=== PATIENT | female | born 1970 | race Caucasian/White ===

== ENCOUNTER → 2017-03-04 | Day surgery (SDC) | payer OTHER ==
[2017-03-01 10:11] VITALS: Ht 157.5 cm; Wt 62.7 kg
[~2017-03-04] VITALS: Ht 157.5 cm; Wt 62.7 kg
[~2017-03-04] MED LIST: 500ML BSSPLUS 0.5ML EPI1:1000 IRRIG ONE; ACETAMINOPHEN 325 MG TAB PO PRN; ASPI81TA28 PO; ATROPINE SULFATE 0.1 MG/ML 5ML SYR IV PRN; ATROPINE SULFATE 1% OP OINT PER APPLICATION CHARGE ONE; ATROPINE SULFATE 1% OP SOLN 2 ML BTL ONE; BSS FLUSH ONE; BUPIVACAINE HCL 0.75% 10 ML AMP/VIAL ONE; BUSP15TA70 PO; CARV25TA PO; CEFAZOLIN SOD 1 GM VIAL ONE; CHOL1TAB42 PO; DEXAMETHASONE SOD INJ 4 MG/ML VIAL ONE; DEXTROSE 50% 50 ML SYR ONE; DIVA250T PO; EpHEDrine SULFATE INJ 50 MG/ML AMP IV PRN; EpINEphrine INJ 1MG/ML AMP 1 MG/ML AMP ONE; FENTANYL CITRATE INJ 50 MCG/1 ML 2 ML VIAL ONE; FERR1TAB23 PO; FURO80TA63 PO; HYALURONIDASE HUMAN 150 UNIT/ML INJ ONE; HYDR-4715 PO; INSDGI SC; LABETALOL HCL IV 5 MG/ML 20ML IV ONE; LACTATED RINGER'S 1000ML 500 ML IV SCH; LIDOCAINE HCL 2% 2 ML VIAL (20MG/ML) ONE; LIDOCAINE HCL 2% LOCAL 20 ML VIAL ONE; LIDOCAINE MPF 4% INJ INJ ONE; MIDAZOLAM HCL 1 MG/ML 2ML VIAL ONE; MULT-506 PO; NEOMYCIN/POLYMYX/DEXAMETH OP OINT PER APP CHARGE ONE; NIFE1TAB55 PO; NORT75CA2 PO; NVLG SQ; OCUCOAT 1 ML SOLN IO ONE; OMEP40CA41 PO; ONDA4TAB46 PO; ONDANSETRON INJ 2 MG/ML 2 ML VIAL ONE; POVIDONE-IODINE OP SOLN (SURGERY CNTR CHARGING ONLY) ONE; PROPARACAINE 0.5% OP SOLN PER DROP CHARGE OPR SCH; PROPOFOL IV EMULSION 10 MG/ML 20 ML VIAL IV ONE; SENN-61 PO; TIMOLOL MALEATE 0.5% OP SOLN PER DROP CHARGE ONE; TRIAMCINOLONE ACETONIDE OPHTH 40 MG/ML VIAL STERILE IO ONE
[2017-03-04] MEDS: PHENYLEPHRINE HCL 2.5% OP SOLN PER DROP CHARGE OPR SCH ×2 (06:38→06:44)
[2017-03-04] MEDS: TROPICAMIDE 1% OP SOLN PER DROP CHARGE OPR SCH ×2 (06:39→06:45)
--- NOTE | 2017-03-04 07:00 | History & Physical Bridge - SC ---
H&P Re-Evaluation Bridge Note: pt has diabetic retinopathy with a retinal detachment in right eye and is here for repair with vitrectomy right eye. I have examined the patient, reviewed the History & Physical and in the interval since the performance of the History & Physical I have noted the following changes of clinical significance: No changes noted
[2017-03-04 09:21] VITALS: TEMP 36.4
--- NOTE | 2017-03-04 09:29 | [facility] Operative Report ---
Operative Report Date of Service Mar 04, 2017. 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 PROCEDURE: 1. Pars plana vitrectomy, 23 gauge. 2. Membrane peeling. 3. Segmentation of traction. 4. Carlos retinal photocoagulation with endolaser. 5. Fluid air exchange. 6. Gas exchange with C3F8 12%. All to the right eye. CPT CODE: 51098 SURGEON: Vu Calixto D.O. COMPLICATIONS: None. ESTIMATED BLOOD LOSS: None. SPECIMENS: None. ANESTHESIA: Retrobulbar block and MAC INDICATIONS FOR PROCEDURE: Surgery is indicated to decrease risk of vision loss and potentially improve vision. CONSENT: The risks, benefits and alternatives were discussed with the patient including but not limited to decreased visual acuity, failure to achieve desired results, loss of the eye, infection, pain, glaucoma, lens changes, retinal tears, retinal detachment, the need for more procedures, drooping of the eyelid, blindness, and double vision. The patient is aware of risks and consents to the surgery. Consent is signed and on the chart. OPERATION AND FINDINGS: The patient was brought to the operating room where the patient was identified by name, date, and medical record number. The surgical site was confirmed with the informed written consent. The patient was sedated by the anesthesiology team after which a 50:50 mixture of 2% lidocaine and 0.75% bupivacaine with hyaluronidase was administered in a standard retrobulbar fashion. A total of 4 ml was administered without difficulty. The patient was then prepped and draped in the usual sterile manner for retinal surgery. A wire lid speculum was placed and an Everett 23-gauge trocar cannula system was employed. The inferior temporal trocar cannula was first placed in an angled fashion 3.75mm posterior to the surgical limbus and the infusion cannula was inserted into this cannula after which the intravitreal position was verified prior to turning the infusion on. Two more trocar cannulas were then inserted in an angled fashion, one in the superior temporal, and one in the superior nasal quadrant both 3.75mm posterior to the surgical limbus. A 25gauge chandelier light was placed inferonasally. A light pipe and vitrector were then introduced into the eye and the BIOM wide angle viewing system was brought into place. Posterior inspection revealed proliferative diabetic retinopathy with extensive tractional retinal detachments in the midperiphery. Standard vitrectomy was performed and the the vitrector was used to segment as much of the vitreous/ diabetic membranes as possible. Next, a flat contact lens was placed on the surface of the eye and forceps and scissors and the vitrector were used to peel and segment the diabetic membranes causing the tractional detachment. The prism lens was also used. Endolaser was used to perform carlos retinal photocoagulation in the areas where the retina was completely flat. Intraocular cautery was used throughout the case to achieve hemostasis. A fluid air exchange was performed and the retinal detachment was drained through a small retinotomy fashioned superior to the arcades. An air gas exchange was performed with C3F8 12% and posterior subTenon's injection of Triescence 20mg was placed inferior temporally. The trocar cannulas were then removed and found to be air tight. The intraocular pressure was found to be within normal limits by palpation and subconjunctival injections of Kefzol and dexamethasone were administered inferiorly and superiorly. The wire lid speculum was removed. Timolol, Maxitrol and Atropine were applied to the surface of the eye. A light patch and shield were taped over the surface of the eye and the patient left the Operating Room in stable condition having tolerated the procedure well. DISPOSITION: The patient has an appointment the following morning in the Ophthalmology Clinic. The patient is to call immediately if there are any problems overnight. A gas bracelet was placed. I attest to the content of the Intraoperative Record and any orders documented therein. Any exceptions are noted below.
--- NOTE | 2017-03-04 09:30 | Discharge Instructions-SurgCtr ---
Discharge Instructions Date of Service Mar 04, 2017. Visit Reason for Visit: Right Eye Diabetic Retinopathy, Retinal Detachment Discharge Discharge Diagnosis / Problem: same Discharge Goals Goal(s): Improve function Medications Stopped Medications Name(s): no insulin this am Activity Recommendations Activity Limitations: per Instructions/Follow-up section Anesthesia . Post Anesthesia Instructions: If you have had General Anesthesia or IV Sedation: * Do not drive today. * Resume driving when surgeon permits. * Do not make important decisions or sign legal documents today. * Call surgeon for: 1. Temperature elevations greater than 101 degrees F. 2. Uncontrollable pain. 3. Excessive bleeding. 4. Persistent nausea and vomiting. 5. Medication intolerance (nausea, vomiting or rash). * For nausea and vomiting use only clear liquids such as: tea, soda, bouillon until nausea subsides, then gradually increase diet as tolerated. * If you have any concerns or questions, call your surgeon's office. If physician is unavailable and it is an emergency, call 911 or go to the nearest emergency room. . Instructions / Follow-Up Instructions / Follow-Up * May take Tylenol if needed for discomfort. * Do NOT lay flat on back and position head as follows: Face forward, chin down during daytime as much as possible. Sleep on either side * Do NOT remove green bracelet until instructed to do so by your surgeon and follow these precautions: * No air travel * No travel above 2500 feet * No nitrous oxide (N2O). * Do NOT remove eye shield. * NO straining, heavy lifting (>15 pounds) or bending below waist. * Avoid getting water or soap directly into operative eye. * Do NOT rub eye. If you experience increasing eye pain not relieved by medication, please contact us immediately at [phone]. If you are unable to reach someone at the above number, call [phone] and ask to speak with the EYE DOCTOR CANCER SPEC. Inform them that you are a Dr. Calixto patient who had recent surgery. Diet Recommendations Home Diet: resume previous diet Procedures Procedures Performed: Right Eye Vitrectomy 23 Gauge With Laser & Gas Insertion, Membrane Peeling, Segmentation Pending Studies Studies pending at discharge: no Medical Emergencies . Who to Call and When: Medical Emergencies: If at any time you feel your situation is an emergency, please call 911 immediately. . Non-Emergent Contact Non-Emergency issues call your: Warping Machine Operator . . "Provider Documentation" section prepared by Vu Calixto. .
[2017-03-04 10:03] VITALS: BP 155/84; PULSE 66; O2SAT 98
--- NOTE | 2017-03-04 10:14 | Anesthesia Progress Nt - [facility] ---
Anesthesia Post Op Note Date & Time Mar 04, 2017 at 10:14 Vital Signs Pain Intensity: 2 Vital Signs Past 12 Hours Date Time Temp Pulse Resp B/P (MAP) Pulse Ox O2 Delivery O2 Flow Rate FiO2 03/04/17 10:03 66 16 155/84 (107) 98 Room Air 03/04/17 09:21 36.4 73 16 198/81 (120) 99 Room Air 03/04/17 06:29 36.9 99 16 157/74 (101) 99 Room Air Notes Mental Status: alert / awake / arousable, participated in evaluation Pt Amnestic to Procedure: Yes Nausea / Vomiting: adequately controlled Pain: adequately controlled Airway Patency, RR, SpO2: stable & adequate BP & HR: stable & adequate Hydration State: stable & adequate Anesthetic Complications: no major complications apparent
== END | disposition home or self-care (01) ==
LOC: X.SURG 06:10
PROVIDERS: ATTEND Ophthalmology
DX: E10.3531 Type 1 diabetes mellitus with proliferative diabetic retinopathy with traction retinal detachment not involving the macula, right eye (principal); E10.40 Type 1 diabetes mellitus with diabetic neuropathy, unspecified; E10.22 Type 1 diabetes mellitus with diabetic chronic kidney disease; K31.84 Gastroparesis; E10.43 Type 1 diabetes mellitus with diabetic autonomic (poly)neuropathy; I25.10 Atherosclerotic heart disease of native coronary artery without angina pectoris; I50.32 Chronic diastolic (congestive) heart failure; I13.0 Hypertensive heart and chronic kidney disease with heart failure and stage 1 through stage 4 chronic kidney disease, or unspecified chronic kidney disease; N18.4 Chronic kidney disease, stage 4 (severe); D63.1 Anemia in chronic kidney disease; E78.5 Hyperlipidemia, unspecified; J44.1 Chronic obstructive pulmonary disease with (acute) exacerbation; J96.01 Acute respiratory failure with hypoxia; E55.9 Vitamin D deficiency, unspecified; D50.9 Iron deficiency anemia, unspecified; K21.9 Gastro-esophageal reflux disease without esophagitis; E87.0 Hyperosmolality and hypernatremia; F31.9 Bipolar disorder, unspecified; Z87.891 Personal history of nicotine dependence; Z79.4 Long term (current) use of insulin; Z79.82 Long term (current) use of aspirin; Z79.899 Other long term (current) drug therapy

== ENCOUNTER 2017-09-09 15:20 | Inpatient (IN) | payer OTHER ==
[~2017-09-09] VITALS: Ht 157.5 cm; Wt 71.8 kg
[~2017-09-09 15:20] MED LIST changes: -500ML BSSPLUS 0.5ML EPI1:1000 IRRIG ONE; -ACETAMINOPHEN 325 MG TAB PO PRN; -ATROPINE SULFATE 0.1 MG/ML 5ML SYR IV PRN; -ATROPINE SULFATE 1% OP OINT PER APPLICATION CHARGE ONE; -ATROPINE SULFATE 1% OP SOLN 2 ML BTL ONE; -BSS FLUSH ONE; -BUPIVACAINE HCL 0.75% 10 ML AMP/VIAL ONE; -CEFAZOLIN SOD 1 GM VIAL ONE; -DEXAMETHASONE SOD INJ 4 MG/ML VIAL ONE; -DEXTROSE 50% 50 ML SYR ONE; -EpHEDrine SULFATE INJ 50 MG/ML AMP IV PRN; -EpINEphrine INJ 1MG/ML AMP 1 MG/ML AMP ONE; -FENTANYL CITRATE INJ 50 MCG/1 ML 2 ML VIAL ONE; -HYALURONIDASE HUMAN 150 UNIT/ML INJ ONE; -LABETALOL HCL IV 5 MG/ML 20ML IV ONE; -LACTATED RINGER'S 1000ML 500 ML IV SCH; -LIDOCAINE HCL 2% 2 ML VIAL (20MG/ML) ONE; -LIDOCAINE HCL 2% LOCAL 20 ML VIAL ONE; -LIDOCAINE MPF 4% INJ INJ ONE; -MIDAZOLAM HCL 1 MG/ML 2ML VIAL ONE; -NEOMYCIN/POLYMYX/DEXAMETH OP OINT PER APP CHARGE ONE; -NIFE1TAB55 PO; +NIFE60TA66 PO; -OCUCOAT 1 ML SOLN IO ONE; -ONDANSETRON INJ 2 MG/ML 2 ML VIAL ONE; -POVIDONE-IODINE OP SOLN (SURGERY CNTR CHARGING ONLY) ONE; -PROPARACAINE 0.5% OP SOLN PER DROP CHARGE OPR SCH; -PROPOFOL IV EMULSION 10 MG/ML 20 ML VIAL IV ONE; -TIMOLOL MALEATE 0.5% OP SOLN PER DROP CHARGE ONE; -TRIAMCINOLONE ACETONIDE OPHTH 40 MG/ML VIAL STERILE IO ONE
--- NOTE | 2017-09-09 15:47 | DIAGNOSTIC IMAGING REPORT ---
CHEST ONE VIEW PORTABLE CLINICAL HISTORY: 47 years-old Female presenting with cp. TECHNIQUE: Portable upright AP view of the chest was obtained. COMPARISON: None. FINDINGS: Cardiopericardial silhouette mildly enlarged allowing for portable technique. No focal opacity. No large effusion or pneumothorax. Osseous structures normal. Upper abdomen normal. IMPRESSION: 1. Cardiopericardial silhouette mildly enlarged allowing for portable technique. This could indicate cardiomegaly or be artifactual related to AP technique. Dedicated PA and lateral views to be considered if clinically indicated. Electronically signed by: Trey Jones M.D. 09/09/2017 3:46 PM Dictated Date/Time: 09/09/2017 3:45 PM
[2017-09-09 16:30] LABS: BASO % 0.6 %; BASO ABS # 0.04 K/uL (0-0.2); EOS ABS # 0.07 K/uL (0-0.5); HEMATOCRIT 24.4 % (37-47); HEMOGLOBIN 8.4 g/dL (12.0-16.0); IG# 0.05 K/uL (0.00-0.02); LYMPH % 24.6 %; LYMPH ABS # 1.71 K/uL (1.2-3.4); MEAN CELL VOLUME 86.2 fL (80-100); MEAN CORPUSCULAR HEMOGLOBIN 29.7 pg (25-34); MEAN CORPUSCULAR HGB CONC 34.4 g/dl (32-36); MEAN PLATELET VOLUME 10.3 fL (7.4-10.4); MONO % 9.1 %; MONO ABS # 0.63 K/uL (0.11-0.59); NEUT ABS # 4.44 K/uL (1.4-6.5); PLATELET COUNT 302 K/uL (130-400); RED CELL DISTRIBUTION WIDTH SD 41.7 fL (36.4-46.3); WHITE BLOOD COUNT 6.94 K/uL (4.8-10.8)
[2017-09-09 16:40] LABS: PTT PATIENT 27.5 SECONDS (21.0-31.0)
[2017-09-09] MEDS ORDERED: DIVA500T59 PO (16:40)
[2017-09-09] MEDS ORDERED: ASPCH81X PO (16:40)
[2017-09-09] MEDS ORDERED: ATOR-24 PO (16:40)
[2017-09-09] MEDS ORDERED: HYDR-4716 PO (16:40)
[2017-09-09] MEDS ORDERED: FLUT1INH7 INH (16:40)
[2017-09-09] MEDS ORDERED: AMLO-114 PO (16:48)
[2017-09-09] MEDS ORDERED: CHOL20007 PO (16:48)
[2017-09-09] MEDS ORDERED: SUCR1TAB PO (16:48)
[2017-09-09] MEDS ORDERED: OXYC-609 PO (16:48)
[2017-09-09] MEDS ORDERED: PANT1TAB3 PO (16:48)
[2017-09-09] MEDS ORDERED: MULTTAB PO (16:48)
[2017-09-09] MEDS ORDERED: SODIENE PR (16:56)
[2017-09-09] MEDS ORDERED: POLY335019 PO (16:56)
[2017-09-09] MEDS ORDERED: DOCU100C31 PO (16:56)
[2017-09-09] MEDS ORDERED: DEXT40GE20 PO (16:56)
[2017-09-09] MEDS ORDERED: MOML PO (16:56)
[2017-09-09] MEDS ORDERED: SENN-65 PO (16:56)
[2017-09-09] MEDS ORDERED: BISA10SU5 PR (16:56)
[2017-09-09] MEDS ORDERED: INSDGIPEN SC (17:02)
[2017-09-09] MEDS ORDERED: GLGKIT SC (17:04)
[2017-09-09] MEDS ORDERED: ACET-1256 PO (17:04)
[2017-09-09] MEDS ORDERED: ALBU18002 INH (17:05)
[2017-09-09 17:06] LABS: CALCIUM 8.5 mg/dl (8.5-10.1); CREATININE 4.46 mg/dl (0.60-1.20); POTASSIUM 5.7 mmol/L (3.5-5.1)
[2017-09-09] MEDS ORDERED: NovoLIN-R INSULIN PER UNIT CHARGE IV STA (17:14)
[2017-09-09] MEDS ORDERED: MoRPHine SULFATE 2 MG/ML CARP IV STA (17:14)
[2017-09-09] MEDS ORDERED: ONDANSETRON INJ 2 MG/ML 2 ML VIAL IV PRN (18:00)
[2017-09-09] MEDS ORDERED: INSULIN IV INFUSION PROTOCOL SCH (18:06)
[2017-09-09] MEDS ORDERED: insulin pump (18:10)
[2017-09-09] MEDS ORDERED: PHARMACY GLYCEMIC MGMT CONSULT PRN (18:10)
[2017-09-09] MEDS ORDERED: DOCUSATE SODIUM 100 MG CAP PO PRN (18:15)
[2017-09-09] MEDS ORDERED: INSULIN PROTOCOL GOAL RANGE ONE (18:15)
[2017-09-09] MEDS ORDERED: SEVERE STRESS LEVEL ONE (18:15)
[2017-09-09] MEDS ORDERED: POLYETHYLENE (MIRALAX) 17 GM PACK PO PRN (18:15)
[2017-09-09] MEDS ORDERED: INSULIN REGULAR 250 UNITS in SODIUM CHLORIDE 0.9% 250ML 250 ML IV SCH (18:45)
[2017-09-09] MEDS ORDERED: NovoLIN R BOLUS FROM BAG IV ONE (18:45)
--- NOTE | 2017-09-09 19:29 | History and Physical ---
History & Physical Date & Time of Service: Sep 09, 2017 ~ 17:30 Chief Complaint: Hyperglycemcia Primary Care Physician: Mitchel Santo M.D. History of Present Illness Source: patient 47-year-old female who presents to the ED with hyperglycemia. She is currently at [facility] for rehab from a recent stroke. Patient was admitted to [facility] 08/26 through 09/03 for acute CVA. 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 Patient did receive TPA. Patient is a type I diabetic with insulin pump. Patient reports that approximately 4 days ago her insulin pump cartridge had run out. She is being treated with subcu insulin over the weekend at [facility]. However blood sugars have been persistently elevated in the 4-500s. Patient reports intermittent episodes of midsternal chest pain. She reports that this typically occurs whenever her blood sugar is extremely elevated. She reports the chest pain is brief and resolves on its own. No exertional components. She denies shortness of breath and palpitations. She denies lightheadedness, dizziness, diaphoresis, and syncopal events. She has had some mild nausea but she denies any vomiting, abdominal pain or diarrhea. She denies any fever or chills. No urinary symptoms. In the ED, patient's blood sugars found to be 474. She was given IV insulin. Initial troponin is negative and EKG does not show any acute ST changes. Past Medical/Surgical History Medical Problems: (1) Anemia due to chronic kidney disease Status: Chronic (2) Bipolar disorder Status: Chronic (3) CKD (chronic kidney disease), stage IV Status: Chronic (4) Coronary artery disease Permanent Comment: 2015 - cardiac catheterization showing nonobstructive coronary disease Stress test 06/2017 - possible small area of ischemia in the anterior wall Status: Chronic (5) CVA (cerebral vascular accident) Status: Chronic (6) Depression Status: Chronic (7) Diabetic gastroparesis Status: Chronic (8) Diastolic heart failure Status: Chronic (9) DM type 1 (diabetes mellitus, type 1) Status: Chronic (10) GERD (gastroesophageal reflux disease) Status: Chronic (11) History of GI bleed Status: Chronic (12) Hyperlipidemia Status: Chronic (13) Hypertension Status: Chronic (14) Seizure Status: Chronic Surgical Problems: (1) Hx of appendectomy Status: Chronic (2) Hx of cholecystectomy Status: Chronic (3) Hx of tubal ligation Status: Chronic Family History Diabetes mellitus FATHER Hypertension MOTHER Social History Smoking Status: Former Smoker Alcohol Use: none Immunizations History of Influenza Vaccine: Yes Influenza Vaccine Date: Feb 15, 2017 History of Tetanus Vaccine?: Yes Tetanus Immunization Date: Feb 15, 2017 History of Pneumococcal: Yes Pneumococcal Date: Feb 21, 2017 Allergies Coded Allergies: Fish (Verified Allergy, Mild, hives, 03/04/17) Latex (Verified Allergy, Mild, hives, 03/04/17) Home Medications Scheduled Amlodipine (Norvasc), 10 MG PO DAILY Aspirin (Aspirin Chewable), 81 MG PO DAILY Atorvastatin (Lipitor), 40 MG PO DAILY Carvedilol (Coreg), 25 MG PO BIDM Cholecalciferol (Vitamin D3), 2,000 INTER.UNIT PO DAILY Divalproex Sodium (Depakote), 500 MG PO Q12 Ferrous Sulfate (Iron), 325 MG PO TIDM Fluticasone Furoate-Vilanterol (Breo Ellipta 200-25 Mcg/INH), 1 PUFF INH DAILY Hydralazine HCl (Hydralazine HCl), 50 MG PO QID Insulin Aspart (Novolog), 1 DOSE SQ QID Insulin Glargine (Lantus Solostar), 10 UNITS SC BID Multivitamins/Minerals (Mvi With Minerals), 1 TAB PO DAILY Nortriptyline Hcl (Pamelor), 75 MG PO HS Pantoprazole (Protonix), 40 MG PO DAILY Sennosides-Docusate Sodium (Senokot S), 1 TAB PO DAILY Sucralfate (Sucralfate), 1 GM PO DAILY Scheduled PRN Acetaminophen (Tylenol), 500 MG PO Q4H PRN for Pain Albuterol Sulfate (Proair Respiclick), 2 PUFFS INH Q4H PRN for Wheezing Bisacodyl (Bisacodyl), 1 SUPP PA DAILY PRN for Constipation Dextrose (Diabetic Use) (Glucose), 1 TUBE PO UD PRN for Hypoglycemia Protocol Docusate Sodium (Docusate Sodium), 100 MG PO BID PRN for Constipation Glucagon (Glucagon Emergency Kit), 1 MG SC UD PRN for Hypoglycemia Protocol Magnesium Hydroxide (Milk Of Magnesia), 30 ML PO DAILY PRN for Constipation Ondansetron Hcl (Zofran), 4 MG PO Q8 PRN for Nausea or Vomiting Oxycodone HCl (Oxycodone HCl), 2.5 MG PO Q8 PRN for Pain Polyethylene Glycol 3350 (Miralax), 17 GM PO DAILY PRN for Constipation Sodium Phosphate/Biphosphate (Fleet Enema), 1 EA PA DAILY PRN for Constipation Miscellaneous Medications [insulin pump] Review of Systems ROS per HPI, all other systems reviewed and negative Physical Exam Vital Signs Date Time Temp Pulse Resp B/P (MAP) Pulse Ox O2 Delivery O2 Flow Rate FiO2 09/09/17 17:45 69 146/62 09/09/17 16:55 66 149/62 100 09/09/17 15:27 68 09/09/17 15:25 36.7 67 139/65 100 Room Air General Appearance: WD/WN, no apparent distress Head: normocephalic, atraumatic Eyes: normal inspection, EOMI, sclerae normal ENT: hearing grossly normal, + pertinent finding (Mucous membranes moist) Neck: supple, no JVD, trachea midline Respiratory/Chest: lungs clear, normal breath sounds, no respiratory distress Cardiovascular: regular rate, rhythm, no edema, normal peripheral pulses Abdomen/GI: normal bowel sounds, non tender, soft, no organomegaly Extremities/Musculoskelatal: normal inspection, no calf tenderness, normal capillary refill Neurologic/Psych: no motor/sensory deficits, alert, normal mood/affect, oriented x 3 Skin: normal color, warm/dry Diagnostics Laboratory Results Results Past 24 Hours Test 09/09/17 16:10 09/09/17 16:16 09/09/17 17:05 09/09/17 17:22 Range/Units White Blood Count 6.94 4.8-10.8 K/uL Red Blood Count 2.83 4.2-5.4 M/uL Hemoglobin 8.4 12.0-16.0 g/dL Hematocrit 24.4 37-47 % Mean Corpuscular Volume 86.2 80-100 fL Mean Corpuscular Hemoglobin 29.7 25-34 pg Mean Corpuscular Hemoglobin Concent 34.4 32-36 g/dl Platelet Count 302 130-400 K/uL Mean Platelet Volume 10.3 7.4-10.4 fL Neutrophils (%) (Auto) 64.0 % Lymphocytes (%) (Auto) 24.6 % Monocytes (%) (Auto) 9.1 % Eosinophils (%) (Auto) 1.0 % Basophils (%) (Auto) 0.6 % Neutrophils # (Auto) 4.44 1.4-6.5 K/uL Lymphocytes # (Auto) 1.71 1.2-3.4 K/uL Monocytes # (Auto) 0.63 0.11-0.59 K/uL Eosinophils # (Auto) 0.07 0-0.5 K/uL Basophils # (Auto) 0.04 0-0.2 K/uL RDW Standard Deviation 41.7 36.4-46.3 fL RDW Coefficient of Variation 13.0 11.5-14.5 % Immature Granulocyte % (Auto) 0.7 % Immature Granulocyte # (Auto) 0.05 0.00-0.02 K/uL Red Blood Cell Morphology Unremarkable Prothrombin Time 10.0 9.0-12.0 SECONDS Prothromb Time International Ratio 1.0 0.9-1.1 Activated Partial Thromboplast Time 27.5 21.0-31.0 SECONDS Partial Thromboplastin Ratio 1.1 Venous Blood pH 7.32 7.36-7.41 Venous Blood Partial Pressure CO2 43 38.0-50.0 mmHg Venous Blood Partial Pressure O2 42 mmHg Venous Blood HCO3 22 mmol/L Venous Blood Oxygen Saturation 71.9 % Venous Blood Base Excess -3.8 mEq/L Sodium Level 128 136-145 mmol/L Potassium Level 5.7 3.5-5.1 mmol/L Chloride Level 96 98-107 mmol/L Carbon Dioxide Level 20 21-32 mmol/L Anion Gap 12.0 3-11 mmol/L Blood Urea Nitrogen 67 7-18 mg/dl Creatinine 4.46 0.60-1.20 mg/dl Est Creatinine Clear Calc Drug Dose 14.0 ml/min Estimated GFR () 12.6 Estimated GFR (Non- 10.8 BUN/Creatinine Ratio 14.9 10-20 Random Glucose 474 70-99 mg/dl Calcium Level 8.5 8.5-10.1 mg/dl Beta-Hydroxybutyric Acid 0.90 0.2-2.81 mg/dL Bedside Troponin I < 0.030 0-0.045 ng/ml Urine Color YELLOW Urine Appearance CLEAR CLEAR Urine pH 5.0 4.5-7.5 Urine Specific [place] 1.020 1.000-1.030 Urine Protein 3+ NEG Urine Glucose (UA) 3+ NEG Urine Ketones NEG NEG Urine Occult Blood NEG NEG Urine Nitrite NEG NEG Urine Bilirubin NEG NEG Urine Urobilinogen NEG NEG Urine Leukocyte Esterase NEG NEG Urine WBC (Auto) 1-5 0-5 /hpf Urine RBC (Auto) 0-4 0-4 /hpf Urine Hyaline Casts (Auto) 1-5 0-5 /lpf Urine Epithelial Cells (Auto) >30 0-5 /lpf Urine Bacteria (Auto) NEG NEG Diagnostic Radiology CXR IMPRESSION: 1. Cardiopericardial silhouette mildly enlarged allowing for portable technique. This could indicate cardiomegaly or be artifactual related to AP technique. Dedicated PA and lateral views to be considered if clinically indicated. Impression Assessment and Plan Hyperglycemia Uncontrolled diabetes type 1 -Admit to telemetry -Patient presenting from [facility] for hyperglycemia for the past 3 days, patient is a type I diabetic with insulin pump however has been malfunctioning over the weekend -In the ED patient's blood sugars found to be 474 -No signs of DKA -Will start IV insulin drip -Patient follows with endocrinology at [facility], may need to coordinate care with them -Hgb A1c 9.9 06/2017 Chest pain -Seems atypical -Initial troponin negative, EKG without acute ST changes -Cardiac cath 2015 shows nonobstructive coronary disease -Stress test 06/2017 showed a possible small area of ischemia in the anterior wall -Will continue to cycle cardiac enzymes -Continue aspirin, statin, beta-wiley GEOVANI on CKD stage IV -Likely prerenal dehydration due to severe hyperglycemia -IVF, follow renal functions -Patient's baseline creatinine runs around 3.5, does have a fistula in place however has not started dialysis yet Hyperkalemia -K+ 5.7 -No acute T-wave changes -Should improve with IV insulin and IV hydration Pseudohyponatremia -Due to profound hyperglycemia -Corrected sodium 134 Recent CVA -Continue aspirin and statin History of seizures -Continue Depakote Hypertension -BP controlled, continue amlodipine, hydralazine, carvedilol Anemia due to CKD -Baseline hemoglobin runs around 7-8 -Hemoglobin noted to be 8.4 today DVT prophylaxis -SQ heparin CODE STATUS -Patient is a full code as per my discussion with her Disposition -In my clinical judgment this beneficiary meets acute admission criteria, established by [facility], that includes being hospitalized through two midnights. Attending Note: Patient is a 47 yr female with multiple problems presents [facility] for management of hyperglycemia. Patient was recently treated for acute CVA and had residual right sided weakness and dysarthria. Patient has type I DM and she ran out of Insulin 4 days ago. Patient was unable to be controlled with SQ insulin and so was sent to [facility] for further management. She reports having intermittent chest pain radiating to shoulder. Also reports RLQ abdominal pain and flank pain since hospitalization for acute CVA which she attributes to be secondary to recent UTI. Physical Exam: Vitals signs as noted above General Appearance:Moderately built and nourished, no apparent distress Head: normocephalic, Atraumatic Eyes: normal inspection, EOMI, PERRL Neck: supple, Trachea midline Respiratory/Chest: Normal breath sounds, CTA Cardiovascular: S1, S2, No murmur Abdomen/GI:Soft, RLQ and R flank tender, Bowel sounds present Extremities/Musculoskelatal:normal inspection, no edema Neurologic/Psych:AAOX3, Right UE and R LE weakness 4/5. +Dysarthria Skin:normal color,warm Assessment and Plan: Uncontrolled DM type I Started on Insulin Pump Anion gap near normal on presentation, repeat: normalized Hyperkalemia improved with Insulin therapy Factitious Hyponatremia secondary to Hyperglycemia Monitor electrolytes RLQ abdominal pain; Check Abdominal USD Chest Pain R/O ACS: Troponin negative EKG: no acute signs of ischemia check ECHO continue home meds GEOVANI on CKD IV: May need dialysis if no improvement with conservative management Nephrology consulted I personally reviewed the record. Patient is interviewed and examined at bedside. Patient's care is coordinated with Melissa Wood INFORMATICA DEVELOPER. Please refer to the documentation above for details of patient's presentation and for discussion of other issues. Resuscitation Status VTE Prophylaxis Will order VTE Prophylaxis: Yes
--- NOTE | 2017-09-09 19:53 | EMERGENCY ROOM VISIT NOTE ---
History Report prepared by Amanda: David Melton Under the Supervision of: Dr. Ruperto Pierce M.D. First contact with patient: 15:22 Chief Complaint: HYPERGLYCEMIA Stated Complaint: HYPERGLYCEMCIA History of Present Illness The patient is a 47 year old female who presents to the Emergency Room by EMS with complaints of constant hyperglycemia beginning three days ago. She was brought to the ED from [facility] (for which she is there for a stroke). She is an insulin dependent diabetic and uses an insulin pump. The patient states that her pump ran out of insulin over the weekend, which is why her blood sugar got so high. She states that she found her blood sugar to be over 600. She was given insulin today at [facility]. The patient notes that she has a history of speech problems and right sided weakness due to her stroke. She recently had a fistula placed as well, and is scheduled to start dialysis soon. The patient also complains of intermittent chest pain beginning three days ago. She states "it feels like someone is sitting on my chest". She currently has no pain. The patient also complains of diaphoresis and shortness of breath when her chest pain is present. She denies fevers, vomiting, cough, diarrhea, urinary symptoms , or abdominal pain. Source of History: patient Onset: Three days ago Symptom Intensity: Blood sugar above 600 Quality: other (hyperglycemia) Timing: constant Associated Symptoms: + diaphoresis (along with chest pain), + chest pain ( intermittent, three days ago), + SOB (along with chest pain), No fevers, No cough, No vomiting, No abdominal pain, No diarrhea, No urinary symptoms Review of Systems See HPI for pertinent positives & negatives. A total of 10 systems reviewed and were otherwise negative. Past Medical & Surgical Medical Problems: (1) Anemia due to chronic kidney disease (2) Bipolar disorder (3) CKD (chronic kidney disease), stage IV (4) Coronary artery disease (5) CVA (cerebral vascular accident) (6) Depression (7) Diabetic gastroparesis (8) Diastolic heart failure (9) DM type 1 (diabetes mellitus, type 1) (10) GERD (gastroesophageal reflux disease) (11) History of GI bleed (12) Hyperlipidemia (13) Hypertension (14) Seizure Surgical Problems: (1) Hx of appendectomy (2) Hx of cholecystectomy (3) Hx of tubal ligation Family History No pertinent family history stated. Social History Smoking Status: Never Smoker Current/Historical Medications Scheduled Amlodipine (Norvasc), 10 MG PO DAILY Aspirin (Aspirin Chewable), 81 MG PO DAILY Atorvastatin (Lipitor), 40 MG PO DAILY Carvedilol (Coreg), 25 MG PO BIDM Cholecalciferol (Vitamin D3), 2,000 INTER.UNIT PO DAILY Divalproex Sodium (Depakote), 500 MG PO Q12 Ferrous Sulfate (Iron), 325 MG PO TIDM Fluticasone Furoate-Vilanterol (Breo Ellipta 200-25 Mcg/INH), 1 PUFF INH DAILY Hydralazine HCl (Hydralazine HCl), 50 MG PO QID Insulin Aspart (Novolog), 1 DOSE SQ QID Insulin Glargine (Lantus Solostar), 10 UNITS SC BID Multivitamins/Minerals (Mvi With Minerals), 1 TAB PO DAILY Nortriptyline Hcl (Pamelor), 75 MG PO HS Pantoprazole (Protonix), 40 MG PO DAILY Sennosides-Docusate Sodium (Senokot S), 1 TAB PO DAILY Sucralfate (Sucralfate), 1 GM PO DAILY Scheduled PRN Acetaminophen (Tylenol), 500 MG PO Q4H PRN for Pain Albuterol Sulfate (Proair Respiclick), 2 PUFFS INH Q4H PRN for Wheezing Bisacodyl (Bisacodyl), 1 SUPP WA DAILY PRN for Constipation Dextrose (Diabetic Use) (Glucose), 1 TUBE PO UD PRN for Hypoglycemia Protocol Docusate Sodium (Docusate Sodium), 100 MG PO BID PRN for Constipation Glucagon (Glucagon Emergency Kit), 1 MG SC UD PRN for Hypoglycemia Protocol Magnesium Hydroxide (Milk Of Magnesia), 30 ML PO DAILY PRN for Constipation Ondansetron Hcl (Zofran), 4 MG PO Q8 PRN for Nausea or Vomiting Oxycodone HCl (Oxycodone HCl), 2.5 MG PO Q8 PRN for Pain Polyethylene Glycol 3350 (Miralax), 17 GM PO DAILY PRN for Constipation Sodium Phosphate/Biphosphate (Fleet Enema), 1 EA WA DAILY PRN for Constipation Miscellaneous Medications [insulin pump] Allergies Coded Allergies: Fish (Verified Allergy, Mild, hives, 03/04/17) Latex (Verified Allergy, Mild, hives, 03/04/17) Physical Exam Vital Signs Date Time Temp Pulse Resp B/P (MAP) Pulse Ox O2 Delivery O2 Flow Rate FiO2 09/09/17 17:45 69 146/62 09/09/17 16:55 66 149/62 100 09/09/17 15:27 68 09/09/17 15:25 36.7 67 139/65 100 Room Air Physical Exam Constitutional: Vital signs reviewed. Eyes: Pupils are equal round reactive to light. Conjunctiva are noninjected. ENT: Pharynx is clear without erythema or exudate. Mucous membranes are moist. Neck supple without meningeal signs. Respiratory: Clear to auscultation bilaterally. Breath sounds are equal bilaterally. Cardiovascular: Regular rate and rhythm. No rubs or gallops. GI: Soft, nondistended and nontender. Bowel sounds are present. Musculoskeletal: No peripheral edema. No lower extremity tenderness. AV fistula in right wrist with palpable thrill. Integumentary: No cyanosis. Neurological: The patient is awake and alert. Right sided weakness and mild expressive aphasia. Psychiatric: Normal affect. Medical Decision & Procedures ER Provider Diagnostic Interpretation: Radiology results as stated below per my review and the radiologist's interpretation: CHEST ONE VIEW PORTABLE FINDINGS: Cardiopericardial silhouette mildly enlarged allowing for portable technique. No focal opacity. No large effusion or pneumothorax. Osseous structures normal. Upper abdomen normal. IMPRESSION: 1. Cardiopericardial silhouette mildly enlarged allowing for portable technique. This could indicate cardiomegaly or be artifactual related to AP technique. Dedicated PA and lateral views to be considered if clinically indicated. Electronically signed by: Trey Jones M.D. 09/09/2017 3:46 PM Laboratory Results 09/09/17 16:10 Red Blood Count 2.83, Mean Corpuscular Volume 86.2, Mean Corpuscular Hemoglobin 29.7, Mean Corpuscular Hemoglobin Concent 34.4, Mean Platelet Volume 10.3, Neutrophils (%) (Auto) 64.0, Lymphocytes (%) (Auto) 24.6, Monocytes (%) (Auto) 9.1, Eosinophils (%) (Auto) 1.0, Basophils (%) (Auto) 0.6, Neutrophils # (Auto) 4.44, Lymphocytes # (Auto) 1.71, Monocytes # (Auto) 0.63, Eosinophils # (Auto) 0.07, Basophils # (Auto) 0.04 09/09/17 16:10 Test 09/09/17 16:10 09/09/17 16:16 09/09/17 17:05 09/09/17 17:22 White Blood Count 6.94 K/uL (4.8-10.8) Red Blood Count 2.83 M/uL (4.2-5.4) Hemoglobin 8.4 g/dL (12.0-16.0) Hematocrit 24.4 % (37-47) Mean Corpuscular Volume 86.2 fL (80-100) Mean Corpuscular Hemoglobin 29.7 pg (25-34) Mean Corpuscular Hemoglobin Concent 34.4 g/dl (32-36) Platelet Count 302 K/uL (130-400) Mean Platelet Volume 10.3 fL (7.4-10.4) Neutrophils (%) (Auto) 64.0 % Lymphocytes (%) (Auto) 24.6 % Monocytes (%) (Auto) 9.1 % Eosinophils (%) (Auto) 1.0 % Basophils (%) (Auto) 0.6 % Neutrophils # (Auto) 4.44 K/uL (1.4-6.5) Lymphocytes # (Auto) 1.71 K/uL (1.2-3.4) Monocytes # (Auto) 0.63 K/uL (0.11-0.59) Eosinophils # (Auto) 0.07 K/uL (0-0.5) Basophils # (Auto) 0.04 K/uL (0-0.2) RDW Standard Deviation 41.7 fL (36.4-46.3) RDW Coefficient of Variation 13.0 % (11.5-14.5) Immature Granulocyte % (Auto) 0.7 % Immature Granulocyte # (Auto) 0.05 K/uL (0.00-0.02) Red Blood Cell Morphology Unremarkable Prothrombin Time 10.0 SECONDS (9.0-12.0) Prothromb Time International Ratio 1.0 (0.9-1.1) Activated Partial Thromboplast Time 27.5 SECONDS (21.0-31.0) Partial Thromboplastin Ratio 1.1 Venous Blood pH 7.32 (7.36-7.41) Venous Blood Partial Pressure CO2 43 mmHg (38.0-50.0) Venous Blood Partial Pressure O2 42 mmHg Venous Blood HCO3 22 mmol/L Venous Blood Oxygen Saturation 71.9 % Venous Blood Base Excess -3.8 mEq/L Anion Gap 12.0 mmol/L (3-11) Est Creatinine Clear Calc Drug Dose 14.0 ml/min Estimated GFR () 12.6 Estimated GFR (Non- 10.8 BUN/Creatinine Ratio 14.9 (10-20) Calcium Level 8.5 mg/dl (8.5-10.1) Bedside Troponin I < 0.030 ng/ml (0-0.045) Urine WBC (Auto) 1-5 /hpf (0-5) Urine RBC (Auto) 0-4 /hpf (0-4) Urine Hyaline Casts (Auto) 1-5 /lpf (0-5) Urine Epithelial Cells (Auto) >30 /lpf (0-5) Urine Bacteria (Auto) NEG (NEG) Laboratory results as reviewed by me. Medications Administered Medications (Trade) Dose Ordered Sig/Latasha Route Start Time Stop Time Status Last Admin Dose Admin Morphine Sulfate (MoRPHine SULFATE INJ) 2 mg NOW STAT IV 09/09/17 17:14 09/09/17 17:16 DC 09/09/17 17:30 2 MG Insulin Human Regular (novoLIN-R U-100 PER UNIT) 7 units NOW STAT IV 09/09/17 17:14 09/09/17 17:16 DC 09/09/17 17:31 7 UNITS ECG Per My Interpretation Indication: chest pain Rate (beats per minute): 66 Rhythm: sinus rhythm Findings: 1st degree AV block, Q waves (Septal) Change: Repeat ECG shows a normal sinus rhythm with a rate of [address] elevations seen. Q-wave noted in the septal leads. No change from prior ECG. ED Course 1523: The patient was evaluated in room C5. A complete history and physical exam was performed. 1710: I reassessed the patient. She began having chest pain which radiates to her right arm a few minutes ago. A repeat ECG was obtained. 1714: Ordered Novolin-R U-100 per unit 7 units IV, Morphine Sulfate 2 mg IV. 1720: Upon reevaluation, the patient is resting. I discussed tonight's findings with her. She verbalized agreement of the treatment plan. The patient will be evaluated for further management. 1850: I checked in on the patient. Her chest pain is completely gone. Medical Decision This is a 47-year-old female who presents with hyperglycemia and chest pain. Differential diagnosis includes unstable angina, IA, pleurisy, GERD, pneumonia, DKA. I did perform a limited focused review of portions of the patient's old chart on the electronic medical record. The patient has had no recent pertinent visits to this hospital. I did evaluate the patient as noted above. The patient is presenting with hyperglycemia. She states that her blood sugars have been running 600 over the weekend. The nurse states that her insulin pump ran out of insulin and it was not replaced by the staff. She also states that she has been having chest pain over the weekend described as someone sitting on her chest with shortness of breath and diaphoresis associated with it. It has been intermittent and currently states there is no pain. IV access was established. The patient was placed on a continuous media monitor. I did order and personally review the patient's 12-lead EKG and chest x-ray as described above. I did order and review the patient's blood work as noted in the electronic medical record. Troponin is negative. Her blood sugar is over 400. She does have hyperkalemia. Her creatinine is elevated as well but she has a history of kidney diseases and is scheduled for dialysis. She also has anemia. I do not have a baseline to compare this was. It is possibly related to her chronic renal disease. While in the emergency department she developed chest pain. She was given IV morphine which resolved her pain. I did repeat a 12-lead EKG which showed no acute ischemic changes. I did discuss case with the hospitalist and caser in. I did treat the patient with IV insulin for her blood sugar as well as her hyperkalemia. Medication Reconcilliation Current Medication List: was personally reviewed by me Blood Pressure Screening Patient's blood pressure: Elevated blood pressure Blood pressure disposition: Elevated BP felt to be situational Consults Time Called: 171 Consulting Physician: Melissa CROSS - [facility] Hospitalist Returned Call: [phone] I spoke with Melissa CROSS. We discussed the patient and her results. The patient will be further evaluated by [facility]. Impression Primary Impression: Acute chest pain Additional Impressions: Hyperglycemia CKD (chronic kidney disease) Anemia Hyperkalemia Scribe Attestation The scribe's documentation has been prepared under my direct and personally reviewed by me in its entirety. I confirm that the note above accurately reflects all work, treatment, procedures, and medical decision making performed by me. Departure Information Dispostion Being Evaluated By Hospitalist Referrals Vu Calixto D.O. (PCP) Patient Instructions My [facility] Problem Qualifiers Additional Impressions: CKD (chronic kidney disease) Chronic kidney disease stage: unspecified stage Qualified Codes: N18.9 - Chronic kidney disease, unspecified Anemia Anemia type: unspecified type Qualified Codes: D64.9 - Anemia, unspecified
[2017-09-09 19:54] VITALS: BP 151/72; PULSE 69; TEMP 36.8; O2SAT 98; BMI 28.3
[2017-09-09] MEDS: SODIUM CHLORIDE 0.9% 1000ML 1,000 ML IV SCH (20:26)
[2017-09-09 20:59] LABS: BLOOD UREA NITROGEN 70 mg/dl (7-18); CALCIUM 8.4 mg/dl (8.5-10.1); CARBON DIOXIDE 25 mmol/L (21-32); CREATININE 4.33 mg/dl (0.60-1.20); GLUCOSE 188 mg/dl (70-99); SODIUM 133 mmol/L (136-145)
[2017-09-09] MEDS ORDERED: INSULIN ASPART 100 UNITS/ML 3 ML PEN SC SCH (21:00)
[2017-09-09] MEDS: ACETAMINOPHEN 325 MG TAB PO PRN (21:15)
[2017-09-09] MEDS: NORTRIPTYLINE HCL 25 MG CAP PO SCH (22:04)
[2017-09-09] MEDS: DIVALPROEX SODIUM 500 MG DELAY RELEASE TAB PO SCH (22:05)
[2017-09-09] MEDS: HEPARIN SOD 5000 UNIT/0.5 ML CARP SQ SCH (22:09)
[2017-09-09 23:38] VITALS: BP 134/62; PULSE 67; TEMP 36.6; O2SAT 99
[2017-09-10] VITALS (14 sets, daily range): BP systolic 123–180; BP diastolic 62–92; PULSE 63–76; TEMP 36.4–36.8; O2SAT 94–97; BMI 27.5
[2017-09-10] MEDS: HYDROmorphone INJ 0.5 MG/0.5 ML SYR IV PRN ×2 (00:26→15:44)
[2017-09-10 01:54] LABS: BLOOD UREA NITROGEN 65 mg/dl (7-18); CALCIUM 8.4 mg/dl (8.5-10.1); CARBON DIOXIDE 23 mmol/L (21-32); CREATININE 4.05 mg/dl (0.60-1.20); GLUCOSE 195 mg/dl (70-99); SODIUM 134 mmol/L (136-145)
[2017-09-10] MEDS: OXYCODONE/ACETAMINOPHEN 5-325 TAB PO PRN ×3 (03:01→20:31)
[2017-09-10 04:13] LABS: HEMATOCRIT 21.2 % (37-47); HEMOGLOBIN 7.3 g/dL (12.0-16.0); MEAN CELL VOLUME 84.8 fL (80-100); MEAN CORPUSCULAR HEMOGLOBIN 29.2 pg (25-34); MEAN CORPUSCULAR HGB CONC 34.4 g/dl (32-36); MEAN PLATELET VOLUME 9.7 fL (7.4-10.4); PLATELET COUNT 261 K/uL (130-400); RED CELL DISTRIBUTION WIDTH CV 13.1 % (11.5-14.5); RED CELL DISTRIBUTION WIDTH SD 40.4 fL (36.4-46.3); WHITE BLOOD COUNT 5.18 K/uL (4.8-10.8)
[2017-09-10 04:32] LABS: CALCIUM 7.9 mg/dl (8.5-10.1); CREATININE 4.02 mg/dl (0.60-1.20)
[2017-09-10] MEDS: SODIUM CHLORIDE 0.9% 1000ML 1,000 ML IV SCH ×3 (05:16→20:31)
[2017-09-10] MEDS: HEPARIN SOD 5000 UNIT/0.5 ML CARP SQ SCH ×3 (06:17→20:37)
--- NOTE | 2017-09-10 07:17 | DIAGNOSTIC IMAGING REPORT ---
ULTRASOUND KIDNEYS AND BLADDER CLINICAL HISTORY: Right flank pain. COMPARISON STUDY: No priors. TECHNIQUE: Real-time, grayscale, and color flow sonography of the kidneys and bladder is performed. Images are reviewed in the transverse and longitudinal planes. FINDINGS: Kidneys: The kidneys are normal in size and echotexture. The right kidney measures 10.6 cm in length and the left kidney measures 9.0 cm in length. There is no hydronephrosis. No shadowing renal calculi are identified. There is no sonographic evidence of contour deforming renal mass lesion. No perinephric fluid is identified. Bladder: The bladder is normal in appearance. Bilateral ureteral jets were seen. IMPRESSION: Unremarkable sonographic assessment of the kidneys and bladder. Electronically signed by: Davy Willson M.D. 09/10/2017 7:16 AM Dictated Date/Time: 09/10/2017 7:15 AM
[2017-09-10 07:27] LABS: ALKALINE PHOSPHATASE 66 U/L (45-117); ALT/SGPT 16 U/L (12-78); AST/SGOT 13 U/L (15-37)
--- NOTE | 2017-09-10 07:42 | NEPHROLOGY CONSULTATION ---
DATE OF CONSULTATION: 09/10/2017 ATTENDING OF RECORD: Pancho Coleman MD. REASON FOR CONSULTATION: GEOVANI on chronic kidney disease stage IV. HISTORY OF PRESENT ILLNESS: This is a 47-year-old female who follows with Dr. Neil Monroe in [place] who has a fistula placed when she was in [place] and recently moved to the area, been followed by Dr. Monroe for several months. The patient was in [place] in August with an acute stroke with a right-sided weakness. The patient is a type 1 diabetic with an insulin pump, was trying to treat her blood sugars through subQ insulin. Blood sugars were quite elevated and the patient presents with volume depletion and GEOVANI in the setting of hyperglycemia. PAST MEDICAL HISTORY: CKD stage IV, heart disease, history of stroke, hyperlipidemia, hypertension, bipolar disease, history of seizures, hypertension. PAST SURGICAL HISTORY: Fistula placement in the right arm, cholecystectomy, appendectomy and tubal ligation. FAMILY HISTORY: Significant for diabetes. SOCIAL HISTORY: Former smoker, no alcohol, no drugs. Lives at home. CURRENT MEDICATIONS: Norvasc 10 mg a day, Aspirin 81 mg a day, Lipitor 40 mg daily, multivitamin daily, Protonix 40 mg daily, senna 1 tab daily, Carafate 1 gram daily, vitamin D 2000 units daily, Coreg 25 mg p.o. b.i.d., iron 325 p.o. t.i.d., heparin 5000 units subQ q. 8, sliding scale insulin, Depakote 500 mg p.o. q. 12, hydralazine 50 mg 4 times a day, nortriptyline 75 mg at night, normal saline at 125 mL an hour, insulin drip. REVIEW OF SYSTEMS: The patient is a Guinean speaker knows some Icelandic. Denies any vomiting, diarrhea or constipation. No fevers or chills. No headaches. Does have right-sided weakness. No dysuria. No chest pain. No rash or itching. All other review of systems otherwise negative. PHYSICAL EXAMINATION: VITAL SIGNS: Temperature 36.4, pulse 69, respirations 18, blood pressure 138/64, satting 96% on room air. GENERAL: Awake, alert, oriented x3. EYES: No scleral icterus. ENT: Moist mucous membranes. NECK: Supple. PULMONARY: Clear to auscultation. CARDIAC: Regular rate and rhythm. ABDOMEN: Bowel sounds positive, soft, nontender. EXTREMITIES: No significant clubbing, cyanosis or edema. NEUROLOGICALLY: Have right-sided weakness. DERMATOLOGIC: No rash or ulcers noted. LABORATORIES: White count is 5, H&H 7.3 and 21.2, platelet count is 261. Sodium level is 135, potassium is 5, chloride is 104, bicarbonate is 24, BUN 62, creatinine is 4, was 4.46 on admission, calcium 7.9. INR is 1. UA with specific gravity 1.020, 3+ protein, 3+ glucose, pH of 5, greater than 30 epithelial cells. IMPRESSION AND PLAN: 1. Acute kidney injury on chronic kidney disease stage IV with a maturing fistula in the right forearm not experiencing uremic symptoms at this time, appears to be prerenal and should be improving as we continue to control blood sugars better and continue hydration of normal saline at 125 mL an hour. Appears to be tolerating the fluids well. 2. Anemia. Hemoglobin level was 8.4 on admission, trended down to 7.3. The patient did present with volume depletion and so likely not actively losing blood but may have been hemoconcentrated. Could be more anemic then realized, would check iron sats, B12, folic acid levels. Could have an element of anemia of chronic kidney disease. If hemoglobin levels continue to trend down, may want to consider transfusing. Appreciate consultation. ROBERT
[2017-09-10] MEDS: ASPIRIN 81 MG ECTAB PO SCH (07:50)
[2017-09-10] MEDS: AMLODIPINE BESYLATE 5 MG TAB PO SCH (07:50)
[2017-09-10] MEDS: ATORVASTATIN 40 MG TAB PO SCH (07:50)
[2017-09-10] MEDS: DOCUSATE SODIUM/SENNA 50/8.6MG TAB PO SCH (07:50)
[2017-09-10] MEDS: CHOLECALCIFEROL 1000 INTER.UNIT TAB PO SCH (07:50)
[2017-09-10] MEDS: CEROVITE ADV FORMULA TAB PO SCH (07:50)
[2017-09-10] MEDS: PANTOprazole SOD 40 MG TAB PO SCH (07:50)
[2017-09-10] MEDS: FERROUS SULFATE 325 MG TAB PO SCH ×3 (07:51→15:43)
[2017-09-10] MEDS: DIVALPROEX SODIUM 500 MG DELAY RELEASE TAB PO SCH ×2 (07:51→19:48)
[2017-09-10] MEDS: SUCRALFATE 1 GM TAB PO SCH (07:51)
[2017-09-10] MEDS: CARVEDILOL 25 MG TAB PO SCH ×2 (07:51→15:43)
--- NOTE | 2017-09-10 08:00 | DIAGNOSTIC IMAGING REPORT ---
ABDOMEN LIMITED (US) CLINICAL HISTORY: 47 years-old Female presenting with RLQ abd pain. TECHNIQUE: Real-time grayscale Doppler ultrasound imaging of the right lower quadrant was performed for a focused evaluation at the site of clinical concern. Color Doppler ultrasound imaging was also performed. COMPARISON: None. FINDINGS: Trace free fluid noted in the right lower quadrant. Nonvisualization of the appendix. Per report by the patient, the appendix is absent. Normal-appearing bowel is noted. IMPRESSION: 1. Trace free fluid in the right lower quadrant, nonspecific and possibly physiologic. Nonvisualization appendix. Correlate for history of appendectomy. Electronically signed by: Trey Jones M.D. 09/10/2017 7:59 AM Dictated Date/Time: 09/10/2017 7:20 AM
[2017-09-10] MEDS ORDERED: INSULIN GLARGINE SOLOSTAR 100 UNITS/ML 3 ML PEN SQ SCH (09:00)
[2017-09-10] MEDS: INSULIN ASPART 100 UNITS/ML 3 ML PEN SC SCH ×4 (09:25→20:36)
--- NOTE | 2017-09-10 10:14 | Pharmacy Progress Note ---
Glycemic Control Intl Consult Date of Service Sep 10, 2017. Scope Glycemic Pharmacist consulted by AMERICA Lepe on for glycemic control and to write orders per [facility] inpatient glycemic control protocol Objective Weight (Kilograms): 68.300 Accuchecks BSG (last 24hrs): Test 09/09/17 16:10 09/09/17 18:31 09/09/17 20:18 09/09/17 20:33 Random Glucose 474 mg/dl (70-99) 188 mg/dl (70-99) Bedside Glucose 350 mg/dl (70-90) 200 mg/dl (70-90) Test 09/09/17 21:21 09/09/17 22:31 09/09/17 22:52 09/09/17 23:15 Bedside Glucose 162 mg/dl (70-90) 125 mg/dl (70-90) 102 mg/dl (70-90) 101 mg/dl (70-90) Test 09/09/17 23:36 09/10/17 00:52 09/10/17 01:04 09/10/17 01:40 Bedside Glucose 123 mg/dl (70-90) 208 mg/dl (70-90) 226 mg/dl (70-90) Random Glucose 195 mg/dl (70-99) Test 09/10/17 02:48 09/10/17 03:53 09/10/17 04:00 09/10/17 04:44 Bedside Glucose 230 mg/dl (70-90) 224 mg/dl (70-90) 201 mg/dl (70-90) Random Glucose 204 mg/dl (70-99) Test 09/10/17 05:50 09/10/17 07:52 Bedside Glucose 182 mg/dl (70-90) 135 mg/dl (70-90) Laboratory Data (last 24hrs) Test 09/09/17 16:10 09/09/17 20:33 09/10/17 01:04 09/10/17 04:00 Anion Gap 12.0 mmol/L 8.0 mmol/L 8.0 mmol/L 7.0 mmol/L BUN/Creatinine Ratio 14.9 16.1 16.1 15.5 Blood Urea Nitrogen 67 mg/dl 70 mg/dl 65 mg/dl 62 mg/dl Creatinine 4.46 mg/dl 4.33 mg/dl 4.05 mg/dl 4.02 mg/dl Potassium Level 5.7 mmol/L 5.0 mmol/L 5.0 mmol/L 5.0 mmol/L Sodium Level 128 mmol/L 133 mmol/L 134 mmol/L 135 mmol/L White Blood Count 6.94 K/uL 5.18 K/uL Red Blood Count 2.83 M/uL Hemoglobin 8.4 g/dL Hematocrit 24.4 % Mean Corpuscular Volume 86.2 fL Mean Corpuscular Hemoglobin 29.7 pg Mean Corpuscular Hemoglobin Concent 34.4 g/dl Platelet Count 302 K/uL Mean Platelet Volume 10.3 fL Neutrophils (%) (Auto) 64.0 % Lymphocytes (%) (Auto) 24.6 % Monocytes (%) (Auto) 9.1 % Eosinophils (%) (Auto) 1.0 % Basophils (%) (Auto) 0.6 % Neutrophils # (Auto) 4.44 K/uL Lymphocytes # (Auto) 1.71 K/uL Monocytes # (Auto) 0.63 K/uL Eosinophils # (Auto) 0.07 K/uL Basophils # (Auto) 0.04 K/uL HbA1c 9.9% on 06/2017 Recent Pertinent Medications Outpatient Anti-diabetic Regimen: * NovoLog Insulin Pump * Non-functioning at this time. Using SQ basal bolus in the interm The patient is currently receiving: * IV insulin infusion per protocol * Goal Range = 140 - 180 mg/dl * Prandial insulin: As determined by carb ratio per IV insulin infusion rate Assessment & Plan ASSESSMENT: * 47yo T1DM female with hyperglycemia secondary to pump malfunction * Pt initiated on IV insulin infusion on admission. Drip ran overnight from 0.8- 2.6 units/hr. Hyperglycemia resolved this morning. Pt meets criteria to transition from IV to SQ basal bolus * IV insulin infusion has been running at 0.8-1.2 units/hr overnight while NPO. This would correspond to a basal insulin dose of ~20-24 units. This is c/w outpatient dosing. * Will start a weight based NovoLog scale * titrate parameters based on BSG trends. PLAN FOR INPATIENT GLYCEMIC CONTROL: * Transition off of IV insulin infusion per protocol * Will d/c IV insulin infusion when held per calculator or 6 hrs after initial Lantus dose, whichever happens sooner. * Basal insulin * Lantus 20 units SQ Q24hrs given in the morning * Bolus insulin * NovoLog per scale ACHS or Q6hrs while NPO * Goal Range: Low 110 mg/dL - High 140 mg/dL * Correction Factor: 30 mg/dL/unit * Nutritional / Prandial insulin per carb ratio of 1 unit per 10 grams CHO consumed * Please note that the plan above was derived based on current level of insulin resistance and hospital stress. These recommendations are appropriate for inpatient admission only. Plan of care upon discharge will need to be reassessed to avoid potential outpatient hypo/hyperglycemia. Thank you.
[2017-09-10 13:22] LABS: HEMATOCRIT 20.9 % (37-47); HEMOGLOBIN 7.2 g/dL (12.0-16.0); MEAN CELL VOLUME 85.7 fL (80-100); MEAN CORPUSCULAR HEMOGLOBIN 29.5 pg (25-34); MEAN CORPUSCULAR HGB CONC 34.4 g/dl (32-36); MEAN PLATELET VOLUME 9.6 fL (7.4-10.4); PLATELET COUNT 264 K/uL (130-400); RED CELL DISTRIBUTION WIDTH CV 13.3 % (11.5-14.5); RED CELL DISTRIBUTION WIDTH SD 41.3 fL (36.4-46.3); WHITE BLOOD COUNT 4.73 K/uL (4.8-10.8)
--- NOTE | 2017-09-10 13:50 | ECHOCARDIOGRAM REPORT ---
*NOTICE TO RECEIVING [employer] [employer] This information is strictly Confidential and protected under [place] law. [place] law prohibits you from making any further disclosure of this information unless further disclosure is expressly permitted by the written consent of the person to whom it pertains or is authorized by law. A general authorization for the release of medical or other information is not sufficient for this purpose. Hospital accepts no responsibility if the information is made available to any other person, INCLUDING THE PATIENT. Interpretation Summary * Name: KELLEN ZAVALA Study Date: 09/10/2017 12:33 PM BP: 123/69 mmHg * Patient Location: C.2T\S\E219\S\1 HR: 63 * : 1970 (M/d/yyyy) Gender: Female Height: 62 in * Age: 47 yrs Ethnicity: [place] Weight: 154 lb * Ordering Physician: Dawson Mohamud * Referring Physician: Reggie Henley * Performed By: Yuni Fernández RDCS * * Reason For Study: Chest pain * BSA: 1.7 m2 * -- Conclusions -- * No significant change compared to previous study of 08/29/17. * Normal LV chamber size with mild concentric LVH. * Normal LV systolic function, EF 60-65%. * No segmental left ventricular wall motion abnormalities are noted. * Grade II diastolic dysfunction. * Aortic valve sclerosis mild, without significant aortic valvular stenosis. There is focal thickening and calfication at the non coronary cusp. Mild aortic regurgitation. * Calcified mitral apparatus. There is mild mitral annular calcification. There is mild mitral regurgitation. There is no mitral valve stenosis. * Mild tricuspid regurgitation. Procedure Details * A complete two-dimensional transthoracic echocardiogram was performed (2D, M-mode, Doppler and color flow Doppler). Left Ventricle * The left ventricle is normal in size. * There is mild concentric left ventricular hypertrophy. * Ejection Fraction = 60-65%. * Left ventricular systolic function is normal. * No segmental left ventricular wall motion abnormalities are noted. * The left ventricular wall motion is normal. Right Ventricle * The right ventricular cavity size is normal (basal dimension <4.2 cm in right ventricular apical 4-chamber view). * The right ventricular systolic function is normal as assessed by tricuspid annular plane systolic excursion (TAPSE) (normal >1.5 cm). Atria * The left atrial size is normal. * Right atrial size is normal. * No ASD detected; PFO is not assessed. Mitral Valve * Calcified mitral apparatus. * There is mild mitral annular calcification. * There is no mitral valve stenosis. * There is mild mitral regurgitation. Tricuspid Valve * The tricuspid valve anatomy is normal. * There is no tricuspid stenosis. * There is mild tricuspid regurgitation. Aortic Valve * The aortic valve is trileaflet. * Aortic valve sclerosis mild, without significant aortic valvular stenosis. * There is focal thickening and calfication at the non coronary cusp. * Mild to moderate aortic regurgitation. Pulmonic Valve * The pulmonary valve is not well seen, but the Doppler examination is normal without significant regurgitation or stenosis. Great Vessels * The aortic root and proximal ascending aorta are normal sized. Pericardium/Pleural * There is no pericardial effusion. Left Ventricular Diastolic Function * Diastolic dysfunction, Grade II (pseudonormalization pattern). MMode 2D Measurements and Calculations IVSd 0.92 cm LVIDd 4.3 cm LVIDs 2.8 cm LVPWd 1.3 cm IVS/LVPW 0.71 FS 35.3 % EDV(Teich) 82.7 ml ESV(Teich) 29.0 ml EF(Teich) 64.9 % EDV(cubed) 79.0 ml ESV(cubed) 21.5 ml EF(cubed) 72.9 % LV mass(C)d 164.7 grams LV mass(C)dI 96.3 grams/m\S\2 SV(Teich) 53.7 ml SI(Teich) 31.4 ml/m\S\2 SV(cubed) 57.6 ml SI(cubed) 33.7 ml/m\S\2 Ao root diam 2.3 cm Ao root area 4.1 cm\S\2 ACS 1.6 cm LA dimension 3.6 cm asc Aorta Diam 2.4 cm LA/Ao 1.6 LVOT diam 1.8 cm LVOT area 2.5 cm\S\2 LVAd ap4 28.4 cm\S\2 LVLd ap4 8.6 cm EDV(MOD-sp4) 78.2 ml EDV(sp4-el) 79.7 ml LVAs ap4 15.2 cm\S\2 LVLs ap4 7.2 cm ESV(MOD-sp4) 30.1 ml ESV(sp4-el) 27.3 ml EF(MOD-sp4) 61.5 % EF(sp4-el) 65.8 % LVAd ap2 24.4 cm\S\2 LVLd ap2 8.0 cm EDV(MOD-sp2) 62.1 ml EDV(sp2-el) 63.1 ml LVAs ap2 14.1 cm\S\2 LVLs ap2 7.3 cm ESV(MOD-sp2) 24.4 ml ESV(sp2-el) 23.2 ml EF(MOD-sp2) 60.7 % EF(sp2-el) 63.2 % LVLd %diff -7.31 % EDV(MOD-bp) 72.0 ml LVLs %diff 1.8 % ESV(MOD-bp) 27.0 ml EF(MOD-bp) 62.5 % SV(MOD-sp4) 48.1 ml SI(MOD-sp4) 28.1 ml/m\S\2 SV(MOD-sp2) 37.7 ml SI(MOD-sp2) 22.0 ml/m\S\2 SV(MOD-bp) 45.0 ml SI(MOD-bp) 26.3 ml/m\S\2 SV(sp4-el) 52.4 ml SI(sp4-el) 30.6 ml/m\S\2 SV(sp2-el) 39.9 ml SI(sp2-el) 23.3 ml/m\S\2 Doppler Measurements and Calculations MV E max shalonda 139.2 cm/sec MV A max shalonda 116.4 cm/sec MV E/A 1.2 MV dec time 0.25 sec Ao V2 max 196.8 cm/sec Ao max PG 15.5 mmHg Ao max PG (full) 10.2 mmHg TONNY(V,A) 1.4 cm\S\2 TONNY(V,D) 1.4 cm\S\2 LV V1 max PG 5.3 mmHg LV V1 max 115.0 cm/sec PA V2 max 119.4 cm/sec PA max PG 5.7 mmHg PA acc slope 408.5 cm/sec\S\2 PA acc time 0.20 sec TR max shalonda 210.2 cm/sec PA pr(Accel) -12.90 mmHg
[2017-09-10] MEDS ORDERED: DC IV INSULIN INFUSION ONE (14:00)
[2017-09-10] MEDS ORDERED: NURSING VERBAL MED ORDER ONE (15:30)
[2017-09-10] MEDS: BREO ELLIPTA: ORDER AWAITING ACTION SCH ×2 (15:36)
--- NOTE | 2017-09-10 18:01 | Progress Note ---
Medicine Progress Note Date & Time of Visit: Sep 10, 2017 at 18:00. Subjective seen resting in bed comfortable states she feels improved denies chest pain, dyspnea, abdominal pain, nausea no other symptoms Objective Last 8 Hrs Date Time Temp Pulse Resp B/P (MAP) Pulse Ox O2 Delivery O2 Flow Rate FiO2 09/10/17 17:40 168/74 (105) 09/10/17 15:46 36.5 68 16 180/79 (112) 94 Room Air 09/10/17 12:04 36.8 63 20 123/69 (87) 97 Room Air 09/10/17 12:00 97 Room Air Physical Exam: General- oriented x 3, not in distress, speaks in sentences with no effort Head- atraumatic Eyes- PERRL, EOMI, anicteric ENT- oropharynx clear Neck- supple, no JVD Lungs- clear to auscultation bilaterally Heart- regular rhythm; no murmur, normal rate Abdomen- normal bowel sounds, soft, nontender Extremities- no pretibial edema, no calf tenderness; peripheral pulses intact Neuro- alert, oriented x 3; no gross focal deficits Skin- warm & dry Laboratory Results: Last 24 Hours Test 09/09/17 18:31 09/09/17 20:18 09/09/17 20:33 09/09/17 21:21 Bedside Glucose 350 mg/dl 200 mg/dl 162 mg/dl Sodium Level 133 mmol/L Potassium Level 5.0 mmol/L Chloride Level 100 mmol/L Carbon Dioxide Level 25 mmol/L Anion Gap 8.0 mmol/L Blood Urea Nitrogen 70 mg/dl Creatinine 4.33 mg/dl Est Creatinine Clear Calc Drug Dose 14.4 ml/min Estimated GFR () 13.0 Estimated GFR (Non- 11.2 BUN/Creatinine Ratio 16.1 Random Glucose 188 mg/dl Calcium Level 8.4 mg/dl Troponin I < 0.015 ng/ml Test 09/09/17 22:31 09/09/17 22:52 09/09/17 23:15 09/09/17 23:36 Bedside Glucose 125 mg/dl 102 mg/dl 101 mg/dl 123 mg/dl Test 09/10/17 00:52 09/10/17 01:04 09/10/17 01:40 09/10/17 02:48 Bedside Glucose 208 mg/dl 226 mg/dl 230 mg/dl Sodium Level 134 mmol/L Potassium Level 5.0 mmol/L Chloride Level 103 mmol/L Carbon Dioxide Level 23 mmol/L Anion Gap 8.0 mmol/L Blood Urea Nitrogen 65 mg/dl Creatinine 4.05 mg/dl Est Creatinine Clear Calc Drug Dose 15.4 ml/min Estimated GFR () 14.1 Estimated GFR (Non- 12.2 BUN/Creatinine Ratio 16.1 Random Glucose 195 mg/dl Calcium Level 8.4 mg/dl Troponin I < 0.015 ng/ml Test 09/10/17 03:53 09/10/17 04:00 09/10/17 04:44 09/10/17 05:50 Bedside Glucose 224 mg/dl 201 mg/dl 182 mg/dl White Blood Count 5.18 K/uL Red Blood Count 2.50 M/uL Hemoglobin 7.3 g/dL Hematocrit 21.2 % Mean Corpuscular Volume 84.8 fL Mean Corpuscular Hemoglobin 29.2 pg Mean Corpuscular Hemoglobin Concent 34.4 g/dl RDW Standard Deviation 40.4 fL RDW Coefficient of Variation 13.1 % Platelet Count 261 K/uL Mean Platelet Volume 9.7 fL Sodium Level 135 mmol/L Potassium Level 5.0 mmol/L Chloride Level 104 mmol/L Carbon Dioxide Level 24 mmol/L Anion Gap 7.0 mmol/L Blood Urea Nitrogen 62 mg/dl Creatinine 4.02 mg/dl Est Creatinine Clear Calc Drug Dose 15.5 ml/min Estimated GFR () 14.2 Estimated GFR (Non- 12.3 BUN/Creatinine Ratio 15.5 Random Glucose 204 mg/dl Calcium Level 7.9 mg/dl Test 09/10/17 06:46 09/10/17 07:52 09/10/17 11:04 09/10/17 12:52 Total Bilirubin 0.3 mg/dl Direct Bilirubin < 0.1 mg/dl Aspartate Amino Transf (AST/SGOT) 13 U/L Alanine Aminotransferase (ALT/SGPT) 16 U/L Alkaline Phosphatase 66 U/L Total Protein 6.0 gm/dl Albumin 2.0 gm/dl Bedside Glucose 135 mg/dl 99 mg/dl White Blood Count 4.73 K/uL Red Blood Count 2.44 M/uL Hemoglobin 7.2 g/dL Hematocrit 20.9 % Mean Corpuscular Volume 85.7 fL Mean Corpuscular Hemoglobin 29.5 pg Mean Corpuscular Hemoglobin Concent 34.4 g/dl RDW Standard Deviation 41.3 fL RDW Coefficient of Variation 13.3 % Platelet Count 264 K/uL Mean Platelet Volume 9.6 fL Test 09/10/17 16:44 09/10/17 17:24 Bedside Glucose 55 mg/dl 91 mg/dl Assessment & Plan Hyperglycemia Uncontrolled diabetes type 1 -Patient presenting from [facility] for hyperglycemia for the past 3 days, patient is a type I diabetic with insulin pump however has been malfunctioning over the weekend -In the ED patient's blood sugars found to be 474 -No signs of DKA -- Insulin drip discontinued now on Insulin Lantus and ISS monitor Acute Renal Failure on CKD stage IV -Likely prerenal etiology -Patient's baseline creatinine runs around 3.5, does have a fistula in place however has not started dialysis yet - Nephrology consulted given IV fluids Atypical Chest pain, Resolved, -Initial troponin negative, EKG without acute ST changes -Cardiac cath 2015 shows nonobstructive coronary disease -Stress test 06/2017 showed a possible small area of ischemia in the anterior wall -- Troponins negative echo unchanged - Continue aspirin, statin, beta-wiley Hyperkalemia - resolved Recent CVA -Continue aspirin and statin History of seizures -Continue Depakote Hypertension -BP controlled, continue amlodipine, hydralazine, carvedilol Anemia due to CKD -Baseline hemoglobin runs around 7-8 - Hg 7.3 ordered 1 unit pRBC DVT prophylaxis -SQ heparin CODE STATUS -Patient is a full code Disposition anticipate return to SNF when blood glucose stable and cleared by Nephro * -- Conclusions -- * No significant change compared to previous study of 08/29/17. * Normal LV chamber size with mild concentric LVH. * Normal LV systolic function, EF 60-65%. * No segmental left ventricular wall motion abnormalities are noted. * Grade II diastolic dysfunction. * Aortic valve sclerosis mild, without significant aortic valvular stenosis. There is focal thickening and calfication at the non coronary cusp. Mild aortic Current Inpatient Medications: Current Inpatient Medications Medications (Trade) Dose Ordered Sig/Latasha Route Start Time Stop Time Status Last Admin Dose Admin Heparin Sodium (Porcine) (Heparin Sq 5000 Unit/0.5ml) 5,000 unit Q8 SQ 09/09/17 22:00 10/09/17 21:59 09/10/17 14:09 5,000 UNIT Sodium Chloride 1,000 ml @ 125 mls/hr Q8H IV 09/09/17 20:00 10/09/17 19:59 09/10/17 12:02 125 MLS/HR Acetaminophen (Tylenol Tab) 650 mg Q4H PRN PO 09/09/17 18:00 10/09/17 17:59 09/09/17 21:15 650 MG Ondansetron HCl (Zofran Inj) 4 mg Q6H PRN IV 09/09/17 18:00 10/09/17 17:59 Miscellaneous Information (Consult Glycemic Management Pharmacy) 1 ea UD PRN N/A 09/09/17 18:10 10/09/17 18:09 Amlodipine Besylate (Norvasc Tab) 10 mg DAILY PO 09/10/17 09:00 10/10/17 08:59 09/10/17 07:50 10 MG Aspirin (Ecotrin Tab) 81 mg QAM PO 09/10/17 09:00 10/10/17 08:59 09/10/17 07:50 81 MG Atorvastatin Calcium (Lipitor Tab) 40 mg DAILY PO 09/10/17 09:00 10/10/17 08:59 09/10/17 07:50 40 MG Carvedilol (Coreg Tab) 25 mg BIDM PO 09/10/17 07:30 10/10/17 07:59 09/10/17 15:43 25 MG Divalproex Sodium (Depakote Delay Rel Tab) 500 mg Q12 PO 09/09/17 21:00 10/09/17 20:59 09/10/17 07:51 500 MG Docusate Sodium (coLACE CAP) 100 mg BID PRN PO 09/09/17 18:15 10/09/17 18:14 Hydralazine HCl (Apresoline Tab) 50 mg QID PO 09/09/17 21:00 10/09/17 20:59 09/10/17 17:39 50 MG Multivitamins/ Minerals (Multivitamin W/ Minerals Tab) 1 tab DAILY PO 09/10/17 09:00 10/10/17 08:59 09/10/17 07:50 1 TAB Nortriptyline HCl (Pamelor Cap) 75 mg HS PO 09/09/17 21:00 10/09/17 20:59 09/09/17 22:04 75 MG Pantoprazole Sodium (Protonix Tab) 40 mg DAILY PO 09/10/17 09:00 10/10/17 08:59 09/10/17 07:50 40 MG Senna/Docusate Sodium (Senokot S Tab) 1 tab DAILY PO 09/10/17 09:00 10/10/17 08:59 09/10/17 07:50 1 TAB Sucralfate (Carafate Tab) 1 gm DAILY PO 09/10/17 09:00 10/10/17 08:59 09/10/17 07:51 1 GM Cholecalciferol (Vitamin D Tab) 2,000 inter.unit DAILY PO 09/10/17 09:00 10/10/17 08:59 09/10/17 07:50 2,000 INTER.UNIT Ferrous Sulfate (Feosol Tab) 325 mg TIDM PO 09/10/17 07:30 10/10/17 07:59 09/10/17 15:43 325 MG Miscellaneous Information (Order Awaiting Action) 1 ea QS N/A 09/10/17 00:00 10/10/17 00:00 Polyethylene (Miralax Powder Packet) 17 gm DAILY PRN PO 09/09/17 18:15 10/09/17 18:14 Oxycodone/ Acetaminophen (Percocet 5-325mg Tab) 1 tab Q6H PRN PO 09/09/17 22:45 09/23/17 22:44 09/10/17 12:01 1 TAB Hydromorphone HCl (Dilaudid Inj) 0.5 mg Q6H PRN IV 09/09/17 22:45 09/23/17 22:44 09/10/17 15:44 0.5 MG Insulin Aspart (novoLOG ASPART) SLIDING SCALE ACHS SC 09/10/17 08:15 10/10/17 08:14 09/10/17 11:57 2 UNITS Insulin Glargine (Lantus Solostar Pen) 18 units DAILY SQ 09/11/17 09:00 10/11/17 08:59 Future Hold
[2017-09-10] MEDS: NORTRIPTYLINE HCL 25 MG CAP PO SCH (21:26)
[2017-09-11] VITALS (7 sets, daily range): BP systolic 157–189; BP diastolic 67–76; PULSE 71–83; TEMP 36.4–37.1; O2SAT 93–94; BMI 28.1
[2017-09-11] MEDS: SODIUM CHLORIDE 0.9% 1000ML 1,000 ML IV SCH ×2 (04:20→11:51)
[2017-09-11] MEDS: HEPARIN SOD 5000 UNIT/0.5 ML CARP SQ SCH ×3 (06:19→20:48)
[2017-09-11 07:20] LABS: HEMATOCRIT 24.2 % (37-47); HEMOGLOBIN 8.3 g/dL (12.0-16.0); MEAN CELL VOLUME 86.1 fL (80-100); MEAN CORPUSCULAR HEMOGLOBIN 29.5 pg (25-34); MEAN CORPUSCULAR HGB CONC 34.3 g/dl (32-36); MEAN PLATELET VOLUME 9.7 fL (7.4-10.4); PLATELET COUNT 249 K/uL (130-400); RED CELL DISTRIBUTION WIDTH CV 13.4 % (11.5-14.5); RED CELL DISTRIBUTION WIDTH SD 42.4 fL (36.4-46.3); WHITE BLOOD COUNT 4.47 K/uL (4.8-10.8)
[2017-09-11] MEDS: BREO ELLIPTA: ORDER AWAITING ACTION SCH ×4 (08:00→23:35)
[2017-09-11] MEDS: DIVALPROEX SODIUM 500 MG DELAY RELEASE TAB PO SCH ×2 (08:24→20:37)
[2017-09-11] MEDS: ASPIRIN 81 MG ECTAB PO SCH (08:24)
[2017-09-11] MEDS: AMLODIPINE BESYLATE 5 MG TAB PO SCH (08:24)
[2017-09-11] MEDS: CARVEDILOL 25 MG TAB PO SCH ×2 (08:25→17:00)
[2017-09-11] MEDS: OXYCODONE/ACETAMINOPHEN 5-325 TAB PO PRN ×2 (08:25→23:34)
[2017-09-11] MEDS: DOCUSATE SODIUM/SENNA 50/8.6MG TAB PO SCH (08:25)
[2017-09-11] MEDS: CHOLECALCIFEROL 1000 INTER.UNIT TAB PO SCH (08:25)
[2017-09-11] MEDS: SUCRALFATE 1 GM TAB PO SCH (08:26)
[2017-09-11] MEDS: ATORVASTATIN 40 MG TAB PO SCH (08:26)
[2017-09-11] MEDS: CEROVITE ADV FORMULA TAB PO SCH (08:26)
[2017-09-11] MEDS: PANTOprazole SOD 40 MG TAB PO SCH (08:26)
[2017-09-11] MEDS: FERROUS SULFATE 325 MG TAB PO SCH ×3 (08:26→17:00)
[2017-09-11] MEDS: INSULIN GLARGINE SOLOSTAR 100 UNITS/ML 3 ML PEN SQ SCH (08:27)
[2017-09-11] MEDS: INSULIN ASPART 100 UNITS/ML 3 ML PEN SC SCH ×4 (08:28→20:19)
--- NOTE | 2017-09-11 09:34 | Nephrology Progress Note ---
Nephrology Progress Note Date of Service: Sep 11, 2017. Subjective 47 yo female with geovani on ckd stage 4 who feels better.had one unit of blood yesterday and tolerating fluids well. does have a mild non-productive cough. appetite is ok. Objective Date Time Temp Pulse Resp B/P (MAP) Pulse Ox O2 Delivery O2 Flow Rate FiO2 09/11/17 08:00 Room Air 09/11/17 07:24 37.0 71 20 179/68 (105) 94 Room Air 09/11/17 04:00 Room Air 09/11/17 03:43 36.9 71 18 166/67 (100) 94 Room Air 09/10/17 23:59 Room Air 09/10/17 23:40 36.6 68 17 132/62 (85) 95 Room Air 09/10/17 20:30 36.5 76 16 173/79 94 09/10/17 20:00 36.5 70 16 174/92 95 09/10/17 20:00 Room Air 09/10/17 19:30 36.6 69 16 161/73 95 09/10/17 19:30 36.6 69 20 161/73 (102) 95 Room Air 09/10/17 19:15 36.6 70 16 157/77 95 09/10/17 19:00 36.5 70 16 152/73 95 09/10/17 18:41 36.6 69 18 150/71 96 09/10/17 17:40 168/74 (105) 09/10/17 16:00 Room Air 09/10/17 15:46 36.5 68 16 180/79 (112) 94 Room Air 09/10/17 12:04 36.8 63 20 123/69 (87) 97 Room Air 09/10/17 12:00 97 Room Air Physical Exam: General-aaox3 Eyes-no scleral icterus ENT-mmm Neck-supple Lungs-cta Heart-rrr Abdomen-bs+ s/nt Extremities-no c/c/e Neuro-nonfocal Current Inpatient Medications Medications (Trade) Dose Ordered Sig/Latasha Route Start Time Stop Time Status Last Admin Dose Admin Heparin Sodium (Porcine) (Heparin Sq 5000 Unit/0.5ml) 5,000 unit Q8 SQ 09/09/17 22:00 10/09/17 21:59 09/11/17 06:19 5,000 UNIT Sodium Chloride 1,000 ml @ 125 mls/hr Q8H IV 09/09/17 20:00 10/09/17 19:59 09/11/17 04:20 125 MLS/HR Acetaminophen (Tylenol Tab) 650 mg Q4H PRN PO 09/09/17 18:00 10/09/17 17:59 09/09/17 21:15 650 MG Ondansetron HCl (Zofran Inj) 4 mg Q6H PRN IV 09/09/17 18:00 10/09/17 17:59 Miscellaneous Information (Consult Glycemic Management Pharmacy) 1 ea UD PRN N/A 09/09/17 18:10 10/09/17 18:09 Amlodipine Besylate (Norvasc Tab) 10 mg DAILY PO 09/10/17 09:00 10/10/17 08:59 09/11/17 08:24 10 MG Aspirin (Ecotrin Tab) 81 mg QAM PO 09/10/17 09:00 10/10/17 08:59 09/11/17 08:24 81 MG Atorvastatin Calcium (Lipitor Tab) 40 mg DAILY PO 09/10/17 09:00 10/10/17 08:59 09/11/17 08:26 40 MG Carvedilol (Coreg Tab) 25 mg BIDM PO 09/10/17 07:30 10/10/17 07:59 09/11/17 08:25 25 MG Divalproex Sodium (Depakote Delay Rel Tab) 500 mg Q12 PO 09/09/17 21:00 10/09/17 20:59 09/11/17 08:24 500 MG Docusate Sodium (coLACE CAP) 100 mg BID PRN PO 09/09/17 18:15 10/09/17 18:14 Hydralazine HCl (Apresoline Tab) 50 mg QID PO 09/09/17 21:00 10/09/17 20:59 09/11/17 08:24 50 MG Multivitamins/ Minerals (Multivitamin W/ Minerals Tab) 1 tab DAILY PO 09/10/17 09:00 10/10/17 08:59 09/11/17 08:26 1 TAB Nortriptyline HCl (Pamelor Cap) 75 mg HS PO 09/09/17 21:00 10/09/17 20:59 09/10/17 21:26 75 MG Pantoprazole Sodium (Protonix Tab) 40 mg DAILY PO 09/10/17 09:00 10/10/17 08:59 09/11/17 08:26 40 MG Senna/Docusate Sodium (Senokot S Tab) 1 tab DAILY PO 09/10/17 09:00 10/10/17 08:59 09/11/17 08:25 1 TAB Sucralfate (Carafate Tab) 1 gm DAILY PO 09/10/17 09:00 10/10/17 08:59 09/11/17 08:26 1 GM Cholecalciferol (Vitamin D Tab) 2,000 inter.unit DAILY PO 09/10/17 09:00 10/10/17 08:59 09/11/17 08:25 2,000 INTER.UNIT Ferrous Sulfate (Feosol Tab) 325 mg TIDM PO 09/10/17 07:30 10/10/17 07:59 09/11/17 08:26 325 MG Miscellaneous Information (Order Awaiting Action) 1 ea QS N/A 09/10/17 00:00 10/10/17 00:00 Polyethylene (Miralax Powder Packet) 17 gm DAILY PRN PO 09/09/17 18:15 10/09/17 18:14 Oxycodone/ Acetaminophen (Percocet 5-325mg Tab) 1 tab Q6H PRN PO 09/09/17 22:45 09/23/17 22:44 09/11/17 08:25 1 TAB Hydromorphone HCl (Dilaudid Inj) 0.5 mg Q6H PRN IV 09/09/17 22:45 09/23/17 22:44 09/10/17 15:44 0.5 MG Insulin Aspart (novoLOG ASPART) SLIDING SCALE ACHS SC 09/10/17 08:15 10/10/17 08:14 09/11/17 08:28 6 UNITS Insulin Glargine (Lantus Solostar Pen) 18 units DAILY SQ 09/11/17 09:00 10/11/17 08:59 Future hold 09/11/17 08:27 18 UNITS Last 24 Hours Test 09/10/17 11:04 09/10/17 12:52 09/10/17 16:44 09/10/17 17:24 Bedside Glucose 99 mg/dl 55 mg/dl 91 mg/dl White Blood Count 4.73 K/uL Red Blood Count 2.44 M/uL Hemoglobin 7.2 g/dL Hematocrit 20.9 % Mean Corpuscular Volume 85.7 fL Mean Corpuscular Hemoglobin 29.5 pg Mean Corpuscular Hemoglobin Concent 34.4 g/dl RDW Standard Deviation 41.3 fL RDW Coefficient of Variation 13.3 % Platelet Count 264 K/uL Mean Platelet Volume 9.6 fL Test 09/10/17 20:29 09/11/17 06:33 09/11/17 06:57 09/11/17 09:26 Bedside Glucose 204 mg/dl 133 mg/dl White Blood Count 4.47 K/uL Red Blood Count 2.81 M/uL Hemoglobin 8.3 g/dL Hematocrit 24.2 % Mean Corpuscular Volume 86.1 fL Mean Corpuscular Hemoglobin 29.5 pg Mean Corpuscular Hemoglobin Concent 34.3 g/dl RDW Standard Deviation 42.4 fL RDW Coefficient of Variation 13.4 % Platelet Count 249 K/uL Mean Platelet Volume 9.7 fL Iron Level 131 mcg/dl Total Iron Binding Capacity 220 mcg/dl Transferrin 173 mg/dl Transferrin % Saturation 54 % Ferritin 108.0 ng/ml Vitamin B12 Level 667 pg/mL Folate 10.31 ng/mL Assessment & Plan GEOVANI on ckd stage [id number]-thought to be from pre-renal state from hyperglycemia. bmp pending for today. continue iv fluids. appears to be tolerating them well. Anemia of renal failure-iron levels are good. likely with element of anemia of ckd. could consider doing procrit as an outpt.
[2017-09-11 10:13] LABS: CALCIUM 7.9 mg/dl (8.5-10.1); CREATININE 3.79 mg/dl (0.60-1.20); POTASSIUM 5.1 mmol/L (3.5-5.1)
[2017-09-11] MEDS ORDERED: INSULIN HUMAN REGULAR PER UNIT 6 UNITS in SYRINGE 5.94 ML IV ONE ×2 (12:15→16:45)
--- NOTE | 2017-09-11 13:15 | Pharmacy Progress Note ---
Pharmacy Glycemic Short Note 2 Date of Service Sep 11, 2017. OUTPATIENT ANTIDIABETIC REGIMEN: * NovoLog Insulin Pump * Non-functioning at this time. * Basal rate: 0.6 units/hr * CF: 90, CR: 30 ASSESSMENT: * 47yo T1DM female with hyperglycemia secondary to pump malfunction. * Pt was initiated on IV insulin infusion at time of admission and was transitioned to SQ basal + bolus insulin yesterday. * BSGs were mostly in range over the past 24 hours with the exception of hypoglycemia around dinnertime (BSG 55 mg/dL). * Fasting BSG of 133 mg/dL is near goal, therefore no changes to basal insulin * Patient experienced severe hyperglycemia at lunchtime today, BSG 329 mg/dL. Patient did not snack between meals and she received 6 units of insulin for breakfast coverage. This indicates that carb coverage may not be sufficient. Will tighten CF/CR. PLAN FOR INPATIENT GLYCEMIC CONTROL: * Basal insulin * Lantus 18 units SQ daily * Bolus insulin - tighten * NovoLog per scale ACHS or Q6hrs while NPO * Goal Range: Low 120 mg/dL - High 140 mg/dL * Correction Factor: 30 mg/dL/unit * Nutritional / Prandial insulin per carb ratio of 1 unit per 10 grams CHO consumed * Regular insulin 6 unit IV bolus x 1 for BSG of 329 mg/dL at lunchtime Thank you.
--- NOTE | 2017-09-11 13:26 | DIAGNOSTIC IMAGING REPORT ---
CHEST ONE VIEW PORTABLE CLINICAL HISTORY: 47 years-old Female presenting with r/o pneumonia, aspiration, recent chest pain. TECHNIQUE: Portable upright AP view of the chest was obtained. COMPARISON: 09/09/2017. FINDINGS: Cardiopericardial silhouette enlarged. Mildly low lung volumes. Pulmonary vascular prominence. No focal opacity. No large effusion or pneumothorax. Osseous structures normal. Upper abdomen normal. IMPRESSION: 1. Cardiopericardial silhouette enlargement. This could indicate cardiomegaly or pericardial effusion. Consider further evaluation with chest CT. 2. Possible volume overload. Electronically signed by: Trey Jones M.D. 09/11/2017 1:24 PM Dictated Date/Time: 09/11/2017 1:23 PM
--- NOTE | 2017-09-11 16:33 | Progress Note ---
Medicine Progress Note Date & Time of Visit: Sep 11, 2017 at 16:26. Subjective seen resting in bed, comfortable has dry cough no shortness of breath BSG 300s at noon, no symptoms denies other symptoms Objective Last 8 Hrs Date Time Temp Pulse Resp B/P (MAP) Pulse Ox O2 Delivery O2 Flow Rate FiO2 09/11/17 16:00 Room Air 09/11/17 15:44 36.4 73 20 186/76 (112) 93 Room Air 09/11/17 12:03 37.0 83 20 189/69 (109) 94 09/11/17 12:00 Room Air Physical Exam: General- oriented x 3, not in distress, speaks in sentences with no effort Eyes- anicteric ENT- oropharynx clear Neck- no JVD Lungs- clear breath sounds bilateraly Heart- regular rhythm; no murmur, normal rate Abdomen- normal bowel sounds, soft, nontender Extremities- no pretibial edema, no calf tenderness; peripheral pulses intact Neuro- alert, oriented x 3; no gross focal deficits Skin- warm & dry Laboratory Results: Last 24 Hours Test 09/10/17 16:36 09/10/17 16:44 09/10/17 17:24 09/10/17 20:29 Bedside Glucose 55 mg/dl 55 mg/dl 91 mg/dl 204 mg/dl Test 09/11/17 06:33 09/11/17 06:57 09/11/17 11:12 09/11/17 11:20 White Blood Count 4.47 K/uL Red Blood Count 2.81 M/uL Hemoglobin 8.3 g/dL Hematocrit 24.2 % Mean Corpuscular Volume 86.1 fL Mean Corpuscular Hemoglobin 29.5 pg Mean Corpuscular Hemoglobin Concent 34.3 g/dl RDW Standard Deviation 42.4 fL RDW Coefficient of Variation 13.4 % Platelet Count 249 K/uL Mean Platelet Volume 9.7 fL Sodium Level 139 mmol/L Potassium Level 5.1 mmol/L Chloride Level 109 mmol/L Carbon Dioxide Level 21 mmol/L Anion Gap 8.0 mmol/L Blood Urea Nitrogen 55 mg/dl Creatinine 3.79 mg/dl Est Creatinine Clear Calc Drug Dose 16.4 ml/min Estimated GFR () 15.3 Estimated GFR (Non- 13.2 BUN/Creatinine Ratio 14.5 Random Glucose 126 mg/dl Calcium Level 7.9 mg/dl Iron Level 131 mcg/dl Total Iron Binding Capacity 220 mcg/dl Transferrin 173 mg/dl Transferrin % Saturation 54 % Ferritin 108.0 ng/ml Vitamin B12 Level 667 pg/mL Folate 10.31 ng/mL Bedside Glucose 133 mg/dl 326 mg/dl 329 mg/dl Assessment & Plan Hyperglycemia Uncontrolled diabetes type 1 -Patient presenting from [facility] for hyperglycemia for the past 3 days, patient is a type I diabetic with insulin pump however has been malfunctioning over the weekend -In the ED patient's blood sugars found to be 474 -No signs of DKA -- Insulin drip discontinued now on Insulin Lantus and ISS titrating Insulin Lantus at present appreciate Pharmacy Glycemic consult Acute Renal Failure on CKD stage IV -Likely prerenal etiology -Patient's baseline creatinine runs around 3.5, does have a fistula in place however has not started dialysis yet - Nephrology consulted on IV NSS crea improving to 3.7 d/c IV fluids today (BP elevated) monitor Dry cough - CXR: no pneumonia - possible Bronchitis? start Doxycycline 100mg BID - Speech Therapy consulted Atypical Chest pain, Resolved, -Initial troponin negative, EKG without acute ST changes -Cardiac cath 2015 shows nonobstructive coronary disease -Stress test 06/2017 showed a possible small area of ischemia in the anterior wall -- Troponins negative echo unchanged - Continue aspirin, statin, beta-wiley Hyperkalemia - resolved Recent CVA -Continue aspirin and statin History of seizures -Continue Depakote Hypertension -BP elevated dc IV fluids add PRN Clonidine continue amlodipine, hydralazine, carvedilol Anemia due to CKD -Baseline hemoglobin runs around 7-8 - Hg 7.3 ordered 1 unit pRBC Hg improved to 8.3 DVT prophylaxis -SQ heparin CODE STATUS -Patient is a full code Disposition anticipate return to SNF when blood glucose stable and cleared by Nephro Echo: * -- Conclusions -- * No significant change compared to previous study of 08/29/17. * Normal LV chamber size with mild concentric LVH. * Normal LV systolic function, EF 60-65%. * No segmental left ventricular wall motion abnormalities are noted. * Grade II diastolic dysfunction. * Aortic valve sclerosis mild, without significant aortic valvular stenosis. There is focal thickening and calcification at the non coronary cusp. Mild aortic Current Inpatient Medications: Current Inpatient Medications Medications (Trade) Dose Ordered Sig/Latasha Route Start Time Stop Time Status Last Admin Dose Admin Heparin Sodium (Porcine) (Heparin Sq 5000 Unit/0.5ml) 5,000 unit Q8 SQ 09/09/17 22:00 10/09/17 21:59 09/11/17 13:04 5,000 UNIT Sodium Chloride 1,000 ml @ 125 mls/hr Q8H IV 09/09/17 20:00 10/09/17 19:59 09/11/17 11:51 125 MLS/HR Acetaminophen (Tylenol Tab) 650 mg Q4H PRN PO 09/09/17 18:00 10/09/17 17:59 09/09/17 21:15 650 MG Ondansetron HCl (Zofran Inj) 4 mg Q6H PRN IV 09/09/17 18:00 10/09/17 17:59 Miscellaneous Information (Consult Glycemic Management Pharmacy) 1 ea UD PRN N/A 09/09/17 18:10 10/09/17 18:09 Amlodipine Besylate (Norvasc Tab) 10 mg DAILY PO 09/10/17 09:00 10/10/17 08:59 09/11/17 08:24 10 MG Aspirin (Ecotrin Tab) 81 mg QAM PO 09/10/17 09:00 10/10/17 08:59 09/11/17 08:24 81 MG Atorvastatin Calcium (Lipitor Tab) 40 mg DAILY PO 09/10/17 09:00 10/10/17 08:59 09/11/17 08:26 40 MG Carvedilol (Coreg Tab) 25 mg BIDM PO 09/10/17 07:30 10/10/17 07:59 09/11/17 08:25 25 MG Divalproex Sodium (Depakote Delay Rel Tab) 500 mg Q12 PO 09/09/17 21:00 10/09/17 20:59 09/11/17 08:24 500 MG Docusate Sodium (coLACE CAP) 100 mg BID PRN PO 09/09/17 18:15 10/09/17 18:14 Hydralazine HCl (Apresoline Tab) 50 mg QID PO 09/09/17 21:00 10/09/17 20:59 09/11/17 11:51 50 MG Multivitamins/ Minerals (Multivitamin W/ Minerals Tab) 1 tab DAILY PO 09/10/17 09:00 10/10/17 08:59 09/11/17 08:26 1 TAB Nortriptyline HCl (Pamelor Cap) 75 mg HS PO 09/09/17 21:00 10/09/17 20:59 09/10/17 21:26 75 MG Pantoprazole Sodium (Protonix Tab) 40 mg DAILY PO 09/10/17 09:00 10/10/17 08:59 09/11/17 08:26 40 MG Senna/Docusate Sodium (Senokot S Tab) 1 tab DAILY PO 09/10/17 09:00 10/10/17 08:59 09/11/17 08:25 1 TAB Sucralfate (Carafate Tab) 1 gm DAILY PO 09/10/17 09:00 10/10/17 08:59 09/11/17 08:26 1 GM Cholecalciferol (Vitamin D Tab) 2,000 inter.unit DAILY PO 09/10/17 09:00 10/10/17 08:59 09/11/17 08:25 2,000 INTER.UNIT Ferrous Sulfate (Feosol Tab) 325 mg TIDM PO 09/10/17 07:30 10/10/17 07:59 09/11/17 11:50 325 MG Miscellaneous Information (Order Awaiting Action) 1 ea QS N/A 09/10/17 00:00 10/10/17 00:00 Polyethylene (Miralax Powder Packet) 17 gm DAILY PRN PO 09/09/17 18:15 10/09/17 18:14 Oxycodone/ Acetaminophen (Percocet 5-325mg Tab) 1 tab Q6H PRN PO 09/09/17 22:45 09/23/17 22:44 09/11/17 08:25 1 TAB Hydromorphone HCl (Dilaudid Inj) 0.5 mg Q6H PRN IV 09/09/17 22:45 09/23/17 22:44 09/10/17 15:44 0.5 MG Insulin Aspart (novoLOG ASPART) SLIDING SCALE ACHS SC 09/10/17 08:15 10/10/17 08:14 09/11/17 11:59 10 UNITS Insulin Glargine (Lantus Solostar Pen) 18 units DAILY SQ 09/11/17 09:00 10/11/17 08:59 Future hold 09/11/17 08:27 18 UNITS
[2017-09-11] MEDS ORDERED: LIDODERM (LIDOCAINE) PATCH 5% TD ONE (17:44)
[2017-09-11] MEDS: NORTRIPTYLINE HCL 25 MG CAP PO SCH (20:37)
[2017-09-11] MEDS: CLONIDINE HCL 0.1 MG TAB PO PRN (23:34)
[2017-09-12] VITALS (9 sets, daily range): BP systolic 146–183; BP diastolic 67–85; PULSE 64–78; TEMP 36.6–37.1; O2SAT 93–97
[2017-09-12] MEDS: HEPARIN SOD 5000 UNIT/0.5 ML CARP SQ SCH ×3 (05:54→21:20)
[2017-09-12 06:54] LABS: HEMATOCRIT 26.6 % (37-47); MEAN CELL VOLUME 87.5 fL (80-100); MEAN CORPUSCULAR HEMOGLOBIN 29.6 pg (25-34); MEAN CORPUSCULAR HGB CONC 33.8 g/dl (32-36); MEAN PLATELET VOLUME 10.1 fL (7.4-10.4); PLATELET COUNT 263 K/uL (130-400); RED CELL DISTRIBUTION WIDTH CV 13.4 % (11.5-14.5); RED CELL DISTRIBUTION WIDTH SD 43.1 fL (36.4-46.3); WHITE BLOOD COUNT 7.73 K/uL (4.8-10.8)
[2017-09-12 07:32] LABS: CALCIUM 8.2 mg/dl (8.5-10.1); CREATININE 3.72 mg/dl (0.60-1.20); POTASSIUM 5.3 mmol/L (3.5-5.1)
[2017-09-12] MEDS: FERROUS SULFATE 325 MG TAB PO SCH ×3 (07:42→17:05)
[2017-09-12] MEDS: CHOLECALCIFEROL 1000 INTER.UNIT TAB PO SCH (07:42)
[2017-09-12] MEDS: LIDODERM (LIDOCAINE) PATCH 5% TD SCH (07:42)
[2017-09-12] MEDS: ATORVASTATIN 40 MG TAB PO SCH (07:42)
[2017-09-12] MEDS: DOCUSATE SODIUM/SENNA 50/8.6MG TAB PO SCH (07:43)
[2017-09-12] MEDS: PANTOprazole SOD 40 MG TAB PO SCH (07:43)
[2017-09-12] MEDS: CEROVITE ADV FORMULA TAB PO SCH (07:43)
[2017-09-12] MEDS: SUCRALFATE 1 GM TAB PO SCH (07:43)
[2017-09-12] MEDS: AMLODIPINE BESYLATE 5 MG TAB PO SCH (07:43)
[2017-09-12] MEDS: DIVALPROEX SODIUM 500 MG DELAY RELEASE TAB PO SCH ×2 (07:43→21:08)
[2017-09-12] MEDS: ASPIRIN 81 MG ECTAB PO SCH (07:44)
[2017-09-12] MEDS: CARVEDILOL 25 MG TAB PO SCH ×2 (07:45→17:03)
[2017-09-12] MEDS ORDERED: INSULIN HUMAN REGULAR IV BOLUS 6 UNIT in SYRINGE 0 ML IV SCH (07:45)
[2017-09-12] MEDS: INSULIN ASPART 100 UNITS/ML 3 ML PEN SC SCH ×4 (07:53→21:00)
[2017-09-12] MEDS: INSULIN GLARGINE SOLOSTAR 100 UNITS/ML 3 ML PEN SQ SCH (07:54)
[2017-09-12] MEDS: BREO ELLIPTA: ORDER AWAITING ACTION SCH ×3 (07:54→23:56)
[2017-09-12] MEDS ORDERED: DOXYCYCLINE HYCLATE 100 MG CAP PO ONE (09:23)
[2017-09-12] MEDS ORDERED: GUAIFENESIN 600 MG TABCR PO ONE (09:23)
--- NOTE | 2017-09-12 09:33 | Progress Note ---
Medicine Progress Note Date & Time of Visit: Sep 12, 2017 at 09:26. Subjective seen resting in bed sleeping but easily awakened comfortable (+) cough, unable to expectorate phlegm, has some dyspnea denies headache, nausea, abdominal pain no chest pain, dizziness no other symptoms Objective Last 8 Hrs Date Time Temp Pulse Resp B/P (MAP) Pulse Ox O2 Delivery O2 Flow Rate FiO2 09/12/17 08:00 Room Air 09/12/17 07:36 36.9 70 16 173/85 (114) 95 Room Air 09/12/17 04:00 Room Air 09/12/17 03:43 37.1 78 16 183/70 (107) 93 Room Air Physical Exam: General- oriented x 3, not in distress, speaks in sentences with no effort Eyes- anicteric Neck- no JVD Lungs- mild rales at the bases,no wheezing, good air entry Heart- regular rhythm; no murmur, normal rate Abdomen- normal bowel sounds, soft, nontender Extremities- trace pretibial edema, no calf tendernes Neuro- alert, oriented x 3; no gross focal deficits Skin- warm & dry Laboratory Results: Last 24 Hours Test 09/11/17 11:12 09/11/17 11:20 09/11/17 16:12 09/11/17 20:14 Bedside Glucose 326 mg/dl 329 mg/dl 340 mg/dl 108 mg/dl Test 09/12/17 06:27 09/12/17 06:58 White Blood Count 7.73 K/uL Red Blood Count 3.04 M/uL Hemoglobin 9.0 g/dL Hematocrit 26.6 % Mean Corpuscular Volume 87.5 fL Mean Corpuscular Hemoglobin 29.6 pg Mean Corpuscular Hemoglobin Concent 33.8 g/dl RDW Standard Deviation 43.1 fL RDW Coefficient of Variation 13.4 % Platelet Count 263 K/uL Mean Platelet Volume 10.1 fL Sodium Level 137 mmol/L Potassium Level 5.3 mmol/L Chloride Level 107 mmol/L Carbon Dioxide Level 21 mmol/L Anion Gap 9.0 mmol/L Blood Urea Nitrogen 48 mg/dl Creatinine 3.72 mg/dl Est Creatinine Clear Calc Drug Dose 16.7 ml/min Estimated GFR () 15.6 Estimated GFR (Non- 13.5 BUN/Creatinine Ratio 13.0 Random Glucose 409 mg/dl Calcium Level 8.2 mg/dl Beta-Hydroxybutyric Acid 3.38 mg/dL Bedside Glucose 430 mg/dl Assessment & Plan Hyperglycemia Uncontrolled diabetes type 1 -Patient presenting from [facility] for hyperglycemia for the past 3 days, patient is a type I diabetic with insulin pump however has been malfunctioning over the weekend -In the ED patient's blood sugars found to be 474 -No signs of DKA -- Insulin drip discontinued now on Insulin Lantus and ISS -- (+) hyperglycemia ISS tightened Lantus 18 unit daily appreciate Pharmacy Glycemic consult -- monitor closely plan to return to [facility] when BSGs are more stable Acute Renal Failure on CKD stage IV -Likely prerenal etiology -Patient's baseline creatinine runs around 3.5, does have a fistula in place however has not started dialysis yet - Nephrology consulted on IV NSS crea improved to 3.7 d/c IV fluids as BP already elevated, trace pretibial edema encouraged PO intake monitor Dry cough - CXR: no pneumonia - possible Bronchitis? start Doxycycline 100mg BID Nebs Mucinex - Speech Therapy consulted continue mechanical soft, moist diet Atypical Chest pain, Resolved, -Initial troponin negative, EKG without acute ST changes -Cardiac cath 2015 shows nonobstructive coronary disease -Stress test 06/2017 showed a possible small area of ischemia in the anterior wall -- Troponins negative echo unchanged - Continue aspirin, statin, beta-wiley Hyperkalemia K 5.3 repeat at 12 noon Recent CVA -Continue aspirin and statin History of seizures -Continue Depakote Hypertension -BP elevated dc IV fluids PRN Clonidine continue amlodipine, hydralazine, carvedilol - monitor Anemia due to CKD -Baseline hemoglobin runs around 7-8 - Hg 7.3 ordered 1 unit pRBC Hg improved to 8.3 DVT prophylaxis -SQ heparin CODE STATUS -Patient is a full code Disposition anticipate return to SNF when blood glucose stable and cleared by Nephro, BP stable Echo: * -- Conclusions -- * No significant change compared to previous study of 08/29/17. * Normal LV chamber size with mild concentric LVH. * Normal LV systolic function, EF 60-65%. * No segmental left ventricular wall motion abnormalities are noted. * Grade II diastolic dysfunction. * Aortic valve sclerosis mild, without significant aortic valvular stenosis. There is focal thickening and calcification at the non coronary cusp. Mild aortic Current Inpatient Medications: Current Inpatient Medications Medications (Trade) Dose Ordered Sig/Latasha Route Start Time Stop Time Status Last Admin Dose Admin Heparin Sodium (Porcine) (Heparin Sq 5000 Unit/0.5ml) 5,000 unit Q8 SQ 09/09/17 22:00 10/09/17 21:59 09/12/17 05:54 5,000 UNIT Acetaminophen (Tylenol Tab) 650 mg Q4H PRN PO 09/09/17 18:00 10/09/17 17:59 09/09/17 21:15 650 MG Ondansetron HCl (Zofran Inj) 4 mg Q6H PRN IV 09/09/17 18:00 10/09/17 17:59 Miscellaneous Information (Consult Glycemic Management Pharmacy) 1 ea UD PRN N/A 09/09/17 18:10 10/09/17 18:09 Amlodipine Besylate (Norvasc Tab) 10 mg DAILY PO 09/10/17 09:00 10/10/17 08:59 09/12/17 07:43 10 MG Aspirin (Ecotrin Tab) 81 mg QAM PO 09/10/17 09:00 10/10/17 08:59 09/12/17 07:44 81 MG Atorvastatin Calcium (Lipitor Tab) 40 mg DAILY PO 09/10/17 09:00 10/10/17 08:59 09/12/17 07:42 40 MG Carvedilol (Coreg Tab) 25 mg BIDM PO 09/10/17 07:30 10/10/17 07:59 09/12/17 07:45 25 MG Divalproex Sodium (Depakote Delay Rel Tab) 500 mg Q12 PO 09/09/17 21:00 10/09/17 20:59 09/12/17 07:43 500 MG Docusate Sodium (coLACE CAP) 100 mg BID PRN PO 09/09/17 18:15 10/09/17 18:14 Hydralazine HCl (Apresoline Tab) 50 mg QID PO 09/09/17 21:00 10/09/17 20:59 09/12/17 07:44 50 MG Multivitamins/ Minerals (Multivitamin W/ Minerals Tab) 1 tab DAILY PO 09/10/17 09:00 10/10/17 08:59 09/12/17 07:43 1 TAB Nortriptyline HCl (Pamelor Cap) 75 mg HS PO 09/09/17 21:00 10/09/17 20:59 09/11/17 20:37 75 MG Pantoprazole Sodium (Protonix Tab) 40 mg DAILY PO 09/10/17 09:00 10/10/17 08:59 09/12/17 07:43 40 MG Senna/Docusate Sodium (Senokot S Tab) 1 tab DAILY PO 09/10/17 09:00 10/10/17 08:59 09/12/17 07:43 1 TAB Sucralfate (Carafate Tab) 1 gm DAILY PO 09/10/17 09:00 10/10/17 08:59 09/12/17 07:43 1 GM Cholecalciferol (Vitamin D Tab) 2,000 inter.unit DAILY PO 09/10/17 09:00 10/10/17 08:59 09/12/17 07:42 2,000 INTER.UNIT Ferrous Sulfate (Feosol Tab) 325 mg TIDM PO 09/10/17 07:30 10/10/17 07:59 09/12/17 07:42 325 MG Miscellaneous Information (Order Awaiting Action) 1 ea QS N/A 09/10/17 00:00 10/10/17 00:00 Polyethylene (Miralax Powder Packet) 17 gm DAILY PRN PO 09/09/17 18:15 10/09/17 18:14 Oxycodone/ Acetaminophen (Percocet 5-325mg Tab) 1 tab Q6H PRN PO 09/09/17 22:45 09/23/17 22:44 09/11/17 23:34 1 TAB Insulin Aspart (novoLOG ASPART) SLIDING SCALE ACHS SC 09/10/17 08:15 10/10/17 08:14 09/12/17 07:53 18 UNITS Insulin Glargine (Lantus Solostar Pen) 18 units DAILY SQ 09/11/17 09:00 10/11/17 08:59 Future hold 09/12/17 07:54 18 UNITS Clonidine HCl (Catapres Tab) 0.1 mg Q6H PRN PO 09/11/17 16:45 10/11/17 16:44 09/11/17 23:34 0.1 MG Lidocaine (Lidoderm Patch 5%) 1 patch QAM TD 09/12/17 09:00 10/12/17 08:59 09/12/17 07:42 1 PATCH Miscellaneous (Remove Lidoderm Patch) 1 ea DAILY@21 N/A 09/11/17 21:00 10/11/17 20:59 09/11/17 20:37 1 EA Cyclobenzaprine HCl (Flexeril Tab) 5 mg BID PRN PO 09/11/17 17:45 10/11/17 17:44
--- NOTE | 2017-09-12 13:50 | Pharmacy Progress Note ---
Pharmacy Glycemic Short Note 2 Date of Service Sep 12, 2017. OUTPATIENT ANTIDIABETIC REGIMEN: * NovoLog Insulin Pump * Non-functioning at this time. * Basal rate: 0.6 units/hr * CF: 90, CR: 30 ASSESSMENT: * 47yo T1DM female with hyperglycemia secondary to pump malfunction. * Pt was initiated on IV insulin infusion at time of admission and was transitioned to SQ basal + bolus insulin on 09/10/17 * BSGs yesterday were [phone] * received 18 units of basal insulin (47 units total) * received 2 x 6 units IV boluses * Fasting blood sugar this morning was 430 mg/dL (409 mg/dL on PRP) ... continue current Lantus dose as this is already 3 units above the pump rate. Nurse states patient did not eat prior to this check. Gave patient a 6 unit IV bolus as this was effective yesterday. Lunch blood sugar check was 201 mg/dL which was effective. * For Lantus, provided range dosing for tomorrow with both 15 and 18 units. Do not want to give 20 units as whenever patient received this she had a low blood sugar. Scheduled a Novolog check at 0200 with loosened parameters to establish some blood sugar trends overnight. For Novolog, continue tightened parameters. In actuality these parameters are not much tighter than what patient is on at home. PLAN FOR INPATIENT GLYCEMIC CONTROL: * Basal insulin * Lantus 15 units SQ daily if blood sugar less than 110 mg/dL and 18 units SQ daily if blood sugar 110 mg/dL or greater * Bolus insulin - tighten * NovoLog per scale ACHS or Q6hrs while NPO * Goal Range: Low 120 mg/dL - High 140 mg/dL * Correction Factor: 25 mg/dL/unit * Nutritional / Prandial insulin per carb ratio of 1 unit per 8 grams CHO consumed * Regular insulin 6 unit IV bolus x 1 for BSG of 430 mg/dL at breakfast Thank you.
[2017-09-12] MEDS: LEVALBUTEROL 0.63MG/3 ML NEB INH SCH ×3 (14:07→18:59)
--- NOTE | 2017-09-12 14:33 | Nephrology Progress Note ---
Nephrology Progress Note Date of Service: Sep 12, 2017. Subjective 47 yo female with geovani on ckd stage 4 who continues to improve. still having issues with elevated blood sugars. bp also elevated. iv fluids stopped. appetite is good. continues to have cough. Objective Date Time Temp Pulse Resp B/P (MAP) Pulse Ox O2 Delivery O2 Flow Rate FiO2 09/12/17 14:11 65 16 96 Room Air 09/12/17 12:10 36.7 67 20 155/67 (96) 95 Room Air 09/12/17 12:00 Room Air 09/12/17 08:00 Room Air 09/12/17 07:36 36.9 70 16 173/85 (114) 95 Room Air 09/12/17 04:00 Room Air 09/12/17 03:43 37.1 78 16 183/70 (107) 93 Room Air 09/12/17 00:40 76 170/71 (104) 93 09/11/17 23:59 Room Air 09/11/17 23:38 37.1 76 16 174/70 (104) 94 Room Air 09/11/17 20:12 36.5 72 20 157/72 (100) 94 Room Air 09/11/17 20:00 Room Air 09/11/17 17:57 75 172/69 (103) 09/11/17 16:00 Room Air 09/11/17 15:44 36.4 73 20 186/76 (112) 93 Room Air Physical Exam: General-aaox3 Eyes-no scleral icterus ENT-mmm Neck-supple Lungs-basilar rales Heart-regular Abdomen-bs+ s/nt Extremities-no c/c/e Neuro-nonfocal Current Inpatient Medications Medications (Trade) Dose Ordered Sig/Latasha Route Start Time Stop Time Status Last Admin Dose Admin Heparin Sodium (Porcine) (Heparin Sq 5000 Unit/0.5ml) 5,000 unit Q8 SQ 09/09/17 22:00 10/09/17 21:59 09/12/17 12:45 5,000 UNIT Acetaminophen (Tylenol Tab) 650 mg Q4H PRN PO 09/09/17 18:00 10/09/17 17:59 09/09/17 21:15 650 MG Ondansetron HCl (Zofran Inj) 4 mg Q6H PRN IV 09/09/17 18:00 10/09/17 17:59 Miscellaneous Information (Consult Glycemic Management Pharmacy) 1 ea UD PRN N/A 09/09/17 18:10 10/09/17 18:09 Amlodipine Besylate (Norvasc Tab) 10 mg DAILY PO 09/10/17 09:00 10/10/17 08:59 09/12/17 07:43 10 MG Aspirin (Ecotrin Tab) 81 mg QAM PO 09/10/17 09:00 10/10/17 08:59 09/12/17 07:44 81 MG Atorvastatin Calcium (Lipitor Tab) 40 mg DAILY PO 09/10/17 09:00 10/10/17 08:59 09/12/17 07:42 40 MG Carvedilol (Coreg Tab) 25 mg BIDM PO 09/10/17 07:30 10/10/17 07:59 09/12/17 07:45 25 MG Divalproex Sodium (Depakote Delay Rel Tab) 500 mg Q12 PO 09/09/17 21:00 10/09/17 20:59 09/12/17 07:43 500 MG Docusate Sodium (coLACE CAP) 100 mg BID PRN PO 09/09/17 18:15 10/09/17 18:14 Hydralazine HCl (Apresoline Tab) 50 mg QID PO 09/09/17 21:00 10/09/17 20:59 09/12/17 12:41 50 MG Multivitamins/ Minerals (Multivitamin W/ Minerals Tab) 1 tab DAILY PO 09/10/17 09:00 10/10/17 08:59 09/12/17 07:43 1 TAB Nortriptyline HCl (Pamelor Cap) 75 mg HS PO 09/09/17 21:00 10/09/17 20:59 09/11/17 20:37 75 MG Pantoprazole Sodium (Protonix Tab) 40 mg DAILY PO 09/10/17 09:00 10/10/17 08:59 09/12/17 07:43 40 MG Senna/Docusate Sodium (Senokot S Tab) 1 tab DAILY PO 09/10/17 09:00 10/10/17 08:59 09/12/17 07:43 1 TAB Sucralfate (Carafate Tab) 1 gm DAILY PO 09/10/17 09:00 10/10/17 08:59 09/12/17 07:43 1 GM Cholecalciferol (Vitamin D Tab) 2,000 inter.unit DAILY PO 09/10/17 09:00 10/10/17 08:59 09/12/17 07:42 2,000 INTER.UNIT Ferrous Sulfate (Feosol Tab) 325 mg TIDM PO 09/10/17 07:30 10/10/17 07:59 09/12/17 11:40 325 MG Miscellaneous Information (Order Awaiting Action) 1 ea QS N/A 09/10/17 00:00 10/10/17 00:00 Polyethylene (Miralax Powder Packet) 17 gm DAILY PRN PO 09/09/17 18:15 10/09/17 18:14 Oxycodone/ Acetaminophen (Percocet 5-325mg Tab) 1 tab Q6H PRN PO 09/09/17 22:45 09/23/17 22:44 09/11/17 23:34 1 TAB Insulin Aspart (novoLOG ASPART) SLIDING SCALE ACHS SC 09/10/17 08:15 10/10/17 08:14 09/12/17 11:39 6 UNITS Clonidine HCl (Catapres Tab) 0.1 mg Q6H PRN PO 09/11/17 16:45 10/11/17 16:44 09/11/17 23:34 0.1 MG Lidocaine (Lidoderm Patch 5%) 1 patch QAM TD 09/12/17 09:00 10/12/17 08:59 09/12/17 07:42 1 PATCH Miscellaneous (Remove Lidoderm Patch) 1 ea DAILY@21 N/A 09/11/17 21:00 10/11/17 20:59 09/11/17 20:37 1 EA Cyclobenzaprine HCl (Flexeril Tab) 5 mg BID PRN PO 09/11/17 17:45 10/11/17 17:44 Doxycycline Hyclate (Vibramycin Cap) 100 mg BID PO 09/12/17 21:00 09/18/17 21:01 Levalbuterol (Xopenex 0.63 Mg/ 3 Ml Neb) 0.63 mg Q6R INH 09/12/17 10:00 10/12/17 09:59 09/12/17 14:10 0.63 MG Guaifenesin (Mucinex Contr Rel Tab) 600 mg Q12 PO 09/12/17 21:00 10/12/17 20:59 Insulin Aspart (novoLOG ASPART) SLIDING SCALE TODAY@0200 SC 09/13/17 02:00 09/13/17 02:01 Insulin Glargine (Lantus Solostar Pen) SEE PROTOCOL TEXT DAILY SQ 09/13/17 09:00 10/13/17 08:59 Last 24 Hours Test 09/11/17 16:12 09/11/17 20:14 09/12/17 06:27 09/12/17 06:58 Bedside Glucose 340 mg/dl 108 mg/dl 430 mg/dl White Blood Count 7.73 K/uL Red Blood Count 3.04 M/uL Hemoglobin 9.0 g/dL Hematocrit 26.6 % Mean Corpuscular Volume 87.5 fL Mean Corpuscular Hemoglobin 29.6 pg Mean Corpuscular Hemoglobin Concent 33.8 g/dl RDW Standard Deviation 43.1 fL RDW Coefficient of Variation 13.4 % Platelet Count 263 K/uL Mean Platelet Volume 10.1 fL Sodium Level 137 mmol/L Potassium Level 5.3 mmol/L Chloride Level 107 mmol/L Carbon Dioxide Level 21 mmol/L Anion Gap 9.0 mmol/L Blood Urea Nitrogen 48 mg/dl Creatinine 3.72 mg/dl Est Creatinine Clear Calc Drug Dose 16.7 ml/min Estimated GFR () 15.6 Estimated GFR (Non- 13.5 BUN/Creatinine Ratio 13.0 Random Glucose 409 mg/dl Calcium Level 8.2 mg/dl Beta-Hydroxybutyric Acid 3.38 mg/dL Test 09/12/17 09:20 09/12/17 11:33 09/12/17 11:59 Bedside Glucose 383 mg/dl 201 mg/dl Potassium Level 4.7 mmol/L Assessment & Plan GEOVANI on ckd stage 5-dum-lyxatypq-creatinine back to baseline. concern for volume overload and elevated blood pressures so iv fluids were stopped. no uremic symptoms. Anemia of renal failure-iron levels are good. likely with element of anemia of ckd. could consider doing procrit as an outpt. HTN: bp is elevated. currently on norvasc 10mg a day, coreg 25 bid, hydralazine 50 qid, currently on outpt bp regimen. may need to add another agent. with blood sugars better and appropriately resuscitated, may consider starting diuretic.
[2017-09-12] MEDS: GUAIFENESIN 600 MG TABCR PO SCH (21:08)
[2017-09-12] MEDS: NORTRIPTYLINE HCL 25 MG CAP PO SCH (21:08)
[2017-09-12] MEDS: DOXYCYCLINE HYCLATE 100 MG CAP PO SCH (21:09)
[2017-09-12] MEDS: ACETAMINOPHEN 325 MG TAB PO PRN (21:27)
[2017-09-13] VITALS (9 sets, daily range): BP systolic 144–195; BP diastolic 63–73; PULSE 64–75; TEMP 36.5–36.9; O2SAT 94–98; BMI 27.9
[2017-09-13] MEDS: LEVALBUTEROL 0.63MG/3 ML NEB INH SCH ×4 (01:51→19:24)
[2017-09-13] MEDS ORDERED: INSULIN ASPART 100 UNITS/ML 3 ML PEN SC SCH (02:00)
[2017-09-13] MEDS: HEPARIN SOD 5000 UNIT/0.5 ML CARP SQ SCH ×3 (05:50→20:00)
[2017-09-13 06:10] LABS: CALCIUM 8.1 mg/dl (8.5-10.1); CREATININE 3.67 mg/dl (0.60-1.20); POTASSIUM 5.1 mmol/L (3.5-5.1)
[2017-09-13] MEDS: BREO ELLIPTA: ORDER AWAITING ACTION SCH ×3 (08:00→20:01)
[2017-09-13] MEDS: INSULIN ASPART 100 UNITS/ML 3 ML PEN SC SCH ×4 (08:46→21:00)
[2017-09-13] MEDS: DOXYCYCLINE HYCLATE 100 MG CAP PO SCH ×2 (08:47→19:59)
[2017-09-13] MEDS: DIVALPROEX SODIUM 500 MG DELAY RELEASE TAB PO SCH ×2 (08:48→19:57)
[2017-09-13] MEDS: LIDODERM (LIDOCAINE) PATCH 5% TD SCH (08:49)
[2017-09-13] MEDS: PANTOprazole SOD 40 MG TAB PO SCH (08:49)
[2017-09-13] MEDS: CEROVITE ADV FORMULA TAB PO SCH (08:50)
[2017-09-13] MEDS: SUCRALFATE 1 GM TAB PO SCH (08:50)
[2017-09-13] MEDS: GUAIFENESIN 600 MG TABCR PO SCH ×2 (08:50→19:58)
[2017-09-13] MEDS: FERROUS SULFATE 325 MG TAB PO SCH ×3 (08:50→17:54)
[2017-09-13] MEDS: ATORVASTATIN 40 MG TAB PO SCH (08:50)
[2017-09-13] MEDS: CHOLECALCIFEROL 1000 INTER.UNIT TAB PO SCH (08:50)
[2017-09-13] MEDS: CARVEDILOL 25 MG TAB PO SCH ×2 (08:51→17:55)
[2017-09-13] MEDS: AMLODIPINE BESYLATE 5 MG TAB PO SCH (08:51)
[2017-09-13] MEDS: ASPIRIN 81 MG ECTAB PO SCH (08:51)
[2017-09-13] MEDS: DOCUSATE SODIUM/SENNA 50/8.6MG TAB PO SCH (08:57)
[2017-09-13] MEDS ORDERED: INSULIN GLARGINE SOLOSTAR 100 UNITS/ML 3 ML PEN SQ SCH (09:00)
[2017-09-13] MEDS ORDERED: DEXTROSE 50% 50 ML SYR IV PRN (09:30)
[2017-09-13] MEDS ORDERED: GLUCAGON FOR INJ 1 MG VIAL SQ PRN (09:30)
[2017-09-13] MEDS ORDERED: CLONIDINE HCL 0.1 MG TAB PO ONE ×2 (11:30→12:00)
--- NOTE | 2017-09-13 14:25 | Pharmacy Progress Note ---
Pharmacy Glycemic Short Note 2 Date of Service Sep 13, 2017. OUTPATIENT ANTIDIABETIC REGIMEN: * NovoLog Insulin Pump * Non-functioning at this time. * Basal rate: 0.6 units/hr * CF: 90, CR: 30 ASSESSMENT: * 47yo T1DM female with hyperglycemia secondary to pump malfunction. * Pt was initiated on IV insulin infusion at time of admission and was transitioned to SQ basal + bolus insulin on 09/10/17 * BSGs yesterday were [phone] * received 18 units of basal insulin (32 units total) * received 1 x 6 units IV boluses * Fasting blood sugar this morning was 152 mg/dL ... continue current Lantus dose as this is already 3 units above the pump rate. The 0200 check's blood sugar was 225 mg/dL and the patient received 2 units of Novolog. Perhaps Lantus does not last 24 hours in this patient? Repeat this same strategy tonight and if the same this occurs, reduce basal insulin tomorrow morning so that a dose of Lantus can be given in the evening. Do not want to go above 18 units of basal currently as when the patient received 20 units of basal she had a hypoglycemia episode. * For Novolog, blood sugar decreased from breakfast to lunch so loosen parameters PLAN FOR INPATIENT GLYCEMIC CONTROL: * Basal insulin * Lantus 18 units SQ this morning and then evaluate based upon 0200 check * Bolus insulin - * NovoLog per scale ACHS or Q6hrs while NPO * Goal Range: Low 120 mg/dL - High 140 mg/dL * Correction Factor: 30 mg/dL/unit (35 mg/dL/unit at 0200 check) * Nutritional / Prandial insulin per carb ratio of 1 unit per 10 grams CHO consumed (11 grams of CHO consumed at 0200 check) Thank you.
--- NOTE | 2017-09-13 17:21 | Progress Note ---
Medicine Progress Note Date & Time of Visit: Sep 13, 2017 at 17:16. Subjective Seen sitting up in bedside chair Comfortable, talking on the phone Good spirits States she feels good today Cough improving No shortness of breath chest pain Denies other symptoms Objective Last 8 Hrs Date Time Temp Pulse Resp B/P (MAP) Pulse Ox O2 Delivery O2 Flow Rate FiO2 09/13/17 14:04 66 14 94 Room Air 09/13/17 12:00 Room Air 09/13/17 11:34 36.8 75 18 195/73 (113) 98 Room Air Physical Exam: General- oriented x 3, not in distress, speaks in sentences with no effort Eyes- anicteric Neck- no JVD Lungs-clear breath sounds bilaterally no rales or wheezes Heart- regular rhythm; no murmur, normal rate Abdomen- normal bowel sounds, soft, nontender Extremities- trace pretibial edema, no calf tenderness Neuro- alert, oriented x 3; no gross focal deficits Skin- warm & dry Laboratory Results: Last 24 Hours Test 09/12/17 21:11 09/13/17 02:00 09/13/17 05:08 09/13/17 06:40 Bedside Glucose 150 mg/dl 225 mg/dl 152 mg/dl Sodium Level 140 mmol/L Potassium Level 5.1 mmol/L Chloride Level 109 mmol/L Carbon Dioxide Level 23 mmol/L Anion Gap 8.0 mmol/L Blood Urea Nitrogen 50 mg/dl Creatinine 3.67 mg/dl Est Creatinine Clear Calc Drug Dose 16.9 ml/min Estimated GFR () 15.9 Estimated GFR (Non- 13.7 BUN/Creatinine Ratio 13.6 Random Glucose 181 mg/dl Calcium Level 8.1 mg/dl Test 09/13/17 11:30 09/13/17 16:32 09/13/17 16:56 Bedside Glucose 103 mg/dl 35 mg/dl 171 mg/dl Assessment & Plan Hyperglycemia Uncontrolled diabetes type 1 -Patient presenting from [facility] for hyperglycemia for the past 3 days, patient is a type I diabetic with insulin pump however has been malfunctioning over the weekend -In the ED patient's blood sugars found to be 474 -No signs of DKA -- Insulin drip discontinued now on Insulin Lantus and ISS -- (+) hyperglycemia, hypoglycemia ISS tightened Lantus 18 unit daily appreciate Pharmacy Glycemic consult -- monitor closely plan to return to [facility] when BSGs are more stable Acute Renal Failure on CKD stage IV -Likely prerenal etiology -Patient's baseline creatinine runs around 3.5, does have a fistula in place however has not started dialysis yet - Nephrology consulted on IV NSS crea further improved to 3.6 d/c IV fluids as BP already elevated, trace pretibial edema encouraged PO intake monitor Hypertension -BP elevated dc IV fluids -Clonidine 0.1 mg p.o. twice daily Lasix 20mg po one continue amlodipine, hydralazine, carvedilol - monitor Acute bronchitis - CXR: no pneumonia Started doxycycline 100mg BID Nebs Mucinex Improving - Speech Therapy consulted continue mechanical soft, moist diet Atypical Chest pain, Resolved, -Initial troponin negative, EKG without acute ST changes -Cardiac cath 2015 shows nonobstructive coronary disease -Stress test 06/2017 showed a possible small area of ischemia in the anterior wall -- Troponins negative echo unchanged - Continue aspirin, statin, beta-wiley Hyperkalemia Resolved Recent CVA -Continue aspirin and statin History of seizures -Continue Depakote Anemia due to CKD -Baseline hemoglobin runs around 7-8 - Hg 7.3 ordered 1 unit pRBC Hg improved to 8.3 DVT prophylaxis -SQ heparin CODE STATUS -Patient is a full code Disposition anticipate return to SNF when blood glucose stable and cleared by Nephro, BP stable Echo: * -- Conclusions -- * No significant change compared to previous study of 08/29/17. * Normal LV chamber size with mild concentric LVH. * Normal LV systolic function, EF 60-65%. * No segmental left ventricular wall motion abnormalities are noted. * Grade II diastolic dysfunction. * Aortic valve sclerosis mild, without significant aortic valvular stenosis. There is focal thickening and calcification at the non coronary cusp. Mild aortic Current Inpatient Medications: Current Inpatient Medications Medications (Trade) Dose Ordered Sig/Latasha Route Start Time Stop Time Status Last Admin Dose Admin Heparin Sodium (Porcine) (Heparin Sq 5000 Unit/0.5ml) 5,000 unit Q8 SQ 09/09/17 22:00 10/09/17 21:59 09/13/17 14:22 5,000 UNIT Acetaminophen (Tylenol Tab) 650 mg Q4H PRN PO 09/09/17 18:00 10/09/17 17:59 09/12/17 21:27 650 MG Ondansetron HCl (Zofran Inj) 4 mg Q6H PRN IV 09/09/17 18:00 10/09/17 17:59 Miscellaneous Information (Consult Glycemic Management Pharmacy) 1 ea UD PRN N/A 09/09/17 18:10 10/09/17 18:09 Amlodipine Besylate (Norvasc Tab) 10 mg DAILY PO 09/10/17 09:00 10/10/17 08:59 09/13/17 08:51 10 MG Aspirin (Ecotrin Tab) 81 mg QAM PO 09/10/17 09:00 10/10/17 08:59 09/13/17 08:51 81 MG Atorvastatin Calcium (Lipitor Tab) 40 mg DAILY PO 09/10/17 09:00 10/10/17 08:59 09/13/17 08:50 40 MG Carvedilol (Coreg Tab) 25 mg BIDM PO 09/10/17 07:30 10/10/17 07:59 09/13/17 08:51 25 MG Divalproex Sodium (Depakote Delay Rel Tab) 500 mg Q12 PO 09/09/17 21:00 10/09/17 20:59 09/13/17 08:48 500 MG Docusate Sodium (coLACE CAP) 100 mg BID PRN PO 09/09/17 18:15 10/09/17 18:14 Hydralazine HCl (Apresoline Tab) 50 mg QID PO 09/09/17 21:00 10/09/17 20:59 09/13/17 14:23 50 MG Multivitamins/ Minerals (Multivitamin W/ Minerals Tab) 1 tab DAILY PO 09/10/17 09:00 10/10/17 08:59 09/13/17 08:50 1 TAB Nortriptyline HCl (Pamelor Cap) 75 mg HS PO 09/09/17 21:00 10/09/17 20:59 09/12/17 21:08 75 MG Pantoprazole Sodium (Protonix Tab) 40 mg DAILY PO 09/10/17 09:00 10/10/17 08:59 09/13/17 08:49 40 MG Senna/Docusate Sodium (Senokot S Tab) 1 tab DAILY PO 09/10/17 09:00 10/10/17 08:59 09/12/17 07:43 1 TAB Sucralfate (Carafate Tab) 1 gm DAILY PO 09/10/17 09:00 10/10/17 08:59 09/13/17 08:50 1 GM Cholecalciferol (Vitamin D Tab) 2,000 inter.unit DAILY PO 09/10/17 09:00 10/10/17 08:59 09/13/17 08:50 2,000 INTER.UNIT Ferrous Sulfate (Feosol Tab) 325 mg TIDM PO 09/10/17 07:30 10/10/17 07:59 09/13/17 12:36 325 MG Miscellaneous Information (Order Awaiting Action) 1 ea QS N/A 09/10/17 00:00 10/10/17 00:00 Polyethylene (Miralax Powder Packet) 17 gm DAILY PRN PO 09/09/17 18:15 10/09/17 18:14 Oxycodone/ Acetaminophen (Percocet 5-325mg Tab) 1 tab Q6H PRN PO 09/09/17 22:45 09/23/17 22:44 09/11/17 23:34 1 TAB Insulin Aspart (novoLOG ASPART) SLIDING SCALE ACHS SC 09/10/17 08:15 10/10/17 08:14 09/13/17 12:38 8 UNITS Clonidine HCl (Catapres Tab) 0.1 mg Q6H PRN PO 09/11/17 16:45 10/11/17 16:44 09/11/17 23:34 0.1 MG Lidocaine (Lidoderm Patch 5%) 1 patch QAM TD 09/12/17 09:00 10/12/17 08:59 09/13/17 08:49 1 PATCH Miscellaneous (Remove Lidoderm Patch) 1 ea DAILY@21 N/A 09/11/17 21:00 10/11/17 20:59 09/12/17 21:21 1 EA Cyclobenzaprine HCl (Flexeril Tab) 5 mg BID PRN PO 09/11/17 17:45 10/11/17 17:44 Doxycycline Hyclate (Vibramycin Cap) 100 mg BID PO 09/12/17 21:00 09/18/17 21:01 09/13/17 08:47 100 MG Levalbuterol (Xopenex 0.63 Mg/ 3 Ml Neb) 0.63 mg Q6R INH 09/12/17 10:00 10/12/17 09:59 09/13/17 14:03 0.63 MG Guaifenesin (Mucinex Contr Rel Tab) 600 mg Q12 PO 09/12/17 21:00 10/12/17 20:59 09/13/17 08:50 600 MG Insulin Glargine (Lantus Solostar Pen) SEE PROTOCOL TEXT DAILY SQ 09/13/17 09:00 10/13/17 08:59 09/13/17 08:47 18 UNITS Glucose (Glucose 40% Gel) 15-30 GRAMS 15 GRAMS... UD PRN PO 09/13/17 09:30 10/13/17 09:29 Glucose (Glucose Chew Tab) 4-8 Tablets 4 Tabl... UD PRN PO 09/13/17 09:30 10/13/17 09:29 Dextrose (Dextrose 50% 50ML Syringe) 25-50ML OF 50% DW IV FOR... UD PRN IV 09/13/17 09:30 10/13/17 09:29 09/13/17 16:42 50 ML Glucagon (Glucagon Inj) 1 mg UD PRN SQ 09/13/17 09:30 10/13/17 09:29 Insulin Aspart (novoLOG ASPART) SLIDING SCALE TODAY@0200 SC 09/14/17 02:00 09/14/17 02:01 Clonidine HCl (Catapres Tab) 0.1 mg QAM PO 09/14/17 09:00 10/14/17 08:59
[2017-09-13] MEDS ORDERED: FUROSEMIDE 20 MG TAB PO ONE (17:30)
[2017-09-13] MEDS: OXYCODONE/ACETAMINOPHEN 5-325 TAB PO PRN (18:02)
[2017-09-13] MEDS: CLONIDINE HCL 0.1 MG TAB PO SCH (19:57)
[2017-09-13] MEDS: NORTRIPTYLINE HCL 25 MG CAP PO SCH (19:58)
[2017-09-14] VITALS (10 sets, daily range): BP systolic 134–181; BP diastolic 65–83; PULSE 65–83; TEMP 36.6–37.1; O2SAT 94–98
[2017-09-14] MEDS ORDERED: INSULIN ASPART 100 UNITS/ML 3 ML PEN SC SCH (02:00)
[2017-09-14] MEDS: LEVALBUTEROL 0.63MG/3 ML NEB INH SCH ×4 (02:04→19:01)
[2017-09-14] MEDS: HEPARIN SOD 5000 UNIT/0.5 ML CARP SQ SCH ×3 (05:57→19:32)
[2017-09-14 06:18] LABS: CALCIUM 8.2 mg/dl (8.5-10.1); CREATININE 3.96 mg/dl (0.60-1.20); POTASSIUM 4.8 mmol/L (3.5-5.1)
[2017-09-14] MEDS: CHOLECALCIFEROL 1000 INTER.UNIT TAB PO SCH (08:20)
[2017-09-14] MEDS: FERROUS SULFATE 325 MG TAB PO SCH ×3 (08:20→17:05)
[2017-09-14] MEDS: PANTOprazole SOD 40 MG TAB PO SCH (08:20)
[2017-09-14] MEDS: CLONIDINE HCL 0.1 MG TAB PO SCH ×2 (08:20→19:31)
[2017-09-14] MEDS: DIVALPROEX SODIUM 500 MG DELAY RELEASE TAB PO SCH ×2 (08:21→19:31)
[2017-09-14] MEDS: CEROVITE ADV FORMULA TAB PO SCH (08:21)
[2017-09-14] MEDS: GUAIFENESIN 600 MG TABCR PO SCH ×2 (08:21→19:31)
[2017-09-14] MEDS: DOXYCYCLINE HYCLATE 100 MG CAP PO SCH ×2 (08:21→19:30)
[2017-09-14] MEDS: ASPIRIN 81 MG ECTAB PO SCH (08:21)
[2017-09-14] MEDS: SUCRALFATE 1 GM TAB PO SCH (08:22)
[2017-09-14] MEDS: AMLODIPINE BESYLATE 5 MG TAB PO SCH (08:22)
[2017-09-14] MEDS: CARVEDILOL 25 MG TAB PO SCH ×2 (08:22→17:06)
[2017-09-14] MEDS: ATORVASTATIN 40 MG TAB PO SCH (08:22)
[2017-09-14] MEDS: LIDODERM (LIDOCAINE) PATCH 5% TD SCH (08:23)
[2017-09-14] MEDS: INSULIN ASPART 100 UNITS/ML 3 ML PEN SC SCH ×4 (08:28→21:05)
[2017-09-14] MEDS ORDERED: INSULIN GLARGINE SOLOSTAR 100 UNITS/ML 3 ML PEN SQ SCH (09:00)
[2017-09-14] MEDS ORDERED: CLONIDINE HCL 0.1 MG TAB PO SCH (09:00)
[2017-09-14] MEDS: DOCUSATE SODIUM/SENNA 50/8.6MG TAB PO SCH (09:00)
[2017-09-14] MEDS: BREO ELLIPTA: ORDER AWAITING ACTION SCH ×3 (09:09→21:05)
--- NOTE | 2017-09-14 10:12 | Progress Note ---
Medicine Progress Note Date & Time of Visit: Sep 14, 2017 at 10:11. Subjective Seen sitting up in bed, comfortable, in good spirits Her friend was visiting her States she feels good today Cough is improving Denies headache dizziness chest pain shortness of breath Ambulating with no symptoms Denies other symptoms Objective Last 8 Hrs Date Time Temp Pulse Resp B/P (MAP) Pulse Ox O2 Delivery O2 Flow Rate FiO2 09/14/17 08:00 Room Air 09/14/17 07:55 37.1 70 18 178/72 (107) 97 Room Air 09/14/17 07:14 70 14 98 Room Air 09/14/17 04:00 Room Air 09/14/17 04:00 36.7 70 16 157/65 (95) 96 Room Air Physical Exam: General- oriented x 3, not in distress, speaks in sentences with no effort Eyes- anicteric Neck- no JVD Lungs-clear BS bilaterally No rales, no wheezing Heart- regular rhythm; no murmur, normal rate Abdomen- normal bowel sounds, soft, nontender Extremities- trace pretibial edema, no calf tenderness Neuro- alert, oriented x 3; no gross focal deficits Skin- warm & dry Laboratory Results: Last 24 Hours Test 09/13/17 11:30 09/13/17 16:32 09/13/17 16:56 09/13/17 21:19 Bedside Glucose 103 mg/dl 35 mg/dl 171 mg/dl 75 mg/dl Test 09/13/17 23:46 09/14/17 02:11 09/14/17 05:18 09/14/17 06:40 Bedside Glucose 86 mg/dl 95 mg/dl 123 mg/dl Sodium Level 140 mmol/L Potassium Level 4.8 mmol/L Chloride Level 111 mmol/L Carbon Dioxide Level 24 mmol/L Anion Gap 5.0 mmol/L Blood Urea Nitrogen 51 mg/dl Creatinine 3.96 mg/dl Est Creatinine Clear Calc Drug Dose 15.7 ml/min Estimated GFR () 14.5 Estimated GFR (Non- 12.5 BUN/Creatinine Ratio 12.9 Random Glucose 123 mg/dl Calcium Level 8.2 mg/dl Assessment & Plan Hyperglycemia Uncontrolled diabetes type 1 -Patient presenting from [facility] for hyperglycemia for the past 3 days, patient is a type I diabetic with insulin pump however has been malfunctioning over the weekend -In the ED patient's blood sugars found to be 474 -No signs of DKA -- Insulin drip discontinued now on Insulin Lantus and ISS -- (+) Hypoglycemia ISS loosened Insulin reduced to 14 units daily appreciate Pharmacy Glycemic consult -- monitor closely plan to return to [facility] when BSGs are more stable Acute Renal Failure on CKD stage IV -Likely prerenal etiology -Patient's baseline creatinine runs around 3.5, does have a fistula in place however has not started dialysis yet - Nephrology consulted on IV NSS crea further improved to 3.6 09/14/2017 Creatinine increased to 3.9 Hold further Lasix Monitor Hypertension -BP elevated dc IV fluids -Added clonidine 0.1 mg p.o. twice daily continue amlodipine, hydralazine, carvedilol - monitor blood pressure closely Acute bronchitis - CXR: no pneumonia Started doxycycline 100mg BID Nebs Mucinex Improving daily - Speech Therapy consulted continue mechanical soft, moist diet Atypical Chest pain, Resolved, -Initial troponin negative, EKG without acute ST changes -Cardiac cath 2015 shows nonobstructive coronary disease -Stress test 06/2017 showed a possible small area of ischemia in the anterior wall -- Troponins negative echo unchanged - Continue aspirin, statin, beta-wiley Hyperkalemia Resolved Recent CVA -Continue aspirin and statin History of seizures -Continue Depakote Anemia due to CKD -Baseline hemoglobin runs around 7-8 - Hg 7.3 ordered 1 unit pRBC Hg improved to 8.3 DVT prophylaxis -SQ heparin CODE STATUS -Patient is a full code Disposition anticipate return to SNF when blood glucose and blood pressure stable and renal function stable Echo: * -- Conclusions -- * No significant change compared to previous study of 08/29/17. * Normal LV chamber size with mild concentric LVH. * Normal LV systolic function, EF 60-65%. * No segmental left ventricular wall motion abnormalities are noted. * Grade II diastolic dysfunction. * Aortic valve sclerosis mild, without significant aortic valvular stenosis. There is focal thickening and calcification at the non coronary cusp. Mild aortic Current Inpatient Medications: Current Inpatient Medications Medications (Trade) Dose Ordered Sig/Latasha Route Start Time Stop Time Status Last Admin Dose Admin Heparin Sodium (Porcine) (Heparin Sq 5000 Unit/0.5ml) 5,000 unit Q8 SQ 09/09/17 22:00 10/09/17 21:59 09/14/17 05:57 5,000 UNIT Acetaminophen (Tylenol Tab) 650 mg Q4H PRN PO 09/09/17 18:00 10/09/17 17:59 09/12/17 21:27 650 MG Ondansetron HCl (Zofran Inj) 4 mg Q6H PRN IV 09/09/17 18:00 10/09/17 17:59 Miscellaneous Information (Consult Glycemic Management Pharmacy) 1 ea UD PRN N/A 09/09/17 18:10 10/09/17 18:09 Amlodipine Besylate (Norvasc Tab) 10 mg DAILY PO 09/10/17 09:00 10/10/17 08:59 09/14/17 08:22 10 MG Aspirin (Ecotrin Tab) 81 mg QAM PO 09/10/17 09:00 10/10/17 08:59 09/14/17 08:21 81 MG Atorvastatin Calcium (Lipitor Tab) 40 mg DAILY PO 09/10/17 09:00 10/10/17 08:59 09/14/17 08:22 40 MG Carvedilol (Coreg Tab) 25 mg BIDM PO 09/10/17 07:30 10/10/17 07:59 09/14/17 08:22 25 MG Divalproex Sodium (Depakote Delay Rel Tab) 500 mg Q12 PO 09/09/17 21:00 10/09/17 20:59 09/14/17 08:21 500 MG Docusate Sodium (coLACE CAP) 100 mg BID PRN PO 09/09/17 18:15 10/09/17 18:14 Hydralazine HCl (Apresoline Tab) 50 mg QID PO 09/09/17 21:00 10/09/17 20:59 09/14/17 08:21 50 MG Multivitamins/ Minerals (Multivitamin W/ Minerals Tab) 1 tab DAILY PO 09/10/17 09:00 10/10/17 08:59 09/14/17 08:21 1 TAB Nortriptyline HCl (Pamelor Cap) 75 mg HS PO 09/09/17 21:00 10/09/17 20:59 09/13/17 19:58 75 MG Pantoprazole Sodium (Protonix Tab) 40 mg DAILY PO 09/10/17 09:00 10/10/17 08:59 09/14/17 08:20 40 MG Senna/Docusate Sodium (Senokot S Tab) 1 tab DAILY PO 09/10/17 09:00 10/10/17 08:59 09/12/17 07:43 1 TAB Sucralfate (Carafate Tab) 1 gm DAILY PO 09/10/17 09:00 10/10/17 08:59 09/14/17 08:22 1 GM Cholecalciferol (Vitamin D Tab) 2,000 inter.unit DAILY PO 09/10/17 09:00 10/10/17 08:59 09/14/17 08:20 2,000 INTER.UNIT Ferrous Sulfate (Feosol Tab) 325 mg TIDM PO 09/10/17 07:30 10/10/17 07:59 09/14/17 08:20 325 MG Miscellaneous Information (Order Awaiting Action) 1 ea QS N/A 09/10/17 00:00 10/10/17 00:00 Polyethylene (Miralax Powder Packet) 17 gm DAILY PRN PO 09/09/17 18:15 10/09/17 18:14 Oxycodone/ Acetaminophen (Percocet 5-325mg Tab) 1 tab Q6H PRN PO 09/09/17 22:45 09/23/17 22:44 09/13/17 18:02 1 TAB Insulin Aspart (novoLOG ASPART) SLIDING SCALE ACHS SC 09/10/17 08:15 10/10/17 08:14 09/14/17 08:28 3 UNITS Clonidine HCl (Catapres Tab) 0.1 mg Q6H PRN PO 09/11/17 16:45 10/11/17 16:44 09/11/17 23:34 0.1 MG Lidocaine (Lidoderm Patch 5%) 1 patch QAM TD 09/12/17 09:00 10/12/17 08:59 09/14/17 08:23 1 PATCH Miscellaneous (Remove Lidoderm Patch) 1 ea DAILY@21 N/A 09/11/17 21:00 10/11/17 20:59 09/13/17 20:02 1 EA Cyclobenzaprine HCl (Flexeril Tab) 5 mg BID PRN PO 09/11/17 17:45 10/11/17 17:44 Doxycycline Hyclate (Vibramycin Cap) 100 mg BID PO 09/12/17 21:00 09/18/17 21:01 09/14/17 08:21 100 MG Levalbuterol (Xopenex 0.63 Mg/ 3 Ml Neb) 0.63 mg Q6R INH 09/12/17 10:00 10/12/17 09:59 09/14/17 07:14 0.63 MG Guaifenesin (Mucinex Contr Rel Tab) 600 mg Q12 PO 09/12/17 21:00 10/12/17 20:59 09/14/17 08:21 600 MG Glucose (Glucose 40% Gel) 15-30 GRAMS 15 GRAMS... UD PRN PO 09/13/17 09:30 10/13/17 09:29 Glucose (Glucose Chew Tab) 4-8 Tablets 4 Tabl... UD PRN PO 09/13/17 09:30 10/13/17 09:29 Dextrose (Dextrose 50% 50ML Syringe) 25-50ML OF 50% DW IV FOR... UD PRN IV 09/13/17 09:30 10/13/17 09:29 09/13/17 16:42 50 ML Glucagon (Glucagon Inj) 1 mg UD PRN SQ 09/13/17 09:30 10/13/17 09:29 Clonidine HCl (Catapres Tab) 0.1 mg BID PO 09/13/17 21:00 10/14/17 08:59 09/14/17 08:20 0.1 MG Insulin Glargine (Lantus Solostar Pen) 14 units DAILY SQ 09/14/17 09:00 10/14/17 08:59 09/14/17 08:29 14 UNITS
--- NOTE | 2017-09-14 14:16 | Pharmacy Progress Note ---
Pharmacy Glycemic Short Note 2 Date of Service Sep 14, 2017. OUTPATIENT ANTIDIABETIC REGIMEN: * NovoLog Insulin Pump * Non-functioning at this time. * Basal rate: 0.6 units/hr * CF: 90, CR: 30 ASSESSMENT: * 47yo T1DM female with hyperglycemia secondary to pump malfunction. * Pt was initiated on IV insulin infusion at time of admission and was transitioned to SQ basal + bolus insulin on 09/10/17 * BSGs yesterday were [phone] [phone] * received 18 units of basal insulin (total of 35 units) * Fasting blood sugar this morning was 123 mg/dL ... reduce current Lantus dose to 14 units (slightly lower than pump rate). Patient had significant hypoglycemia prior to dinner which was likely secondary to too much Novolog. Loosen parameters even further today to prevent further hypoglycemia. PLAN FOR INPATIENT GLYCEMIC CONTROL: * Basal insulin * Lantus 14 units SQ * Bolus insulin - * NovoLog per scale ACHS or Q6hrs while NPO * Goal Range: Low 120 mg/dL - High 160 mg/dL * Correction Factor: 45 mg/dL/unit * Nutritional / Prandial insulin per carb ratio of 1 unit per 15 grams CHO consumed Thank you.
[2017-09-14] MEDS: NORTRIPTYLINE HCL 25 MG CAP PO SCH (19:30)
[2017-09-14] MEDS: CYCLOBENZAPRINE HCL 5 MG TAB PO PRN (19:30)
[2017-09-15] VITALS (10 sets, daily range): BP systolic 147–197; BP diastolic 66–74; PULSE 63–87; TEMP 36.4–37.4; O2SAT 94–97
[2017-09-15] MEDS: LEVALBUTEROL 0.63MG/3 ML NEB INH SCH ×4 (01:55→19:08)
[2017-09-15] MEDS: CLONIDINE HCL 0.1 MG TAB PO PRN (03:54)
[2017-09-15] MEDS: HEPARIN SOD 5000 UNIT/0.5 ML CARP SQ SCH ×3 (03:55→21:15)
[2017-09-15] MEDS: BREO ELLIPTA: ORDER AWAITING ACTION SCH ×3 (07:22→23:36)
[2017-09-15] MEDS ORDERED: INSULIN HUMAN REGULAR IV BOLUS 6 UNIT in SYRINGE 0 ML IV SCH ×2 (07:45→12:45)
[2017-09-15 07:46] LABS: HEMATOCRIT 23.4 % (37-47); HEMOGLOBIN 7.9 g/dL (12.0-16.0); MEAN CELL VOLUME 87.6 fL (80-100); MEAN CORPUSCULAR HEMOGLOBIN 29.6 pg (25-34); MEAN CORPUSCULAR HGB CONC 33.8 g/dl (32-36); MEAN PLATELET VOLUME 10.3 fL (7.4-10.4); PLATELET COUNT 145 K/uL (130-400); RED CELL DISTRIBUTION WIDTH CV 13.7 % (11.5-14.5); WHITE BLOOD COUNT 4.19 K/uL (4.8-10.8)
[2017-09-15 08:27] LABS: CREATININE 3.87 mg/dl (0.60-1.20); POTASSIUM 5.5 mmol/L (3.5-5.1)
[2017-09-15] MEDS: CLONIDINE HCL 0.1 MG TAB PO SCH ×2 (08:59→21:04)
[2017-09-15] MEDS: ATORVASTATIN 40 MG TAB PO SCH (08:59)
[2017-09-15] MEDS: FERROUS SULFATE 325 MG TAB PO SCH ×3 (08:59→16:39)
[2017-09-15] MEDS: CHOLECALCIFEROL 1000 INTER.UNIT TAB PO SCH (08:59)
[2017-09-15] MEDS: PANTOprazole SOD 40 MG TAB PO SCH (08:59)
[2017-09-15] MEDS: CEROVITE ADV FORMULA TAB PO SCH (08:59)
[2017-09-15] MEDS: DOCUSATE SODIUM/SENNA 50/8.6MG TAB PO SCH (09:00)
[2017-09-15] MEDS: AMLODIPINE BESYLATE 5 MG TAB PO SCH (09:00)
[2017-09-15] MEDS: SUCRALFATE 1 GM TAB PO SCH (09:00)
[2017-09-15] MEDS: DIVALPROEX SODIUM 500 MG DELAY RELEASE TAB PO SCH ×2 (09:00→21:05)
[2017-09-15] MEDS ORDERED: INSULIN GLARGINE SOLOSTAR 100 UNITS/ML 3 ML PEN SQ SCH (09:00)
[2017-09-15] MEDS: LIDODERM (LIDOCAINE) PATCH 5% TD SCH (09:00)
[2017-09-15] MEDS: ASPIRIN 81 MG ECTAB PO SCH (09:00)
[2017-09-15] MEDS: CARVEDILOL 25 MG TAB PO SCH ×2 (09:00→16:39)
[2017-09-15] MEDS: DOXYCYCLINE HYCLATE 100 MG CAP PO SCH ×2 (09:01→21:04)
[2017-09-15] MEDS: GUAIFENESIN 600 MG TABCR PO SCH ×2 (09:02→21:05)
[2017-09-15] MEDS: INSULIN ASPART 100 UNITS/ML 3 ML PEN SC SCH ×4 (09:09→21:14)
--- NOTE | 2017-09-15 13:46 | Pharmacy Progress Note ---
Pharmacy Glycemic Short Note 2 Date of Service Sep 15, 2017. OUTPATIENT ANTIDIABETIC REGIMEN: * NovoLog Insulin Pump * Non-functioning at this time. * Basal rate: 0.6 units/hr * CF: 90, CR: 30 ASSESSMENT: * 47yo T1DM female with hyperglycemia secondary to pump malfunction. * Pt was initiated on IV insulin infusion at time of admission and was transitioned to SQ basal + bolus insulin on 09/10/17 * BSGs yesterday were [phone] * received 14 units of basal insulin (total of 36 units) * Fasting blood sugar this morning was 358 mg/dL ... patient told nurse that her blood sugars increase throughout the night. Therefore will attempt a different strategy today. Give lower dose of Lantus this morning (12 units) then 3 units tonight (total of 15 units which is very close to what the patient receives with pump). Continue loosened Novolog parameters to prevent patient from stacking today. Lowered goal range so patient receives more insulin PLAN FOR INPATIENT GLYCEMIC CONTROL: * Basal insulin * Lantus 12 units SQ qAM plus Lantus 3 units qHS * Bolus insulin - * NovoLog per scale ACHS or Q6hrs while NPO * Goal Range: Low 110 mg/dL - High 140 mg/dL * Correction Factor: 45 mg/dL/unit * Nutritional / Prandial insulin per carb ratio of 1 unit per 15 grams CHO consumed Thank you.
--- NOTE | 2017-09-15 14:27 | Progress Note ---
Medicine Progress Note Date & Time of Visit: Sep 15, 2017 at 14:24. Subjective Seen sitting in bed comfortable States she did not feel well this morning when blood sugar was in the 300s But denies headache chest pain shortness of breath Cough improving No other new symptoms Objective Last 8 Hrs Date Time Temp Pulse Resp B/P (MAP) Pulse Ox O2 Delivery O2 Flow Rate FiO2 09/15/17 14:08 68 12 97 Room Air 09/15/17 13:45 147/71 (96) 09/15/17 12:00 Room Air 09/15/17 11:16 36.8 76 18 188/74 (112) 97 Room Air 09/15/17 08:00 37.4 78 18 197/71 (113) 96 Room Air 09/15/17 08:00 Room Air 09/15/17 07:06 76 12 96 Room Air Physical Exam: General- oriented x 3, not in distress, speaks in sentences with no effort Eyes- anicteric Neck- no JVD Lungs-clear BS bilaterally, no crackles no wheezing Heart- regular rhythm; no murmur, normal rate Abdomen- normal bowel sounds, soft, nontender Extremities- trace pretibial edema, no calf tenderness Neuro- alert, oriented x 3; no gross focal deficits Skin- warm & dry Laboratory Results: Last 24 Hours Test 09/14/17 16:30 09/14/17 20:36 09/15/17 06:44 09/15/17 07:29 Bedside Glucose 152 mg/dl 191 mg/dl 358 mg/dl White Blood Count 4.19 K/uL Red Blood Count 2.67 M/uL Hemoglobin 7.9 g/dL Hematocrit 23.4 % Mean Corpuscular Volume 87.6 fL Mean Corpuscular Hemoglobin 29.6 pg Mean Corpuscular Hemoglobin Concent 33.8 g/dl RDW Standard Deviation 44.0 fL RDW Coefficient of Variation 13.7 % Platelet Count 145 K/uL Mean Platelet Volume 10.3 fL Sodium Level 138 mmol/L Potassium Level 5.5 mmol/L Chloride Level 108 mmol/L Carbon Dioxide Level 20 mmol/L Anion Gap 10.0 mmol/L Blood Urea Nitrogen 49 mg/dl Creatinine 3.87 mg/dl Est Creatinine Clear Calc Drug Dose 15.8 ml/min Estimated GFR () 14.9 Estimated GFR (Non- 12.9 BUN/Creatinine Ratio 12.6 Random Glucose 332 mg/dl Calcium Level 8.0 mg/dl Beta-Hydroxybutyric Acid mg/dL Chemistry Specimen Hemolysis Test 09/15/17 08:56 09/15/17 11:05 09/15/17 13:23 Beta-Hydroxybutyric Acid 1.03 mg/dL Bedside Glucose 314 mg/dl Potassium Level 4.8 mmol/L Assessment & Plan Hyperglycemia Uncontrolled diabetes type 1 -Patient presenting from [facility] for hyperglycemia for the past 3 days, patient is a type I diabetic with insulin pump however has been malfunctioning over the weekend -In the ED patient's blood sugars found to be 474 -No signs of DKA -- Insulin drip discontinued now on Insulin Lantus and ISS -- (+) Hyperglycemia in the morning Lantus 3 units at night started, Lantus in a.m. lowered ISS loosened Monitor blood sugar appreciate Pharmacy Glycemic consult -- monitor closely plan to return to [facility] when BSGs are more stable Acute Renal Failure on CKD stage IV -Likely prerenal etiology -Patient's baseline creatinine runs around 3.5, does have a fistula in place however has not started dialysis yet - Nephrology consulted on IV NSS crea further improved to 3.6 09/15/2017 Creatinine increased remains at 3.8 Hold further Lasix Monitor Hypertension -BP elevated dc IV fluids -Added clonidine twice daily, further increased to 0.2 mg continue amlodipine, hydralazine, carvedilol - monitor blood pressure closely Acute bronchitis - CXR: no pneumonia Continue doxycycline 100mg BID Nebs Mucinex Improving daily - Speech Therapy consulted continue mechanical soft, moist diet Atypical Chest pain, Resolved, -Initial troponin negative, EKG without acute ST changes -Cardiac cath 2015 shows nonobstructive coronary disease -Stress test 06/2017 showed a possible small area of ischemia in the anterior wall -- Troponins negative echo unchanged - Continue aspirin, statin, beta-wiley Hyperkalemia Resolved Recent CVA -Continue aspirin and statin History of seizures -Continue Depakote Anemia due to CKD -Baseline hemoglobin runs around 7-8 - Hg 7.3 ordered 1 unit pRBC Hg improved to 8.3 DVT prophylaxis -SQ heparin CODE STATUS -Patient is a full code Disposition anticipate return to when blood glucose and blood pressure stable and renal function stable Echo: * -- Conclusions -- * No significant change compared to previous study of 08/29/17. * Normal LV chamber size with mild concentric LVH. * Normal LV systolic function, EF 60-65%. * No segmental left ventricular wall motion abnormalities are noted. * Grade II diastolic dysfunction. * Aortic valve sclerosis mild, without significant aortic valvular stenosis. There is focal thickening and calcification at the non coronary cusp. Mild aortic Current Inpatient Medications: Current Inpatient Medications Medications (Trade) Dose Ordered Sig/Latasha Route Start Time Stop Time Status Last Admin Dose Admin Heparin Sodium (Porcine) (Heparin Sq 5000 Unit/0.5ml) 5,000 unit Q8 SQ 09/09/17 22:00 10/09/17 21:59 09/15/17 13:45 5,000 UNIT Acetaminophen (Tylenol Tab) 650 mg Q4H PRN PO 09/09/17 18:00 10/09/17 17:59 09/12/17 21:27 650 MG Ondansetron HCl (Zofran Inj) 4 mg Q6H PRN IV 09/09/17 18:00 10/09/17 17:59 Miscellaneous Information (Consult Glycemic Management Pharmacy) 1 ea UD PRN N/A 09/09/17 18:10 10/09/17 18:09 Amlodipine Besylate (Norvasc Tab) 10 mg DAILY PO 09/10/17 09:00 10/10/17 08:59 09/15/17 09:00 10 MG Aspirin (Ecotrin Tab) 81 mg QAM PO 09/10/17 09:00 10/10/17 08:59 09/15/17 09:00 81 MG Atorvastatin Calcium (Lipitor Tab) 40 mg DAILY PO 09/10/17 09:00 10/10/17 08:59 09/15/17 08:59 40 MG Carvedilol (Coreg Tab) 25 mg BIDM PO 09/10/17 07:30 10/10/17 07:59 09/15/17 09:00 25 MG Divalproex Sodium (Depakote Delay Rel Tab) 500 mg Q12 PO 09/09/17 21:00 10/09/17 20:59 09/15/17 09:00 500 MG Docusate Sodium (coLACE CAP) 100 mg BID PRN PO 09/09/17 18:15 10/09/17 18:14 Hydralazine HCl (Apresoline Tab) 50 mg QID PO 09/09/17 21:00 10/09/17 20:59 09/15/17 12:25 50 MG Multivitamins/ Minerals (Multivitamin W/ Minerals Tab) 1 tab DAILY PO 09/10/17 09:00 10/10/17 08:59 09/15/17 08:59 1 TAB Nortriptyline HCl (Pamelor Cap) 75 mg HS PO 09/09/17 21:00 10/09/17 20:59 09/14/17 19:30 75 MG Pantoprazole Sodium (Protonix Tab) 40 mg DAILY PO 09/10/17 09:00 10/10/17 08:59 09/15/17 08:59 40 MG Senna/Docusate Sodium (Senokot S Tab) 1 tab DAILY PO 09/10/17 09:00 10/10/17 08:59 09/12/17 07:43 1 TAB Sucralfate (Carafate Tab) 1 gm DAILY PO 09/10/17 09:00 10/10/17 08:59 09/15/17 09:00 1 GM Cholecalciferol (Vitamin D Tab) 2,000 inter.unit DAILY PO 09/10/17 09:00 10/10/17 08:59 09/15/17 08:59 2,000 INTER.UNIT Ferrous Sulfate (Feosol Tab) 325 mg TIDM PO 09/10/17 07:30 10/10/17 07:59 09/15/17 12:25 325 MG Miscellaneous Information (Order Awaiting Action) 1 ea QS N/A 09/10/17 00:00 10/10/17 00:00 Polyethylene (Miralax Powder Packet) 17 gm DAILY PRN PO 09/09/17 18:15 10/09/17 18:14 Oxycodone/ Acetaminophen (Percocet 5-325mg Tab) 1 tab Q6H PRN PO 09/09/17 22:45 09/23/17 22:44 09/13/17 18:02 1 TAB Insulin Aspart (novoLOG ASPART) SLIDING SCALE ACHS SC 09/10/17 08:15 10/10/17 08:14 09/15/17 12:35 6 UNITS Clonidine HCl (Catapres Tab) 0.1 mg Q6H PRN PO 09/11/17 16:45 10/11/17 16:44 4/8/18 03:54 0.1 MG Lidocaine (Lidoderm Patch 5%) 1 patch QAM TD 09/12/17 09:00 10/12/17 08:59 09/15/17 09:00 1 PATCH Miscellaneous (Remove Lidoderm Patch) 1 ea DAILY@21 N/A 09/11/17 21:00 10/11/17 20:59 09/14/17 19:34 1 EA Cyclobenzaprine HCl (Flexeril Tab) 5 mg BID PRN PO 09/11/17 17:45 10/11/17 17:44 09/14/17 19:30 5 MG Doxycycline Hyclate (Vibramycin Cap) 100 mg BID PO 09/12/17 21:00 09/18/17 21:01 09/15/17 09:01 100 MG Levalbuterol (Xopenex 0.63 Mg/ 3 Ml Neb) 0.63 mg Q6R INH 09/12/17 10:00 10/12/17 09:59 09/15/17 14:06 0.63 MG Guaifenesin (Mucinex Contr Rel Tab) 600 mg Q12 PO 09/12/17 21:00 10/12/17 20:59 09/15/17 09:02 600 MG Glucose (Glucose 40% Gel) 15-30 GRAMS 15 GRAMS... UD PRN PO 09/13/17 09:30 10/13/17 09:29 Glucose (Glucose Chew Tab) 4-8 Tablets 4 Tabl... UD PRN PO 09/13/17 09:30 10/13/17 09:29 Dextrose (Dextrose 50% 50ML Syringe) 25-50ML OF 50% DW IV FOR... UD PRN IV 09/13/17 09:30 10/13/17 09:29 09/13/17 16:42 50 ML Glucagon (Glucagon Inj) 1 mg UD PRN SQ 09/13/17 09:30 10/13/17 09:29 Insulin Glargine (Lantus Solostar Pen) 12 units DAILY SQ 09/15/17 09:00 10/15/17 08:59 09/15/17 09:11 12 UNITS Clonidine HCl (Catapres Tab) 0.2 mg BID PO 09/15/17 09:00 10/14/17 08:59 09/15/17 08:59 0.2 MG Insulin Glargine (Lantus Solostar Pen) 3 units HS SC 09/15/17 21:00 10/15/17 20:59
[2017-09-15] MEDS ORDERED: IRON SUCROSE INJ 100 MG in SODIUM CHLORIDE 0.9% 100ML 100 ML IV SCH (16:15)
[2017-09-15] MEDS: GLUCOSE 10 TABS/TUBE PO PRN (16:31)
[2017-09-15] MEDS: GLUCOSE 40% GEL 15 GM TUBE PO PRN (17:03)
[2017-09-15] MEDS ORDERED: INSULIN GLARGINE SOLOSTAR 100 UNITS/ML 3 ML PEN SC SCH (21:00)
[2017-09-15] MEDS: NORTRIPTYLINE HCL 25 MG CAP PO SCH (21:06)
[2017-09-15] MEDS: CYCLOBENZAPRINE HCL 5 MG TAB PO PRN (21:08)
[2017-09-16] VITALS (13 sets, daily range): BP systolic 110–197; BP diastolic 56–77; PULSE 61–73; TEMP 36.3–36.9; O2SAT 95–98; Ht 157.5 cm; Wt 71.8 kg
[2017-09-16] MEDS: LEVALBUTEROL 0.63MG/3 ML NEB INH SCH ×2 (01:57→07:11)
[2017-09-16] MEDS: CLONIDINE HCL 0.1 MG TAB PO PRN (05:21)
[2017-09-16] MEDS: HEPARIN SOD 5000 UNIT/0.5 ML CARP SQ SCH ×3 (05:24→21:32)
[2017-09-16] MEDS: OXYCODONE/ACETAMINOPHEN 5-325 TAB PO PRN ×2 (05:29→17:01)
[2017-09-16] MEDS: CARVEDILOL 25 MG TAB PO SCH ×2 (06:36→16:52)
[2017-09-16] MEDS ORDERED: INSULIN ASPART 100 UNITS/ML 3 ML PEN SC SCH (07:00)
[2017-09-16 07:32] LABS: CALCIUM 8.1 mg/dl (8.5-10.1); CREATININE 4.26 mg/dl (0.60-1.20); POTASSIUM 5.4 mmol/L (3.5-5.1)
[2017-09-16] MEDS: BREO ELLIPTA: ORDER AWAITING ACTION SCH ×3 (08:00→23:19)
--- NOTE | 2017-09-16 08:41 | Progress Note ---
Medicine Progress Note Date & Time of Visit: Sep 16, 2017 at 08:35. Subjective seen resting in bed, not in distress, comfortable states she has a mild frontal headache, feels tired BSG 400s this morning, Insulin Lantus being increased at HS denies chest pain, dyspnea, palpitations, dizziness, nausea no other symptoms Objective Last 8 Hrs Date Time Temp Pulse Resp B/P (MAP) Pulse Ox O2 Delivery O2 Flow Rate FiO2 09/16/17 07:43 36.9 73 16 197/64 (108) 95 Room Air 09/16/17 07:11 71 14 95 Room Air 09/16/17 06:33 71 186/77 (113) 09/16/17 05:16 71 197/62 (107) 09/16/17 04:07 Room Air 09/16/17 03:20 36.7 73 17 185/69 (107) 96 Room Air Physical Exam: General- oriented x 3, not in distress, speaks in sentences with no effort Eyes- anicteric Neck- no JVD Lungs-clear breath sounds, no rales/wheeze BL Heart- regular rhythm; no murmur, normal rate Abdomen- normal bowel sounds, soft, nontender Extremities- trace pretibial edema, no calf tenderness Neuro- alert, oriented x 3; no gross focal deficits Skin- warm & dry Laboratory Results: Last 24 Hours Test 09/15/17 08:56 09/15/17 11:05 09/15/17 13:23 09/15/17 16:07 Beta-Hydroxybutyric Acid 1.03 mg/dL Bedside Glucose 314 mg/dl 51 mg/dl Potassium Level 4.8 mmol/L Test 09/15/17 16:24 09/15/17 16:56 09/15/17 17:22 09/15/17 20:15 Bedside Glucose 45 mg/dl 52 mg/dl 84 mg/dl 267 mg/dl Test 09/16/17 01:58 09/16/17 06:29 09/16/17 07:00 09/16/17 08:26 Bedside Glucose 297 mg/dl 407 mg/dl Sodium Level 137 mmol/L Potassium Level 5.4 mmol/L Chloride Level 109 mmol/L Carbon Dioxide Level 21 mmol/L Anion Gap 7.0 mmol/L Blood Urea Nitrogen 56 mg/dl Creatinine 4.26 mg/dl Est Creatinine Clear Calc Drug Dose 14.4 ml/min Estimated GFR () 13.3 Estimated GFR (Non- 11.5 BUN/Creatinine Ratio 13.1 Random Glucose 424 mg/dl Calcium Level 8.1 mg/dl Beta-Hydroxybutyric Acid 0.96 mg/dL Assessment & Plan Hyperglycemia Uncontrolled diabetes type 1 -Patient presenting from [facility] for hyperglycemia for the past 3 days, patient is a type I diabetic with insulin pump however has been malfunctioning over the weekend -In the ED patient's blood sugars found to be 474 -No signs of DKA -- Insulin drip discontinued now on Insulin Lantus and ISS -- (+) Hyperglycemia again this morning Lantus increased to 10 units at night, Lantus in a.m. lowered to 10 units Monitor blood sugar appreciate Pharmacy Glycemic consult -- monitor closely plan to return to [facility] when BSGs are more stable with Lantus and ISS (patient prefers to stay with Lantus and ISS for now and while at Rehab, then follow up with [facility] to have her Insulin Pump restarted) Acute Renal Failure on CKD stage IV -Likely prerenal etiology -Patient's baseline creatinine runs around 3.5, does have a fistula in place however has not started dialysis yet - Nephrology consulted on IV NSS crea further improved to 3.6 09/16/2017 Creatinine increased again to 4.2 re start IV NSS at 60cc/hr monitor will discuss with nephro Hypertension -Added clonidine twice daily, further increased to 0.2 mg for better BP control continued on usual amlodipine, hydralazine, carvedilol - BP still elevated increased Hydralazine from 50 to 75mg QID monitor Acute bronchitis - CXR: no pneumonia given doxycycline 100mg BID Nebs Mucinex -- much better continue Doxycycline to complete 7 day course - Speech Therapy consulted continue mechanical soft, moist diet Atypical Chest pain, Resolved, -Initial troponin negative, EKG without acute ST changes -Cardiac cath 2015 shows nonobstructive coronary disease -Stress test 06/2017 showed a possible small area of ischemia in the anterior wall -- Troponins negative echo unchanged - Continue aspirin, statin, beta-wiley Hyperkalemia 5.4 today monitor Recent CVA -Continue aspirin and statin - return to when medically stable for continuation of PT/OT History of seizures -Continue Depakote Anemia due to CKD -Baseline hemoglobin runs around 7-8 - Hg 7.3 ordered 1 unit pRBC Hg 7.9 - monitor DVT prophylaxis -SQ heparin CODE STATUS -Patient is a full code Disposition anticipate return to SNF when renal function, blood glucose, and BP stable Echo: * -- Conclusions -- * No significant change compared to previous study of 08/29/17. * Normal LV chamber size with mild concentric LVH. * Normal LV systolic function, EF 60-65%. * No segmental left ventricular wall motion abnormalities are noted. * Grade II diastolic dysfunction. * Aortic valve sclerosis mild, without significant aortic valvular stenosis. There is focal thickening and calcification at the non coronary cusp. Mild aortic Current Inpatient Medications: Current Inpatient Medications Medications (Trade) Dose Ordered Sig/Latasha Route Start Time Stop Time Status Last Admin Dose Admin Heparin Sodium (Porcine) (Heparin Sq 5000 Unit/0.5ml) 5,000 unit Q8 SQ 09/09/17 22:00 10/09/17 21:59 09/16/17 05:24 5,000 UNIT Acetaminophen (Tylenol Tab) 650 mg Q4H PRN PO 09/09/17 18:00 10/09/17 17:59 09/12/17 21:27 650 MG Ondansetron HCl (Zofran Inj) 4 mg Q6H PRN IV 09/09/17 18:00 10/09/17 17:59 Miscellaneous Information (Consult Glycemic Management Pharmacy) 1 ea UD PRN N/A 09/09/17 18:10 10/09/17 18:09 Amlodipine Besylate (Norvasc Tab) 10 mg DAILY PO 09/10/17 09:00 10/10/17 08:59 09/15/17 09:00 10 MG Aspirin (Ecotrin Tab) 81 mg QAM PO 09/10/17 09:00 10/10/17 08:59 09/15/17 09:00 81 MG Atorvastatin Calcium (Lipitor Tab) 40 mg DAILY PO 09/10/17 09:00 10/10/17 08:59 09/15/17 08:59 40 MG Carvedilol (Coreg Tab) 25 mg BIDM PO 09/10/17 07:30 10/10/17 07:59 09/16/17 06:36 25 MG Divalproex Sodium (Depakote Delay Rel Tab) 500 mg Q12 PO 09/09/17 21:00 10/09/17 20:59 09/15/17 21:05 500 MG Docusate Sodium (coLACE CAP) 100 mg BID PRN PO 09/09/17 18:15 10/09/17 18:14 Multivitamins/ Minerals (Multivitamin W/ Minerals Tab) 1 tab DAILY PO 09/10/17 09:00 10/10/17 08:59 09/15/17 08:59 1 TAB Nortriptyline HCl (Pamelor Cap) 75 mg HS PO 09/09/17 21:00 10/09/17 20:59 09/15/17 21:06 75 MG Pantoprazole Sodium (Protonix Tab) 40 mg DAILY PO 09/10/17 09:00 10/10/17 08:59 09/15/17 08:59 40 MG Senna/Docusate Sodium (Senokot S Tab) 1 tab DAILY PO 09/10/17 09:00 10/10/17 08:59 09/12/17 07:43 1 TAB Sucralfate (Carafate Tab) 1 gm DAILY PO 09/10/17 09:00 10/10/17 08:59 09/15/17 09:00 1 GM Cholecalciferol (Vitamin D Tab) 2,000 inter.unit DAILY PO 09/10/17 09:00 10/10/17 08:59 09/15/17 08:59 2,000 INTER.UNIT Ferrous Sulfate (Feosol Tab) 325 mg TIDM PO 09/10/17 07:30 10/10/17 07:59 09/15/17 16:39 325 MG Miscellaneous Information (Order Awaiting Action) 1 ea QS N/A 09/10/17 00:00 10/10/17 00:00 Polyethylene (Miralax Powder Packet) 17 gm DAILY PRN PO 09/09/17 18:15 10/09/17 18:14 Oxycodone/ Acetaminophen (Percocet 5-325mg Tab) 1 tab Q6H PRN PO 09/09/17 22:45 09/23/17 22:44 09/16/17 05:29 1 TAB Clonidine HCl (Catapres Tab) 0.1 mg Q6H PRN PO 09/11/17 16:45 10/11/17 16:44 09/16/17 05:21 0.1 MG Lidocaine (Lidoderm Patch 5%) 1 patch QAM TD 09/12/17 09:00 10/12/17 08:59 09/15/17 09:00 1 PATCH Miscellaneous (Remove Lidoderm Patch) 1 ea DAILY@21 N/A 09/11/17 21:00 10/11/17 20:59 09/15/17 21:20 1 EA Cyclobenzaprine HCl (Flexeril Tab) 5 mg BID PRN PO 09/11/17 17:45 10/11/17 17:44 09/15/17 21:08 5 MG Doxycycline Hyclate (Vibramycin Cap) 100 mg BID PO 09/12/17 21:00 09/18/17 21:01 09/15/17 21:04 100 MG Levalbuterol (Xopenex 0.63 Mg/ 3 Ml Neb) 0.63 mg Q6R INH 09/12/17 10:00 10/12/17 09:59 09/16/17 07:11 0.63 MG Guaifenesin (Mucinex Contr Rel Tab) 600 mg Q12 PO 09/12/17 21:00 10/12/17 20:59 09/15/17 21:05 600 MG Glucose (Glucose 40% Gel) 15-30 GRAMS 15 GRAMS... UD PRN PO 09/13/17 09:30 10/13/17 09:29 09/15/17 17:03 30 GM Glucose (Glucose Chew Tab) 4-8 Tablets 4 Tabl... UD PRN PO 09/13/17 09:30 10/13/17 09:29 09/15/17 16:31 8 TABS Dextrose (Dextrose 50% 50ML Syringe) 25-50ML OF 50% DW IV FOR... UD PRN IV 09/13/17 09:30 10/13/17 09:29 09/13/17 16:42 50 ML Glucagon (Glucagon Inj) 1 mg UD PRN SQ 09/13/17 09:30 10/13/17 09:29 Clonidine HCl (Catapres Tab) 0.2 mg BID PO 09/15/17 09:00 10/14/17 08:59 09/15/17 21:04 0.2 MG Insulin Glargine (Lantus Solostar Pen) 10 units BID SQ 09/16/17 09:00 10/16/17 08:59 Insulin Aspart (novoLOG ASPART) SLIDING SCALE QDB SC 09/16/17 07:30 10/16/17 07:29 Insulin Aspart (novoLOG ASPART) SLIDING SCALE TID@1100,1615,2100 SC 09/16/17 11:00 10/16/17 10:59 Hydralazine HCl (Apresoline Tab) 75 mg QID PO 09/16/17 09:00 10/09/17 20:59
[2017-09-16 08:59] LABS: BASO % 0.8 %; BASO ABS # 0.05 K/uL (0-0.2); EOS % 2.8 %; EOS ABS # 0.18 K/uL (0-0.5); HEMATOCRIT 24.6 % (37-47); HEMOGLOBIN 8.3 g/dL (12.0-16.0); IG# 0.02 K/uL (0.00-0.02); LYMPH % 25.6 %; LYMPH ABS # 1.64 K/uL (1.2-3.4); MEAN CELL VOLUME 87.2 fL (80-100); MEAN CORPUSCULAR HEMOGLOBIN 29.4 pg (25-34); MEAN CORPUSCULAR HGB CONC 33.7 g/dl (32-36); MEAN PLATELET VOLUME 9.9 fL (7.4-10.4); MONO % 6.9 %; MONO ABS # 0.44 K/uL (0.11-0.59); NEUT % 63.6 %; NEUT ABS # 4.08 K/uL (1.4-6.5); PLATELET COUNT 244 K/uL (130-400); RED CELL DISTRIBUTION WIDTH CV 13.5 % (11.5-14.5); RED CELL DISTRIBUTION WIDTH SD 43.6 fL (36.4-46.3); WHITE BLOOD COUNT 6.41 K/uL (4.8-10.8)
[2017-09-16] MEDS: GUAIFENESIN 600 MG TABCR PO SCH ×2 (09:32→21:26)
[2017-09-16] MEDS: DOCUSATE SODIUM/SENNA 50/8.6MG TAB PO SCH (09:33)
[2017-09-16] MEDS: ASPIRIN 81 MG ECTAB PO SCH (09:33)
[2017-09-16] MEDS: FERROUS SULFATE 325 MG TAB PO SCH ×3 (09:33→16:52)
[2017-09-16] MEDS: ATORVASTATIN 40 MG TAB PO SCH (09:33)
[2017-09-16] MEDS: CEROVITE ADV FORMULA TAB PO SCH (09:33)
[2017-09-16] MEDS: DIVALPROEX SODIUM 500 MG DELAY RELEASE TAB PO SCH ×2 (09:34→21:26)
[2017-09-16] MEDS: AMLODIPINE BESYLATE 5 MG TAB PO SCH (09:34)
[2017-09-16] MEDS: PANTOprazole SOD 40 MG TAB PO SCH (09:34)
[2017-09-16] MEDS: SUCRALFATE 1 GM TAB PO SCH (09:34)
[2017-09-16] MEDS: CHOLECALCIFEROL 1000 INTER.UNIT TAB PO SCH (09:35)
[2017-09-16] MEDS: DOXYCYCLINE HYCLATE 100 MG CAP PO SCH ×2 (09:35→21:26)
[2017-09-16] MEDS: CLONIDINE HCL 0.1 MG TAB PO SCH ×2 (09:36→21:27)
[2017-09-16] MEDS: INSULIN ASPART 100 UNITS/ML 3 ML PEN SC SCH ×3 (09:38→21:00)
[2017-09-16] MEDS: INSULIN GLARGINE SOLOSTAR 100 UNITS/ML 3 ML PEN SQ SCH ×2 (09:39→16:58)
[2017-09-16] MEDS: LIDODERM (LIDOCAINE) PATCH 5% TD SCH (09:42)
[2017-09-16] MEDS: SODIUM CHLORIDE 0.9% 1000ML 1,000 ML IV SCH (09:53)
[2017-09-16] MEDS ORDERED: LEVALBUTEROL 0.63MG/3 ML NEB INH PRN (10:00)
[2017-09-16] MEDS ORDERED: INSULIN HUMAN REGULAR PER UNIT 5 UNITS in SYRINGE 4.95 ML IV SCH (12:30)
[2017-09-16] MEDS ORDERED: NovoLIN-R INSULIN PER UNIT CHARGE SQ SCH (12:30)
--- NOTE | 2017-09-16 12:31 | Pharmacy Progress Note ---
Pharmacy Glycemic Short Note 2 Date of Service Sep 16, 2017. OUTPATIENT ANTIDIABETIC REGIMEN: * NovoLog Insulin Pump * Basal rate: 0.6 units/hr * CF: 90, CR: 30 Item Value Date Time Bedside Glucose 191 mg/dl 09/14/16 2036 Bedside Glucose 358 mg/dl H 09/15/17 0644 Bedside Glucose 314 mg/dl H 09/15/17 1105 Bedside Glucose 51 mg/dl *L 09/15/17 1607 Bedside Glucose 45 mg/dl *L 09/15/17 1624 Bedside Glucose 52 mg/dl *L 09/15/17 1656 Bedside Glucose 84 mg/dl 09/15/17 1722 Bedside Glucose 267 mg/dl H 09/15/172014 Bedside Glucose 297 mg/dl H 09/16/17 0158 Bedside Glucose 407 mg/dl *H 09/16/17 0700 Bedside Glucose 384 mg/dl *H 09/16/17 1133 Bedside Glucose 349 mg/dl H 09/16/17 1135 ASSESSMENT: * 47yo T1DM female, outpatient control is subadequate per recent A1c but A1c may not be totally reliable secondary to CKD/anemia. * BSGs have been poorly controlled since admission despite frequent monitoring and insulin order adjustments by pharmacy. Pt continues to have frequent hypoglycemia prior to dinner and severe hyperglycemia first thing in the morning. * It is likely that Q24hr dosing of Lantus is not lasting full 24hrs for patient which causes severe hyperglycemia in the morning. Patient then receives two boluses of NovoLog for severe hyperglycemia and carb coverage which leads to hypoglycemia prior to dinner. * Lantus dosing was split BID yesterday but morning dose is 4x that of PM dose. This is causing AM fasting BSG to still be significantly elevated, this morning at 407 mg/dl --> will more evenly distribute dosing BID for more even 24hr coverage * LOWs prior to dinner are secondary to NovoLog bolus/stacking at breakfast and lunch. Will adjust CF/CR with each meal for better control. Will keep CF/CR "tighter" with breakfast and then less aggressive with lunch and dinner to prevent hypoglycemia. * Estimated total daily dose of SQ insulin is ~ 40 units/day. PLAN FOR INPATIENT GLYCEMIC CONTROL: * For severe hyperglycemia x 2 today (BSG = 349 mg/dl prior to lunch) * Give one time regular IV insulin bolus of 5 units + one time regular SQ insulin bolus of 5 units * Administer doses simultaneously so that the different kinetics of IV/SQ will work synergistically. * Pt is not ketotic/acidotic therefore IV insulin infusion may not be warranted at this time. * Basal insulin * Lantus 10 units SQ BID * Bolus insulin - * NovoLog per scale ACHS or Q6hrs while NPO * Goal Range: Low 110 mg/dL - High 140 mg/dL * Parameters for breakfast: Correction Factor: 45 mg/dL/unit Nutritional / Prandial insulin per carb ratio of 1 unit per 9 grams CHO consumed * Parameters for lunch, dinner, and HS: Correction Factor: 45 mg/dL/unit Nutritional / Prandial insulin per carb ratio of 1 unit per 15 grams CHO consumed Thank you.
--- NOTE | 2017-09-16 16:58 | Nephrology Progress Note ---
Nephrology Progress Note Date of Service: Sep 16, 2017. Subjective 47 yo female who presented with marielle on ckd stage 4 and creatinine initially improved with iv fluids. have been having issues with elevated bp and also with difficult to control blood sugars. not uremic. no complaints. Objective Date Time Temp Pulse Resp B/P (MAP) Pulse Ox O2 Delivery O2 Flow Rate FiO2 09/16/17 16:27 36.6 62 20 144/72 (96) 97 Room Air 09/16/17 12:15 36.3 63 16 163/74 (103) 98 Room Air 09/16/17 12:00 95 Room Air 09/16/17 08:00 95 Room Air 09/16/17 07:43 36.9 73 16 197/64 (108) 95 Room Air 09/16/17 07:11 71 14 95 Room Air 09/16/17 06:33 71 186/77 (113) 09/16/17 05:16 71 197/62 (107) 09/16/17 04:07 Room Air 09/16/17 03:20 36.7 73 17 185/69 (107) 96 Room Air 09/16/17 00:01 Room Air 09/15/17 23:15 36.7 66 18 156/66 (96) 95 Room Air 09/15/17 20:00 Room Air 09/15/17 19:58 36.4 67 22 159/67 (97) 97 Room Air 09/15/17 19:08 87 14 96 Room Air Physical Exam: General-aaox3 Eyes-no scleral icterus ENT-mmm Neck-supple Lungs-cta Heart-regular Abdomen-bs+ s/nt Extremities-no c/c, mild edema Neuro-nonfocal Current Inpatient Medications Medications (Trade) Dose Ordered Sig/Latasha Route Start Time Stop Time Status Last Admin Dose Admin Heparin Sodium (Porcine) (Heparin Sq 5000 Unit/0.5ml) 5,000 unit Q8 SQ 09/09/17 22:00 10/09/17 21:59 09/16/17 14:13 5,000 UNIT Acetaminophen (Tylenol Tab) 650 mg Q4H PRN PO 09/09/17 18:00 10/09/17 17:59 09/12/17 21:27 650 MG Ondansetron HCl (Zofran Inj) 4 mg Q6H PRN IV 09/09/17 18:00 10/09/17 17:59 Miscellaneous Information (Consult Glycemic Management Pharmacy) 1 ea UD PRN N/A 09/09/17 18:10 10/09/17 18:09 Amlodipine Besylate (Norvasc Tab) 10 mg DAILY PO 09/10/17 09:00 10/10/17 08:59 09/16/17 09:34 10 MG Aspirin (Ecotrin Tab) 81 mg QAM PO 09/10/17 09:00 10/10/17 08:59 09/16/17 09:33 81 MG Atorvastatin Calcium (Lipitor Tab) 40 mg DAILY PO 09/10/17 09:00 10/10/17 08:59 09/16/17 09:33 40 MG Carvedilol (Coreg Tab) 25 mg BIDM PO 09/10/17 07:30 10/10/17 07:59 09/16/17 06:36 25 MG Divalproex Sodium (Depakote Delay Rel Tab) 500 mg Q12 PO 09/09/17 21:00 10/09/17 20:59 09/16/17 09:34 500 MG Docusate Sodium (coLACE CAP) 100 mg BID PRN PO 09/09/17 18:15 10/09/17 18:14 Multivitamins/ Minerals (Multivitamin W/ Minerals Tab) 1 tab DAILY PO 09/10/17 09:00 10/10/17 08:59 09/16/17 09:33 1 TAB Nortriptyline HCl (Pamelor Cap) 75 mg HS PO 09/09/17 21:00 10/09/17 20:59 09/15/17 21:06 75 MG Pantoprazole Sodium (Protonix Tab) 40 mg DAILY PO 09/10/17 09:00 10/10/17 08:59 09/16/17 09:34 40 MG Senna/Docusate Sodium (Senokot S Tab) 1 tab DAILY PO 09/10/17 09:00 10/10/17 08:59 09/16/17 09:33 1 TAB Sucralfate (Carafate Tab) 1 gm DAILY PO 09/10/17 09:00 10/10/17 08:59 09/16/17 09:34 1 GM Cholecalciferol (Vitamin D Tab) 2,000 inter.unit DAILY PO 09/10/17 09:00 10/10/17 08:59 09/16/17 09:35 2,000 INTER.UNIT Ferrous Sulfate (Feosol Tab) 325 mg TIDM PO 09/10/17 07:30 10/10/17 07:59 09/16/17 12:04 325 MG Miscellaneous Information (Order Awaiting Action) 1 ea QS N/A 09/10/17 00:00 10/10/17 00:00 Polyethylene (Miralax Powder Packet) 17 gm DAILY PRN PO 09/09/17 18:15 10/09/17 18:14 Oxycodone/ Acetaminophen (Percocet 5-325mg Tab) 1 tab Q6H PRN PO 09/09/17 22:45 09/23/17 22:44 09/16/17 05:29 1 TAB Clonidine HCl (Catapres Tab) 0.1 mg Q6H PRN PO 09/11/17 16:45 10/11/17 16:44 09/16/17 05:21 0.1 MG Lidocaine (Lidoderm Patch 5%) 1 patch QAM TD 09/12/17 09:00 10/12/17 08:59 09/16/17 09:42 1 PATCH Miscellaneous (Remove Lidoderm Patch) 1 ea DAILY@21 N/A 09/11/17 21:00 10/11/17 20:59 09/15/17 21:20 1 EA Cyclobenzaprine HCl (Flexeril Tab) 5 mg BID PRN PO 09/11/17 17:45 10/11/17 17:44 09/15/17 21:08 5 MG Doxycycline Hyclate (Vibramycin Cap) 100 mg BID PO 09/12/17 21:00 09/18/17 21:01 09/16/17 09:35 100 MG Guaifenesin (Mucinex Contr Rel Tab) 600 mg Q12 PO 09/12/17 21:00 10/12/17 20:59 09/16/17 09:32 600 MG Glucose (Glucose 40% Gel) 15-30 GRAMS 15 GRAMS... UD PRN PO 09/13/17 09:30 10/13/17 09:29 09/15/17 17:03 30 GM Glucose (Glucose Chew Tab) 4-8 Tablets 4 Tabl... UD PRN PO 09/13/17 09:30 10/13/17 09:29 09/15/17 16:31 8 TABS Dextrose (Dextrose 50% 50ML Syringe) 25-50ML OF 50% DW IV FOR... UD PRN IV 09/13/17 09:30 10/13/17 09:29 09/13/17 16:42 50 ML Glucagon (Glucagon Inj) 1 mg UD PRN SQ 09/13/17 09:30 10/13/17 09:29 Clonidine HCl (Catapres Tab) 0.2 mg BID PO 09/15/17 09:00 10/14/17 08:59 09/16/17 09:36 0.2 MG Insulin Glargine (Lantus Solostar Pen) 10 units BID SQ 09/16/17 09:00 10/16/17 08:59 09/16/17 09:39 10 UNITS Insulin Aspart (novoLOG ASPART) SLIDING SCALE QDB SC 09/16/17 07:30 10/16/17 07:29 09/16/17 09:38 9 UNITS Insulin Aspart (novoLOG ASPART) SLIDING SCALE TID@1100,1615,2100 [place] 09/16/17 11:00 10/16/17 10:59 Future hold Hydralazine HCl (Apresoline Tab) 75 mg QID PO 09/16/17 09:00 10/09/17 20:59 09/16/17 12:04 75 MG Levalbuterol (Xopenex 0.63 Mg/ 3 Ml Neb) 0.63 mg Q4R PRN INH 09/16/17 10:00 10/16/17 09:59 Sodium Chloride 1,000 ml @ 60 mls/hr [id number] IV 09/16/17 08:45 10/16/17 08:44 09/16/17 09:53 60 MLS/HR Insulin Aspart (novoLOG ASPART) SLIDING SCALE TODAY@0000,0400 [place] 09/17/17 00:00 09/17/17 04:01 Last 24 Hours Test 09/15/17 16:56 09/15/17 17:22 09/15/17 20:15 09/16/17 01:58 Bedside Glucose 52 mg/dl 84 mg/dl 267 mg/dl 297 mg/dl Test 09/16/17 06:29 09/16/17 06:34 09/16/17 07:00 09/16/17 11:33 Sodium Level 137 mmol/L Potassium Level 5.4 mmol/L Chloride Level 109 mmol/L Carbon Dioxide Level 21 mmol/L Anion Gap 7.0 mmol/L Blood Urea Nitrogen 56 mg/dl Creatinine 4.26 mg/dl Est Creatinine Clear Calc Drug Dose 14.4 ml/min Estimated GFR () 13.3 Estimated GFR (Non- 11.5 BUN/Creatinine Ratio 13.1 Random Glucose 424 mg/dl Calcium Level 8.1 mg/dl Beta-Hydroxybutyric Acid 0.96 mg/dL White Blood Count 6.41 K/uL Red Blood Count 2.82 M/uL Hemoglobin 8.3 g/dL Hematocrit 24.6 % Mean Corpuscular Volume 87.2 fL Mean Corpuscular Hemoglobin 29.4 pg Mean Corpuscular Hemoglobin Concent 33.7 g/dl Platelet Count 244 K/uL Mean Platelet Volume 9.9 fL Neutrophils (%) (Auto) 63.6 % Lymphocytes (%) (Auto) 25.6 % Monocytes (%) (Auto) 6.9 % Eosinophils (%) (Auto) 2.8 % Basophils (%) (Auto) 0.8 % Neutrophils # (Auto) 4.08 K/uL Lymphocytes # (Auto) 1.64 K/uL Monocytes # (Auto) 0.44 K/uL Eosinophils # (Auto) 0.18 K/uL Basophils # (Auto) 0.05 K/uL RDW Standard Deviation 43.6 fL RDW Coefficient of Variation 13.5 % Immature Granulocyte % (Auto) 0.3 % Immature Granulocyte # (Auto) 0.02 K/uL Bedside Glucose 407 mg/dl 384 mg/dl Test 09/16/17 11:35 09/16/17 12:22 09/16/17 16:28 Bedside Glucose 349 mg/dl 118 mg/dl Potassium Level 4.7 mmol/L Assessment & Plan CKD stage 4-creatinine baseline of 3.5 however may be at new baseline in the low 4s. restarted low rate of iv fluids. does not appear particularly dry and bp has been elevated. will plan on stopping the iv fluids tomorrow and calling tomorrow's creatinine her new baseline. does have a maturing fistula. no role for dialysis at this time since no uremic symptoms. Anemia of renal failure-spoke to Dr. Monroe her primary pot fluxer. has had complicated hospital admissions but agrees that she would benefit from procrit once bp under better control and able to see him in the office. hard to initiate procrit with the frequent hospitilizations. did get one unit of blood during this admission. HTN: currently on norvasc 10mg a day, coreg 25 bid, hydralazine 75 qid, clonidine 0.2 bid, hydralazine recently titrated up. may be closer to starting dialysis than we think. creatinine may be at new baseline and with the elevated bp, may benefit from stopping the iv fluids and giving a diuretic which is likely to make creatinine progressively worsen and likely should be started on procrit as an outpt as well.
[2017-09-16] MEDS: GLUCOSE 10 TABS/TUBE PO PRN (20:59)
[2017-09-16] MEDS: GLUCOSE 40% GEL 15 GM TUBE PO PRN (21:25)
[2017-09-16] MEDS: NORTRIPTYLINE HCL 25 MG CAP PO SCH (21:27)
[2017-09-16] MEDS: ACETAMINOPHEN 325 MG TAB PO PRN (21:36)
[2017-09-16] MEDS: CYCLOBENZAPRINE HCL 5 MG TAB PO PRN (22:17)
[2017-09-17] VITALS (12 sets, daily range): BP systolic 133–150; BP diastolic 68–79; PULSE 61–66; TEMP 36.3–36.8; O2SAT 95–99
[2017-09-17] MEDS: SODIUM CHLORIDE 0.9% 1000ML 1,000 ML IV SCH (01:34)
[2017-09-17] MEDS: INSULIN ASPART 100 UNITS/ML 3 ML PEN SC SCH ×3 (04:00→08:30)
[2017-09-17] MEDS: GLUCOSE 40% GEL 15 GM TUBE PO PRN ×2 (04:05→11:27)
[2017-09-17] MEDS: HEPARIN SOD 5000 UNIT/0.5 ML CARP SQ SCH ×3 (06:29→21:38)
[2017-09-17] MEDS: BREO ELLIPTA: ORDER AWAITING ACTION SCH ×2 (08:00→16:00)
[2017-09-17] MEDS: AMLODIPINE BESYLATE 5 MG TAB PO SCH (08:22)
[2017-09-17] MEDS: CLONIDINE HCL 0.1 MG TAB PO SCH ×2 (08:23→21:34)
[2017-09-17] MEDS: CHOLECALCIFEROL 1000 INTER.UNIT TAB PO SCH (08:23)
[2017-09-17] MEDS: DOCUSATE SODIUM/SENNA 50/8.6MG TAB PO SCH (08:23)
[2017-09-17] MEDS: ATORVASTATIN 40 MG TAB PO SCH (08:23)
[2017-09-17] MEDS: SUCRALFATE 1 GM TAB PO SCH (08:23)
[2017-09-17] MEDS: GUAIFENESIN 600 MG TABCR PO SCH (08:24)
[2017-09-17] MEDS: FERROUS SULFATE 325 MG TAB PO SCH ×3 (08:24→16:30)
[2017-09-17] MEDS: CEROVITE ADV FORMULA TAB PO SCH (08:24)
[2017-09-17] MEDS: CARVEDILOL 25 MG TAB PO SCH ×2 (08:24→16:31)
[2017-09-17] MEDS: PANTOprazole SOD 40 MG TAB PO SCH (08:24)
[2017-09-17] MEDS: ASPIRIN 81 MG ECTAB PO SCH (08:25)
[2017-09-17] MEDS: DOXYCYCLINE HYCLATE 100 MG CAP PO SCH ×2 (08:25→21:35)
[2017-09-17] MEDS: DIVALPROEX SODIUM 500 MG DELAY RELEASE TAB PO SCH ×2 (08:25→21:35)
[2017-09-17] MEDS: LIDODERM (LIDOCAINE) PATCH 5% TD SCH (08:26)
[2017-09-17] MEDS: INSULIN GLARGINE SOLOSTAR 100 UNITS/ML 3 ML PEN SQ SCH ×2 (08:31→21:23)
--- NOTE | 2017-09-17 08:42 | Nephrology Progress Note ---
Nephrology Progress Note Date of Service: Sep 17, 2017. Subjective 47 yo female who presented with marielle on ckd stage 4 and brittle diabetes. continues to have issues with blood sugars. blood sugar was low last night. pt not uremic. boyfriend in room and answered his questions. Objective Date Time Temp Pulse Resp B/P (MAP) Pulse Ox O2 Delivery O2 Flow Rate FiO2 09/17/17 07:48 36.8 66 12 133/69 (90) 97 Room Air 09/17/17 04:07 97 Room Air 09/17/17 03:12 36.7 62 17 149/79 (102) 96 Room Air 09/17/17 00:01 97 Room Air 09/16/17 23:25 36.7 61 17 110/56 (74) 96 Room Air 09/16/17 20:50 36.3 66 18 153/68 (96) 96 Room Air 09/16/17 20:00 97 Room Air 09/16/17 16:27 36.6 62 20 144/72 (96) 97 Room Air 09/16/17 16:00 95 Room Air 09/16/17 12:15 36.3 63 16 163/74 (103) 98 Room Air 09/16/17 12:00 95 Room Air Physical Exam: General-aaox3 Eyes-no scleral icterus ENT-mmm Neck-supple Lungs-clear Heart-regular Abdomen-bs+ s/nt Extremities-no c/c, mild edema Neuro-nonfocal Current Inpatient Medications Medications (Trade) Dose Ordered Sig/Latasha Route Start Time Stop Time Status Last Admin Dose Admin Heparin Sodium (Porcine) (Heparin Sq 5000 Unit/0.5ml) 5,000 unit Q8 SQ 09/09/17 22:00 10/09/17 21:59 09/17/17 06:29 5,000 UNIT Acetaminophen (Tylenol Tab) 650 mg Q4H PRN PO 09/09/17 18:00 10/09/17 17:59 09/16/17 21:36 650 MG Ondansetron HCl (Zofran Inj) 4 mg Q6H PRN IV 09/09/17 18:00 10/09/17 17:59 Miscellaneous Information (Consult Glycemic Management Pharmacy) 1 ea UD PRN N/A 09/09/17 18:10 10/09/17 18:09 Amlodipine Besylate (Norvasc Tab) 10 mg DAILY PO 09/10/17 09:00 10/10/17 08:59 09/17/17 08:22 10 MG Aspirin (Ecotrin Tab) 81 mg QAM PO 09/10/17 09:00 10/10/17 08:59 09/17/17 08:25 81 MG Atorvastatin Calcium (Lipitor Tab) 40 mg DAILY PO 09/10/17 09:00 10/10/17 08:59 09/17/17 08:23 40 MG Carvedilol (Coreg Tab) 25 mg BIDM PO 09/10/17 07:30 10/10/17 07:59 09/17/17 08:24 25 MG Divalproex Sodium (Depakote Delay Rel Tab) 500 mg Q12 PO 09/09/17 21:00 10/09/17 20:59 09/17/17 08:25 500 MG Docusate Sodium (coLACE CAP) 100 mg BID PRN PO 09/09/17 18:15 10/09/17 18:14 Multivitamins/ Minerals (Multivitamin W/ Minerals Tab) 1 tab DAILY PO 09/10/17 09:00 10/10/17 08:59 09/17/17 08:24 1 TAB Nortriptyline HCl (Pamelor Cap) 75 mg HS PO 09/09/17 21:00 10/09/17 20:59 09/16/17 21:27 75 MG Pantoprazole Sodium (Protonix Tab) 40 mg DAILY PO 09/10/17 09:00 10/10/17 08:59 09/17/17 08:24 40 MG Senna/Docusate Sodium (Senokot S Tab) 1 tab DAILY PO 09/10/17 09:00 10/10/17 08:59 09/17/17 08:23 1 TAB Sucralfate (Carafate Tab) 1 gm DAILY PO 09/10/17 09:00 10/10/17 08:59 09/17/17 08:23 1 GM Cholecalciferol (Vitamin D Tab) 2,000 inter.unit DAILY PO 09/10/17 09:00 10/10/17 08:59 09/17/17 08:23 2,000 INTER.UNIT Ferrous Sulfate (Feosol Tab) 325 mg TIDM PO 09/10/17 07:30 10/10/17 07:59 09/17/17 08:24 325 MG Miscellaneous Information (Order Awaiting Action) 1 ea QS N/A 09/10/17 00:00 10/10/17 00:00 Polyethylene (Miralax Powder Packet) 17 gm DAILY PRN PO 09/09/17 18:15 10/09/17 18:14 Oxycodone/ Acetaminophen (Percocet 5-325mg Tab) 1 tab Q6H PRN PO 09/09/17 22:45 09/23/17 22:44 09/16/17 17:01 1 TAB Clonidine HCl (Catapres Tab) 0.1 mg Q6H PRN PO 09/11/17 16:45 10/11/17 16:44 09/16/17 05:21 0.1 MG Lidocaine (Lidoderm Patch 5%) 1 patch QAM TD 09/12/17 09:00 10/12/17 08:59 09/17/17 08:26 1 PATCH Miscellaneous (Remove Lidoderm Patch) 1 ea DAILY@21 N/A 09/11/17 21:00 10/11/17 20:59 09/16/17 21:00 1 EA Cyclobenzaprine HCl (Flexeril Tab) 5 mg BID PRN PO 09/11/17 17:45 10/11/17 17:44 09/16/17 22:17 5 MG Doxycycline Hyclate (Vibramycin Cap) 100 mg BID PO 09/12/17 21:00 09/18/17 21:01 09/17/17 08:25 100 MG Guaifenesin (Mucinex Contr Rel Tab) 600 mg Q12 PO 09/12/17 21:00 10/12/17 20:59 09/17/17 08:24 600 MG Glucose (Glucose 40% Gel) 15-30 GRAMS 15 GRAMS... UD PRN PO 09/13/17 09:30 10/13/17 09:29 09/17/17 04:05 15 GM Glucose (Glucose Chew Tab) 4-8 Tablets 4 Tabl... UD PRN PO 09/13/17 09:30 10/13/17 09:29 09/16/17 20:59 8 TABS Dextrose (Dextrose 50% 50ML Syringe) 25-50ML OF 50% DW IV FOR... UD PRN IV 09/13/17 09:30 5/6/18 09:29 09/13/17 16:42 50 ML Glucagon (Glucagon Inj) 1 mg UD PRN SQ 09/13/17 09:30 10/13/17 09:29 Clonidine HCl (Catapres Tab) 0.2 mg BID PO 09/15/17 09:00 10/14/17 08:59 09/17/17 08:23 0.2 MG Insulin Aspart (novoLOG ASPART) SLIDING SCALE QDB SC 09/16/17 07:30 10/16/17 07:29 09/17/17 08:30 6 UNITS Insulin Aspart (novoLOG ASPART) SLIDING SCALE TID@1100,1615,2100 SC 09/16/17 11:00 10/16/17 10:59 Future hold 09/16/17 16:56 1 UNITS Hydralazine HCl (Apresoline Tab) 75 mg QID PO 09/16/17 09:00 10/09/17 20:59 09/17/17 08:25 75 MG Levalbuterol (Xopenex 0.63 Mg/ 3 Ml Neb) 0.63 mg Q4R PRN INH 09/16/17 10:00 10/16/17 09:59 Insulin Glargine (Lantus Solostar Pen) 8 units DAILY@0900 SQ 09/17/17 09:00 10/16/17 08:59 09/17/17 08:31 8 UNITS Insulin Glargine (Lantus Solostar Pen) 10 units DAILY@2100 SQ 09/17/17 21:00 10/17/17 20:59 Last 24 Hours Test 09/16/17 11:33 09/16/17 11:35 09/16/17 12:22 09/16/17 16:28 Bedside Glucose 384 mg/dl 349 mg/dl 118 mg/dl Potassium Level 4.7 mmol/L Test 09/16/17 20:52 09/16/17 21:45 09/17/17 00:05 09/17/17 04:21 Bedside Glucose 39 mg/dl 211 mg/dl 112 mg/dl 69 mg/dl Test 09/17/17 06:48 09/17/17 08:28 Bedside Glucose 226 mg/dl Assessment & Plan CKD stage 4-creatinine baseline of 3.5 and to repeat bmp again today. feel with the multiple hospitilizations and bp and diabetes issues, may have progressively worsening renal function. do not feel she is volume depleted at this time. not uremic and does have a maturing fistula. would follow up with Dr. Monroe in [place] to follow creatinine trend. will eventually need dialysis in the next couple of months. stopped the fluids. Anemia of renal failure-spoke to Dr. 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 will initiate procrit referral in the next office visit with Dr. Monroe. HTN: currently on norvasc 10mg a day, coreg 25 bid, hydralazine 75 qid, clonidine 0.2 bid, hydralazine recently titrated up. bp is better.
[2017-09-17 09:28] LABS: CREATININE 3.84 mg/dl (0.60-1.20); POTASSIUM 5.3 mmol/L (3.5-5.1)
--- NOTE | 2017-09-17 09:55 | Progress Note ---
Subjective Date of Service: Sep 17, 2017. Subjective Pt evaluation today including: conversation w/ patient, physical exam, lab review, review of studies, review of inpatient medication list Saw/examined the patient in room 219 She was walking around the hallways earlier with a cane Did well; states that she is eager to go back to rehab Does not want an insulin pump any longer; wants to stick with insulin injections Problem List Medical Problems: (1) Acute chest pain Status: Acute (2) Anemia Status: Acute (3) CKD (chronic kidney disease) Status: Acute (4) Hyperglycemia Status: Acute (5) Hyperkalemia Status: Acute Review of Systems Constitutional: No fever, No chills Respiratory: No cough, No sputum, No shortness of breath Cardiac: No chest pain Abdomen: No pain, No nausea, No vomiting, No diarrhea Musculoskeletal: + joint pain (RLE), + muscle pain (RLE) Neurologic: + weakness (RLE), + balance problems Heme: No abnormal bleeding/bruising Medications Current Inpatient Medications Medications (Trade) Dose Ordered Sig/Latasha Route Start Time Stop Time Status Last Admin Dose Admin Heparin Sodium (Porcine) (Heparin Sq 5000 Unit/0.5ml) 5,000 unit Q8 SQ 09/09/17 22:00 10/09/17 21:59 09/17/17 06:29 5,000 UNIT Acetaminophen (Tylenol Tab) 650 mg Q4H PRN PO 09/09/17 18:00 10/09/17 17:59 09/16/17 21:36 650 MG Ondansetron HCl (Zofran Inj) 4 mg Q6H PRN IV 09/09/17 18:00 10/09/17 17:59 Miscellaneous Information (Consult Glycemic Management Pharmacy) 1 ea UD PRN N/A 09/09/17 18:10 10/09/17 18:09 Amlodipine Besylate (Norvasc Tab) 10 mg DAILY PO 09/10/17 09:00 10/10/17 08:59 09/17/17 08:22 10 MG Aspirin (Ecotrin Tab) 81 mg QAM PO 09/10/17 09:00 10/10/17 08:59 09/17/17 08:25 81 MG Atorvastatin Calcium (Lipitor Tab) 40 mg DAILY PO 09/10/17 09:00 10/10/17 08:59 09/17/17 08:23 40 MG Carvedilol (Coreg Tab) 25 mg BIDM PO 09/10/17 07:30 10/10/17 07:59 09/17/17 08:24 25 MG Divalproex Sodium (Depakote Delay Rel Tab) 500 mg Q12 PO 09/09/17 21:00 10/09/17 20:59 09/17/17 08:25 500 MG Docusate Sodium (coLACE CAP) 100 mg BID PRN PO 09/09/17 18:15 10/09/17 18:14 Multivitamins/ Minerals (Multivitamin W/ Minerals Tab) 1 tab DAILY PO 09/10/17 09:00 10/10/17 08:59 09/17/17 08:24 1 TAB Nortriptyline HCl (Pamelor Cap) 75 mg HS PO 09/09/17 21:00 10/09/17 20:59 09/16/17 21:27 75 MG Pantoprazole Sodium (Protonix Tab) 40 mg DAILY PO 09/10/17 09:00 10/10/17 08:59 09/17/17 08:24 40 MG Senna/Docusate Sodium (Senokot S Tab) 1 tab DAILY PO 09/10/17 09:00 10/10/17 08:59 09/17/17 08:23 1 TAB Sucralfate (Carafate Tab) 1 gm DAILY PO 09/10/17 09:00 10/10/17 08:59 09/17/17 08:23 1 GM Cholecalciferol (Vitamin D Tab) 2,000 inter.unit DAILY PO 09/10/17 09:00 10/10/17 08:59 09/17/17 08:23 2,000 INTER.UNIT Ferrous Sulfate (Feosol Tab) 325 mg TIDM PO 09/10/17 07:30 10/10/17 07:59 09/17/17 08:24 325 MG Miscellaneous Information (Order Awaiting Action) 1 ea QS N/A 09/10/17 00:00 10/10/17 00:00 Polyethylene (Miralax Powder Packet) 17 gm DAILY PRN PO 09/09/17 18:15 10/09/17 18:14 Oxycodone/ Acetaminophen (Percocet 5-325mg Tab) 1 tab Q6H PRN PO 09/09/17 22:45 09/23/17 22:44 09/16/17 17:01 1 TAB Clonidine HCl (Catapres Tab) 0.1 mg Q6H PRN PO 09/11/17 16:45 10/11/17 16:44 09/16/17 05:21 0.1 MG Lidocaine (Lidoderm Patch 5%) 1 patch QAM TD 09/12/17 09:00 10/12/17 08:59 09/17/17 08:26 1 PATCH Miscellaneous (Remove Lidoderm Patch) 1 ea DAILY@21 N/A 09/11/17 21:00 10/11/17 20:59 09/16/17 21:00 1 EA Cyclobenzaprine HCl (Flexeril Tab) 5 mg BID PRN PO 09/11/17 17:45 10/11/17 17:44 09/16/17 22:17 5 MG Doxycycline Hyclate (Vibramycin Cap) 100 mg BID PO 09/12/17 21:00 09/18/17 21:01 09/17/17 08:25 100 MG Guaifenesin (Mucinex Contr Rel Tab) 600 mg Q12 PO 09/12/17 21:00 10/12/17 20:59 09/17/17 08:24 600 MG Glucose (Glucose 40% Gel) 15-30 GRAMS 15 GRAMS... UD PRN PO 09/13/17 09:30 10/13/17 09:29 09/17/17 04:05 15 GM Glucose (Glucose Chew Tab) 4-8 Tablets 4 Tabl... UD PRN PO 09/13/17 09:30 10/13/17 09:29 09/16/17 20:59 8 TABS Dextrose (Dextrose 50% 50ML Syringe) 25-50ML OF 50% DW IV FOR... UD PRN IV 09/13/17 09:30 10/13/17 09:29 09/13/17 16:42 50 ML Glucagon (Glucagon Inj) 1 mg UD PRN SQ 09/13/17 09:30 10/13/17 09:29 Clonidine HCl (Catapres Tab) 0.2 mg BID PO 09/15/17 09:00 10/14/17 08:59 09/17/17 08:23 0.2 MG Insulin Aspart (novoLOG ASPART) SLIDING SCALE QDB SC 09/16/17 07:30 10/16/17 07:29 09/17/17 08:30 6 UNITS Insulin Aspart (novoLOG ASPART) SLIDING SCALE TID@1100,1615,2100 SC 09/16/17 11:00 10/16/17 10:59 Future hold 09/16/17 16:56 1 UNITS Hydralazine HCl (Apresoline Tab) 75 mg QID PO 09/16/17 09:00 10/09/17 20:59 09/17/17 08:25 75 MG Levalbuterol (Xopenex 0.63 Mg/ 3 Ml Neb) 0.63 mg Q4R PRN INH 09/16/17 10:00 10/16/17 09:59 Insulin Glargine (Lantus Solostar Pen) 8 units DAILY@0900 SQ 09/17/17 09:00 10/16/17 08:59 09/17/17 08:31 8 UNITS Insulin Glargine (Lantus Solostar Pen) 10 units DAILY@2100 SQ 09/17/17 21:00 10/17/17 20:59 Objective Vital Signs Date Time Temp Pulse Resp B/P (MAP) Pulse Ox O2 Delivery O2 Flow Rate FiO2 09/17/17 07:48 36.8 66 12 133/69 (90) 97 Room Air 09/17/17 04:07 97 Room Air 09/17/17 03:12 36.7 62 17 149/79 (102) 96 Room Air 09/17/17 00:01 97 Room Air 09/16/17 23:25 36.7 61 17 110/56 (74) 96 Room Air 09/16/17 20:50 36.3 66 18 153/68 (96) 96 Room Air 09/16/17 20:00 97 Room Air 09/16/17 16:27 36.6 62 20 144/72 (96) 97 Room Air 09/16/17 16:00 95 Room Air 09/16/17 12:15 36.3 63 16 163/74 (103) 98 Room Air 09/16/17 12:00 95 Room Air Physical Exam General Appearance: no apparent distress, + pertinent finding (R sided weakness ) Eyes: normal inspection ENT: hearing grossly normal Respiratory/Chest: chest non-tender, lungs clear, normal breath sounds, no respiratory distress, no accessory muscle use Cardiovascular: regular rate, rhythm, no edema, no murmur Abdomen: normal bowel sounds, non tender, soft Extremities: non-tender, normal inspection, no pedal edema Neurologic/Psychiatric: alert, normal mood/affect, + motor weakness (R LE weakness) Laboratory Results Last 24 Hours Test 09/16/17 11:33 09/16/17 11:35 09/16/17 12:22 09/16/17 16:28 Bedside Glucose 384 mg/dl 349 mg/dl 118 mg/dl Potassium Level 4.7 mmol/L Test 09/16/17 20:52 09/16/17 21:45 09/17/17 00:05 09/17/17 04:21 Bedside Glucose 39 mg/dl 211 mg/dl 112 mg/dl 69 mg/dl Test 09/17/17 06:48 09/17/17 08:28 Bedside Glucose 226 mg/dl Assessment and Plan This is a 47 year old female with a past medical history of type 1 diabetes mellitus on an insulin pump prior to arrival, with diabetic complications including retinopathy, gastroparesis and nephropathy, CKD stage IV, anemia of chronic kidney disease, vitamin D deficiency, iron deficiency, HTN, HLD, bipolar disorder, hx. of seizures, CAD, chronic diastolic CHF - had a recent CVA and tPA administration; was sent to inpatient rehab and sent from there to [facility] due to malfunctioning insulin pump and hyperglycemia, dehydration and GEOVANI. Hyperglycemia in the setting of Brittle Diabetes and Malfunctioning Pump/Type 1 DM - patient states she has been on an insulin pump for one month and has had multiple complications with it, including hypoglycemia, seizures, etc. - pump stopped functioning at [facility] rehab - presented with hyperglycemia - initially was on an insulin drip, now on basal/bolus insulin - still has hypo and hyperglycemic episodes - due to brittle diabetes/type 1 DM - this will be difficult to control - appreciate pharmacy glycemic control input - currently on 10 units of Lantus in the AM, 8 units in the PM with a sliding scale to cover breakfast and a separate one for the rest of the day - will speak with pharmacy regarding outpatient regimen prior to discharge - plan to d/c back to [facility] Acute Kidney Injury superimposed on CKD stage IV - creatinine has been fluctuating in the upper 3's and peaked at 4.3 - appreciate nephrology input - stopped all IV fluids at this time - her kidney function will worsen with uncontrolled diabetes and general decline - outpatient nephrology follow-up recommended Anemia of Chronic Disease - one unit pRBC transfusion - likely secondary to chronic kidney disease - will discuss outpatient Procrit injections Atypical Chest Pain - resolved Hx. of CAD - troponin negative x3 - echo shows a grade 2 diastolic dysfunction; normal LVEF, normal wall motion abnormality - continue aspirin, statin, b-wiley HTN - blood pressure improved with new medication regimen - will continue Amlodipine 10mg, Coreg 25mg BID, clonidine 0.2mg BID, Hydralazine 75mg TID - can titrate hydralazine or clonidine up if needed as outpatient Acute Bronchitis - continue doxycycline to complete the 7 day course (stop date 09/18) - continue nebs as needed - will stop Mucinex Recent CVA - continue PT/OT - will need inpatient rehab on discharge - continue aspirin, statin Hx. of Seizures - continue Depakote; monitor for hypoglycemic Hx. of Chronic Diastolic CHF - monitor for fluid overload - echo shows grade 2 diastolic dysfunction, currently seems euvolemic Hyperkalemia - improving - should improve with continued insulin tx. - outpatient electrolyte follow-up DVT ppx - subq heparin FULL CODE
--- NOTE | 2017-09-17 11:28 | Pharmacy Progress Note ---
Pharmacy Glycemic Short Note 2 Date of Service Sep 17, 2017. OUTPATIENT ANTIDIABETIC REGIMEN: * NovoLog Insulin Pump * Basal rate: 0.6 units/hr * CF: 90, CR: 30 Item Value Date Time Bedside Glucose 191 mg/dl 09/14/16 2036 Bedside Glucose 358 mg/dl H 09/15/17 0644 Bedside Glucose 314 mg/dl H 09/15/17 1105 Bedside Glucose 51 mg/dl *L 09/15/17 1607 Bedside Glucose 45 mg/dl *L 09/15/17 1624 Bedside Glucose 52 mg/dl *L 09/15/17 1656 Bedside Glucose 84 mg/dl 09/15/17 1722 Bedside Glucose 267 mg/dl H 09/15/17 2015 Bedside Glucose 297 mg/dl H 09/16/17 0158 Bedside Glucose 407 mg/dl *H 09/16/17 0700 Bedside Glucose 384 mg/dl *H 09/16/17 1133 Bedside Glucose 349 mg/dl H 09/16/17 1135 Bedside Glucose 118 mg/dl H 09/16/17 1628 Bedside Glucose 39 mg/dl *L 09/16/17 2052 Bedside Glucose 57 mg/dl *L 09/16/17 2119 Bedside Glucose 211 mg/dl H 09/16/17 2145 Bedside Glucose 112 mg/dl H 09/17/17 0005 Bedside Glucose 53 mg/dl *L 09/17/17 0356 Bedside Glucose 69 mg/dl *L 09/17/17 0421 Bedside Glucose 226 mg/dl H 09/17/17 0648 ASSESSMENT: * 47yo T1DM female, outpatient control is sub-adequate per recent A1c but A1c may not be totally reliable secondary to CKD/anemia. Pt with extremely brittle T1DM; also complicated by gastroparesis. * BSGs have been poorly controlled since admission despite frequent monitoring and insulin order adjustments by pharmacy. * HYPOGLYCEMIA: Most often prior to dinner secondary to overcorrection of BSG and insulin stacking from gastroparesis. AM fasting BSG is elevated --> then corrected/CHO covered, but pre-lunch BSG remains elevated d/t gastroparesis. This leads to additional correctional insulin at lunch time ( correcting an artificially elevated BSG) which causes hypo at dinner * HYPERGLYCEMIA: Most often AM fasting. Lantus likely not lasting 24hrs in patient, therefore, Pharmacy split Lantus dosing BID. Basal needs are likely somewhere between 16-19 units/day. Pt with severe hyperglycemia with 15 units of basal and hypoglycemia with 20 units of basal insulin. * Estimated total daily dose of SQ insulin is ~35-40 units/day. PLAN FOR INPATIENT GLYCEMIC CONTROL: * Basal insulin: decrease dosing * Lantus 8 units SQ AM + 10 units SQ HS * Bolus insulin: change to REGULAR insulin for gastroparesis. Significantly loosen/lessen CF insulin to prevent over-correction of artificially elevated BSGs from gastroparesis * Regular insulin per scale ACHS or Q6hrs while NPO * Goal Range: Low 110 mg/dL - High 160 mg/dL * Parameters for breakfast: Correction Factor: 70 mg/dL/unit Nutritional / Prandial insulin per carb ratio of 1 unit per 10 grams CHO consumed * Parameters for lunch, dinner, and HS: Correction Factor: 70 mg/dL/unit Nutritional / Prandial insulin per carb ratio of 1 unit per 15 grams CHO consumed Thank you.
[2017-09-17] MEDS: INSULIN HUMAN REGULAR SC SCH ×3 (11:30→21:27)
[2017-09-17] MEDS ORDERED: INSULIN HUMAN REGULAR SC ONE (12:45)
[2017-09-17] MEDS: OXYCODONE/ACETAMINOPHEN 5-325 TAB PO PRN ×2 (12:51→16:37)
[2017-09-17] MEDS ORDERED: INSULIN GLARGINE SOLOSTAR 100 UNITS/ML 3 ML PEN SQ SCH (21:00)
[2017-09-17] MEDS: NORTRIPTYLINE HCL 25 MG CAP PO SCH (21:37)
[2017-09-18] VITALS (9 sets, daily range): BP systolic 146–158; BP diastolic 66–81; PULSE 58–66; TEMP 36.4–36.9; O2SAT 95–98
[2017-09-18] MEDS: CYCLOBENZAPRINE HCL 5 MG TAB PO PRN (00:12)
[2017-09-18] MEDS: HEPARIN SOD 5000 UNIT/0.5 ML CARP SQ SCH ×3 (05:52→21:28)
[2017-09-18 05:59] LABS: HEMATOCRIT 23.7 % (37-47); HEMOGLOBIN 7.8 g/dL (12.0-16.0); MEAN CELL VOLUME 87.8 fL (80-100); MEAN CORPUSCULAR HEMOGLOBIN 28.9 pg (25-34); MEAN CORPUSCULAR HGB CONC 32.9 g/dl (32-36); MEAN PLATELET VOLUME 10.2 fL (7.4-10.4); PLATELET COUNT 228 K/uL (130-400); RED CELL DISTRIBUTION WIDTH CV 13.8 % (11.5-14.5); RED CELL DISTRIBUTION WIDTH SD 44.7 fL (36.4-46.3); WHITE BLOOD COUNT 4.05 K/uL (4.8-10.8)
[2017-09-18 06:30] LABS: CALCIUM 7.8 mg/dl (8.5-10.1); CREATININE 3.96 mg/dl (0.60-1.20); POTASSIUM 4.6 mmol/L (3.5-5.1)
--- NOTE | 2017-09-18 08:46 | Progress Note ---
Subjective Date of Service: Sep 18, 2017. Subjective Pt evaluation today including: conversation w/ patient, physical exam, lab review, review of studies, review of inpatient medication list Saw/examined the patient in room 219 Patient has been ambulating in the hallway with a four point cane; doing well Denies any chest pain/shortness of breath BSGs much better controlled today; again refusing insulin pump Problem List Medical Problems: (1) Acute chest pain Status: Acute (2) Anemia Status: Acute (3) CKD (chronic kidney disease) Status: Acute (4) Hyperglycemia Status: Acute (5) Hyperkalemia Status: Acute Review of Systems Constitutional: + weakness Respiratory: No cough, No sputum, No shortness of breath Cardiac: No chest pain Musculoskeletal: + joint pain (RLE), + muscle pain Medications Current Inpatient Medications Medications (Trade) Dose Ordered Sig/Latasha Route Start Time Stop Time Status Last Admin Dose Admin Heparin Sodium (Porcine) (Heparin Sq 5000 Unit/0.5ml) 5,000 unit Q8 SQ 09/09/17 22:00 10/09/17 21:59 09/18/17 05:52 5,000 UNIT Acetaminophen (Tylenol Tab) 650 mg Q4H PRN PO 09/09/17 18:00 10/09/17 17:59 09/16/17 21:36 650 MG Ondansetron HCl (Zofran Inj) 4 mg Q6H PRN IV 09/09/17 18:00 10/09/17 17:59 Miscellaneous Information (Consult Glycemic Management Pharmacy) 1 ea UD PRN N/A 09/09/17 18:10 10/09/17 18:09 Amlodipine Besylate (Norvasc Tab) 10 mg DAILY PO 09/10/17 09:00 10/10/17 08:59 09/17/17 08:22 10 MG Aspirin (Ecotrin Tab) 81 mg QAM PO 09/10/17 09:00 10/10/17 08:59 09/17/17 08:25 81 MG Atorvastatin Calcium (Lipitor Tab) 40 mg DAILY PO 09/10/17 09:00 10/10/17 08:59 09/17/17 08:23 40 MG Carvedilol (Coreg Tab) 25 mg BIDM PO 09/10/17 07:30 10/10/17 07:59 09/17/17 16:31 25 MG Divalproex Sodium (Depakote Delay Rel Tab) 500 mg Q12 PO 09/09/17 21:00 10/09/17 20:59 09/17/17 21:35 500 MG Docusate Sodium (coLACE CAP) 100 mg BID PRN PO 09/09/17 18:15 10/09/17 18:14 Multivitamins/ Minerals (Multivitamin W/ Minerals Tab) 1 tab DAILY PO 09/10/17 09:00 10/10/17 08:59 09/17/17 08:24 1 TAB Nortriptyline HCl (Pamelor Cap) 75 mg HS PO 09/09/17 21:00 10/09/17 20:59 09/17/17 21:37 75 MG Pantoprazole Sodium (Protonix Tab) 40 mg DAILY PO 09/10/17 09:00 10/10/17 08:59 09/17/17 08:24 40 MG Senna/Docusate Sodium (Senokot S Tab) 1 tab DAILY PO 09/10/17 09:00 10/10/17 08:59 09/17/17 08:23 1 TAB Sucralfate (Carafate Tab) 1 gm DAILY PO 09/10/17 09:00 10/10/17 08:59 09/17/17 08:23 1 GM Cholecalciferol (Vitamin D Tab) 2,000 inter.unit DAILY PO 09/10/17 09:00 10/10/17 08:59 09/17/17 08:23 2,000 INTER.UNIT Ferrous Sulfate (Feosol Tab) 325 mg TIDM PO 09/10/17 07:30 10/10/17 07:59 09/17/17 16:30 325 MG Miscellaneous Information (Order Awaiting Action) 1 ea QS N/A 09/10/17 00:00 10/10/17 00:00 Polyethylene (Miralax Powder Packet) 17 gm DAILY PRN PO 09/09/17 18:15 10/09/17 18:14 Oxycodone/ Acetaminophen (Percocet 5-325mg Tab) 1 tab Q6H PRN PO 09/09/17 22:45 09/23/17 22:44 09/17/17 16:37 1 TAB Lidocaine (Lidoderm Patch 5%) 1 patch QAM TD 09/12/17 09:00 10/12/17 08:59 09/17/17 08:26 1 PATCH Miscellaneous (Remove Lidoderm Patch) 1 ea DAILY@21 N/A 09/11/17 21:00 10/11/17 20:59 09/17/17 21:00 1 EA Cyclobenzaprine HCl (Flexeril Tab) 5 mg BID PRN PO 09/11/17 17:45 10/11/17 17:44 09/18/17 00:12 5 MG Doxycycline Hyclate (Vibramycin Cap) 100 mg BID PO 09/12/17 21:00 09/18/17 21:01 09/17/17 21:35 100 MG Glucose (Glucose 40% Gel) 15-30 GRAMS 15 GRAMS... UD PRN PO 09/13/17 09:30 10/13/17 09:29 09/17/17 11:27 15 GM Glucose (Glucose Chew Tab) 4-8 Tablets 4 Tabl... UD PRN PO 09/13/17 09:30 10/13/17 09:29 09/16/17 20:59 8 TABS Dextrose (Dextrose 50% 50ML Syringe) 25-50ML OF 50% DW IV FOR... UD PRN IV 09/13/17 09:30 10/13/17 09:29 09/13/17 16:42 50 ML Glucagon (Glucagon Inj) 1 mg UD PRN SQ 09/13/17 09:30 10/13/17 09:29 Clonidine HCl (Catapres Tab) 0.2 mg BID PO 09/15/17 09:00 10/14/17 08:59 09/17/17 21:34 0.2 MG Hydralazine HCl (Apresoline Tab) 75 mg QID PO 09/16/17 09:00 10/09/17 20:59 09/17/17 21:32 75 MG Levalbuterol (Xopenex 0.63 Mg/ 3 Ml Neb) 0.63 mg Q4R PRN INH 09/16/17 10:00 10/16/17 09:59 Insulin Glargine (Lantus Solostar Pen) 8 units DAILY@0900 SQ 09/17/17 09:00 10/16/17 08:59 09/17/17 08:31 8 UNITS Insulin Human Regular (novoLIN-R) USE REGULAR INSULIN FOR M... TID@1130,1645,2100 [place] 09/17/17 11:30 10/17/17 11:29 Future hold 09/17/17 21:27 2 UNITS Insulin Human Regular (novoLIN-R) USE REGULAR INSULIN FOR M... QDB SC 09/18/17 07:30 10/18/17 07:29 Insulin Glargine (Lantus Solostar Pen) 9 units DAILY@2100 SQ 09/17/17 21:00 10/17/17 20:59 09/17/17 21:23 9 UNITS Objective Vital Signs Date Time Temp Pulse Resp B/P (MAP) Pulse Ox O2 Delivery O2 Flow Rate FiO2 09/18/17 07:52 36.9 63 16 158/74 (102) 96 Room Air 09/18/17 04:10 36.8 62 16 148/81 (103) 97 Room Air 09/18/17 04:00 Room Air 09/17/17 23:59 Room Air 09/17/17 23:00 36.5 65 16 149/68 (95) 98 Room Air 09/17/17 20:00 97 Room Air 09/17/17 19:42 36.5 62 16 150/77 (101) 97 Room Air 09/17/17 16:00 97 Room Air 09/17/17 15:34 36.3 62 16 138/69 (92) 99 Room Air 09/17/17 12:00 95 Room Air 09/17/17 11:31 36.4 61 18 139/74 (95) 97 Room Air Physical Exam General Appearance: no apparent distress Respiratory/Chest: chest non-tender, lungs clear, normal breath sounds, no respiratory distress, no accessory muscle use Cardiovascular: regular rate, rhythm, no edema, no murmur Neurologic/Psychiatric: alert, + motor weakness (R side, RLE) Laboratory Results Last 24 Hours Test 09/17/17 08:53 09/17/17 11:17 09/17/17 11:36 09/17/17 11:54 Sodium Level 138 mmol/L Potassium Level 5.3 mmol/L Chloride Level 109 mmol/L Carbon Dioxide Level 20 mmol/L Anion Gap 10.0 mmol/L Blood Urea Nitrogen 54 mg/dl Creatinine 3.84 mg/dl Est Creatinine Clear Calc Drug Dose 16.3 ml/min Estimated GFR () 15.1 Estimated GFR (Non- 13.0 BUN/Creatinine Ratio 14.0 Random Glucose 136 mg/dl Calcium Level 8.0 mg/dl Bedside Glucose 50 mg/dl 48 mg/dl 70 mg/dl Test 09/17/17 16:12 09/17/17 20:14 09/18/17 02:07 09/18/17 05:34 Bedside Glucose 95 mg/dl 180 mg/dl 105 mg/dl White Blood Count 4.05 K/uL Red Blood Count 2.70 M/uL Hemoglobin 7.8 g/dL Hematocrit 23.7 % Mean Corpuscular Volume 87.8 fL Mean Corpuscular Hemoglobin 28.9 pg Mean Corpuscular Hemoglobin Concent 32.9 g/dl RDW Standard Deviation 44.7 fL RDW Coefficient of Variation 13.8 % Platelet Count 228 K/uL Mean Platelet Volume 10.2 fL Sodium Level 137 mmol/L Potassium Level 4.6 mmol/L Chloride Level 111 mmol/L Carbon Dioxide Level 22 mmol/L Anion Gap 4.0 mmol/L Blood Urea Nitrogen 56 mg/dl Creatinine 3.96 mg/dl Est Creatinine Clear Calc Drug Dose 15.8 ml/min Estimated GFR () 14.5 Estimated GFR (Non- 12.5 BUN/Creatinine Ratio 14.2 Random Glucose 96 mg/dl Calcium Level 7.8 mg/dl Test 09/18/17 06:44 Bedside Glucose 104 mg/dl Assessment and Plan This is a 47 year old female with a past medical history of type 1 diabetes mellitus on an insulin pump prior to arrival, with diabetic complications including retinopathy, gastroparesis and nephropathy, CKD stage IV, anemia of chronic kidney disease, vitamin D deficiency, iron deficiency, HTN, HLD, bipolar disorder, hx. of seizures, CAD, chronic diastolic CHF - had a recent CVA and tPA administration; was sent to inpatient rehab and sent from there to [facility] due to malfunctioning insulin pump and hyperglycemia, dehydration and GEOVANI. Hyperglycemia in the setting of Brittle Diabetes and Malfunctioning Pump/Type 1 DM 09/18 - BSGs much better controlled today - currently on Lantus 8 units in AM and 10 units in PM - now on a regular insulin sliding scale with adjusted CF and carb ratio as per pharmacy glycemic control consultation; appreciate input - will likely need these parameters as outpatient 09/17 - patient states she has been on an insulin pump for one month and has had multiple complications with it, including hypoglycemia, seizures, etc. - pump stopped functioning at [facility] rehab - presented with hyperglycemia - initially was on an insulin drip, now on basal/bolus insulin - still has hypo and hyperglycemic episodes - due to brittle diabetes/type 1 DM - this will be difficult to control - appreciate pharmacy glycemic control input - currently on 10 units of Lantus in the AM, 8 units in the PM with a sliding scale to cover breakfast and a separate one for the rest of the day - will speak with pharmacy regarding outpatient regimen prior to discharge - plan to d/c back to [facility] Acute Kidney Injury superimposed on CKD stage IV - creatinine has been fluctuating in the upper 3's and peaked at 4.3 - appreciate nephrology input - stopped all IV fluids at this time - her kidney function will worsen with uncontrolled diabetes and general decline - outpatient nephrology follow-up recommended Anemia of Chronic Disease - one unit pRBC transfusion - likely secondary to chronic kidney disease - will discuss outpatient Procrit injections Atypical Chest Pain - resolved Hx. of CAD - troponin negative x3 - echo shows a grade 2 diastolic dysfunction; normal LVEF, normal wall motion abnormality - continue aspirin, statin, b-wiley HTN - blood pressure improved with new medication regimen - will continue Amlodipine 10mg, Coreg 25mg BID, clonidine 0.2mg BID, Hydralazine 75mg TID - can titrate hydralazine or clonidine up if needed as outpatient Acute Bronchitis - continue doxycycline to complete the 7 day course (stop date 09/18) - continue nebs as needed - will stop Mucinex Recent CVA - continue PT/OT - will need inpatient rehab on discharge - continue aspirin, statin Hx. of Seizures - continue Depakote; monitor for hypoglycemic Hx. of Chronic Diastolic CHF - monitor for fluid overload - echo shows grade 2 diastolic dysfunction, currently seems euvolemic Hyperkalemia - improving - should improve with continued insulin tx. - outpatient electrolyte follow-up DVT ppx - subq heparin FULL CODE
[2017-09-18] MEDS: BREO ELLIPTA: ORDER AWAITING ACTION SCH ×4 (08:59→21:36)
[2017-09-18] MEDS: FERROUS SULFATE 325 MG TAB PO SCH ×3 (08:59→15:25)
[2017-09-18] MEDS: OXYCODONE/ACETAMINOPHEN 5-325 TAB PO PRN ×2 (08:59→17:16)
[2017-09-18] MEDS: CARVEDILOL 25 MG TAB PO SCH ×2 (08:59→15:25)
[2017-09-18] MEDS: CEROVITE ADV FORMULA TAB PO SCH (09:00)
[2017-09-18] MEDS: DOXYCYCLINE HYCLATE 100 MG CAP PO SCH ×2 (09:01→20:01)
[2017-09-18] MEDS: PANTOprazole SOD 40 MG TAB PO SCH (09:01)
[2017-09-18] MEDS: AMLODIPINE BESYLATE 5 MG TAB PO SCH (09:01)
[2017-09-18] MEDS: ASPIRIN 81 MG ECTAB PO SCH (09:01)
[2017-09-18] MEDS: DOCUSATE SODIUM/SENNA 50/8.6MG TAB PO SCH (09:02)
[2017-09-18] MEDS: CHOLECALCIFEROL 1000 INTER.UNIT TAB PO SCH (09:02)
[2017-09-18] MEDS: SUCRALFATE 1 GM TAB PO SCH (09:02)
[2017-09-18] MEDS: DIVALPROEX SODIUM 500 MG DELAY RELEASE TAB PO SCH ×2 (09:02→20:01)
[2017-09-18] MEDS: ATORVASTATIN 40 MG TAB PO SCH (09:02)
[2017-09-18] MEDS: LIDODERM (LIDOCAINE) PATCH 5% TD SCH (09:03)
[2017-09-18] MEDS: CLONIDINE HCL 0.1 MG TAB PO SCH ×2 (09:03→20:01)
[2017-09-18] MEDS: INSULIN HUMAN REGULAR SC SCH ×4 (09:09→20:56)
[2017-09-18] MEDS: INSULIN GLARGINE SOLOSTAR 100 UNITS/ML 3 ML PEN SQ SCH ×2 (09:09→21:27)
--- NOTE | 2017-09-18 09:20 | Pharmacy Progress Note ---
Pharmacy Glycemic Short Note 2 Date of Service Sep 18, 2017. OUTPATIENT ANTIDIABETIC REGIMEN: * NovoLog Insulin Pump * Basal rate: 0.6 units/hr * CF: 90, CR: 30 Item Value Date Time Bedside Glucose 191 mg/dl 09/14/16 2036 Bedside Glucose 358 mg/dl H 09/15/17 0644 Bedside Glucose 314 mg/dl H 09/15/17 1105 Bedside Glucose 51 mg/dl *L 09/15/17 1607 Bedside Glucose 45 mg/dl *L 09/15/17 1624 Bedside Glucose 52 mg/dl *L 09/15/17 1656 Bedside Glucose 84 mg/dl 09/15/17 1722 Bedside Glucose 267 mg/dl H 09/15/172014 Bedside Glucose 297 mg/dl H 09/16/17 0158 Bedside Glucose 407 mg/dl *H 09/16/17 0700 Bedside Glucose 384 mg/dl *H 09/16/17 1133 Bedside Glucose 349 mg/dl H 09/16/17 1135 Bedside Glucose 118 mg/dl H 09/16/17 1628 Bedside Glucose 39 mg/dl *L 09/16/17 2052 Bedside Glucose 57 mg/dl *L 09/16/17 2119 Bedside Glucose 211 mg/dl H 09/16/17 2145 Bedside Glucose 112 mg/dl H 09/17/17 0005 Bedside Glucose 53 mg/dl *L 09/17/17 0356 Bedside Glucose 69 mg/dl *L 09/17/17 0421 Bedside Glucose 226 mg/dl H 09/17/17 0648 Bedside Glucose 95 mg/dl H 09/17/17 1612 Bedside Glucose 180 mg/dl H 09/17/172013 Bedside Glucose 105 mg/dl H 09/18/17 0207 Bedside Glucose 104 mg/dl H 09/18/17 0644 ASSESSMENT: * 47yo T1DM female, outpatient control is sub-adequate per recent A1c but A1c may not be totally reliable secondary to CKD/anemia. Pt with extremely brittle T1DM; also complicated by gastroparesis. * BSGs have been poorly controlled since admission despite frequent monitoring and insulin order adjustments by pharmacy. * RECURRENT HYPOGLYCEMIA: Most often prior to dinner secondary to overcorrection of BSG and insulin stacking from gastroparesis. AM fasting BSG is elevated --> then corrected/CHO covered, but pre-lunch BSG remains elevated d /t gastroparesis. This leads to additional correctional insulin at lunch time ( correcting an artificially elevated BSG) which causes hypo at dinner. Patient with "lower" BS at dinner (BSG = 92), therefore evening dose of Lantus was decreased from 10 units to 9 units. Minor changes in regimen (1-2 units) can lead to hypo/hyperglycemia d/t her brittle diabetes. * RECURRENT HYPERGLYCEMIA: Most often AM fasting. Lantus likely not lasting 24hrs in patient, therefore, Pharmacy split Lantus dosing BID. Basal needs are likely somewhere between 16-19 units/day. Pt with severe hyperglycemia with 15 units of basal and hypoglycemia with 20 units of basal insulin. Patient is currently receiving 17 units which yielded a goal fasting BSG of 104 mg/dl this morning. * Estimated total daily dose of SQ insulin is ~35-40 units/day. Due to brittle diabetes and wide BSG swings, goal is to maintain BSG in 100-250 mg/dl range. PLAN FOR INPATIENT GLYCEMIC CONTROL: Prevent HYPOGLYCEMIA and severe hyperglycemia. Maintain BSGs in 100-250 mg/dl range. * Basal insulin: no change today * Lantus 8 units SQ AM + 9 units SQ HS * Bolus insulin: * Regular insulin (for gastroparesis) per scale ACHS or Q6hrs while NPO * Goal Range: Low 110 mg/dL - High 160 mg/dL * Parameters for breakfast: Correction Factor: 70 mg/dL/unit Nutritional / Prandial insulin per carb ratio of 1 unit per 10 grams CHO consumed * Parameters for lunch, dinner, and HS: Correction Factor: 90 mg/dL/unit Nutritional / Prandial insulin per carb ratio of 1 unit per 15 grams CHO consumed Thank you. Recommendations for Discharge: If patient is to continue with SQ basal bolus insulin injections, recommend the following: * BASAL INSULIN: * Lantus 8 units SQ in the morning + Lantus 9 units SQ at bedtime * BOLUS INSULIN: * use REGULAR insulin (not NovoLog/Humalog) as Regular insulin is preferred with gastroparesis. * To simplify regimen, recommend the following parameters to be used ACHS: * Goal range 110 - 150 mg/dl * CF = 90 mg/dl/unit * insulin:carb ratio = 15mg/dl/unit
--- NOTE | 2017-09-18 10:03 | Nephrology Progress Note ---
Nephrology Progress Note Date of Service: Sep 18, 2017. Subjective 47 yo female who presented with marielle on ckd stage 4 and brittle diabetes. pt feels comfortable. hx of recent stroke and still with balance problems and mild dysarthria Objective Date Time Temp Pulse Resp B/P (MAP) Pulse Ox O2 Delivery O2 Flow Rate FiO2 09/18/17 07:52 36.9 63 16 158/74 (102) 96 Room Air 09/18/17 04:10 36.8 62 16 148/81 (103) 97 Room Air 09/18/17 04:00 Room Air 09/17/17 23:59 Room Air 09/17/17 23:00 36.5 65 16 149/68 (95) 98 Room Air 09/17/17 20:00 97 Room Air 09/17/17 19:42 36.5 62 16 150/77 (101) 97 Room Air 09/17/17 16:00 97 Room Air 09/17/17 15:34 36.3 62 16 138/69 (92) 99 Room Air 09/17/17 12:00 95 Room Air 09/17/17 11:31 36.4 61 18 139/74 (95) 97 Room Air Physical Exam: General-[id number] Eyes-no scleral icterus ENT-mmm Neck-supple Lungs-clear Heart-regular Abdomen-bs+ s/nt Extremities-no c/c, +1 to 2 edema Neuro-nonfocal Current Inpatient Medications Medications (Trade) Dose Ordered Sig/Latasha Route Start Time Stop Time Status Last Admin Dose Admin Heparin Sodium (Porcine) (Heparin Sq 5000 Unit/0.5ml) 5,000 unit Q8 SQ 09/09/17 22:00 10/09/17 21:59 09/18/17 05:52 5,000 UNIT Acetaminophen (Tylenol Tab) 650 mg Q4H PRN PO 09/09/17 18:00 10/09/17 17:59 09/16/17 21:36 650 MG Ondansetron HCl (Zofran Inj) 4 mg Q6H PRN IV 09/09/17 18:00 10/09/17 17:59 Miscellaneous Information (Consult Glycemic Management Pharmacy) 1 ea UD PRN N/A 09/09/17 18:10 10/09/17 18:09 Amlodipine Besylate (Norvasc Tab) 10 mg DAILY PO 09/10/17 09:00 10/10/17 08:59 09/18/17 09:01 10 MG Aspirin (Ecotrin Tab) 81 mg QAM PO 09/10/17 09:00 10/10/17 08:59 09/18/17 09:01 81 MG Atorvastatin Calcium (Lipitor Tab) 40 mg DAILY PO 09/10/17 09:00 10/10/17 08:59 09/18/17 09:02 40 MG Carvedilol (Coreg Tab) 25 mg BIDM PO 09/10/17 07:30 10/10/17 07:59 09/18/17 08:59 25 MG Divalproex Sodium (Depakote Delay Rel Tab) 500 mg Q12 PO 09/09/17 21:00 10/09/17 20:59 09/18/17 09:02 500 MG Docusate Sodium (coLACE CAP) 100 mg BID PRN PO 09/09/17 18:15 10/09/17 18:14 Multivitamins/ Minerals (Multivitamin W/ Minerals Tab) 1 tab DAILY PO 09/10/17 09:00 10/10/17 08:59 09/18/17 09:00 1 TAB Nortriptyline HCl (Pamelor Cap) 75 mg HS PO 09/09/17 21:00 10/09/17 20:59 09/17/17 21:37 75 MG Pantoprazole Sodium (Protonix Tab) 40 mg DAILY PO 09/10/17 09:00 10/10/17 08:59 09/18/17 09:01 40 MG Senna/Docusate Sodium (Senokot S Tab) 1 tab DAILY PO 09/10/17 09:00 10/10/17 08:59 09/18/17 09:02 1 TAB Sucralfate (Carafate Tab) 1 gm DAILY PO 09/10/17 09:00 10/10/17 08:59 09/18/17 09:02 1 GM Cholecalciferol (Vitamin D Tab) 2,000 inter.unit DAILY PO 09/10/17 09:00 10/10/17 08:59 09/18/17 09:02 2,000 INTER.UNIT Ferrous Sulfate (Feosol Tab) 325 mg TIDM PO 09/10/17 07:30 10/10/17 07:59 09/18/17 08:59 325 MG Miscellaneous Information (Order Awaiting Action) 1 ea QS N/A 09/10/17 00:00 10/10/17 00:00 Polyethylene (Miralax Powder Packet) 17 gm DAILY PRN PO 09/09/17 18:15 10/09/17 18:14 Oxycodone/ Acetaminophen (Percocet 5-325mg Tab) 1 tab Q6H PRN PO 09/09/17 22:45 09/23/17 22:44 09/18/17 08:59 1 TAB Lidocaine (Lidoderm Patch 5%) 1 patch QAM TD 09/12/17 09:00 10/12/17 08:59 09/18/17 09:03 1 PATCH Miscellaneous (Remove Lidoderm Patch) 1 ea DAILY@21 N/A 09/11/17 21:00 10/11/17 20:59 09/17/17 21:00 1 EA Cyclobenzaprine HCl (Flexeril Tab) 5 mg BID PRN PO 09/11/17 17:45 10/11/17 17:44 09/18/17 00:12 5 MG Doxycycline Hyclate (Vibramycin Cap) 100 mg BID PO 09/12/17 21:00 09/18/17 21:01 09/18/17 09:01 100 MG Glucose (Glucose 40% Gel) 15-30 GRAMS 15 GRAMS... UD PRN PO 09/13/17 09:30 10/13/17 09:29 09/17/17 11:27 15 GM Glucose (Glucose Chew Tab) 4-8 Tablets 4 Tabl... UD PRN PO 09/13/17 09:30 10/13/17 09:29 09/16/17 20:59 8 TABS Dextrose (Dextrose 50% 50ML Syringe) 25-50ML OF 50% DW IV FOR... UD PRN IV 09/13/17 09:30 10/13/17 09:29 09/13/17 16:42 50 ML Glucagon (Glucagon Inj) 1 mg UD PRN SQ 09/13/17 09:30 10/13/17 09:29 Clonidine HCl (Catapres Tab) 0.2 mg BID PO 09/15/17 09:00 10/14/17 08:59 09/18/17 09:03 0.2 MG Hydralazine HCl (Apresoline Tab) 75 mg QID PO 09/16/17 09:00 10/09/17 20:59 09/18/17 09:00 75 MG Levalbuterol (Xopenex 0.63 Mg/ 3 Ml Neb) 0.63 mg Q4R PRN INH 09/16/17 10:00 10/16/17 09:59 Insulin Glargine (Lantus Solostar Pen) 8 units DAILY@0900 SQ 09/17/17 09:00 10/16/17 08:59 09/18/17 09:09 8 UNITS Insulin Human Regular (novoLIN-R) USE REGULAR INSULIN FOR M... TID@1130,1645,2100 [place] 09/17/17 11:30 10/17/17 11:29 Future hold 09/17/17 21:27 2 UNITS Insulin Human Regular (novoLIN-R) USE REGULAR INSULIN FOR M... QDB SC 09/18/17 07:30 10/18/17 07:29 09/18/17 09:09 3 UNITS Insulin Glargine (Lantus Solostar Pen) 9 units DAILY@2100 SQ 09/17/17 21:00 10/17/17 20:59 09/17/17 21:23 9 UNITS Last 24 Hours Test 09/17/17 11:17 09/17/17 11:36 09/17/17 11:54 09/17/17 16:12 Bedside Glucose 50 mg/dl 48 mg/dl 70 mg/dl 95 mg/dl Test 09/17/17 20:14 09/18/17 02:07 09/18/17 05:34 09/18/17 06:44 Bedside Glucose 180 mg/dl 105 mg/dl 104 mg/dl White Blood Count 4.05 K/uL Red Blood Count 2.70 M/uL Hemoglobin 7.8 g/dL Hematocrit 23.7 % Mean Corpuscular Volume 87.8 fL Mean Corpuscular Hemoglobin 28.9 pg Mean Corpuscular Hemoglobin Concent 32.9 g/dl RDW Standard Deviation 44.7 fL RDW Coefficient of Variation 13.8 % Platelet Count 228 K/uL Mean Platelet Volume 10.2 fL Sodium Level 137 mmol/L Potassium Level 4.6 mmol/L Chloride Level 111 mmol/L Carbon Dioxide Level 22 mmol/L Anion Gap 4.0 mmol/L Blood Urea Nitrogen 56 mg/dl Creatinine 3.96 mg/dl Est Creatinine Clear Calc Drug Dose 15.8 ml/min Estimated GFR () 14.5 Estimated GFR (Non- 12.5 BUN/Creatinine Ratio 14.2 Random Glucose 96 mg/dl Calcium Level 7.8 mg/dl Assessment & Plan CKD stage 4-creatinine baseline was 3.5 and appears to have progressed and now around 4. not uremic. has a maturing fistula. would follow up with Dr. Monroe. Anemia of renal failure-hg below 8 and will need procrit initiated as outpt with Dr. Monroe. HTN: currently on norvasc 10mg a day, coreg 25 bid, hydralazine 75 qid, clonidine 0.2 bid. pt does have progressively worsening edema since admission and would like to start lasix 20mg a day for now to help control the swelling.
[2017-09-18] MEDS: FUROSEMIDE 20 MG TAB PO SCH (11:55)
[2017-09-18] MEDS: NORTRIPTYLINE HCL 25 MG CAP PO SCH (20:00)
[2017-09-18] MEDS: ACETAMINOPHEN 325 MG TAB PO PRN (20:00)
[2017-09-19] VITALS (9 sets, daily range): BP systolic 131–163; BP diastolic 67–75; PULSE 60–68; TEMP 36.4–36.7; O2SAT 95–98
[2017-09-19] MEDS: HEPARIN SOD 5000 UNIT/0.5 ML CARP SQ SCH ×3 (06:12→21:23)
[2017-09-19 07:36] LABS: CREATININE 3.97 mg/dl (0.60-1.20); POTASSIUM 5.1 mmol/L (3.5-5.1)
[2017-09-19] MEDS: BREO ELLIPTA: ORDER AWAITING ACTION SCH ×3 (07:58→23:12)
[2017-09-19] MEDS: ATORVASTATIN 40 MG TAB PO SCH (07:59)
[2017-09-19] MEDS: SUCRALFATE 1 GM TAB PO SCH (07:59)
[2017-09-19] MEDS: FUROSEMIDE 20 MG TAB PO SCH (08:00)
[2017-09-19] MEDS: DOCUSATE SODIUM/SENNA 50/8.6MG TAB PO SCH (08:00)
[2017-09-19] MEDS: CARVEDILOL 25 MG TAB PO SCH ×2 (08:00→17:12)
[2017-09-19] MEDS: CYCLOBENZAPRINE HCL 5 MG TAB PO PRN (08:00)
[2017-09-19] MEDS: FERROUS SULFATE 325 MG TAB PO SCH ×3 (08:01→17:13)
[2017-09-19] MEDS: CHOLECALCIFEROL 1000 INTER.UNIT TAB PO SCH (08:01)
[2017-09-19] MEDS: CLONIDINE HCL 0.1 MG TAB PO SCH ×2 (08:01→21:18)
[2017-09-19] MEDS: CEROVITE ADV FORMULA TAB PO SCH (08:02)
[2017-09-19] MEDS: DIVALPROEX SODIUM 500 MG DELAY RELEASE TAB PO SCH ×2 (08:02→21:17)
[2017-09-19] MEDS: AMLODIPINE BESYLATE 5 MG TAB PO SCH (08:02)
[2017-09-19] MEDS: ASPIRIN 81 MG ECTAB PO SCH (08:02)
[2017-09-19] MEDS: PANTOprazole SOD 40 MG TAB PO SCH (08:02)
[2017-09-19] MEDS: LIDODERM (LIDOCAINE) PATCH 5% TD SCH (08:03)
[2017-09-19] MEDS: INSULIN HUMAN REGULAR SC SCH ×4 (08:07→21:00)
[2017-09-19] MEDS: INSULIN GLARGINE SOLOSTAR 100 UNITS/ML 3 ML PEN SQ SCH ×2 (08:08→21:23)
--- NOTE | 2017-09-19 17:16 | Progress Note ---
Subjective Date of Service: Sep 19, 2017. Subjective Pt evaluation today including: conversation w/ patient, physical exam, lab review, review of studies, review of inpatient medication list Saw/examined the patient in room 219 She's doing well, no problems/issues to note today Problem List Medical Problems: (1) Acute chest pain Status: Acute (2) Anemia Status: Acute (3) CKD (chronic kidney disease) Status: Acute (4) Hyperglycemia Status: Acute (5) Hyperkalemia Status: Acute Review of Systems Respiratory: No cough, No sputum, No shortness of breath Cardiac: No chest pain, No palpitations Abdomen: No pain, No nausea, No vomiting, No diarrhea Musculoskeletal: + see HPI (RLE), + joint pain Medications Current Inpatient Medications Medications (Trade) Dose Ordered Sig/Latasha Route Start Time Stop Time Status Last Admin Dose Admin Heparin Sodium (Porcine) (Heparin Sq 5000 Unit/0.5ml) 5,000 unit Q8 SQ 09/09/17 22:00 10/09/17 21:59 09/19/17 14:31 5,000 UNIT Acetaminophen (Tylenol Tab) 650 mg Q4H PRN PO 09/09/17 18:00 10/09/17 17:59 09/18/17 20:00 650 MG Ondansetron HCl (Zofran Inj) 4 mg Q6H PRN IV 09/09/17 18:00 10/09/17 17:59 Miscellaneous Information (Consult Glycemic Management Pharmacy) 1 ea UD PRN N/A 09/09/17 18:10 10/09/17 18:09 Amlodipine Besylate (Norvasc Tab) 10 mg DAILY PO 09/10/17 09:00 10/10/17 08:59 09/19/17 08:02 10 MG Aspirin (Ecotrin Tab) 81 mg QAM PO 09/10/17 09:00 10/10/17 08:59 09/19/17 08:02 81 MG Atorvastatin Calcium (Lipitor Tab) 40 mg DAILY PO 09/10/17 09:00 10/10/17 08:59 09/19/17 07:59 40 MG Carvedilol (Coreg Tab) 25 mg BIDM PO 09/10/17 07:30 10/10/17 07:59 09/19/17 08:00 25 MG Divalproex Sodium (Depakote Delay Rel Tab) 500 mg Q12 PO 09/09/17 21:00 10/09/17 20:59 09/19/17 08:02 500 MG Docusate Sodium (coLACE CAP) 100 mg BID PRN PO 09/09/17 18:15 10/09/17 18:14 Multivitamins/ Minerals (Multivitamin W/ Minerals Tab) 1 tab DAILY PO 09/10/17 09:00 10/10/17 08:59 09/19/17 08:02 1 TAB Nortriptyline HCl (Pamelor Cap) 75 mg HS PO 09/09/17 21:00 10/09/17 20:59 09/18/17 20:00 75 MG Pantoprazole Sodium (Protonix Tab) 40 mg DAILY PO 09/10/17 09:00 10/10/17 08:59 09/19/17 08:02 40 MG Senna/Docusate Sodium (Senokot S Tab) 1 tab DAILY PO 09/10/17 09:00 10/10/17 08:59 09/19/17 08:00 1 TAB Sucralfate (Carafate Tab) 1 gm DAILY PO 09/10/17 09:00 10/10/17 08:59 09/19/17 07:59 1 GM Cholecalciferol (Vitamin D Tab) 2,000 inter.unit DAILY PO 09/10/17 09:00 10/10/17 08:59 09/19/17 08:01 2,000 INTER.UNIT Ferrous Sulfate (Feosol Tab) 325 mg TIDM PO 09/10/17 07:30 10/10/17 07:59 09/19/17 12:47 325 MG Miscellaneous Information (Order Awaiting Action) 1 ea QS N/A 09/10/17 00:00 10/10/17 00:00 Polyethylene (Miralax Powder Packet) 17 gm DAILY PRN PO 09/09/17 18:15 10/09/17 18:14 Oxycodone/ Acetaminophen (Percocet 5-325mg Tab) 1 tab Q6H PRN PO 09/09/17 22:45 09/23/17 22:44 09/18/17 17:16 1 TAB Lidocaine (Lidoderm Patch 5%) 1 patch QAM TD 09/12/17 09:00 10/12/17 08:59 09/19/17 08:03 1 PATCH Miscellaneous (Remove Lidoderm Patch) 1 ea DAILY@21 N/A 09/11/17 21:00 10/11/17 20:59 09/18/17 20:01 1 EA Cyclobenzaprine HCl (Flexeril Tab) 5 mg BID PRN PO 09/11/17 17:45 10/11/17 17:44 09/19/17 08:00 5 MG Glucose (Glucose 40% Gel) 15-30 GRAMS 15 GRAMS... UD PRN PO 09/13/17 09:30 10/13/17 09:29 09/17/17 11:27 15 GM Glucose (Glucose Chew Tab) 4-8 Tablets 4 Tabl... UD PRN PO 09/13/17 09:30 10/13/17 09:29 09/16/17 20:59 8 TABS Dextrose (Dextrose 50% 50ML Syringe) 25-50ML OF 50% DW IV FOR... UD PRN IV 09/13/17 09:30 10/13/17 09:29 09/13/17 16:42 50 ML Glucagon (Glucagon Inj) 1 mg UD PRN SQ 09/13/17 09:30 10/13/17 09:29 Clonidine HCl (Catapres Tab) 0.2 mg BID PO 09/15/17 09:00 10/14/17 08:59 09/19/17 08:01 0.2 MG Hydralazine HCl (Apresoline Tab) 75 mg QID PO 09/16/17 09:00 10/09/17 20:59 09/19/17 15:23 75 MG Levalbuterol (Xopenex 0.63 Mg/ 3 Ml Neb) 0.63 mg Q4R PRN INH 09/16/17 10:00 10/16/17 09:59 Insulin Glargine (Lantus Solostar Pen) 8 units DAILY@0900 SQ 09/17/17 09:00 10/16/17 08:59 09/19/17 08:08 8 UNITS Insulin Human Regular (novoLIN-R) USE REGULAR INSULIN FOR M... TID@1130,1645,2100 SC 09/17/17 11:30 10/17/17 11:29 Future hold 09/18/17 17:11 2 UNITS Insulin Human Regular (novoLIN-R) USE REGULAR INSULIN FOR M... QDB SC 09/18/17 07:30 10/18/17 07:29 09/19/17 08:07 3 UNITS Insulin Glargine (Lantus Solostar Pen) 9 units DAILY@2100 SQ 09/17/17 21:00 10/17/17 20:59 09/18/17 21:27 9 UNITS Furosemide (Lasix Tab) 20 mg QAM PO 09/18/17 11:00 10/18/17 10:59 09/19/17 08:00 20 MG Objective Vital Signs Date Time Temp Pulse Resp B/P (MAP) Pulse Ox O2 Delivery O2 Flow Rate FiO2 09/19/17 15:56 36.5 64 22 163/75 (104) 97 Room Air 09/19/17 15:47 97 Room Air 09/19/17 12:00 97 Room Air 09/19/17 11:50 36.7 64 16 153/67 (95) 95 Room Air 09/19/17 08:00 98 Room Air 09/19/17 07:31 36.7 68 16 163/69 (100) 98 Room Air 09/19/17 05:09 36.7 65 17 156/75 (102) 96 Room Air 09/19/17 04:15 Room Air 09/19/17 00:00 Room Air 09/18/17 23:50 36.5 66 16 151/73 (99) 96 Room Air 09/18/17 20:02 Room Air 09/18/17 19:23 36.5 61 16 152/70 (97) 97 Room Air Physical Exam General Appearance: no apparent distress Respiratory/Chest: lungs clear, normal breath sounds, no respiratory distress, no accessory muscle use Cardiovascular: regular rate, rhythm, no edema, no murmur Neurologic/Psychiatric: alert, normal mood/affect, + motor weakness Laboratory Results Last 24 Hours Test 09/18/17 20:48 09/19/17 06:33 09/19/17 06:35 09/19/17 11:21 Bedside Glucose 80 mg/dl 152 mg/dl 148 mg/dl Sodium Level 140 mmol/L Potassium Level 5.1 mmol/L Chloride Level 110 mmol/L Carbon Dioxide Level 22 mmol/L Anion Gap 8.0 mmol/L Blood Urea Nitrogen 62 mg/dl Creatinine 3.97 mg/dl Est Creatinine Clear Calc Drug Dose 15.9 ml/min Estimated GFR () 14.5 Estimated GFR (Non- 12.5 BUN/Creatinine Ratio 15.7 Random Glucose 132 mg/dl Calcium Level 8.0 mg/dl Test 09/19/17 16:22 Bedside Glucose 155 mg/dl Assessment and Plan This is a 47 year old female with a past medical history of type 1 diabetes mellitus on an insulin pump prior to arrival, with diabetic complications including retinopathy, gastroparesis and nephropathy, CKD stage IV, anemia of chronic kidney disease, vitamin D deficiency, iron deficiency, HTN, HLD, bipolar disorder, hx. of seizures, CAD, chronic diastolic CHF - had a recent CVA and tPA administration; was sent to inpatient rehab and sent from there to [facility] due to malfunctioning insulin pump and hyperglycemia, dehydration and GEOVANI. Hyperglycemia in the setting of Brittle Diabetes and Malfunctioning Pump/Type 1 DM 09/19 - blood sugars have improved with the current regimen, which we can continue at [facility] - awaiting insurance auth - outpatient nephrology input regarding kidney function, Hgb 09/18 - BSGs much better controlled today - currently on Lantus 8 units in AM and 10 units in PM - now on a regular insulin sliding scale with adjusted CF and carb ratio as per pharmacy glycemic control consultation; appreciate input - will likely need these parameters as outpatient 09/17 - patient states she has been on an insulin pump for one month and has had multiple complications with it, including hypoglycemia, seizures, etc. - pump stopped functioning at [facility] rehab - presented with hyperglycemia - initially was on an insulin drip, now on basal/bolus insulin - still has hypo and hyperglycemic episodes - due to brittle diabetes/type 1 DM - this will be difficult to control - appreciate pharmacy glycemic control input - currently on 10 units of Lantus in the AM, 8 units in the PM with a sliding scale to cover breakfast and a separate one for the rest of the day - will speak with pharmacy regarding outpatient regimen prior to discharge - plan to d/c back to [facility] Acute Kidney Injury superimposed on CKD stage IV - creatinine has been fluctuating in the upper 3's and peaked at 4.3 - appreciate nephrology input - stopped all IV fluids at this time - her kidney function will worsen with uncontrolled diabetes and general decline - outpatient nephrology follow-up recommended Anemia of Chronic Disease - one unit pRBC transfusion - likely secondary to chronic kidney disease - will discuss outpatient Procrit injections Atypical Chest Pain - resolved Hx. of CAD - troponin negative x3 - echo shows a grade 2 diastolic dysfunction; normal LVEF, normal wall motion abnormality - continue aspirin, statin, b-wiley HTN - blood pressure improved with new medication regimen - will continue Amlodipine 10mg, Coreg 25mg BID, clonidine 0.2mg BID, Hydralazine 75mg TID - can titrate hydralazine or clonidine up if needed as outpatient Acute Bronchitis - continue doxycycline to complete the 7 day course (stop date 09/18) - continue nebs as needed - will stop Mucinex Recent CVA - continue PT/OT - will need inpatient rehab on discharge - continue aspirin, statin Hx. of Seizures - continue Depakote; monitor for hypoglycemic Hx. of Chronic Diastolic CHF - monitor for fluid overload - echo shows grade 2 diastolic dysfunction, currently seems euvolemic Hyperkalemia - improving - should improve with continued insulin tx. - outpatient electrolyte follow-up DVT ppx - subq heparin FULL CODE
[2017-09-19] MEDS: OXYCODONE/ACETAMINOPHEN 5-325 TAB PO PRN (19:59)
[2017-09-19] MEDS: NORTRIPTYLINE HCL 25 MG CAP PO SCH (21:17)
[2017-09-20 04:31] VITALS: BP 153/72; PULSE 64; TEMP 36.3; O2SAT 94
[2017-09-20] MEDS: HEPARIN SOD 5000 UNIT/0.5 ML CARP SQ SCH (05:56)
[2017-09-20] MEDS: OXYCODONE/ACETAMINOPHEN 5-325 TAB PO PRN (06:40)
[2017-09-20] MEDS: BREO ELLIPTA: ORDER AWAITING ACTION SCH (07:07)
[2017-09-20] MEDS: INSULIN HUMAN REGULAR SC SCH ×2 (07:30→11:43)
[2017-09-20 07:37] VITALS: BP 157/80; PULSE 67; TEMP 36.5; O2SAT 98
[2017-09-20 08:06] LABS: CREATININE 4.15 mg/dl (0.60-1.20)
[2017-09-20 08:07] LABS: CALCIUM 8.3 mg/dl (8.5-10.1); POTASSIUM 4.3 mmol/L (3.5-5.1)
[2017-09-20] MEDS: CHOLECALCIFEROL 1000 INTER.UNIT TAB PO SCH (08:42)
[2017-09-20] MEDS: SUCRALFATE 1 GM TAB PO SCH (08:42)
[2017-09-20] MEDS: CEROVITE ADV FORMULA TAB PO SCH (08:42)
[2017-09-20] MEDS: AMLODIPINE BESYLATE 5 MG TAB PO SCH (08:42)
[2017-09-20] MEDS: DOCUSATE SODIUM/SENNA 50/8.6MG TAB PO SCH (08:42)
[2017-09-20] MEDS: ATORVASTATIN 40 MG TAB PO SCH (08:43)
[2017-09-20] MEDS: CLONIDINE HCL 0.1 MG TAB PO SCH (08:43)
[2017-09-20] MEDS: ASPIRIN 81 MG ECTAB PO SCH (08:43)
[2017-09-20] MEDS: FERROUS SULFATE 325 MG TAB PO SCH ×2 (08:43→11:44)
[2017-09-20] MEDS: PANTOprazole SOD 40 MG TAB PO SCH (08:43)
[2017-09-20] MEDS: DIVALPROEX SODIUM 500 MG DELAY RELEASE TAB PO SCH (08:44)
[2017-09-20] MEDS: CARVEDILOL 25 MG TAB PO SCH (08:44)
[2017-09-20] MEDS: FUROSEMIDE 20 MG TAB PO SCH (08:44)
[2017-09-20] MEDS: LIDODERM (LIDOCAINE) PATCH 5% TD SCH (08:45)
[2017-09-20] MEDS ORDERED: INSULIN GLARGINE SOLOSTAR 100 UNITS/ML 3 ML PEN SQ SCH ×2 (09:00→21:00)
--- NOTE | 2017-09-20 09:04 | Nephrology Progress Note ---
Nephrology Progress Note Date of Service: Sep 20, 2017. Subjective 47 yo female who had recent stroke with right leg and right arm weakness and some dysarthria. today pt is speaking much more clearly. continues to have issues with blood sugars. bp is better controlled. Objective Date Time Temp Pulse Resp B/P (MAP) Pulse Ox O2 Delivery O2 Flow Rate FiO2 09/20/17 08:00 Room Air 09/20/17 07:37 36.5 67 20 157/80 (105) 98 Room Air 09/20/17 04:31 36.3 64 19 153/72 (99) 94 Room Air 09/20/17 04:03 Room Air 09/20/17 00:00 Room Air 09/19/17 23:48 36.4 60 17 131/72 (91) 97 Room Air 09/19/17 20:00 Room Air 09/19/17 19:30 36.5 63 20 137/72 (93) 98 Room Air 09/19/17 15:56 36.5 64 22 163/75 (104) 97 Room Air 09/19/17 15:47 97 Room Air 09/19/17 12:00 97 Room Air 09/19/17 11:50 36.7 64 16 153/67 (95) 95 Room Air Physical Exam: General-aaox3 Eyes-no scleral icterus ENT-mmm Neck-supple Lungs-cta Heart-rrr Abdomen-bs+ s/nt Extremities-no c/c, +1 edema Neuro-right sided weakness Current Inpatient Medications Medications (Trade) Dose Ordered Sig/Latasha Route Start Time Stop Time Status Last Admin Dose Admin Heparin Sodium (Porcine) (Heparin Sq 5000 Unit/0.5ml) 5,000 unit Q8 SQ 09/09/17 22:00 10/09/17 21:59 09/20/17 05:56 5,000 UNIT Acetaminophen (Tylenol Tab) 650 mg Q4H PRN PO 09/09/17 18:00 10/09/17 17:59 09/18/17 20:00 650 MG Ondansetron HCl (Zofran Inj) 4 mg Q6H PRN IV 09/09/17 18:00 10/09/17 17:59 Miscellaneous Information (Consult Glycemic Management Pharmacy) 1 ea UD PRN N/A 09/09/17 18:10 10/09/17 18:09 Amlodipine Besylate (Norvasc Tab) 10 mg DAILY PO 09/10/17 09:00 10/10/17 08:59 09/20/17 08:42 10 MG Aspirin (Ecotrin Tab) 81 mg QAM PO 09/10/17 09:00 10/10/17 08:59 09/20/17 08:43 81 MG Atorvastatin Calcium (Lipitor Tab) 40 mg DAILY PO 09/10/17 09:00 10/10/17 08:59 09/20/17 08:43 40 MG Carvedilol (Coreg Tab) 25 mg BIDM PO 09/10/17 07:30 10/10/17 07:59 09/20/17 08:44 25 MG Divalproex Sodium (Depakote Delay Rel Tab) 500 mg Q12 PO 09/09/17 21:00 10/09/17 20:59 09/20/17 08:44 500 MG Docusate Sodium (coLACE CAP) 100 mg BID PRN PO 09/09/17 18:15 10/09/17 18:14 09/19/17 19:59 100 MG Multivitamins/ Minerals (Multivitamin W/ Minerals Tab) 1 tab DAILY PO 09/10/17 09:00 10/10/17 08:59 09/20/17 08:42 1 TAB Nortriptyline HCl (Pamelor Cap) 75 mg HS PO 09/09/17 21:00 10/09/17 20:59 09/19/17 21:17 75 MG Pantoprazole Sodium (Protonix Tab) 40 mg DAILY PO 09/10/17 09:00 10/10/17 08:59 09/20/17 08:43 40 MG Senna/Docusate Sodium (Senokot S Tab) 1 tab DAILY PO 09/10/17 09:00 10/10/17 08:59 09/20/17 08:42 1 TAB Sucralfate (Carafate Tab) 1 gm DAILY PO 09/10/17 09:00 10/10/17 08:59 09/20/17 08:42 1 GM Cholecalciferol (Vitamin D Tab) 2,000 inter.unit DAILY PO 09/10/17 09:00 10/10/17 08:59 09/20/17 08:42 2,000 INTER.UNIT Ferrous Sulfate (Feosol Tab) 325 mg TIDM PO 09/10/17 07:30 10/10/17 07:59 09/20/17 08:43 325 MG Miscellaneous Information (Order Awaiting Action) 1 ea QS N/A 09/10/17 00:00 10/10/17 00:00 Polyethylene (Miralax Powder Packet) 17 gm DAILY PRN PO 09/09/17 18:15 10/09/17 18:14 09/19/17 19:59 17 GM Oxycodone/ Acetaminophen (Percocet 5-325mg Tab) 1 tab Q6H PRN PO 09/09/17 22:45 09/23/17 22:44 09/20/17 06:40 1 TAB Lidocaine (Lidoderm Patch 5%) 1 patch QAM TD 09/12/17 09:00 10/12/17 08:59 09/20/17 08:45 1 PATCH Miscellaneous (Remove Lidoderm Patch) 1 ea DAILY@21 N/A 09/11/17 21:00 10/11/17 20:59 09/19/17 21:24 1 EA Cyclobenzaprine HCl (Flexeril Tab) 5 mg BID PRN PO 09/11/17 17:45 10/11/17 17:44 09/19/17 08:00 5 MG Glucose (Glucose 40% Gel) 15-30 GRAMS 15 GRAMS... UD PRN PO 09/13/17 09:30 10/13/17 09:29 09/17/17 11:27 15 GM Glucose (Glucose Chew Tab) 4-8 Tablets 4 Tabl... UD PRN PO 09/13/17 09:30 10/13/17 09:29 09/16/17 20:59 8 TABS Dextrose (Dextrose 50% 50ML Syringe) 25-50ML OF 50% DW IV FOR... UD PRN IV 09/13/17 09:30 10/13/17 09:29 09/13/17 16:42 50 ML Glucagon (Glucagon Inj) 1 mg UD PRN SQ 09/13/17 09:30 10/13/17 09:29 Clonidine HCl (Catapres Tab) 0.2 mg BID PO 09/15/17 09:00 10/14/17 08:59 09/20/17 08:43 0.2 MG Hydralazine HCl (Apresoline Tab) 75 mg QID PO 09/16/17 09:00 10/09/17 20:59 09/20/17 08:44 75 MG Levalbuterol (Xopenex 0.63 Mg/ 3 Ml Neb) 0.63 mg Q4R PRN INH 09/16/17 10:00 10/16/17 09:59 Insulin Human Regular (novoLIN-R) USE REGULAR INSULIN FOR M... TID@1130,1645,2100 SC 09/17/17 11:30 10/17/17 11:29 Future hold 09/19/17 17:19 3 UNITS Insulin Human Regular (novoLIN-R) USE REGULAR INSULIN FOR M... QDB SC 09/18/17 07:30 10/18/17 07:29 09/19/17 08:07 3 UNITS Furosemide (Lasix Tab) 20 mg QAM PO 09/18/17 11:00 10/18/17 10:59 09/20/17 08:44 20 MG Insulin Glargine (Lantus Solostar Pen) 7 units 09/20/17 SQ 09/20/17 09:00 09/20/17 09:01 09/20/17 08:46 7 UNITS Insulin Glargine (Lantus Solostar Pen) 8 units BID SQ 09/20/17 21:00 10/20/17 20:59 Last 24 Hours Test 09/19/17 11:21 09/19/17 16:22 09/19/17 20:18 09/20/17 06:55 Bedside Glucose 148 mg/dl 155 mg/dl 143 mg/dl Sodium Level 139 mmol/L Potassium Level 4.3 mmol/L Chloride Level 109 mmol/L Carbon Dioxide Level 23 mmol/L Anion Gap 8.0 mmol/L Blood Urea Nitrogen 60 mg/dl Creatinine 4.15 mg/dl Est Creatinine Clear Calc Drug Dose 15.2 ml/min Estimated GFR () 13.7 Estimated GFR (Non- 11.8 BUN/Creatinine Ratio 14.3 Random Glucose 44 mg/dl Calcium Level 8.3 mg/dl Test 09/20/17 07:59 09/20/17 08:14 09/20/17 08:22 Bedside Glucose 61 mg/dl 79 mg/dl 95 mg/dl Assessment & Plan CKD stage 4-creatinine now in the 4s and slowly worsening. has a maturing fistula-not ready to be used yet. needs follow up with Dr. Monroe. no uremic symptoms at this time. Anemia of renal failure-hg below 8 and will need procrit initiated as outpt with Dr. Monroe. HTN: did recently start lasix and feel pt needs a diuretic to help with bp and edema. ok with creatinine trending up since close to needing dialysis. ok from renal perspective to go to [facility] and would try to obtain an appointment with Dr. Monroe in [place].
--- NOTE | 2017-09-20 09:35 | Progress Note ---
Subjective Date of Service: Sep 20, 2017. Subjective Pt evaluation today including: conversation w/ patient, physical exam, lab review, review of studies, review of inpatient medication list Saw/examined the patient in room 219 She's doing well, ambulating, using her R arm and leg more than before Speech is improving; overall, feels fine Problem List Medical Problems: (1) Acute chest pain Status: Acute (2) Anemia Status: Acute (3) CKD (chronic kidney disease) Status: Acute (4) Hyperglycemia Status: Acute (5) Hyperkalemia Status: Acute Review of Systems Constitutional: No fever, No chills Respiratory: No shortness of breath Cardiac: No chest pain Musculoskeletal: + joint pain Neurologic: + weakness Medications Current Inpatient Medications Medications (Trade) Dose Ordered Sig/Latasha Route Start Time Stop Time Status Last Admin Dose Admin Heparin Sodium (Porcine) (Heparin Sq 5000 Unit/0.5ml) 5,000 unit Q8 SQ 09/09/17 22:00 10/09/17 21:59 09/20/17 05:56 5,000 UNIT Acetaminophen (Tylenol Tab) 650 mg Q4H PRN PO 09/09/17 18:00 10/09/17 17:59 09/18/17 20:00 650 MG Ondansetron HCl (Zofran Inj) 4 mg Q6H PRN IV 09/09/17 18:00 10/09/17 17:59 Miscellaneous Information (Consult Glycemic Management Pharmacy) 1 ea UD PRN N/A 09/09/17 18:10 10/09/17 18:09 Amlodipine Besylate (Norvasc Tab) 10 mg DAILY PO 09/10/17 09:00 10/10/17 08:59 09/20/17 08:42 10 MG Aspirin (Ecotrin Tab) 81 mg QAM PO 09/10/17 09:00 10/10/17 08:59 09/20/17 08:43 81 MG Atorvastatin Calcium (Lipitor Tab) 40 mg DAILY PO 09/10/17 09:00 10/10/17 08:59 09/20/17 08:43 40 MG Carvedilol (Coreg Tab) 25 mg BIDM PO 09/10/17 07:30 10/10/17 07:59 09/20/17 08:44 25 MG Divalproex Sodium (Depakote Delay Rel Tab) 500 mg Q12 PO 09/09/17 21:00 10/09/17 20:59 09/20/17 08:44 500 MG Docusate Sodium (coLACE CAP) 100 mg BID PRN PO 09/09/17 18:15 10/09/17 18:14 09/19/17 19:59 100 MG Multivitamins/ Minerals (Multivitamin W/ Minerals Tab) 1 tab DAILY PO 09/10/17 09:00 10/10/17 08:59 09/20/17 08:42 1 TAB Nortriptyline HCl (Pamelor Cap) 75 mg HS PO 09/09/17 21:00 10/09/17 20:59 09/19/17 21:17 75 MG Pantoprazole Sodium (Protonix Tab) 40 mg DAILY PO 09/10/17 09:00 10/10/17 08:59 09/20/17 08:43 40 MG Senna/Docusate Sodium (Senokot S Tab) 1 tab DAILY PO 09/10/17 09:00 10/10/17 08:59 09/20/17 08:42 1 TAB Sucralfate (Carafate Tab) 1 gm DAILY PO 09/10/17 09:00 10/10/17 08:59 09/20/17 08:42 1 GM Cholecalciferol (Vitamin D Tab) 2,000 inter.unit DAILY PO 09/10/17 09:00 10/10/17 08:59 09/20/17 08:42 2,000 INTER.UNIT Ferrous Sulfate (Feosol Tab) 325 mg TIDM PO 09/10/17 07:30 10/10/17 07:59 09/20/17 08:43 325 MG Miscellaneous Information (Order Awaiting Action) 1 ea QS N/A 09/10/17 00:00 10/10/17 00:00 Polyethylene (Miralax Powder Packet) 17 gm DAILY PRN PO 09/09/17 18:15 10/09/17 18:14 09/19/17 19:59 17 GM Oxycodone/ Acetaminophen (Percocet 5-325mg Tab) 1 tab Q6H PRN PO 09/09/17 22:45 09/23/17 22:44 09/20/17 06:40 1 TAB Lidocaine (Lidoderm Patch 5%) 1 patch QAM TD 09/12/17 09:00 10/12/17 08:59 09/20/17 08:45 1 PATCH Miscellaneous (Remove Lidoderm Patch) 1 ea DAILY@21 N/A 09/11/17 21:00 10/11/17 20:59 09/19/17 21:24 1 EA Cyclobenzaprine HCl (Flexeril Tab) 5 mg BID PRN PO 09/11/17 17:45 10/11/17 17:44 09/19/17 08:00 5 MG Glucose (Glucose 40% Gel) 15-30 GRAMS 15 GRAMS... UD PRN PO 09/13/17 09:30 10/13/17 09:29 09/17/17 11:27 15 GM Glucose (Glucose Chew Tab) 4-8 Tablets 4 Tabl... UD PRN PO 09/13/17 09:30 10/13/17 09:29 09/16/17 20:59 8 TABS Dextrose (Dextrose 50% 50ML Syringe) 25-50ML OF 50% DW IV FOR... UD PRN IV 09/13/17 09:30 10/13/17 09:29 09/13/17 16:42 50 ML Glucagon (Glucagon Inj) 1 mg UD PRN SQ 09/13/17 09:30 10/13/17 09:29 Clonidine HCl (Catapres Tab) 0.2 mg BID PO 09/15/17 09:00 10/14/17 08:59 09/20/17 08:43 0.2 MG Hydralazine HCl (Apresoline Tab) 75 mg QID PO 09/16/17 09:00 10/09/17 20:59 09/20/17 08:44 75 MG Levalbuterol (Xopenex 0.63 Mg/ 3 Ml Neb) 0.63 mg Q4R PRN INH 09/16/17 10:00 10/16/17 09:59 Insulin Human Regular (novoLIN-R) USE REGULAR INSULIN FOR M... TID@1130,1645,2100 CT 09/17/17 11:30 10/17/17 11:29 Future hold 09/19/17 17:19 3 UNITS Insulin Human Regular (novoLIN-R) USE REGULAR INSULIN FOR M... QDB SC 09/18/17 07:30 10/18/17 07:29 09/19/17 08:07 3 UNITS Furosemide (Lasix Tab) 20 mg QAM PO 09/18/17 11:00 10/18/17 10:59 09/20/17 08:44 20 MG Insulin Glargine (Lantus Solostar Pen) 8 units BID SQ 09/20/17 21:00 10/20/17 20:59 Objective Vital Signs Date Time Temp Pulse Resp B/P (MAP) Pulse Ox O2 Delivery O2 Flow Rate FiO2 09/20/17 08:00 Room Air 09/20/17 07:37 36.5 67 20 157/80 (105) 98 Room Air 09/20/17 04:31 36.3 64 19 153/72 (99) 94 Room Air 09/20/17 04:03 Room Air 09/20/17 00:00 Room Air 09/19/17 23:48 36.4 60 17 131/72 (91) 97 Room Air 09/19/17 20:00 Room Air 09/19/17 19:30 36.5 63 20 137/72 (93) 98 Room Air 09/19/17 15:56 36.5 64 22 163/75 (104) 97 Room Air 09/19/17 15:47 97 Room Air 09/19/17 12:00 97 Room Air 09/19/17 11:50 36.7 64 16 153/67 (95) 95 Room Air Physical Exam General Appearance: no apparent distress Respiratory/Chest: chest non-tender, lungs clear, normal breath sounds, no respiratory distress, no accessory muscle use Cardiovascular: regular rate, rhythm, no murmur Extremities: + swelling (+1-2 pitting edema b/l LE), + pertinent finding Neurologic/Psychiatric: alert, normal mood/affect, + motor weakness (R sided) Laboratory Results Last 24 Hours Test 09/19/17 11:21 09/19/17 16:22 09/19/17 20:18 09/20/17 06:55 Bedside Glucose 148 mg/dl 155 mg/dl 143 mg/dl Sodium Level 139 mmol/L Potassium Level 4.3 mmol/L Chloride Level 109 mmol/L Carbon Dioxide Level 23 mmol/L Anion Gap 8.0 mmol/L Blood Urea Nitrogen 60 mg/dl Creatinine 4.15 mg/dl Est Creatinine Clear Calc Drug Dose 15.2 ml/min Estimated GFR () 13.7 Estimated GFR (Non- 11.8 BUN/Creatinine Ratio 14.3 Random Glucose 44 mg/dl Calcium Level 8.3 mg/dl Test 09/20/17 07:59 09/20/17 08:14 09/20/17 08:22 Bedside Glucose 61 mg/dl 79 mg/dl 95 mg/dl Assessment and Plan This is a 47 year old female with a past medical history of type 1 diabetes mellitus on an insulin pump prior to arrival, with diabetic complications including retinopathy, gastroparesis and nephropathy, CKD stage IV, anemia of chronic kidney disease, vitamin D deficiency, iron deficiency, HTN, HLD, bipolar disorder, hx. of seizures, CAD, chronic diastolic CHF - had a recent CVA and tPA administration; was sent to inpatient rehab and sent from there to [facility] due to malfunctioning insulin pump and hyperglycemia, dehydration and GEOVANI. Hyperglycemia in the setting of Brittle Diabetes and Malfunctioning Pump/Type 1 DM 09/20 - will d/c with Lantus 8 units twice a day and a regular insulin sliding scale - should have an outpatient follow-up with endocrinology - [facility] to check blood sugars and adjust accordingly 09/19 - blood sugars have improved with the current regimen, which we can continue at [facility] - awaiting insurance auth - outpatient nephrology input regarding kidney function, Hgb 09/18 - BSGs much better controlled today - currently on Lantus 8 units in AM and 10 units in PM - now on a regular insulin sliding scale with adjusted CF and carb ratio as per pharmacy glycemic control consultation; appreciate input - will likely need these parameters as outpatient 09/17 - patient states she has been on an insulin pump for one month and has had multiple complications with it, including hypoglycemia, seizures, etc. - pump stopped functioning at [facility] rehab - presented with hyperglycemia - initially was on an insulin drip, now on basal/bolus insulin - still has hypo and hyperglycemic episodes - due to brittle diabetes/type 1 DM - this will be difficult to control - appreciate pharmacy glycemic control input - currently on 10 units of Lantus in the AM, 8 units in the PM with a sliding scale to cover breakfast and a separate one for the rest of the day - will speak with pharmacy regarding outpatient regimen prior to discharge - plan to d/c back to [facility] Acute Kidney Injury superimposed on CKD stage IV - creatinine has been fluctuating in the upper 3's and peaked at 4.3 - appreciate nephrology input - stopped all IV fluids at this time - her kidney function will worsen with uncontrolled diabetes and general decline - outpatient nephrology follow-up recommended Anemia of Chronic Disease - one unit pRBC transfusion - likely secondary to chronic kidney disease - will discuss outpatient Procrit injections Atypical Chest Pain - resolved Hx. of CAD - troponin negative x3 - echo shows a grade 2 diastolic dysfunction; normal LVEF, normal wall motion abnormality - continue aspirin, statin, b-wiley HTN - blood pressure improved with new medication regimen - will continue Amlodipine 10mg, Coreg 25mg BID, clonidine 0.2mg BID, Hydralazine 75mg TID - can titrate hydralazine or clonidine up if needed as outpatient Acute Bronchitis - continue doxycycline to complete the 7 day course (stop date 09/18) - continue nebs as needed - will stop Mucinex Recent CVA - continue PT/OT - will need inpatient rehab on discharge - continue aspirin, statin Hx. of Seizures - continue Depakote; monitor for hypoglycemic Hx. of Chronic Diastolic CHF - monitor for fluid overload - echo shows grade 2 diastolic dysfunction, currently seems euvolemic Hyperkalemia - improving - should improve with continued insulin tx. - outpatient electrolyte follow-up DVT ppx - subq heparin FULL CODE
--- NOTE | 2017-09-20 09:39 | Pharmacy Progress Note ---
Glycemic: Assessment & Plan Date of Service Sep 20, 2017. Assessment & Plan Pt to transfer back to [facility] today, below are recommendations for SQ basal bolus insulin regimen: * BASAL INSULIN: * Lantus 8 units SQ BID * BOLUS INSULIN: * use REGULAR insulin (not NovoLog/Humalog) as Regular insulin is preferred with gastroparesis. * To simplify regimen, recommend the following parameters to be used ACHS: * Goal range 110 - 150 mg/dl * CF = 90 mg/dl/unit * insulin:carb ratio = 15mg/dl/unit (this equates to ~ 1 unit with small meals /snacks; 3 units SQ with regular sized meals; 4 units with large meals)
[2017-09-20] MEDS ORDERED: INSDGIPEN SQ (10:33)
[2017-09-20] MEDS ORDERED: HYDR-4717 PO (10:33)
[2017-09-20] MEDS ORDERED: CTP2 PO (10:33)
[2017-09-20] MEDS ORDERED: INSUINJ7 SC (10:33)
[2017-09-20] MEDS ORDERED: LSX20 PO (10:33)
--- NOTE | 2017-09-20 10:36 | Discharge Instructions ---
Discharge Instructions Date of Service Sep 20, 2017. Admission Reason for Admission: Hyperglycemcia Discharge Discharge Diagnosis / Problem: Type 1 diabetes, brittle diabetes, recent stroke , worsening kidney function Discharge Goals Goal(s): Decrease discomfort, Improve function, Diagnostic testing, Therapeutic intervention Activity Recommendations Activity Limitations: resume your previous activity . Instructions / Follow-Up Instructions / Follow-Up You are no longer with an insulin pump; new regimen is as follows * BASAL INSULIN: * Lantus 8 units SQ BID * BOLUS INSULIN: * use REGULAR insulin (not NovoLog/Humalog) as Regular insulin is preferred with gastroparesis. * To simplify regimen, recommend the following parameters to be used ACHS: * Goal range 110 - 150 mg/dl * CF = 90 mg/dl/unit * insulin:carb ratio = 15mg/dl/unit (this equates to ~ 1 unit with small meals /snacks; 3 units SQ with regular sized meals; 4 units with large meals) due to recent stroke, will need continued physical and occupational therapy Should have outpatient follow-up with nephrology regarding kidney function and anemia; will likely need Procrit injections as outpatient Current Hospital Diet Patient's current hospital diet: AHA Diet (Heart Healthy), Diabetes Type 1 Diet , Low Fiber Diet Discharge Diet Recommended Diet: AHA Diet (Heart Healthy), Diabetes Type 1 Diet, Low Fiber Diet Pending Studies Studies pending at discharge: no Medical Emergencies . Who to Call and When: Medical Emergencies: If at any time you feel your situation is an emergency, please call 911 immediately. . Non-Emergent Contact Non-Emergency issues call your: Primary Care Provider, [facility] . . "Provider Documentation" section prepared by Jossie Song. .
--- NOTE | 2017-09-20 10:40 | Discharge Summary ---
Discharge Summary Date of Service Sep 20, 2017. Discharge Summary Admission Date: Sep 09, 2017 at 18:01 Discharge Date: Sep 20, 2017 Discharge Disposition: Rehab Principal Diagnosis: Hyperglycemia in the setting of Brittle Diabetes and Malfunctioning Pump/Type 1 DM Acute Kidney Injury superimposed on CKD stage IV Anemia of Chronic Disease - s/p one unit pRBCs Atypical Chest Pain - resolved Hx. of CAD HTN Acute Bronchitis Recent CVA Hx. of Seizures Hx. of Chronic Diastolic CHF Medication Reconciliation New Medications: Insulin Glargine (Lantus Solostar) 100 Unit/Ml Inj 8 UNITS SQ BID for 30 Days, ML Clonidine HCl (Clonidine HCl) 0.2 Mg Tab 0.2 MG PO BID for 30 Days, #60 TABS Furosemide (Furosemide) 20 Mg Tab 20 MG PO QAM for 30 Days, #30 TAB Insulin Regular (Human) (Novolin R U-100) 100 Unit/Ml Inj 0 UNITS SC TID@1130,1645,2100 for 30 Days Goal range 110 - 150 mg/dl CF = 90 mg/dl/unit insulin:carb ratio = 15mg/dl/unit (this equates to ~ 1 unit with small meals/snacks; 3 units SQ with regular sized meals; 4 units with large meals) Changed Medications: Hydralazine Hcl (Apresoline) 50 Mg Tab 1.5 TAB PO TID for 30 Days, #135 TAB 5 Refills (Changed from: Hydralazine HCl 25 Mg Tab 50 Mg PO QID) Continued Medications: Acetaminophen (Tylenol) 500 Mg Tab 500 MG PO Q4H PRN for Pain, TAB Albuterol Sulfate (Proair Respiclick) 108 Mcg/Act Aer 2 PUFFS INH Q4H PRN for Wheezing Amlodipine (Norvasc) 10 Mg Tab 10 MG PO DAILY, TAB Aspirin (Aspirin Chewable) 81 Mg Chew 81 MG PO DAILY, TAB Atorvastatin (Lipitor) 40 Mg Tab 40 MG PO DAILY, TAB Bisacodyl (Bisacodyl) 10 Mg Sup 1 SUPP TN DAILY PRN for Constipation Carvedilol (Coreg) 25 Mg Tab 25 MG PO BIDM, TAB Cholecalciferol (Vitamin D3) 2,000 Unit Tab 2000 INTER.UNIT PO DAILY, TAB Dextrose (Diabetic Use) (Glucose) 40 % Gel 1 TUBE PO UD PRN for Hypoglycemia Protocol Divalproex Sodium (Depakote) 500 Mg Tab 500 MG PO Q12, TAB Docusate Sodium (Docusate Sodium) 100 Mg Cap 100 MG PO BID PRN for Constipation, CAP Ferrous Sulfate (Iron) 325 Mg Tab 325 MG PO TIDM Fluticasone Furoate-Vilanterol (Breo Ellipta 200-25 Mcg/INH) 1 Inh Inh 1 PUFF INH DAILY Glucagon (Glucagon Emergency Kit) 1 Mg Kit 1 MG SC UD PRN for Hypoglycemia Protocol Magnesium Hydroxide (Milk Of Magnesia) 30 Ml Susp 30 ML PO DAILY PRN for Constipation, ML Multivitamins/Minerals (Mvi With Minerals) Tab 1 TAB PO DAILY, TAB Nortriptyline Hcl (Pamelor) 75 Mg Cap 75 MG PO HS, CAP Ondansetron Hcl (Zofran) 4 Mg Tab 4 MG PO Q8 PRN for Nausea or Vomiting, TAB Oxycodone HCl (Oxycodone HCl) 5 Mg Tab 2.5 MG PO Q8 PRN for Pain NEEDED FOR PAIN RATED 4-10 ON A SCALE OF "0-10" Pantoprazole (Protonix) 40 Mg Tab 40 MG PO DAILY, TAB Polyethylene Glycol 3350 (Miralax) 1 Pow Pow 17 GM PO DAILY PRN for Constipation, GM TAKE DAILY IF NEEDED WITH LUNCH Sennosides-Docusate Sodium (Senokot S) 1 Tab Tab 1 TAB PO DAILY, TAB TAKE DAILY WITH LUNCH Sodium Phosphate/Biphosphate (Fleet Enema) Emerita 1 EA TN DAILY PRN for Constipation, BTL Sucralfate (Sucralfate) 1 Gm Tab 1 GM PO DAILY, TAB Discontinued Medications: Insulin Aspart (Novolog) 100 Units/Ml Inj 1 DOSE SQ QID COVERAGE DIRECTED BY FOLLOWING SLIDING SCALE: LESS THAN 70 HYPOGLYCEMIA PROTOCOL 70 - 130 0 UNITS 131 - 180 2 UNITS 181 - 240 4 UNITS 241 - 300 6 UNITS 301 - 350 8 UNITS 351 - 400 10 UNITS GREATER THAN 400 12 UNITS AND CALL Insulin Glargine (Lantus Solostar) 100 Unit/Ml Inj 10 UNITS SC BID, PEN [insulin pump] () currently not working Admission Information HPI (per Admitting provider): 47-year-old female who presents to the ED with hyperglycemia. She is currently at [facility] for rehab from a recent stroke. Patient was admitted to [facility] 08/26 through 09/03 for acute CVA. 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 Patient did receive TPA. Patient is a type I diabetic with insulin pump. Patient reports that approximately 4 days ago her insulin pump cartridge had run out. She is being treated with subcu insulin over the weekend at [facility]. However blood sugars have been persistently elevated in the 4-500s. Patient reports intermittent episodes of midsternal chest pain. She reports that this typically occurs whenever her blood sugar is extremely elevated. She reports the chest pain is brief and resolves on its own. No exertional components. She denies shortness of breath and palpitations. She denies lightheadedness, dizziness, diaphoresis, and syncopal events. She has had some mild nausea but she denies any vomiting, abdominal pain or diarrhea. She denies any fever or chills. No urinary symptoms. In the ED, patient's blood sugars found to be 474. She was given IV insulin. Initial troponin is negative and EKG does not show any acute ST changes. Physical Exam (per Admitting): General Appearance: WD/WN, no apparent distress Head: normocephalic, atraumatic Eyes: normal inspection, EOMI, sclerae normal ENT: hearing grossly normal, + pertinent finding (Mucous membranes moist) Neck: supple, no JVD, trachea midline Respiratory/Chest: lungs clear, normal breath sounds, no respiratory distress Cardiovascular: regular rate, rhythm, no edema, normal peripheral pulses Abdomen/GI: normal bowel sounds, non tender, soft, no organomegaly Extremities/Musculoskelatal: normal inspection, no calf tenderness, normal capillary refill Neurologic/Psych: no motor/sensory deficits, alert, normal mood/affect, oriented x 3 Skin: normal color, warm/dry Hospital Course This is a 47 year old female with a past medical history of type 1 diabetes mellitus on an insulin pump prior to arrival, with diabetic complications including retinopathy, gastroparesis and nephropathy, CKD stage IV, anemia of chronic kidney disease, vitamin D deficiency, iron deficiency, HTN, HLD, bipolar disorder, hx. of seizures, CAD, chronic diastolic CHF - had a recent CVA and tPA administration; was sent to inpatient rehab and sent from there to [facility] due to malfunctioning insulin pump and hyperglycemia, dehydration and GEOVANI. Hyperglycemia in the setting of Brittle Diabetes and Malfunctioning Pump/Type 1 DM 09/20 - will d/c with Lantus 8 units twice a day and a regular insulin sliding scale - should have an outpatient follow-up with endocrinology - [facility] to check blood sugars and adjust accordingly 09/19 - blood sugars have improved with the current regimen, which we can continue at [facility] - awaiting insurance auth - outpatient nephrology input regarding kidney function, Hgb 09/18 - BSGs much better controlled today - currently on Lantus 8 units in AM and 10 units in PM - now on a regular insulin sliding scale with adjusted CF and carb ratio as per pharmacy glycemic control consultation; appreciate input - will likely need these parameters as outpatient 09/17 - patient states she has been on an insulin pump for one month and has had multiple complications with it, including hypoglycemia, seizures, etc. - pump stopped functioning at [facility] rehab - presented with hyperglycemia - initially was on an insulin drip, now on basal/bolus insulin - still has hypo and hyperglycemic episodes - due to brittle diabetes/type 1 DM - this will be difficult to control - appreciate pharmacy glycemic control input - currently on 10 units of Lantus in the AM, 8 units in the PM with a sliding scale to cover breakfast and a separate one for the rest of the day - will speak with pharmacy regarding outpatient regimen prior to discharge - plan to d/c back to [facility] Acute Kidney Injury superimposed on CKD stage IV - creatinine has been fluctuating in the upper 3's and peaked at 4.3 - appreciate nephrology input - stopped all IV fluids at this time - her kidney function will worsen with uncontrolled diabetes and general decline - outpatient nephrology follow-up recommended Anemia of Chronic Disease - one unit pRBC transfusion - likely secondary to chronic kidney disease - will discuss outpatient Procrit injections Atypical Chest Pain - resolved Hx. of CAD - troponin negative x3 - echo shows a grade 2 diastolic dysfunction; normal LVEF, normal wall motion abnormality - continue aspirin, statin, b-wiley HTN - blood pressure improved with new medication regimen - will continue Amlodipine 10mg, Coreg 25mg BID, clonidine 0.2mg BID, Hydralazine 75mg TID - can titrate hydralazine or clonidine up if needed as outpatient Acute Bronchitis - continue doxycycline to complete the 7 day course (stop date 09/18) - continue nebs as needed - will stop Mucinex Recent CVA - continue PT/OT - will need inpatient rehab on discharge - continue aspirin, statin Hx. of Seizures - continue Depakote; monitor for hypoglycemic Hx. of Chronic Diastolic CHF - monitor for fluid overload - echo shows grade 2 diastolic dysfunction, currently seems euvolemic Hyperkalemia - improving - should improve with continued insulin tx. - outpatient electrolyte follow-up DVT ppx - subq heparin FULL CODE Total time spent on discharge = 50 minutes This includes examination of the patient, discharge planning, medication reconciliation, and communication with other providers. Discharge Instructions You are no longer with an insulin pump; new regimen is as follows * BASAL INSULIN: * Lantus 8 units SQ BID * BOLUS INSULIN: * use REGULAR insulin (not NovoLog/Humalog) as Regular insulin is preferred with gastroparesis. * To simplify regimen, recommend the following parameters to be used ACHS: * Goal range 110 - 150 mg/dl * CF = 90 mg/dl/unit * insulin:carb ratio = 15mg/dl/unit (this equates to ~ 1 unit with small meals /snacks; 3 units SQ with regular sized meals; 4 units with large meals) due to recent stroke, will need continued physical and occupational therapy Should have outpatient follow-up with nephrology regarding kidney function and anemia; will likely need Procrit injections as outpatient
[2017-09-20 11:07] VITALS: BP 157/80; PULSE 67; TEMP 36.5; O2SAT 98
== END 2017-09-20 12:18 | DRG 638 ==
LOC: EDBD 15:20 → C.EDC 15:21 → C.2T 18:01 → ENRESERV 18:21
PROVIDERS: ADMIT Internal Medicine; ATTEND Family Medicine
DX: E10.65 Type 1 diabetes mellitus with hyperglycemia (principal); N17.9 Acute kidney failure, unspecified; N18.4 Chronic kidney disease, stage 4 (severe); I50.32 Chronic diastolic (congestive) heart failure; I13.0 Hypertensive heart and chronic kidney disease with heart failure and stage 1 through stage 4 chronic kidney disease, or unspecified chronic kidney disease; I69.951 Hemiplegia and hemiparesis following unspecified cerebrovascular disease affecting right dominant side; E87.1 Hypo-osmolality and hyponatremia; Z79.82 Long term (current) use of aspirin; I25.10 Atherosclerotic heart disease of native coronary artery without angina pectoris; Z96.41 Presence of insulin pump (external) (internal); R07.89 Other chest pain; D63.1 Anemia in chronic kidney disease; I69.922 Dysarthria following unspecified cerebrovascular disease; I69.998 Other sequelae following unspecified cerebrovascular disease; E10.43 Type 1 diabetes mellitus with diabetic autonomic (poly)neuropathy; G40.909 Epilepsy, unspecified, not intractable, without status epilepticus; Z87.891 Personal history of nicotine dependence; Z91.040 Latex allergy status; T85.694A Other mechanical complication of insulin pump, initial encounter; E86.0 Dehydration; E87.5 Hyperkalemia; J20.9 Acute bronchitis, unspecified; E10.319 Type 1 diabetes mellitus with unspecified diabetic retinopathy without macular edema; E10.21 Type 1 diabetes mellitus with diabetic nephropathy; E55.9 Vitamin D deficiency, unspecified; F31.9 Bipolar disorder, unspecified; Y73.2 Prosthetic and other implants, materials and accessory gastroenterology and urology devices associated with adverse incidents; Y92.89 Other specified places as the place of occurrence of the external cause

== ENCOUNTER 2018-12-19 18:51 | Inpatient (IN) ==
[2018-12-19] MEDS ORDERED: ONDANSETRON INJ 2 MG/ML 2 ML VIAL IV STA (19:05)
[2018-12-19] MEDS ORDERED: SODIUM CHLORIDE 0.9% 1000ML 1,000 ML IV ONE (19:05)
[2018-12-19] MEDS ORDERED: MoRPHine SULFATE 4 MG/ML 1 ML CARP\\VIAL IV STA (19:05)
--- NOTE | 2018-12-19 19:19 | Emergency Department Note ---
Entered by Carla Fregoso acting as a scribe for History of Present Illness General Chief complaint: Abdominal Pain Stated complaint: ABDOMINAL PAIN, CANNOT VOID Time Seen by Provider: 12/19/18 18:58 Source: patient History of Present Illness Onset (ago): day(s) 3 Location: abdomen Pain Consistency: + other (worsening) Maximum Pain Intensity: 9 Quality: + other (bloating) Associated symptoms: + nausea/vomiting and + other (diarrhea) The patient is a 48 year old female who presents to the ED with complaints of worsening abdominal pain starting 3 days ago. The patient states that 3 days ago she started to feel abdominal pain across her lower abdomen on both sides. She states that it feels like her abdomen is bloated. She reports that along with it she has had nausea. She states that yesterday she had diarrhea and today she v omited twice. She notes that she has been taking Miralax and Dulcalax. Home Medications Home Medications Medication Instructions Recorded Confirmed Type B complex with C#20-folic acid 1 cap PO DAILY 12/19/18 12/19/18 History [Leo Caps] albuterol sulfate [Proventil HFA] 2 puff INHALATION Q4 PRN 12/19/18 12/19/18 History aspirin [Aspir-81] 81 mg PO DAILY 12/19/18 12/19/18 History atorvastatin [Lipitor] 80 mg PO DAILY 12/19/18 12/19/18 History bisacodyl 5 mg PO DAILY PRN 12/19/18 12/19/18 History bupropion HCl 100 mg PO BID 12/19/18 12/19/18 History calcium acetate 667 mg PO TIDM 12/19/18 12/19/18 History carvedilol 25 mg PO BID 12/19/18 12/19/18 History ergocalciferol (vitamin D2) 50,000 unit PO MONTHLY 12/19/18 12/19/18 History [Vitamin D2] fluticasone furoate-vilanterol 1 inh INHALATION DAILY 12/19/18 12/19/18 History [Breo Ellipta] glucose 10 g PO UD 12/19/18 12/19/18 History insulin glargine [Basaglar KwikPen 15 unit SUBCUT QPM 12/19/18 12/19/18 History U-100 Insulin] insulin glargine [Basaglar KwikPen 25 unit SUBCUT QAM 12/19/18 12/19/18 History U-100 Insulin] insulin lispro [Admelog SoloStar 2 unit SUBCUT TIDM 12/19/18 12/19/18 History U-100 Insulin] lamotrigine [Lamictal] 100 mg PO DAILY 12/19/18 12/19/18 History metoclopramide HCl [Reglan] 5 mg PO BID 12/19/18 12/19/18 History multivitamin 1 tab PO DAILY 12/19/18 12/19/18 History ondansetron 4 mg PO Q8H PRN 12/19/18 12/19/18 History pantoprazole 40 mg PO DAILY 12/19/18 12/19/18 History polyethylene glycol 3350 [Miralax] 17 g PO BID PRN 12/19/18 12/19/18 History quetiapine [Seroquel] 25 mg PO BID 12/19/18 12/19/18 History sertraline [Zoloft] 50 mg PO DAILY 12/19/18 12/19/18 History torsemide 100 mg PO DAILY 12/19/18 12/19/18 History Allergies Allergy/AdvReac Type Severity Reaction Status Date / Time Fish Containing Products Allergy Mild Hives Verified 12/19/18 20:31 latex Allergy Mild hives Verified 12/19/18 20:31 Fish Allergy Mild hives Uncoded 12/19/18 20:31 Past Med/Surg History Medical History DM type 1 (diabetes mellitus, type 1) (Chronic) Depression (Chronic) Hyperlipidemia (Chronic) Hypertension (Chronic) History of GI bleed (Chronic) GERD (gastroesophageal reflux disease) (Chronic) Coronary artery disease (Chronic) "2016 - cardiac catheterization showing nonobstructive coronary disease Stress test 06/2017 - possible small area of ischemia in the anterior wall" Diabetic gastroparesis (Chronic) Anemia due to chronic kidney disease (Chronic) Diastolic heart failure (Chronic) Bipolar disorder (Chronic) Seizure (Chronic) CVA (cerebral vascular accident) (Chronic) CKD (chronic kidney disease) (Acute) Hyperglycemia (Acute) Surgical History Hx of cholecystectomy (Chronic) Hx of appendectomy (Chronic) Hx of tubal ligation (Chronic) Family History Other No significant family history Social History Preferred Language: Polish marital status: Single Current Living Situation: Significant Other current occupational status: unemployed Feels Safe at Home: Yes Smoking Status: Never smoker Review of Systems See HPI for pertinent positives & negatives. and A total of 10 systems reviewed and were otherwise negative Physical Exam Vital Signs Vital Signs - 24 hr 12/19/18 18:53 12/19/18 19:21 12/19/18 19:30 Temperature 36.9 C Temperature Source Oral Sepsis Recent Fever Within 48 Hours No Sepsis New/Unexplained Change in Mental Status No Sepsis Action Taken by Nursing No Action Required Pulse Rate 88 73 73 Pulse Rate [Right Finger] Pulse Rate from SpO2 Sensor 73 73 Respiratory Rate 16 18 20 Blood Pressure 161/69 H 197/80 H Blood Pressure [Right Arm] Blood Pressure Mean 99 119 Blood Pressure Mean [Right Arm] Pulse Oximetry 97 95 95 Oxygen Delivery Method Room Air 12/19/18 20:48 12/19/18 20:50 12/19/18 20:54 Temperature Temperature Source Sepsis Recent Fever Within 48 Hours Sepsis New/Unexplained Change in Mental Status Sepsis Action Taken by Nursing Pulse Rate 78 78 Pulse Rate [Right Finger] 80 Pulse Rate from SpO2 Sensor Respiratory Rate 29 H 17 Blood Pressure 137/78 Blood Pressure [Right Arm] 137/78 Blood Pressure Mean 97 Blood Pressure Mean [Right Arm] 97 Pulse Oximetry 97 Oxygen Delivery Method 12/19/18 21:00 12/19/18 21:01 Temperature Temperature Source Sepsis Recent Fever Within 48 Hours Sepsis New/Unexplained Change in Mental Status Sepsis Action Taken by Nursing Pulse Rate 78 79 Pulse Rate [Right Finger] Pulse Rate from SpO2 Sensor Respiratory Rate 28 H 20 Blood Pressure 169/90 H Blood Pressure [Right Arm] Blood Pressure Mean 116 Blood Pressure Mean [Right Arm] Pulse Oximetry Oxygen Delivery Method CONSTITUTIONAL/VITAL SIGNS: Reviewed / noted above. GENERAL: Non-toxic in appearance. INTEGUMENTARY: Warm, dry, and [place]. HEAD: Normocephalic. EYES: without scleral icterus or trauma. ENT/OROPHARYNX: clear and moist. LYMPHADENOPATHY/NECK: Is supple without lymphadenopathy or meningismus. RESPIRATORY: Lungs clear and equal. CARDIOVASCULAR: Regular rate and rhythm. GI/ABDOMEN: Soft and tenderness to palpation in the left upper quadrant. No organomegaly or pulsatile mass. No rebound or guarding. Normal bowel sounds. EXTREMITIES: Warm and well perfused. BACK: No CVA tenderness. NEUROLOGICAL: Intact without focal deficits. PSYCHIATRIC: normal affect. MUSCULOSKELETAL: Normally developed with good muscle tone. Course 1858: Past medical records reviewed. The patient was evaluated in room B3B. A complete history and physical exam was performed. 2115: I reevaluated the patient and updated her on her test results. I discussed the treatment plan with her. She verbally agrees and understands. 2117: I discussed the patient's case with Dr. Justice Pruitt. He will evaluate the patient for further management. Consultations Consultation #1: I discussed the patient's case with Dr. Justice Pruitt. He will evaluate the patient for further management. Time: 21:18 Administered Medications Discontinued Medications Sodium Chloride (Nss 1000ml) 1,000 mls @ 999 mls/hr IV .Q1H1M ONE Stop: 12/19/18 20:05 Last Infusion: 12/19/18 20:13 Dose: 0 mls/hr Documented by: [id number] Admin: 12/19/18 19:16 Dose: 999 mls/hr Documented by: [id number] Insulin Human Regular (Novolin R U-100 Per Unit) 10 units IV NOW STA Stop: 12/19/18 19:58 Last Admin: 12/19/18 20:07 Dose: 10 units Documented by: [id number] Cosigned by: [id number] Morphine Sulfate (Morphine Sulfate) 4 mg IV NOW STA Stop: 12/19/18 19:06 Last Admin: 12/19/18 19:16 Dose: 4 mg Documented by: [id number] Ondansetron HCl (Zofran) 4 mg IV NOW STA Stop: 12/19/18 19:06 Last Admin: 12/19/18 19:16 Dose: 4 mg Documented by: [id number] Medical Decision Making Differential Diagnosis Differential diagnoses includes but is not limited to gastritis, peptic ulcer disease, GERD, gallbladder disease, pancreatitis, small bowel obstruction, acute coronary syndrome, pericarditis, ischemic bowel, irritable bowel disease, irritable bowel syndrome, appendicitis, diverticulitis, malignancy, hernia, urinary tract infection, torsion, /ectopic , perforation, trauma, infectious. Medical Records Attestation: I reviewed the patient's medical records. Home Medications Current Medication List: was personally reviewed by me Laboratory Data Attestation: I reviewed the patient's lab results. Result diagrams: 12/19/18 19:09 12/19/18 19:09 Lab Results 12/19/18 12/19/18 12/19/18 Range/Units 19:09 19:09 19:09 WBC 4.71 L (4.8-10.8) K/uL RBC 3.54 L (4.2-5.4) M/uL Hgb 10.3 L (12.0-16.0) g/dL Hct 34.6 L (37-47) % MCV 97.7 (80-100) fL MCH 29.1 (25-34) pg MCHC 29.8 L (32-36) g/dL RDW Std Deviation 56.5 H (36.4-46.3) fL RDW Coeff of [place] 15.8 H (11.5-14.5) % Plt Count 271 (130-400) K/uL MPV 10.4 (7.4-10.4) fL Immature Gran % (Auto) 0.2 % Neut % (Auto) 55.4 % Lymph % (Auto) 32.1 % [place] % (Auto) 8.3 % Eos % (Auto) 3.4 % Baso % (Auto) 0.6 % Immature Gran # (Auto) 0.01 (0.00-0.02) K/uL Neut # (Auto) 2.61 (1.4-6.5) K/uL Lymph # (Auto) 1.51 (1.2-3.4) K/uL [place] # (Auto) 0.39 (0.11-0.59) K/uL Eos # (Auto) 0.16 (0-0.5) K/uL Baso # (Auto) 0.03 (0-0.2) K/uL Sodium 125 L (136-145) mmol/L Potassium 4.6 (3.5-5.1) mmol/L Chloride 90 L (98-107) mmol/L Carbon Dioxide 27 (21-32) mmol/L Anion Gap 9.0 (3-11) BUN 28 H (7-18) mg/dl Creatinine 3.64 H (0.6-1.2) mg/dl Est Cr Clr Drug Dosing 16.9 ml/min Est GFR ( Amer) 16.0 Est GFR (Non-Af Amer) 13.8 BUN/Creatinine Ratio 7.6 L (10-20) Glucose 1023 H* (70-99) mg/dl Calcium 8.3 L (8.5-10.1) mg/dl Total Bilirubin 0.5 (0.2-1) mg/dl AST 8 L (15-37) U/L ALT 19 (12-78) U/L Alkaline Phosphatase 188 H (45-117) U/L Total Protein 7.2 (6.4-8.2) gm/dl Albumin 3.4 (3.4-5.0) gm/dl Globulin 3.8 (2.5-4.0) gm/dl Albumin/Globulin Ratio 0.9 (0.9-2) Lipase 149 (73-393) U/L Beta-Hydroxybutyric Acd 1.38 (0.2-2.81) mg/dl Urine Color Yellow Urine Appearance Clear (Clear) Urine pH 8.0 H (4.5-7.5) Ur Specific [place] 1.018 (1.000-1.030) Urine Protein Negative (Negative) Urine Glucose (UA) 3+ H (Negative) Urine Ketones Negative (Negative) Urine Blood Trace H (Negative) Urine Nitrite Negative (Negative) Urine Bilirubin Negative (Negative) Urine Urobilinogen Negative (Negative) Ur Leukocyte Esterase Negative (Negative) Urine WBC (Auto) 1-5 (0-5) /hpf Urine RBC (Auto) 0-4 (0-4) /hpf U Hyaline Cast (Auto) 0 (0-5) /lpf U Epithel Cells (Auto) 20-30 H (0-5) /lpf Urine Bacteria (Auto) Negative (Negative) Imaging Data Radiologist's Impression: Radiology results as stated below per my review and the radiologist's interpretation: CT SCAN OF THE ABDOMEN AND PELVIS WITHOUT IV CONTRAST CLINICAL HISTORY: Generalized abdominal pain. Bloating. COMPARISON STUDY: Renal ultrasound dated 09/09/2017. TECHNIQUE: CT scan of the abdomen and pelvis is performed from the lung bases to the proximal femora. Images are reviewed in the axial, sagittal, and coronal planes. IV contrast was not administered for this examination as per the referring clinician. Note that the examination was performed in suboptimal fashion without oral and IV contrast. A dose lowering technique was utilized adhering to the principles of ALARA. CT DOSE: 326.07 mGy.cm FINDINGS: Lung bases: The heart is enlarged and without pericardial effusion. The mitral annulus is densely calcified. There is a small hiatal hernia. There is dependent atelectasis. No airspace consolidation or pleural effusion is identified. Intralobular septal thickening is noted at both lung bases. Liver: The unenhanced liver is enlarged, measuring 20.3 cm in length. The liver is otherwise normal in contour and attenuation. There is mild central intrahepatic biliary ductal dilatation. Gallbladder: Surgically absent noting clips in the gallbladder fossa. Spleen: Normal in size and attenuation. Pancreas: The unenhanced pancreas is atrophic and grossly unremarkable. Adrenal glands: Unremarkable. Kidneys: The unenhanced kidneys demonstrate cortical atrophy and are without hydronephrosis. There are renovascular calcifications. There are likely punctate nonobstructing kidney stones. There is no evidence of contour deforming renal mass lesion. Abdominal vasculature: The abdominal aorta is normal in course and caliber noting moderate atherosclerotic calcification. Bowel: There is moderate colonic fecal retention. No bowel obstruction is seen. The appendix is not identified and reported surgically absent. Peritoneum: There is no intraperitoneal free air or abdominal ascites. There is a small fat-containing umbilical hernia. Lymphadenopathy: None. Pelvic viscera: The bladder is distended. The bladder wall is mildly thickened. The uterus is normal as visualized noting an intrauterine device in place. No adnexal lesion is seen. A 2.9 cm sebaceous cyst is noted posterior to the left hip. Skeletal structures: The skeletal structures are osteopenic. There is mild lumbosacral spondylosis. Posterior disc osteophyte complexes are noted at L4-L5 and L5-S1. There is mild degenerative sclerosis of the sacroiliac joints. No lytic or blastic lesions are seen. IMPRESSION: 1. The bladder wall appears circumferentially thickened. Correlate clinically and with urinalysis for evidence of cystitis. 2. Suspect punctate nonobstructing renal calculi. 3. The heart is enlarged and intralobular septal thickening is noted at both lung bases. Correlate clinically for evidence of mild congestive failure. 4. Moderate constipation. 5. Hepatomegaly. 6. Additional findings as above. Electronically signed by: Davy Willson M.D. 12/19/2018 8:58 PM Blood Pressure Blood Pressure Findings: Elevated blood pressure Blood Pressure Disposition: elevated BP felt to be situational MDM Narrative This is a 48-year-old female who presents to the ED with a chief complaint of abdominal bloating the discomfort. The patient states that her symptoms started 3 days ago. Her pain is in the lower abdomen. She reports a history of appendectomy and cholecystectomy in the past. The patient states that she had diarrhea yesterday but none today. She reports 2 episodes of vomiting today. On my exam, the patient has tenderness to the left upper quadrant of the abdomen. She has no CVA tenderness. A CT scan of the abdomen pelvis reveals some findings concerning for constipation otherwise no acute process. The patient's urinalysis did not show infection. Glucose was 1023. BUN is 28. Creatinine is 3.64. The patient does do peritoneal dialysis. CBC was unremarkable. The patient was told the results. She was given IV insulin 10 units. She was also given some IV morphine and IV Zofran. The patient's blood sugar was rechecked and is still higher than able to be discovered on the glucometer. I spoke with the hospitalist, who will see the patient for further inpatient evaluation and care. Impression & Plan Hyperglycemia, Abdominal pain, Constipation Discharge Plan Visit Data Chief Complaint: Abdominal Pain Stated Complaint: ABDOMINAL PAIN, CANNOT VOID ED Provider: Wilfredo Andrews Discharge Problem: Hyperglycemia, Abdominal pain, Constipation Patient Disposition: Being Evaluated by Hospitalist Forms Stand Alone Forms: Call Back Authorization, [facility] Prescriptions Prescriptions: No Action multivitamin Tablet 1 tab PO DAILY RF: 0 atorvastatin [Lipitor] 80 mg tablet 80 mg PO DAILY RF: 0 carvedilol 25 mg Tablet 25 mg PO BID RF: 0 polyethylene glycol 3350 [Miralax] 17 gram Powder In Packet 17 g PO BID PRN (Reason: Constipation) RF: 0 aspirin [Aspir-81] 81 mg Tablet,Delayed Release (Dr/Ec) 81 mg PO DAILY RF: 0 bupropion HCl 100 mg tablet 100 mg PO BID RF: 0 metoclopramide HCl [Reglan] 5 mg tablet 5 mg PO BID RF: 0 torsemide 100 mg tablet 100 mg PO DAILY RF: 0 pantoprazole 40 mg Tablet,Delayed Release (Dr/Ec) 40 mg PO DAILY RF: 0 glucose 4 gram Tablet,Chewable 10 g PO UD RF: 0 ergocalciferol (vitamin D2) [Vitamin D2] 50,000 unit capsule 50,000 unit PO MONTHLY RF: 0 Burton Caps 1 mg Capsule 1 cap PO DAILY RF: 0 albuterol sulfate [Proventil HFA] 90 mcg/actuation HFA aerosol inhaler 2 puff inhalation Q4 PRN (Reason: Wheezing) RF: 0 ondansetron 4 mg Tablet,Disintegrating 4 mg PO Q8H PRN (Reason: Nausea) RF: 0 sertraline [Zoloft] 50 mg tablet 50 mg PO DAILY RF: 0 lamotrigine [Lamictal] 100 mg tablet 100 mg PO DAILY RF: 0 bisacodyl 5 mg Tablet 5 mg PO DAILY PRN (Reason: Constipation) RF: 0 insulin lispro [Admelog SoloStar U-100 Insulin] 100 unit/mL insulin pen 2 unit subcut TIDM RF: 0 calcium acetate 667 mg capsule 667 mg PO TIDM RF: 0 quetiapine [Seroquel] 50 mg tablet 25 mg PO BID RF: 0 Basaglar KwikPen U-100 Insulin 100 unit/mL (3 mL) insulin pen 15 unit subcut QPM RF: 0 Basaglar KwikPen U-100 Insulin 100 unit/mL (3 mL) insulin pen 25 unit subcut QAM RF: 0 Breo Ellipta 200-25 mcg/dose Blister With Device 1 inh INHALATION DAILY RF: 0 Referrals Referrals: Mitchel Santo MD [Primary Care Provider] - Discharge Problem: Abdominal pain Qualifiers: Abdominal location: unspecified location Qualified Code(s): R10.9 - Unspecified abdominal pain Constipation Qualifiers: Constipation type: unspecified constipation type Qualified Code(s): K59.00 - Constipation, unspecified The scribe's documentation has been prepared under my direction and personally reviewed by me in its entirety. I confirm that the note above accurately reflects all work, treatment, procedures, and medical decision making performed by me.
[2018-12-19 19:20] LABS: Basophils # (auto) 0.03 K/uL (0-0.2); Basophils % (auto) 0.6 %; Eosinophils # (auto) 0.16 K/uL (0-0.5); Eosinophils % (auto) 3.4 %; Hematocrit (blood only) 34.6 % (37-47); Hemoglobin 10.3 g/dL (12.0-16.0); Immature Granulocytes # (auto) 0.01 K/uL (0.00-0.02); Immature Granulocytes % (auto) 0.2 %; Lymphocytes # (auto) 1.51 K/uL (1.2-3.4); Lymphocytes % (auto) 32.1 %; Mean Corpuscular Hgb Conc 29.8 g/dL (32-36); Mean Corpuscular Volume 97.7 fL (80-100); Mean Platelet Volume 10.4 fL (7.4-10.4); Monocytes # (auto) 0.39 K/uL (0.11-0.59); Monocytes % (auto) 8.3 %; Neutrophils # (auto) 2.61 K/uL (1.4-6.5); Neutrophils % (auto) 55.4 %; Platelet Count 271 K/uL (130-400); RDW Coefficient of Variation 15.8 % (11.5-14.5); RDW Standard Deviation 56.5 fL (36.4-46.3); Red Blood Count 3.54 M/uL (4.2-5.4); White Blood Count 4.71 K/uL (4.8-10.8)
[2018-12-19 19:45] LABS: Alanine Aminotransferase 19 U/L (12-78); Albumin Globulin Ratio 0.9 (0.9-2); Albumin Level 3.4 gm/dl (3.4-5.0); Alkaline Phosphatase 188 U/L (45-117); Aspartate Aminotransferase 8 U/L (15-37); BUN Creatinine Ratio 7.6 (10-20); Bilirubin,Total 0.5 mg/dl (0.2-1); Blood Urea Nitrogen 28 mg/dl (7-18); Calcium 8.3 mg/dl (8.5-10.1); Carbon Dioxide 27 mmol/L (21-32); Chloride 90 mmol/L (98-107); Creatinine Clr Calc Pharmacy 16.9 ml/min; Est GFR (Non-African American) 13.8; Globulin 3.8 gm/dl (2.5-4.0); Glucose 1023 mg/dl (70-99); Potassium 4.6 mmol/L (3.5-5.1); Sodium 125 mmol/L (136-145); Total Protein 7.2 gm/dl (6.4-8.2)
[2018-12-19] MEDS ORDERED: NovoLIN-R INSULIN PER UNIT CHARGE IV STA (19:57)
[2018-12-19 20:24] LABS: Appearance Urine Clear (Clear); Bacteria Urine Automated Negative (Negative); Bilirubin Urine Negative (Negative); Cast Urine Automated 0 /lpf (0-5); Color Urine Yellow; Epithelial Cell Urine Auto 20-30 /lpf (0-5); Glucose Urine UA 3+ (Negative); Ketones Urine Negative (Negative); Leukocyte Esterase Urine Negative (Negative); Nitrite Urine Negative (Negative); Protein Urine Negative (Negative); Specific Gravity Urine 1.018 (1.000-1.030); Urobilinogen Urine Negative (Negative)
--- NOTE | 2018-12-19 21:01 | CT Scan Report ---
CT SCAN OF THE ABDOMEN AND PELVIS WITHOUT IV CONTRAST CLINICAL HISTORY: Generalized abdominal pain. Bloating. COMPARISON STUDY: Renal ultrasound dated 09/09/2017. TECHNIQUE: CT scan of the abdomen and pelvis is performed from the lung bases to the proximal femora. Images are reviewed in the axial, sagittal, and coronal planes. IV contrast was not administered for this examination as per the referring clinician. Note that the examination was performed in suboptim al fashion without oral and IV contrast. A dose lowering technique was utilized adhering to the [facility] [place]. CT DOSE: 326.07 mGy.cm FINDINGS: Lung bases: The heart is enlarged and without pericardial effusion. The mitral annulus is densely patric cified. There is a small hiatal hernia. There is dependent atelectasis. No airspace consolidation or pleural effusion is identified. Intralobular septal thickening is noted at both lung bases. Liver: The unenhanced liver is enlarged, measuring 20.3 cm in length. The liver is otherwise normal i n contour and attenuation. There is mild central intrahepatic biliary ductal dilatation. Gallbladder: Surgically absent noting clips in the gallbladder fossa. Spleen: Normal in size and attenuation. Pancreas: The unenhanced pancreas is atrophic and grossly unremarkable. Adrenal glands: Unremarkable. Kidneys: The unenhanced kidneys demonstrate cortical atrophy and are without hydronephrosis. There ar e renovascular calcifications. There are likely punctate nonobstructing kidney stones. There is no ev idence of contour deforming renal mass lesion. Abdominal vasculature: The abdominal aorta is normal in course and caliber noting moderate atheroscle rotic calcification. Bowel: There is moderate colonic fecal retention. No bowel obstruction is seen. The appendix is not identified and reported surgically absent. Peritoneum: There is no intraperitoneal free air or abdominal ascites. There is a small fat-containin g umbilical hernia. Lymphadenopathy: None. Pelvic viscera: The bladder is distended. The bladder wall is mildly thickened. The uterus is normal as visualized noting an intrauterine device in place. No adnexal lesion is seen. A 2.9 cm sebaceous c yst is noted posterior to the left hip. Skeletal structures: The skeletal structures are osteopenic. There is mild lumbosacral spondylosis. P osterior disc osteophyte complexes are noted at L4-L5 and L5-S1. There is mild degenerative sclerosis of the sacroiliac joints. No lytic or blastic lesions are seen. IMPRESSION: 1. The bladder wall appears circumferentially thickened. Correlate clinically and with urinalysis for evidence of cystitis. 2. Suspect punctate nonobstructing renal calculi. 3. The heart is enlarged and intralobular septal thickening is noted at both lung bases. Correlate cl inically for evidence of mild congestive failure. 4. Moderate constipation. 5. Hepatomegaly. 6. Additional findings as above. Electronically signed by: Davy Willson M.D. 12/19/2018 8:58 PM
[2018-12-19] MEDS ORDERED: INSULIN PROTOCOL GOAL RANGE ONE (22:02)
[2018-12-19] MEDS ORDERED: CALCIUM GLUCONATE 10% 1,000 MG in SODIUM CHLORIDE 0.9% 50 ML IV STA (22:05)
[2018-12-19] MEDS ORDERED: INSULIN REGULAR 250 UNITS in SODIUM CHLORIDE 0.9% 247.5 ML IV SCH (22:15)
[2018-12-19 22:25] LABS: Magnesium 2.2 mg/dl (1.8-2.4)
[2018-12-19 22:29] LABS: Troponin I < 0.015 ng/ml (0-0.045)
--- NOTE | 2018-12-19 22:33 | History & Physical Report ---
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 Of significance patient had recent hospitalization at [facility] on 11/04 to 11/07/2018 for viral bronchitis, elevated blood sugars, nausea and vomiting related to gastroparesis. She was subsequently rehospitalized on 11/11 to 11/24/2018 secondary to severe metabolic acidosis, DKA, central line associated bloodstream infection with Leclercia adecaarboxylata tx with IV cefalozin x 2 weeks. During hospitalization while at HD she had unresponsive episode, MRI was performed which revealed an acute ischemic left basal ganglia CVA. Due to her bacteremia she had central line removed. In ED significant lab findings included H&H 10.3 and 34.6, WBC 4.71, platelet 271, corrected Na 147, K4.6, BUN 28, creatinine 3.64, glucose 1023, troponin WNL, beta hydroxybutyric acid and TSH WNL, lipase WNL. Urinalysis not consistent with infection. CT scan of abdomen pelvis: Revealed moderate constipation, hepatomegaly, enlarged heart with intralobular septal thickening consistent with mild congestive heart failure, circumferential thickening of bladder wall possibly secondary to cystitis. Patient is being admitted to PCU for HHS, abdominal pain likely in the setting of constipation, Diastolic CHF exac/volume overload, ESRD will need HD tomorrow Etiology of HHS uncertain at this time -infectious work-up pending Patient was seen and examined in collaboration with Dr. Gonzalez, please see his addendum for further details regarding assessment and plan (4) ESRD (end stage renal disease) on dialysis: (5) DM type 1 (diabetes mellitus, type 1): (6) Diastolic heart failure: (7) Anemia due to chronic kidney disease: (8) CVA (cerebral vascular accident): (9) Diabetic gastroparesis: (10) Hypertension: (11) Hyperlipidemia: (12) Bipolar disorder: (13) DVT prophylaxis: History of Present Illness Chief Complaint: Abdominal pain x3 days Primary Care Provider: Mitchel Santo MD This is a 48-year-old female who has a significant past medical history of T1 DM, ESRD on HD , chronic diastolic CHF, HTN, HLD, gastroparesis, 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 Family member at bedside. Approximately 3 days ago while at hemodialysis she developed abrupt onset of lower abdominal pain. Pain is constant, worse with lying down, improved with standing, nonradiating. Did not try anything [id number] to make it better. Denies having pain in the past. States she has not had a good bowel movement in some time and chronically has looser stools. For the past 3 days she has had loose diarrhea but denies any melena or hematochezia. She also elicits to having PND and orthopnea with sleeping. She complains of chills and sweats but denies any fevers. Denies syncope, chest pain, palpitations, hematemesis, vomiting. She does still urinate but denies any hematuria, increased urgency or frequency with urination or dysuria. Her appetite is overall diminished. She states up until the past 2 months she has been getting her menstrual period. Her periods have been heavy and would occur twice monthly. She had an IUD inserted on 10/10/2018. Of significance patient had recent hospitalization at [facility] on 11/04 to 11/07/2018 for viral bronchitis, elevated blood sugars, nausea and vomiting related to gastroparesis. She was subsequently rehospitalized on 11/11 to 11/24/2018 secondary to severe metabolic acidosis, DKA, central line associated bloodstream infection with Leclercia adecaarboxylata tx with IV cefalozin x 2 weeks. During hospitalization while at HD she had unresponsive episode, MRI was performed which revealed an acute ischemic left basal ganglia CVA. Due to her bacteremia she had central line removed. Allergies Allergy/AdvReac Type Severity Reaction Status Date / Time Fish Containing Products Allergy Mild Hives Verified 12/19/18 20:31 latex Allergy Mild hives Verified 12/19/18 20:31 Fish Allergy Mild hives Uncoded 12/19/18 20:31 Home Medications Home Medications Medication Instructions Recorded Confirmed Type B complex with C#20-folic acid 1 cap PO DAILY 12/19/18 12/19/18 History [Leo Caps] albuterol sulfate [Proventil HFA] 2 puff INHALATION Q4 PRN 12/19/18 12/19/18 History aspirin [Aspir-81] 81 mg PO DAILY 12/19/18 12/19/18 History atorvastatin [Lipitor] 80 mg PO DAILY 12/19/18 12/19/18 History bisacodyl 5 mg PO DAILY PRN 12/19/18 12/19/18 History bupropion HCl 100 mg PO BID 12/19/18 12/19/18 History calcium acetate 667 mg PO TIDM 12/19/18 12/19/18 History carvedilol 25 mg PO BID 12/19/18 12/19/18 History ergocalciferol (vitamin D2) 50,000 unit PO MONTHLY 12/19/18 12/19/18 History [Vitamin D2] fluticasone furoate-vilanterol 1 inh INHALATION DAILY 12/19/18 12/19/18 History [Breo Ellipta] glucose 10 g PO UD 12/19/18 12/19/18 History insulin glargine [Basaglar KwikPen 15 unit SUBCUT QPM 12/19/18 12/19/18 History U-100 Insulin] insulin glargine [Basaglar KwikPen 25 unit SUBCUT QAM 12/19/18 12/19/18 History U-100 Insulin] insulin lispro [Admelog SoloStar 2 unit SUBCUT TIDM 12/19/18 12/19/18 History U-100 Insulin] lamotrigine [Lamictal] 100 mg PO DAILY 12/19/18 12/19/18 History metoclopramide HCl [Reglan] 5 mg PO BID 12/19/18 12/19/18 History multivitamin 1 tab PO DAILY 12/19/18 12/19/18 History ondansetron 4 mg PO Q8H PRN 12/19/18 12/19/18 History pantoprazole 40 mg PO DAILY 12/19/18 12/19/18 History polyethylene glycol 3350 [Miralax] 17 g PO BID PRN 12/19/18 12/19/18 History quetiapine [Seroquel] 25 mg PO BID 12/19/18 12/19/18 History sertraline [Zoloft] 50 mg PO DAILY 12/19/18 12/19/18 History torsemide 100 mg PO DAILY 12/19/18 12/19/18 History Past Med/Surg History Medical History ESRD (end stage renal disease) on dialysis Arteriovenous fistula for hemodialysis in place, primary (Chronic) DM type 1 (diabetes mellitus, type 1) (Chronic) Depression (Chronic) Hyperlipidemia (Chronic) Hypertension (Chronic) History of GI bleed (Chronic) GERD (gastroesophageal reflux disease) (Chronic) Coronary artery disease (Chronic) "2016 - cardiac catheterization showing nonobstructive coronary disease Stress test 06/2017 - possible small area of ischemia in the anterior wall" Diabetic gastroparesis (Chronic) Anemia due to chronic kidney disease (Chronic) Diastolic heart failure (Chronic) Bipolar disorder (Chronic) Seizure (Chronic) CVA (cerebral vascular accident) (Chronic) 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 history of CVA in 2018 Residual R sided weakness CKD (chronic kidney disease) (Acute) Hyperglycemia (Acute) Family History Mother Coronary heart disease Hypertension Father Coronary heart disease Other No significant family history Social History Preferred Language: Italian Communication Ability: Effective Communication Ability Comment: 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 Physical Exam Physical Exam: Gen: Well-developed/well-nourished, female, sitting up in bed, appears in pain, answers questions appropriately, broken Italian, Head: Normocephalic, Atraumatic Eyes: Sclera normal, no conjunctival injection, PERRLA, EOMI ENT: Gross hearing intact, normal pharynx, mucous membranes moist Neck: supple, no adenopathy, No JVD, no bruit, Resp: Clear to auscultation b/l, no wheeze, rales, rhonchi. Normal insp/exp effort, no accessory muscle use CV: Regular rate, regular rhythm, soft 2/6 [place] noted RUSB, no rub, gallop, or ectopy Abd: Distended and protuberant abdomen, soft, pain to light and deep palpation to lower abdomen and suprapubic region, no guarding, rebound, rigidity, +BS x 4 Musculoskeletal: moves extremities active rom x 4 with diminished strength to right upper and lower extremity. 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 Extremities: No edema bilaterally, right upper extremity AV fistula intact Skin: warm, moist, no rash, negative turgor, cap refill < 2sec Neuro: Alert and oriented x 3, speech normal, good mood/affect, cran nerve 2-12 intact grossly : deferred Results & Data Vital Signs (Past 12 Hours) Vital Signs Temp Pulse Pulse Resp BP BP Pulse Ox 12/19/18 21:01 79 20 12/19/18 21:00 78 28 H 169/90 H 12/19/18 20:54 80 17 137/78 97 12/19/18 20:50 78 29 H 137/78 12/19/18 20:48 78 12/19/18 19:30 73 20 95 12/19/18 19:21 73 18 197/80 H 95 12/19/18 18:53 36.9 C 88 16 161/69 H 97 Laboratory Results Short CBC 12/19/18 Range/Units 19:09 WBC 4.71 L (4.8-10.8) K/uL Hgb 10.3 L (12.0-16.0) g/dL Hct 34.6 L (37-47) % Plt Count 271 (130-400) K/uL BMP 12/19/18 19:09 Sodium 125 L Potassium 4.6 Chloride 90 L Carbon Dioxide 27 BUN 28 H Creatinine 3.64 H Glucose 1023 H* Calcium 8.3 L Cardiac Enzymes 12/19/18 Range/Units 19:09 Troponin I < 0.015 (0-0.045) ng/ml Liver Function 12/19/18 Range/Units 19:09 Total Bilirubin 0.5 (0.2-1) mg/dl AST 8 L (15-37) U/L ALT 19 (12-78) U/L Alkaline Phosphatase 188 H (45-117) U/L Albumin 3.4 (3.4-5.0) gm/dl Urine 12/19/18 Range/Units 19:09 Urine Color Yellow Urine Appearance Clear (Clear) Urine pH 8.0 H (4.5-7.5) Ur Specific [place] 1.018 (1.000-1.030) Urine Protein Negative (Negative) Urine Glucose (UA) 3+ H (Negative) Diagnostic Findings CXR: IMPRESSION: Cardiomegaly with mild pulmonary vascular congestion. Abd/Pelvis CT: IMPRESSION: 1. The bladder wall appears circumferentially thickened. Correlate clinically and with urinalysis for evidence of cystitis. 2. Suspect punctate nonobstructing renal calculi. 3. The heart is enlarged and intralobular septal thickening is noted at both lung bases. Correlate clinically for evidence of mild congestive failure. 4. Moderate constipation. 5. Hepatomegaly. 6. Additional findings as above. Medications Administered Carvedilol (Coreg) 25 mg PO BID SARAH Stop: 01/18/19 21:59 Last Admin: 12/19/18 22:42 Dose: 25 mg Documented by: [id number] Discontinued Medications Sodium Chloride (Nss 1000ml) 1,000 mls @ 999 mls/hr IV .Q1H1M ONE Stop: 12/19/18 20:05 Last Infusion: 12/19/18 20:13 Dose: 0 mls/hr Documented by: [id number] Admin: 12/19/18 19:16 Dose: 999 mls/hr Documented by: [id number] Calcium Gluconate 1,000 mg/ (Sodium Chloride) 60 mls @ 240 mls/hr IV NOW STA Stop: 12/19/18 22:19 Last Admin: 12/19/18 22:42 Dose: 240 mls/hr Documented by: [id number] Insulin Human Regular (Novolin R U-100 Per Unit) 10 units IV NOW STA Stop: 12/19/18 19:58 Last Admin: 12/19/18 20:07 Dose: 10 units Documented by: [id number] Cosigned by: [id number] Morphine Sulfate (Morphine Sulfate) 4 mg IV NOW STA Stop: 12/19/18 19:06 Last Admin: 12/19/18 19:16 Dose: 4 mg Documented by: [id number] Ondansetron HCl (Zofran) 4 mg IV NOW STA Stop: 12/19/18 19:06 Last Admin: 12/19/18 19:16 Dose: 4 mg Documented by: [id number] Supervising Physician Co-Signing Physician Notes IM ATTENDING : Patient seen and examined. History obtained from patient, , and records. Preceding documentation by Ms. Alem Rodrigues PA-C reviewed. FINAL ASSESSMENT AND PLAN as follows : HHS hx DM1, suboptimal control as of recent outpatient hemoglobin A1c of 10.4 last November 2018 gastroenteritis as precipitating factor rule out C. difficile ? Medication non-compliance Hypertensive urgency secondary to illness Chest pain secondary to above History chronic diastolic heart failure (EF 60 to 64%, TTE 2018) ESRD on hemodialysis some congestion on x-ray Chronic anemia secondary to ESRD Mood disorder at baseline Past tobacco abuse PCU given chest pain complaints, uncontrolled blood pressure Facilitate home BP meds, may need titration IV insulin overlapping with basal subcutaneous Lantus Update hemoglobin A1c May benefit from Pharmacy glycemic control consultation Nephrology consult RE dialysis management DVT prophylaxis. Heparin subcu Full code (1) Abdominal pain Abdominal location: unspecified location Qualified Code(s): R10.9 - Unspecified abdominal pain (2) Constipation Constipation type: unspecified constipation type Qualified Code(s): K59.00 - Constipation, unspecified
--- NOTE | 2018-12-19 22:37 | XRay Report ---
SINGLE VIEW CHEST CLINICAL HISTORY: Nausea. Bloating. FINDINGS: An AP, portable, upright chest radiograph is compared to study dated 09/11/2017. The examinat ion is degraded by portable technique and patient rotation. The heart is enlarged. There is mild pu lmonary vascular congestion. No airspace consolidation or large pleural effusion is identified. Bibas ilar atelectasis is observed. No pneumothorax is seen. The skeletal structures are osteopenic. The rayray ny thorax is grossly intact. IMPRESSION: Cardiomegaly with mild pulmonary vascular congestion. Electronically signed by: Davy Willson M.D. 12/19/2018 10:36 PM
[2018-12-19] MEDS: CARVEDILOL 25 MG TAB PO SCH (22:42)
[2018-12-19 23:02] LABS: Partial Thromboplastin Ratio 1.1; Partial Thromboplastin Time 30.4 Seconds (21.0-31.0)
[2018-12-19] MEDS ORDERED: NITROGLYCERIN SL 0.4 MG/TAB TAB SL STA (23:26)
[2018-12-19] MEDS ORDERED: INSULIN GLARGINE SOLOSTAR 100 UNITS/ML 3 ML PEN SC STA (23:26)
[2018-12-19 23:52] LABS: BUN Creatinine Ratio 7.9 (10-20); Calcium 8.4 mg/dl (8.5-10.1); Creatinine Clr Calc Pharmacy 18.1 ml/min; Est GFR (African American) 17.3; Est GFR (Non-African American) 14.9; Potassium 4.4 mmol/L (3.5-5.1)
[2018-12-20] MEDS ORDERED: HYDROmorphone INJ 0.5 MG/0.5 ML SYR ONE (00:07)
[2018-12-20] MEDS ORDERED: ERGOCALCIFEROL 50,000 UNITS CAP PO SCH (00:42)
[2018-12-20] MEDS ORDERED: LEVALBUTEROL 1.25MG/0.5ML NEB INH PRN (00:42)
[2018-12-20] MEDS ORDERED: HYDROmorphone INJ 0.5 MG/0.5 ML SYR IV PRN (00:42)
[2018-12-20] MEDS ORDERED: IPRATROPIUM BROMIDE NEB SOLN 0.02% 2.5 ML VIAL INH PRN (00:42)
[2018-12-20] MEDS ORDERED: XOPENEX/ATROVENT 1.25mg/0.5MG NEB COMBO NEB PRN (00:42)
[2018-12-20] MEDS ORDERED: PROMETHAZINE HCL 12.5 MG in SODIUM CHLORIDE 0.9% 50 ML IV PRN (00:42)
[2018-12-20] MEDS ORDERED: NITROGLYCERIN SL 0.4 MG/TAB TAB SL PRN (00:42)
[2018-12-20] MEDS ORDERED: GLUCAGON FOR INJ 1 MG VIAL SQ PRN ×2 (00:45→03:13)
[2018-12-20] MEDS ORDERED: GLUCOSE 40% GEL 15 GM TUBE PO PRN ×2 (00:45→03:13)
[2018-12-20] MEDS ORDERED: CARBOHYDRATES FOR HYPOGLYCEMIA PO PRN ×2 (00:45→03:13)
[2018-12-20] MEDS ORDERED: DEXTROSE 50% 50 ML SYRINGE IV PRN ×2 (00:45→03:13)
[2018-12-20] MEDS ORDERED: GLUCOSE 10 TABS/TUBE PO PRN ×2 (00:45→03:13)
[2018-12-20] MEDS: OXYCODONE HCL IR 5 MG TAB (IMMEDIATE RELEASE) PO PRN ×4 (01:23→19:05)
[2018-12-20] MEDS: buPROPion HCl 100 MG TABLET PO SCH ×3 (01:24→21:33)
[2018-12-20] MEDS: QUETIAPINE FUMARATE 25 MG TABLET PO SCH ×3 (01:24→21:33)
[2018-12-20] MEDS: INSULIN ASPART 100 UNITS/ML 3 ML PEN SC SCH ×5 (03:25→21:26)
[2018-12-20] MEDS ORDERED: Nursing to Pharmacy Communication ONE (03:30)
[2018-12-20] MEDS ORDERED: SENNA 8.8 MG/5 ML UDP PO PRN (03:43)
[2018-12-20] MEDS ORDERED: HEPARIN SOD 5,000 UNIT/0.5 ML VIAL SQ SCH (06:00)
[2018-12-20] MEDS: HEPARIN SOD 5,000 UNIT/0.5 ML VIAL SQ SCH ×3 (06:06→21:27)
[2018-12-20] MEDS ORDERED: INSULIN ASPART 100 UNITS/ML 3 ML PEN SC SCH (07:30)
[2018-12-20 07:36] LABS: Estimated Average Glucose 177 mg/dl
[2018-12-20] MEDS ORDERED: HEPARIN SOD (PORCINE) 1000 UNIT/ML 10 ML VIAL IV ONE (07:55)
[2018-12-20] MEDS ORDERED: SODIUM CHLORIDE 0.9% 1000ML 1,000 ML IV PRN (07:55)
[2018-12-20] MEDS: CALCIUM ACETATE 667 MG CAP PO SCH ×3 (08:03→16:53)
[2018-12-20] MEDS: ASPIRIN 81 MG ECTAB PO SCH (08:04)
[2018-12-20] MEDS: MULTIVITAMIN TAB PO SCH (08:04)
[2018-12-20] MEDS: lamoTRIgine 100 MG TAB PO SCH (08:04)
[2018-12-20] MEDS: ATORVASTATIN 40 MG TAB PO SCH (08:04)
[2018-12-20] MEDS: NEPHROCAPS PO SCH (08:05)
[2018-12-20] MEDS: PANTOprazole 40 MG TAB PO SCH (08:05)
[2018-12-20] MEDS: METOCLOPRAMIDE HCL 5 MG TABLET PO SCH ×2 (08:05→21:34)
[2018-12-20] MEDS: SERTRALINE HCL 50 MG TABLET PO SCH (08:06)
[2018-12-20 08:52] LABS: Partial Thromboplastin Ratio 1.1
[2018-12-20] MEDS ORDERED: INSULIN GLARGINE SOLOSTAR 100 UNITS/ML 3 ML PEN SQ SCH (09:00)
[2018-12-20 09:09] LABS: BUN Creatinine Ratio 8.3 (10-20); Blood Urea Nitrogen 30 mg/dl (7-18); Carbon Dioxide 27 mmol/L (21-32); Chloride 102 mmol/L (98-107); Creatinine Clr Calc Pharmacy 17.3 ml/min; Est GFR (African American) 16.4; Est GFR (Non-African American) 14.1; Glucose 190 mg/dl (70-99); Sodium 137 mmol/L (136-145)
[2018-12-20 09:13] LABS: Troponin I < 0.015 ng/ml (0-0.045)
[2018-12-20 09:26] LABS: Basophils # (auto) 0.02 K/uL (0-0.2); Basophils % (auto) 0.4 %; Eosinophils # (auto) 0.27 K/uL (0-0.5); Hematocrit (blood only) 31.5 % (37-47); Hemoglobin 10.4 g/dL (12.0-16.0); Immature Granulocytes # (auto) 0.01 K/uL (0.00-0.02); Immature Granulocytes % (auto) 0.2 %; Lymphocytes % (auto) 25.9 %; Mean Corpuscular Volume 89.5 fL (80-100); Mean Platelet Volume 9.8 fL (7.4-10.4); Monocytes # (auto) 0.54 K/uL (0.11-0.59); Neutrophils # (auto) 3.17 K/uL (1.4-6.5); Neutrophils % (auto) 58.5 %; Platelet Count 266 K/uL (130-400); RDW Coefficient of Variation 15.7 % (11.5-14.5); RDW Standard Deviation 50.6 fL (36.4-46.3); Red Blood Count 3.52 M/uL (4.2-5.4); White Blood Count 5.41 K/uL (4.8-10.8)
[2018-12-20 09:37] LABS: Hepatitis B Surface Antibody Immune
[2018-12-20 09:47] LABS: Hepatitis B Surface Antigen Neg (Neg)
[2018-12-20] MEDS: HEPARIN SOD (PORCINE) 1000 UNIT/ML 10 ML VIAL IV SCH ×2 (12:46→12:47)
--- NOTE | 2018-12-20 17:36 | Hospitalist Progress Note ---
Date of Service December 20, 2018 Assessment & Plan (1) Hyperglycemic hyperosmolar nonketotic coma: Presented with HHS without,-Type 1 DM On admission, glucose 1023, troponin , beta hydroxybutyric acid and TSH WNL, lipase WNL. 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 pt reports of chronic abdominal pain , worsening of symptom for past few days with hx of severe diabetic gastroparesis worsening of presentation due to ongoing constipation CT abdomen /pelvis : CT scan of abdomen pelvis: Revealed moderate constipation, hepatomegaly, enlarged heart with intralobular septal thickening consistent with mild congestive heart failure, circumferential thickening of bladder wall possibly secondary to cystitis. ordered for bowel regimen on Reglan may need higher dose if symptom persisted (3) Constipation: (4) ESRD (end stage renal disease) on dialysis: ESRD due to diabetic nephropathy ( Type 1 DM ) on chronic HD // on [facility] [place] , follows with Nephrology with [facility] no evidence of vol overload Nephrology consulted -got her scheduled HD today (5) DM type 1 (diabetes mellitus, type 1): poorly controlled with multiple complications _ESRD on HD /severe diabetic nephropathy/neuropathy /gastroparesis hx of DKA in past admitted with HHS requiring IV insulin cont Sub q insulin regimen Pharmacy glycemic management para educator cosnulted (6) Diastolic heart failure: (7) Anemia due to chronic kidney disease: (8) CVA (cerebral vascular accident): patient had recent hospitalization at [facility] on 11/04 to 11/07/2018 for viral bronchitis, elevated blood sugars, nausea and vomiting related to gastroparesis. She was subsequently rehospitalized on 11/11 to 11/24/2018 secondary to severe meta bolic acidosis, DKA, central line associated bloodstream infection with Leclercia adecaarboxylata tx with IV cefalozin x 2 weeks. During hospitalization while at HD she had unresponsive episode, MRI was performed which revealed an acute ischemic left basal ganglia CVA. cont aspirin / /statin (9) Diabetic gastroparesis: due to complication of Type 1 Dm with poor glycemic control causing chronic abdominal bloating /discomfort and pain cont Reglan , change the dose to pre meal cont bowel regimen (10) Hypertension: cont out pt meds (11) Hyperlipidemia: cont statin (12) Bipolar disorder: cont out pt meds (13) DVT prophylaxis: scd and teds ambulate DISPOSITION : plan to dc home when medically stable Subjective Feels much better, no nausea vomiting no fever or chills no shortness of breath Still have lower abdominal pain discomfort not able to have any bowel movement Physical Exam Constitutional: + ill appearing; no acute distress Eyes: PERRL, conjunctivae normal, anicteric sclerae ENMT: external ear and nose normal, oropharynx normal Neck: trachea midline, no thyromegaly Respiratory: normal respiratory effort, lungs clear to auscultation Cardiovascular: RRR, no murmur, no edema Gastrointestinal (Abdomen): Inspection/Auscultation: + abdomen distended Percussion/Palpation: + abdomen tender (In left lower quadrant, no rebound/hypoactive bowel sounds) and abdomen soft Musculoskeletal: no cyanosis or clubbing, extremities motor strength 5/5 Skin: no rashes, warm and dry Neurologic: PERRL, EOMI, accommodation nl, no face palsy, no dysarthria Psychiatric: A+Ox3, euthymic affect Results & Data Vital Signs (Past 12 Hours) Vital Signs Temp Pulse Pulse Pulse Resp BP BP 12/20/18 15:35 36.9 C 68 18 123/67 12/20/18 13:17 37.0 C 63 63 115/56 L 115/56 L 12/20/18 13:00 61 89/40 L 12/20/18 12:40 60 94/48 L 12/20/18 12:20 60 90/41 L 12/20/18 12:00 61 92/46 L 12/20/18 11:40 61 98/48 L 12/20/18 11:20 61 100/52 L 12/20/18 11:00 61 101/52 L 12/20/18 10:40 62 103/51 L 12/20/18 10:20 63 114/56 L 12/20/18 10:00 63 114/55 L 12/20/18 09:46 37.0 C 65 65 123/81 12/20/18 09:32 62 12/20/18 07:23 36.6 C 63 16 BP Pulse Ox 12/20/18 15:35 96 12/20/18 13:17 12/20/18 13:00 12/20/18 12:40 12/20/18 12:20 12/20/18 12:00 12/20/18 11:40 12/20/18 11:20 12/20/18 11:00 12/20/18 10:40 12/20/18 10:20 12/20/18 10:00 12/20/18 09:46 12/20/18 09:32 12/20/18 07:23 116/59 L 95 (1) Abdominal pain Abdominal location: unspecified location Qualified Code(s): R10.9 - Unspecified abdominal pain (2) Constipation Constipation type: unspecified constipation type Qualified Code(s): K59.00 - Constipation, unspecified
[2018-12-20] MEDS ORDERED: BISACODYL 5 MG TABEC PO ONE (18:33)
--- NOTE | 2018-12-20 19:38 | Nephrology Consultation ---
Date of Consultation December 20, 2018 Assessment & Plan (1) ESRD (end stage renal disease) on dialysis: continue TRSat HD using avf; goal 2.5 L fluid removal today using avf. apart from BGs, chemistries acceptable. mild volume OL on imaging and exam. next HD tentatively for 12/23 or as clinical status dictates Present on Admission?: Yes (2) Abdominal pain: per primary service; avoid fleets based products to treat constipation Present on Admission?: Yes (3) Hyperglycemic hyperosmolar nonketotic coma: per primary service Present on Admission?: Yes (4) Anemia due to chronic kidney disease: hgb in 10s; monitor; no epo w/ HD today but restart next tx Present on Admission?: Yes History of Present Illness Reason for Consultation: esrd on hemodialysis Requesting Physician: Dr Castillo Attending Physician: Margareth Rich MD History of Present Illness 48 y/o F admitted overnight for mgt of HHS, acute on chronic abdominal pain. I am asked to see her for mgt of ESRD. She dialyzes at [facility] on TRSat; she recently had dialysis catheter removed and is using avf for HD. PMH includes brittle DM1, ESRD from same, gastroparesis, bipolar disorder for which she has needed multiple hospital stays in past; chronic abdominal pain, acute L basal ganglia stroke November 2018, October 2018 hospitalization [facility] [place] hyperglycemia/[place]chitis, mid November 2018 [facility] admission for bacteremia, stroke, DKA. her abdominal pain this admission is primarily LLQ. she also endorses chills and yesterday had chest pain. chronic mild N. has constipation and LLQ pain x 3 days. Seen and evaluated on rounds this am at 0910. Allergies Allergy/AdvReac Type Severity Reaction Status Date / Time Fish Containing Products Allergy Mild Hives Verified 12/19/18 20:31 latex Allergy Mild hives Verified 12/19/18 20:31 Fish Allergy Mild hives Uncoded 12/19/18 20:31 Home Medications Home Medications Medication Instructions Recorded Confirmed Type B complex with C#20-folic acid 1 cap PO DAILY 12/19/18 12/19/18 History [Colbert Caps] albuterol sulfate [Proventil HFA] 2 puff INHALATION Q4 PRN 12/19/18 12/19/18 History aspirin [Aspir-81] 81 mg PO DAILY 12/19/18 12/19/18 History atorvastatin [Lipitor] 80 mg PO DAILY 12/19/18 12/19/18 History bisacodyl 5 mg PO DAILY PRN 12/19/18 12/19/18 History bupropion HCl 100 mg PO BID 12/19/18 12/19/18 History calcium acetate 667 mg PO TIDM 12/19/18 12/19/18 History carvedilol 25 mg PO BID 12/19/18 12/19/18 History ergocalciferol (vitamin D2) 50,000 unit PO MONTHLY 12/19/18 12/19/18 History [Vitamin D2] fluticasone furoate-vilanterol 1 inh INHALATION DAILY 12/19/18 12/19/18 History [Breo Ellipta] glucose 10 g PO UD 12/19/18 12/19/18 History insulin glargine [Basaglar KwikPen 15 unit SUBCUT QPM 12/19/18 12/19/18 History U-100 Insulin] insulin glargine [Basaglar KwikPen 25 unit SUBCUT QAM 12/19/18 12/19/18 History U-100 Insulin] insulin lispro [Admelog SoloStar 2 unit SUBCUT TIDM 12/19/18 12/19/18 History U-100 Insulin] lamotrigine [Lamictal] 100 mg PO DAILY 12/19/18 12/19/18 History metoclopramide HCl [Reglan] 5 mg PO BID 12/19/18 12/19/18 History multivitamin 1 tab PO DAILY 12/19/18 12/19/18 History ondansetron 4 mg PO Q8H PRN 12/19/18 12/19/18 History pantoprazole 40 mg PO DAILY 12/19/18 12/19/18 History polyethylene glycol 3350 [Miralax] 17 g PO BID PRN 12/19/18 12/19/18 History quetiapine [Seroquel] 25 mg PO BID 12/19/18 12/19/18 History sertraline [Zoloft] 50 mg PO DAILY 12/19/18 12/19/18 History torsemide 100 mg PO DAILY 12/19/18 12/19/18 History Patient History Medical History ESRD (end stage renal disease) on dialysis Arteriovenous fistula for hemodialysis in place, primary (Chronic) DM type 1 (diabetes mellitus, type 1) (Chronic) Depression (Chronic) Hyperlipidemia (Chronic) Hypertension (Chronic) History of GI bleed (Chronic) GERD (gastroesophageal reflux disease) (Chronic) Coronary artery disease (Chronic) "2016 - cardiac catheterization showing nonobstructive coronary disease Stress test 06/2017 - possible small area of ischemia in the anterior wall" Diabetic gastroparesis (Chronic) Anemia due to chronic kidney disease (Chronic) Diastolic heart failure (Chronic) Bipolar disorder (Chronic) Seizure (Chronic) CVA (cerebral vascular accident) (Chronic) 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 history of CVA in 2018 Residual R sided weakness CKD (chronic kidney disease) (Acute) Hyperglycemia (Acute) Family History Mother Coronary heart disease Hypertension Father Coronary heart disease Other No significant family history Social History Preferred Language: German Communication Ability: Effective Communication Ability Comment: 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 Required: No Beliefs That Will Affect Care: None marital status: Single Current Living Situation: Family and Significant Other current occupational status: unemployed Other Information That Helps Us Care for You: No Feels Safe at Home: Yes Safety Concerns: Feels Safe At This Time Smoking Status: Never smoker Hx Alcohol Use: No Hx Substance Use: No Review of Systems Review of Systems: All systems reviewed & are unremarkable except as noted in HPI & below Constitutional: + chills; no fever Respiratory: + dyspnea Cardiovascular: as per Subjective / HPI Genitourinary: voids daily - no change in chronic voiding habits; no dysuria Musculoskeletal: + muscle weakness and + body aches Integumentary: + non-healing lesions; no rash Neurologic: + gait abnormality and + localized weakness Physical Exam Constitutional: well developed and well nourished; no acute distress on ra, nad Eyes: EOM intact bilaterally ENMT: Ears: no external ear abnormality Nose: no external nose abnormality Mouth: + dry oral mucous membranes Neck: no nuchal rigidity Respiratory: normal respiratory effort Auscultation: + diminished lung sounds Cardiovascular: Rate/Rhythm: regular rate and regular rhythm Heart Sounds: + murmur Extremities: + edema (trace) and + AV fistula (+t/b) Gastrointestinal (Abdomen): Inspection/Auscultation: normal bowel sounds Percussion/Palpation: abdomen soft; abdomen nontender Musculoskeletal: no cyanosis or clubbing, extremities motor strength 5/5 Extremities: strength 5/5 throughout Skin: no rashes, warm and dry Neurologic: teran, fluent though as at previous evals slightly delayed speech, no tremor Psychiatric: Orientation: alert and oriented x 3 Apperance: appropriately groomed Eye Contact: + fair eye contact Affect: + depressed affect Genitourinary: no kim Results & Data Vital Signs (Past 12 Hours) Vital Signs Temp Pulse Pulse Resp BP BP Pulse Ox 12/20/18 15:35 36.9 C 68 18 123/67 96 12/20/18 13:17 37.0 C 63 63 115/56 L 115/56 L 12/20/18 13:00 61 89/40 L 12/20/18 12:40 60 94/48 L 12/20/18 12:20 60 90/41 L 12/20/18 12:00 61 92/46 L 12/20/18 11:40 61 98/48 L 12/20/18 11:20 61 100/52 L 12/20/18 11:00 61 101/52 L 12/20/18 10:40 62 103/51 L 12/20/18 10:20 63 114/56 L 12/20/18 10:00 63 114/55 L 12/20/18 09:46 37.0 C 65 65 123/81 12/20/18 09:32 62 Laboratory Results Abnormal lab results 12/19/18 12/19/18 12/19/18 Range/Units 19:09 19:09 19:09 RBC (4.2-5.4) M/uL Hgb (12.0-16.0) g/dL Hct (37-47) % RDW Std Deviation (36.4-46.3) fL RDW Coeff of Lebron (11.5-14.5) % Sodium (136-145) mmol/L Chloride (98-107) mmol/L BUN (7-18) mg/dl Creatinine (0.6-1.2) mg/dl BUN/Creatinine Ratio (10-20) Glucose (70-99) mg/dl POC Glucose (70-99) Hemoglobin A1c 7.8 H (4.5-5.6) % Osmolality 327 H (280-300) mOsm/kg Calcium (8.5-10.1) mg/dl Urine pH 8.0 H (4.5-7.5) Urine Glucose (UA) 3+ H (Negative) Urine Blood Trace H (Negative) U Epithel Cells (Auto) 20-30 H (0-5) /[facility] 12/19/18 12/19/18 12/20/18 Range/Units 20:50 23:16 00:51 RBC (4.2-5.4) M/uL Hgb (12.0-16.0) g/dL Hct (37-47) % RDW Std Deviation (36.4-46.3) fL RDW Coeff of Lebron (11.5-14.5) % Sodium 131 L (136-145) mmol/L Chloride 96 L (98-107) mmol/L BUN 27 H (7-18) mg/dl Creatinine 3.40 H (0.6-1.2) mg/dl BUN/Creatinine Ratio 7.9 L (10-20) Glucose 602 H* (70-99) mg/dl POC Glucose > 600 H* 441 H* (70-99) Hemoglobin A1c (4.5-5.6) % Osmolality (280-300) mOsm/kg Calcium 8.4 L (8.5-10.1) mg/dl Urine pH (4.5-7.5) Urine Glucose (UA) (Negative) Urine Blood (Negative) U Epithel Cells (Auto) (0-5) /[facility] 12/20/18 12/20/18 12/20/18 Range/Units 02:02 03:22 03:44 RBC (4.2-5.4) M/uL Hgb (12.0-16.0) g/dL Hct (37-47) % RDW Std Deviation (36.4-46.3) fL RDW Coeff of Lebron (11.5-14.5) % Sodium (136-145) mmol/L Chloride (98-107) mmol/L BUN (7-18) mg/dl Creatinine (0.6-1.2) mg/dl BUN/Creatinine Ratio (10-20) Glucose (70-99) mg/dl POC Glucose 241 H 176 H 168 H (70-99) Hemoglobin A1c (4.5-5.6) % Osmolality (280-300) mOsm/kg Calcium (8.5-10.1) mg/dl Urine pH (4.5-7.5) Urine Glucose (UA) (Negative) Urine Blood (Negative) U Epithel Cells (Auto) (0-5) /[facility] 12/20/18 12/20/18 12/20/18 Range/Units 05:36 07:21 08:13 RBC 3.52 L (4.2-5.4) M/uL Hgb 10.4 L (12.0-16.0) g/dL Hct 31.5 L (37-47) % RDW Std Deviation 50.6 H (36.4-46.3) fL RDW Coeff of Lebron 15.7 H (11.5-14.5) % Sodium (136-145) mmol/L Chloride (98-107) mmol/L BUN (7-18) mg/dl Creatinine (0.6-1.2) mg/dl BUN/Creatinine Ratio (10-20) Glucose (70-99) mg/dl POC Glucose 135 H 135 H (70-99) Hemoglobin A1c (4.5-5.6) % Osmolality (280-300) mOsm/kg Calcium (8.5-10.1) mg/dl Urine pH (4.5-7.5) Urine Glucose (UA) (Negative) Urine Blood (Negative) U Epithel Cells (Auto) (0-5) /[facility] 12/20/18 12/20/18 12/20/18 Range/Units 08:13 14:25 16:12 RBC (4.2-5.4) M/uL Hgb (12.0-16.0) g/dL Hct (37-47) % RDW Std Deviation (36.4-46.3) fL RDW Coeff of Lebron (11.5-14.5) % Sodium (136-145) mmol/L Chloride (98-107) mmol/L BUN 30 H (7-18) mg/dl Creatinine 3.56 H (0.6-1.2) mg/dl BUN/Creatinine Ratio 8.3 L (10-20) Glucose 190 H (70-99) mg/dl POC Glucose 107 H 144 H (70-99) Hemoglobin A1c (4.5-5.6) % Osmolality (280-300) mOsm/kg Calcium (8.5-10.1) mg/dl Urine pH (4.5-7.5) Urine Glucose (UA) (Negative) Urine Blood (Negative) U Epithel Cells (Auto) (0-5) /lpf Diagnostic Findings cxr > mild pulmonary vascular congestion ct abd/pelvis noncon Lung bases: The heart is enlarged and without pericardial effusion. The mitral annulus is densely calcified. There is a small hiatal hernia. There is dependent atelectasis. No airspace consolidation or pleural effusion is identified. Intralobular septal thickening is noted at both lung bases. Liver: The unenhanced liver is enlarged, measuring 20.3 cm in length. The liver is otherwise normal in contour and attenuation. There is mild central intrahepatic biliary ductal dilatation. Gallbladder: Surgically absent noting clips in the gallbladder fossa. Spleen: Normal in size and attenuation. Pancreas: The unenhanced pancreas is atrophic and grossly unremarkable. Adrenal glands: Unremarkable. Kidneys: The unenhanced kidneys demonstrate cortical atrophy and are without hydronephrosis. There are renovascular calcifications. There are likely punctate nonobstructing kidney stones. There is no evidence of contour deforming renal mass lesion. Abdominal vasculature: The abdominal aorta is normal in course and caliber noting moderate atherosclerotic calcification. Bowel: There is moderate colonic fecal retention. No bowel obstruction is seen. The appendix is not identified and reported surgically absent. Peritoneum: There is no intraperitoneal free air or abdominal ascites. There is a small fat-containing umbilical hernia. Lymphadenopathy: None. Pelvic viscera: The bladder is distended. The bladder wall is mildly thickened. The uterus is normal as visualized noting an intrauterine device in place. No adnexal lesion is seen. A 2.9 cm sebaceous cyst is noted posterior to the left hip. Skeletal structures: The skeletal structures are osteopenic. There is mild lumbosacral spondylosis. Posterior disc osteophyte complexes are noted at L4-L5 and L5-S1. There is mild degenerative sclerosis of the sacroiliac joints. No lytic or blastic lesions are seen. IMPRESSION: 1. The bladder wall appears circumferentially thickened. Correlate clinically and with urinalysis for evidence of cystitis. 2. Suspect punctate nonobstructing renal calculi. 3. The heart is enlarged and intralobular septal thickening is noted at both marisel g bases. Correlate clinically for evidence of mild congestive failure. 4. Moderate constipation. 5. Hepatomegaly. 6. Additional findings as above. (1) Abdominal pain Abdominal location: unspecified location Qualified Code(s): R10.9 - Unspecified abdominal pain
[2018-12-20] MEDS ORDERED: ALBUTEROL HFA 8 GM INHALER INH PRN (20:04)
[2018-12-20] MEDS: ACETAMINOPHEN 325 MG TAB PO PRN (20:15)
[2018-12-20] MEDS ORDERED: BISACODYL 5 MG TABEC PO PRN (20:45)
[2018-12-20] MEDS: INSULIN GLARGINE SOLOSTAR 100 UNITS/ML 3 ML PEN SQ SCH (21:27)
[2018-12-20] MEDS: CARVEDILOL 25 MG TAB PO SCH (21:33)
[2018-12-21] MEDS: HEPARIN SOD 5,000 UNIT/0.5 ML VIAL SQ SCH ×3 (05:31→21:51)
[2018-12-21] MEDS: INSULIN ASPART 100 UNITS/ML 3 ML PEN SC SCH ×4 (08:41→21:49)
[2018-12-21] MEDS: ATORVASTATIN 40 MG TAB PO SCH (08:42)
[2018-12-21] MEDS: TORSEMIDE 100 MG TAB PO SCH (08:42)
[2018-12-21] MEDS: CARVEDILOL 25 MG TAB PO SCH ×2 (08:42→21:43)
[2018-12-21] MEDS: lamoTRIgine 100 MG TAB PO SCH (08:43)
[2018-12-21] MEDS: ASPIRIN 81 MG ECTAB PO SCH (08:43)
[2018-12-21] MEDS: QUETIAPINE FUMARATE 25 MG TABLET PO SCH ×2 (08:44→21:42)
[2018-12-21] MEDS: PANTOprazole 40 MG TAB PO SCH (08:44)
[2018-12-21] MEDS: buPROPion HCl 100 MG TABLET PO SCH ×2 (08:44→21:42)
[2018-12-21] MEDS: MULTIVITAMIN TAB PO SCH (08:44)
[2018-12-21] MEDS: METOCLOPRAMIDE HCL 5 MG TABLET PO SCH (08:44)
[2018-12-21] MEDS: CALCIUM ACETATE 667 MG CAP PO SCH ×3 (08:45→18:15)
[2018-12-21] MEDS: NEPHROCAPS PO SCH (08:45)
[2018-12-21] MEDS: SERTRALINE HCL 50 MG TABLET PO SCH (08:46)
[2018-12-21] MEDS: INSULIN GLARGINE SOLOSTAR 100 UNITS/ML 3 ML PEN SQ SCH ×2 (08:47→21:50)
[2018-12-21] MEDS: POLYETHYLENE (MIRALAX) 17 GM PACK PO PRN (09:01)
[2018-12-21] MEDS: OXYCODONE HCL IR 5 MG TAB (IMMEDIATE RELEASE) PO PRN ×3 (12:36→21:56)
[2018-12-21] MEDS ORDERED: PHARMACY GLYCEMIC MGMT CONSULT PRN (16:48)
--- NOTE | 2018-12-21 17:59 | Hospitalist Progress Note ---
Date of Service December 21, 2018 Assessment & Plan (1) Hyperglycemic hyperosmolar nonketotic coma: Resolved, BSG improved Presented with HHS without,-Type 1 DM On admission, glucose 1023, troponin , beta hydroxybutyric acid and TSH WNL, lipase WNL. BSG improved with IV insulin infusion transitioned to SC insulin regimen (2) Abdominal pain: Has chronic lower abdominal pain for gastroparesis Episodes has resolved after bowel movement with bowel regimen Continue stool softeners /Reglan before meals pt reports of chronic abdominal pain , worsening of symptom for past few days with hx of severe diabetic gastroparesis worsening of presentation due to ongoing constipation CT abdomen /pelvis : CT scan of abdomen pelvis: Revealed moderate constipation, hepatomegaly, enlarged heart with intralobular septal thickening consistent with mild leonel estive heart failure, circumferential thickening of bladder wall possibly secondary to cystitis. (3) Constipation: Resolved with bowel movement, Continue bowel regimen This is a 48-year-old female who has a significant past medical history of T1 DM, ESRD on HD //, chronic diastolic CHF, HTN, HLD, gastroparesis, recent acute ischemic left basal ganglia CVA 11/2018, bipolar disorder, legally blind who presents to [facility] ED secondary to abdominal pain x3 days. Of significance patient had recent hospitalization at [facility] on 11/04 to 11/07/2018 for viral bronchitis, elevated blood sugars, nausea and vomiting related to gastroparesis. She was subsequently rehospitalized on 11/11 to 11/24/2018 secondary to severe metabolic acidosis, DKA, central line associated bloodstream infection with Leclercia adecaarboxylata tx with IV cefalozin x 2 weeks. During hospitalization while at HD she had unresponsive episode, MRI was performed which revealed an acute ischemic left basal ganglia CVA. Due to her bacteremia she had central line removed. Urinalysis not consistent with infection. CT scan of abdomen pelvis: Revealed moderate constipation, hepatomegaly, enlarged heart with intralobular septal thickening consistent with mild congestive heart failure, circumferential thickening of bladder wall possibly secondary to cystitis. Patient is being admitted to PCU for HHS, abdominal pain likely in the setting of constipation, Diastolic CHF exac/volume overload, ESRD will need HD tomorrow Etiology of HHS uncertain at this time -infectious work-up pending (4) ESRD (end stage renal disease) on dialysis: ESRD due to diabetic nephropathy ( Type 1 DM ) on chronic HD [facility] follows with Nephrology with [facility] no evidence of vol overload Nephrology consulted -got her scheduled HD yesterday (5) DM type 1 (diabetes mellitus, type 1): poorly controlled with multiple complications _ESRD on HD /severe diabetic nephropathy/neuropathy /gastroparesis hx of DKA in past admitted with HHS requiring IV insulin cont Sub q insulin regimen Pharmacy 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 She was subsequently rehospitalized on 11/11 to 11/24/2018 secondary to severe metabolic acidosis, DKA, central line associated bloodstream infection with Leclercia adecaarboxylata tx with IV cefalozin x 2 weeks. During hospitalization while at HD she had unresponsive episode, MRI was performed which revealed an acute ischemic left basal ganglia CVA. cont aspirin / /statin (9) Diabetic gastroparesis: due to complication of Type 1 Dm with poor glycemic control causing chronic abdominal bloating /discomfort and pain cont Reglan , change the dose to pre meal cont bowel regimen (10) Hypertension: cont out pt meds (11) Hyperlipidemia: cont statin (12) Bipolar disorder: cont out pt meds (13) DVT prophylaxis: scd and teds ambulate DISPOSITION : Plan for discharge home tomorrow if remains medically stable Subjective Sitting up in bed tolerating diet feels much better today lower abdominal c hronic pain improved, able to have bowel movement yesterday Physical Exam Constitutional: + ill appearing; no acute distress Eyes: PERRL, conjunctivae normal, anicteric sclerae ENMT: external ear and nose normal, oropharynx normal Neck: trachea midline, no thyromegaly Respiratory: normal respiratory effort, lungs clear to auscultation Cardiovascular: RRR, no murmur, no edema Gastrointestinal (Abdomen): Inspection/Auscultation: + abdomen distended Percussion/Palpation: + abdomen tender (In left lower quadrant, no rebound/hypoactive bowel sounds) and abdomen soft Musculoskeletal: no cyanosis or clubbing, extremities motor strength 5/5 Skin: no rashes, warm and dry Neurologic: PERRL, EOMI, accommodation nl, no face palsy, no dysarthria Psychiatric: A+Ox3, euthymic affect Results & Data Vital Signs (Past 12 Hours) Vital Signs Temp Pulse Resp BP Pulse Ox 12/21/18 14:57 36.5 C 65 16 123/72 96 12/21/18 06:49 36.9 C 64 16 150/94 H 94 (1) Abdominal pain Abdominal location: unspecified location Qualified Code(s): R10.9 - Unspecified abdominal pain (2) Constipation Constipation type: unspecified constipation type Qualified Code(s): K59.00 - Constipation, unspecified
[2018-12-21] MEDS ORDERED: PHENAZOPYRIDINE HCL 100 MG TAB PO PRN (18:30)
[2018-12-22] MEDS: OXYCODONE HCL IR 5 MG TAB (IMMEDIATE RELEASE) PO PRN ×2 (02:06→10:46)
[2018-12-22] MEDS: HEPARIN SOD 5,000 UNIT/0.5 ML VIAL SQ SCH ×3 (05:51→21:49)
[2018-12-22] MEDS: CARVEDILOL 25 MG TAB PO SCH ×2 (06:44→21:46)
[2018-12-22] MEDS: CALCIUM ACETATE 667 MG CAP PO SCH ×3 (07:46→16:16)
[2018-12-22] MEDS: METOCLOPRAMIDE HCL 10 MG TABLET PO SCH ×3 (07:46→16:15)
[2018-12-22] MEDS: INSULIN ASPART 100 UNITS/ML 3 ML PEN SC SCH ×4 (08:48→21:46)
[2018-12-22] MEDS: ATORVASTATIN 40 MG TAB PO SCH (08:54)
[2018-12-22] MEDS: lamoTRIgine 100 MG TAB PO SCH (08:55)
[2018-12-22] MEDS: buPROPion HCl 100 MG TABLET PO SCH ×2 (08:55→21:46)
[2018-12-22] MEDS: ASPIRIN 81 MG ECTAB PO SCH (08:55)
[2018-12-22] MEDS: MULTIVITAMIN TAB PO SCH (08:56)
[2018-12-22] MEDS: QUETIAPINE FUMARATE 25 MG TABLET PO SCH ×2 (08:56→22:03)
[2018-12-22] MEDS: SERTRALINE HCL 50 MG TABLET PO SCH (08:57)
[2018-12-22] MEDS: TORSEMIDE 100 MG TAB PO SCH (08:57)
[2018-12-22] MEDS: PANTOprazole 40 MG TAB PO SCH (08:57)
[2018-12-22] MEDS: NEPHROCAPS PO SCH (08:57)
[2018-12-22] MEDS ORDERED: INSULIN GLARGINE SOLOSTAR 100 UNITS/ML 3 ML PEN SQ SCH ×3 (09:00→21:00)
[2018-12-22] MEDS: POLYETHYLENE (MIRALAX) 17 GM PACK PO PRN (12:25)
[2018-12-22] MEDS: PROMETHAZINE HCL 12.5 MG in SODIUM CHLORIDE 0.9% 50 ML IV PRN (13:38)
--- NOTE | 2018-12-22 14:00 | Pharmacy Report ---
Glycemic Control Consultation - Date of Service December 22, 2018 - Scope Scope: Glycemic Pharmacist consulted by Dr Rich on 12/21 for glycemic control and to write orders per [facility] inpatient glycemic control protocol - Objective Weight: 66.5 kg Accuchecks BSG (last 24hrs): 12/21/18 12/21/18 12/22/18 17:20 20:46 08:02 POC Glucose 108 H 277 H 178 H 12/22/18 12:10 POC Glucose 192 H HbA1c: Hemoglobin A1c 7.8 % (4.5-5.6) H 12/19/18 19:09 - Recent Pertinent Medications Outpatient Anti-diabetic Regimen: * Lantus 25 Qam and 15 Qpm, lispro 2 TID with sliding scale * A1c = 7.8 % 12/19 The patient is currently receiving: * Basal insulin: Lantus 15 units every 12 hours * Correctional Insulin: Novolog Correction per scale ACHS Goal Range: Low 140 mg/dL - High 180 mg/dL Correction Factor: 25 mg/dL/unit * Prandial insulin: Per carb ratio of 1 unit per 15 grams CHO consumed Risk Factors for Insulin Resistance: * Diet: T1DM - Assessment & Plan Assessment & Plan: ASSESSMENT: * 48 year old with hyperglycemic hyperosmolar nonketotic coma on admission. Started on insulin drip/transitioned off in about 24 hours * Last two days has been off insulin drip, received about ~45 units each day (of which 30-35 have been basal) * Fasting BSG this morning 178 mg/dL - will provide a scale adjustment for Lantus for this evening based upon BSG to provide better fasting coverage * Noticed BSGs trending up during meals - will tighten CR PLAN FOR INPATIENT GLYCEMIC CONTROL: * Basal insulin * Lantus -increase to 18 units this morning * Lantus HS per scale (<200 - 15 units, >/=200 - 18 units) * Bolus insulin - tighten * NovoLog per scale ACHS or Q6hrs while NPO * Goal Range: Low 120 mg/dL - High 160 mg/dL * Correction Factor: 25 mg/dL/unit * Nutritional / Prandial insulin per carb ratio of 1 unit per 12 grams CHO consumed * Please note that the plan above was derived based on current level of insulin resistance and hospital stress. These recommendations are appropriate for inpatient admission only. Plan of care upon discharge will need to be reassessed to avoid potential outpatient hypo/hyperglycemia. Thank you.
--- NOTE | 2018-12-22 15:47 | Hospitalist Progress Note ---
Date of Service December 22, 2018 Assessment & Plan (1) Hyperglycemic hyperosmolar nonketotic coma: Resolved, BSG improved Presented with HHS without,-Type 1 DM On admission, glucose 1023, troponin , beta hydroxybutyric acid and TSH WNL, lipase WNL. BSG improved with IV insulin infusion transitioned to SC insulin regimen Based she remains stable, patient is counseled for dietary modification medication compliance (2) Abdominal pain: Has chronic lower abdominal pain for gastroparesis With some worsening abdominal pain today Continue stool softeners /Reglan before meals pt reports of chronic abdominal pain , worsening of symptom for past few days with hx of severe diabetic gastroparesis worsening of presentation due to ongoing constipation (3) Constipation: Resolved with bowel movement, Continue bowel regimen This is a 48-year-old female who has a significant past medical history of T1 DM, ESRD on HD /, chronic diastolic CHF, HTN, HLD, gastroparesis, recent 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 Of significance patient had recent hospitalization at [facility] on 11/04 to 11/07/2018 for viral bronchitis, elevated blood sugars, nausea and vomiting related to gastroparesis. She was subsequently rehospitalized on 11/11 to 11/24/2018 secondary to severe metabolic acidosis, DKA, central line associated bloodstream infection with Leclercia adecaarboxylata tx with IV cefalozin x 2 weeks. During hospitalization while at HD she had unresponsive episode, MRI was performed which revealed an acute ischemic left basal ganglia CVA. Due to her bacteremia she had central line removed. Urinalysis not consistent with infection. CT scan of abdomen pelvis: Revealed moderate constipation, hepatomegaly, enlarged heart with intralobular septal thickening consistent with mild congestive heart failure, circumferential thickening of bladder wall possibly secondary to cystitis. Patient is being admitted to PCU for HHS, abdominal pain likely in the setting of constipation, Diastolic CHF exac/volume overload, ESRD will need HD tomorrow Etiology of HHS uncertain at this time -infectious work-up pending (4) ESRD (end stage renal disease) on dialysis: ESRD due to diabetic nephropathy ( Type 1 DM ) on chronic HD / on [facility] , follows with Nephrology with [facility] no evidence of vol overload Nephrology consulted -got her scheduled HD yesterday (5) DM type 1 (diabetes mellitus, type 1): poorly controlled with multiple complications _ESRD on HD /severe diabetic nephropathy/neuropathy /gastroparesis hx of DKA in past admitted with HHS requiring IV insulin cont Sub q insulin regimen Pharmacy glycemic management art educator cosnulted (6) Diastolic heart failure: (7) Anemia due to chronic kidney disease: (8) CVA (cerebral vascular accident): patient had recent hospitalization at [facility] on 11/04 to 11/07/2018 for viral bronchitis, elevated blood sugars, nausea and vomiting related to gastroparesis. She was subsequently rehospitalized on 11/11 to 11/24/2018 secondary to severe metabolic acidosis, DKA, central line associated bloodstream infection with Leclercia adecaarboxylata tx with IV cefalozin x 2 weeks. During hospitalization while at HD she had unresponsive episode, MRI was performed which revealed an acute ischemic left basal ganglia CVA. cont aspirin / /statin (9) Diabetic gastroparesis: due to complication of Type 1 Dm with poor glycemic control causing chronic abdominal bloating /discomfort and pain cont Reglan , change the dose to pre meal cont bowel regimen (10) Hypertension: cont out pt meds (11) Hyperlipidemia: cont statin (12) Bipolar disorder: cont out pt meds (13) DVT prophylaxis: scd and teds ambulate DISPOSITION : Plan for discharge home tomorrow if remains medically stable Subjective Complaints of worsening of lower abdominal pain and nausea, Required IV morphine, Zofran not helping much Reglan pre-meal ordered scheduled Physical Exam Constitutional: + ill appearing; no acute distress Eyes: PERRL, conjunctivae normal, anicteric sclerae ENMT: external ear and nose normal, oropharynx normal Neck: trachea midline, no thyromegaly Respiratory: normal respiratory effort, lungs clear to auscultation Cardiovascular: RRR, no murmur, no edema Gastrointestinal (Abdomen): Inspection/Auscultation: + abdomen distended Percussion/Palpation: + abdomen tender (In left lower quadrant, no rebound/hypoactive bowel sounds) and abdomen soft Musculoskeletal: no cyanosis or clubbing, extremities motor strength 5/5 Skin: no rashes, warm and dry Neurologic: PERRL, EOMI, accommodation nl, no face palsy, no dysarthria Psychiatric: A+Ox3, euthymic affect Results & Data Vital Signs (Past 12 Hours) Vital Signs Temp Pulse Pulse Pulse Resp BP Pulse Ox 12/22/18 15:03 36.6 C 64 16 161/73 H 96 12/22/18 12:00 36.7 C 65 12 114/71 98 12/22/18 07:50 36.6 C 68 12 160/72 H 98 12/22/18 06:42 68 146/85 H 12/22/18 03:48 71 189/69 H 93 (1) Abdominal pain Abdominal location: unspecified location Qualified Code(s): R10.9 - Unspecified abdominal pain (2) Constipation Constipation type: unspecified constipation type Qualified Code(s): K59.00 - Constipation, unspecified
[2018-12-22] MEDS: MoRPHine SULFATE 2 MG/ML CARP IV PRN ×2 (16:29→21:08)
[2018-12-22] MEDS ORDERED: INSULIN GLARGINE SOLOSTAR 100 UNITS/ML 3 ML PEN SC STA (21:26)
[2018-12-22] MEDS: DOCUSATE SODIUM 100 MG CAP PO SCH (21:46)
[2018-12-23] MEDS: MoRPHine SULFATE 2 MG/ML CARP IV PRN ×2 (01:10→05:40)
[2018-12-23] MEDS: HEPARIN SOD 5,000 UNIT/0.5 ML VIAL SQ SCH ×3 (05:41→21:45)
[2018-12-23 07:33] LABS: Hematocrit (blood only) 35.9 % (37-47); Mean Corpuscular Hgb Conc 33.4 g/dL (32-36); Mean Corpuscular Volume 88.2 fL (80-100); Mean Platelet Volume 9.8 fL (7.4-10.4); Platelet Count 265 K/uL (130-400); RDW Coefficient of Variation 15.8 % (11.5-14.5); RDW Standard Deviation 51.2 fL (36.4-46.3); Red Blood Count 4.07 M/uL (4.2-5.4); White Blood Count 4.29 K/uL (4.8-10.8)
[2018-12-23] MEDS: DOCUSATE SODIUM 100 MG CAP PO SCH ×2 (08:10→21:42)
[2018-12-23] MEDS: CARVEDILOL 25 MG TAB PO SCH ×2 (08:10→21:42)
[2018-12-23] MEDS: MULTIVITAMIN TAB PO SCH (08:10)
[2018-12-23] MEDS: METOCLOPRAMIDE HCL 10 MG TABLET PO SCH ×3 (08:10→19:00)
[2018-12-23] MEDS: NEPHROCAPS PO SCH (08:11)
[2018-12-23] MEDS: ASPIRIN 81 MG ECTAB PO SCH (08:11)
[2018-12-23] MEDS: TORSEMIDE 100 MG TAB PO SCH (08:11)
[2018-12-23] MEDS: lamoTRIgine 100 MG TAB PO SCH (08:11)
[2018-12-23] MEDS: SERTRALINE HCL 50 MG TABLET PO SCH (08:11)
[2018-12-23] MEDS: buPROPion HCl 100 MG TABLET PO SCH ×2 (08:12→21:45)
[2018-12-23] MEDS: OXYCODONE HCL IR 5 MG TAB (IMMEDIATE RELEASE) PO PRN ×3 (08:16→19:00)
[2018-12-23] MEDS ORDERED: HEPARIN SOD (PORCINE) 1000 UNIT/ML 10 ML VIAL IV ONE (08:33)
[2018-12-23] MEDS ORDERED: SODIUM CHLORIDE 0.9% 1000ML 1,000 ML IV PRN (08:33)
--- NOTE | 2018-12-23 08:47 | Nephrology Progress Note ---
Date of Service December 23, 2018 Assessment & Plan (1) ESRD (end stage renal disease) on dialysis: continue TRSat HD using avf; goal 2.5 L fluid removal today using avf. BG have improved; most recent chemistries acceptable. next HD tentatively for 12/25 or as clinical status dictates (2) Abdominal pain: per primary service; avoid fleets based products to treat constipation (3) Anemia due to chronic kidney disease: hgb 12 today; monitor; no epo w/ HD today monitor for need Present on Admission?: Yes Subjective ongoing c/o abd pain. no sob, no cramps or edema. tolerated dialysis on weekend Review of Systems Review of Systems: All systems reviewed & are unremarkable except as noted in HPI & below Physical Exam Constitutional: well developed and well nourished; no acute distress sitting on side of bed on ra starting on regular breakfast Eyes: EOM intact bilaterally ENMT: Ears: no external ear abnormality Nose: no external nose abnormality Mouth: + dry oral mucous membranes Neck: no nuchal rigidity Respiratory: normal respiratory effort Auscultation: + diminished lung sounds Cardiovascular: Rate/Rhythm: regular rate and regular rhythm Heart Sounds: + murmur Extremities: + edema (trace) and + AV fistula (+t/b) Gastrointestinal (Abdomen): Inspection/Auscultation: normal bowel sounds Percussion/Palpation: + abdomen tender (diffuse tenderness to moderate palpation) and abdomen soft Musculoskeletal: no cyanosis or clubbing, extremities motor strength 5/5 Extremities: strength 5/5 throughout Skin: no rashes, warm and dry Psychiatric: Orientation: alert and oriented x 3 Apperance: appropriately groomed Eye Contact: + fair eye contact Affect: + depressed affect Results & Data Vital Signs (Past 12 Hours) Vital Signs Temp Pulse Pulse Resp BP Pulse Ox 12/23/18 07:02 36.7 C 68 16 129/67 97 12/22/18 23:14 36.5 C 66 14 168/74 H 97 12/22/18 21:45 65 18 160/74 H 93 Laboratory Results Abnormal lab results 12/22/18 12/22/18 12/22/18 Range/Units 12:10 17:05 17:06 WBC (4.8-10.8) K/uL RBC (4.2-5.4) M/uL Hct (37-47) % RDW Std Deviation (36.4-46.3) fL RDW Coeff of Lebron (11.5-14.5) % POC Glucose 192 H 52 L* 49 L* (70-99) 12/22/18 12/22/18 12/22/18 Range/Units 17:21 17:24 20:55 WBC (4.8-10.8) K/uL RBC (4.2-5.4) M/uL Hct (37-47) % RDW Std Deviation (36.4-46.3) fL RDW Coeff of Lebron (11.5-14.5) % POC Glucose 47 L* 58 L* 274 H (70-99) 12/23/18 12/23/18 Range/Units 07:16 08:12 WBC 4.29 L (4.8-10.8) K/uL RBC 4.07 L (4.2-5.4) M/uL Hct 35.9 L (37-47) % RDW Std Deviation 51.2 H (36.4-46.3) fL RDW Coeff of Lebron 15.8 H (11.5-14.5) % POC Glucose 111 H (70-99) (1) Abdominal pain Abdominal location: unspecified location Qualified Code(s): R10.9 - Unspecified abdominal pain (2) Anemia due to chronic kidney disease Chronic kidney disease stage: on chronic dialysis Qualified Code(s): N18.6 - End stage renal disease; D63.1 - Anemia in chronic kidney disease; Z99.2 - Dependence on renal dialysis
[2018-12-23] MEDS: PANTOprazole 40 MG TAB PO SCH (08:59)
[2018-12-23] MEDS: ATORVASTATIN 40 MG TAB PO SCH (08:59)
[2018-12-23] MEDS: QUETIAPINE FUMARATE 25 MG TABLET PO SCH ×2 (08:59→21:45)
[2018-12-23] MEDS ORDERED: INSULIN GLARGINE SOLOSTAR 100 UNITS/ML 3 ML PEN SQ SCH ×2 (09:00→21:00)
[2018-12-23] MEDS: INSULIN HUMAN REGULAR SC SCH ×4 (09:02→21:43)
[2018-12-23] MEDS: POLYETHYLENE (MIRALAX) 17 GM PACK PO PRN ×2 (09:23→21:50)
[2018-12-23] MEDS: BISACODYL 5 MG TABEC PO SCH (09:23)
[2018-12-23] MEDS: PROMETHAZINE HCL 12.5 MG in SODIUM CHLORIDE 0.9% 50 ML IV PRN (09:31)
[2018-12-23] MEDS: CALCIUM ACETATE 667 MG CAP PO SCH ×3 (11:11→19:00)
--- NOTE | 2018-12-23 11:33 | Pharmacy Report ---
Pharmacy Glycemic Short Note 2 - Date of Service December 23, 2018 - Glycemic Short BSG Results (Last 24 hours): 12/22/18 12/22/18 12/22/18 12:10 17:05 17:06 POC Glucose 192 H 52 L* 49 L* 12/22/18 12/22/18 12/22/18 17:21 17:24 17:38 POC Glucose 47 L* 58 L* 72 12/22/18 12/23/18 20:55 08:12 POC Glucose 274 H 111 H ASSESSMENT: 12/23: * Patient received total of 44 units of insulin yesterday, of which 28 were basal insulin * Did have hypoglycemia around dinner last evening with BSG of 47 and after 15 gm CHO went up to 72 (likely related to too much carb coverage with meals) * Evening BSG up to 274 mg/dL - Fasting this morning is 111 mg/dL - will scale back Lantus and provide tighter carb coverage with breakfast, looser with lunchtime (appears this worked out well on prior admission) to help prevent hypoglycemia later on in the day * Add small scale for Lantus for tonight 12/22: * 48 year old with hyperglycemic hyperosmolar nonketotic coma on admission. Started on insulin drip/transitioned off in about 24 hours * Last two days has been off insulin drip, received about ~45 units each day (of which 30-35 have been basal) * Fasting BSG this morning 178 mg/dL - will provide a scale adjustment for Lantus for this evening based upon BSG to provide better fasting coverage * Noticed BSGs trending up during meals - will tighten CR PLAN FOR INPATIENT GLYCEMIC CONTROL: * Basal insulin * Lantus 15 units Qam * Lantus HS per scale (<200 - 0 units, >/=200 - 5 units) * Bolus insulin - adjusted * NovoLog per scale ACHS or Q6hrs while NPO * Goal Range: Low 120 mg/dL - High 160 mg/dL * Correction Factor: 70 mg/dL/unit with breakfast. 90 mg/dL/unit all other checks * Nutritional / Prandial insulin per carb ratio of 1 unit per 10 grams CHO consumed with breakfast, 1 units per 15 gms all other checks
--- NOTE | 2018-12-23 18:22 | Hospitalist Progress Note ---
Date of Service December 23, 2018 Assessment & Plan (1) Hyperglycemic hyperosmolar nonketotic coma: Resolved, BSG improved Presented with HHS without,-Type 1 DM On admission, glucose 1023, troponin , beta hydroxybutyric acid and TSH WNL, lipase WNL. BSG improved with IV insulin infusion transitioned to SC insulin regimen , patient is counseled for dietary modification medication compliance (2) Abdominal pain: Continues to have ongoing abdominal pain and discomfort Will order x-ray of KUB to assess for possible ileus Has chronic lower abdominal pain for gastroparesis With some worsening abdominal pain today Continue stool softeners /Reglan before meals pt reports of chronic abdominal pain , worsening of symptom for past few days with hx of severe diabetic gastroparesis worsening of presentation due to ongoing constipation (3) Constipation: Ordered for x-ray of KUB for possible ileus Continue bowel regimen (4) ESRD (end stage renal disease) on dialysis: ESRD due to diabetic nephropathy ( Type 1 DM ) on chronic HD // on [facility] , follows with Nephrology with [facility] no evidence of vol overload Nephrology consulted -patient had usual dialysis today (5) DM type 1 (diabetes mellitus, type 1): poorly controlled with multiple complications _ESRD on HD /severe diabetic nephropathy/neuropathy /gastroparesis hx of DKA in past admitted with HHS requiring IV insulin cont Sub q insulin regimen Pharmacy glycemic management concession stand attendant cosnulted (6) Diastolic heart failure: (7) Anemia due to chronic kidney disease: (8) CVA (cerebral vascular accident): patient had recent hospitalization at [facility] on 11/04 to 11/07/2018 for viral bronchitis, elevated blood sugars, nausea and vomiting related to gastroparesis. She was subsequently rehospitalized on 11/11 to 11/24/2018 secondary to severe metabolic acidosis, DKA, central line associated bloodstream infection with Leclercia adecaarboxylata tx with IV cefalozin x 2 weeks. During hospitalization while at HD she had unresponsive episode, MRI was performed which revealed an acute ischemic left basal ganglia CVA. cont aspirin / /statin (9) Diabetic gastroparesis: due to complication of Type 1 Dm with poor glycemic control causing chronic abdominal bloating /discomfort and pain cont Reglan , change the dose to pre meal scheduled cont bowel regimen (10) Hypertension: cont out pt meds (11) Hyperlipidemia: cont statin (12) Bipolar disorder: cont out pt meds (13) DVT prophylaxis: scd and teds ambulate DISPOSITION : Plan for discharge home tomorrow if abdominal pain improves Subjective Continues to complain of abdominal pain, said did not had any bowel movement in spite of getting Dulcolax ,MiraLAX No nauseous after food no vomiting Had dialysis today Results & Data Vital Signs (Past 12 Hours) Vital Signs Temp Pulse Pulse Pulse Resp BP BP 12/23/18 17:51 37.2 C 66 66 122/62 122/62 12/23/18 17:20 65 112/56 L 12/23/18 17:00 64 122/61 12/23/18 16:40 65 128/63 12/23/18 16:20 65 92/46 L 12/23/18 16:00 64 104/49 L 12/23/18 15:43 116/55 L 12/23/18 15:00 148/76 H 12/23/18 14:40 68 139/71 12/23/18 14:20 37.1 C 68 12/23/18 07:02 36.7 C 68 16 129/67 Pulse Ox 12/23/18 17:51 12/23/18 17:20 12/23/18 17:00 12/23/18 16:40 12/23/18 16:20 12/23/18 16:00 12/23/18 15:43 12/23/18 15:00 12/23/18 14:40 12/23/18 14:20 12/23/18 07:02 97 (1) Anemia due to chronic kidney disease Chronic kidney disease stage: on chronic dialysis Qualified Code(s): N18.6 - End stage renal disease; D63.1 - Anemia in chronic kidney disease; Z99.2 - Dependence on renal dialysis (2) Abdominal pain Abdominal location: unspecified location Qualified Code(s): R10.9 - Unspecified abdominal pain (3) Constipation Constipation type: unspecified constipation type Qualified Code(s): K59.00 - Constipation, unspecified
[2018-12-23] MEDS: HEPARIN SOD (PORCINE) 1000 UNIT/ML 10 ML VIAL IV SCH ×2 (18:44→18:45)
[2018-12-24] MEDS: OXYCODONE HCL IR 5 MG TAB (IMMEDIATE RELEASE) PO PRN ×4 (01:06→18:52)
[2018-12-24] MEDS: HEPARIN SOD 5,000 UNIT/0.5 ML VIAL SQ SCH ×3 (05:58→21:07)
[2018-12-24] MEDS: METOCLOPRAMIDE HCL 10 MG TABLET PO SCH ×3 (07:53→16:58)
[2018-12-24] MEDS: DOCUSATE SODIUM 100 MG CAP PO SCH ×2 (08:16→21:06)
[2018-12-24] MEDS: BISACODYL 5 MG TABEC PO SCH (08:17)
[2018-12-24] MEDS: ACETAMINOPHEN 325 MG TAB PO PRN (08:17)
[2018-12-24] MEDS: CALCIUM ACETATE 667 MG CAP PO SCH ×3 (08:19→16:58)
[2018-12-24] MEDS: TORSEMIDE 100 MG TAB PO SCH (08:56)
[2018-12-24] MEDS: CARVEDILOL 25 MG TAB PO SCH ×2 (08:56→21:06)
[2018-12-24] MEDS: ASPIRIN 81 MG ECTAB PO SCH (08:56)
[2018-12-24] MEDS: MULTIVITAMIN TAB PO SCH (08:57)
[2018-12-24] MEDS: lamoTRIgine 100 MG TAB PO SCH (08:57)
[2018-12-24] MEDS: ATORVASTATIN 40 MG TAB PO SCH (08:57)
[2018-12-24] MEDS: PANTOprazole 40 MG TAB PO SCH (08:58)
[2018-12-24] MEDS: NEPHROCAPS PO SCH (08:58)
[2018-12-24] MEDS: SERTRALINE HCL 50 MG TABLET PO SCH (08:58)
[2018-12-24] MEDS: QUETIAPINE FUMARATE 25 MG TABLET PO SCH ×2 (08:58→21:07)
[2018-12-24] MEDS: buPROPion HCl 100 MG TABLET PO SCH ×2 (08:58→21:07)
[2018-12-24] MEDS ORDERED: INSULIN GLARGINE SOLOSTAR 100 UNITS/ML 3 ML PEN SQ SCH (09:00)
[2018-12-24] MEDS: INSULIN HUMAN REGULAR SC SCH ×5 (09:09→21:07)
[2018-12-24] MEDS: POLYETHYLENE (MIRALAX) 17 GM PACK PO PRN (09:18)
[2018-12-24] MEDS: MoRPHine SULFATE 2 MG/ML CARP IV PRN (13:07)
--- NOTE | 2018-12-24 15:25 | Pharmacy Report ---
Pharmacy Glycemic Short Note 2 - Date of Service December 24, 2018 - Glycemic Short BSG Results (Last 24 hours): 12/23/18 12/23/18 12/24/18 18:30 21:32 08:13 POC Glucose 118 H 198 H 199 H 12/24/18 12:06 POC Glucose 173 H ASSESSMENT: 12/24: * Patient received total of 25 units of insulin yesterday, of which 15 were basal insulin * Fasting this morning 199 mg/dL - will titrate up to 17 units of basal insulin * Will continue same CF/CR as BSGs are improving 12/23: * Patient received total of 44 units of insulin yesterday, of which 28 were basal insulin * Did have hypoglycemia around dinner last evening with BSG of 47 and after 15 gm CHO went up to 72 (likely related to too much carb coverage with meals) * Evening BSG up to 274 mg/dL - Fasting this morning is 111 mg/dL - will scale back Lantus and provide tighter carb coverage with breakfast, looser with lunchtime (appears this worked out well on prior admission) to help prevent hypoglycemia later on in the day * Add small scale for Lantus for tonight 12/22: * 48 year old with hyperglycemic hyperosmolar nonketotic coma on admission. Started on insulin drip/transitioned off in about 24 hours * Last two days has been off insulin drip, received about ~45 units each day (of which 30-35 have been basal) * Fasting BSG this morning 178 mg/dL - will provide a scale adjustment for Lantus for this evening based upon BSG to provide better fasting coverage * Noticed BSGs trending up during meals - will tighten CR PLAN FOR INPATIENT GLYCEMIC CONTROL: * Basal insulin * Lantus 17 units Qam * Bolus insulin - no change * NovoLog per scale ACHS or Q6hrs while NPO * Goal Range: Low 120 mg/dL - High 160 mg/dL * Correction Factor: 70 mg/dL/unit with breakfast. 90 mg/dL/unit all other checks * Nutritional / Prandial insulin per carb ratio of 1 unit per 10 grams CHO consumed with breakfast, 1 units per 15 gms all other checks
--- NOTE | 2018-12-24 18:25 | XRay Report ---
KUB CLINICAL HISTORY: Constipation. Generalized abdominal pain. FINDINGS: 2 AP supine abdominal radiographs are correlated with abdominal CT dated 12/19/2018. Cholecy stectomy clips are seen in the right upper quadrant. There is a nonobstructed abdominal bowel gas pat tern noting moderate colonic fecal retention. No evidence of intraperitoneal free air is seen on thes e supine views. An intrauterine device is present in the pelvis. There is no radiographic evidence of nephrolithiasis. Phleboliths are observed in the pelvis. The bony structures appear intact. The lung bases are clear as imaged. IMPRESSION: Moderate constipation. Electronically signed by: Davy Willson M.D. 12/24/2018 6:23 PM
--- NOTE | 2018-12-24 20:34 | Hospitalist Progress Note ---
Date of Service December 24, 2018 Assessment & Plan (1) Hyperglycemic hyperosmolar nonketotic coma: Present on admission with glucose 1023 Was starting on IV insulin infusion, then transitioned to SC insulin regimen BS has been managed by pharmacy Continue monitor BS (2) Abdominal pain: (3) Constipation: Has not had a BM since admitted KUB showed moderate constipation. On Dulcolax and colace and miralax Will give dulcolax GA Continue monitor (4) ESRD (end stage renal disease) on dialysis: ESRD due to diabetic nephropathy ( Type 1 DM ) on chronic HD // on [facility] , follows with Nephrology with [facility] no evidence of vol overload Nephrology on board Next HD tomorrow (5) DM type 1 (diabetes mellitus, type 1): HgA1c 7.8 Pharmacy on board for glycemic management adaptive physical educator on board Continue insulin (6) Diastolic heart failure: No sign of CHF Continue torsemide Stable (7) Anemia due to chronic kidney disease: Stable (8) CVA (cerebral vascular accident): Continue statin, aspirin and plavix stable (9) Diabetic gastroparesis: due to complication of Type 1 Dm with poor glycemic control causing chronic abdominal bloating /discomfort and pain cont Reglan , change the dose to pre meal scheduled cont bowel regimen (10) Hypertension: cont out pt meds (11) Hyperlipidemia: cont statin (12) Bipolar disorder: cont out pt meds (13) DVT prophylaxis: On heparin subq DISPOSITION : Possible discharge home tomorrow Subjective Pt was seen and examined Lying in bed with no distress Pt said that she continue to have abdominal pain She said that she has not had a bowel movement in the last few days She said that she feels nauseated Denies any chest pain palpitation, dizziness and SOB Physical Exam Physical Exam: General- No acute distress Head- atraumatic Eyes- PERRL, EOMI, ENT- oropharynx clear Neck- supple, no JVD Lungs- clear to auscultation Heart- regular rhythm; no murmur Abdomen- normal bowel sounds, +tender Extremities- no calf tenderness Neuro- alert, oriented x 3; PERRL, EOMI; no facial palsy; no dysarthria Skin- warm & dry Results & Data Vital Signs (Past 12 Hours) Vital Signs Temp Pulse Resp BP Pulse Ox 12/24/18 15:44 36.8 C 67 18 148/64 H 97 (1) Anemia due to chronic kidney disease Chronic kidney disease stage: on chronic dialysis Qualified Code(s): N18.6 - End stage renal disease; D63.1 - Anemia in chronic kidney disease; Z99.2 - Dependence on renal dialysis (2) Abdominal pain Abdominal location: unspecified location Qualified Code(s): R10.9 - Unspecified abdominal pain (3) Constipation Constipation type: unspecified constipation type Qualified Code(s): K59.00 - Constipation, unspecified
[2018-12-24] MEDS ORDERED: BISACODYL 10 MG SUPP PR STA (20:44)
[2018-12-25] MEDS: OXYCODONE HCL IR 5 MG TAB (IMMEDIATE RELEASE) PO PRN ×3 (00:15→19:34)
[2018-12-25] MEDS: HEPARIN SOD 5,000 UNIT/0.5 ML VIAL SQ SCH ×3 (05:51→21:04)
[2018-12-25] MEDS: METOCLOPRAMIDE HCL 10 MG TABLET PO SCH ×3 (08:11→15:17)
[2018-12-25] MEDS: CALCIUM ACETATE 667 MG CAP PO SCH ×3 (08:11→15:17)
[2018-12-25] MEDS: ASPIRIN 81 MG ECTAB PO SCH (08:12)
[2018-12-25] MEDS: DOCUSATE SODIUM 100 MG CAP PO SCH ×2 (08:12→21:10)
[2018-12-25] MEDS: MULTIVITAMIN TAB PO SCH (08:12)
[2018-12-25] MEDS: ATORVASTATIN 40 MG TAB PO SCH (08:12)
[2018-12-25] MEDS: lamoTRIgine 100 MG TAB PO SCH (08:12)
[2018-12-25] MEDS: PANTOprazole 40 MG TAB PO SCH (08:13)
[2018-12-25] MEDS: QUETIAPINE FUMARATE 25 MG TABLET PO SCH ×2 (08:13→21:10)
[2018-12-25] MEDS: SERTRALINE HCL 50 MG TABLET PO SCH (08:13)
[2018-12-25] MEDS: buPROPion HCl 100 MG TABLET PO SCH ×2 (08:13→21:10)
[2018-12-25] MEDS: NEPHROCAPS PO SCH (08:13)
[2018-12-25] MEDS: BISACODYL 5 MG TABEC PO SCH (08:28)
[2018-12-25] MEDS ORDERED: INSULIN GLARGINE SOLOSTAR 100 UNITS/ML 3 ML PEN SQ SCH ×3 (09:00→21:00)
[2018-12-25] MEDS: INSULIN HUMAN REGULAR SC SCH ×6 (09:11→21:04)
[2018-12-25] MEDS ORDERED: HEPARIN SOD (PORCINE) 1000 UNIT/ML 10 ML VIAL IV SCH (09:13)
[2018-12-25] MEDS ORDERED: SODIUM CHLORIDE 0.9% 1000ML 1,000 ML IV PRN (09:13)
[2018-12-25 09:42] LABS: BUN Creatinine Ratio 8.3 (10-20); Calcium 8.7 mg/dl (8.5-10.1); Est GFR (Non-African American) 11.2; Potassium 4.6 mmol/L (3.5-5.1)
[2018-12-25] MEDS: TORSEMIDE 100 MG TAB PO SCH (12:15)
[2018-12-25] MEDS: CARVEDILOL 25 MG TAB PO SCH ×2 (12:15→21:10)
[2018-12-25] MEDS: MoRPHine SULFATE 2 MG/ML CARP IV PRN (13:25)
--- NOTE | 2018-12-25 14:04 | Pharmacy Report ---
Pharmacy Glycemic Short Note 2 - Date of Service December 25, 2018 - Glycemic Short BSG Results (Last 24 hours): 12/24/18 12/24/18 12/25/18 17:19 20:57 07:54 Glucose POC Glucose 130 H 108 H 325 H* 12/25/18 12/25/18 12/25/18 07:55 08:39 12:00 Glucose 370 H* POC Glucose 320 H* 321 H* 12/25/18 12:01 Glucose POC Glucose 330 H* ASSESSMENT: 12/25 * Patient received 29 units of insulin yesterday with good glycemic control * Fasting this morning, however, was significantly elevated 320, suspect patient has become basal deficient * Will increase lantus for today * Prandial BSG continued to be elevated at lunch, considered iv bolus but patient to go to dialysis later this afternoon, therefore will hold off for now. Did tighten correction factor for today's lunch only considering hyperglycemia 12/24: * Patient received total of 25 units of insulin yesterday, of which 15 were basal insulin * Fasting this morning 199 mg/dL - will titrate up to 17 units of basal insulin * Will continue same CF/CR as BSGs are improving 12/23: * Patient received total of 44 units of insulin yesterday, of which 28 were basal insulin * Did have hypoglycemia around dinner last evening with BSG of 47 and after 15 gm CHO went up to 72 (likely related to too much carb coverage with meals) * Evening BSG up to 274 mg/dL - Fasting this morning is 111 mg/dL - will scale back Lantus and provide tighter carb coverage with breakfast, looser with lunchtime (appears this worked out well on prior admission) to help prevent hypoglycemia later on in the day * Add small scale for Lantus for tonight 12/22: * 48 year old with hyperglycemic hyperosmolar nonketotic coma on admission. Started on insulin drip/transitioned off in about 24 hours * Last two days has been off insulin drip, received about ~45 units each day (of which 30-35 have been basal) * Fasting BSG this morning 178 mg/dL - will provide a scale adjustment for Lantus for this evening based upon BSG to provide better fasting coverage * Noticed BSGs trending up during meals - will tighten CR PLAN FOR INPATIENT GLYCEMIC CONTROL: * Basal insulin * Lantus 20 units Qam, Scale for PM * hold if <100, 4 units if 100-200, 8 units >200 * Bolus insulin - no change * NovoLog per scale ACHS or Q6hrs while NPO * Goal Range: Low 120 mg/dL - High 160 mg/dL * Correction Factor: 70 mg/dL/unit with breakfast. 90 mg/dL/unit all other checks * Nutritional / Prandial insulin per carb ratio of 1 unit per 10 grams CHO consumed with breakfast, 1 units per 15 gms all other checks
--- NOTE | 2018-12-25 18:14 | Hospitalist Progress Note ---
Date of Service December 25, 2018 Assessment & Plan (1) Hyperglycemic hyperosmolar nonketotic coma: Present on admission with glucose 1023 Was starting on IV insulin infusion, then transitioned to SC insulin regimen BS has been managed by pharmacy Continue monitor BS (2) Abdominal pain: (3) Constipation: Has not had a BM since admitted KUB showed moderate constipation. Had a BM today Continue Dulcolax and colace and miralax Continue monitor (4) ESRD (end stage renal disease) on dialysis: ESRD due to diabetic nephropathy ( Type 1 DM ) on chronic HD // on [facility] , follows with Nephrology with [facility] no evidence of vol overload Nephrology on board Next HD today (5) DM type 1 (diabetes mellitus, type 1): HgA1c 7.8 Pharmacy on board for glycemic management health promotion educator on board Continue insulin (6) Diastolic heart failure: No sign of CHF Continue torsemide Stable (7) Anemia due to chronic kidney disease: Stable (8) CVA (cerebral vascular accident): Continue statin, aspirin and plavix stable (9) Diabetic gastroparesis: due to complication of Type 1 Dm with poor glycemic control causing chronic abdominal bloating /discomfort and pain cont Reglan , change the dose to pre meal scheduled cont bowel regimen (10) Hypertension: cont out pt meds (11) Hyperlipidemia: cont statin (12) Bipolar disorder: cont out pt meds (13) DVT prophylaxis: On heparin subq DISPOSITION : Possible discharge home tomorrow Subjective Pt was seen and examined Lying in bed with no distress Pt said that she continues to have pain, but pain slightly improves She has a bowel movement today She said that she tolerated her diet Denies any chest pain, palpitation, dizziness and N/V Physical Exam Physical Exam: General- No acute distress Head- atraumatic Eyes- PERRL, EOMI, ENT- oropharynx clear Neck- supple, no JVD Lungs- clear to auscultation Heart- regular rhythm; no murmur Abdomen- normal bowel sounds, +tender Extremities- no calf tenderness Neuro- alert, oriented x 3; PERRL, EOMI; no facial palsy; no dysarthria Skin- warm & dry Results & Data Vital Signs (Past 12 Hours) Vital Signs Temp Pulse Resp BP Pulse Ox 12/25/18 15:01 36.8 C 67 16 137/61 95 12/25/18 06:56 36.7 C 70 16 153/77 H 92 (1) Anemia due to chronic kidney disease Chronic kidney disease stage: on chronic dialysis Qualified Code(s): N18.6 - End stage renal disease; D63.1 - Anemia in chronic kidney disease; Z99.2 - Dependence on renal dialysis (2) Abdominal pain Abdominal location: unspecified location Qualified Code(s): R10.9 - Unspecified abdominal pain (3) Constipation Constipation type: unspecified constipation type Qualified Code(s): K59.00 - Constipation, unspecified
[2018-12-25] MEDS: HEPARIN SOD (PORCINE) 1000 UNIT/ML 10 ML VIAL IV SCH ×2 (19:58→20:32)
--- NOTE | 2018-12-25 21:57 | Nephrology Progress Note ---
Date of Service December 25, 2018 Assessment & Plan (1) ESRD (end stage renal disease) on dialysis: continue TRSat HD using avf; goal 2.5 L fluid removal today using avf. BG have improved; most recent chemistries acceptable. next HD tentatively for 12/25 or as clinical status dictates. low sodium reflects both elevated BG and volume OL (2) Abdominal pain: per primary service; avoid fleets based products to treat constipation; challenging chronic abd pain c/b psych issues (3) Anemia due to chronic kidney disease: hgb 12 today; monitor; no epo w/ HD today monitor for need Subjective seen on round smidday; sitting in bed w/ empty lunch tray; endorses abd pain, chest pain, sob endorses cough Review of Systems Respiratory: + cough and + dyspnea Cardiovascular: + chest pain Gastrointestinal: + abdominal pain Physical Exam Constitutional: well developed and well nourished; no acute distress sitting on ra nad Eyes: EOM intact bilaterally ENMT: Ears: no external ear abnormality Nose: no external nose abnormality Mouth: + dry oral mucous membranes Neck: no nuchal rigidity Respiratory: normal respiratory effort Auscultation: lungs clear to auscultation bilaterally and + diminished lung sounds Cardiovascular: Rate/Rhythm: regular rate and regular rhythm Heart Sounds: + murmur Extremities: + edema (trace at most) and + AV fistula (+t/b) Gastrointestinal (Abdomen): Inspection/Auscultation: normal bowel sounds Percussion/Palpation: + abdomen tender (diffuse tenderness to moderate palpation) and abdomen soft Musculoskeletal: no cyanosis or clubbing, extremities motor strength 5/5 Extremities: strength 5/5 throughout Skin: no rashes, warm and dry Neurologic: teran, fluent speech Psychiatric: Orientation: alert and oriented x 3 Apperance: appropriately groomed Eye Contact: + fair eye contact Affect: + depressed affect Results & Data Vital Signs (Past 12 Hours) Vital Signs Temp Pulse Pulse Resp BP Pulse Ox 12/25/18 19:30 36.8 C 74 18 162/67 H 95 12/25/18 19:28 37.1 C 66 116/62 12/25/18 17:00 37.1 C 56 L 12/25/18 15:01 36.8 C 67 16 137/61 95 Laboratory Results Abnormal lab results 12/25/18 12/25/18 12/25/18 Range/Units 07:54 07:55 08:39 Sodium 126 L (136-145) mmol/L Chloride 92 L (98-107) mmol/L BUN 36 H (7-18) mg/dl Creatinine 4.31 H (0.6-1.2) mg/dl BUN/Creatinine Ratio 8.3 L (10-20) Glucose 370 H* (70-99) mg/dl POC Glucose 325 H* 320 H* (70-99) 12/25/18 12/25/18 12/25/18 Range/Units 12:00 12:01 20:50 Sodium (136-145) mmol/L Chloride (98-107) mmol/L BUN (7-18) mg/dl Creatinine (0.6-1.2) mg/dl BUN/Creatinine Ratio (10-20) Glucose (70-99) mg/dl POC Glucose 321 H* 330 H* 128 H (70-99) (1) Abdominal pain Abdominal location: unspecified location Qualified Code(s): R10.9 - Unspecified abdominal pain (2) Anemia due to chronic kidney disease Chronic kidney disease stage: on chronic dialysis Qualified Code(s): N18.6 - End stage renal disease; D63.1 - Anemia in chronic kidney disease; Z99.2 - Dependence on renal dialysis
[2018-12-26] MEDS: HEPARIN SOD 5,000 UNIT/0.5 ML VIAL SQ SCH ×2 (06:09→13:59)
[2018-12-26 06:57] LABS: Hematocrit (blood only) 32.7 % (37-47); Mean Corpuscular Hgb Conc 33.6 g/dL (32-36); Mean Corpuscular Volume 87.4 fL (80-100); Mean Platelet Volume 9.7 fL (7.4-10.4); Platelet Count 247 K/uL (130-400); RDW Coefficient of Variation 15.1 % (11.5-14.5); RDW Standard Deviation 48.8 fL (36.4-46.3); Red Blood Count 3.74 M/uL (4.2-5.4)
[2018-12-26] MEDS: METOCLOPRAMIDE HCL 10 MG TABLET PO SCH ×3 (08:18→17:46)
[2018-12-26] MEDS: CALCIUM ACETATE 667 MG CAP PO SCH ×3 (08:18→17:46)
[2018-12-26] MEDS: ASPIRIN 81 MG ECTAB PO SCH (08:19)
[2018-12-26] MEDS: TORSEMIDE 100 MG TAB PO SCH (08:19)
[2018-12-26] MEDS: NEPHROCAPS PO SCH (08:20)
[2018-12-26] MEDS: PANTOprazole 40 MG TAB PO SCH (08:20)
[2018-12-26] MEDS: MULTIVITAMIN TAB PO SCH (08:20)
[2018-12-26] MEDS: SERTRALINE HCL 50 MG TABLET PO SCH (08:20)
[2018-12-26] MEDS: lamoTRIgine 100 MG TAB PO SCH (08:20)
[2018-12-26] MEDS: ATORVASTATIN 40 MG TAB PO SCH (08:20)
[2018-12-26] MEDS ORDERED: INSULIN GLARGINE SOLOSTAR 100 UNITS/ML 3 ML PEN SQ SCH ×2 (09:00)
[2018-12-26] MEDS ORDERED: INSULIN HUMAN REGULAR SC SCH (09:15)
[2018-12-26] MEDS: BISACODYL 5 MG TABEC PO SCH (09:57)
[2018-12-26] MEDS: QUETIAPINE FUMARATE 25 MG TABLET PO SCH (09:57)
[2018-12-26] MEDS: buPROPion HCl 100 MG TABLET PO SCH (09:57)
[2018-12-26] MEDS: CARVEDILOL 25 MG TAB PO SCH (09:58)
[2018-12-26] MEDS: DOCUSATE SODIUM 100 MG CAP PO SCH (09:58)
[2018-12-26] MEDS: INSULIN HUMAN REGULAR SC SCH ×2 (13:10→17:46)
--- NOTE | 2018-12-26 14:17 | Pharmacy Report ---
Pharmacy Glycemic Short Note 2 - Date of Service December 26, 2018 - Glycemic Short BSG Results (Last 24 hours): 12/25/18 12/25/18 12/26/18 16:46 20:50 08:12 POC Glucose 75 128 H 206 H 12/26/18 12/26/18 12/26/18 12:07 12:08 12:09 POC Glucose 345 H* 366 H* 346 H* ASSESSMENT: 12/26 * Patient's fasting BSG improved but still above goal range, continuing to titrate back up on basal * Hyperglycemic again at lunch but insulin given late ~09 and this more likely represents a post-pranidal, therefore reduced correction she was to receive as patient has tendency to drop before dinner * If patient still in hospital tomorrow, may want to transition back to novolog if patient is going to continue eating late breakfast. * 12/25 * Patient received 29 units of insulin yesterday with good glycemic control * Fasting this morning, however, was significantly elevated 320, suspect patient has become basal deficient * Will increase lantus for today * Prandial BSG continued to be elevated at lunch, considered iv bolus but shane shen to go to dialysis later this afternoon, therefore will hold off for now. Did tighten correction factor for today's lunch only considering hyperglycemia 12/24: * Patient received total of 25 units of insulin yesterday, of which 15 were basal insulin * Fasting this morning 199 mg/dL - will titrate up to 17 units of basal insulin * Will continue same CF/CR as BSGs are improving 12/23: * Patient received total of 44 units of insulin yesterday, of which 28 were basal insulin * Did have hypoglycemia around dinner last evening with BSG of 47 and after 15 gm CHO went up to 72 (likely related to too much carb coverage with meals) * Evening BSG up to 274 mg/dL - Fasting this morning is 111 mg/dL - will scale back Lantus and provide tighter carb coverage with breakfast, looser with lunchtime (appears this worked out well on prior admission) to help prevent hypoglycemia later on in the day * Add small scale for Lantus for tonight 12/22: * 48 year old with hyperglycemic hyperosmolar nonketotic coma on admission. Started on insulin drip/transitioned off in about 24 hours * Last two days has been off insulin drip, received about ~45 units each day (of which 30-35 have been basal) * Fasting BSG this morning 178 mg/dL - will provide a scale adjustment for Lantus for this evening based upon BSG to provide better fasting coverage * Noticed BSGs trending up during meals - will tighten CR PLAN FOR INPATIENT GLYCEMIC CONTROL: * Basal insulin * Lantus 22 units Qam, Scale for PM * hold if <100, 8 units if 100-200, 10 units >200 * Bolus insulin - no change * NovoLog per scale ACHS or Q6hrs while NPO * Goal Range: Low 120 mg/dL - High 160 mg/dL * Correction Factor: 70 mg/dL/unit with breakfast. 90 mg/dL/unit all other checks * Nutritional / Prandial insulin per carb ratio of 1 unit per 10 grams CHO consumed with breakfast, 1 units per 15 gms all other checks Discharge Recommendation Patient's A1c not reliable in setting of hemodialysis, and difficult to determ ine need based on admission. Patient can likely resume outpatient dosing if not experience frequent lows and follow up with outpatient provider to titrate dosing.
--- NOTE | 2018-12-26 17:16 | Hospitalist Progress Note ---
Date of Service December 26, 2018 Assessment & Plan (1) Hyperglycemic hyperosmolar nonketotic coma: Present on admission with glucose 1023 Was starting on IV insulin infusion, then transitioned to SC insulin regimen BS has been managed by pharmacy BS was elevated this morning, but improved Pt would like to go home tonight Continue monitor BS (2) Abdominal pain: (3) Constipation: Has not had a BM since admitted KUB showed moderate constipation. Had a BM today Continue Dulcolax and colace and miralax Continue monitor Pain resolved (4) ESRD (end stage renal disease) on dialysis: ESRD due to diabetic nephropathy ( Type 1 DM ) on chronic HD // on [facility] , follows with Nephrology with [facility] no evidence of volume overload Nephrology on board Next HD schedule tomorrow (5) DM type 1 (diabetes mellitus, type 1): HgA1c 7.8 Pharmacy on board for glycemic management visual educator on board Case discussed with pharmacy and recommended to discharge on home dose insulin Continue monitor BS (6) Diastolic heart failure: No sign of CHF Continue torsemide Stable (7) Anemia due to chronic kidney disease: Stable (8) CVA (cerebral vascular accident): Continue statin, aspirin and plavix stable (9) Diabetic gastroparesis: due to complication of Type 1 Dm with poor glycemic control causing chronic abdominal bloating /discomfort and pain cont Reglan , change the dose to pre meal scheduled cont bowel regimen (10) Hypertension: cont out pt meds (11) Hyperlipidemia: cont statin (12) Bipolar disorder: cont out pt meds (13) DVT prophylaxis: On heparin subq DISPOSITION : Discharge home today Follow up appt with PCP Dr. Taylor on 01/01 @ 10:45 AM Next Dialysis schedule for tomorrow Subjective Pt was seen and examined Sitting in chair with no distress Pt said that she feels better She said that had a BM today She said that she does not have any abdominal pain today She wants to go home today and already got dressed her BS was elevated this morning Denies any chest pain, palpitation, dizziness and SOB Physical Exam Physical Exam: General- No acute distress Head- atraumatic Eyes- PERRL, EOMI, ENT- oropharynx clear Neck- supple, no JVD Lungs- clear to auscultation Heart- regular rhythm; no murmur Abdomen- normal bowel sounds, nontender Extremities- no calf tenderness Neuro- alert, oriented x 3; PERRL, EOMI; no facial palsy; no dysarthria Skin- warm & dry Results & Data Vital Signs (Past 12 Hours) Vital Signs Temp Pulse Pulse Resp BP Pulse Ox 12/26/18 15:22 36.4 C L 68 18 146/83 H 92 12/26/18 07:44 36.8 C 72 12 130/72 96 (1) Anemia due to chronic kidney disease Chronic kidney disease stage: on chronic dialysis Qualified Code(s): N18.6 - End stage renal disease; D63.1 - Anemia in chronic kidney disease; Z99.2 - Dependence on renal dialysis (2) Abdominal pain Abdominal location: unspecified location Qualified Code(s): R10.9 - Unspecified abdominal pain (3) Constipation Constipation type: unspecified constipation type Qualified Code(s): K59.00 - Constipation, unspecified
--- NOTE | 2018-12-27 08:25 | Discharge Summary ---
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 Family member at bedside. Approximately 3 days ago while at hemodialysis she developed abrupt onset of lower abdominal pain. Pain is constant, worse with lying down, improved with standing, nonradiating. Did not try anything [id number] to make it better. Denies having pain in the past. States she has not had a good bowel movement in some time and chronically has looser stools. For the past 3 days she has had loose diarrhea but denies any melena or hematochezia. She also elicits to having PND and orthopnea with sleeping. She complains of chills and sweats but denies any fevers. Denies syncope, chest pain, palpitations, hematemesis, vomiting. She does still urinate but denies any hematuria, increased urgency or frequency with urination or dysuria. Her appetite is overall diminished. She states up until the past 2 months she has been getting her menstrual period. Her periods have been heavy and would occur twice monthly. She had an IUD inserted on 10/10/2018. Of significance patient had recent hospitalization at [facility] on 11/04 to 11/07/2018 for viral bronchitis, elevated blood sugars, nausea and vomiting related to gastroparesis. She was subsequently rehospitalized on 11/11 to 11/24/2018 secondary to severe metabolic acidosis, DKA, central line associated bloodstream infection with Leclercia adecaarboxylata tx with IV cefalozin x 2 weeks. During hospitalization while at HD she had unresponsive episode, MRI was performed which revealed an acute ischemic left basal ganglia CVA. Due to her bacteremia she had central line removed. Admission Exam Per Admitting Provider Gen: Well-developed/well-nourished, female, sitting up in bed, appears in pain, answers questions appropriately, broken Pashto, Head: Normocephalic, Atraumatic Eyes: Sclera normal, no conjunctival injection, PERRLA, EOMI ENT: Gross hearing intact, normal pharynx, mucous membranes moist Neck: supple, no adenopathy, No JVD, no bruit, Resp: Clear to auscultation b/l, no wheeze, rales, rhonchi. Normal insp/exp effort, no accessory muscle use CV: Regular rate, regular rhythm, soft 2/6 [place] noted RUSB, no rub, gallop, or ectopy Abd: Distended and protuberant abdomen, soft, pain to light and deep palpation to lower abdomen and suprapubic region, no guarding, rebound, rigidity, +BS x 4 Musculoskeletal: moves extremities active rom x 4 with diminished strength to right upper and lower extremity. Right upper and lower extremity 3/5, left upper and lower extremity 5 out of 5, good corporate treasurer strength Extremities: No edema bilaterally, right upper extremity AV fistula intact Skin: warm, moist, no rash, negative turgor, cap refill < 2sec Neuro: Alert and oriented x 3, speech normal, good mood/affect, cran nerve 2-12 intact grossly : deferred Principal Diagnosis (1) Hyperglycemic hyperosmolar nonketotic coma (2) Abdominal pain (3) Constipation (4) ESRD (end stage renal disease) on dialysis: (5) DM type 1 (diabetes mellitus, type 1): (6) Diastolic heart failure: (7) Anemia due to chronic kidney disease: (8) CVA (cerebral vascular accident): (9) Diabetic gastroparesis: (10) Hypertension: (11) Hyperlipidemia: (12) Bipolar disorder: Discharge Exam General- No acute distress Head- atraumatic Eyes- PERRL, EOMI, ENT- oropharynx clear Neck- supple, no JVD Lungs- clear to auscultation Heart- regular rhythm; no murmur Abdomen- normal bowel sounds, nontender Extremities- no calf tenderness Neuro- alert, oriented x 3; PERRL, EOMI; no facial palsy; no dysarthria Skin- warm & dry Discharge Data Allergies Allergy/AdvReac Type Severity Reaction Status Date / Time Fish Containing Products Allergy Mild Hives Verified 12/19/18 20:31 latex Allergy Mild hives Verified 12/19/18 20:31 Consultations 12/19/18 21:30 ED Decision to Admit Stat 12/20/18 00:42 Consult Nephrology Routine Ordered Studies 12/19/18 19:05 CT abd pelvis wo con Stat KUB CLINICAL HISTORY: Constipation. Generalized abdominal pain. FINDINGS: 2 AP supine abdominal radiographs are correlated with abdominal CT dated 12/19/2018. Cholecystectomy clips are seen in the right upper quadrant. There is a nonobstructed abdominal bowel gas pattern noting moderate colonic fecal retention. No evidence of intraperitoneal free air is seen on these supine views. An intrauterine device is present in the pelvis. There is no radiographic evidence of nephrolithiasis. Phleboliths are observed in the pelvis. The bony structures appear intact. The lung bases are clear as imaged. IMPRESSION: Moderate constipation. Electronically signed by: Davy Willson M.D. 12/24/2018 6:23 PM Dictated: 12/24/181821 Transcribed: 12/24/181821 SINGLE VIEW CHEST CLINICAL HISTORY: Nausea. Bloating. FINDINGS: An AP, portable, upright chest radiograph is compared to study dated 09/11/2017. The examination is degraded by portable technique and patient rotation. The heart is enlarged. There is mild pulmonary vascular congestion. No airspace consolidation or large pleural effusion is identified. Bibasilar atelectasis is observed. No pneumothorax is seen. The skeletal structures are osteopenic. The bony thorax is grossly intact. IMPRESSION: Cardiomegaly with mild pulmonary vascular congestion. Electronically signed by: Davy Willson M.D. 12/19/2018 10:36 PM Dictated: 12/19/182234 Transcribed: 12/19/182234 CT SCAN OF THE ABDOMEN AND PELVIS WITHOUT IV CONTRAST CLINICAL HISTORY: Generalized abdominal pain. Bloating. COMPARISON STUDY: Renal ultrasound dated 09/09/2017. TECHNIQUE: CT scan of the abdomen and pelvis is performed from the lung bases to the proximal femora. Images are reviewed in the axial, sagittal, and coronal planes. IV contrast was not administered for this examination as per the referring clinician. Note that the examination was performed in suboptimal fashion without oral and IV contrast. A dose lowering technique was utilized adhering to the principles of ALARA. CT DOSE: 326.07 mGy.cm FINDINGS: Lung bases: The heart is enlarged and without pericardial effusion. The mitral annulus is densely calcified. There is a small hiatal hernia. There is dependent atelectasis. No airspace consolidation or pleural effusion is identified. Intralobular septal thickening is noted at both lung bases. Liver: The unenhanced liver is enlarged, measuring 20.3 cm in length. The liver is otherwise normal in contour and attenuation. There is mild central intrahepatic biliary ductal dilatation. Gallbladder: Surgically absent noting clips in the gallbladder fossa. Spleen: Normal in size and attenuation. Pancreas: The unenhanced pancreas is atrophic and grossly unremarkable. Adrenal glands: Unremarkable. Kidneys: The unenhanced kidneys demonstrate cortical atrophy and are without hydronephrosis. There are renovascular calcifications. There are likely punctate nonobstructing kidney stones. There is no evidence of contour deforming renal mass lesion. Abdominal vasculature: The abdominal aorta is normal in course and caliber noting moderate atherosclerotic calcification. Bowel: There is moderate colonic fecal retention. No bowel obstruction is seen. The appendix is not identified and reported surgically absent. Peritoneum: There is no intraperitoneal free air or abdominal ascites. There is a small fat-containing umbilical hernia. Lymphadenopathy: None. Pelvic viscera: The bladder is distended. The bladder wall is mildly thickened. The uterus is normal as visualized noting an intrauterine device in place. No adnexal lesion is seen. A 2.9 cm sebaceous cyst is noted posterior to the left hip. Skeletal structures: The skeletal structures are osteopenic. There is mild lumbosacral spondylosis. Posterior disc osteophyte complexes are noted at L4-L5 and L5-S1. There is mild degenerative sclerosis of the sacroiliac joints. No lytic or blastic lesions are seen. IMPRESSION: 1. The bladder wall appears circumferentially thickened. Correlate clinically and with urinalysis for evidence of cystitis. 2. Suspect punctate nonobstructing renal calculi. 3. The heart is enlarged and intralobular septal thickening is noted at both lung bases. Correlate clinically for evidence of mild congestive failure. 4. Moderate constipation. 5. Hepatomegaly. 6. Additional findings as above. Electronically signed by: Davy Willson M.D. 12/19/2018 8:58 PM Dictated: 12/19/182050 Transcribed: 12/19/182050 Hospital Course (1) Hyperglycemic hyperosmolar nonketotic coma: Present on admission with glucose 1023 Was starting on IV insulin infusion, then transitioned to SC insulin regimen BS has been managed by pharmacy BS was elevated this morning, but improved Pt would like to go home tonight Continue monitor BS (2) Abdominal pain: Continues to have ongoing abdominal pain and discomfort Will order x-ray of KUB to assess for possible ileus Has chronic lower abdominal pain for gastroparesis With some worsening abdominal pain today Continue stool softeners /Reglan before meals pt reports of chronic abdominal pain , worsening of symptom for past few days with hx of severe diabetic gastroparesis worsening of presentation due to ongoing constipation (3) Constipation: Has not had a BM since admitted KUB showed moderate constipation. 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 Case discussed with pharmacy and recommended to discharge on home dose insulin Continue monitor BS (6) Diastolic heart failure: No sign of CHF Continue torsemide Stable (7) Anemia due to chronic kidney disease: Stable (8) CVA (cerebral vascular accident): Continue statin, aspirin and plavix stable (9) Diabetic gastroparesis: due to complication of Type 1 Dm with poor glycemic control causing chronic abdominal bloating /discomfort and pain cont Reglan , change the dose to pre meal scheduled cont bowel regimen (10) Hypertension: cont out pt meds (11) Hyperlipidemia: cont statin (12) Bipolar disorder: cont out pt meds (13) DVT prophylaxis: On heparin subq DISPOSITION : Discharge home today Follow up appt with PCP Dr. Taylor on 01/01 @ 10:45 AM Next Dialysis schedule for tomorrow Total Time Total Time Spent Total Time Spent (In Minutes): 35 minutes Total Time Includes: Examination of the Patient, Discharge Planning, Medication Reconciliation, Communication With Other Providers and Other Discharge Plan Discharge Items Patient Disposition: Home - Home Health Services Reason For Visit: CP, HYPERGLYCEMIC CRISIS Discharge Diagnosis: (1) Hyperglycemic hyperosmolar nonketotic coma (2) Abdominal pain (3) Constipation (4) ESRD (end stage renal disease) on dialysis: (5) DM type 1 (diabetes mellitus, type 1): (6) Diastolic heart failure: (7) Anemia due to chronic kidney disease: (8) CVA (cerebral vascular accident): (9) Diabetic gastroparesis: (10) Hypertension: (11) Hyperlipidemia: (12) Bipolar disorder: Discharge Goals: Decrease discomfort Activity: Resume your previous activity Activity Comment: As tolerated Non-emergency contact: Primary Care Provider Call non-emergency contact if: you have any medication questions Follow-up/Referrals: Mitchel Santo MD [Primary Care Provider] - Diet: Carb Consistent or DM2 and Dialysis Renal Addtl Provider Instructions: Follow up appt with primary care provider Dr. Taylor on 01/01 @ 10:45 AM Your next Dialysis schedule for tomorrow at your dialysis center Fall precaution Monitor your blood sugar and bring you blood sugar log at your next appointment with your provider Follow a low carb diet and limited concentrated sweet intake Prescriptions: Continued multivitamin Tablet 1 tab PO DAILY RF: 0 atorvastatin [Lipitor] 80 mg tablet 80 mg PO DAILY RF: 0 carvedilol 25 mg Tablet 25 mg PO BID RF: 0 polyethylene glycol 3350 [Miralax] 17 gram Powder In Packet 17 g PO BID PRN (Reason: Constipation) RF: 0 aspirin [Aspir-81] 81 mg Tablet,Delayed Release (Dr/Ec) 81 mg PO DAILY RF: 0 bupropion HCl 100 mg tablet 100 mg PO BID RF: 0 metoclopramide HCl [Reglan] 5 mg tablet 5 mg PO BID RF: 0 torsemide 100 mg tablet 100 mg PO DAILY RF: 0 pantoprazole 40 mg Tablet,Delayed Release (Dr/Ec) 40 mg PO DAILY RF: 0 glucose 4 gram Tablet,Chewable 10 g PO UD RF: 0 ergocalciferol (vitamin D2) [Vitamin D2] 50,000 unit capsule 50,000 unit PO MONTHLY RF: 0 [place] Caps 1 mg Capsule 1 cap PO DAILY RF: 0 albuterol sulfate [Proventil HFA] 90 mcg/actuation HFA aerosol inhaler 2 puff inhalation Q4 PRN (Reason: Wheezing) RF: 0 ondansetron 4 mg Tablet,Disintegrating 4 mg PO Q8H PRN (Reason: Nausea) RF: 0 sertraline [Zoloft] 50 mg tablet 50 mg PO DAILY RF: 0 lamotrigine [Lamictal] 100 mg tablet 100 mg PO DAILY RF: 0 bisacodyl 5 mg Tablet 5 mg PO DAILY PRN (Reason: Constipation) RF: 0 insulin lispro [Admelog SoloStar U-100 Insulin] 100 unit/mL insulin pen 2 unit subcut TIDM RF: 0 calcium acetate 667 mg capsule 667 mg PO TIDM RF: 0 quetiapine [Seroquel] 50 mg tablet 25 mg PO BID RF: 0 Basaglar KwikPen U-100 Insulin 100 unit/mL (3 mL) insulin pen 15 unit subcut QPM RF: 0 Basaglar KwikPen U-100 Insulin 100 unit/mL (3 mL) insulin pen 25 unit subcut QAM RF: 0 Breo Ellipta 200-25 mcg/dose Blister With Device 1 inh INHALATION DAILY RF: 0 Visit Report Forms: Smoking Cessation Stand-Alone Forms: Call Back Authorization, [facility] [email or web address], Opioid Pain Management, Work/School Release (Inpt) Krames/Other Patient Handouts: Log Blood Sugar, Hyperglycemia, Diabetes Healthy Meals Discharge Orders: Discharge Order (Routine); Ordered 12/26/18 Ordered By: Kelsi Castillo Admission Data Admit Date/Time: 12/19/18 23:32 Attending Provider: Kelsi Castillo Admit Provider: Pardeep Archer Primary Care Provider: Mitchel Santo Other Providers: Pardeep Archer ; Nahomy Mejias ; Margareth Rich Service: Medical Other Interventions: Discharge Summary Assessment (RN) Last Done: 12/26/18 20:12 DC Date/Time DO NOT enter until pt leaves facility: 12/26/18 20:45
== END 2018-12-26 20:45 | disposition home health service (06) | DRG 637 ==
LOC: ED 18:51 → 2S 23:32 → SUATTDRO 23:32 → 2S 12-20 00:27 → 3W 12-20 18:31

== ENCOUNTER 2019-02-04 12:57 | Observation (INO) ==
[2019-02-04 15:08] LABS: Basophils # (auto) 0.02 K/uL (0-0.2); Basophils % (auto) 0.4 %; Eosinophils # (auto) 0.49 K/uL (0-0.5); Eosinophils % (auto) 9.4 %; Hematocrit (blood only) 34.1 % (37-47); Hemoglobin 11.6 g/dL (12.0-16.0); Immature Granulocytes # (auto) 0.01 K/uL (0.00-0.02); Immature Granulocytes % (auto) 0.2 %; Lymphocytes # (auto) 1.75 K/uL (1.2-3.4); Lymphocytes % (auto) 33.7 %; Mean Corpuscular Hemoglobin 29.5 pg (25-34); Mean Corpuscular Volume 86.8 fL (80-100); Monocytes # (auto) 0.43 K/uL (0.11-0.59); Monocytes % (auto) 8.3 %; Neutrophils # (auto) 2.49 K/uL (1.4-6.5); Platelet Count 284 K/uL (130-400); RDW Coefficient of Variation 14.1 % (11.5-14.5); RDW Standard Deviation 44.6 fL (36.4-46.3); Red Blood Count 3.93 M/uL (4.2-5.4); White Blood Count 5.19 K/uL (4.8-10.8)
--- NOTE | 2019-02-04 15:30 | XRay Report ---
XR chest 1V portable HISTORY: 48 years-old Female Chest Pain acute chest trauma status post fall COMPARISON: Chest radiograph 12/19/2018 TECHNIQUE: Portable AP view of the chest FINDINGS: Cardiac silhouette is enlarged, unchanged. There is no pneumothorax, pleural effusion, focal airspace consolidation or overt pulmonary edema. 5 mm loose body about the left axillary recess. Suggestion o f left rotator cuff calcific tendinosis. Degenerative changes of the shoulders and spine. IMPRESSION: Cardiomegaly without acute process. The above report was generated using voice recognition software. It may contain grammatical, syntax o r spelling errors. Electronically signed by: Flakito Cordero M.D. 02/04/2019 3:29 PM
[2019-02-04 15:31] LABS: Alanine Aminotransferase 23 U/L (12-78); Albumin Globulin Ratio 0.8 (0.9-2); Albumin Level 3.4 gm/dl (3.4-5.0); Alkaline Phosphatase 122 U/L (45-117); Aspartate Aminotransferase 10 U/L (15-37); BUN Creatinine Ratio 7.9 (10-20); Bilirubin,Total 0.3 mg/dl (0.2-1); Blood Urea Nitrogen 28 mg/dl (7-18); Carbon Dioxide 30 mmol/L (21-32); Chloride 99 mmol/L (98-107); Est GFR (African American) 16.7; Est GFR (Non-African American) 14.4; Globulin 4.2 gm/dl (2.5-4.0); Glucose 401 mg/dl (70-99); Lipase 73 U/L (73-393); Potassium 4.2 mmol/L (3.5-5.1); Sodium 134 mmol/L (136-145); Total Protein 7.6 gm/dl (6.4-8.2)
--- NOTE | 2019-02-04 15:32 | XRay Report ---
XR foot RT min 3V routine HISTORY: 48 years-old Female pain eval for fx acute right foot pain status post fall COMPARISON: None available TECHNIQUE: 3 views of the right foot FINDINGS: Acute obliquely oriented fracture about the distal neck of the third metatarsal demonstrates 2 mm med ial displacement and slight apex medial angulation of the distal fracture fragment. Additionally, the re is an acute intra-articular fracture about the medial base of the second proximal phalanx with a 3 mm bone fragment displaced medially by approximately 1-2 mm. Mild first MTP joint with mild multidig it interphalangeal osteoarthritis. No additional acute fracture or subluxation. Arterial calcificatio ns are noted. Mild degenerative changes about the midfoot and hindfoot. Mild forefoot soft tissue swe lling. IMPRESSION: 1. Acute mildly displaced and minimally angulated fracture about the third metatarsal neck. 2. Acute intra-articular minimally displaced fracture about the medial base of the second proximal ph alanx. 3. Mild forefoot soft tissue swelling. The above report was generated using voice recognition software. It may contain grammatical, syntax o r spelling errors. Electronically signed by: Flakito Cordero M.D. 02/04/2019 3:31 PM
[2019-02-04 15:44] LABS: Beta-Hydroxybutyrate 0.95 mg/dl (0.2-2.81)
[2019-02-04] MEDS ORDERED: NovoLIN-R INSULIN PER UNIT CHARGE IV STA (16:24)
[2019-02-04] MEDS ORDERED: OXYCODONE HCL IR 5 MG TAB (IMMEDIATE RELEASE) PO STA (16:51)
[2019-02-04] MEDS ORDERED: SODIUM CHLORIDE 0.9% 1000ML 500 ML IV ONE (16:51)
[2019-02-04] MEDS ORDERED: NITROGLYCERIN 2% OINTMENT 30GM TUBE EXT ONE (16:51)
--- NOTE | 2019-02-04 18:07 | CT Scan Report ---
CT OF THE ABDOMEN AND PELVIS WITHOUT CONTRAST CLINICAL HISTORY: Left lower quadrant pain. Evaluate for acute diverticulitis. COMPARISON STUDY: CT of the abdomen and pelvis December 19, 2018. KUB December 24, 2018. TECHNIQUE: Axial images of the abdomen and pelvis were obtained without IV contrast. Images were revi ewed in the axial, sagittal, and coronal planes. Automated exposure control was utilized for the russ dy. A dose lowering technique was utilized adhering to the principles of ALARA. FINDINGS: The heart is mildly enlarged. No pneumatosis, free air or portal venous gas is present. The re is no biliary ductal dilatation status post cholecystectomy. Punctate densities within the renal s inuses could reflect nonobstructing calculi or vascular calcifications. There are no ureteral calculi . There is no hydronephrosis. There is no evidence for a bowel obstruction. A moderate amount stool i s noted. The appendix is not visualized. There is no ascites or lymphadenopathy. Intrauterine device is in place. No suspicious osseous lesions are present. Suspected left thigh sebaceous cyst is noted. There is no evidence for acute diverticulitis. Moderate amount of stool within the colon is noted. IMPRESSION: 1. No acute process within the abdomen or pelvis. 2. Exam compromised the lack of IV contrast. 3. No bowel obstruction. Moderate amount of stool within the colon. No evidence for acute diverticuli tis. Electronically signed by: Everardo Williamson M.D. 02/04/2019 6:06 PM
[2019-02-04] MEDS ORDERED: MoRPHine SULFATE 4 MG/ML 1 ML CARP\\VIAL IV STA (18:30)
[2019-02-04] MEDS ORDERED: ONDANSETRON INJ 2 MG/ML 2 ML VIAL IV STA (18:30)
[2019-02-04] MEDS ORDERED: CARVEDILOL 25 MG TAB PO ONE (19:30)
--- NOTE | 2019-02-04 19:32 | History & Physical Report ---
Date of Service February 04, 2019 Assessment & Plan (1) Acute chest pain: History CAD as per records Likely secondary to hypertensive urgency ? Medication compliance Uncontrolled right foot pain (new phalangeal fracture in today's foot x-ray in addition to oblique fracture, third metatarsal shaft secondary to mechanical fall last January 16, 2019 ) and anxiety contributory to symptoms hx DM1, reasonable control as of recent inpatient hemoglobin A1c of 7.8 last December 2018 Hypertensive urgency secondary to illness Chest pain secondary to above History chronic diastolic heart failure (EF 60 to 64%, TTE 2018) ESRD on hemodialysis Patient euvolemic COPD as per records, pulmonary status at baseline chronic anemia secondary to ESRD, hemoglobin at baseline Mood disorder, suboptimal Uterine fibroid sp IUD insertion, same uterine pain Functional disability, recurrent ER visits/admissions at local hospitals Past tobacco abuse OBS PCU Facilitate home BP meds, may need titration Analgesia trend troponin, cardiology consult RE L sided chest pain, history CAD as per records Orthopedics consult RE right foot fractures Psychiatry consult RE worsening depression, history of bipolar disorder as per records Nephrology consult RE dialysis management Follow-up with [facility] business librarian regarding uterine pain basal insulin, ISS BG goal, 1 40-1 80, recheck hemoglobin A1c PT OT eval DVT prophylaxis. Heparin subcu Full code Patient's boyfriend requesting updates from providers. Mr. Harley Aguilar, contact #[phone] History of Present Illness Chief Complaint: Chest pain Primary Care Provider: Mitchel Santo MD History obtained from patient, family, and records. Medical history significant for chronic diastolic heart failure (EF 74%, DSE 2018), nonocclusive CAD as per records, hypertension, history CVA, COPD, hx DM1, ESRD on HD, chronic anemia (baseline hemoglobin of 11 ), mood disorder, past tobacco abuse, history uterine fibroid, hx R 3rd metatarsal fracture, medication noncompliance as per records, history of seizures as per records. Recent confinement [facility] February 02-2018 for a mechanical fall. Patient complaining of depression without suicidality during confinement. Psychiatry unable to see patient during confinement. Patient noted achy left-sided chest pain going to the left arm with some shortness of breath since discharge home yesterday. Somewhat similar to heart attack in the past. No unusual cough symptoms. Patient not sure about BP control at home. Claims to be compliant with home meds. Uncontrolled uterine fibroid without vaginal bleeding and right foot fracture pain. No fluid retention. Denies NSAID intake. Some relief with nitroglycerin given at the ER. Medical History as above 01/16/2019, minimally displaced oblique fracture, distal shaft of third metatarsal on x-ray at [facility] after mechanical fall. Conservative treatment with orthotics as per outpatient Podiatry evaluation a week later. 02/2016 minor luminal disease without obstruction on cardiac cath 01/2019 submaximal dobutamine stress echo 09/2018 Mirena IUD placed gynecology for abnormal uterine bleeding. Small uterine fibroid noted on pelvic ultrasound. Hemodialysis, Saturday Surgical History : Vascular procedures, appendectomy, cholecystectomy, BTL, eye surgery Family History : Diabetes, breast cancer, heart disease, ovarian cancer, thyroid disease Personal/Social history : Past tobacco abuse, no EtOH intake, disabled BSG noted to be 400 upon arrival at the ER. IV insulin given at the ER. Allergies Allergy/AdvReac Type Severity Reaction Status Date / Time Fish Containing Products Allergy Mild Hives Verified 02/04/19 15:09 latex Allergy Mild hives Verified 02/04/19 15:09 Home Medications Home Medications Medication Instructions Recorded Confirmed Type Basaglar KwikPen U-100 Insulin 15 unit SUBCUT QPM 12/19/18 02/04/19 History Basaglar KwikPen U-100 Insulin 25 unit SUBCUT QAM 12/19/18 02/04/19 History Breo Ellipta 1 inh INHALATION DAILY 12/19/18 02/04/19 History Traill Caps 1 cap PO DAILY 12/19/18 02/04/19 History albuterol sulfate [Proventil HFA] 2 puff INHALATION Q4 PRN 12/19/18 02/04/19 History aspirin [Aspir-81] 81 mg PO DAILY 12/19/18 02/04/19 History atorvastatin [Lipitor] 80 mg PO DAILY 12/19/18 02/04/19 History bisacodyl 5 mg PO DAILY PRN 12/19/18 02/04/19 History bupropion HCl 100 mg PO BID 12/19/18 02/04/19 History calcium acetate 667 mg PO TIDM 12/19/18 02/04/19 History carvedilol 25 mg PO BID 12/19/18 02/04/19 History ergocalciferol (vitamin D2) 50,000 unit PO MONTHLY 12/19/18 02/04/19 History [Vitamin D2] glucose 10 g PO UD 12/19/18 02/04/19 History insulin lispro [Admelog SoloStar 2 unit SUBCUT TIDM 12/19/18 02/04/19 History U-100 Insulin] lamotrigine [Lamictal] 100 mg PO DAILY 12/19/18 02/04/19 History metoclopramide HCl [Reglan] 5 mg PO BID 12/19/18 02/04/19 History multivitamin 1 tab PO DAILY 12/19/18 02/04/19 History ondansetron 4 mg PO Q8H PRN 12/19/18 02/04/19 History pantoprazole 40 mg PO DAILY 12/19/18 02/04/19 History polyethylene glycol 3350 [Miralax] 17 g PO BID PRN 12/19/18 02/04/19 History quetiapine [Seroquel] 25 mg PO BID 12/19/18 02/04/19 History sertraline [Zoloft] 50 mg PO DAILY 12/19/18 02/04/19 History torsemide 100 mg PO DAILY 12/19/18 02/04/19 History Past Med/Surg History Medical History ESRD (end stage renal disease) on dialysis Arteriovenous fistula for hemodialysis in place, primary (Chronic) DM type 1 (diabetes mellitus, type 1) (Chronic) Depression (Chronic) Hyperlipidemia (Chronic) Hypertension (Chronic) History of GI bleed (Chronic) GERD (gastroesophageal reflux disease) (Chronic) Coronary artery disease (Chronic) "2016 - cardiac catheterization showing nonobstructive coronary disease Stress test 06/2017 - possible small area of ischemia in the anterior wall" Diabetic gastroparesis (Chronic) Anemia due to chronic kidney disease (Chronic) Diastolic heart failure (Chronic) Bipolar disorder (Chronic) Seizure (Chronic) CVA (cerebral vascular accident) (Chronic) 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 history of CVA in 2018 Residual R sided weakness CKD (chronic kidney disease) (Acute) Hyperglycemia (Acute) Surgical History Hx of cholecystectomy (Chronic) Hx of appendectomy (Chronic) Hx of tubal ligation (Chronic) Family History Mother Coronary heart disease Hypertension Father Coronary heart disease Other No significant family history Social History Preferred Language: [place]i Communication Ability: Effective Meeting Coordinator Required: No Beliefs That Will Affect Care: None marital status: Single Current Living Situation: Family current occupational status: unemployed Feels Safe at Home: Yes Safety Concerns: Feels Safe At This Time Smoking Status: Never smoker Hx Alcohol Use: No Hx Substance Use: No Review of Systems Review of Systems: As per HPI, all 10 systems reviewed, all other ROS negative Physical Exam Physical Exam: GENERAL: uncomfortable, anxious, no respiratory distress SKIN: Sallow , warm HEENT: Pale palpebral conjunctivae, no ptosis, dry buccal mucosa NECK : Supple, short neck, no tenderness CHEST : CTA, no tenderness HEART : RRR, no obvious murmurs ABDOMEN: Some distention, chronic hypogastric tenderness EXTREMITIES : Orthotic contraption noted on RLE, minimal LE swelling, no LE tenderness, no other conspicuous deformities noted NEUROLOGIC : Coherent, no facial asymmetry, no other gross focality Results & Data Vital Signs (Past 12 Hours) Vital Signs Temp Pulse Pulse Resp BP BP Pulse Ox 02/04/19 18:30 66 18 200/83 H 98 02/04/19 18:20 67 30 H 98 02/04/19 18:10 68 26 H 95 02/04/19 18:00 68 23 212/84 H 98 02/04/19 17:50 67 25 H 95 02/04/19 17:41 97 02/04/19 17:25 65 17 99 02/04/19 17:16 66 22 201/70 H 96 02/04/19 17:14 65 22 201/70 H 98 02/04/19 14:19 97 02/04/19 12:59 36.9 C 71 16 165/55 H 98 Laboratory Results Laboratory Results WBC 5.19 K/uL (4.8-10.8) 02/04/19 15:00 RBC 3.93 M/uL (4.2-5.4) L 02/04/19 15:00 Hgb 11.6 g/dL (12.0-16.0) L 02/04/19 15:00 Hct 34.1 % (37-47) L 02/04/19 15:00 MCV 86.8 fL (80-100) 02/04/19 15:00 MCH 29.5 pg (25-34) 02/04/19 15:00 MCHC 34.0 g/dL (32-36) 02/04/19 15:00 RDW Std Deviation 44.6 fL (36.4-46.3) 02/04/19 15:00 RDW Coeff of Lebron 14.1 % (11.5-14.5) 02/04/19 15:00 Plt Count 284 K/uL (130-400) 02/04/19 15:00 MPV 10.0 fL (7.4-10.4) 02/04/19 15:00 Immature Gran % (Auto) 0.2 % 02/04/19 15:00 Neut % (Auto) 48.0 % 02/04/19 15:00 Lymph % (Auto) 33.7 % 02/04/19 15:00 [place] % (Auto) 8.3 % 02/04/19 15:00 Eos % (Auto) 9.4 % 02/04/19 15:00 Baso % (Auto) 0.4 % 02/04/19 15:00 Immature Gran # (Auto) 0.01 K/uL (0.00-0.02) 02/04/19 15:00 Neut # (Auto) 2.49 K/uL (1.4-6.5) 02/04/19 15:00 Lymph # (Auto) 1.75 K/uL (1.2-3.4) 02/04/19 15:00 [place] # (Auto) 0.43 K/uL (0.11-0.59) 02/04/19 15:00 Eos # (Auto) 0.49 K/uL (0-0.5) 02/04/19 15:00 Baso # (Auto) 0.02 K/uL (0-0.2) 02/04/19 15:00 Sodium 134 mmol/L (136-145) L 02/04/19 15:00 Potassium 4.2 mmol/L (3.5-5.1) 02/04/19 15:00 Chloride 99 mmol/L (98-107) 02/04/19 15:00 Carbon Dioxide 30 mmol/L (21-32) 02/04/19 15:00 Anion Gap 6.0 (3-11) 02/04/19 15:00 BUN 28 mg/dl (7-18) H 02/04/19 15:00 Creatinine 3.50 mg/dl (0.6-1.2) H 02/04/19 15:00 Est Cr Clr Drug Dosing Not Reportable 02/04/19 15:00 Est GFR ( Amer) 16.7 02/04/19 15:00 Est GFR (Non-Af Amer) 14.4 02/04/19 15:00 BUN/Creatinine Ratio 7.9 (10-20) L 02/04/19 15:00 Glucose 401 mg/dl (70-99) H* 02/04/19 15:00 POC Glucose 143 (70-99) H 02/04/19 18:35 Calcium 9.0 mg/dl (8.5-10.1) 02/04/19 15:00 Total Bilirubin 0.3 mg/dl (0.2-1) 02/04/19 15:00 AST 10 U/L (15-37) L 02/04/19 15:00 ALT 23 U/L (12-78) 02/04/19 15:00 Alkaline Phosphatase 122 U/L (45-117) H 02/04/19 15:00 POC Troponin I < 0.03 ng/ml (0-0.045) 02/04/19 15:04 Total Protein 7.6 gm/dl (6.4-8.2) 02/04/19 15:00 Albumin 3.4 gm/dl (3.4-5.0) 02/04/19 15:00 Globulin 4.2 gm/dl (2.5-4.0) H 02/04/19 15:00 Albumin/Globulin Ratio 0.8 (0.9-2) L 02/04/19 15:00 Lipase 73 U/L (73-393) 02/04/19 15:00 Beta-Hydroxybutyric Acd 0.95 mg/dl (0.2-2.81) 02/04/19 15:00 Diagnostic Findings Chest x-ray showed cardiomegaly EKG as per my interpretation : Rate 65, NSR, normal axis, no ischemia CT abdomen pelvis: 1. No acute process within the abdomen or pelvis. 2. Exam compromised the lack of IV contrast. 3. No bowel obstruction. Moderate amount of stool within the colon. No evidence for acute diverticulitis. Right foot x-ray: 1. Acute mildly displaced and minimally angulated fracture about the third metatarsal neck. 2. Acute intra-articular minimally displaced fracture about the medial base of the second proximal phalanx. 3. Mild forefoot soft tissue swelling.
[2019-02-04 19:46] LABS: Magnesium 2.5 mg/dl (1.8-2.4)
[2019-02-04 19:51] LABS: Partial Thromboplastin Time 26.6 Seconds (21.0-31.0)
--- NOTE | 2019-02-04 21:05 | Emergency Department Note ---
Entered by Audelia Soares acting as a scribe for History of Present Illness General Chief complaint: Hyperglycemia Stated complaint: DEPRESSION Source: patient History of Present Illness Onset (ago): day(s) 2 Location: head (Hyperglycemia) Severity: similar to prior episodes Pain Consistency: + intermittent Maximum Pain Intensity: 8 Quality: + stabbing and + other (Pressure) Associated symptoms: + chest pain, + shortness of breath and + other (Positive hyperglycemia, abdominal pain, right foot pain, depression. Negative diarrhea, SI and HI. ); no fever/chills and no nausea/vomiting The patient is a 48 year old female presenting to the Emergency Department complaining of intermittent hyperglycemia starting 2 days ago. The patient reports that her blood sugar has been high. She states that her glucometer which goes up to 500 has been reading high. She notes that her blood glucose [employer] was 482. She adds that she regularly takes insulin. The patient reports that she has been experiencing left-sided chest pain since yesterday. She describes this pain as a pressure. She states that her chest pain is new as she has never experienced chest pain before. She explains that her chest pain is making her short of breath. She notes that she has an intermittent irregular heartbeat. She adds that she receives 3 dialysis treatments per week with her last treatment being yesterday. The patient reports that she began experiencing left-sided abdominal pain yesterday. She describes this as a stabbing pain. She states that she has experienced this pain before. She explains that she fractured her right foot 2 weeks ago and that her foot is still painful. She notes that she followed up as an outpatient with her orthopedic office for her fracture. She adds that her foot is not red or swollen. The patient reports that she has depression. She states that she has not taken her psychiatric medication in 1 month because her psychiatric clinic closed. She explains that she tried to get these medications from her PCP but that her PCP did not feel comfortable prescribing them to her. The patient denies vomiting, diarrhea, fevers, chills, SI and HI. Home Medications Home Medications Medication Instructions Recorded Confirmed Type Basaglar KwikPen U-100 Insulin 15 unit SUBCUT QPM 12/19/18 02/04/19 History Basaglar KwikPen U-100 Insulin 25 unit SUBCUT QAM 12/19/18 02/04/19 History Breo Ellipta 1 inh INHALATION DAILY 12/19/18 02/04/19 History Ransom Caps 1 cap PO DAILY 12/19/18 02/04/19 History albuterol sulfate [Proventil HFA] 2 puff INHALATION Q4 PRN 12/19/18 02/04/19 History aspirin [Aspir-81] 81 mg PO DAILY 12/19/18 02/04/19 History atorvastatin [Lipitor] 80 mg PO DAILY 12/19/18 02/04/19 History bisacodyl 5 mg PO DAILY PRN 12/19/18 02/04/19 History bupropion HCl 100 mg PO BID 12/19/18 02/04/19 History calcium acetate 667 mg PO TIDM 12/19/18 02/04/19 History carvedilol 25 mg PO BID 12/19/18 02/04/19 History ergocalciferol (vitamin D2) 50,000 unit PO MONTHLY 12/19/18 02/04/19 History [Vitamin D2] glucose 10 g PO UD 12/19/18 02/04/19 History insulin lispro [Admelog SoloStar 2 unit SUBCUT TIDM 12/19/18 02/04/19 History U-100 Insulin] lamotrigine [Lamictal] 100 mg PO DAILY 12/19/18 02/04/19 History metoclopramide HCl [Reglan] 5 mg PO BID 12/19/18 02/04/19 History multivitamin 1 tab PO DAILY 12/19/18 02/04/19 History ondansetron 4 mg PO Q8H PRN 12/19/18 02/04/19 History pantoprazole 40 mg PO DAILY 12/19/18 02/04/19 History polyethylene glycol 3350 [Miralax] 17 g PO BID PRN 12/19/18 02/04/19 History quetiapine [Seroquel] 25 mg PO BID 12/19/18 02/04/19 History sertraline [Zoloft] 50 mg PO DAILY 12/19/18 02/04/19 History torsemide 100 mg PO DAILY 12/19/18 02/04/19 History Allergies Allergy/AdvReac Type Severity Reaction Status Date / Time Fish Containing Products Allergy Mild Hives Verified 02/04/19 15:09 latex Allergy Mild hives Verified 02/04/19 15:09 Past Med/Surg History Medical History ESRD (end stage renal disease) on dialysis Arteriovenous fistula for hemodialysis in place, primary (Chronic) DM type 1 (diabetes mellitus, type 1) (Chronic) Depression (Chronic) Hyperlipidemia (Chronic) Hypertension (Chronic) History of GI bleed (Chronic) GERD (gastroesophageal reflux disease) (Chronic) Coronary artery disease (Chronic) "2016 - cardiac catheterization showing nonobstructive coronary disease Stress test 06/2017 - possible small area of ischemia in the anterior wall" Diabetic gastroparesis (Chronic) Anemia due to chronic kidney disease (Chronic) Diastolic heart failure (Chronic) Bipolar disorder (Chronic) Seizure (Chronic) CVA (cerebral vascular accident) (Chronic) 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 history of CVA in 2018 Residual R sided weakness CKD (chronic kidney disease) (Acute) Hyperglycemia (Acute) Surgical History Hx of cholecystectomy (Chronic) Hx of appendectomy (Chronic) Hx of tubal ligation (Chronic) Family History Mother Coronary heart disease Hypertension Father Coronary heart disease Other No significant family history Social History Preferred Language: Mongolian Communication Ability: Effective Stunt Double Required: No Beliefs That Will Affect Care: None marital status: Single Current Living Situation: Family and Significant Other current occupational status: unemployed Feels Safe at Home: Yes Smoking Status: Never smoker Hx Alcohol Use: No Hx Substance Use: No Review of Systems See HPI for pertinent positives & negatives. and A total of 10 systems reviewed and were otherwise negative Physical Exam Vital Signs Vital Signs - 24 hr 02/04/19 12:59 02/04/19 14:19 02/04/19 17:14 Temperature 36.9 C Temperature Source Oral Sepsis Recent Fever Within 48 Hours No Sepsis Action Taken by Nursing No Action Required Pulse Rate 71 65 Pulse Rate [Apical] Pulse Rate from SpO2 Sensor 65 Pulse Rhythm [Apical] Pulse Strength [Apical] Respiratory Rate 16 22 Respiratory Effort / Characteristics Respiratory Depth Normal Respiratory Pattern Blood Pressure 165/55 H 201/70 H Blood Pressure [Left Arm] Blood Pressure Mean 91 113 Blood Pressure Mean [Left Arm] Blood Pressure Position Sitting Pulse Oximetry 98 97 98 Oxygen Delivery Method Room Air Room Air 02/04/19 17:16 02/04/19 17:25 02/04/19 17:41 Temperature Temperature Source Sepsis Recent Fever Within 48 Hours Sepsis Action Taken by Nursing Pulse Rate 65 Pulse Rate [Apical] 66 Pulse Rate from SpO2 Sensor 65 67 Pulse Rhythm [Apical] Regular Pulse Strength [Apical] Normal Respiratory Rate 22 17 Respiratory Effort / Characteristics Non-Labored Spontaneous Respiratory Depth Normal Respiratory Pattern Regular Blood Pressure Blood Pressure [Left Arm] 201/70 H Blood Pressure Mean Blood Pressure Mean [Left Arm] 113 Blood Pressure Position Pulse Oximetry 96 99 97 Oxygen Delivery Method Room Air 02/04/19 17:50 02/04/19 18:00 02/04/19 18:10 Temperature Temperature Source Sepsis Recent Fever Within 48 Hours Sepsis Action Taken by Nursing Pulse Rate 67 68 68 Pulse Rate [Apical] Pulse Rate from SpO2 Sensor 67 68 68 Pulse Rhythm [Apical] Pulse Strength [Apical] Respiratory Rate 25 H 23 26 H Respiratory Effort / Characteristics Respiratory Depth Respiratory Pattern Blood Pressure 212/84 H Blood Pressure [Left Arm] Blood Pressure Mean 126 Blood Pressure Mean [Left Arm] Blood Pressure Position Pulse Oximetry 95 98 95 Oxygen Delivery Method 02/04/19 18:20 02/04/19 18:30 02/04/19 19:00 Temperature Temperature Source Sepsis Recent Fever Within 48 Hours Sepsis Action Taken by Nursing Pulse Rate 67 66 Pulse Rate [Apical] 68 Pulse Rate from SpO2 Sensor 67 67 Pulse Rhythm [Apical] Pulse Strength [Apical] Respiratory Rate 30 H 18 16 Respiratory Effort / Characteristics Respiratory Depth Respiratory Pattern Blood Pressure 200/83 H Blood Pressure [Left Arm] 175/69 H Blood Pressure Mean 122 Blood Pressure Mean [Left Arm] 104 Blood Pressure Position Pulse Oximetry 98 98 96 Oxygen Delivery Method Room Air 02/04/19 20:30 Temperature Temperature Source Sepsis Recent Fever Within 48 Hours Sepsis Action Taken by Nursing Pulse Rate Pulse Rate [Apical] Pulse Rate from SpO2 Sensor Pulse Rhythm [Apical] Pulse Strength [Apical] Respiratory Rate Respiratory Effort / Characteristics Respiratory Depth Respiratory Pattern Blood Pressure Blood Pressure [Left Arm] 194/76 H Blood Pressure Mean Blood Pressure Mean [Left Arm] 115 Blood Pressure Position Pulse Oximetry Oxygen Delivery Method Constitutional: Vital signs reviewed. Eyes: Pupils are equal round reactive to light. Conjunctiva are noninjected. ENT: Pharynx is clear without erythema or exudate. Mucous membranes are moist. Neck supple without meningeal signs. Respiratory: Clear to auscultation bilaterally. Breath sounds are equal bilaterally. Cardiovascular: Regular rate and rhythm. No rubs or gallops. GI: Soft and nondistended. Bowel sounds are present. Left lower quadrant tenderness. Musculoskeletal: No peripheral edema. Tenderness to the base of the right 3rd, 4th and 5th toes. Mild soft tissue swelling. No swelling to the ankle. No calf tenderness. RUE AV fistula with palpable thrill. Integumentary: No cyanosis. Small bruise on dorsum of the foot. No erythema. No increased warmth. Neurological: The patient is awake and alert. No focal deficits. Psychiatric: Normal affect. Course 1412: The patient was evaluated in room C12B, and a complete history and physical examination were performed. 1540: The nurse reported that the patients blood glucose was 401 at this time. 1648: I reevaluated the patient at this time who reports that she is currently experiencing left-sided chest pressure. I discussed her test results with her. 1824: I reevaluated the patient at this time who reports that she still has pain. Her blood pressure is elevated. I discussed test results with her. I will page the [facility] hospitalist service. 190: I discussed the patients case with Ewa Ambriz PA-C. Dr. Suzi toledo hospitalist will evaluate the patient for further management. Consultations Consultation #1: I discussed the patients case with Ewa Ambriz PA-C. Dr. Suzi Emmanuel hospitalist will evaluate the patient for further management. Time: 19:09 Administered Medications Discontinued Medications Carvedilol (Coreg) 25 mg PO NOW ONE Stop: 02/04/19 19:31 Last Admin: 02/04/19 20:30 Dose: 25 mg Documented by: [id number] Sodium Chloride (Nss 1000ml) 500 mls @ 999 mls/hr IV .Q31M ONE Stop: 02/04/19 17:21 Last Infusion: 02/04/19 18:06 Dose: 0 mls/hr Documented by: [id number] Admin: 02/04/19 17:06 Dose: 999 mls/hr Documented by: [id number] Insulin Human Regular (Novolin R U-100 Per Unit) 8 units IV NOW STA Stop: 02/04/19 16:25 Last Admin: 02/04/19 17:11 Dose: 8 units Documented by: [id number] Cosigned by: [id number] Morphine Sulfate (Morphine Sulfate) 4 mg IV NOW STA Stop: 02/04/19 18:31 Last Admin: 02/04/19 18:50 Dose: 4 mg Documented by: [id number] Nitroglycerin (Nitro-Bid 2%) 0.5 inch EXT NOW ONE Stop: 02/04/19 16:52 Last Admin: 02/04/19 17:10 Dose: 0.5 inch Documented by: [id number] Ondansetron HCl (Zofran) 4 mg IV NOW STA Stop: 02/04/19 18:31 Last Admin: 02/04/19 18:50 Dose: 4 mg Documented by: [id number] Oxycodone HCl (Roxicodone Immediate Rel) 5 mg PO NOW STA Stop: 02/04/19 16:52 Last Admin: 02/04/19 17:07 Dose: 5 mg Documented by: [id number] Medical Decision Making Differential Diagnosis Differential diagnoses include unstable angina, AL, pleurisy, pneumonia, medication non-compliance, chronic abdominal pain and dehydration amongst others. Medical Records Attestation: I reviewed the patient's medical records. I did perform a limited focused review of portions of the patient's old chart on the electronic medical record. The patient was admitted 12/19/18 for abdominal pain and HHNK. She was found to be constipated and had ileus. Home Medications Current Medication List: was personally reviewed by me Laboratory Data Attestation: I reviewed the patient's lab results. Result diagrams: 02/04/19 15:00 02/04/19 15:00 Lab Results 02/04/19 02/04/19 02/04/19 Range/Units 13:19 13:22 15:00 WBC (4.8-10.8) K/uL RBC (4.2-5.4) M/uL Hgb (12.0-16.0) g/dL Hct (37-47) % MCV (80-100) fL MCH (25-34) pg MCHC (32-36) g/dL RDW Std Deviation (36.4-46.3) fL RDW Coeff of Lebron (11.5-14.5) % Plt Count (130-400) K/uL MPV (7.4-10.4) fL Immature Gran % (Auto) % Neut % (Auto) % Lymph % (Auto) % [place] % (Auto) % Eos % (Auto) % Baso % (Auto) % Immature Gran # (Auto) (0.00-0.02) K/uL Neut # (Auto) (1.4-6.5) K/uL Lymph # (Auto) (1.2-3.4) K/uL [place] # (Auto) (0.11-0.59) K/uL Eos # (Auto) (0-0.5) K/uL Baso # (Auto) (0-0.2) K/uL APTT (21.0-31.0) Seconds PTT Ratio Sodium 134 L (136-145) mmol/L Potassium 4.2 (3.5-5.1) mmol/L Chloride 99 (98-107) mmol/L Carbon Dioxide 30 (21-32) mmol/L Anion Gap 6.0 (3-11) BUN 28 H (7-18) mg/dl Creatinine 3.50 H (0.6-1.2) mg/dl Est Cr Clr Drug Dosing Not Reportable Est GFR ( Amer) 16.7 Est GFR (Non-Af Amer) 14.4 BUN/Creatinine Ratio 7.9 L (10-20) Glucose 401 H* (70-99) mg/dl POC Glucose 433 H* 401 H* (70-99) Calcium 9.0 (8.5-10.1) mg/dl Magnesium 2.5 H (1.8-2.4) mg/dl Total Bilirubin 0.3 (0.2-1) mg/dl AST 10 L (15-37) U/L ALT 23 (12-78) U/L Alkaline Phosphatase 122 H (45-117) U/L POC Troponin I (0-0.045) ng/ml Total Protein 7.6 (6.4-8.2) gm/dl Albumin 3.4 (3.4-5.0) gm/dl Globulin 4.2 H (2.5-4.0) gm/dl Albumin/Globulin Ratio 0.8 L (0.9-2) Lipase 73 (73-393) U/L Beta-Hydroxybutyric Acd 0.95 (0.2-2.81) mg/dl 02/04/19 02/04/19 02/04/19 Range/Units 15:00 15:00 15:04 WBC 5.19 (4.8-10.8) K/uL RBC 3.93 L (4.2-5.4) M/uL Hgb 11.6 L (12.0-16.0) g/dL Hct 34.1 L (37-47) % MCV 86.8 (80-100) fL MCH 29.5 (25-34) pg MCHC 34.0 (32-36) g/dL RDW Std Deviation 44.6 (36.4-46.3) fL RDW Coeff of Lebron 14.1 (11.5-14.5) % Plt Count 284 (130-400) K/uL MPV 10.0 (7.4-10.4) fL Immature Gran % (Auto) 0.2 % Neut % (Auto) 48.0 % Lymph % (Auto) 33.7 % [place] % (Auto) 8.3 % Eos % (Auto) 9.4 % Baso % (Auto) 0.4 % Immature Gran # (Auto) 0.01 (0.00-0.02) K/uL Neut # (Auto) 2.49 (1.4-6.5) K/uL Lymph # (Auto) 1.75 (1.2-3.4) K/uL [place] # (Auto) 0.43 (0.11-0.59) K/uL Eos # (Auto) 0.49 (0-0.5) K/uL Baso # (Auto) 0.02 (0-0.2) K/uL APTT 26.6 (21.0-31.0) Seconds PTT Ratio 1.0 Sodium (136-145) mmol/L Potassium (3.5-5.1) mmol/L Chloride (98-107) mmol/L Carbon Dioxide (21-32) mmol/L Anion Gap (3-11) BUN (7-18) mg/dl Creatinine (0.6-1.2) mg/dl Est Cr Clr Drug Dosing Est GFR ( Amer) Est GFR (Non-Af Amer) BUN/Creatinine Ratio (10-20) Glucose (70-99) mg/dl POC Glucose (70-99) Calcium (8.5-10.1) mg/dl Magnesium (1.8-2.4) mg/dl Total Bilirubin (0.2-1) mg/dl AST (15-37) U/L ALT (12-78) U/L Alkaline Phosphatase (45-117) U/L POC Troponin I < 0.03 (0-0.045) ng/ml Total Protein (6.4-8.2) gm/dl Albumin (3.4-5.0) gm/dl Globulin (2.5-4.0) gm/dl Albumin/Globulin Ratio (0.9-2) Lipase (73-393) U/L Beta-Hydroxybutyric Acd (0.2-2.81) mg/dl 02/04/19 02/04/19 02/04/19 Range/Units 18:35 20:41 20:43 WBC (4.8-10.8) K/uL RBC (4.2-5.4) M/uL Hgb (12.0-16.0) g/dL Hct (37-47) % MCV (80-100) fL MCH (25-34) pg MCHC (32-36) g/dL RDW Std Deviation (36.4-46.3) fL RDW Coeff of Lebron (11.5-14.5) % Plt Count (130-400) K/uL MPV (7.4-10.4) fL Immature Gran % (Auto) % Neut % (Auto) % Lymph % (Auto) % [place] % (Auto) % Eos % (Auto) % Baso % (Auto) % Immature Gran # (Auto) (0.00-0.02) K/uL Neut # (Auto) (1.4-6.5) K/uL Lymph # (Auto) (1.2-3.4) K/uL [place] # (Auto) (0.11-0.59) K/uL Eos # (Auto) (0-0.5) K/uL Baso # (Auto) (0-0.2) K/uL APTT (21.0-31.0) Seconds PTT Ratio Sodium (136-145) mmol/L Potassium (3.5-5.1) mmol/L Chloride (98-107) mmol/L Carbon Dioxide (21-32) mmol/L Anion Gap (3-11) BUN (7-18) mg/dl Creatinine (0.6-1.2) mg/dl Est Cr Clr Drug Dosing Est GFR ( Amer) Est GFR (Non-Af Amer) BUN/Creatinine Ratio (10-20) Glucose (70-99) mg/dl POC Glucose 143 H 37 L* 35 L* (70-99) Calcium (8.5-10.1) mg/dl Magnesium (1.8-2.4) mg/dl Total Bilirubin (0.2-1) mg/dl AST (15-37) U/L ALT (12-78) U/L Alkaline Phosphatase (45-117) U/L POC Troponin I (0-0.045) ng/ml Total Protein (6.4-8.2) gm/dl Albumin (3.4-5.0) gm/dl Globulin (2.5-4.0) gm/dl Albumin/Globulin Ratio (0.9-2) Lipase (73-393) U/L Beta-Hydroxybutyric Acd (0.2-2.81) mg/dl Imaging Data Radiologist's Impression: Radiology results as stated below per my review and the radiologist's interpretation: CT OF THE ABDOMEN AND PELVIS WITHOUT CONTRAST CLINICAL HISTORY: Left lower quadrant pain. Evaluate for acute diverticulitis. COMPARISON STUDY: CT of the abdomen and pelvis December 19, 2018. KUB December 24, 2018. TECHNIQUE: Axial images of the abdomen and pelvis were obtained without IV contrast. Images were reviewed in the axial, sagittal, and coronal planes. Automated exposure control was utilized for the study. A dose lowering technique was utilized adhering to the principles of ALARA. FINDINGS: The heart is mildly enlarged. No pneumatosis, free air or portal v enous gas is present. There is no biliary ductal dilatation status post cholecystectomy. Punctate densities within the renal sinuses could reflect nonobstructing calculi or vascular calcifications. There are no ureteral calculi. There is no hydronephrosis. There is no evidence for a bowel obstructio n. A moderate amount stool is noted. The appendix is not visualized. There is no ascites or lymphadenopathy. Intrauterine device is in place. No suspicious osseous lesions are present. Suspected left thigh sebaceous cyst is noted. There is no evidence for acute diverticulitis. Moderate amount of stool within the colon is noted. IMPRESSION: 1. No acute process within the abdomen or pelvis. 2. Exam compromised the lack of IV contrast. 3. No bowel obstruction. Moderate amount of stool within the colon. No evidence for acute diverticulitis. Electronically signed by: Everardo Williamson M.D. 02/04/2019 6:06 PM XR chest 1V portable HISTORY: 48 years-old Female Chest Pain acute chest trauma status post fall COMPARISON: Chest radiograph 12/19/2018 TECHNIQUE: Portable AP view of the chest FINDINGS: Cardiac silhouette is enlarged, unchanged. There is no pneumothorax, pleural effusion, focal airspace consolidation or overt pulmonary edema. 5 mm loose body about the left axillary recess. Suggestion of left rotator cuff calcific tendinosis. Degenerative changes of the shoulders and spine. IMPRESSION: Cardiomegaly without acute process. The above report was generated using voice recognition software. It may contain grammatical, syntax or spelling errors. Electronically signed by: Flakito Cordero M.D. 02/04/2019 3:29 PM XR foot RT min 3V routine HISTORY: 48 years-old Female pain eval for fx acute right foot pain status post fall COMPARISON: None available TECHNIQUE: 3 views of the right foot FINDINGS: Acute obliquely oriented fracture about the distal neck of the third metatarsal demonstrates 2 mm medial displacement and slight apex medial angulation of the distal fracture fragment. Additionally, there is an acute intra-articular fracture about the medial base of the second proximal phalanx with a 3 mm bone fragment displaced medially by approximately 1-2 mm. Mild first MTP joint with mild multidigit interphalangeal osteoarthritis. No additional acute fracture or subluxation. Arterial calcifications are noted. Mild degenerative changes about the midfoot and hindfoot. Mild forefoot soft tissue swelling. IMPRESSION: 1. Acute mildly displaced and minimally angulated fracture about the third metatarsal neck. 2. Acute intra-articular minimally displaced fracture about the medial base of the second proximal phalanx. 3. Mild forefoot soft tissue swelling. The above report was generated using voice recognition software. It may contain grammatical, syntax or spelling errors. Electronically signed by: Flakito Cordero M.D. 02/04/2019 3:31 PM ECG Data Attestation: I personally reviewed and interpreted this ECG as follows: Indication: chest pain Rate (beats per minute): 66 Rhythm: normal sinus Findings: no PVC and no ST elevation Blood Pressure Blood Pressure Findings: Elevated blood pressure Blood Pressure Disposition: further management by hospitalist MDM Narrative I did evaluate the patient as noted above. Patient is presenting with hyperglycemia and chest discomfort. She describes the chest pain as a pressure on the left side of her chest. She states she has never had similar pain before. She states it is worse when she stands up. She denies any history of heart disease other than having. She does not take any anticoagulants. IV access was established. The patient was placed on a continuous campus monitor. I did order and personally review the patient's 12-lead EKG as described above. She has no evidence of acute ischemia on her twelve-lead EKG. I did order and personally reviewed the images of the patient's chest x-ray as described above. Chest x-ray demonstrates cardiomegaly without any acute process. I did order and review the patient's blood work as noted in the electronic medical record. She is hyperglycemic. She does have chronic anemia. She also has chronic kidney disease. I did treat her with normal saline IV as well as insulin IV. Her blood sugar did come down significantly. I did order x-rays of the right foot. I did review the images myself as well as the radiology report as described above. She does have fractures as described above. I did order a CT of the abdomen and pelvis. I did review the images myself as well as the radiology report as described above. There is no evidence of acute process. I did treat the patient with nitroglycerin paste for her blood pressure and chest pain as well as oxycodone for her foot pain. On reevaluation she still has pain and was given morphine and Zofran IV. I did discuss the test results with patient and her significant other. I did recommend hospitalization for further care and evaluation. I did discuss the case with the hospitalist and manager of case management. Impression & Plan Acute chest pain, Hyperglycemia, ESRD (end stage renal disease), Fracture of right foot, Left sided abdominal pain, Poorly-controlled hypertension Discharge Plan Visit Data Chief Complaint: Hyperglycemia Stated Complaint: DEPRESSION Other Complaint: Mental Health Evaluation ED Provider: Ruperto Pierce Discharge Problem: Acute chest pain, Hyperglycemia, ESRD (end stage renal disease), Fracture of right foot, Left sided abdominal pain, Poorly-controlled hypertension Patient Disposition: Being Evaluated by Hospitalist Forms Stand Alone Forms: My [facility] Prescriptions Prescriptions: No Action multivitamin Tablet 1 tab PO DAILY RF: 0 atorvastatin [Lipitor] 80 mg tablet 80 mg PO DAILY RF: 0 carvedilol 25 mg Tablet 25 mg PO BID RF: 0 polyethylene glycol 3350 [Miralax] 17 gram Powder In Packet 17 g PO BID PRN (Reason: Constipation) RF: 0 aspirin [Aspir-81] 81 mg Tablet,Delayed Release (Dr/Ec) 81 mg PO DAILY RF: 0 bupropion HCl 100 mg tablet 100 mg PO BID RF: 0 metoclopramide HCl [Reglan] 5 mg tablet 5 mg PO BID RF: 0 torsemide 100 mg tablet 100 mg PO DAILY RF: 0 pantoprazole 40 mg Tablet,Delayed Release (Dr/Ec) 40 mg PO DAILY RF: 0 glucose 4 gram Tablet,Chewable 10 g PO UD RF: 0 ergocalciferol (vitamin D2) [Vitamin D2] 50,000 unit capsule 50,000 unit PO MONTHLY RF: 0 Leo Caps 1 mg Capsule 1 cap PO DAILY RF: 0 albuterol sulfate [Proventil HFA] 90 mcg/actuation HFA aerosol inhaler 2 puff inhalation Q4 PRN (Reason: Wheezing) RF: 0 ondansetron 4 mg Tablet,Disintegrating 4 mg PO Q8H PRN (Reason: Nausea) RF: 0 sertraline [Zoloft] 50 mg tablet 50 mg PO DAILY RF: 0 lamotrigine [Lamictal] 100 mg tablet 100 mg PO DAILY RF: 0 bisacodyl 5 mg Tablet 5 mg PO DAILY PRN (Reason: Constipation) RF: 0 insulin lispro [Admelog SoloStar U-100 Insulin] 100 unit/mL insulin pen 2 unit subcut TIDM RF: 0 calcium acetate 667 mg capsule 667 mg PO TIDM RF: 0 quetiapine [Seroquel] 50 mg tablet 25 mg PO BID RF: 0 Basaglar KwikPen U-100 Insulin 100 unit/mL (3 mL) insulin pen 15 unit subcut QPM RF: 0 Basaglar KwikPen U-100 Insulin 100 unit/mL (3 mL) insulin pen 25 unit subcut QAM RF: 0 Breo Ellipta 200-25 mcg/dose Blister With Device 1 inh INHALATION DAILY RF: 0 Referrals Referrals: Mitchel Santo MD [Primary Care Provider] - Discharge Problem: Fracture of right foot Qualifiers: Encounter type: initial encounter Fracture type: closed Qualified Code(s): S92.901A - Unspecified fracture of right foot, initial encounter for closed fracture The scribe's documentation has been prepared under my direction and personally reviewed by me in its entirety. I confirm that the note above accurately reflects all work, treatment, procedures, and medical decision making performed by me.
[2019-02-04] MEDS ORDERED: DEXTROSE 50% 50 ML SYRINGE IV ONE (21:12)
[2019-02-04] MEDS ORDERED: ACETAMINOPHEN 325 MG TAB ONE (21:45)
[2019-02-04] MEDS ORDERED: NITROGLYCERIN SL 0.4 MG/TAB TAB SL PRN (22:36)
[2019-02-04] MEDS ORDERED: DEXTROSE 50% 50 ML SYRINGE IV PRN (22:36)
[2019-02-04] MEDS ORDERED: ACETAMINOPHEN 325 MG TAB PO PRN (22:36)
[2019-02-04] MEDS ORDERED: GLUCOSE 10 TABS/TUBE PO PRN (22:36)
[2019-02-04] MEDS ORDERED: GLUCAGON FOR INJ 1 MG VIAL SQ PRN (22:36)
[2019-02-04] MEDS ORDERED: PROMETHAZINE HCL 12.5 MG in SODIUM CHLORIDE 0.9% 50 ML IV PRN (22:36)
[2019-02-04] MEDS ORDERED: CARBOHYDRATES FOR HYPOGLYCEMIA PO PRN (22:36)
[2019-02-04] MEDS ORDERED: GLUCOSE 40% GEL 15 GM TUBE PO PRN (22:36)
[2019-02-04] MEDS ORDERED: LORazepam 0.25 MG/0.5 ML VIAL IV PRN (22:36)
[2019-02-04] MEDS ORDERED: POLYETHYLENE (MIRALAX) 17 GM PACK PO PRN (22:36)
[2019-02-04] MEDS: OXYCODONE HCL IR 5 MG TAB (IMMEDIATE RELEASE) PO PRN (22:49)
[2019-02-04] MEDS ORDERED: BISACODYL 5 MG TABEC PO PRN (23:00)
[2019-02-05] MEDS: INSULIN GLARGINE SOLOSTAR 100 UNITS/ML 3 ML PEN SQ SCH ×2 (00:16→08:15)
[2019-02-05] MEDS: HEPARIN SOD 5,000 UNIT/0.5 ML VIAL SQ SCH ×4 (00:16→20:39)
[2019-02-05] MEDS: buPROPion HCl 100 MG TABLET PO SCH ×3 (00:17→20:38)
[2019-02-05] MEDS: INSULIN ASPART 100 UNITS/ML 3 ML PEN SC SCH ×4 (00:17→20:40)
[2019-02-05] MEDS: QUETIAPINE FUMARATE 25 MG TABLET PO SCH ×3 (00:18→20:36)
[2019-02-05] MEDS: METOCLOPRAMIDE HCL 5 MG TABLET PO SCH ×3 (00:18→20:39)
[2019-02-05] MEDS: HYDROmorphone INJ 0.5 MG/0.5 ML SYR IV PRN ×5 (00:24→20:48)
[2019-02-05] MEDS ORDERED: INSULIN GLARGINE SOLOSTAR 100 UNITS/ML 3 ML PEN SQ STA (01:10)
[2019-02-05 06:01] LABS: Basophils # (auto) 0.02 K/uL (0-0.2); Basophils % (auto) 0.4 %; Eosinophils # (auto) 0.48 K/uL (0-0.5); Eosinophils % (auto) 9.1 %; Hematocrit (blood only) 32.9 % (37-47); Hemoglobin 10.8 g/dL (12.0-16.0); Immature Granulocytes # (auto) 0.01 K/uL (0.00-0.02); Immature Granulocytes % (auto) 0.2 %; Lymphocytes # (auto) 2.23 K/uL (1.2-3.4); Lymphocytes % (auto) 42.3 %; Mean Corpuscular Hemoglobin 28.6 pg (25-34); Mean Corpuscular Hgb Conc 32.8 g/dL (32-36); Mean Corpuscular Volume 87.3 fL (80-100); Mean Platelet Volume 9.9 fL (7.4-10.4); Monocytes # (auto) 0.31 K/uL (0.11-0.59); Monocytes % (auto) 5.9 %; Neutrophils # (auto) 2.22 K/uL (1.4-6.5); Neutrophils % (auto) 42.1 %; Platelet Count 251 K/uL (130-400); RDW Coefficient of Variation 14.2 % (11.5-14.5); RDW Standard Deviation 44.8 fL (36.4-46.3); Red Blood Count 3.77 M/uL (4.2-5.4); White Blood Count 5.27 K/uL (4.8-10.8)
[2019-02-05 06:11] LABS: Partial Thromboplastin Time 26.5 Seconds (21.0-31.0)
[2019-02-05 06:19] LABS: Estimated Average Glucose 209 mg/dl; Hemoglobin A1C 8.9 % (4.5-5.6)
[2019-02-05 06:35] LABS: BUN Creatinine Ratio 8.2 (10-20); Blood Urea Nitrogen 28 mg/dl (7-18); Calcium 8.4 mg/dl (8.5-10.1); Carbon Dioxide 29 mmol/L (21-32); Chloride 105 mmol/L (98-107); Creatinine Clr Calc Pharmacy 17.9 ml/min; Est GFR (African American) 17.3; Est GFR (Non-African American) 14.9; Glucose 255 mg/dl (70-99); Potassium 4.2 mmol/L (3.5-5.1); Sodium 139 mmol/L (136-145)
[2019-02-05 06:39] LABS: Chol HDL Ratio 3; Cholesterol 158 mg/dl (0-200); HDL Cholesterol 51 mg/dl; LDL Cholesterol Calculated 64 mg/dl; Triglycerides 216 mg/dl (0-150); Troponin I < 0.015 ng/ml (0-0.045); VLDL Cholesterol 43 mg/dl
[2019-02-05] MEDS: lamoTRIgine 100 MG TAB PO SCH (08:14)
[2019-02-05] MEDS: NEPHROCAPS PO SCH (08:14)
[2019-02-05] MEDS: PANTOprazole 40 MG TAB PO SCH (08:14)
[2019-02-05] MEDS: SERTRALINE HCL 50 MG TABLET PO SCH (08:14)
[2019-02-05] MEDS: ASPIRIN 81 MG ECTAB PO SCH (08:14)
[2019-02-05] MEDS: ATORVASTATIN 40 MG TAB PO SCH (08:14)
[2019-02-05] MEDS: TORSEMIDE 100 MG TAB PO SCH (08:14)
[2019-02-05] MEDS: CARVEDILOL 25 MG TAB PO SCH ×2 (08:16→20:38)
[2019-02-05] MEDS: OXYCODONE HCL IR 5 MG TAB (IMMEDIATE RELEASE) PO PRN ×2 (08:24→18:13)
[2019-02-05] MEDS ORDERED: PHARMACY GLYCEMIC MGMT CONSULT PRN (08:39)
[2019-02-05] MEDS ORDERED: INSULIN GLARGINE SOLOSTAR 100 UNITS/ML 3 ML PEN SQ ONE (09:00)
--- NOTE | 2019-02-05 09:43 | Cardiology Consultation ---
Date of Consultation February 05, 2019 Assessment & Plan (1) Acute chest pain: Symptoms atypical for angina possibly exacerbated by recent traumatic injury and fall. Versus hypertension mediated Troponins are negative EKGs are normal. Some symptoms reproduced this morning by palpation of the chest Patient currently undergoing stress testing as part of pretransplant evaluation with recent sub-max dobutamine stress test negative but not diagnostic Recommendations treat hypertension and pain Complete evaluation as outpatient with stress nuclear imaging (2) Poorly-controlled hypertension: (3) ESRD (end stage renal disease) on dialysis: History of Present Illness Reason for Consultation: Left shoulder pain, chest pain Attending Physician: Dawson Mohamud MD History of Present Illness Patient is a 48-year-old female with complex past underlying history of medical issues including type 1 diabetes mellitus, brittle with end-stage renal disease on hemodialysis replacement Past cardiac history is notable for long-standing hypertension past diastolic heart failure/acute renal failure. Patient's undergone prior diagnostic cardiac catheterization 2015 without obstructive disease. Stress nuclear imaging 2018 was equivocal. Recent dobutamine stress testing was submaximal heart rate response but no ischemia and preserved LV systolic function Recent clinical history is notable for hospitalizations with bacteremia, bronchitis, abdominal pain possible basal ganglia stroke Patient presents this admission notes a mechanical fall approximately 2 weeks ago with injury to foot and left shoulder. Notes transient loss of consciousness with head injury but no syncope to initiate event Current chest discomfort is tender to palpation began while eating a meal. With associated symptoms of abdominal pain as well as worsening left foot pain. Patient also concerned regarding marked fluctuation in glucoses. She is referred for additional evaluation Patient currently without complaint other than abdominal pain and foot pain. Troponins are negative EKGs are normal on serial testing x2. Patient feels left shoulder and chest are tender to palpation Allergies Allergy/AdvReac Type Severity Reaction Status Date / Time Fish Containing Products Allergy Mild Hives Verified 02/04/19 15:09 latex Allergy Mild hives Verified 02/04/19 15:09 Home Medications Home Medications Medication Instructions Recorded Confirmed Type Basaglar KwikPen U-100 Insulin 15 unit SUBCUT QPM 12/19/18 02/04/19 History Basaglar KwikPen U-100 Insulin 25 unit SUBCUT QAM 12/19/18 02/04/19 History Breo Ellipta 1 inh INHALATION DAILY 12/19/18 02/04/19 History Leo Caps 1 cap PO DAILY 12/19/18 02/04/19 History albuterol sulfate [Proventil HFA] 2 puff INHALATION Q4 PRN 12/19/18 02/04/19 H istory aspirin [Aspir-81] 81 mg PO DAILY 12/19/18 02/04/19 History atorvastatin [Lipitor] 80 mg PO DAILY 12/19/18 02/04/19 History bisacodyl 5 mg PO DAILY PRN 12/19/18 02/04/19 History bupropion HCl 100 mg PO BID 12/19/18 02/04/19 History calcium acetate 667 mg PO TIDM 12/19/18 02/04/19 History carvedilol 25 mg PO BID 12/19/18 02/04/19 History ergocalciferol (vitamin D2) 50,000 unit PO MONTHLY 12/19/18 02/04/19 History [Vitamin D2] glucose 10 g PO UD 12/19/18 02/04/19 History insulin lispro [Admelog SoloStar 2 unit SUBCUT TIDM 12/19/18 02/04/19 History U-100 Insulin] lamotrigine [Lamictal] 100 mg PO DAILY 12/19/18 02/04/19 History metoclopramide HCl [Reglan] 5 mg PO BID 12/19/18 02/04/19 History multivitamin 1 tab PO DAILY 12/19/18 02/04/19 History ondansetron 4 mg PO Q8H PRN 12/19/18 02/04/19 History pantoprazole 40 mg PO DAILY 12/19/18 02/04/19 History polyethylene glycol 3350 [Miralax] 17 g PO BID PRN 12/19/18 02/04/19 History sertraline [Zoloft] 50 mg PO DAILY 12/19/18 02/04/19 History torsemide 100 mg PO DAILY 12/19/18 02/04/19 History quetiapine 50 mg PO BID 02/05/19 02/05/19 History Patient History Medical History ESRD (end stage renal disease) on dialysis Arteriovenous fistula for hemodialysis in place, primary (Chronic) DM type 1 (diabetes mellitus, type 1) (Chronic) Depression (Chronic) Hyperlipidemia (Chronic) Hypertension (Chronic) History of GI bleed (Chronic) GERD (gastroesophageal reflux disease) (Chronic) Coronary artery disease (Chronic) "2016 - cardiac catheterization showing nonobstructive coronary disease Stress test 06/2017 - possible small area of ischemia in the anterior wall" Diabetic gastroparesis (Chronic) Anemia due to chronic kidney disease (Chronic) Diastolic heart failure (Chronic) Bipolar disorder (Chronic) Seizure (Chronic) CVA (cerebral vascular accident) (Chronic) 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 history of CVA in 2018 Residual R sided weakness CKD (chronic kidney disease) (Acute) Hyperglycemia (Acute) Surgical History Hx of cholecystectomy (Chronic) Hx of appendectomy (Chronic) Hx of tubal ligation (Chronic) Family History Mother Coronary heart disease Hypertension Father Coronary heart disease Other No significant family history Social History Preferred Language: Arabic Communication Ability: Effective Card Hanger Required: No Beliefs That Will Affect Care: None marital status: Single Current Living Situation: Family current occupational status: unemployed Feels Safe at Home: Yes Safety Concerns: Feels Safe At This Time Smoking Status: Never smoker Hx Alcohol Use: No Hx Substance Use: No Physical Exam Constitutional: WD/WN, vitals as above + obese and + language barrier (Mild but general comprehension achieved) ENMT: external ear and nose normal, oropharynx normal Neck: trachea midline, no thyromegaly + thick neck Respiratory: normal respiratory effort, lungs clear to auscultation Cardiovascular: Rate/Rhythm: regular rate and regular rhythm Heart Sounds: normal S1 and normal S2; no gallop and no murmur Chest (Breasts): Additional Comments: Left chest and shoulder tenderness Gastrointestinal (Abdomen): normal bowel sounds, soft, nontender, no hepatosplenomegaly Musculoskeletal: Right foot in boot Results & Data Vital Signs (Past 12 Hours) Vital Signs Temp Pulse Pulse Resp BP Pulse Ox 02/05/19 07:39 36.7 C 65 17 161/77 H 95 02/05/19 04:39 149/74 H 02/05/19 04:08 36.6 C 69 20 97 02/04/19 23:19 36.6 C 67 18 114/65 98 02/04/19 22:38 36.6 C 66 16 139/62 97 02/04/19 21:50 64 16 140/57 L 96 Laboratory Results Laboratory Results - last 24 hr 02/04/19 02/04/19 02/04/19 13:19 13:22 15:00 WBC RBC Hgb Hct MCV MCH MCHC RDW Std Deviation RDW Coeff of Lebron Plt Count MPV Immature Gran % (Auto) Neut % (Auto) Lymph % (Auto) Blaine % (Auto) Eos % (Auto) Baso % (Auto) Immature Gran # (Auto) Neut # (Auto) Lymph # (Auto) Blaine # (Auto) Eos # (Auto) Baso # (Auto) APTT PTT Ratio Sodium 134 L Potassium 4.2 Chloride 99 Carbon Dioxide 30 Anion Gap 6.0 BUN 28 H Creatinine 3.50 H Est Cr Clr Drug Dosing Not Reportable Est GFR ( Amer) 16.7 Est GFR (Non-Af Amer) 14.4 BUN/Creatinine Ratio 7.9 L Glucose 401 H* POC Glucose 433 H* 401 H* Estimat Average Glucose Hemoglobin A1c Hgb A1c Pathologist Com Calcium 9.0 Magnesium 2.5 H Total Bilirubin 0.3 AST 10 L ALT 23 Alkaline Phosphatase 122 H POC Troponin I Troponin I Total Protein 7.6 Albumin 3.4 Globulin 4.2 H Albumin/Globulin Ratio 0.8 L Triglycerides Cholesterol LDL Cholesterol, Calc VLDL Cholesterol, Calc HDL Cholesterol Cholesterol/HDL Ratio Lipase 73 Beta-Hydroxybutyric Acd 0.95 Nasal Screen MRSA (PCR) 02/04/19 02/04/19 02/04/19 15:00 15:00 15:04 WBC 5.19 RBC 3.93 L Hgb 11.6 L Hct 34.1 L MCV 86.8 MCH 29.5 MCHC 34.0 RDW Std Deviation 44.6 RDW Coeff of Lebron 14.1 Plt Count 284 MPV 10.0 Immature Gran % (Auto) 0.2 Neut % (Auto) 48.0 Lymph % (Auto) 33.7 Blaine % (Auto) 8.3 Eos % (Auto) 9.4 Baso % (Auto) 0.4 Immature Gran # (Auto) 0.01 Neut # (Auto) 2.49 Lymph # (Auto) 1.75 Blaine # (Auto) 0.43 Eos # (Auto) 0.49 Baso # (Auto) 0.02 APTT 26.6 PTT Ratio 1.0 Sodium Potassium Chloride Carbon Dioxide Anion Gap BUN Creatinine Est Cr Clr Drug Dosing Est GFR ( Amer) Est GFR (Non-Af Amer) BUN/Creatinine Ratio Glucose POC Glucose Estimat Average Glucose Hemoglobin A1c Hgb A1c Pathologist Com Calcium Magnesium Total Bilirubin AST ALT Alkaline Phosphatase POC Troponin I < 0.03 Troponin I Total Protein Albumin Globulin Albumin/Globulin Ratio Triglycerides Cholesterol LDL Cholesterol, Calc VLDL Cholesterol, Calc HDL Cholesterol Cholesterol/HDL Ratio Lipase Beta-Hydroxybutyric Acd Nasal Screen MRSA (PCR) 02/04/19 02/04/19 02/04/19 18:35 20:20 20:41 WBC RBC Hgb Hct MCV MCH MCHC RDW Std Deviation RDW Coeff of Lebron Plt Count MPV Immature Gran % (Auto) Neut % (Auto) Lymph % (Auto) Blaine % (Auto) Eos % (Auto) Baso % (Auto) Immature Gran # (Auto) Neut # (Auto) Lymph # (Auto) Blaine # (Auto) Eos # (Auto) Baso # (Auto) APTT PTT Ratio Sodium Potassium Chloride Carbon Dioxide Anion Gap BUN Creatinine Est Cr Clr Drug Dosing Est GFR ( Amer) Est GFR (Non-Af Amer) BUN/Creatinine Ratio Glucose POC Glucose 143 H 37 L* Estimat Average Glucose Hemoglobin A1c Hgb A1c Pathologist Com Calcium Magnesium Total Bilirubin AST ALT Alkaline Phosphatase POC Troponin I Troponin I < 0.015 Total Protein Albumin Globulin Albumin/Globulin Ratio Triglycerides Cholesterol LDL Cholesterol, Calc VLDL Cholesterol, Calc HDL Cholesterol Cholesterol/HDL Ratio Lipase Beta-Hydroxybutyric Acd Nasal Screen MRSA (PCR) 02/04/19 02/04/19 02/04/19 20:43 21:05 21:33 WBC RBC Hgb Hct MCV MCH MCHC RDW Std Deviation RDW Coeff of Lebron Plt Count MPV Immature Gran % (Auto) Neut % (Auto) Lymph % (Auto) Blaine % (Auto) Eos % (Auto) Baso % (Auto) Immature Gran # (Auto) Neut # (Auto) Lymph # (Auto) Blaine # (Auto) Eos # (Auto) Baso # (Auto) APTT PTT Ratio Sodium Potassium Chloride Carbon Dioxide Anion Gap BUN Creatinine Est Cr Clr Drug Dosing Est GFR ( Amer) Est GFR (Non-Af Amer) BUN/Creatinine Ratio Glucose POC Glucose 35 L* 40 L* 242 H Estimat Average Glucose Hemoglobin A1c Hgb A1c Pathologist Com Calcium Magnesium Total Bilirubin AST ALT Alkaline Phosphatase POC Troponin I Troponin I Total Protein Albumin Globulin Albumin/Globulin Ratio Triglycerides Cholesterol LDL Cholesterol, Calc VLDL Cholesterol, Calc HDL Cholesterol Cholesterol/HDL Ratio Lipase Beta-Hydroxybutyric Acd Nasal Screen MRSA (PCR) 02/04/19 02/05/19 02/05/19 22:03 00:06 03:59 WBC RBC Hgb Hct MCV MCH MCHC RDW Std Deviation RDW Coeff of Lebron Plt Count MPV Immature Gran % (Auto) Neut % (Auto) Lymph % (Auto) Blaine % (Auto) Eos % (Auto) Baso % (Auto) Immature Gran # (Auto) Neut # (Auto) Lymph # (Auto) Blaine # (Auto) Eos # (Auto) Baso # (Auto) APTT PTT Ratio Sodium Potassium Chloride Carbon Dioxide Anion Gap BUN Creatinine Est Cr Clr Drug Dosing Est GFR ( Amer) Est GFR (Non-Af Amer) BUN/Creatinine Ratio Glucose POC Glucose 176 H 220 H 273 H Estimat Average Glucose Hemoglobin A1c Hgb A1c Pathologist Com Calcium Magnesium Total Bilirubin AST ALT Alkaline Phosphatase POC Troponin I Troponin I Total Protein Albumin Globulin Albumin/Globulin Ratio Triglycerides Cholesterol LDL Cholesterol, Calc VLDL Cholesterol, Calc HDL Cholesterol Cholesterol/HDL Ratio Lipase Beta-Hydroxybutyric Acd Nasal Screen MRSA (PCR) 02/05/19 02/05/19 02/05/19 04:00 05:23 05:23 WBC 5.27 RBC 3.77 L Hgb 10.8 L Hct 32.9 L MCV 87.3 MCH 28.6 MCHC 32.8 RDW Std Deviation 44.8 RDW Coeff of Lebron 14.2 Plt Count 251 MPV 9.9 Immature Gran % (Auto) 0.2 Neut % (Auto) 42.1 Lymph % (Auto) 42.3 Blaine % (Auto) 5.9 Eos % (Auto) 9.1 Baso % (Auto) 0.4 Immature Gran # (Auto) 0.01 Neut # (Auto) 2.22 Lymph # (Auto) 2.23 Blaine # (Auto) 0.31 Eos # (Auto) 0.48 Baso # (Auto) 0.02 APTT PTT Ratio Sodium Potassium Chloride Carbon Dioxide Anion Gap BUN Creatinine Est Cr Clr Drug Dosing Est GFR ( Amer) Est GFR (Non-Af Amer) BUN/Creatinine Ratio Glucose POC Glucose Estimat Average Glucose 209 Hemoglobin A1c 8.9 H Hgb A1c Pathologist Com Calcium Magnesium Total Bilirubin AST ALT Alkaline Phosphatase POC Troponin I Troponin I Total Protein Albumin Globulin Albumin/Globulin Ratio Triglycerides Cholesterol LDL Cholesterol, Calc VLDL Cholesterol, Calc HDL Cholesterol Cholesterol/HDL Ratio Lipase Beta-Hydroxybutyric Acd Nasal Screen MRSA (PCR) Negative 02/05/19 02/05/19 02/05/19 05:23 05:23 07:13 WBC RBC Hgb Hct MCV MCH MCHC RDW Std Deviation RDW Coeff of Lebron Plt Count MPV Immature Gran % (Auto) Neut % (Auto) Lymph % (Auto) Blaine % (Auto) Eos % (Auto) Baso % (Auto) Immature Gran # (Auto) Neut # (Auto) Lymph # (Auto) Blaine # (Auto) Eos # (Auto) Baso # (Auto) APTT 26.5 PTT Ratio 1.0 Sodium 139 Potassium 4.2 Chloride 105 Carbon Dioxide 29 Anion Gap 5.0 BUN 28 H Creatinine 3.41 H Est Cr Clr Drug Dosing 17.9 Est GFR ( Amer) 17.3 Est GFR (Non-Af Amer) 14.9 BUN/Creatinine Ratio 8.2 L Glucose 255 H POC Glucose 222 H Estimat Average Glucose Hemoglobin A1c Hgb A1c Pathologist Com Calcium 8.4 L Magnesium Total Bilirubin AST ALT Alkaline Phosphatase POC Troponin I Troponin I < 0.015 Total Protein Albumin Globulin Albumin/Globulin Ratio Triglycerides 216 H Cholesterol 158 LDL Cholesterol, Calc 64 VLDL Cholesterol, Calc 43 HDL Cholesterol 51 Cholesterol/HDL Ratio 3 Lipase Beta-Hydroxybutyric Acd Nasal Screen MRSA (PCR) Diagnostic Findings Echocardiogram 11/17/2018 Calculated LV ejection Fraction = 69% (bi-plane method of discs). No LV segmental wall motion abnormalities. Nondilated cardiac chambers. There is aortic valve sclerosis without stenosis. Mild aortic valve regurgitation is present. Trace to mild mitral regurgitation is present. The right ventricular systolic function is normal as assessed by tricuspid annular plane systolic excursion (TAPSE) (normal >1.7 cm). 10mL of agitated normal saline solution was given intravenously for a bubble study to assess for intracardiac shunt. There are no microbubbles visualized in the left heart suggesting no right to left intracardiac shunt. Compared to prior study of March 25, 2018, there is no significant change. ECG Additional Comments: 05-FEB-2019 06:34:08 [facility]-PCU ROUTINE RETRIEVAL Normal sinus rhythm Normal ECG When compared with ECG of 04-FEB-2019 15:41, (unconfirmed) No significant change was found
[2019-02-05] MEDS ORDERED: SODIUM CHLORIDE 0.9% 1000ML 1,000 ML IV PRN (09:45)
[2019-02-05] MEDS ORDERED: HEPARIN SOD (PORCINE) 1000 UNIT/ML 10 ML VIAL IV ONE (09:45)
[2019-02-05] MEDS ORDERED: EPOETIN ALFA 4,000 UNIT/ML VIAL IV SCH (10:00)
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
--- NOTE | 2019-02-05 11:20 | XRay Report ---
LEFT SHOULDER 3 VIEWS HISTORY: Left Shoulder Pain, H/O Fall COMPARISON: None. FINDINGS: There is no fracture or dislocation. The left clavicle is intact. Punctate calcification at the distal supraspinatus tendon consistent with a calcific tendinitis. Well-corticated 6 mm ossific density inferior to the glenoid. This could be due to old trauma or degenerative change and favors an intra-articular loose body. No radiopaque foreign bodies. IMPRESSION: 1. No acute fracture or dislocation within the left shoulder. 2. Mild supraspinatus calcific tendinitis. 3. A 6 mm intra-articular loose body adjacent to the inferior glenoid. This may be a result of old tr auma. Electronically signed by: Jairon Shannon M.D. 02/05/2019 11:18 AM
--- NOTE | 2019-02-05 12:06 | Pharmacy Report ---
Glycemic Control Consultation - Date of Service February 05, 2019 - Scope Scope: Glycemic Pharmacist consulted by Dr Mohamud on 02/05/19 for glycemic control and to write orders per [facility] inpatient glycemic control protocol - Objective Weight: 66.3 kg Accuchecks BSG (last 24hrs): 02/04/19 02/04/19 02/04/19 13:19 13:22 15:00 Glucose 401 H* POC Glucose 433 H* 401 H* 02/04/19 02/04/19 02/04/19 18:35 20:41 20:43 Glucose POC Glucose 143 H 37 L* 35 L* 02/04/19 02/04/19 02/04/19 21:05 21:33 22:03 Glucose POC Glucose 40 L* 242 H 176 H 02/05/19 02/05/19 02/05/19 00:06 03:59 05:23 Glucose 255 H POC Glucose 220 H 273 H 02/05/19 07:13 Glucose POC Glucose 222 H Laboratory Data (last 24hrs): 02/04/19 02/05/19 15:00 05:23 Potassium 4.2 4.2 Carbon Dioxide 30 29 Anion Gap 6.0 5.0 Creatinine 3.50 H 3.41 H Est Cr Clr Drug Dosing Not Reportable 17.9 Beta-Hydroxybutyric Acd 0.95 HbA1c: Hemoglobin A1c 8.9 % (4.5-5.6) H 02/05/19 05:23 * However, this result is likely somewhat unreliable in ESRD patients d/t interactions between the A1c analyzing technique and high levels of urea in ESRD, reduced RBC life span, iron deficiency anemia, and EPO administration. HbA1c > 7.5% in ESRD patient may overestimate the extent of hyperglycemia in ESRD patients. - Recent Pertinent Medications Outpatient Anti-diabetic Regimen: * Glargine (Basaglar) 25 units in AM + 15 units in PM * Lispro 2 units SQ TIDM - Assessment & Plan Assessment & Plan: ASSESSMENT: * 48yo type 1 diabetic female known to pharmacy from previous admissions/glycemic consults * Pt with severe hyperglycemia on admission nd then critical hypoglycemia after receiving IV insulin bolus in ED. * Pt is NPO --> will still require 50-80% of basal insulin dosing. Outpatient dosing is heavily weighted towards basal insulin and may be covering some prandial needs. Therefore, will dose at the lower range of 50% of outpatient dosing for NPO * Pt with ESRD on HD. A1c not reliable. Will adjust insulin based on BSGs instead of A1c * We have used regular insulin (instead of NovoLog) for gastroparesis. May need to change once diet is resumed PLAN FOR INPATIENT GLYCEMIC CONTROL: * Basal insulin * Lantus 12 units SQ AM + 8 units SQ PM * This is 50% of outpatient dosing- ok to give while NPO * Bolus insulin * NovoLog per scale ACHS or Q6hrs while NPO * Goal Range: Low 120 mg/dL - High 160 mg/dL * Correction Factor: 25 mg/dL/unit * Nutritional / Prandial insulin per carb ratio of 1 unit per 15 grams CHO consumed * Please note that the plan above was derived based on current level of insulin resistance and hospital stress. These recommendations are appropriate for inpatient admission only. Plan of care upon discharge will need to be reassessed to avoid potential outpatient hypo/hyperglycemia. Thank you.
[2019-02-05] MEDS: CALCIUM ACETATE 667 MG CAP PO SCH ×3 (12:42→17:28)
[2019-02-05] MEDS: MULTIVITAMIN TAB PO SCH (12:44)
[2019-02-05] MEDS: HEPARIN SOD (PORCINE) 1000 UNIT/ML 10 ML VIAL IV SCH (12:51)
--- NOTE | 2019-02-05 14:51 | Orthopedic Consultation ---
Date of Consultation February 05, 2019 Assessment & Plan (1) Fracture of third metacarpal bone: She sustained the fractures to her foot about 2 weeks ago. She been placed in a walking boot at [facility]. I would continue her in this walking boot. She can be weightbearing as tolerated. She is to follow-up in 4 weeks in the office for new x-rays. Ortho will sign off for now. Present on Admission?: Yes (2) Phalanx fracture, foot: Present on Admission?: Yes History of Present Illness Reason for Consultation: Right foot fractures Attending Physician: Dawson Mohamud MD History of Present Illness The patient is a 48-year-old female sustained a fall down the stairs on January 16. She has had pain and difficulty ambulating with that foot since that time. She had been evaluated at [facility] x-rays were obtained which demonstrated metatarsal fracture. She has been placed in a walking boot. She states she continues to have pain in the foot. Allergies Allergy/AdvReac Type Severity Reaction Status Date / Time Fish Containing Products Allergy Mild Hives Verified 02/04/19 15:09 latex Allergy Mild hives Verified 02/04/19 15:09 Home Medications Home Medications Medication Instructions Recorded Confirmed Type Basaglar KwikPen U-100 Insulin 15 unit SUBCUT QPM 12/19/18 02/04/19 History Basaglar KwikPen U-100 Insulin 25 unit SUBCUT QAM 12/19/18 02/04/19 History Breo Ellipta 1 inh INHALATION DAILY 12/19/18 02/04/19 History [place] Caps 1 cap PO DAILY 12/19/18 02/04/19 History albuterol sulfate [Proventil HFA] 2 puff INHALATION Q4 PRN 12/19/18 02/04/19 History aspirin [Aspir-81] 81 mg PO DAILY 12/19/18 02/04/19 History atorvastatin [Lipitor] 80 mg PO DAILY 12/19/18 02/04/19 History bisacodyl 5 mg PO DAILY PRN 12/19/18 02/04/19 History bupropion HCl 100 mg PO BID 12/19/18 02/04/19 History calcium acetate 667 mg PO TIDM 12/19/18 02/04/19 History carvedilol 25 mg PO BID 12/19/18 02/04/19 History ergocalciferol (vitamin D2) 50,000 unit PO MONTHLY 12/19/18 02/04/19 History [Vitamin D2] glucose 10 g PO UD 12/19/18 02/04/19 History insulin lispro [Admelog SoloStar 2 unit SUBCUT TIDM 12/19/18 02/04/19 History U-100 Insulin] lamotrigine [Lamictal] 100 mg PO DAILY 12/19/18 02/04/19 History metoclopramide HCl [Reglan] 5 mg PO BID 12/19/18 02/04/19 History multivitamin 1 tab PO DAILY 12/19/18 02/04/19 History ondansetron 4 mg PO Q8H PRN 12/19/18 02/04/19 History pantoprazole 40 mg PO DAILY 12/19/18 02/04/19 History polyethylene glycol 3350 [Miralax] 17 g PO BID PRN 12/19/18 02/04/19 History sertraline [Zoloft] 50 mg PO DAILY 12/19/18 02/04/19 History torsemide 100 mg PO DAILY 12/19/18 02/04/19 History quetiapine 50 mg PO BID 02/05/19 02/05/19 History Patient History Medical History ESRD (end stage renal disease) on dialysis Arteriovenous fistula for hemodialysis in place, primary (Chronic) DM type 1 (diabetes mellitus, type 1) (Chronic) Depression (Chronic) Hyperlipidemia (Chronic) Hypertension (Chronic) History of GI bleed (Chronic) GERD (gastroesophageal reflux disease) (Chronic) Coronary artery disease (Chronic) "2016 - cardiac catheterization showing nonobstructive coronary disease Stress test 06/2017 - possible small area of ischemia in the anterior wall" Diabetic gastroparesis (Chronic) Anemia due to chronic kidney disease (Chronic) Diastolic heart failure (Chronic) Bipolar disorder (Chronic) Seizure (Chronic) CVA (cerebral vascular accident) (Chronic) 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 history of CVA in 2018 Residual R sided weakness CKD (chronic kidney disease) (Acute) Hyperglycemia (Acute) Surgical History Hx of cholecystectomy (Chronic) Hx of appendectomy (Chronic) Hx of tubal ligation (Chronic) Family History Mother Coronary heart disease Hypertension Father Coronary heart disease Other No significant family history Social History Preferred Language: Libyan Communication Ability: Effective Sash Assembler Required: No Beliefs That Will Affect Care: None marital status: Current Living Situation: Family current occupational status: unemployed Feels Safe at Home: Yes Safety Concerns: Feels Safe At This Time Smoking Status: Never smoker Hx Alcohol Use: No Hx Substance Use: No Physical Exam Constitutional: WD/WN, vitals as above Neck: normal visual inspection Respiratory: normal respiratory effort Cardiovascular: Rate/Rhythm: regular rate Musculoskeletal: Right foot: She is tender to palpation over the distal aspect of the third metatarsal. She also is tenderness in the second toe. No significant swelling is appreciated. No significant ecchymoses. No erythema. Light touch sensation is intact. She is able to move the first fourth and fifth toes she has difficulty in moving the second and third toes secondary to pain. Results & Data Vital Signs (Past 12 Hours) Vital Signs Temp Pulse Pulse Pulse Pulse Resp BP 02/05/19 14:20 58 L 126/58 L 02/05/19 14:00 60 123/58 L 02/05/19 13:40 58 L 128/58 L 02/05/19 13:20 59 L 128/61 02/05/19 13:00 60 117/56 L 02/05/19 12:40 61 123/63 02/05/19 12:20 61 125/60 02/05/19 12:00 60 124/57 L 02/05/19 11:36 36.9 C 62 62 136/68 02/05/19 07:39 36.7 C 65 17 02/05/19 04:39 02/05/19 04:08 36.6 C 69 20 BP Pulse Ox 02/05/19 14:20 02/05/19 14:00 02/05/19 13:40 02/05/19 13:20 02/05/19 13:00 02/05/19 12:40 02/05/19 12:20 02/05/19 12:00 02/05/19 11:36 02/05/19 07:39 161/77 H 95 02/05/19 04:39 149/74 H 02/05/19 04:08 97
--- NOTE | 2019-02-05 15:39 | Hospitalist Progress Note ---
Date of Service February 05, 2019 Assessment & Plan (1) Acute chest pain: Chest pain Hypertensive urgency H/O CAD EKG no signs of acute ischemia Troponins x2-Negative ? Medication complaints Chest pain is reproducible on exam Recently had submaximal dobutamine stress test which was negative/nondiagnostic Pain likely contributing to elevated blood pressure Appreciate cardiology input Continue aspirin, carvedilol, atorvastatin Blood pressure control Acute mildly displaced fracture of the third metatarsal neck Acute intra-articular displaced fracture--medial base of the second proximal phalanx Mild supraspinatus calcific tendinitis S/P Mechanical Fall Foot X ray:Acute mildly displaced and minimally angulated fracture about the third metatarsal neck. Acute intra-articular minimally displaced fracture about the medial base of the second proximal phalanx. Mild forefoot soft tissue swelling. Shoulder X ray:No acute fracture or dislocation within the left shoulder. Mild supraspinatus calcific tendinitis. A 6 mm intra-articular loose body adjacent to the inferior glenoid. This may be a result of old trauma. Weightbearing as tolerated Continue walking boot PT OT evaluation Needs follow-up with orthopedics in 4 weeks as outpatient with imaging studies Pain control Depression Reported diagnosis of bipolar disorder Questionable medication compliance Continue psychotropic medications Need evaluation prior to discharge for possible inpatient psychiatric admission Appreciate psychiatric input DM Type I Hb A1c of 7.15 December 2018 Continue insulin sliding scale, Lantus Monitor blood glucose levels H/O chronic diastolic heart failure No signs of volume overload Continue torsemide Monitor volume status ESRD on hemodialysis Hemodialysis as per nephrology Uterine fibroid S/P IUD insertion CT ABD:No acute process within the abdomen or pelvis. Exam compromised the lack of IV contrast. No bowel obstruction. Moderate amount of stool within the colon. No evidence for acute diverticulitis. OBGYN follow up as outpatient Functional disability Recurrent ER visits/admissions at local hospitals PT/OT eval DVT Px: Heparin SQ Code Status Full code Disposition: To be determined Subjective Patient is seen and examined at bedside Has multiple complaints today States having chest pain which is reproducible Discussed with cardiology today Also complains of right foot pain and left shoulder pain today Has intermittent SOB Denies any nausea, vomiting, dizziness Review of Systems Review of Systems: All systems reviewed & are unremarkable except as noted in HPI & below Physical Exam Physical Exam: Physical Exam: Vitals signs as noted above General Appearance:Moderately built and nourished, no apparent distress Head: normocephalic, Atraumatic Eyes: normal inspection, EOMI Neck: supple, Trachea midline Respiratory/Chest: Normal breath sounds, CTA Cardiovascular: S1, S2, No murmur, +chest tenderness Abdomen/GI:Soft, Non tender, Bowel sounds present Extremities/Musculoskelatal:normal inspection, no edema, Right foot in boot, left shoulder mild tenderness Neurologic/Psych:AAOX3, grossly no focal neurological deficits, +depression Skin: normal color, warm Results & Data Vital Signs (Past 12 Hours) Vital Signs Temp Pulse Pulse Pulse Pulse Resp BP 02/05/19 15:00 59 L 132/62 02/05/19 14:40 60 126/65 02/05/19 14:20 58 L 126/58 L 02/05/19 14:00 60 123/58 L 02/05/19 13:40 58 L 128/58 L 02/05/19 13:20 59 L 128/61 02/05/19 13:00 60 117/56 L 02/05/19 12:40 61 123/63 02/05/19 12:20 61 125/60 02/05/19 12:00 60 124/57 L 02/05/19 11:36 36.9 C 62 62 136/68 02/05/19 07:39 36.7 C 65 17 02/05/19 04:39 02/05/19 04:08 36.6 C 69 20 BP Pulse Ox 02/05/19 15:00 02/05/19 14:40 02/05/19 14:20 02/05/19 14:00 02/05/19 13:40 02/05/19 13:20 02/05/19 13:00 02/05/19 12:40 02/05/19 12:20 02/05/19 12:00 02/05/19 11:36 02/05/19 07:39 161/77 H 95 02/05/19 04:39 149/74 H 02/05/19 04:08 97 Laboratory Results Short CBC 02/05/19 Range/Units 05:23 WBC 5.27 (4.8-10.8) K/uL Hgb 10.8 L (12.0-16.0) g/dL Hct 32.9 L (37-47) % Plt Count 251 (130-400) K/uL BMP 02/04/19 02/05/19 15:00 05:23 Sodium 134 L 139 Potassium 4.2 4.2 Chloride 99 105 Carbon Dioxide 30 29 BUN 28 H 28 H Creatinine 3.50 H 3.41 H Glucose 401 H* 255 H Calcium 9.0 8.4 L Cardiac Enzymes 02/04/19 02/05/19 Range/Units 20:20 05:23 Troponin I < 0.015 < 0.015 (0-0.045) ng/ml Liver Function 02/04/19 Range/Units 15:00 Total Bilirubin 0.3 (0.2-1) mg/dl AST 10 L (15-37) U/L ALT 23 (12-78) U/L Alkaline Phosphatase 122 H (45-117) U/L Albumin 3.4 (3.4-5.0) gm/dl Diagnostic Findings Shoulder X ray: 1. No acute fracture or dislocation within the left shoulder. 2. Mild supraspinatus calcific tendinitis. 3. A 6 mm intra-articular loose body adjacent to the inferior glenoid. This may be a result of old trauma.
--- NOTE | 2019-02-05 17:23 | Nephrology Consultation ---
Date of Consultation February 05, 2019 Assessment & Plan (1) ESRD (end stage renal disease) on dialysis: Patient with ESRD on dialysis Saturday at [facility]. Her last dialysis was on Saturday. She has right upper arm AV fistula. Today's her regular dialysis day. We will dialyze her for 4 hours blood flow 300 dialysate flow 600 and target UF of 1 L. Next dialysis will be Saturday. (2) Poorly-controlled hypertension: Blood pressure is above target today. Patient has history of ischemic stroke in setting of relative hypotension. No need for aggressive blood pressure control. Maintain systolic blood pressure of 140 at 150. Continue Coreg and torsemide (3) Anemia due to chronic kidney disease: Hemoglobin of 10.8. We will not give Epogen today. History of Present Illness Reason for Consultation: ESRD on dialysis Requesting Physician: Suzi Roberto MD Attending Physician: Dawson Mohamud MD History of Present Illness This is 48-year-old female with ESRD on dialysis Saturday under my care at [facility] who was admitted on 02/04/2019 with weakness and fall at home. Other past medical history include brittle DM1, gastroparesis, bipolar disorder for which she has needed multiple hospital stays in past; chronic abdominal pain, acute L basal ganglia stroke November 2018 and recurrent hospitalizations for uncontrolled diabetes of falls. She was recently hospitalized at [facility] from 02/02-02/03 for weakness after dialysis. Her last dialysis was on Saturday. She apparently felt dizzy after discharge and was readmitted. This morning she reports improvement in her dizziness. No shortness of breath or leg swelling. She recently fell and has fracture of her right ankle for which she wears a boot. No vomiting or diarrhea. She has poor appetite due to gastroparesis. I have been asked to evaluate her for dialysis support. Allergies Allergy/AdvReac Type Severity Reaction Status Date / Time Fish Containing Products Allergy Mild Hives Verified 02/04/19 15:09 latex Allergy Mild hives Verified 02/04/19 15:09 Home Medications Home Medications Medication Instructions Recorded Confirmed Type Basaglar KwikPen U-100 Insulin 15 unit SUBCUT QPM 12/19/18 02/04/19 History Basaglar KwikPen U-100 Insulin 25 unit SUBCUT QAM 12/19/18 02/04/19 History Breo Ellipta 1 inh INHALATION DAILY 12/19/18 02/04/19 History [place] Caps 1 cap PO DAILY 12/19/18 02/04/19 History albuterol sulfate [Proventil HFA] 2 puff INHALATION Q4 PRN 12/19/18 02/04/19 History aspirin [Aspir-81] 81 mg PO DAILY 12/19/18 02/04/19 History atorvastatin [Lipitor] 80 mg PO DAILY 12/19/18 02/04/19 History bisacodyl 5 mg PO DAILY PRN 12/19/18 02/04/19 History bupropion HCl 100 mg PO BID 12/19/18 02/04/19 History calcium acetate 667 mg PO TIDM 12/19/18 02/04/19 History carvedilol 25 mg PO BID 12/19/18 02/04/19 History ergocalciferol (vitamin D2) 50,000 unit PO MONTHLY 12/19/18 02/04/19 History [Vitamin D2] glucose 10 g PO UD 12/19/18 02/04/19 History insulin lispro [Admelog SoloStar 2 unit SUBCUT TIDM 12/19/18 02/04/19 History U-100 Insulin] lamotrigine [Lamictal] 100 mg PO DAILY 12/19/18 02/04/19 History metoclopramide HCl [Reglan] 5 mg PO BID 12/19/18 02/04/19 History multivitamin 1 tab PO DAILY 12/19/18 02/04/19 History ondansetron 4 mg PO Q8H PRN 12/19/18 02/04/19 History pantoprazole 40 mg PO DAILY 12/19/18 02/04/19 History polyethylene glycol 3350 [Miralax] 17 g PO BID PRN 12/19/18 02/04/19 History sertraline [Zoloft] 50 mg PO DAILY 12/19/18 02/04/19 History torsemide 100 mg PO DAILY 12/19/18 02/04/19 History quetiapine 50 mg PO BID 02/05/19 02/05/19 History Patient History Medical History ESRD (end stage renal disease) on dialysis Arteriovenous fistula for hemodialysis in place, primary (Chronic) DM type 1 (diabetes mellitus, type 1) (Chronic) Depression (Chronic) Hyperlipidemia (Chronic) Hypertension (Chronic) History of GI bleed (Chronic) GERD (gastroesophageal reflux disease) (Chronic) Coronary artery disease (Chronic) "2016 - cardiac catheterization showing nonobstructive coronary disease Stress test 06/2017 - possible small area of ischemia in the anterior wall" Diabetic gastroparesis (Chronic) Anemia due to chronic kidney disease (Chronic) Diastolic heart failure (Chronic) Bipolar disorder (Chronic) Seizure (Chronic) CVA (cerebral vascular accident) (Chronic) 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 history of CVA in 2018 Residual R sided weakness CKD (chronic kidney disease) (Acute) Hyperglycemia (Acute) Surgical History Hx of cholecystectomy (Chronic) Hx of appendectomy (Chronic) Hx of tubal ligation (Chronic) Family History Mother Coronary heart disease Hypertension Father Coronary heart disease Other No significant family history Social History Preferred Language: Romansh Communication Ability: Effective Vocational Nursing Instructor Required: No Beliefs That Will Affect Care: None marital status: Current Living Situation: Family current occupational status: unemployed Feels Safe at Home: Yes Safety Concerns: Feels Safe At This Time Smoking Status: Never smoker Hx Alcohol Use: No Hx Substance Use: No Review of Systems Review of Systems: All systems reviewed & are unremarkable except as noted in HPI & below Physical Exam Physical Exam: General exam: Appears comfortable, no acute distress HEENT: Pupils are equal and reactive to light Neck: No JVD, neck is supple trachea is midline Respiratory system: Clear breath sounds bilaterally. Gastrointestinal: Abdomen is soft, non distended, non tender, bowel sounds are present CVS: Regular rate and rhythm. No murmurs, rubs or gallops Musculoskeletal: No joint or muscle tenderness Extremities: Non tender, no edema, peripheral pulses are present. She is wearing a boot on her right foot Neuro: Oriented, no tremors, no focal neurological deficits Skin: No rashes Access: Right upper arm AV fistula with good bruit Results & Data Vital Signs (Past 12 Hours) Vital Signs Temp Pulse Pulse Pulse Resp BP BP 08/29/19 15:24 36.9 C 61 150/66 H 02/05/19 15:07 61 150/66 H 02/05/19 15:00 59 L 132/62 02/05/19 14:40 60 126/65 02/05/19 14:20 58 L 126/58 L 02/05/19 14:00 60 123/58 L 02/05/19 13:40 58 L 128/58 L 02/05/19 13:20 59 L 128/61 02/05/19 13:00 60 117/56 L 02/05/19 12:40 61 123/63 02/05/19 12:20 61 125/60 02/05/19 12:00 60 124/57 L 02/05/19 11:36 36.9 C 62 62 136/68 02/05/19 07:39 36.7 C 65 17 161/77 H Pulse Ox 02/05/19 15:24 02/05/19 15:07 02/05/19 15:00 02/05/19 14:40 02/05/19 14:20 02/05/19 14:00 02/05/19 13:40 02/05/19 13:20 02/05/19 13:00 02/05/19 12:40 02/05/19 12:20 02/05/19 12:00 02/05/19 11:36 02/05/19 07:39 95 Laboratory Results Laboratory Results - last 24 hr 02/04/19 02/04/19 02/04/19 15:00 15:00 18:35 WBC RBC Hgb Hct MCV MCH MCHC RDW Std Deviation RDW Coeff of [place] Plt Count MPV Immature Gran % (Auto) Neut % (Auto) Lymph % (Auto) [place] % (Auto) Eos % (Auto) Baso % (Auto) Immature Gran # (Auto) Neut # (Auto) Lymph # (Auto) [place] # (Auto) Eos # (Auto) Baso # (Auto) APTT 26.6 PTT Ratio 1.0 Sodium Potassium Chloride Carbon Dioxide Anion Gap BUN Creatinine Est Cr Clr Drug Dosing Est GFR ( Amer) Est GFR (Non-Af Amer) BUN/Creatinine Ratio Glucose POC Glucose 143 H Estimat Average Glucose Hemoglobin A1c Hgb A1c Pathologist Com Calcium Magnesium 2.5 H Troponin I Triglycerides Cholesterol LDL Cholesterol, Calc VLDL Cholesterol, Calc HDL Cholesterol Cholesterol/HDL Ratio Nasal Screen MRSA (PCR) 02/04/19 02/04/19 02/04/19 20:20 20:41 20:43 WBC RBC Hgb Hct MCV MCH MCHC RDW Std Deviation RDW Coeff of [place] Plt Count MPV Immature Gran % (Auto) Neut % (Auto) Lymph % (Auto) [place] % (Auto) Eos % (Auto) Baso % (Auto) Immature Gran # (Auto) Neut # (Auto) Lymph # (Auto) [place] # (Auto) Eos # (Auto) Baso # (Auto) APTT PTT Ratio Sodium Potassium Chloride Carbon Dioxide Anion Gap BUN Creatinine Est Cr Clr Drug Dosing Est GFR ( Amer) Est GFR (Non-Af Amer) BUN/Creatinine Ratio Glucose POC Glucose 37 L* 35 L* Estimat Average Glucose Hemoglobin A1c Hgb A1c Pathologist Com Calcium Magnesium Troponin I < 0.015 Triglycerides Cholesterol LDL Cholesterol, Calc VLDL Cholesterol, Calc HDL Cholesterol Cholesterol/HDL Ratio Nasal Screen MRSA (PCR) 02/04/19 02/04/19 02/04/19 21:05 21:33 22:03 WBC RBC Hgb Hct MCV MCH MCHC RDW Std Deviation RDW Coeff of [place] Plt Count MPV Immature Gran % (Auto) Neut % (Auto) Lymph % (Auto) [place] % (Auto) Eos % (Auto) Baso % (Auto) Immature Gran # (Auto) Neut # (Auto) Lymph # (Auto) [place] # (Auto) Eos # (Auto) Baso # (Auto) APTT PTT Ratio Sodium Potassium Chloride Carbon Dioxide Anion Gap BUN Creatinine Est Cr Clr Drug Dosing Est GFR ( Amer) Est GFR (Non-Af Amer) BUN/Creatinine Ratio Glucose POC Glucose 40 L* 242 H 176 H Estimat Average Glucose Hemoglobin A1c Hgb A1c Pathologist Com Calcium Magnesium Troponin I Triglycerides Cholesterol LDL Cholesterol, Calc VLDL Cholesterol, Calc HDL Cholesterol Cholesterol/HDL Ratio Nasal Screen MRSA (PCR) 02/05/19 02/05/19 02/05/19 00:06 03:59 04:00 WBC RBC Hgb Hct MCV MCH MCHC RDW Std Deviation RDW Coeff of [place] Plt Count MPV Immature Gran % (Auto) Neut % (Auto) Lymph % (Auto) [place] % (Auto) Eos % (Auto) Baso % (Auto) Immature Gran # (Auto) Neut # (Auto) Lymph # (Auto) [place] # (Auto) Eos # (Auto) Baso # (Auto) APTT PTT Ratio Sodium Potassium Chloride Carbon Dioxide Anion Gap BUN Creatinine Est Cr Clr Drug Dosing Est GFR ( Amer) Est GFR (Non-Af Amer) BUN/Creatinine Ratio Glucose POC Glucose 220 H 273 H Estimat Average Glucose Hemoglobin A1c Hgb A1c Pathologist Com Calcium Magnesium Troponin I Triglycerides Cholesterol LDL Cholesterol, Calc VLDL Cholesterol, Calc HDL Cholesterol Cholesterol/HDL Ratio Nasal Screen MRSA (PCR) Negative 02/05/19 02/05/19 02/05/19 05:23 05:23 05:23 WBC 5.27 RBC 3.77 L Hgb 10.8 L Hct 32.9 L MCV 87.3 MCH 28.6 MCHC 32.8 RDW Std Deviation 44.8 RDW Coeff of [place] 14.2 Plt Count 251 MPV 9.9 Immature Gran % (Auto) 0.2 Neut % (Auto) 42.1 Lymph % (Auto) 42.3 [place] % (Auto) 5.9 Eos % (Auto) 9.1 Baso % (Auto) 0.4 Immature Gran # (Auto) 0.01 Neut # (Auto) 2.22 Lymph # (Auto) 2.23 [place] # (Auto) 0.31 Eos # (Auto) 0.48 Baso # (Auto) 0.02 APTT 26.5 PTT Ratio 1.0 Sodium Potassium Chloride Carbon Dioxide Anion Gap BUN Creatinine Est Cr Clr Drug Dosing Est GFR ( Amer) Est GFR (Non-Af Amer) BUN/Creatinine Ratio Glucose POC Glucose Estimat Average Glucose 209 Hemoglobin A1c 8.9 H Hgb A1c Pathologist Com Calcium Magnesium Troponin I Triglycerides Cholesterol LDL Cholesterol, Calc VLDL Cholesterol, Calc HDL Cholesterol Cholesterol/HDL Ratio Nasal Screen MRSA (PCR) 02/05/19 02/05/19 02/05/19 05:23 07:13 16:36 WBC RBC Hgb Hct MCV MCH MCHC RDW Std Deviation RDW Coeff of [place] Plt Count MPV Immature Gran % (Auto) Neut % (Auto) Lymph % (Auto) [place] % (Auto) Eos % (Auto) Baso % (Auto) Immature Gran # (Auto) Neut # (Auto) Lymph # (Auto) [place] # (Auto) Eos # (Auto) Baso # (Auto) APTT PTT Ratio Sodium 139 Potassium 4.2 Chloride 105 Carbon Dioxide 29 Anion Gap 5.0 BUN 28 H Creatinine 3.41 H Est Cr Clr Drug Dosing 17.9 Est GFR ( Amer) 17.3 Est GFR (Non-Af Amer) 14.9 BUN/Creatinine Ratio 8.2 L Glucose 255 H POC Glucose 222 H 93 Estimat Average Glucose Hemoglobin A1c Hgb A1c Pathologist Com Calcium 8.4 L Magnesium Troponin I < 0.015 Triglycerides 216 H Cholesterol 158 LDL Cholesterol, Calc 64 VLDL Cholesterol, Calc 43 HDL Cholesterol 51 Cholesterol/HDL Ratio 3 Nasal Screen MRSA (PCR) (1) Anemia due to chronic kidney disease Chronic kidney disease stage: on chronic dialysis Qualified Code(s): N18.6 - End stage renal disease; D63.1 - Anemia in chronic kidney disease; Z99.2 - Dependence on renal dialysis
[2019-02-05] MEDS ORDERED: INSULIN GLARGINE SOLOSTAR 100 UNITS/ML 3 ML PEN SQ SCH ×2 (21:00)
[2019-02-06] MEDS: OXYCODONE HCL IR 5 MG TAB (IMMEDIATE RELEASE) PO PRN ×4 (04:16→22:36)
[2019-02-06] MEDS: HEPARIN SOD 5,000 UNIT/0.5 ML VIAL SQ SCH ×3 (05:05→21:00)
[2019-02-06 05:42] LABS: Hematocrit (blood only) 34.2 % (37-47); Hemoglobin 11.5 g/dL (12.0-16.0); Mean Corpuscular Hemoglobin 29.9 pg (25-34); Mean Corpuscular Hgb Conc 33.6 g/dL (32-36); Mean Corpuscular Volume 88.8 fL (80-100); Mean Platelet Volume 9.8 fL (7.4-10.4); Platelet Count 252 K/uL (130-400); RDW Coefficient of Variation 14.5 % (11.5-14.5); RDW Standard Deviation 47.5 fL (36.4-46.3); Red Blood Count 3.85 M/uL (4.2-5.4); White Blood Count 5.26 K/uL (4.8-10.8)
[2019-02-06 06:06] LABS: BUN Creatinine Ratio 5.2 (10-20); Calcium 8.8 mg/dl (8.5-10.1); Creatinine Clr Calc Pharmacy 16.1 ml/min; Est GFR (African American) 15.4; Est GFR (Non-African American) 13.3; Potassium 4.3 mmol/L (3.5-5.1)
[2019-02-06] MEDS: HYDROmorphone INJ 0.5 MG/0.5 ML SYR IV PRN (07:40)
[2019-02-06] MEDS: CALCIUM ACETATE 667 MG CAP PO SCH ×3 (08:09→17:41)
[2019-02-06] MEDS: METOCLOPRAMIDE HCL 5 MG TABLET PO SCH ×2 (08:09→21:00)
[2019-02-06] MEDS: ATORVASTATIN 40 MG TAB PO SCH (08:09)
[2019-02-06] MEDS: TORSEMIDE 100 MG TAB PO SCH (08:09)
[2019-02-06] MEDS: PANTOprazole 40 MG TAB PO SCH (08:09)
[2019-02-06] MEDS: MULTIVITAMIN TAB PO SCH (08:09)
[2019-02-06] MEDS: NEPHROCAPS PO SCH (08:10)
[2019-02-06] MEDS: lamoTRIgine 100 MG TAB PO SCH (08:10)
[2019-02-06] MEDS: ASPIRIN 81 MG ECTAB PO SCH (08:10)
[2019-02-06] MEDS: QUETIAPINE FUMARATE 25 MG TABLET PO SCH ×2 (08:10→21:00)
[2019-02-06] MEDS: buPROPion HCl 100 MG TABLET PO SCH ×2 (08:10→21:00)
[2019-02-06] MEDS: CARVEDILOL 25 MG TAB PO SCH ×2 (08:10→20:59)
[2019-02-06] MEDS: SERTRALINE HCL 50 MG TABLET PO SCH (08:10)
[2019-02-06] MEDS: INSULIN ASPART 100 UNITS/ML 3 ML PEN SC SCH (08:12)
[2019-02-06] MEDS ORDERED: INSULIN GLARGINE SOLOSTAR 100 UNITS/ML 3 ML PEN SQ SCH ×2 (09:00→21:00)
--- NOTE | 2019-02-06 10:33 | Pharmacy Report ---
Pharmacy Glycemic Short Note 2 - Date of Service February 06, 2019 - Glycemic Short BSG Results (Last 24 hours): 02/05/19 02/05/19 02/06/19 16:36 20:16 05:20 Glucose 263 H POC Glucose 93 161 H 02/06/19 07:13 Glucose POC Glucose 210 H HbA1c: Hemoglobin A1c 8.9 % (4.5-5.6) H 02/05/19 05:23 * However, this result is likely somewhat unreliable in ESRD patients d/t interactions between the A1c analyzing technique and high levels of urea in ESRD, reduced RBC life span, iron deficiency anemia, and EPO administration. HbA1c > 7.5% in ESRD patient may overestimate the extent of hyperglycemia in ESRD patients. Outpatient Anti-diabetic Regimen: * Glargine (Basaglar) 25 units in AM + 15 units in PM * Lispro 2 units SQ TIDM Assessment & Plan: ASSESSMENT: * 48yo type 1 diabetic female known to pharmacy from previous admissions/glycemic consults * Pt with severe hyperglycemia on admission and then critical hypoglycemia after receiving IV insulin bolus in ED. * Pt has resumed oral diet, therefore basal insulin dosing will likely need to be increased. * Short acting insulin has been changed from aspart to regular insulin due to h/o of gastroparesis. PLAN FOR INPATIENT GLYCEMIC CONTROL: * Basal insulin - increase * Lantus 12 units SQ BID + additional 8 units given at lunchtime (02/06) * Increase to Lantus 20 units SQ qAM + 12 units SQ PM (starting 02/07) * Bolus insulin - tighten carb coverage * NovoLog per scale ACHS or Q6hrs while NPO * Goal Range: Low 120 mg/dL - High 160 mg/dL * Correction Factor: 25 mg/dL/unit * Nutritional / Prandial insulin per carb ratio of 1 unit per 12 grams CHO consumed PLAN FOR DISCHARGE: * A1c unreliable due to ESRD on HD * Outpatient dosing is heavily weighted towards basal insulin and may be covering some prandial needs. Recommend close monitoring of BSGs at home with adjustment per outpatient provider.
[2019-02-06] MEDS ORDERED: INSULIN GLARGINE SOLOSTAR 100 UNITS/ML 3 ML PEN SQ ONE (12:00)
[2019-02-06] MEDS: INSULIN HUMAN REGULAR SC SCH ×3 (12:19→20:59)
[2019-02-06] MEDS: FLUTICASONE/SALMETEROL 100/50 (ADVAIR) 14 PUFF/1 INHALER INH SCH ×2 (15:42→20:58)
--- NOTE | 2019-02-06 17:57 | Nephrology Progress Note ---
Date of Service February 06, 2019 Assessment & Plan (1) ESRD (end stage renal disease) on dialysis: Patient with ESRD on dialysis Saturday at [facility]. Her last dialysis was on Saturday. She has right upper arm AV fistula. Electrolytes are stable with no signs of volume overload. No need for dialysis today. We will dialyze her tomorrow for 4 hours blood flow 300 dialysate flow 600 and target UF of 1 L. (2) Poorly-controlled hypertension: Blood pressure is controlled today. Patient has history of ischemic stroke in setting of relative hypotension. No need for aggressive blood pressure control. Continue Coreg and torsemide. Hold Coreg in the morning before dialysis (3) Anemia due to chronic kidney disease: Hemoglobin of 11.5 today. We will not give Epogen today. Subjective ESRD patient seen in follow-up during morning rounds. She complains of vomiting intermittently. No dizziness today. No diarrhea. She tolerated dialysis well yesterday Review of Systems Review of Systems: All systems reviewed & are unremarkable except as noted in HPI & below Physical Exam Physical Exam: General exam: Appears comfortable, no acute distress HEENT: Pupils are equal and reactive to light Neck: No JVD, neck is supple trachea is midline Respiratory system: Clear breath sounds bilaterally. Gastrointestinal: Abdomen is soft, non distended, non tender, bowel sounds are present CVS: Regular rate and rhythm. No murmurs, rubs or gallops Musculoskeletal: No joint or muscle tenderness Extremities: Non tender, no edema, peripheral pulses are present Neuro: Oriented, no tremors, no focal neurological deficits Skin: No rashes Access: Right upper arm AV fistula with good bruit Results & Data Vital Signs (Past 12 Hours) Vital Signs Temp Pulse Resp BP Pulse Ox 02/06/19 15:31 37.2 C 68 18 131/60 97 02/06/19 11:25 36.9 C 67 16 126/59 L 95 02/06/19 07:33 36.9 C 69 16 153/67 H 96 Laboratory Results Laboratory Results - last 24 hr 02/05/19 02/06/19 02/06/19 20:16 05:20 05:20 WBC 5.26 RBC 3.85 L Hgb 11.5 L Hct 34.2 L MCV 88.8 MCH 29.9 MCHC 33.6 RDW Std Deviation 47.5 H RDW Coeff of Lebron 14.5 Plt Count 252 MPV 9.8 Sodium 134 L Potassium 4.3 Chloride 100 Carbon Dioxide 29 Anion Gap 5.0 BUN 19 H Creatinine 3.74 H D Est Cr Clr Drug Dosing 16.1 Est GFR ( Amer) 15.4 Est GFR (Non-Af Amer) 13.3 BUN/Creatinine Ratio 5.2 L Glucose 263 H POC Glucose 161 H Calcium 8.8 02/06/19 02/06/19 02/06/19 07:13 11:14 16:45 WBC RBC Hgb Hct MCV MCH MCHC RDW Std Deviation RDW Coeff of Lebron Plt Count MPV Sodium Potassium Chloride Carbon Dioxide Anion Gap BUN Creatinine Est Cr Clr Drug Dosing Est GFR ( Amer) Est GFR (Non-Af Amer) BUN/Creatinine Ratio Glucose POC Glucose 210 H 217 H 176 H Calcium (1) Anemia due to chronic kidney disease Chronic kidney disease stage: on chronic dialysis Qualified Code(s): N18.6 - End stage renal disease; D63.1 - Anemia in chronic kidney disease; Z99.2 - Dependence on renal dialysis
--- NOTE | 2019-02-06 19:28 | Hospitalist Progress Note ---
Date of Service February 06, 2019 Assessment & Plan (1) Acute chest pain: Chest pain Hypertensive urgency H/O CAD EKG no signs of acute ischemia Troponins x2-Negative ? Medication complaints Chest pain is reproducible on exam Recently had submaximal dobutamine stress test which was negative/nondiagnostic Pain likely contributing to elevated blood pressure Appreciate cardiology input Continue aspirin, carvedilol, atorvastatin Blood pressure improved with dialysis Acute mildly displaced fracture of the third metatarsal neck Acute intra-articular displaced fracture--medial base of the second proximal phalanx Mild supraspinatus calcific tendinitis S/P Mechanical Fall Foot X ray:Acute mildly displaced and minimally angulated fracture about the third metatarsal neck. Acute intra-articular minimally displaced fracture about the medial base of the second proximal phalanx. Mild forefoot soft tissue swelling. Shoulder X ray:No acute fracture or dislocation within the left shoulder. Mild supraspinatus calcific tendinitis. A 6 mm intra-articular loose body adjacent to the inferior glenoid. This may be a result of old trauma. Weightbearing as tolerated Continue walking boot PT OT evaluation Needs follow-up with orthopedics in 4 weeks as outpatient with imaging studies Pain control Avoid IV pain medications as able Depression Reported diagnosis of bipolar disorder Questionable medication compliance Continue psychotropic medications Need evaluation prior to discharge for possible inpatient psychiatric admission Appreciate psychiatric input DM Type I Hb A1c of 7.15 December 2018 Continue insulin sliding scale, Lantus Monitor blood glucose levels H/O chronic diastolic heart failure No signs of volume overload Continue torsemide Monitor volume status ESRD on hemodialysis Hemodialysis as per nephrology Uterine fibroid S/P IUD insertion CT ABD:No acute process within the abdomen or pelvis. Exam compromised the lack of IV contrast. No bowel obstruction. Moderate amount of stool within the colon. No evidence for acute diverticulitis. OBGYN follow up as outpatient Functional disability Recurrent ER visits/admissions at local hospitals PT/OT eval DVT Px: Heparin SQ Code Status Full code Disposition: To be determined Case management on board Subjective Patient is seen and examined at bedside Reports intermittent vomiting Still reports right foot, left shoulder pain Feels depressed Plan for dialysis today Denies any Chest pain, SOB, dizziness Review of Systems Review of Systems: All systems reviewed & are unremarkable except as noted in HPI & below Physical Exam Physical Exam: Physical Exam: Vitals signs as noted above General Appearance:Moderately built and nourished, no apparent distress Head: normocephalic, Atraumatic Eyes: normal inspection, EOMI Neck: supple, Trachea midline Respiratory/Chest: Normal breath sounds, CTA Cardiovascular: S1, S2, No murmur, +left shoulder mild tenderness Abdomen/GI:Soft, Non tender, Bowel sounds present Extremities/Musculoskelatal:normal inspection, no edema, Right foot in boot, left shoulder mild tenderness Neurologic/Psych:AAOX3, grossly no focal neurological deficits, +depression Skin: normal color, warm Results & Data Vital Signs (Past 12 Hours) Vital Signs Temp Pulse Resp BP Pulse Ox 02/06/19 15:31 37.2 C 68 18 131/60 97 02/06/19 11:25 36.9 C 67 16 126/59 L 95 02/06/19 07:33 36.9 C 69 16 153/67 H 96 Laboratory Results Short CBC 02/06/19 Range/Units 05:20 WBC 5.26 (4.8-10.8) K/uL Hgb 11.5 L (12.0-16.0) g/dL Hct 34.2 L (37-47) % Plt Count 252 (130-400) K/uL BMP 02/06/19 05:20 Sodium 134 L Potassium 4.3 Chloride 100 Carbon Dioxide 29 BUN 19 H Creatinine 3.74 H D Glucose 263 H Calcium 8.8
[2019-02-07] MEDS: OXYCODONE HCL IR 5 MG TAB (IMMEDIATE RELEASE) PO PRN ×2 (02:30→08:25)
[2019-02-07] MEDS: HEPARIN SOD 5,000 UNIT/0.5 ML VIAL SQ SCH ×2 (05:32→13:10)
[2019-02-07 06:55] LABS: BUN Creatinine Ratio 7.3 (10-20); Calcium 8.9 mg/dl (8.5-10.1); Creatinine Clr Calc Pharmacy 12.6 ml/min; Est GFR (African American) 11.7; Est GFR (Non-African American) 10.1; Potassium 4.5 mmol/L (3.5-5.1)
[2019-02-07] MEDS ORDERED: HEPARIN SOD (PORCINE) 1000 UNIT/ML 10 ML VIAL IV SCH (07:00)
[2019-02-07] MEDS ORDERED: SODIUM CHLORIDE 0.9% 1000ML 1,000 ML IV PRN (07:00)
[2019-02-07] MEDS: FLUTICASONE/SALMETEROL 100/50 (ADVAIR) 14 PUFF/1 INHALER INH SCH (08:12)
[2019-02-07] MEDS: ASPIRIN 81 MG ECTAB PO SCH (08:13)
[2019-02-07] MEDS: ATORVASTATIN 40 MG TAB PO SCH (08:13)
[2019-02-07] MEDS: lamoTRIgine 100 MG TAB PO SCH (08:13)
[2019-02-07] MEDS: MULTIVITAMIN TAB PO SCH (08:13)
[2019-02-07] MEDS: CALCIUM ACETATE 667 MG CAP PO SCH ×2 (08:14→13:11)
[2019-02-07] MEDS: PANTOprazole 40 MG TAB PO SCH (08:14)
[2019-02-07] MEDS: buPROPion HCl 100 MG TABLET PO SCH (08:14)
[2019-02-07] MEDS: SERTRALINE HCL 50 MG TABLET PO SCH (08:14)
[2019-02-07] MEDS: QUETIAPINE FUMARATE 25 MG TABLET PO SCH (08:14)
[2019-02-07] MEDS: METOCLOPRAMIDE HCL 5 MG TABLET PO SCH (08:14)
[2019-02-07] MEDS: NEPHROCAPS PO SCH (08:15)
[2019-02-07] MEDS: INSULIN HUMAN REGULAR SC SCH ×2 (08:20→13:10)
[2019-02-07] MEDS ORDERED: INSULIN GLARGINE SOLOSTAR 100 UNITS/ML 3 ML PEN SQ SCH ×2 (09:00)
[2019-02-07] MEDS: TORSEMIDE 100 MG TAB PO SCH (13:11)
[2019-02-07] MEDS: CARVEDILOL 25 MG TAB PO SCH (13:11)
[2019-02-07] MEDS: HEPARIN SOD (PORCINE) 1000 UNIT/ML 10 ML VIAL IV SCH ×2 (13:15→13:16)
--- NOTE | 2019-02-07 14:15 | Hospitalist Progress Note ---
Date of Service February 07, 2019 Assessment & Plan (1) Acute chest pain: Chest pain--Resolved Hypertensive urgency H/O CAD EKG no signs of acute ischemia Troponins x2-Negative ? Medication complaints Chest pain is reproducible on exam Recently had submaximal dobutamine stress test which was negative/nondiagnostic Pain likely contributing to elevated blood pressure Appreciate cardiology input Continue aspirin, carvedilol, atorvastatin Blood pressure improved with dialysis Acute mildly displaced fracture of the third metatarsal neck Acute intra-articular displaced fracture--medial base of the second proximal phalanx Mild supraspinatus calcific tendinitis S/P Mechanical Fall Foot X ray:Acute mildly displaced and minimally angulated fracture about the third metatarsal neck. Acute intra-articular minimally displaced fracture about the medial base of the second proximal phalanx. Mild forefoot soft tissue swelling. Shoulder X ray:No acute fracture or dislocation within the left shoulder. Mild supraspinatus calcific tendinitis. A 6 mm intra-articular loose body adjacent to the inferior glenoid. This may be a result of old trauma. Weightbearing as tolerated Continue using walking boot for ambulation PT OT evaluation Needs follow-up with orthopedics in 4 weeks as outpatient with imaging studies Pain control Avoid IV pain medications as able Depression Reported diagnosis of bipolar disorder Questionable medication compliance Continue home psychotropic medications Need evaluation prior to discharge for possible inpatient psychiatric admission Appreciate psychiatric input--Doesn't meet criteria for Inpatient; No change in home medications Outpatient follow up appointment on Feb 16, 2019 at 8:30AM at [facility] DM Type I Hb A1c of 7.15 December 2018 Continue insulin sliding scale, Lantus Monitor blood glucose levels H/O chronic diastolic heart failure No signs of volume overload Continue torsemide Monitor volume status ESRD on hemodialysis Hemodialysis as per nephrology On /Sat/Sat schedule Uterine fibroid S/P IUD insertion CT ABD:No acute process within the abdomen or pelvis. Exam compromised the lack of IV contrast. No bowel obstruction. Moderate amount of stool within the colon. No evidence for acute diverticulitis. OBGYN follow up as outpatient Functional disability Recurrent ER visits/admissions at local hospitals PT/OT eval: DVT Px: Heparin SQ Code Status Full code Disposition: Home with Home Health Case management on board Subjective Patient is seen and examined at bedside Had her hemodialysis this morning Has nausea during the dailysis Right foot, left shoulder pain is controlled Denies any Chest pain, SOB, dizziness Discussed with Mental Health Liaison Today Review of Systems Review of Systems: All systems reviewed & are unremarkable except as noted in HPI & below Physical Exam Physical Exam: Physical Exam: Vitals signs as noted above General Appearance:Moderately built and nourished, no apparent distress Head: normocephalic, Atraumatic Eyes: normal inspection, EOMI Neck: supple, Trachea midline Respiratory/Chest: Normal breath sounds, CTA Cardiovascular: S1, S2, No murmur, +left shoulder mild tenderness Abdomen/GI:Soft, Non tender, Bowel sounds present Extremities/Musculoskelatal:normal inspection, no edema, Right foot in boot, left shoulder mild tenderness Neurologic/Psych:AAOX3, grossly no focal neurological deficits, +depression Skin: normal color, warm Results & Data Vital Signs (Past 12 Hours) Vital Signs Temp Pulse Pulse Pulse Resp BP BP 02/07/19 12:30 36.9 C 66 153/66 H 02/07/19 12:20 66 135/60 02/07/19 12:00 64 137/67 02/07/19 11:40 66 146/71 H 02/07/19 11:20 67 142/76 H 02/07/19 11:00 65 153/66 H 02/07/19 10:40 66 134/71 02/07/19 10:20 65 134/88 02/07/19 10:00 63 114/60 02/07/19 09:40 64 117/55 L 02/07/19 09:20 65 115/56 L 02/07/19 09:00 67 118/49 L 02/07/19 08:50 36.9 C 70 02/07/19 07:25 36.9 C 70 14 153/69 H 02/07/19 07:05 36.4 C 66 18 127/70 Pulse Ox 02/07/19 12:30 02/07/19 12:20 02/07/19 12:00 02/07/19 11:40 02/07/19 11:20 02/07/19 11:00 02/07/19 10:40 02/07/19 10:20 02/07/19 10:00 02/07/19 09:40 02/07/19 09:20 02/07/19 09:00 02/07/19 08:50 02/07/19 07:25 96 02/07/19 07:05 89 L Laboratory Results [facility] 02/07/19 05:39 Sodium 134 L Potassium 4.5 Chloride 99 Carbon Dioxide 28 BUN 33 H D Creatinine 4.71 H* D Glucose 210 H Calcium 8.9
--- NOTE | 2019-02-07 14:52 | Discharge Summary ---
Date of Service February 07, 2019 Admission HPI Per Admitting Provider Laura Luu is a 48-year-old [place] female admitted medically on 02/04/2019 due to reports of chest pain and shortness of breath reported in the emergency department. Patient was raised recently hospitalized at [facility] from 02/02/19 - 02/03/19 after sustaining a fall at home. Pt has PMH of CAD, HTN, prior CVA, COPD, T1DM, ESRD, chronic anemia, and a history of seizures per records. Pt has recently suffered a fall and has a right 3rd metatarsal fracture. She also has a reported mood disorder, which patient states is diagnosed as bipolar disorder. Psychiatric consultation is requested to evaluate patient for worsening depression. Patient's case was reviewed with psychiatric nurse liaison and rounding psychiatrist prior to evaluation. Patient is cooperative with assessment; however, she does not appear to be the most reliable historian. When asked why patient is currently in the hospital, she references a fall she sustained 2 weeks prior. Patient states she had intentionally fallen down the stairs, giving the reasoning of "because I wanted to." Patient does not clearly state that the intent of the fall was to end her life; however, she does admit that she intentionally performed the act hoping it would hurt her, and being okay if she because of it. Patient states that her reasoning for this was to "get some things out. I have all these things inside me. The diabetes, the high blood pressure... It is just overwhelming. I do not have the power to get well." Patient states that she had had thoughts about 2 years ago to throw herself down the stairs; however, at that point in time she was able to think of her partner and her daughter and resist the urge to do so. Patient is unsure what caused her to follow through on the thoughts this time. Patient does admit to ongoing hopelessness, and desire to not be alive. When asked if the patient had other thoughts for how she could hurt herself, she draws a line across her wrist with her pointer finger, as it to indicate cutting. Patient does admit that she has been rather depressed, stating this is a result of not being on her psychotropic medications. Per patient's report, the office where she was seen for psychiatric treatment had closed and she has not been taking medications. Patient is not aware of who her psychiatrist was, and also admits that she was seeing a therapist there but also does not know her her name. This provider attempted to determine if the patient has truly not been taking her psychotropic medications, or if they are just prescribed by another provider. Patient gives conflicting reports, as she states that she was only on 2 psychiatric medications, but then seems to imply that she has continued to take 2 of her psychiatric medications. When this provider offered a list of medications, attempting to determine patient's knowledge of her current regimen, the patient's reports were not consistent with her home medication list. Pt reports her mood has been "sometimes happy, sometimes sad", admitting that each day is different for her. Pt states that over the last month, she has had more sad days than happy days. Pt reports that when her mood is low, she not ices decreased appetite, poor self-care, decreased motivation, increased desire to isolate and remain in bed - but trouble falling and staying asleep. She states that she does not often notice a difference in her energy level. Pt states that she was diagnosed with bipolar disorder about 5 years ago. When asked what her "manic" behavior generally it is, the patient states "I clean everything in the house." During conversation with the psychiatric nurse liaison, patient denies any other symptoms consistent with jeb, she does not admit to changes in her sleeping patterns, more rapid speech, increased energy, or flight of ideas. Patient does admit that when she is stressed or overwhelmed, she tends to clean as a coping strategy. Unfortunately, patient had to be taken for an X-ray at this time, but a decent amount of history was about to be provided by the patient before this time. Pt was agreeable to allowing us to gather collateral information from her partner to discuss his perception of her mood and behavior, and evaluate any concerns at home. It is likely that patient's status regarding self-harm will need to be re-evaluated prior to discharge and after collateral information is available. Admission Exam Per Admitting Provider GENERAL: uncomfortable, anxious, no respiratory distress SKIN: Sallow , warm HEENT: Pale palpebral conjunctivae, no ptosis, dry buccal mucosa NECK : Supple, short neck, no tenderness CHEST : CTA, no tenderness HEART : RRR, no obvious murmurs ABDOMEN: Some distention, chronic hypogastric tenderness EXTREMITIES : Orthotic contraption noted on RLE, minimal LE swelling, no LE tenderness, no other conspicuous deformities noted NEUROLOGIC : Coherent, no facial asymmetry, no other gross focality Principal Diagnosis Discharge Information Discharge Diagnosis Hypertensive urgency Atypical chest pain Right foot fracture Mechanical fall Depression ESRD on dialysis Discharge Goals Decrease discomfort,Improve function,Improve disease control Discharge Activity Limitations Per instructions/follow-up Discharge Data Allergies Allergy/AdvReac Type Severity Reaction Status Date / Time Fish Containing Products Allergy Mild Hives Verified 02/04/19 15:09 latex Allergy Mild hives Verified 02/04/19 15:09 Consultations 02/04/19 19:09 ED Decision to Admit Stat 02/04/19 22:36 Consult Cardiology Routine Consult Case Management - Discharge Planning Routine Consult Nephrology Routine Consult Psychiatry Routine 02/05/19 00:52 Consult Orthopedic Surgery Routine Procedures Performed Right foot x-ray 1. Acute mildly displaced and minimally angulated fracture about the third metatarsal neck. 2. Acute intra-articular minimally displaced fracture about the medial base of the second proximal phalanx. 3. Mild forefoot soft tissue swelling. CXR: Cardiomegaly without acute process. CT ABD: 1. No acute process within the abdomen or pelvis. 2. Exam compromised the lack of IV contrast. 3. No bowel obstruction. Moderate amount of stool within the colon. No evidence for acute diverticulitis. Left Shoulder X ray: 1. No acute fracture or dislocation within the left shoulder. 2. Mild supraspinatus calcific tendinitis. 3. A 6 mm intra-articular loose body adjacent to the inferior glenoid. This may be a result of old trauma. Ordered Studies 02/04/19 14:24 CT abd pelvis wo con Stat Hospital Course (1) Acute chest pain: Chest pain--Resolved Hypertensive urgency H/O CAD EKG no signs of acute ischemia Troponins x2-Negative ? Medication complaints Chest pain is reproducible on exam Recently had submaximal dobutamine stress test which was negative/nondiagnostic Pain likely contributing to elevated blood pressure Appreciate cardiology input Continue aspirin, carvedilol, atorvastatin Blood pressure improved with dialysis Acute mildly displaced fracture of the third metatarsal neck Acute intra-articular displaced fracture--medial base of the second proximal phalanx Mild supraspinatus calcific tendinitis S/P Mechanical Fall Foot X ray:Acute mildly displaced and minimally angulated fracture about the third metatarsal neck. Acute intra-articular minimally displaced fracture about the medial base of the second proximal phalanx. Mild forefoot soft tissue swelling. Shoulder X ray:No acute fracture or dislocation within the left shoulder. Mild supraspinatus calcific tendinitis. A 6 mm intra-articular loose body adjacent to the inferior glenoid. This may be a result of old trauma. Weightbearing as tolerated Continue using walking boot for ambulation PT OT evaluation Needs follow-up with orthopedics in 4 weeks as outpatient with imaging studies Pain control Avoid IV pain medications as able Depression Reported diagnosis of bipolar disorder Questionable medication compliance Continue home psychotropic medications Need evaluation prior to discharge for possible inpatient psychiatric admission Appreciate psychiatric input--Doesn't meet criteria for Inpatient; No change in home medications Outpatient follow up appointment on Feb 16, 2019 at 8:30AM at [facility] Type I Hb A1c of 7.15 December 2018 Continue insulin sliding scale, Lantus Monitor blood glucose levels H/O chronic diastolic heart failure No signs of volume overload Continue torsemide Monitor volume status ESRD on hemodialysis Hemodialysis as per nephrology On T/Ivory/Sat schedule Uterine fibroid S/P IUD insertion CT ABD:No acute process within the abdomen or pelvis. Exam compromised the lack of IV contrast. No bowel obstruction. Moderate amount of stool within the colon. No evidence for acute diverticulitis. OBGYN follow up as outpatient Functional disability Recurrent ER visits/admissions at local hospitals PT/OT eval: DVT Px: Heparin SQ Code Status Full code Disposition: Home with Home Health Case management on board Total Time Total Time Spent Total Time Spent (In Minutes): 38 minutes Total Time Includes: Examination of the Patient, Discharge Planning, Medication Reconciliation, Communication With Other Providers and Other Discharge Plan Discharge Items Patient Disposition: Home - Home Health Services Reason For Visit: CHEST PAIN Discharge Diagnosis: Hypertensive urgency Atypical chest pain Right foot fracture Mechanical fall Depression ESRD on dialysis Discharge Goals: Decrease discomfort, Improve disease control and Improve function Activity: Per 'Additional Instructions' section Exercise/Sports: Gradually increase as tolerated Non-emergency contact: Primary Care Provider, Surgeon and Psychiatrist Call non-emergency contact if: you have any medication questions, your symptoms worsen, your pain is not controlled, your pain is worsening, your pain is unusual for you, your pain is concerning for you and you have a fever Follow-up/Referrals: [facility] [Outside] - 02/16/19 8:30 am ([facility] [id number] [address] [id number] Feb 16, 2019 [id number] ) Trey Morrow MD [Surgeon] - (Follow up in 4-5 weeks for repeat x-rays of the right foot to evaluate fractures.) Mitchel Santo MD [Primary Care Provider] - Diet: Carb Count or DM1, Dialysis Renal and Heart Healthy Addtl Provider Instructions: Follow-up with your primary care physician on Feb 13, 2019 at 11: 20 AM Follow-up with your psychiatrist on February 16, 2019 at 8:30 AM at [facility] as Scheduled Follow up with Orthopedic Surgeon Dr. Morrow in 4 weeks with X ray of your Right Foot Follow-up with your manager mission for dialysis Follow up with your OBGYN for further evaluation and management of uterine fibroid Seek immediate medical attention if your symptoms reoccur or worsen Prescriptions: New bupropion HCl 100 mg Tablet 100 mg PO BID Qty: 0 RF: 0 oxycodone 5 mg Tablet 5 mg PO BID PRN (Reason: pain) Qty: 10 RF: 0 Continued multivitamin Tablet 1 tab PO DAILY RF: 0 atorvastatin [Lipitor] 80 mg tablet 80 mg PO DAILY RF: 0 carvedilol 25 mg Tablet 25 mg PO BID RF: 0 polyethylene glycol 3350 [Miralax] 17 gram Powder In Packet 17 g PO BID PRN (Reason: Constipation) RF: 0 aspirin [Aspir-81] 81 mg Tablet,Delayed Release (Dr/Ec) 81 mg PO DAILY RF: 0 metoclopramide HCl [Reglan] 5 mg tablet 5 mg PO BID RF: 0 torsemide 100 mg tablet 100 mg PO DAILY RF: 0 pantoprazole 40 mg Tablet,Delayed Release (Dr/Ec) 40 mg PO DAILY RF: 0 glucose 4 gram Tablet,Chewable 10 g PO UD RF: 0 ergocalciferol (vitamin D2) [Vitamin D2] 50,000 unit capsule 50,000 unit PO MONTHLY RF: 0 Leo Caps 1 mg Capsule 1 cap PO DAILY RF: 0 albuterol sulfate [Proventil HFA] 90 mcg/actuation HFA aerosol inhaler 2 puff inhalation Q4 PRN (Reason: Wheezing) RF: 0 ondansetron 4 mg Tablet,Disintegrating 4 mg PO Q8H PRN (Reason: Nausea) RF: 0 sertraline [Zoloft] 50 mg tablet 50 mg PO DAILY RF: 0 lamotrigine [Lamictal] 100 mg tablet 100 mg PO DAILY RF: 0 bisacodyl 5 mg Tablet 5 mg PO DAILY PRN (Reason: Constipation) RF: 0 insulin lispro [Admelog SoloStar U-100 Insulin] 100 unit/mL insulin pen 2 unit subcut TIDM RF: 0 calcium acetate 667 mg capsule 667 mg PO TIDM RF: 0 Basaglar KwikPen U-100 Insulin 100 unit/mL (3 mL) insulin pen 15 unit subcut QPM RF: 0 Basaglar KwikPen U-100 Insulin 100 unit/mL (3 mL) insulin pen 25 unit subcut QAM RF: 0 Breo Ellipta 200-25 mcg/dose Blister With Device 1 inh INHALATION DAILY RF: 0 quetiapine 50 mg tablet 50 mg PO HS RF: 0 Stand-Alone Forms: [facility] Discharge Orders: Discharge Order (Routine); Ordered 02/07/19 Ordered By: Dawson Mohamud Admission Data Admit Date/Time: 02/04/19 20:13 Attending Provider: Dawson Mohamud Admit Provider: Pardeep Archer Primary Care Provider: Mitchel Santo Other Providers: Pardeep Archer ; Rui Newsome ; Neil Monroe ; Elena Hale ; Gavin Ovalle Service: Medical Other Interventions: Discharge Summary Assessment (RN) Last Done: 02/07/19 15:08 Pending Studies at Discharge: No DC Date/Time DO NOT enter until pt leaves facility: 02/07/19 15:32
--- NOTE | 2019-02-07 19:15 | Dialysis Progress Note ---
Date of Service February 07, 2019 Assessment & Plan (1) ESRD (end stage renal disease) on dialysis: Patient with ESRD on dialysis Saturday at [facility]. Her last dialysis was on ; seen on HD today and tolerating. She has right upper arm AV fistula. Electrolytes are stable with no signs of volume overload. tolerating lower uf goals (2) Poorly-controlled hypertension: Blood pressure remains controlled today. Patient has history of ischemic stroke in setting of relative hypotension. No need for aggressive blood pressure control. Continue Coreg and torsemide. Hold Coreg in the morning before dialysis (3) Anemia due to chronic kidney disease: Hemoglobin of 11.5 on 02/06. We will not give Epogen today. Subjective seen on HD this am at 0950; c/o ongoing N but ate full breakfast; denies abd pain, chest discomfort, palpitations Review of Systems Review of Systems: All systems reviewed & are unremarkable except as noted in HPI & below Physical Exam Constitutional: well developed and well nourished on RA nad Eyes: EOM intact bilaterally ENMT: Ears: no external ear abnormality Nose: no external nose abnormality Mouth: + dry oral mucous membranes Neck: no nuchal rigidity Respiratory: normal respiratory effort Auscultation: lungs clear to auscultation bilaterally (on anterior exam) and + diminished lung sounds Cardiovascular: Rate/Rhythm: regular rate and regular rhythm Extremities: + AV fistula; no edema Gastrointestinal (Abdomen): Inspection/Auscultation: normal bowel sounds Percussion/Palpation: abdomen soft; abdomen nontender Musculoskeletal: Extremities: strength 5/5 throughout R ankle in cast/boot Skin: no rashes, warm and dry Neurologic: teran, fluent speech, no tremor; slight psychomotor delay as at previous exams Psychiatric: Orientation: alert and oriented x 3 Eye Contact: + fair eye contact Results & Data Vital Signs (Past 12 Hours) Vital Signs Temp Pulse Pulse Pulse Pulse Resp BP 02/07/19 15:08 36.7 C 69 71 70 20 02/07/19 14:59 36.7 C 71 20 02/07/19 12:30 36.9 C 66 02/07/19 12:20 66 135/60 02/07/19 12:00 64 137/67 02/07/19 11:40 66 146/71 H 02/07/19 11:20 67 142/76 H 02/07/19 11:00 65 153/66 H 02/07/19 10:40 66 134/71 02/07/19 10:20 65 134/88 02/07/19 10:00 63 114/60 02/07/19 09:40 64 117/55 L 02/07/19 09:20 65 115/56 L 02/07/19 09:00 67 118/49 L 02/07/19 08:50 36.9 C 70 02/07/19 07:25 36.9 C 70 14 BP Pulse Ox 02/07/19 15:08 136/59 L 96 02/07/19 14:59 136/59 L 96 02/07/19 12:30 153/66 H 02/07/19 12:20 02/07/19 12:00 02/07/19 11:40 02/07/19 11:20 02/07/19 11:00 02/07/19 10:40 02/07/19 10:20 02/07/19 10:00 02/07/19 09:40 02/07/19 09:20 02/07/19 09:00 02/07/19 08:50 02/07/19 07:25 153/69 H 96 Laboratory Results Abnormal lab results 02/07/19 02/07/19 02/07/19 Range/Units 05:39 07:35 12:43 Sodium 134 L (136-145) mmol/L BUN 33 H D (7-18) mg/dl Creatinine 4.71 H* D (0.6-1.2) mg/dl BUN/Creatinine Ratio 7.3 L (10-20) Glucose 210 H (70-99) mg/dl POC Glucose 226 H 115 H (70-99) (1) Anemia due to chronic kidney disease Chronic kidney disease stage: on chronic dialysis Qualified Code(s): N18.6 - End stage renal disease; D63.1 - Anemia in chronic kidney disease; Z99.2 - Dependence on renal dialysis
[2019-03-04] MEDS ORDERED: ERGOCALCIFEROL 50,000 UNITS CAP PO SCH (09:00)
== END 2019-02-07 15:32 | disposition home health service (06) ==
LOC: ED 12:57 → 2S 12:57 → 4W 02-06 16:23

== ENCOUNTER 2019-06-20 09:34 | Inpatient (IN) ==
[2019-06-20] MEDS ORDERED: ONDANSETRON INJ 2 MG/ML 2 ML VIAL IV STA (09:54)
[2019-06-20] MEDS ORDERED: SODIUM CHLORIDE 0.9% 1000ML 250 ML IV ONE (09:56)
--- NOTE | 2019-06-20 10:07 | Emergency Department Note ---
Entered by Sly Gonsalves acting as a scribe for History of Present Illness General Chief complaint: Vomiting Stated complaint: vomiting Time Seen by Provider: 06/20/19 09:43 Source: patient Limitations: no limitations History of Present Illness Onset (ago): day(s) 3 Location: abdomen Pain Consistency: + intermittent Maximum Pain Intensity: 8 Quality: + constant (abdominal pain) Exacerbated By: + eating Associated symptoms: + denies other symptoms (burning with urination, diarrhea), + fever/chills (chills. No fever) and + other (back pain, abdominal pain, blood in urine) The patient is a 48 year old female who presents to the Emergency Room with complaints of intermittent vomiting starting 3 days. The patient's states the patient had an endoscopy before the new years and states they have not received the results yet. He states the patient cannot properly produce a bowel movement and that has been going on for months. The patient states she has pain in her abdomen. She states she has chills. She notes she has never had this kind of abdominal pain before. She states eating makes her abdominal pain worse. She states she has back pain. She notes she had blood in her urine in her last test. The patient denies having fevers, burning with urination, and diarrhea. The patient states she is a dialysis patient and has been getting it for 2 years. She notes her shagger is Dr. Monroe. Home Medications Home Medications Medication Instructions Recorded Confirmed Type Basaglar KwikPen U-100 Insulin 10 unit SUBCUT QAM 12/19/18 06/20/19 History Basaglar KwikPen U-100 Insulin 12 unit SUBCUT QPM 12/19/18 06/20/19 History Breo Ellipta 1 inh INHALATION QAM 12/19/18 06/20/19 History [place] Caps 1 cap PO QAM 12/19/18 06/20/19 History albuterol sulfate [Proventil HFA] 2 puff INHALATION Q4 PRN 12/19/18 06/20/19 History aspirin [Aspir-81] 81 mg PO QAM 12/19/18 06/20/19 History atorvastatin [Lipitor] 80 mg PO QAM 12/19/18 06/20/19 History bisacodyl 5 mg PO DAILY PRN 12/19/18 06/20/19 History calcium acetate 667 mg PO TIDM 12/19/18 06/20/19 History carvedilol 25 mg PO BID 12/19/18 06/20/19 History ergocalciferol (vitamin D2) 50,000 unit PO MONTHLY 12/19/18 06/20/19 History [Vitamin D2] glucose 10 g PO UD 12/19/18 06/20/19 History insulin lispro [Admelog SoloStar 2 unit SUBCUT TIDM 12/19/18 06/20/19 History U-100 Insulin] lamotrigine [Lamictal] 100 mg PO QPM 12/19/18 06/20/19 History metoclopramide HCl [Reglan] 5 mg PO BID 12/19/18 06/20/19 History multivitamin 1 tab PO QAM 12/19/18 06/20/19 History ondansetron 4 mg PO Q8H PRN 12/19/18 06/20/19 History pantoprazole 40 mg PO QAM 12/19/18 06/20/19 History polyethylene glycol 3350 [Miralax] 17 g PO BID PRN 12/19/18 06/20/19 History sertraline [Zoloft] 50 mg PO QAM 12/19/18 06/20/19 History torsemide 100 mg PO QPM 12/19/18 06/20/19 History quetiapine 50 mg PO HS 02/05/19 06/20/19 History bupropion HCl 100 mg PO BID #0 tab 02/07/19 06/20/19 Rx aripiprazole 5 mg PO HS 05/20/19 06/20/19 History bisacodyl 10 mg AL DAILY PRN #2 ea 05/20/19 06/20/19 Rx metoclopramide HCl [Reglan] 10 mg PO Q6H #10 tab 05/20/19 06/20/19 Rx trazodone 75 mg PO HS 05/20/19 06/20/19 History linezolid 600 mg PO BID 06/03/19 06/20/19 History Allergies Allergy/AdvReac Type Severity Reaction Status Date / Time Fish Containing Products Allergy Mild Hives Verified 06/20/19 11:19 latex Allergy Mild hives Verified 06/20/19 11:19 Past Med/Surg History Medical History Anemia due to chronic kidney disease (Chronic) Arteriovenous fistula for hemodialysis in place, primary (Chronic) Bipolar disorder (Chronic) CKD (chronic kidney disease) (Acute) Coronary artery disease (Chronic) "2016 - cardiac catheterization showing nonobstructive coronary disease Stress test 06/2017 - possible small area of ischemia in the anterior wall" CVA (cerebral vascular accident) (Chronic) 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 history of CVA in 2018 Residual R sided weakness Depression (Chronic) Diabetic gastroparesis (Chronic) Diastolic heart failure (Chronic) DM type 1 (diabetes mellitus, type 1) (Chronic) ESRD (end stage renal disease) on dialysis GERD (gastroesophageal reflux disease) (Chronic) History of GI bleed (Chronic) Hyperglycemia (Acute) Hyperlipidemia (Chronic) Hypertension (Chronic) Seizure (Chronic) Surgical History Hx of appendectomy (Chronic) Hx of cholecystectomy (Chronic) Hx of tubal ligation (Chronic) Family History Mother Coronary heart disease Hypertension Father Coronary heart disease Other No significant family history Social History Preferred Language: Faroese Communication Ability: Effective Trackman Required: No Beliefs That Will Affect Care: None marital status: Current Living Situation: Spouse current occupational status: unemployed Other Information That Helps Us Care for You: No Feels Safe at Home: Yes Safety Concerns: Feels Safe At This Time Smoking Status: Former smoker Hx Alcohol Use: No Hx Substance Use: No Review of Systems See HPI for pertinent positives & negatives. and A total of 10 systems reviewed and were otherwise negative Physical Exam Vital Signs Vital Signs - 24 hr 06/20/19 09:36 06/20/19 10:33 06/20/19 12:00 Temperature 37.0 C Temperature Source Oral Pulse Rate 80 78 Pulse Rate [Right Finger] 77 Respiratory Rate 20 20 Respiratory Depth Normal Blood Pressure 181/72 H Blood Pressure [Left Arm] 176/48 H Blood Pressure Mean 108 Blood Pressure Mean [Left Arm] 90 Pulse Oximetry 99 98 98 Oxygen Delivery Method Room Air Room Air Room Air Sepsis Recent Fever Within 48 Hours No Sepsis New/Unexplained Change in Mental Status No Sepsis Action Taken by Nursing No Action Required 06/20/19 13:00 Temperature Temperature Source Pulse Rate Pulse Rate [Right Finger] 79 Respiratory Rate 24 Respiratory Depth Blood Pressure Blood Pressure [Left Arm] 153/69 H Blood Pressure Mean Blood Pressure Mean [Left Arm] 97 Pulse Oximetry 97 Oxygen Delivery Method Room Air Sepsis Recent Fever Within 48 Hours Sepsis New/Unexplained Change in Mental Status Sepsis Action Taken by Nursing General: Non-ill appearing middle-aged female in no acute distress. She is holding an emesis bag. HEENT: Normal cephalic atraumatic. Pupils are equal round and reactive to light. Extraocular movements are intact. Oropharynx is pink with moist mucous membranes. No swelling of the mouth lips or tongue. Neck: Supple with a midline trachea. No meningeal signs or stiffness, no JVD or bruits. No Stridor. Chest: Clear to auscultation bilaterally. No wheezes or rhonchi. No increased work of breathing. Heart: regular rate and rhythm. Abdomen: Soft, nondistended without rebound guarding or rigidity. Diffusely mildly tender but no masses. Extremities: No cyanosis clubbing or edema. No calf tenderness or asymmetry. Fistula in right arm. Spine/Back. Non tender to palpation. No CVA tenderness Skin: Good turgor without rashes. Neurologic exam: Cranial nerves two through 12 are intact. Motor and sensation are intact and symmetrical throughout. Course Course 0947: The patient was evaluated in room B3B, and a complete history and physical examination were performed. 1016: The patient is curently giving a urine sample. 1126: I am still waiting on the IV team. I ordered a CT as the patient states her abdominal pain is differerent from before. 1341: I discussed the patient's case with Dr. Sepulveda - [facility] Hospitalist. He will evaluate the patient for further management. Administered Medications Discontinued Medications Sodium Chloride (Nss 1000ml) 250 mls @ 999 mls/hr IV .Q16M ONE Stop: 06/20/19 10:11 Last Infusion: 06/20/19 13:00 Dose: 0 mls/hr Documented by: [id number] Admin: 06/20/19 11:58 Dose: 999 mls/hr Documented by: [id number] Insulin Human Regular (Novolin R U-100 Per Unit) 6 units IV NOW STA Stop: 06/20/19 12:18 Last Admin: 06/20/19 12:24 Dose: 6 units Documented by: [id number] Cosigned by: [id number] Insulin Human Regular (Novolin R U-100 Per Unit) 6 units IV NOW STA Stop: 06/20/19 13:24 Last Admin: 06/20/19 13:29 Dose: 6 units Documented by: [id number] Cosigned by: [id number] Ketorolac Tromethamine (Toradol) 15 mg IV NOW ONE Stop: 06/20/19 12:15 Last Admin: 06/20/19 12:25 Dose: 15 mg Documented by: [id number] Ondansetron HCl (Zofran) 4 mg IV NOW STA Stop: 06/20/19 09:55 Last Admin: 06/20/19 11:58 Dose: 4 mg Documented by: [id number] Ondansetron HCl (Zofran) Confirm Administered Dose 4 mg .ROUTE .STK-MED ONE Stop: 06/20/19 11:57 Last Admin: 06/20/19 11:58 Dose: Not Given Documented by: [id number] Medical Decision Making Differential Diagnosis Differential Diagnosis includes but is not limited to diabetic emergency, dehydration, bowel obstruction, infection, and electrolyte or metabolic abnormality. Medical Records Attestation: I reviewed the patient's medical records. Home Medications Current Medication List: was personally reviewed by me Laboratory Data Attestation: I reviewed the patient's lab results. Result diagrams: 06/20/19 11:36 06/20/19 11:36 Lab Results 06/20/19 06/20/19 06/20/19 Range/Units 10:27 10:29 10:30 WBC (4.8-10.8) K/uL RBC (4.2-5.4) M/uL Hgb (12.0-16.0) g/dL Hct (37-47) % MCV (80-100) fL MCH (25-34) pg MCHC (32-36) g/dL RDW Std Deviation (36.4-46.3) fL RDW Coeff of [place]bron (11.5-14.5) % Plt Count (130-400) K/uL MPV (7.4-10.4) fL Immature Gran % (Auto) % Neut % (Auto) % Lymph % (Auto) % [place] % (Auto) % Eos % (Auto) % Baso % (Auto) % Immature Gran # (Auto) (0.00-0.02) K/uL Neut # (Auto) (1.4-6.5) K/uL Lymph # (Auto) (1.2-3.4) K/uL [place] # (Auto) (0.11-0.59) K/uL Eos # (Auto) (0-0.5) K/uL Baso # (Auto) (0-0.2) K/uL Sodium (136-145) mmol/L Potassium (3.5-5.1) mmol/L Chloride (98-107) mmol/L Carbon Dioxide (21-32) mmol/L Anion Gap (3-11) BUN (7-18) mg/dl Creatinine (0.6-1.2) mg/dl Est Cr Clr Drug Dosing ml/min Est GFR ( Amer) Est GFR (Non-Af Amer) BUN/Creatinine Ratio (10-20) Glucose (70-99) mg/dl POC Glucose 586 H* 568 H* (70-99) Calcium (8.5-10.1) mg/dl Total Bilirubin (0.2-1) mg/dl AST (15-37) U/L ALT (12-78) U/L Alkaline Phosphatase (45-117) U/L Total Protein (6.4-8.2) gm/dl Albumin (3.4-5.0) gm/dl Globulin (2.5-4.0) gm/dl Albumin/Globulin Ratio (0.9-2) Lipase (73-393) U/L Beta-Hydroxybutyric Acd (0.2-2.81) mg/dl Urine Color Red Urine Appearance Cloudy A (Clear) Urine pH 7.5 (4.5-7.5) Ur Specific [place] <= 1.005 (1.000-1.030) Urine Protein 2+ H (Negative) Urine Glucose (UA) 3+ H (Negative) Urine Ketones Trace H (Negative) Urine Blood 3+ H (Negative) Urine Nitrite Negative (Negative) Urine Bilirubin Negative (Negative) Urine Urobilinogen Negative (Negative) Ur Leukocyte Esterase Negative (Negative) Urine RBC >30 H (0-4) /hpf Urine WBC 5-10 H (0-5) /hpf Ur Epithelial Cells >30 H (0-5) /lpf Urine Bacteria 1+ H (Negative) 06/20/19 06/20/19 06/20/19 Range/Units 11:36 11:36 12:59 WBC 5.26 (4.8-10.8) K/uL RBC 3.97 L (4.2-5.4) M/uL Hgb 12.2 (12.0-16.0) g/dL Hct 37.0 (37-47) % MCV 93.2 (80-100) fL MCH 30.7 (25-34) pg MCHC 33.0 (32-36) g/dL RDW Std Deviation 50.6 H (36.4-46.3) fL RDW Coeff of Lebron 15.3 H (11.5-14.5) % Plt Count 368 (130-400) K/uL MPV 10.4 (7.4-10.4) fL Immature Gran % (Auto) 0.2 % Neut % (Auto) 50.3 % Lymph % (Auto) 34.6 % [place] % (Auto) 11.8 % Eos % (Auto) 2.5 % Baso % (Auto) 0.6 % Immature Gran # (Auto) 0.01 (0.00-0.02) K/uL Neut # (Auto) 2.65 (1.4-6.5) K/uL Lymph # (Auto) 1.82 (1.2-3.4) K/uL [place] # (Auto) 0.62 H (0.11-0.59) K/uL Eos # (Auto) 0.13 (0-0.5) K/uL Baso # (Auto) 0.03 (0-0.2) K/uL Sodium 129 L (136-145) mmol/L Potassium 4.3 (3.5-5.1) mmol/L Chloride 93 L (98-107) mmol/L Carbon Dioxide 29 (21-32) mmol/L Anion Gap 7.0 (3-11) BUN 24 H (7-18) mg/dl Creatinine 4.00 H (0.6-1.2) mg/dl Est Cr Clr Drug Dosing 14.5 ml/min Est GFR ( Amer) 14.2 Est GFR (Non-Af Amer) 12.3 BUN/Creatinine Ratio 6.0 L (10-20) Glucose 603 H* (70-99) mg/dl POC Glucose 540 H* (70-99) Calcium 8.6 (8.5-10.1) mg/dl Total Bilirubin 0.6 (0.2-1) mg/dl AST 16 (15-37) U/L ALT 39 (12-78) U/L Alkaline Phosphatase 98 (45-117) U/L Total Protein 7.2 (6.4-8.2) gm/dl Albumin 3.2 L (3.4-5.0) gm/dl Globulin 4.0 (2.5-4.0) gm/dl Albumin/Globulin Ratio 0.8 L (0.9-2) Lipase 169 (73-393) U/L Beta-Hydroxybutyric Acd 40.95 H (0.2-2.81) mg/dl Urine Color Urine Appearance (Clear) Urine pH (4.5-7.5) Ur Specific [place] (1.000-1.030) Urine Protein (Negative) Urine Glucose (UA) (Negative) Urine Ketones (Negative) Urine Blood (Negative) Urine Nitrite (Negative) Urine Bilirubin (Negative) Urine Urobilinogen (Negative) Ur Leukocyte Esterase (Negative) Urine RBC (0-4) /hpf Urine WBC (0-5) /hpf Ur Epithelial Cells (0-5) /lpf Urine Bacteria (Negative) Imaging Data Radiologist's Impression: Radiology results as stated below per my review and the radiologist's interpretation: XR chest 1V portable HISTORY: ERSD, vomiting, eval for fluids overload COMPARISON: Chest 02/04/2019. FINDINGS: The lungs are clear. Cardiac silhouette is normal in size. No pleural effusions. No pneumothorax. IMPRESSION: No acute process. ACT 112: Negative or not required by law. Electronically signed by: Jairon Shannon M.D. 06/20/2019 11:44 AM ABDOMEN AND PELVIS CT WITHOUT CONTRAST CT DOSE: 291.71 mGy.cm HISTORY: Right lower quadrant abdominal pain. TECHNIQUE: Multiaxial CT images of the abdomen and pelvis were performed without contrast. A dose lowering technique was utilized adhering to the principles of ALARA. COMPARISON STUDY: Abdomen and pelvis CT 06/03/2019. FINDINGS: The lung bases are clear. No pneumoperitoneum. No pneumatosis. No fractures within the visualized osseous structures. Trace pericardial effusion. Cholecystectomy. The unenhanced liver, spleen, adrenal glands, and pancreas are unremarkable. No retroperitoneal lymphadenopathy. Punctate calcifications within the renal sinuses. These may represent small stones or vascular calcifications. No ureteral stones. No hydronephrosis. No retroperitoneal lymphadenopathy. The intrauterine device is in place. Mild bladder wall thickening. Suboptimal evaluation for bowel pathology due to the lack of intravenous and oral contrast. However, there is no definite bowel wall thickening or obstruction. The appendix is not identified and reportedly surgically absent. IMPRESSION: 1. No definite bowel wall thickening or obstruction. 2. Moderate stool within the colon and rectum. This is similar to the prior study. 3. The intrauterine device is in good position. 4. Cholecystectomy. 5. Punctate calcifications within the renal sinuses persist. This may represent small stones or vascular calcifications.. 6. Mild bladder wall thickening. Recommend correlation with urinalysis to exclude a cystitis. 7. Trace pericardial fluid. ACT 112: Negative or not required by law. Electronically signed by: Jaiorn Shannon M.D. 06/20/2019 12:32 PM ECG Data Attestation: I personally reviewed and interpreted this ECG as follows: Indication: + vomiting Rate (beats per minute): 79 Rhythm: + normal sinus ECG ST segments: no ST depression and no ST elevation ECG Findings: no PACs and no PVCs Comparison ECG Date: from (02/05/19) Change: no significant change Blood Pressure Blood Pressure Findings: Elevated blood pressure Blood Pressure Disposition: further management by hospitalist [facility] Curtis This patient comes in as scribed above she has a complex medical history and has been having ongoing abdominal pain and vomiting for several months off and on. She has been seen by GI and has an appointment to see them in [place] on Saturday. She receives dialysis on Saturday, , Saturday. She has not receive dialysis today. She is mildly hypertensive but has otherwise stable vital signs and is afebrile. I did order IV access and blood work. Also IV Zofran. Multiple blood testing was obtained. I reviewed her old records she had a CAT scan which showed constipation and no other acute findings on June 03 and also 1 earlier in May with similar findings. She tells me that this pain feels different than before and in light of this I did do a CAT scan there is constipation but no acute findings. Her blood sugar was elevated at 600. She was given 6 units insulin IV initially and brought it down to 530. She was given another 6 iv. She did receive Toradol 15 mg IV for pain. Her potassium is not elevated. chest x-ray was clear and she doess not appearing fluid overloaded. EKG does not show any ischemic changes or any suggestion of hyperkalemia or electrolyte abnormalities.. Also its compounded by the fact that she is a dialysis patient and there is concern for given her fluids. I do think she needs to be admitted/observed for further treatment and evaluation. I have consulted Dr. Sepulveda for these measures. Impression & Plan Hyperglycemia, Abdominal pain, Constipation, End-stage renal disease (ESRD), Vomiting Discharge Plan Visit Data *Final* Discharge Date/Time: 06/20/19 14:24 Chief Complaint: Vomiting Stated Complaint: vomiting ED Provider: Yves Perez Discharge Problem: Hyperglycemia, Abdominal pain, Constipation, End-stage renal disease (ESRD), Vomiting Patient Disposition: Admitted As Inpatient Discharge Instructions Interventions: ED Discharge Assessment Last Done: 06/20/19 14:24 Discharge Problem: Abdominal pain Qualifiers: Abdominal location: unspecified location Qualified Code(s): R10.9 - Unspecified abdominal pain Constipation Qualifiers: Constipation type: unspecified constipation type Qualified Code(s): K59.00 - Constipation, unspecified Vomiting Qualifiers: Vomiting type: unspecified Vomiting Intractability: non-intractable Nausea presence: unspecified Qualified Code(s): R11.10 - Vomiting, unspecified The scribe's documentation has been prepared under my direction and personally reviewed by me in its entirety. I confirm that the note above accurately reflects all work, treatment, procedures, and medical decision making performed by me.
[2019-06-20 10:51] LABS: Appearance Urine Cloudy (Clear); Blood Urine 3+ (Negative); Color Urine Red; Glucose Urine UA 3+ (Negative); Ketones Urine Trace (Negative); Leukocyte Esterase Urine Negative (Negative); Nitrite Urine Negative (Negative); Specific Gravity Urine <= 1.005 (1.000-1.030); Urobilinogen Urine Negative (Negative); pH Urine 7.5 (4.5-7.5)
[2019-06-20 10:52] LABS: Protein Urine 2+ (Negative)
[2019-06-20 10:57] LABS: Bilirubin Urine Negative (Negative); Ictotest Urine Negative (Negative); Sulfosalicylic Acid Urine Positive (Negative)
[2019-06-20 11:16] LABS: Bacteria Urine 1+ (Negative); Epithelial Cell Urine >30 /lpf (0-5); RBC Urine >30 /hpf (0-4)
--- NOTE | 2019-06-20 11:45 | XRay Report ---
XR chest 1V portable HISTORY: ERSD, vomiting, eval for fluids overload COMPARISON: Chest 02/04/2019. FINDINGS: The lungs are clear. Cardiac silhouette is normal in size. No pleural effusions. No pneumot horax. IMPRESSION: No acute process. ACT 112: Negative or not required by law. Electronically signed by: Jairon Shannon M.D. 06/20/2019 11:44 AM
[2019-06-20 11:51] LABS: Basophils # (auto) 0.03 K/uL (0-0.2); Basophils % (auto) 0.6 %; Eosinophils # (auto) 0.13 K/uL (0-0.5); Eosinophils % (auto) 2.5 %; Hemoglobin 12.2 g/dL (12.0-16.0); Immature Granulocytes # (auto) 0.01 K/uL (0.00-0.02); Immature Granulocytes % (auto) 0.2 %; Lymphocytes # (auto) 1.82 K/uL (1.2-3.4); Lymphocytes % (auto) 34.6 %; Mean Corpuscular Hemoglobin 30.7 pg (25-34); Mean Corpuscular Volume 93.2 fL (80-100); Mean Platelet Volume 10.4 fL (7.4-10.4); Monocytes # (auto) 0.62 K/uL (0.11-0.59); Monocytes % (auto) 11.8 %; Neutrophils # (auto) 2.65 K/uL (1.4-6.5); Neutrophils % (auto) 50.3 %; Platelet Count 368 K/uL (130-400); RDW Coefficient of Variation 15.3 % (11.5-14.5); RDW Standard Deviation 50.6 fL (36.4-46.3); Red Blood Count 3.97 M/uL (4.2-5.4); White Blood Count 5.26 K/uL (4.8-10.8)
[2019-06-20] MEDS ORDERED: ONDANSETRON INJ 2 MG/ML 2 ML VIAL ONE (11:56)
[2019-06-20] MEDS ORDERED: KETOROLAC TROMETHAMINE 15 MG/ML VIAL IV ONE (12:14)
[2019-06-20] MEDS ORDERED: NovoLIN-R INSULIN PER UNIT CHARGE IV STA ×2 (12:17→13:23)
[2019-06-20 12:25] LABS: Albumin Globulin Ratio 0.8 (0.9-2); Albumin Level 3.2 gm/dl (3.4-5.0); Bilirubin,Total 0.6 mg/dl (0.2-1); Calcium 8.6 mg/dl (8.5-10.1); Creatinine Clr Calc Pharmacy 14.5 ml/min; Est GFR (African American) 14.2; Est GFR (Non-African American) 12.3; Potassium 4.3 mmol/L (3.5-5.1); Total Protein 7.2 gm/dl (6.4-8.2)
--- NOTE | 2019-06-20 12:34 | CT Scan Report ---
ABDOMEN AND PELVIS CT WITHOUT CONTRAST CT DOSE: 291.71 mGy.cm HISTORY: Right lower quadrant abdominal pain. TECHNIQUE: Multiaxial CT images of the abdomen and pelvis were performed without contrast. A dose lo wering technique was utilized adhering to the principles of ALARA. COMPARISON STUDY: Abdomen and pelvis CT 06/03/2019. FINDINGS: The lung bases are clear. No pneumoperitoneum. No pneumatosis. No fractures within the visu alized osseous structures. Trace pericardial effusion. Cholecystectomy. The unenhanced liver, spleen, adrenal glands, and pancreas are unremarkable. No retroperitoneal lymphadenopathy. Punctate calcific ations within the renal sinuses. These may represent small stones or vascular calcifications. No uret eral stones. No hydronephrosis. No retroperitoneal lymphadenopathy. The intrauterine device is in chan ce. Mild bladder wall thickening. Suboptimal evaluation for bowel pathology due to the lack of intrav enous and oral contrast. However, there is no definite bowel wall thickening or obstruction. The appe ndix is not identified and reportedly surgically absent. IMPRESSION: 1. No definite bowel wall thickening or obstruction. 2. Moderate stool within the colon and rectum. This is similar to the prior study. 3. The intrauterine device is in good position. 4. Cholecystectomy. 5. Punctate calcifications within the renal sinuses persist. This may represent small stones or vascu lar calcifications.. 6. Mild bladder wall thickening. Recommend correlation with urinalysis to exclude a cystitis. 7. Trace pericardial fluid. ACT 112: Negative or not required by law. Electronically signed by: Jairon Shannon M.D. 06/20/2019 12:32 PM
[2019-06-20 12:44] LABS: Beta-Hydroxybutyrate 40.95 mg/dl (0.2-2.81)
--- NOTE | 2019-06-20 14:22 | History & Physical Report ---
Date of Service June 20, 2019 Assessment & Plan (1) Abdominal pain: History of gastroparesis and biliary tract disease. Status post recent ERCP with sphincterotomy and dilatation. Now with 3 days of epigastric/right side abdominal pain associate with nausea and vomiting. Patient reports coffee ground emesis. Hemoglobin stable. Hemodynamically stable. LFTs normal. No acute findings on CT of abdomen and pelvis. Initial management will consist of bowel rest, IV fluids, IV pantoprazole, antiemetics. Consult GI for their input. (2) DM type 1 (diabetes mellitus, type 1): Diabetes mellitus type 1 complicated by coronary artery disease, retinopathy, nephropathy, neuropathy. Tends to be brittle. Blood sugar now 600 without increased anion gap. Check Hgb A1C. Will initially utilize insulin infusion for glycemic control. Check hemoglobin A1c. Consult blow molding machine tender. (3) Coronary artery disease: No anginal symptoms. No acute EKG changes. Hold aspirin in light of GI symptoms. Continue carvedilol. Continue atorvastatin as GI symptoms permit. (4) Diastolic heart failure: Chronic left ventricular diastolic heart failure. Compensated. Follow exam/fluid status. Management with torsemide and hemodialysis as needed. (5) Hypertension: Continue carvedilol. (6) CKD (chronic kidney disease) stage V requiring chronic dialysis: End-stage renal disease secondary to diabetic nephropathy. On maintenance hemodialysis 3 days a week. Due for dialysis today, but no acute need for dialysis. Nephrology consulted for management. (7) Anemia due to chronic kidney disease: Hemoglobin 12.2, but may be hemoconcentrated. Follow H&H. (8) Seizure: Convert levetiracetam to parenteral until able to take oral medications. (9) DVT prophylaxis: No anticoagulants secondary to upper GI bleeding. SCDs. Ambulate. (10) Discharge planning issues: Anticipated discharge to home. Primary care follow-up with Dr. Santo. Nephrology follow-up with Dr. Monroe. History of Present Illness Chief Complaint: abdominal pain, nausea, vomiting Primary Care Provider: Mitchel Santo MD 48 YO female followed by Dr. Santo in [place] for primary care. History of diabetes mellitus type 1, chronic kidney disease stage V on hemodialysis, gastroparesis, coronary artery disease, and other problems. Chronic/intermittent GI problems related to gastroparesis. Underwent ERCP about 2 weeks ago with sphincterotomy and dilatation. Presented to the ED with 3 days of nausea and vomiting associated with abdominal pain. Patient describes coffee-ground emesis. Abdominal pain is epigastric and right-sided, sometimes severe. Symptoms worsened by eating. He is a pantoprazole and ondansetron without relief. No bowel movements for several days; no melena or hematochezia prior to last bowel movement. She was told that recent urinalysis showed some hematuria, but has not noted any gross hematuria. No dysuria. No fever, but experiencing some chills. Glucose monitoring at home "high" for fingerstick blood sugars and continuous glucose monitor. Allergies Allergy/AdvReac Type Severity Reaction Status Date / Time Fish Containing Products Allergy Mild Hives Verified 06/20/19 11:19 latex Allergy Mild hives Verified 06/20/19 11:19 Home Medications Home Medications Medication Instructions Recorded Confirmed Type Basaglar KwikPen U-100 Insulin 10 unit SUBCUT QAM 12/19/18 06/20/19 History Basaglar KwikPen U-100 Insulin 12 unit SUBCUT QPM 12/19/18 06/20/19 History Breo Ellipta 1 inh INHALATION QAM 12/19/18 06/20/19 History Power Caps 1 cap PO QAM 12/19/18 06/20/19 History albuterol sulfate [Proventil HFA] 2 puff INHALATION Q4 PRN 12/19/18 06/20/19 History aspirin [Aspir-81] 81 mg PO QAM 12/19/18 06/20/19 History atorvastatin [Lipitor] 80 mg PO QAM 12/19/18 06/20/19 History bisacodyl 5 mg PO DAILY PRN 12/19/18 06/20/19 History calcium acetate 667 mg PO TIDM 12/19/18 06/20/19 History carvedilol 25 mg PO BID 12/19/18 06/20/19 History ergocalciferol (vitamin D2) 50,000 unit PO MONTHLY 12/19/18 06/20/19 History [Vitamin D2] glucose 10 g PO UD 12/19/18 06/20/19 History insulin lispro [Admelog SoloStar 2 unit SUBCUT TIDM 12/19/18 06/20/19 History U-100 Insulin] lamotrigine [Lamictal] 100 mg PO QPM 12/19/18 06/20/19 History metoclopramide HCl [Reglan] 5 mg PO BID 12/19/18 06/20/19 History multivitamin 1 tab PO QAM 12/19/18 06/20/19 History ondansetron 4 mg PO Q8H PRN 12/19/18 06/20/19 History pantoprazole 40 mg PO QAM 12/19/18 06/20/19 History polyethylene glycol 3350 [Miralax] 17 g PO BID PRN 12/19/18 06/20/19 History sertraline [Zoloft] 50 mg PO QAM 12/19/18 06/20/19 History torsemide 100 mg PO QPM 12/19/18 06/20/19 History quetiapine 50 mg PO HS 02/05/19 06/20/19 History bupropion HCl 100 mg PO BID #0 tab 02/07/19 06/20/19 Rx aripiprazole 5 mg PO HS 05/20/19 06/20/19 History bisacodyl 10 mg MO DAILY PRN #2 ea 05/20/19 06/20/19 Rx metoclopramide HCl [Reglan] 10 mg PO Q6H #10 tab 05/20/19 06/20/19 Rx trazodone 75 mg PO HS 05/20/19 06/20/19 History linezolid 600 mg PO BID 06/03/19 06/20/19 History levetiracetam 500 mg PO BID 06/20/19 06/20/19 History Past Med/Surg History Medical History (Updated 06/21/19 @ 04:32 by Markie Sepulveda MD) Anemia due to chronic kidney disease (Chronic) Arteriovenous fistula for hemodialysis in place, primary (Chronic) Bipolar disorder (Chronic) CKD (chronic kidney disease) stage V requiring chronic dialysis Coronary artery disease (Chronic) "2016 - cardiac catheterization showing nonobstructive coronary disease Stress test 06/2017 - possible small area of ischemia in the anterior wall" CVA (cerebral vascular accident) (Chronic) 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 history of CVA in 2018 Residual R sided weakness Depression (Chronic) Diabetic gastroparesis (Chronic) Diastolic heart failure (Chronic) DM type 1 (diabetes mellitus, type 1) (Chronic) ESRD (end stage renal disease) on dialysis GERD (gastroesophageal reflux disease) (Chronic) History of GI bleed (Chronic) Hyperlipidemia (Chronic) Hypertension (Chronic) Seizure (Chronic) Surgical History (Updated 06/21/19 @ 04:28 by Markie Sepulveda MD) Hx of appendectomy (Inactive) Hx of cholecystectomy (Inactive) Hx of tubal ligation (Inactive) Family History Mother Coronary heart disease Hypertension Father Coronary heart disease Other No significant family history Social History Preferred Language: Israeli Communication Ability: Effective Outside Dealer Sales Representative Required: No Beliefs That Will Affect Care: None marital status: Current Living Situation: Spouse current occupational status: unemployed Other Information That Helps Us Care for You: No Feels Safe at Home: Yes Safety Concerns: Feels Safe At This Time Smoking Status: Former smoker Hx Alcohol Use: No Hx Substance Use: No Review of Systems Constitutional: + chills and + weight loss; no fever Eyes: + worsening vision (chronic, no acute changes); no diplopia Ear, Nose, Mouth, Throat: no nasal congestion, no sinus pain/pressure and no sore throat Respiratory: + cough (occasional, mild); no dyspnea Cardiovascular: no chest pain, no palpitations and no edema Gastrointestinal: as per Subjective / HPI Genitourinary: no dysuria and no hematuria Musculoskeletal: no joint pain and no myalgia Integumentary: no rash and no new lesions Neurologic: + headache(s) diabetic neuropathy Endocrine: + polydipsia and + polyuria blood sugars elevated Hematologic / Lymphatic: + easy bruising; no easy bleeding and no lymphadenopathy Results & Data Vital Signs (Past 12 Hours) Vital Signs Temp Pulse Pulse Resp BP BP Pulse Ox 06/20/19 13:00 79 24 153/69 H 97 06/20/19 12:00 77 20 176/48 H 98 06/20/19 10:33 78 98 06/20/19 09:36 37.0 C 80 20 181/72 H 99 Laboratory Results Laboratory Tests 06/20/19 11:36 WBC 5.26 Hgb 12.2 Plt Count 368 Laboratory Tests 06/20/19 11:36 Sodium 129 L Potassium 4.3 Chloride 93 L Carbon Dioxide 29 Anion Gap 7.0 BUN 24 H Creatinine 4.00 H Glucose 603 H* Calcium 8.6 Laboratory Tests 06/20/19 11:36 Total Bilirubin 0.6 AST 16 ALT 39 Alkaline Phosphatase 98 Lipase 169 Diagnostic Findings PORTABLE CHEST X-RAY FINDINGS: The lungs are clear. Cardiac silhouette is normal in size. No pleural effusions. No pneumothorax. IMPRESSION: No acute process. ACT 112: Negative or not required by law. Electronically signed by: Jairon Shannon M.D. 06/20/2019 11:[address] ABDOMEN & PELVIS FINDINGS: The lung bases are clear. No pneumoperitoneum. No pneumatosis. No fractures within the visualized osseous structures. Trace pericardial effusion. Cholecystectomy. The unenhanced liver, spleen, adrenal glands, and pancreas are unremarkable. No retroperitoneal lymphadenopathy. Punctate calcifications within the renal sinuses. These may represent small stones or vascular calcifications. No ureteral stones. No hydronephrosis. No retroperitoneal lymphadenopathy. The intrauterine device is in place. Mild bladder wall thickening. Suboptimal evaluation for bowel pathology due to the lack of intravenous and oral contrast. However, there is no definite bowel wall thickening or obstruction. The appendix is not identified and reportedly surgically absent. IMPRESSION: 1. No definite bowel wall thickening or obstruction. 2. Moderate stool within the colon and rectum. This is similar to the prior study. 3. The intrauterine device is in good position. 4. Cholecystectomy. 5. Punctate calcifications within the renal sinuses persist. This may represent small stones or vascular calcifications.. 6. Mild bladder wall thickening. Recommend correlation with urinalysis to exclude a cystitis. 7. Trace pericardial fluid. ACT 112: Negative or not required by law. Electronically signed by: Jairon Shannon M.D. 06/20/2019 12:32 PM ECG Additional Comments: EKG performed at 1115 reviewed and demonstrated normal sinus rhythm at 80/minute, QTC 490 ms, no acute ST or T wave abnormalities. Code Status & VTE Plan VTE Prophylaxis Plan VTE Prophylaxis will be ordered: Yes (1) Anemia due to chronic kidney disease Chronic kidney disease stage: on chronic dialysis Qualified Code(s): N18.6 - End stage renal disease; D63.1 - Anemia in chronic kidney disease; Z99.2 - Dependence on renal dialysis (2) Abdominal pain Abdominal location: unspecified location Qualified Code(s): R10.9 - Unspecified abdominal pain
[2019-06-20] MEDS ORDERED: DKA GOAL RANGE 150-250 mg/dl ONE (14:28)
[2019-06-20] MEDS ORDERED: PANTOprazole 80 MG in DEXTROSE 5% 100 ML IV ONE (14:45)
[2019-06-20] MEDS ORDERED: ALBUTEROL HFA 8 GM INHALER INH PRN (14:55)
[2019-06-20] MEDS ORDERED: ONDANSETRON INJ 2 MG/ML 2 ML VIAL IV PRN (14:55)
[2019-06-20] MEDS ORDERED: POTASSIUM CHLORIDE 10 MEQ in SODIUM CHLORIDE 0.9% 1000ML 1,000 ML IV SCH (15:00)
[2019-06-20] MEDS ORDERED: INSULIN REGULAR 250 UNITS in SODIUM CHLORIDE 0.9% 247.5 ML IV SCH (15:15)
[2019-06-20] MEDS ORDERED: INSULIN HUMAN REGULAR PER UNIT 6 UNITS in SYRINGE 5.94 ML IV ONE (15:15)
[2019-06-20 16:24] LABS: Hematocrit (blood only) 34.4 % (37-47); Hemoglobin 11.4 g/dL (12.0-16.0)
[2019-06-20] MEDS: PANTOprazole 40 MG in DEXTROSE 5% 100 ML IV SCH ×2 (16:32→19:48)
[2019-06-20] MEDS: INSULIN ASPART 100 UNITS/ML 3 ML PEN SC SCH ×2 (16:32→21:30)
[2019-06-20] MEDS ORDERED: PNEUMOCOCCAL Polysaccharide Vaccine 25mcg/0.5mL vial/Syr IM ONE (16:45)
[2019-06-20 16:49] LABS: BUN Creatinine Ratio 6.6 (10-20); Blood Urea Nitrogen 26 mg/dl (7-18); Calcium 8.8 mg/dl (8.5-10.1); Carbon Dioxide 26 mmol/L (21-32); Chloride 97 mmol/L (98-107); Est GFR (African American) 14.7; Est GFR (Non-African American) 12.7; Glucose 371 mg/dl (70-99); Magnesium 2.4 mg/dl (1.8-2.4); Phosphorus 2.2 mg/dl (2.5-4.9); Potassium 4.1 mmol/L (3.5-5.1); Sodium 134 mmol/L (136-145)
[2019-06-20] MEDS: HYDROmorphone INJ 0.5 MG/0.5 ML SYR IV PRN ×2 (17:43→19:48)
[2019-06-20] MEDS: carvediloL 25 MG TAB PO SCH (19:53)
[2019-06-20] MEDS: TRAZODONE HCL 50 MG TAB PO SCH (19:53)
[2019-06-20] MEDS: buPROPion HCl 100 MG TABLET PO SCH (19:53)
[2019-06-20 20:34] LABS: BUN Creatinine Ratio 6.6 (10-20); Calcium 8.8 mg/dl (8.5-10.1); Est GFR (African American) 14.6; Est GFR (Non-African American) 12.6; Potassium 3.4 mmol/L (3.5-5.1)
[2019-06-20] MEDS ORDERED: QUETIAPINE FUMARATE 25 MG TABLET PO SCH (21:00)
[2019-06-20] MEDS ORDERED: ARIPiprazole 5 MG TAB PO SCH (21:00)
[2019-06-20] MEDS: POTASSIUM CHLORIDE 40 MEQ in D5W AND 1/2NSS 1,000 ML IV SCH (21:35)
[2019-06-21 00:49] LABS: Hematocrit (blood only) 29.9 % (37-47); Hemoglobin 10.1 g/dL (12.0-16.0)
[2019-06-21 01:07] LABS: BUN Creatinine Ratio 6.3 (10-20); Calcium 8.1 mg/dl (8.5-10.1); Creatinine Clr Calc Pharmacy 15.1 ml/min; Est GFR (African American) 14.8; Est GFR (Non-African American) 12.7; Potassium 3.3 mmol/L (3.5-5.1)
[2019-06-21] MEDS: PANTOprazole 40 MG in DEXTROSE 5% 100 ML IV SCH ×2 (01:28→06:00)
[2019-06-21] MEDS ORDERED: POTASSIUM CHLORIDE 10 MEQ TABCR PO STA (02:23)
[2019-06-21] MEDS ORDERED: PHARMACY GLYCEMIC MGMT CONSULT PRN (02:40)
[2019-06-21] MEDS ORDERED: CARBOHYDRATES FOR HYPOGLYCEMIA PO PRN (03:00)
[2019-06-21] MEDS ORDERED: GLUCOSE 10 TABS/TUBE PO PRN (03:00)
[2019-06-21] MEDS ORDERED: DEXTROSE 50% 50 ML SYRINGE IV PRN (03:00)
[2019-06-21] MEDS ORDERED: GLUCAGON FOR INJ 1 MG VIAL SQ PRN (03:00)
[2019-06-21] MEDS ORDERED: GLUCOSE 40% GEL 15 GM TUBE PO PRN (03:00)
[2019-06-21] MEDS ORDERED: INSULIN ASPART 100 UNITS/ML 3 ML PEN SC ONE ×2 (04:15→08:00)
[2019-06-21] MEDS: HYDROmorphone INJ 0.5 MG/0.5 ML SYR IV PRN ×3 (04:30→20:32)
[2019-06-21 04:43] LABS: Hematocrit (blood only) 31.1 % (37-47); Hemoglobin 10.3 g/dL (12.0-16.0); Mean Corpuscular Hemoglobin 30.3 pg (25-34); Mean Corpuscular Hgb Conc 33.1 g/dL (32-36); Mean Corpuscular Volume 91.5 fL (80-100); Mean Platelet Volume 9.9 fL (7.4-10.4); Platelet Count 326 K/uL (130-400); RDW Coefficient of Variation 15.5 % (11.5-14.5); RDW Standard Deviation 50.2 fL (36.4-46.3); White Blood Count 4.32 K/uL (4.8-10.8)
[2019-06-21] MEDS ORDERED: LORazepam 0.5 MG/1 ML VIAL IV PRN (04:48)
[2019-06-21 05:04] LABS: Albumin Level 2.5 gm/dl (3.4-5.0); BUN Creatinine Ratio 6.3 (10-20); Bilirubin Direct 0.1 mg/dl (0-0.2); Calcium 8.1 mg/dl (8.5-10.1); Creatinine Clr Calc Pharmacy 15.4 ml/min; Est GFR (Non-African American) 12.9; Potassium 3.6 mmol/L (3.5-5.1)
[2019-06-21 05:12] LABS: Bilirubin,Total 0.5 mg/dl (0.2-1); Total Protein 5.7 gm/dl (6.4-8.2)
--- NOTE | 2019-06-21 05:58 | Electrocardiogram Report ---
Test Reason : Blood Pressure : / mmHG Vent. Rate : 079 BPM Atrial Rate : 079 BPM P-R Int : 162 ms QRS Dur : 082 ms QT Int : 428 ms P-R-T Axes : 056 -01 050 degrees QTc Int : 490 ms Normal sinus rhythm Possible Left atrial enlargement Nonspecific T wave abnormality Prolonged QT Abnormal ECG When compared with ECG of 05-FEB-2019 06:34, Nonspecific T wave abnormality now evident in Anterior leads Confirmed by Clay Griffin ([id number]) on 06/21/2019 5:58:22 AM Referred By: REFERRED SELF Confirmed By:Clay Griffin
[2019-06-21] MEDS: POTASSIUM CHLORIDE 40 MEQ in D5W AND 1/2NSS 1,000 ML IV SCH (06:00)
[2019-06-21] MEDS ORDERED: INSULIN ASPART 100 UNITS/ML 3 ML PEN SC SCH ×2 (06:00→08:00)
[2019-06-21] MEDS ORDERED: INSULIN GLARGINE SOLOSTAR 100 UNITS/ML 3 ML PEN SC ONE (07:30)
[2019-06-21] MEDS: buPROPion HCl 100 MG TABLET PO SCH ×2 (07:42→20:39)
[2019-06-21] MEDS: BUDESONIDE/FORMOTEROL FUMARATE 160/4.5 60 PUFFS/INHALER INH SCH ×2 (07:43→20:39)
[2019-06-21] MEDS: carvediloL 25 MG TAB PO SCH ×2 (07:44→20:38)
[2019-06-21] MEDS ORDERED: SERTRALINE HCL 50 MG TABLET PO SCH (09:00)
[2019-06-21] MEDS ORDERED: NON-FORMULARY MEDICATION (Fluticasone Furoate-Vilanterol [Breo Ellipta] 1 PUFFS) PO SCH (09:00)
[2019-06-21] MEDS ORDERED: MAGNESIUM HYDROXIDE SUSP 30 ML UDC PO ONE (10:32)
[2019-06-21] MEDS ORDERED: ACETAMINOPHEN 325 MG TAB PO PRN (10:33)
--- NOTE | 2019-06-21 10:44 | Hospitalist Progress Note ---
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 Treated by biliary sphincterotomy and balloon sphincteroplasty as outpatient on 06/08/2019 by [facility] gastronenterology) -patient had visited [facility] urology clinic on 06/17/2019 ("presents in referral for evaluation of a history of voiding difficulties, microhematuria and recent UTI with VRE on urine culture treated with linezolid. On review of her chart, she has had numerous urine cultures over the past year, most of which are negative. Her main complaint today is RUQ abdominal pain and constipation. She has a follow-up with GI next week for that. She also does have some burning with urination ongoing for about a week and a sensation of incomplete bladder emptying.") urine culture from 06/17/2019 as outpatient is negative for bacteria. [facility] urology service had considered future outpatient cystoscopy for hematuria as she is known to have kidney stones -presents to hospital on 06/20/2019 with with 3 days of epigastric/right side abdominal pain associate with nausea and vomiting; reported coffee ground emesis to admitting hospitalist -admission urine analysis on 06/20/2019 is without urinary bacteria -generally no acute findings on admission CT abdomen and pelvis 1. No definite bowel wall thickening or obstruction. 2. Moderate stool within the colon and rectum. This is similar to the prior study. 3. The intrauterine device is in good position. 4. Cholecystectomy. 5. Punctate calcifications within the renal sinuses persist. This may represent small stones or vascular calcifications.. 6. Mild bladder wall thickening. Recommend correlation with urinalysis to exclude a cystitis. 7. Trace pericardial fluid. -stable blood counts, normal LFTs; admitting physician started bowel rest, IV fluids, IV pantoprazole, pain medications, and anti-emetics and requested gastroenterology consult -reports to daytime hospitalist on 06/21/2019 that last bowel movement from Saturday06/15/2019 but abdominal pain is more of right lower quadrant. additional bowel regimen ordered. continue supportive care. reviewing results that given lack of hydronephrosis, the abdominal pain is likely of gastrointestinal etiology. given stability of Hgb, there does not appear to be need for pantoprazole drip. and ill switch to oral pantoprazole for now. will give clear liquid diet for now await gastroenterology consult. (2) Anemia due to chronic kidney disease: -admission Hemoglobin 12.2 which may be hemoconcentrated -Hgb stable around 10 (3) DM type 1 (diabetes mellitus, type 1): -Diabetes mellitus type 1 complicated by coronary artery disease, retinopathy, nephropathy, neuropathy. -patient is considered to be legally blind as per outpatient urology notes -admission glucose 600 without increased anion gap. -as of 06/21/2019, insulin requirements being managed by pharmacy glycemic control -Consult outreach educator. (4) CKD (chronic kidney disease) stage V requiring chronic dialysis: -End-stage renal disease secondary to diabetic nephropathy. -On maintenance hemodialysis 3 days a week. -Nephrology consulted for management. (5) Diastolic heart failure: -Chronic left ventricular diastolic heart failure. -continue torsemide 100 mg qPM -hemodialysis patient (6) Coronary artery disease: No anginal symptoms. No acute EKG changes, on telemetry Continue carvedilol and atorvastatin aspirin has been held while awaiting gastronenterology evaluation (7) Hypertension: -Continue carvedilol/torsemide (8) Seizure: (last seizure reported as 1 month ago) Depression on sertraline, quetiapine, trazodone, lamotrigine, levetriacetam on telemetry monitoring (9) DVT prophylaxis: SCDs; Ambulate. (10) Discharge planning issues: Primary care follow-up with Dr. Santo. Nephrology follow-up with Dr. Monroe. Subjective reports to daytime hospitalist on 06/21/2019 that last bowel movement from Saturday06/15/2019 but abdominal pain is more of right lower quadrant. Review of Systems Review of Systems: All systems reviewed & are unremarkable except as noted in HPI & below Physical Exam Constitutional: cooperative Eyes: PERRL, conjunctivae normal, anicteric sclerae EOM intact bilaterally ENMT: external ear and nose normal, oropharynx normal Neck: normal visual inspection Respiratory: normal respiratory effort, lungs clear to auscultation Cardiovascular: Rate/Rhythm: regular rhythm Gastrointestinal (Abdomen): right lower quadrant abdominal tenderness Results & Data Vital Signs (Past 12 Hours) Vital Signs Temp Pulse Resp BP Pulse Ox 06/21/19 06:52 36.8 C 68 18 144/61 H 98 06/21/19 04:22 36.8 C 70 16 147/72 H 99 06/20/19 23:25 36.7 C 62 15 103/60 92 (1) Anemia due to chronic kidney disease Chronic kidney disease stage: on chronic dialysis Qualified Code(s): N18.6 - End stage renal disease; D63.1 - Anemia in chronic kidney disease; Z99.2 - Dependence on renal dialysis (2) Abdominal pain Abdominal location: unspecified location Qualified Code(s): R10.9 - Unspecified abdominal pain
[2019-06-21] MEDS: POLYETHYLENE (MIRALAX) 17 GM PACK PO SCH (11:40)
[2019-06-21] MEDS: PANTOprazole 40 MG TAB PO SCH (12:24)
[2019-06-21] MEDS: ATORVASTATIN 40 MG TAB PO SCH (12:24)
[2019-06-21] MEDS: INSULIN ASPART 100 UNITS/ML 3 ML PEN SC SCH ×3 (12:25→21:32)
[2019-06-21] MEDS: OXYCODONE HCL IR 5 MG TAB (IMMEDIATE RELEASE) PO PRN (12:28)
--- NOTE | 2019-06-21 13:28 | Gastrointestinal Consultation ---
Date of Consultation June 21, 2019 Assessment & Plan (1) Abdominal pain: likely combination of gastroparesis and constipation (2) Constipation: moderate stool in the rectum seen on CT (3) Vomiting: suspect this is 2/2 gastroparesis and constipation. likely bilious emesis. Recs: 1. optimize bowel regimen for constipation, currently on miralax daily also received milk of magnesia; can increase miralax to BID as needed 2. start reglan 5 mg TID with meals for gastroparesis 3.strict blood glucose control for gastroparesis no plans for endoscopic procedures at this time rest as per primary team Thank you for allowing me to participate in the care of this patient History of Present Illness Attending Physician: Juve Berumen MD 48 yo female with hx papillary stenosis s/p sphincterotomy and sphincteroplasty as an outpatient 06/08/19, gastroparesis here with abdominal pains and vomiting. She has been having these symptoms for 3 days, describes the pains as RLQ, sharp, severe, radiating to her back, associated with constipation for 5 days. She notes these pains are different from her pains prior to ERCP 06/08/19 in t hat these pains are more severe. She has a hx DM1 and CKD as well as CAD. She was found to be significantly hyperglycemic on admission as well. CT A/P showed moderate stool in the colon. She notes an episode of dark emesis (likely bilious), hgb has been stable since admission. Otherwise no other symptoms at this time. Labs reviewed, mild anemia with hgb of 10.3. ERCP as above. Allergies Allergy/AdvReac Type Severity Reaction Status Date / Time Fish Containing Products Allergy Mild Hives Verified 06/20/19 11:19 latex Allergy Mild hives Verified 06/20/19 11:19 Home Medications Home Medications Medication Instructions Recorded Confirmed Type Basaglar KwikPen U-100 Insulin 10 unit SUBCUT QAM 12/19/18 06/20/19 History Basaglar KwikPen U-100 Insulin 12 unit SUBCUT QPM 12/19/18 06/20/19 History Breo Ellipta 1 inh INHALATION QAM 12/19/18 06/20/19 History Bartholomew Caps 1 cap PO QAM 12/19/18 06/20/19 History albuterol sulfate [Proventil HFA] 2 puff INHALATION Q4 PRN 12/19/18 06/20/19 History aspirin [Aspir-81] 81 mg PO QAM 12/19/18 06/20/19 History atorvastatin [Lipitor] 80 mg PO QAM 12/19/18 06/20/19 History bisacodyl 5 mg PO DAILY PRN 12/19/18 06/20/19 History calcium acetate 667 mg PO TIDM 12/19/18 06/20/19 History carvedilol 25 mg PO BID 12/19/18 06/20/19 History ergocalciferol (vitamin D2) 50,000 unit PO MONTHLY 12/19/18 06/20/19 History [Vitamin D2] glucose 10 g PO UD 12/19/18 06/20/19 History insulin lispro [Admelog SoloStar 2 unit SUBCUT TIDM 12/19/18 06/20/19 History U-100 Insulin] lamotrigine [Lamictal] 100 mg PO QPM 12/19/18 06/20/19 History metoclopramide HCl [Reglan] 5 mg PO BID 12/19/18 06/20/19 History multivitamin 1 tab PO QAM 12/19/18 06/20/19 History ondansetron 4 mg PO Q8H PRN 12/19/18 06/20/19 History pantoprazole 40 mg PO QAM 12/19/18 06/20/19 History polyethylene glycol 3350 [Miralax] 17 g PO BID PRN 12/19/18 06/20/19 History sertraline [Zoloft] 50 mg PO QAM 12/19/18 06/20/19 History torsemide 100 mg PO QPM 12/19/18 06/20/19 History quetiapine 50 mg PO HS 02/05/19 06/20/19 History bupropion HCl 100 mg PO BID #0 tab 02/07/19 06/20/19 Rx aripiprazole 5 mg PO HS 05/20/19 06/20/19 History bisacodyl 10 mg CO DAILY PRN #2 ea 05/20/19 06/20/19 Rx metoclopramide HCl [Reglan] 10 mg PO Q6H #10 tab 05/20/19 06/20/19 Rx trazodone 75 mg PO HS 05/20/19 06/20/19 History linezolid 600 mg PO BID 06/03/19 06/20/19 History levetiracetam 500 mg PO BID 06/20/19 06/20/19 History Patient History Medical History (Updated 06/21/19 @ 04:32 by Markie Sepulveda MD) Anemia due to chronic kidney disease (Chronic) Arteriovenous fistula for hemodialysis in place, primary (Chronic) Bipolar disorder (Chronic) CKD (chronic kidney disease) stage V requiring chronic dialysis Coronary artery disease (Chronic) "2015 - cardiac catheterization showing nonobstructive coronary disease Stress test 06/2017 - possible small area of ischemia in the anterior wall" CVA (cerebral vascular accident) (Chronic) 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 history of CVA in 2018 Residual R sided weakness Depression (Chronic) Diabetic gastroparesis (Chronic) Diastolic heart failure (Chronic) DM type 1 (diabetes mellitus, type 1) (Chronic) ESRD (end stage renal disease) on dialysis GERD (gastroesophageal reflux disease) (Chronic) History of GI bleed (Chronic) Hyperlipidemia (Chronic) Hypertension (Chronic) Seizure (Chronic) Surgical History (Updated 06/21/19 @ 04:28 by Markie Sepulveda MD) Hx of appendectomy (Inactive) Hx of cholecystectomy (Inactive) Hx of tubal ligation (Inactive) Family History Mother Coronary heart disease Hypertension Father Coronary heart disease Other No significant family history Social History Preferred Language: Bhutanese Communication Ability: Effective Bottle Dealer Required: No Beliefs That Will Affect Care: None marital status: Current Living Situation: Spouse current occupational status: unemployed Other Information That Helps Us Care for You: No Feels Safe at Home: Yes Safety Concerns: Feels Safe At This Time Smoking Status: Former smoker Hx Alcohol Use: No Hx Substance Use: No Review of Systems Constitutional: no fever, no chills and no weight loss Eyes: as per Subjective / HPI Ear, Nose, Mouth, Throat: as per Subjective / HPI Respiratory: no dyspnea and no dyspnea on exertion Cardiovascular: no chest pain and no palpitations Gastrointestinal: as per Subjective / HPI Musculoskeletal: no joint pain and no swelling Integumentary: no rash and no lesions Neurologic: no numbness and no paresthesia Psychiatric: no depression and no anxiety Endocrine: no fatigue Hematologic / Lymphatic: no easy bleeding and no easy bruising Physical Exam Constitutional: WD/WN, vitals as above Eyes: EOM intact bilaterally Neck: normal visual inspection Respiratory: normal respiratory effort, lungs clear to auscultation Cardiovascular: RRR, no murmur, no edema Gastrointestinal (Abdomen): Inspection/Auscultation: abdomen normal to inspection; abdomen not distended Percussion/Palpation: abdomen soft; abdomen nontender and no hepatosplenomegaly Musculoskeletal: Extremities: no cyanosis Gait: normal gait Skin: no rashes, warm and dry Neurologic: moves all extremities Psychiatric: A+Ox3, euthymic affect Results & Data Vital Signs (Past 12 Hours) Vital Signs Temp Pulse Resp BP Pulse Ox 06/21/19 11:26 36.9 C 65 20 148/67 H 98 06/21/19 06:52 36.8 C 68 18 144/61 H 98 06/21/19 04:22 36.8 C 70 16 147/72 H 99 PG Care Time/CCT Total # of Minutes Spent Total Time Spent with Patient: Total time spent is greater than 50% in coordination of care (as documented) at patient's floor/unit and/or counseling patient: (1) Abdominal pain Abdominal location: unspecified location Qualified Code(s): R10.9 - Unspecified abdominal pain (2) Constipation Constipation type: unspecified constipation type Qualified Code(s): K59.00 - Constipation, unspecified (3) Vomiting Nausea presence: unspecified Vomiting Intractability: non-intractable Vomiting type: unspecified Qualified Code(s): R11.10 - Vomiting, unspecified
--- NOTE | 2019-06-21 15:31 | Pharmacy Report ---
Glycemic Control Consultation - Date of Service June 21, 2019 - Scope Scope: Glycemic Pharmacist consulted by Dr Thurston on 06/21 for glycemic control and to write orders per [facility] inpatient glycemic control protocol - Objective Weight: 64.4 kg Accuchecks BSG (last 24hrs): 06/20/19 06/20/19 06/20/19 16:09 16:23 17:41 Glucose 371 H* POC Glucose 417 H* 274 H 06/20/19 06/20/19 06/20/19 18:32 19:39 19:59 Glucose 144 H POC Glucose 222 H 177 H 06/20/19 06/20/19 06/20/19 20:35 21:01 21:19 Glucose POC Glucose 116 H 102 H 103 H 06/20/19 06/20/19 06/21/19 22:06 23:24 00:11 Glucose POC Glucose 133 H 128 H 110 H 06/21/19 06/21/19 06/21/19 00:15 01:26 01:48 Glucose 97 POC Glucose 82 66 L* 06/21/19 06/21/19 06/21/19 02:17 02:52 04:12 Glucose 104 H POC Glucose 78 81 06/21/19 06/21/19 06/21/19 04:17 06:03 07:32 Glucose POC Glucose 108 H 185 H 218 H 06/21/19 11:10 Glucose POC Glucose 231 H Laboratory Data (last 24hrs): 06/20/19 06/20/19 06/20/19 16:09 17:16 19:59 Potassium 4.1 3.4 L D Carbon Dioxide 26 30 Anion Gap 10.0 6.0 Creatinine 3.90 H 3.91 H Est Cr Clr Drug Dosing 15.0 15.0 Beta-Hydroxybutyric Acd TNP 27.18 H 06/21/19 06/21/19 00:15 04:12 Potassium 3.3 L 3.6 Carbon Dioxide 29 29 Anion Gap 4.0 5.0 Creatinine 3.88 H 3.84 H Est Cr Clr Drug Dosing 15.1 15.4 Beta-Hydroxybutyric Acd - Recent Pertinent Medications Outpatient Anti-diabetic Regimen: * Basaglar 10 units qAM * Confirmed with patient she no longer takes a PM dose of Basaglar. She reports this is due to severe hypoglycemia (in the 20s and 40s). * Admelog 3 units with meals + SS * A1c = 8.9 % 02/05/19 * However, this result is likely somewhat unreliable in ESRD patients d/t interactions between the A1c analyzing technique and high levels of urea in ESRD, reduced RBC life span, iron deficiency anemia, and EPO administration. HbA1c > 7.5% in ESRD patient may overestimate the extent of hyperglycemia in ESRD patients. Risk Factors for Insulin Resistance: * IVF: Dextrose IVF - were stopped at 1100 * Diet: NPO -> clears - Assessment & Plan Assessment & Plan: ASSESSMENT: * 48 y/o F known to the pharmacy glycemic service from previous admissions. She is a very brittle type 1 diabetic. Was admitted with hyperglycemia yesterday (AG and bicarb WNL) but was still initiated on an insulin drip for her hyperglycemia. Overnight, her BSGs dropped and insulin drip was placed on hold. Pharmacy was consulted for glycemic management and correctional insulin was administered. * I gave a one time dose of Lantus 10 units this AM since she had been without basal for a few hours. Will plan to initiate a regimen similar to previous admissions, but not add a PM dose of Lantus since she reports no longer taking this at home. Instead, will obtain frequent BSG checks so that correction can be administered. PLAN FOR INPATIENT GLYCEMIC CONTROL: * Basal insulin * Lantus 10 units qAM * Bolus insulin * NovoLog per scale ACHS or Q6hrs while NPO + 00,04 * Goal Range: Low 120 mg/dL - High 160 mg/dL * Correction Factor: 25 mg/dL/unit * Nutritional / Prandial insulin per carb ratio of 1 unit per 15 grams CHO consumed * Please note that the plan above was derived based on current level of insulin resistance and hospital stress. These recommendations are appropriate for inpatient admission only. Plan of care upon discharge will need to be reassessed to avoid potential outpatient hypo/hyperglycemia. Thank you.
[2019-06-21] MEDS ORDERED: bisacodyL 5 MG TABEC PO ONE (16:07)
[2019-06-21] MEDS: METOCLOPRAMIDE HCL 5 MG TABLET PO SCH ×2 (17:10→20:39)
--- NOTE | 2019-06-21 17:41 | Nephrology Consultation ---
Date of Consultation June 21, 2019 Assessment & Plan (1) End-stage renal disease (ESRD): Patient with ESRD on HD TTS. Her last HD was . She missed Saturday due to vomiting and presented to the ER. Her electrolytes are stable and no signs of volume overload. No need for HD today. -Next HD likely saturday per her schedule unless clinical condition changes. (2) Hyperglycemia: She has brittle diabetes with fluctuating sugars. She is on insulin per primary team. -Stop IV fluids as patient does not make much urine (3) Abdominal pain: Due to gastroparesis and gall bladder disease. She is getting PPIs. Gastroenterology recommendations appreciated. History of Present Illness Reason for Consultation: ESRD Requesting Physician: Markie Sepulveda MD Attending Physician: Juve Berumen MD History of Present Illness This is 48-year-old female with ESRD on dialysis Saturday under my care at [facility] who was admitted on 06/20/2019 with vomiting, abdominal pain and hyperglycemia. Other past medical history include brittle DM1, gastroparesis, bipolar disorder, chronic abdominal pain, acute L basal ganglia stroke November 2018 and recurrent hospitalizations for uncontrolled diabetes. In the ED her BS was in the 600's. She had ERCP 2 weeks ago. She is getting iv fluids and IV PPIs. She is still vomting and has abdominal pain. no SOB. She has right UA AVF. Her last HD was . She missed HD on Saturday due to vomiting and came to ER. Allergies Allergy/AdvReac Type Severity Reaction Status Date / Time Fish Containing Products Allergy Mild Hives Verified 06/20/19 11:19 latex Allergy Mild hives Verified 06/20/19 11:19 Home Medications Home Medications Medication Instructions Recorded Confirmed Type Mercedesaglar SukhiikPen U-100 Insulin 10 unit SUBCUT QAM 12/19/18 06/20/19 History Breo Ellipta 1 inh INHALATION QAM 12/19/18 06/20/19 History Leo Caps 1 cap PO QAM 12/19/18 06/20/19 History albuterol sulfate [Proventil HFA] 2 puff INHALATION Q4 PRN 12/19/18 06/20/19 History aspirin [Aspir-81] 81 mg PO QAM 12/19/18 06/20/19 History atorvastatin [Lipitor] 80 mg PO QAM 12/19/18 06/20/19 History bisacodyl 5 mg PO DAILY PRN 12/19/18 06/20/19 History calcium acetate 667 mg PO TIDM 12/19/18 06/20/19 History carvedilol 25 mg PO BID 12/19/18 06/20/19 History ergocalciferol (vitamin D2) 50,000 unit PO MONTHLY 12/19/18 06/20/19 History [Vitamin D2] glucose 10 g PO UD 12/19/18 06/20/19 History insulin lispro [Admelog SoloStar 2 unit SUBCUT TIDM 12/19/18 06/20/19 History U-100 Insulin] lamotrigine [Lamictal] 100 mg PO QPM 12/19/18 06/20/19 History metoclopramide HCl [Reglan] 5 mg PO BID 12/19/18 06/20/19 History multivitamin 1 tab PO QAM 12/19/18 06/20/19 History ondansetron 4 mg PO Q8H PRN 12/19/18 06/20/19 History pantoprazole 40 mg PO QAM 12/19/18 06/20/19 History polyethylene glycol 3350 [Miralax] 17 g PO BID PRN 12/19/18 06/20/19 History sertraline [Zoloft] 50 mg PO QAM 12/19/18 06/20/19 History torsemide 100 mg PO QPM 12/19/18 06/20/19 History quetiapine 50 mg PO HS 02/05/19 06/20/19 History bupropion HCl 100 mg PO BID #0 tab 02/07/19 06/20/19 Rx aripiprazole 5 mg PO HS 05/20/19 06/20/19 History bisacodyl 10 mg ID DAILY PRN #2 ea 05/20/19 06/20/19 Rx metoclopramide HCl [Reglan] 10 mg PO Q6H #10 tab 05/20/19 06/20/19 Rx trazodone 75 mg PO HS 05/20/19 06/20/19 History linezolid 600 mg PO BID 06/03/19 06/20/19 History levetiracetam 500 mg PO BID 06/20/19 06/20/19 History Patient History Medical History (Updated 06/21/19 @ 04:32 by Markie Sepulveda MD) Anemia due to chronic kidney disease (Chronic) Arteriovenous fistula for hemodialysis in place, primary (Chronic) Bipolar disorder (Chronic) CKD (chronic kidney disease) stage V requiring chronic dialysis Coronary artery disease (Chronic) "2015 - cardiac catheterization showing nonobstructive coronary disease Stress test 06/2017 - possible small area of ischemia in the anterior wall" CVA (cerebral vascular accident) (Chronic) 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 history of CVA in 2018 Residual R sided weakness Depression (Chronic) Diabetic gastroparesis (Chronic) Diastolic heart failure (Chronic) DM type 1 (diabetes mellitus, type 1) (Chronic) ESRD (end stage renal disease) on dialysis GERD (gastroesophageal reflux disease) (Chronic) History of GI bleed (Chronic) Hyperlipidemia (Chronic) Hypertension (Chronic) Seizure (Chronic) Surgical History (Updated 06/21/19 @ 04:28 by Markie Sepulveda MD) Hx of appendectomy (Inactive) Hx of cholecystectomy (Inactive) Hx of tubal ligation (Inactive) Family History Mother Coronary heart disease Hypertension Father Coronary heart disease Other No significant family history Social History Preferred Language: Bruneian Communication Ability: Effective Manager Of Allied Health Services Required: No Beliefs That Will Affect Care: None marital status: Current Living Situation: Spouse current occupational status: unemployed Other Information That Helps Us Care for You: No Feels Safe at Home: Yes Safety Concerns: Feels Safe At This Time Smoking Status: Former smoker Hx Alcohol Use: No Hx Substance Use: No Review of Systems Review of Systems: All systems reviewed & are unremarkable except as noted in HPI & below Physical Exam Physical Exam: General exam: Appears comfortable, no acute distress HEENT: Pupils are equal and reactive to light Neck: No JVD, neck is supple trachea is midline Respiratory system: Clear breath sounds bilaterally. Gastrointestinal: Abdomen is soft, non distended, non tender, bowel sounds are present CVS: Regular rate and rhythm. No murmurs, rubs or gallops Musculoskeletal: No joint or muscle tenderness Extremities: Non tender, no edema, peripheral pulses are present Neuro: Oriented, no tremors, no focal neurological deficits Skin: No rashes Access: right UA AVF with good bruit Results & Data Vital Signs (Past 12 Hours) Vital Signs Temp Pulse Resp BP Pulse Ox 06/21/19 16:09 36.9 C 63 17 153/75 H 98 06/21/19 11:26 36.9 C 65 20 148/67 H 98 06/21/19 06:52 36.8 C 68 18 144/61 H 98 Laboratory Results Laboratory Results - last 24 hr 06/20/19 06/20/19 06/20/19 17:16 17:41 18:32 WBC RBC Hgb Hct MCV MCH MCHC RDW Std Deviation RDW Coeff of Lebron Plt Count MPV Sodium Potassium Chloride Carbon Dioxide Anion Gap BUN Creatinine Est Cr Clr Drug Dosing Est GFR ( Amer) Est GFR (Non-Af Amer) BUN/Creatinine Ratio Glucose POC Glucose 274 H 222 H Estimat Average Glucose Hemoglobin A1c Calcium Total Bilirubin Direct Bilirubin AST ALT Alkaline Phosphatase Total Protein Albumin Lipase Beta-Hydroxybutyric Acd 27.18 H Specimen Hemolysis 06/20/19 06/20/19 06/20/19 19:39 19:59 20:35 WBC RBC Hgb Hct MCV MCH MCHC RDW Std Deviation RDW Coeff of Lebron Plt Count MPV Sodium 139 Potassium 3.4 L D Chloride 103 Carbon Dioxide 30 Anion Gap 6.0 BUN 26 H Creatinine 3.91 H Est Cr Clr Drug Dosing 15.0 Est GFR ( Amer) 14.6 Est GFR (Non-Af Amer) 12.6 BUN/Creatinine Ratio 6.6 L Glucose 144 H POC Glucose 177 H 116 H Estimat Average Glucose Hemoglobin A1c Calcium 8.8 Total Bilirubin Direct Bilirubin AST ALT Alkaline Phosphatase Total Protein Albumin Lipase Beta-Hydroxybutyric Acd Specimen Hemolysis Cancelled 06/20/19 06/20/19 06/20/19 21:01 21:19 22:06 WBC RBC Hgb Hct MCV MCH MCHC RDW Std Deviation RDW Coeff of Lebron Plt Count MPV Sodium Potassium Chloride Carbon Dioxide Anion Gap BUN Creatinine Est Cr Clr Drug Dosing Est GFR ( Amer) Est GFR (Non-Af Amer) BUN/Creatinine Ratio Glucose POC Glucose 102 H 103 H 133 H Estimat Average Glucose Hemoglobin A1c Calcium Total Bilirubin Direct Bilirubin AST ALT Alkaline Phosphatase Total Protein Albumin Lipase Beta-Hydroxybutyric Acd Specimen Hemolysis 06/20/19 06/21/19 06/21/19 23:24 00:11 00:15 WBC RBC Hgb Hct MCV MCH MCHC RDW Std Deviation RDW Coeff of Lebron Plt Count MPV Sodium 138 Potassium 3.3 L Chloride 105 Carbon Dioxide 29 Anion Gap 4.0 BUN 24 H Creatinine 3.88 H Est Cr Clr Drug Dosing 15.1 Est GFR ( Amer) 14.8 Est GFR (Non-Af Amer) 12.7 BUN/Creatinine Ratio 6.3 L Glucose 97 POC Glucose 128 H 110 H Estimat Average Glucose Hemoglobin A1c Calcium 8.1 L Total Bilirubin Direct Bilirubin AST ALT Alkaline Phosphatase Total Protein Albumin Lipase Beta-Hydroxybutyric Acd Specimen Hemolysis 06/21/19 06/21/19 06/21/19 00:15 01:26 01:48 WBC RBC Hgb 10.1 L Hct 29.9 L MCV MCH MCHC RDW Std Deviation RDW Coeff of Lebron Plt Count MPV Sodium Potassium Chloride Carbon Dioxide Anion Gap BUN Creatinine Est Cr Clr Drug Dosing Est GFR ( Amer) Est GFR (Non-Af Amer) BUN/Creatinine Ratio Glucose POC Glucose 82 66 L* Estimat Average Glucose Hemoglobin A1c Calcium Total Bilirubin Direct Bilirubin AST ALT Alkaline Phosphatase Total Protein Albumin Lipase Beta-Hydroxybutyric Acd Specimen Hemolysis 06/21/19 06/21/19 06/21/19 02:17 02:52 04:12 WBC RBC Hgb Hct MCV MCH MCHC RDW Std Deviation RDW Coeff of Lebron Plt Count MPV Sodium 137 Potassium 3.6 Chloride 103 Carbon Dioxide 29 Anion Gap 5.0 BUN 24 H Creatinine 3.84 H Est Cr Clr Drug Dosing 15.4 Est GFR ( Amer) 15.0 Est GFR (Non-Af Amer) 12.9 BUN/Creatinine Ratio 6.3 L Glucose 104 H POC Glucose 78 81 Estimat Average Glucose Hemoglobin A1c Calcium 8.1 L Total Bilirubin 0.5 Direct Bilirubin 0.1 AST 14 L ALT 27 Alkaline Phosphatase 70 Total Protein 5.7 L D Albumin 2.5 L Lipase 78 Beta-Hydroxybutyric Acd Specimen Hemolysis 06/21/19 06/21/19 06/21/19 04:12 04:12 04:17 WBC 4.32 L RBC 3.40 L Hgb 10.3 L Hct 31.1 L MCV 91.5 MCH 30.3 MCHC 33.1 RDW Std Deviation 50.2 H RDW Coeff of Lebron 15.5 H Plt Count 326 MPV 9.9 Sodium Potassium Chloride Carbon Dioxide Anion Gap BUN Creatinine Est Cr Clr Drug Dosing Est GFR ( Amer) Est GFR (Non-Af Amer) BUN/Creatinine Ratio Glucose POC Glucose 108 H Estimat Average Glucose Pending Hemoglobin A1c Pending Calcium Total Bilirubin Direct Bilirubin AST ALT Alkaline Phosphatase Total Protein Albumin Lipase Beta-Hydroxybutyric Acd Specimen Hemolysis 06/21/19 06/21/19 06/21/19 06:03 07:32 11:10 WBC RBC Hgb Hct MCV MCH MCHC RDW Std Deviation RDW Coeff of Lebron Plt Count MPV Sodium Potassium Chloride Carbon Dioxide Anion Gap BUN Creatinine Est Cr Clr Drug Dosing Est GFR ( Amer) Est GFR (Non-Af Amer) BUN/Creatinine Ratio Glucose POC Glucose 185 H 218 H 231 H Estimat Average Glucose Hemoglobin A1c Calcium Total Bilirubin Direct Bilirubin AST ALT Alkaline Phosphatase Total Protein Albumin Lipase Beta-Hydroxybutyric Acd Specimen Hemolysis 06/21/19 16:14 WBC RBC Hgb Hct MCV MCH MCHC RDW Std Deviation RDW Coeff of Lebron Plt Count MPV Sodium Potassium Chloride Carbon Dioxide Anion Gap BUN Creatinine Est Cr Clr Drug Dosing Est GFR ( Amer) Est GFR (Non-Af Amer) BUN/Creatinine Ratio Glucose POC Glucose 186 H Estimat Average Glucose Hemoglobin A1c Calcium Total Bilirubin Direct Bilirubin AST ALT Alkaline Phosphatase Total Protein Albumin Lipase Beta-Hydroxybutyric Acd Specimen Hemolysis (1) Abdominal pain Abdominal location: unspecified location Qualified Code(s): R10.9 - Unspecifi ed abdominal pain
[2019-06-21] MEDS: lamoTRIgine 100 MG TAB PO SCH (20:38)
[2019-06-21] MEDS: levETIRAcetam 500 MG TAB PO SCH (20:38)
[2019-06-21] MEDS: TORSEMIDE 100 MG TAB PO SCH (20:39)
[2019-06-21] MEDS: TRAZODONE HCL 50 MG TAB PO SCH (20:39)
[2019-06-22] MEDS: OXYCODONE HCL IR 5 MG TAB (IMMEDIATE RELEASE) PO PRN ×3 (00:22→14:35)
[2019-06-22] MEDS: INSULIN ASPART 100 UNITS/ML 3 ML PEN SC SCH ×6 (00:23→21:01)
[2019-06-22] MEDS: HYDROmorphone INJ 0.5 MG/0.5 ML SYR IV PRN ×2 (04:28→17:43)
[2019-06-22 07:36] LABS: Hematocrit (blood only) 32.4 % (37-47); Mean Corpuscular Hemoglobin 31.3 pg (25-34); Mean Corpuscular Volume 92.3 fL (80-100); Mean Platelet Volume 9.6 fL (7.4-10.4); Platelet Count 321 K/uL (130-400); RDW Coefficient of Variation 15.5 % (11.5-14.5); RDW Standard Deviation 51.7 fL (36.4-46.3); Red Blood Count 3.51 M/uL (4.2-5.4); White Blood Count 3.15 K/uL (4.8-10.8)
[2019-06-22] MEDS: carvediloL 25 MG TAB PO SCH ×2 (07:40→20:23)
[2019-06-22] MEDS: METOCLOPRAMIDE HCL 5 MG TABLET PO SCH ×4 (07:40→20:23)
[2019-06-22] MEDS: ATORVASTATIN 40 MG TAB PO SCH (07:41)
[2019-06-22] MEDS: PANTOprazole 40 MG TAB PO SCH (07:41)
[2019-06-22] MEDS: BUDESONIDE/FORMOTEROL FUMARATE 160/4.5 60 PUFFS/INHALER INH SCH ×2 (07:41→20:26)
[2019-06-22] MEDS: levETIRAcetam 500 MG TAB PO SCH ×2 (07:42→20:25)
[2019-06-22] MEDS: POLYETHYLENE (MIRALAX) 17 GM PACK PO SCH (07:43)
[2019-06-22 08:04] LABS: Albumin Globulin Ratio 0.8 (0.9-2); Albumin Level 2.7 gm/dl (3.4-5.0); BUN Creatinine Ratio 6.3 (10-20); Bilirubin,Total 0.4 mg/dl (0.2-1); Calcium 8.3 mg/dl (8.5-10.1); Creatinine Clr Calc Pharmacy 15.6 ml/min; Est GFR (African American) 15.3; Est GFR (Non-African American) 13.2; Globulin 3.5 gm/dl (2.5-4.0); Magnesium 2.2 mg/dl (1.8-2.4); Phosphorus 3.3 mg/dl (2.5-4.9); Potassium 4.3 mmol/L (3.5-5.1); Total Protein 6.2 gm/dl (6.4-8.2)
[2019-06-22 08:32] LABS: Basophils # (auto) 0.06 K/uL (0-0.2); Basophils % (auto) 1.9 %; Eosinophils # (auto) 0.26 K/uL (0-0.5); Eosinophils % (auto) 8.3 %; Lymphocytes # (auto) 1.74 K/uL (1.2-3.4); Lymphocytes % (auto) 55.2 %; Monocytes # (auto) 0.34 K/uL (0.11-0.59); Monocytes % (auto) 10.8 %; Neutrophils # (auto) 0.75 K/uL (1.4-6.5); Neutrophils % (auto) 23.8 %; Target Cells 1+
[2019-06-22] MEDS: INSULIN GLARGINE SOLOSTAR 100 UNITS/ML 3 ML PEN SC SCH (08:46)
--- NOTE | 2019-06-22 10:02 | Pharmacy Report ---
Pharmacy Glycemic Short Note 2 - Date of Service June 22, 2019 - Glycemic Short BSG Results (Last 24 hours): 06/21/19 06/21/19 06/21/19 11:10 16:14 20:14 Glucose POC Glucose 231 H 186 H 111 H 06/22/19 06/22/19 06/22/19 00:16 04:21 07:20 Glucose 210 H POC Glucose 138 H 261 H 06/22/19 07:50 Glucose POC Glucose 206 H OUTPATIENT ANTIDIABETIC REGIMEN: * Basaglar 10u AM + Admelog 2u w/ meals ASSESSMENT: * Pt is a very brittle type I diabetic female. BSGs over the previous 24hrs have been reasonable: [phone]/dL. She required 20 units of basal/bolus insulin yesterday 06/21 + insulin infsn. Historically she tends to drop at dinner and HS. Given the brittle nature of her type I diabetes I am ok with BSGs 100 - ~225mg/dL. PLAN FOR INPATIENT GLYCEMIC CONTROL: * Basal insulin * Lantus 10 units in AM * Bolus insulin * NovoLog per scale ACHS or Q6hrs while NPO * Goal Range: Low 120 mg/dL - High 160 mg/dL * Correction Factor: 25 mg/dL/unit * Nutritional / Prandial insulin per carb ratio of 1 unit per 15 grams CHO consumed * We will continue with the overnight accuchecks
--- NOTE | 2019-06-22 13:38 | Hospitalist Progress Note ---
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 Treated by biliary sphincterotomy and balloon sphincteroplasty as outpatient on 06/08/2019 by [facility] gastronenterology) -patient had visited [facility] urology clinic on 06/17/2019 ("presents in referral for evaluation of a history of voiding difficulties, microhematuria and recent UTI with VRE on urine culture treated with linezolid. On review of her chart, she has had numerous urine cultures over the past year, most of which are negative. Her main complaint today is RUQ abdominal pain and constipation. She has a follow-up with GI next week for that. She also does have some burning with urination ongoing for about a week and a sensation of incomplete bladder emptying.") urine culture from 06/17/2019 as outpatient is negative for bacteria. [facility] urology service had considered future outpatient cystoscopy for hematuria as she is known to have kidney stones -presents to hospital on 06/20/2019 with with 3 days of epigastric/right side abdominal pain associate with nausea and vomiting; reported coffee ground emesis to admitting hospitalist -admission urine analysis on 06/20/2019 is without urinary bacteria -generally no acute findings on admission CT abdomen and pelvis 1. No definite bowel wall thickening or obstruction. 2. Moderate stool within the colon and rectum. This is similar to the prior study. 3. The intrauterine device is in good position. 4. Cholecystectomy. 5. Punctate calcifications within the renal sinuses persist. This may represent small stones or vascular calcifications.. 6. Mild bladder wall thickening. Recommend correlation with urinalysis to exclude a cystitis. 7. Trace pericardial fluid. -stable blood counts, normal LFTs; admitting physician started bowel rest, IV fluids, IV pantoprazole, pain medications, and anti-emetics -reports to daytime hospitalist on 06/21/2019 that last bowel movement from Saturday06/15/2019 but abdominal pain is more of right lower quadrant. additional bowel regimen ordered.gastroenterology service determines that abdominal pain most likely from gastroparesis (patient has diabetes) and constipation and recommends reglan 5 mg TID with meals -06/22/2019: Patient reports able to make bowel movement yesterday and diet is advanced from clear liquid to full liquid. Patient reports she still has right lower quadrant pain and there is still tenderness to palpation. continye to monitor patient for now Neutropenia -Ansolute Neutrophil Counts (ANC) is noted to be 750 today. patient has no signs of infection. no fever. will monitor on neutropenic precautions (2) Anemia due to chronic kidney disease: -admission Hemoglobin 12.2 which may be hemoconcentrated -Hgb stable around 10 (3) DM type 1 (diabetes mellitus, type 1): -Diabetes mellitus type 1 complicated by coronary artery disease, retinopathy, nephropathy, neuropathy. -patient is considered to be legally blind as per outpatient urology notes -admission glucose 600 without increased anion gap. -as of 06/22/2019, insulin requirements being managed by pharmacy glycemic control. 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 (4) CKD (chronic kidney disease) stage V requiring chronic dialysis: -End-stage renal disease secondary to diabetic nephropathy. -On maintenance hemodialysis 3 days a week. -Nephrology consulted for management. - patient reports next dialysis is Saturday (5) Diastolic heart failure: -Chronic left ventricular diastolic heart failure. -continue torsemide 100 mg qPM -hemodialysis patient (6) Coronary artery disease: -No anginal symptoms. -No acute EKG changes -Continue carvedilol and atorvastatin -resume aspirin (7) Hypertension: -Continue carvedilol/torsemide (8) Seizure: (last seizure reported as 1 month ago) Depression -these home medications of sertraline, quetiapine, aripipraozle, bupropion are held for now while pm Reglan to prevent potential drug interactions -trazodone -continue levetriacetam and lamotrigine (9) DVT prophylaxis: SCDs; encourage Ambulation (10) Discharge planning issues: Primary care follow-up with Dr. Santo. Nephrology follow-up with Dr. Monroe. Subjective Patient reports able to make bowel movement yesterday and diet is advanced from clear liquid to full liquid. Patient reports she still has right lower quadrant pain and there is still tenderness to palpation. no vomiting. breathing comfortably on room air. no shortness of breath. no chest pain. no dizziness. no lightheadedness. no fever Review of Systems Review of Systems: All systems reviewed & are unremarkable except as noted in HPI & below Physical Exam Constitutional: cooperative Eyes: PERRL, conjunctivae normal, anicteric sclerae EOM intact bilaterally ENMT: external ear and nose normal, oropharynx normal Neck: normal visual inspection Respiratory: normal respiratory effort some crackles on lung auscultation bilaterally, patient breathing on room air Cardiovascular: Rate/Rhythm: regular rhythm Gastrointestinal (Abdomen): Inspection/Auscultation: abdomen normal to inspection right lower quadrant tenderness to palpation Musculoskeletal: Head/Neck/Chest: normocephalic and head atraumatic Neurologic: PERRL, EOMI, accommodation nl, no face palsy, no dysarthria Psychiatric: Orientation: alert and cooperative Results & Data Vital Signs (Past 12 Hours) Vital Signs Temp Pulse Resp BP Pulse Ox 06/22/19 07:38 36.9 C 65 18 136/62 98 (1) Anemia due to chronic kidney disease Chronic kidney disease stage: on chronic dialysis Qualified Code(s): N18.6 - End stage renal disease; D63.1 - Anemia in chronic kidney disease; Z99.2 - Dependence on renal dialysis (2) Abdominal pain Abdominal location: unspecified location Qualified Code(s): R10.9 - Unspecified abdominal pain
--- NOTE | 2019-06-22 17:50 | Nephrology Progress Note ---
Date of Service June 22, 2019 Assessment & Plan (1) End-stage renal disease (ESRD): Patient with ESRD on HD TTS. Her last HD was . She missed Saturday due to vomiting and presented to the ER. Her electrolytes are stable and no signs of volume overload. again, like yesterday, no need for HD today. -Next HD tomorrow per her schedule unless clinical condition changes. -anemia and chemistries and volume status all acceptable (2) Abdominal pain: Due to gastroparesis and gall bladder disease. She is getting PPIs. Gastroenterology recommendations appreciated. Subjective seen on rounds this am 0945 approx; ongoing R sided abdominal pain near umbilicus; no n/v; endorses poor po; no sob, no FINLEY, no edema Review of Systems Review of Systems: All systems reviewed & are unremarkable except as noted in HPI & below Physical Exam Constitutional: well developed, well nourished and comfortable; no acute distress Eyes: EOM intact bilaterally ENMT: Ears: no external ear abnormality Nose: no external nose abnormality Mouth: + dry oral mucous membranes Neck: no nuchal rigidity Respiratory: normal respiratory effort Auscultation: lungs clear to auscultation bilaterally and + diminished lung sounds Cardiovascular: RRR, no murmur, no edema Extremities: + AV fistula (+ t/b RUE) Gastrointestinal (Abdomen): Inspection/Auscultation: normal bowel sounds Percussion/Palpation: + abdomen tender (R abd) and abdomen soft Musculoskeletal: Extremities: strength 5/5 throughout Skin: no rashes, warm and dry Neurologic: teran, fluent speech, no tremor Psychiatric: Orientation: alert and oriented x 3 Results & Data Vital Signs (Past 12 Hours) Vital Signs Temp Pulse Resp BP Pulse Ox 06/22/19 15:12 36.8 C 64 20 118/72 97 06/22/19 07:38 36.9 C 65 18 136/62 98 (1) Abdominal pain Abdominal location: unspecified location Qualified Code(s): R10.9 - Unspecified abdominal pain
[2019-06-22] MEDS: TORSEMIDE 100 MG TAB PO SCH (20:23)
[2019-06-22] MEDS: TRAZODONE HCL 50 MG TAB PO SCH (20:24)
[2019-06-22] MEDS: lamoTRIgine 100 MG TAB PO SCH (20:25)
[2019-06-23] MEDS: INSULIN ASPART 100 UNITS/ML 3 ML PEN SC SCH ×6 (00:30→20:21)
[2019-06-23] MEDS: HYDROmorphone INJ 0.5 MG/0.5 ML SYR IV PRN ×3 (00:32→15:11)
[2019-06-23 03:28] LABS: EAG mmol/L 13.5 (calc); HA1C 10.1 (<5.7)
[2019-06-23] MEDS: OXYCODONE HCL IR 5 MG TAB (IMMEDIATE RELEASE) PO PRN ×3 (04:27→20:24)
[2019-06-23 06:49] LABS: BUN Creatinine Ratio 5.9 (10-20); Calcium 8.2 mg/dl (8.5-10.1); Est GFR (African American) 14.6; Est GFR (Non-African American) 12.6; Potassium 5.1 mmol/L (3.5-5.1)
[2019-06-23] MEDS ORDERED: SODIUM CHLORIDE 0.9% 1000ML 1,000 ML IV PRN (07:53)
[2019-06-23] MEDS ORDERED: HEPARIN SOD (PORCINE) 1000 UNIT/ML 10 ML VIAL IV ONE (08:30)
[2019-06-23] MEDS: INSULIN GLARGINE SOLOSTAR 100 UNITS/ML 3 ML PEN SC SCH (08:59)
[2019-06-23] MEDS: levETIRAcetam 500 MG TAB PO SCH ×2 (09:00→20:20)
[2019-06-23] MEDS: PANTOprazole 40 MG TAB PO SCH (09:00)
[2019-06-23] MEDS: ATORVASTATIN 40 MG TAB PO SCH (09:00)
[2019-06-23] MEDS: METOCLOPRAMIDE HCL 5 MG TABLET PO SCH ×4 (09:00→20:20)
[2019-06-23] MEDS: BUDESONIDE/FORMOTEROL FUMARATE 160/4.5 60 PUFFS/INHALER INH SCH ×2 (09:01→20:20)
[2019-06-23] MEDS: HEPARIN SOD (PORCINE) 1000 UNIT/ML 10 ML VIAL IV SCH ×3 (11:00→12:50)
--- NOTE | 2019-06-23 11:42 | Pharmacy Report ---
Pharmacy Glycemic Short Note 2 - Date of Service June 23, 2019 - Glycemic Short BSG Results (Last 24 hours): 06/22/19 06/22/19 06/22/19 11:29 17:04 19:56 Glucose POC Glucose 187 H 103 H 96 06/23/19 06/23/19 06/23/19 00:25 04:09 06:05 Glucose 183 H POC Glucose 96 229 H 06/23/19 07:33 Glucose POC Glucose 148 H OUTPATIENT ANTIDIABETIC REGIMEN: * Basaglar 10u AM + Admelog 2u w/ meals ASSESSMENT: 06/23 * Laura received 10 units of basal and 14 units of bolus insulin yesterday * For the past 2 nights, she has had a normal BSG at midnight and then in the 200s at 0400 * Nurse reports patient had prune juice last night but I'm not sure if she had anything the night before * This would not be sherif phenomenon because that typically occurs later in the morning. Question if she's having hypoglycemia at 0200 and then we're seeing the rebound effects from that? 06/22 * Pt is a very brittle type I diabetic female. BSGs over the previous 24hrs have been reasonable: [phone]/dL. She required 20 units of basal/bolus insulin yesterday 06/21 + insulin infsn. Historically she tends to drop at dinner and HS. Given the brittle nature of her type I diabetes I am ok with BSGs 100 - ~225mg/dL. PLAN FOR INPATIENT GLYCEMIC CONTROL: * Basal insulin - no change * Lantus 10 units in AM * Bolus insulin - no change to parameters * NovoLog per scale ACHS or Q6hrs while NPO. Change overnight checks to 0200 to evaluate for hypoglycemia. * Goal Range: Low 120 mg/dL - High 160 mg/dL * Correction Factor: 25 mg/dL/unit * Nutritional / Prandial insulin per carb ratio of 1 unit per 15 grams CHO consumed
--- NOTE | 2019-06-23 11:58 | Hospitalist Progress Note ---
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 Treated by biliary sphincterotomy and balloon sphincteroplasty as outpatient on 06/08/2019 by [facility] gastronenterology) -patient had visited [facility] urology clinic on 06/17/2019 ("presents in referral for evaluation of a history of voiding difficulties, microhematuria and recent UTI with VRE on urine culture treated with linezolid. On review of her chart, she has had numerous urine cultures over the past year, most of which are negative. Her main complaint today is RUQ abdominal pain and constipation. She has a follow-up with GI next week for that. She also does have some burning with urination ongoing for about a week and a sensation of incomplete bladder emptying.") urine culture from 06/17/2019 as outpatient is negative for bacteria. [facility] urology service had considered future outpatient cystoscopy for hematuria as she is known to have kidney stones -presents to hospital on 06/20/2019 with with 3 days of epigastric/right side abdominal pain associate with nausea and vomiting; reported coffee ground emesis to admitting hospitalist -admission urine analysis on 06/20/2019 is without urinary bacteria -generally no acute findings on admission CT abdomen and pelvis 1. No definite bowel wall thickening or obstruction. 2. Moderate stool within the colon and rectum. This is similar to the prior study. 3. The intrauterine device is in good position. 4. Cholecystectomy. 5. Punctate calcifications within the renal sinuses persist. This may represent small stones or vascular calcifications.. 6. Mild bladder wall thickening. Recommend correlation with urinalysis to exclude a cystitis. 7. Trace pericardial fluid. -stable blood counts, normal LFTs; admitting physician started bowel rest, IV fluids, IV pantoprazole, pain medications, and anti-emetics -reports to daytime hospitalist on 06/21/2019 that last bowel movement from Saturday06/15/2019 but abdominal pain is more of right lower quadrant. additional bowel regimen ordered.gastroenterology service determines that abdominal pain most likely from gastroparesis (patient has diabetes) and constipation and recommends reglan 5 mg TID with meals -06/22/2019: Patient reports able to make bowel movement yesterday and diet is advanced from clear liquid to full liquid. Patient reports she still has right lower quadrant pain and there is still tenderness to palpation. -06/23/2019: patient seen and examined during dialysis session. patient reports she has been making bowel movements. however she continues to have abdominal pain of right lower quadrant. Patient continues to have tenderness on palpation of right side of the abdomen. Medical doctor noted admission CT abdomen findings of cholecystectomy but given continued symptoms, have ordered abdominal ultrasound to investigate further. Neutropenia -Ansolute Neutrophil Counts (ANC) is noted to be 750 on 06/22/2019. patient has no signs of infection. no fever. monitor on neutropenic precautions. follow CBC (2) Anemia due to chronic kidney disease: -admission Hemoglobin 12.2 which may be hemoconcentrated -Hgb stable around 10 (3) DM type 1 (diabetes mellitus, type 1): -Diabetes mellitus type 1 complicated by coronary artery disease, retinopathy, nephropathy, neuropathy. -patient is considered to be legally blind as per outpatient urology notes -admission glucose 600 without increased anion gap. -as of 06/22/2019, insulin requirements being managed by pharmacy glycemic control. 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 (4) CKD (chronic kidney disease) stage V requiring chronic dialysis: -End-stage renal disease secondary to diabetic nephropathy. -On maintenance hemodialysis 3 days a week. -inpatient dialysis 06/23/2019 (5) Diastolic heart failure: -Chronic left ventricular diastolic heart failure. -continue torsemide 100 mg qPM -hemodialysis patient (6) Coronary artery disease: -No anginal symptoms. -No acute EKG changes -Continue carvedilol and atorvastatin -resume aspirin (7) Hypertension: -Continue carvedilol/torsemide (8) Seizure: (last seizure reported as 1 month ago) Depression -these home medications of sertraline, quetiapine, aripipraozle, bupropion are held for now while pm Reglan to prevent potential drug interactions -trazodone -continue levetriacetam and lamotrigine (9) DVT prophylaxis: SCDs; encourage Ambulation (10) Discharge planning issues: Primary care follow-up with Dr. Santo. Nephrology follow-up with Dr. Monroe. Subjective patient seen and examined during dialysis session. patient reports she has been making bowel movements. however she continues to have abdominal pain of right lower quadrant. Patient continues to have tenderness on palpation of right side of the abdomen. Medical doctor noted admission CT abdomen findings of cholecystectomy but given continued symptoms, have ordered abdominal ultrasound to investigate further. no vomiting. no shortness of breath. no chest pain. no fevers. no other symptoms Review of Systems Review of Systems: All systems reviewed & are unremarkable except as noted in HPI & below Physical Exam Constitutional: cooperative Eyes: PERRL, conjunctivae normal, anicteric sclerae EOM intact bilaterally ENMT: external ear and nose normal, oropharynx normal Neck: normal visual inspection Respiratory: normal respiratory effort, lungs clear to auscultation normal respiratory effort Cardiovascular: Rate/Rhythm: regular rhythm Gastrointestinal (Abdomen): Inspection/Auscultation: abdomen normal to inspection tenderness of right lower quadrant on palpation Musculoskeletal: Head/Neck/Chest: normocephalic and head atraumatic Neurologic: PERRL, EOMI, accommodation nl, no face palsy, no dysarthria Psychiatric: Orientation: alert and cooperative Results & Data Vital Signs (Past 12 Hours) Vital Signs Temp Pulse Pulse Pulse Resp BP BP 06/23/19 11:40 64 135/63 06/23/19 11:20 63 132/63 06/23/19 11:00 62 144/70 H 06/23/19 10:40 62 141/75 H 06/23/19 10:20 63 155/74 H 06/23/19 10:00 66 151/76 H 06/23/19 09:46 36.7 C 69 06/23/19 07:34 36.7 C 63 18 108/67 Pulse Ox 06/23/19 11:40 06/23/19 11:20 06/23/19 11:00 06/23/19 10:40 06/23/19 10:20 06/23/19 10:00 06/23/19 09:46 06/23/19 07:34 100 (1) Abdominal pain Abdominal location: unspecified location Qualified Code(s): R10.9 - Unspecified abdominal pain (2) Anemia due to chronic kidney disease Chronic kidney disease stage: on chronic dialysis Qualified Code(s): N18.6 - End stage renal disease; D63.1 - Anemia in chronic kidney disease; Z99.2 - Dependence on renal dialysis
[2019-06-23 13:47] LABS: Hemoglobin 11.5 g/dL (12.0-16.0); Mean Corpuscular Hemoglobin 30.4 pg (25-34); Mean Corpuscular Hgb Conc 33.8 g/dL (32-36); Mean Corpuscular Volume 89.9 fL (80-100); Mean Platelet Volume 9.9 fL (7.4-10.4); Platelet Count 290 K/uL (130-400); RDW Coefficient of Variation 15.4 % (11.5-14.5); RDW Standard Deviation 50.5 fL (36.4-46.3); Red Blood Count 3.78 M/uL (4.2-5.4); White Blood Count 2.96 K/uL (4.8-10.8)
[2019-06-23 14:04] LABS: Basophils # (auto) 0.02 K/uL (0-0.2); Basophils % (auto) 0.7 %; Eosinophils # (auto) 0.18 K/uL (0-0.5); Eosinophils % (auto) 6.1 %; Immature Granulocytes # (auto) 0.01 K/uL (0.00-0.02); Immature Granulocytes % (auto) 0.3 %; Lymphocytes # (auto) 1.54 K/uL (1.2-3.4); Monocytes # (auto) 0.23 K/uL (0.11-0.59); Monocytes % (auto) 7.8 %; Neutrophils # (auto) 0.98 K/uL (1.4-6.5); Neutrophils % (auto) 33.1 %
[2019-06-23 14:16] LABS: BUN Creatinine Ratio 4.4 (10-20); Calcium 8.2 mg/dl (8.5-10.1); Creatinine Clr Calc Pharmacy 44.4 ml/min; Est GFR (African American) 54.9; Est GFR (Non-African American) 47.4; Potassium 3.1 mmol/L (3.5-5.1)
[2019-06-23 14:18] LABS: Albumin Globulin Ratio 0.8 (0.9-2); Bilirubin,Total 0.5 mg/dl (0.2-1); Globulin 3.6 gm/dl (2.5-4.0); Total Protein 6.6 gm/dl (6.4-8.2)
[2019-06-23] MEDS: carvediloL 25 MG TAB PO SCH ×2 (14:22→20:20)
[2019-06-23] MEDS: POLYETHYLENE (MIRALAX) 17 GM PACK PO SCH (14:38)
--- NOTE | 2019-06-23 14:38 | Ultrasound Report ---
US abdomen limited CLINICAL HISTORY: 48 years-old Female presenting with lack of gallbladder,RUQ/RLQ pain despite BMs. TECHNIQUE: Real-time grayscale and limited color Doppler ultrasound imaging of the abdomen limited to the right upper quadrant was performed. COMPARISON: Ultrasound from 09/09/[address] from 06/20/2019. FINDINGS: Pancreas: Parenchymal atrophy. Liver: Hyperechogenic parenchyma with heterogeneous echotexture, likely indicating fibrosis or steato sis. The liver measures 15.5 cm in maximal sagittal dimension. No sonographic evidence of hepatic mas s. Main portal vein patent with normal directional flow. Biliary: No intrahepatic biliary ductal dilatation. Common bile duct measures up to 6 mm in diameter. Gallbladder: Surgically absent. Right kidney: Mildly echogenic parenchyma. No hydronephrosis. Kidney measures 9.2 cm in maximal sagit marino dimension. Ascites: None. Other: None. IMPRESSION: 1. Heterogeneity of liver parenchyma could indicate underlying fibrosis or steatosis. 2. Status post cholecystectomy. No biliary ductal dilatation. 3. Mildly echogenic renal parenchyma could suggest medical renal disease. No hydronephrosis. ACT 112: Negative or not required by law. Electronically signed by: Trey Jones M.D. 06/23/2019 2:37 PM
--- NOTE | 2019-06-23 18:42 | Nephrology Progress Note ---
Date of Service June 23, 2019 Assessment & Plan (1) End-stage renal disease (ESRD): Patient with ESRD on HD TTS. Her last HD was . She missed Saturday due to vomiting and presented to the ER. Her electrolytes are stable and no signs of volume overload. again, like yesterday, no need for HD today. -Next HD tomorrow per her schedule unless clinical condition changes. -anemia and chemistries and volume status all acceptable>> chem panel drawn ON HD and will artificially depress K/creatinine/affect other chemistries -- disregard 1330 bmp from today; follow level in am (2) Abdominal pain: Due to gastroparesis and gall bladder disease. She is getting PPIs. Gastroenterology recommendations on chart; no intervention planned. s/p 06/08 spincterotomy/sphincterplasty for papillary stenosis Subjective still w/ abd pain; tolerating gentle po; uneventful hd today w/ 1L uf; no edema, no sob; still some N Review of Systems Review of Systems: All systems reviewed & are unremarkable except as noted in HPI & below Physical Exam Constitutional: well developed, well nourished and comfortable; no acute distress (sitting on side of bed on ra eating) Eyes: EOM intact bilaterally ENMT: Ears: no external ear abnormality Nose: no external nose abnormality Mouth: + dry oral mucous membranes Neck: no nuchal rigidity Respiratory: normal respiratory effort Auscultation: lungs clear to auscultation bilaterally and + diminished lung sounds Cardiovascular: RRR, no murmur, no edema Extremities: + AV fistula (+ t/b RUE) Gastrointestinal (Abdomen): Inspection/Auscultation: normal bowel sounds Percussion/Palpation: + abdomen tender (R abd) and abdomen soft Musculoskeletal: Extremities: strength 5/5 throughout Skin: no rashes, warm and dry Neurologic: teran, fluent though delayed speech, no tremor Psychiatric: Orientation: alert and oriented x 3 Results & Data Vital Signs (Past 12 Hours) Vital Signs Temp Pulse Pulse Pulse Resp BP BP 06/23/19 15:25 36.5 C 75 18 119/62 06/23/19 13:45 36.7 C 66 140/77 06/23/19 13:00 66 138/70 06/23/19 12:40 66 147/73 H 06/23/19 12:20 64 150/70 H 06/23/19 12:00 66 144/76 H 06/23/19 11:40 64 135/63 06/23/19 11:20 63 132/63 06/23/19 11:00 62 144/70 H 06/23/19 10:40 62 141/75 H 06/23/19 10:20 63 155/74 H 06/23/19 10:00 66 151/76 H 06/23/19 09:46 36.7 C 69 06/23/19 07:34 36.7 C 63 18 108/67 Pulse Ox 06/23/19 15:25 99 06/23/19 13:45 06/23/19 13:00 06/23/19 12:40 06/23/19 12:20 06/23/19 12:00 06/23/19 11:40 06/23/19 11:20 06/23/19 11:00 06/23/19 10:40 06/23/19 10:20 06/23/19 10:00 06/23/19 09:46 06/23/19 07:34 100 Laboratory Results 06/23/19 13:36 06/23/19 13:36 (1) Abdominal pain Abdominal location: unspecified location Qualified Code(s): R10.9 - Unspecified abdominal pain
[2019-06-23] MEDS: lamoTRIgine 100 MG TAB PO SCH (20:20)
[2019-06-23] MEDS: TORSEMIDE 100 MG TAB PO SCH (20:20)
[2019-06-23] MEDS: TRAZODONE HCL 50 MG TAB PO SCH (20:20)
[2019-06-24] MEDS ORDERED: INSULIN ASPART 100 UNITS/ML 3 ML PEN SC ONE (02:00)
[2019-06-24] MEDS: HYDROmorphone INJ 0.5 MG/0.5 ML SYR IV PRN ×2 (02:10→08:07)
[2019-06-24] MEDS: METOCLOPRAMIDE HCL 5 MG TABLET PO SCH ×4 (08:05→20:35)
[2019-06-24] MEDS: BUDESONIDE/FORMOTEROL FUMARATE 160/4.5 60 PUFFS/INHALER INH SCH ×2 (08:06→22:14)
[2019-06-24] MEDS: PANTOprazole 40 MG TAB PO SCH (08:06)
[2019-06-24] MEDS: ATORVASTATIN 40 MG TAB PO SCH (08:06)
[2019-06-24] MEDS: carvediloL 25 MG TAB PO SCH ×2 (08:06→20:35)
[2019-06-24] MEDS: levETIRAcetam 500 MG TAB PO SCH ×2 (08:06→20:35)
[2019-06-24] MEDS: INSULIN ASPART 100 UNITS/ML 3 ML PEN SC SCH ×4 (08:39→20:36)
[2019-06-24] MEDS: POLYETHYLENE (MIRALAX) 17 GM PACK PO SCH (08:42)
[2019-06-24] MEDS ORDERED: POTASSIUM CHLORIDE 20 MEQ TABCR PO ONE (08:49)
[2019-06-24 10:12] LABS: Basophils # (auto) 0.03 K/uL (0-0.2); Eosinophils # (auto) 0.12 K/uL (0-0.5); Hematocrit (blood only) 35.9 % (37-47); Hemoglobin 11.8 g/dL (12.0-16.0); Immature Granulocytes # (auto) 0.01 K/uL (0.00-0.02); Immature Granulocytes % (auto) 0.3 %; Lymphocytes # (auto) 1.21 K/uL (1.2-3.4); Lymphocytes % (auto) 40.2 %; Mean Corpuscular Hemoglobin 30.3 pg (25-34); Mean Corpuscular Hgb Conc 32.9 g/dL (32-36); Mean Corpuscular Volume 92.3 fL (80-100); Monocytes # (auto) 0.31 K/uL (0.11-0.59); Monocytes % (auto) 10.3 %; Neutrophils # (auto) 1.33 K/uL (1.4-6.5); Neutrophils % (auto) 44.2 %; Platelet Count 296 K/uL (130-400); RDW Coefficient of Variation 15.3 % (11.5-14.5); RDW Standard Deviation 50.5 fL (36.4-46.3); Red Blood Count 3.89 M/uL (4.2-5.4); White Blood Count 3.01 K/uL (4.8-10.8)
[2019-06-24 10:29] LABS: BUN Creatinine Ratio 3.4 (10-20); Calcium 8.4 mg/dl (8.5-10.1); Creatinine Clr Calc Pharmacy 19.6 ml/min; Est GFR (African American) 20.5; Est GFR (Non-African American) 17.7; Potassium 3.7 mmol/L (3.5-5.1)
--- NOTE | 2019-06-24 11:25 | Pharmacy Report ---
Pharmacy Glycemic Short Note 2 - Date of Service June 24, 2019 - Glycemic Short BSG Results (Last 24 hours): 06/23/19 06/23/19 06/23/19 13:36 14:34 16:18 Glucose 129 H POC Glucose 119 H 159 H 06/23/19 06/24/19 06/24/19 19:44 02:05 07:44 Glucose POC Glucose 197 H 225 H 182 H 06/24/19 09:50 Glucose 242 H POC Glucose OUTPATIENT ANTIDIABETIC REGIMEN: * Basaglar 10u AM + Admelog 2-3u w/ meals ASSESSMENT: 06/24 * Laura received 10 units of basal and 9 units of bolus insulin yesterday * BSG check at 0200 shows hyperglycemia rather than hypoglycemia * Spoke with patient. She reports having prune juice again last night. Significant other, Harley, was on the phone with her when I walked in so she had me speak with him. He reports severe lows overnight at home (although I'm not sure if this is still an issue since basal dose has been reduced). She usually has a bedtime snack but patient reports it's not large, usually small amount of cereal. * On previous admissions where we followed her, she had multiple severe hypoglycemia events. This admission has been much improved, without hypoglycemia. * Spoke w/ dietary and patient. Will plan for HS snack of crackers w/ PB to prevent overnight hypoglycemia but also prevent hyperglycemia. 06/23 * Laura received 10 units of basal and 14 units of bolus insulin yesterday * For the past 2 nights, she has had a normal BSG at midnight and then in the 200s at 0400 * Nurse reports patient had prune juice last night but I'm not sure if she had anything the night before * This would not be sherif phenomenon because that typically occurs later in the morning. Question if she's having hypoglycemia at 0200 and then we're seeing the rebound effects from that? 06/22 * Pt is a very brittle type I diabetic female. BSGs over the previous 24hrs have been reasonable: [phone]/dL. She required 20 units of basal/bolus insulin yesterday 06/21 + insulin infsn. Historically she tends to drop at dinner and HS. Given the brittle nature of her type I diabetes I am ok with BSGs 100 - ~225mg/dL. PLAN FOR INPATIENT GLYCEMIC CONTROL: * Basal insulin - no change - work towards qHS dosing if overnight hyperglycemia continues to be an issue * Lantus 10 units today at lunch * Bolus insulin - no change to parameters * NovoLog per scale ACHS or Q6hrs while NPO + 0200 check * Goal Range: Low 120 mg/dL - High 160 mg/dL * Correction Factor: 25 mg/dL/unit * Nutritional / Prandial insulin per carb ratio of 1 unit per 15 grams CHO consumed Discharge Recommendations: * Patient's A1c result is likely somewhat unreliable in ESRD patients d/t interactions between the A1c analyzing technique and high levels of urea in ESRD, reduced RBC life span, iron deficiency anemia, and EPO administration. HbA1c > 7.5% in ESRD patient may overestimate the extent of hyperglycemia in ESRD patients. * Patient without hypoglycemia on Lantus 10 units daily. Recommend to resume outpatient regimen on discharge, and stress bedtime snack that includes some protein to keep BSGs stable throughout the night.
[2019-06-24] MEDS ORDERED: INSULIN GLARGINE SOLOSTAR 100 UNITS/ML 3 ML PEN SC SCH (11:30)
[2019-06-24] MEDS ORDERED: POLYETHYLENE (MIRALAX) 17 GM PACK PO ONE (14:18)
[2019-06-24] MEDS ORDERED: ACETAMINOPHEN 325 MG TAB PO PRN (14:20)
--- NOTE | 2019-06-24 14:22 | Hospitalist Progress Note ---
Date of Service June 24, 2019 Assessment & Plan (1) Abdominal pain: chronic, recently underwent ERCP with intervention and was treated for a UTI, however, abdominal pain remains. She also has now had two BMs since admission, but pain is no better. Current admission with normal CT, normal LFTs, UA negative for infection, normal lipase. She is tolerating PO. Will need to continue workup as outpatient at this time. Cont supportive care with stool softeners/laxatives as needed. Diabetic gastroparesis may be contributing here. Encouraged ambulation. DC'd narcotics. Cont reglan for now. (2) Neutropenia: resolved, uncertain etiology. Recent URI so likely related to a virus. As it has improved will monitor for improvement in clinical symptoms. No further workup at this time. (3) Constipation: chronic, cont stool softeners and laxatives PRN. Cont to manage diet including things that are helpful for her. Encouraged ambulation. (4) Diabetic gastroparesis associated with type 1 diabetes mellitus: Reglan started this admission, however, if not helpful, will not continue at discharge. (5) Cough: 2/2 URI. Supportive care. (6) End-stage renal disease (ESRD): cont inpatient HD while admitted. (7) Thrush: Nystatin x 10 days (8) DVT prophylaxis: Heparin/SCDs/ambulation Full Code Dispo-to home when medically stable Arpita Ramos DO [facility] Hospitalist Subjective 48 yo F with Type I DM with significant complications presents with abdominal pain and constipation. She reported 5 days of constipation prior to arrival, which is a chronic issue for her. She reports taking Linzess and multiple stool softeners and laxatives at home on a regular basis. She is frequently hospitalized at [facility], last 05/15- for chronic abdominal pain and a UTI. She was given amoxicillin and cipro at discharge. She was then seen in the [facility] ER on 05/25 for hypoglycemia and was treated and sent home same day. She then underwe nt an ERCP on 06/08 for presumed pain 2/2 biliary origin. She had a biliary sphincterotomy with balloon sphincteroplasty performed and was discharged on 06/09. She was then seen in the [facility] ER on 06/12 for recurrent abdominal pain and constipation. She was sent home same day after a CT scan was negative. Today she reports having a cough that is dry for the last two weeks, runny nose x 2 weeks and a sharp lower abdominal pain. The pain is constant and no exacerbating or alleviating factors can be seen. She has had two BMs since admission but reports this hasn't improved her abdominal pain. She was put on Reglan, but doesn't know what this is or if it is helping. Review of Systems Review of Systems: All systems reviewed & are unremarkable except as noted in HPI & below Physical Exam Physical Exam: CONSTITUTIONAL: WNWD, vitals as above, generally well- appearing EYES: normal conjunctivae, no scleral icterus ENT: MMM, whitish umesh spots on tongue. NECK: trachea midline, no lymphadenopathy RESPIRATORY: clear to auscultation bilaterally, no crackles, rales or wheezes, normal respiratory effort CARDIOVASCULAR: regular rate and rhythm, S1 and 2 heard without murmurs, gallops or rubs, no JVD, no peripheral edema GASTROINTESTINAL: normal bowel sounds, soft, nontender, nondistended, no guarding. MUSCULOSKELETAL: strength 5/5 throughout, head is normocephalic and atraumatic SKIN: warm and dry NEUROLOGIC: CN 2-12 grossly intact, normal cognition. PSYCHIATRIC: alert cooperative and oriented to person, place and time. Results & Data Vital Signs (Past 12 Hours) Vital Signs Temp Pulse Pulse Resp BP Pulse Ox 06/24/19 11:28 36.8 C 74 20 133/78 100 06/24/19 07:06 36.8 C 70 18 142/62 H 100 06/24/19 03:15 37.0 C 68 19 123/67 98 Laboratory Results Short CBC 06/24/19 Range/Units 09:50 WBC 3.01 L (4.8-10.8) K/uL Hgb 11.8 L (12.0-16.0) g/dL Hct 35.9 L (37-47) % Plt Count 296 (130-400) K/uL BMP 06/24/19 09:50 Sodium 133 L Potassium 3.7 D Chloride 97 L Carbon Dioxide 29 BUN 10 Creatinine 2.96 H D Glucose 242 H Calcium 8.4 L Medications Administered Current Inpatient Medications Albuterol (Ventolin Hfa) 2 puffs INH Q4 PRN PRN Reason: Wheezing Stop: 07/20/19 14:54 Aripiprazole (Abilify) 5 mg PO HS SARAH Stop: 07/20/19 20:59 Last Admin: 06/20/19 19:53 Dose: 5 mg Documented by: Atorvastatin Calcium (Lipitor) 80 mg PO QAM [facility] Stop: 07/21/19 11:14 Last Admin: 06/24/19 08:06 Dose: 80 mg Documented by: Budesonide/Formoterol Fumarate (Symbicort 160mcg/4.5mcg) 2 puffs INH BID [facility] Stop: 07/21/19 08:59 Last Admin: 06/24/19 08:06 Dose: 2 puffs Documented by: Bupropion HCl (Wellbutrin) 100 mg PO BID [facility] Stop: 07/20/19 20:59 Last Admin: 06/21/19 20:39 Dose: 100 mg Documented by: Carvedilol (Coreg) 25 mg PO BID [facility] Stop: 07/20/19 20:59 Last Admin: 06/24/19 08:06 Dose: 25 mg Documented by: Dextrose (Dextrose 50%) 25 - 50 ml IV UD PRN; Protocol PRN Reason: Hypoglycemia Protocol Stop: 07/21/19 02:59 Glucagon (Glucagen) 1 mg SQ UD PRN; Protocol PRN Reason: Hypoglycemia Protocol Stop: 07/21/19 02:59 Glucose (Glucose 40%) 15 - 30 gm PO UD PRN; Protocol PRN Reason: Hypoglycemia Protocol Stop: 07/21/19 02:59 Glucose (Dex4 Glucose) 4 - 8 tabs PO UD PRN; Protocol PRN Reason: Hypoglycemia Protocol Stop: 07/21/19 02:59 Insulin Aspart (Novolog Flexpen) 0 units SC ACHS [facility]; Protocol Stop: 07/21/19 11:29 Last Admin: 06/24/19 12:33 Dose: 5 units Documented by: Insulin Aspart (Novolog Flexpen) 0 units SC 0200 ONE; Protocol Stop: 06/25/19 02:01 Last Admin: 06/24/19 12:29 Dose: 5 units Documented by: Insulin Glargine (Lantus Solostar Pen) 10 units SC QDL [facility]; Protocol Stop: 07/24/19 11:29 Last Admin: 06/24/19 12:29 Dose: 10 units Documented by: Lamotrigine (Lamictal) 100 mg PO QPM [facility] Stop: 07/21/19 20:59 Last Admin: 06/23/19 20:20 Dose: 100 mg Documented by: Levetiracetam (Keppra) 500 mg PO BID [facility] Stop: 07/21/19 20:59 Last Admin: 06/24/19 08:06 Dose: 500 mg Documented by: Metoclopramide HCl (Reglan) 5 mg PO ACHS [facility] Stop: 07/21/19 16:29 Last Admin: 06/24/19 12:34 Dose: 5 mg Documented by: Miscellaneous (Carbohydrates For Hypoglycemia) 15 - 30 gm PO UD PRN PRN Reason: Hypoglycemia Treatment Stop: 07/21/19 02:59 Miscellaneous Information (Consult Glycemic Management Pharmacy) 1 ea N/A UD PRN PRN Reason: Consult Stop: 07/21/19 02:39 Pantoprazole Sodium (Protonix) 40 mg PO QAM [facility] Stop: 07/21/19 10:59 Last Admin: 06/24/19 08:06 Dose: 40 mg Documented by: Polyethylene Glycol (Miralax Powder Packet) 17 gm PO DAILY [facility] Stop: 07/21/19 10:44 Last Admin: 06/24/19 08:42 Dose: 17 gm Documented by: Quetiapine Fumarate (Seroquel) 50 mg PO [facility] Stop: 07/20/19 20:59 Last Admin: 06/20/19 19:53 Dose: 50 mg Documented by: Sertraline HCl (Zoloft) 50 mg PO QAM [facility] Stop: 07/21/19 08:59 Last Admin: 06/21/19 07:42 Dose: 50 mg Documented by: Torsemide (Demadex) 100 mg PO [facility] Stop: 07/21/19 20:59 Last Admin: 06/23/19 20:20 Dose: 100 mg Documented by: Trazodone HCl (Desyrel) 75 mg PO [facility] Stop: 07/20/19 20:59 Last Admin: 06/23/19 20:20 Dose: 75 mg Documented by: (1) Abdominal pain Abdominal location: unspecified location Qualified Code(s): R10.9 - Unspecified abdominal pain (2) Constipation Constipation type: unspecified constipation type Qualified Code(s): K59.00 - Constipation, unspecified
[2019-06-24] MEDS: IBUPROFEN 600 MG TAB PO PRN (15:24)
[2019-06-24] MEDS: TRAZODONE HCL 50 MG TAB PO SCH (20:35)
[2019-06-24] MEDS: TORSEMIDE 100 MG TAB PO SCH (20:35)
[2019-06-24] MEDS: lamoTRIgine 100 MG TAB PO SCH (20:35)
[2019-06-24] MEDS: NYSTATIN SUSP 500,000 U/5 ML UDC PO SCH (22:14)
[2019-06-25] MEDS ORDERED: INSULIN ASPART 100 UNITS/ML 3 ML PEN SC ONE (02:00)
[2019-06-25] MEDS ORDERED: SODIUM CHLORIDE 0.9% 1000ML 1,000 ML IV PRN (06:27)
[2019-06-25] MEDS ORDERED: HEPARIN SOD (PORCINE) 1000 UNIT/ML 10 ML VIAL IV ONE (06:27)
[2019-06-25] MEDS: BUDESONIDE/FORMOTEROL FUMARATE 160/4.5 60 PUFFS/INHALER INH SCH (07:41)
[2019-06-25] MEDS: levETIRAcetam 500 MG TAB PO SCH (07:41)
[2019-06-25] MEDS: PANTOprazole 40 MG TAB PO SCH (07:41)
[2019-06-25] MEDS: METOCLOPRAMIDE HCL 5 MG TABLET PO SCH ×3 (07:41→17:55)
[2019-06-25] MEDS: NYSTATIN SUSP 500,000 U/5 ML UDC PO SCH ×3 (07:41→17:56)
[2019-06-25] MEDS: ATORVASTATIN 40 MG TAB PO SCH (07:41)
[2019-06-25] MEDS: IBUPROFEN 600 MG TAB PO PRN (07:42)
[2019-06-25] MEDS: INSULIN ASPART 100 UNITS/ML 3 ML PEN SC SCH ×3 (08:38→17:55)
--- NOTE | 2019-06-25 10:47 | Pharmacy Report ---
Pharmacy Glycemic Short Note 2 - Date of Service June 25, 2019 - Glycemic Short BSG Results (Last 24 hours): 06/24/19 06/24/19 06/24/19 11:41 16:50 19:51 POC Glucose 210 H 283 H 257 H 06/25/19 07:32 POC Glucose 186 H OUTPATIENT ANTIDIABETIC REGIMEN: * Basaglar 10u AM + Admelog 2-3u w/ meals ASSESSMENT: 06/25 * Laura received 10 units of basal and 21 units of bolus insulin yesterday * BSGs have been above goal for the past 24 hours. Suspect this may be due to diet advancement. * BSG was not checked overnight due to a system error * Hesitant to increase basal too much and cause hypoglycemia so will increase by 20% only if BSGs remain > 180 mg/dL * In order to improve BSGs throughout the day, adjusted goal range and CR slightly this AM * Lunch BSG now down to 105 mg/dL so will resume prior goal range 06/24 * Laura received 10 units of basal and 9 units of bolus insulin yesterday * BSG check at 0200 shows hyperglycemia rather than hypoglycemia * Spoke with patient. She reports having prune juice again last night. Significant other, Harley, was on the phone with her when I walked in so she had me speak with him. He reports severe lows overnight at home (although I'm not sure if this is still an issue since basal dose has been reduced). She usually has a bedtime snack but patient reports it's not large, usually small amount of cereal. * On previous admissions where we followed her, she had multiple severe hypoglycemia events. This admission has been much improved, without hypoglycemia. * Spoke w/ dietary and patient. Will plan for HS snack of crackers w/ PB to prevent overnight hypoglycemia but also prevent hyperglycemia. 06/23 * Laura received 10 units of basal and 14 units of bolus insulin yesterday * For the past 2 nights, she has had a normal BSG at midnight and then in the 200s at 0400 * Nurse reports patient had prune juice last night but I'm not sure if she had anything the night before * This would not be sherif phenomenon because that typically occurs later in the morning. Question if she's having hypoglycemia at 0200 and then we're seeing the rebound effects from that? 06/22 * Pt is a very brittle type I diabetic female. BSGs over the previous 24hrs have been reasonable: [phone]/dL. She required 20 units of basal/bolus insulin yesterday 06/21 + insulin infsn. Historically she tends to drop at dinner and HS. Given the brittle nature of her type I diabetes I am ok with BSGs 100 - ~225mg/dL. PLAN FOR INPATIENT GLYCEMIC CONTROL: * Basal insulin - increase by 20% if BSGs remain elevated * Lantus daily at lunch per the following scale: * 10 units for BSG < 180 - received 10 units today since BSG down to 105 at lunch * 12 units for BSG 180 or above * Bolus insulin - tighten CR only * NovoLog per scale ACHS or Q6hrs while NPO * Goal Range: Low 120 mg/dL - High 160 mg/dL * Correction Factor: 25 mg/dL/unit * Nutritional / Prandial insulin per carb ratio of 1 unit per 15 -> 12 grams CHO consumed * Plan to check BSG at 0200 to determine if overnight BSG no longer high without prune juice at HS. If remains elevated overnight, continue to work Lantus towards HS dosing. If not elevated overnight, plan to resume AM dosing of Lantus (what patient does at home). Discharge Recommendations: * Patient's A1c result is likely somewhat unreliable in ESRD patients d/t interactions between the A1c analyzing technique and high levels of urea in ESRD, reduced RBC life span, iron deficiency anemia, and EPO administration. HbA1c > 7.5% in ESRD patient may overestimate the extent of hyperglycemia in ESRD patients. * Patient without hypoglycemia on Lantus 10 units daily. Recommend to resume outpatient regimen on discharge, and stress bedtime snack that includes some protein to keep BSGs stable throughout the night.
[2019-06-25] MEDS ORDERED: INSULIN GLARGINE SOLOSTAR 100 UNITS/ML 3 ML PEN SC SCH (11:30)
[2019-06-25] MEDS: carvediloL 25 MG TAB PO SCH (13:12)
[2019-06-25] MEDS: POLYETHYLENE (MIRALAX) 17 GM PACK PO SCH (13:15)
[2019-06-25] MEDS: HEPARIN SOD (PORCINE) 1000 UNIT/ML 10 ML VIAL IV SCH ×2 (13:50→13:51)
[2019-06-25] MEDS ORDERED: HEPARIN SOD 5,000 UNIT/0.5 ML VIAL SQ SCH (14:00)
[2019-06-25 14:39] LABS: Basophils # (auto) 0.03 K/uL (0-0.2); Basophils % (auto) 0.8 %; Eosinophils # (auto) 0.12 K/uL (0-0.5); Eosinophils % (auto) 3.4 %; Hematocrit (blood only) 35.4 % (37-47); Hemoglobin 11.7 g/dL (12.0-16.0); Immature Granulocytes # (auto) 0.01 K/uL (0.00-0.02); Immature Granulocytes % (auto) 0.3 %; Lymphocytes # (auto) 1.65 K/uL (1.2-3.4); Lymphocytes % (auto) 46.3 %; Mean Corpuscular Hemoglobin 30.4 pg (25-34); Mean Corpuscular Hgb Conc 33.1 g/dL (32-36); Mean Corpuscular Volume 91.9 fL (80-100); Mean Platelet Volume 10.2 fL (7.4-10.4); Monocytes # (auto) 0.36 K/uL (0.11-0.59); Monocytes % (auto) 10.1 %; Neutrophils # (auto) 1.39 K/uL (1.4-6.5); Neutrophils % (auto) 39.1 %; Platelet Count 256 K/uL (130-400); RDW Standard Deviation 50.6 fL (36.4-46.3); Red Blood Count 3.85 M/uL (4.2-5.4); White Blood Count 3.56 K/uL (4.8-10.8)
[2019-06-25 15:05] LABS: BUN Creatinine Ratio 2.8 (10-20); Calcium 8.5 mg/dl (8.5-10.1); Creatinine Clr Calc Pharmacy 26.6 ml/min; Est GFR (African American) 29.7; Est GFR (Non-African American) 25.6; Potassium 4.3 mmol/L (3.5-5.1)
--- NOTE | 2019-06-25 16:56 | Discharge Summary ---
Date of Service June 25, 2019 Admission HPI Per Admitting Provider 48 YO female followed by Dr. Santo in [place] for primary care. History of diabetes mellitus type 1, chronic kidney disease stage V on hemodialysis, gastroparesis, coronary artery disease, and other problems. Chronic/intermittent GI problems related to gastroparesis. Underwent ERCP about 2 weeks ago with sphincterotomy and dilatation. Presented to the ED with 3 days of nausea and vomiting associated with abdominal pain. Patient describes coffee-ground emesis. Abdominal pain is epigastric and right-sided, sometimes severe. Symptoms worsened by eating. He is a pantoprazole and ondansetron without relief. No bowel movements for several days; no melena or hematochezia prior to last bowel movement. She was told that recent urinalysis showed some hematuria, but has not noted any gross hematuria. No dysuria. No fever, but experiencing some chills. Glucose monitoring at home "high" for fingerstick blood sugars and continuous glucose monitor. Admission Exam Per Admitting Provider General: Non-ill appearing middle-aged female in no acute distress. She is holding an emesis bag. HEENT: Normal cephalic atraumatic. Pupils are equal round and reactive to light. Extraocular movements are intact. Oropharynx is pink with moist mucous membranes. No swelling of the mouth lips or tongue. Neck: Supple with a midline trachea. No meningeal signs or stiffness, no JVD or bruits. No Stridor. Chest: Clear to auscultation bilaterally. No wheezes or rhonchi. No increased work of breathing. Heart: regular rate and rhythm. Abdomen: Soft, nondistended without rebound guarding or rigidity. Diffusely mildly tender but no masses. Extremities: No cyanosis clubbing or edema. No calf tenderness or asymmetry. Fistula in right arm. Spine/Back. Non tender to palpation. No CVA tenderness Skin: Good turgor without rashes. Neurologic exam: Cranial nerves two through 12 are intact. Motor and sensation are intact and symmetrical throughout. Principal Diagnosis abdominal pain constipation neutropenia diabetic gastroparesis ESRD on hemodialysis oral thrush Discharge Data Allergies Allergy/AdvReac Type Severity Reaction Status Date / Time Fish Containing Products Allergy Mild Hives Verified 06/20/19 11:19 latex Allergy Mild hives Verified 06/20/19 11:19 Consultations 06/20/19 13:50 ED Decision to Admit Stat 06/20/19 14:55 Consult Gastroenterology Routine Consult Nephrology Routine Ordered Studies 06/20/19 11:25 CT abd pelvis wo con Stat 06/23/19 11:53 US abdomen limited Routine Hospital Course (1) Abdominal pain: (2) Neutropenia: (3) Constipation: (4) Diabetic gastroparesis associated with type 1 diabetes mellitus: (5) End-stage renal disease (ESRD): (6) Thrush: 48-year-old female with complications from type 1 diabetes and end-stage renal disease on hemodialysis presented with abdominal pain nausea and vomiting and an elevation in glucose to over 600. She was admitted to the hospitalist service and placed on insulin drip with improvement in her hyperglycemia. She notably did not have an anion gap metabolic acidosis. Her nausea and vomiting improved with supportive care and GI was consulted. They felt her abdominal pain was likely a combination of gastroparesis and constipation which is a chronic issue for her. She was started on Reglan 5 mg PO three times daily with meals. She continued to receive inpatient hemodialysis while she was here under the guidance of nephrology. She simultaneously reported some URI symptoms consistent with a cough and runny nose. Her lab work revealed neutropenia at one point which resolved after 2 days. It is possible that this was from her viral illness and/or she had recently taken linezolid in late May. She never became febrile, however, and her neutropenia resolved. She did have at least two bowel movements while admitted and continued on stool softeners and laxatives as needed. She also uses Linzess at home. At time of discharge we determined that the Reglan was not that helpful for her symptoms and this was not continued moving forward. At time of discharge she was hemodynamically stable and afebrile and tolerating p.o. She was ambulating and mentating at baseline and oxygenating well on room air. Abdomen was very benign with no tenderness to palpation no distention. She felt she was back to her baseline and she was sent home in stable condition with close primary care follow-up recommended. Of note she was found to have thrush and was started on a course of nystatin therapy which will be completed in approximately 10 days. PCP to follow-up response to nystatin swish. Total Time Total Time Spent Total Time Spent (In Minutes): 60 Total Time Includes: Examination of the Patient, Discharge Planning, Medication Reconciliation, Communication With Other Providers and Other (arrange followup) Discharge Plan Discharge Items Patient Disposition: Home - Self-Care Reason For Visit: ABDOMINAL PAIN, HYPERGLYCEMIA Discharge Diagnosis: abdominal pain constipation neutropenia diabetic gastroparesis ESRD on hemodialysis oral thrush Condition on Discharge: Good Activity: Resume your previous activity Non-emergency contact: Primary Care Provider Call non-emergency contact if: you have any medication questions, your symptoms worsen, your pain is not controlled, your pain is worsening, your pain is unusual for you, your pain is concerning for you and you have a fever Follow-up/Referrals: Mitchel Santo MD [Primary Care Provider] - Shana Hodge PA-C [Outside Practitioners] - 06/30/19 10:25 am Diet: Carb Consistent or DM2 and Dialysis Renal Addtl Attending Provider Instructions: Please take all medications as instructed on discharge list below. Please resume your typically scheduled hemodialysis. Please continue to work with your primary care physician regarding a plan to optimize your GI symptoms and reduce your abdominal pain symptoms/constipation symptoms. As we discussed you can use Miralax with food until you are having regular bowel movements, and then transition the Miralax to fiber supplementation (Metamucil or Citrucel) It was a pleasure taking care of you! Please call if you have any questions or problems. You can reach a [facility] hospitalist on duty at [facility] 24 hours a day by calling [phone]. Take care of yourself. Arpita Ramos, DO [facility] Hospitalist Pending Studies at Discharge: No Stand-Alone Forms: My [facility], Smoking Cessation Medications and DC Order Prescriptions: New nystatin 100,000 unit/mL Suspension 10 ml PO QID Qty: 480 RF: 0 Continued trazodone 150 mg tablet 75 mg PO HS RF: 0 aripiprazole 5 mg tablet 5 mg PO HS RF: 0 bisacodyl 10 mg suppository 10 mg [place] DAILY PRN (Reason: constipation) Qty: 2 RF: 0 metoclopramide HCl [Reglan] 10 mg tablet 10 mg PO Q6H Qty: 10 RF: 0 multivitamin Tablet 1 tab PO QAM RF: 0 atorvastatin [Lipitor] 80 mg tablet 80 mg PO QAM RF: 0 carvedilol 25 mg Tablet 25 mg PO BID RF: 0 polyethylene glycol 3350 [Miralax] 17 gram Powder In Packet 17 g PO BID PRN (Reason: Constipation) RF: 0 aspirin [Aspir-81] 81 mg Tablet,Delayed Release (Dr/Ec) 81 mg PO QAM RF: 0 metoclopramide HCl [Reglan] 5 mg tablet 5 mg PO BID RF: 0 torsemide 100 mg tablet 100 mg PO QPM RF: 0 pantoprazole 40 mg Tablet,Delayed Release (Dr/Ec) 40 mg PO QAM RF: 0 glucose 4 gram Tablet,Chewable 10 g PO UD RF: 0 ergocalciferol (vitamin D2) [Vitamin D2] 50,000 unit capsule 50,000 unit PO MONTHLY RF: 0 [place] Caps 1 mg Capsule 1 cap PO QAM RF: 0 albuterol sulfate [Proventil HFA] 90 mcg/actuation HFA aerosol inhaler 2 puff inhalation Q4 PRN (Reason: Wheezing) RF: 0 ondansetron 4 mg Tablet,Disintegrating 4 mg PO Q8H PRN (Reason: Nausea) RF: 0 sertraline [Zoloft] 50 mg tablet 50 mg PO QAM RF: 0 lamotrigine [Lamictal] 100 mg tablet 100 mg PO QPM RF: 0 bisacodyl 5 mg Tablet 5 mg PO DAILY PRN (Reason: Constipation) RF: 0 insulin lispro [Admelog SoloStar U-100 Insulin] 100 unit/mL insulin pen 2 unit subcut TIDM RF: 0 calcium acetate 667 mg capsule 667 mg PO TIDM RF: 0 Basaglar KwikPen U-100 Insulin 100 unit/mL (3 mL) insulin pen 10 unit subcut QAM RF: 0 Breo Ellipta 200-25 mcg/dose Blister With Device 1 inh INHALATION QAM RF: 0 quetiapine 50 mg tablet 50 mg PO HS RF: 0 bupropion HCl 100 mg Tablet 100 mg PO BID Qty: 0 RF: 0 levetiracetam 500 mg tablet 500 mg PO BID RF: 0 Discontinued linezolid 600 mg Tablet 600 mg PO BID RF: 0 Discharge Orders: Discharge Order (Routine); Ordered 06/25/19 Ordered By: Arpita Ramos Admission Data Admit Date/Time: 06/20/19 13:37 Attending Provider: Arpita Ramos Admit Provider: Markie Sepulveda Primary Care Provider: Mitchel Santo Other Providers: Markie Sepulveda ; Liam Barnes ; Stanley Donaldson Other Interventions: Discharge Summary Assessment (RN) Last Done: 06/25/19 17:03 DC Date/Time DO NOT enter until pt leaves facility: 06/25/19 18:18
--- NOTE | 2019-06-25 16:57 | Nephrology Progress Note ---
Date of Service June 25, 2019 Assessment & Plan (1) End-stage renal disease (ESRD): Patient with ESRD on HD TTS. Her last HD was . She missed 06/20/19 due to vomiting and presented to the ER. Her electrolytes are stable and no signs of volume overload. again, like yesterday, no need for HD today. -for HD today -anemia and chemistries and volume status all acceptable>> chem panel drawn ON HD and will artificially depress K/creatinine/affect other chemistries -- K better today (2) Abdominal pain: Due to gastroparesis and gall bladder disease. She is getting PPIs. Gastroenterology recommendations on chart; no intervention planned. s/p 06/08 spincterotomy/sphincterplasty for papillary stenosis Subjective seen on rounds this am at 0705. not sob; still w/ occasional abd pain. no edema. Review of Systems Review of Systems: All systems reviewed & are unremarkable except as noted in HPI & below Physical Exam Constitutional: well developed, well nourished and comfortable; no acute distress (lying on side of bed) Eyes: EOM intact bilaterally ENMT: Ears: no external ear abnormality Nose: no external nose abnormality Mouth: + dry oral mucous membranes Neck: no nuchal rigidity Respiratory: normal respiratory effort Auscultation: lungs clear to auscultation bilaterally and + diminished lung sounds Cardiovascular: RRR, no murmur, no edema Extremities: + AV fistula (+ t/b RUE) Gastrointestinal (Abdomen): Inspection/Auscultation: normal bowel sounds Percussion/Palpation: + abdomen tender (R abd) and abdomen soft Musculoskeletal: Extremities: strength 5/5 throughout Skin: no rashes, warm and dry Psychiatric: Orientation: alert and oriented x 3 Results & Data Vital Signs (Past 12 Hours) Vital Signs Temp Pulse Pulse Resp BP BP BP 06/25/19 15:00 36.8 C 81 20 110/74 06/25/19 12:55 37.1 C 76 138/77 06/25/19 12:20 74 114/55 L 06/25/19 12:00 74 124/71 06/25/19 11:40 74 96/58 L 06/25/19 11:20 77 113/61 06/25/19 11:00 80 108/55 L 06/25/19 10:40 77 114/66 06/25/19 10:20 79 128/65 06/25/19 10:00 78 146/63 H 06/25/19 09:40 75 132/62 06/25/19 09:20 76 158/68 H 06/25/19 09:03 36.9 C 75 75 160/68 H 06/25/19 07:13 36.7 C 75 16 125/74 Pulse Ox 06/25/19 15:00 99 06/25/19 12:55 06/25/19 12:20 06/25/19 12:00 06/25/19 11:40 06/25/19 11:20 06/25/19 11:00 06/25/19 10:40 06/25/19 10:20 06/25/19 10:00 06/25/19 09:40 06/25/19 09:20 06/25/19 09:03 06/25/19 07:13 99 Laboratory Results 06/25/19 14:30 06/25/19 14:30 (1) Abdominal pain Abdominal location: unspecified location Qualified Code(s): R10.9 - Unspecified abdominal pain
[2019-06-26] MEDS ORDERED: INSULIN ASPART 100 UNITS/ML 3 ML PEN SC ONE (02:00)
== END 2019-06-25 18:18 | disposition home or self-care (01) | DRG 73 ==
LOC: ED 09:34 → 2S 13:37 → SUATTDRO 13:37 → 2S 14:24 → 4W 06-21 21:51

== ENCOUNTER 2019-08-01 17:32 | Observation (INO) ==
[2019-08-01] MEDS ORDERED: METOCLOPRAMIDE HCL INJ 5 MG/ML 2 ML VIAL IV STA (17:52)
[2019-08-01] MEDS ORDERED: MoRPHine SULFATE 4 MG/ML 1 ML CARP\\VIAL IV STA (17:52)
[2019-08-01] MEDS ORDERED: SODIUM CHLORIDE 0.9% 1000ML 1,000 ML IV SCH ×2 (18:00→22:25)
[2019-08-01 19:14] LABS: Basophils # (auto) 0.03 K/uL (0-0.2); Basophils % (auto) 0.6 %; Eosinophils # (auto) 0.14 K/uL (0-0.5); Hematocrit (blood only) 28.7 % (37-47); Hemoglobin 9.7 g/dL (12.0-16.0); Immature Granulocytes # (auto) 0.01 K/uL (0.00-0.02); Immature Granulocytes % (auto) 0.2 %; Lymphocytes # (auto) 1.36 K/uL (1.2-3.4); Lymphocytes % (auto) 28.9 %; Mean Corpuscular Hemoglobin 31.4 pg (25-34); Mean Corpuscular Hgb Conc 33.8 g/dL (32-36); Mean Corpuscular Volume 92.9 fL (80-100); Monocytes # (auto) 0.34 K/uL (0.11-0.59); Monocytes % (auto) 7.2 %; Neutrophils # (auto) 2.83 K/uL (1.4-6.5); Neutrophils % (auto) 60.1 %; Platelet Count 190 K/uL (130-400); Red Blood Count 3.09 M/uL (4.2-5.4); White Blood Count 4.71 K/uL (4.8-10.8)
[2019-08-01 19:18] LABS: Base Excess VBG -1.1 mEq/L; HCO3 VBG 25 mmol/L; PCO2 VBG 46 mmHg (38-50); PO2 VBG 43 mmHg; pH VBG 7.35 (7.36-7.41)
[2019-08-01 19:21] LABS: Oxygen Saturation VBG < 60.0 %
[2019-08-01 19:26] LABS: Appearance Urine Clear (Clear); Bilirubin Urine Negative (Negative); Blood Urine Trace (Negative); Color Urine Yellow; Glucose Urine UA 3+ (Negative); Ketones Urine Trace (Negative); Leukocyte Esterase Urine Negative (Negative); Nitrite Urine Negative (Negative); Protein Urine 3+ (Negative); Urobilinogen Urine Negative (Negative); pH Urine 6.5 (4.5-7.5)
--- NOTE | 2019-08-01 19:28 | Emergency Department Note ---
Entered by Kimberly Noland acting as a scribe for History of Present Illness General Chief complaint: Vomiting Stated complaint: VOMITING Time Seen by Provider: 08/01/19 17:40 Source: patient and family () History of Present Illness Onset (ago): day(s) (3) Location: abdomen Pain Consistency: + intermittent Maximum Pain Intensity: 8 Quality: + other (vomiting) Associated symptoms: + denies other symptoms (diarrhea, leg swelling), + loss of appetite and + other (abdominal pain, weight loss, mouth pain); no chest pain and no shortness of breath The patient is a 48 year old female who presents to the Emergency Room with complaints of intermittent vomiting beginning 3 days ago. The patient reports abdominal pain, loss of appetite, and loss of weight. The patient denies chest pain, shortness of breath, diarrhea, and swelling in her legs. The patient's reports the patient's recent CT of the abdomen showed pancreatitis. He notes the patient was sent home with Zofran. The patient's reports the patient had all of her teeth taken out 3 days ago. He states the patient was sent home with amoxicillin and oxycodone which have not been helping very much with the mouth pain. The patient reports a history of Type 1 diabetes. The patient's states the patient's blood sugar was 545 this morning. He notes it has been high for the past couple of days. He denies alcohol use. The patient states she is on dialysis Saturday, , and Saturdays. She notes she did not go today. The patient notes he has been sick with vomiting recently. Home Medications Home Medications Medication Instructions Recorded Confirmed Type Snyder Caps 1 cap PO QPM 12/19/18 08/01/19 History albuterol sulfate [Proventil HFA] 2 puff INHALATION Q4H PRN 12/19/18 08/01/19 History bisacodyl 10 mg PO DAILY PRN 12/19/18 08/01/19 History carvedilol 12.5 mg PO BIDM 12/19/18 08/01/19 History ergocalciferol (vitamin D2) 50,000 unit PO WK 12/19/18 08/01/19 History [Vitamin D2] insulin lispro [Admelog SoloStar See Rx Instructions .ROUTE .COMPLEX 12/19/18 08/01/19 History U-100 Insulin] lamotrigine [Lamictal] 100 mg PO QPM 12/19/18 08/01/19 History multivitamin 1 tab PO QAM 12/19/18 08/01/19 History pantoprazole 40 mg PO QAM 12/19/18 08/01/19 History polyethylene glycol 3350 [Miralax] 17 g PO BID PRN 12/19/18 08/01/19 History aripiprazole 5 mg PO HS 05/20/19 08/01/19 History bisacodyl 10 mg NM DAILY PRN #2 ea 05/20/19 08/01/19 Rx levetiracetam 500 mg PO BID 06/20/19 08/01/19 History nystatin 10 ml PO QID #480 ml 06/25/19 08/01/19 Rx acetaminophen 325 mg PO Q4H PRN 08/01/19 08/01/19 History amoxicillin 500 mg PO Q6H 08/01/19 08/01/19 History atorvastatin 40 mg PO HS 08/01/19 08/01/19 History insulin glargine [Lantus Solostar 12 unit SUBCUT DAILY 08/01/19 08/01/19 History U-100 Insulin] oxycodone-acetaminophen See Rx Instructions .ROUTE .COMPLEX 08/01/19 08/01/19 History sertraline 100 mg PO HS 08/01/19 08/01/19 History trazodone 150 mg PO HS PRN 08/01/19 08/01/19 History Allergies Allergy/AdvReac Type Severity Reaction Status Date / Time Fish Containing Products Allergy Mild Hives Verified 06/20/19 11:19 latex Allergy Mild hives Verified 06/20/19 11:19 Past Med/Surg History Medical History Anemia due to chronic kidney disease (Chronic) Arteriovenous fistula for hemodialysis in place, primary (Chronic) Bipolar disorder (Chronic) CKD (chronic kidney disease) stage V requiring chronic dialysis Coronary artery disease (Chronic) "2015 - cardiac catheterization showing nonobstructive coronary disease Stress test 06/2017 - possible small area of ischemia in the anterior wall" CVA (cerebral vascular accident) (Chronic) 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 history of CVA in 2018 Residual R sided weakness Depression (Chronic) Diabetic gastroparesis (Chronic) Diastolic heart failure (Chronic) DM type 1 (diabetes mellitus, type 1) (Chronic) ESRD (end stage renal disease) on dialysis GERD (gastroesophageal reflux disease) (Chronic) History of GI bleed (Chronic) Hyperlipidemia (Chronic) Hypertension (Chronic) Seizure (Chronic) Surgical History Hx of appendectomy (Inactive) Hx of cholecystectomy (Inactive) Hx of tubal ligation (Inactive) Family History Mother Coronary heart disease Hypertension Father Coronary heart disease Other No significant family history Social History Preferred Language: Yi Communication Ability: Effective Bad Credit Collector Required: No Beliefs That Will Affect Care: None marital status: Current Living Situation: Spouse current occupational status: unemployed Feels Safe at Home: Yes Smoking Status: Former smoker Hx Alcohol Use: No Hx Substance Use: No Review of Systems See HPI for pertinent positives & negatives. and A total of 10 systems reviewed and were otherwise negative Physical Exam Vital Signs Vital Signs - 24 hr 08/01/19 17:35 08/01/19 18:52 08/01/19 19:00 Temperature 36.9 C Temperature Source Oral Pulse Rate 93 H 84 87 Pulse Rate from SpO2 Sensor 84 87 Respiratory Rate 22 18 17 Respiratory Effort / Characteristics Non-Labored Spontaneous Respiratory Depth Normal Blood Pressure 174/80 H Blood Pressure Mean 111 Blood Pressure Position Sitting Pulse Oximetry 99 100 100 Oxygen Delivery Method Room Air Sepsis Recent Fever Within 48 Hours No Sepsis Action Taken by Nursing No Action Required 08/01/19 20:01 Temperature Temperature Source Pulse Rate 90 Pulse Rate from SpO2 Sensor 90 Respiratory Rate 19 Respiratory Effort / Characteristics Respiratory Depth Blood Pressure 180/67 H Blood Pressure Mean 104 Blood Pressure Position Pulse Oximetry 100 Oxygen Delivery Method Sepsis Recent Fever Within 48 Hours Sepsis Action Taken by Nursing GENERAL: Awake, alert, fatigued-appearing on bed HENT: Normocephalic, atraumatic. Healing gums from tooth extraction, no active bleeding. EYES: Normal conjunctiva. Sclera non-icteric. NECK: Supple. No nuchal rigidity. RESPIRATORY: Clear to auscultation. No wheezes. Normal respiratory effort. CARDIAC: Normal rate. Normal rhythm. Extremities warm and well perfused. GI: Soft, non-distended. Mild diffuse abdominal tenderness to palpation. No rebound or guarding. RECTAL: Deferred. MUSCULOSKELETAL: Atraumatic. Chest examination reveals no tenderness. RUE fi stula with thrill LOWER EXTREMITIES: Calves are equal size bilaterally and non-tender. No edema NEURO: Normal sensorium. No sensory or motor deficits noted. No facial droop. SKIN: Warm and dry. No jaundice noted. Course Course 1744: Past medical records reviewed. The patient was evaluated in room B03B. A complete history and physical exam was performed. 2000: Upon reevaluation, I discussed findings and results with the patient and her . They verbalized agreement of the treatment plan. [facility] The patient will be evaluated for further management and care. Administered Medications Discontinued Medications Sodium Chloride (Nss 1000ml) 1,000 mls @ 999 mls/hr IV .Q1H1M SARAH Stop: 08/01/19 19:00 Last Infusion: 08/01/19 20:09 Dose: 0 mls/hr Documented by: [id number] Admin: 08/01/19 19:14 Dose: 999 mls/hr Documented by: [id number] Metoclopramide HCl (Reglan) 10 mg IV NOW STA Stop: 08/01/19 17:53 Last Admin: 08/01/19 19:14 Dose: 10 mg Documented by: [id number] Morphine Sulfate (Morphine Sulfate) 4 mg IV NOW STA Stop: 08/01/19 17:53 Last Admin: 08/01/19 19:14 Dose: 4 mg Documented by: [id number] Critical Care Time Critical Care Time: Yes Total Critical Care Time: 35 I have personally spent 35 minutes of critical care time in the direct manage ment of this patient. This includes bedside care, interpretation of diagnostic studies, and testing, discussion with consultants, patient, and family members, and other required patient management activities. This 35 minutes is in excess of all separately billable procedures. Medical Decision Making Differential Diagnosis Differential diagnoses includes but is not limited to gastritis, peptic ulcer disease, GERD, gallbladder disease, pancreatitis, small bowel obstruction, acute coronary syndrome, pericarditis, ischemic bowel, irritable bowel disease, irritable bowel syndrome, appendicitis, diverticulitis, malignancy, hernia, urinary tract infection, torsion, /ectopic , perforation, trauma, infectious. Medical Records Attestation: I reviewed the patient's medical records. Home Medications Current Medication List: was personally reviewed by me Laboratory Data Attestation: I reviewed the patient's lab results. Result diagrams: 08/01/19 18:56 08/01/19 18:56 Lab Results 08/01/19 08/01/19 08/01/19 Range/Units 18:45 18:45 18:56 WBC 4.71 L (4.8-10.8) K/uL RBC 3.09 L (4.2-5.4) M/uL Hgb 9.7 L (12.0-16.0) g/dL Hct 28.7 L (37-47) % MCV 92.9 (80-100) fL MCH 31.4 (25-34) pg MCHC 33.8 (32-36) g/dL Plt Count 190 (130-400) K/uL Immature Gran % (Auto) 0.2 % Neut % (Auto) 60.1 % Lymph % (Auto) 28.9 % Randall % (Auto) 7.2 % Eos % (Auto) 3.0 % Baso % (Auto) 0.6 % Immature Gran # (Auto) 0.01 (0.00-0.02) K/uL Neut # (Auto) 2.83 (1.4-6.5) K/uL Lymph # (Auto) 1.36 (1.2-3.4) K/uL Randall # (Auto) 0.34 (0.11-0.59) K/uL Eos # (Auto) 0.14 (0-0.5) K/uL Baso # (Auto) 0.03 (0-0.2) K/uL PT (9.0-12.0) Seconds INR (0.9-1.1) VBG pH 7.35 L (7.36-7.41) VBG pCO2 46 (38-50) mmHg VBG pO2 43 mmHg VBG HCO3 25 mmol/L VBG O2 Saturation < 60.0 % VBG Base Excess -1.1 mEq/L Barometric Pressure 737.0 mm/Hg Sodium (136-145) mmol/L Potassium (3.5-5.1) mmol/L Chloride (98-107) mmol/L Carbon Dioxide (21-32) mmol/L Anion Gap (3-11) BUN (7-18) mg/dl Creatinine (0.6-1.2) mg/dl Est Cr Clr Drug Dosing Est GFR ( Amer) Est GFR (Non-Af Amer) BUN/Creatinine Ratio (10-20) Glucose (70-99) mg/dl POC Glucose 560 H* (70-99) mg/dl Lactate (0.4-2.0) mmol/L Calcium (8.5-10.1) mg/dl Phosphorus (2.5-4.9) mg/dl Magnesium (1.8-2.4) mg/dl Total Bilirubin (0.2-1) mg/dl AST (15-37) U/L ALT (12-78) U/L Alkaline Phosphatase (45-117) U/L Troponin I (0-0.045) ng/ml Total Protein (6.4-8.2) gm/dl Albumin (3.4-5.0) gm/dl Globulin (2.5-4.0) gm/dl Albumin/Globulin Ratio (0.9-2) Lipase (73-393) U/L Beta-Hydroxybutyric Acd (0.2-2.81) mg/dl Urine Color Urine Appearance (Clear) Urine pH (4.5-7.5) Ur Specific [place] (1.000-1.030) Urine Protein (Negative) Urine Glucose (UA) (Negative) Urine Ketones (Negative) Urine Blood (Negative) Urine Nitrite (Negative) Urine Bilirubin (Negative) Urine Urobilinogen (Negative) Ur Leukocyte Esterase (Negative) Urine WBC (Auto) (0-5) /hpf Urine RBC (Auto) (0-4) /hpf U Hyaline Cast (Auto) (0-5) /lpf U Epithel Cells (Auto) (0-5) /lpf Urine Bacteria (Auto) (Negative) 08/01/19 08/01/19 08/01/19 Range/Units 18:56 18:56 18:57 WBC (4.8-10.8) K/uL RBC (4.2-5.4) M/uL Hgb (12.0-16.0) g/dL Hct (37-47) % MCV (80-100) fL MCH (25-34) pg MCHC (32-36) g/dL Plt Count (130-400) K/uL Immature Gran % (Auto) % Neut % (Auto) % Lymph % (Auto) % Randall % (Auto) % Eos % (Auto) % Baso % (Auto) % Immature Gran # (Auto) (0.00-0.02) K/uL Neut # (Auto) (1.4-6.5) K/uL Lymph # (Auto) (1.2-3.4) K/uL Randall # (Auto) (0.11-0.59) K/uL Eos # (Auto) (0-0.5) K/uL Baso # (Auto) (0-0.2) K/uL PT 10.9 (9.0-12.0) Seconds INR 1.1 (0.9-1.1) VBG pH (7.36-7.41) VBG pCO2 (38-50) mmHg VBG pO2 mmHg VBG HCO3 mmol/L VBG O2 Saturation % VBG Base Excess mEq/L Barometric Pressure mm/Hg Sodium 128 L (136-145) mmol/L Potassium 5.2 H (3.5-5.1) mmol/L Chloride 94 L (98-107) mmol/L Carbon Dioxide 22 (21-32) mmol/L Anion Gap 12.0 H (3-11) BUN 48 H (7-18) mg/dl Creatinine 2.85 H (0.6-1.2) mg/dl Est Cr Clr Drug Dosing Not Reportable Est GFR ( Amer) 21.4 Est GFR (Non-Af Amer) 18.5 BUN/Creatinine Ratio 17.0 (10-20) Glucose 552 H* (70-99) mg/dl POC Glucose (70-99) mg/dl Lactate 0.8 (0.4-2.0) mmol/L Calcium 9.0 (8.5-10.1) mg/dl Phosphorus 4.0 (2.5-4.9) mg/dl Magnesium 2.5 H (1.8-2.4) mg/dl Total Bilirubin 0.4 (0.2-1) mg/dl AST 33 (15-37) U/L ALT 72 (12-78) U/L Alkaline Phosphatase 161 H (45-117) U/L Troponin I < 0.015 (0-0.045) ng/ml Total Protein 8.1 (6.4-8.2) gm/dl Albumin 3.4 (3.4-5.0) gm/dl Globulin 4.7 H (2.5-4.0) gm/dl Albumin/Globulin Ratio 0.7 L (0.9-2) Lipase 110 (73-393) U/L Beta-Hydroxybutyric Acd 21.52 H (0.2-2.81) mg/dl Urine Color Urine Appearance (Clear) Urine pH (4.5-7.5) Ur Specific [place] (1.000-1.030) Urine Protein (Negative) Urine Glucose (UA) (Negative) Urine Ketones (Negative) Urine Blood (Negative) Urine Nitrite (Negative) Urine Bilirubin (Negative) Urine Urobilinogen (Negative) Ur Leukocyte Esterase (Negative) Urine WBC (Auto) (0-5) /hpf Urine RBC (Auto) (0-4) /hpf U Hyaline Cast (Auto) (0-5) /lpf U Epithel Cells (Auto) (0-5) /lpf Urine Bacteria (Auto) (Negative) 08/01/19 Range/Units Unknown WBC (4.8-10.8) K/uL RBC (4.2-5.4) M/uL Hgb (12.0-16.0) g/dL Hct (37-47) % MCV (80-100) fL MCH (25-34) pg MCHC (32-36) g/dL Plt Count (130-400) K/uL Immature Gran % (Auto) % Neut % (Auto) % Lymph % (Auto) % Randall % (Auto) % Eos % (Auto) % Baso % (Auto) % Immature Gran # (Auto) (0.00-0.02) K/uL Neut # (Auto) (1.4-6.5) K/uL Lymph # (Auto) (1.2-3.4) K/uL Randall # (Auto) (0.11-0.59) K/uL Eos # (Auto) (0-0.5) K/uL Baso # (Auto) (0-0.2) K/uL PT (9.0-12.0) Seconds INR (0.9-1.1) VBG pH (7.36-7.41) VBG pCO2 (38-50) mmHg VBG pO2 mmHg VBG HCO3 mmol/L VBG O2 Saturation % VBG Base Excess mEq/L Barometric Pressure mm/Hg Sodium (136-145) mmol/L Potassium (3.5-5.1) mmol/L Chloride (98-107) mmol/L Carbon Dioxide (21-32) mmol/L Anion Gap (3-11) BUN (7-18) mg/dl Creatinine (0.6-1.2) mg/dl Est Cr Clr Drug Dosing Est GFR ( Amer) Est GFR (Non-Af Amer) BUN/Creatinine Ratio (10-20) Glucose (70-99) mg/dl POC Glucose (70-99) mg/dl Lactate (0.4-2.0) mmol/L Calcium (8.5-10.1) mg/dl Phosphorus (2.5-4.9) mg/dl Magnesium (1.8-2.4) mg/dl Total Bilirubin (0.2-1) mg/dl AST (15-37) U/L ALT (12-78) U/L Alkaline Phosphatase (45-117) U/L Troponin I (0-0.045) ng/ml Total Protein (6.4-8.2) gm/dl Albumin (3.4-5.0) gm/dl Globulin (2.5-4.0) gm/dl Albumin/Globulin Ratio (0.9-2) Lipase (73-393) U/L Beta-Hydroxybutyric Acd (0.2-2.81) mg/dl Urine Color Yellow Urine Appearance Clear (Clear) Urine pH 6.5 (4.5-7.5) Ur Specific [place] 1.020 (1.000-1.030) Urine Protein 3+ H (Negative) Urine Glucose (UA) 3+ H (Negative) Urine Ketones Trace H (Negative) Urine Blood Trace H (Negative) Urine Nitrite Negative (Negative) Urine Bilirubin Negative (Negative) Urine Urobilinogen Negative (Negative) Ur Leukocyte Esterase Negative (Negative) Urine WBC (Auto) 1-5 (0-5) /hpf Urine RBC (Auto) 0-4 (0-4) /hpf U Hyaline Cast (Auto) 0 (0-5) /lpf U Epithel Cells (Auto) >30 H (0-5) /lpf Urine Bacteria (Auto) Negative (Negative) Imaging Data Radiologist's Impression: Radiology results as stated below per my review and the radiologist's interpretation: CT abd pelvis wo con CT DOSE: 287.21 mGy.cm HISTORY: Pain. Nausea. Vomiting. pain, nausea, vomiting TECHNIQUE: Multiaxial CT images of the abdomen and pelvis were performed without contrast. A dose lowering technique was utilized adhering to the principles of ALARA. COMPARISON STUDY: 06/20/2019 lung bases are clear. Liver spleen and pancreas are unremarkable. There has been a cholecystectomy. Nonobstructing nephrocalcinosis is again noted. There is no evidence for renal hydronephrosis. Bowel pattern is considered nonobstructive. There is a 3 cm right ovarian cyst. There is an intrauterine device present within the uterus. Bladder is midline. FINDINGS: 1. 3 cm right ovarian cyst. 2. Otherwise negative abdomen and pelvis. 3. Nonobstructing bilateral renal nephrocalcinosis. IMPRESSION: No significant abnormality identified within the abdomen or pelvis. ACT 112: Negative or not required by law. The above report was generated using voice recognition software. It may contain grammatical, syntax or spelling errors. Electronically signed by: Kasi Alan M.D. 08/01/2019 7:40 PM ECG Data Attestation: I personally reviewed and interpreted this ECG as follows: Indication: + abdominal pain Rate (beats per minute): 84 Rhythm: + normal sinus ECG [place]er[place]: + Normal ECG ST segments: no ST depression and no ST elevation ECG Findings: + Other (QTC 489); no PVCs Blood Pressure Blood Pressure Findings: Elevated blood pressure Blood Pressure Disposition: further management by hospitalist LAZARUS Narrative Patient is a 48-year-old female history of type 1 diabetes, gastroparesis, hemodialysis, CAD among other issues presenting today complaining of significant vomiting over this past week. States that she had several teeth removed this past weekend and vomiting since. No fevers or other trauma reported. Admitted just over a month ago for abdominal pain and vomiting. No evidence of dental bleeding. Recent admission for DKA in [place]. Fracture at home Zofran. Given some Reglan here. Given some morphine for pain. Blood sugars have been significantly high at home. Elevated in the 500s here. Some mild abdominal tenderness. Given her significant history I did recomplete a CT scan of her abdomen pelvis. pH of 7.35. Does not appear to be in gross DKA. Bicarb 22. Borderline anion gap. No significant leukocytosis. QTC is somewhat prolonged similar to previous. No evidence of acute hepatitis or pancreatitis. CT scan without acute intra-abdominal pathology noted; evidence oral contrast likely from her recent stay at [facility] as noted. Query if there is constipation component versus exacerbation of her underlying gastroparesis. No evidence of UTI. Trace ketones are noted with some glucose. Given elevated glucose start on insulin drip. Discussed with hospitalist further care. Impression & Plan Vomiting, Abdominal pain, Hyperglycemia due to type 1 diabetes mellitus Discharge Plan Visit Data Chief Complaint: Vomiting Stated Complaint: VOMITING ED Provider: Andrea Lewis Discharge Problem: Vomiting, Abdominal pain, Hyperglycemia due to type 1 diabetes mellitus Patient Disposition: Admitted As Inpatient Forms Stand Alone Forms: [facility] Prescriptions Prescriptions: No Action aripiprazole 5 mg tablet 5 mg PO HS RF: 0 bisacodyl 10 mg suppository 10 mg NM DAILY PRN (Reason: constipation) Qty: 2 RF: 0 amoxicillin 500 mg capsule 500 mg PO Q6H RF: 0 oxycodone-acetaminophen 5-325 mg tablet See Rx Instructions .ROUTE .COMPLEX RF: 0 atorvastatin 40 mg tablet 40 mg PO HS RF: 0 acetaminophen 325 mg Tablet 325 mg PO Q4H PRN (Reason: Pain) RF: 0 trazodone 50 mg tablet 150 mg PO HS PRN (Reason: Sleep) RF: 0 sertraline 100 mg tablet 100 mg PO HS RF: 0 Lantus Solostar U-100 Insulin 100 unit/mL (3 mL) insulin pen 12 unit SUBCUT DAILY RF: 0 multivitamin Tablet 1 tab PO QAM RF: 0 carvedilol 25 mg Tablet 12.5 mg PO BIDM RF: 0 polyethylene glycol 3350 [Miralax] 17 gram Powder In Packet 17 g PO BID PRN (Reason: Constipation) RF: 0 pantoprazole 40 mg Tablet,Delayed Release (Dr/Ec) 40 mg PO QAM RF: 0 ergocalciferol (vitamin D2) [Vitamin D2] 50,000 unit capsule 50,000 unit PO WK RF: 0 Leo Caps 1 mg Capsule 1 cap PO QPM RF: 0 albuterol sulfate [Proventil HFA] 90 mcg/actuation HFA aerosol inhaler 2 puff inhalation Q4H PRN (Reason: Wheezing) RF: 0 lamotrigine [Lamictal] 100 mg tablet 100 mg PO QPM RF: 0 bisacodyl 5 mg Tablet 10 mg PO DAILY PRN (Reason: Constipation) RF: 0 insulin lispro [Admelog SoloStar U-100 Insulin] 100 unit/mL insulin pen See Rx Instructions .ROUTE .COMPLEX RF: 0 levetiracetam 500 mg tablet 500 mg PO BID RF: 0 nystatin 100,000 unit/mL Suspension 10 ml PO QID Qty: 480 RF: 0 Referrals Referrals: Mitchel Santo MD [Primary Care Provider] - Discharge Problem: Vomiting Qualifiers: Vomiting type: unspecified Vomiting Intractability: intractable Nausea presence: with nausea Qualified Code(s): R11.2 - Nausea with vomiting, unspecified Abdominal pain Qualifiers: Abdominal location: generalized Qualified Code(s): R10.84 - Generalized abdominal pain The scribe's documentation has been prepared under my direction and personally reviewed by me in its entirety. I confirm that the note above accurately reflects all work, treatment, procedures, and medical decision making performed by me.
[2019-08-01 19:29] LABS: INR 1.1 (0.9-1.1); Prothrombin Time 10.9 Seconds (9.0-12.0)
[2019-08-01 19:34] LABS: Bacteria Urine Automated Negative (Negative); Cast Urine Automated 0 /lpf (0-5); Epithelial Cell Urine Auto >30 /lpf (0-5); RBC Urine Automated 0-4 /hpf (0-4)
--- NOTE | 2019-08-01 19:42 | CT Scan Report ---
CT abd pelvis wo con CT DOSE: 287.21 mGy.cm HISTORY: Pain. Nausea. Vomiting. pain, nausea, vomiting TECHNIQUE: Multiaxial CT images of the abdomen and pelvis were performed without contrast. A dose lo wering technique was utilized adhering to the principles of ALARA. COMPARISON STUDY: 06/20/2019 lung bases are clear. Liver spleen and pancreas are unremarkable. There h as been a cholecystectomy. Nonobstructing nephrocalcinosis is again noted. There is no evidence for renal hydronephrosis. Bowel pattern is considered nonobstructive. There is a 3 cm right ovarian cyst. There is an intrauterine device present within the uterus. Bladder is midline. FINDINGS: 1. 3 cm right ovarian cyst. 2. Otherwise negative abdomen and pelvis. 3. Nonobstructing bilateral renal nephrocalcinosis. IMPRESSION: No significant abnormality identified within the abdomen or pelvis. ACT 112: Negative or not required by law. The above report was generated using voice recognition software. It may contain grammatical, syntax or spelling errors. Electronically signed by: Kasi Alan M.D. 08/01/2019 7:40 PM
[2019-08-01 19:43] LABS: Alanine Aminotransferase 72 U/L (12-78); Albumin Globulin Ratio 0.7 (0.9-2); Albumin Level 3.4 gm/dl (3.4-5.0); Alkaline Phosphatase 161 U/L (45-117); Aspartate Aminotransferase 33 U/L (15-37); Bilirubin,Total 0.4 mg/dl (0.2-1); Blood Urea Nitrogen 48 mg/dl (7-18); Carbon Dioxide 22 mmol/L (21-32); Chloride 94 mmol/L (98-107); Est GFR (African American) 21.4; Est GFR (Non-African American) 18.5; Globulin 4.7 gm/dl (2.5-4.0); Glucose 552 mg/dl (70-99); Lipase 110 U/L (73-393); Magnesium 2.5 mg/dl (1.8-2.4); Potassium 5.2 mmol/L (3.5-5.1); Sodium 128 mmol/L (136-145); Total Protein 8.1 gm/dl (6.4-8.2); Troponin I < 0.015 ng/ml (0-0.045)
[2019-08-01] MEDS ORDERED: INSULIN REGULAR 250 UNITS in SODIUM CHLORIDE 0.9% 247.5 ML IV SCH ×2 (20:00→22:25)
[2019-08-01 20:05] LABS: Beta-Hydroxybutyrate 21.52 mg/dl (0.2-2.81)
[2019-08-01] MEDS ORDERED: NovoLIN-R BOLUS FROM BAG IV ONE (20:30)
[2019-08-01] MEDS ORDERED: INSULIN ASPART 100 UNITS/ML 3 ML PEN SC SCH (21:00)
[2019-08-01] MEDS ORDERED: ALBUTEROL HFA 8 GM INHALER INH PRN (22:25)
[2019-08-01] MEDS ORDERED: LORazepam 1 MG/2 ML VIAL IV PRN (22:25)
[2019-08-01] MEDS ORDERED: POLYETHYLENE (MIRALAX) 17 GM PACK PO PRN (22:25)
[2019-08-01] MEDS ORDERED: ACETAMINOPHEN 325 MG TAB PO PRN (22:25)
[2019-08-01] MEDS ORDERED: ONDANSETRON INJ 2 MG/ML 2 ML VIAL IV PRN (22:25)
[2019-08-01] MEDS ORDERED: bisacodyL 10 MG SUPP PR PRN (22:25)
[2019-08-01] MEDS ORDERED: DC ALL PREVIOUSLY ORDERED DIABETES MEDS ONE (22:25)
[2019-08-01] MEDS ORDERED: DKA GOAL RANGE 150-250 mg/dl ONE (22:25)
[2019-08-01] MEDS ORDERED: NITROGLYCERIN SL 0.4 MG/TAB TAB SL PRN (22:25)
[2019-08-01] MEDS ORDERED: PIPERACILL/TAZOBAC CONSULT ACTIVE PRN (22:25)
[2019-08-01] MEDS ORDERED: PHARMACY GLYCEMIC MGMT CONSULT PRN (22:42)
[2019-08-01] MEDS ORDERED: bisacodyL 5 MG TABEC PO PRN (22:48)
[2019-08-01] MEDS: HYDROmorphone INJ 0.5 MG/0.5 ML SYR IV PRN (22:59)
[2019-08-01] MEDS ORDERED: PIPERACILLIN/TAZOBACTAM 3.375 GM in DEXTROSE 5% 100 ML IV ONE (23:00)
[2019-08-01] MEDS ORDERED: GLUCAGON FOR INJ 1 MG VIAL SQ PRN (23:00)
[2019-08-01] MEDS ORDERED: CARBOHYDRATES FOR HYPOGLYCEMIA PO PRN (23:00)
[2019-08-01] MEDS ORDERED: GLUCOSE 10 TABS/TUBE PO PRN (23:00)
[2019-08-01] MEDS ORDERED: GLUCOSE 40% GEL 15 GM TUBE PO PRN (23:00)
[2019-08-01] MEDS ORDERED: DEXTROSE 50% 50 ML SYRINGE IV PRN (23:00)
[2019-08-01] MEDS ORDERED: HydrALAZINE HCL 20 MG/ML VIAL IV PRN (23:12)
[2019-08-01] MEDS: TRAZODONE HCL 50 MG TAB PO PRN (23:22)
[2019-08-01] MEDS: PENDING D5 1/2NS+20mEq KCL IVF SCH (23:23)
[2019-08-01] MEDS: PENDING 1/2NSS+20mEq KCL IVF SCH (23:23)
[2019-08-01 23:35] LABS: BUN Creatinine Ratio 17.2 (10-20); Calcium 8.7 mg/dl (8.5-10.1); Creatinine Clr Calc Pharmacy 20.2 ml/min; Est GFR (African American) 23.5; Est GFR (Non-African American) 20.3; Magnesium 2.2 mg/dl (1.8-2.4)
--- NOTE | 2019-08-01 23:44 | History and Physical Report ---
DATE OF ADMISSION: 08/01/2019 CHIEF COMPLAINT: Nausea, vomiting, abdominal pain. 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 treated with biliary sphincterotomy and balloon sphincteroplasty, history of left basal ganglia stroke in November 2018, anemia of chronic kidney disease, bipolar disorder, hypertension, history of CAD, labile hypertension, orthostatic hypotension, history of urinary retention, generalized seizures, hemiplegia affecting the right dominant side, iron deficiency anemia, noncompliance with medical treatment, schizophrenia, ambulatory dysfunction who was recently at [facility] with DKA, the patient admission on 07/24/2019, discharged on 07/28/2019 and total dental extraction on 07/29/2019 as outpatient. The patient saying she has a lot of pain in the dental extraction sites. She is not eating much. Says taking her insulin, but sugars were still running high. She is having nausea, vomiting and abdominal pain, so she came to the [facility] ER. The patient is on oxycodone, amoxicillin since tooth extraction, but is not helping her. She is on dialysis on Tuesdays, , Saturdays. She did not go today. She has been feeling sick with vomiting. Denies any chest pain, no shortness of breath. Gets dry cough. Denies any fevers but feeling cold, has some headache with some dizziness. No runny nose. Abdominal pain in the epigastric region. Denies any diarrhea or constipation. No rash. She says she is walking okay in the house and hemodynamically stable. Blood sugars in the ER were 552, anion gap 12, potassium 5.2, sodium 128, creatinine 2.8, beta hydroxybutyrate acid 21. Lipase 110. CT of abdomen and pelvis unremarkable. Urinalysis positive for +3 protein. The patient getting started on insulin drip protocol in the ER. ALLERGIES: FISH CONTAINING PRODUCTS, LATEX. PAST MEDICAL HISTORY: As mentioned above. 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 MEDICATIONS: As per the patient Tylenol 325 mg p.o. q. 4 hours p.r.n., albuterol 2 puffs q. 4 hours p.r.n., amoxicillin 500 mg p.o. q. 6 hours, Abilify 5 mg p.o. at bedtime, atorvastatin 40 mg p.o. at bedtime, bisacodyl 10 mg p.o. daily p.r.n., Coreg 12.5 p.o. b.i.d., vitamin D 50,000 units p.o. weekly, insulin Lantus 12 units subcutaneous daily, insulin lispro as directed, Lamictal 100 mg p.o. q.p.m., Keppra 500 mg p.o. b.i.d., multivitamin 1 tablet a.m., nystatin solution 10 mL q.i.d., oxycodone/acetaminophen 5/325 mg 1 tablet q. 6 hours p.r.n., Protonix 40 mg p.o. a.m., Miralax 17gm mg p.o. b.i.d. p.r.n., renal caps 1 capsule p.o. q.a.m., Zoloft 100 mg p.o. at bedtime, trazodone 150 mg p.o. at bedtime p.r.n. FAMILY HISTORY: Significant for father has diabetes, eye problems, heart disorder. Mother has hypertension, heart disorder, eye problems. Niece has a breast cancer. Maternal aunt has breast cancer, niece has ovarian cancer. Sister has thyroid disorder. SOCIAL HISTORY: . Former smoker, quit in March 2016. Smoked 0.2 packs a day for 21 years. No alcohol use, no drug use. REVIEW OF SYMPTOMS: As per HPI. Rest of review of symptoms negative. PHYSICAL EXAMINATION: GENERAL: The patient is of moderate built, not in acute distress. VITAL SIGNS: Temperature 36.9, pulse 96, respiratory rate 17, blood pressure 218/88, oxygen 97% on room air. HEENT: No pallor, no icterus. Pupils equal, round, reactive to light. Mouth: No obvious erythema or drainage seen at tooth extraction sites. NECK: No JVD, no neck masses, no carotid bruits. CARDIOVASCULAR: S1, S2 heard, regular rate and rhythm, no murmur, no gallop. RESPIRATORY SYSTEM: Normal AP diameter. No accessory muscle use. No wheezing, no crackles. ABDOMEN: Soft, bowel sounds present. Nontender. No distention. CENTRAL NERVOUS SYSTEM: Alert and oriented. Obeys commands. Speech is clear. Moves extremities. EXTREMITIES: No edema, no erythema. LABORATORY DATA: WBC 4.7, hemoglobin 9.7, hematocrit 28.7, platelets 190. PT 10.9, INR 1.1. Sodium 128, potassium 5.2, chloride 94, bicarbonate 22, anion gap 12, BUN 40, creatinine 2.8, serum glucose 552. Lactate 0.8, calcium 9, phosphorus 4, magnesium 2.5, total bilirubin 0.4, AST 33, ALT 72, alkaline phosphatase 161. Troponin I less than 0.015. Lipase 110. Beta hydroxybutyric acid 21.52. Urinalysis positive for +3 protein, +[address] of the abdomen and pelvis, 3 cm right ovarian cyst, otherwise negative abdomen and pelvis, nonobstructing bilateral renal nephrocalcinosis. EKG: Normal sinus rhythm, rate of 84 prolonged QT at 489, no significant change was found. ASSESSMENT AND PLAN: This is a 48-year-old female who presents with nausea, vomiting, abdominal pain and found to be in early diabetic ketoacidosis. 1. Early diabetic ketoacidosis: Possible cause is the recent tooth extraction and pain and stress. No obvious source of infection. Started on DKA protocol with insulin drip protocol . Received 1lts of IV NS in ER. Patient is on dialysis. We will continue with maintenance fluids with IV normal saline at 75 mL per hour and change to add potassium and D5 as per protocol. Close monitor of the labs and the blood sugars. Pharmacy consult and diabetic education consult. Closely monitor on tele floor. 2. Recent dental extractions, complete tooth extractions. No obvious signs of infection noted but patient has significant pain. Will continue her home p.o. pain medication and IV morphine p.r.n. She is on amoxicillin, which we will hold and place on IV Zosyn. She had dental tooth extraction at [place], [place], [facility] oral surgeon, phone number [phone]. If any questions, we will call them on Saturday. 3. Hypertension. Blood pressure running high. Will continue her home medications of Coreg and place on IV hydralazine p.r.n. 4. History of CVA on statin. 5. History of seizures, placed on IV Keppra and IV Ativan p.r.n. There is a question of seizure episode in the ER, but patient seems to be fine now. 6.History of depression, anxiety and bipolar: Continue her Zoloft, Lamictal, Abilify. 7. Hyperlipidemia. Continue statin. 8. Gastroesophageal reflux disease. Continue PPI. 9. History of end-stage renal disease, on hemodialysis. Missed dialysis today. Nephrology consult. Monitor for volume overload as the patient getting fluids. 10. Diastolic congestive heart failure: Getting fluids, monitor for fluid overload. 11. Diabetic gastroparesis. We will monitor. 12. Prolonged QT. Avoid QT prolonging drugs. Follow EKG in a.m. 12. Recent transaminitis and pancreatitis status post ERCP showing sphincter of Oddi dysfunction status post sphincterectomy. Currently AST and ALT are in normal limits. Alkaline phosphatase 161. Follow the repeat labs. 13. Deep venous thrombosis prophylaxis, sequential compression devices. DISPOSITION: Closely monitor in the tele floor. Level 1 full code. MTDD
[2019-08-01 23:59] LABS: Phosphorus 2.9 mg/dl (2.5-4.9)
[2019-08-02] MEDS: OXYCODONE/ACETAMINOPHEN 5mg/325mg TAB PO PRN ×4 (00:11→20:32)
[2019-08-02] MEDS ORDERED: Nursing to Pharmacy Communication ONE (00:25)
[2019-08-02] MEDS: PENDING D5 1/2NS+20mEq KCL IVF SCH (00:28)
[2019-08-02] MEDS: PENDING 1/2NSS+20mEq KCL IVF SCH ×6 (00:28→10:25)
[2019-08-02] MEDS ORDERED: D5W AND 1/2NSS + 20MEQ KCL 20 MEQ/1,000 ML BAG IV SCH (00:30)
[2019-08-02 02:44] LABS: BUN Creatinine Ratio 17.4 (10-20); Calcium 8.5 mg/dl (8.5-10.1); Creatinine Clr Calc Pharmacy 20.2 ml/min; Est GFR (African American) 23.5; Est GFR (Non-African American) 20.3; Magnesium 2.3 mg/dl (1.8-2.4); Potassium 3.6 mmol/L (3.5-5.1)
[2019-08-02 02:50] LABS: Alanine Aminotransferase 55 U/L (12-78); Albumin Level 2.7 gm/dl (3.4-5.0); Alkaline Phosphatase 116 U/L (45-117); Aspartate Aminotransferase 25 U/L (15-37); Bilirubin Direct < 0.1 mg/dl (0-0.2); Bilirubin,Total 0.4 mg/dl (0.2-1); Total Protein 6.5 gm/dl (6.4-8.2)
[2019-08-02] MEDS: HYDROmorphone INJ 0.5 MG/0.5 ML SYR IV PRN ×2 (04:51→09:03)
[2019-08-02 06:19] LABS: BUN Creatinine Ratio 17.7 (10-20); Calcium 8.5 mg/dl (8.5-10.1); Est GFR (African American) 24.8; Est GFR (Non-African American) 21.4; Magnesium 2.4 mg/dl (1.8-2.4); Potassium 3.8 mmol/L (3.5-5.1)
[2019-08-02 06:20] LABS: Phosphorus 3.5 mg/dl (2.5-4.9)
[2019-08-02] MEDS ORDERED: INSULIN ASPART 100 UNITS/ML 3 ML PEN SC SCH ×2 (06:30→07:30)
[2019-08-02] MEDS ORDERED: INSULIN GLARGINE SOLOSTAR 100 UNITS/ML 3 ML PEN SC ONE (07:30)
[2019-08-02] MEDS: carvediloL 12.5 MG TAB PO SCH ×2 (08:08→17:03)
[2019-08-02] MEDS: PANTOprazole 40 MG TAB PO SCH (08:08)
[2019-08-02] MEDS: MULTIVITAMIN TAB PO SCH (08:08)
[2019-08-02] MEDS: NYSTATIN SUSP 500,000 U/5 ML UDC PO SCH ×4 (08:09→20:34)
[2019-08-02] MEDS: INSULIN ASPART 100 UNITS/ML 3 ML PEN SC SCH ×2 (10:11→11:57)
[2019-08-02 11:27] LABS: BUN Creatinine Ratio 17.3 (10-20); Calcium 8.3 mg/dl (8.5-10.1); Creatinine Clr Calc Pharmacy 20.4 ml/min; Est GFR (African American) 23.9; Est GFR (Non-African American) 20.6; Magnesium 2.2 mg/dl (1.8-2.4); Phosphorus 3.6 mg/dl (2.5-4.9); Potassium 4.5 mmol/L (3.5-5.1)
[2019-08-02 11:38] LABS: Beta-Hydroxybutyrate 16.99 mg/dl (0.2-2.81)
--- NOTE | 2019-08-02 12:04 | Nephrology Consultation ---
Date of Consultation August 02, 2019 Assessment & Plan (1) End-stage renal disease (ESRD): Patient with ESRD on HD TTS. She reports having 3hrs of dialysis Yesterday. Electrolytes are stable with no signs of volume overload. No indication for HD today. Next HD will be Saturday unless clinical status changes to warrant urgent HD (2) Hyperglycemia due to type 1 diabetes mellitus: Exacerbated by recent tooth extraction. Blood sugars improving with insulin. Stop iv fluids as patient is at risk of volume overload being a dialysis patient History of Present Illness Reason for Consultation: ESRD on HD Requesting Physician: Jorge Brasher MD Attending Physician: Jorge Brasher MD History of Present Illness This is a 48YoF with history of ESRD from diabetic nephropathy on HD TTS at [facility] who was admitted with DKA being seen for dialysis support. Other past medical history include brittle DM1, gastroparesis, bipolar disorder, chronic abdominal pain, acute L basal ganglia stroke November 2018 and recurrent hospitalizations for uncontrolled diabetes. She recently had all her teeth extracted at [place] and is complaining of pain in the gums. Blood sugars are still high but improving. No SOB. She is getting IV fluids at 80ml/hr. She reports having 3hrs of HD yesterday. Allergies Allergy/AdvReac Type Severity Reaction Status Date / Time Fish Containing Products Allergy Mild Hives Verified 06/20/19 11:19 latex Allergy Mild hives Verified 06/20/19 11:19 Home Medications Home Medications Medication Instructions Recorded Confirmed Type Brimley Caps 1 cap PO QPM 12/19/18 08/01/19 History albuterol sulfate [Proventil HFA] 2 puff INHALATION Q4H PRN 12/19/18 08/01/19 History bisacodyl 10 mg PO DAILY PRN 12/19/18 08/01/19 History carvedilol 12.5 mg PO BIDM 12/19/18 08/01/19 History ergocalciferol (vitamin D2) 50,000 unit PO WK 12/19/18 08/01/19 History [Vitamin D2] insulin lispro [Admelog SoloStar See Rx Instructions .ROUTE .COMPLEX 12/19/18 08/01/19 History U-100 Insulin] lamotrigine [Lamictal] 100 mg PO QPM 12/19/18 08/01/19 History multivitamin 1 tab PO QAM 12/19/18 08/01/19 History pantoprazole 40 mg PO QAM 12/19/18 08/01/19 History polyethylene glycol 3350 [Miralax] 17 g PO BID PRN 12/19/18 08/01/19 History aripiprazole 5 mg PO HS 05/20/19 08/01/19 History bisacodyl 10 mg VA DAILY PRN #2 ea 05/20/19 08/01/19 Rx levetiracetam 500 mg PO BID 06/20/19 08/01/19 History nystatin 10 ml PO QID #480 ml 06/25/19 08/01/19 Rx acetaminophen 325 mg PO Q4H PRN 08/01/19 08/01/19 History amoxicillin 500 mg PO Q6H 08/01/19 08/01/19 History atorvastatin 40 mg PO HS 08/01/19 08/01/19 History insulin glargine [Lantus Solostar 12 unit SUBCUT DAILY 08/01/19 08/01/19 History U-100 Insulin] oxycodone-acetaminophen See Rx Instructions .ROUTE .COMPLEX 08/01/19 08/01/19 History sertraline 100 mg PO HS 08/01/19 08/01/19 History trazodone 150 mg PO HS PRN 08/01/19 08/01/19 History Patient History Medical History Anemia due to chronic kidney disease (Chronic) Arteriovenous fistula for hemodialysis in place, primary (Chronic) Bipolar disorder (Chronic) CKD (chronic kidney disease) stage V requiring chronic dialysis Coronary artery disease (Chronic) "2015 - cardiac catheterization showing nonobstructive coronary disease Stress test 06/2017 - possible small area of ischemia in the anterior wall" CVA (cerebral vascular accident) (Chronic) 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 history of CVA in 2018 Residual R sided weakness Depression (Chronic) Diabetic gastroparesis (Chronic) Diastolic heart failure (Chronic) DM type 1 (diabetes mellitus, type 1) (Chronic) ESRD (end stage renal disease) on dialysis GERD (gastroesophageal reflux disease) (Chronic) History of GI bleed (Chronic) Hyperlipidemia (Chronic) Hypertension (Chronic) Seizure (Chronic) Surgical History Hx of appendectomy (Inactive) Hx of cholecystectomy (Inactive) Hx of tubal ligation (Inactive) Family History Mother Coronary heart disease Hypertension Father Coronary heart disease Other No significant family history Social History Preferred Language: Faroese Communication Ability: Impaired Communication Ability Comment: IMPAIRED DUE TO MOUTH PAIN, RECENT TOOTH EXTRACTION Special Event Assistant Required: No Beliefs That Will Affect Care: None marital status: Current Living Situation: Spouse current occupational status: unemployed Other Information That Helps Us Care for You: No Feels Safe at Home: Yes Safety Concerns: Feels Safe At This Time Smoking Status: Former smoker Do You Dip or Chew Tobacco: No ; Second Hand Exposure: No ; Tobacco Cessation Education Requested by Patient: No Hx Alcohol Use: No Hx Substance Use: No Review of Systems Review of Systems: All systems reviewed & are unremarkable except as noted in HPI & below Physical Exam Physical Exam: General exam: Appears comfortable, no acute distress HEENT: Pupils are equal and reactive to light Neck: No JVD, neck is supple trachea is midline Respiratory system: Clear breath sounds bilaterally. Gastrointestinal: Abdomen is soft, non distended, non tender, bowel sounds are present CVS: Regular rate and rhythm. No murmurs, rubs or gallops Musculoskeletal: No joint or muscle tenderness Extremities: Non tender, no edema, peripheral pulses are present Neuro: Oriented, no tremors, no focal neurological deficits Skin: No rashes Access: right AVF, good bruit Results & Data Vital Signs (Past 12 Hours) Vital Signs Temp Pulse Pulse Resp BP Pulse Ox 08/02/19 11:42 36.7 C 81 18 165/77 H 100 08/02/19 08:04 36.6 C 83 20 194/67 H 100 08/02/19 03:56 36.6 C 73 18 165/76 H 97 Laboratory Results 08/02/19 10:37 08/01/19 08/01/19 08/01/19 18:56 18:56 22:37 WBC 4.71 L RBC 3.09 L MCV 92.9 MCH 31.4 MCHC 33.8 Plt Count 190 Phosphorus 4.0 2.9 D Albumin 3.4 08/02/19 08/02/19 08/02/19 02:09 02:09 05:23 WBC RBC MCV MCH MCHC Plt Count Phosphorus 3.0 3.5 Albumin 2.7 L 08/02/19 10:37 WBC RBC MCV MCH MCHC Plt Count Phosphorus 3.6 Albumin
[2019-08-02] MEDS ORDERED: INSULIN HUMAN REGULAR PER UNIT 3 UNITS in SYRINGE 2.97 ML IV ONE (12:15)
[2019-08-02] MEDS: NSS + 20MEQ KCL 20 MEQ/1,000 ML BAG IV SCH (12:24)
--- NOTE | 2019-08-02 13:47 | Hospitalist Progress Note ---
Date of Service August 02, 2019 Assessment & Plan (1) Abdominal pain: History of type 1 diabetes and presented with abdominal pain, nausea with vomiting CT of the abdomen pelvis remained unremarkable No other sources of infection identified except status post recent teeth extraction Received intravenous antibiotic with Zosyn on admission Abdominal pain is resolved Denies any nausea no vomiting Will start full liquid diet and advance as tolerated (2) Pain, dental: Recent complete teeth extraction Has been complaining of significant pain No obvious infection noted on examination We will continue pain medications as prescribed dentist Antibiotic was changed to Augmentin (3) Hyperglycemia due to type 1 diabetes mellitus: Presented with hyperglycemia with a blood sugar more than 350 No evidence of DKA except beta hydroxybutyric acid was high Received intravenous insulin Now back on her usual regimen Continue current management (4) End-stage renal disease (ESRD): Has been on hemodialysis Creatinine is around 2.5 Appreciate nephrology input and recommendation Next dialysis on Saturday (5) Hypertension: Remains at the higher range with systolic of 165 Continue her home medication (6) Seizure: We will continue her seizure medication (7) CVA (cerebral vascular accident): No acute issue Recent transaminitis Monitor LFTs DVT prophylax We will start heparin Admission and Anticipated Discharge Date Admission Date: August 01, 2019 Subjective 08/02/2019 The patient was seen and examined in the ED telemetry unit She has type 1 diabetes with increased renal disease on hemodialysis was admitted yesterday with nausea, vomiting with abdominal pain Complicated by recent total extraction of teeth Denies any abdominal pain this morning but has pain in the mouth Review of Systems Review of Systems: All systems reviewed and are unremarkable except as noted below Ear, Nose, Mouth, Throat: + dental pain (Significant dental pain secondary to extraction of all the teeth recent) Gastrointestinal: no abdominal pain, no bloating, no nausea and no vomiting Physical Exam Physical Exam: Lying in bed with some discomfort in the mouth Constitutional: well developed; no acute distress and not ill appearing Eyes: PERRL, conjunctivae normal, anicteric sclerae ENMT: external ear and nose normal, oropharynx normal Neck: trachea midline, no thyromegaly Respiratory: normal respiratory effort; no respiratory distress Auscultation: lungs clear to auscultation bilaterally Cardiovascular: Rate/Rhythm: regular rate and regular rhythm Heart Sounds: no murmur Gastrointestinal (Abdomen): Inspection/Auscultation: abdomen normal to inspection and normal bowel sounds; abdomen not distended Percussion/Palpation: + abdomen tender (Minimally tender in the epigastrium) and abdomen soft Musculoskeletal: No acute arthritis involving any joints Neurologic: Alert, awake and oriented x3. No focal sensory or motor deficit appreciated Results & Data ([facility]) Vital Signs (Past 12 Hours) Vital Signs Temp Pulse Pulse Resp BP Pulse Ox 08/02/19 11:42 36.7 C 81 18 165/77 H 100 08/02/19 08:04 36.6 C 83 20 194/67 H 100 08/02/19 03:56 36.6 C 73 18 165/76 H 97 Laboratory Results Short CBC 08/01/19 Range/Units 18:56 WBC 4.71 L (4.8-10.8) K/uL Hgb 9.7 L (12.0-16.0) g/dL Hct 28.7 L (37-47) % Plt Count 190 (130-400) K/uL BMP 08/01/19 08/01/19 08/02/19 18:56 22:37 02:09 Sodium 128 L 134 L 137 Potassium 5.2 H 4.0 D 3.6 Chloride 94 L 102 106 Carbon Dioxide 22 24 25 BUN 48 H 46 H 46 H Creatinine 2.85 H 2.64 H 2.64 H Glucose 552 H* 322 H* 118 H Calcium 9.0 8.7 8.5 08/02/19 08/02/19 05:23 10:37 Sodium 136 134 L Potassium 3.8 4.5 D Chloride 105 101 Carbon Dioxide 25 23 BUN 45 H 45 H Creatinine 2.53 H 2.61 H Glucose 86 340 H* Calcium 8.5 8.3 L Cardiac Enzymes 08/01/19 Range/Units 18:56 Troponin I < 0.015 (0-0.045) ng/ml Liver Function 08/01/19 08/02/19 Range/Units 18:56 02:09 Total Bilirubin 0.4 0.4 (0.2-1) mg/dl Direct Bilirubin < 0.1 (0-0.2) mg/dl AST 33 25 (15-37) U/L ALT 72 55 (12-78) U/L Alkaline Phosphatase 161 H 116 (45-117) U/L Albumin 3.4 2.7 L (3.4-5.0) gm/dl Urine 08/01/19 Range/Units Unknown Urine Color Yellow Urine Appearance Clear (Clear) Urine pH 6.5 (4.5-7.5) Ur Specific Holmes 1.020 (1.000-1.030) Urine Protein 3+ H (Negative) Urine Glucose (UA) 3+ H (Negative) Medications Administered Current Inpatient Medications Acetaminophen (Tylenol) 650 mg PO Q4H PRN PRN Reason: Pain or Fever Stop: 08/31/19 22:24 Albuterol (Ventolin Hfa) 2 puffs INH Q4H PRN PRN Reason: Wheezing Stop: 08/31/19 22:24 Amoxicillin/Clavulanate Potassium (Augmentin 500mg) 1 tab PO DAILY@1700 SARAH; Protocol Stop: 08/12/19 16:59 Aripiprazole (Abilify) 5 mg PO HS SARAH Stop: 09/01/19 20:59 Atorvastatin Calcium (Lipitor) 40 mg PO HS SARAH Stop: 09/01/19 20:59 Bisacodyl (Dulcolax) 10 mg MN DAILY PRN PRN Reason: constipation Stop: 08/31/19 22:24 Bisacodyl (Dulcolax) 10 mg PO DAILY PRN PRN Reason: Constipation Stop: 08/31/19 22:47 Carvedilol (Coreg) 12.5 mg PO BIDM SARAH Stop: 09/01/19 07:59 Last Admin: 08/02/19 08:08 Dose: 12.5 mg Documented by: Dextrose (Dextrose 50%) 25 - 50 ml IV UD PRN; Protocol PRN Reason: Hypoglycemia Protocol Stop: 08/31/19 22:59 Glucagon (Glucagen) 1 mg SQ UD PRN; Protocol PRN Reason: Hypoglycemia Protocol Stop: 08/31/19 22:59 Glucose (Glucose 40%) 15 - 30 gm PO UD PRN; Protocol PRN Reason: Hypoglycemia Protocol Stop: 08/31/19 22:59 Glucose (Dex4 Glucose) 4 - 8 tabs PO UD PRN; Protocol PRN Reason: Hypoglycemia Protocol Stop: 08/31/19 22:59 Hydralazine HCl (Hydralazine Hcl) 5 mg IV Q6H PRN PRN Reason: Hypertension Stop: 08/31/19 23:11 Hydromorphone HCl (Dilaudid) 0.5 mg IV Q4H PRN PRN Reason: Pain Stop: 08/15/19 22:24 Last Admin: 08/02/19 09:03 Dose: 0.5 mg Documented by: Levetiracetam 500 mg/ Dextrose 105 mls @ 440 mls/hr IV BID SARAH Stop: 08/31/19 22:24 Last Infusion: 08/02/19 08:30 Dose: Infused Documented by: Lorazepam (Ativan) 1 mg in 2 mls @ 2 mls/min IV Q2H PRN PRN Reason: Breakthrough Seizures Stop: 08/31/19 22:24 Potassium Chloride/Sodium Chloride (Normal Saline W/20 Meq Kcl) 20 meq in 1,000 mls @ 75 mls/hr IV .[id number] SARAH Stop: 09/01/19 12:29 Last Admin: 08/02/19 12:24 Dose: 75 mls/hr Documented by: Insulin Aspart (Novolog Flexpen) 0 units SC Q4 SARAH Stop: 09/01/19 07:59 Last Admin: 08/02/19 11:57 Dose: 9 units Documented by: Lamotrigine (Lamictal) 100 mg PO QPM SARAH Stop: 09/01/19 20:59 Miscellaneous (Carbohydrates For Hypoglycemia) 15 - 30 gm PO UD PRN PRN Reason: Hypoglycemia Treatment Stop: 08/31/19 22:59 Miscellaneous Information (Consult Glycemic Management Pharmacy) 1 ea N/A UD PRN PRN Reason: Consult Stop: 08/31/19 22:41 Multivitamins (Multivitamin Tab) 1 tab PO QAM SARAH Stop: 09/01/19 08:59 Last Admin: 08/02/19 08:08 Dose: 1 tab Documented by: Nitroglycerin (Nitrostat) 0.4 mg SL UD PRN PRN Reason: Chest Pain Stop: 08/31/19 22:24 Nystatin (Mycostatin) 10 ml PO QID SARAH Stop: 08/12/19 08:59 Last Admin: 08/02/19 12:25 Dose: 10 ml Documented by: Ondansetron HCl (Zofran) 4 mg IV Q6H PRN PRN Reason: Nausea Stop: 08/31/19 22:24 Oxycodone/Acetaminophen (Percocet 5mg/325mg) 1 - 2 tab PO Q6H PRN PRN Reason: Pain Stop: 08/15/19 22:24 Last Admin: 08/02/19 12:29 Dose: 2 tab Documented by: Pantoprazole Sodium (Protonix) 40 mg PO QAM SARAH Stop: 09/01/19 08:59 Last Admin: 08/02/19 08:08 Dose: 40 mg Documented by: Polyethylene Glycol (Miralax Powder Packet) 17 gm PO BID PRN PRN Reason: Constipation Stop: 08/31/19 22:24 Sertraline HCl (Zoloft) 100 mg PO HS SARAH Stop: 09/01/19 20:59 Trazodone HCl (Desyrel) 150 mg PO HS PRN PRN Reason: Sleep Stop: 08/31/19 22:24 Last Admin: 08/01/19 23:22 Dose: 150 mg Documented by: Vitamin B Complex/Folic Acid (Nephrocaps) 1 cap PO QPM SARAH Stop: 09/01/19 20:59 (1) Abdominal pain Abdominal location: generalized Qualified Code(s): R10.84 - Generalized abdominal pain
--- NOTE | 2019-08-02 14:40 | Pharmacy Report ---
Glycemic Control Consultation - Date of Service August 02, 2019 - Scope Scope: Glycemic Pharmacist consulted by Dr Thurston on 08/01/2019 for glycemic control and to write orders per [facility] inpatient glycemic control protocol - Objective Weight: 57.8 kg Accuchecks BSG (last 24hrs): 08/01/19 08/01/19 08/01/19 18:45 18:56 20:16 Glucose 552 H* POC Glucose 560 H* 503 H* 08/01/19 08/01/19 08/01/19 21:11 22:37 22:49 Glucose 322 H* POC Glucose 482 H* 346 H* 08/02/19 08/02/19 08/02/19 00:07 01:35 01:51 Glucose POC Glucose 217 H 135 H 121 H 08/02/19 08/02/19 08/02/19 02:09 02:49 04:13 Glucose 118 H POC Glucose 106 H 75 08/02/19 08/02/19 08/02/19 04:48 05:23 05:41 Glucose 86 POC Glucose 75 97 08/02/19 08/02/19 08/02/19 10:37 11:36 11:37 Glucose 340 H* POC Glucose 372 H* 369 H* 08/02/19 13:40 Glucose POC Glucose 266 H Laboratory Data (last 24hrs): 08/01/19 08/01/19 08/02/19 18:56 22:37 00:37 Potassium 5.2 H 4.0 D Carbon Dioxide 22 24 Anion Gap 12.0 H 8.0 Creatinine 2.85 H 2.64 H Est Cr Clr Drug Dosing Not Reportable 20.2 Beta-Hydroxybutyric Acd 21.52 H 1.22 08/02/19 08/02/19 08/02/19 02:09 05:23 10:37 Potassium 3.6 3.8 4.5 D Carbon Dioxide 25 25 23 Anion Gap 6.0 6.0 10.0 Creatinine 2.64 H 2.53 H 2.61 H Est Cr Clr Drug Dosing 20.2 21.0 20.4 Beta-Hydroxybutyric Acd 16.99 H - Recent Pertinent Medications Outpatient Anti-diabetic Regimen: * Lantus 12 units qAM plus Humalog 10 TIDM ... 4 with snacks * A1c N/A since patient is dialysis Risk Factors for Insulin Resistance: * IVF: D51/2 NS + 20 KCL @ 75 cc/hr (d/c'ed at noon) * Diet: full liquid - Assessment & Plan Assessment & Plan: ASSESSMENT: * Ms Luu is a 48 y/o F with a PMH of T1DM. Patient was admitted with hyperglycemia. She was on an insulin infusion until 0130 when it was stopped. BSGs stayed below 100 mg/dL. Lantus 10 units given at 0809. This dose was chosen because when patient was here back in June this dose was stable enough that it did not cause significant lows. Will use parameters for Novolog from last visit. * Patient still had very labile blood sugars throughout last hospitalization - though no significant lows. In prior hospitalizations, it appeared that once regular insulin was utilized, the patient's BSGs stabilized. Will switch to this for dinner. * BSG elevated at lunch most likely due to Dextrose infusion and gap between insulin infusion stop and Lantus being given. Small IV bolus given. Monitor. PLAN FOR INPATIENT GLYCEMIC CONTROL: * Basal insulin * Lantus 10 units SQ daily * Bolus insulin * NOVOLIN R per scale ACHS or Q6hrs while NPO * Goal Range: Low 120 mg/dL - High 160 mg/dL * Correction Factor: 25 mg/dL/unit * Nutritional / Prandial insulin per carb ratio of 1 unit per 15 grams CHO consumed * Please note that the plan above was derived based on current level of insulin resistance and hospital stress. These recommendations are appropriate for inpatient admission only. Plan of care upon discharge will need to be reassessed to avoid potential outpatient hypo/hyperglycemia. Thank you.
--- NOTE | 2019-08-02 16:55 | Electrocardiogram Report ---
Test Reason : Blood Pressure : / mmHG Vent. Rate : 084 BPM Atrial Rate : 084 BPM P-R Int : 154 ms QRS Dur : 082 ms QT Int : 414 ms P-R-T Axes : 051 -11 025 degrees QTc Int : 489 ms Normal sinus rhythm Possible Left atrial enlargement Left ventricular hypertrophy Poor R wave progression, consider anterior VA vs. lead placement vs. LVH Abnormal ECG When compared with ECG of 20-JUN-2019 11:15, No significant change was found Confirmed by Vu Mckeon ([id number]) on 08/02/2019 4:54:41 PM Referred By: REFERRED SELF Confirmed By:Richard Mckeon
[2019-08-02] MEDS: INSULIN HUMAN REGULAR SC SCH ×2 (17:00→20:28)
[2019-08-02] MEDS: AMOXICILLIN/CLAVULANATE 500 MG TAB PO SCH (17:02)
[2019-08-02] MEDS: ARIPiprazole 5 MG TAB PO SCH (20:33)
[2019-08-02] MEDS: lamoTRIgine 100 MG TAB PO SCH (20:34)
[2019-08-02] MEDS: ATORVASTATIN 40 MG TAB PO SCH (20:34)
[2019-08-02] MEDS: SERTRALINE HCL 100 MG TABLET PO SCH (20:35)
[2019-08-02] MEDS: NEPHROCAPS PO SCH (20:35)
[2019-08-02] MEDS: HEPARIN SOD 5,000 UNIT/0.5 ML VIAL SQ SCH (20:49)
[2019-08-03] MEDS ORDERED: INSULIN HUMAN REGULAR SC SCH (02:00)
[2019-08-03] MEDS: NSS + 20MEQ KCL 20 MEQ/1,000 ML BAG IV SCH ×2 (02:19→15:33)
[2019-08-03] MEDS: HYDROmorphone INJ 0.5 MG/0.5 ML SYR IV PRN ×3 (02:58→12:10)
[2019-08-03 07:02] LABS: Basophils # (auto) 0.03 K/uL (0-0.2); Basophils % (auto) 0.6 %; Eosinophils # (auto) 0.25 K/uL (0-0.5); Eosinophils % (auto) 4.8 %; Hematocrit (blood only) 27.3 % (37-47); Hemoglobin 8.8 g/dL (12.0-16.0); Immature Granulocytes # (auto) 0.01 K/uL (0.00-0.02); Immature Granulocytes % (auto) 0.2 %; Lymphocytes # (auto) 1.77 K/uL (1.2-3.4); Lymphocytes % (auto) 33.8 %; Mean Corpuscular Hemoglobin 30.7 pg (25-34); Mean Corpuscular Hgb Conc 32.2 g/dL (32-36); Mean Corpuscular Volume 95.1 fL (80-100); Mean Platelet Volume 10.8 fL (7.4-10.4); Monocytes # (auto) 0.49 K/uL (0.11-0.59); Monocytes % (auto) 9.4 %; Neutrophils # (auto) 2.68 K/uL (1.4-6.5); Neutrophils % (auto) 51.2 %; Platelet Count 346 K/uL (130-400); RDW Coefficient of Variation 16.6 % (11.5-14.5); RDW Standard Deviation 57.9 fL (36.4-46.3); Red Blood Count 2.87 M/uL (4.2-5.4); White Blood Count 5.23 K/uL (4.8-10.8)
[2019-08-03 07:04] LABS: RBC Morphology Unremarkable
[2019-08-03 07:14] LABS: Alanine Aminotransferase 56 U/L (12-78); Albumin Level 2.7 gm/dl (3.4-5.0); Aspartate Aminotransferase 53 U/L (15-37); BUN Creatinine Ratio 13.4 (10-20); Bilirubin Direct < 0.1 mg/dl (0-0.2); Blood Urea Nitrogen 32 mg/dl (7-18); Calcium 8.4 mg/dl (8.5-10.1); Carbon Dioxide 22 mmol/L (21-32); Chloride 109 mmol/L (98-107); Creatinine Clr Calc Pharmacy 22.7 ml/min; Est GFR (African American) 27.1; Est GFR (Non-African American) 23.4; Glucose 276 mg/dl (70-99); Sodium 137 mmol/L (136-145)
[2019-08-03 07:16] LABS: Alkaline Phosphatase 116 U/L (45-117); Bilirubin,Total 0.3 mg/dl (0.2-1); Total Protein 6.5 gm/dl (6.4-8.2)
[2019-08-03] MEDS ORDERED: INSULIN HUMAN REGULAR SC ONE ×2 (07:45→12:00)
[2019-08-03] MEDS ORDERED: INSULIN HUMAN REGULAR PER UNIT 3 UNITS in SYRINGE 2.97 ML IV ONE (07:45)
[2019-08-03] MEDS: MULTIVITAMIN TAB PO SCH (08:01)
[2019-08-03] MEDS: INSULIN GLARGINE SOLOSTAR 100 UNITS/ML 3 ML PEN SC SCH (08:01)
[2019-08-03] MEDS: NYSTATIN SUSP 500,000 U/5 ML UDC PO SCH ×4 (08:01→21:49)
[2019-08-03] MEDS: PANTOprazole 40 MG TAB PO SCH (08:01)
[2019-08-03] MEDS: carvediloL 12.5 MG TAB PO SCH (08:01)
[2019-08-03] MEDS ORDERED: carvediloL 12.5 MG TAB PO ONE (08:19)
--- NOTE | 2019-08-03 10:08 | Pharmacy Report ---
Pharmacy Glycemic Short Note 2 - Date of Service August 03, 2019 - Glycemic Short BSG Results (Last 24 hours): 08/02/19 08/02/19 08/02/19 10:37 11:36 11:37 Glucose 340 H* POC Glucose 372 H* 369 H* 08/02/19 08/02/19 08/02/19 13:40 16:03 20:11 Glucose POC Glucose 266 H 247 H 263 H 08/03/19 08/03/19 08/03/19 02:18 06:18 07:25 Glucose 276 H POC Glucose 70 324 H* 08/03/19 07:26 Glucose POC Glucose 343 H* Outpatient Anti-diabetic Regimen: * Lantus 12 units qAM * Humalog 10 units SC TIDM plus 4 units SC with snacks * A1c N/A since patient is dialysis Risk Factors for Insulin Resistance: * Possible dental infection (on Augmentin) * Diet: T1DM ASSESSMENT: * 48 y/o F with T1DM. Patient was admitted with hyperglycemia. She was on an insulin infusion until 08/02 @ 0130 when it was stopped. Lantus 10 units given at 0809. BSG's then rebounded yesterday 2nd insufficient overlap of IV insulin with Lantus. BSG's gradualy trended down yesterday and overnight BSG of 70 mg/dL noted, likely 2nd correctional regular insulin administered at HS. Patient received apple juice for the lower BSG overnight and now AM BSG this morning is elevated * Will not adjust Lantus despite overnight low BSG as this is likely due to regular insulin correctional at HS * Will loosen regular insulin correction factor but tighten CHO ratio * Will correct severe AM and lunch hyperglycemia with low-dose IV insulin * Last admission, patient had very labile blood sugars throughout the hospitalization, though no significant lows. Anticipate that tight glycemic control may prove to be difficult this admission as well PLAN FOR INPATIENT GLYCEMIC CONTROL: * IV regular insulin 3 units x1 with breakfast and 4 units x1 with lunch (serves as correctional insulin in-lieu of correctional Novolin R) * Basal insulin * Lantus 10 units SQ daily * Bolus insulin * Novolin R SC ACHS and 0200 * Goal Range: Low 120 mg/dL - High 160 mg/dL * Correction Factor: 35 mg/dL/unit * Nutritional / Prandial insulin per carb ratio of 1 unit per 13 grams CHO consumed
[2019-08-03] MEDS ORDERED: INSULIN HUMAN REGULAR PER UNIT 4 UNITS in SYRINGE 3.96 ML IV ONE (12:00)
[2019-08-03] MEDS: HEPARIN SOD 5,000 UNIT/0.5 ML VIAL SQ SCH ×2 (12:07→21:50)
--- NOTE | 2019-08-03 12:43 | Hospitalist Progress Note ---
Date of Service August 03, 2019 Assessment & Plan (1) Abdominal pain: History of type 1 diabetes and presented with abdominal pain, nausea with vomiting CT of the abdomen pelvis remained unremarkable No other sources of infection identified except status post recent teeth extraction Received intravenous antibiotic with Zosyn on admission Remains free of abdominal symptoms (2) Pain, dental: Recent complete teeth extraction Has been complaining of significant pain No obvious infection noted on examination We will continue pain medications as prescribed dentist Antibiotic was changed to Augmentin Complaints to have ongoing pain in the mouth Has some swelling left side of the cheek with some tenderness (3) Hyperglycemia due to type 1 diabetes mellitus: Presented with hyperglycemia with a blood sugar more than 350 No evidence of DKA except beta hydroxybutyric acid was high Received intravenous insulin Now back on her usual regimen Continue current management Blood sugar is controlled with her usual doses of insulin (4) End-stage renal disease (ESRD): Has been on hemodialysis Creatinine is around 2.5 Appreciate nephrology input and recommendation Next dialysis on Saturday (5) Hypertension: Remains at the higher range with systolic of 165 Continue her home medication Blood pressure was noted to be very high this morning Her Coreg has been increased to 25 mg twice daily She was prescribed hydralazine IV to control blood pressure as needed (6) Seizure: We will continue her seizure medication (7) CVA (cerebral vascular accident): No acute issue Recent transaminitis Monitor LFTs DVT prophylax We will start heparin Likely to be discharged tomorrow Admission and Anticipated Discharge Date Admission Date: August 01, 2019 Subjective 08/02/2019 The patient was seen and examined in the ED telemetry unit She has type 1 diabetes with increased renal disease on hemodialysis was admitted yesterday with nausea, vomiting with abdominal pain Complicated by recent total extraction of teeth Denies any abdominal pain this morning but has pain in the mouth 08/03/2019 Patient was seen and examined in telemetry unit She complains of pain in the mouth and has not been taking anything orally besides liquid Denies any abdominal pain, nausea and/or vomiting Her blood pressure was noted to be very high Review of Systems Review of Systems: All systems reviewed and are unremarkable except as noted below Ear, Nose, Mouth, Throat: + dental pain (Significant dental pain secondary to extraction of all the teeth recent) Physical Exam Physical Exam: Lying in bed with some discomfort in the mouth Constitutional: well developed; no acute distress and not ill appearing Eyes: PERRL, conjunctivae normal, anicteric sclerae ENMT: external ear and nose normal, oropharynx normal Neck: trachea midline, no thyromegaly Respiratory: normal respiratory effort; no respiratory distress Auscultation: lungs clear to auscultation bilaterally Cardiovascular: Rate/Rhythm: regular rate and regular rhythm Heart Sounds: no murmur Gastrointestinal (Abdomen): Inspection/Auscultation: abdomen normal to inspection and normal bowel sounds; abdomen not distended Percussion/Palpation: + abdomen tender (Minimally tender in the epigastrium) and abdomen soft Musculoskeletal: Denies any acute arthritis involving any joints Neurologic: Alert, awake and oriented x3. Generally weak Lymphatic: no cervical or axillary lymphadenopathy Results & Data ([facility]) Vital Signs (Past 12 Hours) Vital Signs Temp Pulse Resp BP Pulse Ox 08/03/19 11:58 36.5 C 75 17 206/69 H 100 08/03/19 07:59 196/70 H 08/03/19 07:20 36.6 C 85 18 96 08/03/19 02:44 36.5 C 75 16 155/75 H 95 Laboratory Results Short CBC 08/03/19 Range/Units 06:18 WBC 5.23 (4.8-10.8) K/uL Hgb 8.8 L (12.0-16.0) g/dL Hct 27.3 L (37-47) % Plt Count 346 D (130-400) K/uL BMP 08/03/19 06:18 Sodium 137 Potassium 5.0 Chloride 109 H Carbon Dioxide 22 BUN 32 H Creatinine 2.35 H Glucose 276 H Calcium 8.4 L Liver Function 08/02/19 08/03/19 Range/Units 02:09 06:18 Total Bilirubin 0.4 0.3 (0.2-1) mg/dl Direct Bilirubin < 0.1 < 0.1 (0-0.2) mg/dl AST 25 53 H (15-37) U/L ALT 55 56 (12-78) U/L Alkaline Phosphatase 116 116 (45-117) U/L Albumin 2.7 L 2.7 L (3.4-5.0) gm/dl Medications Administered Current Inpatient Medications Acetaminophen (Tylenol) 650 mg PO Q4H PRN PRN Reason: Pain or Fever Stop: 08/31/19 22:24 Last Admin: 08/03/19 12:10 Dose: 650 mg Documented by: Albuterol (Ventolin Hfa) 2 puffs INH Q4H PRN PRN Reason: Wheezing Stop: 08/31/19 22:24 Amoxicillin/Clavulanate Potassium (Augmentin 500mg) 1 tab PO DAILY@1700 SARAH; Protocol Stop: 08/12/19 16:59 Last Admin: 08/02/19 17:02 Dose: 1 tab Documented by: Aripiprazole (Abilify) 5 mg PO HS SARAH Stop: 09/01/19 20:59 Last Admin: 08/02/19 20:33 Dose: 5 mg Documented by: Atorvastatin Calcium (Lipitor) 40 mg PO HS [facility] Stop: 09/01/19 20:59 Last Admin: 08/02/19 20:34 Dose: 40 mg Documented by: Bisacodyl (Dulcolax) 10 mg VT DAILY PRN PRN Reason: constipation Stop: 08/31/19 22:24 Bisacodyl (Dulcolax) 10 mg PO DAILY PRN PRN Reason: Constipation Stop: 08/31/19 22:47 Carvedilol (Coreg) 25 mg PO BIDM [facility] Stop: 09/02/19 16:59 Dextrose (Dextrose 50%) 25 - 50 ml IV UD PRN; Protocol PRN Reason: Hypoglycemia Protocol Stop: 08/31/19 22:59 Glucagon (Glucagen) 1 mg SQ UD PRN; Protocol PRN Reason: Hypoglycemia Protocol Stop: 08/31/19 22:59 Glucose (Glucose 40%) 15 - 30 gm PO UD PRN; Protocol PRN Reason: Hypoglycemia Protocol Stop: 08/31/19 22:59 Glucose (Dex4 Glucose) 4 - 8 tabs PO UD PRN; Protocol PRN Reason: Hypoglycemia Protocol Stop: 08/31/19 22:59 Heparin Sodium (Porcine) (Heparin Sodium (Porcine)) 5,000 units SQ Q12 SARAH Stop: 09/01/19 20:59 Last Admin: 08/03/19 12:07 Dose: 5,000 units Documented by: Hydralazine HCl (Hydralazine Hcl) 5 mg IV Q6H PRN PRN Reason: Hypertension Stop: 08/31/19 23:11 Last Admin: 08/03/19 12:10 Dose: 5 mg Documented by: Hydromorphone HCl (Dilaudid) 0.5 mg IV Q4H PRN PRN Reason: Pain Stop: 08/15/19 22:24 Last Admin: 08/03/19 12:10 Dose: 0.5 mg Documented by: Levetiracetam 500 mg/ Dextrose 105 mls @ 440 mls/hr IV BID SARAH Stop: 08/31/19 22:24 Last Infusion: 08/03/19 08:20 Dose: Infused Documented by: Lorazepam (Ativan) 1 mg in 2 mls @ 2 mls/min IV Q2H PRN PRN Reason: Breakthrough Seizures Stop: 08/31/19 22:24 Potassium Chloride/Sodium Chloride (Normal Saline W/20 Meq Kcl) 20 meq in 1,000 mls @ 75 mls/hr IV .[id number] [facility] Stop: 09/01/19 12:29 Last Admin: 08/03/19 02:19 Dose: 75 mls/hr Documented by: Insulin Glargine (Lantus Solostar Pen) 10 units SC DAILY [facility] Stop: 09/02/19 08:59 Last Admin: 08/03/19 08:01 Dose: 10 units Documented by: Insulin Human Regular (Novolin R) 0 units SC ACHS [facility] Stop: 09/01/19 16:29 Last Admin: 08/02/19 20:28 Dose: 5 units Documented by: Insulin Human Regular (Novolin R) 0 units SC TODAY@0200 ONE Stop: 08/04/19 02:01 Lamotrigine (Lamictal) 100 mg PO QPM [facility] Stop: 09/01/19 20:59 Last Admin: 08/02/19 20:34 Dose: 100 mg Documented by: Miscellaneous (Carbohydrates For Hypoglycemia) 15 - 30 gm PO UD PRN PRN Reason: Hypoglycemia Treatment Stop: 08/31/19 22:59 Miscellaneous Information (Consult Glycemic Management Pharmacy) 1 ea N/A UD PRN PRN Reason: Consult Stop: 08/31/19 22:41 Multivitamins (Multivitamin Tab) 1 tab PO QAM [facility] Stop: 09/01/19 08:59 Last Admin: 08/03/19 08:01 Dose: 1 tab Documented by: Nitroglycerin (Nitrostat) 0.4 mg SL UD PRN PRN Reason: Chest Pain Stop: 08/31/19 22:24 Nystatin (Mycostatin) 10 ml PO QID SARAH Stop: 08/12/19 08:59 Last Admin: 08/03/19 12:09 Dose: 10 ml Documented by: Ondansetron HCl (Zofran) 4 mg IV Q6H PRN PRN Reason: Nausea Stop: 08/31/19 22:24 Oxycodone/Acetaminophen (Percocet 5mg/325mg) 1 - 2 tab PO Q6H PRN PRN Reason: Pain Stop: 08/15/19 22:24 Last Admin: 08/02/19 20:32 Dose: 2 tab Documented by: Pantoprazole Sodium (Protonix) 40 mg PO QAM SARAH Stop: 09/01/19 08:59 Last Admin: 08/03/19 08:01 Dose: 40 mg Documented by: Polyethylene Glycol (Miralax Powder Packet) 17 gm PO BID PRN PRN Reason: Constipation Stop: 08/31/19 22:24 Sertraline HCl (Zoloft) 100 mg PO HS SARAH Stop: 09/01/19 20:59 Last Admin: 08/02/19 20:35 Dose: 100 mg Documented by: Trazodone HCl (Desyrel) 150 mg PO HS PRN PRN Reason: Sleep Stop: 08/31/19 22:24 Last Admin: 08/01/19 23:22 Dose: 150 mg Documented by: Vitamin B Complex/Folic Acid (Nephrocaps) 1 cap PO QPM SARAH Stop: 09/01/19 20:59 Last Admin: 08/02/19 20:35 Dose: 1 cap Documented by: (1) Abdominal pain Abdominal location: generalized Qualified Code(s): R10.84 - Generalized abdominal pain
[2019-08-03] MEDS ORDERED: LIDOCAINE HCL 2% VISCOUS 60 ML, DiphenhydrAMINE Syrup 150 MG, ALUMINUM/MAGNESIUM SUSP 6... PO PRN (16:14)
[2019-08-03] MEDS: AMOXICILLIN/CLAVULANATE 500 MG TAB PO SCH (16:59)
[2019-08-03] MEDS: carvediloL 25 MG TAB PO SCH (16:59)
[2019-08-03] MEDS: INSULIN HUMAN REGULAR SC SCH ×2 (17:01→21:50)
[2019-08-03] MEDS: OXYCODONE/ACETAMINOPHEN 5mg/325mg TAB PO PRN ×2 (17:08→23:49)
[2019-08-03] MEDS: ARIPiprazole 5 MG TAB PO SCH (20:09)
[2019-08-03] MEDS: NEPHROCAPS PO SCH (20:10)
[2019-08-03] MEDS: ATORVASTATIN 40 MG TAB PO SCH (20:10)
[2019-08-03] MEDS: lamoTRIgine 100 MG TAB PO SCH (20:12)
[2019-08-03] MEDS: SERTRALINE HCL 100 MG TABLET PO SCH (21:49)
[2019-08-04] MEDS: TRAZODONE HCL 50 MG TAB PO PRN (01:55)
[2019-08-04] MEDS ORDERED: INSULIN HUMAN REGULAR SC ONE (02:00)
[2019-08-04 02:22] LABS: Basophils # (auto) 0.03 K/uL (0-0.2); Basophils % (auto) 0.9 %; Eosinophils # (auto) 0.18 K/uL (0-0.5); Eosinophils % (auto) 5.1 %; Hematocrit (blood only) 28.1 % (37-47); Hemoglobin 9.1 g/dL (12.0-16.0); Immature Granulocytes # (auto) 0.01 K/uL (0.00-0.02); Immature Granulocytes % (auto) 0.3 %; Lymphocytes # (auto) 1.14 K/uL (1.2-3.4); Lymphocytes % (auto) 32.5 %; Mean Corpuscular Hemoglobin 30.5 pg (25-34); Mean Corpuscular Hgb Conc 32.4 g/dL (32-36); Mean Corpuscular Volume 94.3 fL (80-100); Mean Platelet Volume 9.8 fL (7.4-10.4); Monocytes # (auto) 0.27 K/uL (0.11-0.59); Monocytes % (auto) 7.7 %; Neutrophils # (auto) 1.88 K/uL (1.4-6.5); Neutrophils % (auto) 53.5 %; Platelet Count 326 K/uL (130-400); RDW Coefficient of Variation 16.3 % (11.5-14.5); RDW Standard Deviation 56.1 fL (36.4-46.3); Red Blood Count 2.98 M/uL (4.2-5.4); White Blood Count 3.51 K/uL (4.8-10.8)
[2019-08-04 02:47] LABS: BUN Creatinine Ratio 11.6 (10-20); Calcium 8.6 mg/dl (8.5-10.1); Creatinine Clr Calc Pharmacy 26.2 ml/min; Est GFR (African American) 32.3; Est GFR (Non-African American) 27.9; Potassium 5.5 mmol/L (3.5-5.1)
[2019-08-04 03:16] LABS: EAG mmol/L 14.4 (calc); HA1C 10.7 (<5.7)
[2019-08-04] MEDS: OXYCODONE/ACETAMINOPHEN 5mg/325mg TAB PO PRN ×2 (06:42→12:48)
[2019-08-04] MEDS ORDERED: SODIUM CHLORIDE 0.9% 1000ML 1,000 ML IV PRN (07:55)
[2019-08-04] MEDS ORDERED: EPOETIN ALFA 10,000 UNITS/ML VIAL IV ONE (07:55)
[2019-08-04] MEDS ORDERED: HEPARIN SOD (PORCINE) 1000 UNIT/ML 10 ML VIAL IV SCH (08:00)
[2019-08-04] MEDS: NYSTATIN SUSP 500,000 U/5 ML UDC PO SCH ×2 (08:35→14:06)
[2019-08-04] MEDS: PANTOprazole 40 MG TAB PO SCH (08:35)
[2019-08-04] MEDS: MULTIVITAMIN TAB PO SCH (08:35)
[2019-08-04] MEDS: carvediloL 25 MG TAB PO SCH (08:36)
[2019-08-04] MEDS: HEPARIN SOD 5,000 UNIT/0.5 ML VIAL SQ SCH (08:39)
[2019-08-04] MEDS: INSULIN GLARGINE SOLOSTAR 100 UNITS/ML 3 ML PEN SC SCH (08:40)
[2019-08-04] MEDS: INSULIN HUMAN REGULAR SC SCH ×2 (08:43→14:32)
[2019-08-04] MEDS: HEPARIN SOD (PORCINE) 1000 UNIT/ML 10 ML VIAL IV SCH (12:40)
--- NOTE | 2019-08-04 15:38 | Pharmacy Report ---
Pharmacy Glycemic Short Note 2 - Date of Service August 04, 2019 - Glycemic Short BSG Results (Last 24 hours): 08/03/19 08/03/19 08/03/19 16:10 20:29 20:49 Glucose POC Glucose 252 H 55 L* 54 L* 08/03/19 08/04/19 08/04/19 21:06 01:41 02:09 Glucose 198 H POC Glucose 87 188 H 08/04/19 08/04/19 08:04 13:48 Glucose POC Glucose 182 H 135 H ASSESSMENT: 08/04: * Patient received total of 34 units of insulin yesterday, of which 10 were basal insulin * BSGs trending down at HS - will loosen CR this AM and provide looser CF/CR at dinner PLAN FOR INPATIENT GLYCEMIC CONTROL: * Basal insulin * Lantus 10 units SQ daily * Bolus insulin * Novolin R SC ACHS and 0200 * Goal Range: Low 120 mg/dL - High 160 mg/dL * Correction Factor: 40 mg/dL/unit * Nutritional / Prandial insulin per carb ratio of 1 unit per 25 grams CHO consumed
--- NOTE | 2019-08-04 15:42 | Hospitalist Progress Note ---
Date of Service August 04, 2019 Assessment & Plan (1) Abdominal pain: History of type 1 diabetes and presented with abdominal pain, nausea with vomiting CT of the abdomen pelvis remained unremarkable No other sources of infection identified except status post recent teeth extraction Received intravenous antibiotic with Zosyn on admission Remains free of abdominal symptoms No more abdominal pain and/or distention, nausea and/or vomiting (2) Pain, dental: Recent complete teeth extraction Has been complaining of significant pain No obvious infection noted on examination We will continue pain medications as prescribed dentist Antibiotic was changed to Augmentin Complaints to have ongoing pain in the mouth Has some swelling left side of the cheek with some tenderness Swelling the left side of the lower face is improved Was advised to take less of narcotics to control pain at home Was advised to make an appointment with dentist before Saturday (3) Hyperglycemia due to type 1 diabetes mellitus: Presented with hyperglycemia with a blood sugar more than 350 No evidence of DKA except beta hydroxybutyric acid was high Received intravenous insulin Now back on her usual regimen Continue current management Blood sugar is controlled with her usual doses of insulin (4) End-stage renal disease (ESRD): Has been on hemodialysis Creatinine is around 2.5 Appreciate nephrology input and recommendation Next dialysis on Saturday Has a dialysis today-continue dialysis as an outpatient (5) Hypertension: Remains at the higher range with systolic of 165 Continue her home medication Blood pressure was noted to be very high this morning Her Coreg has been increased to 25 mg twice daily She was prescribed hydralazine IV to control blood pressure as needed (6) Seizure: We will continue her seizure medication (7) CVA (cerebral vascular accident): No acute issue Recent transaminitis Monitor LFTs DVT prophylax-Heparin Discussed with the Will be discharged this afternoon Admission and Anticipated Discharge Date Admission Date: August 01, 2019 Subjective 08/02/2019 The patient was seen and examined in the ED telemetry unit She has type 1 diabetes with increased renal disease on hemodialysis was admitted yesterday with nausea, vomiting with abdominal pain Complicated by recent total extraction of teeth Denies any abdominal pain this morning but has pain in the mouth 08/03/2019 Patient was seen and examined in telemetry unit She complains of pain in the mouth and has not been taking anything orally besides liquid Denies any abdominal pain, nausea and/or vomiting Her blood pressure was noted to be very high 08/04/2019 Patient was seen and examined in medical floor Still complains to have some pain in the neck, and mouth Swelling seems to be better without any fever and/or chills Has had dialysis today Review of Systems Review of Systems: All systems reviewed and are unremarkable except as noted below Ear, Nose, Mouth, Throat: + dental pain (Significant dental pain secondary to extraction of all the teeth recent) Physical Exam Physical Exam: Lying in bed with some discomfort in the mouth Constitutional: well developed; no acute distress and not ill appearing Eyes: PERRL, conjunctivae normal, anicteric sclerae ENMT: external ear and nose normal, oropharynx normal Neck: trachea midline, no thyromegaly Respiratory: normal respiratory effort; no respiratory distress Auscultation: lungs clear to auscultation bilaterally Cardiovascular: Rate/Rhythm: regular rate and regular rhythm Heart Sounds: no murmur Gastrointestinal (Abdomen): Inspection/Auscultation: abdomen normal to inspection and normal bowel sounds; abdomen not distended Percussion/Palpation: + abdomen tender (Minimally tender in the epigastrium) and abdomen soft Musculoskeletal: No acute arthritis in any joints Neurologic: moves all extremities; no focal motor deficits Lymphatic: no cervical or axillary lymphadenopathy Results & Data ([facility]) Vital Signs (Past 12 Hours) Vital Signs Temp Pulse Pulse Resp BP Pulse Ox 08/04/19 14:53 36.7 C 83 16 158/68 H 98 08/04/19 12:56 36.9 C 164/74 H 08/04/19 09:30 37.0 C 79 08/04/19 07:07 36.8 C 81 16 183/77 H 99 Laboratory Results Short CBC 08/04/19 Range/Units 02:09 WBC 3.51 L (4.8-10.8) K/uL Hgb 9.1 L (12.0-16.0) g/dL Hct 28.1 L (37-47) % Plt Count 326 (130-400) K/uL BMP 08/04/19 02:09 Sodium 139 Potassium 5.5 H Chloride 112 H Carbon Dioxide 24 BUN 24 H Creatinine 2.03 H D Glucose 198 H Calcium 8.6 Medications Administered Current Inpatient Medications Acetaminophen (Tylenol) 650 mg PO Q4H PRN PRN Reason: Pain or Fever Stop: 08/31/19 22:24 Last Admin: 08/03/19 12:10 Dose: 650 mg Documented by: Albuterol (Ventolin Hfa) 2 puffs INH Q4H PRN PRN Reason: Wheezing Stop: 08/31/19 22:24 Amoxicillin/Clavulanate Potassium (Augmentin 500mg) 1 tab PO DAILY@1700 SARAH; Protocol Stop: 08/12/19 16:59 Last Admin: 08/03/19 16:59 Dose: 1 tab Documented by: Aripiprazole (Abilify) 5 mg PO [facility] Stop: 09/01/19 20:59 Last Admin: 08/03/19 20:09 Dose: 5 mg Documented by: Atorvastatin Calcium (Lipitor) 40 mg PO [facility] Stop: 09/01/19 20:59 Last Admin: 08/03/19 20:10 Dose: 40 mg Documented by: Bisacodyl (Dulcolax) 10 mg [place] DAILY PRN PRN Reason: constipation Stop: 08/31/19 22:24 Bisacodyl (Dulcolax) 10 mg PO DAILY PRN PRN Reason: Constipation Stop: 08/31/19 22:47 Carvedilol (Coreg) 25 mg PO BIDM [facility] Stop: 09/02/19 16:59 Last Admin: 08/04/19 08:36 Dose: Not Given Documented by: Lidocaine HCl 60 ml/Diphenhydramine HCl 150 mg/ Al Hydrox/Mg Hydrox/Simethicone 60 ml/ Glycerin 60 ml/ [employer] 1 ea 0 ml PO Q4H PRN PRN Reason: Moderate Pain Stop: 09/02/19 16:13 Last Admin: 08/03/19 20:11 Dose: 5 ml Documented by: Dextrose (Dextrose 50%) 25 - 50 ml IV UD PRN; Protocol PRN Reason: Hypoglycemia Protocol Stop: 08/31/19 22:59 Glucagon (Glucagen) 1 mg SQ UD PRN; Protocol PRN Reason: Hypoglycemia Protocol Stop: 08/31/19 22:59 Glucose (Glucose 40%) 15 - 30 gm PO UD PRN; Protocol PRN Reason: Hypoglycemia Protocol Stop: 08/31/19 22:59 Glucose (Dex4 Glucose) 4 - 8 tabs PO UD PRN; Protocol PRN Reason: Hypoglycemia Protocol Stop: 08/31/19 22:59 Heparin Sodium (Porcine) (Heparin Sodium (Porcine)) 5,000 units SQ Q12 [facility] Stop: 09/01/19 20:59 Last Admin: 08/04/19 08:39 Dose: 5,000 units Documented by: Heparin Sodium (Porcine) (Heparin Iv Bolus) 1,000 units IV TODAY@0800 [facility] Stop: 08/04/19 18:00 Last Admin: 08/04/19 12:40 Dose: Not Given Documented by: Hydralazine HCl (Hydralazine Hcl) 5 mg IV Q6H PRN PRN Reason: Hypertension Stop: 08/31/19 23:11 Last Admin: 08/03/19 12:10 Dose: 5 mg Documented by: Hydromorphone HCl (Dilaudid) 0.5 mg IV Q4H PRN PRN Reason: Pain Stop: 08/15/19 22:24 Last Admin: 08/03/19 12:10 Dose: 0.5 mg Documented by: Levetiracetam 500 mg/ Dextrose 105 mls @ 440 mls/hr IV BID [facility] Stop: 08/31/19 22:24 Last Infusion: 08/04/19 09:11 Dose: Infused Documented by: Lorazepam (Ativan) 1 mg in 2 mls @ 2 mls/min IV Q2H PRN PRN Reason: Breakthrough Seizures Stop: 08/31/19 22:24 Insulin Glargine (Lantus Solostar Pen) 10 units SC DAILY [facility] Stop: 09/02/19 08:59 Last Admin: 08/04/19 08:40 Dose: 10 units Documented by: Insulin Human Regular (Novolin R) 0 units SC ACHS [facility] Stop: 09/01/19 16:29 Last Admin: 08/04/19 14:32 Dose: 4 units Documented by: Lamotrigine (Lamictal) 100 mg PO QPM [facility] Stop: 09/01/19 20:59 Last Admin: 08/03/19 20:12 Dose: 100 mg Documented by: Miscellaneous (Carbohydrates For Hypoglycemia) 15 - 30 gm PO UD PRN PRN Reason: Hypoglycemia Treatment Stop: 08/31/19 22:59 Last Admin: 08/03/19 20:31 Dose: 15 gm Documented by: Miscellaneous Information (Consult Glycemic Management Pharmacy) 1 ea N/A UD PRN PRN Reason: Consult Stop: 08/31/19 22:41 Multivitamins (Multivitamin Tab) 1 tab PO QAM [facility] Stop: 09/01/19 08:59 Last Admin: 08/04/19 08:35 Dose: 1 tab Documented by: Nitroglycerin (Nitrostat) 0.4 mg SL UD PRN PRN Reason: Chest Pain Stop: 08/31/19 22:24 Nystatin (Mycostatin) 10 ml PO QID SARAH Stop: 08/12/19 08:59 Last Admin: 08/04/19 14:06 Dose: 10 ml Documented by: Ondansetron HCl (Zofran) 4 mg IV Q6H PRN PRN Reason: Nausea Stop: 08/31/19 22:24 Oxycodone/Acetaminophen (Percocet 5mg/325mg) 1 - 2 tab PO Q6H PRN PRN Reason: Pain Stop: 08/15/19 22:24 Last Admin: 08/04/19 12:48 Dose: 2 tab Documented by: Pantoprazole Sodium (Protonix) 40 mg PO QAM [facility] Stop: 09/01/19 08:59 Last Admin: 08/04/19 08:35 Dose: 40 mg Documented by: Polyethylene Glycol (Miralax Powder Packet) 17 gm PO BID PRN PRN Reason: Constipation Stop: 08/31/19 22:24 Sertraline HCl (Zoloft) 100 mg PO HS SARAH Stop: 09/01/19 20:59 Last Admin: 08/03/19 21:49 Dose: 100 mg Documented by: Trazodone HCl (Desyrel) 150 mg PO HS PRN PRN Reason: Sleep Stop: 08/31/19 22:24 Last Admin: 08/04/19 01:55 Dose: 150 mg Documented by: Vitamin B Complex/Folic Acid (Nephrocaps) 1 cap PO QPM [facility]AH Stop: 09/01/19 20:59 Last Admin: 08/03/19 20:10 Dose: 1 cap Documented by: (1) Abdominal pain Abdominal location: generalized Qualified Code(s): R10.84 - Generalized abdominal pain
--- NOTE | 2019-08-05 10:39 | Discharge Summary ---
Date of Service August 05, 2019 Admission HPI Per Admitting Provider Chief Complaint: abdominal pain, nausea, vomiting Primary Care Provider: Mitchel Santo MD 48 YO female followed by Dr. Santo in [place] for primary care. History of diabetes mellitus type 1, chronic kidney disease stage V on hemodialysis, gastroparesis, coronary artery disease, and other problems. Chronic/intermittent GI problems related to gastroparesis. Underwent ERCP about 2 weeks ago with sphincterotomy and dilatation. Presented to the ED with 3 days of nausea and vomiting associated with abdominal pain. Patient describes coffee-ground emesis. Abdominal pain is epigastric and right-sided, sometimes severe. Symptoms worsened by eating. He is a pantoprazole and ondansetron without relief. No bowel movements for several days; no melena or hematochezia prior to last bowel movement. She was told that recent urinalysis showed some hematuria, but has not noted any gross hematuria. No dysuria. No fever, but experiencing some chills. Glucose monitoring at home "high" for fingerstick blood sugars and continuous glucose monitor. Admission Exam Per Admitting Provider Constitutional: + chills and + weight loss; no fever Eyes: + worsening vision (chronic, no acute changes); no diplopia Ear, Nose, Mouth, Throat: no nasal congestion, no sinus pain/pressure and no sore throat Respiratory: + cough (occasional, mild); no dyspnea Cardiovascular: no chest pain, no palpitations and no edema Gastrointestinal: as per Subjective / HPI Genitourinary: no dysuria and no hematuria Musculoskeletal: no joint pain and no myalgia Integumentary: no rash and no new lesions Neurologic: + headache(s) diabetic neuropathy Endocrine: + polydipsia and + polyuria blood sugars elevated Hematologic / Lymphatic: + easy bruising; no easy bleeding and no lymphadenopathy Principal Diagnosis Dental pain status post extraction of all teeth recent, ESRD on hemodialysis, type 1 diabetes Discharge Exam Constitutional well developed; no acute distress and not ill appearing Eyes PERRL, conjunctivae normal, anicteric sclerae ENMT external ear and nose normal, oropharynx normal Neck trachea midline, no thyromegaly Respiratory normal respiratory effort; no respiratory distress Auscultation: lungs clear to auscultation bilaterally Cardiovascular Rate/Rhythm: regular rate and regular rhythm Heart Sounds: no murmur Gastrointestinal (Abdomen) Inspection/Auscultation: abdomen normal to inspection and normal bowel sounds; abdomen not distended Percussion/Palpation: + abdomen tender (Minimally tender in the epigastrium) and abdomen soft Neurologic moves all extremities; no focal motor deficits Lymphatic no cervical or axillary lymphadenopathy Discharge Data Allergies Allergy/AdvReac Type Severity Reaction Status Date / Time Fish Containing Products Allergy Mild Hives Verified 06/20/19 11:19 latex Allergy Mild hives Verified 06/20/19 11:19 Consultations 08/01/19 20:02 ED Decision to Admit Stat 08/01/19 22:25 Consult Case Management - Discharge Planning Routine 08/02/19 08:00 Consult Nephrology Routine Ordered Studies 08/01/19 18:20 CT abd pelvis wo con Stat Hospital Course (1) Abdominal pain: History of type 1 diabetes and presented with abdominal pain, nausea with vomiting CT of the abdomen pelvis remained unremarkable No other sources of infection identified except status post recent teeth extraction Received intravenous antibiotic with Zosyn on admission Remains free of abdominal symptoms No more abdominal pain and/or distention, nausea and/or vomiting (2) Pain, dental: Recent complete teeth extraction Has been complaining of significant pain No obvious infection noted on examination We will continue pain medications as prescribed dentist Antibiotic was changed to Augmentin Complaints to have ongoing pain in the mouth Has some swelling left side of the cheek with some tenderness Swelling the left side of the lower face is improved Was advised to take less of narcotics to control pain at home Was advised to make an appointment with dentist before Saturday (3) Hyperglycemia due to type 1 diabetes mellitus: Presented with hyperglycemia with a blood sugar more than 350 No evidence of DKA except beta hydroxybutyric acid was high Received intravenous insulin Now back on her usual regimen Continue current management Blood sugar is controlled with her usual doses of insulin (4) End-stage renal disease (ESRD): Has been on hemodialysis Creatinine is around 2.5 Appreciate nephrology input and recommendation Next dialysis on Saturday Has a dialysis today-continue dialysis as an outpatient (5) Hypertension: Remains at the higher range with systolic of 165 Continue her home medication Blood pressure was noted to be very high this morning Her Coreg has been increased to 25 mg twice daily She was prescribed hydralazine IV to control blood pressure as needed (6) Seizure: We will continue her seizure medication (7) CVA (cerebral vascular accident): No acute issue Recent transaminitis Monitor LFTs DVT prophylax-Heparin Discussed with the Will be discharged this afternoon Total Time Total Time Spent Total Time Spent (In Minutes): 35 minutes Total Time Includes: Examination of the Patient, Discharge Planning, Medication Reconciliation and Communication With Other Providers Discharge Plan Discharge Items Patient Disposition: Home - Self-Care Reason For Visit: N/V, ABDOMINAL PAIN, HYPERGLYCEMIA Discharge Diagnosis: Dental pain status post extraction of all teeth recent, ESRD on hemodialysis, type 1 diabetes Condition on Discharge: Fair Activity: Resume your previous activity Non-emergency contact: Primary Care Provider Call non-emergency contact if: you have any medication questions and your symptoms worsen Follow-up/Referrals: Mitchel Santo MD [Primary Care Provider] - 08/07/19 8:45 am (Your appointment is with Dr. Holman. Please make an appointment with your dentist within 7 days You will need to have follow-up appointment with bingo caller/paraeducator as an outpatient) Diet: Carb Count or DM1 Diet Texture: Mechanical soft (ground) Addtl Attending Provider Instructions: Please take precaution to avoid fall Please try to maintain oral hygiene as advised Pending Studies at Discharge: No Stand-Alone Forms: My [employer], Opioid Pain Management, Smoking Cessation Medications and DC Order Prescriptions: New amoxicillin-pot clavulanate 500-125 mg Tablet 1 tab PO DAILY@1700 7 Days Qty: 7 RF: 0 Continued aripiprazole 5 mg tablet 5 mg PO HS RF: 0 bisacodyl 10 mg suppository 10 mg [place] DAILY PRN (Reason: constipation) Qty: 2 RF: 0 oxycodone-acetaminophen 5-325 mg tablet See Rx Instructions .ROUTE .COMPLEX RF: 0 atorvastatin 40 mg tablet 40 mg PO HS RF: 0 acetaminophen 325 mg Tablet 325 mg PO Q4H PRN (Reason: Pain) RF: 0 trazodone 50 mg tablet 150 mg PO HS PRN (Reason: Sleep) RF: 0 sertraline 100 mg tablet 100 mg PO HS RF: 0 Lantus Solostar U-100 Insulin 100 unit/mL (3 mL) insulin pen 12 unit SUBCUT DAILY RF: 0 multivitamin Tablet 1 tab PO QAM RF: 0 carvedilol 25 mg Tablet 12.5 mg PO BIDM RF: 0 polyethylene glycol 3350 [Miralax] 17 gram Powder In Packet 17 g PO BID PRN (Reason: Constipation) RF: 0 pantoprazole 40 mg Tablet,Delayed Release (Dr/Ec) 40 mg PO QAM RF: 0 ergocalciferol (vitamin D2) [Vitamin D2] 50,000 unit capsule 50,000 unit PO WK RF: 0 Sunflower Caps 1 mg Capsule 1 cap PO QPM RF: 0 albuterol sulfate [Proventil HFA] 90 mcg/actuation HFA aerosol inhaler 2 puff inhalation Q4H PRN (Reason: Wheezing) RF: 0 lamotrigine [Lamictal] 100 mg tablet 100 mg PO QPM RF: 0 bisacodyl 5 mg Tablet 10 mg PO DAILY PRN (Reason: Constipation) RF: 0 insulin lispro [Admelog SoloStar U-100 Insulin] 100 unit/mL insulin pen See Rx Instructions .ROUTE .COMPLEX RF: 0 levetiracetam 500 mg tablet 500 mg PO BID RF: 0 nystatin 100,000 unit/mL Suspension 10 ml PO QID Qty: 480 RF: 0 Discontinued amoxicillin 500 mg capsule 500 mg PO Q6H RF: 0 Discharge Orders: Discharge Order (Routine); Ordered 08/04/19 Ordered By: Jorge Mcgill/Other Patient Handouts: Diabetes Healthy Meals, Diabetes Meal Planning Admission Data Admit Date/Time: 08/01/19 21:18 Attending Provider: Jorge Brasher Admit Provider: Kaveh Thurston Primary Care Provider: Mitchel Santo Other Providers: Kaveh Thurston ; Stanley Donaldson Other Interventions: Discharge Summary Assessment (RN) Last Done: 08/04/19 16:33 DC Date/Time DO NOT enter until pt leaves facility: 08/04/19 17:13
== END 2019-08-04 17:13 | disposition home or self-care (01) ==
LOC: ED 17:32 → INTOOBSV 21:18 → 2S 21:18 → 3W 08-04 01:39

== ENCOUNTER 2020-01-03 17:01 | Inpatient (IN) ==
[2020-01-03] MEDS ORDERED: MoRPHine SULFATE 4 MG/ML 1 ML CARP\\VIAL IV STA (17:15)
[2020-01-03] MEDS ORDERED: ONDANSETRON INJ 2 MG/ML 2 ML VIAL IV STA ×2 (17:15→18:48)
--- NOTE | 2020-01-03 17:21 | Emergency Department Note ---
History of Present Illness General Chief complaint: Rectal Bleed Stated complaint: RECTAL BLEEDING Time Seen by Provider: 01/03/20 17:07 Source: patient History of Present Illness Provider complaint: Left-sided abdominal pain Onset (ago): week(s) 1 Location: abdomen and left Radiation: non-radiation Pain Consistency: + constant Maximum Pain Intensity: 8 Quality: + stabbing Relieved By: + none Associated symptoms: + chest pain (Sharp chest pain 2 days), + cough (Nonproductive cough 2 days), + nausea/vomiting and + other (Rectal bleeding x2 days); no fever/chills and no shortness of breath This is a 49-year-old female presents with left-sided abdominal pain for the past week. She describes it as sharp and stabbing. She rates it an 8 out of 10 in severity. No alleviating factors. It is associated with rectal bleeding which started 2 days ago. She started having bright red blood per rectum. She denies diarrhea or melanotic stools. She has been vomiting. She also states on review of systems that she has had a mild nonproductive cough for the past 2 days with pleuritic chest pain when she coughs. She is on hemodialysis and was last dialyzed 2 days ago. Her blood sugars have also been elevated at home. Home Medications Home Medications Medication Instructions Recorded Confirmed Type Leo Caps 1 cap PO QPM 12/19/18 01/03/20 History albuterol sulfate [Proventil HFA] 2 puff INHALATION Q4H PRN 12/19/18 01/03/20 History bisacodyl 10 mg PO DAILY PRN 12/19/18 01/03/20 History carvedilol [Coreg] 12.5 mg PO BIDM 12/19/18 01/03/20 History ergocalciferol (vitamin D2) 50,000 unit PO WK 12/19/18 01/03/20 History [Vitamin D2] multivitamin 1 tab PO QAM 12/19/18 01/03/20 History pantoprazole [Protonix] 40 mg PO QAM 12/19/18 01/03/20 History polyethylene glycol 3350 [Miralax] 17 g PO BID PRN 12/19/18 01/03/20 History aripiprazole [Abilify] 5 mg PO HS 05/20/19 01/03/20 History levetiracetam [Keppra] 500 mg PO BID 06/20/19 01/03/20 History Lantus Solostar U-100 Insulin 12 unit SUBCUT QAM 08/01/19 01/03/20 History acetaminophen [Tylenol] 325 mg PO Q4H PRN 08/01/19 01/03/20 History atorvastatin [Lipitor] 40 mg PO HS 08/01/19 01/03/20 History oxycodone-acetaminophen [Percocet] See Rx Instructions .ROUTE .COMPLEX 08/01/19 01/03/20 History sertraline [Zoloft] 100 mg PO HS 08/01/19 01/03/20 History trazodone 75 mg PO HS PRN 08/01/19 01/03/20 History calcium acetate(phosphat bind) 667 mg PO TIDM 11/09/19 01/03/20 History hydroxyzine HCl 25 mg PO TID PRN 11/09/19 01/03/20 History insulin aspart U-100 [Novolog 13 unit SUBCUT TIDM 11/09/19 01/03/20 History U-100 Insulin aspart] lamotrigine [Lamictal] 50 mg PO HS 11/09/19 01/03/20 History sevelamer carbonate [Renvela] 800 mg PO UD 11/09/19 01/03/20 History fluticasone furoate-vilanterol 1 inh INHALATION DAILY 01/03/20 01/03/20 History [Breo Ellipta] lorazepam 0.5 mg PO BID PRN 01/03/20 01/03/20 History Allergies Allergy/AdvReac Type Severity Reaction Status Date / Time Fish Containing Products Allergy Mild Hives Verified 01/03/20 18:06 latex Allergy Mild hives Verified 01/03/20 18:06 Past Med/Surg History Medical History Anemia due to chronic kidney disease (Chronic) Arteriovenous fistula for hemodialysis in place, primary (Chronic) Bipolar disorder (Chronic) CKD (chronic kidney disease) stage V requiring chronic dialysis Coronary artery disease (Chronic) "2015 - cardiac catheterization showing nonobstructive coronary disease Stress test 06/2017 - possible small area of ischemia in the anterior wall" CVA (cerebral vascular accident) (Chronic) 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 history of CVA in 2018 Residual R sided weakness Depression (Chronic) Diabetic gastroparesis (Chronic) Diastolic heart failure (Chronic) DM type 1 (diabetes mellitus, type 1) (Chronic) ESRD (end stage renal disease) on dialysis GERD (gastroesophageal reflux disease) (Chronic) History of GI bleed (Chronic) Hyperlipidemia (Chronic) Hypertension (Chronic) Seizure (Chronic) Surgical History Hx of appendectomy (Inactive) Hx of cholecystectomy (Inactive) Hx of tubal ligation (Inactive) Family History Mother Coronary heart disease Hypertension Father Coronary heart disease Other No significant family history Social History Smoking Status: Never smoker Tobacco Type: Cigarettes Second Hand Exposure: No; Hx Alcohol Use: No Hx Substance Use: No Preferred Language: [place] Communication Ability: Effective Emg Technician Required: No Beliefs That Will Affect Care: None marital status: Single Current Living Situation: Spouse current occupational status: unemployed Feels Safe at Home: Yes Safety Concerns: Feels Safe At This Time Review of Systems See HPI for pertinent positives & negatives. and A total of 10 systems reviewed and were otherwise negative Physical Exam Vital Signs Vital Signs - 24 hr 01/03/20 17:05 01/03/20 17:30 01/03/20 17:43 Temperature 36.6 C Temperature Source Oral Pulse Rate 109 H 105 H 100 H Pulse Rate [Apical] Pulse Rate from SpO2 Sensor 100 H Pulse Rhythm Regular Pulse Rhythm [Apical] Pulse Strength Normal Pulse Strength [Apical] Respiratory Rate 20 26 H 18 Respiratory Effort / Characteristics Non-Labored Spontaneous Respiratory Depth Normal Respiratory Pattern Regular Blood Pressure 140/59 L 193/71 H 195/80 H Blood Pressure [Right Arm] Blood Pressure Mean 86 144 134 Blood Pressure Mean [Right Arm] Blood Pressure Position Sitting Blood Pressure Position [Right Arm] Pulse Oximetry 99 100 Oxygen Delivery Method Room Air Sepsis Recent Fever Within 48 Hours No Sepsis New/Unexplained Change in Mental Status N/A Sepsis Action Taken by Nursing No Action Required 01/03/20 18:00 01/03/20 18:29 01/03/20 18:30 Temperature Temperature Source Pulse Rate 94 H 88 Pulse Rate [Apical] Pulse Rate from SpO2 Sensor 94 H 89 Pulse Rhythm Pulse Rhythm [Apical] Pulse Strength Pulse Strength [Apical] Respiratory Rate 21 26 H Respiratory Effort / Characteristics Respiratory Depth Respiratory Pattern Blood Pressure 178/73 H 162/75 H Blood Pressure [Right Arm] Blood Pressure Mean 109 100 Blood Pressure Mean [Right Arm] Blood Pressure Position Blood Pressure Position [Right Arm] Pulse Oximetry 100 100 100 Oxygen Delivery Method Room Air Sepsis Recent Fever Within 48 Hours Sepsis New/Unexplained Change in Mental Status Sepsis Action Taken by Nursing 01/03/20 18:59 01/03/20 19:01 Temperature Temperature Source Pulse Rate 91 H Pulse Rate [Apical] 90 Pulse Rate from SpO2 Sensor 91 H Pulse Rhythm Pulse Rhythm [Apical] Regular Pulse Strength Pulse Strength [Apical] Normal Respiratory Rate 26 H 22 Respiratory Effort / Characteristics Non-Labored Spontaneous Respiratory Depth Normal Respiratory Pattern Regular Blood Pressure Blood Pressure [Right Arm] 176/84 H Blood Pressure Mean Blood Pressure Mean [Right Arm] 114 Blood Pressure Position Blood Pressure Position [Right Arm] Lying Pulse Oximetry 100 100 Oxygen Delivery Method Room Air Sepsis Recent Fever Within 48 Hours Sepsis New/Unexplained Change in Mental Status Sepsis Action Taken by Nursing Constitutional: Vital signs reviewed. Eyes: Pupils are equal round reactive to light. Conjunctiva are noninjected. ENT: Pharynx is clear without erythema or exudate. Mucous membranes are moist. Neck supple without meningeal signs. Respiratory: Clear to auscultation bilaterally. Breath sounds are equal b ilaterally. Cardiovascular: Regular rate and rhythm. No rubs or gallops. GI: Soft, nondistended with left mid and lower abdominal tenderness. No guarding. Bowel sounds are present. Musculoskeletal: No peripheral edema. No lower extremity tenderness. Reproducible chest wall tenderness over the left sternal border. Integumentary: No cyanosis. or jaundice. Neurological: The patient is awake and alert. No focal deficits. Psychiatric: Normal affect. Not anxious appearing. Course Administered Medications Discontinued Medications Sodium Chloride (Nss 1000ml) 500 mls @ 999 mls/hr IV .Q31M ONE Stop: 01/03/20 18:02 Last Infusion: 01/03/20 18:42 Dose: 0 mls/hr Documented by: [id number] Admin: 01/03/20 18:03 Dose: 999 mls/hr Documented by: [id number] Pantoprazole Sodium 80 mg/ (Dextrose) 100 mls @ 400 mls/hr IV NOW ONE Stop: 01/03/20 19:16 Last Infusion: 01/03/20 20:27 Dose: 0 mls/hr Documented by: [id number] Admin: 01/03/20 19:49 Dose: 400 mls/hr Documented by: [id number] Sodium Chloride (Nss 1000ml) 500 mls @ 999 mls/hr IV .Q31M ONE Stop: 01/03/20 19:33 Last Infusion: 01/03/20 20:26 Dose: 0 mls/hr Documented by: [id number] Admin: 01/03/20 19:49 Dose: 999 mls/hr Documented by: [id number] Insulin Human Regular (Novolin R U-100 Per Unit) 5 units IV NOW STA Stop: 01/03/20 17:33 Last Admin: 01/03/20 18:29 Dose: 5 units Documented by: [id number] Cosigned by: [id number] Morphine Sulfate (Morphine Sulfate) 4 mg IV NOW STA Stop: 01/03/20 17:16 Last Admin: 01/03/20 18:03 Dose: 4 mg Documented by: [id number] Ondansetron HCl (Zofran) 4 mg IV NOW STA Stop: 01/03/20 17:16 Last Admin: 01/03/20 18:02 Dose: 4 mg Documented by: [id number] Ondansetron HCl (Zofran) 4 mg IV NOW STA Stop: 01/03/20 18:49 Last Admin: 01/03/20 19:06 Dose: 4 mg Documented by: [id number] Critical Care Time Critical Care Time: Yes Total Critical Care Time: 34 I have personally spent approximately 34 minutes of critical care time in the direct management of this patient. This includes bedside care, interpretation of diagnostic studies, and testing, discussion with consultants, patient, and family members, and other required patient management activities. These minutes are in excess of all separately billable procedures. Medical Decision Making Differential Diagnosis GI bleed, diverticulitis, diverticulosis, colitis, anemia, pleurisy, costochondritis, pneumonia Medical Records Attestation: I reviewed the patient's medical records. The patient was seen here in November for seizure and abdominal pain. She had a CT of her head and abdomen pelvis which was unremarkable. She was discharged home after evaluation. Home Medications Current Medication List: was personally reviewed by me Laboratory Data Attestation: I reviewed the patient's lab results. Result diagrams: 01/03/20 17:25 01/03/20 17:25 Lab Results 01/03/20 01/03/20 01/03/20 Range/Units 17:25 17:25 17:26 WBC 10.68 (4.8-10.8) K/uL RBC 3.43 L (4.2-5.4) M/uL Hgb 10.6 L (12.0-16.0) g/dL Hct 31.2 L (37-47) % MCV 91.0 (80-100) fL MCH 30.9 (25-34) pg MCHC 34.0 (32-36) g/dL RDW Std Deviation 46.8 H (36.4-46.3) fL RDW Coeff of [place] 14.0 (11.5-14.5) % Plt Count 292 (130-400) K/uL MPV 10.8 H (7.4-10.4) fL Immature Gran % (Auto) 0.7 % Neut % (Auto) 81.3 % Lymph % (Auto) 10.0 % [place] % (Auto) 8.0 % Eos % (Auto) 0.0 % Baso % (Auto) 0.0 % Neut # (Auto) 8.69 H (1.4-6.5) K/uL Lymph # (Auto) 1.07 L (1.2-3.4) K/uL [place] # (Auto) 0.85 H (0.11-0.59) K/uL Eos # (Auto) 0.00 (0-0.5) K/uL Baso # (Auto) 0.00 (0-0.2) K/uL Immature Gran # (Auto) 0.07 H (0.00-0.02) K/uL VBG pH (7.36-7.41) Sodium 135 L (136-145) mmol/L Potassium 4.1 (3.5-5.1) mmol/L Chloride 91 L (98-107) mmol/L Carbon Dioxide 12 L (21-32) mmol/L Anion Gap 32.0 H (3-11) BUN 47 H (7-18) mg/dl Creatinine 4.93 H* (0.6-1.2) mg/dl Est Cr Clr Drug Dosing 10.7 ml/min Est GFR ( Amer) 11.0 Est GFR (Non-Af Amer) 9.5 BUN/Creatinine Ratio 9.6 L (10-20) Glucose 620 H* (70-99) mg/dl POC Glucose 575 H* (70-99) mg/dl Calcium 9.0 (8.5-10.1) mg/dl Total Bilirubin 0.8 (0.2-1) mg/dl AST 13 L (15-37) U/L ALT 231 H (12-78) U/L Alkaline Phosphatase 105 (45-117) U/L Troponin I < 0.015 (0-0.045) ng/ml Total Protein 8.2 (6.4-8.2) gm/dl Albumin 3.5 (3.4-5.0) gm/dl Globulin 4.7 H (2.5-4.0) gm/dl Albumin/Globulin Ratio 0.7 L (0.9-2) Lipase 253 (73-393) U/L Beta-Hydroxybutyric Acd 118.17 H (0.2-2.81) mg/dl Urine Color Urine Appearance (Clear) Urine pH (4.5-7.5) Ur Specific [place] (1.000-1.030) Urine Protein (Negative) Urine Glucose (UA) (Negative) Urine Ketones (Negative) Urine Blood (Negative) Urine Nitrite (Negative) Urine Bilirubin (Negative) Urine Urobilinogen (Negative) Ur Leukocyte Esterase (Negative) Urine WBC (Auto) (0-5) /hpf Urine RBC (Auto) (0-4) /hpf U Hyaline Cast (Auto) (0-5) /lpf U Epithel Cells (Auto) (0-5) /lpf Urine Bacteria (Auto) (Negative) Gastric Fluid pH Gastric Occult Blood (Negative) 01/03/20 01/03/20 01/03/20 Range/Units 17:28 18:20 19:34 WBC (4.8-10.8) K/uL RBC (4.2-5.4) M/uL Hgb (12.0-16.0) g/dL Hct (37-47) % MCV (80-100) fL MCH (25-34) pg MCHC (32-36) g/dL RDW Std Deviation (36.4-46.3) fL RDW Coeff of [place] (11.5-14.5) % Plt Count (130-400) K/uL MPV (7.4-10.4) fL Immature Gran % (Auto) % Neut % (Auto) % Lymph % (Auto) % [place] % (Auto) % Eos % (Auto) % Baso % (Auto) % Neut # (Auto) (1.4-6.5) K/uL Lymph # (Auto) (1.2-3.4) K/uL [place] # (Auto) (0.11-0.59) K/uL Eos # (Auto) (0-0.5) K/uL Baso # (Auto) (0-0.2) K/uL Immature Gran # (Auto) (0.00-0.02) K/uL VBG pH 7.48 H (7.36-7.41) Sodium (136-145) mmol/L Potassium (3.5-5.1) mmol/L Chloride (98-107) mmol/L Carbon Dioxide (21-32) mmol/L Anion Gap (3-11) BUN (7-18) mg/dl Creatinine (0.6-1.2) mg/dl Est Cr Clr Drug Dosing ml/min Est GFR ( Amer) Est GFR (Non-Af Amer) BUN/Creatinine Ratio (10-20) Glucose (70-99) mg/dl POC Glucose 562 H* (70-99) mg/dl Calcium (8.5-10.1) mg/dl Total Bilirubin (0.2-1) mg/dl AST (15-37) U/L ALT (12-78) U/L Alkaline Phosphatase (45-117) U/L Troponin I (0-0.045) ng/ml Total Protein (6.4-8.2) gm/dl Albumin (3.4-5.0) gm/dl Globulin (2.5-4.0) gm/dl Albumin/Globulin Ratio (0.9-2) Lipase (73-393) U/L Beta-Hydroxybutyric Acd (0.2-2.81) mg/dl Urine Color Urine Appearance (Clear) Urine pH (4.5-7.5) Ur Specific [place] (1.000-1.030) Urine Protein (Negative) Urine Glucose (UA) (Negative) Urine Ketones (Negative) Urine Blood (Negative) Urine Nitrite (Negative) Urine Bilirubin (Negative) Urine Urobilinogen (Negative) Ur Leukocyte Esterase (Negative) Urine WBC (Auto) (0-5) /hpf Urine RBC (Auto) (0-4) /hpf U Hyaline Cast (Auto) (0-5) /lpf U Epithel Cells (Auto) (0-5) /lpf Urine Bacteria (Auto) (Negative) Gastric Fluid pH 2 Gastric Occult Blood Positive A (Negative) 01/03/20 Range/Units 19:38 WBC (4.8-10.8) K/uL RBC (4.2-5.4) M/uL Hgb (12.0-16.0) g/dL Hct (37-47) % MCV (80-100) fL MCH (25-34) pg MCHC (32-36) g/dL RDW Std Deviation (36.4-46.3) fL RDW Coeff of [place] (11.5-14.5) % Plt Count (130-400) K/uL MPV (7.4-10.4) fL Immature Gran % (Auto) % Neut % (Auto) % Lymph % (Auto) % [place] % (Auto) % Eos % (Auto) % Baso % (Auto) % Neut # (Auto) (1.4-6.5) K/uL Lymph # (Auto) (1.2-3.4) K/uL [place] # (Auto) (0.11-0.59) K/uL Eos # (Auto) (0-0.5) K/uL Baso # (Auto) (0-0.2) K/uL Immature Gran # (Auto) (0.00-0.02) K/uL VBG pH (7.36-7.41) Sodium (136-145) mmol/L Potassium (3.5-5.1) mmol/L Chloride (98-107) mmol/L Carbon Dioxide (21-32) mmol/L Anion Gap (3-11) BUN (7-18) mg/dl Creatinine (0.6-1.2) mg/dl Est Cr Clr Drug Dosing ml/min Est GFR ( Amer) Est GFR (Non-Af Amer) BUN/Creatinine Ratio (10-20) Glucose (70-99) mg/dl POC Glucose (70-99) mg/dl Calcium (8.5-10.1) mg/dl Total Bilirubin (0.2-1) mg/dl AST (15-37) U/L ALT (12-78) U/L Alkaline Phosphatase (45-117) U/L Troponin I (0-0.045) ng/ml Total Protein (6.4-8.2) gm/dl Albumin (3.4-5.0) gm/dl Globulin (2.5-4.0) gm/dl Albumin/Globulin Ratio (0.9-2) Lipase (73-393) U/L Beta-Hydroxybutyric Acd (0.2-2.81) mg/dl Urine Color [place] Urine Appearance Clear (Clear) Urine pH 5.0 (4.5-7.5) Ur Specific [place] 1.022 (1.000-1.030) Urine Protein 2+ H (Negative) Urine Glucose (UA) 3+ H (Negative) Urine Ketones 3+ H (Negative) Urine Blood 3+ H (Negative) Urine Nitrite Negative (Negative) Urine Bilirubin Negative (Negative) Urine Urobilinogen Negative (Negative) Ur Leukocyte Esterase Negative (Negative) Urine WBC (Auto) 1-5 (0-5) /hpf Urine RBC (Auto) >30 H (0-4) /hpf U Hyaline Cast (Auto) 1-5 (0-5) /lpf U Epithel Cells (Auto) >30 H (0-5) /lpf Urine Bacteria (Auto) Negative (Negative) Gastric Fluid pH Gastric Occult Blood (Negative) Imaging Data Radiologist's Impression: SINGLE VIEW CHEST CLINICAL HISTORY: Cough. FINDINGS: An AP, portable, upright chest radiograph is compared to study dated 06/20/2019. The cardiomediastinal silhouette is unremarkable. The lungs and pleural spaces are clear. No pneumothorax is seen. The bony thorax is grossly intact. IMPRESSION: No active disease in the chest. ACT 112: Negative or not required by law. Electronically signed by: Davy Willson M.D. 01/03/2020 5:49 PM Dictated: 01/03/201748 Transcribed: 01/03/201748 CT SCAN OF THE ABDOMEN AND PELVIS WITHOUT IV CONTRAST CLINICAL HISTORY: Left-sided abdominal pain. Rectal bleeding. COMPARISON STUDY: Abdominal CT dated 11/09/2019. TECHNIQUE: CT scan of the abdomen and pelvis is performed from the lung bases to the proximal femora. Images are reviewed in the axial, sagittal, and coronal planes. IV contrast was not administered for this examination. The examination is suboptimal without IV contrast. There is also motion artifact. A dose lo wering technique was utilized adhering to the principles of ALARA. CT DOSE: 273.21 mGy.cm FINDINGS: Lung bases: The heart is normal in size and without pericardial effusion. There are coronary artery calcifications. The lung bases are clear. There is a moderate hiatal hernia. Liver: The unenhanced liver is normal in size, contour, and attenuation. There is no intrahepatic biliary ductal dilatation. Gallbladder: Surgically absent noting clips in the gallbladder fossa. Spleen: Normal in size and attenuation. Pancreas: The unenhanced pancreas is moderately atrophic and grossly unremarkable. Adrenal glands: Unremarkable. Kidneys: The unenhanced kidneys demonstrate cortical atrophy and are without hydronephrosis. There are bilateral renal vascular calcifications. No renal calculi are clearly identified. There is no evidence of contour deforming renal mass lesion. Abdominal vasculature: The abdominal aorta is normal in course and caliber noting moderate atherosclerotic calcification. Bowel: There is residual enteric contrast in the distal colon. No bowel obstruction is seen. The appendix is not identified and reported surgically absent Peritoneum: There is no intraperitoneal free air or abdominal ascites. There is a fat-containing umbilical hernia. Lymphadenopathy: None. Pelvic viscera: The bladder wall appears circumferentially thickened. The uterus is normal as visualized noting an intrauterine device in place. No adnexal lesion is seen. Skeletal structures: No lytic or blastic lesions are seen. There are large posterior discussed by complexes at L4-L5 and L5-S1. IMPRESSION: 1. The bladder wall appears circumferentially thickened. Correlation with clinical findings and urinalysis will be required. 2. Residual enteric contrast is present in the colon. No bowel obstruction is seen. 3. Moderate hiatal hernia. 4. Additional findings as above. ACT 112: Negative or not required by law. Electronically signed by: Davy Willson M.D. 01/03/2020 7:15 PM Dictated: 01/03/201904 Transcribed: 01/03/201904 Blood Pressure Blood Pressure Findings: Elevated blood pressure Blood Pressure Disposition: Referred to patients primary care provider LAZARUS Narrative I did evaluate the patient as noted above. She did complain of chest pain but it is very reproducible on exam. Bedside blood sugar was 620. IV access was established. I did treat her with a liter of normal saline IV. She was also given insulin 5 units IV. She started vomiting here and the emesis was brown appearing without gross blood. It was sent for Gastroccult which was positive. I did treat the patient with morphine and Zofran IV. She was given additional Zofran as she had repeated vomiting. I also ordered Protonix IV. I did place an order for continuous cardiac monitoring. The monitor showed normal sinus rhythm at a rate of 99. I did order and personally review the patient's 12-lead EKG as described above. I did order and personally reviewed the images of the patient's chest x-ray as described above. There is no evidence of pneumonia. I did order and review the patient's blood work as noted in the electronic medical record. She has hyperglycemia with an anion gap of 32. Carbon dioxide is 12. Troponin is negative. Beta hydroxybutyrate acid is 118. Her white blood cell count is 10.6. Hemoglobin is 10.6 as well. Hemoglobin from 11/09/2019 was 11.3. I did order a type and screen. I did order a CT of the abdomen and pelvis. I did review the images myself as well as the radiology report as described above. There is no evidence of acute process other than bladder wall thickening. Urine analysis does not show signs of a UTI. She does have a hiatal hernia. I did discuss the test results with the patient. Repeat glucose was 461. She will be hospitalized for further care and evaluation. I did discuss the case with the hospitalist and case coordinator. Impression & Plan Diabetic ketoacidosis, Left sided abdominal pain, Acute GI bleeding, Anemia Discharge Plan Visit Data *Final* Discharge Date/Time: 01/03/20 21:26 Chief Complaint: Rectal Bleed Stated Complaint: RECTAL BLEEDING ED Provider: Ruperto Pierce Discharge Problem: Diabetic ketoacidosis, Left sided abdominal pain, Acute GI bleeding, Anemia Patient Disposition: Admitted As Inpatient Discharge Instructions Interventions: ED Discharge Assessment Last Done: 01/03/20 21:26 Discharge Problem: Diabetic ketoacidosis Qualifiers: Diabetes mellitus type: type 1 Diabetes mellitus complication detail: without coma Qualified Code(s): E10.10 - Type 1 diabetes mellitus with ketoacidosis without coma Anemia Qualifiers: Anemia type: unspecified type Qualified Code(s): D64.9 - Anemia, unspecified
[2020-01-03] MEDS ORDERED: NovoLIN-R INSULIN PER UNIT CHARGE IV STA (17:32)
[2020-01-03] MEDS ORDERED: SODIUM CHLORIDE 0.9% 1000ML 500 ML IV ONE ×2 (17:32→19:03)
[2020-01-03 17:46] LABS: Hematocrit (blood only) 31.2 % (37-47); Hemoglobin 10.6 g/dL (12.0-16.0); Mean Corpuscular Hemoglobin 30.9 pg (25-34); Mean Platelet Volume 10.8 fL (7.4-10.4); Platelet Count 292 K/uL (130-400); RDW Standard Deviation 46.8 fL (36.4-46.3); Red Blood Count 3.43 M/uL (4.2-5.4); White Blood Count 10.68 K/uL (4.8-10.8)
--- NOTE | 2020-01-03 17:51 | XRay Report ---
SINGLE VIEW CHEST CLINICAL HISTORY: Cough. FINDINGS: An AP, portable, upright chest radiograph is compared to study dated 06/20/2019. The cardiom ediastinal silhouette is unremarkable. The lungs and pleural spaces are clear. No pneumothorax is see n. The bony thorax is grossly intact. IMPRESSION: No active disease in the chest. ACT 112: Negative or not required by law. Electronically signed by: Davy Willson M.D. 01/03/2020 5:49 PM
[2020-01-03 18:05] LABS: Alanine Aminotransferase 231 U/L (12-78); Albumin Globulin Ratio 0.7 (0.9-2); Albumin Level 3.5 gm/dl (3.4-5.0); Alkaline Phosphatase 105 U/L (45-117); Aspartate Aminotransferase 13 U/L (15-37); BUN Creatinine Ratio 9.6 (10-20); Bilirubin,Total 0.8 mg/dl (0.2-1); Blood Urea Nitrogen 47 mg/dl (7-18); Carbon Dioxide 12 mmol/L (21-32); Chloride 91 mmol/L (98-107); Creatinine Clr Calc Pharmacy 10.7 ml/min; Est GFR (Non-African American) 9.5; Globulin 4.7 gm/dl (2.5-4.0); Glucose 620 mg/dl (70-99); Lipase 253 U/L (73-393); Potassium 4.1 mmol/L (3.5-5.1); Sodium 135 mmol/L (136-145); Total Protein 8.2 gm/dl (6.4-8.2); Troponin I < 0.015 ng/ml (0-0.045)
[2020-01-03 18:06] LABS: Immature Granulocytes # (auto) 0.07 K/uL (0.00-0.02); Immature Granulocytes % (auto) 0.7 %; Lymphocytes # (auto) 1.07 K/uL (1.2-3.4); Monocytes # (auto) 0.85 K/uL (0.11-0.59); Neutrophils # (auto) 8.69 K/uL (1.4-6.5); Neutrophils % (auto) 81.3 %
[2020-01-03 18:24] LABS: Beta-Hydroxybutyrate 118.17 mg/dl (0.2-2.81)
[2020-01-03 18:56] LABS: Gastric Occult Blood Positive (Negative); pH Gastric Fluid 2
[2020-01-03] MEDS ORDERED: PANTOprazole 80 MG in DEXTROSE 5% 100 ML IV ONE ×2 (19:02→21:54)
--- NOTE | 2020-01-03 19:16 | CT Scan Report ---
CT SCAN OF THE ABDOMEN AND PELVIS WITHOUT IV CONTRAST CLINICAL HISTORY: Left-sided abdominal pain. Rectal bleeding. COMPARISON STUDY: Abdominal CT dated 11/09/2019. TECHNIQUE: CT scan of the abdomen and pelvis is performed from the lung bases to the proximal femora. Images are reviewed in the axial, sagittal, and coronal planes. IV contrast was not administered for this examination. The examination is suboptimal without IV contrast. There is also motion artifact. A dose lowering technique was utilized adhering to the principles of ALARA. CT DOSE: 273.21 mGy.cm FINDINGS: Lung bases: The heart is normal in size and without pericardial effusion. There are coronary artery c alcifications. The lung bases are clear. There is a moderate hiatal hernia. Liver: The unenhanced liver is normal in size, contour, and attenuation. There is no intrahepatic jasson iary ductal dilatation. Gallbladder: Surgically absent noting clips in the gallbladder fossa. Spleen: Normal in size and attenuation. Pancreas: The unenhanced pancreas is moderately atrophic and grossly unremarkable. Adrenal glands: Unremarkable. Kidneys: The unenhanced kidneys demonstrate cortical atrophy and are without hydronephrosis. There ar e bilateral renal vascular calcifications. No renal calculi are clearly identified. There is no evide nce of contour deforming renal mass lesion. Abdominal vasculature: The abdominal aorta is normal in course and caliber noting moderate atheroscle rotic calcification. Bowel: There is residual enteric contrast in the distal colon. No bowel obstruction is seen. The appe ndix is not identified and reported surgically absent Peritoneum: There is no intraperitoneal free air or abdominal ascites. There is a fat-containing umbi lical hernia. Lymphadenopathy: None. Pelvic viscera: The bladder wall appears circumferentially thickened. The uterus is normal as visuali zed noting an intrauterine device in place. No adnexal lesion is seen. Skeletal structures: No lytic or blastic lesions are seen. There are large posterior discussed by com plexes at L4-L5 and L5-S1. IMPRESSION: 1. The bladder wall appears circumferentially thickened. Correlation with clinical findings and urina lysis will be required. 2. Residual enteric contrast is present in the colon. No bowel obstruction is seen. 3. Moderate hiatal hernia. 4. Additional findings as above. ACT 112: Negative or not required by law. Electronically signed by: Davy Willson M.D. 01/03/2020 7:15 PM
[2020-01-03 20:02] LABS: Appearance Urine Clear (Clear); Bacteria Urine Automated Negative (Negative); Bilirubin Urine Negative (Negative); Blood Urine 3+ (Negative); Color Urine Orange; Epithelial Cell Urine Auto >30 /lpf (0-5); Glucose Urine UA 3+ (Negative); Ketones Urine 3+ (Negative); Leukocyte Esterase Urine Negative (Negative); Nitrite Urine Negative (Negative); Protein Urine 2+ (Negative); RBC Urine Automated >30 /hpf (0-4); Specific Gravity Urine 1.022 (1.000-1.030); Urobilinogen Urine Negative (Negative)
[2020-01-03] MEDS ORDERED: ALBUTEROL HFA 8 GM INHALER INH PRN (21:54)
[2020-01-03] MEDS ORDERED: PANTOPRAZOLE BOLUS/DRIP 1 EA IV STA (21:54)
[2020-01-03] MEDS ORDERED: DKA GOAL RANGE 150-250 mg/dl ONE (21:54)
[2020-01-03] MEDS ORDERED: DC ALL PREVIOUSLY ORDERED DIABETES MEDS ONE (21:54)
[2020-01-03] MEDS ORDERED: OXYCODONE/ACETAMINOPHEN 5mg/325mg TAB PO PRN (21:54)
[2020-01-03] MEDS ORDERED: SODIUM CHLORIDE 0.9% 1000ML 1,000 ML IV SCH (21:54)
[2020-01-03] MEDS ORDERED: ACETAMINOPHEN 325 MG TAB PO PRN (21:54)
[2020-01-03] MEDS ORDERED: POLYETHYLENE (MIRALAX) 17 GM PACK PO PRN (21:54)
[2020-01-03] MEDS ORDERED: NITROGLYCERIN SL 0.4 MG/TAB TAB SL PRN (21:54)
[2020-01-03] MEDS ORDERED: LORazepam 0.5 MG TAB PO PRN (21:54)
[2020-01-03] MEDS ORDERED: MoRPHine SULFATE 2 MG/ML CARP IV STA (21:54)
[2020-01-03] MEDS ORDERED: PNEUMOCOCCAL POLYSACCHARIDES 25 MCG/0.5 ML VIAL/SYR IM ONE (22:01)
[2020-01-03] MEDS ORDERED: PNEUMOCOCCAL ADMINISTRATION CHARGE ONE (22:01)
[2020-01-03] MEDS ORDERED: bisacodyL 5 MG TABEC PO PRN (22:20)
[2020-01-03] MEDS ORDERED: PHARMACY GLYCEMIC MGMT CONSULT PRN (22:26)
[2020-01-03] MEDS ORDERED: INSULIN REGULAR 250 UNITS in SODIUM CHLORIDE 0.9% 247.5 ML IV SCH (22:30)
[2020-01-03 22:40] LABS: Hematocrit (blood only) 26.9 % (37-47); Hemoglobin 9.3 g/dL (12.0-16.0)
[2020-01-03] MEDS: ONDANSETRON INJ 2 MG/ML 2 ML VIAL IV PRN (22:49)
[2020-01-03] MEDS: INSULIN ASPART 100 UNITS/ML 3 ML PEN SC SCH (22:58)
[2020-01-03] MEDS: PENDING D5 1/2NS+20mEq KCL IVF SCH (23:00)
[2020-01-03] MEDS: PENDING 1/2NSS+20mEq KCL IVF SCH (23:01)
[2020-01-03 23:09] LABS: BUN Creatinine Ratio 9.8 (10-20); Est GFR (African American) 11.4; Est GFR (Non-African American) 9.9; Magnesium 2.4 mg/dl (1.8-2.4); Phosphorus 1.6 mg/dl (2.5-4.9); Potassium 3.9 mmol/L (3.5-5.1)
[2020-01-03 23:38] LABS: Beta-Hydroxybutyrate 69.75 mg/dl (0.2-2.81)
[2020-01-04] MEDS: lamoTRIgine 25 MG TAB PO SCH ×2 (00:22→20:10)
[2020-01-04] MEDS: PANTOprazole 40 MG in DEXTROSE 5% 100 ML IV SCH ×5 (00:22→19:13)
[2020-01-04] MEDS: ATORVASTATIN 40 MG TAB PO SCH ×2 (00:23→20:11)
[2020-01-04] MEDS: ARIPiprazole 5 MG TAB PO SCH ×2 (00:23→20:11)
[2020-01-04] MEDS: levETIRAcetam 500 MG TAB PO SCH ×3 (00:23→20:10)
[2020-01-04] MEDS: NEPHROCAPS PO SCH ×2 (00:24→20:15)
[2020-01-04] MEDS: SERTRALINE HCL 100 MG TABLET PO SCH ×2 (00:25→20:10)
[2020-01-04] MEDS: TRAZODONE HCL 50 MG TAB PO PRN (01:13)
[2020-01-04] MEDS: PENDING D5 1/2NS+20mEq KCL IVF SCH ×3 (01:25→04:30)
[2020-01-04] MEDS: PENDING 1/2NSS+20mEq KCL IVF SCH ×2 (01:25→03:04)
--- NOTE | 2020-01-04 01:56 | History and Physical Report ---
DATE OF ADMISSION: 01/03/2020 CHIEF COMPLAINT: Abdominal pain, nausea, vomiting and rectal bleeding. 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 treated with biliary sphincterotomy and balloon sphincteroplasty, history of left basal ganglia stroke in November 2018, history of right sided weakness, anemia of chronic kidney disease, bipolar disorder, hypertension, history of coronary artery disease, history of labile hypertension, orthostatic hypotension, history of urinary retention, history of generalized seizures, iron deficiency anemia, noncompliance with medical treatment, history of schizophrenia, ambulatory dysfunction, comes because of complaining of abdominal pain starting today with some nausea, vomiting, and also she noticed some bleeding per rectum and sugars were running high and she was feeling somewhat feverish at home. Earlier she has some chest pain but that has resolved now. She denies any shortness of breath. She has some cough. No loss of sense of smell or taste. No headache. She is legally blind, has some occasional runny nose, no sore throat, no dysphagia. Appetite is okay. Ambulates with help of walker. Lives with her . In the ER, she vomited, it was some what blackish brownish color and the gastric contents tested , hemoccult positive. Hemoglobin stable at 10.6. Hemodynamics are stable. Her blood glucose was 620, beta hydroxybutyric acid on 118. Lipase was 253. CT of abdomen and pelvis was unremarkable. Currently, resting comfortably. ALLERGIES: FISH CONTAINING PRODUCTS, LATEX. PAST MEDICAL HISTORY: As mentioned above. PAST SURGICAL HISTORY: AV access, breast lesion excision, colonoscopy, EGD with endoscopic ultrasound, ERCP, insertion of tunneled catheter, right AV fistulogram, laparoscopic appendectomy, laser surgery of inner eye strands, left side, repair of detached retina on the left side, ligation of oviducts, repair of detached retina on right side. MEDICATIONS: The patient is on Tylenol 325 mg p.o. q. 4 hours p.r.n., Proventil 2 puffs q. 4 hours p.r.n., Abilify 5 mg p.o. at bedtime, atorvastatin 40 mg p.o. at bedtime, bisacodyl 10 mg daily p.r.n., calcium acetate 667 mg p.o. t.i.d. with meals, Coreg 12.5 mg p.o. b.i.d., vitamin D 50,000 units p.o. weekly, Breo Ellipta 1 inhalation daily, hydroxyzine 25 mg p.o. t.i.d. p.r.n., insulin NovoLog 30 units subcutaneous t.i.d. with meals, Lamictal 50 mg at bedtime, Lantus 12 units subcutaneous a.m., Keppra 500 mg p.o. b.i.d., lorazepam 0.5 mg p.o. b.i.d. p.r.n., multivitamin 1 tablet p.o. a.m., Percocet as directed, Protonix 40 mg p.o. daily, MiraLax 17 grams p.o. b.i.d. p.r.n., Renal Caps 1 capsule p.o. a.m., Zoloft 100 mg p.o. at bedtime, Renvela 800 mg p.o. with meals, trazodone 75 mg p.o. at bedtime p.r.n. FAMILY HISTORY: Significant for mother has heart disorder, hypertension, eye problems. Father has eye problems. Sister has thyroid disorder. Maternal aunt has breast cancer, niece has breast cancer. SOCIAL HISTORY: . Former smoker, quit in 2005, prior smoked average of 0.2 packs a day for 21 years. No alcohol use, no drug use. REVIEW OF SYMPTOMS: As per HPI. Rest of review of symptoms negative. PHYSICAL EXAMINATION: GENERAL: The patient is of moderate build, not in acute distress. VITAL SIGNS: Temperature 36.6, pulse 90, respiratory rate 22, blood pressure 176/84, oxygen 100% on room air. HEENT: Head atraumatic. Eyes, legally blind. NECK: No JVD, no neck masses seen. CARDIOVASCULAR: S1, S2 heard, regular rate and rhythm, no murmur, no gallop. RESPIRATORY SYSTEM: Normal AP diameter. No accessory muscle use. No wheezing, no crackles. ABDOMEN: Soft, bowel sounds present. Diffuse tenderness present. Mild guarding, no rigidity. No distention. CENTRAL NERVOUS SYSTEM: Alert and awake. Speech is clear. Judgment good. Obeys commands. Moves extremities. EXTREMITIES: No edema, no erythema seen. LABORATORY DATA: WBC 10.6, hemoglobin 10.6, hematocrit 31.2, platelets 292. Venous pH is 7.4. Sodium 135, potassium 4.1, chloride 91, CO2 12, anion gap 32, BUN 47, creatinine 4.9, glucose 620, calcium 9, total bilirubin 0.8, AST 13, ALT 231, alkaline phosphatase 105. Troponin I less than 0.015. Lipase 253, beta hydroxybutyric acid 118. Urinalysis positive for protein, glucose, ketones, blood. Gastric occult blood is positive. IMAGING: CT of the abdomen and pelvis, the bladder wall appears circumferentially thick in correlation with clinical findings. Again urinalysis will be required. no bowel obstruction is seen. Moderate hiatal hernia. Initial findings as above. Chest x-ray: No acute disease in the chest. EKG: Sinus tachycardia at a rate of 101. Nonspecific ST or T-wave abnormality seen. ASSESSMENT AND PLAN: This is a 49-year-old female who presents with diabetic ketoacidosis, abdominal pain, nausea, vomiting and also gastrointestinal bleed. 1. Diabetic ketoacidosis: The patient presents with abdominal pain, nausea, vomiting and sugars are running in 620 with anion gap metabolic acidosis secondary to diabetic ketoacidosis. Will start with insulin drip protocol, DKA protocol, because she has end-stage renal disease, we will place her on IV normal saline 100 mL per hour and monitor for volume overload. Blood sugar checks q. 1 hour, labs q. 4 hours as per protocol. Closely monitor on tele floor. Pharmacy and dietitian consult. 2. Gastrointestinal bleed: The patient has vomiting in the ER which was Hemoccult positive. The patient also complaints of rectal bleed. Hemoglobin stable at 10.6. Blood consent was obtained. We will follow H and H q. 6 hours. Protonix drip and consult GI. Currently, the is patient n.p.o. We will closely monitor. 3. End-stage renal disease: On hemodialysis. Consult nephrology. 4. Hypertension: Will continue home medication, Coreg and monitor the blood pressure. 5. History of cerebrovascular accident: On statin. 6. History of seizures: On Keppra and Ativan p.r.n. 7. History of depression, anxiety and bipolar: Continue Zoloft, Lamictal and Abilify. 8. History of hyperlipidemia: On statin. 9. History of gastroesophageal reflux disease: Currently on PPI drip. 10. History of chronic diastolic congestive heart failure. Getting fluids. Monitor for volume overload.On HD 11. History of diabetic gastroparesis: We will monitor. 12. History of pancreatitis: Status post ERCP showing sphincter of Oddi dysfunction status post placement of sphincterectomy. Currently lipase is normal. 13. Deep venous thrombosis prophylaxis: Sequential compression devices. DISPOSITION: Closely monitor in tele floor. Level 1 full code. MTDD
[2020-01-04 02:43] LABS: BUN Creatinine Ratio 9.3 (10-20); Calcium 7.8 mg/dl (8.5-10.1); Creatinine Clr Calc Pharmacy 10.3 ml/min; Est GFR (African American) 10.5; Est GFR (Non-African American) 9.1; Magnesium 2.2 mg/dl (1.8-2.4); Phosphorus 1.4 mg/dl (2.5-4.9); Potassium 3.3 mmol/L (3.5-5.1)
[2020-01-04] MEDS ORDERED: Nursing to Pharmacy Communication SCH ×2 (03:00→04:15)
[2020-01-04] MEDS ORDERED: SODIUM CHLOR 0.45% + 20MEQ KCL 20 MEQ/1,000 ML BAG IV SCH (03:00)
[2020-01-04] MEDS ORDERED: POTASSIUM CHLORIDE 20 MEQ/15 ML UDC PO STA (03:15)
[2020-01-04] MEDS ORDERED: DEXTROSE 50% 50 ML SYRINGE IV PRN (04:15)
[2020-01-04] MEDS ORDERED: GLUCOSE 10 TABS/TUBE PO PRN (04:15)
[2020-01-04] MEDS ORDERED: GLUCOSE 40% GEL 15 GM TUBE PO PRN (04:15)
[2020-01-04] MEDS ORDERED: GLUCAGON FOR INJ 1 MG VIAL SQ PRN (04:15)
[2020-01-04] MEDS ORDERED: D5W AND 1/2NSS + 20MEQ KCL 20 MEQ/1,000 ML BAG IV SCH (04:15)
[2020-01-04 05:48] LABS: Hematocrit (blood only) 24.4 % (37-47); Hemoglobin 8.6 g/dL (12.0-16.0)
[2020-01-04 06:26] LABS: BUN Creatinine Ratio 9.6 (10-20); Blood Urea Nitrogen 49 mg/dl (7-18); Calcium 7.9 mg/dl (8.5-10.1); Carbon Dioxide 32 mmol/L (21-32); Chloride 106 mmol/L (98-107); Creatinine Clr Calc Pharmacy 10.4 ml/min; Est GFR (African American) 10.6; Est GFR (Non-African American) 9.1; Glucose 139 mg/dl (70-99); Phosphorus 1.4 mg/dl (2.5-4.9); Sodium 144 mmol/L (136-145)
[2020-01-04] MEDS: ONDANSETRON INJ 2 MG/ML 2 ML VIAL IV PRN ×2 (06:45→10:13)
[2020-01-04] MEDS: MoRPHine SULFATE 4 MG/ML 1 ML CARP\\VIAL IV PRN ×3 (06:45→16:11)
[2020-01-04 07:28] LABS: Potassium 2.9 mmol/L (3.5-5.1)
[2020-01-04 07:30] LABS: Magnesium 2.3 mg/dl (1.8-2.4)
[2020-01-04] MEDS ORDERED: SODIUM PHOSPHATE 3 MMOL/1 ML 5 ML VIAL IV ONE (08:00)
[2020-01-04] MEDS: INSULIN ASPART 100 UNITS/ML 3 ML PEN SC SCH (08:14)
[2020-01-04] MEDS ORDERED: SODIUM PHOSPHATE 30 MMOL in SODIUM CHLORIDE 0.9% 500 ML IV ONE (08:30)
[2020-01-04] MEDS: POTASSIUM CHLORIDE 20 MEQ TABCR PO SCH ×2 (08:31→11:51)
[2020-01-04] MEDS: carvediloL 12.5 MG TAB PO SCH ×2 (08:32→16:16)
[2020-01-04] MEDS: CALCIUM ACETATE 667 MG CAP/TAB PO SCH ×3 (08:32→16:16)
[2020-01-04] MEDS: SEVELAMER HCL 800 MG TABLET PO SCH ×3 (08:33→16:17)
[2020-01-04] MEDS ORDERED: SODIUM CHLORIDE 0.9% 1000ML 1,000 ML IV SCH (09:15)
[2020-01-04] MEDS ORDERED: INSULIN GLARGINE SOLOSTAR 100 UNITS/ML 3 ML PEN SC ONE (09:30)
[2020-01-04] MEDS: FLUTICASONE/VILANTEROL 100/25MCG 14 PUFFS/INHALER INH SCH (09:56)
[2020-01-04 11:03] LABS: Hematocrit (blood only) 24.4 % (37-47); Hemoglobin 8.4 g/dL (12.0-16.0)
--- NOTE | 2020-01-04 11:28 | Pharmacy Report ---
Glycemic Control Consultation - Date of Service January 04, 2020 - Scope Scope: Glycemic Pharmacist consulted for glycemic control and to write orders per [facility] inpatient glycemic control protocol. - Objective Weight: 58 kg Accuchecks BSG (last 24hrs): 01/03/20 01/03/20 01/03/20 17:25 17:26 17:28 Glucose 620 H* POC Glucose 575 H* 562 H* 01/03/20 01/03/20 01/04/20 21:13 22:31 00:05 Glucose 449 H* POC Glucose 461 H* 408 H* 01/04/20 01/04/20 01/04/20 01:00 01:43 02:02 Glucose 298 H POC Glucose 343 H* 279 H 01/04/20 01/04/20 01/04/20 02:56 04:01 05:26 Glucose 139 H POC Glucose 282 H 183 H 01/04/20 01/04/20 01/04/20 05:30 06:26 07:27 Glucose POC Glucose 151 H 154 H 128 H 01/04/20 01/04/20 01/04/20 08:27 09:29 10:33 Glucose POC Glucose 155 H 142 H 168 H Laboratory Data (last 24hrs): 01/03/20 01/03/20 01/04/20 17:25 22:31 01:43 Potassium 4.1 3.9 3.3 L D Carbon Dioxide 12 L 21 29 Anion Gap 32.0 H 20.0 H 12.0 H Creatinine 4.93 H* 4.77 H* 5.11 H* D Est Cr Clr Drug Dosing 10.7 11.0 10.3 Beta-Hydroxybutyric Acd 118.17 H 69.75 H 01/04/20 01/04/20 05:26 06:41 Potassium TNP 2.9 L Carbon Dioxide 32 Anion Gap 6.0 Creatinine 5.08 H* Est Cr Clr Drug Dosing 10.4 Beta-Hydroxybutyric Acd HbA1c: Hemoglobin A1c TN 01/04/20 01:43 - Recent Pertinent Medications Outpatient Anti-diabetic Regimen: * Lantus 12 units SC qAM * Novolog 13 units TIDM * A1c = 7.8 % (01/04/20) - Assessment & Plan Assessment & Plan: ASSESSMENT: * AM is a 49 year old female admitted on evening of 01/02 with DKA * Initial labs: BSG of 620 mg/dL, CO2: 12, anion gap: 32, BHA: 118 - insulin gtt initiated last evening * Labs much improved this morning - indicating resolution of DKA * Managing hospitalist agreeable to insulin drip transition today * Ordered Lantus 10 units x 1 to facilitate drip transition * Will utilize regular insulin ACHS based on success with this during previous admission * Per RN - patient has poor appetite so will be conservative with initial dosing * Protonix gtt infusing for possible GI bleed PLAN FOR INPATIENT GLYCEMIC CONTROL: * Insulin drip discontinued today around 1400 * 4 units of SC regular insulin given to facilitate drip transition * Basal insulin * Lantus 10 units SC daily * Bolus insulin - will utilize looser Novolog parameters than previous admission given poor appetite at this time * Regular insulin per scale ACHS or Q6hrs while NPO * Goal Range: Low 120 mg/dL - High 160 mg/dL * Correction Factor: 45 mg/dL/unit * Nutritional / Prandial insulin per carb ratio of 1 unit per 15 grams CHO consumed * Please note that the plan above was derived based on current level of insulin resistance and hospital stress. These recommendations are appropriate for inpatient admission only. Plan of care upon discharge will need to be reassessed to avoid potential outpatient hypo/hyperglycemia. Thank you.
[2020-01-04 11:52] LABS: BUN Creatinine Ratio 9.3 (10-20); Calcium 7.8 mg/dl (8.5-10.1); Creatinine Clr Calc Pharmacy 10.5 ml/min; Est GFR (African American) 10.7; Est GFR (Non-African American) 9.3; Magnesium 2.1 mg/dl (1.8-2.4); Phosphorus 2.8 mg/dl (2.5-4.9); Potassium 3.4 mmol/L (3.5-5.1)
[2020-01-04] MEDS: INSULIN HUMAN REGULAR SC SCH ×3 (12:15→20:23)
--- NOTE | 2020-01-04 13:26 | Gastrointestinal Consultation ---
Date of Consultation January 04, 2020 Assessment & Plan (1) Vomiting: Ms. Luu is a 49 yr old female with reports of rectal bleeding, nausea, vomiting. Recurrent nausea/vomiting likely secondary to gastroparesis and uremia. Candidiasis is also considered a possible cause of vomiting. Plan: 1. Would defer repeat EGD in light of stable Hb and lack of documented gross GI bleeding since arrival. 2. Antiemetics 3. Will advance diet and follow hb, outputs. Present on Admission?: Yes Supervising Physician Co-Signing Physician Notes I have personally seen and examined the patient with AMERICA Fonseca on 01/04/2020. Her note reflects my exam and findings. I agree with her impression and plan. No plans for endoscopy. Follow H/H. Jesus Aiken M.D. History of Present Illness Reason for Consultation: gi bleed Requesting Physician: Dr. Thurston Attending Physician: Arpita Ramos, DO History of Present Illness Ms. Laura Luu is a 49 yr old female pt of Dr. Santo with a hx of DM-1, ESRD on dialysis, bipolar, schizophrenia, gastroparesis, presented to the emergency department with complaint of left mid abdominal pain and bloody diarrhea since yesterday . On arrival, hemoglobin was 9.3, down from earlier this month of 10. Today, hemoglobin is 8.6. BUN and creatinine are of course elevated because she has end-stage renal disease. In the ED, emesis was occult positive. I spoke to her nurse who states that she has not had any vomiting diarrhea or bowel movements on his shift or night baker. Most recent EGD on 05/28/19 with ERCP with sphincterotomy for SOD without mucosal abnormalities. Most recent colonoscopy in 2017 with a 5mm polyp. Allergies Allergy/AdvReac Type Severity Reaction Status Date / Time Fish Containing Products Allergy Mild Hives Verified 01/03/20 18:06 latex Allergy Mild hives Verified 01/03/20 18:06 Home Medications Home Medications Medication Instructions Recorded Confirmed Type Miller Caps 1 cap PO QPM 12/19/18 01/03/20 History albuterol sulfate [Proventil HFA] 2 puff INHALATION Q4H PRN 12/19/18 01/03/20 History bisacodyl 10 mg PO DAILY PRN 12/19/18 01/03/20 History carvedilol [Coreg] 12.5 mg PO BIDM 12/19/18 01/03/20 History ergocalciferol (vitamin D2) 50,000 unit PO WK 12/19/18 01/03/20 History [Vitamin D2] multivitamin 1 tab PO QAM 12/19/18 01/03/20 History pantoprazole [Protonix] 40 mg PO QAM 12/19/18 01/03/20 History polyethylene glycol 3350 [Miralax] 17 g PO BID PRN 12/19/18 01/03/20 History aripiprazole [Abilify] 5 mg PO HS 05/20/19 01/03/20 History levetiracetam [Keppra] 500 mg PO BID 06/20/19 01/03/20 History Lantus Solostar U-100 Insulin 12 unit SUBCUT QAM 08/01/19 01/03/20 History acetaminophen [Tylenol] 325 mg PO Q4H PRN 08/01/19 01/03/20 History atorvastatin [Lipitor] 40 mg PO HS 08/01/19 01/03/20 History oxycodone-acetaminophen [Percocet] See Rx Instructions .ROUTE .COMPLEX 08/01/19 01/03/20 History sertraline [Zoloft] 100 mg PO HS 08/01/19 01/03/20 History trazodone 75 mg PO HS PRN 08/01/19 01/03/20 History calcium acetate(phosphat bind) 667 mg PO TIDM 11/09/19 01/03/20 History hydroxyzine HCl 25 mg PO TID PRN 11/09/19 01/03/20 History insulin aspart U-100 [Novolog 13 unit SUBCUT TIDM 11/09/19 01/03/20 History U-100 Insulin aspart] lamotrigine [Lamictal] 50 mg PO HS 11/09/19 01/03/20 History sevelamer carbonate [Renvela] 800 mg PO UD 11/09/19 01/03/20 History fluticasone furoate-vilanterol 1 inh INHALATION DAILY 01/03/20 01/03/20 History [Breo Ellipta] lorazepam 0.5 mg PO BID PRN 01/03/20 01/03/20 History Patient History Medical History Anemia due to chronic kidney disease (Chronic) Arteriovenous fistula for hemodialysis in place, primary (Chronic) Bipolar disorder (Chronic) CKD (chronic kidney disease) stage V requiring chronic dialysis Coronary artery disease (Chronic) "2016 - cardiac catheterization showing nonobstructive coronary disease Stress test 06/2017 - possible small area of ischemia in the anterior wall" CVA (cerebral vascular accident) (Chronic) 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 history of CVA in 2018 Residual R sided weakness Depression (Chronic) Diabetic gastroparesis (Chronic) Diastolic heart failure (Chronic) DM type 1 (diabetes mellitus, type 1) (Chronic) ESRD (end stage renal disease) on dialysis GERD (gastroesophageal reflux disease) (Chronic) History of GI bleed (Chronic) Hyperlipidemia (Chronic) Hypertension (Chronic) Seizure (Chronic) Surgical History Hx of appendectomy (Inactive) Hx of cholecystectomy (Inactive) Hx of tubal ligation (Inactive) Family History Mother Coronary heart disease Hypertension Father Coronary heart disease Other No significant family history Social History Smoking Status: Never smoker Tobacco Type: Cigarettes Second Hand Exposure: No; Hx Alcohol Use: No Hx Substance Use: No Preferred Language: Brazilian Communication Ability: Effective Change Management Administrator Required: No Beliefs That Will Affect Care: None marital status: Single Current Living Situation: Spouse current occupational status: unemployed Feels Safe at Home: Yes Safety Concerns: Feels Safe At This Time Review of Systems Constitutional: + weakness Ear, Nose, Mouth, Throat: no problem reported Respiratory: no cough, no dyspnea and no pain on inspiration Cardiovascular: no chest pain Gastrointestinal: + abdominal pain, + nausea, + vomiting and + blood in stools; no bloating Musculoskeletal: no back pain and no joint pain Integumentary: no rash, no erythema and no pruritus no jaundice Neurologic: + confusion (denies) and + memory loss (denies) Psychiatric: + depression (history of depression; denies recent worsening or thoughts of self harm) Physical Exam Constitutional: WD/WN, vitals as above Eyes: PERRL, conjunctivae normal, anicteric sclerae ENMT: external ear and nose normal, oropharynx normal Neck: trachea midline, no thyromegaly Respiratory: normal respiratory effort, lungs clear to auscultation Gastrointestinal (Abdomen): Percussion/Palpation: + abdomen tender (moderate left mid abdomen tenderness on palpation) and abdomen soft; no ascites Skin: no rashes, warm and dry Neurologic: PERRL, EOMI, accommodation nl, no face palsy, no dysarthria Psychiatric: affect dull; poor eye contact Results & Data ([facility]) Vital Signs (Past 12 Hours) Vital Signs Temp Pulse Pulse Resp BP Pulse Ox 01/04/20 11:35 37.2 C 68 18 128/52 L 97 01/04/20 08:00 83 01/04/20 07:56 37.0 C 70 18 127/63 97 01/04/20 03:11 37.0 C 76 18 147/63 H 97 Laboratory Results WBC 10, hemoglobin 9, hematocrit 26, platelets 292, sodium 145, potassium 3.4, BUN 46, creatinine 5, glucose [address] abd/pelvis 01/02 w/o contrast: 1. The bladder wall appears circumferentially thickened. Correlation with clinical findings and urinalysis will be required. 2. Residual enteric contrast is present in the colon. No bowel obstruction is seen. 3. Moderate hiatal hernia. 4. Additional findings as above. (1) Vomiting Nausea presence: unspecified Vomiting Intractability: non-intractable Vomiting type: unspecified Qualified Code(s): R11.10 - Vomiting, unspecified
[2020-01-04] MEDS ORDERED: INSULIN HUMAN REGULAR SC ONE (13:45)
--- NOTE | 2020-01-04 13:52 | Hospitalist Progress Note ---
Date of Service January 04, 2020 Assessment & Plan (1) Diabetic ketoacidosis: Gap closed overnight. Pt still not tolerating PO 2/2 severe nausea and abdominal pain. Cont basal bolus with carb coverage. Wean insulin drip off per pharmacy (2) Abdominal pain: ? if secondary to DKA. Appreciate GI recommendations (3) Yeast infection: Diflucan (4) Anemia: Likely multifactorial including 2/2 anemia of CKD and frequent phlebotomy (5) CKD (chronic kidney disease) stage V requiring chronic dialysis: Inpatient HD per nephro (6) DVT prophylaxis: SCDs in setting of possible GI bleeding Full code Dispo-to home when medically stable and tolerating PO. Arpita Ramos DO [facility]ist Admission and Anticipated Discharge Date Admission Date: January 03, 2020 Subjective doing poorly today nausea present. reports severe abdominal pain GI not planning a scope her at this time. Review of Systems Review of Systems: All systems reviewed & are unremarkable except as noted in Subjective Physical Exam Physical Exam: CONSTITUTIONAL: WNWD, vitals as above, generally ill-appearing EYES: normal conjunctivae, no scleral icterus ENT: external ear and nose normal, oropharynx clear, MMM RESPIRATORY: clear to auscultation bilaterally, no crackles, rales or wheezes, normal respiratory effort CARDIOVASCULAR: regular rate and rhythm, S1 and 2 heard without murmurs, gallops or rubs, no JVD, no peripheral edema GASTROINTESTINAL: normal bowel sounds, soft, nontender, nondistended MUSCULOSKELETAL: strength 5/5 throughout, head is normocephalic and atraumatic, SKIN: warm and dry NEUROLOGIC: no facial palsy, no dysarthria. CN 2-12 grossly intact, normal cognition, no gross focal deficits. PSYCHIATRIC: alert cooperative and oriented Results & Data Results & Data ([facility]) Vital Signs (Past 12 Hours) Vital Signs Temp Pulse Pulse Resp BP Pulse Ox 01/04/20 11:35 37.2 C 68 18 128/52 L 97 01/04/20 08:00 83 01/04/20 07:56 37.0 C 70 18 127/63 97 01/04/20 03:11 37.0 C 76 18 147/63 H 97 Laboratory Results Short CBC 01/03/20 01/03/20 01/04/20 Range/Units 17:25 22:31 05:26 WBC 10.68 (4.8-10.8) K/uL Hgb 10.6 L 9.3 L 8.6 L (12.0-16.0) g/dL Hct 31.2 L 26.9 L 24.4 L (37-47) % Plt Count 292 (130-400) K/uL 01/04/20 Range/Units 10:51 WBC (4.8-10.8) K/uL Hgb 8.4 L (12.0-16.0) g/dL Hct 24.4 L (37-47) % Plt Count (130-400) K/uL BMP 01/03/20 01/03/20 01/04/20 17:25 22:31 01:43 Sodium 135 L 138 144 Potassium 4.1 3.9 3.3 L D Chloride 91 L 97 L 103 Carbon Dioxide 12 L 21 29 BUN 47 H 48 H 48 H Creatinine 4.93 H* 4.77 H* 5.11 H* D Glucose 620 H* 449 H* 298 H Calcium 9.0 8.0 L 7.8 L 01/04/20 01/04/20 01/04/20 05:26 06:41 10:51 Sodium 144 145 Potassium TNP 2.9 L 3.4 L D Chloride 106 107 Carbon Dioxide 32 28 BUN 49 H 46 H Creatinine 5.08 H* 5.02 H* Glucose 139 H 169 H Calcium 7.9 L 7.8 L Cardiac Enzymes 01/03/20 Range/Units 17:25 Troponin I < 0.015 (0-0.045) ng/ml Liver Function 01/03/20 Range/Units 17:25 Total Bilirubin 0.8 (0.2-1) mg/dl AST 13 L (15-37) U/L ALT 231 H (12-78) U/L Alkaline Phosphatase 105 (45-117) U/L Albumin 3.5 (3.4-5.0) gm/dl Urine 01/03/20 Range/Units 19:38 Urine Color [place] Urine Appearance Clear (Clear) Urine pH 5.0 (4.5-7.5) Ur Specific [place] 1.022 (1.000-1.030) Urine Protein 2+ H (Negative) Urine Glucose (UA) 3+ H (Negative) Medications Administered Current Inpatient Medications Acetaminophen (Tylenol) 650 mg PO Q4H PRN PRN Reason: Pain or Fever Stop: 08/25/20 21:53 Albuterol (Ventolin Hfa) 2 puffs INH Q4H PRN PRN Reason: Wheezing Stop: 02/02/20 21:53 Aripiprazole (Abilify) 5 mg PO HS SARAH Stop: 02/02/20 21:53 Last Admin: 01/04/20 00:23 Dose: 5 mg Documented by: Atorvastatin Calcium (Lipitor) 40 mg PO HS SARAH Stop: 02/02/20 21:53 Last Admin: 01/04/20 00:23 Dose: 40 mg Documented by: Bisacodyl (Dulcolax) 10 mg PO DAILY PRN PRN Reason: Constipation Stop: 02/02/20 22:19 Calcium Acetate (Phoslo) 667 mg PO TIDM SARAH Stop: 02/03/20 07:59 Last Admin: 01/04/20 11:52 Dose: 667 mg Documented by: Carvedilol (Coreg) 12.5 mg PO BIDM SARAH Stop: 02/03/20 07:59 Last Admin: 01/04/20 08:32 Dose: 12.5 mg Documented by: Dextrose (Dextrose 50%) 25 - 50 ml IV UD PRN; Protocol PRN Reason: Hypoglycemia Protocol Stop: 02/03/20 04:14 Fluticasone/Vilanterol (Breo Ellipta 100/25 Mcg Inh) 1 puffs INH DAILY SARAH Stop: 02/03/20 08:59 Last Admin: 01/04/20 09:56 Dose: 1 puffs Documented by: Glucagon (Glucagen) 1 mg SQ UD PRN; Protocol PRN Reason: Hypoglycemia Protocol Stop: 02/03/20 04:14 Glucose (Glucose 40%) 15 - 30 gm PO UD PRN; Protocol PRN Reason: Hypoglycemia Protocol Stop: 02/03/20 04:14 Glucose (Dex4 Glucose) 4 - 8 tabs PO UD PRN; Protocol PRN Reason: Hypoglycemia Protocol Stop: 02/03/20 04:14 Hydroxyzine HCl (Vistaril) 25 mg PO TID PRN PRN Reason: Unknown Stop: 02/02/20 21:53 Pantoprazole Sodium 40 mg/ (Dextrose) 100 mls @ 20 mls/hr IV Q5H SARAH Stop: 02/02/20 22:29 Last Admin: 01/04/20 08:35 Dose: 8 mg/hr, 20 mls/hr Documented by: Sodium Phosphate 30 mmol/ (Sodium Chloride) 510 mls @ 88 mls/hr IV ONE ONE Stop: 01/04/20 14:17 Last Admin: 01/04/20 09:57 Dose: 88 mls/hr Documented by: Sodium Chloride (Nss 1000ml) 1,000 mls @ 80 mls/hr IV .[id number] [facility] Stop: 02/03/20 09:14 Last Admin: 01/04/20 09:56 Dose: 80 mls/hr Documented by: Insulin Glargine (Lantus Solostar Pen) 10 units SC DAILY [facility] Stop: 02/04/20 08:59 Insulin Human Regular (Novolin R) 0 units SC ACHS [facility] Stop: 02/03/20 11:29 Last Admin: 01/04/20 12:15 Dose: 2 units Documented by: Lamotrigine (Lamictal) 50 mg PO HS [facility] Stop: 02/02/20 21:53 Last Admin: 01/04/20 00:22 Dose: 50 mg Documented by: Levetiracetam (Keppra) 500 mg PO BID [facility] Stop: 02/02/20 21:53 Last Admin: 01/04/20 08:32 Dose: 500 mg Documented by: Lorazepam (Ativan) 0.5 mg PO BID PRN PRN Reason: Anxiety Stop: 02/02/20 21:53 Miscellaneous (Carbohydrates For Hypoglycemia) 15 - 30 gm PO UD PRN PRN Reason: Hypoglycemia Treatment Stop: 02/03/20 04:14 Miscellaneous Information (Consult Glycemic Management Pharmacy) 1 ea N/A UD PRN PRN Reason: Consult Stop: 02/02/20 22:25 Morphine Sulfate (Morphine Sulfate) 3 mg IV Q3H PRN PRN Reason: Pain Stop: 01/17/20 21:53 Last Admin: 01/04/20 10:13 Dose: 3 mg Documented by: Nitroglycerin (Nitrostat) 0.4 mg SL UD PRN PRN Reason: Chest Pain Stop: 02/02/20 21:53 Ondansetron HCl (Zofran) 4 mg IV Q6H PRN PRN Reason: Nausea Stop: 02/02/20 21:53 Last Admin: 07/27/20 10:13 Dose: 4 mg Documented by: Oxycodone/Acetaminophen (Percocet 5mg/325mg) 1 - 2 tab PO Q6H PRN PRN Reason: Pain Stop: 01/17/20 21:53 Polyethylene Glycol (Miralax Powder Packet) 17 gm PO BID PRN PRN Reason: Constipation Stop: 02/02/20 21:53 Sertraline HCl (Zoloft) 100 mg PO HS SARAH Stop: 02/02/20 21:53 Last Admin: 01/04/20 00:25 Dose: 100 mg Documented by: Sevelamer HCl (Renagel) 800 mg PO TIDM SARAH Stop: 02/03/20 07:59 Last Admin: 01/04/20 11:52 Dose: 800 mg Documented by: Trazodone HCl (Desyrel) 75 mg PO HS PRN PRN Reason: Insomnia Stop: 02/02/20 21:53 Last Admin: 01/04/20 01:13 Dose: 75 mg Documented by: Vitamin B Complex/Folic Acid (Nephrocaps) 1 cap PO QPM SARAH Stop: 02/02/20 21:53 Last Admin: 01/04/20 00:24 Dose: 1 cap Documented by: (1) Diabetic ketoacidosis Diabetes mellitus complication detail: without coma Diabetes mellitus type: type 1 Qualified Code(s): E10.10 - Type 1 diabetes mellitus with ketoacidosis without coma (2) Anemia Anemia type: unspecified type Qualified Code(s): D64.9 - Anemia, unspecified
[2020-01-04 14:48] LABS: BUN Creatinine Ratio 8.9 (10-20); Calcium 7.7 mg/dl (8.5-10.1); Creatinine Clr Calc Pharmacy 10.2 ml/min; Est GFR (African American) 10.4; Magnesium 2.2 mg/dl (1.8-2.4); Potassium 3.5 mmol/L (3.5-5.1)
[2020-01-04] MEDS ORDERED: PROMETHAZINE HCL 12.5 MG in SODIUM CHLORIDE 0.9% 50 ML IV PRN (15:18)
[2020-01-04 17:40] LABS: Phosphorus 5.3 mg/dl (2.5-4.9)
--- NOTE | 2020-01-04 17:57 | Consultation Report ---
DATE OF CONSULTATION: 01/04/2020 NEPHROLOGY CONSULTATION REASON FOR CONSULT: Dialysis. The patient is admitted with nausea and vomiting and DKA. HISTORY OF PRESENT ILLNESS: The patient is a 49-year-old female with ESRD, on chronic hemodialysis Saturday, , Saturday secondary to long-term type 1 diabetic. She presented to the hospital with abdominal pain, nausea, vomiting and possible rectal bleeding. She has very complicated GI history and recently had procedures related with biliary sphincterectomy and balloon sphincteroplasty. In the ER, she did have some nausea and vomiting and had a Hemoccult positive vomiting. Hemoglobin is stable. Blood glucose was very elevated at 620 consistent with DKA. Since admission, the patient has been given some IV fluid and is also on Protonix drip. The patient is a poor historian and could not even tell me when was her last dialysis, but her schedule is Saturday, , Saturday. PAST MEDICAL AND SURGICAL HISTORY: Type 1 diabetes, hyperlipidemia, hyperparathyroidism, history of acute pancreatitis, history of biliary stenosis status post procedures, history of stroke, anemia of chronic renal failure, bipolar disorder, hypertension with very labile hypertension with history of orthostatic hypotension, history of urinary retention, history of seizure, schizophrenia, AV fistula, ERCP with insertion. MEDICATIONS: Medication list from home was reviewed in detail and is as per the reconciliation list. FAMILY HISTORY: Reviewed in detail. No renal Dz. SOCIAL HISTORY: with former smoker, quit in 2005. No alcohol, no drugs. REVIEW OF SYSTEMS: She had nausea, poor appetite, vomiting, weakness. Most of her symptoms are chronic. A 12 systems reviewed and otherwise negative. PHYSICAL EXAMINATION: GENERAL: Middle-aged female who is not in any respiratory distress. She is very anxious and tearful. VITAL SIGNS: Blood pressure is 147/60, pulse rate 71, temperature 36.9, 93% on room air. HEENT: Mucous membranes moist. NECK: Supple. No jugular venous distention. CHEST: Bilateral clear to auscultation. CARDIOVASCULAR SYSTEM: S1, S2, regular. ABDOMEN: Soft, nontender. EXTREMITIES: Shows no edema. Has AV fistula. LABORATORY TESTS: Blood work from this morning shows BUN 46, creatinine 5.16, sodium 145, potassium 3.5. Hemoglobin 8.4, platelet count 292, WBC count 10,000. ASSESSMENT AND PLAN: A 49-year-old female with end-stage renal disease, on chronic hemodialysis Saturday, , Saturday secondary to type 1 diabetes; now admitted with nausea, vomiting, abdominal pain of unclear etiology as well as possible GI bleed and diabetic ketoacidosis. 1. End-stage renal disease. She is on chronic hemodialysis. At this time, does not have any major fluid or electrolyte issues. She will be getting dialysis tomorrow. We will do her for 3 hours. Stop the IV fluid by tomorrow morning. 2. Diabetic ketoacidosis. This is being managed. Does not need much IV fluid as she is a dialysis patient. 3. Nausea, vomiting, abdominal pain with recent biliary intervention. Defer to GI. MTDD
[2020-01-04 18:55] LABS: BUN Creatinine Ratio 8.8 (10-20); Calcium 7.3 mg/dl (8.5-10.1); Creatinine Clr Calc Pharmacy 10.9 ml/min; Est GFR (African American) 11.3; Est GFR (Non-African American) 9.7; Magnesium 2.1 mg/dl (1.8-2.4); Phosphorus 5.2 mg/dl (2.5-4.9); Potassium 3.6 mmol/L (3.5-5.1)
[2020-01-04] MEDS ORDERED: FLUCONAZOLE 50 MG TAB PO ONE (19:15)
[2020-01-05] MEDS: MoRPHine SULFATE 4 MG/ML 1 ML CARP\\VIAL IV PRN ×3 (00:07→09:24)
[2020-01-05] MEDS: PANTOprazole 40 MG in DEXTROSE 5% 100 ML IV SCH ×3 (00:07→09:19)
[2020-01-05 06:40] LABS: EAG mmol/L 11.4 (calc); HA1C 8.8 (<5.7)
[2020-01-05 07:39] LABS: BUN Creatinine Ratio 8.7 (10-20); Calcium 7.4 mg/dl (8.5-10.1); Creatinine Clr Calc Pharmacy 11.1 ml/min; Est GFR (African American) 11.5; Est GFR (Non-African American) 9.9; Magnesium 2.1 mg/dl (1.8-2.4); Phosphorus 4.4 mg/dl (2.5-4.9); Potassium 4.1 mmol/L (3.5-5.1)
[2020-01-05] MEDS: INSULIN GLARGINE SOLOSTAR 100 UNITS/ML 3 ML PEN SC SCH (07:47)
[2020-01-05] MEDS: INSULIN HUMAN REGULAR SC SCH ×4 (07:48→21:42)
[2020-01-05 07:50] LABS: Beta-Hydroxybutyrate 9.17 mg/dl (0.2-2.81)
[2020-01-05] MEDS: FLUTICASONE/VILANTEROL 100/25MCG 14 PUFFS/INHALER INH SCH (07:52)
[2020-01-05] MEDS: CALCIUM ACETATE 667 MG CAP/TAB PO SCH ×3 (07:53→17:28)
[2020-01-05] MEDS: levETIRAcetam 500 MG TAB PO SCH ×2 (07:53→21:23)
[2020-01-05] MEDS: SEVELAMER HCL 800 MG TABLET PO SCH ×3 (07:53→17:28)
[2020-01-05] MEDS: carvediloL 12.5 MG TAB PO SCH ×2 (07:53→17:27)
--- NOTE | 2020-01-05 09:37 | Pharmacy Report ---
Pharmacy Glycemic Short Note 2 - Date of Service January 05, 2020 - Glycemic Short BSG Results (Last 24 hours): 01/04/20 01/04/20 01/04/20 09:29 10:33 10:51 Glucose 169 H POC Glucose 142 H 168 H 01/04/20 01/04/20 01/04/20 11:33 12:33 13:32 Glucose POC Glucose 190 H 175 H 144 H 01/04/20 01/04/20 01/04/20 13:48 15:01 16:30 Glucose 123 H POC Glucose 121 H 109 H 01/04/20 01/04/20 01/05/20 17:35 20:21 06:26 Glucose 115 H 397 H* POC Glucose 183 H 01/05/20 01/05/20 07:24 07:25 Glucose POC Glucose 456 H* 441 H* OUTPATIENT ANTIDIABETIC REGIMEN: * Lantus 12 units Q AM * Novolog 13 units TID w/ meals * A1c = 8.8% 01/04/20 - interpret with caution due to ESRD and shortened RBC lifespan ASSESSMENT: * Type 1 diabetic admitted with DKA, nausea, vomiting and reports of bloody diarrhea * She was initially treated with IV insulin drip and was transitioned to SQ basal/bolus regimen yesterday after AG acidosis resolved on labs * This AM pt unexpectedly severely hyperglycemic. HS BSG last evening 183. Fasting BSG this AM 444-456. RN spoke with patient and patient denies PO intake overnight or this AM. Chemistry reviewed, AG and Bicarb within normal limits. BOHB elevated but much less than last level checked yesterday. * Patient has been hemodynamically stable, non-hypotensive, non-tachycardic - no plans for EGD per GI consult * Patient is ordered a diet his AM and did consume 55 grams CHOs * Given past experience with this patient, she has very erratic BSGs and often unexpected results. She consistently requires ~25-30 units of insulin per day however when tolerating a diet. Basal requirements tend to be ~ 10-12 units/day. PLAN FOR INPATIENT GLYCEMIC CONTROL: * More frequent BSG checks today. Will likely need to supplement SQ regimen with IV bolus regular insulin in order to obtain control of severe hyperglycemia * Basal insulin * Lantus 10 units Q AM, give additional 2 units at lunchtime today * Bolus insulin * NovoLog per scale ACHS and at 0200 tonight given recent overnight climb * Goal Range: Low 120 mg/dL - High 160 mg/dL * Correction Factor: 40 mg/dL/unit * Nutritional / Prandial insulin per carb ratio of 1 unit per 15 grams CHO consumed PLAN FOR DISCHARGE: * to be determined
[2020-01-05] MEDS ORDERED: INSULIN GLARGINE SOLOSTAR 100 UNITS/ML 3 ML PEN SC STA (10:09)
--- NOTE | 2020-01-05 10:10 | Gastroenterology Progress Note ---
Date of Service January 05, 2020 Assessment & Plan (1) Vomiting: Vomiting likely secondary to DKA, now tolerating a full liquid diet. Consulted for "GI bleed" as she vomited dark emesis in ED. No further evidence of gross GI bleeding. Plan: Advance diet slowly. In light of fairly recent normal EGD (May 2019) and no evidence of significant GI bleed, would defer endoscopy at this time. Continue antiemetics prn. Present on Admission?: Yes Admission and Anticipated Discharge Date Admission Date: January 03, 2020 Subjective Ms. Luu is a 49 yr old with bipolar, schizophrenia and DM-1 admitted on 01/03. GI consulted for GI bleed. Pt c/o left sided abdomen pain. Hb 10.6 on arrival, 8.4 today. Able to eat and retain a full liquid diet this morning. This morning she reported that she had blood in her BM, but nursing reports no gross GI bleeding. Rectal exam this morning with brown stool Review of Systems Review of Systems: ROS: Gen: No fevers or weight loss; weakness improved compared to yesterday Eyes: No eye redness, or pain, no recent vision changes Resp: No SOB, no cough Cardio: No palpitations/irregular beats, no chest pain GI: As per HPI, otherwise normal : Denies pain on urination Skin: No jaundice, itching or new rashes Physical Exam Constitutional: WD/WN, vitals as above Eyes: PERRL, conjunctivae normal, anicteric sclerae ENMT: external ear and nose normal, oropharynx normal Neck: trachea midline, no thyromegaly Respiratory: normal respiratory effort, lungs clear to auscultation Cardiovascular: RRR, no murmur, no edema Gastrointestinal (Abdomen): Inspection/Auscultation: abdomen normal to inspection Percussion/Palpation: + abdomen tender (moderately tender in the LLQ, mildly tender elsewhere) and abdomen soft Recal exam with few non bleeding external hemorrhoids. Digital rectal exam with soft brown stool in the vault. Skin: no rashes, warm and dry Neurologic: PERRL, EOMI, accommodation nl, no face palsy, no dysarthria Psychiatric: A+Ox3, euthymic affect Lymphatic: no cervical or axillary lymphadenopathy Results & Data ([facility]) Vital Signs (Past 12 Hours) Vital Signs Temp Pulse Pulse Resp BP Pulse Ox 01/05/20 08:15 69 01/05/20 07:54 36.9 C 70 20 181/76 H 95 01/05/20 03:37 37 C 71 18 171/68 H 99 01/05/20 00:35 70 01/04/20 23:31 36.7 C 69 16 136/64 94 Laboratory Results BS 640 on arrival Diagnostic Findings 01/03 CT with IV, no oral contrast: 1. The bladder wall appears circumferentially thickened. Correlation with clinical findings and urinalysis will be required. 2. Residual enteric contrast is present in the colon. No bowel obstruction is seen. 3. Moderate hiatal hernia. 4. Additional findings as above. (1) Vomiting Nausea presence: unspecified Vomiting Intractability: non-intractable Vomiting type: unspecified Qualified Code(s): R11.10 - Vomiting, unspecified
[2020-01-05 10:14] LABS: Hepatitis B Surface Ab Quant > 1000.00 mIU/mL (>or=10mIU/mL Immune); Hepatitis B Surface Antibody Immune
[2020-01-05 10:26] LABS: Hepatitis B Surface Antigen Neg (Neg)
[2020-01-05] MEDS ORDERED: INSULIN GLARGINE SOLOSTAR 100 UNITS/ML 3 ML PEN SC ONE (11:30)
--- NOTE | 2020-01-05 11:35 | Progress Notes ---
DATE: 01/05/2020 SUBJECTIVE: The patient was seen during dialysis and so far she is tolerating it well. AV fistula worked fine. Blood pressure is optimal. No cramping so far. OBJECTIVE: VITAL SIGNS: Blood pressure is 142/66, pulse rate 60, temperature 37.2 degrees Celsius, 95% on room air. HEENT: Mucous membranes moist. NECK: Supple. No jugular venous distention. CHEST: Bilateral clear to auscultation. CARDIOVASCULAR: S1, S2 regular. ABDOMEN: Soft, nontender. EXTREMITIES: Shows no edema. LABORATORY TESTS: Reviewed in detail and no major issues noted. Hemoglobin 8.4. ASSESSMENT AND PLAN: A 49-year-old female with endstage renal disease secondary to type 1 diabetes, now admitted with nausea, vomiting, poor appetite, abdominal pain and diabetic ketoacidosis. End-stage renal disease: Continue TTS schedule. No major issues noted today. Hemoglobin was low and is secondary to anemia of chronic disease and we will give her Epogen 10,000 units with dialysis or right after it. We will do the dialysis as ordered on a 3K bath for 3 hours and take about 1-1.5 kilo of fluid.
[2020-01-05] MEDS ORDERED: EPOETIN ALFA 10,000 UNITS in SYRINGE 0 ML IV SCH (12:45)
[2020-01-05] MEDS: CARBOHYDRATES FOR HYPOGLYCEMIA PO PRN (16:20)
[2020-01-05] MEDS: TRAMADOL HCL 50 MG TABLET PO PRN ×2 (17:31→21:20)
[2020-01-05] MEDS: POLYETHYLENE (MIRALAX) 17 GM PACK PO SCH (17:31)
--- NOTE | 2020-01-05 19:12 | Hospitalist Progress Note ---
Date of Service January 05, 2020 Assessment & Plan (1) Diabetic ketoacidosis: resolved. Type I diabetic with erratic swings in blood sugar. Will continue basal bolus insulin. She is now eating some more. Reports 13 units Novolog TIDM and Lantus 10 Units qHS. A1C of 8.8 reflects poor control overall. (2) Abdominal pain: ? if secondary to DKA. CT a/p unremarkable and she is now eating. Confirmed abdominal pain began around the time her DKA started, two days ago. Patient reports being hospitalized for constipation for 5 days last week. Denies any BM but reports bright red streaks of blood on the tissue paper, which sounds ? like hemorrhoids 2/2 constipation. she is requesting laxatives and stool softeners which were started. Encouraged ambulation. Cont supportive care. (3) Yeast infection: One dose of diflucan given. (4) Anemia: Likely multifactorial including 2/2 anemia of CKD and frequent phlebotomy (5) CKD (chronic kidney disease) stage V requiring chronic dialysis: Inpatient HD per nephro, received a HD session today. (6) DVT prophylaxis: No evidence of GI bleed and H/H stable. Start heparin Full Code Dispo-uncertain, ? to home with in am as long as APS has been contacted given recent events. Arpita Ramos DO [facility] Hospitalist Admission and Anticipated Discharge Date Admission Date: January 03, 2020 Subjective Feeling better today Tolerating some food although reports nausea and severe abdominal pain with eating Abdomen is TTP COVID test today negative after info that she was in a hospital and group home near [place] Review of Systems Review of Systems: All systems reviewed & are unremarkable except as noted in Subjective Physical Exam Physical Exam: CONSTITUTIONAL: WNWD, vitals as above, generally well- appearing EYES: normal conjunctivae, no scleral icterus ENT: external ear and nose normal, oropharynx clear, MMM RESPIRATORY: clear to auscultation bilaterally, no crackles, rales or wheezes, normal respiratory effort CARDIOVASCULAR: regular rate and rhythm, S1 and 2 heard without murmurs, gallops or rubs, no JVD, no peripheral edema GASTROINTESTINAL: normal BS, TTP in LLQ today, seems improved from yesterday which was incorrectly reported as nontender-yest there was diffuse tenderness, no distension MUSCULOSKELETAL: strength 5/5 throughout, head is normocephalic and atraumatic SKIN: warm and dry NEUROLOGIC: no facial palsy, no dysarthria. CN 2-12 grossly intact, normal cognition, no gross focal deficits. PSYCHIATRIC: alert cooperative and oriented Results & Data Results & Data ([facility]) Vital Signs (Past 12 Hours) Vital Signs Temp Pulse Pulse Pulse Resp BP BP 01/05/20 16:00 62 01/05/20 15:39 36.8 C 61 18 149/72 H 01/05/20 12:05 59 L 153/65 H 01/05/20 11:40 57 L 153/67 H 01/05/20 11:20 59 L 140/69 01/05/20 11:03 60 142/66 H 01/05/20 10:40 61 134/70 01/05/20 10:20 63 144/67 H 01/05/20 10:05 37.0 C 64 164/74 H 01/05/20 10:00 62 158/69 H 01/05/20 09:21 64 164/62 H 01/05/20 09:15 37.2 C 66 01/05/20 08:15 69 01/05/20 07:54 36.9 C 70 20 181/76 H Pulse Ox 01/05/20 16:00 01/05/20 15:39 96 01/05/20 12:05 01/05/20 11:40 01/05/20 11:20 01/05/20 11:03 01/05/20 10:40 01/05/20 10:20 01/05/20 10:05 01/05/20 10:00 01/05/20 09:21 01/05/20 09:15 01/05/20 08:15 01/05/20 07:[address] [facility] 01/05/20 06:26 Sodium 141 Potassium 4.1 Chloride 107 Carbon Dioxide 26 BUN 42 H Creatinine 4.74 H* Glucose 397 H* Calcium 7.4 L Medications Administered Current Inpatient Medications Acetaminophen (Tylenol) 650 mg PO Q4H PRN PRN Reason: Pain or Fever Stop: 02/02/20 21:53 Albuterol (Ventolin Hfa) 2 puffs INH Q4H PRN PRN Reason: Wheezing Stop: 02/02/20 21:53 Aripiprazole (Abilify) 5 mg PO HS SARAH Stop: 02/02/20 21:53 Last Admin: 01/04/20 20:11 Dose: 5 mg Documented by: Atorvastatin Calcium (Lipitor) 40 mg PO HS SARAH Stop: 02/02/20 21:53 Last Admin: 01/04/20 20:11 Dose: 40 mg Documented by: Bisacodyl (Dulcolax) 10 mg PO DAILY PRN PRN Reason: Constipation Stop: 02/02/20 22:19 Calcium Acetate (Phoslo) 667 mg PO TIDM SARAH Stop: 02/03/20 07:59 Last Admin: 01/05/20 17:28 Dose: 667 mg Documented by: Carvedilol (Coreg) 12.5 mg PO BIDM SARAH Stop: 02/03/20 07:59 Last Admin: 01/05/20 17:27 Dose: 12.5 mg Documented by: Dextrose (Dextrose 50%) 25 - 50 ml IV UD PRN; Protocol PRN Reason: Hypoglycemia Protocol Stop: 02/03/20 04:14 Docusate Sodium (Colace) 100 mg PO BID [facility] Stop: 02/04/20 20:59 Fluticasone/Vilanterol (Breo Ellipta 100/25 Mcg Inh) 1 puffs INH DAILY SARAH Stop: 02/03/20 08:59 Last Admin: 01/05/20 07:52 Dose: 1 puffs Documented by: Glucagon (Glucagen) 1 mg SQ UD PRN; Protocol PRN Reason: Hypoglycemia Protocol Stop: 02/03/20 04:14 Glucose (Glucose 40%) 15 - 30 gm PO UD PRN; Protocol PRN Reason: Hypoglycemia Protocol Stop: 02/03/20 04:14 Glucose (Dex4 Glucose) 4 - 8 tabs PO UD PRN; Protocol PRN Reason: Hypoglycemia Protocol Stop: 02/03/20 04:14 Hydroxyzine HCl (Vistaril) 25 mg PO TID PRN PRN Reason: Unknown Stop: 02/02/20 21:53 Promethazine HCl 12.5 mg/ (Sodium Chloride) 50.5 mls @ 202 mls/hr IV Q6H PRN PRN Reason: Nausea And Vomiting Stop: 02/03/20 15:17 Last Infusion: 01/04/20 16:23 Dose: Infused Documented by: Insulin Glargine (Lantus Solostar Pen) 10 units SC DAILY [facility] Stop: 02/04/20 08:59 Last Admin: 01/05/20 07:47 Dose: 10 units Documented by: Insulin Human Regular (Novolin R) 0 units SC ACHS [facility] Stop: 02/03/20 11:29 Last Admin: 01/05/20 16:42 Dose: Not Given Documented by: Insulin Human Regular (Novolin R) 0 units SC TODAY@0200 ONE Stop: 01/06/20 02:01 Lamotrigine (Lamictal) 50 mg PO HS SARAH Stop: 02/02/20 21:53 Last Admin: 01/04/20 20:10 Dose: 50 mg Documented by: Levetiracetam (Keppra) 500 mg PO BID SARAH Stop: 02/02/20 21:53 Last Admin: 01/05/20 07:53 Dose: 500 mg Documented by: Lorazepam (Ativan) 0.5 mg PO BID PRN PRN Reason: Anxiety Stop: 02/02/20 21:53 Miscellaneous (Carbohydrates For Hypoglycemia) 15 - 30 gm PO UD PRN PRN Reason: Hypoglycemia Treatment Stop: 02/03/20 04:14 Last Admin: 01/05/20 16:20 Dose: 30 gm Documented by: Miscellaneous Information (Consult Glycemic Management Pharmacy) 1 ea N/A UD PRN PRN Reason: Consult Stop: 02/02/20 22:25 Nitroglycerin (Nitrostat) 0.4 mg SL UD PRN PRN Reason: Chest Pain Stop: 02/02/20 21:53 Ondansetron HCl (Zofran) 4 mg IV Q6H PRN PRN Reason: Nausea Stop: 02/02/20 21:53 Last Admin: 01/04/20 10:13 Dose: 4 mg Documented by: Polyethylene Glycol (Miralax Powder Packet) 17 gm PO BID PRN PRN Reason: Constipation Stop: 02/02/20 21:53 Polyethylene Glycol (Miralax Powder Packet) 17 gm PO DAILY [facility] Stop: 02/04/20 17:29 Last Admin: 01/05/20 17:31 Dose: 17 gm Documented by: Sertraline HCl (Zoloft) 100 mg PO HS SARAH Stop: 02/02/20 21:53 Last Admin: 01/04/20 20:10 Dose: 100 mg Documented by: Sevelamer HCl (Renagel) 800 mg PO TIDM SARAH Stop: 02/03/20 07:59 Last Admin: 01/05/20 17:28 Dose: 800 mg Documented by: Tramadol HCl (Ultram) 50 mg PO Q4H PRN PRN Reason: Pain Stop: 02/04/20 11:47 Last Admin: 01/05/20 17:31 Dose: 50 mg Documented by: Trazodone HCl (Desyrel) 75 mg PO HS PRN PRN Reason: Insomnia Stop: 02/02/20 21:53 Last Admin: 01/04/20 01:13 Dose: 75 mg Documented by: Vitamin B Complex/Folic Acid (Nephrocaps) 1 cap PO QPM SARAH Stop: 02/02/20 21:53 Last Admin: 01/04/20 20:15 Dose: 1 cap Documented by: (1) Diabetic ketoacidosis Diabetes mellitus complication detail: without coma Diabetes mellitus type: type 1 Qualified Code(s): E10.10 - Type 1 diabetes mellitus with ketoacidosis without coma (2) Anemia Anemia type: unspecified type Qualified Code(s): D64.9 - Anemia, unspecified
[2020-01-05] MEDS: ATORVASTATIN 40 MG TAB PO SCH (21:21)
[2020-01-05] MEDS: DOCUSATE SODIUM 100 MG CAP PO SCH (21:21)
[2020-01-05] MEDS: ARIPiprazole 5 MG TAB PO SCH (21:22)
[2020-01-05] MEDS: NEPHROCAPS PO SCH (21:22)
[2020-01-05] MEDS: lamoTRIgine 25 MG TAB PO SCH (21:22)
[2020-01-05] MEDS: SERTRALINE HCL 100 MG TABLET PO SCH (21:22)
[2020-01-05] MEDS: TRAZODONE HCL 50 MG TAB PO PRN (21:31)
[2020-01-05] MEDS: HEPARIN SOD 5,000 UNIT/0.5 ML VIAL SQ SCH (21:41)
[2020-01-06] MEDS: ONDANSETRON INJ 2 MG/ML 2 ML VIAL IV PRN (00:02)
[2020-01-06] MEDS: TRAMADOL HCL 50 MG TABLET PO PRN ×4 (01:11→22:02)
[2020-01-06] MEDS ORDERED: INSULIN HUMAN REGULAR SC ONE (02:00)
[2020-01-06 07:19] LABS: Calcium 7.8 mg/dl (8.5-10.1); Creatinine Clr Calc Pharmacy 17.3 ml/min; Est GFR (African American) 19.7; Magnesium 1.9 mg/dl (1.8-2.4); Potassium 3.8 mmol/L (3.5-5.1)
[2020-01-06] MEDS ORDERED: INSULIN HUMAN REGULAR SC SCH (07:30)
[2020-01-06] MEDS: carvediloL 12.5 MG TAB PO SCH ×2 (09:14→16:52)
[2020-01-06] MEDS: DOCUSATE SODIUM 100 MG CAP PO SCH ×2 (09:15→21:54)
[2020-01-06] MEDS: SEVELAMER HCL 800 MG TABLET PO SCH ×3 (09:15→18:03)
[2020-01-06] MEDS: CALCIUM ACETATE 667 MG CAP/TAB PO SCH ×3 (09:15→18:03)
[2020-01-06] MEDS: FLUTICASONE/VILANTEROL 100/25MCG 14 PUFFS/INHALER INH SCH (09:15)
[2020-01-06] MEDS: levETIRAcetam 500 MG TAB PO SCH ×2 (09:16→21:48)
[2020-01-06] MEDS: HEPARIN SOD 5,000 UNIT/0.5 ML VIAL SQ SCH ×2 (09:17→21:54)
[2020-01-06] MEDS ORDERED: INSULIN GLARGINE SOLOSTAR 100 UNITS/ML 3 ML PEN SC ONE (09:27)
[2020-01-06] MEDS ORDERED: INSULIN ASPART 100 UNITS/ML 3 ML PEN SC ONE ×2 (09:28→18:33)
[2020-01-06] MEDS: INSULIN GLARGINE SOLOSTAR 100 UNITS/ML 3 ML PEN SC SCH ×2 (09:37→10:21)
[2020-01-06] MEDS: POLYETHYLENE (MIRALAX) 17 GM PACK PO SCH (09:40)
[2020-01-06] MEDS: PANTOprazole 40 MG TAB PO SCH (11:11)
[2020-01-06] MEDS: INSULIN HUMAN REGULAR SC SCH ×4 (12:55→21:54)
[2020-01-06] MEDS ORDERED: LORazepam 0.5 MG/1 ML VIAL IV STA (14:12)
--- NOTE | 2020-01-06 16:14 | Electrocardiogram Report ---
Test Reason : Blood Pressure : / mmHG Vent. Rate : 101 BPM Atrial Rate : 101 BPM P-R Int : 148 ms QRS Dur : 082 ms QT Int : 376 ms P-R-T Axes : 073 -05 044 degrees QTc Int : 487 ms Sinus tachycardia Possible Left atrial enlargement Marked T wave abnormality, consider anterior ischemia Abnormal ECG When compared with ECG of 09-NOV-2019 15:46, Nonspecific T wave abnormality now evident in Anterior leads Confirmed by Jose M Bolanos ([id number]) on 01/06/2020 4:14:43 PM Referred By: REFERRED SELF Confirmed By:Jose M Bolanos
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
[2020-01-06] MEDS ORDERED: ONDANSETRON INJ 2 MG/ML 2 ML VIAL IV ONE (18:33)
[2020-01-06] MEDS ORDERED: INSULIN GLARGINE SOLOSTAR 100 UNITS/ML 3 ML PEN SC SCH (21:00)
[2020-01-06] MEDS: TRAZODONE HCL 50 MG TAB PO PRN (21:46)
[2020-01-06] MEDS: lamoTRIgine 25 MG TAB PO SCH (21:47)
[2020-01-06] MEDS: ATORVASTATIN 40 MG TAB PO SCH (21:48)
[2020-01-06] MEDS: ARIPiprazole 5 MG TAB PO SCH (21:48)
[2020-01-06] MEDS: SERTRALINE HCL 100 MG TABLET PO SCH (21:49)
[2020-01-06] MEDS: NEPHROCAPS PO SCH (22:12)
[2020-01-07] MEDS: POLYETHYLENE (MIRALAX) 17 GM PACK PO SCH (05:44)
[2020-01-07] MEDS: TRAMADOL HCL 50 MG TABLET PO PRN ×4 (06:13→21:28)
[2020-01-07] MEDS: levETIRAcetam 500 MG TAB PO SCH ×2 (08:43→21:30)
[2020-01-07] MEDS: SEVELAMER HCL 800 MG TABLET PO SCH ×3 (08:43→18:00)
[2020-01-07] MEDS: FLUTICASONE/VILANTEROL 100/25MCG 14 PUFFS/INHALER INH SCH (08:44)
[2020-01-07] MEDS: CALCIUM ACETATE 667 MG CAP/TAB PO SCH ×3 (08:44→18:00)
[2020-01-07] MEDS: DOCUSATE SODIUM 100 MG CAP PO SCH ×2 (08:47→21:38)
[2020-01-07] MEDS: INSULIN GLARGINE SOLOSTAR 100 UNITS/ML 3 ML PEN SC SCH (08:48)
[2020-01-07] MEDS: INSULIN HUMAN REGULAR SC SCH ×4 (08:54→21:34)
[2020-01-07] MEDS: HEPARIN SOD 5,000 UNIT/0.5 ML VIAL SQ SCH ×2 (08:55→21:34)
[2020-01-07] MEDS: PANTOprazole 40 MG TAB PO SCH (09:00)
--- NOTE | 2020-01-07 09:12 | Electrocardiogram Report ---
Test Reason : Blood Pressure : / mmHG Vent. Rate : 061 BPM Atrial Rate : 061 BPM P-R Int : 150 ms QRS Dur : 076 ms QT Int : 448 ms P-R-T Axes : 025 000 029 degrees QTc Int : 450 ms Normal sinus rhythm Normal ECG When compared with ECG of 03-JAN-2020 17:28, Vent. rate has decreased BY 40 BPM Nonspecific T wave abnormality no longer evident in Anterior leads Confirmed by Wil Berger ([id number]) on 01/07/2020 9:12:28 AM Referred By: REFERRED SELF Confirmed By:Wil Berger
[2020-01-07] MEDS: carvediloL 12.5 MG TAB PO SCH ×2 (10:11→18:00)
[2020-01-07] MEDS ORDERED: LORazepam 0.5 MG/1 ML VIAL IV ONE (15:30)
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
[2020-01-07] MEDS: CARBOHYDRATES FOR HYPOGLYCEMIA PO PRN (17:21)
[2020-01-07] MEDS: TRAZODONE HCL 50 MG TAB PO PRN (21:29)
[2020-01-07] MEDS: SERTRALINE HCL 100 MG TABLET PO SCH (21:30)
[2020-01-07] MEDS: NEPHROCAPS PO SCH (21:30)
[2020-01-07] MEDS: ARIPiprazole 5 MG TAB PO SCH (21:30)
[2020-01-07] MEDS: ATORVASTATIN 40 MG TAB PO SCH (21:31)
[2020-01-07] MEDS: lamoTRIgine 25 MG TAB PO SCH (21:31)
[2020-01-08] MEDS: POLYETHYLENE (MIRALAX) 17 GM PACK PO SCH (06:19)
[2020-01-08] MEDS: TRAMADOL HCL 50 MG TABLET PO PRN ×2 (06:22→14:28)
[2020-01-08 08:20] LABS: BUN Creatinine Ratio 4.1 (10-20); Calcium 8.1 mg/dl (8.5-10.1); Creatinine Clr Calc Pharmacy 19.3 ml/min; Est GFR (African American) 22.4; Est GFR (Non-African American) 19.4; Phosphorus 2.6 mg/dl (2.5-4.9); Potassium 4.7 mmol/L (3.5-5.1)
[2020-01-08] MEDS: PANTOprazole 40 MG TAB PO SCH (08:46)
[2020-01-08] MEDS: levETIRAcetam 500 MG TAB PO SCH (08:46)
[2020-01-08] MEDS: CALCIUM ACETATE 667 MG CAP/TAB PO SCH ×2 (08:46→12:58)
[2020-01-08] MEDS: SEVELAMER HCL 800 MG TABLET PO SCH ×2 (08:46→12:58)
[2020-01-08] MEDS: FLUTICASONE/VILANTEROL 100/25MCG 14 PUFFS/INHALER INH SCH (08:46)
[2020-01-08] MEDS: carvediloL 12.5 MG TAB PO SCH (08:47)
[2020-01-08] MEDS: DOCUSATE SODIUM 100 MG CAP PO SCH (08:48)
[2020-01-08] MEDS: INSULIN HUMAN REGULAR SC SCH ×2 (08:50→13:00)
[2020-01-08] MEDS: HEPARIN SOD 5,000 UNIT/0.5 ML VIAL SQ SCH (08:52)
[2020-01-08] MEDS ORDERED: INSULIN GLARGINE SOLOSTAR 100 UNITS/ML 3 ML PEN SC SCH (09:00)
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
== END 2020-01-08 14:52 | disposition home or self-care (01) | DRG 637 ==
LOC: ED 17:01 → 2S 21:00 → 3W 01-05 17:37

== ENCOUNTER 2020-01-29 11:30 | Observation (INO) ==
[2020-01-29] MEDS ORDERED: NovoLIN-R INSULIN PER UNIT CHARGE IV STA (12:00)
[2020-01-29] MEDS ORDERED: SODIUM CHLORIDE 0.9% 1000ML 1,000 ML IV ONE (12:11)
[2020-01-29] MEDS ORDERED: ONDANSETRON INJ 2 MG/ML 2 ML VIAL IV STA (12:35)
--- NOTE | 2020-01-29 12:43 | Emergency Department Note ---
Impression & Plan Hyperglycemia due to type 1 diabetes mellitus, Confusion, Arm pain, right ED Provider Note Provider: Andrea Lewis MD DATE OF SERVICE: 01/29/2020 CHIEF COMPLAINT: Blood sugar issues HISTORY OF PRESENT ILLNESS: Patient is a 49-year-old female with a history of type 1 diabetes, CKD on dialysis, hypertension, chronic constipation, gastroparesis, bipolar disorder presenting today from home. Patient's is present. Patient does not remember his name initially during the interview. Patient states that she is a bit of a headache a bit of pain in her right upper arm and right chest as well as some discomfort in her upper abdomen. Denies abdominal tenderness. States she is constipation and nausea. States she is had some decreased intake recently. States her blood sugars have been all over the place but she has been taking her insulin. Denies any trauma. No fevers reported. Patient states home nursing came and called him at work as her blood sugars were erratic by report. Also he reports that she seems confused. She states that it is December and she states it is initially 2018. She does not know that she is at the hospital at this time. Patient denies weakness focally in the extremities. Patient states she did have dialysis yesterday. Patient states she recently had some fistula procedure completed. Complains of some pain in this area. REVIEW OF SYSTEMS: A total of 10 review of systems was obtained and negative except as stated above in the HPI. PAST MEDICAL HISTORY: As noted above MEDICATIONS: Reviewed home medication listings SOCIAL HISTORY: , lives at home, former smoker PHYSICAL EXAM: GENERAL: alert in no acute distress on stretcher Head: normocephalic and atraumatic EYES: No injection, discharge or icterus. PERRL NECK: Trachea midline. Supple. ENT: Mucous membranes pink and moist. LUNGS: Airway patent. No retractions. Breath sounds clear HEART: Regular rate and rhythm. No chest wall tenderness ABDOMEN: Soft and non-tender, without guarding or rebound. SKIN: Acyanotic, warm, dry, without rashes EXTREMITIES: Without swelling, tenderness or deformity except for a right upper arm fistula with thrill. There are several sutures present without erythema or significant discharge. NEUROLOGICAL: No focal deficits. No aphasia. No facial droop or slurred speech. Normal strength and tone in the extremities. Sensation to gross touch normal. Patient does not know what year it is or what month. Does not know who her h usband is or where she is located at currently. She does note that she is located in a bed. EK bpm normal sinus rhythm without PVC or PAC. No acute ST segment elevation or depression. QTC 468. CONTINUOUS CARDIAC MONITORING: was ordered and showed a heart rate of 91 bpm in normal sinus rhythm Patient's hypertension was referred to the hospitalist HOSPITAL COURSE: 1200 Patient was first seen and H&P performed. 1357 patient reassessed and updated. Patient was still with some confusion ac cording to the . We will plan for further observation here in the hospital. 1412 discussed with the [facility] Hospitalist team. Patient's laboratory studies and imaging reviewed. Differential includes Infection, dehydration, metabolic abnormality, hypo/hyperglycemia, electrolyte disturbance, anemia, hypoxia, cardiac sources, intracerebral event, toxicologic, neurologic, as well as other pathologies. IMPRESSION/MEDICAL DECISION MAKING: Patient complains of erratic blood sugars also concerning history with the that she is more confused. She does not know initially who he is or where she is at. No focality to her deficits or significant aphasia appreciated. Low suspicion for acute CVA. Does not seem meningitic. Denies fevers. Question if there may be an infectious source causing her hyperglycemia but nothing obvious on exam. Recent negative COVID test and this seems unlikely. Complains of some right upper arm and right-sided chest discomfort. No trauma history reported. Neuro intact in the right hand. Thrill in the fistula appreciated. Did place a left-sided 18-gauge IV for access some blood work utilizing ultrasound here myself. CT the head is complete without acute pathology. Moderate hyperglycemia is noted. Given some IV insulin as well as IV fluids here as well as Zofran. Complaint of pain given some IV Tylenol. No significant leukocytosis noted today. Anemia stable if not slightly improved. Ammonia not significantly elevated to explain her confusion. Pseudohyponatremia from elevated glucose. Creatinine mildly elevated but in the setting of end- stage renal disease on dialysis not untoward. Potassium not elevated. No signs of LFT abnormality. Mild hypomagnesemia noted. No evidence of pancreatitis. No significant acidosis on VBG or hypercarbia. Negative test. Patient has good thrill and pulse in her right hand as well as capillary refill. I doubt acute ischemic injury here. Seems atypical for an infectious cause here. Given the patient's continued issues with confusion however, will discuss with the hospitalist further observation given her confusion DIAGNOSIS: Hyperglycemia secondary to type 1 diabetes, confusion, right upper arm pain DISPOSITION: Hospitalist will evaluate Patient was agreeable with this plan. 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 history of CVA in 2018 Residual R sided weakness Depression Diabetic gastroparesis Diastolic heart failure DM type 1 (diabetes mellitus, type 1) ESRD (end stage renal disease) on dialysis GERD (gastroesophageal reflux disease) History of GI bleed Hyperlipidemia Hypertension Seizure Surgical History Hx of appendectomy Hx of cholecystectomy Hx of tubal ligation Family History Mother Coronary heart disease Hypertension Father Coronary heart disease Other No significant family history Social History Smoking Status: Never smoker Tobacco Type: Cigarettes Second Hand Exposure: No; Hx Alcohol Use: No Hx Substance Use: No Preferred Language: Gabonese Communication Ability: Effective Resident Care Technician Required: No Beliefs That Will Affect Care: None marital status: Single Current Living Situation: Spouse current occupational status: unemployed Other Information That Helps Us Care for You: No Feels Safe at Home: Yes Safety Concerns: Feels Safe At This Time Allergies Allergies Allergy/AdvReac Type Severity Reaction Status Date / Time Fish Containing Products Allergy Mild Hives Verified 01/03/20 18:06 latex Allergy Mild hives Verified 01/03/20 18:06 shellfish derived Allergy Verified 01/08/20 10:27 Home Meds Home Medications Medication Instructions Recorded Confirmed [place] Caps 1 cap PO QPM 12/19/18 01/29/20 albuterol sulfate [Proventil HFA] 2 puff INHALATION Q4H PRN 12/19/18 01/29/20 bisacodyl 10 mg PO DAILY PRN 12/19/18 01/29/20 carvedilol [Coreg] 12.5 mg PO BIDM 12/19/18 01/29/20 multivitamin 1 tab PO QAM 12/19/18 01/29/20 pantoprazole [Protonix] 40 mg PO QAM 12/19/18 01/29/20 polyethylene glycol 3350 [Miralax] 17 g PO BID PRN 12/19/18 01/29/20 aripiprazole [Abilify] 5 mg PO HS 05/20/19 01/29/20 levetiracetam [Keppra] 500 mg PO BID 06/20/19 01/29/20 Lantus Solostar U-100 Insulin 13 unit SUBCUT HS 08/01/19 01/29/20 acetaminophen [Tylenol] 325 mg PO Q4H PRN 08/01/19 01/29/20 atorvastatin [Lipitor] 40 mg PO HS 08/01/19 01/29/20 sertraline [Zoloft] 100 mg PO HS 08/01/19 01/29/20 trazodone 75 mg PO HS PRN 08/01/19 01/29/20 calcium acetate(phosphat bind) 667 mg PO TIDM 11/09/19 01/29/20 hydroxyzine HCl 25 mg PO TID PRN 11/09/19 01/29/20 insulin aspart U-100 [Novolog 10 unit SUBCUT TIDM 11/09/19 01/29/20 U-100 Insulin aspart] lamotrigine [Lamictal] 50 mg PO HS 11/09/19 01/29/20 sevelamer carbonate [Renvela] 800 mg PO UD 11/09/19 01/29/20 Breo Ellipta 1 inh INHALATION DAILY 01/03/20 01/29/20 lorazepam 0.5 mg PO BID PRN 01/03/20 01/29/20 ergocalciferol (vitamin D2) 50,000 unit PO WK 01/29/20 01/29/20 gabapentin 100 mg PO DAILY 01/29/20 01/29/20 lactulose 15 ml PO BID PRN 01/29/20 01/29/20 melatonin 3 mg PO HS 01/29/20 01/29/20 metoclopramide HCl 5 mg PO BID 01/29/20 01/29/20 ondansetron HCl 4 mg PO Q8H PRN 01/29/20 01/29/20 sennosides [senna] 8.6 mg PO DAILY 01/29/20 01/29/20 Previous Rx's Medication Instructions Recorded acetone (urine) test [Ketone Urine #100 ea 01/06/20 Test] linaclotide [Linzess] 145 mcg PO QAM #30 cap 01/07/20 Results & Data (ED) Vital Signs Vital Signs - 24 hr 01/29/20 11:33 01/29/20 13:50 Temperature 36.9 C Temperature Source Oral Pulse Rate 95 H Pulse Rate [Left Finger] 81 Pulse Rhythm Regular Pulse Strength Normal Respiratory Rate 20 20 Respiratory Effort / Characteristics Non-Labored Spontaneous Respiratory Depth Normal Respiratory Pattern Regular Blood Pressure 149/66 H Blood Pressure [Left Arm] 179/77 H Blood Pressure Mean 93 Blood Pressure Mean [Left Arm] 111 Blood Pressure Position Sitting Blood Pressure Position [Left Arm] Sitting Pulse Oximetry 100 98 Oxygen Delivery Method Room Air Sepsis Recent Fever Within 48 Hours No Sepsis New/Unexplained Change in Mental Status No Sepsis Action Taken by Nursing No Action Required Laboratory Data Result diagrams: 01/29/20 12:31 01/29/20 12:31 Lab Results 01/29/20 01/29/20 01/29/20 Range/Units 11:42 12:31 12:31 WBC 5.86 (4.8-10.8) K/uL RBC 3.00 L (4.2-5.4) M/uL Hgb 9.4 L (12.0-16.0) g/dL Hct 28.0 L (37-47) % MCV 93.3 (80-100) fL MCH 31.3 (25-34) pg MCHC 33.6 (32-36) g/dL RDW Std Deviation 49.3 H (36.4-46.3) fL RDW Coeff of Lebron 14.6 H (11.5-14.5) % Plt Count 306 (130-400) K/uL MPV 10.4 (7.4-10.4) fL Immature Gran % (Auto) 0.3 % Neut % (Auto) 49.1 % Lymph % (Auto) 37.0 % [place] % (Auto) 8.2 % Eos % (Auto) 4.9 % Baso % (Auto) 0.5 % Neut # (Auto) 2.87 (1.4-6.5) K/uL Lymph # (Auto) 2.17 (1.2-3.4) K/uL [place] # (Auto) 0.48 (0.11-0.59) K/uL Eos # (Auto) 0.29 (0-0.5) K/uL Baso # (Auto) 0.03 (0-0.2) K/uL Immature Gran # (Auto) 0.02 (0.00-0.02) K/uL VBG pH 7.41 (7.36-7.41) VBG pCO2 49 (38-50) mmHg VBG pO2 29 mmHg VBG HCO3 30 mmol/L VBG O2 Saturation < 60.0 % VBG Base Excess 4.6 mEq/L Barometric Pressure 731.0 mm/Hg Sodium (136-145) mmol/L Potassium (3.5-5.1) mmol/L Chloride (98-107) mmol/L Carbon Dioxide (21-32) mmol/L Anion Gap (3-11) BUN (7-18) mg/dl Creatinine (0.6-1.2) mg/dl Est Cr Clr Drug Dosing ml/min Est GFR ( Amer) Est GFR (Non-Af Amer) BUN/Creatinine Ratio (10-20) Glucose (70-99) mg/dl POC Glucose 337 H* (70-99) mg/dl Calcium (8.5-10.1) mg/dl Magnesium (1.8-2.4) mg/dl Total Bilirubin (0.2-1) mg/dl AST (15-37) U/L ALT (12-78) U/L Alkaline Phosphatase (45-117) U/L Ammonia (11-32) umol/L Total Protein (6.4-8.2) gm/dl Albumin (3.4-5.0) gm/dl Globulin (2.5-4.0) gm/dl Albumin/Globulin Ratio (0.9-2) Lipase (73-393) U/L Beta-Hydroxybutyric Acd (0.2-2.81) mg/dl HCG, Qual (Negative) Urine Color Urine Appearance (Clear) Urine pH (4.5-7.5) Ur Specific [place] (1.000-1.030) Urine Protein (Negative) Urine Glucose (UA) (Negative) Urine Ketones (Negative) Urine Blood (Negative) Urine Nitrite (Negative) Urine Bilirubin (Negative) Urine Urobilinogen (Negative) Ur Leukocyte Esterase (Negative) Urine WBC (Auto) (0-5) /hpf Urine RBC (Auto) (0-4) /hpf U Hyaline Cast (Auto) (0-5) /lpf U Epithel Cells (Auto) (0-5) /lpf Urine Bacteria (Auto) (Negative) 01/29/20 01/29/20 01/29/20 Range/Units 12:31 12:31 12:32 WBC (4.8-10.8) K/uL RBC (4.2-5.4) M/uL Hgb (12.0-16.0) g/dL Hct (37-47) % MCV (80-100) fL MCH (25-34) pg MCHC (32-36) g/dL RDW Std Deviation (36.4-46.3) fL RDW Coeff of [place] (11.5-14.5) % Plt Count (130-400) K/uL MPV (7.4-10.4) fL Immature Gran % (Auto) % Neut % (Auto) % Lymph % (Auto) % [place] % (Auto) % Eos % (Auto) % Baso % (Auto) % Neut # (Auto) (1.4-6.5) K/uL Lymph # (Auto) (1.2-3.4) K/uL [place] # (Auto) (0.11-0.59) K/uL Eos # (Auto) (0-0.5) K/uL Baso # (Auto) (0-0.2) K/uL Immature Gran # (Auto) (0.00-0.02) K/uL VBG pH (7.36-7.41) VBG pCO2 (38-50) mmHg VBG pO2 mmHg VBG HCO3 mmol/L VBG O2 Saturation % VBG Base Excess mEq/L Barometric Pressure mm/Hg Sodium 134 L (136-145) mmol/L Potassium 4.6 (3.5-5.1) mmol/L Chloride 97 L (98-107) mmol/L Carbon Dioxide 29 (21-32) mmol/L Anion Gap 8.0 (3-11) BUN 39 H (7-18) mg/dl Creatinine 4.02 H (0.6-1.2) mg/dl Est Cr Clr Drug Dosing 13.7 ml/min Est GFR ( Amer) 14.0 Est GFR (Non-Af Amer) 12.1 BUN/Creatinine Ratio 9.7 L (10-20) Glucose 320 H* (70-99) mg/dl POC Glucose (70-99) mg/dl Calcium 8.9 (8.5-10.1) mg/dl Magnesium 2.9 H (1.8-2.4) mg/dl Total Bilirubin 0.2 (0.2-1) mg/dl AST 15 (15-37) U/L ALT 17 (12-78) U/L Alkaline Phosphatase 116 (45-117) U/L Ammonia 30.3 (11-32) umol/L Total Protein 7.2 (6.4-8.2) gm/dl Albumin 3.0 L (3.4-5.0) gm/dl Globulin 4.2 H (2.5-4.0) gm/dl Albumin/Globulin Ratio 0.7 L (0.9-2) Lipase 87 (73-393) U/L Beta-Hydroxybutyric Acd (0.2-2.81) mg/dl HCG, Qual Negative (Negative) Urine Color Urine Appearance (Clear) Urine pH (4.5-7.5) Ur Specific [place] (1.000-1.030) Urine Protein (Negative) Urine Glucose (UA) (Negative) Urine Ketones (Negative) Urine Blood (Negative) Urine Nitrite (Negative) Urine Bilirubin (Negative) Urine Urobilinogen (Negative) Ur Leukocyte Esterase (Negative) Urine WBC (Auto) (0-5) /hpf Urine RBC (Auto) (0-4) /hpf U Hyaline Cast (Auto) (0-5) /lpf U Epithel Cells (Auto) (0-5) /lpf Urine Bacteria (Auto) (Negative) 01/29/20 01/29/20 Range/Units 13:57 14:10 WBC (4.8-10.8) K/uL RBC (4.2-5.4) M/uL Hgb (12.0-16.0) g/dL Hct (37-47) % MCV (80-100) fL MCH (25-34) pg MCHC (32-36) g/dL RDW Std Deviation (36.4-46.3) fL RDW Coeff of [place] (11.5-14.5) % Plt Count (130-400) K/uL MPV (7.4-10.4) fL Immature Gran % (Auto) % Neut % (Auto) % Lymph % (Auto) % [place] % (Auto) % Eos % (Auto) % Baso % (Auto) % Neut # (Auto) (1.4-6.5) K/uL Lymph # (Auto) (1.2-3.4) K/uL [place] # (Auto) (0.11-0.59) K/uL Eos # (Auto) (0-0.5) K/uL Baso # (Auto) (0-0.2) K/uL Immature Gran # (Auto) (0.00-0.02) K/uL VBG pH (7.36-7.41) VBG pCO2 (38-50) mmHg VBG pO2 mmHg VBG HCO3 mmol/L VBG O2 Saturation % VBG Base Excess mEq/L Barometric Pressure mm/Hg Sodium (136-145) mmol/L Potassium (3.5-5.1) mmol/L Chloride (98-107) mmol/L Carbon Dioxide (21-32) mmol/L Anion Gap (3-11) BUN (7-18) mg/dl Creatinine (0.6-1.2) mg/dl Est Cr Clr Drug Dosing ml/min Est GFR ( Amer) Est GFR (Non-Af Amer) BUN/Creatinine Ratio (10-20) Glucose (70-99) mg/dl POC Glucose 189 H (70-99) mg/dl Calcium (8.5-10.1) mg/dl Magnesium (1.8-2.4) mg/dl Total Bilirubin (0.2-1) mg/dl AST (15-37) U/L ALT (12-78) U/L Alkaline Phosphatase (45-117) U/L Ammonia (11-32) umol/L Total Protein (6.4-8.2) gm/dl Albumin (3.4-5.0) gm/dl Globulin (2.5-4.0) gm/dl Albumin/Globulin Ratio (0.9-2) Lipase (73-393) U/L Beta-Hydroxybutyric Acd (0.2-2.81) mg/dl HCG, Qual (Negative) Urine Color Yellow Urine Appearance Cloudy A (Clear) Urine pH 6.5 (4.5-7.5) Ur Specific [place] 1.020 (1.000-1.030) Urine Protein 3+ H (Negative) Urine Glucose (UA) 3+ H (Negative) Urine Ketones Trace H (Negative) Urine Blood Negative (Negative) Urine Nitrite Negative (Negative) Urine Bilirubin Negative (Negative) Urine Urobilinogen Negative (Negative) Ur Leukocyte Esterase Negative (Negative) Urine WBC (Auto) 1-5 (0-5) /hpf Urine RBC (Auto) 5-10 H (0-4) /hpf U Hyaline Cast (Auto) 5-10 H (0-5) /lpf U Epithel Cells (Auto) >30 H (0-5) /lpf Urine Bacteria (Auto) Negative (Negative) Administered Medications Acetaminophen (Acetaminophen 325 Mg Tab) 650 mg PO Q6H PRN PRN Reason: Pain or Fever Stop: 02/28/20 16:48 Last Admin: 01/29/20 18:24 Dose: 650 mg Documented by: [id number] Calcium Acetate (Calcium Acetate 667 Mg Cap/Tab) 667 mg PO TIDM [facility] Stop: 02/28/20 16:59 Last Admin: 01/29/20 18:23 Dose: 667 mg Documented by: [id number] Carvedilol (Carvedilol 12.5 Mg Tab) 12.5 mg PO BIDM [facility] Stop: 02/28/20 16:59 Last Admin: 01/29/20 18:23 Dose: 12.5 mg Documented by: [id number] Daptomycin 300 mg/ Syringe 6 mls @ 3 mls/min IV Q48H SARAH; Protocol Stop: 01/31/20 16:59 Last Admin: 01/29/20 17:53 Dose: 3 mls/min Documented by: [id number] Insulin Aspart (Insulin Aspart 100 Units/Ml 3 Ml Pen) 0 units SC Q6 SARAH; Protocol Stop: 02/28/20 17:59 Last Admin: 01/29/20 19:02 Dose: 7 units Documented by: [id number] Cosigned by: [id number] Sevelamer HCl (Sevelamer Hcl 800 Mg Tablet) 800 mg PO Q2D SARAH Stop: 02/28/20 08:59 Last Admin: 01/29/20 18:23 Dose: 800 mg Documented by: [id number] Discontinued Medications Sodium Chloride (Nss 1000ml) 1,000 mls @ 999 mls/hr IV .Q1H1M ONE Stop: 01/29/20 13:11 Last Infusion: 01/29/20 13:58 Dose: 0 mls/hr Documented by: [id number] Admin: 01/29/20 12:40 Dose: 999 mls/hr Documented by: [id number] Acetaminophen (Ofirmev) 1,000 mg in 100 mls @ 400 mls/hr IV NOW STA Stop: 01/29/20 13:15 Last Infusion: 01/29/20 13:25 Dose: 0 mls/hr Documented by: [id number] Admin: 01/29/20 13:10 Dose: 400 mls/hr Documented by: [id number] Piperacillin Sod/Tazobactam (Sod 3.375 gm/ Dextrose) 115 mls @ 230 mls/hr IV NOW ONE; Protocol Stop: 01/29/20 17:14 Last Infusion: 01/29/20 18:47 Dose: 0 mls/hr Documented by: [id number] Admin: 01/29/20 17:53 Dose: 230 mls/hr Documented by: [id number] Insulin Human Regular (Novolin-R Insulin Per Unit Charge) 6 units IV NOW STA Stop: 01/29/20 12:01 Last Admin: 01/29/20 12:49 Dose: 6 units Documented by: [id number] Cosigned by: [id number] Miscellaneous Information (Consult Pharmacy) 1 ea N/A NOW STA Stop: 01/29/20 15:43 Last Admin: 01/29/20 19:03 Dose: Not Given Documented by: [id number] Ondansetron HCl (Ondansetron Inj 2 Mg/Ml 2 Ml Vial) 4 mg IV NOW STA Stop: 01/29/20 12:36 Last Admin: 01/29/20 12:47 Dose: 4 mg Documented by: [id number] Discharge Plan Visit Data Chief Complaint: Hyperglycemia Stated Complaint: SUGAR ELEVATED/FEELING ILL ED Provider: Andrea Lewis Discharge Problem: Hyperglycemia due to type 1 diabetes mellitus, Confusion, Arm pain, right Patient Disposition: Admitted As Inpatient Discharge Instructions Interventions: ED Discharge Assessment Last Done: 01/29/20 15:47
[2020-01-29 12:48] LABS: Basophils # (auto) 0.03 K/uL (0-0.2); Basophils % (auto) 0.5 %; Eosinophils # (auto) 0.29 K/uL (0-0.5); Eosinophils % (auto) 4.9 %; Hemoglobin 9.4 g/dL (12.0-16.0); Immature Granulocytes # (auto) 0.02 K/uL (0.00-0.02); Immature Granulocytes % (auto) 0.3 %; Lymphocytes # (auto) 2.17 K/uL (1.2-3.4); Mean Corpuscular Hemoglobin 31.3 pg (25-34); Mean Corpuscular Hgb Conc 33.6 g/dL (32-36); Mean Corpuscular Volume 93.3 fL (80-100); Mean Platelet Volume 10.4 fL (7.4-10.4); Monocytes # (auto) 0.48 K/uL (0.11-0.59); Monocytes % (auto) 8.2 %; Neutrophils # (auto) 2.87 K/uL (1.4-6.5); Neutrophils % (auto) 49.1 %; Platelet Count 306 K/uL (130-400); RDW Coefficient of Variation 14.6 % (11.5-14.5); RDW Standard Deviation 49.3 fL (36.4-46.3); White Blood Count 5.86 K/uL (4.8-10.8)
[2020-01-29] MEDS ORDERED: ACETAMINOPHEN 1,000 MG/100 ML VIAL IV STA (13:01)
[2020-01-29 13:02] LABS: Base Excess VBG 4.6 mEq/L; HCO3 VBG 30 mmol/L; PCO2 VBG 49 mmHg (38-50); PO2 VBG 29 mmHg; pH VBG 7.41 (7.36-7.41)
--- NOTE | 2020-01-29 13:05 | CT Scan Report ---
CT head/brain wo con CLINICAL HISTORY: 49 years-old Female with confusion. Acutely altered mental status TECHNIQUE: Multiple axial CT images of the head were obtained without contrast. A dose lowering tech nique was utilized adhering to the principles of ALARA. CT DOSE: 537.48 mGy.cm COMPARISON: Head CT 11/09/2019. FINDINGS: No acute intracranial hemorrhage, midline shift, intracranial mass, hydrocephalus, territorial ischem ia or abnormal extra-axial collection. Remote infarct of the ennis radiata left frontal lobe and ext ernal capsule. The calvarium is intact. Left globe prosthesis. The paranasal sinuses, mastoid air cells, and middle ear cavities are clear. IMPRESSION: No acute intracranial abnormality. ACT 112: Negative or not required by law. The above report was generated using voice recognition software. It may contain grammatical, syntax o r spelling errors. Electronically signed by: Flakito Cordero M.D. 01/29/2020 1:04 PM
[2020-01-29 13:07] LABS: Pregnancy Test, Serum Negative (Negative)
[2020-01-29 13:11] LABS: Albumin Globulin Ratio 0.7 (0.9-2); BUN Creatinine Ratio 9.7 (10-20); Bilirubin,Total 0.2 mg/dl (0.2-1); Calcium 8.9 mg/dl (8.5-10.1); Creatinine Clr Calc Pharmacy 13.7 ml/min; Est GFR (Non-African American) 12.1; Globulin 4.2 gm/dl (2.5-4.0); Magnesium 2.9 mg/dl (1.8-2.4); Potassium 4.6 mmol/L (3.5-5.1); Total Protein 7.2 gm/dl (6.4-8.2)
[2020-01-29 13:41] LABS: Oxygen Saturation VBG < 60.0 %
--- NOTE | 2020-01-29 13:49 | XRay Report ---
XR chest 1V portable HISTORY: 49 years-old Female confusion confusion with altered mental status COMPARISON: Chest radiograph 01/03/2020 TECHNIQUE: Portable AP view of the chest FINDINGS: Cardiomediastinal and hilar silhouettes are within normal limits. There is no pneumothorax, pleural e ffusion, airspace consolidation or overt pulmonary edema. Right subclavian vascular stent. Unchanged corticated ossification adjacent to the inferior glenoid. IMPRESSION: No acute process. ACT 112: Negative or not required by law. The above report was generated using voice recognition software. It may contain grammatical, syntax o r spelling errors. Electronically signed by: Flakito Cordero M.D. 01/29/2020 1:48 PM
[2020-01-29 14:41] LABS: Appearance Urine Cloudy (Clear); Bacteria Urine Automated Negative (Negative); Bilirubin Urine Negative (Negative); Blood Urine Negative (Negative); Color Urine Yellow; Epithelial Cell Urine Auto >30 /lpf (0-5); Glucose Urine UA 3+ (Negative); Ketones Urine Trace (Negative); Leukocyte Esterase Urine Negative (Negative); Nitrite Urine Negative (Negative); Protein Urine 3+ (Negative); Urobilinogen Urine Negative (Negative); pH Urine 6.5 (4.5-7.5)
--- NOTE | 2020-01-29 15:08 | Electrocardiogram Report ---
Test Reason : Blood Pressure : / mmHG Vent. Rate : 080 BPM Atrial Rate : 080 BPM P-R Int : 148 ms QRS Dur : 076 ms QT Int : 406 ms P-R-T Axes : 043 -04 018 degrees QTc Int : 468 ms Poor data quality, interpretation may be adversely affected Normal sinus rhythm Possible Left atrial enlargement Left ventricular hypertrophy Cannot rule out Septal infarct , age undetermined Abnormal ECG When compared with ECG of 06-JAN-2020 14:29, Minimal criteria for Septal infarct are now Present Confirmed by Denton Saba ([id number]) on 01/29/2020 3:08:29 PM Referred By: REFERRED SELF Confirmed By:Denton Saba
[2020-01-29 15:42] LABS: Troponin I < 0.015 ng/ml (0-0.045)
[2020-01-29] MEDS ORDERED: CONSULT PHARMACY STA (15:42)
--- NOTE | 2020-01-29 16:05 | XRay Report ---
KUB HISTORY: Evaluate for fecal retention COMPARISON: None. FINDINGS: Moderate well-formed stool seen throughout the colon and rectum. This has slightly improved in the interval. Prior cholecystectomy. An intrauterine device is located within the mid pelvis. No renal calculi. No ureteral calculi. Calcifications in the deep pelvis likely represent phleboliths. These remain unchanged. No pneumoperitoneum or pneumatosis. IMPRESSION: 1. Moderate well-formed stool seen within the colon and rectum. This has slightly improved in the int erval. 2. The intrauterine device remains within the mid pelvis. ACT 112: Negative or not required by law. Electronically signed by: Jairon Shannon M.D. 01/29/2020 4:03 PM
[2020-01-29] MEDS ORDERED: POLYETHYLENE (MIRALAX) 17 GM PACK PO PRN (16:08)
[2020-01-29] MEDS ORDERED: ALBUTEROL HFA 8 GM INHALER INH PRN (16:08)
[2020-01-29] MEDS ORDERED: SENNA 8.6 MG TAB PO PRN (16:08)
[2020-01-29 16:12] LABS: Creatine Kinase 30 U/L (26-192)
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
[2020-01-29] MEDS ORDERED: DAPTOMYCIN CONSULT ACTIVE PRN (16:35)
[2020-01-29] MEDS ORDERED: PIPERACILL/TAZOBAC CONSULT ACTIVE PRN (16:35)
[2020-01-29] MEDS ORDERED: LACTULOSE SYRUP 10 GM/15 ML BTL 960 ML PO PRN (16:37)
[2020-01-29] MEDS ORDERED: bisacodyL 5 MG TABEC PO PRN (16:39)
[2020-01-29] MEDS ORDERED: PIPERACILLIN/TAZOBACTAM 3.375 GM in DEXTROSE 5% 100 ML IV ONE (16:45)
[2020-01-29] MEDS ORDERED: ACETAMINOPHEN 325 MG TAB PO PRN (16:49)
[2020-01-29] MEDS ORDERED: GLUCOSE 10 TABS/TUBE PO PRN (16:59)
[2020-01-29] MEDS ORDERED: GLUCOSE 40% GEL 15 GM TUBE PO PRN (16:59)
[2020-01-29] MEDS ORDERED: CARBOHYDRATES FOR HYPOGLYCEMIA PO PRN (16:59)
[2020-01-29] MEDS ORDERED: GLUCAGON FOR INJ 1 MG VIAL SQ PRN (16:59)
[2020-01-29] MEDS ORDERED: DEXTROSE 50% 50 ML SYRINGE IV PRN (16:59)
[2020-01-29] MEDS ORDERED: DAPTOmycin 300 MG in SYRINGE 0 ML IV SCH (17:00)
[2020-01-29] MEDS ORDERED: PHARMACY GLYCEMIC MGMT CONSULT PRN (17:14)
[2020-01-29] MEDS: CALCIUM ACETATE 667 MG CAP/TAB PO SCH (18:23)
[2020-01-29] MEDS: carvediloL 12.5 MG TAB PO SCH (18:23)
[2020-01-29] MEDS: SEVELAMER HCL 800 MG TABLET PO SCH (18:23)
[2020-01-29] MEDS: INSULIN ASPART 100 UNITS/ML 3 ML PEN SC SCH (19:02)
[2020-01-29] MEDS: MELATONIN 3 MG TAB PO SCH (20:53)
[2020-01-29] MEDS: ARIPiprazole 5 MG TAB PO SCH (20:54)
[2020-01-29] MEDS: levETIRAcetam 500 MG TAB PO SCH (20:55)
[2020-01-29] MEDS: PIPERACILLIN/TAZOBACTAM 3.375 GM in DEXTROSE 5% 100 ML IV SCH (20:55)
[2020-01-29] MEDS: ATORVASTATIN 40 MG TAB PO SCH (20:55)
[2020-01-29] MEDS: SERTRALINE HCL 100 MG TABLET PO SCH (20:56)
[2020-01-29] MEDS: METOCLOPRAMIDE HCL 5 MG TABLET PO SCH (20:56)
[2020-01-29] MEDS ORDERED: lamoTRIgine 25 MG TAB PO SCH (21:00)
[2020-01-29] MEDS ORDERED: INSULIN GLARGINE SOLOSTAR 100 UNITS/ML 3 ML PEN SC ONE (21:00)
[2020-01-29] MEDS: NEPHROCAPS PO SCH (21:27)
[2020-01-29] MEDS ORDERED: OXYCODONE HCL IR 5 MG TAB (IMMEDIATE RELEASE) PO STA (21:29)
[2020-01-30] MEDS: INSULIN ASPART 100 UNITS/ML 3 ML PEN SC SCH ×5 (00:40→20:58)
[2020-01-30] MEDS ORDERED: INSULIN HUMAN REGULAR PER UNIT 4 UNITS in SYRINGE 3.96 ML IV ONE (06:15)
[2020-01-30] MEDS ORDERED: INSULIN GLARGINE SOLOSTAR 100 UNITS/ML 3 ML PEN SC ONE (07:30)
[2020-01-30] MEDS ORDERED: MoRPHine SULFATE 2 MG/ML CARP IV STA (07:56)
[2020-01-30] MEDS ORDERED: OXYCODONE HCL IR 5 MG TAB (IMMEDIATE RELEASE) PO PRN (07:57)
[2020-01-30] MEDS ORDERED: ACETAMINOPHEN 325 MG TAB PO PRN (07:57)
[2020-01-30] MEDS: MULTIVITAMIN TAB PO SCH (08:00)
[2020-01-30] MEDS: GABAPENTIN 100 MG CAP PO SCH (08:00)
[2020-01-30] MEDS: levETIRAcetam 500 MG TAB PO SCH ×2 (08:01→21:01)
[2020-01-30] MEDS: LIDOCAINE 5% 1 PATCH TD SCH ×2 (08:01→12:03)
[2020-01-30] MEDS: CALCIUM ACETATE 667 MG CAP/TAB PO SCH ×3 (08:01→17:21)
[2020-01-30] MEDS: METOCLOPRAMIDE HCL 5 MG TABLET PO SCH ×2 (08:01→21:02)
[2020-01-30] MEDS: PANTOprazole 40 MG TAB PO SCH (08:01)
[2020-01-30] MEDS: FLUTICASONE/VILANTEROL 100/25MCG 14 PUFFS/INHALER INH SCH (08:01)
[2020-01-30] MEDS: carvediloL 12.5 MG TAB PO SCH ×2 (08:01→17:21)
[2020-01-30] MEDS: PIPERACILLIN/TAZOBACTAM 3.375 GM in DEXTROSE 5% 100 ML IV SCH ×2 (08:08→21:15)
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
[2020-01-30 09:34] LABS: Amphetamines+Metham, Urine Neg (Neg); Barbiturates, Urine Neg (Neg); Benzodiazepine, Urine Pos (Neg); Cocaine, Urine Neg (Neg); MDMA (Ecstacy), Urine Neg (Neg); Methadone, Urine Neg (Neg); Opiate, Urine Neg (Neg); Phencyclidine, Urine Neg (Neg)
[2020-01-30] MEDS ORDERED: SODIUM CHLORIDE 0.9% 1000ML 1,000 ML IV PRN (10:52)
--- NOTE | 2020-01-30 10:52 | Nephrology Consultation ---
Date of Consultation January 30, 2020 Assessment & Plan (1) End-stage renal disease (ESRD): Patient with ESRD on dialysis Saturday. Her last dialysis was on which was uneventful. We will dialyze her today for 3- 1/2 hours on a 3K bath and target UF of 1 L. (2) Anemia: Due to renal disease. We will give her Epogen 5000 units with dialysis. (3) Right-sided chest pain: Likely musculoskeletal. Recommend Lidoderm patch on the right upper chest. (4) Confusion: Likely metabolic encephalopathy in setting of hypo glycemia. Mental status has improved. Consider stopping antibiotics if no other signs of infection. History of Present Illness Reason for Consultation: ESRD on dialysis Requesting Physician: Juve Berumen MD Attending Physician: Juve Berumen MD History of Present Illness This is a 49-year-old female with end-stage renal disease on dialysis Saturday who was admitted on 01/29/2020 with altered mental status. Other PMH of type 1 DM, chronic diastolic CHF, prior CVAs, COPD, CAD, GERD, gastroparesis, chronic constipation, HTN, FADY, dyslipidemia, prior GIB, seizure disorder, and malnutrition. Last dialysis was on which was uneventful. Patient has a right upper arm AV fistula. She had a fistulogram on Saturday with a stenting. Yesterday she was found by home care team to be drowsy and brought to the emergency room. Her blood sugar was high per patient report. She is being treated empirically with antibiotics for infection. She is complaining of right upper chest pain. She was reportedly moving furniture at home recently. No shortness of breath. No diarrhea or vomiting. No abdominal pain. Allergies Allergy/AdvReac Type Severity Reaction Status Date / Time Fish Containing Products Allergy Mild Hives Verified 01/03/20 18:06 latex Allergy Mild hives Verified 01/03/20 18:06 shellfish derived Allergy Verified 01/08/20 10:27 Home Medications Home Medications Medication Instructions Recorded Confirmed Type [place] Caps 1 cap PO QPM 12/19/18 01/29/20 History albuterol sulfate [Proventil HFA] 2 puff INHALATION Q4H PRN 12/19/18 01/29/20 History bisacodyl 10 mg PO DAILY PRN 12/19/18 01/29/20 History carvedilol [Coreg] 12.5 mg PO BIDM 12/19/18 01/29/20 History multivitamin 1 tab PO QAM 12/19/18 01/29/20 History pantoprazole [Protonix] 40 mg PO QAM 12/19/18 01/29/20 History polyethylene glycol 3350 [Miralax] 17 g PO BID PRN 12/19/18 01/29/20 History aripiprazole [Abilify] 5 mg PO HS 05/20/19 01/29/20 History levetiracetam [Keppra] 500 mg PO BID 06/20/19 01/29/20 History Lantus Solostar U-100 Insulin 13 unit SUBCUT HS 08/01/19 01/29/20 History acetaminophen [Tylenol] 325 mg PO Q4H PRN 08/01/19 01/29/20 History atorvastatin [Lipitor] 40 mg PO HS 08/01/19 01/29/20 History sertraline [Zoloft] 100 mg PO HS 08/01/19 01/29/20 History trazodone 75 mg PO HS PRN 08/01/19 01/29/20 History calcium acetate(phosphat bind) 667 mg PO TIDM 11/09/19 01/29/20 History hydroxyzine HCl 25 mg PO TID PRN 11/09/19 01/29/20 History insulin aspart U-100 [Novolog 10 unit SUBCUT TIDM 11/09/19 01/29/20 History U-100 Insulin aspart] lamotrigine [Lamictal] 50 mg PO HS 11/09/19 01/29/20 History sevelamer carbonate [Renvela] 800 mg PO UD 11/09/19 01/29/20 History Breo Ellipta 1 inh INHALATION DAILY 01/03/20 01/29/20 History lorazepam 0.5 mg PO BID PRN 01/03/20 01/29/20 History acetone (urine) test [Ketone Urine #100 ea 01/06/20 Rx Test] linaclotide [Linzess] 145 mcg PO QAM #30 cap 01/07/20 01/29/20 Rx ergocalciferol (vitamin D2) 50,000 unit PO WK 01/29/20 01/29/20 History gabapentin 100 mg PO DAILY 01/29/20 01/29/20 History lactulose 15 ml PO BID PRN 01/29/20 01/29/20 History melatonin 3 mg PO HS 01/29/20 01/29/20 History metoclopramide HCl 5 mg PO BID 01/29/20 01/29/20 History ondansetron HCl 4 mg PO Q8H PRN 01/29/20 01/29/20 History sennosides [senna] 8.6 mg PO DAILY 01/29/20 01/29/20 History Patient History Medical History (Updated 01/29/20 @ 19:48 by Andrea Lewis M.D.) Anemia due to chronic kidney disease Arteriovenous fistula for hemodialysis in place, primary Bipolar disorder CKD (chronic kidney disease) stage V requiring chronic dialysis Coronary artery disease "2015 - cardiac catheterization showing nonobstructive coronary disease Stress test 06/2017 - possible small area of ischemia in the anterior wall" CVA (cerebral vascular accident) 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 history of CVA in 2018 Residual R sided weakness Depression Diabetic gastroparesis Diastolic heart failure DM type 1 (diabetes mellitus, type 1) ESRD (end stage renal disease) on dialysis GERD (gastroesophageal reflux disease) History of GI bleed Hyperlipidemia Hypertension Seizure Surgical History Hx of appendectomy Hx of cholecystectomy Hx of tubal ligation Family History Mother Coronary heart disease Hypertension Father Coronary heart disease Other No significant family history Social History Smoking Status: Never smoker Tobacco Type: Cigarettes Second Hand Exposure: No; Hx Alcohol Use: No Hx Substance Use: No Preferred Language: Ukrainian Communication Ability: Effective [place] Farmer Required: No Beliefs That Will Affect Care: None marital status: Single Current Living Situation: Spouse current occupational status: unemployed Other Information That Helps Us Care for You: No Feels Safe at Home: Yes Safety Concerns: Feels Safe At This Time Review of Systems Review of Systems: All systems reviewed & are unremarkable except as noted in HPI & below Physical Exam Physical Exam: General exam: Appears comfortable, no acute distress HEENT: Pupils are equal and reactive to light Neck: No JVD, neck is supple trachea is midline Respiratory system: Clear breath sounds bilaterally. Gastrointestinal: Abdomen is soft, non distended, non tender, bowel sounds are present CVS: Regular rate and rhythm. No murmurs, rubs or gallops Musculoskeletal: No joint or muscle tenderness Extremities: Non tender, no edema, peripheral pulses are present Neuro: Oriented, no tremors, no focal neurological deficits Skin: No rashes Access: Right upper arm AV fistula with good bruit Results & Data ([facility]) Vital Signs (Past 12 Hours) Vital Signs Temp Pulse Pulse Resp BP Pulse Ox 01/30/20 07:38 74 01/30/20 06:54 36.7 C 73 18 149/77 H 97 01/30/20 04:09 36.7 C 72 16 135/65 97 01/30/20 02:28 63 01/29/20 23:04 36.6 C 78 18 123/62 95 Laboratory Results 01/29/20 12:31 01/29/20 01/29/20 12:31 12:31 WBC 5.86 RBC 3.00 L MCV 93.3 MCH 31.3 MCHC 33.6 RDW Std Deviation 49.3 H RDW Coeff of Lebron 14.6 H Plt Count 306 MPV 10.4 Albumin 3.0 L (1) Anemia Anemia type: unspecified type Qualified Code(s): D64.9 - Anemia, unspecified
[2020-01-30] MEDS ORDERED: HEPARIN SOD (PORCINE) 1000 UNIT/ML 10 ML VIAL IV SCH (11:30)
[2020-01-30 12:00] LABS: Basophils # (auto) 0.04 K/uL (0-0.2); Basophils % (auto) 0.8 %; Eosinophils # (auto) 0.27 K/uL (0-0.5); Eosinophils % (auto) 5.3 %; Hematocrit (blood only) 27.7 % (37-47); Hemoglobin 9.1 g/dL (12.0-16.0); Immature Granulocytes # (auto) 0.01 K/uL (0.00-0.02); Immature Granulocytes % (auto) 0.2 %; Lymphocytes % (auto) 29.7 %; Mean Corpuscular Hemoglobin 30.5 pg (25-34); Mean Corpuscular Hgb Conc 32.9 g/dL (32-36); Mean Platelet Volume 9.9 fL (7.4-10.4); Monocytes % (auto) 5.9 %; Neutrophils # (auto) 2.93 K/uL (1.4-6.5); Neutrophils % (auto) 58.1 %; Platelet Count 274 K/uL (130-400); RDW Coefficient of Variation 14.2 % (11.5-14.5); RDW Standard Deviation 48.6 fL (36.4-46.3); Red Blood Count 2.98 M/uL (4.2-5.4); White Blood Count 5.05 K/uL (4.8-10.8)
[2020-01-30] MEDS ORDERED: EPOETIN ALFA 4,000 UNIT/ML VIAL IV SCH (12:00)
[2020-01-30] MEDS ORDERED: TRAMADOL HCL 50 MG TABLET PO STA (12:09)
[2020-01-30 12:19] LABS: Albumin Level 2.8 gm/dl (3.4-5.0); BUN Creatinine Ratio 9.9 (10-20); Calcium 8.5 mg/dl (8.5-10.1); Creatinine Clr Calc Pharmacy 12.9 ml/min; Est GFR (African American) 13.8; Est GFR (Non-African American) 11.9; Magnesium 2.5 mg/dl (1.8-2.4); Potassium 4.5 mmol/L (3.5-5.1)
[2020-01-30 12:30] LABS: Albumin Globulin Ratio 0.8 (0.9-2); Bilirubin,Total 0.3 mg/dl (0.2-1); Globulin 3.7 gm/dl (2.5-4.0); Thyroid Stimulating Hormone 3.66 uIu/ml (0.300-4.500); Total Protein 6.5 gm/dl (6.4-8.2)
[2020-01-30] MEDS: HEPARIN SOD (PORCINE) 1000 UNIT/ML 10 ML VIAL IV SCH ×2 (13:53→13:54)
--- NOTE | 2020-01-30 14:45 | Pharmacy Report ---
Glycemic Control Consultation - Date of Service January 30, 2020 - Scope Scope: Glycemic Pharmacist consulted for glycemic control and to write orders per [facility] inpatient glycemic control protocol. - Objective Weight: 58.4 kg Accuchecks BSG (last 24hrs): 01/29/20 01/29/20 01/29/20 16:26 18:11 20:19 Glucose POC Glucose 166 H 229 H 294 H 01/30/20 01/30/20 01/30/20 00:25 05:48 05:49 Glucose POC Glucose 170 H 319 H* 348 H* 01/30/20 01/30/20 01/30/20 07:25 11:44 11:48 Glucose 171 H POC Glucose 285 H 186 H Laboratory Data (last 24hrs): 01/30/20 11:44 Potassium 4.5 Carbon Dioxide 25 Anion Gap 8.0 Creatinine 4.08 H Est Cr Clr Drug Dosing 12.9 - Recent Pertinent Medications Outpatient Anti-diabetic Regimen: * Lantus 13 units HS * Novolog 10 units TID meals * A1c = 8.8 % 01/04/20 * However, this result is likely somewhat unreliable in ESRD patients d/t int eractions between the A1c analyzing technique and high levels of urea in ESRD, reduced RBC life span, iron deficiency anemia, and EPO administration. HbA1c > 7.5% in ESRD patient may overestimate the extent of hyperglycemia in ESRD patients. Risk Factors for Insulin Resistance: * Infection: Daptomycin and Zosyn * Diet:Type 1 DM, Renal - Assessment & Plan Assessment & Plan: ASSESSMENT: * 49 y/o female patient with a complicated PMH of type 1 DM, ESRD on HD, chronic diastolic CHF, prior CVAs, COPD, CAD, GERD, gastroparesis, chronic constipation, HTN, FADY, dyslipidemia, prior GIB, seizure disorder, and malnutrition who presents to the ED today for evaluation of confusion and lethargy, treating with IV antibiotics at this time. * Patient known to pharmacy glycemic service from admission in December, but was not requiring as much insulin at that time. * Blood sugars very erratic, will keep higher goal range to prevent hypoglycemia. Patient required IV insulin this morning d/t blood sugars in 300s. * Patient had HD today, will loosen CF/CR empirically to prevent hypoglycemia. PLAN FOR INPATIENT GLYCEMIC CONTROL: * Basal insulin * Lantus 15 units SQ x 1 this morning, further dosing in AM * Regular insulin * 4 units x 1 IV this AM * Bolus insulin * NovoLog per scale ACHS or Q6hrs while NPO * Goal Range: Low 120 mg/dL - High 160 mg/dL * Correction Factor: 25 mg/dL/unit * Nutritional / Prandial insulin per carb ratio of 1 unit per 15 grams CHO consumed * Please note that the plan above was derived based on current level of insulin resistance and hospital stress. These recommendations are appropriate for inpatient admission only. Plan of care upon discharge will need to be reassessed to avoid potential outpatient hypo/hyperglycemia. Thank you.
[2020-01-30] MEDS: ARIPiprazole 5 MG TAB PO SCH (21:00)
[2020-01-30] MEDS: SERTRALINE HCL 100 MG TABLET PO SCH (21:00)
[2020-01-30] MEDS: ATORVASTATIN 40 MG TAB PO SCH (21:01)
[2020-01-30] MEDS: MELATONIN 3 MG TAB PO SCH (21:14)
[2020-01-30] MEDS: NEPHROCAPS PO SCH (21:17)
[2020-01-31] MEDS ORDERED: INSULIN HUMAN REGULAR PER UNIT 5 UNITS in SYRINGE 4.95 ML IV ONE ×2 (08:00→10:45)
[2020-01-31] MEDS ORDERED: INSULIN GLARGINE SOLOSTAR 100 UNITS/ML 3 ML PEN SC ONE (08:00)
[2020-01-31] MEDS: MULTIVITAMIN TAB PO SCH (08:15)
[2020-01-31] MEDS: levETIRAcetam 500 MG TAB PO SCH ×2 (08:15→20:44)
[2020-01-31] MEDS: carvediloL 12.5 MG TAB PO SCH ×2 (08:15→17:29)
[2020-01-31] MEDS: SEVELAMER HCL 800 MG TABLET PO SCH (08:15)
[2020-01-31] MEDS: lamoTRIgine 100 MG TAB PO SCH (08:15)
[2020-01-31] MEDS: GABAPENTIN 100 MG CAP PO SCH (08:16)
[2020-01-31] MEDS: PANTOprazole 40 MG TAB PO SCH (08:16)
[2020-01-31] MEDS: CALCIUM ACETATE 667 MG CAP/TAB PO SCH ×3 (08:16→17:29)
[2020-01-31] MEDS: FLUTICASONE/VILANTEROL 100/25MCG 14 PUFFS/INHALER INH SCH (08:16)
[2020-01-31] MEDS: INSULIN ASPART 100 UNITS/ML 3 ML PEN SC SCH ×4 (08:18→20:54)
[2020-01-31] MEDS: LIDOCAINE 5% 1 PATCH TD SCH ×2 (08:19→08:30)
[2020-01-31] MEDS: METOCLOPRAMIDE HCL 5 MG TABLET PO SCH ×2 (08:20→20:45)
--- NOTE | 2020-01-31 08:27 | Hospitalist Progress Note ---
Date of Service January 31, 2020 Assessment & Plan (1) Acute confusion: acute metabolic encephalopathy -as per History and Physical on 01/29/2020:" This is a complicated 49 y/o female with a PMH of type 1 DM, ESRD on HD, chronic diastolic CHF, prior CVAs, COPD, CAD, GERD, gastroparesis, chronic constipation, HTN, FADY, dyslipidemia, prior GIB, seizure disorder, and malnutrition who presents to the ED today for evaluation of confusion and lethargy. History is somewhat difficult to obtain as patient is confused and significant other at bedside is not clearly reliable. Patient's [facility] chart was reviewed for additional history. Pt underwent a fistulogram at [facility] on Saturday revealing two areas of significant stenosis, both treatment with angioplasty and one requiring stenting. Pt apparently developed right upper arm and right upper chest pain the day after the procedure. The significant other reports that patient has been more drowsy since the procedure. Pt underwent HD yesterday with no improvement and perhaps worsening of her mental status. Today, home nursing came and found patient to be markedly lethargic so they contacted pt's PCP and significant other who then brought patient to the ED. Work-up in the ED to this point was unremarkable for a clear source of the confusion so pt was referred for admission. She is due for HD tomorrow. No reported issues with using the fistula yesterday. Pt denies taking anything for the pain. She does have Ativan PRN for anxiety with last dose reported yesterday. She also has a recent script for Tramadol by pt states that she is out of this. She did take trazodone last night for sleep. When reviewing her outpatient medication list from [facility] with the pt and significant other, they stated that the facility she was recently at in [place] still has many of her medications and her walker and they have been unable to get these back. Per significant other, pt's blood sugars have also been erratic over the past 24 hours with a low of 119 and a high today in the 400s. The home nurse was also concerned about the elevated and erratic sugars this AM. " -No acute intracranial abnormality on admission CT head -admitting team started patient on broad spectrum antibiotics in case there is possible underlying infectious process for confusion. based on patient's chart and personal history, an infectious process is unlikely. blood cultures from admission 01/29/2020 and IV Zosyn and IV daptomycin orders are discontinued on 01/31/2020 -01/30/2020 hospitalist exam in the morning:Ms. Luu is awake and alert and oriented. She feels that it was her fluctuating blood sugars that was contri buting to her lethargy at home after [facility] [place]. Bipolar disorder -patient remains at mental baseline. continue patient's home medications for mood disorder: lamotrigine, sertraline, aripiprazole, Keppra (2) Right-sided chest pain: Right Arm pain -may be related to recent fistulogram with angioplasty and stent versus musculoskeletal pain -no acute events with recent dialysis -patient has lidoderm patch to right shoulder for possible shoulder strain as per nephrology Dr. Donaldson recommendation -patient's home medications were reviewed and there is prn tramadol (3) ESRD (end stage renal disease) on dialysis: -Usual dialysis days are Saturday//Saturday -completed inpatient dialysis on Saturday01/30/2020 without acute events -nephrology consult on dialysis (4) Anemia: -Hgb appears stable from last month - pt/significant other unclear on the Aranesp dosing. Will defer to nephrology - Continue to monitor labs (5) Hyperglycemia due to type 1 diabetes mellitus: -Sugars have been erratic at home over past 24-48 hours with a low of 119 and high in the 400s prior to this admission when at home as per admission notes -pharmacy glycemic control for management of blood sugars and insulin -01/31/2020: medical doctor notified by nurse that AM blood glucose 575, patient will need further inpatient management of blood sugars with pharmacy glycemic consult recommendations (6) Diabetic gastroparesis associated with type 1 diabetes mellitus: -Continue outpatient Reglen 5 mg BID -pharmacy glycemic control for management of blood sugars and insulin (7) GERD (gastroesophageal reflux disease): - Continue pantoprazole (8) Constipation, chronic: -admission KUB: "Moderate well-formed stool seen throughout the colon and rectum. This has slightly improved in the interval. Prior cholecystectomy. An in trauterine device is located within the mid pelvis. No renal calculi. No ureteral calculi. Calcifications in the deep pelvis likely represent phleboliths. These remain unchanged. No pneumoperitoneum or pneumatosis." -on bowel regimen, continue (9) Coronary artery disease: - Continue outpatient statin and carvedilol (10) Discharge planning issues: -consult case management for assistance with discharge planning -patient affirms that her male relation who visits her and helps her with medications is her Admission and Anticipated Discharge Date Admission Date: January 29, 2020 Subjective completed inpatient dialysis on Saturday01/30/2020 without acute events, patient remains at mental baseline. medical doctor notified by nurse that AM blood glucose 575, patient will need further inpatient management of blood sugars with pharmacy glycemic consult recommendations. patient agrees to the planning. She has some runny nose today from allergies and requesting Benadryl. no chest pain. no shortness of breath. breathing on room air. no acute abdomen pain Review of Systems Review of Systems: All systems reviewed & are unremarkable except as noted in Subjective Physical Exam Constitutional: cooperative Eyes: PERRL, conjunctivae normal, anicteric sclerae EOM intact bilaterally ENMT: external ear and nose normal, oropharynx normal Neck: trachea midline, no thyromegaly normal visual inspection Respiratory: normal respiratory effort, lungs clear to auscultation Cardiovascular: Rate/Rhythm: regular rate Extremities: + AV fistula (right arm) Gastrointestinal (Abdomen): normal bowel sounds, soft, nontender, no hepatosplenomegaly Musculoskeletal: Head/Neck/Chest: normocephalic and head atraumatic Neurologic: PERRL, EOMI, accommodation nl, no face palsy, no dysarthria CN's II-XI intact bilaterally Psychiatric: A+Ox3, euthymic affect Results & Data Results & Data ([facility]) Vital Signs (Past 12 Hours) Vital Signs Temp Pulse Pulse Resp BP Pulse Ox 01/31/20 07:30 78 01/31/20 06:45 36.7 C 77 18 148/63 H 98 01/31/20 03:15 37 C 74 16 141/69 H 98 01/31/20 00:26 83 01/30/20 23:00 37 C 82 18 121/65 98 (1) Anemia Anemia type: unspecified type Qualified Code(s): D64.9 - Anemia, unspecified
[2020-01-31] MEDS: TRAMADOL HCL 50 MG TABLET PO PRN ×2 (08:29→16:15)
--- NOTE | 2020-01-31 10:25 | Nephrology Progress Note ---
Date of Service January 31, 2020 Assessment & Plan (1) End-stage renal disease (ESRD): Patient with ESRD on dialysis Saturday. Her last outpatient dialysis was on which was uneventful. She tolerated dialysis well yesterday with net UF of 1 L. Next dialysis will be Saturday unless clinical status changes. (2) Anemia: Due to renal disease. We will give her Epogen 5000 units with dialysis. (3) Right-sided chest pain: Likely musculoskeletal. Improving with Lidoderm patch on the right upper chest. (4) Confusion: Likely metabolic encephalopathy in setting of hypo glycemia. Mental status has improved. Consider stopping antibiotics if no other signs of infection. Admission and Anticipated Discharge Date Admission Date: January 29, 2020 Subjective Patient feels better today. She is more awake. She tolerated dialysis yesterday with net UF of 1 L. No shortness of breath or leg swelling. Blood sugars controlled Review of Systems Review of Systems: All systems reviewed & are unremarkable except as noted in HPI & below Physical Exam Physical Exam: General exam: Appears comfortable, no acute distress HEENT: Pupils are equal and reactive to light Neck: No JVD, neck is supple trachea is midline Respiratory system: Clear breath sounds bilaterally. Gastrointestinal: Abdomen is soft, non distended, non tender, bowel sounds are present CVS: Regular rate and rhythm. No murmurs, rubs or gallops Musculoskeletal: No joint or muscle tenderness Extremities: Non tender, no edema, peripheral pulses are present Neuro: Oriented, no tremors, no focal neurological deficits Skin: No rashes Access: Right upper arm AV fistula with good bruit Results & Data ([facility]) Vital Signs (Past 12 Hours) Vital Signs Temp Pulse Pulse Resp BP Pulse Ox 01/31/20 07:30 78 01/31/20 06:45 36.7 C 77 18 148/63 H 98 01/31/20 03:15 37 C 74 16 141/69 H 98 01/31/20 00:26 83 01/30/20 23:00 37 C 82 18 121/65 98 Laboratory Results 01/30/20 11:44 01/30/20 01/30/20 11:44 11:44 WBC 5.05 RBC 2.98 L MCV 93.0 MCH 30.5 MCHC 32.9 RDW Std Deviation 48.6 H RDW Coeff of Lebron 14.2 Plt Count 274 MPV 9.9 Albumin 2.8 L (1) Anemia Anemia type: unspecified type Qualified Code(s): D64.9 - Anemia, unspecified
--- NOTE | 2020-01-31 11:05 | Pharmacy Report ---
Pharmacy Glycemic Short Note 2 - Date of Service January 31, 2020 - Glycemic Short BSG Results (Last 24 hours): 01/30/20 01/30/20 01/30/20 11:44 11:48 17:01 Glucose 171 H POC Glucose 186 H 100 H 01/30/20 01/31/20 01/31/20 19:59 07:32 07:33 Glucose POC Glucose 223 H 575 H* 590 H* 01/31/20 10:13 Glucose POC Glucose 578 H* OUTPATIENT ANTIDIABETIC REGIMEN: * Lantus 13 units HS * Novolog 10 units TID meals * A1c = 8.8 % 01/04/20 Risk Factors for Insulin Resistance: * Infection: Daptomycin and Zosyn * Diet:Type 1 DM, Renal ASSESSMENT: 01/30: * Patient's BSGs were well controlled last evening. She received a total of 32 units of SQ insulin yesterday (15 units basal, 17 units bolus) * Fasting BSG was 590 mg/dL this AM. Unknown reason for BSG elevation. I confirmed that patient did not eat prior to BSG check. She was treated with an IV bolus of 5 units + 21 units of Novolog with her breakfast. Repeat BSG drawn about two hours later resulted at 578 mg/dL. Stat labs obtained. Anion gap and bi carb are WNL. * Start IV insulin infusion per hyperglycemica protocol 01/29: * 49 y/o female patient with a complicated PMH of type 1 DM, ESRD on HD, chronic diastolic CHF, prior CVAs, COPD, CAD, GERD, gastroparesis, chronic constipation, HTN, FADY, dyslipidemia, prior GIB, seizure disorder, and malnu trition who presents to the ED today for evaluation of confusion and lethargy, treating with IV antibiotics at this time. * Patient known to pharmacy glycemic service from admission in December, but was not requiring as much insulin at that time. * Blood sugars very erratic, will keep higher goal range to prevent hypoglycemia. Patient required IV insulin this morning d/t blood sugars in 300s. * Patient had HD today, will loosen CF/CR empirically to prevent hypoglycemia. PLAN FOR INPATIENT GLYCEMIC CONTROL: * Basal insulin * Lantus 15 units SQ qAM * Start IV insulin infusion for severe hyperglycemia * goal range: 140 - 180 mg/dL PLAN FOR DISCHARGE: * A1c = 8.8 % 01/04/20 * However, this result is likely somewhat unreliable in ESRD patients d/t interactions between the A1c analyzing technique and high levels of urea in ESRD, reduced RBC life span, iron deficiency anemia, and EPO administration. HbA1c > 7.5% in ESRD patient may overestimate the extent of hyperglycemia in ESRD patients. * Patient should monitor BSG values closely at home and adjust insulin doses accordingly per outpatient provider
[2020-01-31 11:58] LABS: Calcium 8.8 mg/dl (8.5-10.1); Creatinine Clr Calc Pharmacy 15.3 ml/min; Est GFR (Non-African American) 14.6; Potassium 4.1 mmol/L (3.5-5.1)
--- NOTE | 2020-01-31 12:16 | XRay Report ---
XR shoulder RT min 2V routine CLINICAL HISTORY: Right shoulder pain. COMPARISON: None FINDINGS: Vascular stent projects over the right axilla. Alignment of the right shoulder is anatomic . There is no fracture or suspicious osseous lesion. Mild right shoulder osteoarthritis is noted. IMPRESSION: 1. No acute fracture or dislocation within the right shoulder. 2. Mild osteoarthritis of the right shoulder. ACT 112: Negative or not required by law. Electronically signed by: Everardo Williamson M.D. 01/31/2020 12:14 PM
--- NOTE | 2020-01-31 12:16 | XRay Report ---
XR chest 2V PA/lateral CLINICAL HISTORY: right shoulder pain COMPARISON STUDY: Chest radiograph January 29, 2020. FINDINGS: Lung volumes are normal. Lungs are clear. There is no pneumothorax or pleural effusion. Car diac size is normal. Mediastinal contours are normal. There is no evidence for pulmonary edema. Incid ental note is made of a right axillary vascular stent and cholecystectomy clips. IMPRESSION: No acute cardiopulmonary findings. ACT 112: Negative or not required by law. Electronically signed by: Everardo Williamson M.D. 01/31/2020 12:15 PM
[2020-01-31 12:19] LABS: Beta-Hydroxybutyrate 1.85 mg/dl (0.2-2.81)
[2020-01-31] MEDS ORDERED: INSULIN REGULAR 250 UNITS in SODIUM CHLORIDE 0.9% 247.5 ML IV SCH (12:30)
[2020-01-31 17:44] LABS: BUN Creatinine Ratio 9.1 (10-20); Calcium 8.5 mg/dl (8.5-10.1); Creatinine Clr Calc Pharmacy 15.8 ml/min; Est GFR (African American) 17.6; Est GFR (Non-African American) 15.2; Potassium 4.3 mmol/L (3.5-5.1)
[2020-01-31 17:47] LABS: 7-Aminoclonaz, Confirm NEGATIVE ng/mL (<25); Hydro-Alp Ur, GC/MS NEGATIVE ng/mL (<25); Hydroxyethylflurazepam, Conf NEGATIVE ng/mL (<50); Hydroxymidazolam Ur, GC/MS 247 ng/mL (<50); Hydroxytriazolam NEGATIVE ng/mL (<50); Lorazepam, Ur GC/MS NEGATIVE ng/mL (<50); Nordiazepam, Confirm NEGATIVE ng/mL (<50); Oxazepam Ur, GC/MS 1980 ng/mL (<50); Temazepam, Confirm >2000 ng/mL (<50)
[2020-01-31] MEDS: ATORVASTATIN 40 MG TAB PO SCH (20:46)
[2020-01-31] MEDS: SERTRALINE HCL 100 MG TABLET PO SCH (20:46)
[2020-01-31] MEDS: ARIPiprazole 5 MG TAB PO SCH (20:46)
[2020-01-31] MEDS: MELATONIN 3 MG TAB PO SCH (20:55)
[2020-01-31] MEDS: NEPHROCAPS PO SCH (20:59)
[2020-02-01] MEDS: INSULIN ASPART 100 UNITS/ML 3 ML PEN SC SCH ×3 (04:47→12:10)
[2020-02-01] MEDS ORDERED: INSULIN GLARGINE SOLOSTAR 100 UNITS/ML 3 ML PEN SC ONE (07:45)
[2020-02-01] MEDS: carvediloL 12.5 MG TAB PO SCH (08:09)
[2020-02-01] MEDS: METOCLOPRAMIDE HCL 5 MG TABLET PO SCH (08:09)
[2020-02-01] MEDS: levETIRAcetam 500 MG TAB PO SCH (08:10)
[2020-02-01] MEDS: GABAPENTIN 100 MG CAP PO SCH (08:10)
[2020-02-01] MEDS: PANTOprazole 40 MG TAB PO SCH (08:10)
[2020-02-01] MEDS: CALCIUM ACETATE 667 MG CAP/TAB PO SCH ×2 (08:11→12:11)
[2020-02-01] MEDS: lamoTRIgine 100 MG TAB PO SCH (08:11)
[2020-02-01] MEDS: LIDOCAINE 5% 1 PATCH TD SCH ×2 (08:12→08:29)
[2020-02-01] MEDS: MULTIVITAMIN TAB PO SCH (08:12)
[2020-02-01] MEDS: FLUTICASONE/VILANTEROL 100/25MCG 14 PUFFS/INHALER INH SCH (08:14)
[2020-02-01] MEDS: TRAMADOL HCL 50 MG TABLET PO PRN (10:12)
--- NOTE | 2020-02-01 10:45 | Hospitalist Progress Note ---
Date of Service February 01, 2020 Assessment & Plan (1) Acute confusion: acute metabolic encephalopathy -as per History and Physical on 01/29/2020:" This is a complicated 49 y/o female with a PMH of type 1 DM, ESRD on HD, chronic diastolic CHF, prior CVAs, COPD, CAD, GERD, gastroparesis, chronic constipation, HTN, FADY, dyslipidemia, prior GIB, seizure disorder, and malnutrition who presents to the ED today for evaluation of confusion and lethargy. History is somewhat difficult to obtain as patient is confused and significant other at bedside is not clearly reliable. Patient's [facility] chart was reviewed for additional history. Pt underwent a fistulogram at [facility] on Saturday revealing two areas of significant stenosis, both treatment with angioplasty and one requiring stenting. Pt apparently developed right upper arm and right upper chest pain the day after the procedure. The significant other reports that patient has been more drowsy since the procedure. Pt underwent HD yesterday with no improvement and perhaps worsening of her mental status. Today, home nursing came and found patient to be markedly lethargic so they contacted pt's PCP and significant other who then brought patient to the ED. Work-up in the ED to this point was unremarkable for a clear source of the confusion so pt was referred for admission. She is due for HD tomorrow. No reported issues with using the fistula yesterday. Pt denies taking anything for the pain. She does have Ativan PRN for anxiety with last dose reported yesterday. She also has a recent script for Tramadol by pt states that she is out of this. She did take trazodone last night for sleep. When reviewing her outpatient medication list from [facility] with the pt and significant other, they stated that the facility she was recently at in [place] still has many of her medications and her walker and they have been unable to get these back. Per significant other, pt's blood sugars have also been erratic over the past 24 hours with a low of 119 and a high today in the 400s. The home nurse was also concerned about the elevated and erratic sugars this AM. " -No acute intracranial abnormality on admission CT head -admitting team started patient on broad spectrum antibiotics in case there is possible underlying infectious process for confusion. based on patient's chart and personal history, an infectious process is unlikely. blood cultures from admission 01/29/2020 and IV Zosyn and IV daptomycin orders are discontinued on 01/31/2020 -01/30/2020 hospitalist exam in the morning:Ms. Luu is awake and alert and oriented. She feels that it was her fluctuating blood sugars that was contri buting to her lethargy at home after her right arm fistuala procedure at [facility] in [place]. -discharge from hospital with home health services in place on 02/01/2020 Bipolar disorder -patient remains at mental baseline. continue patient's home medications for mood disorder: lamotrigine, sertraline, aripiprazole, Keppra (2) Right-sided chest pain: Right Arm pain (Mild osteoarthritis of the right shoulder,. No acute fracture or dislocation within the right shoulder on right shoulder X ray on 01/31/2020) -may be related to recent fistulogram with angioplasty and stent versus musculoskeletal pain -no acute events with recent dialysis -patient had lidoderm patch in the hospital -patient's home medications were reviewed and there is prn tramadol -Mild osteoarthritis of the right shoulder,. No acute fracture or dislocation within the right shoulder on right shoulder X ray on 01/31/2020. patient may take prn acetaminophen versus warm compress over the right shoulder when needed (3) ESRD (end stage renal disease) on dialysis: -Usual dialysis days are Saturday//Saturday -completed inpatient dialysis on Saturday01/30/2020 without acute events -can continue usual dialysis schedul on discharge (4) Anemia: -Hgb appears stable, outpatient monitoring (5) Hyperglycemia due to type 1 diabetes mellitus: -Sugars have been erratic at home over past 24-48 hours with a low of 119 and high in the 400s prior to this admission when at home as per admission notes -pharmacy glycemic control for management of blood sugars and insulin -01/31/2020: medical doctor notified by nurse that AM blood glucose 575, patient has further inpatient management of blood sugars with pharmacy glycemic consult with IV insulin -02/01/2020 discussed with pharmacist on discharge recommendations and that patient's discharge basal insulin to be increased from 13 units QHS to 15 units QHS and to keep her home dose 10 units Novolog with meals the same. (6) Diabetic gastroparesis associated with type 1 diabetes mellitus: -Continue outpatient Reglan 5 mg BID -diabetes management with insulin (7) GERD (gastroesophageal reflux disease): - Continue pantoprazole (8) Constipation, chronic: -admission KUB: "Moderate well-formed stool seen throughout the colon and rectum. This has slightly improved in the interval. Prior cholecystectomy. An intrauterine device is located within the mid pelvis. No renal calculi. No ureteral calculi. Calcifications in the deep pelvis likely represent phleboliths. These remain unchanged. No pneumoperitoneum or pneumatosis." -on bowel regimen, continue (9) Coronary artery disease: - Continue outpatient statin and carvedilol (10) Discharge planning issues: -consult case management for assistance with discharge planning -patient affirms that her male relation who visits her and helps her with medications is her . she reports that she feels safe at home. case managed affirms that patient has home health services Admission and Anticipated Discharge Date Admission Date: January 29, 2020 Subjective Patient continues to be at mental baseline. blood glucose better today. discussed with patient the management of of right shoulder pain which is mild osteoarthritis. patient affirms feeling safe at home. discussed with case nestor [place] on coordinating discharge follow ups. on room air. no shortness of breath. no chest pain. no palpitations. no headache. no vomiting. no fevers Review of Systems Review of Systems: All systems reviewed & are unremarkable except as noted in Subjective Physical Exam Constitutional: cooperative Eyes: PERRL, conjunctivae normal, anicteric sclerae EOM intact bilaterally ENMT: external ear and nose normal, oropharynx normal Neck: trachea midline, no thyromegaly normal visual inspection Respiratory: normal respiratory effort, lungs clear to auscultation Cardiovascular: Rate/Rhythm: regular rate Extremities: + AV fistula (right arm) Gastrointestinal (Abdomen): normal bowel sounds, soft, nontender, no hepatosplenomegaly Musculoskeletal: Head/Neck/Chest: normocephalic and head atraumatic Neurologic: PERRL, EOMI, accommodation nl, no face palsy, no dysarthria CN's II-XI intact bilaterally Psychiatric: A+Ox3, euthymic affect Results & Data Results & Data ([facility]) Vital Signs (Past 12 Hours) Vital Signs Temp Pulse Pulse Pulse Resp BP Pulse Ox 02/01/20 07:50 36.7 C 77 18 154/72 H 98 02/01/20 07:43 70 08/24/20 02:50 36.7 C 72 15 108/62 99 02/01/20 01:46 70 (1) Anemia Anemia type: unspecified type Qualified Code(s): D64.9 - Anemia, unspecified
--- NOTE | 2020-02-01 11:04 | Pharmacy Report ---
Pharmacy Glycemic Short Note 2 - Date of Service February 01, 2020 - Glycemic Short BSG Results (Last 24 hours): 01/31/20 01/31/20 01/31/20 11:02 11:45 11:46 Glucose 469 H* POC Glucose 414 H* 414 H* 01/31/20 01/31/20 01/31/20 13:45 14:40 15:41 Glucose POC Glucose 328 H* 294 H 219 H 01/31/20 01/31/20 01/31/20 16:53 17:11 17:46 Glucose 129 H POC Glucose 166 H 155 H 01/31/20 01/31/20 01/31/20 18:41 19:55 20:59 Glucose POC Glucose 222 H 149 H 152 H 01/31/20 01/31/20 01/31/20 21:59 23:02 23:58 Glucose POC Glucose 190 H 167 H 144 H 02/01/20 02/01/20 02/01/20 01:05 01:57 04:02 Glucose POC Glucose 97 102 H 236 H 02/01/20 07:43 Glucose POC Glucose 241 H OUTPATIENT ANTIDIABETIC REGIMEN: * Lantus 13 units HS * Novolog 10 units TID meals * A1c = 8.8 % 01/04/20 Risk Factors for Insulin Resistance: * Infection: Daptomycin and Zosyn * Diet:Type 1 DM, Renal ASSESSMENT: 01/31: * BSGs well controlled on insulin drip yesterday. Patient received 18.6 units of insulin over a 14 hour span. Insulin gtt was shut off at ~ 0300 today. * Gave the patient a one time dose of Lantus 20 units this AM and tightened CF and CR. * Fasting BSG was 241 mg/dL this morning hence increase in basal insulin regimen * Lunchtime BSG was [] ... 01/30: * Patient's BSGs were well controlled last evening. She received a total of 32 units of SQ insulin yesterday (15 units basal, 17 units bolus) * Fasting BSG was 590 mg/dL this AM. Unknown reason for BSG elevation. I confirmed that patient did not eat prior to BSG check. She was treated with an IV bolus of 5 units + 21 units of Novolog with her breakfast. Repeat BSG drawn about two hours later resulted at 578 mg/dL. Stat labs obtained. Anion gap and bi carb are WNL. * Start IV insulin infusion per hyperglycemica protocol 01/29: * 49 y/o female patient with a complicated PMH of type 1 DM, ESRD on HD, chronic diastolic CHF, prior CVAs, COPD, CAD, GERD, gastroparesis, chronic constipation, HTN, FADY, dyslipidemia, prior GIB, seizure disorder, and malnutrition who presents to the ED today for evaluation of confusion and lethargy, treating with IV antibiotics at this time. * Patient known to pharmacy glycemic service from admission in December, but was not requiring as much insulin at that time. * Blood sugars very erratic, will keep higher goal range to prevent hypoglycemia. Patient required IV insulin this morning d/t blood sugars in 300s. * Patient had HD today, will loosen CF/CR empirically to prevent hypoglycemia. PLAN FOR INPATIENT GLYCEMIC CONTROL: * Basal insulin - increased * Lantus 20 units SQ qAM * Novolog per scale ACHS * Goal Range = 110 - 140 mg/dL * Correction Factor: 1 unit for every 20 mg/dL above goal range * Carb Ratio: 1 unit for every 10 gms of CHO PLAN FOR DISCHARGE: * A1c = 8.8 % 01/04/20 * However, this result is likely somewhat unreliable in ESRD patients d/t interactions between the A1c analyzing technique and high levels of urea in ESRD, reduced RBC life span, iron deficiency anemia, and EPO administration. HbA1c > 7.5% in ESRD patient may overestimate the extent of hyperglycemia in ESRD patients. * Recommend increasing Lantus to 15 units SQ HS upon discharge * Patient should monitor BSG values closely at home
--- NOTE | 2020-02-02 15:22 | Discharge Summary ---
Date of Service February 01, 2020 Admission HPI Per Admitting Provider This is a complicated 49 y/o female with a PMH of type 1 DM, ESRD on HD, chronic diastolic CHF, prior CVAs, COPD, CAD, GERD, gastroparesis, chronic constipation, HTN, FADY, dyslipidemia, prior GIB, seizure disorder, and malnutrition who presents to the ED today for evaluation of confusion and lethargy. History is somewhat difficult to obtain as patient is confused and significant other at bedside is not clearly reliable. Patient's [facility] chart was reviewed for additional history. Pt underwent a fistulogram at [facility] on Saturday revealing two areas of significant stenosis, both treatment with angioplasty and one requiring stenting. Pt apparently developed right upper arm and right upper chest pain the day after the procedure. The significant other reports that patient has been more drowsy since the procedure. Pt underwent HD yesterday with no improvement and perhaps worsening of her mental status. Today, home nursing came and found patient to be markedly lethargic so they contacted pt's PCP and significant other who then brought patient to the ED. Work-up in the ED to this point was unremarkable for a clear source of the confusion so pt was referred for admission. She is due for HD tomorrow. No reported issues with using the fistula yesterday. Pt denies taking anything for the pain. She does have Ativan PRN for anxiety with last dose reported yesterday. She also has a recent script for Tramadol by pt states that she is out of this. She did take trazodone last night for sleep. When reviewing her outpatient medication list from [facility] with the pt and significant other, they stated that the facility she was recently at in [place] still has many of her medications and her walker and they have been unable to get these back. Per significant other, pt's blood sugars have also been erratic over the past 24 hours with a low of 119 and a high today in the 400s. The home nurse was also concerned about the elevated and erratic sugars this AM. Principal Diagnosis acute metabolic encephalopathy ESRD (end stage renal disease) on dialysis Right Arm pain (Mild osteoarthritis of the right shoulder,. No acute fracture or dislocation within the right shoulder on right shoulder X ray on 01/31/2020) hyperglycemia due to type 1 diabetes mellitus Diabetic gastroparesis associated with type 1 diabetes mellitus Discharge Exam Constitutional cooperative Eyes PERRL, conjunctivae normal, anicteric sclerae EOM intact bilaterally ENMT external ear and nose normal, oropharynx normal Neck trachea midline, no thyromegaly normal visual inspection Respiratory normal respiratory effort, lungs clear to auscultation Cardiovascular Rate/Rhythm: regular rate Extremities: + AV fistula (right arm) Gastrointestinal (Abdomen) normal bowel sounds, soft, nontender, no hepatosplenomegaly Musculoskeletal Head/Neck/Chest: normocephalic and head atraumatic Neurologic PERRL, EOMI, accommodation nl, no face palsy, no dysarthria CN's II-XI intact bilaterally Psychiatric A+Ox3, euthymic affect Discharge Data Allergies Allergy/AdvReac Type Severity Reaction Status Date / Time Fish Containing Products Allergy Mild Hives Verified 01/03/20 18:06 latex Allergy Mild hives Verified 01/03/20 18:06 shellfish derived Allergy Verified 01/08/20 10:27 Consultations 01/29/20 14:13 ED Decision to Admit Stat 01/29/20 15:34 Consult Nephrology Routine 01/29/20 16:49 Consult Case Management - Discharge Planning Routine Ordered Studies 01/29/20 12:10 CT head/brain wo con Stat Hospital Course (1) Acute confusion: acute metabolic encephalopathy -as per History and Physical on 01/29/2020:" This is a complicated 49 y/o female with a PMH of type 1 DM, ESRD on HD, chronic diastolic CHF, prior CVAs, COPD, CAD, GERD, gastroparesis, chronic constipation, HTN, FADY, dyslipidemia, prior GIB, seizure disorder, and malnutrition who presents to the ED today for evaluation of confusion and lethargy. History is somewhat difficult to obtain as patient is confused and significant other at bedside is not clearly reliable. Patient's [facility] chart was reviewed for additional history. Pt underwent a fistulogram at [facility] on Saturday revealing two areas of significant stenosis, both treatment with angioplasty and one requiring stenting. Pt apparently developed right upper arm and right upper chest pain the day after the procedure. The significant other reports that patient has been more drowsy since the procedure. Pt underwent HD yesterday with no improvement and perhaps worsening of her mental status. Today, home nursing came and found patient to be markedly lethargic so they contacted pt's PCP and significant other who then brought patient to the ED. Work-up in the ED to this point was unremarkable for a clear source of the confusion so pt was referred for admission. She is due for HD tomorrow. No reported issues with using the fistula yesterday. Pt denies taking anything for the pain. She does have Ativan PRN for anxiety with last dose reported yesterday. She also has a recent script for Tramadol by pt states that she is out of this. She did take trazodone last night for sleep. When reviewing her outpatient medication list from [facility] with the pt and significant other, they stated that the facility she was recently at in [place] still has many of her medications and her walker and they have been unable to get these back. Per significant other, pt's blood sugars have also been erratic over the past 24 hours with a low of 119 and a high today in the 400s. The home nurse was also concerned about the elevated and erratic sugars this AM. " -No acute intracranial abnormality on admission CT head -admitting team started patient on broad spectrum antibiotics in case there is possible underlying infectious process for confusion. based on patient's chart and personal history, an infectious process is unlikely. blood cultures from admission 01/29/2020 and IV Zosyn and IV daptomycin orders are discontinued on 01/31/2020 -01/30/2020 hospitalist exam in the morning:Ms. Luu is awake and alert and oriented. She feels that it was her fluctuating blood sugars that was contributing to her lethargy at home after her right arm fistuala procedure at [facility] in [place]. -discharge from hospital with home health services in place on 02/01/2020 Bipolar disorder -patient remains at mental baseline. continue patient's home medications for mood disorder: lamotrigine, sertraline, aripiprazole, Keppra (2) Right-sided chest pain: Right Arm pain (Mild osteoarthritis of the right shoulder,. No acute fracture or dislocation within the right shoulder on right shoulder X ray on 01/31/2020) -may be related to recent fistulogram with angioplasty and stent versus musculoskeletal pain -no acute events with recent dialysis -patient had lidoderm patch in the hospital -patient's home medications were reviewed and there is prn tramadol -Mild osteoarthritis of the right shoulder,. No acute fracture or dislocation within the right shoulder on right shoulder X ray on 01/31/2020. patient may take prn acetaminophen versus warm compress over the right shoulder when needed (3) ESRD (end stage renal disease) on dialysis: -Usual dialysis days are Saturday//Saturday -completed inpatient dialysis on Saturday01/30/2020 without acute events -can continue usual dialysis schedul on discharge (4) Anemia: -Hgb appears stable, outpatient monitoring (5) Hyperglycemia due to type 1 diabetes mellitus: -Sugars have been erratic at home over past 24-48 hours with a low of 119 and high in the 400s prior to this admission when at home as per admission notes -pharmacy glycemic control for management of blood sugars and insulin -01/31/2020: medical doctor notified by nurse that AM blood glucose 575, patient has further inpatient management of blood sugars with pharmacy glycemic consult with IV insulin -02/01/2020 discussed with pharmacist on discharge recommendations and that patient's discharge basal insulin to be increased from 13 units QHS to 15 units QHS and to keep her home dose 10 units Novolog with meals the same. (6) Diabetic gastroparesis associated with type 1 diabetes mellitus: -Continue outpatient Reglan 5 mg BID -diabetes management with insulin (7) GERD (gastroesophageal reflux disease): - Continue pantoprazole (8) Constipation, chronic: -admission KUB: "Moderate well-formed stool seen throughout the colon and rectum. This has slightly improved in the interval. Prior cholecystectomy. An intrauterine device is located within the mid pelvis. No renal calculi. No u reteral calculi. Calcifications in the deep pelvis likely represent phleboliths. These remain unchanged. No pneumoperitoneum or pneumatosis." -on bowel regimen, continue (9) Coronary artery disease: - Continue outpatient statin and carvedilol (10) Discharge planning issues: -consult case management for assistance with discharge planning -patient affirms that her male relation who visits her and helps her with medications is her . she reports that she feels safe at home. case managed affirms that patient has home health services Total Time Total Time Spent Total Time Spent (In Minutes): 40 minutes Total Time Includes: Examination of the Patient, Discharge Planning, Medication Reconciliation and Communication With Other Providers Discharge Plan Discharge Items Patient Disposition: Home - Home Health Services Reason For Visit: CONFUSION Discharge Diagnosis: acute metabolic encephalopathy ESRD (end stage renal disease) on dialysis Right Arm pain (Mild osteoarthritis of the right shoulder,. No acute fracture or dislocation within the right shoulder on right shoulder X ray on 01/31/2020) hyperglycemia due to type 1 diabetes mellitus Diabetic gastroparesis associated with type 1 diabetes mellitus Condition on Discharge: Good Activity: Resume your previous activity Non-emergency contact: Primary Care Provider Call non-emergency contact if: you have any medication questions Follow-up/Referrals: Mitchel Santo MD [Primary Care Provider] - Diet: Carb Consistent or DM2 Addtl Attending Provider Instructions: discharge medication sent electronically to [facility] [address] [place] [id number] for Lantus (glargine) 15 units at night. Patient to continue Novolog as 10 units each with every meal (three times a day) acetaminophen 325 mg every 6 hours as needed for pain or fever (20 tablets). Patient can place warm compress over right shoulder when needed upcoming appointments continue dialysis every Saturday//Saturday02/09/2020 12:20 PM Provider Mitchel Santo MD Department [facility] 02/23/2020 11:00 AM Provider Mary Espinoza MD Department [facility] 03/08/2020 9:30 AM Provider [facility] 9:30 AM Provider Saran Keane MD Department [facility] Pending Studies at Discharge: No Stand-Alone Forms: My [facility], Smoking Cessation Medications and DC Order Prescriptions: New acetaminophen 325 mg Tablet 325 mg PO Q6H PRN (Reason: fever or pain) 5 Days Qty: 20 RF: 0 Lantus Solostar U-100 Insulin 100 unit/mL (3 mL) insulin pen 15 unit subcut PM 30 Days Qty: 15 RF: 0 Continued aripiprazole [Abilify] 5 mg tablet 5 mg PO HS RF: 0 atorvastatin [Lipitor] 40 mg tablet 40 mg PO HS RF: 0 trazodone 50 mg tablet 75 mg PO HS PRN (Reason: Insomnia) RF: 0 sertraline [Zoloft] 100 mg tablet 100 mg PO HS RF: 0 insulin aspart U-100 [Novolog U-100 Insulin aspart] 100 unit/mL solution 10 unit subcut TIDM RF: 0 hydroxyzine HCl 25 mg tablet 25 mg PO TID PRN (Reason: Unknown) RF: 0 calcium acetate(phosphat bind) 667 mg capsule 667 mg PO TIDM RF: 0 sevelamer carbonate [Renvela] 800 mg tablet 800 mg PO UD RF: 0 multivitamin Tablet 1 tab PO QAM RF: 0 carvedilol [Coreg] 25 mg Tablet 12.5 mg PO BIDM RF: 0 polyethylene glycol 3350 [Miralax] 17 gram Powder In Packet 17 g PO BID PRN (Reason: Constipation) RF: 0 pantoprazole [Protonix] 40 mg Tablet,Delayed Release (Dr/Ec) 40 mg PO QAM RF: 0 Leo Caps 1 mg Capsule 1 cap PO QPM RF: 0 albuterol sulfate [Proventil HFA] 90 mcg/actuation HFA aerosol inhaler 2 puff inhalation Q4H PRN (Reason: Wheezing) RF: 0 bisacodyl 5 mg Tablet 10 mg PO DAILY PRN (Reason: Constipation) RF: 0 levetiracetam [Keppra] 500 mg tablet 500 mg PO BID RF: 0 lorazepam 0.5 mg Tablet 0.5 mg PO BID PRN (Reason: Anxiety) RF: 0 Breo Ellipta 100-25 mcg/dose blister with device 1 inh INHALATION DAILY RF: 0 (DME) Ketone Urine Test Strip See Rx Instructions .ROUTE .MEDSUPPLY Qty: 100 RF: 1 Linzess 145 mcg capsule 145 mcg PO QAM Qty: 30 RF: 1 melatonin 3 mg Tablet 3 mg PO HS RF: 0 gabapentin 100 mg capsule 100 mg PO DAILY RF: 0 sennosides [senna] 8.6 mg tablet 8.6 mg PO DAILY RF: 0 ondansetron HCl 4 mg tablet 4 mg PO Q8H PRN (Reason: Nausea) RF: 0 metoclopramide HCl 5 mg tablet 5 mg PO BID RF: 0 ergocalciferol (vitamin D2) 1,250 mcg (50,000 unit) capsule 50,000 unit PO WK RF: 0 lactulose 10 gram/15 mL solution 15 ml PO BID PRN (Reason: Constipation) RF: 0 tramadol 50 mg tablet 50 mg PO Q8H PRN (Reason: Severe Pain (Scale Score 7-10)) RF: 0 lamotrigine 100 mg Tablet 100 mg PO DAILY RF: 0 Discontinued acetaminophen [Tylenol] 325 mg Tablet 325 mg PO Q4H PRN (Reason: Pain) RF: 0 Lantus Solostar U-100 Insulin 100 unit/mL (3 mL) insulin pen 13 unit SUBCUT HS RF: 0 Discharge Orders: Discharge Order (Routine); Ordered 02/01/20 Ordered By: Juve Berumen Admission Data Admit Date/Time: 01/29/20 14:26 Attending Provider: Juve Berumen Admit Provider: Sujit Musa Primary Care Provider: Mitchel Santo Other Providers: Stanley Donaldson ; Sujit Musa ; [place] Other Interventions: Discharge Summary Assessment (RN) Last Done: 02/01/20 11:45
== END 2020-02-01 13:17 | disposition home or self-care (01) ==
LOC: ED 11:30 → 2N 14:26 → INTOOBSV 14:26 → SUATTDRO 14:26 → 2N 15:47

== ENCOUNTER 2020-02-20 10:30 | Observation (INO) ==
[2020-02-20] MEDS ORDERED: SODIUM CHLORIDE 0.9% 1000ML 1,000 ML IV ONE (11:44)
[2020-02-20] MEDS ORDERED: ONDANSETRON INJ 2 MG/ML 2 ML VIAL IV STA ×2 (11:44→15:07)
--- NOTE | 2020-02-20 12:28 | XRay Report ---
XR chest 1V portable CLINICAL HISTORY: SEPSIS COMPARISON STUDY: No previous studies for comparison. FINDINGS: The heart is normal in size. There is no failure. There is no focal pulmonary consolidation . There are no pleural effusions. Radiopaque densities project in the left shoulder are felt to be ex traneous to the patient.[ IMPRESSION: No active disease in the chest. ACT 112: Negative or not required by law. Electronically signed by: Denis Vargas M.D. 02/20/2020 12:27 PM
[2020-02-20 12:44] LABS: Basophils # (auto) 0.03 K/uL (0-0.2); Basophils % (auto) 0.4 %; Eosinophils # (auto) 0.06 K/uL (0-0.5); Eosinophils % (auto) 0.8 %; Hematocrit (blood only) 35.6 % (37-47); Hemoglobin 11.8 g/dL (12.0-16.0); Immature Granulocytes # (auto) 0.01 K/uL (0.00-0.02); Immature Granulocytes % (auto) 0.1 %; Lymphocytes # (auto) 2.51 K/uL (1.2-3.4); Lymphocytes % (auto) 32.2 %; Mean Corpuscular Hemoglobin 30.4 pg (25-34); Mean Corpuscular Hgb Conc 33.1 g/dL (32-36); Mean Corpuscular Volume 91.8 fL (80-100); Monocytes # (auto) 0.63 K/uL (0.11-0.59); Monocytes % (auto) 8.1 %; Neutrophils # (auto) 4.55 K/uL (1.4-6.5); Neutrophils % (auto) 58.4 %; Platelet Count 361 K/uL (130-400); RDW Coefficient of Variation 14.7 % (11.5-14.5); RDW Standard Deviation 48.9 fL (36.4-46.3); Red Blood Count 3.88 M/uL (4.2-5.4); White Blood Count 7.79 K/uL (4.8-10.8)
[2020-02-20 12:46] LABS: Base Excess VBG -2.1 mEq/L; HCO3 VBG 23 mmol/L; PCO2 VBG 41 mmHg (38-50); PO2 VBG 37 mmHg; pH VBG 7.37 (7.36-7.41)
[2020-02-20 12:50] LABS: Oxygen Saturation VBG < 60.0 %
[2020-02-20 12:54] LABS: INR 1.1 (0.9-1.1); Partial Thromboplastin Time 26.8 Seconds (21.0-31.0); Prothrombin Time 11.3 Seconds (9.0-12.0)
--- NOTE | 2020-02-20 12:59 | Emergency Department Note ---
Impression & Plan Acute hyperglycemia, Abdominal pain, Acute hyponatremia, Renal failure (ARF), acute on chronic ED Provider Note NAME: KELLEN BECKER AGE: 49 SEX: F : 1970 ARRIVES VIA: Walk-In INFORMANT: Patient, the patient's significant other ED PROVIDER(S): Denton Mancini DO CHIEF COMPLAINT: Elevated blood sugar HPI: The patient is a 49-year-old female who presented to the emergency department for an evaluation of nausea vomiting and elevated blood sugar. The patient's significant other states that she had a seizure prior to arrival. She does have a history of seizures in the past. He states that she has been compliant with her medications but has had nausea and vomiting over the last few days. She also describes upper abdominal pain. The patient states that she has had similar symptoms in the past. She was admitted recently to [facility]. She has a history of renal failure and takes dialysis. She is not had dialysis for the last few days and was due for dialysis today. She denies having any fever but subjectively has felt warm. She complains of headache as well as abdominal pain right now she denies having any lower extremity swelling greater than usual. She states her symptoms are moderate at this time. ROS: See above HPI for pertinent positives & negatives. A total of 10 systems reviewed and were otherwise negative. PAST MEDICAL HISTORY: See Below PAST SURGICAL HISTORY: See Below FAMILY HISTORY: See Below SOCIAL HISTORY: See Below HOME MEDICATIONS: See Below ALLERGIES: See Below VITALS: See Below PHYSICAL EXAMINATION: GENERAL: Patient is awake alert in no acute distress patient is resting comfortably and showing no signs of anxiety EYES: The conjunctivae are clear. The pupils are round and reactive. EARS, NOSE, MOUTH AND THROAT: The nose is without any evidence of any deformity. Mucous membranes are dry. NECK: The neck is nontender and supple. RESPIRATORY: Normal respiratory effort is noted there is no evidence of wheezing rhonchi or rales CARDIOVASCULAR: Tachycardic rate with regular rhythm was noted. There was no definite murmur. GASTROINTESTINAL: The abdomen is moderately distended and diffusely tender. There is no guarding rigidity. MUSCULOSKELETAL/EXTREMITIES: There is no evidence of gross deformity full range of motion is noted in the hips and shoulders. SKIN: There is no obvious evidence of any rash. Trace pedal edema was noted bilaterally. NEUROLOGIC: Patient is awake alert and oriented x3 strength is symmetric patellar reflexes are 2+ bilaterally MEDICAL DECISION MAKING: The patient is a 49-year-old female who presented to the emergency department with multiple complaints. She presented to emergency department with her significant other. She had diffuse abdominal pain and was not eating or drinking as much. She also has a history of renal failure and receives dialysis. She was treated with pain medication in the emergency department. She was also treated with IV fluids and IV insulin. I discussed the patient's laboratory and radiographic studies with her. CT the abdomen and pelvis did not appear to show any acute intra-abdominal process. I am unsure if this is secondary to her elevated blood sugar but she was also noted to have hyponatremia. The patient was still unable to have significant relief of her symptoms. [facility] Nursing notes reviewed. Prior medical records reviewed Vital Signs: reviewed and remarkable for elevated blood pressure. Differential diagnosis: Gastroenteritis, food borne illness, infections, appendicitis, diverticulitis, inflammatory bowel disease, obstruction, GI bleed, biliary pathology, volvulus, as well as other pathologies. ER treatment provided: See below Diagnostics interpreted by me: ECG: EKG was obtained in the emergency department. My interpretation is normal sinus rhythm at [address] depressions with poor R wave progression was noted. This was compared to a tracing from January 282019. No significant changes were noted. Cardiac Monitoring: An order was placed for continuous cardiac monitoring. The monitor shows a rate of 92 bpm with sinus rhythm. Laboratory studies: As stated above and show below. Imaging studies: See below Consultation(s): 1615: I discussed this case with Davy Metzger who was on-call for the [facility] hospitalist group. 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 history of CVA in 2018 Residual R sided weakness Depression Diabetic gastroparesis Diastolic heart failure DM type 1 (diabetes mellitus, type 1) ESRD (end stage renal disease) on dialysis GERD (gastroesophageal reflux disease) History of GI bleed Hyperlipidemia Hypertension Seizure Surgical History Hx of appendectomy Hx of cholecystectomy Hx of tubal ligation Family History Mother Coronary heart disease Hypertension Father Coronary heart disease Other No significant family history Social History Tobacco Type: Cigarettes Second Hand Exposure: No; Hx Alcohol Use: No Hx Substance Use: No Preferred Language: Upper Sorbian Communication Ability: Effective Radio Board Operator Announcer Required: No Beliefs That Will Affect Care: None marital status: Single Current Living Situation: Spouse current occupational status: unemployed Other Information That Helps Us Care for You: No Feels Safe at Home: Yes Safety Concerns: Feels Safe At This Time Allergies Allergies Allergy/AdvReac Type Severity Reaction Status Date / Time Fish Containing Products Allergy Mild Hives Verified 02/20/20 16:04 latex Allergy Mild hives Verified 02/20/20 16:04 shellfish derived Allergy Unknown Verified 02/20/20 16:04 Home Meds Home Medications Medication Instructions Recorded Confirmed Weed Caps 1 cap PO QPM 12/19/18 02/20/20 bisacodyl 10 mg PO DAILY PRN 12/19/18 02/20/20 carvedilol [Coreg] 12.5 mg PO BIDM 12/19/18 02/20/20 multivitamin 1 tab PO QAM 12/19/18 02/20/20 pantoprazole [Protonix] 40 mg PO QAM 12/19/18 02/20/20 polyethylene glycol 3350 [Miralax] 17 g PO BID PRN 12/19/18 02/20/20 aripiprazole [Abilify] 5 mg PO HS 05/20/19 02/20/20 levetiracetam [Keppra] 500 mg PO BID 06/20/19 02/20/20 atorvastatin [Lipitor] 40 mg PO HS 08/01/19 02/20/20 sertraline [Zoloft] 150 mg PO HS 08/01/19 02/20/20 calcium acetate(phosphat bind) 667 mg PO TIDM 11/09/19 02/20/20 insulin aspart U-100 [Novolog 10 unit SUBCUT TIDM 11/09/19 02/20/20 U-100 Insulin aspart] Emileeo Ellipta 1 inh INHALATION DAILY 01/03/20 02/20/20 lorazepam 0.5 mg PO BID PRN 01/03/20 02/20/20 ergocalciferol (vitamin D2) 50,000 unit PO WK 01/29/20 02/20/20 gabapentin 100 mg PO DAILY 01/29/20 02/20/20 lactulose 15 ml PO BID PRN 01/29/20 02/20/20 melatonin 3 mg PO HS 01/29/20 02/20/20 metoclopramide HCl 5 mg PO BID 01/29/20 02/20/20 ondansetron HCl 4 mg PO Q8H PRN 01/29/20 02/20/20 sennosides [senna] 8.6 mg PO DAILY 01/29/20 02/20/20 lamotrigine 100 mg PO DAILY 01/30/20 02/20/20 acetaminophen [Tylenol] 325 mg PO Q4 PRN 02/20/20 02/20/20 albuterol sulfate 2 inh INHALATION QID PRN 02/20/20 02/20/20 buspirone 5 mg PO TID 02/20/20 02/20/20 docusate sodium 100 mg PO DAILY 02/20/20 02/20/20 hydroxyzine HCl 25 mg PO TID PRN 02/20/20 02/20/20 insulin glargine [Lantus Solostar 20 unit SUBCUT PM 02/20/20 02/20/20 U-100 Insulin] temazepam [Restoril] 15 mg PO HS 02/20/20 02/20/20 tramadol [Ultram] 50 mg PO Q8 PRN 02/20/20 02/20/20 trazodone 75 mg PO HS PRN 02/20/20 02/20/20 Previous Rx's Medication Instructions Recorded Ketone Urine Test #100 ea 01/06/20 Linzess 145 mcg PO QAM #30 cap 01/07/20 Results & Data (ED) Vital Signs Vital Signs - 24 hr 02/20/20 11:05 02/20/20 11:15 02/20/20 11:31 Temperature 37.1 C Temperature Source Oral Pulse Rate 103 H 87 86 Pulse Rate from SpO2 Sensor 86 Pulse Rhythm Regular Respiratory Rate 18 20 24 Respiratory Effort / Characteristics Non-Labored Spontaneous Blood Pressure 161/72 H 183/70 H Blood Pressure Mean 101 120 Pulse Oximetry 96 100 100 Oxygen Delivery Method Room Air Sepsis Recent Fever Within 48 Hours No Sepsis New/Unexplained Change in Mental Status No Sepsis Action Taken by Nursing No Action Required 02/20/20 11:36 02/20/20 12:00 02/20/20 12:15 Temperature Temperature Source Pulse Rate 85 85 88 Pulse Rate from SpO2 Sensor 76 86 88 Pulse Rhythm Respiratory Rate 24 22 20 Respiratory Effort / Characteristics Blood Pressure Blood Pressure Mean Pulse Oximetry 99 99 100 Oxygen Delivery Method Sepsis Recent Fever Within 48 Hours Sepsis New/Unexplained Change in Mental Status Sepsis Action Taken by Nursing 02/20/20 12:30 02/20/20 12:45 02/20/20 13:12 Temperature Temperature Source Pulse Rate 86 86 87 Pulse Rate from SpO2 Sensor 86 86 87 Pulse Rhythm Respiratory Rate 21 21 26 H Respiratory Effort / Characteristics Blood Pressure 173/77 H 171/84 H Blood Pressure Mean 109 113 Pulse Oximetry 100 99 98 Oxygen Delivery Method Sepsis Recent Fever Within 48 Hours Sepsis New/Unexplained Change in Mental Status Sepsis Action Taken by Nursing 02/20/20 13:15 02/20/20 13:30 02/20/20 13:45 Temperature Temperature Source Pulse Rate 86 87 86 Pulse Rate from SpO2 Sensor 86 87 86 Pulse Rhythm Respiratory Rate 19 18 17 Respiratory Effort / Characteristics Blood Pressure 177/77 H Blood Pressure Mean 110 Pulse Oximetry 100 100 98 Oxygen Delivery Method Sepsis Recent Fever Within 48 Hours Sepsis New/Unexplained Change in Mental Status Sepsis Action Taken by Nursing 02/20/20 14:00 02/20/20 14:15 02/20/20 14:30 Temperature Temperature Source Pulse Rate 91 H 86 84 Pulse Rate from SpO2 Sensor 91 H 87 84 Pulse Rhythm Respiratory Rate 22 24 24 Respiratory Effort / Characteristics Blood Pressure 171/77 H 168/77 H Blood Pressure Mean 108 107 Pulse Oximetry 98 99 98 Oxygen Delivery Method Sepsis Recent Fever Within 48 Hours Sepsis New/Unexplained Change in Mental Status Sepsis Action Taken by Nursing 02/20/20 14:45 02/20/20 15:00 02/20/20 15:15 Temperature Temperature Source Pulse Rate 86 86 86 Pulse Rate from SpO2 Sensor 86 86 86 Pulse Rhythm Respiratory Rate 20 24 24 Respiratory Effort / Characteristics Blood Pressure Blood Pressure Mean Pulse Oximetry 98 98 97 Oxygen Delivery Method Sepsis Recent Fever Within 48 Hours Sepsis New/Unexplained Change in Mental Status Sepsis Action Taken by Nursing 02/20/20 15:30 02/20/20 15:31 02/20/20 15:45 Temperature Temperature Source Pulse Rate 86 85 87 Pulse Rate from SpO2 Sensor 86 85 87 Pulse Rhythm Respiratory Rate 19 16 23 Respiratory Effort / Characteristics Blood Pressure 178/87 H Blood Pressure Mean 127 Pulse Oximetry 97 95 95 Oxygen Delivery Method Sepsis Recent Fever Within 48 Hours Sepsis New/Unexplained Change in Mental Status Sepsis Action Taken by Nursing 02/20/20 16:00 02/20/20 16:01 Temperature Temperature Source Pulse Rate 87 87 Pulse Rate from SpO2 Sensor 87 87 Pulse Rhythm Respiratory Rate 22 17 Respiratory Effort / Characteristics Blood Pressure 168/84 H Blood Pressure Mean 137 Pulse Oximetry 96 96 Oxygen Delivery Method Sepsis Recent Fever Within 48 Hours Sepsis New/Unexplained Change in Mental Status Sepsis Action Taken by [facility] Medications Current Medication List: was personally reviewed by me Laboratory Data Attestation: I reviewed the patient's lab results. Result diagrams: 02/20/20 12:28 02/20/20 12:28 Lab Results 02/20/20 02/20/20 02/20/20 Range/Units 11:27 12:28 12:28 WBC 7.79 (4.8-10.8) K/uL RBC 3.88 L (4.2-5.4) M/uL Hgb 11.8 L (12.0-16.0) g/dL Hct 35.6 L (37-47) % MCV 91.8 (80-100) fL MCH 30.4 (25-34) pg MCHC 33.1 (32-36) g/dL RDW Std Deviation 48.9 H (36.4-46.3) fL RDW Coeff of Lebron 14.7 H (11.5-14.5) % Plt Count 361 (130-400) K/uL MPV 10.0 (7.4-10.4) fL Immature Gran % (Auto) 0.1 % Neut % (Auto) 58.4 % Lymph % (Auto) 32.2 % Wilbarger % (Auto) 8.1 % Eos % (Auto) 0.8 % Baso % (Auto) 0.4 % Neut # (Auto) 4.55 (1.4-6.5) K/uL Lymph # (Auto) 2.51 (1.2-3.4) K/uL Wilbarger # (Auto) 0.63 H (0.11-0.59) K/uL Eos # (Auto) 0.06 (0-0.5) K/uL Baso # (Auto) 0.03 (0-0.2) K/uL Immature Gran # (Auto) 0.01 (0.00-0.02) K/uL PT (9.0-12.0) Seconds INR (0.9-1.1) APTT (21.0-31.0) Seconds PTT Ratio VBG pH (7.36-7.41) VBG pCO2 (38-50) mmHg VBG pO2 mmHg VBG HCO3 mmol/L VBG O2 Saturation % VBG Base Excess mEq/L Barometric Pressure mm/Hg Sodium 129 L (136-145) mmol/L Potassium 4.6 (3.5-5.1) mmol/L Chloride 87 L (98-107) mmol/L Carbon Dioxide 22 (21-32) mmol/L Anion Gap 19.0 H (3-11) BUN 66 H (7-18) mg/dl Creatinine 5.50 H* (0.6-1.2) mg/dl Est Cr Clr Drug Dosing 9.6 ml/min Est GFR ( Amer) 9.6 Est GFR (Non-Af Amer) 8.3 BUN/Creatinine Ratio 12.0 (10-20) Glucose 573 H* (70-99) mg/dl POC Glucose 486 H* (70-99) mg/dl Lactate (0.4-2.0) mmol/L Calcium 9.4 (8.5-10.1) mg/dl Magnesium 2.8 H (1.8-2.4) mg/dl Total Bilirubin 0.5 (0.2-1) mg/dl AST 13 L (15-37) U/L ALT 27 (12-78) U/L Alkaline Phosphatase 98 (45-117) U/L Troponin I < 0.015 (0-0.045) ng/ml Total Protein 7.7 (6.4-8.2) gm/dl Albumin 3.6 (3.4-5.0) gm/dl Globulin 4.1 H (2.5-4.0) gm/dl Albumin/Globulin Ratio 0.9 (0.9-2) Beta-Hydroxybutyric Acd 44.83 H (0.2-2.81) mg/dl Procalcitonin (0-0.5) ng/ml 02/20/20 02/20/20 02/20/20 Range/Units 12:28 12:28 12:28 WBC (4.8-10.8) K/uL RBC (4.2-5.4) M/uL Hgb (12.0-16.0) g/dL Hct (37-47) % MCV (80-100) fL MCH (25-34) pg MCHC (32-36) g/dL RDW Std Deviation (36.4-46.3) fL RDW Coeff of Lebron (11.5-14.5) % Plt Count (130-400) K/uL MPV (7.4-10.4) fL Immature Gran % (Auto) % Neut % (Auto) % Lymph % (Auto) % Wilbarger % (Auto) % Eos % (Auto) % Baso % (Auto) % Neut # (Auto) (1.4-6.5) K/uL Lymph # (Auto) (1.2-3.4) K/uL Wilbarger # (Auto) (0.11-0.59) K/uL Eos # (Auto) (0-0.5) K/uL Baso # (Auto) (0-0.2) K/uL Immature Gran # (Auto) (0.00-0.02) K/uL PT 11.3 (9.0-12.0) Seconds INR 1.1 (0.9-1.1) APTT 26.8 (21.0-31.0) Seconds PTT Ratio 1.0 VBG pH (7.36-7.41) VBG pCO2 (38-50) mmHg VBG pO2 mmHg VBG HCO3 mmol/L VBG O2 Saturation % VBG Base Excess mEq/L Barometric Pressure mm/Hg Sodium (136-145) mmol/L Potassium (3.5-5.1) mmol/L Chloride (98-107) mmol/L Carbon Dioxide (21-32) mmol/L Anion Gap (3-11) BUN (7-18) mg/dl Creatinine (0.6-1.2) mg/dl Est Cr Clr Drug Dosing ml/min Est GFR ( Amer) Est GFR (Non-Af Amer) BUN/Creatinine Ratio (10-20) Glucose (70-99) mg/dl POC Glucose (70-99) mg/dl Lactate 1.8 (0.4-2.0) mmol/L Calcium (8.5-10.1) mg/dl Magnesium (1.8-2.4) mg/dl Total Bilirubin (0.2-1) mg/dl AST (15-37) U/L ALT (12-78) U/L Alkaline Phosphatase (45-117) U/L Troponin I (0-0.045) ng/ml Total Protein (6.4-8.2) gm/dl Albumin (3.4-5.0) gm/dl Globulin (2.5-4.0) gm/dl Albumin/Globulin Ratio (0.9-2) Beta-Hydroxybutyric Acd (0.2-2.81) mg/dl Procalcitonin 0.32 (0-0.5) ng/ml 02/20/20 02/20/20 02/20/20 Range/Units 12:28 15:04 15:06 WBC (4.8-10.8) K/uL RBC (4.2-5.4) M/uL Hgb (12.0-16.0) g/dL Hct (37-47) % MCV (80-100) fL MCH (25-34) pg MCHC (32-36) g/dL RDW Std Deviation (36.4-46.3) fL RDW Coeff of Lebron (11.5-14.5) % Plt Count (130-400) K/uL MPV (7.4-10.4) fL Immature Gran % (Auto) % Neut % (Auto) % Lymph % (Auto) % Wilbarger % (Auto) % Eos % (Auto) % Baso % (Auto) % Neut # (Auto) (1.4-6.5) K/uL Lymph # (Auto) (1.2-3.4) K/uL Wilbarger # (Auto) (0.11-0.59) K/uL Eos # (Auto) (0-0.5) K/uL Baso # (Auto) (0-0.2) K/uL Immature Gran # (Auto) (0.00-0.02) K/uL PT (9.0-12.0) Seconds INR (0.9-1.1) APTT (21.0-31.0) Seconds PTT Ratio VBG pH 7.37 (7.36-7.41) VBG pCO2 41 (38-50) mmHg VBG pO2 37 mmHg VBG HCO3 23 mmol/L VBG O2 Saturation < 60.0 % VBG Base Excess -2.1 mEq/L Barometric Pressure 738.1 mm/Hg Sodium (136-145) mmol/L Potassium (3.5-5.1) mmol/L Chloride (98-107) mmol/L Carbon Dioxide (21-32) mmol/L Anion Gap (3-11) BUN (7-18) mg/dl Creatinine (0.6-1.2) mg/dl Est Cr Clr Drug Dosing ml/min Est GFR ( Amer) Est GFR (Non-Af Amer) BUN/Creatinine Ratio (10-20) Glucose (70-99) mg/dl POC Glucose 529 H* 534 H* (70-99) mg/dl Lactate (0.4-2.0) mmol/L Calcium (8.5-10.1) mg/dl Magnesium (1.8-2.4) mg/dl Total Bilirubin (0.2-1) mg/dl AST (15-37) U/L ALT (12-78) U/L Alkaline Phosphatase (45-117) U/L Troponin I (0-0.045) ng/ml Total Protein (6.4-8.2) gm/dl Albumin (3.4-5.0) gm/dl Globulin (2.5-4.0) gm/dl Albumin/Globulin Ratio (0.9-2) Beta-Hydroxybutyric Acd (0.2-2.81) mg/dl Procalcitonin (0-0.5) ng/ml Administered Medications Fentanyl Citrate (Fentanyl Citrate 100 Mcg/2 Ml Vial) 50 mcg IV Q15M PRN PRN Reason: Pain Stop: 03/05/20 15:06 Last Admin: 02/20/20 15:25 Dose: 50 mcg Documented by: [id number] Discontinued Medications Sodium Chloride (Nss 1000ml) 1,000 mls @ 999 mls/hr IV .Q1H1M ONE Stop: 02/20/20 12:44 Last Infusion: 02/20/20 14:18 Dose: 0 mls/hr Documented by: [id number] Admin: 02/20/20 12:26 Dose: 999 mls/hr Documented by: [id number] Insulin Human Regular (Novolin-R Insulin Per Unit Charge) 6 units IV NOW STA Stop: 02/20/20 15:06 Last Admin: 02/20/20 15:25 Dose: 6 units Documented by: [id number] Cosigned by: [id number] Ondansetron HCl (Ondansetron Inj 2 Mg/Ml 2 Ml Vial) 4 mg IV NOW STA Stop: 02/20/20 11:45 Last Admin: 02/20/20 12:26 Dose: 4 mg Documented by: [id number] Ondansetron HCl (Ondansetron Inj 2 Mg/Ml 2 Ml Vial) 4 mg IV NOW STA Stop: 02/20/20 15:08 Last Admin: 02/20/20 15:25 Dose: 4 mg Documented by: [id number] Imaging Data Radiologist's Impression: CT SCAN OF THE ABDOMEN AND PELVIS WITHOUT CONTRAST CLINICAL HISTORY: Vomiting COMPARISON STUDY: 01/03/2020 TECHNIQUE: CT scan of the abdomen and pelvis was performed from the lung bases to the proximal femurs. Images are reviewed in the axial, sagittal, and coronal planes. IV contrast was not administered for this examination. A dose lowering technique was utilized adhering to the principles of ALARA. CT DOSE: FINDINGS: Lower chest: There is a small hiatal hernia. There are mild basilar atelectatic changes. Liver: The unenhanced liver is normal in size, contour, and attenuation. There is no intrahepatic biliary ductal dilatation. Gallbladder: Surgically absent Spleen: Normal in size and attenuation. Pancreas: Unremarkable. Adrenal glands: Unremarkable. Kidneys: There are bilateral renal calcifications, likely vascular. There is no significant hydronephrosis. No ureteral or bladder calculi are visualized. Bowel: There are no transition zones to indicate bowel obstruction. There is no evidence of acute diverticulitis. By history the appendix is surgically absent. There is borderline colonic wall thickening. Peritoneum: There is no intraperitoneal free air or abdominal ascites. Vasculature: The abdominal aorta is normal in course and caliber. Adenopathy: None. Pelvic viscera: There is an indwelling IUD. There is a right adnexal cyst likely representing an ovarian follicle Skeletal structures: No destructive osseous lesions are seen. There is an L5-S1 disc osteophyte complex IMPRESSION: 1. No evidence of bowel obstruction. No evidence of free air 2. No evidence of acute diverticulitis 3. Borderline colonic wall thickening 4. Surgically absent gallbladder appendix 5. No renal, ureteral, or bladder calculi identified ACT 112: Negative or not required by law. Electronically signed by: Denis Vargas M.D. 02/20/2020 1:18 PM Dictated: 02/20/20 1313 Transcribed: 02/20/[address] head/brain wo con CLINICAL HISTORY: Seizure COMPARISON STUDY: 01/29/2020 TECHNIQUE: Axial CT of the brain is performed from the vertex to the skull base. IV contrast was not administered for this examination. A dose lowering technique was utilized adhering to the principles of ALARA. CT DOSE: 857.77 mGy.cm FINDINGS: No intra or extra-axial mass lesions are visualized. There is no CT evidence of acute cortical infarction. There is no evidence of midline shift. There is no acute hemorrhage. No calvarial fractures are visualized. There is an old infarct involving the left basal ganglia/external capsule. There is mild compensatory dilatation of the left lateral ventricle. There is no evidence of acute sinusitis. There is a left ocular implant IMPRESSION: No acute intracranial findings ACT 112: Negative or not required by law. Electronically signed by: Denis Vargas M.D. 02/20/2020 1:12 PM Dictated: 02/20/20 1310 Transcribed: 02/20/20 1310 XR chest 1V portable CLINICAL HISTORY: SEPSIS COMPARISON STUDY: No previous studies for comparison. FINDINGS: The heart is normal in size. There is no failure. There is no focal pulmonary consolidation. There are no pleural effusions. Radiopaque densities project in the left shoulder are felt to be extraneous to the patient.[ IMPRESSION: No active disease in the chest. ACT 112: Negative or not required by law. Electronically signed by: Denis Vargas M.D. 02/20/2020 12:27 PM Dictated: 02/20/20 1226 Transcribed: 02/20/20 1226 Blood Pressure Blood Pressure Findings: Elevated blood pressure Blood Pressure Disposition: further management by hospitalist Discharge Plan Visit Data Chief Complaint: Hyperglycemia Stated Complaint: HYPERGLYCEMIA,VOMITING ED Provider: Denton Mancini Discharge Problem: Acute hyperglycemia, Abdominal pain, Acute hyponatremia, Renal failure (ARF), acute on chronic Patient Disposition: Being Evaluated by Hospitalist Condition: Good Forms Stand Alone Forms: My [facility] Prescriptions Prescriptions: No Action aripiprazole [Abilify] 5 mg tablet 5 mg PO HS RF: 0 atorvastatin [Lipitor] 40 mg tablet 40 mg PO HS RF: 0 sertraline [Zoloft] 100 mg tablet 150 mg PO HS RF: 0 insulin aspart U-100 [Novolog U-100 Insulin aspart] 100 unit/mL solution 10 unit subcut TIDM RF: 0 calcium acetate(phosphat bind) 667 mg capsule 667 mg PO TIDM RF: 0 tramadol [Ultram] 50 mg tablet 50 mg PO Q8 PRN (Reason: Pain) RF: 0 trazodone 150 mg tablet 75 mg PO HS PRN (Reason: Sleep) RF: 0 docusate sodium 100 mg Tablet 100 mg PO DAILY RF: 0 acetaminophen [Tylenol] 325 mg Capsule 325 mg PO Q4 PRN (Reason: Pain) RF: 0 Lantus Solostar U-100 Insulin 100 unit/mL (3 mL) insulin pen 20 unit subcut PM RF: 0 buspirone 5 mg tablet 5 mg PO TID RF: 0 temazepam [Restoril] 15 mg capsule 15 mg PO HS RF: 0 hydroxyzine HCl 25 mg tablet 25 mg PO TID PRN (Reason: Anxiety) RF: 0 albuterol sulfate 90 mcg/actuation Hfa Aerosol Inhaler 2 inh INHALATION QID PRN (Reason: Shortness Of Breath) RF: 0 multivitamin Tablet 1 tab PO QAM RF: 0 carvedilol [Coreg] 25 mg Tablet 12.5 mg PO BIDM RF: 0 polyethylene glycol 3350 [Miralax] 17 gram Powder In Packet 17 g PO BID PRN (Reason: Constipation) RF: 0 pantoprazole [Protonix] 40 mg Tablet,Delayed Release (Dr/Ec) 40 mg PO QAM RF: 0 Weed Caps 1 mg Capsule 1 cap PO QPM RF: 0 bisacodyl 5 mg Tablet 10 mg PO DAILY PRN (Reason: Constipation) RF: 0 levetiracetam [Keppra] 500 mg tablet 500 mg PO BID RF: 0 lorazepam 0.5 mg Tablet 0.5 mg PO BID PRN (Reason: Anxiety) RF: 0 Breo Ellipta 100-25 mcg/dose blister with device 1 inh INHALATION DAILY RF: 0 (DME) Ketone Urine Test Strip See Rx Instructions .ROUTE .MEDSUPPLY Qty: 100 RF: 1 Linzess 145 mcg capsule 145 mcg PO QAM Qty: 30 RF: 1 melatonin 3 mg Tablet 3 mg PO HS RF: 0 gabapentin 100 mg capsule 100 mg PO DAILY RF: 0 sennosides [senna] 8.6 mg tablet 8.6 mg PO DAILY RF: 0 ondansetron HCl 4 mg tablet 4 mg PO Q8H PRN (Reason: Nausea) RF: 0 metoclopramide HCl 5 mg tablet 5 mg PO BID RF: 0 ergocalciferol (vitamin D2) 1,250 mcg (50,000 unit) capsule 50,000 unit PO WK RF: 0 lactulose 10 gram/15 mL solution 15 ml PO BID PRN (Reason: Constipation) RF: 0 lamotrigine 100 mg Tablet 100 mg PO DAILY RF: 0 Referrals Referrals: Mitchel Santo MD [Primary Care Provider] - Discharge Problem: Abdominal pain Qualifiers: Abdominal location: generalized Qualified Code(s): R10.84 - Generalized abdominal pain Renal failure (ARF), acute on chronic Qualifiers: Acute renal failure type: unspecified Chronic kidney disease stage: on chronic dialysis Qualified Code(s): N17.9 - Acute kidney failure, unspecified
--- NOTE | 2020-02-20 13:14 | CT Scan Report ---
CT head/brain wo con CLINICAL HISTORY: Seizure COMPARISON STUDY: 01/29/2020 TECHNIQUE: Axial CT of the brain is performed from the vertex to the skull base. IV contrast was not administered for this examination. A dose lowering technique was utilized adhering to the principles of ALARA. CT DOSE: 857.77 mGy.cm FINDINGS: No intra or extra-axial mass lesions are visualized. There is no CT evidence of acute cortical infarc tion. There is no evidence of midline shift. There is no acute hemorrhage. No calvarial fractures ar e visualized. There is an old infarct involving the left basal ganglia/external capsule. There is mild compensatory dilatation of the left lateral ventricle. There is no evidence of acute sinusitis. There is a left ocular implant IMPRESSION: No acute intracranial findings ACT 112: Negative or not required by law. Electronically signed by: Denis Vargas M.D. 02/20/2020 1:12 PM
--- NOTE | 2020-02-20 13:19 | CT Scan Report ---
CT SCAN OF THE ABDOMEN AND PELVIS WITHOUT CONTRAST CLINICAL HISTORY: Vomiting COMPARISON STUDY: 01/03/2020 TECHNIQUE: CT scan of the abdomen and pelvis was performed from the lung bases to the proximal femurs . Images are reviewed in the axial, sagittal, and coronal planes. IV contrast was not administered fo r this examination. A dose lowering technique was utilized adhering to the principles of ALARA. CT DOSE: FINDINGS: Lower chest: There is a small hiatal hernia. There are mild basilar atelectatic changes. Liver: The unenhanced liver is normal in size, contour, and attenuation. There is no intrahepatic jasson iary ductal dilatation. Gallbladder: Surgically absent Spleen: Normal in size and attenuation. Pancreas: Unremarkable. Adrenal glands: Unremarkable. Kidneys: There are bilateral renal calcifications, likely vascular. There is no significant hydroneph rosis. No ureteral or bladder calculi are visualized. Bowel: There are no transition zones to indicate bowel obstruction. There is no evidence of acute div erticulitis. By history the appendix is surgically absent. There is borderline colonic wall thickenin g. Peritoneum: There is no intraperitoneal free air or abdominal ascites. Vasculature: The abdominal aorta is normal in course and caliber. Adenopathy: None. Pelvic viscera: There is an indwelling IUD. There is a right adnexal cyst likely representing an ovar joao follicle Skeletal structures: No destructive osseous lesions are seen. There is an L5-S1 disc osteophyte compl ex IMPRESSION: 1. No evidence of bowel obstruction. No evidence of free air 2. No evidence of acute diverticulitis 3. Borderline colonic wall thickening 4. Surgically absent gallbladder appendix 5. No renal, ureteral, or bladder calculi identified ACT 112: Negative or not required by law. Electronically signed by: Denis Vargas M.D. 02/20/2020 1:18 PM
[2020-02-20 13:43] LABS: Alanine Aminotransferase 27 U/L (12-78); Albumin Globulin Ratio 0.9 (0.9-2); Albumin Level 3.6 gm/dl (3.4-5.0); Alkaline Phosphatase 98 U/L (45-117); Aspartate Aminotransferase 13 U/L (15-37); Beta-Hydroxybutyrate 44.83 mg/dl (0.2-2.81); Bilirubin,Total 0.5 mg/dl (0.2-1); Blood Urea Nitrogen 66 mg/dl (7-18); Calcium 9.4 mg/dl (8.5-10.1); Carbon Dioxide 22 mmol/L (21-32); Chloride 87 mmol/L (98-107); Creatinine Clr Calc Pharmacy 9.6 ml/min; Est GFR (African American) 9.6; Est GFR (Non-African American) 8.3; Globulin 4.1 gm/dl (2.5-4.0); Glucose 573 mg/dl (70-99); Magnesium 2.8 mg/dl (1.8-2.4); Potassium 4.6 mmol/L (3.5-5.1); Sodium 129 mmol/L (136-145); Total Protein 7.7 gm/dl (6.4-8.2); Troponin I < 0.015 ng/ml (0-0.045)
[2020-02-20] MEDS ORDERED: NovoLIN-R INSULIN PER UNIT CHARGE IV STA (15:05)
[2020-02-20] MEDS ORDERED: fentaNYL citrate 100 MCG/2 ML VIAL IV PRN (15:07)
[2020-02-20] MEDS ORDERED: ACETAMINOPHEN 325 MG TAB PO PRN (18:05)
[2020-02-20] MEDS ORDERED: POLYETHYLENE (MIRALAX) 17 GM PACK PO PRN (18:05)
--- NOTE | 2020-02-20 18:16 | History & Physical Report ---
Date of Service February 20, 2020 Assessment & Plan (1) Hyperglycemia due to type 1 diabetes mellitus: (2) Acute hyperglycemia: - BSG in 500-600s -Unclear if she is injecting insulin correctly -Patient boyfriend reportedly helps with injections/questionable if patient has some scar tissue and low absorption of insulin/or incorrect technique -We will consult diabetic education for technique review -Glycemic pharmacist for hyperglycemia management (3) Abdominal pain: -Patient presented with generalized abdominal pain, nonspecific, nausea and vomiting -Likely secondary to hyperglycemia -CT abdomen pelvis unremarkable -No seems to be better-controlled (4) Acute hyponatremia: -Likely in the setting of hyperglycemia -Continue to closely monitor -Should resolve with hypoglycemia treatment (5) CKD (chronic kidney disease) stage V requiring chronic dialysis: -Nephrology consulted for dialysis need -His last emesis was on , she is due for dialysis today however potassium and volume status is acceptable at this time -We plan for next dialysis on Saturday or Saturday (6) Depression: - continue home medications - cont. to monitor (7) Seizure: - hx of seizure disorder - cont. home Keppra DVT ppx: SCDs Code: Full History of Present Illness Chief Complaint: Hyperglycemia, nausea and vomiting Primary Care Provider: Mitchel Santo MD This is a complicated 49 y/o female with a PMH of type 1 DM, ESRD on HD, chronic diastolic CHF, prior CVAs, COPD, CAD, GERD, gastroparesis, chronic constipation, HTN, FADY, dyslipidemia, prior GIB, seizure disorder, and malnutrition who presents with hyperglycemia. She has noticed that her blood sugars were in the 600s, and she has been vomiting all day yesterday. Her boyfriend is at the bedside, and states that he helps her to inject insulin and reports that her blood sugar levels were up and down and they were not controlled despite insulin injections. Patient presented to ED with hyponatremia, in the setting of hyperglycemia, with blood glucose levels in 500s. She presented to [facility] on Saturday02/17/20 with chest pain. At that time work-up was negative. She also mentioned to ER physician that she gets anxious and gets chest pain when she thinks about her daughter because she is missing her daughter. Patient was recently discharged from our hospital ([facility]), patient and her boyfriend state that at that time she was feeling well. Patient's boyfriend says that patient is under a lot of stress (because of her missing her children ) and he believes that that is why her blood sugar level is not well controlled. Denies that she has been confused at this time. Also denies any history of infectious process recently, such as fevers, chills, etc. , during last admission patient received IV antibiotics. Blood cultures were obtained in the ED though. Urinalysis did not show nitrates, leukoesterase, or bacteria. Patient also received 1 L of normal saline, and 6 units of IV insulin, Zofran and fentanyl. She presented with abdominal pain discomfort and nausea, therefore CT abdomen pelvis was done in the ED, which was unremarkable. Allergies Allergy/AdvReac Type Severity Reaction Status Date / Time Fish Containing Products Allergy Mild Hives Verified 02/20/20 16:04 latex Allergy Mild hives Verified 02/20/20 16:04 shellfish derived Allergy Unknown Verified 02/20/20 16:04 Home Medications Home Medications Medication Instructions Recorded Confirmed Type Callender Caps 1 cap PO QPM 12/19/18 02/20/20 History bisacodyl 10 mg PO DAILY PRN 12/19/18 02/20/20 History carvedilol [Coreg] 12.5 mg PO BIDM 12/19/18 02/20/20 History multivitamin 1 tab PO QAM 12/19/18 02/20/20 History pantoprazole [Protonix] 40 mg PO QAM 12/19/18 02/20/20 History polyethylene glycol 3350 [Miralax] 17 g PO BID PRN 12/19/18 02/20/20 History aripiprazole [Abilify] 5 mg PO HS 05/20/19 02/20/20 History levetiracetam [Keppra] 500 mg PO BID 06/20/19 02/20/20 History atorvastatin [Lipitor] 40 mg PO HS 08/01/19 02/20/20 History sertraline [Zoloft] 150 mg PO HS 08/01/19 02/20/20 History calcium acetate(phosphat bind) 667 mg PO TIDM 11/09/19 02/20/20 History insulin aspart U-100 [Novolog 10 unit SUBCUT TIDM 11/09/19 02/20/20 History U-100 Insulin aspart] Breo Ellipta 1 inh INHALATION DAILY 01/03/20 02/20/20 History lorazepam 0.5 mg PO BID PRN 01/03/20 02/20/20 History Ketone Urine Test #100 ea 01/06/20 02/20/20 Rx Linzess 145 mcg PO QAM #30 cap 01/07/20 02/20/20 Rx ergocalciferol (vitamin D2) 50,000 unit PO WK 01/29/20 02/20/20 History gabapentin 100 mg PO DAILY 01/29/20 02/20/20 History lactulose 15 ml PO BID PRN 01/29/20 02/20/20 History melatonin 3 mg PO HS 01/29/20 02/20/20 History metoclopramide HCl 5 mg PO BID 01/29/20 02/20/20 History ondansetron HCl 4 mg PO Q8H PRN 01/29/20 02/20/20 History sennosides [senna] 8.6 mg PO DAILY 01/29/20 02/20/20 History lamotrigine 100 mg PO DAILY 01/30/20 02/20/20 History acetaminophen [Tylenol] 325 mg PO Q4 PRN 02/20/20 02/20/20 History albuterol sulfate 2 inh INHALATION QID PRN 02/20/20 02/20/20 History buspirone 5 mg PO TID 02/20/20 02/20/20 History docusate sodium 100 mg PO DAILY 02/20/20 02/20/20 History hydroxyzine HCl 25 mg PO TID PRN 02/20/20 02/20/20 History insulin glargine [Lantus Solostar 20 unit SUBCUT PM 02/20/20 02/20/20 History U-100 Insulin] temazepam [Restoril] 15 mg PO HS 02/20/20 02/20/20 History tramadol [Ultram] 50 mg PO Q8 PRN 02/20/20 02/20/20 History trazodone 75 mg PO HS PRN 02/20/20 02/20/20 History Past Med/Surg History Medical History Anemia due to chronic kidney disease Arteriovenous fistula for hemodialysis in place, primary Bipolar disorder CKD (chronic kidney disease) stage V requiring chronic dialysis Coronary artery disease "2016 - cardiac catheterization showing nonobstructive coronary disease Stress test 06/2017 - possible small area of ischemia in the anterior wall" CVA (cerebral vascular accident) 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 history of CVA in 2018 Residual R sided weakness Depression Diabetic gastroparesis Diastolic heart failure DM type 1 (diabetes mellitus, type 1) ESRD (end stage renal disease) on dialysis GERD (gastroesophageal reflux disease) History of GI bleed Hyperlipidemia Hypertension Seizure Surgical History Hx of appendectomy Hx of cholecystectomy Hx of tubal ligation Family History Mother Coronary heart disease Hypertension Father Coronary heart disease Other No significant family history Social History Smoking Status: Current every day smoker Tobacco Type: Cigarettes Second Hand Exposure: No; Do You Dip or Chew Tobacco: No; Tobacco Cessation Education Requested by Patient: No Hx Alcohol Use: No Hx Substance Use: No Preferred Language: Bolivian Communication Ability: Effective Erp Business Analyst Required: No Beliefs That Will Affect Care: None marital status: Single Current Living Situation: Spouse current occupational status: unemployed Other Information That Helps Us Care for You: No Feels Safe at Home: Yes Safety Concerns: Feels Safe At This Time Review of Systems Review of Systems: All systems reviewed & are unremarkable except as noted in HPI & below Constitutional: no fever and no chills Eyes: no problem reported Ear, Nose, Mouth, Throat: no problem reported Respiratory: no problem reported Cardiovascular: no chest pain and no palpitations Gastrointestinal: + abdominal pain (now improved), + nausea (now improved) and + vomiting (improved) Genitourinary: no dysuria Musculoskeletal: no problem reported Integumentary: no problem reported Neurologic: no problem reported Psychiatric: + anxiety Endocrine: + fatigue Hematologic / Lymphatic: no problem reported Allergy / Immunological: no problem reported Physical Exam Physical Exam: Constitutional: Middle-age female lying in bed, in no acute distress, but somewhat anxious Eyes: + anicteric sclerae ENMT: external ear and nose normal, oropharynx normal Neck: trachea midline Respiratory: normal respiratory effort, lungs clear to auscultation Auscultation: no rales, no rhonchi and no wheezes Cardiovascular: Rate/Rhythm: regular rate and regular rhythm , soft syst. murmur, Vessels: dorsalis pedis pulses present Extremities: no pedal edema Gastrointestinal (Abdomen): Inspection/Auscultation: normal bowel sounds; abdomen not distended Percussion/Palpation: abdomen soft, slightly tender, nondistended, + bowel sounds Musculoskeletal: Head/Neck/Chest: normocephalic, head atraumatic and neck supple Extremities: no cyanosis and no clubbing Skin: no rashes, warm and dry no jaundice RUE dialysis fistula with positive thrill Neurologic: moves all extremities; no focal motor deficits Speech / Cognition: normal speech Psychiatric: Orientation: alert and oriented, answering questions appropriately Results & Data Results & Data ([facility]) Vital Signs (Past 12 Hours) Vital Signs Temp Pulse Resp BP Pulse Ox 02/20/20 18:01 83 20 92 02/20/20 18:00 82 21 156/72 H 94 02/20/20 17:45 82 14 93 02/20/20 17:31 83 4 L 92 02/20/20 17:30 85 13 157/77 H 94 02/20/20 17:15 82 17 94 02/20/20 17:01 86 18 97 02/20/20 17:00 83 14 153/84 H 95 02/20/20 16:45 84 18 95 02/20/20 16:31 86 20 96 02/20/20 16:30 87 23 181/80 H 96 02/20/20 16:15 87 13 97 02/20/20 16:01 87 17 96 02/20/20 16:00 87 22 168/84 H 96 02/20/20 15:45 87 23 95 02/20/20 15:31 85 16 95 02/20/20 15:30 86 19 178/87 H 97 02/20/20 15:15 86 24 97 02/20/20 15:00 86 24 98 02/20/20 14:45 86 20 98 02/20/20 14:30 84 24 168/77 H 98 02/20/20 14:15 86 24 99 02/20/20 14:00 91 H 22 171/77 H 98 02/20/20 13:45 86 17 98 02/20/20 13:30 87 18 177/77 H 100 02/20/20 13:15 86 19 02/20/20 13:12 87 26 H 171/84 H 98 02/20/20 12:45 86 21 99 02/20/20 12:30 86 21 173/77 H 100 02/20/20 12:15 88 20 02/20/20 12:00 85 22 99 02/20/20 11:36 85 24 99 02/20/20 11:31 86 24 183/70 H 02/20/20 11:15 87 20 02/20/20 11:05 37.1 C 103 H 18 161/72 H 96 Laboratory Results 02/20/20 02/20/20 02/20/20 Range/Units 18:54 17:29 15:06 WBC (4.8-10.8) K/uL RBC (4.2-5.4) M/uL Hgb (12.0-16.0) g/dL Hct (37-47) % MCV (80-100) fL MCH (25-34) pg MCHC (32-36) g/dL RDW Std Deviation (36.4-46.3) fL RDW Coeff of Lebron (11.5-14.5) % Plt Count (130-400) K/uL MPV (7.4-10.4) fL Immature Gran % (Auto) % Neut % (Auto) % Lymph % (Auto) % [place] % (Auto) % Eos % (Auto) % Baso % (Auto) % Neut # (Auto) (1.4-6.5) K/uL Lymph # (Auto) (1.2-3.4) K/uL [place] # (Auto) (0.11-0.59) K/uL Eos # (Auto) (0-0.5) K/uL Baso # (Auto) (0-0.2) K/uL Immature Gran # (Auto) (0.00-0.02) K/uL PT (9.0-12.0) Seconds INR (0.9-1.1) APTT (21.0-31.0) Seconds PTT Ratio VBG pH (7.36-7.41) VBG pCO2 (38-50) mmHg VBG pO2 mmHg VBG HCO3 mmol/L VBG O2 Saturation % VBG Base Excess mEq/L Barometric Pressure mm/Hg Sodium (136-145) mmol/L Potassium (3.5-5.1) mmol/L Chloride (98-107) mmol/L Carbon Dioxide (21-32) mmol/L Anion Gap (3-11) BUN (7-18) mg/dl Creatinine (0.6-1.2) mg/dl Est Cr Clr Drug Dosing ml/min Est GFR ( Amer) Est GFR (Non-Af Amer) BUN/Creatinine Ratio (10-20) Glucose (70-99) mg/dl POC Glucose 343 H* 534 H* (70-99) mg/dl Lactate Pending (0.4-2.0) mmol/L Calcium (8.5-10.1) mg/dl Magnesium (1.8-2.4) mg/dl Total Bilirubin (0.2-1) mg/dl AST (15-37) U/L ALT (12-78) U/L Alkaline Phosphatase (45-117) U/L Troponin I (0-0.045) ng/ml Total Protein (6.4-8.2) gm/dl Albumin (3.4-5.0) gm/dl Globulin (2.5-4.0) gm/dl Albumin/Globulin Ratio (0.9-2) Beta-Hydroxybutyric Acd (0.2-2.81) mg/dl Procalcitonin (0-0.5) ng/ml 02/20/20 02/20/20 02/20/20 Range/Units 15:04 12:28 12:28 WBC (4.8-10.8) K/uL RBC (4.2-5.4) M/uL Hgb (12.0-16.0) g/dL Hct (37-47) % MCV (80-100) fL MCH (25-34) pg MCHC (32-36) g/dL RDW Std Deviation (36.4-46.3) fL RDW Coeff of Lebron (11.5-14.5) % Plt Count (130-400) K/uL MPV (7.4-10.4) fL Immature Gran % (Auto) % Neut % (Auto) % Lymph % (Auto) % [place] % (Auto) % Eos % (Auto) % Baso % (Auto) % Neut # (Auto) (1.4-6.5) K/uL Lymph # (Auto) (1.2-3.4) K/uL [place] # (Auto) (0.11-0.59) K/uL Eos # (Auto) (0-0.5) K/uL Baso # (Auto) (0-0.2) K/uL Immature Gran # (Auto) (0.00-0.02) K/uL PT (9.0-12.0) Seconds INR (0.9-1.1) APTT (21.0-31.0) Seconds PTT Ratio VBG pH 7.37 (7.36-7.41) VBG pCO2 41 (38-50) mmHg VBG pO2 37 mmHg VBG HCO3 23 mmol/L VBG O2 Saturation < 60.0 % VBG Base Excess -2.1 mEq/L Barometric Pressure 738.1 mm/Hg Sodium (136-145) mmol/L Potassium (3.5-5.1) mmol/L Chloride (98-107) mmol/L Carbon Dioxide (21-32) mmol/L Anion Gap (3-11) BUN (7-18) mg/dl Creatinine (0.6-1.2) mg/dl Est Cr Clr Drug Dosing ml/min Est GFR ( Amer) Est GFR (Non-Af Amer) BUN/Creatinine Ratio (10-20) Glucose (70-99) mg/dl POC Glucose 529 H* (70-99) mg/dl Lactate (0.4-2.0) mmol/L Calcium (8.5-10.1) mg/dl Magnesium (1.8-2.4) mg/dl Total Bilirubin (0.2-1) mg/dl AST (15-37) U/L ALT (12-78) U/L Alkaline Phosphatase (45-117) U/L Troponin I (0-0.045) ng/ml Total Protein (6.4-8.2) gm/dl Albumin (3.4-5.0) gm/dl Globulin (2.5-4.0) gm/dl Albumin/Globulin Ratio (0.9-2) Beta-Hydroxybutyric Acd (0.2-2.81) mg/dl Procalcitonin 0.32 (0-0.5) ng/ml 02/20/20 02/20/20 02/20/20 Range/Units 12:28 12:28 12:28 WBC (4.8-10.8) K/uL RBC (4.2-5.4) M/uL Hgb (12.0-16.0) g/dL Hct (37-47) % MCV (80-100) fL MCH (25-34) pg MCHC (32-36) g/dL RDW Std Deviation (36.4-46.3) fL RDW Coeff of Lebron (11.5-14.5) % Plt Count (130-400) K/uL MPV (7.4-10.4) fL Immature Gran % (Auto) % Neut % (Auto) % Lymph % (Auto) % [place] % (Auto) % Eos % (Auto) % Baso % (Auto) % Neut # (Auto) (1.4-6.5) K/uL Lymph # (Auto) (1.2-3.4) K/uL [place] # (Auto) (0.11-0.59) K/uL Eos # (Auto) (0-0.5) K/uL Baso # (Auto) (0-0.2) K/uL Immature Gran # (Auto) (0.00-0.02) K/uL PT 11.3 (9.0-12.0) Seconds INR 1.1 (0.9-1.1) APTT 26.8 (21.0-31.0) Seconds PTT Ratio 1.0 VBG pH (7.36-7.41) VBG pCO2 (38-50) mmHg VBG pO2 mmHg VBG HCO3 mmol/L VBG O2 Saturation % VBG Base Excess mEq/L Barometric Pressure mm/Hg Sodium 129 L (136-145) mmol/L Potassium 4.6 (3.5-5.1) mmol/L Chloride 87 L (98-107) mmol/L Carbon Dioxide 22 (21-32) mmol/L Anion Gap 19.0 H (3-11) BUN 66 H (7-18) mg/dl Creatinine 5.50 H* (0.6-1.2) mg/dl Est Cr Clr Drug Dosing 9.6 ml/min Est GFR ( Amer) 9.6 Est GFR (Non-Af Amer) 8.3 BUN/Creatinine Ratio 12.0 (10-20) Glucose 573 H* (70-99) mg/dl POC Glucose (70-99) mg/dl Lactate 1.8 (0.4-2.0) mmol/L Calcium 9.4 (8.5-10.1) mg/dl Magnesium 2.8 H (1.8-2.4) mg/dl Total Bilirubin 0.5 (0.2-1) mg/dl AST 13 L (15-37) U/L ALT 27 (12-78) U/L Alkaline Phosphatase 98 (45-117) U/L Troponin I < 0.015 (0-0.045) ng/ml Total Protein 7.7 (6.4-8.2) gm/dl Albumin 3.6 (3.4-5.0) gm/dl Globulin 4.1 H (2.5-4.0) gm/dl Albumin/Globulin Ratio 0.9 (0.9-2) Beta-Hydroxybutyric Acd 44.83 H (0.2-2.81) mg/dl Procalcitonin (0-0.5) ng/ml 02/20/20 02/20/20 Range/Units 12:28 11:27 WBC 7.79 (4.8-10.8) K/uL RBC 3.88 L (4.2-5.4) M/uL Hgb 11.8 L (12.0-16.0) g/dL Hct 35.6 L (37-47) % MCV 91.8 (80-100) fL MCH 30.4 (25-34) pg MCHC 33.1 (32-36) g/dL RDW Std Deviation 48.9 H (36.4-46.3) fL RDW Coeff of Lebron 14.7 H (11.5-14.5) % Plt Count 361 (130-400) K/uL MPV 10.0 (7.4-10.4) fL Immature Gran % (Auto) 0.1 % Neut % (Auto) 58.4 % Lymph % (Auto) 32.2 % [place] % (Auto) 8.1 % Eos % (Auto) 0.8 % Baso % (Auto) 0.4 % Neut # (Auto) 4.55 (1.4-6.5) K/uL Lymph # (Auto) 2.51 (1.2-3.4) K/uL [place] # (Auto) 0.63 H (0.11-0.59) K/uL Eos # (Auto) 0.06 (0-0.5) K/uL Baso # (Auto) 0.03 (0-0.2) K/uL Immature Gran # (Auto) 0.01 (0.00-0.02) K/uL PT (9.0-12.0) Seconds INR (0.9-1.1) APTT (21.0-31.0) Seconds PTT Ratio VBG pH (7.36-7.41) VBG pCO2 (38-50) mmHg VBG pO2 mmHg VBG HCO3 mmol/L VBG O2 Saturation % VBG Base Excess mEq/L Barometric Pressure mm/Hg Sodium (136-145) mmol/L Potassium (3.5-5.1) mmol/L Chloride (98-107) mmol/L Carbon Dioxide (21-32) mmol/L Anion Gap (3-11) BUN (7-18) mg/dl Creatinine (0.6-1.2) mg/dl Est Cr Clr Drug Dosing ml/min Est GFR ( Amer) Est GFR (Non-Af Amer) BUN/Creatinine Ratio (10-20) Glucose (70-99) mg/dl POC Glucose 486 H* (70-99) mg/dl Lactate (0.4-2.0) mmol/L Calcium (8.5-10.1) mg/dl Magnesium (1.8-2.4) mg/dl Total Bilirubin (0.2-1) mg/dl AST (15-37) U/L ALT (12-78) U/L Alkaline Phosphatase (45-117) U/L Troponin I (0-0.045) ng/ml Total Protein (6.4-8.2) gm/dl Albumin (3.4-5.0) gm/dl Globulin (2.5-4.0) gm/dl Albumin/Globulin Ratio (0.9-2) Beta-Hydroxybutyric Acd (0.2-2.81) mg/dl Procalcitonin (0-0.5) ng/ml Diagnostic Findings CT Abdomen/pelvis 02/20/20 IMPRESSION: 1. No evidence of bowel obstruction. No evidence of free air 2. No evidence of acute diverticulitis 3. Borderline colonic wall thickening 4. Surgically absent gallbladder appendix 5. No renal, ureteral, or bladder calculi identified Medications Administered Current Inpatient Medications Acetaminophen (Acetaminophen 325 Mg Tab) 650 mg PO Q4H PRN PRN Reason: Pain or Fever Stop: 03/21/20 18:04 Albuterol (Albuterol Hfa 8 Gm Inhaler) 2 puffs INH QID PRN PRN Reason: Shortness Of Breath Stop: 03/21/20 19:34 Aripiprazole (Aripiprazole 5 Mg Tab) 5 mg PO HS SARAH Stop: 03/21/20 20:59 Last Admin: 02/20/20 20:43 Dose: 5 mg Documented by: Atorvastatin Calcium (Atorvastatin 40 Mg Tab) 40 mg PO HS SARAH Stop: 03/21/20 20:59 Last Admin: 02/20/20 20:42 Dose: 40 mg Documented by: Buspirone HCl (Buspirone 5 Mg Tab) 5 mg PO TID SARAH Stop: 03/21/20 20:59 Last Admin: 02/21/20 08:11 Dose: 5 mg Documented by: Calcium Acetate (Calcium Acetate 667 Mg Cap/Tab) 667 mg PO TIDM SARAH Stop: 03/22/20 07:59 Last Admin: 02/21/20 08:10 Dose: 667 mg Documented by: Carvedilol (Carvedilol 12.5 Mg Tab) 12.5 mg PO BIDM SARAH Stop: 03/22/20 03:39 Last Admin: 02/21/20 04:02 Dose: 12.5 mg Documented by: Dextrose (Dextrose 50% 50 Ml Syringe) 25 - 50 ml IV UD PRN; Protocol PRN Reason: Hypoglycemia Protocol Stop: 03/21/20 19:44 Last Admin: 02/21/20 03:33 Dose: 25 ml Documented by: Fluticasone/Vilanterol (Fluticasone/Vilanterol 100/25mcg 14 Puffs/Inhaler) 1 puffs INH DAILY SARAH Stop: 03/22/20 08:59 Last Admin: 02/21/20 08:11 Dose: 1 puffs Documented by: Glucagon (Glucagon For Inj 1 Mg Vial) 1 mg IM UD PRN; Protocol PRN Reason: Hypoglycemia Protocol Stop: 03/21/20 19:44 Glucose (Glucose 40% Gel 15 Gm Tube) 15 - 30 gm PO UD PRN; Protocol PRN Reason: Hypoglycemia Protocol Stop: 03/21/20 19:44 Glucose (Glucose 10 Tabs/Tube) 4 - 8 tabs PO UD PRN; Protocol PRN Reason: Hypoglycemia Protocol Stop: 03/21/20 19:44 Sodium Chloride (Nss 1000ml) 1,000 mls @ 15 mls/hr IV .Q24H SARAH Stop: 03/21/20 19:59 Last Infusion: 02/20/20 23:14 Dose: 0 mls/hr Documented by: Insulin Human Regular (Insulin Human Regular) 0 units SC ACHS SARAH Stop: 03/22/20 11:29 Lamotrigine (Lamotrigine 100 Mg Tab) 100 mg PO DAILY SARAH Stop: 03/22/20 08:59 Last Admin: 02/21/20 08:10 Dose: 100 mg Documented by: Levetiracetam (Levetiracetam 500 Mg Tab) 500 mg PO BID SARAH Stop: 03/21/20 20:59 Last Admin: 02/21/20 08:11 Dose: 500 mg Documented by: Menthol (Cough Drop (Sugar Free) Ryan 24 Ryan/1 Box) 1 ryan BUCCAL Q6 PRN PRN Reason: Sore Throat Stop: 03/22/20 03:47 Metoclopramide HCl (Metoclopramide Hcl 5 Mg Tablet) 5 mg PO BID SARAH Stop: 03/21/20 20:59 Last Admin: 02/21/20 08:11 Dose: 5 mg Documented by: Miscellaneous (Carbohydrates For Hypoglycemia ) 15 - 30 gm PO UD PRN PRN Reason: Hypoglycemia Treatment Stop: 03/21/20 19:44 Miscellaneous Information (Pharmacy Glycemic Mgmt Consult) 1 ea N/A UD PRN PRN Reason: Consult Stop: 03/21/20 18:58 Multivitamins (Multivitamin Tab) 1 tab PO QAM SARAH Stop: 03/22/20 08:59 Last Admin: 02/21/20 08:10 Dose: 1 tab Documented by: Ondansetron HCl (Ondansetron 4 Mg Od Tab) 4 mg PO Q8H PRN PRN Reason: Nausea Stop: 03/21/20 19:39 Last Admin: 02/20/20 20:48 Dose: 4 mg Documented by: Pantoprazole Sodium (Pantoprazole 40 Mg Tab) 40 mg PO QAM SARAH Stop: 03/22/20 08:59 Last Admin: 02/21/20 08:10 Dose: 40 mg Documented by: Polyethylene Glycol (Polyethylene (Miralax) 17 Gm Pack) 17 gm PO DAILY PRN PRN Reason: Constipation Stop: 03/21/20 18:04 Sennosides (Senna 8.6 Mg Tab) 8.6 mg PO DAILY SARAH Stop: 03/22/20 08:59 Last Admin: 02/21/20 08:11 Dose: 8.6 mg Documented by: Sertraline HCl (Sertraline Hcl 50 Mg Tablet) 150 mg PO HS SARAH Stop: 03/21/20 20:59 Last Admin: 02/20/20 20:42 Dose: 150 mg Documented by: Tramadol HCl (Tramadol Hcl 50 Mg Tablet) 50 mg PO Q8 PRN PRN Reason: Pain Stop: 03/21/20 20:27 Last Admin: 02/20/20 20:48 Dose: 50 mg Documented by: Vitamin B Complex/Folic Acid (Nephrocaps) 1 cap PO QPM SARAH Stop: 03/21/20 20:59 Last Admin: 02/20/20 21:39 Dose: Not Given Documented by: Code Status & VTE Plan VTE Prophylaxis Plan VTE Prophylaxis will be ordered: Yes (1) Abdominal pain Abdominal location: generalized Qualified Code(s): R10.84 - Generalized abdominal pain
[2020-02-20] MEDS ORDERED: DKA GOAL RANGE 150-250 mg/dl ONE (18:43)
[2020-02-20] MEDS ORDERED: PENDING D5 1/2NS+20mEq KCL IVF SCH (18:45)
[2020-02-20] MEDS ORDERED: PENDING 1/2NSS+20mEq KCL IVF SCH (18:45)
[2020-02-20] MEDS ORDERED: PNEUMOCOCCAL ADMINISTRATION CHARGE ONE (18:46)
[2020-02-20] MEDS ORDERED: PNEUMOCOCCAL POLYSACCHARIDES 25 MCG/0.5 ML VIAL/SYR IM ONE (18:46)
[2020-02-20] MEDS ORDERED: PHARMACY GLYCEMIC MGMT CONSULT PRN (18:59)
[2020-02-20] MEDS ORDERED: INSULIN REGULAR 250 UNITS in SODIUM CHLORIDE 0.9% 247.5 ML IV SCH (19:00)
[2020-02-20] MEDS ORDERED: ALBUTEROL HFA 8 GM INHALER INH PRN (19:35)
[2020-02-20] MEDS ORDERED: CARBOHYDRATES FOR HYPOGLYCEMIA PO PRN (19:45)
[2020-02-20] MEDS ORDERED: GLUCOSE 40% GEL 15 GM TUBE PO PRN (19:45)
[2020-02-20] MEDS ORDERED: GLUCAGON FOR INJ 1 MG VIAL IM PRN (19:45)
[2020-02-20] MEDS ORDERED: GLUCOSE 10 TABS/TUBE PO PRN (19:45)
[2020-02-20 20:39] LABS: BUN Creatinine Ratio 12.2 (10-20); Est GFR (African American) 10.2; Est GFR (Non-African American) 8.8; Magnesium 2.5 mg/dl (1.8-2.4); Phosphorus 4.4 mg/dl (2.5-4.9)
[2020-02-20] MEDS: ATORVASTATIN 40 MG TAB PO SCH (20:42)
[2020-02-20] MEDS: SERTRALINE HCL 50 MG TABLET PO SCH (20:42)
[2020-02-20] MEDS: SODIUM CHLORIDE 0.9% 1000ML 1,000 ML IV SCH (20:42)
[2020-02-20] MEDS: levETIRAcetam 500 MG TAB PO SCH (20:42)
[2020-02-20] MEDS: METOCLOPRAMIDE HCL 5 MG TABLET PO SCH (20:43)
[2020-02-20] MEDS: ARIPiprazole 5 MG TAB PO SCH (20:43)
[2020-02-20] MEDS: INSULIN ASPART 100 UNITS/ML 3 ML PEN SC SCH (20:45)
[2020-02-20] MEDS: ONDANSETRON 4 MG OD TAB PO PRN (20:48)
[2020-02-20] MEDS: TRAMADOL HCL 50 MG TABLET PO PRN (20:48)
[2020-02-20 20:54] LABS: Beta-Hydroxybutyrate 29.77 mg/dl (0.2-2.81)
[2020-02-20] MEDS: NEPHROCAPS PO SCH (21:39)
[2020-02-20] MEDS ORDERED: SODIUM BICARB 8.4% INJ 50 MEQ/50 ML SYR IV STA (22:15)
[2020-02-20] MEDS ORDERED: POTASSIUM CHLORIDE 20 MEQ in DEXTROSE 5% 1,000 ML IV PRN (23:15)
[2020-02-21 00:01] LABS: BUN Creatinine Ratio 12.5 (10-20); Calcium 9.2 mg/dl (8.5-10.1); Creatinine Clr Calc Pharmacy 10.3 ml/min; Est GFR (African American) 10.6; Est GFR (Non-African American) 9.1; Magnesium 2.5 mg/dl (1.8-2.4); Phosphorus 3.9 mg/dl (2.5-4.9); Potassium 3.6 mmol/L (3.5-5.1)
[2020-02-21] MEDS ORDERED: ALBUMIN 25% 50 ML IV ONE (01:08)
[2020-02-21] MEDS: DEXTROSE 50% 50 ML SYRINGE IV PRN ×2 (02:14→03:33)
[2020-02-21 03:41] LABS: BUN Creatinine Ratio 12.1 (10-20); Calcium 8.8 mg/dl (8.5-10.1); Creatinine Clr Calc Pharmacy 10.5 ml/min; Est GFR (African American) 10.7; Est GFR (Non-African American) 9.2; Magnesium 2.6 mg/dl (1.8-2.4); Phosphorus 4.6 mg/dl (2.5-4.9); Potassium 3.9 mmol/L (3.5-5.1)
[2020-02-21] MEDS ORDERED: COUGH DROP (SUGAR FREE) LOZ 24 LOZ/1 BOX BUCCAL STA (03:48)
[2020-02-21] MEDS ORDERED: COUGH DROP (SUGAR FREE) LOZ 24 LOZ/1 BOX BUCCAL PRN (03:48)
[2020-02-21] MEDS: carvediloL 12.5 MG TAB PO SCH ×2 (04:02→17:31)
[2020-02-21] MEDS ORDERED: carvediloL 12.5 MG TAB PO SCH (08:00)
[2020-02-21] MEDS: lamoTRIgine 100 MG TAB PO SCH (08:10)
[2020-02-21] MEDS: CALCIUM ACETATE 667 MG CAP/TAB PO SCH ×4 (08:10→19:43)
[2020-02-21] MEDS: MULTIVITAMIN TAB PO SCH (08:10)
[2020-02-21] MEDS: PANTOprazole 40 MG TAB PO SCH (08:10)
[2020-02-21] MEDS: FLUTICASONE/VILANTEROL 100/25MCG 14 PUFFS/INHALER INH SCH (08:11)
[2020-02-21] MEDS: METOCLOPRAMIDE HCL 5 MG TABLET PO SCH ×2 (08:11→19:43)
[2020-02-21] MEDS: SENNA 8.6 MG TAB PO SCH (08:11)
[2020-02-21] MEDS: levETIRAcetam 500 MG TAB PO SCH ×2 (08:11→19:43)
[2020-02-21] MEDS: INSULIN ASPART 100 UNITS/ML 3 ML PEN SC SCH (08:27)
[2020-02-21] MEDS ORDERED: INSULIN GLARGINE SOLOSTAR 100 UNITS/ML 3 ML PEN SC ONE (08:30)
--- NOTE | 2020-02-21 09:47 | Electrocardiogram Report ---
Test Reason : Blood Pressure : / mmHG Vent. Rate : 086 BPM Atrial Rate : 086 BPM P-R Int : 154 ms QRS Dur : 086 ms QT Int : 416 ms P-R-T Axes : 064 -06 036 degrees QTc Int : 497 ms Normal sinus rhythm Possible Left atrial enlargement Septal infarct (cited on or before 29-JAN-2020) Voltage criteria for left ventricular hypertrophy Abnormal ECG When compared with ECG of 29-JAN-2020 12:38, No significant change was found Confirmed by Catrachito Martin ([id number]) on 02/21/2020 9:47:00 AM Referred By: REFERRED SELF Confirmed By:Catrachito Martin
--- NOTE | 2020-02-21 11:46 | Hospitalist Progress Note ---
Date of Service February 21, 2020 Assessment & Plan (1) Hyperglycemia due to type 1 diabetes mellitus: (2) Acute hyperglycemia: - BSG in 500-600s -Unclear if she is injecting insulin correctly -Patient boyfriend reportedly helps with injections/questionable if patient has some scar tissue and low absorption of insulin/or incorrect technique -We will consult diabetic education for technique review -Glycemic pharmacist for hyperglycemia management (3) Diabetic gastroparesis associated with type 1 diabetes mellitus: (4) Abdominal pain: -Patient presented with generalized abdominal pain, nonspecific, nausea and vomiting -Likely secondary to hyperglycemia -known chronic abdominal discomforts due to gastroparesis -CT abdomen pelvis unremarkable -Now seems to be better-controlled -Continue Reglan, gastroparesis diet (5) Acute hyponatremia: -Likely in the setting of hyperglycemia -Continue to closely monitor -Should resolve with hypoglycemia treatment (6) CKD (chronic kidney disease) stage V requiring chronic dialysis: -Nephrology consulted for dialysis need -Her last HD was on , she was due for dialysis on Saturday however potassium and volume status is acceptable, therefore likely next dialysis on Saturday or Saturday (7) Bipolar disorder: (8) Depression: - continue home medications - cont. to monitor (9) Seizure: - hx of seizure disorder - cont. home Keppra DVT ppx: SCDs Code: Full Admission and Anticipated Discharge Date Admission Date: February 20, 2020 Subjective Patient is lying in bed, in no acute distress, however she complains of abdominal pain, headache, nausea and anxiety. She says she is anxious because her daughter does not talk to her. She was started on diet clear liquid, now as her anion gap has closed this morning. She does not feel like eating much. Feels that she had some chills last night, reviewing her chart, patient was afebrile since admission. No fevers reported. Review of Systems Review of Systems: All systems reviewed & are unremarkable except as noted in HPI & below Constitutional: + chills Respiratory: no cough and no dyspnea Cardiovascular: no chest pain and no palpitations Gastrointestinal: + abdominal pain (lower quadrants/ improved) Genitourinary: no dysuria Psychiatric: + anxiety Physical Exam Physical Exam: Constitutional: Middle-age female lying in bed, in no acute distress, but somewhat anxious Eyes: + anicteric sclerae ENMT: external ear and nose normal, oropharynx normal Neck: trachea midline Respiratory: normal respiratory effort, lungs clear to auscultation Auscultation: no rales, no rhonchi and no wheezes Cardiovascular: Rate/Rhythm: regular rate and regular rhythm , + syst. murmur, Vessels: dorsalis pedis pulses present Extremities: no pedal edema Gastrointestinal (Abdomen): Inspection/Auscultation: normal bowel sounds; abdomen not distended Percussion/Palpation: abdomen soft, slightly tender, + bowel sounds Musculoskeletal: Head/Neck/Chest: normocephalic, head atraumatic and neck s upple Extremities: no cyanosis and no clubbing Skin: no rashes, warm and dry no jaundice RUE dialysis fistula with positive thrill Neurologic: moves all extremities; no focal motor deficits Speech / Cognition: normal speech Psychiatric: Orientation: alert and oriented, answering questions appropriately Results & Data Results & Data ([facility]) Vital Signs (Past 12 Hours) Vital Signs Temp Pulse Pulse Resp BP Pulse Ox 02/21/20 07:29 36.7 C 65 17 124/63 92 02/21/20 03:31 36.8 C 77 18 185/82 H 92 02/20/20 23:41 81 Laboratory Results 02/21/20 02/21/20 02/21/20 Range/Units 04:57 03:50 03:28 WBC (4.8-10.8) K/uL RBC (4.2-5.4) M/uL Hgb (12.0-16.0) g/dL Hct (37-47) % MCV (80-100) fL MCH (25-34) pg MCHC (32-36) g/dL RDW Std Deviation (36.4-46.3) fL RDW Coeff of Lebron (11.5-14.5) % Plt Count (130-400) K/uL MPV (7.4-10.4) fL Immature Gran % (Auto) % Neut % (Auto) % Lymph % (Auto) % [place] % (Auto) % Eos % (Auto) % Baso % (Auto) % Neut # (Auto) (1.4-6.5) K/uL Lymph # (Auto) (1.2-3.4) K/uL [place] # (Auto) (0.11-0.59) K/uL Eos # (Auto) (0-0.5) K/uL Baso # (Auto) (0-0.2) K/uL Immature Gran # (Auto) (0.00-0.02) K/uL PT (9.0-12.0) Seconds INR (0.9-1.1) APTT (21.0-31.0) Seconds PTT Ratio VBG pH (7.36-7.41) VBG pCO2 (38-50) mmHg VBG pO2 mmHg VBG HCO3 mmol/L VBG O2 Saturation % VBG Base Excess mEq/L Barometric Pressure mm/Hg Sodium (136-145) mmol/L Potassium (3.5-5.1) mmol/L Chloride (98-107) mmol/L Carbon Dioxide (21-32) mmol/L Anion Gap (3-11) BUN (7-18) mg/dl Creatinine (0.6-1.2) mg/dl Est Cr Clr Drug Dosing ml/min Est GFR ( Amer) Est GFR (Non-Af Amer) BUN/Creatinine Ratio (10-20) Glucose (70-99) mg/dl POC Glucose 178 H 191 H 142 H (70-99) mg/dl Lactate (0.4-2.0) mmol/L Calcium (8.5-10.1) mg/dl Phosphorus (2.5-4.9) mg/dl Magnesium (1.8-2.4) mg/dl Total Bilirubin (0.2-1) mg/dl AST (15-37) U/L ALT (12-78) U/L Alkaline Phosphatase (45-117) U/L Troponin I (0-0.045) ng/ml Total Protein (6.4-8.2) gm/dl Albumin (3.4-5.0) gm/dl Globulin (2.5-4.0) gm/dl Albumin/Globulin Ratio (0.9-2) Beta-Hydroxybutyric Acd (0.2-2.81) mg/dl Procalcitonin (0-0.5) ng/ml Specimen Hemolysis 02/21/20 02/21/20 02/21/20 Range/Units 03:06 03:06 02:04 WBC (4.8-10.8) K/uL RBC (4.2-5.4) M/uL Hgb (12.0-16.0) g/dL Hct (37-47) % MCV (80-100) fL MCH (25-34) pg MCHC (32-36) g/dL RDW Std Deviation (36.4-46.3) fL RDW Coeff of Lebron (11.5-14.5) % Plt Count (130-400) K/uL MPV (7.4-10.4) fL Immature Gran % (Auto) % Neut % (Auto) % Lymph % (Auto) % [place] % (Auto) % Eos % (Auto) % Baso % (Auto) % Neut # (Auto) (1.4-6.5) K/uL Lymph # (Auto) (1.2-3.4) K/uL [place] # (Auto) (0.11-0.59) K/uL Eos # (Auto) (0-0.5) K/uL Baso # (Auto) (0-0.2) K/uL Immature Gran # (Auto) (0.00-0.02) K/uL PT (9.0-12.0) Seconds INR (0.9-1.1) APTT (21.0-31.0) Seconds PTT Ratio VBG pH 7.43 H (7.36-7.41) VBG pCO2 (38-50) mmHg VBG pO2 mmHg VBG HCO3 mmol/L VBG O2 Saturation % VBG Base Excess mEq/L Barometric Pressure mm/Hg Sodium 139 (136-145) mmol/L Potassium 3.9 (3.5-5.1) mmol/L Chloride 100 (98-107) mmol/L Carbon Dioxide 29 (21-32) mmol/L Anion Gap 10.0 (3-11) BUN 61 H (7-18) mg/dl Creatinine 5.03 H* (0.6-1.2) mg/dl Est Cr Clr Drug Dosing 10.5 ml/min Est GFR ( Amer) 10.7 Est GFR (Non-Af Amer) 9.2 BUN/Creatinine Ratio 12.1 (10-20) Glucose 97 (70-99) mg/dl POC Glucose 90 (70-99) mg/dl Lactate (0.4-2.0) mmol/L Calcium 8.8 (8.5-10.1) mg/dl Phosphorus 4.6 (2.5-4.9) mg/dl Magnesium 2.6 H (1.8-2.4) mg/dl Total Bilirubin (0.2-1) mg/dl AST (15-37) U/L ALT (12-78) U/L Alkaline Phosphatase (45-117) U/L Troponin I (0-0.045) ng/ml Total Protein (6.4-8.2) gm/dl Albumin (3.4-5.0) gm/dl Globulin (2.5-4.0) gm/dl Albumin/Globulin Ratio (0.9-2) Beta-Hydroxybutyric Acd (0.2-2.81) mg/dl Procalcitonin (0-0.5) ng/ml Specimen Hemolysis 02/21/20 02/21/20 02/20/20 Range/Units 01:02 00:12 23:17 WBC (4.8-10.8) K/uL RBC (4.2-5.4) M/uL Hgb (12.0-16.0) g/dL Hct (37-47) % MCV (80-100) fL MCH (25-34) pg MCHC (32-36) g/dL RDW Std Deviation (36.4-46.3) fL RDW Coeff of Lebron (11.5-14.5) % Plt Count (130-400) K/uL MPV (7.4-10.4) fL Immature Gran % (Auto) % Neut % (Auto) % Lymph % (Auto) % [place] % (Auto) % Eos % (Auto) % Baso % (Auto) % Neut # (Auto) (1.4-6.5) K/uL Lymph # (Auto) (1.2-3.4) K/uL [place] # (Auto) (0.11-0.59) K/uL Eos # (Auto) (0-0.5) K/uL Baso # (Auto) (0-0.2) K/uL Immature Gran # (Auto) (0.00-0.02) K/uL PT (9.0-12.0) Seconds INR (0.9-1.1) APTT (21.0-31.0) Seconds PTT Ratio VBG pH (7.36-7.41) VBG pCO2 (38-50) mmHg VBG pO2 mmHg VBG HCO3 mmol/L VBG O2 Saturation % VBG Base Excess mEq/L Barometric Pressure mm/Hg Sodium 140 (136-145) mmol/L Potassium 3.6 (3.5-5.1) mmol/L Chloride 98 (98-107) mmol/L Carbon Dioxide 27 (21-32) mmol/L Anion Gap 15.0 H (3-11) BUN 64 H (7-18) mg/dl Creatinine 5.09 H* (0.6-1.2) mg/dl Est Cr Clr Drug Dosing 10.3 ml/min Est GFR ( Amer) 10.6 Est GFR (Non-Af Amer) 9.1 BUN/Creatinine Ratio 12.5 (10-20) Glucose 182 H (70-99) mg/dl POC Glucose 135 H 152 H (70-99) mg/dl Lactate (0.4-2.0) mmol/L Calcium 9.2 (8.5-10.1) mg/dl Phosphorus 3.9 (2.5-4.9) mg/dl Magnesium 2.5 H (1.8-2.4) mg/dl Total Bilirubin (0.2-1) mg/dl AST (15-37) U/L ALT (12-78) U/L Alkaline Phosphatase (45-117) U/L Troponin I (0-0.045) ng/ml Total Protein (6.4-8.2) gm/dl Albumin (3.4-5.0) gm/dl Globulin (2.5-4.0) gm/dl Albumin/Globulin Ratio (0.9-2) Beta-Hydroxybutyric Acd (0.2-2.81) mg/dl Procalcitonin (0-0.5) ng/ml Specimen Hemolysis 02/20/20 02/20/20 02/20/20 Range/Units 23:07 22:32 22:01 WBC (4.8-10.8) K/uL RBC (4.2-5.4) M/uL Hgb (12.0-16.0) g/dL Hct (37-47) % MCV (80-100) fL MCH (25-34) pg MCHC (32-36) g/dL RDW Std Deviation (36.4-46.3) fL RDW Coeff of Lebron (11.5-14.5) % Plt Count (130-400) K/uL MPV (7.4-10.4) fL Immature Gran % (Auto) % Neut % (Auto) % Lymph % (Auto) % [place] % (Auto) % Eos % (Auto) % Baso % (Auto) % Neut # (Auto) (1.4-6.5) K/uL Lymph # (Auto) (1.2-3.4) K/uL [place] # (Auto) (0.11-0.59) K/uL Eos # (Auto) (0-0.5) K/uL Baso # (Auto) (0-0.2) K/uL Immature Gran # (Auto) (0.00-0.02) K/uL PT (9.0-12.0) Seconds INR (0.9-1.1) APTT (21.0-31.0) Seconds PTT Ratio VBG pH 7.44 H (7.36-7.41) VBG pCO2 (38-50) mmHg VBG pO2 mmHg VBG HCO3 mmol/L VBG O2 Saturation % VBG Base Excess mEq/L Barometric Pressure mm/Hg Sodium (136-145) mmol/L Potassium (3.5-5.1) mmol/L Chloride (98-107) mmol/L Carbon Dioxide (21-32) mmol/L Anion Gap (3-11) BUN (7-18) mg/dl Creatinine (0.6-1.2) mg/dl Est Cr Clr Drug Dosing ml/min Est GFR ( Amer) Est GFR (Non-Af Amer) BUN/Creatinine Ratio (10-20) Glucose (70-99) mg/dl POC Glucose 193 H 168 H (70-99) mg/dl Lactate (0.4-2.0) mmol/L Calcium (8.5-10.1) mg/dl Phosphorus (2.5-4.9) mg/dl Magnesium (1.8-2.4) mg/dl Total Bilirubin (0.2-1) mg/dl AST (15-37) U/L ALT (12-78) U/L Alkaline Phosphatase (45-117) U/L Troponin I (0-0.045) ng/ml Total Protein (6.4-8.2) gm/dl Albumin (3.4-5.0) gm/dl Globulin (2.5-4.0) gm/dl Albumin/Globulin Ratio (0.9-2) Beta-Hydroxybutyric Acd (0.2-2.81) mg/dl Procalcitonin (0-0.5) ng/ml Specimen Hemolysis 02/20/20 02/20/20 02/20/20 Range/Units 21:33 20:38 19:58 WBC (4.8-10.8) K/uL RBC (4.2-5.4) M/uL Hgb (12.0-16.0) g/dL Hct (37-47) % MCV (80-100) fL MCH (25-34) pg MCHC (32-36) g/dL RDW Std Deviation (36.4-46.3) fL RDW Coeff of Lebron (11.5-14.5) % Plt Count (130-400) K/uL MPV (7.4-10.4) fL Immature Gran % (Auto) % Neut % (Auto) % Lymph % (Auto) % [place] % (Auto) % Eos % (Auto) % Baso % (Auto) % Neut # (Auto) (1.4-6.5) K/uL Lymph # (Auto) (1.2-3.4) K/uL [place] # (Auto) (0.11-0.59) K/uL Eos # (Auto) (0-0.5) K/uL Baso # (Auto) (0-0.2) K/uL Immature Gran # (Auto) (0.00-0.02) K/uL PT (9.0-12.0) Seconds INR (0.9-1.1) APTT (21.0-31.0) Seconds PTT Ratio VBG pH 7.41 (7.36-7.41) VBG pCO2 (38-50) mmHg VBG pO2 mmHg VBG HCO3 mmol/L VBG O2 Saturation % VBG Base Excess mEq/L Barometric Pressure mm/Hg Sodium (136-145) mmol/L Potassium (3.5-5.1) mmol/L Chloride (98-107) mmol/L Carbon Dioxide (21-32) mmol/L Anion Gap (3-11) BUN (7-18) mg/dl Creatinine (0.6-1.2) mg/dl Est Cr Clr Drug Dosing ml/min Est GFR ( Amer) Est GFR (Non-Af Amer) BUN/Creatinine Ratio (10-20) Glucose (70-99) mg/dl POC Glucose 204 H 316 H* (70-99) mg/dl Lactate (0.4-2.0) mmol/L Calcium (8.5-10.1) mg/dl Phosphorus (2.5-4.9) mg/dl Magnesium (1.8-2.4) mg/dl Total Bilirubin (0.2-1) mg/dl AST (15-37) U/L ALT (12-78) U/L Alkaline Phosphatase (45-117) U/L Troponin I (0-0.045) ng/ml Total Protein (6.4-8.2) gm/dl Albumin (3.4-5.0) gm/dl Globulin (2.5-4.0) gm/dl Albumin/Globulin Ratio (0.9-2) Beta-Hydroxybutyric Acd (0.2-2.81) mg/dl Procalcitonin (0-0.5) ng/ml Specimen Hemolysis 02/20/20 02/20/20 02/20/20 Range/Units 19:58 19:24 18:54 WBC (4.8-10.8) K/uL RBC (4.2-5.4) M/uL Hgb (12.0-16.0) g/dL Hct (37-47) % MCV (80-100) fL MCH (25-34) pg MCHC (32-36) g/dL RDW Std Deviation (36.4-46.3) fL RDW Coeff of Lebron (11.5-14.5) % Plt Count (130-400) K/uL MPV (7.4-10.4) fL Immature Gran % (Auto) % Neut % (Auto) % Lymph % (Auto) % [place] % (Auto) % Eos % (Auto) % Baso % (Auto) % Neut # (Auto) (1.4-6.5) K/uL Lymph # (Auto) (1.2-3.4) K/uL [place] # (Auto) (0.11-0.59) K/uL Eos # (Auto) (0-0.5) K/uL Baso # (Auto) (0-0.2) K/uL Immature Gran # (Auto) (0.00-0.02) K/uL PT (9.0-12.0) Seconds INR (0.9-1.1) APTT (21.0-31.0) Seconds PTT Ratio VBG pH (7.36-7.41) VBG pCO2 (38-50) mmHg VBG pO2 mmHg VBG HCO3 mmol/L VBG O2 Saturation % VBG Base Excess mEq/L Barometric Pressure mm/Hg Sodium 135 L (136-145) mmol/L Potassium 4.0 (3.5-5.1) mmol/L Chloride 97 L (98-107) mmol/L Carbon Dioxide 24 (21-32) mmol/L Anion Gap 15.0 H (3-11) BUN 64 H (7-18) mg/dl Creatinine 5.25 H* (0.6-1.2) mg/dl Est Cr Clr Drug Dosing 10.0 ml/min Est GFR ( Amer) 10.2 Est GFR (Non-Af Amer) 8.8 BUN/Creatinine Ratio 12.2 (10-20) Glucose 388 H* (70-99) mg/dl POC Glucose 370 H* (70-99) mg/dl Lactate 0.8 (0.4-2.0) mmol/L Calcium 9.0 (8.5-10.1) mg/dl Phosphorus 4.4 (2.5-4.9) mg/dl Magnesium 2.5 H (1.8-2.4) mg/dl Total Bilirubin (0.2-1) mg/dl AST (15-37) U/L ALT (12-78) U/L Alkaline Phosphatase (45-117) U/L Troponin I (0-0.045) ng/ml Total Protein (6.4-8.2) gm/dl Albumin (3.4-5.0) gm/dl Globulin (2.5-4.0) gm/dl Albumin/Globulin Ratio (0.9-2) Beta-Hydroxybutyric Acd 29.77 H (0.2-2.81) mg/dl Procalcitonin (0-0.5) ng/ml Specimen Hemolysis 02/20/20 02/20/20 02/20/20 Range/Units 17:29 15:06 15:04 WBC (4.8-10.8) K/uL RBC (4.2-5.4) M/uL Hgb (12.0-16.0) g/dL Hct (37-47) % MCV (80-100) fL MCH (25-34) pg MCHC (32-36) g/dL RDW Std Deviation (36.4-46.3) fL RDW Coeff of Lebron (11.5-14.5) % Plt Count (130-400) K/uL MPV (7.4-10.4) fL Immature Gran % (Auto) % Neut % (Auto) % Lymph % (Auto) % [place] % (Auto) % Eos % (Auto) % Baso % (Auto) % Neut # (Auto) (1.4-6.5) K/uL Lymph # (Auto) (1.2-3.4) K/uL [place] # (Auto) (0.11-0.59) K/uL Eos # (Auto) (0-0.5) K/uL Baso # (Auto) (0-0.2) K/uL Immature Gran # (Auto) (0.00-0.02) K/uL PT (9.0-12.0) Seconds INR (0.9-1.1) APTT (21.0-31.0) Seconds PTT Ratio VBG pH (7.36-7.41) VBG pCO2 (38-50) mmHg VBG pO2 mmHg VBG HCO3 mmol/L VBG O2 Saturation % VBG Base Excess mEq/L Barometric Pressure mm/Hg Sodium (136-145) mmol/L Potassium (3.5-5.1) mmol/L Chloride (98-107) mmol/L Carbon Dioxide (21-32) mmol/L Anion Gap (3-11) BUN (7-18) mg/dl Creatinine (0.6-1.2) mg/dl Est Cr Clr Drug Dosing ml/min Est GFR ( Amer) Est GFR (Non-Af Amer) BUN/Creatinine Ratio (10-20) Glucose (70-99) mg/dl POC Glucose 343 H* 534 H* 529 H* (70-99) mg/dl Lactate (0.4-2.0) mmol/L Calcium (8.5-10.1) mg/dl Phosphorus (2.5-4.9) mg/dl Magnesium (1.8-2.4) mg/dl Total Bilirubin (0.2-1) mg/dl AST (15-37) U/L ALT (12-78) U/L Alkaline Phosphatase (45-117) U/L Troponin I (0-0.045) ng/ml Total Protein (6.4-8.2) gm/dl Albumin (3.4-5.0) gm/dl Globulin (2.5-4.0) gm/dl Albumin/Globulin Ratio (0.9-2) Beta-Hydroxybutyric Acd (0.2-2.81) mg/dl Procalcitonin (0-0.5) ng/ml Specimen Hemolysis 02/20/20 02/20/20 02/20/20 Range/Units 12:28 12:28 12:28 WBC (4.8-10.8) K/uL RBC (4.2-5.4) M/uL Hgb (12.0-16.0) g/dL Hct (37-47) % MCV (80-100) fL MCH (25-34) pg MCHC (32-36) g/dL RDW Std Deviation (36.4-46.3) fL RDW Coeff of Lebron (11.5-14.5) % Plt Count (130-400) K/uL MPV (7.4-10.4) fL Immature Gran % (Auto) % Neut % (Auto) % Lymph % (Auto) % [place] % (Auto) % Eos % (Auto) % Baso % (Auto) % Neut # (Auto) (1.4-6.5) K/uL Lymph # (Auto) (1.2-3.4) K/uL [place] # (Auto) (0.11-0.59) K/uL Eos # (Auto) (0-0.5) K/uL Baso # (Auto) (0-0.2) K/uL Immature Gran # (Auto) (0.00-0.02) K/uL PT (9.0-12.0) Seconds INR (0.9-1.1) APTT (21.0-31.0) Seconds PTT Ratio VBG pH 7.37 (7.36-7.41) VBG pCO2 41 (38-50) mmHg VBG pO2 37 mmHg VBG HCO3 23 mmol/L VBG O2 Saturation < 60.0 % VBG Base Excess -2.1 mEq/L Barometric Pressure 738.1 mm/Hg Sodium (136-145) mmol/L Potassium (3.5-5.1) mmol/L Chloride (98-107) mmol/L Carbon Dioxide (21-32) mmol/L Anion Gap (3-11) BUN (7-18) mg/dl Creatinine (0.6-1.2) mg/dl Est Cr Clr Drug Dosing ml/min Est GFR ( Amer) Est GFR (Non-Af Amer) BUN/Creatinine Ratio (10-20) Glucose (70-99) mg/dl POC Glucose (70-99) mg/dl Lactate 1.8 (0.4-2.0) mmol/L Calcium (8.5-10.1) mg/dl Phosphorus (2.5-4.9) mg/dl Magnesium (1.8-2.4) mg/dl Total Bilirubin (0.2-1) mg/dl AST (15-37) U/L ALT (12-78) U/L Alkaline Phosphatase (45-117) U/L Troponin I (0-0.045) ng/ml Total Protein (6.4-8.2) gm/dl Albumin (3.4-5.0) gm/dl Globulin (2.5-4.0) gm/dl Albumin/Globulin Ratio (0.9-2) Beta-Hydroxybutyric Acd (0.2-2.81) mg/dl Procalcitonin 0.32 (0-0.5) ng/ml Specimen Hemolysis 02/20/20 02/20/20 02/20/20 Range/Units 12:28 12:28 12:28 WBC 7.79 (4.8-10.8) K/uL RBC 3.88 L (4.2-5.4) M/uL Hgb 11.8 L (12.0-16.0) g/dL Hct 35.6 L (37-47) % MCV 91.8 (80-100) fL MCH 30.4 (25-34) pg MCHC 33.1 (32-36) g/dL RDW Std Deviation 48.9 H (36.4-46.3) fL RDW Coeff of Lebron 14.7 H (11.5-14.5) % Plt Count 361 (130-400) K/uL MPV 10.0 (7.4-10.4) fL Immature Gran % (Auto) 0.1 % Neut % (Auto) 58.4 % Lymph % (Auto) 32.2 % [place] % (Auto) 8.1 % Eos % (Auto) 0.8 % Baso % (Auto) 0.4 % Neut # (Auto) 4.55 (1.4-6.5) K/uL Lymph # (Auto) 2.51 (1.2-3.4) K/uL [place] # (Auto) 0.63 H (0.11-0.59) K/uL Eos # (Auto) 0.06 (0-0.5) K/uL Baso # (Auto) 0.03 (0-0.2) K/uL Immature Gran # (Auto) 0.01 (0.00-0.02) K/uL PT 11.3 (9.0-12.0) Seconds INR 1.1 (0.9-1.1) APTT 26.8 (21.0-31.0) Seconds PTT Ratio 1.0 VBG pH (7.36-7.41) VBG pCO2 (38-50) mmHg VBG pO2 mmHg VBG HCO3 mmol/L VBG O2 Saturation % VBG Base Excess mEq/L Barometric Pressure mm/Hg Sodium 129 L (136-145) mmol/L Potassium 4.6 (3.5-5.1) mmol/L Chloride 87 L (98-107) mmol/L Carbon Dioxide 22 (21-32) mmol/L Anion Gap 19.0 H (3-11) BUN 66 H (7-18) mg/dl Creatinine 5.50 H* (0.6-1.2) mg/dl Est Cr Clr Drug Dosing 9.6 ml/min Est GFR ( Amer) 9.6 Est GFR (Non-Af Amer) 8.3 BUN/Creatinine Ratio 12.0 (10-20) Glucose 573 H* (70-99) mg/dl POC Glucose (70-99) mg/dl Lactate (0.4-2.0) mmol/L Calcium 9.4 (8.5-10.1) mg/dl Phosphorus (2.5-4.9) mg/dl Magnesium 2.8 H (1.8-2.4) mg/dl Total Bilirubin 0.5 (0.2-1) mg/dl AST 13 L (15-37) U/L ALT 27 (12-78) U/L Alkaline Phosphatase 98 (45-117) U/L Troponin I < 0.015 (0-0.045) ng/ml Total Protein 7.7 (6.4-8.2) gm/dl Albumin 3.6 (3.4-5.0) gm/dl Globulin 4.1 H (2.5-4.0) gm/dl Albumin/Globulin Ratio 0.9 (0.9-2) Beta-Hydroxybutyric Acd 44.83 H (0.2-2.81) mg/dl Procalcitonin (0-0.5) ng/ml Specimen Hemolysis Medications Administered Current Inpatient Medications Acetaminophen (Acetaminophen 325 Mg Tab) 650 mg PO Q4H PRN PRN Reason: Pain or Fever Stop: 03/21/20 18:04 Albuterol (Albuterol Hfa 8 Gm Inhaler) 2 puffs INH QID PRN PRN Reason: Shortness Of Breath Stop: 03/21/20 19:34 Aripiprazole (Aripiprazole 5 Mg Tab) 5 mg PO HS SARAH Stop: 03/21/20 20:59 Last Admin: 02/20/20 20:43 Dose: 5 mg Documented by: Atorvastatin Calcium (Atorvastatin 40 Mg Tab) 40 mg PO HS SARAH Stop: 03/21/20 20:59 Last Admin: 02/20/20 20:42 Dose: 40 mg Documented by: Buspirone HCl (Buspirone 5 Mg Tab) 5 mg PO TID SARAH Stop: 03/21/20 20:59 Last Admin: 02/21/20 08:11 Dose: 5 mg Documented by: Calcium Acetate (Calcium Acetate 667 Mg Cap/Tab) 667 mg PO TIDM SARAH Stop: 03/22/20 07:59 Last Admin: 02/21/20 08:10 Dose: 667 mg Documented by: Carvedilol (Carvedilol 12.5 Mg Tab) 12.5 mg PO BIDM SARAH Stop: 03/22/20 03:39 Last Admin: 02/21/20 04:02 Dose: 12.5 mg Documented by: Dextrose (Dextrose 50% 50 Ml Syringe) 25 - 50 ml IV UD PRN; Protocol PRN Reason: Hypoglycemia Protocol Stop: 03/21/20 19:44 Last Admin: 02/21/20 03:33 Dose: 25 ml Documented by: Fluticasone/Vilanterol (Fluticasone/Vilanterol 100/25mcg 14 Puffs/Inhaler) 1 puffs INH DAILY SARAH Stop: 03/22/20 08:59 Last Admin: 02/21/20 08:11 Dose: 1 puffs Documented by: Glucagon (Glucagon For Inj 1 Mg Vial) 1 mg IM UD PRN; Protocol PRN Reason: Hypoglycemia Protocol Stop: 03/21/20 19:44 Glucose (Glucose 40% Gel 15 Gm Tube) 15 - 30 gm PO UD PRN; Protocol PRN Reason: Hypoglycemia Protocol Stop: 03/21/20 19:44 Glucose (Glucose 10 Tabs/Tube) 4 - 8 tabs PO UD PRN; Protocol PRN Reason: Hypoglycemia Protocol Stop: 03/21/20 19:44 Sodium Chloride (Nss 1000ml) 1,000 mls @ 15 mls/hr IV .Q24H SARAH Stop: 03/21/20 19:59 Last Infusion: 02/20/20 23:14 Dose: 0 mls/hr Documented by: Insulin Human Regular (Insulin Human Regular) 0 units SC ACHS SARAH Stop: 03/22/20 11:29 Lamotrigine (Lamotrigine 100 Mg Tab) 100 mg PO DAILY SARAH Stop: 03/22/20 08:59 Last Admin: 02/21/20 08:10 Dose: 100 mg Documented by: Levetiracetam (Levetiracetam 500 Mg Tab) 500 mg PO BID SARAH Stop: 03/21/20 20:59 Last Admin: 02/21/20 08:11 Dose: 500 mg Documented by: Menthol (Cough Drop (Sugar Free) Ryan 24 Ryan/1 Box) 1 ryan BUCCAL Q6 PRN PRN Reason: Sore Throat Stop: 03/22/20 03:47 Metoclopramide HCl (Metoclopramide Hcl 5 Mg Tablet) 5 mg PO BID SARAH Stop: 03/21/20 20:59 Last Admin: 02/21/20 08:11 Dose: 5 mg Documented by: Miscellaneous (Carbohydrates For Hypoglycemia ) 15 - 30 gm PO UD PRN PRN Reason: Hypoglycemia Treatment Stop: 03/21/20 19:44 Miscellaneous Information (Pharmacy Glycemic Mgmt Consult) 1 ea N/A UD PRN PRN Reason: Consult Stop: 03/21/20 18:58 Multivitamins (Multivitamin Tab) 1 tab PO QAM SARAH Stop: 03/22/20 08:59 Last Admin: 02/21/20 08:10 Dose: 1 tab Documented by: Ondansetron HCl (Ondansetron 4 Mg Od Tab) 4 mg PO Q8H PRN PRN Reason: Nausea Stop: 03/21/20 19:39 Last Admin: 02/20/20 20:48 Dose: 4 mg Documented by: Pantoprazole Sodium (Pantoprazole 40 Mg Tab) 40 mg PO QAM SARAH Stop: 03/22/20 08:59 Last Admin: 02/21/20 08:10 Dose: 40 mg Documented by: Polyethylene Glycol (Polyethylene (Miralax) 17 Gm Pack) 17 gm PO DAILY PRN PRN Reason: Constipation Stop: 03/21/20 18:04 Sennosides (Senna 8.6 Mg Tab) 8.6 mg PO DAILY SARAH Stop: 03/22/20 08:59 Last Admin: 02/21/20 08:11 Dose: 8.6 mg Documented by: Sertraline HCl (Sertraline Hcl 50 Mg Tablet) 150 mg PO HS SARAH Stop: 03/21/20 20:59 Last Admin: 02/20/20 20:42 Dose: 150 mg Documented by: Tramadol HCl (Tramadol Hcl 50 Mg Tablet) 50 mg PO Q8 PRN PRN Reason: Pain Stop: 03/21/20 20:27 Last Admin: 02/20/20 20:48 Dose: 50 mg Documented by: Vitamin B Complex/Folic Acid (Nephrocaps) 1 cap PO QPM SARAH Stop: 03/21/20 20:59 Last Admin: 02/20/20 21:39 Dose: Not Given Documented by: (1) Abdominal pain Abdominal location: generalized Qualified Code(s): R10.84 - Generalized abdominal pain
[2020-02-21] MEDS: INSULIN HUMAN REGULAR SC SCH ×3 (12:40→20:10)
[2020-02-21 13:44] LABS: BUN Creatinine Ratio 12.1 (10-20); Calcium 8.8 mg/dl (8.5-10.1); Creatinine Clr Calc Pharmacy 10.7 ml/min; Est GFR (Non-African American) 9.5; Potassium 3.9 mmol/L (3.5-5.1)
--- NOTE | 2020-02-21 14:18 | Pharmacy Report ---
Pharmacy Glycemic Short Note 2 - Date of Service February 21, 2020 - Glycemic Short BSG Results (Last 24 hours): 02/20/20 02/20/20 02/20/20 15:04 15:06 17:29 Glucose POC Glucose 529 H* 534 H* 343 H* 02/20/20 02/20/20 02/20/20 19:24 19:58 20:38 Glucose 388 H* POC Glucose 370 H* 316 H* 02/20/20 02/20/20 02/20/20 21:33 22:01 22:32 Glucose POC Glucose 204 H 168 H 193 H 02/20/20 02/21/20 02/21/20 23:17 00:12 01:02 Glucose 182 H POC Glucose 152 H 135 H 02/21/20 02/21/20 02/21/20 02:04 03:06 03:28 Glucose 97 POC Glucose 90 142 H 02/21/20 02/21/20 02/21/20 03:50 04:57 11:47 Glucose POC Glucose 191 H 178 H 141 H 02/21/20 12:18 Glucose 170 H POC Glucose OUTPATIENT ANTIDIABETIC REGIMEN: * Lantus 20 units SQ qHS * Novolog 10 units TID with meals * A1c = 8.8% (01/04/20) * However, this result is likely somewhat unreliable in ESRD patients d/t interactions between the A1c analyzing technique and high levels of urea in ESRD, reduced RBC life span, iron deficiency anemia, and EPO administration. HbA1c > 7.5% in ESRD patient may overestimate the extent of hyperglycemia in ESRD patients. ASSESSMENT: * Laura is a 49 yo T1DM admitted with severe hyperglycemia and abdominal pain. She has a h/o gastroparesis and is known to the Pharmacy Glycemic service from previous admissions. She was started on an IV insulin infusion yesterday evening. The infusion was held this morning. * Transition patient to SQ basal + bolus insulin based on home doses and previous hospital data. PLAN FOR INPATIENT GLYCEMIC CONTROL: * Basal insulin * Lantus 18 units SQ x 1 * Reassess Lantus dose on 914 AM * Bolus insulin * REGULAR per scale ACHS or Q6hrs while NPO * Goal Range: Low 120 mg/dL - High 160 mg/dL * Correction Factor: 25 mg/dL/unit * Nutritional / Prandial insulin per carb ratio of 1 unit per 15 grams CHO consumed
[2020-02-21] MEDS: TRAMADOL HCL 50 MG TABLET PO PRN (17:32)
[2020-02-21] MEDS: ARIPiprazole 5 MG TAB PO SCH (19:42)
[2020-02-21] MEDS: ATORVASTATIN 40 MG TAB PO SCH (19:42)
[2020-02-21] MEDS: SERTRALINE HCL 50 MG TABLET PO SCH (19:42)
[2020-02-21] MEDS: NEPHROCAPS PO SCH (19:43)
--- NOTE | 2020-02-21 20:26 | Nephrology Consultation ---
Date of Consultation February 21, 2020 Assessment & Plan (1) End-stage renal disease (ESRD): Patient with ESRD on HD TTS. Last HD was on . Electrolytes are stable and no volume overload. No need for HD today. Next HD saturday unless clinical condition changes (2) Hyperglycemia due to type 1 diabetes mellitus: Patient with difficult to control DM and frequent admissions for hyperglycemia. Blood sugars better now. No need for IV fluids as patient is ESRD. Continue insulin per primary team. History of Present Illness Reason for Consultation: ESRD and hyperglycemia Requesting Physician: Sujit Musa MD Attending Physician: Sujit Musa MD History of Present Illness This is a complicated 49 y/o female with a PMH of type 1 DM, ESRD on HD, chronic diastolic CHF, prior CVAs, COPD, CAD, GERD, gastroparesis, and seizure disorder who was admitted on 02/20/20 with hyperglycemia. SHe is on HD TTS. Last HD was on . Blood sugar was in the 600's. SHe feels better today after insulin and a litre of fluids yesterday. No SOB. No vomiting today. No leg swelling. She has a right UA AVF. Allergies Allergy/AdvReac Type Severity Reaction Status Date / Time Fish Containing Products Allergy Mild Hives Verified 02/20/20 16:04 latex Allergy Mild hives Verified 02/20/20 16:04 shellfish derived Allergy Unknown Verified 02/20/20 16:04 Home Medications Home Medications Medication Instructions Recorded Confirmed Type [place] Caps 1 cap PO QPM 12/19/18 02/20/20 History bisacodyl 10 mg PO DAILY PRN 12/19/18 02/20/20 History carvedilol [Coreg] 12.5 mg PO BIDM 12/19/18 02/20/20 History multivitamin 1 tab PO QAM 12/19/18 02/20/20 History pantoprazole [Protonix] 40 mg PO QAM 12/19/18 02/20/20 History polyethylene glycol 3350 [Miralax] 17 g PO BID PRN 12/19/18 02/20/20 History aripiprazole [Abilify] 5 mg PO HS 05/20/19 02/20/20 History levetiracetam [Keppra] 500 mg PO BID 06/20/19 02/20/20 History atorvastatin [Lipitor] 40 mg PO HS 08/01/19 02/20/20 History sertraline [Zoloft] 150 mg PO HS 08/01/19 02/20/20 History calcium acetate(phosphat bind) 667 mg PO TIDM 11/09/19 02/20/20 History insulin aspart U-100 [Novolog 10 unit SUBCUT TIDM 11/09/19 02/20/20 History U-100 Insulin aspart] Breo Ellipta 1 inh INHALATION DAILY 01/03/20 02/20/20 History lorazepam 0.5 mg PO BID PRN 01/03/20 02/20/20 History Ketone Urine Test #100 ea 01/06/20 02/20/20 Rx Linzess 145 mcg PO QAM #30 cap 01/07/20 02/20/20 Rx ergocalciferol (vitamin D2) 50,000 unit PO WK 01/29/20 02/20/20 History gabapentin 100 mg PO DAILY 01/29/20 02/20/20 History lactulose 15 ml PO BID PRN 01/29/20 02/20/20 History melatonin 3 mg PO HS 01/29/20 02/20/20 History metoclopramide HCl 5 mg PO BID 01/29/20 02/20/20 History ondansetron HCl 4 mg PO Q8H PRN 01/29/20 02/20/20 History sennosides [senna] 8.6 mg PO DAILY 01/29/20 02/20/20 History lamotrigine 100 mg PO DAILY 01/30/20 02/20/20 History acetaminophen [Tylenol] 325 mg PO Q4 PRN 02/20/20 02/20/20 History albuterol sulfate 2 inh INHALATION QID PRN 02/20/20 02/20/20 History buspirone 5 mg PO TID 02/20/20 02/20/20 History docusate sodium 100 mg PO DAILY 02/20/20 02/20/20 History hydroxyzine HCl 25 mg PO TID PRN 02/20/20 02/20/20 History insulin glargine [Lantus Solostar 20 unit SUBCUT PM 02/20/20 02/20/20 History U-100 Insulin] temazepam [Restoril] 15 mg PO HS 02/20/20 02/20/20 History tramadol [Ultram] 50 mg PO Q8 PRN 02/20/20 02/20/20 History trazodone 75 mg PO HS PRN 02/20/20 02/20/20 History Patient History Medical History Anemia due to chronic kidney disease Arteriovenous fistula for hemodialysis in place, primary Bipolar disorder CKD (chronic kidney disease) stage V requiring chronic dialysis Coronary artery disease "2015 - cardiac catheterization showing nonobstructive coronary disease Stress test 06/2017 - possible small area of ischemia in the anterior wall" CVA (cerebral vascular accident) 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 history of CVA in 2018 Residual R sided weakness Depression Diabetic gastroparesis Diastolic heart failure DM type 1 (diabetes mellitus, type 1) ESRD (end stage renal disease) on dialysis GERD (gastroesophageal reflux disease) History of GI bleed Hyperlipidemia Hypertension Seizure Surgical History Hx of appendectomy Hx of cholecystectomy Hx of tubal ligation Family History Mother Coronary heart disease Hypertension Father Coronary heart disease Other No significant family history Social History Smoking Status: Current every day smoker Tobacco Type: Cigarettes Second Hand Exposure: No; Do You Dip or Chew Tobacco: No; Tobacco Cessation Education Requested by Patient: No Hx Alcohol Use: No Hx Substance Use: No Preferred Language: Persian Communication Ability: Effective Organic 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 Teacher Required: No Beliefs That Will Affect Care: None marital status: Single Current Living Situation: Spouse current occupational status: unemployed Other Information That Helps Us Care for You: No Feels Safe at Home: Yes Safety Concerns: Feels Safe At This Time Review of Systems Review of Systems: All systems reviewed & are unremarkable except as noted in HPI & below Physical Exam Physical Exam: General exam: Appears comfortable, no acute distress HEENT: Pupils are equal and reactive to light Neck: No JVD, neck is supple trachea is midline Respiratory system: Clear breath sounds bilaterally. Gastrointestinal: Abdomen is soft, non distended, non tender, bowel sounds are present CVS: Regular rate and rhythm. No murmurs, rubs or gallops Musculoskeletal: No joint or muscle tenderness Extremities: Non tender, no edema, peripheral pulses are present Neuro: Oriented, no tremors, no focal neurological deficits Skin: No rashes Access: right UA AVF, good bruit Results & Data ([facility]) Vital Signs (Past 12 Hours) Vital Signs Temp Pulse Resp BP Pulse Ox 02/21/20 18:54 36.7 C 67 16 164/72 H 96 02/21/20 15:32 36.5 C 66 18 162/68 H 96 02/21/20 11:47 36.7 C 72 17 135/58 L 95 Laboratory Results 02/21/20 12:18 02/20/20 02/20/20 02/21/20 19:58 23:17 03:06 Phosphorus 4.4 3.9 4.6
[2020-02-21] MEDS: ONDANSETRON 4 MG OD TAB PO PRN (21:02)
[2020-02-21] MEDS: SODIUM CHLORIDE 0.9% 1000ML 1,000 ML IV SCH (23:31)
[2020-02-22 04:41] LABS: Appearance Urine Clear (Clear); Bacteria Urine Automated Negative (Negative); Bilirubin Urine Negative (Negative); Blood Urine 2+ (Negative); Color Urine Yellow; Glucose Urine UA 1+ (Negative); Ketones Urine Negative (Negative); Leukocyte Esterase Urine Trace (Negative); Nitrite Urine Negative (Negative); RBC Urine Automated 0-4 /hpf (0-4); Specific Gravity Urine 1.014 (1.000-1.030); Urobilinogen Urine Negative (Negative)
[2020-02-22 04:47] LABS: Protein Urine 2+ (Negative)
[2020-02-22 04:58] LABS: Sulfosalicylic Acid Urine Positive (Negative)
[2020-02-22 04:59] LABS: Amphetamines+Metham, Urine Neg (Neg); Barbiturates, Urine Neg (Neg); Benzodiazepine, Urine Neg (Neg); Cocaine, Urine Neg (Neg); MDMA (Ecstacy), Urine Neg (Neg); Methadone, Urine Neg (Neg); Opiate, Urine Neg (Neg); Phencyclidine, Urine Neg (Neg)
[2020-02-22] MEDS: FLUTICASONE/VILANTEROL 100/25MCG 14 PUFFS/INHALER INH SCH (07:39)
[2020-02-22] MEDS: carvediloL 12.5 MG TAB PO SCH ×2 (07:39→17:21)
[2020-02-22] MEDS: lamoTRIgine 100 MG TAB PO SCH (07:40)
[2020-02-22] MEDS: PANTOprazole 40 MG TAB PO SCH (07:40)
[2020-02-22] MEDS: levETIRAcetam 500 MG TAB PO SCH ×2 (07:40→20:14)
[2020-02-22] MEDS: CALCIUM ACETATE 667 MG CAP/TAB PO SCH ×2 (07:41→17:21)
[2020-02-22] MEDS: TRAMADOL HCL 50 MG TABLET PO PRN (07:41)
[2020-02-22] MEDS: METOCLOPRAMIDE HCL 5 MG TABLET PO SCH ×2 (07:41→20:14)
[2020-02-22] MEDS: SENNA 8.6 MG TAB PO SCH (07:41)
[2020-02-22] MEDS: MULTIVITAMIN TAB PO SCH (07:41)
[2020-02-22] MEDS: INSULIN HUMAN REGULAR SC SCH (07:50)
[2020-02-22] MEDS ORDERED: INSULIN GLARGINE SOLOSTAR 100 UNITS/ML 3 ML PEN SC SCH (08:15)
--- NOTE | 2020-02-22 08:34 | Hospitalist Progress Note ---
Date of Service February 22, 2020 Assessment & Plan (1) Hyperglycemia due to type 1 diabetes mellitus: (2) Acute hyperglycemia: - BSG in 500-600s -Unclear if she is injecting insulin correctly -Patient's boyfriend reportedly helps with injections/questionable if patient has some scar tissue and low absorption of insulin/or incorrect technique -We will consult diabetic education for technique review -Glycemic pharmacist for hyperglycemia management (3) Diabetic gastroparesis associated with type 1 diabetes mellitus: (4) Abdominal pain: -Patient presented with generalized abdominal pain, nonspecific, nausea and vomiting -Likely secondary to hyperglycemia -known chronic abdominal discomforts due to gastroparesis -CT abdomen pelvis unremarkable -Now seems to be better-controlled, no vomiting, and she tolerates food -Continue Reglan, gastroparesis diet (5) Acute hyponatremia: - in the setting of hyperglycemia -Continue to closely monitor -Should resolve with hyperglycemia treatment (6) CKD (chronic kidney disease) stage V requiring chronic dialysis: -Nephrology consulted for dialysis need -Her last HD prior to admission was on , she was due for dialysis on Saturday however potassium and volume status acceptable, therefore postponed - underwent HD today 02/22/20 (7) Bipolar disorder: (8) Depression: - continue home medications - cont. to monitor (9) Seizure: - hx of seizure disorder - cont. home Keppra DVT ppx: SCDs Code: Full Admission and Anticipated Discharge Date Admission Date: February 20, 2020 Anticipated date of discharge: 02/23/20 Subjective Patient is lying in bed, in no acute distress. She just underwent dialysis. She says that she is having headache and some abdominal discomfort. However patient appears very comfortable resting in bed. She says she usually has chronic abdominal pain that is 6-7 out of 10, and now it's 8/10. I asked her what she takes at home for pain, she says nothing. I asked her about Tylenol and recommended Tylenol for her common discomfort. She denies any nausea or diarrhea. She had a normal bowel movement today. Says that she has been eating well (states she had some yogurt, for breakfast, rice for lunch). Discussed that we are trying to adjust her insulin as good as we can, and that she will need to follow-up with primary care doctor. She says that she will follow up w/ her PCP, who manages her insulin. Review of Systems Review of Systems: All systems reviewed & are unremarkable except as noted in HPI & below Constitutional: no fever and no chills Respiratory: no cough and no dyspnea Cardiovascular: no chest pain and no palpitations Gastrointestinal: + abdominal pain (lower quadrants/ improved); no constipation and no diarrhea/loose stools Physical Exam Physical Exam: Constitutional: Middle-age female lying in bed, in no acute distress, but somewhat anxious Eyes: + anicteric sclerae ENMT: external ear and nose normal, oropharynx normal Neck: trachea midline Respiratory: normal respiratory effort, lungs clear to auscultation Auscultation: no rales, no rhonchi and no wheezes Cardiovascular: Rate/Rhythm: regular rate and regular rhythm , + syst. murmur, Vessels: dorsalis pedis pulses present Extremities: no pedal edema Gastrointestinal (Abdomen): Inspection/Auscultation: normal bowel sounds; abdomen not distended Percussion/Palpation: abdomen soft, slightly tender, + bowel sounds Musculoskeletal: Head/Neck/Chest: normocephalic, head atraumatic and neck supple Extremities: no cyanosis and no clubbing Skin: no rashes, warm and dry no jaundice RUE dialysis fistula with positive thrill Neurologic: moves all extremities; no focal motor deficits Speech / Cognition: normal speech Psychiatric: Orientation: alert and oriented, answering questions appropriately Results & Data Results & Data ([facility]) Vital Signs (Past 12 Hours) Vital Signs Temp Pulse Pulse Pulse Resp BP Pulse Ox 02/22/20 07:11 37.0 C 69 16 171/73 H 97 02/22/20 04:37 37.1 C 73 20 155/72 H 97 02/22/20 00:31 62 02/21/20 22:36 36.7 C 66 18 161/72 H 98 02/21/20 20:40 36.5 C 68 20 176/75 H 100 Laboratory Results 02/22/20 02/22/20 02/22/20 Range/Units 07:25 07:25 04:32 Sodium (136-145) mmol/L Potassium (3.5-5.1) mmol/L Chloride (98-107) mmol/L Carbon Dioxide (21-32) mmol/L Anion Gap (3-11) BUN (7-18) mg/dl Creatinine (0.6-1.2) mg/dl Est Cr Clr Drug Dosing ml/min Est GFR ( Amer) Est GFR (Non-Af Amer) BUN/Creatinine Ratio (10-20) Glucose (70-99) mg/dl POC Glucose 331 H* 334 H* (70-99) mg/dl Calcium (8.5-10.1) mg/dl Urine Color Yellow Urine Appearance Clear (Clear) Urine pH 8.0 H (4.5-7.5) Ur Specific Sanford 1.014 (1.000-1.030) Urine Protein 2+ H (Negative) Urine Glucose (UA) 1+ H (Negative) Urine Ketones Negative (Negative) Urine Blood 2+ H (Negative) Urine Nitrite Negative (Negative) Urine Bilirubin Negative (Negative) Urine Urobilinogen Negative (Negative) Ur Leukocyte Esterase Trace H (Negative) Urine WBC (Auto) 1-5 (0-5) /hpf Urine RBC (Auto) 0-4 (0-4) /hpf U Hyaline Cast (Auto) 1-5 (0-5) /lpf U Epithel Cells (Auto) 10-20 H (0-5) /lpf Urine Bacteria (Auto) Negative (Negative) Urine Opiates Screen (Neg) Ur Methadone, Qual (Neg) Urine Barbiturates (Neg) Ur Phencyclidine (PCP) (Neg) U Amphetamin/Meth Scrn (Neg) MDMA (Ecstasy) Screen (Neg) U Benzodiazepines Scrn (Neg) Ur Cocaine Metabolite (Neg) U Marijuana (THC) Screen (Neg) 02/22/20 02/21/20 02/21/20 Range/Units 04:32 20:07 16:42 Sodium (136-145) mmol/L Potassium (3.5-5.1) mmol/L Chloride (98-107) mmol/L Carbon Dioxide (21-32) mmol/L Anion Gap (3-11) BUN (7-18) mg/dl Creatinine (0.6-1.2) mg/dl Est Cr Clr Drug Dosing ml/min Est GFR ( Amer) Est GFR (Non-Af Amer) BUN/Creatinine Ratio (10-20) Glucose (70-99) mg/dl POC Glucose 112 H 87 (70-99) mg/dl Calcium (8.5-10.1) mg/dl Urine Color Urine Appearance (Clear) Urine pH (4.5-7.5) Ur Specific [place]ford (1.000-1.030) Urine Protein (Negative) Urine Glucose (UA) (Negative) Urine Ketones (Negative) Urine Blood (Negative) Urine Nitrite (Negative) Urine Bilirubin (Negative) Urine Urobilinogen (Negative) Ur Leukocyte Esterase (Negative) Urine WBC (Auto) (0-5) /hpf Urine RBC (Auto) (0-4) /hpf U Hyaline Cast (Auto) (0-5) /lpf U Epithel Cells (Auto) (0-5) /lpf Urine Bacteria (Auto) (Negative) Urine Opiates Screen Neg (Neg) Ur Methadone, Qual Neg (Neg) Urine Barbiturates Neg (Neg) Ur Phencyclidine (PCP) Neg (Neg) U Amphetamin/Meth Scrn Neg (Neg) MDMA (Ecstasy) Screen Neg (Neg) U Benzodiazepines Scrn Neg (Neg) Ur Cocaine Metabolite Neg (Neg) U Marijuana (THC) Screen Neg (Neg) 02/21/20 02/21/20 02/21/20 Range/Units 16:14 16:13 12:18 Sodium 139 (136-145) mmol/L Potassium 3.9 (3.5-5.1) mmol/L Chloride 100 (98-107) mmol/L Carbon Dioxide 29 (21-32) mmol/L Anion Gap 11.0 (3-11) BUN 59 H (7-18) mg/dl Creatinine 4.92 H* (0.6-1.2) mg/dl Est Cr Clr Drug Dosing 10.7 ml/min Est GFR ( Amer) 11.0 Est GFR (Non-Af Amer) 9.5 BUN/Creatinine Ratio 12.1 (10-20) Glucose 170 H (70-99) mg/dl POC Glucose 63 L* 61 L* (70-99) mg/dl Calcium 8.8 (8.5-10.1) mg/dl Urine Color Urine Appearance (Clear) Urine pH (4.5-7.5) Ur Specific [place] (1.000-1.030) Urine Protein (Negative) Urine Glucose (UA) (Negative) Urine Ketones (Negative) Urine Blood (Negative) Urine Nitrite (Negative) Urine Bilirubin (Negative) Urine Urobilinogen (Negative) Ur Leukocyte Esterase (Negative) Urine WBC (Auto) (0-5) /hpf Urine RBC (Auto) (0-4) /hpf U Hyaline Cast (Auto) (0-5) /lpf U Epithel Cells (Auto) (0-5) /lpf Urine Bacteria (Auto) (Negative) Urine Opiates Screen (Neg) Ur Methadone, Qual (Neg) Urine Barbiturates (Neg) Ur Phencyclidine (PCP) (Neg) U Amphetamin/Meth Scrn (Neg) MDMA (Ecstasy) Screen (Neg) U Benzodiazepines Scrn (Neg) Ur Cocaine Metabolite (Neg) U Marijuana (THC) Screen (Neg) 02/21/20 Range/Units 11:47 Sodium (136-145) mmol/L Potassium (3.5-5.1) mmol/L Chloride (98-107) mmol/L Carbon Dioxide (21-32) mmol/L Anion Gap (3-11) BUN (7-18) mg/dl Creatinine (0.6-1.2) mg/dl Est Cr Clr Drug Dosing ml/min Est GFR ( Amer) Est GFR (Non-Af Amer) BUN/Creatinine Ratio (10-20) Glucose (70-99) mg/dl POC Glucose 141 H (70-99) mg/dl Calcium (8.5-10.1) mg/dl Urine Color Urine Appearance (Clear) Urine pH (4.5-7.5) Ur Specific [place] (1.000-1.030) Urine Protein (Negative) Urine Glucose (UA) (Negative) Urine Ketones (Negative) Urine Blood (Negative) Urine Nitrite (Negative) Urine Bilirubin (Negative) Urine Urobilinogen (Negative) Ur Leukocyte Esterase (Negative) Urine WBC (Auto) (0-5) /hpf Urine RBC (Auto) (0-4) /hpf U Hyaline Cast (Auto) (0-5) /lpf U Epithel Cells (Auto) (0-5) /lpf Urine Bacteria (Auto) (Negative) Urine Opiates Screen (Neg) Ur Methadone, Qual (Neg) Urine Barbiturates (Neg) Ur Phencyclidine (PCP) (Neg) U Amphetamin/Meth Scrn (Neg) MDMA (Ecstasy) Screen (Neg) U Benzodiazepines Scrn (Neg) Ur Cocaine Metabolite (Neg) U Marijuana (THC) Screen (Neg) (1) Abdominal pain Abdominal location: generalized Qualified Code(s): R10.84 - Generalized abdo rose marie pain
[2020-02-22] MEDS ORDERED: SODIUM CHLORIDE 0.9% 1000ML 1,000 ML IV PRN (09:18)
[2020-02-22] MEDS ORDERED: HEPARIN SOD (PORCINE) 1000 UNIT/ML 10 ML VIAL IV ONE (09:18)
[2020-02-22 09:43] LABS: Calcium 9.2 mg/dl (8.5-10.1); Creatinine Clr Calc Pharmacy 10.5 ml/min; Est GFR (African American) 10.8; Est GFR (Non-African American) 9.3; Potassium 4.2 mmol/L (3.5-5.1)
[2020-02-22 10:00] LABS: Beta-Hydroxybutyrate 1.6 mg/dl (0.2-2.81)
--- NOTE | 2020-02-22 10:12 | Pharmacy Report ---
Pharmacy Glycemic Short Note 2 - Date of Service February 22, 2020 - Glycemic Short BSG Results (Last 24 hours): 02/21/20 02/21/20 02/21/20 11:47 12:18 16:13 Glucose 170 H POC Glucose 141 H 61 L* 02/21/20 02/21/20 02/21/20 16:14 16:42 20:07 Glucose POC Glucose 63 L* 87 112 H 02/22/20 02/22/20 07:25 07:25 Glucose POC Glucose 334 H* 331 H* OUTPATIENT ANTIDIABETIC REGIMEN: * Per patient: * Lantus 15 units SQ qHS * Novolog 10 units TID with meals + 5 additional units if BSG > 300 mg/dL * A1c = 8.8% (01/04/20) * However, this result is likely somewhat unreliable in ESRD patients d/t interactions between the A1c analyzing technique and high levels of urea in ESRD, reduced RBC life span, iron deficiency anemia, and EPO administration. HbA1c > 7.5% in ESRD patient may overestimate the extent of hyperglycemia in ESRD patients. ASSESSMENT: 02/22/20 * BSGs well-controlled yesterday (178, 141, 87, and 112 mg/dL) * Received 21 units of insulin (18 of which were basal) * BSG this morning of 334 mg/dL * Based on previous inpatient BSG data - patient is often > 300 mg/dL in the morning * Unclear reason for frequent elevated fasting BSGs * -Catherine phenomenon/Somogyi effect vs. bedtime snacking? (patient denies snacking in evening both as an inpatient and outpatient) * -Will plan to change to BID Lantus dosing tomorrow and utilize overnight checks this evening * Hemodialysis scheduled for today 02/21/20 * Laura is a 49 yo T1DM admitted with severe hyperglycemia and abdominal pain. She has a h/o gastroparesis and is known to the Pharmacy Glycemic service from previous admissions. She was started on an IV insulin infusion yesterday evening. The infusion was held this morning. * Transition patient to SQ basal + bolus insulin based on home doses and previous hospital data. PLAN FOR INPATIENT GLYCEMIC CONTROL: * Basal insulin * Lantus 20 units SC x 1 today * After further review of BSG data from prior admissions - consider BID dosing of Lantus in case of wearing off effect * Bolus insulin - change to Novolog and loosen parameters * Novolog per scale ACHS or Q6hrs while NPO * Goal Range: Low 120 mg/dL - High 160 mg/dL * Correction Factor: 40 mg/dL/unit * Nutritional / Prandial insulin per carb ratio of 1 unit per 13 grams CHO consumed * Will order overnight checks with same parameters at 00,04 to see if that provides any helpful information regarding significantly elevated fasting BSGs PLAN FOR DISCHARGE: * HbA1c of 8.8% is above goal * This value is potentially unreliable in the setting of ESRD, but based on reported outpatient BSGs and inpatient BSGs - patient clearly does not have good glycemic control as an outpatient * Reasonable to trial BID dosing of Lantus in effort to provide more consistent basal insulin (in case of wearing off effect) * Dosing of Lantus and scheduled Novolog to be determined * Patient states that she has a sliding scale of sorts - 5 additional units of Novolog if BSG is greater than 300 mg/dL * Reasonable to consider a more formal sliding scale such as: * -Blood Sugar 70-150 administer 0 units * -Blood Sugar 151-200 administer 1 units * -Blood Sugar 201-250 administer 2 units * -Blood Sugar 251-300 administer 3 units * -Blood Sugar 301-350 administer 4 units * -Blood Sugar 351-400 administer 5 units * -Blood Sugar >400 administer 6 units and call MD * Per adaptive physical educator note - Injection technique reviewed with patient and , which may also help improve glycemic management. * Ensure timely outpatient follow-up with PCP or diabetes provider for further dose titrations and disease management
--- NOTE | 2020-02-22 12:04 | Nephrology Progress Note ---
Date of Service February 22, 2020 Assessment & Plan (1) End-stage renal disease (ESRD): Patient with ESRD on HD TTS. Last HD was on 02/17. Electrolytes are stable; but w/ signficant HTN since admission, suggestive of mild vol OL. for short HD today to optimize bp; next HD on 02/22 per routine. cont current OP bp meds and pain control efforts as well (2) Hyperglycemia due to type 1 diabetes mellitus: Patient with difficult to control DM and frequent admissions for hyperglycemia. Blood sugars better now. No need for IV fluids as patient is ESRD. Continue insulin per primary team. Admission and Anticipated Discharge Date Admission Date: February 20, 2020 Subjective c/o abdominal pain and mild SOB; last HD was 02/17; no focal numbness/weakness, no N Review of Systems Review of Systems: All systems reviewed & are unremarkable except as noted in HPI & below Physical Exam Constitutional: well developed and well nourished Eyes: EOM intact bilaterally ENMT: Ears: no external ear abnormality Nose: no external nose abnormality Mouth: + dry oral mucous membranes Neck: no nuchal rigidity Respiratory: normal respiratory effort; no respiratory distress Auscultatio n: lungs clear to auscultation bilaterally and + diminished lung sounds Gastrointestinal (Abdomen): Inspection/Auscultation: normal bowel sounds Percussion/Palpation: abdomen soft; abdomen nontender Musculoskeletal: Extremities: strength 5/5 throughout Skin: no rashes, warm and dry Neurologic: teran, fluent speech, no tremor Results & Data ([facility]) Vital Signs (Past 12 Hours) Vital Signs Temp Pulse Pulse Pulse Resp BP Pulse Ox 02/22/20 10:52 36.9 C 70 16 145/65 H 95 02/22/20 07:11 37.0 C 69 16 171/73 H 97 02/22/20 04:37 37.1 C 73 20 155/72 H 97 02/22/20 00:31 62 Laboratory Results 02/20/20 12:28 02/22/20 08:43
[2020-02-22] MEDS: INSULIN ASPART 100 UNITS/ML 3 ML PEN SC SCH ×4 (12:28→23:55)
[2020-02-22 13:46] LABS: Hepatitis B Surface Ab Quant > 1000.00 mIU/mL (>or=10mIU/mL Immune); Hepatitis B Surface Antibody Immune
[2020-02-22] MEDS: HEPARIN SOD (PORCINE) 1000 UNIT/ML 10 ML VIAL IV SCH (13:50)
[2020-02-22 13:56] LABS: Hepatitis B Surface Antigen Neg (Neg)
[2020-02-22] MEDS: ONDANSETRON 4 MG OD TAB PO PRN (15:44)
[2020-02-22] MEDS: SERTRALINE HCL 50 MG TABLET PO SCH (20:13)
[2020-02-22] MEDS: ATORVASTATIN 40 MG TAB PO SCH (20:15)
[2020-02-22] MEDS: ARIPiprazole 5 MG TAB PO SCH (20:15)
[2020-02-22] MEDS: NEPHROCAPS PO SCH (20:17)
[2020-02-22] MEDS ORDERED: TRAZODONE HCL 50 MG TAB PO PRN (20:35)
[2020-02-23] MEDS: INSULIN ASPART 100 UNITS/ML 3 ML PEN SC SCH ×4 (03:45→18:16)
[2020-02-23 07:14] LABS: BUN Creatinine Ratio 7.3 (10-20); Calcium 8.8 mg/dl (8.5-10.1); Est GFR (African American) 15.2; Est GFR (Non-African American) 13.1; Magnesium 2.1 mg/dl (1.8-2.4); Phosphorus 4.5 mg/dl (2.5-4.9)
[2020-02-23] MEDS: FLUTICASONE/VILANTEROL 100/25MCG 14 PUFFS/INHALER INH SCH (07:35)
[2020-02-23] MEDS: lamoTRIgine 100 MG TAB PO SCH (07:36)
[2020-02-23] MEDS: MULTIVITAMIN TAB PO SCH (07:36)
[2020-02-23] MEDS: PANTOprazole 40 MG TAB PO SCH (07:37)
[2020-02-23] MEDS: CALCIUM ACETATE 667 MG CAP/TAB PO SCH ×3 (07:37→16:53)
[2020-02-23] MEDS: METOCLOPRAMIDE HCL 5 MG TABLET PO SCH (07:37)
[2020-02-23] MEDS: levETIRAcetam 500 MG TAB PO SCH (07:37)
[2020-02-23] MEDS: carvediloL 12.5 MG TAB PO SCH ×2 (07:38→16:54)
[2020-02-23] MEDS: SENNA 8.6 MG TAB PO SCH (07:38)
--- NOTE | 2020-02-23 08:43 | Pharmacy Report ---
Pharmacy Glycemic Short Note 2 - Date of Service February 23, 2020 - Glycemic Short BSG Results (Last 24 hours): 02/22/20 02/22/20 02/22/20 08:43 11:28 15:36 Glucose 346 H* POC Glucose 93 124 H 02/22/20 02/22/20 02/22/20 16:34 20:07 23:50 Glucose POC Glucose 127 H 89 123 H 02/23/20 02/23/20 02/23/20 03:40 06:16 07:50 Glucose 164 H POC Glucose 139 H 184 H OUTPATIENT ANTIDIABETIC REGIMEN: * Per patient: * Lantus 15 units SQ qHS * Novolog 10 units TID with meals + 5 additional units if BSG > 300 mg/dL * Unsure of compliance with insulin regimen secondary to questionable injection technique and reported missed doses if BSG within target range * A1c = 8.8% (01/04/20) * However, this result is likely somewhat unreliable in ESRD patients d/t interactions between the A1c analyzing technique and high levels of urea in ESRD, reduced RBC life span, iron deficiency anemia, and EPO administration. HbA1c > 7.5% in ESRD patient may overestimate the extent of hyperglycemia in ESRD patients. ASSESSMENT: 02/23/20 * BSGs well-controlled yesterday minus AM BSG (334, 93, 127, 89, 123, 139 mg/dL) * Patient received 33 units of insulin yesterday (20 units of basal and 13 of prandial/correctional) * Fasting BSG of 184 mg/dL - elevated relative to overnight checks (perhaps mild catherine phenomenon once again?) * Working with engineering [employer] to develop regimen for discharge Per [employer] note and follow-up discussion: * Patient/patient's has questionable injection technique (reusing pen needles, not rotating injection sites, etc.) * Education provided and may assist with improving future glycemic management * Outpatient regimen is bolus heavy, which is concerning given gastroparesis and inconsistent PO intake * Will plan to increase basal insulin dose and develop fixed-dose + sliding scale Novolog * Patient will refuse bolus insulin if BSG within target range * This makes it very difficult to adjust outpatient regimen, as we cannot be confident of what she is actually receiving on a daily basis. Seems very unlikely that the patient is actually taking 10 units of Novolog TID. Will be very important to stress taking fixed dose of Novolog with meals regardless of BSG to help prevent hyperglycemia throughout the day. (see recs below) 02/22/20 * BSGs well-controlled yesterday (178, 141, 87, and 112 mg/dL) * Received 21 units of insulin (18 of which were basal) * BSG this morning of 334 mg/dL * Based on previous inpatient BSG data - patient is often > 300 mg/dL in the morning * Unclear reason for frequent elevated fasting BSGs * -Catherine phenomenon/Somogyi effect vs. bedtime snacking? (patient denies snacking in evening both as an inpatient and outpatient) * -Will consider change to BID Lantus dosing tomorrow and utilize overnight checks this evening * Hemodialysis scheduled for today 02/21/20 * Laura is a 49 yo T1DM admitted with severe hyperglycemia and abdominal pain. She has a h/o gastroparesis and is known to the Pharmacy Glycemic service from previous admissions. She was started on an IV insulin infusion yesterday evening. The infusion was held this morning. * Transition patient to SQ basal + bolus insulin based on home doses and previous hospital data. PLAN FOR INPATIENT GLYCEMIC CONTROL: * Basal insulin * Will plan to stick with once daily basal insulin - will give 18 units with lunchtime to work back up to patient's HS dosing at home * Bolus insulin * Novolog per scale ACHS or Q6hrs while NPO * Goal Range: Low 120 mg/dL - High 160 mg/dL * Correction Factor: 40 mg/dL/unit * Nutritional / Prandial insulin per carb ratio of 1 unit per 13 grams CHO consumed PLAN FOR DISCHARGE: * HbA1c of 8.8% is above goal * This value is potentially unreliable in the setting of ESRD, but based on reported outpatient BSGs and inpatient BSGs - patient clearly does not have good glycemic control as an outpatient * At discharge, I suggest the following changes: * Increase basal insulin to 18 units SC HS (this needs to be taken daily regardless of BSG, as patient has DM type 1) * Consider fixed dose of Novolog 3 units TIDM (may hold if not eating meal) + the following sliding scale * -Blood Sugar 70-150 administer 0 units * -Blood Sugar 151-200 administer 1 units * -Blood Sugar 201-250 administer 2 units * -Blood Sugar 251-300 administer 3 units * -Blood Sugar 301-350 administer 4 units * -Blood Sugar 351-400 administer 5 units * -Blood Sugar >400 administer 6 units and call MD * Ensure timely outpatient follow-up with PCP or diabetes provider for further dose titrations and disease management
[2020-02-23] MEDS ORDERED: INSULIN GLARGINE SOLOSTAR 100 UNITS/ML 3 ML PEN SC SCH ×2 (09:00→12:00)
[2020-02-23] MEDS: TRAMADOL HCL 50 MG TABLET PO PRN ×2 (09:02→16:57)
[2020-02-23] MEDS ORDERED: SODIUM CHLORIDE 0.9% 1000ML 1,000 ML IV PRN (09:12)
[2020-02-23] MEDS ORDERED: HEPARIN SOD (PORCINE) 1000 UNIT/ML 10 ML VIAL IV ONE (09:12)
[2020-02-23] MEDS: HEPARIN SOD (PORCINE) 1000 UNIT/ML 10 ML VIAL IV SCH ×3 (11:10→12:53)
--- NOTE | 2020-02-23 13:08 | Hospitalist Progress Note ---
Date of Service February 23, 2020 Assessment & Plan (1) Hyperglycemia due to type 1 diabetes mellitus: (2) Acute hyperglycemia: - BSG in 500-600s -Unclear if she is injecting insulin correctly -Patient's boyfriend reportedly helps with injections/questionable if patient has some scar tissue and low absorption of insulin/or incorrect technique -Consult diabetic education for technique review -Glycemic pharmacist consulted for hyperglycemia management At discharge, I suggest the following changes: Increase basal insulin to 18 units SC HS (this needs to be taken daily regardless of BSG, as patient has DM type 1) Consider fixed dose of Novolog 3 units TIDM (may hold if not eating meal) + the following sliding scale -Blood Sugar 70-150 administer 0 units -Blood Sugar 151-200 administer 1 units -Blood Sugar 201-250 administer 2 units -Blood Sugar 251-300 administer 3 units -Blood Sugar 301-350 administer 4 units -Blood Sugar 351-400 administer 5 units -Blood Sugar >400 administer 6 units and call MD Ensure timely outpatient follow-up with PCP or diabetes provider for further dose titrations and disease management (3) Diabetic gastroparesis associated with type 1 diabetes mellitus: (4) Abdominal pain: -Patient presented with generalized abdominal pain, nonspecific, nausea and vomiting -Likely secondary to hyperglycemia -known chronic abdominal discomforts due to gastroparesis -CT abdomen pelvis unremarkable -Now seems to be better-controlled, no vomiting, and she tolerates food w/o difficulty, pt is also having normal BMs -Continue Reglan, gastroparesis diet (5) Acute hyponatremia: - in the setting of hyperglycemia -Continue to closely monitor -Should resolve with hyperglycemia treatment -resolved (6) CKD (chronic kidney disease) stage V requiring chronic dialysis: -Nephrology consulted for dialysis need -Her last HD prior to admission was on , she was due for dialysis on Saturday however potassium and volume status acceptable, therefore postponed - underwent HD on 02/22/20 for BP control and on 02/22 (7) Bipolar disorder: (8) Depression: - continue home medications - cont. to monitor (9) Seizure: - hx of seizure disorder - cont. home Keppra DVT ppx: SCDs Code: Full Admission and Anticipated Discharge Date Admission Date: February 20, 2020 Subjective Patient seen and examined while on dialysis. Currently she has no complaints. Discussed her new insulin regimen, she is in agreement. Also discussed PCP follow-up. Review of Systems Review of Systems: All systems reviewed & are unremarkable except as noted in HPI & below Physical Exam Physical Exam: Constitutional: Middle-age female lying in bed, currently on dialysis, in no acute distress Eyes: + anicteric sclerae, EOMI ENMT: external ear and nose normal, oropharynx normal Neck: trachea midline Respiratory: normal respiratory effort, lungs clear to auscultation Auscultation: no rales, no rhonchi and no wheezes Cardiovascular: Rate/Rhythm: regular rate and regular rhythm , + syst. murmur, Vessels: dorsalis pedis pulses present Extremities: no pedal edema Gastrointestinal (Abdomen): Inspection/Auscultation: normal bowel sounds; abdomen not distended Percussion/Palpation: abdomen soft, slightly tender, + bowel sounds Musculoskeletal: Head/Neck/Chest: normocephalic, head atraumatic and neck supple Extremities: no cyanosis and no clubbing Skin: no rashes, warm and dry no jaundice Neurologic: moves all extremities; no focal motor deficits Speech / Cognition: normal speech Psychiatric: Orientation: alert and oriented, answering questions appropriately Results & Data Results & Data ([facility]) Vital Signs (Past 12 Hours) Vital Signs Temp Pulse Pulse Resp BP BP Pulse Ox 02/23/20 12:40 65 113/62 02/23/20 12:20 64 124/67 02/23/20 12:06 65 02/23/20 12:00 65 123/71 02/23/20 11:40 66 118/67 02/23/20 11:20 64 117/66 02/23/20 11:00 65 99/63 L 02/23/20 10:40 65 119/37 L 02/23/20 10:20 66 153/69 H 02/23/20 10:05 37.0 C 68 02/23/20 07:32 36.7 C 67 18 124/61 97 02/23/20 03:31 36.5 C 63 18 151/79 H 96 Laboratory Results 02/23/20 02/23/20 02/23/20 Range/Units 11:55 07:50 06:16 Sodium 138 (136-145) mmol/L Potassium 4.0 (3.5-5.1) mmol/L Chloride 101 (98-107) mmol/L Carbon Dioxide 31 (21-32) mmol/L Anion Gap 6.0 (3-11) BUN 27 H D (7-18) mg/dl Creatinine 3.77 H D (0.6-1.2) mg/dl Est Cr Clr Drug Dosing 14.0 ml/min Est GFR ( Amer) 15.2 Est GFR (Non-Af Amer) 13.1 BUN/Creatinine Ratio 7.3 L (10-20) Glucose 164 H (70-99) mg/dl POC Glucose 136 H 184 H (70-99) mg/dl Calcium 8.8 (8.5-10.1) mg/dl Phosphorus 4.5 (2.5-4.9) mg/dl Magnesium 2.1 (1.8-2.4) mg/dl Hep Bs Antigen (Neg) Hep Bs Antibody Hep Bs Antibody, Quant (>or=10mIU/mL Immune) mIU/mL 02/23/20 02/22/20 02/22/20 Range/Units 03:40 23:50 20:07 Sodium (136-145) mmol/L Potassium (3.5-5.1) mmol/L Chloride (98-107) mmol/L Carbon Dioxide (21-32) mmol/L Anion Gap (3-11) BUN (7-18) mg/dl Creatinine (0.6-1.2) mg/dl Est Cr Clr Drug Dosing ml/min Est GFR ( Amer) Est GFR (Non-Af Amer) BUN/Creatinine Ratio (10-20) Glucose (70-99) mg/dl POC Glucose 139 H 123 H 89 (70-99) mg/dl Calcium (8.5-10.1) mg/dl Phosphorus (2.5-4.9) mg/dl Magnesium (1.8-2.4) mg/dl Hep Bs Antigen (Neg) Hep Bs Antibody Hep Bs Antibody, Quant (>or=10mIU/mL Immune) mIU/mL 02/22/20 02/22/20 02/22/20 Range/Units 16:34 15:36 12:42 Sodium (136-145) mmol/L Potassium (3.5-5.1) mmol/L Chloride (98-107) mmol/L Carbon Dioxide (21-32) mmol/L Anion Gap (3-11) BUN (7-18) mg/dl Creatinine (0.6-1.2) mg/dl Est Cr Clr Drug Dosing ml/min Est GFR ( Amer) Est GFR (Non-Af Amer) BUN/Creatinine Ratio (10-20) Glucose (70-99) mg/dl POC Glucose 127 H 124 H (70-99) mg/dl Calcium (8.5-10.1) mg/dl Phosphorus (2.5-4.9) mg/dl Magnesium (1.8-2.4) mg/dl Hep Bs Antigen Neg (Neg) Hep Bs Antibody Immune Hep Bs Antibody, Quant > 1000.00 (>or=10mIU/mL Immune) mIU/mL Medications Administered Current Inpatient Medications Acetaminophen (Acetaminophen 325 Mg Tab) 650 mg PO Q4H PRN PRN Reason: Pain or Fever Stop: 03/21/20 18:04 Albuterol (Albuterol Hfa 8 Gm Inhaler) 2 puffs INH QID PRN PRN Reason: Shortness Of Breath Stop: 03/21/20 19:34 Aripiprazole (Aripiprazole 5 Mg Tab) 5 mg PO HS SARAH Stop: 03/21/20 20:59 Last Admin: 02/22/20 20:15 Dose: 5 mg Documented by: Atorvastatin Calcium (Atorvastatin 40 Mg Tab) 40 mg PO HS SARAH Stop: 03/21/20 20:59 Last Admin: 02/22/20 20:15 Dose: 40 mg Documented by: Buspirone HCl (Buspirone 5 Mg Tab) 5 mg PO TID SARAH Stop: 03/21/20 20:59 Last Admin: 02/23/20 07:37 Dose: 5 mg Documented by: Calcium Acetate (Calcium Acetate 667 Mg Cap/Tab) 667 mg PO TIDM SARAH Stop: 03/22/20 07:59 Last Admin: 02/23/20 07:37 Dose: 667 mg Documented by: Carvedilol (Carvedilol 12.5 Mg Tab) 12.5 mg PO BIDM SARAH Stop: 03/22/20 03:39 Last Admin: 02/23/20 07:38 Dose: 12.5 mg Documented by: Dextrose (Dextrose 50% 50 Ml Syringe) 25 - 50 ml IV UD PRN; Protocol PRN Reason: Hypoglycemia Protocol Stop: 03/21/20 19:44 Last Admin: 02/21/20 03:33 Dose: 25 ml Documented by: Fluticasone/Vilanterol (Fluticasone/Vilanterol 100/25mcg 14 Puffs/Inhaler) 1 puffs INH DAILY [facility] Stop: 03/22/20 08:59 Last Admin: 02/23/20 07:35 Dose: 1 puffs Documented by: Glucagon (Glucagon For Inj 1 Mg Vial) 1 mg IM UD PRN; Protocol PRN Reason: Hypoglycemia Protocol Stop: 03/21/20 19:44 Glucose (Glucose 40% Gel 15 Gm Tube) 15 - 30 gm PO UD PRN; Protocol PRN Reason: Hypoglycemia Protocol Stop: 03/21/20 19:44 Glucose (Glucose 10 Tabs/Tube) 4 - 8 tabs PO UD PRN; Protocol PRN Reason: Hypoglycemia Protocol Stop: 03/21/20 19:44 Sodium Chloride (Nss 1000ml) 1,000 mls @ 0 mls/hr IV .Q0M PRN PRN Reason: For Hemodialysis Use ONLY Stop: 02/23/20 15:11 Insulin Aspart (Insulin Aspart 100 Units/Ml 3 Ml Pen) 0 units SC ACHS [facility] Stop: 03/23/20 11:29 Last Admin: 02/23/20 08:57 Dose: 4 units Documented by: Lamotrigine (Lamotrigine 100 Mg Tab) 100 mg PO DAILY [facility] Stop: 03/22/20 08:59 Last Admin: 02/23/20 07:36 Dose: 100 mg Documented by: Levetiracetam (Levetiracetam 500 Mg Tab) 500 mg PO BID SARAH Stop: 03/21/20 20:59 Last Admin: 02/23/20 07:37 Dose: 500 mg Documented by: Menthol (Cough Drop (Sugar Free) Ryan 24 Ryan/1 Box) 1 ryan BUCCAL Q6 PRN PRN Reason: Sore Throat Stop: 03/22/20 03:47 Metoclopramide HCl (Metoclopramide Hcl 5 Mg Tablet) 5 mg PO BID [facility] Stop: 03/21/20 20:59 Last Admin: 02/23/20 07:37 Dose: 5 mg Documented by: Miscellaneous (Carbohydrates For Hypoglycemia ) 15 - 30 gm PO UD PRN PRN Reason: Hypoglycemia Treatment Stop: 03/21/20 19:44 Last Admin: 02/21/20 16:18 Dose: 15 gm Documented by: Miscellaneous Information (Pharmacy Glycemic Mgmt Consult) 1 ea N/A UD PRN PRN Reason: Consult Stop: 03/21/20 18:58 Multivitamins (Multivitamin Tab) 1 tab PO QAM [facility] Stop: 03/22/20 08:59 Last Admin: 02/23/20 07:36 Dose: 1 tab Documented by: Ondansetron HCl (Ondansetron 4 Mg Od Tab) 4 mg PO Q8H PRN PRN Reason: Nausea Stop: 03/21/20 19:39 Last Admin: 02/22/20 15:44 Dose: 4 mg Documented by: Pantoprazole Sodium (Pantoprazole 40 Mg Tab) 40 mg PO QAM SARAH Stop: 03/22/20 08:59 Last Admin: 02/23/20 07:37 Dose: 40 mg Documented by: Polyethylene Glycol (Polyethylene (Miralax) 17 Gm Pack) 17 gm PO DAILY PRN PRN Reason: Constipation Stop: 03/21/20 18:04 Sennosides (Senna 8.6 Mg Tab) 8.6 mg PO DAILY SARAH Stop: 03/22/20 08:59 Last Admin: 02/23/20 07:38 Dose: 8.6 mg Documented by: Sertraline HCl (Sertraline Hcl 50 Mg Tablet) 150 mg PO HS SARAH Stop: 03/21/20 20:59 Last Admin: 02/22/20 20:13 Dose: 150 mg Documented by: Tramadol HCl (Tramadol Hcl 50 Mg Tablet) 50 mg PO Q8 PRN PRN Reason: Pain Stop: 03/21/20 20:27 Last Admin: 02/23/20 09:02 Dose: 50 mg Documented by: Trazodone HCl (Trazodone Hcl 50 Mg Tab) 75 mg PO HS PRN PRN Reason: Sleep Stop: 03/23/20 20:34 Last Admin: 02/22/20 21:03 Dose: 75 mg Documented by: Vitamin B Complex/Folic Acid (Nephrocaps) 1 cap PO QPM SARAH Stop: 03/21/20 20:59 Last Admin: 02/22/20 20:17 Dose: 1 cap Documented by: (1) Abdominal pain Abdominal location: generalized Qualified Code(s): R10.84 - Generalized abdominal pain
--- NOTE | 2020-02-23 14:01 | Discharge Summary ---
Date of Service February 23, 2020 Admission HPI Per Admitting Provider This is a complicated 49 y/o female with a PMH of type 1 DM, ESRD on HD, chronic diastolic CHF, prior CVAs, COPD, CAD, GERD, gastroparesis, chronic constipation, HTN, FADY, dyslipidemia, prior GIB, seizure disorder, and malnutrition who presents with hyperglycemia. She has noticed that her blood sugars were in the 600s, and she has been vomiting all day yesterday. Her boyfriend is at the bedside, and states that he helps her to inject insulin and reports that her blood sugar levels were up and down and they were not controlled despite insulin injections. Patient presented to ED with hyponatremia, in the setting of hyperglycemia, with blood glucose levels in 500s. She presented to [facility] on Saturday02[facility]17/20 with chest pain. At that time work-up was negative. She also mentioned to ER physician that she gets anxious and gets chest pain when she thinks about her daughter because she is missing her daughter. Patient was recently discharged from our hospital ([facility]), patient and her rayray yfriend state that at that time she was feeling well. Patient's boyfriend says that patient is under a lot of stress (because of her missing her children ) and he believes that that is why her blood sugar level is not well controlled. Denies that she has been confused at this time. Also denies any history of infectious process recently, such as fevers, chills, etc. , during last admission patient received IV antibiotics. Blood cultures were obtained in the ED though. Urinalysis did not show nitrates, leukoesterase, or bacteria. Patient also received 1 L of normal saline, and 6 units of IV insulin, Zofran and fentanyl. She presented with abdominal pain discomfort and nausea, therefore CT abdomen pelvis was done in the ED, which was unremarkable. Admission Exam Per Admitting Provider Constitutional: Middle-age female lying in bed, in no acute distress, but somewhat anxious Eyes: + anicteric sclerae ENMT: external ear and nose normal, oropharynx normal Neck: trachea midline Respiratory: normal respiratory effort, lungs clear to auscultation Auscultation: no rales, no rhonchi and no wheezes Cardiovascular: Rate/Rhythm: regular rate and regular rhythm , soft syst. murmur, Vessels: dorsalis pedis pulses present Extremities: no pedal edema Gastrointestinal (Abdomen): Inspection/Auscultation: normal bowel sounds; abdomen not distended Percussion/Palpation: abdomen soft, slightly tender, nondistended, + bowel sounds Musculoskeletal: Head/Neck/Chest: normocephalic, head atraumatic and neck supple Extremities: no cyanosis and no clubbing Skin: no rashes, warm and dry no jaundice RUE dialysis fistula with positive thrill Neurologic: moves all extremities; no focal motor deficits Speech / Cognition: normal speech Psychiatric: Orientation: alert and oriented, answering questions appropriately Principal Diagnosis Hyperglycemia in the setting of diabetes mellitus type 1 Hyponatremia in the setting of hyperglycemia Acute on chronic abdominal pain Anxiety/depression Discharge Exam Constitutional: Middle-age female lying in bed, currently on dialysis, in no acute distress Eyes: + anicteric sclerae, EOMI ENMT: external ear and nose normal, oropharynx normal Neck: trachea midline Respiratory: normal respiratory effort, lungs clear to auscultation Auscultation: no rales, no rhonchi and no wheezes Cardiovascular: Rate/Rhythm: regular rate and regular rhythm , + syst. murmur, Vessels: dorsalis pedis pulses present Extremities: no pedal edema Gastrointestinal (Abdomen): Inspection/Auscultation: normal bowel sounds; abdomen not distended Percussion/Palpation: abdomen soft, slightly tender, + bowel sounds Musculoskeletal: Head/Neck/Chest: normocephalic, head atraumatic and neck supple Extremities: no cyanosis and no clubbing Skin: no rashes, warm and dry no jaundice Neurologic: moves all extremities; no focal motor deficits Speech / Cognition: normal speech Psychiatric: Orientation: alert and oriented, answering questions appropriat [email or web address] Discharge Data Allergies Allergy/AdvReac Type Severity Reaction Status Date / Time Fish Containing Products Allergy Mild Hives Verified 02/20/20 16:04 latex Allergy Mild hives Verified 02/20/20 16:04 shellfish derived Allergy Unknown Verified 02/20/20 16:04 Consultations 02/20/20 15:43 ED Decision to Admit Stat 02/20/20 19:35 Consult Nephrology Routine 02/21/20 11:52 Consult Case Management - Discharge Planning Routine Ordered Studies 02/20/20 11:42 CT head/brain wo con Stat FINDINGS: No intra or extra-axial mass lesions are visualized. There is no CT evidence of acute cortical infarction. There is no evidence of midline shift. There is no acute hemorrhage. No calvarial fractures are visualized. There is an old infarct involving the left basal ganglia/external capsule. There is mild compensatory dilatation of the left lateral ventricle. There is no evidence of acute sinusitis. There is a left ocular implant IMPRESSION: No acute intracranial findings 02/20/20 11:45 CT abd pelvis wo con Stat IMPRESSION: 1. No evidence of bowel obstruction. No evidence of free air 2. No evidence of acute diverticulitis 3. Borderline colonic wall thickening 4. Surgically absent gallbladder appendix 5. No renal, ureteral, or bladder calculi identified Hospital Course (1) Hyperglycemia due to type 1 diabetes mellitus: (2) Acute hyperglycemia: - BSG in 500-600s -Unclear if she is injecting insulin correctly -Patient's boyfriend reportedly helps with injections/questionable if patient has some scar tissue and low absorption of insulin/or incorrect technique -Consult diabetic education for technique review -Glycemic pharmacist consulted for hyperglycemia management At discharge, I suggest the following changes: Increase basal insulin to 18 units SC HS (this needs to be taken daily regardless of BSG, as patient has DM type 1) Consider fixed dose of Novolog 3 units TIDM (may hold if not eating meal) + the following sliding scale -Blood Sugar 70-150 administer 0 units -Blood Sugar 151-200 administer 1 units -Blood Sugar 201-250 administer 2 units -Blood Sugar 251-300 administer 3 units -Blood Sugar 301-350 administer 4 units -Blood Sugar 351-400 administer 5 units -Blood Sugar >400 administer 6 units and call MD Ensure timely outpatient follow-up with PCP or diabetes provider for further dose titrations and disease management (3) Diabetic gastroparesis associated with type 1 diabetes mellitus: (4) Abdominal pain: -Patient presented with generalized abdominal pain, nonspecific, nausea and vomiting -Likely secondary to hyperglycemia -known chronic abdominal discomforts due to gastroparesis -CT abdomen pelvis unremarkable -Now seems to be better-controlled, no vomiting, and she tolerates food w/o difficulty, pt is also having normal BMs -Continue Reglan, gastroparesis diet (5) Acute hyponatremia: - in the setting of hyperglycemia -Continue to closely monitor -Should resolve with hyperglycemia treatment -resolved (6) CKD (chronic kidney disease) stage V requiring chronic dialysis: -Nephrology consulted for dialysis need -Her last HD prior to admission was on , she was due for dialysis on Saturday however potassium and volume status acceptable, therefore postponed - underwent HD on 02/22/20 for BP control and on 02/22 (7) Bipolar disorder: (8) Depression: - continue home medications - cont. to monitor (9) Seizure: - hx of seizure disorder - cont. home Keppra Total Time Total Time Spent Total Time Spent (In Minutes): 40 Total Time Includes: Examination of the Patient, Discharge Planning, Medication Reconciliation and Communication With Other Providers Discharge Plan Discharge Items Patient Disposition: Home - Self-Care Reason For Visit: HYPERGLYCEMIA Discharge Diagnosis: Hyperglycemia in the setting of diabetes mellitus type 1 Hyponatremia in the setting of hyperglycemia Acute on chronic abdominal pain Anxiety/depression Condition on Discharge: Good Activity: Per Instructions section Non-emergency contact: Primary Care Provider Call non-emergency contact if: you have any medication questions and your symp toms worsen Follow-up/Referrals: Mitchel Santo MD [Primary Care Provider] - 02/29/20 10:20 am (Date & Time 02/29/2020 10:20 AM Provider Harley Arenas Jr., Department [facility] ) Diet: Carb Count or DM1 and Heart Healthy Addtl Attending Provider Instructions: Follow-up with your primary care doctor, appointment was scheduled for you for February 28. Follow instructions for insulin injection technique provided by licensed esthetician. Your insulin dosages were changed accordingly please review below. Recommend to use sliding scale below please review this with your primary care doctor. Your primary care doctor may also refer you to inbound customer service agent (production specialist) for more close management. Insulin changes: Increase basal insulin to 18 units SC HS (this needs to be taken daily regardless of BSG, as patient has DM type 1) Fixed dose of Novolog 3 units 3 times a day with meals (may hold if not eating meal) + the following sliding scale -Blood Sugar 70-150 administer 0 units -Blood Sugar 151-200 administer 1 units -Blood Sugar 201-250 administer 2 units -Blood Sugar 251-300 administer 3 units -Blood Sugar 301-350 administer 4 units -Blood Sugar 351-400 administer 5 units -Blood Sugar >400 administer 6 units and call MD Pending Studies at Discharge: No Stand-Alone Forms: [employer], Smoking Cessation Medications and DC Order Prescriptions: Continued aripiprazole [Abilify] 5 mg tablet 5 mg PO HS RF: 0 atorvastatin [Lipitor] 40 mg tablet 40 mg PO HS RF: 0 sertraline [Zoloft] 100 mg tablet 150 mg PO HS RF: 0 calcium acetate(phosphat bind) 667 mg capsule 667 mg PO TIDM RF: 0 tramadol [Ultram] 50 mg tablet 50 mg PO Q8 PRN (Reason: Pain) RF: 0 trazodone 150 mg tablet 75 mg PO HS PRN (Reason: Sleep) RF: 0 docusate sodium 100 mg Tablet 100 mg PO DAILY RF: 0 acetaminophen [Tylenol] 325 mg Capsule 325 mg PO Q4 PRN (Reason: Pain) RF: 0 buspirone 5 mg tablet 5 mg PO TID RF: 0 temazepam [Restoril] 15 mg capsule 15 mg PO HS RF: 0 hydroxyzine HCl 25 mg tablet 25 mg PO TID PRN (Reason: Anxiety) RF: 0 albuterol sulfate 90 mcg/actuation Hfa Aerosol Inhaler 2 inh INHALATION QID PRN (Reason: Shortness Of Breath) RF: 0 multivitamin Tablet 1 tab PO QAM RF: 0 carvedilol [Coreg] 25 mg Tablet 12.5 mg PO BIDM RF: 0 polyethylene glycol 3350 [Miralax] 17 gram Powder In Packet 17 g PO BID PRN (Reason: Constipation) RF: 0 pantoprazole [Protonix] 40 mg Tablet,Delayed Release (Dr/Ec) 40 mg PO QAM RF: 0 [place] Caps 1 mg Capsule 1 cap PO QPM RF: 0 bisacodyl 5 mg Tablet 10 mg PO DAILY PRN (Reason: Constipation) RF: 0 levetiracetam [Keppra] 500 mg tablet 500 mg PO BID RF: 0 lorazepam 0.5 mg Tablet 0.5 mg PO BID PRN (Reason: Anxiety) RF: 0 Breo Ellipta 100-25 mcg/dose blister with device 1 inh INHALATION DAILY RF: 0 (DME) Ketone Urine Test Strip See Rx Instructions .ROUTE .MEDSUPPLY Qty: 100 RF: 1 Linzess 145 mcg capsule 145 mcg PO QAM Qty: 30 RF: 1 melatonin 3 mg Tablet 3 mg PO HS RF: 0 gabapentin 100 mg capsule 100 mg PO DAILY RF: 0 sennosides [senna] 8.6 mg tablet 8.6 mg PO DAILY RF: 0 ondansetron HCl 4 mg tablet 4 mg PO Q8H PRN (Reason: Nausea) RF: 0 metoclopramide HCl 5 mg tablet 5 mg PO BID RF: 0 ergocalciferol (vitamin D2) 1,250 mcg (50,000 unit) capsule 50,000 unit PO WK RF: 0 lactulose 10 gram/15 mL solution 15 ml PO BID PRN (Reason: Constipation) RF: 0 lamotrigine 100 mg Tablet 100 mg PO DAILY RF: 0 Changed Lantus Solostar U-100 Insulin 100 unit/mL (3 mL) insulin pen 18 unit subcut PM Qty: 0 RF: 0 insulin aspart U-100 [Novolog U-100 Insulin aspart] 100 unit/mL solution 3 unit subcut TIDM Qty: 0 RF: 0 Discharge Orders: Discharge Order (Routine); Ordered 02/23/20 Ordered By: Sujit Musa Admission Data Admit Date/Time: 02/20/20 18:06 Attending Provider: Sujit Musa Admit Provider: Sujit Musa Primary Care Provider: Mitchel Santo Other Providers: Sujit Musa ; Stanley Donaldson ; [facility]
--- NOTE | 2020-02-23 17:43 | Dialysis Progress Note ---
Date of Service February 23, 2020 Assessment & Plan (1) End-stage renal disease (ESRD): Patient with ESRD on HD TTS. Last HD was on 02/17 before 02/20 admission. Electrolytes are stable; but w/ signficant HTN since admission so yesterday had extra dialysis to manage mild vol OL. today for routine HD per OP routine. cont current OP bp meds and pain control efforts as well (2) Hyperglycemia due to type 1 diabetes mellitus: Patient with difficult to control DM and frequent admissions for hyperglycemia. Blood sugars better now. No need for IV fluids as patient is ESRD. Continue insulin per primary team. ongoing adjustment sin process Admission and Anticipated Discharge Date Admission Date: February 20, 2020 Subjective seen on dialysis this am approx 1030; had some transient distal L AVF arm pain w/ cannulation but declined ot have needles adjusted. abd pain improving; no sob. family at bedside Review of Systems Review of Systems: All systems reviewed & are unremarkable except as noted in HPI & below Physical Exam Constitutional: well developed and well nourished Eyes: EOM intact bilaterally ENMT: Ears: no external ear abnormality Nose: no external nose abnormality Mouth: + dry oral mucous membranes Neck: no nuchal rigidity Respiratory: normal respiratory effort; no respiratory distress Auscultation: lungs clear to auscultation bilaterally and + diminished lung sounds Gastrointestinal (Abdomen): Inspection/Auscultation: normal bowel sounds Percussion/Palpation: abdomen soft; abdomen nontender Musculoskeletal: Extremities: strength 5/5 throughout Skin: no rashes, warm and dry Neurologic: teran ,psychomotor slowing as at baseline, no tremor Psychiatric: Orientation: alert and oriented x 3 Motor Behavior: + psychomotor retardation Affect: + flat affect Results & Data ([facility]) Vital Signs (Past 12 Hours) Vital Signs Temp Pulse Pulse Pulse Resp BP BP 02/23/20 16:35 76 02/23/20 16:20 37.2 C 73 66 18 143/70 H 02/23/20 14:10 37.2 C 66 143/70 H 02/23/20 13:20 66 114/83 02/23/20 13:00 64 114/63 02/23/20 12:40 65 113/62 02/23/20 12:20 64 124/67 02/23/20 12:06 65 02/23/20 12:00 65 123/71 02/23/20 11:40 66 118/67 02/23/20 11:20 64 117/66 02/23/20 11:00 65 99/63 L 02/23/20 10:40 65 119/37 L 02/23/20 10:20 66 153/69 H 02/23/20 10:05 37.0 C 68 02/23/20 07:32 36.7 C 67 18 124/61 Pulse Ox 02/23/20 16:35 02/23/20 16:20 97 02/23/20 14:10 02/23/20 13:20 02/23/20 13:00 02/23/20 12:40 02/23/20 12:20 02/23/20 12:06 02/23/20 12:00 02/23/20 11:40 02/23/20 11:20 02/23/20 11:00 02/23/20 10:40 02/23/20 10:20 02/23/20 10:05 02/23/20 07:32 97 Laboratory Results 02/20/20 12:28 02/23/20 06:16
[2020-02-24] MEDS ORDERED: INSULIN GLARGINE SOLOSTAR 100 UNITS/ML 3 ML PEN SC SCH (21:00)
== END 2020-02-23 18:57 | disposition home health service (06) ==
LOC: ED 10:30 → INTOOBSV 18:06 → 2E 18:06 → 2W 02-21 18:48

== ENCOUNTER 2020-03-21 19:37 | Inpatient (IN) ==
[2020-03-21 20:39] LABS: Hematocrit (blood only) 48.9 % (37-47); Hemoglobin 16.4 g/dL (12.0-16.0); Mean Corpuscular Hemoglobin 30.2 pg (25-34); Mean Corpuscular Hgb Conc 33.5 g/dL (32-36); Mean Corpuscular Volume 90.1 fL (80-100); Mean Platelet Volume 10.2 fL (7.4-10.4); Platelet Count 290 K/uL (130-400); RDW Coefficient of Variation 14.1 % (11.5-14.5); RDW Standard Deviation 45.8 fL (36.4-46.3); Red Blood Count 5.43 M/uL (4.2-5.4); White Blood Count 4.78 K/uL (4.8-10.8)
[2020-03-21 21:23] LABS: Alanine Aminotransferase 21 U/L (12-78); Albumin Globulin Ratio 0.9 (0.9-2); Albumin Level 4.3 gm/dl (3.4-5.0); Alkaline Phosphatase 89 U/L (45-117); Aspartate Aminotransferase 19 U/L (15-37); BUN Creatinine Ratio 5.7 (10-20); Bilirubin,Total 0.5 mg/dl (0.2-1); Blood Urea Nitrogen 52 mg/dl (7-18); Calcium 10.7 mg/dl (8.5-10.1); Carbon Dioxide 29 mmol/L (21-32); Chloride 90 mmol/L (98-107); Est GFR (African American) 5.2; Est GFR (Non-African American) 4.5; Globulin 4.9 gm/dl (2.5-4.0); Glucose 175 mg/dl (70-99); Lipase 58 U/L (73-393); Potassium 4.9 mmol/L (3.5-5.1); Sodium 129 mmol/L (136-145); Total Protein 9.2 gm/dl (6.4-8.2)
[2020-03-21 21:25] LABS: ALC (manual) 2.28 K/uL (1.2-3.4); ANC (manual) 1.84 K/uL (1.4-6.5); Basophils # (manual) 0.12 K/uL (0-0.2); Basophils % (manual) 2.6 %; Eosinophils # (manual) 0.12 K/uL (0-0.5); Eosinophils % (manual) 2.6 %; Large Granular Lymph # (manua 0.62 K/uL; Lymphocytes # (manual) 1.58 K/uL (1.2-3.4); Monocytes # (manual) 0.42 K/uL (0.11-0.59); Monocytes % (manual) 8.7 %; Neutrophils # (manual) 1.84 K/uL (1.4-6.5); Neutrophils % (manual) 38.4 %; RBC Morphology Unremarkable; Reactive Lymphocytes # (manual) 0.08 K/uL; Reactive Lymphocytes % (manual) 1.7 %
[2020-03-21] MEDS ORDERED: SODIUM CHLORIDE 0.9% 1000ML 250 ML IV ONE (21:34)
[2020-03-21] MEDS ORDERED: fentaNYL citrate 100 MCG/2 ML VIAL IV STA (21:34)
[2020-03-21] MEDS ORDERED: ACETAMINOPHEN 1,000 MG/100 ML VIAL IV STA (21:34)
[2020-03-21] MEDS ORDERED: ONDANSETRON INJ 2 MG/ML 2 ML VIAL IV STA (21:55)
[2020-03-21] MEDS ORDERED: ONDANSETRON INJ 2 MG/ML 2 ML VIAL ONE (21:57)
--- NOTE | 2020-03-21 22:14 | Emergency Department Note ---
History of Present Illness General Chief complaint: Abdominal Pain Stated complaint: ABD PAIN Time Seen by Provider: 03/21/20 21:11 Source: patient Mode of arrival: ambulatory Limitations: no limitations History of Present Illness Provider complaint: Abdominal pain, dysuria Onset (ago): week(s) 1 Location: abdomen Radiation: back Severity: moderate Pain Consistency: + constant Maximum Pain Intensity: 8 Current Pain Intensity: 8 Relieved By: + none Exacerbated By: + movement Associated symptoms: + headaches, + loss of appetite, + malaise and + nausea/vomiting; no chest pain, no shortness of breath and no weakness Treatments prior to arrival: none This is a 49-year-old female presents the emergency department planing of 1 week of lower abdominal pain radiating into her low back. Patient has history of c hronic kidney disease and does undergo dialysis weekly, states she has been compliant with this and not missed any treatments. States her last hemodialysis was on Saturday as scheduled and she is due again tomorrow. Patient states she does still make urine and has noticed a stronger odor to her urine over the last week with the pain. Patient also admits to urinary urgency and frequency. Patient denies fevers or chills, however admits to decreased appetite, nausea, headaches, and fatigue. Patient denies any other change in her medications or diet. Patient denies any change in her bowel movements. Patient denies any history of urinary tract infections. Pt seen during a time of high acuity and national emergency pandemic while wearing PPE. Home Medications Home Medications Medication Instructions Recorded Confirmed Type Stanton Caps 1 cap PO QPM 12/19/18 03/21/20 History carvedilol [Coreg] 12.5 mg PO BIDM 12/19/18 03/21/20 History multivitamin 1 tab PO QAM 12/19/18 03/21/20 History pantoprazole [Protonix] 40 mg PO QAM 12/19/18 03/21/20 History polyethylene glycol 3350 [Miralax] 17 g PO BID PRN 12/19/18 03/21/20 History aripiprazole [Abilify] 5 mg PO HS 05/20/19 03/21/20 History levetiracetam [Keppra] 500 mg PO BID 06/20/19 03/21/20 History atorvastatin [Lipitor] 40 mg PO HS 08/01/19 03/21/20 History sertraline [Zoloft] 150 mg PO HS 08/01/19 03/21/20 History calcium acetate(phosphat bind) 667 mg PO TIDM 11/09/19 03/21/20 History Breo Ellipta 1 inh INHALATION QAM 01/03/20 03/21/20 History lorazepam 0.5 mg PO BID PRN 01/03/20 03/21/20 History Ketone Urine Test #100 ea 01/06/20 02/20/20 Rx Linzess 145 mcg PO QAM #30 cap 01/07/20 03/21/20 Rx ergocalciferol (vitamin D2) 50,000 unit PO WK 01/29/20 03/21/20 History gabapentin 100 mg PO DAILY 01/29/20 03/21/20 History lactulose 15 ml PO BID PRN 01/29/20 03/21/20 History melatonin 3 mg PO HS 01/29/20 03/21/20 History metoclopramide HCl 5 mg PO BID 01/29/20 03/21/20 History sennosides [senna] 8.6 mg PO DAILY 01/29/20 03/21/20 History lamotrigine 100 mg PO DAILY 01/30/20 03/21/20 History acetaminophen [Tylenol] 325 mg PO Q4 PRN 02/20/20 03/21/20 History albuterol sulfate 2 inh INHALATION QID PRN 02/20/20 03/21/20 History buspirone 5 mg PO TID 02/20/20 03/21/20 History docusate sodium 100 mg PO DAILY 02/20/20 03/21/20 History hydroxyzine HCl 25 mg PO TID PRN 02/20/20 03/21/20 History temazepam [Restoril] 15 mg PO HS 02/20/20 03/21/20 History tramadol [Ultram] 50 mg PO Q8 PRN 02/20/20 03/21/20 History trazodone 75 mg PO HS PRN 02/20/20 03/21/20 History Lantus Solostar U-100 Insulin 18 unit SUBCUT PM #0 ml 02/23/20 03/21/20 Rx insulin aspart U-100 [Novolog 3 unit SUBCUT TIDM #0 ml 02/23/20 03/21/20 Rx U-100 Insulin aspart] trimethobenzamide 300 mg PO TID PRN 03/21/20 03/21/20 History Allergies Allergy/AdvReac Type Severity Reaction Status Date / Time Fish Containing Products Allergy Mild Hives Verified 03/21/20 22:31 latex Allergy Mild hives Verified 03/21/20 22:31 shellfish derived Allergy Mild Hives Verified 03/21/20 22:31 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 history of CVA in 2018 Residual R sided weakness Depression Diabetic gastroparesis Diastolic heart failure DM type 1 (diabetes mellitus, type 1) ESRD (end stage renal disease) on dialysis GERD (gastroesophageal reflux disease) History of GI bleed Hyperlipidemia Hypertension Seizure Surgical History Hx of appendectomy Hx of cholecystectomy Hx of tubal ligation Family History Mother Coronary heart disease Hypertension Father Coronary heart disease Other No significant family history Social History Smoking Status: Never smoker Tobacco Type: Cigarettes Second Hand Exposure: No; Hx Alcohol Use: No Hx Substance Use: No Preferred Language: [place]ar[place] Communication Ability: Effective Communication Ability Comment: Pt is blind Inside Sales Person Required: No Beliefs That Will Affect Care: None marital status: Single Current Living Situation: Spouse current occupational status: unemployed Other Information That Helps Us Care for You: No Feels Safe at Home: Yes Safety Concerns: Feels Safe At This Time Assistive Devices: None Review of Systems See HPI for pertinent positives & negatives. and A total of 10 systems reviewed and were otherwise negative Physical Exam Vital Signs Vital Signs - 24 hr 03/21/20 19:44 03/21/20 20:22 03/21/20 22:06 Temperature 36.9 C Temperature Source Oral Pulse Rate 105 H Pulse Rate [Right Finger] 92 H 98 H Respiratory Rate 18 20 14 Respiratory Effort / Characteristics Non-Labored Spontaneous Respiratory Depth Normal Blood Pressure 130/69 Blood Pressure [Left Arm] 148/120 H 175/90 H Blood Pressure Mean 89 Blood Pressure Mean [Left Arm] 129 118 Blood Pressure Position Sitting Blood Pressure Position [Left Arm] Lying Pulse Oximetry 100 97 100 Oxygen Delivery Method Room Air Room Air Room Air Sepsis Recent Fever Within 48 Hours No Sepsis New/Unexplained Change in Mental Status No Sepsis Action Taken by Nursing No Action Required 03/22/20 00:00 03/22/20 01:41 Temperature Temperature Source Pulse Rate Pulse Rate [Right Finger] 84 81 Respiratory Rate 16 16 Respiratory Effort / Characteristics Respiratory Depth Normal Normal Blood Pressure Blood Pressure [Left Arm] 114/66 151/82 H Blood Pressure Mean Blood Pressure Mean [Left Arm] 82 105 Blood Pressure Position Blood Pressure Position [Left Arm] Lying Lying Pulse Oximetry 100 96 Oxygen Delivery Method Room Air Room Air Sepsis Recent Fever Within 48 Hours Sepsis New/Unexplained Change in Mental Status Sepsis Action Taken by Nursing GENERAL: alert, uncomfortable appearing, well nourished, mild distress, non- toxic, tearful EYE EXAM: normal conjunctiva, PERRL and EOM's grossly intact OROPHARYNX: no exudate, no erythema, lips, buccal mucosa, and tongue normal and mucous membranes are moist NECK: supple, no nuchal rigidity, no adenopathy, non-tender LUNGS: Clear to auscultation. Normal chest wall mechanics, no w/r/r HEART: no murmurs, S1 normal and S2 normal ABDOMEN: abdomen soft, tenderness with palpation over the lower abdomen bilaterally, normo-active bowel sounds, no masses, no rebound or guarding. BACK: Back is symmetrical on inspection and there is no deformity, no midline tenderness, no CVA tenderness. SKIN: no rashes and no bruising UPPER EXTREMITIES: upper extremities are grossly normal. FROM, nml pulses b/l. Fistula noted in the proximal right upper extremity, positive thrill and bruit. LOWER EXTREMITIES: No pitting edema. FROM, nml pulses b/l. NEURO EXAM: Normal sensorium, cranial nerves II-XII grossly intact, normal speech, no gross weakness of arms, no gross weakness of legs. Gross sensation intact. Course Course 2214: Patient complaining of nausea again, dry heaving. Zofran ordered. 2256: Patient still complaining of nausea and pain. Discussed blood work so far. 0002: Patient resting comfortably, awaiting urine specimen for testing. 0105: Updated on CT results, patient resting comfortably, vital signs stable. 0130: Patient states still having pain, she is not comfortable going home. Patient still unable to provide a urine specimen. Bladder scan only showed 20 mL's in the bladder. 0140: Case discussed with Dr. Altamirano for additional evaluation. Administered Medications Aripiprazole (Aripiprazole 5 Mg Tab) 5 mg PO HS SARAH Stop: 04/21/20 20:59 Last Admin: 03/22/20 20:06 Dose: 5 mg Documented by: [id number] Atorvastatin Calcium (Atorvastatin 40 Mg Tab) 40 mg PO HS SARAH Stop: 04/21/20 20:59 Last Admin: 03/22/20 20:04 Dose: 40 mg Documented by: [id number] Buspirone HCl (Buspirone 5 Mg Tab) 5 mg PO TID SARAH Stop: 04/21/20 08:59 Last Admin: 03/22/20 20:07 Dose: 5 mg Documented by: [id number] Admin: 03/22/20 16:03 Dose: 5 mg Documented by: [id number] Admin: 03/22/20 08:19 Dose: 5 mg Documented by: [id number] Calcium Acetate (Calcium Acetate 667 Mg Cap/Tab) 667 mg PO TIDM SARAH Stop: 04/21/20 07:59 Last Admin: 03/22/20 16:04 Dose: 667 mg Documented by: [id number] Admin: 03/22/20 12:12 Dose: Not Given Documented by: [id number] Admin: 03/22/20 08:21 Dose: 667 mg Documented by: [id number] Carvedilol (Carvedilol 12.5 Mg Tab) 12.5 mg PO BIDM SARAH Stop: 04/21/20 07:59 Last Admin: 03/22/20 16:04 Dose: Not Given Documented by: [id number] Admin: 03/22/20 08:20 Dose: 12.5 mg Documented by: [id number] Docusate Sodium (Docusate Sodium 100 Mg Cap) 100 mg PO DAILY SARAH Stop: 04/21/20 08:59 Last Admin: 03/22/20 08:20 Dose: 100 mg Documented by: [id number] Fluticasone/Vilanterol (Fluticasone/Vilanterol 100/25mcg 14 Puffs/Inhaler) 1 puffs INH QAM [facility] Stop: 04/21/20 08:59 Last Admin: 03/22/20 08:19 Dose: 1 puffs Documented by: [id number] Gabapentin (Gabapentin 100 Mg Cap) 100 mg PO DAILY [facility] Stop: 04/21/20 08:59 Last Admin: 03/22/20 08:19 Dose: 100 mg Documented by: [id number] Heparin Sodium (Porcine) (Heparin Sod 5,000 Unit/0.5 Ml Vial) 5,000 units SQ Q8 [facility] Stop: 04/21/20 05:59 Last Admin: 03/22/20 20:48 Dose: 5,000 units Documented by: [id number] Cosigned by: [id number] Admin: 03/22/20 14:00 Dose: Not Given Documented by: [id number] Admin: 03/22/20 06:04 Dose: 5,000 units Documented by: [id number] Cosigned by: [id number] Promethazine HCl 6.25 mg/ (Sodium Chloride) 50.25 mls @ 201 mls/hr IV Q6H PRN PRN Reason: Nausea And Vomiting Stop: 04/21/20 04:02 Last Infusion: 03/22/20 08:48 Dose: 0 mls/hr Documented by: [id number] Admin: 03/22/20 08:33 Dose: 201 mls/hr Documented by: [id number] Insulin Aspart (Insulin Aspart 100 Units/Ml 3 Ml Pen) 0 units SC ACHS [facility] Stop: 04/21/20 04:02 Last Admin: 03/22/20 20:16 Dose: Not Given Documented by: [id number] Cosigned by: [id number] Admin: 03/22/20 18:13 Dose: Not Given Documented by: [id number] Cosigned by: [id number] Admin: 03/22/20 12:56 Dose: Not Given Documented by: [id number] Cosigned by: [id number] Admin: 03/22/20 08:27 Dose: Not Given Documented by: [id number] Cosigned by: [id number] Admin: 03/22/20 04:59 Dose: Not Given Documented by: [id number] Cosigned by: [id number] Insulin Glargine (Insulin Glargine Solostar 100 Units/Ml 3 Ml Pen) 5 units SC DAILY [facility] Stop: 04/21/20 08:59 Last Admin: 03/22/20 08:26 Dose: 5 units Documented by: [id number] Cosigned by: [id number] Lamotrigine (Lamotrigine 100 Mg Tab) 100 mg PO DAILY [facility] Stop: 04/21/20 08:59 Last Admin: 03/22/20 08:19 Dose: 100 mg Documented by: [id number] Levetiracetam (Levetiracetam 500 Mg Tab) 500 mg PO BID [facility] Stop: 04/21/20 08:59 Last Admin: 03/22/20 20:06 Dose: 500 mg Documented by: [id number] Admin: 03/22/20 08:21 Dose: 500 mg Documented by: [id number] Melatonin (Melatonin 3 Mg Tab) 3 mg PO HS [facility] Stop: 04/21/20 20:59 Last Admin: 03/22/20 20:05 Dose: 3 mg Documented by: [id number] Metoclopramide HCl (Metoclopramide Hcl 5 Mg Tablet) 5 mg PO BID [facility] Stop: 04/21/20 08:59 Last Admin: 03/22/20 20:05 Dose: 5 mg Documented by: [id number] Admin: 03/22/20 08:21 Dose: 5 mg Documented by: [id number] Miconazole Nitrate (Miconazole Nitrate 2% Cr 30 Gm Tube) 1 appln EXT BID [facility] Stop: 04/21/20 14:19 Last Admin: 03/22/20 20:52 Dose: 1 appln Documented by: [id number] Admin: 03/22/20 16:03 Dose: 1 appln Documented by: [id number] Miconazole Nitrate (Miconazole Nitrate-7 (100 Mg Ea Supp) Box) 1 supp PV HS [facility] Stop: 03/29/20 20:59 Last Admin: 03/22/20 20:53 Dose: 1 supp Documented by: [id number] Miscellaneous (Linzess~Order Awaiting Action) 1 ea N/A QS [facility] Stop: 04/21/20 07:59 Last Admin: 03/23/20 00:13 Dose: Not Given Documented by: [id number] Admin: 03/22/20 16:03 Dose: Not Given Documented by: [id number] Admin: 03/22/20 08:22 Dose: Not Given Documented by: [id number] [facility]ivitamins ([facility]ivitamin Tab) [facility] Stop: 04/21/20 08:59 Last Admin: 03/22/20 08:21 Dose: 1 tab Documented by: [id number] Pantoprazole Sodium (Pantoprazole 40 Mg Tab) 40 mg PO QAM [facility] Stop: 04/21/20 08:59 Last Admin: 03/22/20 08:20 Dose: 40 mg Documented by: [id number] Sennosides (Senna 8.6 Mg Tab) 8.6 mg PO DAILY [facility] Stop: 04/21/20 08:59 Last Admin: 03/22/20 08:20 Dose: 8.6 mg Documented by: [id number] Sertraline HCl (Sertraline Hcl 50 Mg Tablet) 150 mg PO [facility] Stop: 04/21/20 20:59 Last Admin: 03/22/20 20:09 Dose: 150 mg Documented by: [id number] Temazepam (Temazepam 15 Mg Capsule) 15 mg PO [facility] Stop: 04/21/20 20:59 Last Admin: 03/22/20 20:10 Dose: 15 mg Documented by: [id number] Tramadol HCl (Tramadol Hcl 50 Mg Tablet) 25 - 50 mg PO QID PRN PRN Reason: Pain Stop: 04/21/20 02:38 Last Admin: 03/22/20 10:29 Dose: 50 mg Documented by: [id number] Vitamin B Complex/Folic Acid (Nephrocaps) 1 cap PO QPM [facility] Stop: 04/21/20 20:59 Last Admin: 03/22/20 20:08 Dose: Not Given Documented by: [id number] Discontinued Medications Fentanyl Citrate (Fentanyl Citrate 100 Mcg/2 Ml Vial) 50 mcg IV NOW STA Stop: 03/21/20 21:35 Last Admin: 03/21/20 22:02 Dose: 50 mcg Documented by: [id number] Fentanyl Citrate (Fentanyl Citrate 100 Mcg/2 Ml Vial) 50 mcg IV NOW STA Stop: 03/22/20 01:34 Last Admin: 03/22/20 01:39 Dose: 50 mcg Documented by: [id number] Heparin Sodium (Porcine) (Heparin Sod (Porcine) 1000 Unit/Ml 10 Ml Vial) 1,000 units IV ONE ONE Stop: 03/22/20 09:38 Last Admin: 03/22/20 10:52 Dose: Not Given Documented by: [id number] Heparin Sodium (Porcine) (Heparin Sod (Porcine) 1000 Unit/Ml 10 Ml Vial) 400 units IV Q1H SARAH Stop: 03/22/20 11:46 Last Admin: 03/22/20 13:37 Dose: Not Given Documented by: [id number] Admin: 03/22/20 13:37 Dose: Not Given Documented by: [id number] Admin: 03/22/20 13:36 Dose: Not Given Documented by: [id number] Sodium Chloride (Nss 1000ml) 250 mls @ 999 mls/hr IV .Q16M ONE Stop: 03/21/20 21:49 Last Infusion: 03/22/20 01:00 Dose: 0 mls/hr Documented by: [id number] Admin: 03/21/20 22:00 Dose: 999 mls/hr Documented by: [id number] Acetaminophen (Ofirmev) 1,000 mg in 100 mls @ 400 mls/hr IV NOW STA Stop: 03/21/20 21:48 Last Infusion: 03/22/20 01:00 Dose: 0 mls/hr Documented by: [id number] Admin: 03/21/20 22:04 Dose: 400 mls/hr Documented by: [id number] Prochlorperazine (Compazine) 1 mls @ 1 mls/min IV ONE ONE Stop: 03/21/20 22:38 Last Admin: 03/21/20 23:04 Dose: 1 mls/min Documented by: [id number] Sodium Chloride (Nss 1000ml) 250 mls @ 999 mls/hr IV .Q16M ONE Stop: 03/22/20 00:33 Last Infusion: 03/22/20 01:00 Dose: 0 mls/hr Documented by: [id number] Admin: 03/22/20 00:32 Dose: 999 mls/hr Documented by: [id number] Cefepime HCl 2,000 mg/ Syringe 20 mls @ 5 mls/min IV 0800 ONE Stop: 03/22/20 08:03 Last Admin: 03/22/20 08:19 Dose: 5 mls/min Documented by: [id number] Ondansetron HCl (Ondansetron Inj 2 Mg/Ml 2 Ml Vial) 4 mg IV NOW STA Stop: 03/21/20 21:56 Last Admin: 03/21/20 22:01 Dose: 4 mg Documented by: [id number] Ondansetron HCl (Ondansetron Inj 2 Mg/Ml 2 Ml Vial) Confirm Administered Dose 4 mg .ROUTE .STK-MED ONE Stop: 03/21/20 21:58 Last Admin: 03/21/20 22:01 Dose: Not Given Documented by: [id number] Medical Decision Making Differential Diagnosis Differential diagnoses includes but is not limited to gastritis, peptic ulcer disease, GERD, gallbladder disease, pancreatitis, small bowel obstruction, acute coronary syndrome, pericarditis, ischemic bowel, irritable bowel disease, irritable bowel syndrome, appendicitis, diverticulitis, malignancy, hernia, urinary tract infection, torsion, [/ectopic (if female)], perforation, trauma, infectious. Medical Records Attestation: I reviewed the patient's medical records. Home Medications Current Medication List: was personally reviewed by me Laboratory Data Attestation: I reviewed the patient's lab results. Result diagrams: 03/22/20 08:07 03/22/20 08:07 Lab Results 03/21/20 03/21/20 03/21/20 Range/Units 20:09 20:09 21:46 WBC 4.78 L (4.8-10.8) K/uL RBC 5.43 H (4.2-5.4) M/uL Hgb 16.4 H (12.0-16.0) g/dL Hct 48.9 H (37-47) % MCV 90.1 (80-100) fL MCH 30.2 (25-34) pg MCHC 33.5 (32-36) g/dL RDW Std Deviation 45.8 (36.4-46.3) fL RDW Coeff of Lebron 14.1 (11.5-14.5) % Plt Count 290 (130-400) K/uL MPV 10.2 (7.4-10.4) fL Neutrophils % (Manual) 38.4 % Lymphocytes % (Manual) 33.0 % Reactive Lymphs % (Man) 1.7 % Monocytes % (Manual) 8.7 % Eosinophils % (Manual) 2.6 % Basophils % (Manual) 2.6 % Neutrophils # (Manual) 1.84 (1.4-6.5) K/uL Total Absolute Neuts 1.84 (1.4-6.5) K/uL Lymphocytes # (Manual) 1.58 (1.2-3.4) K/uL Reactive Lymphs # 0.08 K/uL Total Abs Lymphocytes 2.28 (1.2-3.4) K/uL Monocytes # (Manual) 0.42 (0.11-0.59) K/uL Eosinophils # (Manual) 0.12 (0-0.5) K/uL Basophils # (Manual) 0.12 (0-0.2) K/uL Large Granular Lymphs 13.0 % # Lrg Granular Lymphs 0.62 K/uL Blood Smear Review Cancelled RBC Morphology Unremarkable Sodium 129 L (136-145) mmol/L Potassium 4.9 (3.5-5.1) mmol/L Chloride 90 L (98-107) mmol/L Carbon Dioxide 29 (21-32) mmol/L Anion Gap 10.0 (3-11) BUN 52 H (7-18) mg/dl Creatinine 9.09 H* (0.6-1.2) mg/dl Est Cr Clr Drug Dosing Not Reportable Est GFR ( Amer) 5.2 Est GFR (Non-Af Amer) 4.5 BUN/Creatinine Ratio 5.7 L (10-20) Glucose 175 H (70-99) mg/dl Osmolality (280-300) mOsm/kg Calcium 10.7 H (8.5-10.1) mg/dl Magnesium 3.7 H (1.8-2.4) mg/dl Total Bilirubin 0.5 (0.2-1) mg/dl AST 19 (15-37) U/L ALT 21 (12-78) U/L Alkaline Phosphatase 89 (45-117) U/L Total Protein 9.2 H (6.4-8.2) gm/dl Albumin 4.3 (3.4-5.0) gm/dl Globulin 4.9 H (2.5-4.0) gm/dl Albumin/Globulin Ratio 0.9 (0.9-2) Lipase 58 L (73-393) U/L HCG, Qual Negative (Negative) 03/21/20 Range/Units 21:46 WBC (4.8-10.8) K/uL RBC (4.2-5.4) M/uL Hgb (12.0-16.0) g/dL Hct (37-47) % MCV (80-100) fL MCH (25-34) pg MCHC (32-36) g/dL RDW Std Deviation (36.4-46.3) fL RDW Coeff of Lebron (11.5-14.5) % Plt Count (130-400) K/uL MPV (7.4-10.4) fL Neutrophils % (Manual) % Lymphocytes % (Manual) % Reactive Lymphs % (Man) % Monocytes % (Manual) % Eosinophils % (Manual) % Basophils % (Manual) % Neutrophils # (Manual) (1.4-6.5) K/uL Total Absolute Neuts (1.4-6.5) K/uL Lymphocytes # (Manual) (1.2-3.4) K/uL Reactive Lymphs # K/uL Total Abs Lymphocytes (1.2-3.4) K/uL Monocytes # (Manual) (0.11-0.59) K/uL Eosinophils # (Manual) (0-0.5) K/uL Basophils # (Manual) (0-0.2) K/uL Large Granular Lymphs % # Lrg Granular Lymphs K/uL Blood Smear Review RBC Morphology Sodium (136-145) mmol/L Potassium (3.5-5.1) mmol/L Chloride (98-107) mmol/L Carbon Dioxide (21-32) mmol/L Anion Gap (3-11) BUN (7-18) mg/dl Creatinine (0.6-1.2) mg/dl Est Cr Clr Drug Dosing Est GFR ( Amer) Est GFR (Non-Af Amer) BUN/Creatinine Ratio (10-20) Glucose (70-99) mg/dl Osmolality 303 H (280-300) mOsm/kg Calcium (8.5-10.1) mg/dl Magnesium (1.8-2.4) mg/dl Total Bilirubin (0.2-1) mg/dl AST (15-37) U/L ALT (12-78) U/L Alkaline Phosphatase (45-117) U/L Total Protein (6.4-8.2) gm/dl Albumin (3.4-5.0) gm/dl Globulin (2.5-4.0) gm/dl Albumin/Globulin Ratio (0.9-2) Lipase (73-393) U/L HCG, Qual (Negative) Imaging Data Radiologist's Impression: CT abdomen and pelvis without contrast: The lung bases are clear. Tiny bilateral nonobstructing renal calculi versus renal vascular calcifications. No ureteral calculus or hydronephrosis. Solid organs are unremarkable within limits of noncontrast technique. No abdominal aortic aneurysm. Cholecystectomy. No dilated bowel. The appendix is not identified. Above average stool throughout the colon. Intrauterine device. Mild diffuse bladder wall thickening. No ascites. 1.5 cm left buttock subcutaneous nodule which may be a sebaceous cyst. Radiologist: Xavier Parry MD Blood Pressure Blood Pressure Findings: Normal blood pressure MDM Narrative Patient presents with complaints of abdominal pain and urinary symptoms. Patient ill-appearing with nausea and vomiting while in the emergency room. Patient given multiple rounds of nausea medication as well as several doses of pain medication. Patient was cautiously given to small boluses of normal saline given her volume status and impending dialysis in the morning. Patient was afebrile and otherwise hemodynamically stable. Patient does have a complicated past medical history, denies any other recent changes. Patient unable to produce a urine specimen for additional testing given her complaints of urinary symptoms. I did offer the patient empiric treatment so she could return home and attend dialysis however patient stated she was still having too much pain and nausea and was uncomfortable going home. No acute GI or pathology was noted on CT, no acute vascular pathology. I do not suspect perforation, occult GI bleed, mesenteric ischemia. It is possible given patient's diabetic status she has gastroparesis. There was some mild constipation also noted. No evidence of bacteremia/sepsis. Patient did have mild electrolyte abnormalities in conjunction with her elevated creatinine, I suspect this is all chronic due to her chronic kidney disease requiring chronic hemodialysis. Patient was kept updated and rechecked multiple times. Patient and family were in agreement with additional plan. Case was discussed with hospitalist. An order was placed for continuous cardiac monitoring. The monitor shows a rate of 78_ with _normal sinus_ rhythm. Impression & Plan Abdominal pain, Dysuria, Nausea & vomiting Discharge Plan Visit Data Chief Complaint: Abdominal Pain Stated Complaint: ABD PAIN ED Provider: Kelly Richardson Discharge Problem: Abdominal pain, Dysuria, Nausea & vomiting Patient Disposition: Admitted As Inpatient Discharge Instructions Interventions: ED Discharge Assessment Last Done: 03/22/20 03:35 Discharge Problem: Abdominal pain Qualifiers: Abdominal location: lower abdomen, unspecified Qualified Code(s): R10.30 - Lower abdominal pain, unspecified Nausea & vomiting Qualifiers: Vomiting type: unspecified Vomiting Intractability: non-intractable Qualified Code(s): R11.2 - Nausea with vomiting, unspecified
[2020-03-21 22:18] LABS: Pregnancy Test, Serum Negative (Negative)
[2020-03-21] MEDS ORDERED: PROCHLORPERAZINE 1 ML IV ONE (22:37)
[2020-03-22] MEDS ORDERED: SODIUM CHLORIDE 0.9% 1000ML 250 ML IV ONE (00:18)
[2020-03-22] MEDS ORDERED: fentaNYL citrate 100 MCG/2 ML VIAL IV STA (01:33)
[2020-03-22 02:18] LABS: Magnesium 3.7 mg/dl (1.8-2.4)
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
[2020-03-22] MEDS ORDERED: traMADol HCL 50 MG TABLET PO PRN (02:39)
[2020-03-22] MEDS ORDERED: GLUCAGON FOR INJ 1 MG VIAL SQ PRN (04:03)
[2020-03-22] MEDS ORDERED: hydrOXYzine HCl 25 MG TAB PO PRN (04:03)
[2020-03-22] MEDS ORDERED: POLYETHYLENE (MIRALAX) 17 GM PACK PO PRN (04:03)
[2020-03-22] MEDS ORDERED: CARBOHYDRATES FOR HYPOGLYCEMIA PO PRN (04:03)
[2020-03-22] MEDS ORDERED: traZODone HCL 50 MG TAB PO PRN (04:03)
[2020-03-22] MEDS ORDERED: DEXTROSE 50% 50 ML SYRINGE IV PRN (04:03)
[2020-03-22] MEDS ORDERED: GLUCOSE 40% GEL 15 GM TUBE PO PRN (04:03)
[2020-03-22] MEDS ORDERED: GLUCOSE 10 TABS/TUBE PO PRN (04:03)
[2020-03-22] MEDS ORDERED: LORazepam 0.5 MG TAB PO PRN (04:03)
[2020-03-22] MEDS ORDERED: ACETAMINOPHEN 325 MG TAB PO PRN (04:29)
[2020-03-22] MEDS ORDERED: LACTULOSE SYRUP 20 GM/30 ML UDC PO PRN (04:30)
[2020-03-22] MEDS: INSULIN ASPART 100 UNITS/ML 3 ML PEN SC SCH ×5 (04:59→20:16)
[2020-03-22] MEDS: HEPARIN SOD 5,000 UNIT/0.5 ML VIAL SQ SCH ×3 (06:04→20:48)
[2020-03-22 06:23] LABS: Appearance Urine Clear (Clear); Bacteria Urine Automated Negative (Negative); Blood Urine Negative (Negative); Color Urine Dark Yellow; Epithelial Cell Urine Auto >30 /lpf (0-5); Glucose Urine UA Trace (Negative); Ketones Urine Trace (Negative); Leukocyte Esterase Urine Trace (Negative); Nitrite Urine Negative (Negative); Protein Urine 2+ (Negative); RBC Urine Automated 0-4 /hpf (0-4); Specific Gravity Urine 1.025 (1.000-1.030); Urobilinogen Urine Negative (Negative)
[2020-03-22 06:39] LABS: Bilirubin Urine Negative (Negative); Ictotest Urine Negative (Negative)
[2020-03-22] MEDS ORDERED: CEFEPIME CONSULT ACTIVE PRN (07:24)
--- NOTE | 2020-03-22 07:43 | XRay Report ---
XR chest 1V portable HISTORY: hyponatremia COMPARISON: Chest 03/01/2020. FINDINGS: No pneumothorax. No pleural effusions. The heart is normal in size. The lungs are clear. A right subclavian stent remains unchanged in position. Prior cholecystectomy. IMPRESSION: No significant change compared to the prior study. No acute process. ACT 112: Negative or not required by law. Electronically signed by: Jairon Shannon M.D. 03/22/2020 7:42 AM
[2020-03-22] MEDS ORDERED: CEFEPIME 500 MG in SYRINGE 0 ML IV SCH (08:00)
[2020-03-22] MEDS ORDERED: CEFEPIME 2,000 MG in SYRINGE 0 ML IV ONE (08:00)
[2020-03-22 08:18] LABS: Hematocrit (blood only) 42.1 % (37-47); Hemoglobin 14.2 g/dL (12.0-16.0); Mean Corpuscular Hgb Conc 33.7 g/dL (32-36); Mean Corpuscular Volume 88.8 fL (80-100); Platelet Count 241 K/uL (130-400); RDW Coefficient of Variation 13.8 % (11.5-14.5); RDW Standard Deviation 45.1 fL (36.4-46.3); Red Blood Count 4.74 M/uL (4.2-5.4); White Blood Count 3.87 K/uL (4.8-10.8)
[2020-03-22] MEDS: busPIRone 5 MG TAB PO SCH ×3 (08:19→20:07)
[2020-03-22] MEDS: GABAPENTIN 100 MG CAP PO SCH (08:19)
[2020-03-22] MEDS: lamoTRIgine 100 MG TAB PO SCH (08:19)
[2020-03-22] MEDS: FLUTICASONE/VILANTEROL 100/25MCG 14 PUFFS/INHALER INH SCH (08:19)
[2020-03-22] MEDS: DOCUSATE SODIUM 100 MG CAP PO SCH (08:20)
[2020-03-22] MEDS: PANTOprazole 40 MG TAB PO SCH (08:20)
[2020-03-22] MEDS: SENNA 8.6 MG TAB PO SCH (08:20)
[2020-03-22] MEDS: carvediloL 12.5 MG TAB PO SCH ×2 (08:20→16:04)
[2020-03-22] MEDS: MULTIVITAMIN TAB PO SCH (08:21)
[2020-03-22] MEDS: METOCLOPRAMIDE HCL 5 MG TABLET PO SCH ×2 (08:21→20:05)
[2020-03-22] MEDS: CALCIUM ACETATE 667 MG CAP/TAB PO SCH ×3 (08:21→16:04)
[2020-03-22] MEDS: levETIRAcetam 500 MG TAB PO SCH ×2 (08:21→20:06)
[2020-03-22] MEDS: LINZESS~ORDER AWAITING ACTION SCH ×2 (08:22→16:03)
--- NOTE | 2020-03-22 08:24 | CT Scan Report ---
ABDOMEN AND PELVIS CT WITHOUT CONTRAST CT DOSE: 338.13 mGy.cm HISTORY: lower abd pain into back, dysuria TECHNIQUE: Multiaxial CT images of the abdomen and pelvis were performed without contrast. A dose lo wering technique was utilized adhering to the principles of ALARA. COMPARISON STUDY: Abdomen and pelvis CT 03/01/2020. FINDINGS: Lower chest: There are mild basilar atelectatic changes. There are coronary artery calcific ations. There is trace pericardial fluid. Liver: A stable 6 mm hypodense lesion within the left hepatic lobe on image 72. This is incompletely characterized on this noncontrast study but favors a cyst. There is no intrahepatic biliary ductal di latation. Gallbladder: Surgically absent Spleen: Normal in size and attenuation. Pancreas: Unremarkable. Adrenal glands: Unremarkable. Kidneys: There are bilateral renal calcifications, likely vascular. There is no hydronephrosis. Bowel: There are no transition zones to indicate bowel obstruction. By history the appendix is surgic ally absent. There is no evidence of acute diverticulitis. There is moderate fecal retention. There a re several areas where the colon wall is the upper limits of normal thickness. This remain similar to the prior study. Peritoneum: There is no intraperitoneal free air or abdominal ascites. Vasculature: The abdominal aorta is normal in course and caliber. Adenopathy: No retroperitoneal or pelvic lymphadenopathy. Pelvic viscera: There is an indwelling IUD. Tubular cystic focus within the right adnexa best seen on image 325 measuring 12 mm in diameter. These could represent small ovarian cysts or a hydrosalpinx. This remains unchanged. Mild bladder wall thickening, unchanged. This could be due to underdistention . Skeletal structures: No destructive osseous lesions are seen. IMPRESSION: 1. No renal stones or hydronephrosis. 2. No evidence of bowel obstruction. No evidence of free air 3. No acute inflammatory changes. 4. Moderate fecal retention. 5. Mild bladder wall thickening, unchanged. This could be due to underdistention. 6. Tubular cystic focus within the right adnexa which remains unchanged. This measures [address] could represent small ovarian cysts or hydrosalpinx. ACT 112: Negative or not required by law. Electronically signed by: Jairon Shannon M.D. 03/22/2020 8:22 AM
[2020-03-22] MEDS: INSULIN GLARGINE SOLOSTAR 100 UNITS/ML 3 ML PEN SC SCH (08:26)
[2020-03-22] MEDS: PROMETHAZINE HCL 6.25 MG in SODIUM CHLORIDE 0.9% 50 ML IV PRN (08:33)
[2020-03-22 08:35] LABS: Magnesium 3.5 mg/dl (1.8-2.4)
[2020-03-22 08:45] LABS: BUN Creatinine Ratio 6.1 (10-20); Calcium 9.6 mg/dl (8.5-10.1); Creatinine Clr Calc Pharmacy 5.7 ml/min; Est GFR (African American) 5.2; Est GFR (Non-African American) 4.5; Potassium 4.7 mmol/L (3.5-5.1)
[2020-03-22 08:46] LABS: Basophils # (auto) 0.02 K/uL (0-0.2); Basophils % (auto) 0.5 %; Eosinophils # (auto) 0.16 K/uL (0-0.5); Eosinophils % (auto) 4.1 %; Lymphocytes # (auto) 2.26 K/uL (1.2-3.4); Lymphocytes % (auto) 58.4 %; Monocytes # (auto) 0.33 K/uL (0.11-0.59); Monocytes % (auto) 8.5 %; Neutrophils % (auto) 28.5 %
[2020-03-22] MEDS ORDERED: SODIUM CHLORIDE 0.9% 1000ML 1,000 ML IV PRN (09:37)
[2020-03-22] MEDS ORDERED: HEPARIN SOD (PORCINE) 1000 UNIT/ML 10 ML VIAL IV ONE (09:37)
--- NOTE | 2020-03-22 09:57 | Nephrology Consultation ---
Date of Consultation March 22, 2020 Assessment & Plan (1) Hyponatremia: Presenting sodium 129. For dialysis patients, routine work-up and pathophysiology of hyponatremia does not apply. In this patient's case, mild depression in serum sodium may represent mild volume depletion as suspected at admission. -monitor bmp daily Present on Admission?: Yes (2) Dysuria: Her urine specimen at admission has no bacteria or other profile consistent with UTI. Follow-up pending culture and adjust antibiotics as indicated. Present on Admission?: Yes (3) Abdominal pain: A frequent concern for her. On my exam abdominal pain more upper abdomen than lower abdomen. Urine findings as above. No clear findings on CT to explain abdominal pain. Per primary service Present on Admission?: Yes (4) CKD (chronic kidney disease) stage V requiring chronic dialysis: Saturday in center hemodialysis at [facility]. For routine dialysis today for 3.5 hours with target UF 1.5 L as blood pressure tolerates with mini heparin. -No indication for KIKE at this time -Given emesis and challenges maintaining p.o. 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 Further per primary service Present on Admission?: Yes History of Present Illness Reason for Consultation: ESRD on HD Requesting Physician: Dr Gonzalez Attending Physician: Sujit Musa MD History of Present Illness 49-year-old female with type 1 diabetes, chronic diastolic heart failure, COPD coronary artery disease prior strokes, gastroparesis and seizure disorder with ESRD on Saturday hemodialysis was admitted overnight after presenting with lower abdominal discomfort and voiding concerns for hyponatremia with presenting sodium 129. She complained of yellowish discharge with voiding and concentrated urine. Sugars in the 170s. some concerns about dysuria voiced in ER. She has frequent admissions here and at [facility] for abdominal pain and hyperglycemia. She had an uneventful dialysis on both Saturday and per her report. She has had uncontrolled abdominal pain for about a week. She had several episodes of emesis this morning nonbilious nonbloody but unable to keep breakfast down. No dyspnea. No focal numbness or weakness or chest pain. She does note some diminished urine output recently. In the ER she received 500 mL of normal saline, Compazine, Zofran, Tylenol and fentanyl as well as loading dose of cefepime. This morning on the monitor she had a 7 beat run of V. tach. Allergies Allergy/AdvReac Type Severity Reaction Status Date / Time Fish Containing Products Allergy Mild Hives Verified 03/21/20 22:31 latex Allergy Mild hives Verified 03/21/20 22:31 shellfish derived Allergy Mild Hives Verified 03/21/20 22:31 Home Medications Home Medications Medication Instructions Recorded Confirmed Type Leo Caps 1 cap PO QPM 12/19/18 03/21/20 History carvedilol [Coreg] 12.5 mg PO BIDM 12/19/18 03/21/20 History multivitamin 1 tab PO QAM 12/19/18 03/21/20 History pantoprazole [Protonix] 40 mg PO QAM 12/19/18 03/21/20 History polyethylene glycol 3350 [Miralax] 17 g PO BID PRN 12/19/18 03/21/20 History aripiprazole [Abilify] 5 mg PO HS 05/20/19 03/21/20 History levetiracetam [Keppra] 500 mg PO BID 06/20/19 03/21/20 History atorvastatin [Lipitor] 40 mg PO HS 08/01/19 03/21/20 History sertraline [Zoloft] 150 mg PO HS 08/01/19 03/21/20 History calcium acetate(phosphat bind) 667 mg PO TIDM 11/09/19 03/21/20 History Breo Ellipta 1 inh INHALATION QAM 01/03/20 03/21/20 History lorazepam 0.5 mg PO BID PRN 01/03/20 03/21/20 History Ketone Urine Test #100 ea 01/06/20 02/20/20 Rx Linzess 145 mcg PO QAM #30 cap 01/07/20 03/21/20 Rx ergocalciferol (vitamin D2) 50,000 unit PO WK 01/29/20 03/21/20 History gabapentin 100 mg PO DAILY 01/29/20 03/21/20 History lactulose 15 ml PO BID PRN 01/29/20 03/21/20 History melatonin 3 mg PO HS 01/29/20 03/21/20 History metoclopramide HCl 5 mg PO BID 01/29/20 03/21/20 History sennosides [senna] 8.6 mg PO DAILY 01/29/20 03/21/20 History lamotrigine 100 mg PO DAILY 01/30/20 03/21/20 History acetaminophen [Tylenol] 325 mg PO Q4 PRN 02/20/20 03/21/20 History albuterol sulfate 2 inh INHALATION QID PRN 02/20/20 03/21/20 History buspirone 5 mg PO TID 02/20/20 03/21/20 History docusate sodium 100 mg PO DAILY 02/20/20 03/21/20 History hydroxyzine HCl 25 mg PO TID PRN 02/20/20 03/21/20 History temazepam [Restoril] 15 mg PO HS 02/20/20 03/21/20 History tramadol [Ultram] 50 mg PO Q8 PRN 02/20/20 03/21/20 History trazodone 75 mg PO HS PRN 02/20/20 03/21/20 History Lantus Solostar U-100 Insulin 18 unit SUBCUT PM #0 ml 02/23/20 03/21/20 Rx insulin aspart U-100 [Novolog 3 unit SUBCUT TIDM #0 ml 02/23/20 03/21/20 Rx U-100 Insulin aspart] trimethobenzamide 300 mg PO TID PRN 03/21/20 03/21/20 History Patient History Medical History Anemia due to chronic kidney disease Arteriovenous fistula for hemodialysis in place, primary Bipolar disorder CKD (chronic kidney disease) stage V requiring chronic dialysis Coronary artery disease "2015 - cardiac catheterization showing nonobstructive coronary disease Stress test 06/2017 - possible small area of ischemia in the anterior wall" CVA (cerebral vascular accident) 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 history of CVA in 2018 Residual R sided weakness Depression Diabetic gastroparesis Diastolic heart failure DM type 1 (diabetes mellitus, type 1) ESRD (end stage renal disease) on dialysis GERD (gastroesophageal reflux disease) History of GI bleed Hyperlipidemia Hypertension Seizure Surgical History Hx of appendectomy Hx of cholecystectomy Hx of tubal ligation Family History Mother Coronary heart disease Hypertension Father Coronary heart disease Other No significant family history Social History Smoking Status: Never smoker Tobacco Type: Cigarettes Second Hand Exposure: No; Hx Alcohol Use: No Hx Substance Use: No Preferred Language: Canadian Communication Ability: Effective Communication Ability Comment: Pt is blind Senior Energy 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 Coordinator Required: No Beliefs That Will Affect Care: None marital status: Single Current Living Situation: Spouse current occupational status: unemployed Other Information That Helps Us Care for You: No Feels Safe at Home: Yes Safety Concerns: Feels Safe At This Time Assistive Devices: None Review of Systems Review of Systems: All systems reviewed & are unremarkable except as noted in HPI & below Physical Exam Constitutional: well developed and well nourished; no acute distress Eyes: EOM intact bilaterally ENMT: Ears: no external ear abnormality Nose: no external nose abnormality Mouth: + dry oral mucous membranes Neck: no nuchal rigidity Respiratory: normal respiratory effort Auscultation: lungs clear to auscultation bilaterally and + diminished lung sounds Cardiovascular: RRR, no murmur, no edema Extremities: + AV fistula Gastrointestinal (Abdomen): Inspection/Auscultation: normal bowel sounds Percussion/Palpation: + abdomen tender (Right upper quadrant and epigastrium) and abdomen soft Musculoskeletal: Extremities: strength 5/5 throughout Skin: no rashes, warm and dry Neurologic: teran, fluent speech, no tremor Psychiatric: Orientation: alert and oriented x 3 Affect: + flat affect Results & Data ([facility]) Vital Signs (Past 12 Hours) Vital Signs Temp Pulse Pulse Resp BP BP Pulse Ox 03/22/20 08:01 36.3 C L 85 18 146/83 H 98 03/22/20 04:17 36.7 C 80 16 115/69 96 03/22/20 04:05 79 03/22/20 03:35 80 16 142/74 H 100 03/22/20 01:41 81 16 151/82 H 96 03/22/20 00:00 84 16 114/66 100 03/21/20 22:06 98 H 14 175/90 H 100 Laboratory Results 03/22/20 08:07 03/22/20 08:07 Urinalysis couple for dark yellow clear urine specific gravity 1025 with 2+ protein trace glucose trace ketones trace leukocyte esterase and 5-10 hyaline casts per high-powered field with more than 30 epithelial cells and no bacteria Urine osmolality 313, urine sodium less than 5 Diagnostic Findings Chest x-ray FINDINGS: No pneumothorax. No pleural effusions. The heart is normal in size. The lungs are clear. A right subclavian stent remains unchanged in position. Prior cholecystectomy. CT abdomen pelvis 1. No renal stones or hydronephrosis. 2. No evidence of bowel obstruction. No evidence of free air 3. No acute inflammatory changes. 4. Moderate fecal retention. 5. Mild bladder wall thickening, unchanged. This could be due to underdisten tion. 6. Tubular cystic focus within the right adnexa which remains unchanged. This measures 12 mm in diameter could represent small ovarian cysts or hydrosalpinx. (1) Abdominal pain Abdominal location: lower abdomen, unspecified Qualified Code(s): R10.30 - Lower abdominal pain, unspecified
[2020-03-22] MEDS: HEPARIN SOD (PORCINE) 1000 UNIT/ML 10 ML VIAL IV SCH ×2 (13:36→13:37)
--- NOTE | 2020-03-22 14:30 | Hospitalist Progress Note ---
Date of Service March 22, 2020 Assessment & Plan Admission and Anticipated Discharge Date Admission Date: March 22, 2020 Subjective Patient examined on floor, in room 286. She was sitting comfortably in bed, in no acute distress. 7 beats of V. tach reported, asymptomatic. Stat electrolyte blood work ordered. Discussed with nephrology, patient will need dialysis and be on director of rehabilitation. She denies any chest pain or shortness of breath, complains of consistent itching and burning for the past 3 days in her genital area. She states it does not burn only with urination but all the time. States she has had yellowish discharge, and it seems as a yeast infection to her. She did not tell any healthcare provider about this. Did external exam at the presence of her nurse. Slight edema of genital area noted, and slight white-yellowish discharge noted. Will order topical Monistat and will follow up clinically. Patient was empirically started on antibiotic by edge roller, due to concern for UTI as patient has been complaining of burning with urination as well. We will await urine culture results. UA seems unremarkable. MD Pito Results & Data Results & Data ([facility]) Vital Signs (Past 12 Hours) Vital Signs Temp Pulse Pulse Pulse Resp BP BP 03/22/20 13:40 82 87/59 L 03/22/20 13:20 83 90/49 L 03/22/20 13:00 86 113/67 03/22/20 12:40 80 92/58 L 03/22/20 12:20 80 88/59 L 03/22/20 12:00 80 83/49 L 03/22/20 11:40 78 97/62 L 03/22/20 11:20 78 106/58 L 03/22/20 11:00 74 119/69 03/22/20 10:55 36.9 C 74 03/22/20 08:01 36.3 C L 85 18 146/83 H 03/22/20 08:00 80 03/22/20 04:17 36.7 C 80 16 115/69 03/22/20 04:05 79 03/22/20 03:35 80 16 142/74 H Pulse Ox 03/22/20 13:40 03/22/20 13:20 03/22/20 13:00 03/22/20 12:40 03/22/20 12:20 03/22/20 12:00 03/22/20 11:40 03/22/20 11:20 03/22/20 11:00 03/22/20 10:55 03/22/20 08:01 98 03/22/20 08:00 03/22/20 04:17 96 03/22/20 04:05 03/22/20 03:35 100
[2020-03-22] MEDS: MICONAZOLE NITRATE 2% CR 30 GM TUBE EXT SCH ×2 (16:03→20:52)
[2020-03-22] MEDS ORDERED: ATORVASTATIN 40 MG TAB PO SCH (21:00)
[2020-03-22] MEDS ORDERED: MICONAZOLE NITRATE-7 (100 MG EA SUPP) BOX PV SCH (21:00)
[2020-03-22] MEDS ORDERED: TEMAZEPAM 15 MG CAPSULE PO SCH (21:00)
[2020-03-22] MEDS ORDERED: ARIPiprazole 5 MG TAB PO SCH (21:00)
[2020-03-22] MEDS ORDERED: SERTRALINE HCL 50 MG TABLET PO SCH (21:00)
[2020-03-22] MEDS ORDERED: NEPHROCAPS PO SCH (21:00)
[2020-03-22] MEDS ORDERED: MELATONIN 3 MG TAB PO SCH (21:00)
[2020-03-23] MEDS: LINZESS~ORDER AWAITING ACTION SCH ×2 (00:13→07:50)
[2020-03-23] MEDS: HEPARIN SOD 5,000 UNIT/0.5 ML VIAL SQ SCH ×2 (06:14→12:56)
[2020-03-23 07:35] LABS: Hematocrit (blood only) 42.1 % (37-47); Hemoglobin 13.9 g/dL (12.0-16.0); Mean Corpuscular Volume 90.9 fL (80-100); Mean Platelet Volume 10.4 fL (7.4-10.4); Platelet Count 227 K/uL (130-400); RDW Coefficient of Variation 13.8 % (11.5-14.5); RDW Standard Deviation 44.8 fL (36.4-46.3); Red Blood Count 4.63 M/uL (4.2-5.4); White Blood Count 3.21 K/uL (4.8-10.8)
[2020-03-23] MEDS: FLUTICASONE/VILANTEROL 100/25MCG 14 PUFFS/INHALER INH SCH (07:46)
[2020-03-23] MEDS: METOCLOPRAMIDE HCL 5 MG TABLET PO SCH (07:47)
[2020-03-23] MEDS: CALCIUM ACETATE 667 MG CAP/TAB PO SCH ×2 (07:47→12:55)
[2020-03-23] MEDS: lamoTRIgine 100 MG TAB PO SCH (07:48)
[2020-03-23] MEDS: levETIRAcetam 500 MG TAB PO SCH (07:48)
[2020-03-23] MEDS: DOCUSATE SODIUM 100 MG CAP PO SCH (07:48)
[2020-03-23] MEDS: busPIRone 5 MG TAB PO SCH ×2 (07:48→12:56)
[2020-03-23] MEDS: GABAPENTIN 100 MG CAP PO SCH (07:49)
[2020-03-23] MEDS: carvediloL 12.5 MG TAB PO SCH (07:49)
[2020-03-23] MEDS: MULTIVITAMIN TAB PO SCH (07:49)
[2020-03-23] MEDS: SENNA 8.6 MG TAB PO SCH (07:49)
[2020-03-23] MEDS: PANTOprazole 40 MG TAB PO SCH (07:49)
[2020-03-23] MEDS: MICONAZOLE NITRATE 2% CR 30 GM TUBE EXT SCH (07:50)
[2020-03-23] MEDS: PROMETHAZINE HCL 6.25 MG in SODIUM CHLORIDE 0.9% 50 ML IV PRN (07:57)
[2020-03-23] MEDS ORDERED: CEFEPIME 500 MG in SYRINGE 0 ML IV SCH (08:00)
[2020-03-23 08:17] LABS: Albumin Globulin Ratio 0.9 (0.9-2); Albumin Level 3.5 gm/dl (3.4-5.0); BUN Creatinine Ratio 4.8 (10-20); Bilirubin,Total 0.4 mg/dl (0.2-1); Calcium 9.3 mg/dl (8.5-10.1); Creatinine Clr Calc Pharmacy 8.3 ml/min; Est GFR (African American) 8.1; Globulin 3.8 gm/dl (2.5-4.0); Magnesium 2.8 mg/dl (1.8-2.4); Phosphorus 3.7 mg/dl (2.5-4.9); Potassium 4.7 mmol/L (3.5-5.1); Total Protein 7.3 gm/dl (6.4-8.2)
[2020-03-23] MEDS: INSULIN GLARGINE SOLOSTAR 100 UNITS/ML 3 ML PEN SC SCH (08:32)
[2020-03-23] MEDS: INSULIN ASPART 100 UNITS/ML 3 ML PEN SC SCH ×2 (08:33→12:53)
[2020-03-23] MEDS ORDERED: ERGOCALCIFEROL 50,000 UNITS CAP PO SCH (09:00)
[2020-03-23] MEDS ORDERED: diphenhydrAMINE Capsule 25 MG CAP PO PRN (10:25)
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
--- NOTE | 2020-03-23 14:36 | Electrocardiogram Report ---
Test Reason : Blood Pressure : / mmHG Vent. Rate : 078 BPM Atrial Rate : 078 BPM P-R Int : 174 ms QRS Dur : 082 ms QT Int : 412 ms P-R-T Axes : 057 008 037 degrees QTc Int : 469 ms Normal sinus rhythm Poor R wave progression, consider anterior [place] vs. lead placement vs. LVH Abnormal ECG When compared with ECG of 01-MAR-2020 13:52, Questionable change in initial forces of Septal leads Confirmed by Denton Saba ([id number]) on 03/23/2020 2:36:17 PM Referred By: REFERRED SELF Confirmed By:Denton Saba
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
== END 2020-03-23 16:05 | disposition home or self-care (01) | DRG 640 ==
LOC: ED 19:37 → 2N 03-22 02:32 → SUATTDRO 03-22 02:32 → 2N 03-22 03:35

== ENCOUNTER 2020-07-27 17:16 | Inpatient (IN) ==
[2020-07-27] MEDS ORDERED: SODIUM CHLORIDE 0.9% 500 ML IV ONE ×2 (17:43→20:48)
[2020-07-27] MEDS ORDERED: diphenhydrAMINE 50 MG/ML VIAL IV STA (17:43)
[2020-07-27] MEDS ORDERED: METOCLOPRAMIDE HCL INJ 5 MG/ML 2 ML VIAL IV STA (17:43)
[2020-07-27] MEDS ORDERED: FAMOTIDINE 20MG IV PUSH 20 MG/5 ML SYR IV STA (17:43)
[2020-07-27] MEDS ORDERED: ACETAMINOPHEN 1,000 MG/100 ML VIAL IV STA (17:46)
--- NOTE | 2020-07-27 18:27 | Emergency Department Note ---
Impression & Plan Diabetic gastroparesis, Hypertension, Hyperglycemia, Headache ED Provider Note NAME: KELLEN BECKER AGE: 49 SEX: F ARRIVES VIA: Walk-In INFORMANT: Patient, ED PROVIDER(S): Toi Puga MD CHIEF COMPLAINT: headache, n/v, bodyaches PLAN: Disposition: Admit MEDICAL DECISION MAKING: The patient is a pleasant 49-year-old woman with a past medical history of chronic diastolic heart failure, nonocclusive CAD as per records, hypertension, history CVA, COPD, hx DM1, ESRD on HD, mood disorder, past tobacco abuse, medication noncompliance, history of seizures, gastroparesis who presents emergency department with frontal headache, nausea, vomiting and body aches as well as feverishness that has been evolving since Saturday when she received her first COVID-19 vaccination. She denies missing any dialysis appointments and has been on her Saturday schedule. Denies any known COVID-19 exposures. She denies cough, chest pain, shortness of breath. She also feels she may be having increased frequency of her "seizures" but describes these episodes as brief periods where she forgets where she is. On arrival the patient is uncomfortable ill-appearing but in no acute distress, afebrile with blood pressure 180s/100s and otherwise stable vital signs. She appears clinically dry. She has no focal neurologic deficits. She has mild lower abdominal discomfort without discrete tenderness. EKG without overt acute ischemia. Chest x-ray negative for acute cardiopulmonary process. WBC 4.5, nonspecific. H/H and platelets within normal limits. Chemistry without metabolic acidosis. VBG without significant acidemia with pH of 7.29. Creatinine 7.5 in setting of the patient's known end-stage renal disease due for dialysis tomorrow. Potassium 5.1, phosphorus 6.5 and magnesium 2.9. LFTs are unremarkable. Troponin negative/undetectable. Lipase within normal limits. Procalcitonin is not elevated 0.11, nonspecific. COVID-19 PCR was negative. Flu and RSV PCR also negative. CT head negative for acute process. CT on pelvis also negative for acute process. Upon reevaluation patient did appear somewhat improved no longer vomiting/retching following IV fluid hydration, famotidine, Reglan, APAP. She does report residual abdominal pain and headache. Will provide additional gentle IV fluid hydration as well as Bentyl. Given the patient's symptoms in the setting of hyperglycemia at high risk to develop DKA if symptoms not well controlled reasonable to admit the patient for further management. Patient agrees with this. Will defer management of the patient's blood pressure and glucose to admitting team as the patient is currently stable. Case was discussed with Dr. Thurston, [facility] hospitalist, who will evaluate the patient for admission. Triage Nursing notes reviewed and agree them. Prior medical records reviewed Vital Signs: reviewed and remarkable for HTN. Differential diagnosis: Infection, dehydration, metabolic abnormality, hypo/hyperglycemia, electrolyte disturbance, anemia, hypoxia, cardiac sources, intracerebral event, toxicologic, neurologic, as well as other pathologies. ER treatment provided: See below. Diagnostics interpreted by me: ECG: Normal sinus rhythm, 98 bpm, no ectopy, nonspecific ST abnormality, no overt ST elevation. QTc 492, QRS 74. Cardiac Monitoring: An order for continuous cardiac monitoring was placed and demonstrated normal sinus rhythm, 98 bpm, no ectopy. Laboratory studies: See below Imaging studies: XR chest 1V portable CLINICAL HISTORY: SEPSIS COMPARISON STUDY: 07/22/2020 FINDINGS: The cardiac and mediastinal contours are normal. There is no evidence of focal pulmonary consolidation. There is no evidence of failure. No pleural effusions are visualized.[There is a stent in the right subclavian region. An electronic device projects over the left upper arm. IMPRESSION: No active disease in the chest. ACT 112: Negative or not required by law. Electronically signed by: Denis Vargas M.D. 07/27/2020 6:46 PM -- CT head/brain wo con CLINICAL HISTORY: Headache, nausea, vomiting. COMPARISON STUDY: 07/22/2020 TECHNIQUE: Axial CT of the brain is performed from the vertex to the skull base. IV contrast was not administered for this examination. A dose lowering latricia hnique was utilized adhering to the principles of ALARA. CT DOSE: 537.48 mGy.cm FINDINGS: No intra or extra-axial mass lesions are visualized. There is no CT evidence of acute cortical infarction. There is no evidence of midline shift. There is no acute hemorrhage. No calvarial fractures are visualized. There are patchy white matter hypodensities likely on a small vessel basis. There is an old infarct involving the left basal ganglia and external capsule. There is mild compensatory dilatation of the left lateral ventricle. 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 IMPRESSION: No acute intracranial findings ACT 112: Negative or not required by law. Electronically signed by: Denis Vargas M.D. 07/27/2020 8:01 PM --- CT SCAN OF THE ABDOMEN AND PELVIS WITHOUT CONTRAST CLINICAL HISTORY: Nausea, vomiting, abdominal pain COMPARISON STUDY: 07/22/2020 TECHNIQUE: CT scan of the abdomen and pelvis was performed from the lung bases to the proximal femurs. Images are reviewed in the axial, sagittal, and coronal planes. IV contrast was not administered for this examination. A dose lowering technique was utilized adhering to the principles of ALARA. CT DOSE: 264.51 mGy.cm FINDINGS: Lower chest: There is a small hiatal hernia. Liver: The unenhanced liver is normal in size, contour, and attenuation. There is no intrahepatic biliary ductal dilatation. Gallbladder: Surgically absent Spleen: Normal in size and attenuation. Pancreas: Unremarkable. Adrenal glands: Unremarkable. Kidneys: There are bilateral vascular calcifications. There is no hydronephrosis. Bowel: There are no transition zones to indicate bowel obstruction. There is no acute diverticulitis. By history the appendix is surgically absent. Peritoneum: There is no intraperitoneal free air or abdominal ascites. Vasculature: The abdominal aorta is normal in course and caliber. Adenopathy: None. Pelvic viscera: There is an indwelling IUD. Skeletal structures: No destructive osseous lesions are seen. IMPRESSION: 1. No acute intra-abdominal or pelvic findings 2. No evidence of bowel obstruction. No evidence of free air 3. No acute inflammatory changes ACT 112: Negative or not required by law. Electronically signed by: Denis Vargas M.D. 07/27/2020 8:04 PM - Consultation(s): Case was discussed with Dr. Thurston, [facility] hospitalist, who will evaluate the patient for admission. HPI: The patient is a pleasant 49-year-old woman with a past medical history of chronic diastolic heart failure, nonocclusive CAD as per records, hypertension, history CVA, COPD, hx DM1, ESRD on HD, mood disorder, past tobacco abuse, medication noncompliance, history of seizures, gastroparesis who presents emerge ncy department with frontal headache, nausea, vomiting and body aches as well as feverishness that has been evolving since Saturday when she received her first COVID-19 vaccination. She denies missing any dialysis appointments and has been on her Saturday schedule. Denies any known COVID-19 exposures. She denies cough, chest pain, shortness of breath. ROS: See above HPI for pertinent positives & negatives. A total of 10 systems reviewed and were otherwise negative. PAST MEDICAL HISTORY:See Below PAST SURGICAL HISTORY:See Below FAMILY HISTORY:See Below SOCIAL HISTORY:See Below HOME MEDICATIONS:See Below ALLERGIES:See Below VITALS:See Below PHYSICAL EXAMINATION: GENERAL: Awake, alert, uncomfortable/ill-appearing, in no distress HENT: Normocephalic, atraumatic. Oropharynx with dry mucous membranes and otherwise unremarkable. EYES: Normal conjunctiva. Sclera non-icteric. EOMI. No nystamgus. PEARRL. NECK: Supple. No nuchal rigidity. FROM. No JVD. RESPIRATORY: Clear to auscultation. CARDIAC: Regular rate, normal rhythm. Extremities warm and well perfused. Pulses equal. RUE AV fistula with palpable bruit. ABDOMEN: Soft, non-distended. Mild lower abdominal discomfort without discrete tenderness to palpation. No rebound or guarding. No masses. RECTAL: Deferred. MUSCULOSKELETAL: Chest examination reveals no tenderness. The back is symmetrical on inspection without obvious abnormality. There is no CVA tenderness to palpation. No joint edema. LOWER EXTREMITIES: Calves are equal size bilaterally and non-tender. No edema. No discoloration. NEURO: Normal sensorium. No focal sensory or motor deficits noted. SKIN: No rash or jaundice noted. Toi Puga MD Past Med/Surg History Medical History (Updated 07/27/20 @ 21:01 by oTi Puga MD) Anemia due to chronic kidney disease Arteriovenous fistula for hemodialysis in place, primary Bipolar disorder CKD (chronic kidney disease) stage V requiring chronic dialysis Coronary artery disease "2016 - cardiac catheterization showing nonobstructive coronary disease Stress test 06/2017 - possible small area of ischemia in the anterior wall" CVA (cerebral vascular accident) 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 history of CVA in 2018 Residual R sided weakness Depression Diabetic gastroparesis Diastolic heart failure DM type 1 (diabetes mellitus, type 1) ESRD (end stage renal disease) on dialysis GERD (gastroesophageal reflux disease) History of GI bleed Hyperlipidemia Hypertension Seizure Surgical History Hx of appendectomy Hx of cholecystectomy Hx of tubal ligation Family History Mother Coronary heart disease Hypertension Father Coronary heart disease Other No significant family history Social History Smoking Status: Smoker, status unknown Tobacco Type: Cigarettes Second Hand Exposure: No; Hx Alcohol Use: No Hx Substance Use: No Preferred Language: Cymro Communication Ability: Effective Administrative Analyst Required: No Beliefs That Will Affect Care: None marital status: Single Current Living Situation: Family current occupational status: unemployed Other Information That Helps Us Care for You: No Feels Safe at Home: Yes Safety Concerns: Feels Safe At This Time Assistive Devices: Contacts Allergies Allergies Allergy/AdvReac Type Severity Reaction Status Date / Time Fish Containing Products Allergy Mild Hives Verified 07/22/20 18:44 latex Allergy Mild hives Verified 07/22/20 18:44 shellfish derived Allergy Mild Hives Verified 07/22/20 18:44 Home Meds Home Medications Medication Instructions Recorded Confirmed aripiprazole [Abilify] 5 mg PO HS 05/20/19 07/27/20 levetiracetam [Keppra] 500 mg PO BID 06/20/19 07/27/20 atorvastatin [Lipitor] 40 mg PO HS 08/01/19 07/27/20 melatonin 3 mg PO HS 01/29/20 07/27/20 buspirone 5 mg PO TID PRN 02/20/20 07/27/20 hydroxyzine HCl 25 mg PO TID PRN 02/20/20 07/27/20 temazepam [Restoril] 15 mg PO HS 02/20/20 07/27/20 trazodone 75 mg PO HS PRN 02/20/20 07/27/20 trimethobenzamide 300 mg PO TID PRN 03/21/20 07/27/20 B complex with C 20-folic acid 1 cap PO DAILY 07/27/20 07/27/20 [[place] Caps] Lantus Solostar U-100 Insulin 10 unit SUBCUT HS 07/27/20 07/27/20 benztropine 0.5 mg PO HS 07/27/20 07/27/20 carvedilol [Coreg] 12.5 mg PO BID 07/27/20 07/27/20 ergocalciferol (vitamin D2) 1,250 mcg PO WK 07/27/20 07/27/20 [Vitamin D2] gabapentin 0 mg PO HS 07/27/20 07/27/20 insulin lispro [Admelog SoloStar 5 unit SUBCUT TIDM 07/27/20 07/27/20 U-100 Insulin] lactulose 10 g PO BID PRN 07/27/20 07/27/20 lamotrigine [Lamictal] 50 mg PO HS 07/27/20 07/27/20 linaclotide [Linzess] 72 mcg PO QAM 07/27/20 07/27/20 prochlorperazine maleate 5 mg PO QID PRN 07/27/20 07/27/20 sertraline [Zoloft] 50 mg PO HS 07/27/20 07/27/20 sevelamer carbonate 800 mg PO TIDM 07/27/20 07/27/20 Results & Data (ED) Vital Signs Vital Signs - 24 hr 07/27/20 17:17 07/27/20 17:51 07/27/20 18:30 Temperature 36.4 C L Temperature Source Oral Pulse Rate 96 H 96 H Pulse Rate from SpO2 Sensor Respiratory Rate 18 17 Respiratory Effort / Characteristics Non-Labored Spontaneous Respiratory Depth Normal Blood Pressure 153/75 H 195/121 H Blood Pressure Mean 101 145 Pulse Oximetry 100 Oxygen Delivery Method Room Air Room Air Room Air Sepsis Recent Fever Within 48 Hours No Sepsis New/Unexplained Change in Mental Status No Sepsis Action Taken by Nursing No Action Required 07/27/20 18:33 07/27/20 18:37 07/27/20 18:38 Temperature Temperature Source Pulse Rate 97 H Pulse Rate from SpO2 Sensor Respiratory Rate 23 Respiratory Effort / Characteristics Non-Labored Spontaneous Respiratory Depth Blood Pressure Blood Pressure Mean Pulse Oximetry Oxygen Delivery Method Room Air Room Air Room Air Sepsis Recent Fever Within 48 Hours Sepsis New/Unexplained Change in Mental Status Sepsis Action Taken by Nursing 07/27/20 18:40 07/27/20 18:50 07/27/20 19:00 Temperature Temperature Source Pulse Rate 94 H 89 87 Pulse Rate from SpO2 Sensor Respiratory Rate 18 17 17 Respiratory Effort / Characteristics Respiratory Depth Blood Pressure Blood Pressure Mean Pulse Oximetry Oxygen Delivery Method Room Air Room Air Room Air Sepsis Recent Fever Within 48 Hours Sepsis New/Unexplained Change in Mental Status Sepsis Action Taken by Nursing 07/27/20 19:10 07/27/20 19:20 07/27/20 19:30 Temperature Temperature Source Pulse Rate 88 87 83 Pulse Rate from SpO2 Sensor Respiratory Rate 30 H 23 19 Respiratory Effort / Characteristics Respiratory Depth Blood Pressure Blood Pressure Mean Pulse Oximetry Oxygen Delivery Method Room Air Room Air Room Air Sepsis Recent Fever Within 48 Hours Sepsis New/Unexplained Change in Mental Status Sepsis Action Taken by Nursing 07/27/20 19:40 07/27/20 19:50 07/27/20 20:50 Temperature Temperature Source Pulse Rate 84 85 91 H Pulse Rate from SpO2 Sensor 91 H Respiratory Rate 27 H 20 22 Respiratory Effort / Characteristics Respiratory Depth Blood Pressure 181/74 H Blood Pressure Mean 109 Pulse Oximetry 100 Oxygen Delivery Method Room Air Room Air Room Air Sepsis Recent Fever Within 48 Hours Sepsis New/Unexplained Change in Mental Status Sepsis Action Taken by Nursing 07/27/20 21:00 07/27/20 21:10 07/27/20 21:20 Temperature Temperature Source Pulse Rate 88 85 89 Pulse Rate from SpO2 Sensor 89 86 89 Respiratory Rate 17 19 19 Respiratory Effort / Characteristics Respiratory Depth Blood Pressure 179/72 H Blood Pressure Mean 107 Pulse Oximetry 100 100 100 Oxygen Delivery Method Room Air Room Air Room Air Sepsis Recent Fever Within 48 Hours Sepsis New/Unexplained Change in Mental Status Sepsis Action Taken by Nursing 07/27/20 21:30 Temperature Temperature Source Pulse Rate 88 Pulse Rate from SpO2 Sensor 88 Respiratory Rate 16 Respiratory Effort / Characteristics Respiratory Depth Blood Pressure 179/87 H Blood Pressure Mean 117 Pulse Oximetry 100 Oxygen Delivery Method Room Air Sepsis Recent Fever Within 48 Hours Sepsis New/Unexplained Change in Mental Status Sepsis Action Taken by Nursing Laboratory Data Attestation: I reviewed the patient's lab results. Result diagrams: 07/27/20 18:09 07/27/20 18:09 Lab Results 07/27/20 07/27/20 07/27/20 Range/Units 18:09 18:09 18:09 WBC 4.45 L (4.8-10.8) K/uL RBC 4.89 (4.2-5.4) M/uL Hgb 15.3 (12.0-16.0) g/dL Hct 44.5 (37-47) % MCV 91.0 (80-100) fL MCH 31.3 (25-34) pg MCHC 34.4 (32-36) g/dL RDW Std Deviation 43.7 (36.4-46.3) fL RDW Coeff of Lebron 13.2 (11.5-14.5) % Plt Count 249 (130-400) K/uL MPV 10.8 H (7.4-10.4) fL Neutrophils % (Manual) 33.0 % Lymphocytes % (Manual) 37.5 % Reactive Lymphs % (Man) 13.0 % Monocytes % (Manual) 11.3 % Eosinophils % (Manual) 3.5 % Basophils % (Manual) 1.7 % Neutrophils # (Manual) 1.47 (1.4-6.5) K/uL Total Absolute Neuts 1.47 (1.4-6.5) K/uL Lymphocytes # (Manual) 1.67 (1.2-3.4) K/uL Reactive Lymphs # 0.58 K/uL Total Abs Lymphocytes 2.25 (1.2-3.4) K/uL Monocytes # (Manual) 0.50 (0.11-0.59) K/uL Eosinophils # (Manual) 0.16 (0-0.5) K/uL Basophils # (Manual) 0.08 (0-0.2) K/uL PT (9.0-12.0) Seconds INR (0.9-1.1) APTT (21.0-31.0) Seconds PTT Ratio VBG pH (7.36-7.41) VBG pCO2 (38-50) mmHg VBG pO2 mmHg VBG HCO3 mmol/L VBG O2 Saturation % VBG Base Excess mEq/L Barometric Pressure mm/Hg Sodium 137 (136-145) mmol/L Potassium 5.1 (3.5-5.1) mmol/L Chloride 99 (98-107) mmol/L Carbon Dioxide 24 (21-32) mmol/L Anion Gap 14.0 H (3-11) BUN 61 H (7-18) mg/dl Creatinine 7.54 H* (0.6-1.2) mg/dl Est Cr Clr Drug Dosing 7.0 ml/min Est GFR ( Amer) 6.6 Est GFR (Non-Af Amer) 5.7 BUN/Creatinine Ratio 8.2 L (10-20) Glucose 223 H (70-99) mg/dl Lactate (0.4-2.0) mmol/L Calcium 9.8 (8.5-10.1) mg/dl Phosphorus 6.5 H (2.5-4.9) mg/dl Magnesium 2.9 H (1.8-2.4) mg/dl Total Bilirubin 0.5 (0.2-1) mg/dl Direct Bilirubin 0.1 (0-0.2) mg/dl AST 16 (15-37) U/L ALT 27 (12-78) U/L Alkaline Phosphatase 89 (45-117) U/L Troponin I < 0.015 (0-0.045) ng/ml Total Protein 8.4 H (6.4-8.2) gm/dl Albumin 3.9 (3.4-5.0) gm/dl Globulin 4.5 H (2.5-4.0) gm/dl Albumin/Globulin Ratio 0.9 (0.9-2) Lipase 73 (73-393) U/L Procalcitonin 0.11 (0-0.5) ng/ml Urine Color Urine Appearance (Clear) Urine pH (4.5-7.5) Ur Specific Bath (1.000-1.030) Urine Protein (Negative) Urine Glucose (UA) (Negative) Urine Ketones (Negative) Urine Blood (Negative) Urine Nitrite (Negative) Urine Bilirubin (Negative) Urine Urobilinogen (Negative) Ur Leukocyte Esterase (Negative) Urine WBC (Auto) (0-5) /hpf Urine RBC (Auto) (0-4) /hpf U Hyaline Cast (Auto) (0-5) /lpf U Epithel Cells (Auto) (0-5) /lpf Urine Bacteria (Auto) (Negative) COVID-19 Eval Order SARS-CoV-2 (PCR) (Negative) Influenza Type A (PCR) (Neg) Influenza Type B (PCR) (Neg) RSV (RT-PCR) (Neg) 07/27/20 07/27/20 07/27/20 Range/Units 18:09 18:09 18:09 WBC (4.8-10.8) K/uL RBC (4.2-5.4) M/uL Hgb (12.0-16.0) g/dL Hct (37-47) % MCV (80-100) fL MCH (25-34) pg MCHC (32-36) g/dL RDW Std Deviation (36.4-46.3) fL RDW Coeff of Lebron (11.5-14.5) % Plt Count (130-400) K/uL MPV (7.4-10.4) fL Neutrophils % (Manual) % Lymphocytes % (Manual) % Reactive Lymphs % (Man) % Monocytes % (Manual) % Eosinophils % (Manual) % Basophils % (Manual) % Neutrophils # (Manual) (1.4-6.5) K/uL Total Absolute Neuts (1.4-6.5) K/uL Lymphocytes # (Manual) (1.2-3.4) K/uL Reactive Lymphs # K/uL Total Abs Lymphocytes (1.2-3.4) K/uL Monocytes # (Manual) (0.11-0.59) K/uL Eosinophils # (Manual) (0-0.5) K/uL Basophils # (Manual) (0-0.2) K/uL PT 10.5 (9.0-12.0) Seconds INR 1.0 (0.9-1.1) APTT 24.8 (21.0-31.0) Seconds PTT Ratio 0.9 VBG pH (7.36-7.41) VBG pCO2 (38-50) mmHg VBG pO2 mmHg VBG HCO3 mmol/L VBG O2 Saturation % VBG Base Excess mEq/L Barometric Pressure mm/Hg Sodium (136-145) mmol/L Potassium (3.5-5.1) mmol/L Chloride (98-107) mmol/L Carbon Dioxide (21-32) mmol/L Anion Gap (3-11) BUN (7-18) mg/dl Creatinine (0.6-1.2) mg/dl Est Cr Clr Drug Dosing ml/min Est GFR ( Amer) Est GFR (Non-Af Amer) BUN/Creatinine Ratio (10-20) Glucose (70-99) mg/dl Lactate (0.4-2.0) mmol/L Calcium (8.5-10.1) mg/dl Phosphorus (2.5-4.9) mg/dl Magnesium (1.8-2.4) mg/dl Total Bilirubin (0.2-1) mg/dl Direct Bilirubin (0-0.2) mg/dl AST (15-37) U/L ALT (12-78) U/L Alkaline Phosphatase (45-117) U/L Troponin I (0-0.045) ng/ml Total Protein (6.4-8.2) gm/dl Albumin (3.4-5.0) gm/dl Globulin (2.5-4.0) gm/dl Albumin/Globulin Ratio (0.9-2) Lipase (73-393) U/L Procalcitonin (0-0.5) ng/ml Urine Color Urine Appearance (Clear) Urine pH (4.5-7.5) Ur Specific Bath (1.000-1.030) Urine Protein (Negative) Urine Glucose (UA) (Negative) Urine Ketones (Negative) Urine Blood (Negative) Urine Nitrite (Negative) Urine Bilirubin (Negative) Urine Urobilinogen (Negative) Ur Leukocyte Esterase (Negative) Urine WBC (Auto) (0-5) /hpf Urine RBC (Auto) (0-4) /hpf U Hyaline Cast (Auto) (0-5) /lpf U Epithel Cells (Auto) (0-5) /lpf Urine Bacteria (Auto) (Negative) COVID-19 Eval Order CovFluRsv at [facility] SARS-CoV-2 (PCR) NEGATIVE (Negative) Influenza Type A (PCR) Negative (Neg) Influenza Type B (PCR) Negative (Neg) RSV (RT-PCR) Negative (Neg) 07/27/20 07/27/20 07/27/20 Range/Units 19:40 19:40 20:51 WBC (4.8-10.8) K/uL RBC (4.2-5.4) M/uL Hgb (12.0-16.0) g/dL Hct (37-47) % MCV (80-100) fL MCH (25-34) pg MCHC (32-36) g/dL RDW Std Deviation (36.4-46.3) fL RDW Coeff of Lebron (11.5-14.5) % Plt Count (130-400) K/uL MPV (7.4-10.4) fL Neutrophils % (Manual) % Lymphocytes % (Manual) % Reactive Lymphs % (Man) % Monocytes % (Manual) % Eosinophils % (Manual) % Basophils % (Manual) % Neutrophils # (Manual) (1.4-6.5) K/uL Total Absolute Neuts (1.4-6.5) K/uL Lymphocytes # (Manual) (1.2-3.4) K/uL Reactive Lymphs # K/uL Total Abs Lymphocytes (1.2-3.4) K/uL Monocytes # (Manual) (0.11-0.59) K/uL Eosinophils # (Manual) (0-0.5) K/uL Basophils # (Manual) (0-0.2) K/uL PT (9.0-12.0) Seconds INR (0.9-1.1) APTT (21.0-31.0) Seconds PTT Ratio VBG pH 7.29 L (7.36-7.41) VBG pCO2 49 (38-50) mmHg VBG pO2 30 mmHg VBG HCO3 23 mmol/L VBG O2 Saturation < 60.0 % VBG Base Excess -4.1 mEq/L Barometric Pressure 741.4 mm/Hg Sodium (136-145) mmol/L Potassium (3.5-5.1) mmol/L Chloride (98-107) mmol/L Carbon Dioxide (21-32) mmol/L Anion Gap (3-11) BUN (7-18) mg/dl Creatinine (0.6-1.2) mg/dl Est Cr Clr Drug Dosing ml/min Est GFR ( Amer) Est GFR (Non-Af Amer) BUN/Creatinine Ratio (10-20) Glucose (70-99) mg/dl Lactate 1.5 (0.4-2.0) mmol/L Calcium (8.5-10.1) mg/dl Phosphorus (2.5-4.9) mg/dl Magnesium (1.8-2.4) mg/dl Total Bilirubin (0.2-1) mg/dl Direct Bilirubin (0-0.2) mg/dl AST (15-37) U/L ALT (12-78) U/L Alkaline Phosphatase (45-117) U/L Troponin I (0-0.045) ng/ml Total Protein (6.4-8.2) gm/dl Albumin (3.4-5.0) gm/dl Globulin (2.5-4.0) gm/dl Albumin/Globulin Ratio (0.9-2) Lipase (73-393) U/L Procalcitonin (0-0.5) ng/ml Urine Color Yellow Urine Appearance Cloudy A (Clear) Urine pH 5.0 (4.5-7.5) Ur Specific Bath 1.022 (1.000-1.030) Urine Protein 2+ H (Negative) Urine Glucose (UA) 2+ H (Negative) Urine Ketones Trace H (Negative) Urine Blood Trace H (Negative) Urine Nitrite Negative (Negative) Urine Bilirubin Negative (Negative) Urine Urobilinogen Negative (Negative) Ur Leukocyte Esterase Trace H (Negative) Urine WBC (Auto) 10-30 H (0-5) /hpf Urine RBC (Auto) 0-4 (0-4) /hpf U Hyaline Cast (Auto) 5-10 H (0-5) /lpf U Epithel Cells (Auto) >30 H (0-5) /lpf Urine Bacteria (Auto) Negative (Negative) COVID-19 Eval Order SARS-CoV-2 (PCR) (Negative) Influenza Type A (PCR) (Neg) Influenza Type B (PCR) (Neg) RSV (RT-PCR) (Neg) Administered Medications Carvedilol (Carvedilol 12.5 Mg Tab) 12.5 mg PO BID [facility] Stop: 08/26/20 22:41 Last Admin: 07/28/20 00:00 Dose: 12.5 mg Documented by: [id number] Levetiracetam (Levetiracetam 500 Mg Tab) 500 mg PO BID [facility] Stop: 08/26/20 22:41 Last Admin: 07/28/20 00:01 Dose: 500 mg Documented by: [id number] Discontinued Medications Dicyclomine HCl (Dicyclomine Hcl 10 Mg/Ml 2 Ml Amp/Vial) 20 mg IM NOW ONE Stop: 07/27/20 20:35 Last Admin: 07/27/20 20:47 Dose: 20 mg Documented by: [id number] Diphenhydramine HCl (Diphenhydramine 50 Mg/Ml Vial) 25 mg IV NOW STA Stop: 07/27/20 17:44 Last Admin: 07/27/20 18:20 Dose: 25 mg Documented by: [id number] Sodium Chloride (Nss) 500 mls @ 999 mls/hr IV .Q31M ONE Stop: 07/27/20 18:13 Last Infusion: 07/27/20 18:52 Dose: 0 mls/hr Documented by: [id number] Admin: 07/27/20 18:20 Dose: 999 mls/hr Documented by: [id number] Famotidine (Pepcid 20mg Iv Push) 20 mg in 5 mls @ 2.5 mls/min IV NOW STA Stop: 07/27/20 17:44 Last Admin: 07/27/20 18:20 Dose: 2.5 mls/min Documented by: [id number] Acetaminophen (Ofirmev) 1,000 mg in 100 mls @ 400 mls/hr IV NOW STA Stop: 07/27/20 18:00 Last Infusion: 07/27/20 18:42 Dose: 0 mls/hr Documented by: [id number] Admin: 07/27/20 18:20 Dose: 400 mls/hr Documented by: [id number] Sodium Chloride (Nss) 500 mls @ 999 mls/hr IV .Q31M ONE Stop: 07/27/20 21:18 Last Infusion: 07/27/20 23:10 Dose: 0 mls/hr Documented by: [id number] Admin: 07/27/20 22:18 Dose: 999 mls/hr Documented by: [id number] Metoclopramide HCl (Metoclopramide Hcl Inj 5 Mg/Ml 2 Ml Vial) 10 mg IV NOW STA Stop: 07/27/20 17:44 Last Admin: 07/27/20 18:20 Dose: 10 mg Documented by: [id number] Discharge Plan Visit Data Chief Complaint: Illness Stated Complaint: vomiting, headache ED Provider: Toi Puga Discharge Problem: Diabetic gastroparesis, Hypertension, Hyperglycemia, Headache Patient Disposition: Admitted As Inpatient Discharge Instructions Interventions: ED Discharge Assessment Last Done: 07/27/20 22:27
[2020-07-27 18:40] LABS: Hematocrit (blood only) 44.5 % (37-47); Hemoglobin 15.3 g/dL (12.0-16.0); Mean Corpuscular Hemoglobin 31.3 pg (25-34); Mean Corpuscular Hgb Conc 34.4 g/dL (32-36); Mean Platelet Volume 10.8 fL (7.4-10.4); Platelet Count 249 K/uL (130-400); RDW Coefficient of Variation 13.2 % (11.5-14.5); RDW Standard Deviation 43.7 fL (36.4-46.3); Red Blood Count 4.89 M/uL (4.2-5.4); White Blood Count 4.45 K/uL (4.8-10.8)
--- NOTE | 2020-07-27 18:47 | XRay Report ---
XR chest 1V portable CLINICAL HISTORY: SEPSIS COMPARISON STUDY: 07/22/2020 FINDINGS: The cardiac and mediastinal contours are normal. There is no evidence of focal pulmonary co nsolidation. There is no evidence of failure. No pleural effusions are visualized.[There is a stent i n the right subclavian region. An electronic device projects over the left upper arm. IMPRESSION: No active disease in the chest. ACT 112: Negative or not required by law. Electronically signed by: Denis Vargas M.D. 07/27/2020 6:46 PM
[2020-07-27 18:54] LABS: Partial Thromboplastin Ratio 0.9; Partial Thromboplastin Time 24.8 Seconds (21.0-31.0); Prothrombin Time 10.5 Seconds (9.0-12.0)
[2020-07-27 18:56] LABS: ALC (manual) 2.25 K/uL (1.2-3.4); ANC (manual) 1.47 K/uL (1.4-6.5); Basophils # (manual) 0.08 K/uL (0-0.2); Basophils % (manual) 1.7 %; Eosinophils # (manual) 0.16 K/uL (0-0.5); Eosinophils % (manual) 3.5 %; Lymphocytes # (manual) 1.67 K/uL (1.2-3.4); Lymphocytes % (manual) 37.5 %; Monocytes % (manual) 11.3 %; Neutrophils # (manual) 1.47 K/uL (1.4-6.5); Reactive Lymphocytes # (manual) 0.58 K/uL
[2020-07-27 19:10] LABS: Alanine Aminotransferase 27 U/L (12-78); Albumin Globulin Ratio 0.9 (0.9-2); Albumin Level 3.9 gm/dl (3.4-5.0); Alkaline Phosphatase 89 U/L (45-117); Aspartate Aminotransferase 16 U/L (15-37); BUN Creatinine Ratio 8.2 (10-20); Bilirubin Direct 0.1 mg/dl (0-0.2); Bilirubin,Total 0.5 mg/dl (0.2-1); Blood Urea Nitrogen 61 mg/dl (7-18); Calcium 9.8 mg/dl (8.5-10.1); Carbon Dioxide 24 mmol/L (21-32); Chloride 99 mmol/L (98-107); Est GFR (African American) 6.6; Est GFR (Non-African American) 5.7; Globulin 4.5 gm/dl (2.5-4.0); Glucose 223 mg/dl (70-99); Lipase 73 U/L (73-393); Magnesium 2.9 mg/dl (1.8-2.4); Phosphorus 6.5 mg/dl (2.5-4.9); Potassium 5.1 mmol/L (3.5-5.1); Sodium 137 mmol/L (136-145); Total Protein 8.4 gm/dl (6.4-8.2); Troponin I < 0.015 ng/ml (0-0.045)
[2020-07-27 19:17] LABS: Influenza A virus by PCR Negative (Neg); Influenza B virus by PCR Negative (Neg); RSV by PCR Negative (Neg); SARS CoV2 RNA(COVID-19) InHosp NEGATIVE (Negative)
[2020-07-27 19:57] LABS: Base Excess VBG -4.1 mEq/L; HCO3 VBG 23 mmol/L; PCO2 VBG 49 mmHg (38-50); PO2 VBG 30 mmHg; pH VBG 7.29 (7.36-7.41)
[2020-07-27 19:58] LABS: Oxygen Saturation VBG < 60.0 %
--- NOTE | 2020-07-27 20:02 | CT Scan Report ---
CT head/brain wo con CLINICAL HISTORY: Headache, nausea, vomiting. COMPARISON STUDY: 07/22/2020 TECHNIQUE: Axial CT of the brain is performed from the vertex to the skull base. IV contrast was not administered for this examination. A dose lowering technique was utilized adhering to the principles of ALARA. CT DOSE: 537.48 mGy.cm FINDINGS: No intra or extra-axial mass lesions are visualized. There is no CT evidence of acute cortical infarc tion. There is no evidence of midline shift. There is no acute hemorrhage. No calvarial fractures ar e visualized. There are patchy white matter hypodensities likely on a small vessel basis. There is an old infarct i nvolving the left basal ganglia and external capsule. There is mild compensatory dilatation of the left lateral ventricle. 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 IMPRESSION: No acute intracranial findings ACT 112: Negative or not required by law. Electronically signed by: Denis Vargas M.D. 07/27/2020 8:01 PM
--- NOTE | 2020-07-27 20:05 | CT Scan Report ---
CT SCAN OF THE ABDOMEN AND PELVIS WITHOUT CONTRAST CLINICAL HISTORY: Nausea, vomiting, abdominal pain COMPARISON STUDY: 07/22/2020 TECHNIQUE: CT scan of the abdomen and pelvis was performed from the lung bases to the proximal femurs . Images are reviewed in the axial, sagittal, and coronal planes. IV contrast was not administered fo r this examination. A dose lowering technique was utilized adhering to the principles of ALARA. CT DOSE: 264.51 mGy.cm FINDINGS: Lower chest: There is a small hiatal hernia. Liver: The unenhanced liver is normal in size, contour, and attenuation. There is no intrahepatic jasson iary ductal dilatation. Gallbladder: Surgically absent Spleen: Normal in size and attenuation. Pancreas: Unremarkable. Adrenal glands: Unremarkable. Kidneys: There are bilateral vascular calcifications. There is no hydronephrosis. Bowel: There are no transition zones to indicate bowel obstruction. There is no acute diverticulitis. By history the appendix is surgically absent. Peritoneum: There is no intraperitoneal free air or abdominal ascites. Vasculature: The abdominal aorta is normal in course and caliber. Adenopathy: None. Pelvic viscera: There is an indwelling IUD. Skeletal structures: No destructive osseous lesions are seen. IMPRESSION: 1. No acute intra-abdominal or pelvic findings 2. No evidence of bowel obstruction. No evidence of free air 3. No acute inflammatory changes ACT 112: Negative or not required by law. Electronically signed by: Denis Vargas M.D. 07/27/2020 8:04 PM
[2020-07-27] MEDS ORDERED: DICYCLOMINE HCL 10 MG/ML 2 ML AMP/VIAL IM ONE (20:34)
[2020-07-27 21:04] LABS: Appearance Urine Cloudy (Clear); Bacteria Urine Automated Negative (Negative); Bilirubin Urine Negative (Negative); Blood Urine Trace (Negative); Color Urine Yellow; Epithelial Cell Urine Auto >30 /lpf (0-5); Glucose Urine UA 2+ (Negative); Ketones Urine Trace (Negative); Leukocyte Esterase Urine Trace (Negative); Nitrite Urine Negative (Negative); Protein Urine 2+ (Negative); RBC Urine Automated 0-4 /hpf (0-4); Specific Gravity Urine 1.022 (1.000-1.030); Urobilinogen Urine Negative (Negative)
[2020-07-27] MEDS ORDERED: PROCHLORPERAZINE MALEATE 5 MG TAB PO PRN (22:42)
[2020-07-27] MEDS ORDERED: METOCLOPRAMIDE HCL INJ 5 MG/ML 2 ML VIAL IV PRN (22:42)
[2020-07-27] MEDS ORDERED: hydrOXYzine HCl 25 MG TAB PO PRN (22:42)
[2020-07-27] MEDS ORDERED: busPIRone 5 MG TAB PO PRN (22:42)
[2020-07-27] MEDS ORDERED: LACTULOSE SYRUP 20 GM/30 ML UDC PO PRN (23:03)
[2020-07-27] MEDS ORDERED: GLUCAGON FOR INJ 1 MG VIAL SQ PRN (23:45)
[2020-07-27] MEDS ORDERED: GLUCOSE 40% GEL 15 GM TUBE PO PRN (23:45)
[2020-07-27] MEDS ORDERED: DEXTROSE 50% 50 ML SYRINGE IV PRN (23:45)
[2020-07-27] MEDS ORDERED: GLUCOSE 10 TABS/TUBE PO PRN (23:45)
[2020-07-27] MEDS ORDERED: CARBOHYDRATES FOR HYPOGLYCEMIA PO PRN (23:45)
[2020-07-28] MEDS: levETIRAcetam 500 MG TAB PO SCH ×3 (00:01→21:54)
--- NOTE | 2020-07-28 03:00 | History and Physical Report ---
DATE OF ADMISSION: 07/27/2020 CHIEF COMPLAINT: Nausea, vomiting, abdominal pain. HISTORY OF PRESENT ILLNESS: This is a 49-year-old female with past medical history significant for type 1 diabetes, end-stage renal disease on hemodialysis, chronic diastolic CHF, hx of CVA, history of COPD, CAD, GERD, gastroparesis, chronic constipation, hypertension, hyperlipidemia, prior gastrointestinal bleeding, history of seizure disorder, malnutrition, who lives with daughter and boyfriend, presents with nausea, vomiting, and abdominal pain. The patient says she had COVID vaccine last Saturday and since last Saturday she is having nausea, vomiting and abdominal pain. She was not able to eat much because of the vomiting, it was not getting better, so she came to the ER. In the ER, she was given Reglan and fluids. She is feeling better, but still has significant pain and nausea. So we are called for admission. She is due for dialysis tomorrow. She also complains of some headache, some shortness of breath, but denies any cough, no loss of sense of smell or taste, has some runny nose and sore throat for the last few days. No chest pain, no diarrhea or constipation, no blood in the stools. Makes urine, no burning micturition. Ambulates with a walker at home. In the ER, imaging studies, CT of the head was no acute findings. Chest x-ray was unremarkable. CT of the abdomen and pelvis, no acute findings. COVID was negative. Flu was negative. RSV was negative. ALLERGIES: FISH-CONTAINING PRODUCTS, LATEX, SHELLFISH. PAST MEDICAL HISTORY: As mentioned above. PAST SURGICAL HISTORY: Breast lesion excision, cataract surgery, colonoscopy, EGD with endoscopic ultrasound, ERCP, insertion of tunneled catheter, laparoscopic cholecystectomy, laparoscopic appendectomy, laser treatment of the eyes, repair of detached retina. MEDICATIONS: The patient is on buspirone 5 mg p.o. t.i.d. p.r.n., melatonin 3 mg p.o. at bedtime, vitamin D 50,000 units p.o. once a week, insulin lispro 5 units t.i.d. with meals, aripiprazole 5 mg p.o. at bedtime, Renvela 800 mg p.o. t.i.d. with meals, Lantus 10 units under skin at bedtime, Keppra 500 mg p.o. b.i.d., trimethobenzamide 300 mg p.o. 4 times a day p.r.n., Compazine 5 mg p.o. q.6 hours p.r.n., hydroxyzine 25 mg p.o. t.i.d. p.r.n., Lamictal 50 mg p.o. at bedtime, Zoloft 50 mg p.o. at bedtime, Restoril 15 mg p.o. at bedtime, Lipitor 40 mg p.o. daily, trazodone 75 mg p.o. at bedtime p.r.n., PhosLo 667 mg p.o. t.i.d. with meals, B complex, [place] caps 1 capsule p.o. daily in the evening, gabapentin 100 mg p.o. daily, Colace 100 mg p.o. daily p.r.n., MiraLax 17 g daily p.r.n., lactulose 10 grams p.o. b.i.d. p.r.n., Linzess 72 mcg p.o. daily before breakfast, Coreg 12.5 mg p.o. b.i.d., Aranesp as directed, and albuterol p.r.n. FAMILY HISTORY: Significant for maternal aunt has breast cancer; niece has breast cancer; father has diabetes, eye problems, heart disorder; mother has hypertension, heart disorder, and eye problems; sister has thyroid disorder. SOCIAL HISTORY: Lives with boy friend and daughter. Former smoker, quit in 2016. Smoked average of 0.2 packs a day for 21 years. No alcohol use, no drug use. REVIEW OF SYSTEMS: As per HPI. Rest of the review of systems negative. ASSESSMENT AND PLAN: The patient is a 49-year-old female with history of diabetes, chronic obstructive pulmonary disease, end-stage renal disease on hemodialysis, gastroparesis presents with nausea, vomiting, and abdominal pain. 1. Nausea, vomiting, abdominal pain: Imaging studies are unremarkable, mostly secondary to her gastroparesis. Given Reglan in the ER. Will continue with IV Reglan p.r.n. and continue Zofran p.r.n. Will keep on clear liquid diet. Will observe in the medical floor. 2. End-stage renal disease, on hemodialysis: Due for dialysis tomorrow. Nephrology consult. 3. History of diabetes: Continue with Lantus insulin sliding scale. Will follow the blood sugars. 4. History of chronic obstructive pulmonary disease: Continue home inhalers. 5. Hypertension: Continue Coreg. Will monitor the blood pressure. 6. Hyperlipidemia: Continue statin. 7. Seizure: Continue Keppra. 8. Constipation: Continue Linzess and continue her stool softeners. 9. Chronic diastolic congestive heart failure: No signs of volume overload, on dialysis. 10. Nonocclusive coronary artery disease per records, on statin and beta wiley. 11. Deep venous thrombosis prophylaxis, sequential compression devices for now. 12. Disposition: Observation in medical floor. Expect to discharge home and follow with family doctor. Level 1 full code. MTDD
[2020-07-28] MEDS: ACETAMINOPHEN 325 MG TAB PO PRN (07:20)
[2020-07-28] MEDS ORDERED: INSULIN ASPART 100 UNITS/ML 3 ML PEN SC SCH (07:30)
[2020-07-28] MEDS ORDERED: LINZESS~ORDER AWAITING ACTION SCH (08:00)
[2020-07-28] MEDS ORDERED: PHARMACY GLYCEMIC MGMT CONSULT PRN (08:23)
[2020-07-28] MEDS ORDERED: SODIUM CHLORIDE 0.9% 1000ML 1,000 ML IV SCH (08:30)
[2020-07-28] MEDS: ONDANSETRON INJ 2 MG/ML 2 ML VIAL IV PRN (08:43)
[2020-07-28] MEDS ORDERED: INSULIN GLARGINE SOLOSTAR 100 UNITS/ML 3 ML PEN SC ONE (08:45)
[2020-07-28 08:50] LABS: Hematocrit (blood only) 39.8 % (37-47); Hemoglobin 13.4 g/dL (12.0-16.0); Mean Corpuscular Hemoglobin 31.2 pg (25-34); Mean Corpuscular Volume 92.8 fL (80-100); Mean Platelet Volume 11.1 fL (7.4-10.4); Platelet Count 215 K/uL (130-400); RDW Coefficient of Variation 13.1 % (11.5-14.5); RDW Standard Deviation 44.6 fL (36.4-46.3); Red Blood Count 4.29 M/uL (4.2-5.4); White Blood Count 3.89 K/uL (4.8-10.8)
[2020-07-28 08:51] LABS: Mean Corpuscular Hgb Conc 33.7 g/dL (32-36)
[2020-07-28] MEDS ORDERED: SODIUM CHLORIDE 0.9% 1000ML 1,000 ML IV PRN (09:24)
[2020-07-28] MEDS ORDERED: HEPARIN SOD (PORCINE) 1000 UNIT/ML IV ONE (09:24)
[2020-07-28 09:41] LABS: BUN Creatinine Ratio 8.9 (10-20); Calcium 8.9 mg/dl (8.5-10.1); Creatinine Clr Calc Pharmacy 7.2 ml/min; Est GFR (African American) 6.8; Est GFR (Non-African American) 5.9; Potassium 5.9 mmol/L (3.5-5.1)
[2020-07-28 10:06] LABS: Beta-Hydroxybutyrate 48.96 mg/dl (0.2-2.81)
[2020-07-28] MEDS: SEVELAMER HCL 800 MG TABLET PO SCH ×3 (10:21→17:06)
[2020-07-28] MEDS: carvediloL 12.5 MG TAB PO SCH ×3 (10:23→21:54)
[2020-07-28] MEDS ORDERED: INSULIN HUMAN REGULAR IV BOLUS 5 UNITS in SYRINGE 0 ML IV ONE (10:30)
--- NOTE | 2020-07-28 10:33 | Consultation Report ---
DATE OF CONSULTATION: 07/28/2020 REASON FOR CONSULT: Dialysis, patient admitted with nausea and vomiting. HISTORY OF PRESENT ILLNESS: The patient is a 49-year-old female with end-stage renal disease, on hemodialysis Saturday, , Saturday through an AV fistula in [facility] in [place]. She has a longstanding history of type 1 diabetes and has this problem of nausea and vomiting for many, many years. She has had countless admissions in multiple hospitals for the same problem and it is secondary to severe gastroparesis. She came in because of nausea and vomiting for the last 1 week. At this point, the nausea seems to be slightly better. She is currently getting IV fluid. Her vital signs are stable. There is no other acute issues going on. Her last dialysis was on Saturday. She had COVID vaccine a week ago and she thinks she started having nausea, vomiting symptoms since then. PAST MEDICAL AND SURGICAL HISTORY: Includes type 1 diabetes, end-stage renal disease on hemodialysis, chronic diastolic congestive heart failure, history of CVA, history of COPD, coronary artery disease, GERD, severe gastroparesis, hypertension, hyperlipidemia, history of seizure disorder, depression with bipolar, breast lesion excision, cataract surgery, colonoscopy, multiple surgeries for the AV fistula. MEDICATIONS: At home list was extensive and was reviewed as per H and P and the medicine reconciliation list. FAMILY HISTORY: Significant for breast cancer. No ESRD in the family. SOCIAL HISTORY: Lives with her boyfriend and her daughter. She quit smoking few years back. No alcohol, no drugs. REVIEW OF SYSTEMS: As per HPI, unless stated otherwise, 12 systems reviewed and negative. LABORATORY TESTS: Reviewed in detail and is consistent with end-stage renal disease patient, hemoglobin is high at 13.5. Sugar is very high at more than 600. Sodium 137, potassium 5.1, BUN 61, creatinine 7.54. Chest x-ray unremarkable. ASSESSMENT AND PLAN: A 49-year-old female with type 1 diabetes with chronic severe gastroparesis with intermittent worsening. She has ESRD and is on hemodialysis Saturday, , Saturday. She is admitted with ongoing nausea, vomiting. This has been worked up extensively with countless admissions in multiple hospitals over the last 10 years. 1. End-stage renal disease: She will get dialysis today. We will do for 3 hours on a 2K bath. No need of Epo as hemoglobin is 13+. We will give some heparin. We will take about 1 kilo off. It is very important to note that even though she has very high glucose of more than 600, she should not be getting IV fluid given a dialysis patient and I will be stopping the IV fluid at this time. 2. Nausea, vomiting: This is not a new problem. She has had many, many admissions over the last few years with exact same problem of nausea, vomiting from gastroparesis and high glucose. Please do supportive treatment only. There is no need to do a detailed workup. I seriously believe that we should limit the amount of CAT scan we do as she has had more than 20 CAT scans in just 1 year.
[2020-07-28] MEDS: INSULIN REGULAR 250 UNITS in SODIUM CHLORIDE 0.9% 247.5 ML IV SCH (10:48)
[2020-07-28] MEDS: NEPHROCAPS PO SCH (10:56)
[2020-07-28] MEDS: linaCLOtide 72 MCG CAPSULE PO SCH (10:57)
--- NOTE | 2020-07-28 11:56 | Pharmacy Report ---
Pharmacy Glycemic Short Note 2 - Date of Service July 28, 2020 - Glycemic Short BSG Results (Last 24 hours): 07/27/20 07/28/20 07/28/20 18:09 08:05 08:08 Glucose 223 H POC Glucose 565 H* > 600 H* 07/28/20 07/28/20 07/28/20 08:22 08:59 09:52 Glucose 637 H* POC Glucose > 600 H* > 600 H* OUTPATIENT ANTIDIABETIC REGIMEN: * Lantus 10 units SQ qHS, lispro 5 units TID with meals * A1c = 8.8% (01/04/20) - A1c ordered for 07/29 ASSESSMENT: * Laura is a 49 yo type 1 diabetic admitted with nausea and vomiting secondary to severe gastroparesis. ESRD on HD (). * Severe hyperglycemia this AM. Labs indicate patient may be in mild-moderate DKA, however it is difficult to determine how much of an effect ESRD is having on electrolyte/acid base imbalance. Of note, patient missed her dose of basal insulin last evening. Uncertain when last dose of insulin was given prior to admission. * Discussed case with Hospitalist; patient will be starting on IV insulin infusion at reduced infusion rate to ensure glucose levels are not corrected too quickly. Nephrology does not want patient on IV fluids. Patient to receive HD today. Labs will be repeated after HD. Continue IV insulin infusion until more lab data available. PLAN FOR INPATIENT GLYCEMIC CONTROL: * IV insulin infusion per protocol * Goal range: 150 - 250 * Basal insulin * Lantus 15 units SQ this morning * Further Lantus orders to be determined on 07/29 AM Orders for if/when patient meets criteria for transition off insulin drip: * Lantus - patient should not need redosed until 07/29 AM * Bolus insulin * NovoLog per scale ACHS or Q6hrs while NPO * Goal Range: Low 120 mg/dL - 160 High mg/dL * Correction Factor: 35 mg/dL/unit * Nutritional / Prandial insulin per carb ratio of 1 unit per 13 grams CHO consumed * Overnight checks with coverage at 00,04 PLAN FOR DISCHARGE: * tbd
[2020-07-28] MEDS: HEPARIN SOD (PORCINE) 1000 UNIT/ML IV SCH (12:07)
[2020-07-28] MEDS: INSULIN HUMAN REGULAR SC SCH ×3 (12:36→21:50)
--- NOTE | 2020-07-28 13:52 | Hospitalist Progress Note ---
Date of Service July 28, 2020 Assessment & Plan (1) Diabetic gastroparesis: (2) Nausea & vomiting: (3) Abdominal pain: Abdominal pain with nausea vomiting Secondary to diabetic gastroprocess Pain control. We will do IV Tylenol as needed for now Continue IV Reglan and Zofran Imaging studies are unremarkable Continue Mani (4) Acute hyperglycemia: Hyperglycemia in a patient with type 1 diabetes Patient has anion gap acidosis which are likely due to mixed picture of ketoacidosis plus end-stage renal disease. Continue insulin drip Discussed management with pharmacist and so we will not do typical IV fluids management for DKA due to patient's renal disease and does not make much urine. Hence, hemodynamics of fluid/osmolality shifts different. Monitor Blood glucose per hr and manage appropriately Continue clear liquid for now Monitor BMP (5) End-stage renal disease (ESRD): Nephrology on board To get hemodialysis today (6) Hypertension: Controlled Continue carvedilol (7) Seizure: Continue Keppra (8) CVA (cerebral vascular accident): Last cath showed nonocclusive CAD Continue statin Admission and Anticipated Discharge Date Admission Date: July 27, 2020 Subjective Patient seen and examined. Patient still reporting abdominal pain. Reports she has vomited twice today and would prefer IV medication for pain control stating that she vomited when she got meds No fevers, chills No chest pain, cough, shortness of breath Passing flatus. Last bowel movement 3 days ago. Denies constipation. Stated that she has not been eating. Denies headache or dizziness Physical Exam Constitutional: + well hydrated; no acute distress Eyes: PERRL, conjunctivae normal, anicteric sclerae ENMT: external ear and nose normal, oropharynx normal Respiratory: normal respiratory effort, lungs clear to auscultation Cardiovascular: Rate/Rhythm: regular rate and regular rhythm S1-S2 no pedal edema Gastrointestinal (Abdomen): Inspection/Auscultation: abdomen normal to inspection and normal bowel sounds; abdomen not distended Percussion/Palpation: + abdomen tender (Generalized mild tenderness) and abdomen soft; no guarding and abdomen not rigid Musculoskeletal: no cyanosis or clubbing, extremities motor strength 5/5 Neurologic: PERRL, EOMI, accommodation nl, no face palsy, no dysarthria Psychiatric: A+Ox3, euthymic affect Results & Data Results & Data ([place]) Vital Signs (Past 12 Hours) Vital Signs Temp Pulse Resp BP Pulse Ox 07/28/20 07:02 36.8 C 80 16 121/72 100 Laboratory Results Laboratory Results - last 24 hr 07/27/20 07/27/20 07/27/20 18:09 18:09 18:09 WBC 4.45 L RBC 4.89 Hgb 15.3 Hct 44.5 MCV 91.0 MCH 31.3 MCHC 34.4 RDW Std Deviation 43.7 RDW Coeff of Lebron 13.2 Plt Count 249 MPV 10.8 H Neutrophils % (Manual) 33.0 Lymphocytes % (Manual) 37.5 Reactive Lymphs % (Man) 13.0 Monocytes % (Manual) 11.3 Eosinophils % (Manual) 3.5 Basophils % (Manual) 1.7 Neutrophils # (Manual) 1.47 Total Absolute Neuts 1.47 Lymphocytes # (Manual) 1.67 Reactive Lymphs # 0.58 Total Abs Lymphocytes 2.25 Monocytes # (Manual) 0.50 Eosinophils # (Manual) 0.16 Basophils # (Manual) 0.08 PT INR APTT PTT Ratio VBG pH VBG pCO2 VBG pO2 VBG HCO3 VBG O2 Saturation VBG Base Excess Barometric Pressure Sodium 137 Potassium 5.1 Chloride 99 Carbon Dioxide 24 Anion Gap 14.0 H BUN 61 H Creatinine 7.54 H* Est Cr Clr Drug Dosing 7.0 Est GFR ( Amer) 6.6 Est GFR (Non-Af Amer) 5.7 BUN/Creatinine Ratio 8.2 L Glucose 223 H POC Glucose Lactate Calcium 9.8 Phosphorus 6.5 H Magnesium 2.9 H Total Bilirubin 0.5 Direct Bilirubin 0.1 AST 16 ALT 27 Alkaline Phosphatase 89 Troponin I < 0.015 Total Protein 8.4 H Albumin 3.9 Globulin 4.5 H Albumin/Globulin Ratio 0.9 Lipase 73 Beta-Hydroxybutyric Acd Procalcitonin 0.11 Urine Color Urine Appearance Urine pH Ur Specific Haskins Urine Protein Urine Glucose (UA) Urine Ketones Urine Blood Urine Nitrite Urine Bilirubin Urine Urobilinogen Ur Leukocyte Esterase Urine WBC (Auto) Urine RBC (Auto) U Hyaline Cast (Auto) U Epithel Cells (Auto) Urine Bacteria (Auto) COVID-19 Eval Order SARS-CoV-2 (PCR) Influenza Type A (PCR) Influenza Type B (PCR) RSV (RT-PCR) 07/27/20 07/27/20 07/27/20 18:09 18:09 18:09 WBC RBC Hgb Hct MCV MCH MCHC RDW Std Deviation RDW Coeff of Lebron Plt Count MPV Neutrophils % (Manual) Lymphocytes % (Manual) Reactive Lymphs % (Man) Monocytes % (Manual) Eosinophils % (Manual) Basophils % (Manual) Neutrophils # (Manual) Total Absolute Neuts Lymphocytes # (Manual) Reactive Lymphs # Total Abs Lymphocytes Monocytes # (Manual) Eosinophils # (Manual) Basophils # (Manual) PT 10.5 INR 1.0 APTT 24.8 PTT Ratio 0.9 VBG pH VBG pCO2 VBG pO2 VBG HCO3 VBG O2 Saturation VBG Base Excess Barometric Pressure Sodium Potassium Chloride Carbon Dioxide Anion Gap BUN Creatinine Est Cr Clr Drug Dosing Est GFR ( Amer) Est GFR (Non-Af Amer) BUN/Creatinine Ratio Glucose POC Glucose Lactate Calcium Phosphorus Magnesium Total Bilirubin Direct Bilirubin AST ALT Alkaline Phosphatase Troponin I Total Protein Albumin Globulin Albumin/Globulin Ratio Lipase Beta-Hydroxybutyric Acd Procalcitonin Urine Color Urine Appearance Urine pH Ur Specific H[place]ins Urine Protein Urine Glucose (UA) Urine Ketones Urine Blood Urine Nitrite Urine Bilirubin Urine Urobilinogen Ur Leukocyte Esterase Urine WBC (Auto) Urine RBC (Auto) U Hyaline Cast (Auto) U Epithel Cells (Auto) Urine Bacteria (Auto) COVID-19 Eval Order CovFluRsv at [facility] SARS-CoV-2 (PCR) NEGATIVE Influenza Type A (PCR) Negative Influenza Type B (PCR) Negative RSV (RT-PCR) Negative 07/27/20 07/27/20 07/27/20 19:40 19:40 20:51 WBC RBC Hgb Hct MCV MCH MCHC RDW Std Deviation RDW Coeff of Lebron Plt Count MPV Neutrophils % (Manual) Lymphocytes % (Manual) Reactive Lymphs % (Man) Monocytes % (Manual) Eosinophils % (Manual) Basophils % (Manual) Neutrophils # (Manual) Total Absolute Neuts Lymphocytes # (Manual) Reactive Lymphs # Total Abs Lymphocytes Monocytes # (Manual) Eosinophils # (Manual) Basophils # (Manual) PT INR APTT PTT Ratio VBG pH 7.29 L VBG pCO2 49 VBG pO2 30 VBG HCO3 23 VBG O2 Saturation < 60.0 VBG Base Excess -4.1 Barometric Pressure 741.4 Sodium Potassium Chloride Carbon Dioxide Anion Gap BUN Creatinine Est Cr Clr Drug Dosing Est GFR ( Amer) Est GFR (Non-Af Amer) BUN/Creatinine Ratio Glucose POC Glucose Lactate 1.5 Calcium Phosphorus Magnesium Total Bilirubin Direct Bilirubin AST ALT Alkaline Phosphatase Troponin I Total Protein Albumin Globulin Albumin/Globulin Ratio Lipase Beta-Hydroxybutyric Acd Procalcitonin Urine Color Yellow Urine Appearance Cloudy A Urine pH 5.0 Ur Specific H[place]ins 1.022 Urine Protein 2+ H Urine Glucose (UA) 2+ H Urine Ketones Trace H Urine Blood Trace H Urine Nitrite Negative Urine Bilirubin Negative Urine Urobilinogen Negative Ur Leukocyte Esterase Trace H Urine WBC (Auto) 10-30 H Urine RBC (Auto) 0-4 U Hyaline Cast (Auto) 5-10 H U Epithel Cells (Auto) >30 H Urine Bacteria (Auto) Negative COVID-19 Eval Order SARS-CoV-2 (PCR) Influenza Type A (PCR) Influenza Type B (PCR) RSV (RT-PCR) 07/28/20 07/28/20 07/28/20 08:05 08:08 08:22 WBC 3.89 L RBC 4.29 Hgb 13.4 Hct 39.8 MCV 92.8 MCH 31.2 MCHC 33.7 RDW Std Deviation 44.6 RDW Coeff of Lebron 13.1 Plt Count 215 MPV 11.1 H Neutrophils % (Manual) Lymphocytes % (Manual) Reactive Lymphs % (Man) Monocytes % (Manual) Eosinophils % (Manual) Basophils % (Manual) Neutrophils # (Manual) Total Absolute Neuts Lymphocytes # (Manual) Reactive Lymphs # Total Abs Lymphocytes Monocytes # (Manual) Eosinophils # (Manual) Basophils # (Manual) PT INR APTT PTT Ratio VBG pH VBG pCO2 VBG pO2 VBG HCO3 VBG O2 Saturation VBG Base Excess Barometric Pressure Sodium Potassium Chloride Carbon Dioxide Anion Gap BUN Creatinine Est Cr Clr Drug Dosing Est GFR ( Amer) Est GFR (Non-Af Amer) BUN/Creatinine Ratio Glucose POC Glucose 565 H* > 600 H* Lactate Calcium Phosphorus Magnesium Total Bilirubin Direct Bilirubin AST ALT Alkaline Phosphatase Troponin I Total Protein Albumin Globulin Albumin/Globulin Ratio Lipase Beta-Hydroxybutyric Acd Procalcitonin Urine Color Urine Appearance Urine pH Ur Specific H[place]ins Urine Protein Urine Glucose (UA) Urine Ketones Urine Blood Urine Nitrite Urine Bilirubin Urine Urobilinogen Ur Leukocyte Esterase Urine WBC (Auto) Urine RBC (Auto) U Hyaline Cast (Auto) U Epithel Cells (Auto) Urine Bacteria (Auto) COVID-19 Eval Order SARS-CoV-2 (PCR) Influenza Type A (PCR) Influenza Type B (PCR) RSV (RT-PCR) 07/28/20 07/28/20 07/28/20 08:22 08:59 09:52 WBC RBC Hgb Hct MCV MCH MCHC RDW Std Deviation RDW Coeff of Lebron Plt Count MPV Neutrophils % (Manual) Lymphocytes % (Manual) Reactive Lymphs % (Man) Monocytes % (Manual) Eosinophils % (Manual) Basophils % (Manual) Neutrophils # (Manual) Total Absolute Neuts Lymphocytes # (Manual) Reactive Lymphs # Total Abs Lymphocytes Monocytes # (Manual) Eosinophils # (Manual) Basophils # (Manual) PT INR APTT PTT Ratio VBG pH VBG pCO2 VBG pO2 VBG HCO3 VBG O2 Saturation VBG Base Excess Barometric Pressure Sodium 131 L Potassium 5.9 H D Chloride 97 L Carbon Dioxide 16 L Anion Gap 18.0 H BUN 66 H Creatinine 7.33 H* Est Cr Clr Drug Dosing 7.2 Est GFR ( Amer) 6.8 Est GFR (Non-Af Amer) 5.9 BUN/Creatinine Ratio 8.9 L Glucose 637 H* POC Glucose > 600 H* > 600 H* Lactate Calcium 8.9 Phosphorus Magnesium Total Bilirubin Direct Bilirubin AST ALT Alkaline Phosphatase Troponin I Total Protein Albumin Globulin Albumin/Globulin Ratio Lipase Beta-Hydroxybutyric Acd 48.96 H Procalcitonin Urine Color Urine Appearance Urine pH Ur Specific [place]ins Urine Protein Urine Glucose (UA) Urine Ketones Urine Blood Urine Nitrite Urine Bilirubin Urine Urobilinogen Ur Leukocyte Esterase Urine WBC (Auto) Urine RBC (Auto) U Hyaline Cast (Auto) U Epithel Cells (Auto) Urine Bacteria (Auto) COVID-19 Eval Order SARS-CoV-2 (PCR) Influenza Type A (PCR) Influenza Type B (PCR) RSV (RT-PCR) 07/28/20 07/28/20 07/28/20 11:51 11:53 13:01 WBC RBC Hgb Hct MCV MCH MCHC RDW Std Deviation RDW Coeff of Lebron Plt Count MPV Neutrophils % (Manual) Lymphocytes % (Manual) Reactive Lymphs % (Man) Monocytes % (Manual) Eosinophils % (Manual) Basophils % (Manual) Neutrophils # (Manual) Total Absolute Neuts Lymphocytes # (Manual) Reactive Lymphs # Total Abs Lymphocytes Monocytes # (Manual) Eosinophils # (Manual) Basophils # (Manual) PT INR APTT PTT Ratio VBG pH VBG pCO2 VBG pO2 VBG HCO3 VBG O2 Saturation VBG Base Excess Barometric Pressure Sodium Potassium Chloride Carbon Dioxide Anion Gap BUN Creatinine Est Cr Clr Drug Dosing Est GFR ( Amer) Est GFR (Non-Af Amer) BUN/Creatinine Ratio Glucose POC Glucose > 600 H* 579 H* 483 H* Lactate Calcium Phosphorus Magnesium Total Bilirubin Direct Bilirubin AST ALT Alkaline Phosphatase Troponin I Total Protein Albumin Globulin Albumin/Globulin Ratio Lipase Beta-Hydroxybutyric Acd Procalcitonin Urine Color Urine Appearance Urine pH Ur Specific [place]ins Urine Protein Urine Glucose (UA) Urine Ketones Urine Blood Urine Nitrite Urine Bilirubin Urine Urobilinogen Ur Leukocyte Esterase Urine WBC (Auto) Urine RBC (Auto) U Hyaline Cast (Auto) U Epithel Cells (Auto) Urine Bacteria (Auto) COVID-19 Eval Order SARS-CoV-2 (PCR) Influenza Type A (PCR) Influenza Type B (PCR) RSV (RT-PCR) 07/28/20 07/28/20 13:55 14:57 WBC RBC Hgb Hct MCV MCH MCHC RDW Std Deviation RDW Coeff of Lebron Plt Count MPV Neutrophils % (Manual) Lymphocytes % (Manual) Reactive Lymphs % (Man) Monocytes % (Manual) Eosinophils % (Manual) Basophils % (Manual) Neutrophils # (Manual) Total Absolute Neuts Lymphocytes # (Manual) Reactive Lymphs # Total Abs Lymphocytes Monocytes # (Manual) Eosinophils # (Manual) Basophils # (Manual) PT INR APTT PTT Ratio VBG pH VBG pCO2 VBG pO2 VBG HCO3 VBG O2 Saturation VBG Base Excess Barometric Pressure Sodium Potassium Chloride Carbon Dioxide Anion Gap BUN Creatinine Est Cr Clr Drug Dosing Est GFR ( Amer) Est GFR (Non-Af Amer) BUN/Creatinine Ratio Glucose POC Glucose 427 H* 379 H* Lactate Calcium Phosphorus Magnesium Total Bilirubin Direct Bilirubin AST ALT Alkaline Phosphatase Troponin I Total Protein Albumin Globulin Albumin/Globulin Ratio Lipase Beta-Hydroxybutyric Acd Procalcitonin Urine Color Urine Appearance Urine pH Ur Specific H[place]ins Urine Protein Urine Glucose (UA) Urine Ketones Urine Blood Urine Nitrite Urine Bilirubin Urine Urobilinogen Ur Leukocyte Esterase Urine WBC (Auto) Urine RBC (Auto) U Hyaline Cast (Auto) U Epithel Cells (Auto) Urine Bacteria (Auto) COVID-19 Eval Order SARS-CoV-2 (PCR) Influenza Type A (PCR) Influenza Type B (PCR) RSV (RT-PCR) (1) Nausea & vomiting Vomiting Intractability: non-intractable Vomiting type: unspecified Qualified Code(s): R11.2 - Nausea with vomiting, unspecified (2) Abdominal pain Abdominal location: generalized Qualified Code(s): R10.84 - Generalized abdominal pain
[2020-07-28] MEDS: ACETAMINOPHEN 1,000 MG/100 ML VIAL IV SCH ×2 (16:06→23:30)
[2020-07-28 16:20] LABS: BUN Creatinine Ratio 9.1 (10-20); Calcium 8.9 mg/dl (8.5-10.1); Creatinine Clr Calc Pharmacy 6.9 ml/min; Est GFR (African American) 6.5; Est GFR (Non-African American) 5.6; Potassium 4.7 mmol/L (3.5-5.1)
[2020-07-28] MEDS ORDERED: INSULIN GLARGINE SOLOSTAR 100 UNITS/ML 3 ML PEN SQ SCH (21:00)
[2020-07-28] MEDS: INSULIN ASPART 100 UNITS/ML 3 ML PEN SC SCH ×2 (21:46→23:31)
[2020-07-28] MEDS: GABAPENTIN 100 MG CAP PO SCH (21:53)
[2020-07-28] MEDS: lamoTRIgine 25 MG TAB PO SCH (21:53)
[2020-07-28] MEDS: SERTRALINE HCL 50 MG TABLET PO SCH (21:53)
[2020-07-28] MEDS: MELATONIN 3 MG TAB PO SCH (21:53)
[2020-07-28] MEDS: ATORVASTATIN 40 MG TAB PO SCH (21:53)
[2020-07-28] MEDS: ARIPiprazole 5 MG TAB PO SCH (21:54)
[2020-07-28] MEDS: TEMAZEPAM 15 MG CAPSULE PO SCH (21:55)
[2020-07-28] MEDS: traZODone HCL 50 MG TAB PO PRN (21:55)
[2020-07-29] MEDS: INSULIN ASPART 100 UNITS/ML 3 ML PEN SC SCH ×4 (04:00→21:36)
[2020-07-29] MEDS ORDERED: INSULIN HUMAN REGULAR PER UNIT 5 UNITS in SYRINGE 4.95 ML IV ONE (04:15)
--- NOTE | 2020-07-29 06:02 | Electrocardiogram Report ---
Test Reason : Blood Pressure : / mmHG Vent. Rate : 098 BPM Atrial Rate : 098 BPM P-R Int : 166 ms QRS Dur : 074 ms QT Int : 386 ms P-R-T Axes : 060 010 041 degrees QTc Int : 492 ms Normal sinus rhythm Possible Left atrial enlargement Septal infarct , age undetermined Abnormal ECG When compared with ECG of 22-JUL-2020 17:23, Septal infarct is now Present Confirmed by Clay Griffni ([id number] on 07/29/2020 6:02:16 AM Referred By: REFERRED SELF Confirmed By:Clay Griffin
[2020-07-29] MEDS: ONDANSETRON INJ 2 MG/ML 2 ML VIAL IV PRN (06:13)
[2020-07-29 06:28] LABS: Hematocrit (blood only) 37.5 % (37-47); Hemoglobin 12.8 g/dL (12.0-16.0); Mean Corpuscular Hemoglobin 30.8 pg (25-34); Mean Corpuscular Hgb Conc 34.1 g/dL (32-36); Mean Corpuscular Volume 90.1 fL (80-100); Mean Platelet Volume 10.8 fL (7.4-10.4); Platelet Count 226 K/uL (130-400); RDW Coefficient of Variation 13.1 % (11.5-14.5); RDW Standard Deviation 42.8 fL (36.4-46.3); Red Blood Count 4.16 M/uL (4.2-5.4); White Blood Count 3.29 K/uL (4.8-10.8)
[2020-07-29 07:21] LABS: BUN Creatinine Ratio 5.8 (10-20); Calcium 8.5 mg/dl (8.5-10.1); Creatinine Clr Calc Pharmacy 11.2 ml/min; Est GFR (African American) 11.6; Magnesium 2.2 mg/dl (1.8-2.4)
[2020-07-29] MEDS ORDERED: INSULIN ASPART 100 UNITS/ML 3 ML PEN SC SCH (07:30)
[2020-07-29 07:33] LABS: Beta-Hydroxybutyrate 27.65 mg/dl (0.2-2.81)
[2020-07-29] MEDS: carvediloL 12.5 MG TAB PO SCH ×2 (08:04→20:24)
[2020-07-29] MEDS: levETIRAcetam 500 MG TAB PO SCH ×2 (08:04→20:22)
[2020-07-29] MEDS: SEVELAMER HCL 800 MG TABLET PO SCH ×3 (08:04→16:58)
[2020-07-29] MEDS: NEPHROCAPS PO SCH (08:04)
[2020-07-29] MEDS: ACETAMINOPHEN 1,000 MG/100 ML VIAL IV SCH (08:05)
[2020-07-29] MEDS: linaCLOtide 72 MCG CAPSULE PO SCH (08:05)
[2020-07-29] MEDS ORDERED: INSULIN GLARGINE SOLOSTAR 100 UNITS/ML 3 ML PEN SC ONE (08:45)
[2020-07-29] MEDS ORDERED: ERGOCALCIFEROL 50,000 UNITS 1250 MCG CAP PO SCH (09:00)
--- NOTE | 2020-07-29 09:41 | Pharmacy Report ---
Pharmacy Glycemic Short Note 2 - Date of Service July 29, 2020 - Glycemic Short BSG Results (Last 24 hours): 07/28/20 07/28/20 07/28/20 08:22 09:52 11:51 Glucose 637 H* POC Glucose > 600 H* > 600 H* 07/28/20 07/28/20 07/28/20 11:53 13:01 13:55 Glucose POC Glucose 579 H* 483 H* 427 H* 07/28/20 07/28/20 07/28/20 14:57 15:45 15:56 Glucose 286 H POC Glucose 379 H* 287 H 07/28/20 07/28/20 07/28/20 16:59 18:00 19:06 Glucose POC Glucose 180 H 158 H 126 H 07/28/20 07/28/20 07/28/20 19:56 21:02 21:09 Glucose POC Glucose 110 H 109 H 157 H 07/28/20 07/28/20 07/29/20 21:17 23:00 03:48 Glucose POC Glucose 117 H 164 H 519 H* 07/29/20 07/29/20 07/29/20 03:51 05:05 05:07 Glucose POC Glucose 472 H* 449 H* 425 H* 07/29/20 07/29/20 07/29/20 05:33 06:03 06:04 Glucose 387 H* POC Glucose 331 H* 324 H* 07/29/20 07/29/20 07/29/20 07:10 07:58 09:03 Glucose POC Glucose 293 H 274 H 285 H OUTPATIENT ANTIDIABETIC REGIMEN: * Lantus 10 units SQ qHS, lispro 5 units TID with meals * A1c = 8.8% (01/04/20) - A1c pending on 07/29 ASSESSMENT: 07/29 * Insulin drip self-stopped yesterday evening, but BSG's increased overnight to >500 mg/dL and it was restarted. Drip currently at 1.9 units/hr and BSG is 274 mg/dL. * Anion gap still elevated, but CO2 is adequate - doubt abnormalities are due to DKA at this point and instead likely ESRD * Discussed w Dr. 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 ESRD on HD (). * Severe hyperglycemia this AM. Labs indicate patient may be in mild-moderate DKA, however it is difficult to determine how much of an effect ESRD is having on electrolyte/acid base imbalance. Of note, patient missed her dose of basal insulin last evening. Uncertain when last dose of insulin was given prior to admission. * Discussed case with Hospitalist; patient will be starting on IV insulin infusion at reduced infusion rate to ensure glucose levels are not corrected too quickly. Nephrology does not want patient on IV fluids. Patient to receive HD today. Labs will be repeated after HD. Continue IV insulin infusion until more lab data available. PLAN FOR INPATIENT GLYCEMIC CONTROL: * IV insulin infusion per protocol * Decrease Goal range: 120-180 mg/dL * OK to transition once BSG's are consistently < 180 mg/dL and drip is < 1 unit/hr * Basal insulin * Lantus 20 units SQ this morning * Further Lantus orders to be determined on 220 AM * CHO coverage while on drip: CHO ratio of 13 g CHO/unit Orders for if/when patient meets criteria for transition off insulin drip: * Lantus - patient should not need to be redosed until 20 AM * Bolus insulin * NovoLog per scale ACHS or Q6hrs while NPO * Goal Range: Low 120 mg/dL - 160 High mg/dL * Correction Factor: 35 mg/dL/unit * Nutritional / Prandial insulin per carb ratio of 1 unit per 13 grams CHO consumed * Overnight checks with coverage at 00,04 PLAN FOR DISCHARGE: * tbd
[2020-07-29] MEDS ORDERED: [UNRECOGNIZED DRUG - REMARK] ONE (10:00)
[2020-07-29] MEDS: INSULIN REGULAR 250 UNITS in SODIUM CHLORIDE 0.9% 247.5 ML IV SCH (11:01)
--- NOTE | 2020-07-29 13:54 | Hospitalist Progress Note ---
Date of Service July 29, 2020 Assessment & Plan (1) Diabetic gastroparesis: (2) Nausea & vomiting: (3) Abdominal pain: Abdominal pain with nausea vomiting Secondary to diabetic gastroprocess Improving Continue IV Reglan and Zofran Imaging studies are unremarkable Continue Linzess Advance diet and monitor tolerance (4) Acute hyperglycemia: Hyperglycemia in a patient with type 1 diabetes Patient had anion gap acidosis which are likely due to mixed picture of ketoacidosis plus end-stage renal disease. Transition from insulin drip to sq insulin Advance diet and monitor Monitor BMP (5) End-stage renal disease (ESRD): Nephrology on board Got HD yesterday (6) Hypertension: Controlled Continue carvedilol (7) Seizure: Continue Keppra (8) CVA (cerebral vascular accident): Last cath showed nonocclusive CAD Continue statin Admission and Anticipated Discharge Date Admission Date: July 27, 2020 Subjective Patient seen and examined. Reports no more vomiting since yesterday Still has nausea but improved. Also reports that abdominal pain has improved. Has been tolerating clear liquid well today. No fevers, chills No dysuria, frequency or urgency Reports some left shoulder pain (acute on chronic) Physical Exam Constitutional: + well hydrated; no acute distress Eyes: PERRL, conjunctivae normal, anicteric sclerae ENMT: external ear and nose normal, oropharynx normal Respiratory: normal respiratory effort, lungs clear to auscultation Cardiovascular: Rate/Rhythm: regular rate and regular rhythm S1 S2 Gastrointestinal (Abdomen): normal bowel sounds, soft, nontender, no hepatosplenomegaly Musculoskeletal: no cyanosis or clubbing, extremities motor strength 5/5 Left shoulder - Nontender, no swelling, Mild pain with passive/active abduction above the head. Neurologic: PERRL, EOMI, accommodation nl, no face palsy, no dysarthria Psychiatric: A+Ox3, euthymic affect Results & Data Results & Data ([facility]) Vital Signs (Past 12 Hours) Vital Signs Temp Pulse Resp BP Pulse Ox 07/29/20 07:06 36.8 C 64 16 125/72 99 Laboratory Results Abnormal lab results 07/28/20 07/28/20 07/28/20 Range/Units 13:55 14:57 15:45 WBC (4.8-10.8) K/uL RBC (4.2-5.4) M/uL MPV (7.4-10.4) fL Sodium (136-145) mmol/L Carbon Dioxide 19 L (21-32) mmol/L Anion Gap 13.0 H (3-11) BUN 69 H (7-18) mg/dl Creatinine 7.60 H* (0.6-1.2) mg/dl BUN/Creatinine Ratio 9.1 L (10-20) Glucose 286 H (70-99) mg/dl POC Glucose 427 H* 379 H* (70-99) mg/dl Beta-Hydroxybutyric Acd (0.2-2.81) mg/dl 07/28/20 07/28/20 07/28/20 Range/Units 15:56 16:59 18:00 WBC (4.8-10.8) K/uL RBC (4.2-5.4) M/uL MPV (7.4-10.4) fL Sodium (136-145) mmol/L Carbon Dioxide (21-32) mmol/L Anion Gap (3-11) BUN (7-18) mg/dl Creatinine (0.6-1.2) mg/dl BUN/Creatinine Ratio (10-20) Glucose (70-99) mg/dl POC Glucose 287 H 180 H 158 H (70-99) mg/dl Beta-Hydroxybutyric Acd (0.2-2.81) mg/dl 07/28/20 07/28/20 07/28/20 Range/Units 19:06 19:56 21:02 WBC (4.8-10.8) K/uL RBC (4.2-5.4) M/uL MPV (7.4-10.4) fL Sodium (136-145) mmol/L Carbon Dioxide (21-32) mmol/L Anion Gap (3-11) BUN (7-18) mg/dl Creatinine (0.6-1.2) mg/dl BUN/Creatinine Ratio (10-20) Glucose (70-99) mg/dl POC Glucose 126 H 110 H 109 H (70-99) mg/dl Beta-Hydroxybutyric Acd (0.2-2.81) mg/dl 07/28/20 07/28/20 07/28/20 Range/Units 21:09 21:17 23:00 WBC (4.8-10.8) K/uL RBC (4.2-5.4) M/uL MPV (7.4-10.4) fL Sodium (136-145) mmol/L Carbon Dioxide (21-32) mmol/L Anion Gap (3-11) BUN (7-18) mg/dl Creatinine (0.6-1.2) mg/dl BUN/Creatinine Ratio (10-20) Glucose (70-99) mg/dl POC Glucose 157 H 117 H 164 H (70-99) mg/dl Beta-Hydroxybutyric Acd (0.2-2.81) mg/dl 07/29/20 07/29/20 07/29/20 Range/Units 03:48 03:51 05:05 WBC (4.8-10.8) K/uL RBC (4.2-5.4) M/uL MPV (7.4-10.4) fL Sodium (136-145) mmol/L Carbon Dioxide (21-32) mmol/L Anion Gap (3-11) BUN (7-18) mg/dl Creatinine (0.6-1.2) mg/dl BUN/Creatinine Ratio (10-20) Glucose (70-99) mg/dl POC Glucose 519 H* 472 H* 449 H* (70-99) mg/dl Beta-Hydroxybutyric Acd (0.2-2.81) mg/dl 07/29/20 07/29/20 07/29/20 Range/Units 05:07 05:33 05:33 WBC 3.29 L (4.8-10.8) K/uL RBC 4.16 L (4.2-5.4) M/uL MPV 10.8 H (7.4-10.4) fL Sodium 133 L (136-145) mmol/L Carbon Dioxide 17 L (21-32) mmol/L Anion Gap 18.0 H (3-11) BUN 27 H D (7-18) mg/dl Creatinine 4.71 H* D (0.6-1.2) mg/dl BUN/Creatinine Ratio 5.8 L (10-20) Glucose 387 H* (70-99) mg/dl POC Glucose 425 H* (70-99) mg/dl Beta-Hydroxybutyric Acd 27.65 H (0.2-2.81) mg/dl 07/29/20 07/29/20 07/29/20 Range/Units 06:03 06:04 07:10 WBC (4.8-10.8) K/uL RBC (4.2-5.4) M/uL MPV (7.4-10.4) fL Sodium (136-145) mmol/L Carbon Dioxide (21-32) mmol/L Anion Gap (3-11) BUN (7-18) mg/dl Creatinine (0.6-1.2) mg/dl BUN/Creatinine Ratio (10-20) Glucose (70-99) mg/dl POC Glucose 331 H* 324 H* 293 H (70-99) mg/dl Beta-Hydroxybutyric Acd (0.2-2.81) mg/dl 07/29/20 07/29/20 07/29/20 Range/Units 07:58 09:03 10:00 WBC (4.8-10.8) K/uL RBC (4.2-5.4) M/uL MPV (7.4-10.4) fL Sodium (136-145) mmol/L Carbon Dioxide (21-32) mmol/L Anion Gap (3-11) BUN (7-18) mg/dl Creatinine (0.6-1.2) mg/dl BUN/Creatinine Ratio (10-20) Glucose (70-99) mg/dl POC Glucose 274 H 285 H 250 H (70-99) mg/dl Beta-Hydroxybutyric Acd (0.2-2.81) mg/dl 07/29/20 07/29/20 07/29/20 Range/Units 10:59 11:59 12:59 WBC (4.8-10.8) K/uL RBC (4.2-5.4) M/uL MPV (7.4-10.4) fL Sodium (136-145) mmol/L Carbon Dioxide (21-32) mmol/L Anion Gap (3-11) BUN (7-18) mg/dl Creatinine (0.6-1.2) mg/dl BUN/Creatinine Ratio (10-20) Glucose (70-99) mg/dl POC Glucose 184 H 136 H 189 H (70-99) mg/dl Beta-Hydroxybutyric Acd (0.2-2.81) mg/dl (1) Nausea & vomiting Vomiting Intractability: non-intractable Vomiting type: unspecified Qualified Code(s): R11.2 - Nausea with vomiting, unspecified (2) Abdominal pain Abdominal location: generalized Qualified Code(s): R10.84 - Generalized abdominal pain
[2020-07-29] MEDS: ACETAMINOPHEN 325 MG TAB PO PRN ×2 (16:02→20:13)
[2020-07-29] MEDS: lamoTRIgine 25 MG TAB PO SCH (20:22)
[2020-07-29] MEDS: SERTRALINE HCL 50 MG TABLET PO SCH (20:22)
[2020-07-29] MEDS: MELATONIN 3 MG TAB PO SCH (20:22)
[2020-07-29] MEDS: ATORVASTATIN 40 MG TAB PO SCH (20:22)
[2020-07-29] MEDS: GABAPENTIN 100 MG CAP PO SCH (20:22)
[2020-07-29] MEDS: ARIPiprazole 5 MG TAB PO SCH (20:22)
[2020-07-29] MEDS: TEMAZEPAM 15 MG CAPSULE PO SCH (20:23)
[2020-07-29] MEDS: traZODone HCL 50 MG TAB PO PRN (20:24)
[2020-07-30] MEDS: INSULIN ASPART 100 UNITS/ML 3 ML PEN SC SCH ×6 (00:08→20:42)
[2020-07-30 06:17] LABS: Hematocrit (blood only) 36.6 % (37-47); Hemoglobin 12.2 g/dL (12.0-16.0); Mean Corpuscular Hemoglobin 30.8 pg (25-34); Mean Corpuscular Hgb Conc 33.3 g/dL (32-36); Mean Corpuscular Volume 92.4 fL (80-100); Platelet Count 226 K/uL (130-400); RDW Standard Deviation 43.9 fL (36.4-46.3); Red Blood Count 3.96 M/uL (4.2-5.4); White Blood Count 3.62 K/uL (4.8-10.8)
[2020-07-30] MEDS ORDERED: SODIUM CHLORIDE 0.9% 1000ML 1,000 ML IV PRN (07:00)
[2020-07-30 07:08] LABS: BUN Creatinine Ratio 6.4 (10-20); Calcium 8.3 mg/dl (8.5-10.1); Est GFR (Non-African American) 7.8; Potassium 4.6 mmol/L (3.5-5.1)
[2020-07-30] MEDS: levETIRAcetam 500 MG TAB PO SCH ×2 (08:30→21:11)
[2020-07-30] MEDS: SEVELAMER HCL 800 MG TABLET PO SCH ×3 (08:31→17:15)
[2020-07-30] MEDS: NEPHROCAPS PO SCH (08:31)
[2020-07-30] MEDS: linaCLOtide 72 MCG CAPSULE PO SCH (08:31)
[2020-07-30] MEDS: ACETAMINOPHEN 325 MG TAB PO PRN ×2 (08:39→19:56)
[2020-07-30] MEDS ORDERED: INSULIN GLARGINE SOLOSTAR 100 UNITS/ML 3 ML PEN SC SCH (09:00)
--- NOTE | 2020-07-30 09:14 | Hospitalist Progress Note ---
Date of Service July 30, 2020 Assessment & Plan (1) Diabetic gastroparesis: (2) Nausea & vomiting: (3) Abdominal pain: Abdominal pain with nausea and vomiting Secondary to diabetic gastroparesis Vomiting resolved Continue IV Reglan and Zofran Imaging studies are unremarkable Continue Linzess Tolerating diet well We will do lactulose and Dulcolax CT for constipation (4) Acute hyperglycemia: Hyperglycemia in a patient with type 1 diabetes Patient had anion gap acidosis which are likely due to mixed picture of ketoacidosis plus end-stage renal disease. Blood glucose better controlled. Anion gap normalized Continue subcutaneous insulin (5) End-stage renal disease (ESRD): Nephrology on board Scheduled for hemodialysis today (6) Hypertension: Controlled Continue carvedilol (7) Seizure: Continue Keppra (8) CVA (cerebral vascular accident): Last cath showed nonocclusive CAD Continue statin Admission and Anticipated Discharge Date Admission Date: July 29, 2020 Subjective Patient seen and examined. Reports vomiting has resolved but still has intermittent nausea and mild abdominal pain Reports constipation. States that she has not passed flatus since yesterday. Denies cough, chest pain, shortness of breath Denies dysuria,, frequency Physical Exam Constitutional: + well hydrated; no acute distress Eyes: PERRL, conjunctivae normal, anicteric sclerae ENMT: external ear and nose normal, oropharynx normal Respiratory: normal respiratory effort, lungs clear to auscultation Cardiovascular: Rate/Rhythm: regular rate and regular rhythm S1-S2 Gastrointestinal (Abdomen): normal bowel sounds, soft, nontender, no hepatosplenomegaly Musculoskeletal: no cyanosis or clubbing, extremities motor strength 5/5 Neurologic: PERRL, EOMI, accommodation nl, no face palsy, no dysarthria Psychiatric: A+Ox3, euthymic affect Results & Data Results & Data ([facility]) Vital Signs (Past 12 Hours) Vital Signs Temp Pulse Resp BP Pulse Ox 07/30/20 07:17 36.3 C L 68 16 144/70 H 98 07/29/20 22:23 36.7 C 64 16 123/56 L 98 Laboratory Results Laboratory Results - last 24 hr 07/29/20 07/29/20 07/29/20 05:33 05:33 11:59 WBC RBC Hgb Hct MCV MCH MCHC RDW Std Deviation RDW Coeff of Lebron Plt Count MPV Sodium Potassium Chloride Carbon Dioxide Anion Gap BUN Creatinine Est Cr Clr Drug Dosing Est GFR ( Amer) Est GFR (Non-Af Amer) BUN/Creatinine Ratio Glucose POC Glucose [address] Glu mmol/L Pending Estimated [address] Glu mg/dL Pending Hemoglobin A1c TNP Pending Calcium 07/29/20 07/29/20 07/29/20 12:59 14:01 15:04 WBC RBC Hgb Hct MCV MCH MCHC RDW Std Deviation RDW Coeff of [place]bron Plt Count MPV Sodium Potassium Chloride Carbon Dioxide Anion Gap BUN Creatinine Est Cr Clr Drug Dosing Est GFR ( Amer) Est GFR (Non-Af Amer) BUN/Creatinine Ratio Glucose POC Glucose 189 H 251 H [address] Glu mmol/L Estimated [address] Glu mg/dL Hemoglobin A1c Calcium 07/29/20 07/29/20 07/29/20 16:00 17:00 18:03 WBC RBC Hgb Hct MCV MCH MCHC RDW Std Deviation RDW Coeff of [place] Plt Count MPV Sodium Potassium Chloride Carbon Dioxide Anion Gap BUN Creatinine Est Cr Clr Drug Dosing Est GFR ( Amer) Est GFR (Non-Af Amer) BUN/Creatinine Ratio Glucose POC Glucose 194 H 137 H [address] Glu mmol/L [address] Glu mg/dL Hemoglobin A1c Calcium 07/29/20 07/30/20 07/30/20 20:37 00:03 03:56 WBC RBC Hgb Hct MCV MCH MCHC RDW Std Deviation RDW Coeff of [place]bron Plt Count MPV Sodium Potassium Chloride Carbon Dioxide Anion Gap BUN Creatinine Est Cr Clr Drug Dosing Est GFR ( Amer) Est GFR (Non-Af Amer) BUN/Creatinine Ratio Glucose POC Glucose 112 H [address] H [address] Glu mmol/L Estimated [address] Glu mg/dL Hemoglobin A1c Calcium 07/30/20 07/30/20 07/30/20 03:58 05:40 05:40 WBC 3.62 L RBC 3.96 L Hgb 12.2 Hct 36.6 L MCV 92.4 MCH 30.8 MCHC 33.3 RDW Std Deviation 43.9 RDW Coeff of Lebron 13.0 Plt Count 226 MPV 11.0 H Sodium 135 L Potassium 4.6 Chloride 101 Carbon Dioxide 24 Anion Gap 10.0 BUN 37 H Creatinine 5.82 H* D Est Cr Clr Drug Dosing 9.0 Est GFR ( Amer) 9.0 Est GFR (Non-Af Amer) 7.8 BUN/Creatinine Ratio 6.4 L Glucose 197 H POC Glucose [address] Glu mmol/L [address]imated [address] Glu mg/dL Hemoglobin A1c Calcium 8.3 L 07/30/20 08:10 WBC RBC Hgb Hct MCV MCH MCHC RDW Std Deviation RDW Coeff of Lebron Plt Count MPV Sodium Potassium Chloride Carbon Dioxide Anion Gap BUN Creatinine Est Cr Clr Drug Dosing Est GFR ( Amer) Est GFR (Non-Af Amer) BUN/Creatinine Ratio Glucose POC Glucose [address] Glu mmol/L [address] Glu mg/dL Hemoglobin A1c Calcium (1) Nausea & vomiting Vomiting Intractability: non-intractable Vomiting type: unspecified Qualified Code(s): R11.2 - Nausea with vomiting, unspecified (2) Abdominal pain Abdominal location: generalized Qualified Code(s): R10.84 - Generalized abdominal pain
[2020-07-30] MEDS ORDERED: bisacodyL 10 MG SUPP PR ONE (09:30)
[2020-07-30] MEDS: LIDOCAINE 5% 1 PATCH TD SCH (09:52)
--- NOTE | 2020-07-30 10:12 | Pharmacy Report ---
Pharmacy Glycemic Short Note 2 - Date of Service July 30, 2020 - Glycemic Short BSG Results (Last 24 hours): 07/29/20 07/29/20 07/29/20 10:59 11:59 12:59 Glucose POC Glucose 184 H 136 H 189 H 07/29/20 07/29/20 07/29/20 14:01 15:04 16:00 Glucose POC Glucose 251 H 252 H 194 H 07/29/20 07/29/20 07/29/20 17:00 18:03 20:37 Glucose POC Glucose 137 H 152 H 112 H 07/30/20 07/30/20 07/30/20 00:03 03:56 03:58 Glucose POC Glucose 171 H 225 H 199 H 07/30/20 07/30/20 05:40 08:10 Glucose 197 H POC Glucose 215 H OUTPATIENT ANTIDIABETIC REGIMEN: * Lantus 10 units SQ qHS, lispro 5 units TID with meals * A1c = 8.8% (01/04/20) - A1c pending on 07/29 ASSESSMENT: 07/30/20 * Patient faired well off insulin infusion (started stopped around dinnertime yesterday). Subsequent BSGs were 112-171-225 mg/dL. Fasting BSG was 215 mg/dL. * Give Lantus 20 units this morning ... although this is double the patient's home dose there is substantial data from previous hospitalizations that support this dosing. Patient also received additional 3 units of Novolog overnight suggesting that perhaps she is still basal deficient. * Utilize previously used Novolog parameters for now. 07/29 * Insulin drip self-stopped yesterday evening, but BSG's increased overnight to >500 mg/dL and it was restarted. Drip currently at 1.9 units/hr and BSG is 274 mg/dL. * Anion gap still elevated, but CO2 is adequate - doubt abnormalities are due to DKA at this point and instead likely ESRD * Discussed w Dr. Walsh r/e transition timing to basal/bolus - OK to transit ion once BSG's are consistently < 180 mg/dL and drip is <1 unit/hr * Will adjust insulin drip goal range to 120-180 mg/dL * Will increase Lantus slightly today, especially as patient may still be basal deficient if her dose was missed on 2/17 PHP DEVELOPER * Will fix CHO ratio to anticipated need during drip transition as insulin drip calculator may underestimate CHO coverage need when Lantus is on board 07/28 * Laura is a 49 yo type 1 diabetic admitted with nausea and vomiting secondary to severe gastroparesis. ESRD on HD (). * Severe hyperglycemia this AM. Labs indicate patient may be in mild-moderate DKA, however it is difficult to determine how much of an effect ESRD is having on electrolyte/acid base imbalance. Of note, patient missed her dose of basal insulin last evening. Uncertain when last dose of insulin was given prior to admission. * Discussed case with Hospitalist; patient will be starting on IV insulin infusion at reduced infusion rate to ensure glucose levels are not corrected too quickly. Nephrology does not want patient on IV fluids. Patient to receive HD today. Labs will be repeated after HD. Continue IV insulin infusion until more lab data available. PLAN FOR INPATIENT GLYCEMIC CONTROL: * Basal insulin * Lantus 20 units SQ daily * Bolus insulin * NovoLog per scale ACHS or Q6hrs while NPO * Goal Range: Low 120 mg/dL - 160 High mg/dL * Correction Factor: 35 mg/dL/unit * Nutritional / Prandial insulin per carb ratio of 1 unit per 13 grams CHO consumed PLAN FOR DISCHARGE: * tbd
--- NOTE | 2020-07-30 10:21 | Nephrology Progress Note ---
Date of Service July 30, 2020 Assessment & Plan (1) ESRD (end stage renal disease) on dialysis: Normal days of dialysis are Saturday and Saturday. Dialysis today with 2.5 to 3 L UF. Dialysis will be Saturday if still in-house. Likely to be discharged tomorrow (2) Nausea & vomiting: Longstanding secondary to gastroparesis, Marginally better. Managed by primary. Admission and Anticipated Discharge Date Admission Date: July 29, 2020 Subjective ESRD patient on hemodialysis Saturday, Admitted with abdominal pain bloating and constipation secondary to gastroparesis. Seen and examined while on dialysis. not in any distress, Trace pedal edema, Access working fine. Still constipated, terminal pain better Review of Systems Review of Systems: All systems reviewed & are unremarkable except as noted in HPI & below Physical Exam Physical Exam: Constitutional:no acute distress Eyes: PERRL, conjunctivae normal, anicteric sclerae ENMT: external ear and nose normal, oropharynx normal Respiratory: normal respiratory effort, lungs clear to auscultation Cardiovascular: Rate/Rhythm: regular rate and regular rhythm S1 S2 Gastrointestinal (Abdomen): normal bowel sounds, soft, nontender, no hepatosplenomegaly Musculoskeletal: no cyanosis or clubbing, extremities motor strength 5/5 Left shoulder - Nontender, no swelling, Mild pain with passive/active abduction above the head. Neurologic: Alert and oriented, no focal neurology. Results & Data ([facility]) Vital Signs (Past 12 Hours) Vital Signs Temp Pulse Resp BP Pulse Ox 07/30/20 07:17 36.3 C L 68 16 144/70 H 98 07/29/20 22:23 36.7 C 64 16 123/56 L 98 Laboratory Results 07/30/20 05:40 07/30/20 05:40 (1) Nausea & vomiting Vomiting Intractability: non-intractable Vomiting type: unspecified Qualified Code(s): R11.2 - Nausea with vomiting, unspecified
[2020-07-30] MEDS: carvediloL 12.5 MG TAB PO SCH ×2 (10:47→21:10)
[2020-07-30] MEDS: ARIPiprazole 5 MG TAB PO SCH (21:10)
[2020-07-30] MEDS: traZODone HCL 50 MG TAB PO PRN (21:10)
[2020-07-30] MEDS: ATORVASTATIN 40 MG TAB PO SCH (21:11)
[2020-07-30] MEDS: SERTRALINE HCL 50 MG TABLET PO SCH (21:11)
[2020-07-30] MEDS: lamoTRIgine 25 MG TAB PO SCH (21:11)
[2020-07-30] MEDS: MELATONIN 3 MG TAB PO SCH (21:11)
[2020-07-30] MEDS: TEMAZEPAM 15 MG CAPSULE PO SCH (21:11)
[2020-07-30] MEDS: GABAPENTIN 100 MG CAP PO SCH (21:11)
[2020-07-31] MEDS: ACETAMINOPHEN 325 MG TAB PO PRN ×2 (00:09→06:03)
[2020-07-31 04:55] LABS: EAG mmol/L 10.3 (calc); HA1C 8.1 (<5.7)
[2020-07-31] MEDS: LIDOCAINE 5% 1 PATCH TD SCH (06:04)
[2020-07-31 06:05] LABS: Hemoglobin 12.4 g/dL (12.0-16.0); Mean Corpuscular Hemoglobin 31.1 pg (25-34); Mean Corpuscular Hgb Conc 33.5 g/dL (32-36); Mean Corpuscular Volume 92.7 fL (80-100); Mean Platelet Volume 11.3 fL (7.4-10.4); Platelet Count 206 K/uL (130-400); RDW Standard Deviation 44.6 fL (36.4-46.3); Red Blood Count 3.99 M/uL (4.2-5.4); White Blood Count 3.06 K/uL (4.8-10.8)
[2020-07-31 06:38] LABS: BUN Creatinine Ratio 6.7 (10-20); Calcium 8.2 mg/dl (8.5-10.1); Creatinine Clr Calc Pharmacy 12.3 ml/min; Est GFR (African American) 13.1; Est GFR (Non-African American) 11.3
[2020-07-31] MEDS: NEPHROCAPS PO SCH (08:21)
[2020-07-31] MEDS: levETIRAcetam 500 MG TAB PO SCH (08:22)
[2020-07-31] MEDS: SEVELAMER HCL 800 MG TABLET PO SCH (08:22)
[2020-07-31] MEDS: linaCLOtide 72 MCG CAPSULE PO SCH (08:22)
[2020-07-31] MEDS: carvediloL 12.5 MG TAB PO SCH (08:23)
[2020-07-31] MEDS: INSULIN ASPART 100 UNITS/ML 3 ML PEN SC SCH (08:25)
[2020-07-31] MEDS ORDERED: INSULIN GLARGINE SOLOSTAR 100 UNITS/ML 3 ML PEN SC SCH (09:00)
--- NOTE | 2020-07-31 09:28 | Nephrology Progress Note ---
Date of Service July 31, 2020 Assessment & Plan (1) ESRD (end stage renal disease) on dialysis: Normal days of dialysis are Saturday and Saturday. Dialysis yesterday Next dialysis will be Saturday if still in-house. Likely to be discharged today (2) Nausea & vomiting: Longstanding secondary to gastroparesis, Better. Managed by primary. Admission and Anticipated Discharge Date Admission Date: July 29, 2020 Subjective ESRD patient on hemodialysis Saturday, Admitted with abdominal pain bloating and constipation secondary to gastroparesis. Comfortable not in respiratory distress electrolytes within normal range abdominal pain has almost resolved. Review of Systems Review of Systems: All systems reviewed & are unremarkable except as noted in HPI & below Physical Exam Physical Exam: Constitutional:no acute distress Eyes: PERRL, conjunctivae normal, anicteric sclerae ENMT: external ear and nose normal, oropharynx normal Respiratory: normal respiratory effort, lungs clear to auscultation Cardiovascular: Rate/Rhythm: regular rate and regular rhythm S1 S2 Gastrointestinal (Abdomen): normal bowel sounds, soft, nontender, no hepatosplenomegaly Musculoskeletal: no cyanosis or clubbing, extremities motor strength 5/5 Left shoulder - Nontender, no swelling, Mild pain with passive/active abduction above the head. Neurologic: Alert and oriented, no focal neurology. Results & Data ([facility]) Vital Signs (Past 12 Hours) Vital Signs Temp Pulse Resp BP Pulse Ox 07/31/20 08:20 68 131/74 07/31/20 07:01 36.8 C 68 16 151/74 H 99 07/30/20 21:38 36.7 C 74 16 113/65 99 Laboratory Results 07/31/20 05:34 07/31/20 05:34 (1) Nausea & vomiting Vomiting Intractability: non-intractable Vomiting type: unspecified Qualified Code(s): R11.2 - Nausea with vomiting, unspecified
--- NOTE | 2020-07-31 09:33 | Discharge Summary ---
Date of Service July 31, 2020 Admission HPI Per Admitting Provider 49-year-old female with past medical history significant for type 1 diabetes, end-stage renal disease on hemodialysis, chronic diastolic CHF, hx of CVA, history of COPD, CAD, GERD, gastroparesis, chronic constipation, hypertension, hyperlipidemia, prior gastrointestinal bleeding, history of seizure disorder, malnutrition, who lives with daughter and boyfriend, presents with nausea, vomiting, and abdominal pain. The patient says she had COVID vaccine last Saturday and since last Saturday she is having nausea, vomiting and abdominal pain. She was not able to eat much because of the vomiting, it was not getting better, so she came to the ER. In the ER, she was given Reglan and fluids. She is feeling better, but still has significant pain and nausea. So we are called for admission. She is due for dialysis tomorrow. She also complains of some headache, some shortness of breath, but denies any cough, no loss of sense of smell or taste, has some runny nose and sore throat for the last few days. No chest pain, no diarrhea or constipation, no blood in the stools. Makes urine, no burning micturition. Ambulates with a walker at home. In the ER, imaging studies, CT of the head was no acute findings. Chest x-ray was unremarkable. CT of the abdomen and pelvis, no acute findings. COVID was negative. Flu was negative. RSV was negative. Admission Exam Per Admitting Provider Constitutional: + well hydrated; no acute distress Eyes: PERRL, conjunctivae normal, anicteric sclerae ENMT: external ear and nose normal, oropharynx normal Respiratory: normal respiratory effort, lungs clear to auscultation Cardiovascular: Rate/Rhythm: regular rate and regular rhythm S1-S2 no pedal edema Gastrointestinal (Abdomen): Inspection/Auscultation: abdomen normal to inspection and normal bowel sounds; abdomen not distended Percussion/Palpation: + abdomen tender (Generalized mild tenderness) and abdomen soft; no guarding and abdomen not rigid Musculoskeletal: no cyanosis or clubbing, extremities motor strength 5/5 Neurologic: PERRL, EOMI, accommodation nl, no face palsy, no dysarthria Psychiatric: A+Ox3, euthymic affect Principal Diagnosis Nausea, vomiting Diabetic gastroparesis Acute hyperglycemia Discharge Exam Constitutional + well hydrated; no acute distress Eyes PERRL, conjunctivae normal, anicteric sclerae ENMT external ear and nose normal, oropharynx normal Respiratory normal respiratory effort, lungs clear to auscultation Cardiovascular Rate/Rhythm: regular rate and regular rhythm S1 S2 Gastrointestinal (Abdomen) normal bowel sounds, soft, nontender, no hepatosplenomegaly Musculoskeletal no cyanosis or clubbing, extremities motor strength 5/5 Neurologic PERRL, EOMI, accommodation nl, no face palsy, no dysarthria Psychiatric A+Ox3, euthymic affect Discharge Data Allergies Allergy/AdvReac Type Severity Reaction Status Date / Time Fish Containing Products Allergy Mild Hives Verified 07/22/20 18:44 latex Allergy Mild hives Verified 07/22/20 18:44 shellfish derived Allergy Mild Hives Verified 07/22/20 18:44 Consultations 07/27/20 20:48 ED Decision to Admit Stat 07/27/20 22:42 Consult Case Management - Discharge Planning Routine 07/28/20 08:00 Consult Nephrology Routine Ordered Studies 07/27/20 17:43 CT abd pelvis wo con Stat Lower chest: There is a small hiatal hernia. Liver: The unenhanced liver is normal in size, contour, and attenuation. There is no intrahepatic biliary ductal dilatation. Gallbladder: Surgically absent Spleen: Normal in size and attenuation. Pancreas: Unremarkable. Adrenal glands: Unremarkable. Kidneys: There are bilateral vascular calcifications. There is no hydronephrosis. Bowel: There are no transition zones to indicate bowel obstruction. There is no acute diverticulitis. By history the appendix is surgically absent. Peritoneum: There is no intraperitoneal free air or abdominal ascites. Vasculature: The abdominal aorta is normal in course and caliber. Adenopathy: None. Pelvic viscera: There is an indwelling IUD. Skeletal structures: No destructive osseous lesions are seen. IMPRESSION: 1. No acute intra-abdominal or pelvic findings 2. No evidence of bowel obstruction. No evidence of free air 3. No acute inflammatory changes CT head/brain wo con Stat No intra or extra-axial mass lesions are visualized. There is no CT evidence of acute cortical infarction. There is no evidence of midline shift. There is no acute hemorrhage. No calvarial fractures are visualized. There are patchy white matter hypodensities likely on a small vessel basis. There is an old left basal ganglia infarct. There is an old right thalamic infarct. There is no evidence of pathologic ventricular dilatation. 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 IMPRESSION: No acute intracranial findings Hospital Course (1) Diabetic gastroparesis: (2) Nausea & vomiting: (3) Abdominal pain: Abdominal pain with nausea and vomiting Secondary to diabetic gastroparesis Imaging studies are unremarkable Was managed with medications Nausea, vomiting and abd pain resolved Also had constipation which had resolved with treatment Patient reports she is out of lactulose at home but has all her other home meds. Script sent to pharmacy (4) Acute hyperglycemia: Hyperglycemia in a patient with type 1 diabetes Patient had anion gap acidosis which are likely due to mixed picture of ketoacidosis plus end-stage renal disease. Blood glucose better controlled. Anion gap normalized Home lantus increased to 12U daily Patient educated about this Continue insulin lispro 5u tid ac (5) End-stage renal disease (ESRD): Got HD while inpatient Continue HD and follow up with Digital Content Coordinator (6) Hypertension: Controlled Continue carvedilol (7) Seizure: Continue Keppra (8) CVA (cerebral vascular accident): Last cath showed nonocclusive CAD Continue statin Total Time Total Time Spent Total Time Spent (In Minutes): 40 Total Time Includes: Examination of the Patient, Discharge Planning and Medication Reconciliation Discharge Plan Discharge Items Patient Disposition: Home - Home Health Services Reason For Visit: N/V, ABDOMINAL PAIN Discharge Diagnosis: Diabetic Gastroparesis Hyperglycemia in a diabetic patient Activity: Resume your previous activity Non-emergency contact: Primary Care Provider and Tool Programmer Call non-emergency contact if: you have any medication questions and your symptoms worsen Follow-up/Referrals: Mitchel Santo MD [Primary Care Provider] - Diet: Carb Count or DM1 and Dialysis Renal Addtl Attending Provider Instructions: Mrs Cota. You came to the hospital complaining of nausea, vomiting and abdominal pain. You were evaluated and managed for these which are symptoms due to your gastroparesis. Your blood glucose was also very elevated requiring insulin drip for better control. You continued your routine dialysis while in the hospital. Your lantus was increased to 12Units daily as we discussed. Please continue to take your medications as prescribed. It is very important that you continue to follow up with Gastroenterology and your Primary Doctor for continued management of your medical problems. It was a pleasure taking care of you. Pending Studies at Discharge: No Stand-Alone Forms: My [facility], Smoking Cessation Medications and DC Order Prescriptions: Continued aripiprazole [Abilify] 5 mg tablet 5 mg PO HS RF: 0 atorvastatin [Lipitor] 40 mg tablet 40 mg PO HS RF: 0 trazodone 150 mg tablet 75 mg PO HS PRN (Reason: Sleep) RF: 0 buspirone 5 mg tablet 5 mg PO TID PRN (Reason: Anxiety) RF: 0 temazepam [Restoril] 15 mg capsule 15 mg PO HS RF: 0 hydroxyzine HCl 25 mg tablet 25 mg PO TID PRN (Reason: Anxiety) RF: 0 trimethobenzamide 300 mg Capsule 300 mg PO TID PRN (Reason: NAUSEA/VOMITING) RF: 0 levetiracetam [Keppra] 500 mg tablet 500 mg PO BID RF: 0 melatonin 3 mg Tablet 3 mg PO HS RF: 0 prochlorperazine maleate 5 mg Tablet 5 mg PO QID PRN (Reason: Nausea) RF: 0 lamotrigine [Lamictal] 25 mg tablet 50 mg PO HS RF: 0 ergocalciferol (vitamin D2) [Vitamin D2] 1,250 mcg (50,000 unit) Capsule 1,250 mcg PO WK RF: 0 sertraline [Zoloft] 50 mg tablet 50 mg PO HS RF: 0 insulin lispro [Admelog SoloStar U-100 Insulin] 100 unit/mL Insulin Pen 5 unit SUBCUT TIDM RF: 0 sevelamer carbonate 800 mg Tablet 800 mg PO TIDM RF: 0 benztropine 0.5 mg tablet 0.5 mg PO HS RF: 0 gabapentin 100 mg Tablet 0 mg PO HS RF: 0 carvedilol [Coreg] 12.5 mg Tablet 12.5 mg PO BID RF: 0 Linzess 72 mcg Capsule 72 mcg PO QAM RF: 0 [place] Caps 1 mg Capsule 1 cap PO DAILY RF: 0 lactulose 10 gram/15 mL Solution 10 g PO BID PRN (Reason: Constipation) Qty: 200 RF: 0 Changed Lantus Solostar U-100 Insulin 100 unit/mL (3 mL) insulin pen 12 unit subcut HS Qty: 15 RF: 0 Discharge Orders: Discharge Order (Routine); Ordered 07/31/20 Ordered By: Magda Mcgill/Other Patient Handouts: Managing Type 1 Diabetes Admission Data Admit Date/Time: 07/29/20 13:53 Attending Provider: Magda Walsh I. Admit Provider: Kaveh Thurston Primary Care Provider: Mitchel Santo Other Providers: Kaveh Thurston ; Nahomy Mejias ; [facility],Home [facility] Other Interventions: Discharge Summary Assessment (RN) Last Done: 07/31/20 10:38
== END 2020-07-31 11:02 | disposition home health service (06) | DRG 73 ==
LOC: 3E 17:16 → ED 17:16 → 3E 22:27

== ENCOUNTER 2020-09-09 11:04 | Inpatient (IN) ==
[2020-09-09] MEDS ORDERED: SODIUM CHLORIDE 0.9% 1000ML 2,000 ML IV ONE (11:47)
[2020-09-09] MEDS ORDERED: ONDANSETRON INJ 2 MG/ML 2 ML VIAL IV STA (11:48)
[2020-09-09] MEDS ORDERED: KETOROLAC TROMETHAMINE 15 MG/ML VIAL IV ONE (11:48)
--- NOTE | 2020-09-09 11:53 | Emergency Department Note ---
Impression & Plan Vomiting, DM type 1 (diabetes mellitus, type 1), CKD (chronic kidney disease), Acute hyperkalemia, Missed dialysis ED Provider Note NAME: KELLEN BECKER AGE: 50 SEX: F : 1970 ARRIVES VIA: Walk-In INFORMANT: Patient ED PROVIDER(S): Jaun Manuel Rodriguez DO CHIEF COMPLAINT: right flank pain HPI: Patient is a 50-year-old female who presents to the ER for right flank pain. This started 3 days ago. Associated with nausea and vomiting. She is a type I diabetic. Sugars have been normal. Pain has been getting gradually worse. Started with dysuria, urgency, and frequency. Feels like previous bouts of UTI although on dialysis she still makes urine. Gets dialysis Saturday and Saturday. She missed due to the vomiting. No other exace rbating or remitting factors. ROS: See above HPI for pertinent positives & negatives. A total of 10 systems reviewed and were otherwise negative. PAST MEDICAL HISTORY:See Below PAST SURGICAL HISTORY:See Below FAMILY HISTORY:See Below SOCIAL HISTORY:See Below HOME MEDICATIONS:See Below ALLERGIES:See Below VITALS:See Below PHYSICAL EXAMINATION: GENERAL: Sitting up in bed, alert, well appearing, well nourished, no distress, non-toxic EYE EXAM: normal conjunctiva. PERRL and EOM's grossly intact. OROPHARYNX:mucous membranes are moist NECK: supple, no nuchal rigidity, no adenopathy, non-tender LUNGS: Clear to auscultation. Normal chest wall mechanics HEART: no murmurs, S1 normal and S2 normal ABDOMEN: abdomen soft, tender in right lower quadrant, normo-active bowel sounds, no masses, no rebound or guarding. UPPER EXTREMITIES: Fistula in right upper extremity LOWER EXTREMITIES: No pitting edema. NEURO EXAM: Normal sensorium, cranial nerves II-XII grossly intact, normal speech, no gross weakness of arms, no gross weakness of legs. MEDICAL DECISION MAKING: Patient is a 48-year-old female end-stage kidney disease on dialysis still makes urine. She missed dialysis on . Persistent vomiting. IV was established blood work was obtained. Labs show mild leukopenia at 3.8. No significant anemia. Platelets 286. BMP with a potassium of 6 and creatinine 5.5. LFTs bilirubin troponin was unremarkable. Lipase was normal. UA was contaminated. was negative. Covid negative. CT abdomen pelvis was unremarkable. Patient was given 1 L of IV fluids. She was initially ordered to but this was canceled once it was discovered that she is a dialysis patient. Discussed with nephrology and they will dialyze her. Discussed with hospitalist they will admit her for observation. Triage Nursing notes reviewed. Limited review of prior medical records performed Vital Signs: reviewed and remarkable for no significant abnormalities Differential diagnosis: Differential diagnoses includes but is not limited to gastritis, peptic ulcer disease, GERD, gallbladder disease, pancreatitis, small bowel obstruction, acute coronary syndrome, pericarditis, ischemic bowel, irritable bowel disease, irri table bowel syndrome, appendicitis, diverticulitis, malignancy, hernia, urinary tract infection, torsion, /ectopic (if female), perforation, trauma, infectious. ER treatment provided: See below Diagnostics interpreted by me: ECG: Sinus rhythm rate 82 Normal axis No PVCs Septal Q waves QTC 486 Cardiac Monitoring: An order was placed for continuous cardiac monitoring. The monitor shows a rate of 80 with sinus rhythm. Laboratory studies: As stated above and show below. Imaging studies: CT abdomen pelvis shows no acute pathology Consultation(s): Discussed with Dr. Paez from [facility] nephrology recommends dialysis and observation Procedures: none Critical Care: None Past Med/Surg History Medical History (Updated 09/09/20 @ 16:24 by Juan Manuel Rodriguez DO) Anemia due to chronic kidney disease Arteriovenous fistula for hemodialysis in place, primary Bipolar disorder CKD (chronic kidney disease) stage V requiring chronic dialysis Coronary artery disease "2015 - cardiac catheterization showing nonobstructive coronary disease Stress test 06/2017 - possible small area of ischemia in the anterior wall" CVA (cerebral vascular accident) 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 history of CVA in 2018 Residual R sided weakness Depression Diabetic gastroparesis Diastolic heart failure DM type 1 (diabetes mellitus, type 1) ESRD (end stage renal disease) on dialysis GERD (gastroesophageal reflux disease) History of GI bleed Hyperlipidemia Hypertension Seizure Surgical History Hx of appendectomy Hx of cholecystectomy Hx of tubal ligation Family History (Updated 09/09/20 @ 15:38 by Keren Ding PA-C) Mother Coronary heart disease Hypertension Father Coronary heart disease Social History Smoking Status: Former smoker Tobacco Type: Cigarettes Second Hand Exposure: No; Hx Alcohol Use: No Hx Substance Use: No Preferred Language: Urdu Communication Ability: Effective [employer] Required: No Beliefs That Will Affect Care: None marital status: Single Current Living Situation: Family current occupational status: unemployed Feels Safe at Home: Yes Assistive Devices: Walker Allergies Allergies Allergy/AdvReac Type Severity Reaction Status Date / Time Fish Containing Products Allergy Mild Hives Verified 09/09/20 14:02 latex Allergy Mild hives Verified 09/09/20 14:02 shellfish derived Allergy Mild Hives Verified 09/09/20 14:02 Home Meds Home Medications Medication Instructions Recorded Confirmed aripiprazole [Abilify] 5 mg PO HS 05/20/19 09/09/20 levetiracetam [Keppra] 500 mg PO BID 06/20/19 09/09/20 atorvastatin [Lipitor] 40 mg PO HS 08/01/19 09/09/20 melatonin 3 mg PO HS 01/29/20 09/09/20 hydroxyzine HCl 25 mg PO TID PRN 02/20/20 09/09/20 temazepam [Restoril] 15 mg PO HS 02/20/20 09/09/20 trazodone 75 mg PO HS PRN 02/20/20 09/09/20 trimethobenzamide 300 mg PO TID PRN 03/21/20 09/09/20 benztropine 0.5 mg PO HS 07/27/20 09/09/20 ergocalciferol (vitamin D2) 1,250 mcg PO FR 07/27/20 09/09/20 [Vitamin D2] insulin lispro [Admelog SoloStar 7 unit SUBCUT TIDM 07/27/20 09/09/20 U-100 Insulin] lamotrigine [Lamictal] 50 mg PO HS 07/27/20 09/09/20 prochlorperazine maleate 5 mg PO QID PRN 07/27/20 09/09/20 sertraline [Zoloft] 75 mg PO HS 07/27/20 09/09/20 sevelamer carbonate 800 mg PO TIDM 07/27/20 09/09/20 buspirone 10 mg PO TID 08/16/20 09/09/20 metoclopramide HCl 5 mg PO TID PRN 08/16/20 09/09/20 calcium acetate(phosphat bind) 667 mg PO TIDM 09/09/20 09/09/20 lubiprostone 24 mcg PO BIDM 09/09/20 09/09/20 polyethylene glycol 3350 [Miralax] 17 g PO QAM 09/09/20 09/09/20 Previous Rx's Medication Instructions Recorded Lantus Solostar U-100 Insulin 12 unit SUBCUT HS #15 ml 07/31/20 lactulose 10 g PO BID PRN #200 ml 07/31/20 linaclotide [Linzess] 145 mcg PO QAM #30 cap 08/21/20 pantoprazole 40 mg PO QAM #30 tab 08/21/20 sucralfate 10 ml PO BID 30 Days #600 ml 08/21/20 Results & Data (ED) Vital Signs Vital Signs - 24 hr 09/09/20 11:06 09/09/20 12:30 09/09/20 12:31 Temperature 36.7 C Temperature Source Temporal Artery Scan Pulse Rate 89 90 Pulse Rate from SpO2 Sensor 90 Pulse Rhythm Regular Pulse Strength Normal Respiratory Rate 18 18 Respiratory Effort / Characteristics Non-Labored Spontaneous Respiratory Depth Normal Respiratory Pattern Regular Blood Pressure 164/83 H 193/103 H Blood Pressure Mean 110 133 Blood Pressure Position Sitting Pulse Oximetry 97 100 96 Oxygen Delivery Method Room Air Room Air Sepsis Recent Fever Within 48 Hours No Sepsis New/Unexplained Change in Mental Status No Sepsis Action Taken by Nursing No Action Required 09/09/20 13:00 09/09/20 13:30 09/09/20 14:00 Temperature Temperature Source Pulse Rate 88 85 83 Pulse Rate from SpO2 Sensor 86 85 82 Pulse Rhythm Pulse Strength Respiratory Rate 17 13 19 Respiratory Effort / Characteristics Respiratory Depth Respiratory Pattern Blood Pressure 178/104 H 157/78 H Blood Pressure Mean 128 104 Blood Pressure Position Pulse Oximetry 99 100 100 Oxygen Delivery Method Sepsis Recent Fever Within 48 Hours Sepsis New/Unexplained Change in Mental Status Sepsis Action Taken by Nursing Laboratory Data Result diagrams: 09/09/20 11:45 09/09/20 11:45 Lab Results 09/09/20 09/09/20 09/09/20 Range/Units 11:45 11:45 11:45 WBC 3.87 L (4.8-10.8) K/uL RBC 4.11 L (4.2-5.4) M/uL Hgb 12.3 (12.0-16.0) g/dL Hct 37.7 (37-47) % MCV 91.7 (80-100) fL MCH 29.9 (25-34) pg MCHC 32.6 (32-36) g/dL RDW Std Deviation 46.4 H (36.4-46.3) fL RDW Coeff of Lebron 14.1 (11.5-14.5) % Plt Count 286 (130-400) K/uL MPV 10.0 (7.4-10.4) fL Immature Gran % (Auto) 0.0 % Neut % (Auto) 33.8 % Lymph % (Auto) 52.5 % Park % (Auto) 9.3 % Eos % (Auto) 3.9 % Baso % (Auto) 0.5 % Neut # (Auto) 1.31 L (1.4-6.5) K/uL Lymph # (Auto) 2.03 (1.2-3.4) K/uL Park # (Auto) 0.36 (0.11-0.59) K/uL Eos # (Auto) 0.15 (0-0.5) K/uL Baso # (Auto) 0.02 (0-0.2) K/uL Immature Gran # (Auto) 0.00 (0.00-0.02) K/uL PT 10.9 (9.0-12.0) Seconds INR 1.1 (0.9-1.1) Sodium 134 L (136-145) mmol/L Potassium 6.0 H (3.5-5.1) mmol/L Chloride 97 L (98-107) mmol/L Carbon Dioxide 33 H (21-32) mmol/L Anion Gap 3.0 (3-11) BUN 34 H (7-18) mg/dl Creatinine 5.50 H* (0.6-1.2) mg/dl Est Cr Clr Drug Dosing Not Reportable Est GFR ( Amer) 9.6 Est GFR (Non-Af Amer) 8.2 BUN/Creatinine Ratio 6.1 L (10-20) Glucose 117 H (70-99) mg/dl POC Glucose (70-99) mg/dl Calcium 9.2 (8.5-10.1) mg/dl Total Bilirubin 0.5 (0.2-1) mg/dl AST 15 (15-37) U/L ALT 20 (12-78) U/L Alkaline Phosphatase 74 (45-117) U/L Troponin I < 0.015 (0-0.045) ng/ml Total Protein 7.8 (6.4-8.2) gm/dl Albumin 3.9 (3.4-5.0) gm/dl Globulin 3.9 (2.5-4.0) gm/dl Albumin/Globulin Ratio 1.0 (0.9-2) Lipase 64 L (73-393) U/L Urine Color Urine Appearance (Clear) Urine pH (4.5-7.5) Ur Specific Morehead (1.000-1.030) Urine Protein (Negative) Urine Glucose (UA) (Negative) Urine Ketones (Negative) Urine Blood (Negative) Urine Nitrite (Negative) Urine Bilirubin (Negative) Urine Urobilinogen (Negative) Ur Leukocyte Esterase (Negative) Urine WBC (Auto) (0-5) /hpf Urine RBC (Auto) (0-4) /hpf U Hyaline Cast (Auto) (0-5) /lpf U Epithel Cells (Auto) (0-5) /lpf Urine Bacteria (Auto) (Negative) POC Ur Test (NEG) COVID-19 Eval Order SARS-CoV-2 (PCR) (Negative) Hep Bs Antigen (Neg) Hep Bs Antibody Hep Bs Antibody, Quant (>or=10mIU/mL Immune) mIU/mL Influenza Type A (PCR) (Neg) Influenza Type B (PCR) (Neg) RSV (RT-PCR) (Neg) 09/09/20 09/09/20 09/09/20 Range/Units 11:45 14:09 14:09 WBC (4.8-10.8) K/uL RBC (4.2-5.4) M/uL Hgb (12.0-16.0) g/dL Hct (37-47) % MCV (80-100) fL MCH (25-34) pg MCHC (32-36) g/dL RDW Std Deviation (36.4-46.3) fL RDW Coeff of Lebron (11.5-14.5) % Plt Count (130-400) K/uL MPV (7.4-10.4) fL Immature Gran % (Auto) % Neut % (Auto) % Lymph % (Auto) % Park % (Auto) % Eos % (Auto) % Baso % (Auto) % Neut # (Auto) (1.4-6.5) K/uL Lymph # (Auto) (1.2-3.4) K/uL Park # (Auto) (0.11-0.59) K/uL Eos # (Auto) (0-0.5) K/uL Baso # (Auto) (0-0.2) K/uL Immature Gran # (Auto) (0.00-0.02) K/uL PT (9.0-12.0) Seconds INR (0.9-1.1) Sodium (136-145) mmol/L Potassium (3.5-5.1) mmol/L Chloride (98-107) mmol/L Carbon Dioxide (21-32) mmol/L Anion Gap (3-11) BUN (7-18) mg/dl Creatinine (0.6-1.2) mg/dl Est Cr Clr Drug Dosing Est GFR ( Amer) Est GFR (Non-Af Amer) BUN/Creatinine Ratio (10-20) Glucose (70-99) mg/dl POC Glucose (70-99) mg/dl Calcium (8.5-10.1) mg/dl Total Bilirubin (0.2-1) mg/dl AST (15-37) U/L ALT (12-78) U/L Alkaline Phosphatase (45-117) U/L Troponin I (0-0.045) ng/ml Total Protein (6.4-8.2) gm/dl Albumin (3.4-5.0) gm/dl Globulin (2.5-4.0) gm/dl Albumin/Globulin Ratio (0.9-2) Lipase (73-393) U/L Urine Color Urine Appearance (Clear) Urine pH (4.5-7.5) Ur Specific Morehead (1.000-1.030) Urine Protein (Negative) Urine Glucose (UA) (Negative) Urine Ketones (Negative) Urine Blood (Negative) Urine Nitrite (Negative) Urine Bilirubin (Negative) Urine Urobilinogen (Negative) Ur Leukocyte Esterase (Negative) Urine WBC (Auto) (0-5) /hpf Urine RBC (Auto) (0-4) /hpf U Hyaline Cast (Auto) (0-5) /lpf U Epithel Cells (Auto) (0-5) /lpf Urine Bacteria (Auto) (Negative) POC Ur Test (NEG) COVID-19 Eval Order CovFluRsv at [facility] SARS-CoV-2 (PCR) NEGATIVE (Negative) Hep Bs Antigen Neg (Neg) Hep Bs Antibody Immune Hep Bs Antibody, Quant > 1000.00 (>or=10mIU/mL Immune) mIU/mL Influenza Type A (PCR) Negative (Neg) Influenza Type B (PCR) Negative (Neg) RSV (RT-PCR) Negative (Neg) 09/09/20 09/09/20 09/09/20 Range/Units 14:22 Unknown Unknown WBC (4.8-10.8) K/uL RBC (4.2-5.4) M/uL Hgb (12.0-16.0) g/dL Hct (37-47) % MCV (80-100) fL MCH (25-34) pg MCHC (32-36) g/dL RDW Std Deviation (36.4-46.3) fL RDW Coeff of Lebron (11.5-14.5) % Plt Count (130-400) K/uL MPV (7.4-10.4) fL Immature Gran % (Auto) % Neut % (Auto) % Lymph % (Auto) % Park % (Auto) % Eos % (Auto) % Baso % (Auto) % Neut # (Auto) (1.4-6.5) K/uL Lymph # (Auto) (1.2-3.4) K/uL Park # (Auto) (0.11-0.59) K/uL Eos # (Auto) (0-0.5) K/uL Baso # (Auto) (0-0.2) K/uL Immature Gran # (Auto) (0.00-0.02) K/uL PT (9.0-12.0) Seconds INR (0.9-1.1) Sodium (136-145) mmol/L Potassium (3.5-5.1) mmol/L Chloride (98-107) mmol/L Carbon Dioxide (21-32) mmol/L Anion Gap (3-11) BUN (7-18) mg/dl Creatinine (0.6-1.2) mg/dl Est Cr Clr Drug Dosing Est GFR ( Amer) Est GFR (Non-Af Amer) BUN/Creatinine Ratio (10-20) Glucose (70-99) mg/dl POC Glucose 85 (70-99) mg/dl Calcium (8.5-10.1) mg/dl Total Bilirubin (0.2-1) mg/dl AST (15-37) U/L ALT (12-78) U/L Alkaline Phosphatase (45-117) U/L Troponin I (0-0.045) ng/ml Total Protein (6.4-8.2) gm/dl Albumin (3.4-5.0) gm/dl Globulin (2.5-4.0) gm/dl Albumin/Globulin Ratio (0.9-2) Lipase (73-393) U/L Urine Color Yellow Urine Appearance Clear (Clear) Urine pH >= 9.0 H (4.5-7.5) Ur Specific Morehead 1.014 (1.000-1.030) Urine Protein 2+ H (Negative) Urine Glucose (UA) Negative (Negative) Urine Ketones Negative (Negative) Urine Blood Negative (Negative) Urine Nitrite Negative (Negative) Urine Bilirubin Negative (Negative) Urine Urobilinogen Negative (Negative) Ur Leukocyte Esterase Negative (Negative) Urine WBC (Auto) 1-5 (0-5) /hpf Urine RBC (Auto) 0-4 (0-4) /hpf U Hyaline Cast (Auto) 1-5 (0-5) /lpf U Epithel Cells (Auto) >30 H (0-5) /lpf Urine Bacteria (Auto) 1+ H (Negative) POC Ur Test NEG (NEG) COVID-19 Eval Order SARS-CoV-2 (PCR) (Negative) Hep Bs Antigen (Neg) Hep Bs Antibody Hep Bs Antibody, Quant (>or=10mIU/mL Immune) mIU/mL Influenza Type A (PCR) (Neg) Influenza Type B (PCR) (Neg) RSV (RT-PCR) (Neg) Administered Medications Discontinued Medications Sodium Chloride (Nss 1000ml) 2,000 mls @ 999 mls/hr IV .Q2H1M ONE Stop: 09/09/20 13:47 Last Infusion: 09/09/20 13:48 Dose: 0 mls/hr Documented by: [id number] Admin: 09/09/20 12:20 Dose: 999 mls/hr Documented by: [id number] Ketorolac Tromethamine (Ketorolac Tromethamine 15 Mg/Ml Vial) 10 mg IV NOW ONE Stop: 09/09/20 11:49 Last Admin: 09/09/20 12:20 Dose: 10 mg Documented by: [id number] Ondansetron HCl (Ondansetron Inj 2 Mg/Ml 2 Ml Vial) 4 mg IV NOW STA Stop: 09/09/20 11:49 Last Admin: 09/09/20 12:21 Dose: 4 mg Documented by: [id number] Imaging Data Radiologist's Impression: Abdomen/Pelvis CT 09/09/20 12:39 CT SCAN OF THE ABDOMEN AND PELVIS WITHOUT IV CONTRAST CLINICAL HISTORY: Right flank pain. COMPARISON STUDY: Abdominal CT dated 08/29/2020. TECHNIQUE: CT scan of the abdomen and pelvis is performed from the lung bases to the proximal femora. Images are reviewed in the axial, sagittal, and coronal planes. IV contrast was not administered for this examination. A dose lowering technique was utilized adhering to the principles of ALARA. CT DOSE: 281.26 mGy.cm FINDINGS: Lung bases: The heart is normal in size noting a small pericardial effusion. The mitral annulus is densely calcified. A small hiatal hernia is noted. The lung bases are clear noting bibasilar scarring/atelectasis. Liver: The unenhanced liver is normal in size, contour, and attenuation. There is mild intrahepatic biliary ductal dilatation. Gallbladder: Surgically absent noting clips in the gallbladder fossa. Spleen: Normal in size and attenuation. Pancreas: Unremarkable. Adrenal glands: Unremarkable. Kidneys: The unenhanced kidneys are normal in size and without hydronephrosis. There are numerous renovascular calcifications. No definite renal calculi are identified. There is no evidence of contour deforming renal mass lesion. Abdominal vasculature: The abdominal aorta is normal in course and caliber noting mild to moderate atherosclerotic calcification. Bowel: There is no bowel obstruction. The appendix is not visualized. Peritoneum: There is no intraperitoneal free air or abdominal ascites. There is a small fat-containing umbilical hernia. Lymphadenopathy: None. Pelvic viscera: The bladder is distended but otherwise normal in appearance. The uterus and adnexa are normal as visualized noting an intrauterine device in place. Skeletal structures: No lytic or blastic lesions are seen. Posterior disc osteophyte complexes are seen at L4-L5 and L5-S1. IMPRESSION: There are no acute infectious or inflammatory findings in the abdomen or pelvis. ACT 112: Negative or not required by law. Electronically signed by: Davy Willson M.D. 09/09/2020 1:52 PM Discharge Plan Visit Data Chief Complaint: Flank Pain Stated Complaint: PAIN IN KIDNEY/BURING UPON URINATION ED Provider: Juan Manuel Rodriguez Discharge Problem: Vomiting, DM type 1 (diabetes mellitus, type 1), CKD (chronic kidney disease), Acute hyperkalemia, Missed dialysis Forms Stand Alone Forms: [employer] Prescriptions Prescriptions: No Action aripiprazole [Abilify] 5 mg tablet 5 mg PO HS RF: 0 atorvastatin [Lipitor] 40 mg tablet 40 mg PO HS RF: 0 trazodone 150 mg tablet 75 mg PO HS PRN (Reason: Sleep) RF: 0 temazepam [Restoril] 15 mg capsule 15 mg PO HS RF: 0 hydroxyzine HCl 25 mg tablet 25 mg PO TID PRN (Reason: Anxiety) RF: 0 trimethobenzamide 300 mg Capsule 300 mg PO TID PRN (Reason: NAUSEA/VOMITING) RF: 0 levetiracetam [Keppra] 500 mg tablet 500 mg PO BID RF: 0 melatonin 3 mg Tablet 3 mg PO HS RF: 0 prochlorperazine maleate 5 mg Tablet 5 mg PO QID PRN (Reason: Nausea) RF: 0 lamotrigine [Lamictal] 25 mg tablet 50 mg PO HS RF: 0 ergocalciferol (vitamin D2) [Vitamin D2] 1,250 mcg (50,000 unit) Capsule 1,250 mcg PO FR RF: 0 sertraline [Zoloft] 50 mg tablet 75 mg PO HS RF: 0 insulin lispro [Admelog SoloStar U-100 Insulin] 100 unit/mL Insulin Pen 7 unit SUBCUT TIDM RF: 0 sevelamer carbonate 800 mg Tablet 800 mg PO TIDM RF: 0 benztropine 0.5 mg tablet 0.5 mg PO HS RF: 0 lactulose 10 gram/15 mL Solution 10 g PO BID PRN (Reason: Constipation) Qty: 200 RF: 0 Lantus Solostar U-100 Insulin 100 unit/mL (3 mL) insulin pen 12 unit subcut HS Qty: 15 RF: 0 polyethylene glycol 3350 [Miralax] 17 gram powder in packet 17 g PO QAM RF: 0 calcium acetate(phosphat bind) 667 mg capsule 667 mg PO TIDM RF: 0 lubiprostone 24 mcg Capsule 24 mcg PO BIDM RF: 0 buspirone 10 mg tablet 10 mg PO TID RF: 0 metoclopramide HCl 5 mg tablet 5 mg PO TID PRN (Reason: Nausea) RF: 0 pantoprazole 40 mg Tablet,Delayed Release (Dr/Ec) 40 mg PO QAM Qty: 30 RF: 0 Linzess 145 mcg Capsule 145 mcg PO QAM Qty: 30 RF: 1 sucralfate 100 mg/mL Suspension 10 ml PO BID 30 Days Qty: 600 RF: 1 Discharge Problem: Vomiting Qualifiers: Vomiting type: unspecified Vomiting Intractability: unspecified Nausea presence: unspecified Qualified Code(s): R11.10 - Vomiting, unspecified DM type 1 (diabetes mellitus, type 1) Qualifiers: Diabetes mellitus complication status: with other specified complication Qualified Code(s): E10.69 - Type 1 diabetes mellitus with other specified complication CKD (chronic kidney disease) Qualifiers: Chronic kidney disease stage: unspecified stage Qualified Code(s): N18.9 - Chronic kidney disease, unspecified
[2020-09-09 11:58] LABS: Hematocrit (blood only) 37.7 % (37-47); Hemoglobin 12.3 g/dL (12.0-16.0); Mean Corpuscular Hemoglobin 29.9 pg (25-34); Mean Corpuscular Hgb Conc 32.6 g/dL (32-36); Mean Corpuscular Volume 91.7 fL (80-100); Platelet Count 286 K/uL (130-400); RDW Coefficient of Variation 14.1 % (11.5-14.5); RDW Standard Deviation 46.4 fL (36.4-46.3); Red Blood Count 4.11 M/uL (4.2-5.4); White Blood Count 3.87 K/uL (4.8-10.8)
[2020-09-09 12:10] LABS: INR 1.1 (0.9-1.1); Prothrombin Time 10.9 Seconds (9.0-12.0)
[2020-09-09 12:30] LABS: Alanine Aminotransferase 20 U/L (12-78); Albumin Level 3.9 gm/dl (3.4-5.0); Alkaline Phosphatase 74 U/L (45-117); Aspartate Aminotransferase 15 U/L (15-37); BUN Creatinine Ratio 6.1 (10-20); Basophils # (auto) 0.02 K/uL (0-0.2); Basophils % (auto) 0.5 %; Bilirubin,Total 0.5 mg/dl (0.2-1); Blood Urea Nitrogen 34 mg/dl (7-18); Calcium 9.2 mg/dl (8.5-10.1); Carbon Dioxide 33 mmol/L (21-32); Chloride 97 mmol/L (98-107); Eosinophils # (auto) 0.15 K/uL (0-0.5); Eosinophils % (auto) 3.9 %; Est GFR (African American) 9.6; Est GFR (Non-African American) 8.2; Globulin 3.9 gm/dl (2.5-4.0); Glucose 117 mg/dl (70-99); Lipase 64 U/L (73-393); Lymphocytes # (auto) 2.03 K/uL (1.2-3.4); Lymphocytes % (auto) 52.5 %; Monocytes # (auto) 0.36 K/uL (0.11-0.59); Monocytes % (auto) 9.3 %; Neutrophils # (auto) 1.31 K/uL (1.4-6.5); Neutrophils % (auto) 33.8 %; Sodium 134 mmol/L (136-145); Total Protein 7.8 gm/dl (6.4-8.2); Troponin I < 0.015 ng/ml (0-0.045)
[2020-09-09 12:57] LABS: Appearance Urine Clear (Clear); Bacteria Urine Automated 1+ (Negative); Bilirubin Urine Negative (Negative); Blood Urine Negative (Negative); Color Urine Yellow; Epithelial Cell Urine Auto >30 /lpf (0-5); Glucose Urine UA Negative (Negative); Ketones Urine Negative (Negative); Leukocyte Esterase Urine Negative (Negative); Nitrite Urine Negative (Negative); RBC Urine Automated 0-4 /hpf (0-4); Specific Gravity Urine 1.014 (1.000-1.030); Urobilinogen Urine Negative (Negative); pH Urine >= 9.0 (4.5-7.5)
[2020-09-09 13:20] LABS: Protein Urine 2+ (Negative)
--- NOTE | 2020-09-09 13:53 | CT Scan Report ---
CT SCAN OF THE ABDOMEN AND PELVIS WITHOUT IV CONTRAST CLINICAL HISTORY: Right flank pain. COMPARISON STUDY: Abdominal CT dated 08/29/2020. TECHNIQUE: CT scan of the abdomen and pelvis is performed from the lung bases to the proximal femora. Images are reviewed in the axial, sagittal, and coronal planes. IV contrast was not administered for this examination. A dose lowering technique was utilized adhering to the principles of ALARA. CT DOSE: 281.26 mGy.cm FINDINGS: Lung bases: The heart is normal in size noting a small pericardial effusion. The mitral annulus is de nsely calcified. A small hiatal hernia is noted. The lung bases are clear noting bibasilar scarring/a telectasis. Liver: The unenhanced liver is normal in size, contour, and attenuation. There is mild intrahepatic b iliary ductal dilatation. Gallbladder: Surgically absent noting clips in the gallbladder fossa. Spleen: Normal in size and attenuation. Pancreas: Unremarkable. Adrenal glands: Unremarkable. Kidneys: The unenhanced kidneys are normal in size and without hydronephrosis. There are numerous phyllis ovascular calcifications. No definite renal calculi are identified. There is no evidence of contour d eforming renal mass lesion. Abdominal vasculature: The abdominal aorta is normal in course and caliber noting mild to moderate at herosclerotic calcification. Bowel: There is no bowel obstruction. The appendix is not visualized. Peritoneum: There is no intraperitoneal free air or abdominal ascites. There is a small fat-containin g umbilical hernia. Lymphadenopathy: None. Pelvic viscera: The bladder is distended but otherwise normal in appearance. The uterus and adnexa ar e normal as visualized noting an intrauterine device in place. Skeletal structures: No lytic or blastic lesions are seen. Posterior disc osteophyte complexes are se en at L4-L5 and L5-S1. IMPRESSION: There are no acute infectious or inflammatory findings in the abdomen or pelvis. ACT 112: Negative or not required by law. Electronically signed by: Davy Willson M.D. 09/09/2020 1:52 PM
[2020-09-09 15:23] LABS: Influenza A virus by PCR Negative (Neg); Influenza B virus by PCR Negative (Neg); RSV by PCR Negative (Neg); SARS CoV2 RNA(COVID-19) InHosp NEGATIVE (Negative)
[2020-09-09 15:24] LABS: Hepatitis B Surface Ab Quant > 1000.00 mIU/mL (>or=10mIU/mL Immune); Hepatitis B Surface Antibody Immune
[2020-09-09 15:35] LABS: Hepatitis B Surf Ag Rflx Conf Neg (Neg)
--- NOTE | 2020-09-09 15:44 | History & Physical Report ---
Date of Service September 09, 2020 Assessment & Plan (1) Nausea & vomiting: Abdominal pain H/O gastroparesis Pt is 50 y/o F with PMH ESRD on HD, chronic diastolic HF, CVA, CAD, COPD, GERD, gastroparesis, HTN, dyslipidemia, h/o GI bleed, seizure disorder, DM I, bipolar disorder presented to ER with c/o N/V x 6 episodes yesterday, one episode loose stools. Denies fevers In ER afebrile, vitals stable. No leukocytosis. CT ABD/PELVIS: unremarkable In ER given Zofran, Toradol, 2L NSS Monitor for additional diarrhea and consider stool studies if occurs Continue Reglan CBC, BMP in am (2) Dysuria: Possible UTI Reports dysuria. UA: 1+bacteria, negative nitrite, negative leuk esterase Urine culture pending Rocephin (3) Hyperkalemia: K: 6. Pt missed HD yesterday. No acute EKG changes HD now Repeat BMP tonight to recheck K (4) End-stage renal disease (ESRD): On HD on , Sat Missed dialysis 09/08/20 HD now Nephrology on board Continue renal meds (5) DM type 1 (diabetes mellitus, type 1): A1c: 8.1 in 07/2020 Continue basal bolus insulin (6) Seizure: H/O seizure disorder Continue Keppra (7) Constipation: Chronic constipation Continue linzess, miralax prn, lactulose prn (8) Bipolar disorder: Continue home meds DVT Prophylaxis -Heparin SQ Full Code as per discussion with pt Follows with Dr Anguiano for routine care Pt was seen and care coordinated with Dr Mohamud. See addendum History of Present Illness Chief Complaint: N/V Primary Care Provider: Mitchel Santo MD Pt is 50 y/o F with PMH ESRD on HD, chronic diastolic HF, CVA, CAD, COPD, GERD, gastroparesis, HTN, dyslipidemia, h/o GI bleed, seizure disorder, DM I, bipolar disorder presented to ER with c/o N/V. Pt states yesterday started with nausea, and 6 episodes of vomiting. Reports one episode of loose stools. Usually has chronic constipation and is on Linzess. C/O right lower abdominal pain described as stabbing type pain. Also c/o dysuria and dark color urine. Usually urinates once daily and did not urinate today. Reports decreased oral intake since yesterday. [place] chilled yesterday. C/O lightheaded. Denies ill contacts, recent travel, eating undercooked foods. states had 2 doses Covid 19 vaccine. Denies fever, diaphoresis, hematemesis, hematochezia, melena, mucous stools, [place], syncope, vision changes, neck pain, CP, SOB, orthopnea, palpitations, cough, sore throat, choking, otalgia, rhinorrhea, paresthesias, weakness, extremity wea kness, extremity edema, rashes, hematuria. Denies recent antibiotic use Allergies Allergy/AdvReac Type Severity Reaction Status Date / Time Fish Containing Products Allergy Mild Hives Verified 09/09/20 14:02 latex Allergy Mild hives Verified 09/09/20 14:02 shellfish derived Allergy Mild Hives Verified 09/09/20 14:02 Home Medications Medication Instructions Recorded Confirmed Type aripiprazole [Abilify] 5 mg PO HS 05/20/19 09/09/20 History levetiracetam [Keppra] 500 mg PO BID 06/20/19 09/09/20 History atorvastatin [Lipitor] 40 mg PO HS 08/01/19 09/09/20 History melatonin 3 mg PO HS 01/29/20 09/09/20 History hydroxyzine HCl 25 mg PO TID PRN 02/20/20 09/09/20 History temazepam [Restoril] 15 mg PO HS 02/20/20 09/09/20 History trazodone 75 mg PO HS PRN 02/20/20 09/09/20 History trimethobenzamide 300 mg PO TID PRN 03/21/20 09/09/20 History benztropine 0.5 mg PO HS 07/27/20 09/09/20 History ergocalciferol (vitamin D2) 1,250 mcg PO FR 07/27/20 09/09/20 History [Vitamin D2] insulin lispro [Admelog SoloStar 7 unit SUBCUT TIDM 07/27/20 09/09/20 History U-100 Insulin] lamotrigine [Lamictal] 50 mg PO HS 07/27/20 09/09/20 History prochlorperazine maleate 5 mg PO QID PRN 07/27/20 09/09/20 History sertraline [Zoloft] 75 mg PO HS 07/27/20 09/09/20 History sevelamer carbonate 800 mg PO TIDM 07/27/20 09/09/20 History Lant Solostar U-100 Insulin 12 unit SUBCUT HS #15 ml 07/31/20 09/09/20 Rx lactulose 10 g PO BID PRN #200 ml 07/31/20 09/09/20 Rx buspirone 10 mg PO TID 08/16/20 09/09/20 History metoclopramide HCl 5 mg PO TID PRN 08/16/20 09/09/20 History linaclotide [Linzess] 145 mcg PO QAM #30 cap 08/21/20 09/09/20 Rx pantoprazole 40 mg PO QAM #30 tab 08/21/20 09/09/20 Rx sucralfate 10 ml PO BID 30 Days #600 ml 08/21/20 09/09/20 Rx calcium acetate(phosphat bind) 667 mg PO TIDM 09/09/20 09/09/20 History lubiprostone 24 mcg PO BIDM 09/09/20 09/09/20 History polyethylene glycol 3350 [Miralax] 17 g PO QAM 09/09/20 09/09/20 History Past Med/Surg History Medical History (Updated 09/09/20 @ 15:42 by Keren Ding PA-C) Anemia due to chronic kidney disease Arteriovenous fistula for hemodialysis in place, primary Bipolar disorder CKD (chronic kidney disease) stage V requiring chronic dialysis Coronary artery disease "2015 - cardiac catheterization showing nonobstructive coronary disease Stress test 06/2017 - possible small area of ischemia in the anterior wall" CVA (cerebral vascular accident) 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 history of CVA in 2018 Residual R sided weakness Depression Diabetic gastroparesis Diastolic heart failure DM type 1 (diabetes mellitus, type 1) ESRD (end stage renal disease) on dialysis GERD (gastroesophageal reflux disease) History of GI bleed Hyperlipidemia Hypertension Seizure Surgical History Hx of appendectomy Hx of cholecystectomy Hx of tubal ligation Family History (Updated 09/09/20 @ 15:38 by Keren Ding PA-C) Mother Coronary heart disease Hypertension Father Coronary heart disease Social History Smoking Status: Former smoker Tobacco Type: Cigarettes Second Hand Exposure: No; Hx Alcohol Use: No Hx Substance Use: No Preferred Language: Yi Communication Ability: Effective Core Shaper Sides Required: No Beliefs That Will Affect Care: None marital status: Single Current Living Situation: Family current occupational status: unemployed Feels Safe at Home: Yes Assistive Devices: Walker Review of Systems Review of Systems: All systems reviewed & are unremarkable except as noted in HPI & below Physical Exam Physical Exam: General: no distress, WDWN Head: normocephalic, atraumatic Eyes: conjunctiva non-injected, anicteric ENT: normal inspection external ears, nose, mucous membranes moist Neck: supple, trachea midline Lungs: clear, no respiratory distress, no wheezing/rhonchi/rales CV: RRR, no murmur, no pretibial edema Abd: normal BS, soft, +tenderness to palpation entire abdomen Ext: no cyanosis, RUE with fistula Neuro: A&O x 3, no focal deficits noted, normal affect Skin: warm, dry Results & Data Results & Data ([facility]) Vital Signs (Past 12 Hours) Vital Signs Temp Pulse Resp BP Pulse Ox 09/09/20 14:00 83 19 157/78 H 100 09/09/20 13:30 85 13 100 09/09/20 13:00 88 17 178/104 H 99 09/09/20 12:31 96 09/09/20 12:30 90 18 193/103 H 100 09/09/20 11:06 36.7 C 89 18 164/83 H 97 Laboratory Results Short CBC 09/09/20 Range/Units 11:45 WBC 3.87 L (4.8-10.8) K/uL Hgb 12.3 (12.0-16.0) g/dL Hct 37.7 (37-47) % Plt Count 286 (130-400) K/uL BMP 09/09/20 11:45 Sodium 134 L Potassium 6.0 H Chloride 97 L Carbon Dioxide 33 H BUN 34 H Creatinine 5.50 H* Glucose 117 H Calcium 9.2 Cardiac Enzymes 09/09/20 Range/Units 11:45 Troponin I < 0.015 (0-0.045) ng/ml Liver Function 09/09/20 Range/Units 11:45 Total Bilirubin 0.5 (0.2-1) mg/dl AST 15 (15-37) U/L ALT 20 (12-78) U/L Alkaline Phosphatase 74 (45-117) U/L Albumin 3.9 (3.4-5.0) gm/dl Urine 09/09/20 Range/Units Unknown Urine Color Yellow Urine Appearance Clear (Clear) Urine pH >= 9.0 H (4.5-7.5) Ur Specific [place] 1.014 (1.000-1.030) Urine Protein 2+ H (Negative) Urine Glucose (UA) Negative (Negative) Diagnostic Findings CT ABD/PELVIS: IMPRESSION: There are no acute infectious or inflammatory findings in the abdomen or pelvis. Code Status & VTE Plan VTE Prophylaxis Plan VTE Prophylaxis will be ordered: Yes Supervising Physician Co-Signing Physician Notes Patient is a 50-year-old female with history of end-stage renal disease on hemodialysis, CVA, bipolar disorder, seizure disorder, gastroparesis and other medical problems presents with history of nausea, vomiting, one episode of loose bowel movement associated with right lower quadrant abdominal pain since 1 day duration. Patient reports associated chills but no fever, sick contact, recent travel. She admits to having dysuria associated with dark-colored urine as well. She missed her scheduled hemodialysis yesterday. Please review HPI for complete details of presentation. On exam patient is moderately built and nourished, no apparent distress, normocephalic atraumatic, lungs are clear to auscultation, normal breath sounds, S1-S2, no murmur, no pedal edema, abdomen soft, generalized tenderness, no rigidity or guarding, alert, awake, oriented, grossly no focal neurological deficits. Patient is admitted for management of hyperkalemia, noncompliance with dialysis. Patient is going to be undergoing urgent dialysis today. We will repeat the blood work after the dialysis and monitor his electrolytes. Consulted nephrology. Will repeat EKG in the morning. We will start empirically on Rocephin for possible UTI. CT abdomen showed no acute abnormality. Will get stool studies for ruling out infection if recurrence of diarrhea. GI symptoms likely secondary to gastroparesis. I personally reviewed the record. Patient is interviewed and examined at bedside. Patient's care is coordinated with Keren Ding PA-C. Please refer to the documentation above for details of patient's presentation and for discussion of other issues. (1) Nausea & vomiting Vomiting Intractability: non-intractable Vomiting type: unspecified Qualified Code(s): R11.2 - Nausea with vomiting, unspecified (2) Constipation Constipation type: unspecified constipation type Qualified Code(s): K59.00 - Constipation, unspecified
--- NOTE | 2020-09-09 16:21 | Electrocardiogram Report ---
Test Reason : Blood Pressure : / mmHG Vent. Rate : 082 BPM Atrial Rate : 082 BPM P-R Int : 138 ms QRS Dur : 072 ms QT Int : 416 ms P-R-T Axes : -29 012 034 degrees QTc Int : 486 ms Poor data quality, interpretation may be adversely affected Normal sinus rhythm Septal infarct (cited on or before 09-SEP-2020) Abnormal ECG When compared with ECG of 29-AUG-2020 21:13, Premature ventricular complexes are no longer Present Confirmed by Denton Saba ([id number]) on 09/09/2020 4:20:40 PM Referred By: REFERRED SELF Confirmed By:Denton Saba
[2020-09-09] MEDS ORDERED: CARBOHYDRATES FOR HYPOGLYCEMIA PO PRN (17:19)
[2020-09-09] MEDS ORDERED: ACETAMINOPHEN 325 MG TAB PO PRN (17:19)
[2020-09-09] MEDS ORDERED: hydrOXYzine HCl 25 MG TAB PO PRN (17:19)
[2020-09-09] MEDS ORDERED: METOCLOPRAMIDE HCL 5 MG TABLET PO PRN ×3 (17:19)
[2020-09-09] MEDS ORDERED: ONDANSETRON INJ 2 MG/ML 2 ML VIAL IV PRN (17:19)
[2020-09-09] MEDS ORDERED: traZODone HCL 50 MG TAB PO PRN (17:19)
[2020-09-09] MEDS ORDERED: GLUCAGON FOR INJ 1 MG VIAL SQ PRN (17:19)
[2020-09-09] MEDS ORDERED: GLUCOSE 10 TABS/TUBE PO PRN (17:19)
[2020-09-09] MEDS ORDERED: DEXTROSE 50% 50 ML SYRINGE IV PRN (17:19)
[2020-09-09] MEDS ORDERED: GLUCOSE 40% GEL 15 GM TUBE PO PRN (17:19)
[2020-09-09] MEDS ORDERED: POLYETHYLENE (MIRALAX) 17 GM PACK PO PRN (17:19)
[2020-09-09] MEDS ORDERED: LACTULOSE SYRUP 10 GM/15 ML BTL 960 ML PO PRN (17:33)
[2020-09-09] MEDS ORDERED: ERGOCALCIFEROL 50,000 UNITS 1250 MCG CAP PO SCH (18:00)
[2020-09-09] MEDS: INSULIN ASPART 100 UNITS/ML 3 ML PEN SC SCH ×2 (18:30→20:15)
[2020-09-09] MEDS: cefTRIAXone SODIUM 1,000 MG in DEXTROSE 5% 50 ML IV SCH (18:30)
[2020-09-09] MEDS ORDERED: MoRPHine SULFATE 2 MG/ML CARP IV PRN (18:45)
[2020-09-09] MEDS: CALCIUM ACETATE 667 MG CAP/TAB PO SCH (18:53)
[2020-09-09] MEDS: SEVELAMER HCL 800 MG TABLET PO SCH (18:53)
[2020-09-09] MEDS: oxyCODONE/ACETAMINOPHEN 5mg/325mg TAB PO PRN (18:56)
[2020-09-09 19:42] LABS: BUN Creatinine Ratio 4.5 (10-20); Calcium 8.3 mg/dl (8.5-10.1); Creatinine Clr Calc Pharmacy 15.9 ml/min; Est GFR (African American) 17.8; Est GFR (Non-African American) 15.4; Potassium 4.3 mmol/L (3.5-5.1)
[2020-09-09] MEDS: levETIRAcetam 500 MG TAB PO SCH (20:11)
[2020-09-09] MEDS: lamoTRIgine 25 MG TAB PO SCH (20:11)
[2020-09-09] MEDS: MELATONIN 3 MG TAB PO SCH (20:12)
[2020-09-09] MEDS: HEPARIN SOD 5,000 UNIT/0.5 ML VIAL SQ SCH (20:12)
[2020-09-09] MEDS: SERTRALINE HCL 50 MG TABLET PO SCH (20:12)
[2020-09-09] MEDS: ATORVASTATIN 40 MG TAB PO SCH (20:13)
[2020-09-09] MEDS: busPIRone 5 MG TAB PO SCH (20:13)
[2020-09-09] MEDS: BENZTROPINE MESYLATE 0.5 MG TAB PO SCH (20:13)
[2020-09-09] MEDS: ARIPiprazole 5 MG TAB PO SCH (20:13)
[2020-09-09] MEDS: INSULIN GLARGINE SOLOSTAR 100 UNITS/ML 3 ML PEN SQ SCH (20:14)
[2020-09-09] MEDS: TEMAZEPAM 15 MG CAPSULE PO SCH (20:21)
[2020-09-09] MEDS: SUCRALFATE 1 GM/10 ML UDC PO SCH (20:21)
[2020-09-10] MEDS: [UNRECOGNIZED DRUG - REMARK] SCH ×4 (00:02→22:17)
[2020-09-10 07:01] LABS: Hematocrit (blood only) 36.1 % (37-47); Hemoglobin 11.9 g/dL (12.0-16.0); Mean Corpuscular Hemoglobin 30.4 pg (25-34); Mean Corpuscular Volume 92.1 fL (80-100); Mean Platelet Volume 9.8 fL (7.4-10.4); Platelet Count 266 K/uL (130-400); RDW Coefficient of Variation 14.1 % (11.5-14.5); RDW Standard Deviation 46.8 fL (36.4-46.3); Red Blood Count 3.92 M/uL (4.2-5.4); White Blood Count 3.49 K/uL (4.8-10.8)
--- NOTE | 2020-09-10 07:38 | Hospitalist Progress Note ---
Date of Service September 10, 2020 Assessment & Plan (1) Nausea & vomiting: Abdominal pain H/O gastroparesis Pt is 50 y/o F with PMH ESRD on HD, chronic diastolic HF, CVA, CAD, COPD, GERD, gastroparesis, HTN, dyslipidemia, h/o GI bleed, seizure disorder, DM I, bipolar disorder presented to ER with c/o N/V x 6 episodes yesterday, one episode loose stools. Denies fevers In ER afebrile, vitals stable. No leukocytosis. CT ABD/PELVIS: unremarkable In ER given Zofran, Toradol, 2L NSS Monitor for additional diarrhea, stool studies ordered Continue Reglan CBC, BMP in am (2) Dysuria: Possible UTI Reports dysuria. UA: 1+bacteria, negative nitrite, negative leuk esterase Urine culture pending Rocephin (3) Hyperkalemia: K: 6. Pt missed HD yesterday. No acute EKG changes HD now Repeat BMP tonight to recheck K (4) End-stage renal disease (ESRD): On HD on , Sat Missed dialysis 09/08/20 HD now Nephrology on board, underwent emergency HD on admission yesterday, plan for further dialysis today Continue renal meds (5) DM type 1 (diabetes mellitus, type 1): A1c: 8.1 in 07/2020 Continue basal bolus insulin (6) Seizure: H/O seizure disorder Continue Keppra (7) Constipation: Chronic constipation Continue linzess, miralax prn, lactulose prn (8) Bipolar disorder: Continue home meds DVT Prophylaxis -Heparin SQ Full Code as per discussion with pt Follows with Dr Anguiano for routine care Admission and Anticipated Discharge Date Admission Date: September 09, 2020 Subjective Patient seen in follow-up of hyperkalemia, abdominal pain Currently laying in bed, in no acute distress, underwent emergent dialysis on admission yesterday Plan for further dialysis today Currently reports discomfort at right lower quadrant, says she has "kidney pain" No fevers chills Reports previously had vomiting, no emesis since admission Reports diarrhea, however she says she only had 2 bowel movements yesterday and none today Stool studies not obtained yet due to lack of sample Review of Systems Review of Systems: All systems reviewed & are unremarkable except as noted in HPI & below Constitutional: no fever and no chills Respiratory: no cough and no dyspnea Cardiovascular: no chest pain and no palpitations Gastrointestinal: + abdominal pain (R lower quadrant discomfort); no vomiting Physical Exam Physical Exam: General: no distress, WDWN Head: normocephalic, atraumatic Eyes: conjunctiva non-injected, anicteric ENT: normal inspection external ears, nose, mucous membranes moist Neck: supple, trachea midline Lungs: clear, no respiratory distress, no wheezing/rhonchi/rales CV: RRR, no murmur, no pretibial edema Abd: normal BS, soft, +tenderness to palpation entire abdomen Ext: no cyanosis, RUE with fistula Neuro: A&O x 3, no focal deficits noted, normal affect Skin: warm, dry Results & Data Results & Data ([facility]) Vital Signs (Past 12 Hours) Vital Signs Temp Pulse Pulse Resp BP Pulse Ox 09/10/20 07:07 36.8 C 84 16 159/80 H 100 09/10/20 04:26 36.7 C 79 19 133/66 96 09/10/20 02:23 79 09/09/20 23:59 36.6 C 75 16 138/73 96 Laboratory Results 09/10/20 09/10/20 09/09/20 Range/Units 06:14 06:14 Unknown WBC 3.49 L (4.8-10.8) K/uL RBC 3.92 L (4.2-5.4) M/uL Hgb 11.9 L (12.0-16.0) g/dL Hct 36.1 L (37-47) % MCV 92.1 (80-100) fL MCH 30.4 (25-34) pg MCHC 33.0 (32-36) g/dL RDW Std Deviation 46.8 H (36.4-46.3) fL RDW Coeff of Lebron 14.1 (11.5-14.5) % Plt Count 266 (130-400) K/uL MPV 9.8 (7.4-10.4) fL Immature Gran % (Auto) % Neut % (Auto) % Lymph % (Auto) % [place] % (Auto) % Eos % (Auto) % Baso % (Auto) % Neut # (Auto) (1.4-6.5) K/uL Lymph # (Auto) (1.2-3.4) K/uL [place] # (Auto) (0.11-0.59) K/uL Eos # (Auto) (0-0.5) K/uL Baso # (Auto) (0-0.2) K/uL Immature Gran # (Auto) (0.00-0.02) K/uL PT (9.0-12.0) Seconds INR (0.9-1.1) Sodium Pending (136-145) mmol/L Potassium Pending (3.5-5.1) mmol/L Chloride Pending (98-107) mmol/L Carbon Dioxide Pending (21-32) mmol/L Anion Gap Pending (3-11) BUN Pending (7-18) mg/dl Creatinine Pending (0.6-1.2) mg/dl Est Cr Clr Drug Dosing Pending Est GFR ( Amer) Pending Est GFR (Non-Af Amer) Pending BUN/Creatinine Ratio Pending (10-20) Glucose Pending (70-99) mg/dl POC Glucose (70-99) mg/dl Calcium Pending (8.5-10.1) mg/dl Phosphorus Pending Magnesium Pending Total Bilirubin (0.2-1) mg/dl AST (15-37) U/L ALT (12-78) U/L Alkaline Phosphatase (45-117) U/L Troponin I (0-0.045) ng/ml Total Protein (6.4-8.2) gm/dl Albumin (3.4-5.0) gm/dl Globulin (2.5-4.0) gm/dl Albumin/Globulin Ratio (0.9-2) Lipase (73-393) U/L Urine Color Urine Appearance (Clear) Urine pH (4.5-7.5) Ur Specific Romance (1.000-1.030) Urine Protein (Negative) Urine Glucose (UA) (Negative) Urine Ketones (Negative) Urine Blood (Negative) Urine Nitrite (Negative) Urine Bilirubin (Negative) Urine Urobilinogen (Negative) Ur Leukocyte Esterase (Negative) Urine WBC (Auto) (0-5) /hpf Urine RBC (Auto) (0-4) /hpf U Hyaline Cast (Auto) (0-5) /lpf U Epithel Cells (Auto) (0-5) /lpf Urine Bacteria (Auto) (Negative) POC Ur Test (NEG) Nasal Screen MRSA (PCR) Negative (Negative) COVID-19 Eval Order SARS-CoV-2 (PCR) (Negative) Hep Bs Antigen (Neg) Hep Bs Antibody Hep Bs Antibody, Quant (>or=10mIU/mL Immune) mIU/mL Influenza Type A (PCR) (Neg) Influenza Type B (PCR) (Neg) RSV (RT-PCR) (Neg) 09/09/20 09/09/20 09/09/20 Range/Units Unknown Unknown 20:02 WBC (4.8-10.8) K/uL RBC (4.2-5.4) M/uL Hgb (12.0-16.0) g/dL Hct (37-47) % MCV (80-100) fL MCH (25-34) pg MCHC (32-36) g/dL RDW Std Deviation (36.4-46.3) fL RDW Coeff of Lebron (11.5-14.5) % Plt Count (130-400) K/uL MPV (7.4-10.4) fL Immature Gran % (Auto) % Neut % (Auto) % Lymph % (Auto) % [place] % (Auto) % Eos % (Auto) % Baso % (Auto) % Neut # (Auto) (1.4-6.5) K/uL Lymph # (Auto) (1.2-3.4) K/uL [place] # (Auto) (0.11-0.59) K/uL Eos # (Auto) (0-0.5) K/uL Baso # (Auto) (0-0.2) K/uL Immature Gran # (Auto) (0.00-0.02) K/uL PT (9.0-12.0) Seconds INR (0.9-1.1) Sodium (136-145) mmol/L Potassium (3.5-5.1) mmol/L Chloride (98-107) mmol/L Carbon Dioxide (21-32) mmol/L Anion Gap (3-11) BUN (7-18) mg/dl Creatinine (0.6-1.2) mg/dl Est Cr Clr Drug Dosing Est GFR ( Amer) Est GFR (Non-Af Amer) BUN/Creatinine Ratio (10-20) Glucose (70-99) mg/dl POC Glucose 93 (70-99) mg/dl Calcium (8.5-10.1) mg/dl Phosphorus Magnesium Total Bilirubin (0.2-1) mg/dl AST (15-37) U/L ALT (12-78) U/L Alkaline Phosphatase (45-117) U/L Troponin I (0-0.045) ng/ml Total Protein (6.4-8.2) gm/dl Albumin (3.4-5.0) gm/dl Globulin (2.5-4.0) gm/dl Albumin/Globulin Ratio (0.9-2) Lipase (73-393) U/L Urine Color Yellow Urine Appearance Clear (Clear) Urine pH >= 9.0 H (4.5-7.5) Ur Specific Romance 1.014 (1.000-1.030) Urine Protein 2+ H (Negative) Urine Glucose (UA) Negative (Negative) Urine Ketones Negative (Negative) Urine Blood Negative (Negative) Urine Nitrite Negative (Negative) Urine Bilirubin Negative (Negative) Urine Urobilinogen Negative (Negative) Ur Leukocyte Esterase Negative (Negative) Urine WBC (Auto) 1-5 (0-5) /hpf Urine RBC (Auto) 0-4 (0-4) /hpf U Hyaline Cast (Auto) 1-5 (0-5) /lpf U Epithel Cells (Auto) >30 H (0-5) /lpf Urine Bacteria (Auto) 1+ H (Negative) POC Ur Test NEG (NEG) Nasal Screen MRSA (PCR) (Negative) COVID-19 Eval Order SARS-CoV-2 (PCR) (Negative) Hep Bs Antigen (Neg) Hep Bs Antibody Hep Bs Antibody, Quant (>or=10mIU/mL Immune) mIU/mL Influenza Type A (PCR) (Neg) Influenza Type B (PCR) (Neg) RSV (RT-PCR) (Neg) 09/09/20 09/09/20 09/09/20 Range/Units 19:15 14:22 14:09 WBC (4.8-10.8) K/uL RBC (4.2-5.4) M/uL Hgb (12.0-16.0) g/dL Hct (37-47) % MCV (80-100) fL MCH (25-34) pg MCHC (32-36) g/dL RDW Std Deviation (36.4-46.3) fL RDW Coeff of Lebron (11.5-14.5) % Plt Count (130-400) K/uL MPV (7.4-10.4) fL Immature Gran % (Auto) % Neut % (Auto) % Lymph % (Auto) % [place] % (Auto) % Eos % (Auto) % Baso % (Auto) % Neut # (Auto) (1.4-6.5) K/uL Lymph # (Auto) (1.2-3.4) K/uL [place] # (Auto) (0.11-0.59) K/uL Eos # (Auto) (0-0.5) K/uL Baso # (Auto) (0-0.2) K/uL Immature Gran # (Auto) (0.00-0.02) K/uL PT (9.0-12.0) Seconds INR (0.9-1.1) Sodium 137 (136-145) mmol/L Potassium 4.3 D (3.5-5.1) mmol/L Chloride 102 (98-107) mmol/L Carbon Dioxide 32 (21-32) mmol/L Anion Gap 2.0 L (3-11) BUN 15 D (7-18) mg/dl Creatinine 3.28 H D (0.6-1.2) mg/dl Est Cr Clr Drug Dosing 15.9 Est GFR ( Amer) 17.8 Est GFR (Non-Af Amer) 15.4 BUN/Creatinine Ratio 4.5 L (10-20) Glucose 111 H (70-99) mg/dl POC Glucose 85 (70-99) mg/dl Calcium 8.3 L (8.5-10.1) mg/dl Phosphorus Magnesium Total Bilirubin (0.2-1) mg/dl AST (15-37) U/L ALT (12-78) U/L Alkaline Phosphatase (45-117) U/L Troponin I (0-0.045) ng/ml Total Protein (6.4-8.2) gm/dl Albumin (3.4-5.0) gm/dl Globulin (2.5-4.0) gm/dl Albumin/Globulin Ratio (0.9-2) Lipase (73-393) U/L Urine Color Urine Appearance (Clear) Urine pH (4.5-7.5) Ur Specific Romance (1.000-1.030) Urine Protein (Negative) Urine Glucose (UA) (Negative) Urine Ketones (Negative) Urine Blood (Negative) Urine Nitrite (Negative) Urine Bilirubin (Negative) Urine Urobilinogen (Negative) Ur Leukocyte Esterase (Negative) Urine WBC (Auto) (0-5) /hpf Urine RBC (Auto) (0-4) /hpf U Hyaline Cast (Auto) (0-5) /lpf U Epithel Cells (Auto) (0-5) /lpf Urine Bacteria (Auto) (Negative) POC Ur Test (NEG) Nasal Screen MRSA (PCR) (Negative) COVID-19 Eval Order SARS-CoV-2 (PCR) NEGATIVE (Negative) Hep Bs Antigen (Neg) Hep Bs Antibody Hep Bs Antibody, Quant (>or=10mIU/mL Immune) mIU/mL Influenza Type A (PCR) Negative (Neg) Influenza Type B (PCR) Negative (Neg) RSV (RT-PCR) Negative (Neg) 09/09/20 09/09/20 09/09/20 Range/Units 14:09 11:45 11:45 WBC (4.8-10.8) K/uL RBC (4.2-5.4) M/uL Hgb (12.0-16.0) g/dL Hct (37-47) % MCV (80-100) fL MCH (25-34) pg MCHC (32-36) g/dL RDW Std Deviation (36.4-46.3) fL RDW Coeff of Lebron (11.5-14.5) % Plt Count (130-400) K/uL MPV (7.4-10.4) fL Immature Gran % (Auto) % Neut % (Auto) % Lymph % (Auto) % [place] % (Auto) % Eos % (Auto) % Baso % (Auto) % Neut # (Auto) (1.4-6.5) K/uL Lymph # (Auto) (1.2-3.4) K/uL [place] # (Auto) (0.11-0.59) K/uL Eos # (Auto) (0-0.5) K/uL Baso # (Auto) (0-0.2) K/uL Immature Gran # (Auto) (0.00-0.02) K/uL PT (9.0-12.0) Seconds INR (0.9-1.1) Sodium 134 L (136-145) mmol/L Potassium 6.0 H (3.5-5.1) mmol/L Chloride 97 L (98-107) mmol/L Carbon Dioxide 33 H (21-32) mmol/L Anion Gap 3.0 (3-11) BUN 34 H (7-18) mg/dl Creatinine 5.50 H* (0.6-1.2) mg/dl Est Cr Clr Drug Dosing Not Reportable Est GFR ( Amer) 9.6 Est GFR (Non-Af Amer) 8.2 BUN/Creatinine Ratio 6.1 L (10-20) Glucose 117 H (70-99) mg/dl POC Glucose (70-99) mg/dl Calcium 9.2 (8.5-10.1) mg/dl Phosphorus Magnesium Total Bilirubin 0.5 (0.2-1) mg/dl AST 15 (15-37) U/L ALT 20 (12-78) U/L Alkaline Phosphatase 74 (45-117) U/L Troponin I < 0.015 (0-0.045) ng/ml Total Protein 7.8 (6.4-8.2) gm/dl Albumin 3.9 (3.4-5.0) gm/dl Globulin 3.9 (2.5-4.0) gm/dl Albumin/Globulin Ratio 1.0 (0.9-2) Lipase 64 L (73-393) U/L Urine Color Urine Appearance (Clear) Urine pH (4.5-7.5) Ur Specific Romance (1.000-1.030) Urine Protein (Negative) Urine Glucose (UA) (Negative) Urine Ketones (Negative) Urine Blood (Negative) Urine Nitrite (Negative) Urine Bilirubin (Negative) Urine Urobilinogen (Negative) Ur Leukocyte Esterase (Negative) Urine WBC (Auto) (0-5) /hpf Urine RBC (Auto) (0-4) /hpf U Hyaline Cast (Auto) (0-5) /lpf U Epithel Cells (Auto) (0-5) /lpf Urine Bacteria (Auto) (Negative) POC Ur Test (NEG) Nasal Screen MRSA (PCR) (Negative) COVID-19 Eval Order [facility] at [facility] SARS-CoV-2 (PCR) (Negative) Hep Bs Antigen Neg (Neg) Hep Bs Antibody Immune Hep Bs Antibody, Quant > 1000.00 (>or=10mIU/mL Immune) mIU/mL Influenza Type A (PCR) (Neg) Influenza Type B (PCR) (Neg) RSV (RT-PCR) (Neg) 09/09/20 09/09/20 Range/Units 11:45 11:45 WBC 3.87 L (4.8-10.8) K/uL RBC 4.11 L (4.2-5.4) M/uL Hgb 12.3 (12.0-16.0) g/dL Hct 37.7 (37-47) % MCV 91.7 (80-100) fL MCH 29.9 (25-34) pg MCHC 32.6 (32-36) g/dL RDW Std Deviation 46.4 H (36.4-46.3) fL RDW Coeff of Lebron 14.1 (11.5-14.5) % Plt Count 286 (130-400) K/uL MPV 10.0 (7.4-10.4) fL Immature Gran % (Auto) 0.0 % Neut % (Auto) 33.8 % Lymph % (Auto) 52.5 % [place] % (Auto) 9.3 % Eos % (Auto) 3.9 % Baso % (Auto) 0.5 % Neut # (Auto) 1.31 L (1.4-6.5) K/uL Lymph # (Auto) 2.03 (1.2-3.4) K/uL [place] # (Auto) 0.36 (0.11-0.59) K/uL Eos # (Auto) 0.15 (0-0.5) K/uL Baso # (Auto) 0.02 (0-0.2) K/uL Immature Gran # (Auto) 0.00 (0.00-0.02) K/uL PT 10.9 (9.0-12.0) Seconds INR 1.1 (0.9-1.1) Sodium (136-145) mmol/L Potassium (3.5-5.1) mmol/L Chloride (98-107) mmol/L Carbon Dioxide (21-32) mmol/L Anion Gap (3-11) BUN (7-18) mg/dl Creatinine (0.6-1.2) mg/dl Est Cr Clr Drug Dosing Est GFR ( Amer) Est GFR (Non-Af Amer) BUN/Creatinine Ratio (10-20) Glucose (70-99) mg/dl POC Glucose (70-99) mg/dl Calcium (8.5-10.1) mg/dl Phosphorus Magnesium Total Bilirubin (0.2-1) mg/dl AST (15-37) U/L ALT (12-78) U/L Alkaline Phosphatase (45-117) U/L Troponin I (0-0.045) ng/ml Total Protein (6.4-8.2) gm/dl Albumin (3.4-5.0) gm/dl Globulin (2.5-4.0) gm/dl Albumin/Globulin Ratio (0.9-2) Lipase (73-393) U/L Urine Color Urine Appearance (Clear) Urine pH (4.5-7.5) Ur Specific Romance (1.000-1.030) Urine Protein (Negative) Urine Glucose (UA) (Negative) Urine Ketones (Negative) Urine Blood (Negative) Urine Nitrite (Negative) Urine Bilirubin (Negative) Urine Urobilinogen (Negative) Ur Leukocyte Esterase (Negative) Urine WBC (Auto) (0-5) /hpf Urine RBC (Auto) (0-4) /hpf U Hyaline Cast (Auto) (0-5) /lpf U Epithel Cells (Auto) (0-5) /lpf Urine Bacteria (Auto) (Negative) POC Ur Test (NEG) Nasal Screen MRSA (PCR) (Negative) COVID-19 Eval Order SARS-CoV-2 (PCR) (Negative) Hep Bs Antigen (Neg) Hep Bs Antibody Hep Bs Antibody, Quant (>or=10mIU/mL Immune) mIU/mL Influenza Type A (PCR) (Neg) Influenza Type B (PCR) (Neg) RSV (RT-PCR) (Neg) Medications Administered Current Inpatient Medications Acetaminophen (Acetaminophen 325 Mg Tab) 650 mg PO Q4H PRN PRN Reason: Pain or Fever Stop: 10/09/20 17:18 Aripiprazole (Aripiprazole 5 Mg Tab) 5 mg PO HS SARAH Stop: 10/09/20 20:59 Last Admin: 09/09/20 20:13 Dose: 5 mg Documented by: Atorvastatin Calcium (Atorvastatin 40 Mg Tab) 40 mg PO HS SARAH Stop: 10/09/20 20:59 Last Admin: 09/09/20 20:13 Dose: 40 mg Documented by: Benztropine Mesylate (Benztropine Mesylate 0.5 Mg Tab) 0.5 mg PO HS SARAH Stop: 10/09/20 20:59 Last Admin: 09/09/20 20:13 Dose: 0.5 mg Documented by: Buspirone HCl (Buspirone 5 Mg Tab) 10 mg PO TID SARAH Stop: 10/09/20 20:59 Last Admin: 09/09/20 20:13 Dose: 10 mg Documented by: Calcium Acetate (Calcium Acetate 667 Mg Cap/Tab) 667 mg PO TIDM SARAH Stop: 10/09/20 17:18 Last Admin: 09/09/20 18:53 Dose: 667 mg Documented by: Dextrose (Dextrose 50% 50 Ml Syringe) 25 - 50 ml IV UD PRN; Protocol PRN Reason: Hypoglycemia Protocol Stop: 10/09/20 17:18 Ergocalciferol (Ergocalciferol 50,000 Units 1250 Mcg Cap) 50,000 units PO Fr@0 900 SARAH Stop: 10/09/20 17:59 Last Admin: 09/09/20 18:53 Dose: 50,000 units Documented by: Glucagon (Glucagon For Inj 1 Mg Vial) 1 mg SQ UD PRN; Protocol PRN Reason: Hypoglycemia Protocol Stop: 10/09/20 17:18 Glucose (Glucose 10 Tabs/Tube) 4 - 8 tabs PO UD PRN; Protocol PRN Reason: Hypoglycemia Protocol Stop: 10/09/20 17:18 Glucose (Glucose 40% Gel 15 Gm Tube) 15 - 30 gm PO UD PRN; Protocol PRN Reason: Hypoglycemia Protocol Stop: 10/09/20 17:18 Heparin Sodium (Porcine) (Heparin Sod 5,000 Unit/0.5 Ml Vial) 5,000 units SQ Q12 SARAH Stop: 10/09/20 20:59 Last Admin: 09/09/20 20:12 Dose: 5,000 units Documented by: Hydroxyzine HCl (Hydroxyzine Hcl 25 Mg Tab) 25 mg PO TID PRN PRN Reason: Anxiety Stop: 10/09/20 17:18 Ceftriaxone Sodium 1,000 mg/ (Dextrose) 50 mls @ 100 mls/hr IV Q24H [facility]; Protocol Stop: 09/14/20 17:59 Last Infusion: 09/09/20 19:00 Dose: Infused Documented by: Insulin Aspart (Insulin Aspart 100 Units/Ml 3 Ml Pen) 0 units SC ACHS [facility] Stop: 10/09/20 17:44 Last Admin: 09/09/20 20:15 Dose: Not Given Documented by: Insulin Glargine (Insulin Glargine Solostar 100 Units/Ml 3 Ml Pen) 12 units SQ HS [facility] Stop: 10/09/20 20:59 Last Admin: 09/09/20 20:14 Dose: 12 units Documented by: Lactulose (Lactulose Syrup 10 Gm/15 Ml Btl 960 Ml) 10 gm PO BID PRN PRN Reason: Constipation Stop: 10/09/20 17:32 Lamotrigine (Lamotrigine 25 Mg Tab) 50 mg PO [facility] Stop: 10/09/20 20:59 Last Admin: 09/09/20 20:11 Dose: 50 mg Documented by: Levetiracetam (Levetiracetam 500 Mg Tab) 500 mg PO BID [facility] Stop: 10/09/20 20:59 Last Admin: 09/09/20 20:11 Dose: 500 mg Documented by: Linaclotide (Linaclotide 145 Mcg Capsule) 145 mcg PO QAM [facility] Stop: 10/10/20 08:59 Melatonin (Melatonin 3 Mg Tab) 3 mg PO [facility] Stop: 10/09/20 20:59 Last Admin: 09/09/20 20:12 Dose: 3 mg Documented by: Metoclopramide HCl (Metoclopramide Hcl 5 Mg Tablet) 5 mg PO TID PRN PRN Reason: Nausea Stop: 10/09/20 17:18 Last Admin: 09/09/20 20:12 Dose: 5 mg Documented by: Miscellaneous (Carbohydrates For Hypoglycemia ) 15 - 30 gm PO UD PRN PRN Reason: Hypoglycemia Protocol Stop: 10/09/20 17:18 Miscellaneous (*Lubiprostone*Order Awaiting Action) 1 ea N/A QS [facility] Stop: 10/10/20 00:00 Last Admin: 09/10/20 00:02 Dose: Not Given Documented by: Miscellaneous (*Trimethobenzamide*Order Awaiting Action) 1 ea N/A QS [facility] Stop: 10/10/20 00:00 Last Admin: 09/10/20 00:02 Dose: Not Given Documented by: Ondansetron HCl (Ondansetron Inj 2 Mg/Ml 2 Ml Vial) 4 mg IV Q6H PRN PRN Reason: Nausea Stop: 10/09/20 17:18 Oxycodone/Acetaminophen (Oxycodone/Acetaminophen 5mg/325mg Tab) 1 tab PO Q4H PRN PRN Reason: Pain Stop: 09/23/20 18:45 Last Admin: 09/09/20 18:56 Dose: 1 tab Documented by: Pantoprazole Sodium (Pantoprazole 40 Mg Tab) 40 mg PO QAM [facility] Stop: 10/10/20 08:59 Polyethylene Glycol (Polyethylene (Miralax) 17 Gm Pack) 17 gm PO DAILY PRN PRN Reason: Constipation Stop: 10/09/20 17:18 Polyethylene Glycol (Polyethylene (Miralax) 17 Gm Pack) 17 gm PO QAM [facility] Stop: 10/10/20 08:59 Sertraline HCl (Sertraline Hcl 50 Mg Tablet) 75 mg PO HS [facility] Stop: 10/09/20 20:59 Last Admin: 09/09/20 20:12 Dose: 75 mg Documented by: Sevelamer HCl (Sevelamer Hcl 800 Mg Tablet) 800 mg PO TIDM SARAH Stop: 10/09/20 17:39 Last Admin: 09/09/20 18:53 Dose: 800 mg Documented by: Sucralfate (Sucralfate 1 Gm/10 Ml Udc) 1 gm PO BID SARAH Stop: 10/09/20 20:59 Last Admin: 09/09/20 20:21 Dose: 1 gm Documented by: Temazepam (Temazepam 15 Mg Capsule) 15 mg PO HS SARAH Stop: 10/09/20 20:59 Last Admin: 09/09/20 20:21 Dose: 15 mg Documented by: Trazodone HCl (Trazodone Hcl 50 Mg Tab) 75 mg PO HS PRN PRN Reason: Sleep Stop: 10/09/20 17:18 (1) Nausea & vomiting Vomiting Intractability: non-intractable Vomiting type: unspecified Qualified Code(s): R11.2 - Nausea with vomiting, unspecified (2) DM type 1 (diabetes mellitus, type 1) Diabetes mellitus complication status: with other specified complication Qualified Code(s): E10.69 - Type 1 diabetes mellitus with other specified complication (3) Constipation Constipation type: unspecified constipation type Qualified Code(s): K59.00 - Constipation, unspecified
[2020-09-10 07:40] LABS: BUN Creatinine Ratio 5.2 (10-20); Calcium 8.6 mg/dl (8.5-10.1); Creatinine Clr Calc Pharmacy 12.9 ml/min; Est GFR (African American) 13.8; Est GFR (Non-African American) 11.9; Magnesium 2.4 mg/dl (1.8-2.4); Phosphorus 5.1 mg/dl (2.5-4.9); Potassium 4.6 mmol/L (3.5-5.1)
[2020-09-10] MEDS: SEVELAMER HCL 800 MG TABLET PO SCH ×3 (08:11→18:28)
[2020-09-10] MEDS: CALCIUM ACETATE 667 MG CAP/TAB PO SCH ×3 (08:11→18:28)
[2020-09-10] MEDS: SUCRALFATE 1 GM/10 ML UDC PO SCH ×2 (08:12→20:12)
[2020-09-10] MEDS: PANTOprazole 40 MG TAB PO SCH (08:13)
[2020-09-10] MEDS: INSULIN ASPART 100 UNITS/ML 3 ML PEN SC SCH ×4 (08:15→20:49)
--- NOTE | 2020-09-10 08:51 | Electrocardiogram Report ---
Test Reason : Blood Pressure : / mmHG Vent. Rate : 080 BPM Atrial Rate : 080 BPM P-R Int : 158 ms QRS Dur : 078 ms QT Int : 422 ms P-R-T Axes : 068 003 043 degrees QTc Int : 486 ms Normal sinus rhythm Prolonged QT Abnormal ECG When compared with ECG of 09-SEP-2020 14:40, Criteria for Septal infarct no longer present Otherwise no significant change Confirmed by Wil Berger ([id number]) on 09/10/2020 8:51:26 AM Referred By: REFERRED SELF Confirmed By:Wil Berger
[2020-09-10] MEDS: LINACLOTIDE 145 MCG CAPSULE PO SCH (08:57)
[2020-09-10] MEDS: POLYETHYLENE (MIRALAX) 17 GM PACK PO SCH (08:57)
[2020-09-10] MEDS: levETIRAcetam 500 MG TAB PO SCH ×2 (08:57→20:12)
[2020-09-10] MEDS: HEPARIN SOD 5,000 UNIT/0.5 ML VIAL SQ SCH ×2 (08:58→20:12)
[2020-09-10] MEDS: busPIRone 5 MG TAB PO SCH ×3 (08:58→20:50)
[2020-09-10] MEDS ORDERED: HEPARIN SOD (PORCINE) 1000 UNIT/ML IV ONE (09:22)
[2020-09-10] MEDS ORDERED: SODIUM CHLORIDE 0.9% 1000ML 1,000 ML IV PRN (09:22)
--- NOTE | 2020-09-10 11:06 | Nephrology Consultation ---
Date of Consultation September 10, 2020 Assessment & Plan (1) End-stage renal disease (ESRD): Patient with ESRD on dialysis Saturday. She missed dialysis outpatient on . He was dialyzed last night for two and half hours urgently due to hyperkalemia. We will dialyze her today again for 12 hours and put her back on schedule. (2) Hyperkalemia: Admission potassium of six. Patient was dialyzed for told her father last night. Potassium today 4.6. Recommend low potassium diet. We will dialyze again today on 2K bath. (3) Intractable nausea and vomiting: Due to gastroparesis. Continue conservative management. Avoid large UF. History of Present Illness Reason for Consultation: ESRD Requesting Physician: Sujit Musa MD Attending Physician: Sujit Musa MD History of Present Illness Mrs. Delong old female with history of diabetes, bipolar disorder, CVA, gastroparesis with recurrent vomiting and ESRD on dialysis Saturday at [facility] was admitted on 09/09/2020 with nausea and vomiting. She missed dialysis on 09/08/2020. Her potassium was high on admission at six. She required urgent dialysis last night for around half hours. She feels better today. Vomiting has subsided. No diarrhea. She still complains of lower a bdominal pain and right flank pain. No shortness of breath. No leg swelling. She has a right upper arm AV fistula Allergies Allergy/AdvReac Type Severity Reaction Status Date / Time Fish Containing Products Allergy Mild Hives Verified 09/09/20 14:02 latex Allergy Mild hives Verified 09/09/20 14:02 shellfish derived Allergy Mild Hives Verified 09/09/20 14:02 Home Medications Medication Instructions Recorded Confirmed Type aripiprazole [Abilify] 5 mg PO HS 05/20/19 09/09/20 History levetiracetam [Keppra] 500 mg PO BID 06/20/19 09/09/20 History atorvastatin [Lipitor] 40 mg PO HS 08/01/19 09/09/20 History melatonin 3 mg PO HS 01/29/20 09/09/20 History hydroxyzine HCl 25 mg PO TID PRN 02/20/20 09/09/20 History temazepam [Restoril] 15 mg PO HS 02/20/20 09/09/20 History trazodone 75 mg PO HS PRN 02/20/20 09/09/20 History trimethobenzamide 300 mg PO TID PRN 03/21/20 09/09/20 History benztropine 0.5 mg PO HS 07/27/20 09/09/20 History ergocalciferol (vitamin D2) 1,250 mcg PO FR 07/27/20 09/09/20 History [Vitamin D2] insulin lispro [Admelog SoloStar 7 unit SUBCUT TIDM 07/27/20 09/09/20 History U-100 Insulin] lamotrigine [Lamictal] 50 mg PO HS 07/27/20 09/09/20 History prochlorperazine maleate 5 mg PO QID PRN 07/27/20 09/09/20 History sertraline [Zoloft] 75 mg PO HS 07/27/20 09/09/20 History sevelamer carbonate 800 mg PO TIDM 07/27/20 09/09/20 History Lantus Solostar U-100 Insulin 12 unit SUBCUT HS #15 ml 07/31/20 09/09/20 Rx lactulose 10 g PO BID PRN #200 ml 07/31/20 09/09/20 Rx buspirone 10 mg PO TID 08/16/20 09/09/20 History metoclopramide HCl 5 mg PO TID PRN 08/16/20 09/09/20 History linaclotide [Linzess] 145 mcg PO QAM #30 cap 08/21/20 09/09/20 Rx pantoprazole 40 mg PO QAM #30 tab 08/21/20 09/09/20 Rx sucralfate 10 ml PO BID 30 Days #600 ml 08/21/20 09/09/20 Rx calcium acetate(phosphat bind) 667 mg PO TIDM 09/09/20 09/09/20 History lubiprostone 24 mcg PO BIDM 09/09/20 09/09/20 History polyethylene glycol 3350 [Miralax] 17 g PO QAM 09/09/20 09/09/20 History Patient History Medical History (Updated 09/10/20 @ 00:08 by Background Reshma) Anemia due to chronic kidney disease Arteriovenous fistula for hemodialysis in place, primary Bipolar disorder CKD (chronic kidney disease) stage V requiring chronic dialysis Coronary artery disease "2015 - cardiac catheterization showing nonobstructive coronary disease Stress test 06/2017 - possible small area of ischemia in the anterior wall" CVA (cerebral vascular accident) 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 history of CVA in 2018 Residual R sided weakness Depression Diabetic gastroparesis Diastolic heart failure DM type 1 (diabetes mellitus, type 1) ESRD (end stage renal disease) on dialysis GERD (gastroesophageal reflux disease) History of GI bleed Hyperlipidemia Hypertension Seizure Surgical History Hx of appendectomy Hx of cholecystectomy Hx of tubal ligation Family History (Updated 09/09/20 @ 15:38 by Keren Ding PA-C) Mother Coronary heart disease Hypertension Father Coronary heart disease Social History Smoking Status: Former smoker Tobacco Type: Cigarettes Second Hand Exposure: No; Hx Alcohol Use: No Hx Substance Use: No Preferred Language: Turkish Communication Ability: Effective Risk Consultant Required: No Beliefs That Will Affect Care: None marital status: Single Current Living Situation: Other current occupational status: unemployed Other Information That Helps Us Care for You: No Feels Safe at Home: Yes Safety Concerns: Feels Safe At This Time Assistive Devices: Walker Review of Systems Review of Systems: All systems reviewed & are unremarkable except as noted in HPI & below Physical Exam Physical Exam: General exam: Appears comfortable, no acute distress HEENT: Pupils are equal and reactive to light Neck: No JVD, neck is supple trachea is midline Respiratory system: Clear breath sounds bilaterally. Gastrointestinal: Abdomen is soft, non distended, + tender, bowel sounds are present CVS: Regular rate and rhythm. No murmurs, rubs or gallops Musculoskeletal: No joint or muscle tenderness Extremities: Non tender, no edema, peripheral pulses are present Neuro: Oriented, no tremors, no focal neurological deficits Skin: No rashes access: right UA AVF good bruit Results & Data ([facility]) Vital Signs (Past 12 Hours) Vital Signs Temp Pulse Pulse Resp BP Pulse Ox 09/10/20 10:41 79 09/10/20 07:07 36.8 C 84 16 159/80 H 100 09/10/20 04:26 36.7 C 79 19 133/66 96 09/10/20 02:23 79 09/09/20 23:59 36.6 C 75 16 138/73 96 Laboratory Results 09/10/20 06:14 09/09/20 09/09/20 09/10/20 11:45 11:45 06:14 WBC 3.87 L 3.49 L RBC 4.11 L 3.92 L MCV 91.7 92.1 MCH 29.9 30.4 MCHC 32.6 33.0 RDW Std Deviation 46.4 H 46.8 H RDW Coeff of Lebron 14.1 14.1 Plt Count 286 266 MPV 10.0 9.8 Phosphorus Albumin 3.9 09/10/20 06:14 WBC RBC MCV MCH MCHC RDW Std Deviation RDW Coeff of Lebron Plt Count MPV Phosphorus 5.1 H Albumin
[2020-09-10] MEDS: HEPARIN SOD (PORCINE) 1000 UNIT/ML IV SCH (16:13)
[2020-09-10] MEDS: oxyCODONE/ACETAMINOPHEN 5mg/325mg TAB PO PRN (18:12)
[2020-09-10] MEDS: cefTRIAXone SODIUM 1,000 MG in DEXTROSE 5% 50 ML IV SCH (18:35)
[2020-09-10] MEDS: BENZTROPINE MESYLATE 0.5 MG TAB PO SCH (20:11)
[2020-09-10] MEDS: TEMAZEPAM 15 MG CAPSULE PO SCH (20:11)
[2020-09-10] MEDS: lamoTRIgine 25 MG TAB PO SCH (20:11)
[2020-09-10] MEDS: SERTRALINE HCL 50 MG TABLET PO SCH (20:11)
[2020-09-10] MEDS: ARIPiprazole 5 MG TAB PO SCH (20:12)
[2020-09-10] MEDS: ATORVASTATIN 40 MG TAB PO SCH (20:12)
[2020-09-10] MEDS: MELATONIN 3 MG TAB PO SCH (20:13)
[2020-09-10] MEDS: INSULIN GLARGINE SOLOSTAR 100 UNITS/ML 3 ML PEN SQ SCH (20:49)
[2020-09-11 06:51] LABS: Hemoglobin 11.4 g/dL (12.0-16.0); Mean Corpuscular Hemoglobin 30.6 pg (25-34); Mean Corpuscular Hgb Conc 33.5 g/dL (32-36); Mean Corpuscular Volume 91.2 fL (80-100); Mean Platelet Volume 9.7 fL (7.4-10.4); Platelet Count 250 K/uL (130-400); RDW Coefficient of Variation 13.9 % (11.5-14.5); RDW Standard Deviation 45.5 fL (36.4-46.3); Red Blood Count 3.73 M/uL (4.2-5.4); White Blood Count 3.42 K/uL (4.8-10.8)
[2020-09-11] MEDS: SEVELAMER HCL 800 MG TABLET PO SCH ×3 (07:20→17:06)
[2020-09-11] MEDS: SUCRALFATE 1 GM/10 ML UDC PO SCH ×2 (07:20→20:27)
[2020-09-11] MEDS: [UNRECOGNIZED DRUG - REMARK] SCH ×2 (07:20→15:29)
[2020-09-11] MEDS: POLYETHYLENE (MIRALAX) 17 GM PACK PO SCH (07:21)
[2020-09-11] MEDS: LINACLOTIDE 145 MCG CAPSULE PO SCH (07:21)
[2020-09-11] MEDS: PANTOprazole 40 MG TAB PO SCH (07:21)
[2020-09-11] MEDS: CALCIUM ACETATE 667 MG CAP/TAB PO SCH ×3 (07:21→17:06)
[2020-09-11] MEDS: levETIRAcetam 500 MG TAB PO SCH ×2 (07:22→20:30)
[2020-09-11] MEDS: HEPARIN SOD 5,000 UNIT/0.5 ML VIAL SQ SCH ×2 (07:22→20:27)
[2020-09-11 07:23] LABS: BUN Creatinine Ratio 4.5 (10-20); Calcium 8.5 mg/dl (8.5-10.1); Creatinine Clr Calc Pharmacy 14.3 ml/min; Est GFR (African American) 15.7; Est GFR (Non-African American) 13.5; Magnesium 2.3 mg/dl (1.8-2.4); Potassium 4.6 mmol/L (3.5-5.1)
[2020-09-11] MEDS: busPIRone 5 MG TAB PO SCH ×3 (07:23→20:27)
[2020-09-11 07:25] LABS: Phosphorus 4.5 mg/dl (2.5-4.9)
--- NOTE | 2020-09-11 08:09 | Hospitalist Progress Note ---
Date of Service September 11, 2020 Assessment & Plan (1) Nausea & vomiting: Diarrhea, Abdominal pain H/O gastroparesis Pt is 50 y/o F with PMH ESRD on HD, chronic diastolic HF, CVA, CAD, COPD, GERD, gastroparesis, HTN, dyslipidemia, h/o GI bleed, seizure disorder, DM I, bipolar disorder presented to ER with c/o N/V x 6 episodes yesterday, one episode loose stools. Denies fevers In ER afebrile, vitals stable. No leukocytosis. CT ABD/PELVIS: unremarkable In ER given Zofran, Toradol, 2L NSS Monitor for additional diarrhea, stool studies ordered Continue Reglan CBC, BMP in am No episodes of emesis in the hospital. Currently no BM. No stool sample obtained for stool studies. Patient is now tolerating p.o. without difficulty. She reports right lower quadrant discomfort. Difficult to say if this is is on of her chronic abdominal discomforts. She is supposed to follow-up with GI for gastroparesis however she does not make her appointments. She says that she wants to go for those appointments but "they do not make appointments for her". On CT abdomen on admission, bladder dilated. Patient was bladder scanned today, September 11, about 300 cc of urine. Patient has no urge to urinate. Reports burning with urination 2 days ago. Will obtain urine sample by catheter. (2) Dysuria: Possible UTI Reports dysuria. UA: 1+bacteria, negative nitrite, negative leuk esterase Urine culture shows multiple bacteria, likely skin tolu Was started on Rocephin on admission CT abdomen on admission, bladder dilated. Bladder scan today, September 11, about 300 cc of urine. Patient has no urge to urinate. Reports burning with urination 2 days ago (prior to admission). We will obtain urine sample by catheter. (3) Hyperkalemia: K: 6. Pt missed HD. No acute EKG changes HD - emergent on admission and then again on 09/10 resolved cont. to monitor (4) End-stage renal disease (ESRD): On HD on , Sat Missed dialysis 09/08/20 HD now Nephrology on board, underwent emergency HD on admission, and then again on 09/10 Continue renal meds (5) DM type 1 (diabetes mellitus, type 1): A1c: 8.1 in 07/2020 Continue basal bolus insulin (6) Seizure: H/O seizure disorder Continue Keppra (7) Constipation: Chronic constipation Continue linzess, miralax prn, lactulose prn (8) Bipolar disorder: Continue home meds DVT Prophylaxis -Heparin SQ Full Code as per discussion with pt Follows with Dr Anguiano for routine care Admission and Anticipated Discharge Date Admission Date: September 09, 2020 Subjective Patient seen in follow-up of hyperkalemia, abdominal pain Currently laying in bed, in no acute distress, underwent emergent dialysis on admission and had another dialysis the next day, yesterday No plan for dialysis today, patient is back on her regular schedule, next dialysis planned for Saturday Prior to admission, reported emesis, diarrhea, patient is now eating without difficulty, no vomiting while in the hospital, no BM Stool studies not obtained yet due to lack of sample No fever chills Patient does not urinate much, however she does complain of right lower quadrant discomfort. She has chronic abdominal discomfort, and is supposed to follow-up with GI for gastroparesis, however she does not. Last GI note, patient does not come to appointments. She says that she wants to go to those appointments but they do not have appointment for her. CT scan on admission, bladder dilated. Bladder scan her today, about 300 cc of urine. Patient denies any urge for urination. She does report dull burning with urination about 2 days ago. Will obtain a sample with catheter. Review of Systems Review of Systems: All systems reviewed & are unremarkable except as noted in HPI & below Constitutional: no fever and no chills Respiratory: no cough and no dyspnea Cardiovascular: no chest pain and no palpitations Gastrointestinal: + abdominal pain (R lower quadrant discomfort); no vomiting Physical Exam Physical Exam: General: no distress, WDWN Head: normocephalic, atraumatic Eyes: conjunctiva non-injected, anicteric ENT: normal inspection external ears, nose, mucous membranes moist Neck: supple, trachea midline Lungs: clear, no respiratory distress, no wheezing/rhonchi/rales CV: RRR, no murmur, no pretibial edema Abd: normal BS, soft, +tenderness to palpation at RLQ Ext: no cyanosis, RUE with fistula Neuro: A&O x 3, no focal deficits noted, normal affect Skin: warm, dry Results & Data Results & Data ([facility]) Vital Signs (Past 12 Hours) Vital Signs Temp Pulse Resp BP Pulse Ox 09/11/20 04:00 36.8 C 79 16 145/74 H 97 09/10/20 22:23 36.8 C 81 16 118/61 96 Laboratory Results 09/11/20 09/11/20 09/11/20 Range/Units 07:57 06:26 06:26 WBC 3.42 L (4.8-10.8) K/uL RBC 3.73 L (4.2-5.4) M/uL Hgb 11.4 L (12.0-16.0) g/dL Hct 34.0 L (37-47) % MCV 91.2 (80-100) fL MCH 30.6 (25-34) pg MCHC 33.5 (32-36) g/dL RDW Std Deviation 45.5 (36.4-46.3) fL RDW Coeff of Lebron 13.9 (11.5-14.5) % Plt Count 250 (130-400) K/uL MPV 9.7 (7.4-10.4) fL Sodium 136 (136-145) mmol/L Potassium 4.6 (3.5-5.1) mmol/L Chloride 100 (98-107) mmol/L Carbon Dioxide 32 (21-32) mmol/L Anion Gap 4.0 (3-11) BUN 16 (7-18) mg/dl Creatinine 3.65 H D (0.6-1.2) mg/dl Est Cr Clr Drug Dosing 14.3 ml/min Est GFR ( Amer) 15.7 Est GFR (Non-Af Amer) 13.5 BUN/Creatinine Ratio 4.5 L (10-20) Glucose 190 H (70-99) mg/dl POC Glucose 222 H (70-99) mg/dl Calcium 8.5 (8.5-10.1) mg/dl Phosphorus 4.5 (2.5-4.9) mg/dl Magnesium 2.3 (1.8-2.4) mg/dl 09/10/20 09/10/20 09/10/20 Range/Units 20:09 18:01 11:20 WBC (4.8-10.8) K/uL RBC (4.2-5.4) M/uL Hgb (12.0-16.0) g/dL Hct (37-47) % MCV (80-100) fL MCH (25-34) pg MCHC (32-36) g/dL RDW Std Deviation (36.4-46.3) fL RDW Coeff of Lebron (11.5-14.5) % Plt Count (130-400) K/uL MPV (7.4-10.4) fL Sodium (136-145) mmol/L Potassium (3.5-5.1) mmol/L Chloride (98-107) mmol/L Carbon Dioxide (21-32) mmol/L Anion Gap (3-11) BUN (7-18) mg/dl Creatinine (0.6-1.2) mg/dl Est Cr Clr Drug Dosing ml/min Est GFR ( Amer) Est GFR (Non-Af Amer) BUN/Creatinine Ratio (10-20) Glucose (70-99) mg/dl POC Glucose 166 H 90 234 H (70-99) mg/dl Calcium (8.5-10.1) mg/dl Phosphorus (2.5-4.9) mg/dl Magnesium (1.8-2.4) mg/dl Medications Administered Current Inpatient Medications Acetaminophen (Acetaminophen 325 Mg Tab) 650 mg PO Q4H PRN PRN Reason: Pain or Fever Stop: 10/09/20 17:18 Aripiprazole (Aripiprazole 5 Mg Tab) 5 mg PO [facility] Stop: 10/09/20 20:59 Last Admin: 09/10/20 20:12 Dose: 5 mg Documented by: Atorvastatin Calcium (Atorvastatin 40 Mg Tab) 40 mg PO HS SARAH Stop: 10/09/20 20:59 Last Admin: 09/10/20 20:12 Dose: 40 mg Documented by: Benztropine Mesylate (Benztropine Mesylate 0.5 Mg Tab) 0.5 mg PO [facility] Stop: 10/09/20 20:59 Last Admin: 09/10/20 20:11 Dose: 0.5 mg Documented by: Buspirone HCl (Buspirone 5 Mg Tab) 10 mg PO TID SARAH Stop: 10/09/20 20:59 Last Admin: 09/11/20 07:23 Dose: 10 mg Documented by: Calcium Acetate (Calcium Acetate 667 Mg Cap/Tab) 667 mg PO TIDM SARAH Stop: 10/09/20 17:18 Last Admin: 09/11/20 07:21 Dose: 667 mg Documented by: Dextrose (Dextrose 50% 50 Ml Syringe) 25 - 50 ml IV UD PRN; Protocol PRN Reason: Hypoglycemia Protocol Stop: 10/09/20 17:18 Ergocalciferol (Ergocalciferol 50,000 Units 1250 Mcg Cap) 50,000 units PO Fr@0900 SARAH Stop: 10/09/20 17:59 Last Admin: 09/09/20 18:53 Dose: 50,000 units Documented by: Glucagon (Glucagon For Inj 1 Mg Vial) 1 mg SQ UD PRN; Protocol PRN Reason: Hypoglycemia Protocol Stop: 10/09/20 17:18 Glucose (Glucose 10 Tabs/Tube) 4 - 8 tabs PO UD PRN; Protocol PRN Reason: Hypoglycemia Protocol Stop: 10/09/20 17:18 Glucose (Glucose 40% Gel 15 Gm Tube) 15 - 30 gm PO UD PRN; Protocol PRN Reason: Hypoglycemia Protocol Stop: 10/09/20 17:18 Heparin Sodium (Porcine) (Heparin Sod 5,000 Unit/0.5 Ml Vial) 5,000 units SQ Q12 SARAH Stop: 10/09/20 20:59 Last Admin: 09/11/20 07:22 Dose: 5,000 units Documented by: Hydroxyzine HCl (Hydroxyzine Hcl 25 Mg Tab) 25 mg PO TID PRN PRN Reason: Anxiety Stop: 10/09/20 17:18 Ceftriaxone Sodium 1,000 mg/ (Dextrose) 50 mls @ 100 mls/hr IV Q24H [facility]; Protocol Stop: 09/14/20 17:59 Last Infusion: 09/10/20 22:15 Dose: Infused Documented by: Insulin Aspart (Insulin Aspart 100 Units/Ml 3 Ml Pen) 0 units SC ACHS [facility] Stop: 10/09/20 17:44 Last Admin: 09/10/20 20:49 Dose: 1 units Documented by: Insulin Glargine (Insulin Glargine Solostar 100 Units/Ml 3 Ml Pen) 12 units SQ HS SARAH Stop: 10/09/20 20:59 Last Admin: 09/10/20 20:49 Dose: 12 units Documented by: Lactulose (Lactulose Syrup 10 Gm/15 Ml Btl 960 Ml) 10 gm PO BID PRN PRN Reason: Constipation Stop: 10/09/20 17:32 Lamotrigine (Lamotrigine 25 Mg Tab) 50 mg PO [facility] Stop: 10/09/20 20:59 Last Admin: 09/10/20 20:11 Dose: 50 mg Documented by: Levetiracetam (Levetiracetam 500 Mg Tab) 500 mg PO BID [facility] Stop: 10/09/20 20:59 Last Admin: 09/11/20 07:22 Dose: 500 mg Documented by: Linaclotide (Linaclotide 145 Mcg Capsule) [facility] Stop: 10/10/20 08:59 Last Admin: 09/11/20 07:21 Dose: 145 mcg Documented by: Melatonin (Melatonin 3 Mg Tab) 3 mg PO [facility] Stop: 10/09/20 20:59 Last Admin: 09/10/20 20:13 Dose: 3 mg Documented by: Metoclopramide HCl (Metoclopramide Hcl 5 Mg Tablet) 5 mg PO TID PRN PRN Reason: Nausea Stop: 10/09/20 17:18 Last Admin: 09/09/20 20:12 Dose: 5 mg Documented by: Miscellaneous (Carbohydrates For Hypoglycemia ) 15 - 30 gm PO UD PRN PRN Reason: Hypoglycemia Protocol Stop: 10/09/20 17:18 Miscellaneous (*Lubiprostone*Order Awaiting Action) 1 ea N/A QS [facility] Stop: 10/10/20 00:00 Last Admin: 09/11/20 07:20 Dose: Not Given Documented by: Miscellaneous (*Trimethobenzamide*Order Awaiting Action) 1 ea N/A QS [facility] Stop: 10/10/20 00:00 Last Admin: 09/11/20 07:20 Dose: Not Given Documented by: Ondansetron HCl (Ondansetron Inj 2 Mg/Ml 2 Ml Vial) 4 mg IV Q6H PRN PRN Reason: Nausea Stop: 10/09/20 17:18 Oxycodone/Acetaminophen (Oxycodone/Acetaminophen 5mg/325mg Tab) 1 tab PO Q4H PRN PRN Reason: Pain Stop: 09/23/20 18:45 Last Admin: 09/10/20 18:12 Dose: 1 tab Documented by: Pantoprazole Sodium (Pantoprazole 40 Mg Tab) 40 mg PO QAM [facility] Stop: 10/10/20 08:59 Last Admin: 09/11/20 07:21 Dose: 40 mg Documented by: Polyethylene Glycol (Polyethylene (Miralax) 17 Gm Pack) 17 gm PO DAILY PRN PRN Reason: Constipation Stop: 10/09/20 17:18 Polyethylene Glycol (Polyethylene (Miralax) 17 Gm Pack) 17 gm PO QAM [facility] Stop: 10/10/20 08:59 Last Admin: 09/11/20 07:21 Dose: 17 gm Documented by: Sertraline HCl (Sertraline Hcl 50 Mg Tablet) 75 mg PO HS [facility] Stop: 10/09/20 20:59 Last Admin: 09/10/20 20:11 Dose: 75 mg Documented by: Sevelamer HCl (Sevelamer Hcl 800 Mg Tablet) 800 mg PO TIDM [facility] Stop: 10/09/20 17:39 Last Admin: 09/11/20 07:20 Dose: 800 mg Documented by: Sucralfate (Sucralfate 1 Gm/10 Ml Udc) 1 gm PO BID SARAH Stop: 10/09/20 20:59 Last Admin: 09/11/20 07:20 Dose: 1 gm Documented by: Temazepam (Temazepam 15 Mg Capsule) 15 mg PO HS [facility] Stop: 10/09/20 20:59 Last Admin: 09/10/20 20:11 Dose: 15 mg Documented by: Trazodone HCl (Trazodone Hcl 50 Mg Tab) 75 mg PO HS PRN PRN Reason: Sleep Stop: 10/09/20 17:18 (1) Nausea & vomiting Vomiting Intractability: non-intractable Vomiting type: unspecified Qualified Code(s): R11.2 - Nausea with vomiting, unspecified (2) DM type 1 (diabetes mellitus, type 1) Diabetes mellitus complication status: with other specified complication Qualified Code(s): E10.69 - Type 1 diabetes mellitus with other specified complication (3) Constipation Constipation type: unspecified constipation type Qualified Code(s): K59.00 - Constipation, unspecified
[2020-09-11] MEDS: oxyCODONE/ACETAMINOPHEN 5mg/325mg TAB PO PRN ×2 (09:04→20:39)
[2020-09-11] MEDS: INSULIN ASPART 100 UNITS/ML 3 ML PEN SC SCH ×4 (09:07→20:32)
--- NOTE | 2020-09-11 09:46 | Nephrology Progress Note ---
Date of Service September 11, 2020 Assessment & Plan (1) End-stage renal disease (ESRD): Patient with ESRD on dialysis Saturday. She missed dialysis outpatient on . He was dialyzed Saturday night for two and half hours urgently due to hyperkalemia. She was dialyzed again on Saturday put back on schedule. Electrolytes are stable no signs of volume overload. No indicat ion for dialysis today. -Next dialysis will be Saturday likely as outpatient. From renal standpoint patient can be discharged if GI symptoms have resolved (2) Hyperkalemia: Admission potassium of six. Patient was dialyzed for 2.5hrs yesterday. Potassium today 4.6. Recommend low potassium diet. (3) Intractable nausea and vomiting: Due to gastroparesis. Continue conservative management. Avoid large UF. Admission and Anticipated Discharge Date Admission Date: September 09, 2020 Subjective Seen in follow-up for ESRD. She had dialysis yesterday which she tolerated well. No vomiting or diarrhea today. She is actually constipated. No shortness of breath. She has mild abdominal pain. Review of Systems Review of Systems: All systems reviewed & are unremarkable except as noted in HPI & below Physical Exam Physical Exam: General exam: Appears comfortable, no acute distress HEENT: Pupils are equal and reactive to light Neck: No JVD, neck is supple trachea is midline Respiratory system: Clear breath sounds bilaterally. Gastrointestinal: Abdomen is soft, non distended, + tender, bowel sounds are present CVS: Regular rate and rhythm. No murmurs, rubs or gallops Musculoskeletal: No joint or muscle tenderness Extremities: Non tender, no edema, peripheral pulses are present Neuro: Oriented, no tremors, no focal neurological deficits Skin: No rashes access: right UA AVF good bruit Results & Data ([facility]) Vital Signs (Past 12 Hours) Vital Signs Temp Pulse Pulse Resp BP Pulse Ox 09/11/20 09:00 77 09/11/20 08:13 36.7 C 87 19 141/68 H 98 09/11/20 04:00 36.8 C 79 16 145/74 H 97 09/10/20 22:23 36.8 C 81 16 118/61 96 Laboratory Results 09/11/20 06:26 09/11/20 09/11/20 06:26 06:26 WBC 3.42 L RBC 3.73 L MCV 91.2 MCH 30.6 MCHC 33.5 RDW Std Deviation 45.5 RDW Coeff of Lebron 13.9 Plt Count 250 MPV 9.7 Phosphorus 4.5
[2020-09-11 16:50] LABS: Appearance Urine Clear (Clear); Bacteria Urine Automated Negative (Negative); Bilirubin Urine Negative (Negative); Blood Urine Negative (Negative); Color Urine Yellow; Epithelial Cell Urine Auto >30 /lpf (0-5); Glucose Urine UA Negative (Negative); Ketones Urine Negative (Negative); Leukocyte Esterase Urine Negative (Negative); Nitrite Urine Negative (Negative); RBC Urine Automated 0-4 /hpf (0-4); Specific Gravity Urine 1.016 (1.000-1.030); Urobilinogen Urine Negative (Negative)
[2020-09-11 16:55] LABS: Protein Urine 1+ (Negative)
[2020-09-11] MEDS: cefTRIAXone SODIUM 1,000 MG in DEXTROSE 5% 50 ML IV SCH (17:06)
[2020-09-11] MEDS: SERTRALINE HCL 50 MG TABLET PO SCH (20:27)
[2020-09-11] MEDS: TEMAZEPAM 15 MG CAPSULE PO SCH (20:27)
[2020-09-11] MEDS: MELATONIN 3 MG TAB PO SCH (20:29)
[2020-09-11] MEDS: ADVANCED PROBIOTIC 1250 MG CAPSULE PO SCH (20:29)
[2020-09-11] MEDS: ATORVASTATIN 40 MG TAB PO SCH (20:30)
[2020-09-11] MEDS: BENZTROPINE MESYLATE 0.5 MG TAB PO SCH (20:30)
[2020-09-11] MEDS: lamoTRIgine 25 MG TAB PO SCH (20:30)
[2020-09-11] MEDS: ARIPiprazole 5 MG TAB PO SCH (20:31)
[2020-09-11] MEDS: INSULIN GLARGINE SOLOSTAR 100 UNITS/ML 3 ML PEN SQ SCH (20:33)
[2020-09-12] MEDS: [UNRECOGNIZED DRUG - REMARK] SCH ×2 (00:01→07:40)
[2020-09-12 05:47] LABS: Hematocrit (blood only) 31.4 % (37-47); Hemoglobin 10.5 g/dL (12.0-16.0); Mean Corpuscular Hemoglobin 30.2 pg (25-34); Mean Corpuscular Hgb Conc 33.4 g/dL (32-36); Mean Corpuscular Volume 90.2 fL (80-100); Mean Platelet Volume 9.5 fL (7.4-10.4); Platelet Count 217 K/uL (130-400); RDW Coefficient of Variation 13.7 % (11.5-14.5); RDW Standard Deviation 44.6 fL (36.4-46.3); Red Blood Count 3.48 M/uL (4.2-5.4); White Blood Count 3.64 K/uL (4.8-10.8)
[2020-09-12 06:51] LABS: BUN Creatinine Ratio 5.7 (10-20); Calcium 8.4 mg/dl (8.5-10.1); Creatinine Clr Calc Pharmacy 9.3 ml/min; Est GFR (African American) 9.3; Est GFR (Non-African American) 8.1; Magnesium 2.4 mg/dl (1.8-2.4); Phosphorus 5.2 mg/dl (2.5-4.9); Potassium 4.9 mmol/L (3.5-5.1)
[2020-09-12 07:02] LABS: Beta-Hydroxybutyrate 1.49 mg/dl (0.2-2.81)
[2020-09-12] MEDS ORDERED: INSULIN HUMAN REGULAR PER UNIT 4 UNITS in SYRINGE 3.96 ML IV STA (07:07)
[2020-09-12] MEDS: ADVANCED PROBIOTIC 1250 MG CAPSULE PO SCH (07:41)
[2020-09-12] MEDS: levETIRAcetam 500 MG TAB PO SCH (07:41)
[2020-09-12] MEDS: busPIRone 5 MG TAB PO SCH (07:41)
[2020-09-12] MEDS: POLYETHYLENE (MIRALAX) 17 GM PACK PO SCH (07:42)
[2020-09-12] MEDS: LINACLOTIDE 145 MCG CAPSULE PO SCH (07:42)
[2020-09-12] MEDS: CALCIUM ACETATE 667 MG CAP/TAB PO SCH ×2 (07:42→12:20)
[2020-09-12] MEDS: SEVELAMER HCL 800 MG TABLET PO SCH ×2 (07:42→12:20)
[2020-09-12] MEDS: SUCRALFATE 1 GM/10 ML UDC PO SCH (07:42)
[2020-09-12] MEDS: HEPARIN SOD 5,000 UNIT/0.5 ML VIAL SQ SCH (07:43)
[2020-09-12] MEDS: PANTOprazole 40 MG TAB PO SCH (07:43)
--- NOTE | 2020-09-12 08:03 | Hospitalist Progress Note ---
Date of Service September 12, 2020 Assessment & Plan (1) Nausea & vomiting: Diarrhea, Abdominal pain H/O gastroparesis Pt is 50 y/o F with PMH ESRD on HD, chronic diastolic HF, CVA, CAD, COPD, GERD, gastroparesis, HTN, dyslipidemia, h/o GI bleed, seizure disorder, DM I, bipolar disorder presented to ER with c/o N/V x 6 episodes yesterday, one episode loose stools. Denies fevers In ER afebrile, vitals stable. No leukocytosis. CT ABD/PELVIS: unremarkable In ER given Zofran, Toradol, 2L NSS Monitor for additional diarrhea, stool studies ordered Continue Reglan CBC, BMP in am No episodes of emesis in the hospital. Currently no BM. No stool sample obtained for stool studies. Patient is now tolerating p.o. without difficulty. She reports right lower quadrant discomfort. She now tells me she always has discomfort there. She is supposed to follow-up with GI for gastroparesis however she does not make her appointments. She says that she wants to go for those appointments but "they do not make appointments for her". Discussed with [facility] liaison, to see about close follow-up for the patient, as she has frequent readmissions to the hospital. She is clinically much improved, she is eating, and not having any emesis or diarrhea. (2) Dysuria: Possible UTI Reports dysuria. UA: 1+bacteria, negative nitrite, negative leuk esterase Urine culture shows multiple bacteria, likely skin tolu Repeated urinary cultx, with catheterized sample, UA negative Was started on Rocephin on admission, will stop Follow-up as outpatient (3) Hyperkalemia: K: 6. Pt missed HD. No acute EKG changes HD - emergent on admission and then again on 09/10 resolved cont. to monitor (4) End-stage renal disease (ESRD): On HD on , Sat Missed dialysis 09/08/20 HD now Nephrology on board, underwent emergency HD on admission, and then again on 09/10 Continue renal meds (5) DM type 1 (diabetes mellitus, type 1): A1c: 8.1 in 07/2020 Continue basal bolus insulin (6) Seizure: H/O seizure disorder Continue Keppra (7) Constipation: Chronic constipation Continue linzess, miralax prn, lactulose prn (8) Bipolar disorder: Continue home meds DVT Prophylaxis -Heparin SQ Full Code as per discussion with pt Follows with Dr Anguiano for routine care Admission and Anticipated Discharge Date Admission Date: September 09, 2020 Subjective Patient seen in follow-up of hyperkalemia, nausea, vomiting, diarrhea and abdominal pain Currently laying in bed, in no acute distress, underwent emergent dialysis on admission and had another dialysis the next day No plan for dialysis today, patient is back on her regular schedule, next dialysis planned for Saturday Prior to admission, reported emesis, diarrhea, patient is now eating without difficulty, no vomiting while in the hospital, no BM Stool studies not obtained yet due to lack of sample No fever chills Obtained a sample with catheter, negative UA No chest pain no difficulty breathing Patient has chronic abdominal discomfort due to gastroparesis, discussed in detail to closely follow-up with PCP and gastroenterology. Also discussed with [facility] Liaison, that patient needs close follow-up due to her frequent readmissions. Blood sugar elevated as patient is now eating without any difficulty, and her insulin needs to be adjusted. As we are planning to put her back on her home insulin regimen, patient can be then discharged. Review of Systems Review of Systems: All systems reviewed & are unremarkable except as noted in HPI & below Constitutional: no fever and no chills Respiratory: no cough and no dyspnea Cardiovascular: no chest pain and no palpitations Gastrointestinal: no nausea, no vomiting and no diarrhea/loose stools Physical Exam Physical Exam: General: no distress, WDWN Head: normocephalic, atraumatic Eyes: conjunctiva non-injected, anicteric ENT: normal inspection external ears, nose, mucous membranes moist Neck: supple, trachea midline Lungs: clear, no respiratory distress, no wheezing/rhonchi/rales CV: RRR, no murmur, no pretibial edema Abd: normal BS, soft, +mild tenderness to palpation at RLQ (chronic) Ext: no cyanosis, RUE with fistula Neuro: A&O x 3, no focal deficits noted, normal affect Skin: warm, dry Results & Data Results & Data ([facility]) Vital Signs (Past 12 Hours) Vital Signs Temp Pulse Pulse Resp BP Pulse Ox 09/12/20 07:07 36.7 C 78 16 135/92 98 09/12/20 03:21 36.9 C 77 16 140/60 98 09/12/20 00:08 79 09/11/20 23:12 36.9 C 79 16 125/66 96 Laboratory Results Labs reviewed Medications Administered Current Inpatient Medications Acetaminophen (Acetaminophen 325 Mg Tab) 650 mg PO Q4H PRN PRN Reason: Pain or Fever Stop: 10/09/20 17:18 Aripiprazole (Aripiprazole 5 Mg Tab) 5 mg PO [facility] Stop: 10/09/20 20:59 Last Admin: 09/11/20 20:31 Dose: 5 mg Documented by: Atorvastatin Calcium (Atorvastatin 40 Mg Tab) 40 mg PO [facility] Stop: 10/09/20 20:59 Last Admin: 09/11/20 20:30 Dose: 40 mg Documented by: Benztropine Mesylate (Benztropine Mesylate 0.5 Mg Tab) 0.5 mg PO [facility] Stop: 10/09/20 20:59 Last Admin: 09/11/20 20:30 Dose: 0.5 mg Documented by: Buspirone HCl (Buspirone 5 Mg Tab) 10 mg PO TID [facility] Stop: 10/09/20 20:59 Last Admin: 09/12/20 07:41 Dose: 10 mg Documented by: Calcium Acetate (Calcium Acetate 667 Mg Cap/Tab) 667 mg PO TIDM [facility] Stop: 10/09/20 17:18 Last Admin: 09/12/20 07:42 Dose: 667 mg Documented by: Dextrose (Dextrose 50% 50 Ml Syringe) 25 - 50 ml IV UD PRN; Protocol PRN Reason: Hypoglycemia Protocol Stop: 10/09/20 17:18 Ergocalciferol (Ergocalciferol 50,000 Units 1250 Mcg Cap) 50,000 units PO Fr@0900 [facility] Stop: 10/09/20 17:59 Last Admin: 09/09/20 18:53 Dose: 50,000 units Documented by: Glucagon (Glucagon For Inj 1 Mg Vial) 1 mg SQ UD PRN; Protocol PRN Reason: Hypoglycemia Protocol Stop: 10/09/20 17:18 Glucose (Glucose 10 Tabs/Tube) 4 - 8 tabs PO UD PRN; Protocol PRN Reason: Hypoglycemia Protocol Stop: 10/09/20 17:18 Glucose (Glucose 40% Gel 15 Gm Tube) 15 - 30 gm PO UD PRN; Protocol PRN Reason: Hypoglycemia Protocol Stop: 10/09/20 17:18 Heparin Sodium (Porcine) (Heparin Sod 5,000 Unit/0.5 Ml Vial) 5,000 units SQ Q12 SAR[facility] Stop: 10/09/20 20:59 Last Admin: 09/12/20 07:43 Dose: 5,000 units Documented by: Hydroxyzine HCl (Hydroxyzine Hcl 25 Mg Tab) 25 mg PO TID PRN PRN Reason: Anxiety Stop: 10/09/20 17:18 Ceftriaxone Sodium 1,000 mg/ (Dextrose) 50 mls @ 100 mls/hr IV Q24H SARAH; Protocol Stop: 09/14/20 17:59 Last Infusion: 09/11/20 17:51 Dose: Infused Documented by: Insulin Aspart (Insulin Aspart 100 Units/Ml 3 Ml Pen) 0 units SC ACHS [facility] Stop: 10/09/20 17:44 Last Admin: 09/11/20 20:32 Dose: 4 units Documented by: Insulin Glargine (Insulin Glargine Solostar 100 Units/Ml 3 Ml Pen) 12 units SQ HS SAR[facility] Stop: 10/09/20 20:59 Last Admin: 09/11/20 20:33 Dose: 12 units Documented by: Lactobacillus Acidoph/Casei/Rhamnos (Advanced Probiotic 1250 Mg Capsule) 2 cap PO DAILY SAR[facility] Stop: 10/11/20 20:59 Last Admin: 09/12/20 07:41 Dose: 2 cap Documented by: Lactulose (Lactulose Syrup 10 Gm/15 Ml Btl 960 Ml) 10 gm PO BID PRN PRN Reason: Constipation Stop: 10/09/20 17:32 Lamotrigine (Lamotrigine 25 Mg Tab) 50 mg PO HS [facility] Stop: 10/09/20 20:59 Last Admin: 09/11/20 20:30 Dose: 50 mg Documented by: Levetiracetam (Levetiracetam 500 Mg Tab) 500 mg PO BID SARAH Stop: 10/09/20 20:59 Last Admin: 09/12/20 07:41 Dose: 500 mg Documented by: Linaclotide (Linaclotide 145 Mcg Capsule) 145 mcg PO QAM [facility] Stop: 10/10/20 08:59 Last Admin: 09/12/20 07:42 Dose: 145 mcg Documented by: Melatonin (Melatonin 3 Mg Tab) 3 mg PO [facility] Stop: 10/09/20 20:59 Last Admin: 09/11/20 20:29 Dose: 3 mg Documented by: Metoclopramide HCl (Metoclopramide Hcl 5 Mg Tablet) 5 mg PO TID PRN PRN Reason: Nausea Stop: 10/09/20 17:18 Last Admin: 09/09/20 20:12 Dose: 5 mg Documented by: Miscellaneous (Carbohydrates For Hypoglycemia ) 15 - 30 gm PO UD PRN PRN Reason: Hypoglycemia Protocol Stop: 10/09/20 17:18 Last Admin: 09/11/20 16:35 Dose: 15 gm Documented by: Miscellaneous (*Lubiprostone*Order Awaiting Action) 1 ea N/A [facility] Stop: 10/10/20 00:00 Last Admin: 09/12/20 07:40 Dose: Not Given Documented by: Miscellaneous (*Trimethobenzamide*Order Awaiting Action) 1 ea N/A QS [facility] Stop: 10/10/20 00:00 Last Admin: 09/12/20 07:40 Dose: Not Given Documented by: Ondansetron HCl (Ondansetron Inj 2 Mg/Ml 2 Ml Vial) 4 mg IV Q6H PRN PRN Reason: Nausea Stop: 10/09/20 17:18 Oxycodone/Acetaminophen (Oxycodone/Acetaminophen 5mg/325mg Tab) 1 tab PO Q4H PRN PRN Reason: Pain Stop: 09/23/20 18:45 Last Admin: 09/11/20 20:39 Dose: 1 tab Documented by: Pantoprazole Sodium (Pantoprazole 40 Mg Tab) [facility] Stop: 10/10/20 08:59 Last Admin: 09/12/20 07:43 Dose: 40 mg Documented by: Polyethylene Glycol (Polyethylene (Miralax) 17 Gm Pack) 17 gm PO DAILY PRN PRN Reason: Constipation Stop: 10/09/20 17:18 Polyethylene Glycol (Polyethylene (Miralax) 17 Gm Pack) 17 gm PO QAM [facility] Stop: 10/10/20 08:59 Last Admin: 09/12/20 07:42 Dose: 17 gm Documented by: Sertraline HCl (Sertraline Hcl 50 Mg Tablet) 75 mg PO [facility] Stop: 10/09/20 20:59 Last Admin: 09/11/20 20:27 Dose: 75 mg Documented by: Sevelamer HCl (Sevelamer Hcl 800 Mg Tablet) 800 mg PO TIDM [facility] Stop: 10/09/20 17:39 Last Admin: 09/12/20 07:42 Dose: 800 mg Documented by: Sucralfate (Sucralfate 1 Gm/10 Ml Udc) 1 gm PO BID [facility] Stop: 10/09/20 20:59 Last Admin: 09/12/20 07:42 Dose: 1 gm Documented by: Temazepam (Temazepam 15 Mg Capsule) 15 mg PO HS SARAH Stop: 10/09/20 20:59 Last Admin: 09/11/20 20:27 Dose: 15 mg Documented by: Trazodone HCl (Trazodone Hcl 50 Mg Tab) 75 mg PO HS PRN PRN Reason: Sleep Stop: 10/09/20 17:18 (1) Nausea & vomiting Vomiting Intractability: non-intractable Vomiting type: unspecified Qualified Code(s): R11.2 - Nausea with vomiting, unspecified (2) DM type 1 (diabetes mellitus, type 1) Diabetes mellitus complication status: with other specified complication Qualified Code(s): E10.69 - Type 1 diabetes mellitus with other specified complication (3) Constipation Constipation type: unspecified constipation type Qualified Code(s): K59.00 - Constipation, unspecified
[2020-09-12] MEDS ORDERED: PHARMACY GLYCEMIC MGMT CONSULT PRN (08:13)
[2020-09-12] MEDS: INSULIN ASPART 100 UNITS/ML 3 ML PEN SC SCH ×2 (08:54→12:22)
[2020-09-12] MEDS: oxyCODONE/ACETAMINOPHEN 5mg/325mg TAB PO PRN (09:35)
--- NOTE | 2020-09-12 10:27 | Discharge Summary ---
Date of Service September 12, 2020 Admission HPI Per Admitting Provider Pt is 50 y/o F with PMH ESRD on HD, chronic diastolic HF, CVA, CAD, COPD, GERD, gastroparesis, HTN, dyslipidemia, h/o GI bleed, seizure disorder, DM I, bipolar disorder presented to ER with c/o N/V. Pt states yesterday started with nausea, and 6 episodes of vomiting. Reports one episode of loose stools. Usually has chronic constipation and is on Linzess. C/O right lower abdominal pain described as stabbing type pain. Also c/o dysuria and dark color urine. Usually urinates once daily and did not urinate today. Reports decreased oral intake since yesterday. [place] chilled yesterday. C/O lightheaded. Denies ill contacts, recent travel, eating undercooked foods. states had 2 doses Covid 19 vaccine. Denies fever, diaphoresis, hematemesis, hematochezia, melena, mucous stools, [place], syncope, vision changes, neck pain, CP, SOB, orthopnea, palpitations, cough, sore throat, choking, otalgia, rhinorrhea, paresthesias, weakness, extremity weakness, extremity edema, rashes, hematuria. Denies recent antibiotic use Admission Exam Per Admitting Provider General: no distress, WDWN Head: normocephalic, atraumatic Eyes: conjunctiva non-injected, anicteric ENT: normal inspection external ears, nose, mucous membranes moist Neck: supple, trachea midline Lungs: clear, no respiratory distress, no wheezing/rhonchi/rales CV: RRR, no murmur, no pretibial edema Abd: normal BS, soft, +tenderness to palpation entire abdomen Ext: no cyanosis, RUE with fistula Neuro: A&O x 3, no focal deficits noted, normal affect Skin: warm, dry Principal Diagnosis Hyperkalemia due to missed dialysis Nausea, vomiting, likely secondary to gastroparesis Discharge Exam General: no distress, WDWN Head: normocephalic, atraumatic Eyes: conjunctiva non-injected, anicteric ENT: normal inspection external ears, nose, mucous membranes moist Neck: supple, trachea midline Lungs: clear, no respiratory distress, no wheezing/rhonchi/rales CV: RRR, no murmur, no pretibial edema Abd: normal BS, soft, +mild tenderness to palpation at RLQ (chronic) Ext: no cyanosis, RUE with fistula Neuro: A&O x 3, no focal deficits noted, normal affect Skin: warm, dry Discharge Data Allergies Allergy/AdvReac Type Severity Reaction Status Date / Time Fish Containing Products Allergy Mild Hives Verified 09/09/20 14:02 latex Allergy Mild hives Verified 09/09/20 14:02 shellfish derived Allergy Mild Hives Verified 09/09/20 14:02 Consultations 09/09/20 17:19 Consult Nephrology Routine Ordered Studies 09/09/20 12:39 CT abd pelvis wo con Stat IMPRESSION: There are no acute infectious or inflammatory findings in the abdomen or pelvis. Hospital Course (1) Nausea & vomiting: Diarrhea, Abdominal pain H/O gastroparesis Pt is 50 y/o F with PMH ESRD on HD, chronic diastolic HF, CVA, CAD, COPD, GERD, gastroparesis, HTN, dyslipidemia, h/o GI bleed, seizure disorder, DM I, bipolar disorder presented to ER with c/o N/V x 6 episodes yesterday, one episode loose stools. Denies fevers In ER afebrile, vitals stable. No leukocytosis. CT ABD/PELVIS: unremarkable In ER given Zofran, Toradol, 2L NSS Monitor for additional diarrhea, stool studies ordered Continue Reglan CBC, BMP in am No episodes of emesis in the hospital. Currently no BM. No stool sample obtained for stool studies. Patient is now tolerating p.o. without difficulty. She reports right lower quadrant discomfort. She now tells me she always has discomfort there. She is supposed to follow-up with GI for gastroparesis however she does not make her appointments. She says that she wants to go for those appointments but "they do not make appointments for her". Discussed with [facility] liaison, to see about close follow-up for the patient, as she has frequent readmissions to the hospital. She is clinically much improved, she is eating, and not having any emesis or diarrhea. (2) Dysuria: Possible UTI Reports dysuria. UA: 1+bacteria, negative nitrite, negative leuk esterase Urine culture shows multiple bacteria, likely skin tolu Repeated urinary cultx, with catheterized sample, UA negative Was started on Rocephin on admission, will stop Follow-up as outpatient (3) Hyperkalemia: K: 6. Pt missed HD. No acute EKG changes HD - emergent on admission and then again on 09/10 resolved cont. to monitor (4) End-stage renal disease (ESRD): On HD on , Sat Missed dialysis 09/08/20 HD now Nephrology on board, underwent emergency HD on admission, and then again on 09/10 Continue renal meds (5) DM type 1 (diabetes mellitus, type 1): A1c: 8.1 in 07/2020 Continue basal bolus insulin (6) Seizure: H/O seizure disorder Continue Keppra (7) Constipation: Chronic constipation Continue linzess, miralax prn, lactulose prn (8) Bipolar disorder: Continue home meds DVT Prophylaxis -Heparin SQ Full Code as per discussion with pt Follows with Dr Anguiano for routine care Total Time Total Time Spent Total Time Spent (In Minutes): 35 Total Time Includes: Examination of the Patient, Discharge Planning, Medication Reconciliation and Communication With Other Providers Discharge Plan Discharge Items Patient Disposition: Home - Self-Care Reason For Visit: N/V, MISSED HD Discharge Diagnosis: Hyperkalemia due to missed dialysis Nausea, vomiting, likely secondary to gastroparesis Activity: Per Instructions section Non-emergency contact: Primary Care Provider and Specialist Call non-emergency contact if: you have any medication questions and your symptoms worsen Follow-up/Referrals: Mitchel Santo MD [Primary Care Provider] - (Date & Time 09/19/2020 11:20 AM Provider Pardeep Anguiano MD [facility] ) Diet: Dialysis Renal Addtl Attending Provider Instructions: Follow-up with your primary care doctor, the appointment was scheduled for you for September 19. Recommend taking probiotics on daily basis, given that you have been on antibiotics on and off during your frequent hospital stays. You should follow-up with gastroenterology given your history of gastroparesis, as previously discussed. Pending Studies at Discharge: No Stand-Alone Forms: [employer], Smoking Cessation Medications and DC Order Prescriptions: New Advanced Probiotic 625 mg (10 billion cell) Capsule 2 cap PO DAILY Qty: 20 RF: 0 Continued aripiprazole [Abilify] 5 mg tablet 5 mg PO HS RF: 0 atorvastatin [Lipitor] 40 mg tablet 40 mg PO HS RF: 0 trazodone 150 mg tablet 75 mg PO HS PRN (Reason: Sleep) RF: 0 temazepam [Restoril] 15 mg capsule 15 mg PO HS RF: 0 hydroxyzine HCl 25 mg tablet 25 mg PO TID PRN (Reason: Anxiety) RF: 0 trimethobenzamide 300 mg Capsule 300 mg PO TID PRN (Reason: NAUSEA/VOMITING) RF: 0 levetiracetam [Keppra] 500 mg tablet 500 mg PO BID RF: 0 melatonin 3 mg Tablet 3 mg PO HS RF: 0 prochlorperazine maleate 5 mg Tablet 5 mg PO QID PRN (Reason: Nausea) RF: 0 lamotrigine [Lamictal] 25 mg tablet 50 mg PO HS RF: 0 ergocalciferol (vitamin D2) [Vitamin D2] 1,250 mcg (50,000 unit) Capsule 1,250 mcg PO FR RF: 0 sertraline [Zoloft] 50 mg tablet 75 mg PO HS RF: 0 insulin lispro [Admelog SoloStar U-100 Insulin] 100 unit/mL Insulin Pen 7 unit SUBCUT TIDM RF: 0 sevelamer carbonate 800 mg Tablet 800 mg PO TIDM RF: 0 benztropine 0.5 mg tablet 0.5 mg PO HS RF: 0 lactulose 10 gram/15 mL Solution 10 g PO BID PRN (Reason: Constipation) Qty: 200 RF: 0 Lantus Solostar U-100 Insulin 100 unit/mL (3 mL) insulin pen 12 unit subcut HS Qty: 15 RF: 0 polyethylene glycol 3350 [Miralax] 17 gram powder in packet 17 g PO QAM RF: 0 calcium acetate(phosphat bind) 667 mg capsule 667 mg PO TIDM RF: 0 lubiprostone 24 mcg Capsule 24 mcg PO BIDM RF: 0 buspirone 10 mg tablet 10 mg PO TID RF: 0 metoclopramide HCl 5 mg tablet 5 mg PO TID PRN (Reason: Nausea) RF: 0 pantoprazole 40 mg Tablet,Delayed Release (Dr/Ec) 40 mg PO QAM Qty: 30 RF: 0 Linzess 145 mcg Capsule 145 mcg PO QAM Qty: 30 RF: 1 sucralfate 100 mg/mL Suspension 10 ml PO BID 30 Days Qty: 600 RF: 1 Discharge Orders: Discharge Order (Routine); Ordered 09/12/20 Ordered By: Sujit Musa Admission Data Admit Date/Time: 09/09/20 15:12 Attending Provider: Sujit Musa Admit Provider: Dawson Mohamud Primary Care Provider: Mitchel Santo Other Providers: Neil Monroe ; Dawson Mohamud
[2020-09-12] MEDS ORDERED: [UNRECOGNIZED DRUG - OTHER] SQ SCH (12:00)
[2020-09-12] MEDS ORDERED: INSU SQ SCH (12:00)
[2020-09-12] MEDS ORDERED: INSULIN LISPRO 100 UNIT/ML SQ SCH (12:00)
== END 2020-09-12 13:45 | disposition home or self-care (01) | DRG 640 ==
LOC: ED 11:04 → 2N 15:00 → SUATTDRO 15:12

== ENCOUNTER 2020-09-30 19:41 | Inpatient (IN) ==
[2020-09-30] MEDS ORDERED: GLUCOSE 10 TABS/TUBE PO ONE (20:02)
[2020-09-30] MEDS ORDERED: DEXTROSE 50% 50 ML SYRINGE IV ONE ×3 (20:04→22:07)
[2020-09-30] MEDS ORDERED: ONDANSETRON INJ 2 MG/ML 2 ML VIAL IV STA (20:07)
[2020-09-30 20:29] LABS: Hematocrit (blood only) 31.6 % (37-47); Hemoglobin 10.8 g/dL (12.0-16.0); Mean Corpuscular Hemoglobin 30.1 pg (25-34); Mean Corpuscular Hgb Conc 34.2 g/dL (32-36); Mean Platelet Volume 9.8 fL (7.4-10.4); Platelet Count 338 K/uL (130-400); RDW Coefficient of Variation 13.8 % (11.5-14.5); RDW Standard Deviation 44.9 fL (36.4-46.3); Red Blood Count 3.59 M/uL (4.2-5.4); White Blood Count 8.13 K/uL (4.8-10.8)
[2020-09-30 20:33] LABS: iSTAT Creatinine 4.6 mg/dl (0.6-1.3); iSTAT Hemoglobin 10.2 g/dl (12.0-16.0); iSTAT Ionized Calcium 1.24 mmol/l (1.12-1.32)
[2020-09-30 20:59] LABS: Alanine Aminotransferase 17 U/L (12-78); Albumin Level 3.7 gm/dl (3.4-5.0); Alkaline Phosphatase 69 U/L (45-117); Aspartate Aminotransferase 10 U/L (15-37); BUN Creatinine Ratio 6.5 (10-20); Bilirubin Direct < 0.1 mg/dl (0-0.2); Bilirubin,Total 0.4 mg/dl (0.2-1); Blood Urea Nitrogen 27 mg/dl (7-18); Calcium 9.5 mg/dl (8.5-10.1); Carbon Dioxide 30 mmol/L (21-32); Chloride 103 mmol/L (98-107); Est GFR (African American) 13.6; Est GFR (Non-African American) 11.7; Glucose 22 mg/dl (70-99); Lipase 49 U/L (73-393); Magnesium 2.3 mg/dl (1.8-2.4); Potassium 2.9 mmol/L (3.5-5.1); Sodium 139 mmol/L (136-145); Total Protein 7.1 gm/dl (6.4-8.2)
[2020-09-30 21:53] LABS: ALC (manual) 3.96 K/uL (1.2-3.4); ANC (manual) 3.33 K/uL (1.4-6.5); Eosinophils # (manual) 0.42 K/uL (0-0.5); Eosinophils % (manual) 5.2 %; Lymphocytes # (manual) 1.76 K/uL (1.2-3.4); Lymphocytes % (manual) 21.7 %; Monocytes # (manual) 0.42 K/uL (0.11-0.59); Monocytes % (manual) 5.2 %; Neutrophils # (manual) 3.33 K/uL (1.4-6.5); Neutrophils % (manual) 40.9 %; RBC Morphology Unremarkable
[2020-09-30] MEDS ORDERED: hydrALAZINE HCL 20 MG/ML VIAL IV STA (22:32)
[2020-09-30 22:36] LABS: Influenza A virus by PCR Negative (Neg); Influenza B virus by PCR Negative (Neg); RSV by PCR Negative (Neg); SARS CoV2 RNA(COVID-19) InHosp NEGATIVE (Negative)
[2020-09-30] MEDS ORDERED: LORazepam 1 MG/2 ML VIAL IV PRN (22:39)
--- NOTE | 2020-09-30 22:44 | Emergency Department Note ---
History of Present Illness General Chief complaint: Abdominal Pain Stated complaint: ABDOMINAL PAIN, VOMITING Time Seen by Provider: 09/30/20 20:01 Source: family () History of Present Illness Provider complaint: Vomiting Onset (ago): day(s) 1 Maximum Pain Intensity: 8 Associated symptoms: + nausea/vomiting 50-year-old female end-stage renal disease Saturday presents emergency department for vomiting. is providing the history. states patient has been vomiting for the last 2 days. No hematemesis or coffee- ground emesis. No bilious vomiting. Patient did get a full dose of dialysis yesterday. Patient is a diabetic and has a history of gastroparesis. Home Medications Medication Instructions Recorded Confirmed Type aripiprazole [Abilify] 5 mg PO HS 05/20/19 09/30/20 History levetiracetam [Keppra] 500 mg PO BID 06/20/19 09/30/20 History atorvastatin [Lipitor] 40 mg PO HS 08/01/19 09/30/20 History melatonin 3 mg PO HS 01/29/20 09/30/20 History hydroxyzine HCl 25 mg PO TID PRN 02/20/20 09/30/20 History temazepam [Restoril] 15 mg PO HS 02/20/20 09/30/20 History trazodone 75 mg PO HS PRN 02/20/20 09/30/20 History trimethobenzamide 300 mg PO TID PRN 03/21/20 09/30/20 History benztropine 0.5 mg PO HS 07/27/20 09/30/20 History ergocalciferol (vitamin D2) 50,000 unit PO FR 07/27/20 09/30/20 History [Vitamin D2] insulin lispro [Admelog SoloStar 7 unit SUBCUT TIDM 07/27/20 09/30/20 History U-100 Insulin] lamotrigine [Lamictal] 50 mg PO HS 07/27/20 09/30/20 History prochlorperazine maleate 5 mg PO QID PRN 07/27/20 09/30/20 History sertraline [Zoloft] 75 mg PO HS 07/27/20 09/30/20 History sevelamer carbonate 800 mg PO TIDM 07/27/20 09/30/20 History Lantus Solostar U-100 Insulin 12 unit SUBCUT HS #15 ml 07/31/20 09/30/20 Rx lactulose 10 g PO BID PRN #200 ml 07/31/20 09/30/20 Rx buspirone 10 mg PO TID 08/16/20 09/30/20 History metoclopramide HCl 5 mg PO TID PRN 08/16/20 09/30/20 History Linzess 145 mcg PO QAM #30 cap 08/21/20 09/30/20 Rx pantoprazole 40 mg PO QAM #30 tab 08/21/20 09/30/20 Rx sucralfate 10 ml PO BID 30 Days #600 ml 08/21/20 09/30/20 Rx calcium acetate(phosphat bind) 667 mg PO TIDM 09/09/20 09/30/20 History lubiprostone 24 mcg PO BIDM 09/09/20 09/30/20 History polyethylene glycol 3350 [Miralax] 17 g PO QAM 09/09/20 09/30/20 History L.acidop,valery,lac,rha-B.lac,tim 2 cap PO QAM 09/25/20 09/30/20 History [Advanced Probiotic] Allergies Allergy/AdvReac Type Severity Reaction Status Date / Time Fish Containing Products Allergy Mild Hives Verified 09/25/20 17:35 latex Allergy Mild hives Verified 09/25/20 17:35 shellfish derived Allergy Mild Hives Verified 09/25/20 17:35 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 history of CVA in 2018 Residual R sided weakness Depression Diabetic gastroparesis Diastolic heart failure DM type 1 (diabetes mellitus, type 1) ESRD (end stage renal disease) on dialysis GERD (gastroesophageal reflux disease) History of GI bleed Hyperlipidemia Hypertension Seizure Surgical History Hx of appendectomy Hx of cholecystectomy Hx of tubal ligation Family History Mother Coronary heart disease Hypertension Father Coronary heart disease Social History Smoking Status: Former smoker Tobacco Type: Cigarettes Second Hand Exposure: No; Hx Alcohol Use: No Hx Substance Use: No Preferred Language: Turkmen Communication Ability: Effective Director Operating Room Required: No Beliefs That Will Affect Care: None marital status: Life Partner Current Living Situation: Other current occupational status: unemployed Feels Safe at Home: Yes Assistive Devices: None Review of Systems Unobtainable due to reduced consciousness Physical Exam Vital Signs Vital Signs - 24 hr 09/30/20 19:43 09/30/20 20:14 09/30/20 20:36 Temperature 37.0 C Temperature Source Temporal Artery Scan Pulse Rate 103 H 83 83 Pulse Rate [Apical] Pulse Rate from SpO2 Sensor Pulse Rhythm [Apical] Pulse Strength [Apical] Respiratory Rate 18 16 14 Respiratory Effort / Characteristics Non-Labored Spontaneous Respiratory Depth Normal Respiratory Pattern Regular Blood Pressure 147/71 H 166/72 H Blood Pressure [Right Thigh] Blood Pressure Mean 96 103 Blood Pressure Mean [Right Thigh] Blood Pressure Position Sitting Blood Pressure Position [Right Thigh] Pulse Oximetry 99 Oxygen Delivery Method Room Air Sepsis Recent Fever Within 48 Hours No Sepsis New/Unexplained Change in Mental Status No Sepsis Action Taken by Nursing No Action Required 09/30/20 20:45 09/30/20 21:00 09/30/20 21:03 Temperature Temperature Source Pulse Rate 80 79 86 Pulse Rate [Apical] Pulse Rate from SpO2 Sensor Pulse Rhythm [Apical] Pulse Strength [Apical] Respiratory Rate 18 14 18 Respiratory Effort / Characteristics Respiratory Depth Respiratory Pattern Blood Pressure 231/88 H 217/90 H 217/91 H Blood Pressure [Right Thigh] Blood Pressure Mean 135 132 133 Blood Pressure Mean [Right Thigh] Blood Pressure Position Blood Pressure Position [Right Thigh] Pulse Oximetry Oxygen Delivery Method Sepsis Recent Fever Within 48 Hours Sepsis New/Unexplained Change in Mental Status Sepsis Action Taken by Nursing 09/30/20 21:30 09/30/20 22:31 09/30/20 22:32 Temperature Temperature Source Pulse Rate 81 82 83 Pulse Rate [Apical] Pulse Rate from SpO2 Sensor 81 83 Pulse Rhythm [Apical] Pulse Strength [Apical] Respiratory Rate 17 19 11 L Respiratory Effort / Characteristics Respiratory Depth Respiratory Pattern Blood Pressure 222/98 H 196/91 H Blood Pressure [Right Thigh] Blood Pressure Mean 139 126 Blood Pressure Mean [Right Thigh] Blood Pressure Position Blood Pressure Position [Right Thigh] Pulse Oximetry 98 99 Oxygen Delivery Method Room Air Sepsis Recent Fever Within 48 Hours Sepsis New/Unexplained Change in Mental Status Sepsis Action Taken by Nursing 09/30/20 22:43 09/30/20 22:44 Temperature Temperature Source Pulse Rate Pulse Rate [Apical] 80 Pulse Rate from SpO2 Sensor Pulse Rhythm [Apical] Regular Pulse Strength [Apical] Normal Respiratory Rate 20 Respiratory Effort / Characteristics Non-Labored Accessory Muscle Use Respiratory Depth Normal Respiratory Pattern Blood Pressure Blood Pressure [Right Thigh] 196/91 H Blood Pressure Mean Blood Pressure Mean [Right Thigh] 126 Blood Pressure Position Blood Pressure Position [Right Thigh] Lying Pulse Oximetry 96 99 Oxygen Delivery Method Room Air Room Air Sepsis Recent Fever Within 48 Hours Sepsis New/Unexplained Change in Mental Status Sepsis Action Taken by Nursing Physical Exam GENERAL: Patient appears distressed HENT: Exam performed. -Head: Normocephalic and atraumatic. -Right Ear: External ear normal. No mastoid tenderness. -Left Ear: External ear normal. No mastoid tenderness. -Mouth/Throat: The oropharynx is clear and moist. No trismus in the jaw. No dental abscesses or uvula swelling. No oropharyngeal exudate or tonsillar abscesses. EYES: Conjunctivae and EOM are normal. Pupils are equal, round, and reactive to light. Right eye exhibits no discharge. Left eye exhibits no discharge. No scleral icterus. NECK: Normal range of motion. Neck supple. No JVD present. No spinous process tenderness present. No carotid bruit present. No rigidity. No tracheal deviation and normal range of motion present. No Brudzinski's sign and no Kernig's sign noted. CV: Normal rate, regular rhythm, normal heart sounds and intact distal pulses. There is no peripheral edema. Palpable radial pulses bue. PULM/CHEST: Effort normal and breath sounds normal. No respiratory distress. No stridor. She has no wheezes. She has no rales. -Chest Wall: She exhibits no tenderness. ABD: The abdomen is soft. NEURO: GCS eye subscore is 3. GCS verbal subscore is 3. GCS motor subscore is 5. Course Course 2000: The patient was evaluated in room B. A complete history and physical exam was performed Cardiac monitoring: An order was placed for continuous cardiac monitoring. The monitor shows a rate of 80 with sinus rhythm Patient was brought back to the room with a lower than expected GCS. Accu-Chek showed blood glucose of 28. 1 amp of D50 was ordered for the patient. 2029: Status post 1 amp of D50 patient's glucose is 127. She is alert and oriented. She states she did not take more of her insulin than she was prescribed and the patient states that she is not on any sulfonylurea medications for her diabetes. 2117: Called to bedside by nursing. Per the nursing staff the patient's called out and stated the patient was having a grand mal seizure. He reports the last approximately 30 seconds. On arrival in the room patient is not seizing and does not appear postictal. There is no evidence of tongue bite. Patient's repeat glucose is 75. Again patient denies taking any excessive insulin or sulfonylurea medications. Will obtain CT of the head. 1 amp of D50 again ordered for the patient. 2244: CT of the head within normal limits. Labs show potassium 2.9. Creatinine 4.11. Acute abdominal series within normal limits. No air-fluid levels. No evidence of perforation. CT of the head within normal limits. EMR reviewed. Patient has had multiple admissions for gastroparesis/nausea vomiting. She has a history of not following up with GI for her gastroparesis appointments. She has a history of noncompliance with her hemodialysis. Patient is on Keppra for the seizures. This month alone the patient has already had 2 CTs of her abdomen. In the first 4 months of this year at this facility alone the patient has had 7 CTs including 5 CTs of the abdomen, all of which have been normal limits. It is thought that the patient's seizure could be due to hypoglycemia however it is unlikely that it resolved on its own without any antiepileptics or glucose. There is also the chance that the patient is having pseudoseizures. C-peptide has been ordered for the patient to see if there is any chance of her given herself too much insulin which would cause her hypoglyce artem. Discussed case with Dr. Altamirano [facility] hospitalist who will evaluate the patient. Administered Medications Discontinued Medications Dextrose (Dextrose 50% 50 Ml Syringe) 50 ml IV NOW ONE Stop: 09/30/20 20:05 Last Admin: 09/30/20 20:12 Dose: 50 ml Documented by: [id number] Dextrose (Dextrose 50% 50 Ml Syringe) Confirm Administered Dose 50 ml IV .STK- MED ONE Stop: 09/30/20 20:07 Last Admin: 09/30/20 20:24 Dose: Not Given Documented by: [id number] Dextrose (Dextrose 50% 50 Ml Syringe) 50 ml IV NOW ONE Stop: 09/30/20 22:08 Last Admin: 09/30/20 21:30 Dose: 50 ml Documented by: [id number] Glucose (Glucose 10 Tabs/Tube) Confirm Administered Dose 10 tabs PO .STK-MED ONE Stop: 09/30/20 20:03 Last Admin: 09/30/20 20:13 Dose: 10 tabs Documented by: [id number] Ondansetron HCl (Ondansetron Inj 2 Mg/Ml 2 Ml Vial) 4 mg IV NOW STA Stop: 09/30/20 20:08 Last Admin: 09/30/20 20:15 Dose: 4 mg Documented by: [id number] Critical Care Time Critical Care Time: Yes Total Critical Care Time: 52 I have personally spent greater than 52 minutes of critical care time in the direct management of this patient. This includes bedside care, interpretation of diagnostic studies, and testing, discussion with consultants, patient, and family members, and other required patient management activities. This 52 minutes is in excess of all separately billable procedures. Medical Decision Making Laboratory Data Result diagrams: 09/30/20 20:14 09/30/20 20:14 Lab Results 09/30/20 09/30/20 09/30/20 Range/Units 19:58 20:14 20:14 WBC 8.13 (4.8-10.8) K/uL RBC 3.59 L (4.2-5.4) M/uL Hgb 10.8 L (12.0-16.0) g/dL POC Hgb (12.0-16.0) g/dl Hct 31.6 L (37-47) % POC Hct (37-47) % MCV 88.0 (80-100) fL MCH 30.1 (25-34) pg MCHC 34.2 (32-36) g/dL RDW Std Deviation 44.9 (36.4-46.3) fL RDW Coeff of Lebron 13.8 (11.5-14.5) % Plt Count 338 (130-400) K/uL MPV 9.8 (7.4-10.4) fL Neutrophils % (Manual) 40.9 % Lymphocytes % (Manual) 21.7 % Reactive Lymphs % (Man) 27.0 % Monocytes % (Manual) 5.2 % Eosinophils % (Manual) 5.2 % Neutrophils # (Manual) 3.33 (1.4-6.5) K/uL Total Absolute Neuts 3.33 (1.4-6.5) K/uL Lymphocytes # (Manual) 1.76 (1.2-3.4) K/uL Reactive Lymphs # 2.20 K/uL Total Abs Lymphocytes 3.96 H (1.2-3.4) K/uL Monocytes # (Manual) 0.42 (0.11-0.59) K/uL Eosinophils # (Manual) 0.42 (0-0.5) K/uL RBC Morphology Unremarkable POC Sodium (135-144) mmol/L Sodium 139 (136-145) mmol/L POC Potassium (3.3-5.0) mmol/L Potassium 2.9 L (3.5-5.1) mmol/L POC Chloride (101-112) mmol/L Chloride 103 (98-107) mmol/L Carbon Dioxide 30 (21-32) mmol/L POC Total CO2 (24-31) mmol/L Anion Gap 5.0 (3-11) POC Anion Gap (16-25) mmol/L POC BUN (7-18) mg/dl BUN 27 H (7-18) mg/dl Creatinine 4.11 H (0.6-1.2) mg/dl POC Creatinine (0.6-1.3) mg/dl Est Cr Clr Drug Dosing Not Reportable Est GFR ( Amer) 13.6 Est GFR (Non-Af Amer) 11.7 BUN/Creatinine Ratio 6.5 L (10-20) Glucose 22 L* (70-99) mg/dl POC Glucose 28 L* (70-99) mg/dl POC Glucose (other) (70-99) mg/dl Calcium 9.5 (8.5-10.1) mg/dl POC Ioniz Calcium Brittany (1.12-1.32) mmol/l Magnesium 2.3 (1.8-2.4) mg/dl Total Bilirubin 0.4 (0.2-1) mg/dl Direct Bilirubin < 0.1 (0-0.2) mg/dl AST 10 L (15-37) U/L ALT 17 (12-78) U/L Alkaline Phosphatase 69 (45-117) U/L Total Protein 7.1 (6.4-8.2) gm/dl Albumin 3.7 (3.4-5.0) gm/dl Lipase 49 L (73-393) U/L COVID-19 Eval Order SARS-CoV-2 (PCR) (Negative) Influenza Type A (PCR) (Neg) Influenza Type B (PCR) (Neg) RSV (RT-PCR) (Neg) 09/30/20 09/30/20 09/30/20 Range/Units 20:20 20:26 21:18 WBC (4.8-10.8) K/uL RBC (4.2-5.4) M/uL Hgb (12.0-16.0) g/dL POC Hgb 10.2 L (12.0-16.0) g/dl Hct (37-47) % POC Hct 30 L (37-47) % MCV (80-100) fL MCH (25-34) pg MCHC (32-36) g/dL RDW Std Deviation (36.4-46.3) fL RDW Coeff of Lebron (11.5-14.5) % Plt Count (130-400) K/uL MPV (7.4-10.4) fL Neutrophils % (Manual) % Lymphocytes % (Manual) % Reactive Lymphs % (Man) % Monocytes % (Manual) % Eosinophils % (Manual) % Neutrophils # (Manual) (1.4-6.5) K/uL Total Absolute Neuts (1.4-6.5) K/uL Lymphocytes # (Manual) (1.2-3.4) K/uL Reactive Lymphs # K/uL Total Abs Lymphocytes (1.2-3.4) K/uL Monocytes # (Manual) (0.11-0.59) K/uL Eosinophils # (Manual) (0-0.5) K/uL RBC Morphology POC Sodium 138 (135-144) mmol/L Sodium (136-145) mmol/L POC Potassium 3.0 L (3.3-5.0) mmol/L Potassium (3.5-5.1) mmol/L POC Chloride 99 L (101-112) mmol/L Chloride (98-107) mmol/L Carbon Dioxide (21-32) mmol/L POC Total CO2 30 (24-31) mmol/L Anion Gap (3-11) POC Anion Gap 14.0 L (16-25) mmol/L POC BUN 25 H (7-18) mg/dl BUN (7-18) mg/dl Creatinine (0.6-1.2) mg/dl POC Creatinine 4.6 H* (0.6-1.3) mg/dl Est Cr Clr Drug Dosing Est GFR ( Amer) Est GFR (Non-Af Amer) BUN/Creatinine Ratio (10-20) Glucose (70-99) mg/dl POC Glucose 127 H 75 (70-99) mg/dl POC Glucose (other) 21 L* (70-99) mg/dl Calcium (8.5-10.1) mg/dl POC Ioniz Calcium Brittany 1.24 (1.12-1.32) mmol/l Magnesium (1.8-2.4) mg/dl Total Bilirubin (0.2-1) mg/dl Direct Bilirubin (0-0.2) mg/dl AST (15-37) U/L ALT (12-78) U/L Alkaline Phosphatase (45-117) U/L Total Protein (6.4-8.2) gm/dl Albumin (3.4-5.0) gm/dl Lipase (73-393) U/L COVID-19 Eval Order SARS-CoV-2 (PCR) (Negative) Influenza Type A (PCR) (Neg) Influenza Type B (PCR) (Neg) RSV (RT-PCR) (Neg) 09/30/20 09/30/20 09/30/20 Range/Units 21:45 21:45 22:33 WBC (4.8-10.8) K/uL RBC (4.2-5.4) M/uL Hgb (12.0-16.0) g/dL POC Hgb (12.0-16.0) g/dl Hct (37-47) % POC Hct (37-47) % MCV (80-100) fL MCH (25-34) pg MCHC (32-36) g/dL RDW Std Deviation (36.4-46.3) fL RDW Coeff of Lebron (11.5-14.5) % Plt Count (130-400) K/uL MPV (7.4-10.4) fL Neutrophils % (Manual) % Lymphocytes % (Manual) % Reactive Lymphs % (Man) % Monocytes % (Manual) % Eosinophils % (Manual) % Neutrophils # (Manual) (1.4-6.5) K/uL Total Absolute Neuts (1.4-6.5) K/uL Lymphocytes # (Manual) (1.2-3.4) K/uL Reactive Lymphs # K/uL Total Abs Lymphocytes (1.2-3.4) K/uL Monocytes # (Manual) (0.11-0.59) K/uL Eosinophils # (Manual) (0-0.5) K/uL RBC Morphology POC Sodium (135-144) mmol/L Sodium (136-145) mmol/L POC Potassium (3.3-5.0) mmol/L Potassium (3.5-5.1) mmol/L POC Chloride (101-112) mmol/L Chloride (98-107) mmol/L Carbon Dioxide (21-32) mmol/L POC Total CO2 (24-31) mmol/L Anion Gap (3-11) POC Anion Gap (16-25) mmol/L POC BUN (7-18) mg/dl BUN (7-18) mg/dl Creatinine (0.6-1.2) mg/dl POC Creatinine (0.6-1.3) mg/dl Est Cr Clr Drug Dosing Est GFR ( Amer) Est GFR (Non-Af Amer) BUN/Creatinine Ratio (10-20) Glucose (70-99) mg/dl POC Glucose 124 H (70-99) mg/dl POC Glucose (other) (70-99) mg/dl Calcium (8.5-10.1) mg/dl POC Ioniz Calcium Brittany (1.12-1.32) mmol/l Magnesium (1.8-2.4) mg/dl Total Bilirubin (0.2-1) mg/dl Direct Bilirubin (0-0.2) mg/dl AST (15-37) U/L ALT (12-78) U/L Alkaline Phosphatase (45-117) U/L Total Protein (6.4-8.2) gm/dl Albumin (3.4-5.0) gm/dl Lipase (73-393) U/L COVID-19 Eval Order CovFluRsv at [facility] SARS-CoV-2 (PCR) NEGATIVE (Negative) Influenza Type A (PCR) Negative (Neg) Influenza Type B (PCR) Negative (Neg) RSV (RT-PCR) Negative (Neg) Imaging Data My Impression: Acute abdominal series: Chest x-ray negative. No air-fluid lev els. No signs of obstruction. No free air under the diaphragm. Radiologist's Impression: Preliminary Findings Only See Final Report For Complete Findings CT HEAD: Comparison is made to CT brain 07/27/2020 No acute intracranial hemorrhage, extra-axial fluid collection or mass-effect. No CT evidence of acute territorial infarct. Redemonstration of an old lacunar infarct involving the left external capsule and basal ganglia with minimal ex vacuo dilatation of the adjacent trigone of the left lateral ventricle. Prosthetic left globe. Radiologist: Brianne Hammond M.D. Study ready at 22:17 and initial results transmitted at 22:29 ECG Data Indication: + other (arrythmia) Rate (beats per minute): 83 Rhythm: + normal sinus ECG Intervals/blocks: + Normal MT and + Normal QT-c ECG ST segments: + Normal ST segments Additional Comments: QRS 78 MDM Narrative 2000: The patient was evaluated in room B. A complete history and physical exam was performed Cardiac monitoring: An order was placed for continuous cardiac monitoring. The monitor shows a rate of 80 with sinus rhythm Patient was brought back to the room with a lower than expected GCS. Accu-Chek showed blood glucose of 28. 1 amp of D50 was ordered for the patient. 2029: Status post 1 amp of D50 patient's glucose is 127. She is alert and oriented. She states she did not take more of her insulin than she was prescribed and the patient states that she is not on any sulfonylurea medications for her diabetes. 2117: Called to bedside by nursing. Per the nursing staff the patient's called out and stated the patient was having a grand mal seizure. He reports the last approximately 30 seconds. On arrival in the room patient is not seizing and does not appear postictal. There is no evidence of tongue bite. Patient's repeat glucose is 75. Again patient denies taking any excessive insu chacho or sulfonylurea medications. Will obtain CT of the head. 1 amp of D50 again ordered for the patient. 224: CT of the head within normal limits. Labs show potassium 2.9. Creatinine 4.11. Acute abdominal series within normal limits. No air-fluid levels. No evidence of perforation. CT of the head within normal limits. EMR reviewed. Patient has had multiple admissions for gastroparesis/nausea vomiting. She has a history of not following up with GI for her gastroparesis appointments. She has a history of noncompliance with her hemodialysis. Patient is on Keppra for the seizures. This month alone the patient has already had 2 CTs of her abdomen. In the first 4 months of this year at this facility alone the patient has had 7 CTs including 5 CTs of the abdomen, all of which have been normal limits. It is thought that the patient's seizure could be due to hypoglycemia however it is unlikely that it resolved on its own without any antiepileptics or glucose. There is also the chance that the patient is having pseudoseizures. C-peptide has been ordered for the patient to see if there is any chance of her given herself too much insulin which would cause her hypoglycemia. Discussed case with Dr. Adarsh Emmanuel hospitalist who will evaluate the patient. Impression & Plan Hypoglycemia, Hypokalemia, Seizure-like activity Discharge Plan Visit Data Chief Complaint: Abdominal Pain Stated Complaint: ABDOMINAL PAIN, VOMITING ED Provider: Gomez Peguero Discharge Problem: Hypoglycemia, Hypokalemia, Seizure-like activity Patient Disposition: Being Evaluated by Hospitalist Forms Stand Alone Forms: [facility] [employer] Prescriptions Prescriptions: No Action aripiprazole [Abilify] 5 mg tablet 5 mg PO HS RF: 0 atorvastatin [Lipitor] 40 mg tablet 40 mg PO HS RF: 0 trazodone 150 mg tablet 75 mg PO HS PRN (Reason: Sleep) RF: 0 temazepam [Restoril] 15 mg capsule 15 mg PO HS RF: 0 hydroxyzine HCl 25 mg tablet 25 mg PO TID PRN (Reason: Anxiety) RF: 0 trimethobenzamide 300 mg Capsule 300 mg PO TID PRN (Reason: NAUSEA/VOMITING) RF: 0 levetiracetam [Keppra] 500 mg tablet 500 mg PO BID RF: 0 melatonin 3 mg Tablet 3 mg PO HS RF: 0 prochlorperazine maleate 5 mg Tablet 5 mg PO QID PRN (Reason: Nausea) RF: 0 lamotrigine [Lamictal] 25 mg tablet 50 mg PO HS RF: 0 ergocalciferol (vitamin D2) [Vitamin D2] 1,250 mcg (50,000 unit) Capsule 50,000 unit PO FR RF: 0 sertraline [Zoloft] 50 mg tablet 75 mg PO HS RF: 0 insulin lispro [Admelog SoloStar U-100 Insulin] 100 unit/mL Insulin Pen 7 unit SUBCUT TIDM RF: 0 sevelamer carbonate 800 mg Tablet 800 mg PO TIDM RF: 0 benztropine 0.5 mg tablet 0.5 mg PO HS RF: 0 lactulose 10 gram/15 mL Solution 10 g PO BID PRN (Reason: Constipation) Qty: 200 RF: 0 Lantus Solostar U-100 Insulin 100 unit/mL (3 mL) insulin pen 12 unit subcut HS Qty: 15 RF: 0 polyethylene glycol 3350 [Miralax] 17 gram powder in packet 17 g PO QAM RF: 0 calcium acetate(phosphat bind) 667 mg capsule 667 mg PO TIDM RF: 0 lubiprostone 24 mcg Capsule 24 mcg PO BIDM RF: 0 buspirone 10 mg tablet 10 mg PO TID RF: 0 metoclopramide HCl 5 mg tablet 5 mg PO TID PRN (Reason: Nausea) RF: 0 pantoprazole 40 mg Tablet,Delayed Release (Dr/Ec) 40 mg PO QAM Qty: 30 RF: 0 Linzess 145 mcg Capsule 145 mcg PO QAM Qty: 30 RF: 1 sucralfate 100 mg/mL Suspension 10 ml PO BID 30 Days Qty: 600 RF: 1 Advanced Probiotic 625 mg (10 billion cell) capsule 2 cap PO QAM RF: 0 Referrals Referrals: Mitchel Santo MD [Primary Care Provider] -
[2020-09-30] MEDS ORDERED: amLODIPine BESYLATE 5 MG TAB PO ONE (23:13)
[2020-09-30] MEDS ORDERED: levETIRAcetam 500 MG in 0.9 % SODIUM CHLORIDE 100 ML IV STA (23:14)
--- NOTE | 2020-09-30 23:14 | History & Physical Report ---
Date of Service September 30, 2020 Assessment & Plan (1) Hypertensive crisis: Secondary to gastroenteritis (acute on chronic abdominal pain secondary to gastroparesis rule out C. difficile), possible breakthrough seizures secondary to recurrent hypoglycemia History hypertension currently not on medications medications secondary to orthostatic hypotension as per records Patient Coreg stopped last year as per records. DM 1, recurrent hypoglycemic episodes leading to multiple ER visits and c onfinements at [facility] and [facility] Reasonable control as of recent hemoglobin A1c of 8.08 September 2020 Poor p.o. intake secondary to gastroparesis chronic diastolic heart failure (EF 74%, DSE 2018), patient on the dry side nonocclusive CAD as per records history CVA as per records COPD, stable ESRD on HD Chronic anemia, hemoglobin at baseline mood disorder, at baseline Hypokalemia secondary to GI illness, home insulin ? Functional disability, recurrent admissions/ER visits past tobacco abuse PCU IV Hydralazine 1 dose now Amlodipine if with persistent BP elevation Stool C. difficile Seizure precautions, facilitate Keppra, Ativan as needed Hypoglycemic protocol Decrease maintenance basal insulin for now, ISS BG goal [id number] (Involved patient with discharge planning pertinent to DM medications as patient caregiver. Patient unable to administer insulin to herself.) Nephrology consult Re: Dialysis management Saturday Caution with narcotic use given recurrent admissions and ER visits at [facility] and [facility] for hypoglycemia and chronic abdominal pain (possible secondary gain) PT OT eval Social service RE: Discharge planning DVT prophylaxis with Heparin subcu Full code Patient requesting updates from providers. Mr. Harley Aguilar, contact #[phone]. Text document was generated using [employer] voice recognition software. It may contain grammatical or spelling errors. Kindly contact undersigned for clarification of any documentation item in question. History of Present Illness Chief Complaint: Worsening abdominal pain, diarrhea Primary Care Provider: Dr. Anguiano History obtained from patient, family, and records. Medical history significant for chronic diastolic heart failure (EF 74%, DSE 2018), nonocclusive CAD as per records, HTN currently off medication secondary to orthostatic hypotension as per records, history CVA, COPD, hx DM1, ESRD on HD, chronic anemia (baseline hemoglobin 9-10), mood disorder, past tobacco abuse, medication noncompliance as per records, history of seizures as per records, chronic abdominal pain secondary to gastroparesis as per records. Multiple confinements and ER visits at [facility] and [facility] the last few months for chronic abdominal pain and hypoglycemia symptoms. Recent confinement [facility] 3 weeks ago for hyperkalemia secondary to missed dialysis. Recent confinement at [facility] 2 weeks ago for generalized abdominal pain. Patient was seen by GI during confinement. GI symptoms attributed to exacerbation of IBS and diabetic autonomic gastropath y. Persistent achy lower abdominal pain after discharge from hospital as per patient. Poor appetite and hypoglycemic episodes at home as per patient and . Worsening abdominal pain the last 3 days with nausea vomiting and watery diarrhea. No fever, no chills. No chest pain, no S OB. Achy headache symptoms. At the ER, patient noted to have seizure-like activity lasting about a minute as per patient . No confusion, urinary incontinence after episode as per RN. BSG noted to be 20 to 70s during event as per RN. Last seizure was last year as per patient secondary to hypoglycemia. Patient compliant with seizure meds. Medical History as above Hemodialysis, Saturday Surgical History : Vascular procedures, appendectomy, cholecystectomy, BTL, eye surgery, breast lesion excision Family History : Diabetes, breast cancer, heart disease, ovarian cancer, thyroid disease Personal/Social history : Past tobacco abuse, no EtOH intake, disabled Allergies Allergy/AdvReac Type Severity Reaction Status Date / Time Fish Containing Products Allergy Mild Hives Verified 09/25/20 17:35 latex Allergy Mild hives Verified 09/25/20 17:35 shellfish derived Allergy Mild Hives Verified 09/25/20 17:35 Home Medications Medication Instructions Recorded Confirmed Type aripiprazole [Abilify] 5 mg PO HS 05/20/19 09/30/20 History levetiracetam [Keppra] 500 mg PO BID 06/20/19 09/30/20 History atorvastatin [Lipitor] 40 mg PO HS 08/01/19 09/30/20 History melatonin 3 mg PO HS 01/29/20 09/30/20 History hydroxyzine HCl 25 mg PO TID PRN 02/20/20 09/30/20 History temazepam [Restoril] 15 mg PO HS 02/20/20 09/30/20 History trazodone 75 mg PO HS PRN 02/20/20 09/30/20 History trimethobenzamide 300 mg PO TID PRN 03/21/20 09/30/20 History benztropine 0.5 mg PO HS 07/27/20 09/30/20 History ergocalciferol (vitamin D2) 50,000 unit PO FR 07/27/20 09/30/20 History [Vitamin D2] insulin lispro [Admelog SoloStar 7 unit SUBCUT TIDM 07/27/20 09/30/20 History U-100 Insulin] lamotrigine [Lamictal] 50 mg PO HS 07/27/20 09/30/20 History prochlorperazine maleate 5 mg PO QID PRN 07/27/20 09/30/20 History sertraline [Zoloft] 75 mg PO HS 07/27/20 09/30/20 History sevelamer carbonate 800 mg PO TIDM 07/27/20 09/30/20 History Lantus Solostar U-100 Insulin 12 unit SUBCUT HS #15 ml 07/31/20 09/30/20 Rx lactulose 10 g PO BID PRN #200 ml 07/31/20 09/30/20 Rx buspirone 10 mg PO TID 08/16/20 09/30/20 History metoclopramide HCl 5 mg PO TID PRN 08/16/20 09/30/20 History Linzess 145 mcg PO QAM #30 cap 08/21/20 09/30/20 Rx pantoprazole 40 mg PO QAM #30 tab 08/21/20 09/30/20 Rx sucralfate 10 ml PO BID 30 Days #600 ml 08/21/20 09/30/20 Rx calcium acetate(phosphat bind) 667 mg PO TIDM 09/09/20 09/30/20 History lubiprostone 24 mcg PO BIDM 09/09/20 09/30/20 History polyethylene glycol 3350 [Miralax] 17 g PO QAM 09/09/20 09/30/20 History L.acidop,valery,lac,rha-B.lac,tim 2 cap PO QAM 09/25/20 09/30/20 History [Advanced Probiotic] 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 history of CVA in 2018 Residual R sided weakness Depression Diabetic gastroparesis Diastolic heart failure DM type 1 (diabetes mellitus, type 1) ESRD (end stage renal disease) on dialysis GERD (gastroesophageal reflux disease) History of GI bleed Hyperlipidemia Hypertension Seizure Surgical History Hx of appendectomy Hx of cholecystectomy Hx of tubal ligation Family History Mother Coronary heart disease Hypertension Father Coronary heart disease Social History Smoking Status: Former smoker Tobacco Type: Cigarettes Second Hand Exposure: No; Do You Dip or Chew Tobacco: No; Tobacco Cessation Education Requested by Patient: No Hx Alcohol Use: No Hx Substance Use: No Preferred Language: Occitan Communication Ability: Effective Electric Switch Tester Required: No Beliefs That Will Affect Care: None marital status: Life Partner Current Living Situation: Significant Other current occupational status: unemployed Other Information That Helps Us Care for You: No Feels Safe at Home: Yes Safety Concerns: Feels Safe At This Time Assistive Devices: None Review of Systems Review of Systems: As per HPI, all 10 systems reviewed, all other ROS negative Physical Exam Physical Exam: GENERAL: Comfortable, slightly anxious, chronically ill, no respiratory distress SKIN: Pallor, warm HEENT: Pale palpebral conjunctivae, no ptosis, dry buccal mucosa NECK : Supple, no tenderness CHEST : CTA, no tenderness HEART : RRR, no obvious murmurs ABDOMEN: Some distention, hypogastric tenderness EXTREMITIES : No LE swelling/tenderness, no other conspicuous deformities noted NEUROLOGIC : Coherent, no facial asymmetry, no other gross focality Results & Data Results & Data ([facility]) Vital Signs (Past 12 Hours) Vital Signs Temp Pulse Pulse Resp BP BP Pulse Ox 09/30/20 22:44 80 20 196/91 H 99 09/30/20 22:43 96 09/30/20 22:32 83 11 L 196/91 H 99 09/30/20 22:31 82 19 09/30/20 21:30 81 17 222/98 H 98 09/30/20 21:03 86 18 217/91 H 09/30/20 21:00 79 14 217/90 H 09/30/20 20:45 80 18 231/88 H 09/30/20 20:36 83 14 09/30/20 20:14 83 16 166/72 H 09/30/20 19:43 37.0 C 103 H 18 147/71 H 99 Laboratory Results Laboratory Results WBC 8.13 K/uL (4.8-10.8) 09/30/20 20:14 RBC 3.59 M/uL (4.2-5.4) L 09/30/20 20:14 Hgb 10.8 g/dL (12.0-16.0) L 09/30/20 20:14 POC Hgb 10.2 g/dl (12.0-16.0) L 09/30/20 20:20 Hct 31.6 % (37-47) L 09/30/20 20:14 POC Hct 30 % (37-47) L 09/30/20 20:20 MCV 88.0 fL (80-100) 09/30/20 20:14 MCH 30.1 pg (25-34) 09/30/20 20:14 MCHC 34.2 g/dL (32-36) 09/30/20 20:14 RDW Std Deviation 44.9 fL (36.4-46.3) 09/30/20 20:14 RDW Coeff of Lebron 13.8 % (11.5-14.5) 09/30/20 20:14 Plt Count 338 K/uL (130-400) 09/30/20 20:14 MPV 9.8 fL (7.4-10.4) 09/30/20 20:14 Neutrophils % (Manual) 40.9 % 09/30/20 20:14 Lymphocytes % (Manual) 21.7 % 09/30/20 20:14 Reactive Lymphs % (Man) 27.0 % 09/30/20 20:14 Monocytes % (Manual) 5.2 % 09/30/20 20:14 Eosinophils % (Manual) 5.2 % 09/30/20 20:14 Neutrophils # (Manual) 3.33 K/uL (1.4-6.5) 09/30/20 20:14 Total Absolute Neuts 3.33 K/uL (1.4-6.5) 09/30/20 20:14 Lymphocytes # (Manual) 1.76 K/uL (1.2-3.4) 09/30/20 20:14 Reactive Lymphs # 2.20 K/uL 09/30/20 20:14 Total Abs Lymphocytes 3.96 K/uL (1.2-3.4) H 09/30/20 20:14 Monocytes # (Manual) 0.42 K/uL (0.11-0.59) 09/30/20 20:14 Eosinophils # (Manual) 0.42 K/uL (0-0.5) 09/30/20 20:14 RBC Morphology Unremarkable 09/30/20 20:14 POC Sodium 138 mmol/L (135-144) 09/30/20 20:20 Sodium 139 mmol/L (136-145) 09/30/20 20:14 POC Potassium 3.0 mmol/L (3.3-5.0) L 09/30/20 20:20 Potassium 2.9 mmol/L (3.5-5.1) L 09/30/20 20:14 POC Chloride 99 mmol/L (101-112) L 09/30/20 20:20 Chloride 103 mmol/L (98-107) 09/30/20 20:14 Carbon Dioxide 30 mmol/L (21-32) 09/30/20 20:14 POC Total CO2 30 mmol/L (24-31) 09/30/20 20:20 Anion Gap 5.0 (3-11) 09/30/20 20:14 POC Anion Gap 14.0 mmol/L (16-25) L 09/30/20 20:20 POC BUN 25 mg/dl (7-18) H 09/30/20 20:20 BUN 27 mg/dl (7-18) H 09/30/20 20:14 Creatinine 4.11 mg/dl (0.6-1.2) H 09/30/20 20:14 POC Creatinine 4.6 mg/dl (0.6-1.3) H* 09/30/20 20:20 Est Cr Clr Drug Dosing Not Reportable 09/30/20 20:14 Est GFR ( Amer) 13.6 09/30/20 20:14 Est GFR (Non-Af Amer) 11.7 09/30/20 20:14 BUN/Creatinine Ratio 6.5 (10-20) L 09/30/20 20:14 Glucose 22 mg/dl (70-99) L* 09/30/20 20:14 POC Glucose 124 mg/dl (70-99) H 09/30/20 22:33 POC Glucose (other) 21 mg/dl (70-99) L* 09/30/20 20:20 Calcium 9.5 mg/dl (8.5-10.1) 09/30/20 20:14 POC Ioniz Calcium Brittany 1.24 mmol/l (1.12-1.32) 09/30/20 20:20 Magnesium 2.3 mg/dl (1.8-2.4) 09/30/20 20:14 Total Bilirubin 0.4 mg/dl (0.2-1) 09/30/20 20:14 Direct Bilirubin < 0.1 mg/dl (0-0.2) 09/30/20 20:14 AST 10 U/L (15-37) L 09/30/20 20:14 ALT 17 U/L (12-78) 09/30/20 20:14 Alkaline Phosphatase 69 U/L (45-117) 09/30/20 20:14 Total Protein 7.1 gm/dl (6.4-8.2) 09/30/20 20:14 Albumin 3.7 gm/dl (3.4-5.0) 09/30/20 20:14 Lipase 49 U/L (73-393) L 09/30/20 20:14 COVID-19 Eval Order CovFluRsv at [facility] 09/30/20 21:45 SARS-CoV-2 (PCR) NEGATIVE (Negative) 09/30/20 21:45 Influenza Type A (PCR) Negative (Neg) 09/30/20 21:45 Influenza Type B (PCR) Negative (Neg) 09/30/20 21:45 RSV (RT-PCR) Negative (Neg) 09/30/20 21:[address] head initial read: No acute intracranial hemorrhage, extra-axial fluid collection or mass-effect. Old lacunar infarct left external capsule and basal ganglia with minimal ex vacuo dilatation of the adjacent trigone of the left lateral ventricle. Prosthetic left globe. Chest x-ray as per my interpretation borderline cardiomegaly. Abdominal x-ray as per my interpretation no obstruction. EKG as per my interpretation : Rate 85, NSR, normal axis, septal infarct, diffuse T wave abnormalities inferior and anterolateral leads
[2020-10-01] MEDS ORDERED: METOCLOPRAMIDE HCL INJ 5 MG/ML 2 ML VIAL IV PRN (00:58)
[2020-10-01] MEDS ORDERED: DEXTROSE 50% 50 ML SYRINGE IV PRN ×2 (00:58→06:02)
[2020-10-01] MEDS ORDERED: ERGOCALCIFEROL 50,000 UNITS 1250 MCG CAP PO SCH (00:58)
[2020-10-01] MEDS ORDERED: GLUCOSE 10 TABS/TUBE PO PRN ×2 (00:58→06:02)
[2020-10-01] MEDS ORDERED: GLUCOSE 40% GEL 15 GM TUBE PO PRN ×2 (00:58→06:02)
[2020-10-01] MEDS ORDERED: GLUCAGON FOR INJ 1 MG VIAL SQ PRN ×2 (00:58→06:02)
[2020-10-01] MEDS ORDERED: ACETAMINOPHEN 1,000 MG/100 ML VIAL IV PRN (00:58)
[2020-10-01] MEDS ORDERED: PROMETHAZINE HCL 12.5 MG in SODIUM CHLORIDE 0.9% 50 ML IV PRN (00:58)
[2020-10-01] MEDS ORDERED: hydrOXYzine HCl 25 MG TAB PO PRN (00:58)
[2020-10-01] MEDS ORDERED: CARBOHYDRATES FOR HYPOGLYCEMIA PO PRN ×2 (00:58→06:02)
[2020-10-01] MEDS ORDERED: INSULIN GLARGINE SOLOSTAR 100 UNITS/ML 3 ML PEN SC STA ×2 (01:19→06:01)
[2020-10-01] MEDS: traZODone HCL 50 MG TAB PO PRN ×2 (01:57→20:06)
[2020-10-01] MEDS: busPIRone 5 MG TAB PO SCH ×4 (01:57→20:06)
[2020-10-01] MEDS: SUCRALFATE 1 GM/10 ML UDC PO SCH ×3 (01:57→20:06)
[2020-10-01] MEDS: lamoTRIgine 25 MG TAB PO SCH ×2 (01:57→20:06)
[2020-10-01] MEDS: INSULIN ASPART 100 UNITS/ML 3 ML PEN SC SCH ×6 (02:01→21:01)
[2020-10-01] MEDS: ACETAMINOPHEN 325 MG TAB PO PRN ×3 (02:05→16:24)
[2020-10-01 06:09] LABS: Basophils # (auto) 0.02 K/uL (0-0.2); Basophils % (auto) 0.4 %; Eosinophils # (auto) 0.07 K/uL (0-0.5); Eosinophils % (auto) 1.3 %; Hematocrit (blood only) 27.8 % (37-47); Hemoglobin 9.5 g/dL (12.0-16.0); Immature Granulocytes # (auto) 0.01 K/uL (0.00-0.02); Immature Granulocytes % (auto) 0.2 %; Lymphocytes # (auto) 1.58 K/uL (1.2-3.4); Lymphocytes % (auto) 29.9 %; Mean Corpuscular Hemoglobin 30.3 pg (25-34); Mean Corpuscular Hgb Conc 34.2 g/dL (32-36); Mean Corpuscular Volume 88.5 fL (80-100); Mean Platelet Volume 9.9 fL (7.4-10.4); Monocytes # (auto) 0.59 K/uL (0.11-0.59); Monocytes % (auto) 11.2 %; Neutrophils # (auto) 3.01 K/uL (1.4-6.5); Platelet Count 295 K/uL (130-400); RDW Coefficient of Variation 14.1 % (11.5-14.5); RDW Standard Deviation 45.7 fL (36.4-46.3); Red Blood Count 3.14 M/uL (4.2-5.4); White Blood Count 5.28 K/uL (4.8-10.8)
[2020-10-01 06:24] LABS: Appearance Urine Cloudy (Clear); Bacteria Urine Automated Negative (Negative); Bilirubin Urine Negative (Negative); Blood Urine Negative (Negative); Color Urine Yellow; Epithelial Cell Urine Auto >30 /lpf (0-5); Glucose Urine UA 2+ (Negative); Ketones Urine Trace (Negative); Leukocyte Esterase Urine 1+ (Negative); Nitrite Urine Negative (Negative); Protein Urine 1+ (Negative); Specific Gravity Urine 1.018 (1.000-1.030); Urobilinogen Urine Negative (Negative); pH Urine 5.5 (4.5-7.5)
[2020-10-01] MEDS: HEPARIN SOD 5,000 UNIT/0.5 ML VIAL SQ SCH ×3 (06:28→21:01)
[2020-10-01 06:43] LABS: Amphetamines+Metham, Urine Neg (Neg); Barbiturates, Urine Neg (Neg); Benzodiazepine, Urine Pos (Neg); Cocaine, Urine Neg (Neg); MDMA (Ecstacy), Urine Pos (Neg); Methadone, Urine Neg (Neg); Opiate, Urine Pos (Neg); Phencyclidine, Urine Neg (Neg)
[2020-10-01 06:56] LABS: BUN Creatinine Ratio 6.9 (10-20); Calcium 8.9 mg/dl (8.5-10.1); Creatinine Clr Calc Pharmacy 11.6 ml/min; Est GFR (African American) 12.2; Est GFR (Non-African American) 10.5
[2020-10-01 07:04] LABS: RBC Urine Automated 0-4 /hpf (0-4)
[2020-10-01 07:08] LABS: Beta-Hydroxybutyrate 11.88 mg/dl (0.2-2.81)
[2020-10-01 07:10] LABS: Potassium 4.4 mmol/L (3.5-5.1)
[2020-10-01] MEDS: SEVELAMER HCL 800 MG TABLET PO SCH ×3 (08:05→16:24)
[2020-10-01] MEDS: CALCIUM ACETATE 667 MG CAP/TAB PO SCH ×3 (08:05→16:24)
[2020-10-01] MEDS: ADVANCED PROBIOTIC 1250 MG CAPSULE PO SCH (08:05)
[2020-10-01] MEDS: PANTOprazole 40 MG TAB PO SCH (08:06)
[2020-10-01] MEDS: levETIRAcetam 500 MG TAB PO SCH ×2 (08:06→20:06)
[2020-10-01] MEDS: POLYETHYLENE (MIRALAX) 17 GM PACK PO SCH ×3 (08:06→20:01)
--- NOTE | 2020-10-01 08:44 | CT Scan Report ---
CT SCAN OF THE BRAIN WITHOUT IV CONTRAST CLINICAL HISTORY: Seizure. COMPARISON STUDY: CT of the brain dated 07/27/2020. TECHNIQUE: Unenhanced axial CT scan of the brain is performed from the vertex to the skull base. A d ose lowering technique was utilized adhering to the principles of ALARA. CT DOSE: 729.78 mGycm FINDINGS: Brain parenchyma: Chronic lacunar infarcts are noted in the right thalamus and the left basal ganglia . There is no hemorrhage, mass effect, or evidence of acute territorial ischemia by CT criteria. Pittman -white matter differentiation is preserved. No extra-axial fluid collection is seen. Ventricles, sulci, cisterns: Normal in configuration. Intracranial vasculature: There is mild atherosclerotic calcification of the cavernous carotid and ve rtebral arteries. Calvarium: Unremarkable. Sinuses and mastoids: The visualized paranasal sinuses are clear. The mastoid air cells are well pneu matized. Orbits: The bony orbits are grossly intact. Chronic changes involving the left globe are similar to p revious. There is a right ocular lens implant. IMPRESSION: There is no hemorrhage, mass effect, or evidence of acute territorial ischemia by CT michael mata. ACT 112: Negative or not required by law. Electronically signed by: Davy Willson M.D. 10/01/2020 8:42 AM
--- NOTE | 2020-10-01 08:57 | XRay Report ---
AP CHEST WITH ABDOMINAL SERIES CLINICAL HISTORY: Vomiting. FINDINGS: An AP, upright, portable chest radiograph is compared to study dated 08/29/2020. The heart is top norm al for projection. The lungs and pleural spaces are clear. No pneumothorax is seen. The bony thorax i s grossly intact. Vascular stents project over the right axilla. Supine and erect abdominal radiographs are compared to study dated 08/29/2020 and correlated with abdo rose marie CT dated 09/25/2020. Cholecystectomy clips are noted in the right upper quadrant. Mild to modera te fecal retention is noted in the colon. There is a nonobstructed abdominal bowel gas pattern. No ev idence of intraperitoneal free air is seen. There are no abnormal abdominal calcifications. Phlebolit h and an intrauterine device are noted in the pelvis. The lumbosacral spine and bony pelvis appear in tact. IMPRESSION: 1. No active disease in the chest. 2. Nonobstructed abdominal bowel gas pattern. ACT 112: Negative or not required by law. Electronically signed by: Davy Willson M.D. 10/01/2020 8:55 AM
--- NOTE | 2020-10-01 09:42 | Nephrology Consultation ---
Date of Consultation October 01, 2020 Assessment & Plan (1) End-stage renal disease (ESRD): Patient with ESRD on dialysis Saturday. Last outpatient dialysis was on . Electrolytes are stable and no signs of volume overload. Given recent fluctuations in her blood pressure and seizure-like activity, I will hold off dialysis today. Patient can go several days without dialysis. We will plan dialysis on Saturday or Saturday unless clinical situation changes. If patient is cleared for discharge, she will get outpatient dialysis on Saturday. (2) Hypoglycemia: Patient with diabetes and frequent admissions for hyperglycemia or hypoglycemia. Continue management per primary team. She will need adjustment in her insulin (3) Seizure-like activity: Continue Keppra. No seizures today. We will hold off dialysis today. (4) Hypertension: Patient had labile blood pressures on admission but blood pressure is controlled now. Continue amlodipine 2.5 mg daily. History of Present Illness Reason for Consultation: ESRD complicated by hypoglycemia Requesting Physician: Dawson Mohamud MD Attending Physician: Dawson Mohamud MD History of Present Illness This is 50-year-old female with history of ESRD on dialysis Saturday at [facility], diabetes complicated by gastroparesis hypertension, Seizures on Keppra,CVA who was admitted on 09/30/2020 with hypoglycemia. Her last dialysis was on . She has a right upper arm AV fistula which works well. Her last outpatient dialysis was on . She reportedly measured her blood sugar and it was in the 30s on Saturday and she presented to the emergency room. In the emergency room her systolic blood pressure was in the 200s. Patient also had seizure-like activity in the emergency room which self resolved. Blood sugar was low. Her blood pressure is now down to 100/55. Blood sugar is improving. She denies any shortness of breath. No vomiting or abdominal pain. No leg swelling. She has poor appetite and did not eat her breakfast. Allergies Allergy/AdvReac Type Severity Reaction Status Date / Time Fish Containing Products Allergy Mild Hives Verified 09/25/20 17:35 latex Allergy Mild hives Verified 09/25/20 17:35 shellfish derived Allergy Mild Hives Verified 09/25/20 17:35 Home Medications Medication Instructions Recorded Confirmed Type aripiprazole [Abilify] 5 mg PO HS 05/20/19 09/30/20 History levetiracetam [Keppra] 500 mg PO BID 06/20/19 09/30/20 History atorvastatin [Lipitor] 40 mg PO HS 08/01/19 09/30/20 History melatonin 3 mg PO HS 01/29/20 09/30/20 History hydroxyzine HCl 25 mg PO TID PRN 02/20/20 09/30/20 History temazepam [Restoril] 15 mg PO HS 02/20/20 09/30/20 History trazodone 75 mg PO HS PRN 02/20/20 09/30/20 History trimethobenzamide 300 mg PO TID PRN 03/21/20 09/30/20 History benztropine 0.5 mg PO HS 07/27/20 09/30/20 History ergocalciferol (vitamin D2) 50,000 unit PO FR 07/27/20 09/30/20 History [Vitamin D2] insulin lispro [Admelog SoloStar 7 unit SUBCUT TIDM 07/27/20 09/30/20 History U-100 Insulin] lamotrigine [Lamictal] 50 mg PO HS 07/27/20 09/30/20 History prochlorperazine maleate 5 mg PO QID PRN 07/27/20 09/30/20 History sertraline [Zoloft] 75 mg PO HS 07/27/20 09/30/20 History sevelamer carbonate 800 mg PO TIDM 07/27/20 09/30/20 History Lantus Solostar U-100 Insulin 12 unit SUBCUT HS #15 ml 07/31/20 09/30/20 Rx lactulose 10 g PO BID PRN #200 ml 07/31/20 09/30/20 Rx buspirone 10 mg PO TID 08/16/20 09/30/20 History metoclopramide HCl 5 mg PO TID PRN 08/16/20 09/30/20 History Linzess 145 mcg PO QAM #30 cap 08/21/20 09/30/20 Rx pantoprazole 40 mg PO QAM #30 tab 08/21/20 09/30/20 Rx sucralfate 10 ml PO BID 30 Days #600 ml 08/21/20 09/30/20 Rx calcium acetate(phosphat bind) 667 mg PO TIDM 09/09/20 09/30/20 History lubiprostone 24 mcg PO BIDM 09/09/20 09/30/20 History polyethylene glycol 3350 [Miralax] 17 g PO QAM 09/09/20 09/30/20 History L.acidop,valery,lac,rha-B.lac,tim 2 cap PO QAM 09/25/20 09/30/20 History [Advanced Probiotic] Patient History Medical History Anemia due to chronic kidney disease Arteriovenous fistula for hemodialysis in place, primary Bipolar disorder CKD (chronic kidney disease) stage V requiring chronic dialysis Coronary artery disease "2015 - cardiac catheterization showing nonobstructive coronary disease Stress test 06/2017 - possible small area of ischemia in the anterior wall" CVA (cerebral vascular accident) 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 history of CVA in 2018 Residual R sided weakness Depression Diabetic gastroparesis Diastolic heart failure DM type 1 (diabetes mellitus, type 1) ESRD (end stage renal disease) on dialysis GERD (gastroesophageal reflux disease) History of GI bleed Hyperlipidemia Hypertension Seizure Surgical History Hx of appendectomy Hx of cholecystectomy Hx of tubal ligation Family History Mother Coronary heart disease Hypertension Father Coronary heart disease Social History Smoking Status: Former smoker Tobacco Type: Cigarettes Second Hand Exposure: No; Do You Dip or Chew Tobacco: No; Tobacco Cessation Education Requested by Patient: No Hx Alcohol Use: No Hx Substance Use: No Preferred Language: Bengali Communication Ability: Effective Mobility Specialist Required: No Beliefs That Will Affect Care: None marital status: Life Partner Current Living Situation: Significant Other current occupational status: unemployed Other Information That Helps Us Care for You: No Feels Safe at Home: Yes Safety Concerns: Feels Safe At This Time Assistive Devices: None Review of Systems Review of Systems: All systems reviewed & are unremarkable except as noted in HPI & below Physical Exam Physical Exam: General exam: Appears comfortable, no acute distress HEENT: Pupils are equal and reactive to light Neck: No JVD, neck is supple trachea is midline Respiratory system: Clear breath sounds bilaterally. Gastrointestinal: Abdomen is soft, non distended, non tender, bowel sounds are present CVS: Regular rate and rhythm. No murmurs, rubs or gallops Musculoskeletal: No joint or muscle tenderness Extremities: Non tender, no edema, peripheral pulses are present Neuro: Oriented, no tremors, no focal neurological deficits Skin: No rashes Access; right UA AVF good bruit Results & Data ([facility]) Vital Signs (Past 12 Hours) Vital Signs Temp Pulse Pulse Resp BP BP BP 10/01/20 07:22 92 H 10/01/20 06:50 37.2 C 92 H 19 105/55 L 10/01/20 03:25 37.5 C 97 H 16 129/66 10/01/20 01:00 92 H 20 168/66 H 10/01/20 00:45 36.7 C 95 H 20 114/66 09/30/20 22:44 80 20 196/91 H 09/30/20 22:43 09/30/20 22:32 83 11 L 196/91 H 09/30/20 22:31 82 19 Pulse Ox 10/01/20 07:22 10/01/20 06:50 97 10/01/20 03:25 94 10/01/20 01:00 99 10/01/20 00:45 100 09/30/20 22:44 99 09/30/20 22:43 96 09/30/20 22:32 99 09/30/20 22:31 Laboratory Results 10/01/20 05:33 09/30/20 09/30/20 10/01/20 20:14 20:14 05:33 WBC 8.13 5.28 RBC 3.59 L 3.14 L MCV 88.0 88.5 MCH 30.1 30.3 MCHC 34.2 34.2 RDW Std Deviation 44.9 45.7 RDW Coeff of Lebron 13.8 14.1 Plt Count 338 295 MPV 9.8 9.9 Albumin 3.7 (1) Hypertension Hypertension type: essential hypertension Qualified Code(s): I10 - Essential (primary) hypertension
[2020-10-01] MEDS ORDERED: PHARMACY GLYCEMIC MGMT CONSULT PRN (09:44)
--- NOTE | 2020-10-01 11:32 | Pharmacy Report ---
Pharmacy Glycemic Short Note 2 - Date of Service October 01, 2020 - Glycemic Short BSG Results (Last 24 hours): 09/30/20 09/30/20 09/30/20 19:58 20:14 20:20 Glucose 22 L* POC Glucose 28 L* POC Glucose (other) 21 L* 09/30/20 09/30/20 09/30/20 20:26 21:18 22:33 Glucose POC Glucose 127 H 75 124 H POC Glucose (other) 10/01/20 10/01/20 10/01/20 01:09 01:10 05:33 Glucose 317 H* POC Glucose 324 H* 310 H* POC Glucose (other) 10/01/20 10/01/20 10/01/20 05:45 05:48 07:06 Glucose POC Glucose 342 H* 340 H* 355 H* POC Glucose (other) 10/01/20 07:08 Glucose POC Glucose 352 H* POC Glucose (other) OUTPATIENT ANTIDIABETIC REGIMEN: * Lantus 12 units SC HS * Admelog 7 units SC w/ meals * HbA1c = 8.1% (07/29/20) ASSESSMENT: * 50 yo F admitted last evening secondary to abdominal pain and vomiting. Pharmacy was consulted this AM for assistance with inpatient glycemic management. Patient well known to glycemic service. * Upon admission to ED, patient's BSG was 28 mg/dL and dropped to 21 mg/dL at one point. She was treated with 1 amp of D50 plus 40 grams of CHO (via 10 glucose tablets). * Spoke with attending this AM. Questionable 30 minutes of seizure-like activity with hypoglycemic event last evening so plan is to be conservative with both insulin dosing and goal range for the time being. * Following treatment, BSGs trended upwards nicely: 75-124 mg/dL. * Starting at midnight, BSGs drastically increased: 324-342-355 mg/dL. * She received a total of 10 units of Lantus and 12 units of Novolog this AM. * Will adjust carb ratio slightly this morning for hyperglycemia. Will hold off on any further basal insulin at this time. * Will start to transition back to home basal dosing tomorrow at lunchtime PLAN FOR INPATIENT GLYCEMIC CONTROL: * Basal insulin * Lantus 10 units (two separate 5 unit injections) this AM * Bolus insulin * NovoLog per scale ACHS or Q6hrs while NPO * Goal Range: Low 140 mg/dL - High 180 mg/dL * Correction Factor: 25 mg/dL/unit * Nutritional / Prandial insulin per carb ratio of 1 unit per 8 grams CHO consumed PLAN FOR DISCHARGE: * To be determined.
--- NOTE | 2020-10-01 13:40 | Gastrointestinal Consultation ---
Date of Consultation October 01, 2020 Assessment & Plan (1) Gastroparesis: (2) Lower abdominal pain: (3) Constipation: (4) Nausea & vomiting: gastroparesis in setting of uncontrolled DM. suspect abd pains are multifactorial from stool filled colon and gastroparesis. Recs: --reglan 5 mg TID prior to meals for gastroparesis --needs tight blood sugar control --small frequent meals, low residue diet (low fat, low fiber) --start miralax BID for constipation Thank you for allowing me to participate in the care of this patient. History of Present Illness Attending Physician: Dawson Mohamud MD 50 yo female with hx chronic diastolic heart failure (EF 74%, DSE 2019), nonocclusive CAD as per records, HTN currently off medication secondary to orthostatic hypotension as per records, history CVA, COPD, hx DM1, ESRD on HD, chronic anemia (baseline hemoglobin 9-10), mood disorder, past tobacco abuse, medication noncompliance as per records, history of seizures as per records, chronic abdominal pain secondary to gastroparesis here with abd pains, nausea, vomiting, and diarrhea, and noted to have seizure activity in ER. Currently with abdominal pains that are sharp. Imaging showed moderate stool in the colon. labs reviewed. Allergies Allergy/AdvReac Type Severity Reaction Status Date / Time Fish Containing Products Allergy Mild Hives Verified 09/25/20 17:35 latex Allergy Mild hives Verified 09/25/20 17:35 shellfish derived Allergy Mild Hives Verified 09/25/20 17:35 Home Medications Medication Instructions Recorded Confirmed Type aripiprazole [Abilify] 5 mg PO HS 05/20/19 09/30/20 History levetiracetam [Keppra] 500 mg PO BID 06/20/19 09/30/20 History atorvastatin [Lipitor] 40 mg PO HS 08/01/19 09/30/20 History melatonin 3 mg PO HS 01/29/20 09/30/20 History hydroxyzine HCl 25 mg PO TID PRN 02/20/20 09/30/20 History temazepam [Restoril] 15 mg PO HS 02/20/20 09/30/20 History trazodone 75 mg PO HS PRN 02/20/20 09/30/20 History trimethobenzamide 300 mg PO TID PRN 03/21/20 09/30/20 History benztropine 0.5 mg PO HS 07/27/20 09/30/20 History ergocalciferol (vitamin D2) 50,000 unit PO FR 07/27/20 09/30/20 History [Vitamin D2] insulin lispro [Admelog SoloStar 7 unit SUBCUT TIDM 07/27/20 09/30/20 History U-100 Insulin] lamotrigine [Lamictal] 50 mg PO HS 07/27/20 09/30/20 History prochlorperazine maleate 5 mg PO QID PRN 07/27/20 09/30/20 History sertraline [Zoloft] 75 mg PO HS 07/27/20 09/30/20 History sevelamer carbonate 800 mg PO TIDM 07/27/20 09/30/20 History Lantus Solostar U-100 Insulin 12 unit SUBCUT HS #15 ml 07/31/20 09/30/20 Rx lactulose 10 g PO BID PRN #200 ml 07/31/20 09/30/20 Rx buspirone 10 mg PO TID 08/16/20 09/30/20 History metoclopramide HCl 5 mg PO TID PRN 08/16/20 09/30/20 History Linzess 145 mcg PO QAM #30 cap 08/21/20 09/30/20 Rx pantoprazole 40 mg PO QAM #30 tab 08/21/20 09/30/20 Rx sucralfate 10 ml PO BID 30 Days #600 ml 08/21/20 09/30/20 Rx calcium acetate(phosphat bind) 667 mg PO TIDM 09/09/20 09/30/20 History lubiprostone 24 mcg PO BIDM 09/09/20 09/30/20 History polyethylene glycol 3350 [Miralax] 17 g PO QAM 09/09/20 09/30/20 History L.acidop,valery,lac,rha-B.lac,tim 2 cap PO QAM 09/25/20 09/30/20 History [Advanced Probiotic] Patient History Medical History Anemia due to chronic kidney disease Arteriovenous fistula for hemodialysis in place, primary Bipolar disorder CKD (chronic kidney disease) stage V requiring chronic dialysis Coronary artery disease "2016 - cardiac catheterization showing nonobstructive coronary disease Stress test 06/2017 - possible small area of ischemia in the anterior wall" CVA (cerebral vascular accident) 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 history of CVA in 2018 Residual R sided weakness Depression Diabetic gastroparesis Diastolic heart failure DM type 1 (diabetes mellitus, type 1) ESRD (end stage renal disease) on dialysis GERD (gastroesophageal reflux disease) History of GI bleed Hyperlipidemia Hypertension Seizure Surgical History Hx of appendectomy Hx of cholecystectomy Hx of tubal ligation Family History Mother Coronary heart disease Hypertension Father Coronary heart disease Social History Smoking Status: Former smoker Tobacco Type: Cigarettes Second Hand Exposure: No; Do You Dip or Chew Tobacco: No; Tobacco Cessation Education Requested by Patient: No Hx Alcohol Use: No Hx Substance Use: No Preferred Language: Faroese Communication Ability: Effective Final Assembly Inspector Required: No Beliefs That Will Affect Care: None marital status: Life Partner Current Living Situation: Significant Other current occupational status: unemployed Other Information That Helps Us Care for You: No Feels Safe at Home: Yes Safety Concerns: Feels Safe At This Time Assistive Devices: None Review of Systems 2 Constitutional: no fever, no chills and no weight loss Eyes: as per Subjective / HPI Ear, Nose, Mouth, Throat: as per Subjective / HPI Respiratory: no dyspnea and no dyspnea on exertion Cardiovascular: no chest pain and no palpitations Gastrointestinal: as per Subjective / HPI Musculoskeletal: no joint pain and no swelling Integumentary: no rash and no lesions Neurologic: no numbness and no paresthesia Psychiatric: no depression and no anxiety Endocrine: no fatigue Hematologic / Lymphatic: no easy bleeding and no easy bruising Physical Exam Constitutional: WD/WN, vitals as above Eyes: EOM intact bilaterally Neck: normal visual inspection Respiratory: normal respiratory effort, lungs clear to auscultation Cardiovascular: RRR, no murmur, no edema Gastrointestinal (Abdomen): Inspection/Auscultation: abdomen normal to inspection; abdomen not distended Percussion/Palpation: + abdomen tender (mild) and abdomen soft; no hepatosplenomegaly Musculoskeletal: Extremities: no cyanosis Gait: normal gait Skin: no rashes, warm and dry Neurologic: moves all extremities Psychiatric: A+Ox3, euthymic affect Results & Data ([facility]) Vital Signs (Past 12 Hours) Vital Signs Temp Pulse Pulse Resp BP Pulse Ox 10/01/20 10:58 37.1 C 83 16 145/68 H 99 10/01/20 07:22 92 H 10/01/20 06:50 37.2 C 92 H 19 105/55 L 97 10/01/20 03:25 37.5 C 97 H 16 129/66 94 PG Care Time/CCT Total # of Minutes Spent Total Time Spent with Patient: Total time spent is greater than 50% in coordination of care (as documented) at patient's floor/unit and/or counseling patient: Coding Level of Care Code 98751 Inpt Consult Level 4 Diagnoses Gastroparesis K31.84 Lower abdominal pain R10.30 Constipation K59.00 Nausea & vomiting R11.2 Vomiting Intractability: non-intractable Vomiting type: unspecified (1) Nausea & vomiting Vomiting Intractability: non-intractable Vomiting type: unspecified Qualified Code(s): R11.2 - Nausea with vomiting, unspecified
[2020-10-01] MEDS ORDERED: POLYETHYLENE (MIRALAX) 17 GM PACK PO ONE (14:45)
--- NOTE | 2020-10-01 16:07 | CT Scan Report ---
CT SCAN OF THE ABDOMEN AND PELVIS WITHOUT IV CONTRAST CLINICAL HISTORY: Generalized abdominal pain. COMPARISON STUDY: Multiple prior abdominal CT scans, most recently dated 09/25/2020. TECHNIQUE: CT scan of the abdomen and pelvis is performed from the lung bases to the proximal femora. Images are reviewed in the axial, sagittal, and coronal planes. IV contrast was not administered for this examination as per the referring clinician. Note that the examination was performed in suboptim al fashion without oral and IV contrast. A dose lowering technique was utilized adhering to the [facility] [place]. CT DOSE: 264.67 mGy.cm FINDINGS: Lung bases: The heart is normal in size noting a small pericardial effusion. The mitral annulus is de nsely calcified. A small hiatal hernia is noted. The lung bases are clear noting bibasilar scarring/a telectasis. Liver: The unenhanced liver is normal in size, contour, and attenuation. There is mild intrahepatic b iliary ductal dilatation. Gallbladder: Surgically absent noting clips in the gallbladder fossa. Spleen: Normal in size and attenuation. Pancreas: The unenhanced pancreas is moderately atrophic and grossly unremarkable. Adrenal glands: Unremarkable. Kidneys: The unenhanced kidneys demonstrate mild cortical atrophy and are without hydronephrosis. The re are numerous renovascular calcifications. No definite renal calculi are identified. There is no ev idence of contour deforming renal mass lesion. Abdominal vasculature: The abdominal aorta is normal in course and caliber noting mild to moderate at herosclerotic calcification. Bowel: The rectal wall appears mildly thickened and there is mild perirectal infiltration. Mild wall thickening is also noted in the sigmoid. No bowel obstruction is seen. Mild to moderate fecal retenti on is noted throughout the colon. The appendix is not visualized. Peritoneum: There is no intraperitoneal free air or abdominal ascites. There is a small fat-containin g umbilical hernia. Lymphadenopathy: Shotty retroperitoneal lymph nodes measure up to 10 mm in short axis. Pelvic viscera: The bladder is normal as visualized. The uterus and adnexa are normal as imaged notin g an intrauterine device in place. Skeletal structures: No lytic or blastic lesions are seen. Posterior disc osteophyte complexes are se en at L4-L5 and L5-S1. A 1.8 cm sebaceous cyst overlies the left hip posteriorly. IMPRESSION: Findings suggest a mild nonspecific proctocolitis. Clinical correlation will be required. ACT 112: Negative or not required by law. Electronically signed by: Davy Willson M.D. 10/01/2020 4:06 PM
[2020-10-01] MEDS: METOCLOPRAMIDE HCL 5 MG TABLET PO SCH (16:59)
--- NOTE | 2020-10-01 17:36 | Hospitalist Progress Note ---
Date of Service October 01, 2020 Assessment & Plan (1) Hypertensive crisis: Gastroparesis Constipation Proctocolitis secondary to above -CT ABD:Findings suggest a mild nonspecific proctocolitis. Mild to moderate fecal retention is noted throughout the colon. -Check stool for C. difficile if develops diarrhea -Gastroparesis diet -Started on Reglan -Continue bowel regimen -Appreciate GI input Breakthrough seizure History of seizure disorder Likely induced by hypoglycemia Continue Keppra Seizure precautions Hypertension urgency 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 Not on antihypertensives secondary to orthostatic hypotension Plan on low-dose amlodipine Monitoring blood pressure DM Type I Recurrent hypoglycemic episodes leading to multiple ER visits Last HbA1C: 8.1 Continue insulin therapy parent educator consulted Glycemic pharmacist consulted Chronic diastolic heart failure No signs of volume overload Monitor volume status ESRD on HD Appreciate nephrology input Hemodialysis as per nephrology Mood disorder at baseline Hypokalemia secondary to GI loses Replace electrolytes as needed DVT Px: Heparin SQ Code Status Full code Admission and Anticipated Discharge Date Admission Date: September 30, 2020 Subjective Patient is seen and examined at bedside Complains of nausea, vomiting, abdominal pain Denies chest pain, shortness of breath, dizziness Admits to not following gastroparesis diet Offers no other complaints Review of Systems Review of Systems: All systems reviewed & are unremarkable except as noted in HPI & below Physical Exam Physical Exam: Physical Exam: Vitals signs as noted above General Appearance:Thin, no apparent distress Head: normocephalic, Atraumatic Eyes: normal inspection, EOMI Neck: supple, Trachea midline Respiratory/Chest: Normal breath sounds, CTA Cardiovascular: S1, S2, No murmur Abdomen/GI:Soft, generalized tenderness, Bowel sounds present Extremities/Musculoskeletal:normal inspection, no edema Neurologic/Psych:AAOX3, grossly no focal neurological deficits Skin: normal color, warm Results & Data Results & Data ([facility]) Vital Signs (Past 12 Hours) Vital Signs Temp Pulse Pulse Resp BP Pulse Ox 10/01/20 16:10 86 10/01/20 15:15 37.1 C 88 19 135/64 99 10/01/20 10:58 37.1 C 83 16 145/68 H 99 10/01/20 07:22 92 H 10/01/20 06:50 37.2 C 92 H 19 105/55 L 97 Laboratory Results Short CBC 09/30/20 10/01/20 Range/Units 20:14 05:33 WBC 8.13 5.28 (4.8-10.8) K/uL Hgb 10.8 L 9.5 L (12.0-16.0) g/dL Hct 31.6 L 27.8 L (37-47) % Plt Count 338 295 (130-400) K/uL BMP 09/30/20 10/01/20 20:14 05:33 Sodium 139 133 L Potassium 2.9 L 4.4 D Chloride 103 100 Carbon Dioxide 30 26 BUN 27 H 31 H Creatinine 4.11 H 4.49 H D Glucose 22 L* 317 H* Calcium 9.5 8.9 Liver Function 09/30/20 Range/Units 20:14 Total Bilirubin 0.4 (0.2-1) mg/dl Direct Bilirubin < 0.1 (0-0.2) mg/dl AST 10 L (15-37) U/L ALT 17 (12-78) U/L Alkaline Phosphatase 69 (45-117) U/L Albumin 3.7 (3.4-5.0) gm/dl Urine 10/01/20 Range/Units 06:00 Urine Color Yellow Urine Appearance Cloudy A (Clear) Urine pH 5.5 (4.5-7.5) Ur Specific Nichols 1.018 (1.000-1.030) Urine Protein 1+ H (Negative) Urine Glucose (UA) 2+ H (Negative)
[2020-10-01] MEDS: TEMAZEPAM 15 MG CAPSULE PO SCH (20:05)
[2020-10-01] MEDS: MELATONIN 3 MG TAB PO SCH (20:05)
[2020-10-01] MEDS: ATORVASTATIN 40 MG TAB PO SCH (20:06)
[2020-10-01] MEDS: BENZTROPINE MESYLATE 0.5 MG TAB PO SCH (20:06)
[2020-10-01] MEDS: SERTRALINE HCL 50 MG TABLET PO SCH (20:06)
[2020-10-01] MEDS: amLODIPine BESYLATE 5 MG TAB PO SCH (20:06)
[2020-10-01] MEDS: ARIPiprazole 5 MG TAB PO SCH (20:06)
[2020-10-01] MEDS ORDERED: INSULIN GLARGINE SOLOSTAR 100 UNITS/ML 3 ML PEN SC SCH ×2 (21:00)
[2020-10-02] MEDS: HEPARIN SOD 5,000 UNIT/0.5 ML VIAL SQ SCH ×3 (06:05→20:39)
[2020-10-02 06:06] LABS: Hematocrit (blood only) 28.7 % (37-47); Hemoglobin 9.7 g/dL (12.0-16.0)
--- NOTE | 2020-10-02 07:05 | Electrocardiogram Report ---
Test Reason : Blood Pressure : / mmHG Vent. Rate : 083 BPM Atrial Rate : 083 BPM P-R Int : 150 ms QRS Dur : 078 ms QT Int : 410 ms P-R-T Axes : 071 006 036 degrees QTc Int : 481 ms Normal sinus rhythm Possible Left atrial enlargement Septal infarct , age undetermined Nonspecific T wave abnormality Prolonged QT Abnormal ECG When compared with ECG of 25-SEP-2020 17:35, T wave amplitude has decreased in Inferior leads QT has lengthened Confirmed by Clay Griffin ([id number]) on 10/02/2020 7:05:17 AM Referred By: REFERRED SELF Confirmed By:Clay Griffin
[2020-10-02 07:08] LABS: BUN Creatinine Ratio 8.5 (10-20); Calcium 8.6 mg/dl (8.5-10.1); Creatinine Clr Calc Pharmacy 9.6 ml/min; Est GFR (African American) 9.7; Est GFR (Non-African American) 8.4; Magnesium 2.4 mg/dl (1.8-2.4); Potassium 4.7 mmol/L (3.5-5.1)
[2020-10-02 07:20] LABS: Beta-Hydroxybutyrate 6.22 mg/dl (0.2-2.81)
[2020-10-02] MEDS: INSULIN ASPART 100 UNITS/ML 3 ML PEN SC SCH ×4 (07:58→20:39)
[2020-10-02] MEDS: METOCLOPRAMIDE HCL 5 MG TABLET PO SCH ×3 (07:59→17:08)
[2020-10-02] MEDS: CALCIUM ACETATE 667 MG CAP/TAB PO SCH ×3 (07:59→17:07)
[2020-10-02] MEDS: SEVELAMER HCL 800 MG TABLET PO SCH ×3 (08:00→17:08)
[2020-10-02] MEDS: levETIRAcetam 500 MG TAB PO SCH ×2 (08:01→20:39)
[2020-10-02] MEDS: SUCRALFATE 1 GM/10 ML UDC PO SCH ×2 (08:01→20:39)
[2020-10-02] MEDS: ADVANCED PROBIOTIC 1250 MG CAPSULE PO SCH (08:01)
[2020-10-02] MEDS: PANTOprazole 40 MG TAB PO SCH (08:01)
[2020-10-02] MEDS: POLYETHYLENE (MIRALAX) 17 GM PACK PO SCH ×2 (08:02→20:39)
[2020-10-02] MEDS: busPIRone 5 MG TAB PO SCH ×3 (09:04→20:39)
--- NOTE | 2020-10-02 09:34 | Nephrology Progress Note ---
Date of Service October 02, 2020 Assessment & Plan (1) End-stage renal disease (ESRD): Patient with ESRD on dialysis Saturday. Last outpatient dialysis was on . Electrolytes are stable and no signs of volume overload. Given recent fluctuations in her blood pressure and seizure-like activity, I will hold off dialysis today. Patient can go several days without dialysis. We will plan dialysis on Saturday and unless clinical situation changes. We will plan 3.5-hour dialysis tomorrow (2) Hypoglycemia: Patient with diabetes and frequent admissions for hyperglycemia or hypoglycemia. Blood sugar is high this morning. Continue management per primary team. She will need adjustment in her insulin (3) Seizure-like activity: Continue Keppra. No seizures today. We will hold off dialysis today. (4) Hypertension: Patient had labile blood pressures on admission but blood pressure is controlled now. Continue amlodipine 2.5 mg daily. Admission and Anticipated Discharge Date Admission Date: September 30, 2020 Subjective Seen in follow-up for ESRD. She feels better today. No vomiting. No shortness of breath. Blood sugar is now high. Review of Systems Review of Systems: All systems reviewed & are unremarkable except as noted in HPI & below Physical Exam Physical Exam: General exam: Appears comfortable, no acute distress HEENT: Pupils are equal and reactive to light Neck: No JVD, neck is supple trachea is midline Respiratory system: Clear breath sounds bilaterally. Gastrointestinal: Abdomen is soft, non distended, non tender, bowel sounds are present CVS: Regular rate and rhythm. No murmurs, rubs or gallops Musculoskeletal: No joint or muscle tenderness Extremities: Non tender, no edema, peripheral pulses are present Neuro: Oriented, no tremors, no focal neurological deficits Skin: No rashes Access: Right upper arm AV fistula with good bruit Results & Data ([facility]) Vital Signs (Past 12 Hours) Vital Signs Temp Pulse Pulse Resp BP Pulse Ox 10/02/20 07:28 36.6 C 78 20 149/73 H 97 10/02/20 03:58 36.9 C 75 16 152/68 H 99 10/01/20 22:26 36.5 C 66 16 130/66 94 Laboratory Results 10/02/20 05:18 (1) Hypertension Hypertension type: essential hypertension Qualified Code(s): I10 - Essential (primary) hypertension
[2020-10-02] MEDS ORDERED: INSULIN GLARGINE SOLOSTAR 100 UNITS/ML 3 ML PEN SC SCH (11:30)
[2020-10-02] MEDS ORDERED: bisacodyL 10 MG SUPP PR PRN (11:34)
[2020-10-02] MEDS ORDERED: INSULIN GLARGINE SOLOSTAR 100 UNITS/ML 3 ML PEN SC STA (11:55)
[2020-10-02] MEDS ORDERED: INSULIN HUMAN REGULAR PER UNIT 6 UNITS in SYRINGE 5.94 ML IV STA (11:56)
[2020-10-02 12:32] LABS: Beta-Hydroxybutyrate 6.68 mg/dl (0.2-2.81)
[2020-10-02] MEDS: ACETAMINOPHEN 325 MG TAB PO PRN (13:36)
[2020-10-02] MEDS ORDERED: INSULIN HUMAN REGULAR IV BOLUS 5 UNITS in SYRINGE 0 ML IV ONE (16:30)
[2020-10-02] MEDS ORDERED: INSULIN REGULAR 250 UNITS in SODIUM CHLORIDE 0.9% 247.5 ML IV SCH (16:30)
[2020-10-02] MEDS ORDERED: INSULIN HUMAN REGULAR PER UNIT 6 UNITS in SYRINGE 5.94 ML IV ONE (16:30)
[2020-10-02 17:25] LABS: Beta-Hydroxybutyrate 16.21 mg/dl (0.2-2.81)
--- NOTE | 2020-10-02 18:37 | Hospitalist Progress Note ---
Date of Service October 02, 2020 Assessment & Plan (1) Hypertensive crisis: Gastroparesis Constipation Proctocolitis secondary to above -CT ABD:Findings suggest a mild nonspecific proctocolitis. Mild to moderate fecal retention is noted throughout the colon. -Check stool for C. difficile if develops diarrhea -Gastroparesis diet -Continue Reglan -Continue bowel regimen -Appreciate GI input -Tolerating diet Breakthrough seizure History of seizure disorder Likely induced by hypoglycemia Continue Keppra Seizure precautions Hypertension urgency 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 Not on antihypertensives secondary to orthostatic hypotension Plan on low-dose amlodipine Monitoring blood pressure DM Type I Recurrent hypoglycemic episodes leading to multiple ER visits Last HbA1C: 8.1 Continue insulin therapy lean manufacturing specialist consulted Glycemic pharmacist consulted Started on insulin drip, given uncontrolled blood glucose levels Chronic diastolic heart failure No signs of volume overload Monitor volume status ESRD on HD Appreciate nephrology input Hemodialysis as per nephrology Mood disorder at baseline Hypokalemia secondary to GI loses Replace electrolytes as needed DVT Px: Heparin SQ Code Status Full code Admission and Anticipated Discharge Date Admission Date: September 30, 2020 Subjective Patient is seen and examined at bedside States feeling better today Abdominal pain better Denies nausea vomiting Tolerating diet Had a small BM this morning Blood glucose levels uncontrolled-- started on insulin drip Denies chest pain, shortness of breath, dizziness Review of Systems Review of Systems: As per HPI, all 10 systems reviewed, all other ROS negative Physical Exam Physical Exam: Physical Exam: Vitals signs as noted above General Appearance:Thin, no apparent distress Head: normocephalic, Atraumatic Eyes: normal inspection, EOMI Neck: supple, Trachea midline Respiratory/Chest: Normal breath sounds, CTA Cardiovascular: S1, S2, No murmur Abdomen/GI:Soft, mild generalized tenderness, Bowel sounds present Extremities/Musculoskeletal:normal inspection, no edema Neurologic/Psych:AAOX3, grossly no focal neurological deficits Skin: normal color, warm Results & Data Results & Data ([facility]) Vital Signs (Past 12 Hours) Vital Signs Temp Pulse Pulse Resp BP Pulse Ox 10/02/20 15:00 36.9 C 100 H 80 18 154/66 H 93 10/02/20 10:39 36.9 C 89 20 166/69 H 95 10/02/20 08:00 78 10/02/20 07:28 36.6 C 78 20 149/73 H 97 Laboratory Results Short CBC 10/02/20 Range/Units 05:18 Hgb 9.7 L (12.0-16.0) g/dL Hct 28.7 L (37-47) % BMP 10/02/20 10/02/20 10/02/20 05:18 11:50 16:33 Sodium 131 L Potassium 4.7 Chloride 99 Carbon Dioxide 28 BUN 46 H Creatinine 5.42 H* D Glucose 336 H* 690 H* 683 H* Calcium 8.6
[2020-10-02] MEDS: traZODone HCL 50 MG TAB PO PRN (20:37)
[2020-10-02] MEDS: SERTRALINE HCL 50 MG TABLET PO SCH (20:37)
[2020-10-02] MEDS: amLODIPine BESYLATE 5 MG TAB PO SCH (20:37)
[2020-10-02] MEDS: ATORVASTATIN 40 MG TAB PO SCH (20:39)
[2020-10-02] MEDS: TEMAZEPAM 15 MG CAPSULE PO SCH (20:39)
[2020-10-02] MEDS: lamoTRIgine 25 MG TAB PO SCH (20:39)
[2020-10-02] MEDS: MELATONIN 3 MG TAB PO SCH (20:39)
[2020-10-02] MEDS: ARIPiprazole 5 MG TAB PO SCH (20:39)
[2020-10-02] MEDS: BENZTROPINE MESYLATE 0.5 MG TAB PO SCH (20:39)
[2020-10-03] MEDS: HEPARIN SOD 5,000 UNIT/0.5 ML VIAL SQ SCH ×3 (05:59→21:08)
[2020-10-03] MEDS: ACETAMINOPHEN 325 MG TAB PO PRN ×2 (06:02→11:36)
[2020-10-03 06:38] LABS: Hematocrit (blood only) 27.3 % (37-47); Hemoglobin 9.5 g/dL (12.0-16.0)
[2020-10-03] MEDS ORDERED: EPOETIN ALFA 4,000 UNIT/ML VIAL IV ONE (07:00)
[2020-10-03] MEDS ORDERED: SODIUM CHLORIDE 0.9% 1000ML 1,000 ML IV PRN (07:00)
[2020-10-03] MEDS ORDERED: HEPARIN SOD (PORCINE) 1000 UNIT/ML IV ONE (07:00)
[2020-10-03 07:21] LABS: BUN Creatinine Ratio 9.9 (10-20); Calcium 8.8 mg/dl (8.5-10.1); Est GFR (Non-African American) 7.8; Potassium 4.5 mmol/L (3.5-5.1)
[2020-10-03] MEDS ORDERED: INSULIN GLARGINE SOLOSTAR 100 UNITS/ML 3 ML PEN SC STA (07:35)
[2020-10-03] MEDS: INSULIN ASPART 100 UNITS/ML 3 ML PEN SC SCH ×5 (07:39→23:11)
[2020-10-03] MEDS: CALCIUM ACETATE 667 MG CAP/TAB PO SCH ×3 (07:42→16:34)
[2020-10-03] MEDS: METOCLOPRAMIDE HCL 5 MG TABLET PO SCH ×3 (07:42→16:34)
[2020-10-03] MEDS: SEVELAMER HCL 800 MG TABLET PO SCH ×3 (07:42→16:34)
[2020-10-03] MEDS: SUCRALFATE 1 GM/10 ML UDC PO SCH ×2 (08:03→21:08)
[2020-10-03] MEDS: POLYETHYLENE (MIRALAX) 17 GM PACK PO SCH ×2 (08:03→20:40)
[2020-10-03] MEDS: busPIRone 5 MG TAB PO SCH ×3 (08:03→20:41)
[2020-10-03] MEDS: PANTOprazole 40 MG TAB PO SCH (08:03)
[2020-10-03] MEDS: levETIRAcetam 500 MG TAB PO SCH ×2 (08:03→20:42)
[2020-10-03] MEDS: ADVANCED PROBIOTIC 1250 MG CAPSULE PO SCH (08:03)
[2020-10-03] MEDS: HEPARIN SOD (PORCINE) 1000 UNIT/ML IV SCH ×3 (09:55→10:31)
--- NOTE | 2020-10-03 10:45 | Progress Notes ---
DATE: 10/03/2020 NEPHROLOGY DIALYSIS NOTE SUBJECTIVE: The patient was seen during dialysis today and so far, she is tolerating it very well. Denies any acute complaints. AV fistula was working fine. OBJECTIVE: VITAL SIGNS: Blood pressure is 101/65, 100% on room air. HEENT: Mucous membranes moist. NECK: Supple. No jugular venous distention. CHEST: Bilateral clear to auscultation. CARDIOVASCULAR: S1, S2 regular. ABDOMEN: Soft, nontender. EXTREMITIES: Shows no edema. LABORATORY TESTS: Reviewed and shows sodium 134, potassium 4.5, BUN 57, creatinine 5.77, hemoglobin is 9.5. ASSESSMENT AND PLAN: The patient is a 50-year-old female with type 1 diabetes and ESRD on chronic hemodialysis Saturday, , Saturday, admitted with hypoglycemia and seizure-like activity. 1. End-stage renal disease: She is getting dialysis as I speak without any problem. We will finish the prescription as prescribed about 1 kilo of fluid will be removed. No major electrolyte issue at this time. Her next dialysis will be on . She usually can go a day or 2 extra without dialysis as she still has pretty significant residual kidney function. 2. Hyperglycemia and seizure-like activity as per primary team.
--- NOTE | 2020-10-03 11:13 | Gastroenterology Progress Note ---
Date of Service October 03, 2020 Assessment & Plan (1) Gastroparesis: (2) Constipation: (3) Abdominal pain: Pt is a 50 yo female followed for nausea, vomiting, abd pain which appears to be chronic. Hx of gastroparesis. CT abd/pelvis w/o signs of obstruction but does appear constipated - Continue Reglan 5mg BID; recommend not using this med for halfway given risk for tardive dyskinesia - Continue PPI - Bowel regimen such as with Miralax 17g daily to BID - GI to sign off; pls recall prn Admission and Anticipated Discharge Date Admission Date: September 30, 2020 Supervising Physician Co-Signing Physician Notes I have seen and examined the patient and discussed the management with AMERICA Gillis. 50 yo fm with a history of dialysis, diabetes with gastroparesis, seen by GI over the weekend (coverage by [facility]) She is in dialysis this am without acute complaints Agree with plan of low residue, low fiber diet with small frequent meals, reglan tid for short terms, miralax bid. Subjective Pt at dialysis unit. She reports having abdominal pain, no n/v, is moving bowels Review of Systems Review of Systems: All systems reviewed & are unremarkable except as noted in HPI & below Physical Exam Constitutional: WD/WN, vitals as above well groomed, cooperative and comfortable Eyes: PERRL, conjunctivae normal, anicteric sclerae ENMT: external ear and nose normal, oropharynx normal Respiratory: normal respiratory effort, lungs clear to auscultation Cardiovascular: RRR, no murmur, no edema Gastrointestinal (Abdomen): normal bowel sounds, soft, nontender, no hepatosplenomegaly Skin: no rashes, warm and dry no jaundice Neurologic: Motor/Sensory: no asterixis Psychiatric: A+Ox3, euthymic affect Lymphatic: no lymphedema Results & Data ([facility]) Vital Signs (Past 12 Hours) Vital Signs Temp Pulse Pulse Pulse Pulse Resp BP 10/03/20 11:00 73 138/62 10/03/20 10:40 76 149/65 H 10/03/20 10:34 79 132/64 10/03/20 10:00 97 H 101/65 10/03/20 09:40 81 140/63 10/03/20 09:23 81 149/74 H 10/03/20 09:18 37.1 C 87 10/03/20 08:00 36.7 C 85 18 10/03/20 03:30 36.8 C 73 19 10/03/20 00:01 36.8 C 71 18 BP Pulse Ox 10/03/20 11:00 10/03/20 10:40 10/03/20 10:34 10/03/20 10:00 10/03/20 09:40 10/03/20 09:23 10/03/20 09:18 10/03/20 08:00 118/60 100 10/03/20 03:30 135/68 95 10/03/20 00:01 128/64 96 (1) Abdominal pain Abdominal location: unspecified location Qualified Code(s): R10.9 - Unspecified abdominal pain
--- NOTE | 2020-10-03 11:14 | Pharmacy Report ---
Pharmacy Glycemic Short Note 2 - Date of Service October 03, 2020 - Glycemic Short BSG Results (Last 24 hours): 10/02/20 10/02/20 10/02/20 11:23 11:24 11:50 Glucose 690 H* POC Glucose > 600 H* > 600 H* 10/02/20 10/02/20 10/02/20 13:33 15:56 15:58 Glucose POC Glucose 584 H* > 600 H* > 600 H* 10/02/20 10/02/20 10/02/20 16:33 18:49 19:44 Glucose 683 H* POC Glucose 585 H* 467 H* 10/02/20 10/02/20 10/02/20 20:45 21:44 22:41 Glucose POC Glucose 368 H* 257 H 151 H 10/03/20 10/03/20 10/03/20 00:20 00:41 01:03 Glucose POC Glucose 67 L* 56 L* 200 H 10/03/20 10/03/20 10/03/20 02:06 03:04 04:17 Glucose POC Glucose 164 H 137 H 86 10/03/20 10/03/20 10/03/20 04:50 06:26 06:56 Glucose 256 H POC Glucose 82 306 H* 10/03/20 06:58 Glucose POC Glucose 326 H* OUTPATIENT ANTIDIABETIC REGIMEN: * Lantus 12 units SC HS * Admelog 7 units SC w/ meals * HbA1c = 8.1% (07/29/20) ASSESSMENT: 10/03: * Patient received a total of 116 units of insulin yesterday (significantly more than she has every received inpatient) * 20 units of Lantus + 116 units between Novolog, IV insulin boluses and IV insulin infusion * BSGs were erratic and unpredictable over the past 24 hours: [phone]->[phone] mg/dL * Believe AM BSG was elevated yesterday from basal deficiency. She continued to increase throughout the day. * Despite Lantus and aggressive Novolog and IV insulin bolus, patient was started on an insulin infusion which ran from 1730 last night to 0430 this morning. * Patient was hypoglycemic on insulin infusion around midnight for which she received an amp of D50 and 15 g of CHO * Fasting BSG was elevated again this mornin mg/dL with recheck of 326 m g/dL * This is likely due to overcorrection of hypoglycemia * Patient is scheduled for hemodialysis today which may help with glucose control for the time being * Will give Lantus and Novolog prior to her leaving for dialysis this AM * Postdialysis BSG was 122 mg/dL, well controlled * Further Lantus dosing to be determined at HS 10/01: * 50 yo F admitted last evening secondary to abdominal pain and vomiting. Pharmacy was consulted this AM for assistance with inpatient glycemic management. Patient well known to glycemic service. * Upon admission to ED, patient's BSG was 28 mg/dL and dropped to 21 mg/dL at one point. She was treated with 1 amp of D50 plus 40 grams of CHO (via 10 glucose tablets). * Spoke with attending this AM. Questionable 30 minutes of seizure-like activity with hypoglycemic event last evening so plan is to be conservative with both insulin dosing and goal range for the time being. * Following treatment, BSGs trended upwards nicely: 75-124 mg/dL. * Starting at midnight, BSGs drastically increased: 324-342-355 mg/dL. * She received a total of 10 units of Lantus and 12 units of Novolog this AM. * Will adjust carb ratio slightly this morning for hyperglycemia. Will hold off on any further basal insulin at this time. * Will start to transition back to home basal dosing tomorrow at lunchtime PLAN FOR INPATIENT GLYCEMIC CONTROL: * Basal insulin * Lantus 12 units SC x 1 prior to HD this morning * Possible small dose of Lantus at HS depending on BSG * Bolus insulin * NovoLog per scale ACHS or Q6hrs while NPO * Goal Range: Low 140 mg/dL - High 180 mg/dL * Correction Factor: 20 mg/dL/unit * Nutritional / Prandial insulin per carb ratio of 1 unit per 7 grams CHO consumed PLAN FOR DISCHARGE: * To be determined
--- NOTE | 2020-10-03 17:23 | Hospitalist Progress Note ---
Date of Service October 03, 2020 Assessment & Plan (1) Hypertensive crisis: Gastroparesis Constipation Proctocolitis secondary to above -CT ABD:Findings suggest a mild nonspecific proctocolitis. Mild to moderate fecal retention is noted throughout the colon. -Check stool for C. 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 Not on antihypertensives secondary to orthostatic hypotension BP Variable likely due to pain Continue amlodipine Monitoring blood pressure DM Type I Recurrent hypoglycemic episodes leading to multiple ER visits Last HbA1C: 8.1 Continue insulin therapy hospital educator consulted Glycemic pharmacist consulted Started on insulin drip, given uncontrolled blood glucose levels Chronic diastolic heart failure No signs of volume overload Monitor volume status ESRD on HD Appreciate nephrology input Hemodialysis as per nephrology Mood disorder at baseline Hypokalemia secondary to GI loses Replace electrolytes as needed DVT Px: Heparin SQ Code Status Full code Admission and Anticipated Discharge Date Admission Date: September 30, 2020 Subjective Patient is seen and examined at bedside Had Hemodialysis earlier today States having abdominal pain but denies any nausea vomiting Tolerating diet No new complaints Denies chest pain, shortness of breath, dizziness Review of Systems Review of Systems: All systems reviewed & are unremarkable except as noted in HPI & below Physical Exam Physical Exam: Physical Exam: Vitals signs as noted above General Appearance:Thin, no apparent distress Head: normocephalic, Atraumatic Eyes: normal inspection, EOMI Neck: supple, Trachea midline Respiratory/Chest: Normal breath sounds, CTA Cardiovascular: S1, S2, No murmur Abdomen/GI:Soft, mild generalized tenderness, Bowel sounds present Extremities/Musculoskeletal:normal inspection, no edema Neurologic/Psych:AAOX3, grossly no focal neurological deficits Skin: normal color, warm Results & Data Results & Data ([facility]) Vital Signs (Past 12 Hours) Vital Signs Temp Pulse Pulse Pulse Resp BP BP 10/03/20 15:13 37.1 C 79 20 155/64 H 10/03/20 13:15 37.1 C 84 144/64 H 10/03/20 12:54 75 113/75 10/03/20 12:20 80 153/68 H 10/03/20 12:00 83 144/68 H 10/03/20 11:40 78 144/73 H 10/03/20 11:20 74 160/73 H 10/03/20 11:00 73 138/62 10/03/20 10:40 76 149/65 H 10/03/20 10:34 79 132/64 10/03/20 10:00 97 H 101/65 10/03/20 09:40 81 140/63 10/03/20 09:23 81 149/74 H 10/03/20 09:18 37.1 C 87 10/03/20 08:00 36.7 C 85 18 118/60 Pulse Ox 10/03/20 15:13 97 10/03/20 13:15 10/03/20 12:54 10/03/20 12:20 10/03/20 12:00 10/03/20 11:40 10/03/20 11:20 10/03/20 11:00 10/03/20 10:40 10/03/20 10:34 10/03/20 10:00 10/03/20 09:40 10/03/20 09:23 10/03/20 09:18 10/03/20 08:00 100 Laboratory Results Short CBC 10/03/20 Range/Units 06:26 Hgb 9.5 L (12.0-16.0) g/dL Hct 27.3 L (37-47) % BMP 10/03/20 06:26 Sodium 134 L Potassium 4.5 Chloride 101 Carbon Dioxide 24 BUN 57 H Creatinine 5.77 H* D Glucose 256 H Calcium 8.8
[2020-10-03] MEDS: amLODIPine BESYLATE 5 MG TAB PO SCH (20:39)
[2020-10-03] MEDS: lamoTRIgine 25 MG TAB PO SCH (20:40)
[2020-10-03] MEDS: ARIPiprazole 5 MG TAB PO SCH (20:40)
[2020-10-03] MEDS: BENZTROPINE MESYLATE 0.5 MG TAB PO SCH (20:41)
[2020-10-03] MEDS: ATORVASTATIN 40 MG TAB PO SCH (20:41)
[2020-10-03] MEDS: SERTRALINE HCL 50 MG TABLET PO SCH (20:42)
[2020-10-03] MEDS: TEMAZEPAM 15 MG CAPSULE PO SCH (20:46)
[2020-10-03] MEDS: traZODone HCL 50 MG TAB PO PRN (20:46)
[2020-10-03] MEDS: MELATONIN 3 MG TAB PO SCH (20:46)
[2020-10-04] MEDS: INSULIN ASPART 100 UNITS/ML 3 ML PEN SC SCH ×5 (03:58→21:14)
[2020-10-04] MEDS: HEPARIN SOD 5,000 UNIT/0.5 ML VIAL SQ SCH ×3 (06:18→21:12)
[2020-10-04 06:32] LABS: Hematocrit (blood only) 28.3 % (37-47); Hemoglobin 9.6 g/dL (12.0-16.0); Mean Corpuscular Hemoglobin 29.8 pg (25-34); Mean Corpuscular Hgb Conc 33.9 g/dL (32-36); Mean Corpuscular Volume 87.9 fL (80-100); Mean Platelet Volume 9.9 fL (7.4-10.4); Platelet Count 293 K/uL (130-400); RDW Standard Deviation 45.4 fL (36.4-46.3); Red Blood Count 3.22 M/uL (4.2-5.4); White Blood Count 3.64 K/uL (4.8-10.8)
[2020-10-04 07:12] LABS: BUN Creatinine Ratio 7.1 (10-20); Calcium 9.1 mg/dl (8.5-10.1); Creatinine Clr Calc Pharmacy 13.7 ml/min; Est GFR (Non-African American) 12.9; Potassium 3.9 mmol/L (3.5-5.1)
[2020-10-04] MEDS: CALCIUM ACETATE 667 MG CAP/TAB PO SCH ×3 (07:31→16:24)
[2020-10-04] MEDS: METOCLOPRAMIDE HCL 5 MG TABLET PO SCH ×3 (07:31→16:24)
[2020-10-04] MEDS: SEVELAMER HCL 800 MG TABLET PO SCH ×3 (07:31→16:24)
[2020-10-04] MEDS ORDERED: INSULIN GLARGINE SOLOSTAR 100 UNITS/ML 3 ML PEN SC SCH (09:00)
[2020-10-04] MEDS: ADVANCED PROBIOTIC 1250 MG CAPSULE PO SCH (09:19)
[2020-10-04] MEDS: levETIRAcetam 500 MG TAB PO SCH ×2 (09:20→21:11)
[2020-10-04] MEDS: busPIRone 5 MG TAB PO SCH ×3 (09:20→21:10)
[2020-10-04] MEDS: PANTOprazole 40 MG TAB PO SCH (09:20)
[2020-10-04] MEDS: POLYETHYLENE (MIRALAX) 17 GM PACK PO SCH ×2 (09:20→21:14)
[2020-10-04] MEDS: SUCRALFATE 1 GM/10 ML UDC PO SCH ×2 (09:21→21:12)
[2020-10-04] MEDS ORDERED: INSULIN HUMAN REGULAR PER UNIT 5 UNITS in SYRINGE 4.95 ML IV ONE (12:15)
[2020-10-04] MEDS: ACETAMINOPHEN 325 MG TAB PO PRN (13:26)
--- NOTE | 2020-10-04 14:33 | Pharmacy Report ---
Pharmacy Glycemic Short Note 2 - Date of Service October 04, 2020 - Glycemic Short BSG Results (Last 24 hours): 10/03/20 10/03/20 10/03/20 16:27 20:08 20:09 Glucose POC Glucose 76 309 H* 304 H* 10/03/20 10/04/20 10/04/20 23:10 03:57 05:37 Glucose 179 H POC Glucose 218 H 215 H 10/04/20 10/04/20 10/04/20 07:32 07:33 08:06 Glucose POC Glucose 403 H* 402 H* 315 H* 10/04/20 10/04/20 10/04/20 11:49 11:50 14:10 Glucose POC Glucose > 600 H* 396 H* 341 H* OUTPATIENT ANTIDIABETIC REGIMEN: * Lantus 12 units SC HS * Admelog 7 units SC w/ meals * HbA1c = 8.1% (07/29/20) ASSESSMENT: 10/04: * Patient received total of 38 units of insulin yesterday, of which 12 units were basal * Fasting BSG 179 mg/dL on lab draw, point of care test 400? Had nurse recheck - however second check was done on the same finger with initial fingerstick. Therefore, had nurse recheck again on different finger and after patient ate BSG was 315 mg/dL. Unclear why recheck now lower even after eating. Had nurse use the 179 mg/dL to cover insulin needs for AM * Lunch BSG trending up - will give IV bolus and tighten novolog 10/03: * Patient received a total of 116 units of insulin yesterday (significantly more than she has every received inpatient) * 20 units of Lantus + 116 units between Novolog, IV insulin boluses and IV insulin infusion * BSGs were erratic and unpredictable over the past 24 hours: [phone]->[phone] mg/dL * Believe AM BSG was elevated yesterday from basal deficiency. She continued to increase throughout the day. * Despite Lantus and aggressive Novolog and IV insulin bolus, patient was started on an insulin infusion which ran from 1730 last night to 0430 this morning. * Patient was hypoglycemic on insulin infusion around midnight for which she received an amp of D50 and 15 g of CHO * Fasting BSG was elevated again this mornin mg/dL with recheck of 326 mg/dL * This is likely due to overcorrection of hypoglycemia * Patient is scheduled for hemodialysis today which may help with glucose control for the time being * Will give Lantus and Novolog prior to her leaving for dialysis this AM * Postdialysis BSG was 122 mg/dL, well controlled * Further Lantus dosing to be determined at HS PLAN FOR INPATIENT GLYCEMIC CONTROL: * Basal insulin * Lantus 16 x 1 (~33% increase to day prior) * Possible small dose of Lantus at HS depending on BSG * Bolus insulin * NovoLog per scale ACHS or Q6hrs while NPO * Goal Range: Low 140 mg/dL - High 180 mg/dL * Correction Factor: 20 mg/dL/unit * Nutritional / Prandial insulin per carb ratio of 1 unit per 7 grams CHO consumed PLAN FOR DISCHARGE: * To be determined
[2020-10-04] MEDS: SERTRALINE HCL 50 MG TABLET PO SCH (21:10)
[2020-10-04] MEDS: ARIPiprazole 5 MG TAB PO SCH (21:11)
[2020-10-04] MEDS: amLODIPine BESYLATE 5 MG TAB PO SCH (21:11)
[2020-10-04] MEDS: lamoTRIgine 25 MG TAB PO SCH (21:11)
[2020-10-04] MEDS: ATORVASTATIN 40 MG TAB PO SCH (21:11)
[2020-10-04] MEDS: BENZTROPINE MESYLATE 0.5 MG TAB PO SCH (21:11)
[2020-10-04] MEDS: TEMAZEPAM 15 MG CAPSULE PO SCH (21:19)
[2020-10-04] MEDS: MELATONIN 3 MG TAB PO SCH (21:19)
[2020-10-04] MEDS: traZODone HCL 50 MG TAB PO PRN (21:19)
[2020-10-05] MEDS: INSULIN ASPART 100 UNITS/ML 3 ML PEN SC SCH ×5 (00:22→16:57)
[2020-10-05] MEDS: HEPARIN SOD 5,000 UNIT/0.5 ML VIAL SQ SCH ×2 (06:15→11:48)
[2020-10-05 06:37] LABS: Hematocrit (blood only) 27.8 % (37-47); Hemoglobin 9.6 g/dL (12.0-16.0)
[2020-10-05 07:19] LABS: BUN Creatinine Ratio 8.9 (10-20); Calcium 8.9 mg/dl (8.5-10.1); Creatinine Clr Calc Pharmacy 10.6 ml/min; Est GFR (African American) 10.9; Est GFR (Non-African American) 9.4; Potassium 4.2 mmol/L (3.5-5.1)
[2020-10-05] MEDS: ACETAMINOPHEN 325 MG TAB PO PRN (07:37)
[2020-10-05] MEDS: levETIRAcetam 500 MG TAB PO SCH (07:38)
[2020-10-05] MEDS: SEVELAMER HCL 800 MG TABLET PO SCH ×3 (07:38→16:58)
[2020-10-05] MEDS: CALCIUM ACETATE 667 MG CAP/TAB PO SCH ×3 (07:38→16:58)
[2020-10-05] MEDS: busPIRone 5 MG TAB PO SCH ×2 (07:38→11:48)
[2020-10-05] MEDS: POLYETHYLENE (MIRALAX) 17 GM PACK PO SCH (07:39)
[2020-10-05] MEDS: SUCRALFATE 1 GM/10 ML UDC PO SCH (07:39)
[2020-10-05] MEDS: PANTOprazole 40 MG TAB PO SCH (07:39)
[2020-10-05] MEDS: ADVANCED PROBIOTIC 1250 MG CAPSULE PO SCH (07:39)
[2020-10-05] MEDS: METOCLOPRAMIDE HCL 5 MG TABLET PO SCH ×3 (07:51→16:58)
[2020-10-05] MEDS ORDERED: INSULIN GLARGINE SOLOSTAR 100 UNITS/ML 3 ML PEN SC SCH ×2 (08:00)
[2020-10-05 08:37] LABS: 7-Aminoclonaz, Confirm NEGATIVE ng/mL (<25); Codeine Urine NEGATIVE ng/mL (<50); Hydro-Alp Ur, GC/MS NEGATIVE ng/mL (<25); Hydrocodone Urine 151 ng/mL (<50); Hydromor Urine NEGATIVE ng/mL (<50); Hydroxyethylflurazepam, Conf NEGATIVE ng/mL (<50); Hydroxymidazolam Ur, GC/MS NEGATIVE ng/mL (<50); Hydroxytriazolam NEGATIVE ng/mL (<50); Lorazepam, Ur GC/MS NEGATIVE ng/mL (<50); MDA negative; MDEA negative; MDMA (Ecstasy) Urine, Confirm negative; Morphine Urine NEGATIVE ng/mL (<50); Nordiazepam, Confirm NEGATIVE ng/mL (<50); Norhydrocodone Conf Ur 423 ng/mL (<50); Noroxycodone Urine NEGATIVE ng/mL (<50); Oxazepam Ur, GC/MS 1870 ng/mL (<50); Oxycodone Urine NEGATIVE ng/mL (<50); Oxymorph Urine NEGATIVE ng/mL (<50); Temazepam, Confirm >2000 ng/mL (<50)
--- NOTE | 2020-10-05 12:00 | Hospitalist Progress Note ---
Date of Service October 05, 2020 Assessment & Plan (1) Hypertensive crisis: Gastroparesis Constipation Proctocolitis secondary to above -CT ABD:Findings suggest a mild nonspecific proctocolitis. Mild to moderate fecal retention is noted throughout the colon. -Check stool for C. 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 Not on antihypertensives secondary to orthostatic hypotension BP Variable likely due to pain Continue amlodipine Monitoring blood pressure DM Type I Recurrent hypoglycemic episodes leading to multiple ER visits Last HbA1C: 8.1 Continue insulin therapy extension educator consulted Glycemic pharmacist consulted Chronic diastolic heart failure No signs of volume overload Monitor volume status ESRD on HD Appreciate nephrology input Hemodialysis as per nephrology Mood disorder at baseline Hypokalemia secondary to GI loses Replace electrolytes as needed DVT Px: Heparin SQ Code Status Full code Labs Checked DC in 1-2 days until BS regimen established ROS-No Headache, No Visual Changes, No Nausea, No Vomiting, No Fever, No Chills, No Neck Pain or Stiffness, No Chest Pain, No Palpitations, No SOB, No BOSWELL, No C ough, No Sputum, No Wheezing, Mild Chronic Abdominal Pain, No Diarrhea, No Hematemesis, No Hemoptysis, No Unexpected Weight Loss, No Flank pain, No Melena, No Hematochezia, No Frequency, No Urgency, No Burning, No Hematuria, No Rashes, No Diaphoresis. Appetite is Normal Physical Exam Gen-AAO x 3, NAD, Afebrile Head-NCAT, EOMI, PERRLA, Anicteric Sclera, No Posterior Pharyngeal Erythema Neck-Supple, No JVD, No Thyromegaly, No Masses, No LAD, No Bruits Lungs-Clear to Auscultation Bilaterally, No Rales, No Rhonchi, No Wheezing, No Crepitus Chest-No S4, +S1, +S2, No S3, No Murmurs, No Rubs, No Gallops, No Ectopy Abdomen-Soft, Bowel Sounds Present, Non Tender, Non Distended, No Hepatomegaly, No Splenomegaly, No Palpable Masses, No Rebound, No Rigidity, No Guarding Musculoskeletal-Full Range of Motion Bilaterally, No CVAT Extremities-No Cyanosis, No Clubbing, No Edema Nuero-Cranial Nerves II-XII grossly intact, Motor WNL, DTRs WNL, Strength WNL, Non Focal Psych-Normal Mood Admission and Anticipated Discharge Date Admission Date: September 30, 2020 Results & Data Results & Data ([facility]) Vital Signs (Past 12 Hours) Vital Signs Temp Pulse Pulse Resp BP Pulse Ox 10/05/20 08:00 37.0 C 76 16 169/72 H 97 10/05/20 03:50 36.6 C 67 18 153/70 H 100
--- NOTE | 2020-10-05 13:22 | Pharmacy Report ---
Pharmacy Glycemic Short Note 2 - Date of Service October 05, 2020 - Glycemic Short BSG Results (Last 24 hours): 10/04/20 10/04/20 10/04/20 14:10 16:08 21:13 Glucose POC Glucose 341 H* 183 H 91 10/05/20 10/05/20 10/05/20 00:08 04:14 06:13 Glucose 185 H POC Glucose 195 H 170 H 10/05/20 10/05/20 07:37 11:06 Glucose POC Glucose 273 H 197 H OUTPATIENT ANTIDIABETIC REGIMEN: * Lantus 12 units SC HS * Admelog 7 units SC w/ meals * HbA1c = 8.1% (07/29/20) ASSESSMENT: 10/05: * Patient received total of 61 units of insulin yesterday, of which 16 units were basal * Lab BSG 185 mg/dL - point of care test 273 mg/dL (drawn 1.5 hrs after) * Increased basal ~25% this AM to 20 units daily, may need to loosen CF/CR with higher basal dosing * Patient tends to have BSG spikes overnight and into AM, could consider retiming basal for HS (similar to home time) 10/04: * Patient received total of 38 units of insulin yesterday, of which 12 units were basal * Fasting BSG 179 mg/dL on lab draw, point of care test 400? Had nurse recheck - however second check was done on the same finger with initial fingerstick. Therefore, had nurse recheck again on different finger and after patient ate BSG was 315 mg/dL. Unclear why recheck now lower even after eating. Had nurse use the 179 mg/dL to cover insulin needs for AM * Lunch BSG trending up - will give IV bolus and tighten novolog 10/03: * Patient received a total of 116 units of insulin yesterday (significantly more than she has every received inpatient) * 20 units of Lantus + 116 units between Novolog, IV insulin boluses and IV insulin infusion * BSGs were erratic and unpredictable over the past 24 hours: [phone]->[phone] mg/dL * Believe AM BSG was elevated yesterday from basal deficiency. She continued to increase throughout the day. * Despite Lantus and aggressive Novolog and IV insulin bolus, patient was started on an insulin infusion which ran from 1730 last night to 0430 this morning. * Patient was hypoglycemic on insulin infusion around midnight for which she received an amp of D50 and 15 g of CHO * Fasting BSG was elevated again this mornin mg/dL with recheck of 326 mg/ dL * This is likely due to overcorrection of hypoglycemia * Patient is scheduled for hemodialysis today which may help with glucose control for the time being * Will give Lantus and Novolog prior to her leaving for dialysis this AM * Postdialysis BSG was 122 mg/dL, well controlled * Further Lantus dosing to be determined at HS PLAN FOR INPATIENT GLYCEMIC CONTROL: * Basal insulin * Lantus 20 x 1 * Possible small dose of Lantus at HS depending on BSG * Bolus insulin * NovoLog per scale ACHS or Q6hrs while NPO * Goal Range: Low 140 mg/dL - High 180 mg/dL * Correction Factor: 20 mg/dL/unit * Nutritional / Prandial insulin per carb ratio of 1 unit per 7 grams CHO consumed PLAN FOR DISCHARGE: * To be determined
--- NOTE | 2020-10-05 19:11 | Discharge Summary ---
Date of Service October 05, 2020 Admission HPI Per Admitting Provider Chief Complaint: Worsening abdominal pain, diarrhea Primary Care Provider: Dr. Anguiano History obtained from patient, family, and records. Medical history significant for chronic diastolic heart failure (EF 74%, DSE 2018), nonocclusive CAD as per records, HTN currently off medication secondary to orthostatic hypotension as per records, history CVA, COPD, hx DM1, ESRD on HD, chronic anemia (baseline hemoglobin 9-10), mood disorder, past tobacco abuse, medication noncompliance as per records, history of seizures as per records, chronic abdominal pain secondary to gastroparesis as per records. Multiple confinements and ER visits at [facility] and [facility] the last few months for chronic abdominal pain and hypoglycemia symptoms. Recent confinement [facility] 3 weeks ago for hyperkalemia secondary to missed dialysis. Recent confinement at [facility] 2 weeks ago for generalized abdominal pain. Patient was seen by GI during confinement. GI symptoms attributed to exacerbation of IBS and diabetic autonomic gastropathy. Persistent achy lower abdominal pain after discharge from hospital as per patient. Poor appetite and hypoglycemic episodes at home as per patient and . Worsening abdominal pain the last 3 days with nausea vomiting and watery diarrhea. No fever, no chills. No chest pain, no S OB. Achy headache symptoms. At the ER, patient noted to have seizure-like activity lasting about a minute as per patient . No confusion, urinary incontinence after episode as per RN. BSG noted to be 20 to 70s during event as per RN. Last seizure was last year as per patient secondary to hypoglycemia. Patient compliant with seizure meds. Medical History as above Hemodialysis, Saturday Surgical History : Vascular procedures, appendectomy, cholecystectomy, BTL, eye surgery, breast lesion excision Family History : Diabetes, breast cancer, heart disease, ovarian cancer, thyroid disease Personal/Social history : Past tobacco abuse, no EtOH intake, disabled Allergies Admission Exam Per Admitting Provider GENERAL: Comfortable, slightly anxious, chronically ill, no respiratory distress SKIN: Pallor, warm HEENT: Pale palpebral conjunctivae, no ptosis, dry buccal mucosa NECK : Supple, no tenderness CHEST : CTA, no tenderness HEART : RRR, no obvious murmurs ABDOMEN: Some distention, hypogastric tenderness EXTREMITIES : No LE swelling/tenderness, no other conspicuous deformities noted NEUROLOGIC : Coherent, no facial asymmetry, no other gross focality Principal Diagnosis Hypertensive crisis: Gastroparesis Constipation Proctocolitis secondary to above Breakthrough seizure History of seizure disorder Hypertension urgency 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 DM Type I Chronic diastolic heart failure ESRD Mood disorder Hypokalemia Discharge Exam See Below Discharge Data Allergies Allergy/AdvReac Type Severity Reaction Status Date / Time Fish Containing Products Allergy Mild Hives Verified 09/25/20 17:35 latex Allergy Mild hives Verified 09/25/20 17:35 shellfish derived Allergy Mild Hives Verified 09/25/20 17:35 Consultations 09/30/20 22:44 ED Decision to Admit Stat 10/01/20 00:58 Consult Nephrology Routine 10/01/20 12:51 Consult Gastroenterology Routine Ordered Studies 09/30/20 21:26 CT head/brain wo con Urgent 10/01/20 12:53 CT abd pelvis wo con Urgent Current Diagnoses Hypoglycemia, unspecified (09/30/20) Essential (primary) hypertension (09/30/20) Hypertensive crisis, unspecified (09/30/20) Gastroparesis (09/30/20) Constipation, unspecified (09/30/20) End stage renal disease (09/30/20) Lower abdominal pain, unspecified (09/30/20) Unspecified abdominal pain (09/30/20) Nausea with vomiting, unspecified (09/30/20) Unspecified convulsions (09/30/20) Allergies Fish Containing Products Allergy (Mild, Verified 09/25/20 17:35) Hives latex Allergy (Mild, Verified 09/25/20 17:35) hives shellfish derived Allergy (Mild, Verified 09/25/20 17:35) Hives Height/Weight/Isolation Height 5 ft 2 in Weight 54.2 kg Chemistry 10/04/20 10/05/20 05:37 06:13 Sodium 135 L 138 Potassium 3.9 4.2 Chloride 101 104 Carbon Dioxide 30 29 Anion Gap 5.0 5.0 BUN 27 H D 44 H D Creatinine 3.79 H D 4.93 H* D Glucose 179 H 185 H Hospital Course (1) Hypertensive crisis: Gastroparesis Constipation Proctocolitis secondary to above -CT ABD:Findings suggest a mild nonspecific proctocolitis. Mild to moderate fecal retention is noted throughout the colon. 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 Not on antihypertensives secondary to orthostatic hypotension BP Variable likely due to pain Continue amlodipine Monitoring blood pressure DM Type I Recurrent hypoglycemic episodes leading to multiple ER visits Last HbA1C: 8.1 Chronic diastolic heart failure No signs of volume overload ESRD on HD Mood disorder at baseline Hypokalemia secondary to GI loses Replace electrolytes as needed DVT Px: Heparin SQ Code Status Full code Labs Checked DC today, HD in AM ROS-No Headache, No Visual Changes, No Nausea, No Vomiting, No Fever, No Chills, No Neck Pain or Stiffness, No Chest Pain, No Palpitations, No SOB, No BOSWELL, No Cough, No Sputum, No Wheezing, Mild Chronic Abdominal Pain, No Diarrhea, No Hematemesis, No Hemoptysis, No Unexpected Weight Loss, No Flank pain, No Melena, No Hematochezia, No Frequency, No Urgency, No Burning, No Hematuria, No Rashes, No Diaphoresis. Appetite is Normal Physical Exam Gen-AAO x 3, NAD, Afebrile Head-NCAT, EOMI, PERRLA, Anicteric Sclera, No Posterior Pharyngeal Erythema Neck-Supple, No JVD, No Thyromegaly, No Masses, No LAD, No Bruits Lungs-Clear to Auscultation Bilaterally, No Rales, No Rhonchi, No Wheezing, No Crepitus Chest-No S4, +S1, +S2, No S3, No Murmurs, No Rubs, No Gallops, No Ectopy Abdomen-Soft, Bowel Sounds Present, Non Tender, Non Distended, No Hepatomegaly, No Splenomegaly, No Palpable Masses, No Rebound, No Rigidity, No Guarding Musculoskeletal-Full Range of Motion Bilaterally, No CVAT Extremities-No Cyanosis, No Clubbing, No Edema Nuero-Cranial Nerves II-XII grossly intact, Motor WNL, DTRs WNL, Strength WNL, Non Focal Psych-Normal Mood Total Time Total Time Spent Total Time Spent (In Minutes): 45 mins Total Time Includes: Examination of the Patient, Discharge Planning, Medication Reconciliation and Communication With Other Providers Discharge Plan Discharge Items Patient Disposition: Home - Self-Care Reason For Visit: HTN CRISIS Discharge Diagnosis: Hypertensive crisis: Gastroparesis Constipation Proctocolitis secondary to above Breakthrough seizure History of seizure disorder Hypertension urgency 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 DM Type I Chronic diastolic heart failure ESRD Mood disorder Hypokalemia Condition on Discharge: Good Activity: Resume your previous activity Lifting: Gradually increase as tolerated Bathing: No limitations Sexual Activity: When tolerated Exercise/Sports: Gradually increase as tolerated Driving/Machine Use: No limitations Weightbearing: Full weightbearing Non-emergency contact: Primary Care Provider, Irrigation Foreman and Hospitality Aide Call non-emergency contact if: you have any medication questions Follow-up/Referrals: Liyah Valle PA-C [Physician Director Of Student Life] - (Date & Time 10/12/2020 2:00 PM Provider Liyah Valle PA-C Department Gastroenterology, [facility] ) Neil Monroe MD [Surgeon] - (First opening) Mitchel Santo MD [Primary Care Provider] - (Date & Time 10/10/2020 12:00 PM Provider Pardeep Anguiano MD Department [facility] ) Diet: Carb Count or DM1 and Dialysis Renal Fluids: 1200ml (5 cups) Addtl Attending Provider Instructions: Eat very small frequent meals Pending Studies at Discharge: No Stand-Alone Forms: My [employer], Smoking Cessation Medications and DC Order Prescriptions: New polyethylene glycol 3350 [Miralax] 17 gram Powder In Packet 17 g PO BID Qty: 60 RF: 0 amlodipine [Norvasc] 5 mg Tablet 2.5 mg PO HS Qty: 30 RF: 0 Lantus Solostar U-100 Insulin 100 unit/mL (3 mL) Insulin Pen 20 unit SC DAILY@0800 Qty: 30 RF: 0 Continued aripiprazole [Abilify] 5 mg tablet 5 mg PO HS RF: 0 atorvastatin [Lipitor] 40 mg tablet 40 mg PO HS RF: 0 trazodone 150 mg tablet 75 mg PO HS PRN (Reason: Sleep) RF: 0 temazepam [Restoril] 15 mg capsule 15 mg PO HS RF: 0 hydroxyzine HCl 25 mg tablet 25 mg PO TID PRN (Reason: Anxiety) RF: 0 trimethobenzamide 300 mg Capsule 300 mg PO TID PRN (Reason: NAUSEA/VOMITING) RF: 0 levetiracetam [Keppra] 500 mg tablet 500 mg PO BID RF: 0 melatonin 3 mg Tablet 3 mg PO HS RF: 0 prochlorperazine maleate 5 mg Tablet 5 mg PO QID PRN (Reason: Nausea) RF: 0 lamotrigine [Lamictal] 25 mg tablet 50 mg PO HS RF: 0 ergocalciferol (vitamin D2) [Vitamin D2] 1,250 mcg (50,000 unit) Capsule 50,000 unit PO FR RF: 0 sertraline [Zoloft] 50 mg tablet 75 mg PO HS RF: 0 insulin lispro [Admelog SoloStar U-100 Insulin] 100 unit/mL Insulin Pen 7 unit SUBCUT TIDM RF: 0 sevelamer carbonate 800 mg Tablet 800 mg PO TIDM RF: 0 benztropine 0.5 mg tablet 0.5 mg PO HS RF: 0 lactulose 10 gram/15 mL Solution 10 g PO BID PRN (Reason: Constipation) Qty: 200 RF: 0 calcium acetate(phosphat bind) 667 mg capsule 667 mg PO TIDM RF: 0 lubiprostone 24 mcg Capsule 24 mcg PO BIDM RF: 0 buspirone 10 mg tablet 10 mg PO TID RF: 0 metoclopramide HCl 5 mg tablet 5 mg PO TID PRN (Reason: Nausea) RF: 0 pantoprazole 40 mg Tablet,Delayed Release (Dr/Ec) 40 mg PO QAM Qty: 30 RF: 0 Linzess 145 mcg Capsule 145 mcg PO QAM Qty: 30 RF: 1 sucralfate 100 mg/mL Suspension 10 ml PO BID 30 Days Qty: 600 RF: 1 Advanced Probiotic 625 mg (10 billion cell) capsule 2 cap PO QAM RF: 0 Discontinued Lantus Solostar U-100 Insulin 100 unit/mL (3 mL) insulin pen 12 unit subcut HS Qty: 15 RF: 0 polyethylene glycol 3350 [Miralax] 17 gram powder in packet 17 g PO QAM RF: 0 Discharge Orders: Discharge Order (Routine); Ordered 10/05/20 Ordered By: Juve Mcgill/Other Patient Handouts: Understanding Diabetic Gastroparesis Admission Data Admit Date/Time: 09/30/20 23:18 Attending Provider: Juve Downs Admit Provider: Pardeep Archer Primary Care Provider: Mitchel Santo Other Providers: Pardeep Archer ; Nahomy Mejias ; Neil Monroe ; Mariela Priest ; Catherine Pacheco ; Stanley Donaldson ; Aman Doyle ; Fredrick Busby ; [facility] Other Interventions: Discharge Summary Assessment (RN) Last Done: 10/05/20 18:48
[2020-10-06] MEDS ORDERED: INSULIN ASPART 100 UNITS/ML 3 ML PEN SC SCH
== END 2020-10-05 19:30 | disposition home health service (06) | DRG 73 ==
LOC: ED 19:41 → 2S 23:18 → SUATTDRO 23:18 → 2S 10-01 01:00

== ENCOUNTER 2020-10-17 22:12 | Observation (INO) ==
[2020-10-17] MEDS ORDERED: DROPERIDOL 5 MG/2 ML VIAL IV STA (22:29)
[2020-10-17] MEDS ORDERED: FAMOTIDINE 20MG/5ML IV PUSH IV STA (22:29)
--- NOTE | 2020-10-17 22:34 | Emergency Department Note ---
History of Present Illness General Chief complaint: Abdominal Pain Stated complaint: ABD PAIN Time Seen by Provider: 10/17/20 22:20 History of Present Illness Maximum Pain Intensity: 8 This 50 yo presents to the ER complaining of abdominal pain and nausea and vomiting Location: Abdomen Quality: Nauseated Severity: Moderate Duration: Past few days Timing: Started a days ago Context: Patient was concerned and came in Modifying factors: better with nothing; worse with activity Patient's been here in [place] multiple times for same complaint. She goes to dialysis Saturday and has not missed. Patient is getting further work-up for her liver problems. She is pending a referral to [place] into the [facility]. Patient denies chest pain, dyspnea, fevers, flulike illness. She still makes urine. Patient states this pain feels similar to her prior ER visits. Home Medications Medication Instructions Recorded Confirmed Type aripiprazole [Abilify] 5 mg PO HS 05/20/19 10/17/20 History levetiracetam [Keppra] 500 mg PO BID 06/20/19 10/17/20 History atorvastatin [Lipitor] 40 mg PO HS 08/01/19 10/17/20 History melatonin 3 mg PO HS 01/29/20 10/17/20 History hydroxyzine HCl 25 mg PO TID PRN 02/20/20 10/17/20 History temazepam [Restoril] 15 mg PO HS 02/20/20 10/17/20 History trazodone 75 mg PO HS PRN 02/20/20 10/17/20 History trimethobenzamide 300 mg PO TID PRN 03/21/20 10/17/20 History benztropine 0.5 mg PO HS 07/27/20 10/17/20 History ergocalciferol (vitamin D2) 50,000 unit PO FR 07/27/20 10/17/20 History [Vitamin D2] insulin lispro [Admelog SoloStar 7 unit SUBCUT TIDM 07/27/20 10/17/20 History U-100 Insulin] lamotrigine [Lamictal] 50 mg PO HS 07/27/20 10/17/20 History sertraline [Zoloft] 75 mg PO HS 07/27/20 10/17/20 History sevelamer carbonate 800 mg PO TIDM 07/27/20 10/17/20 History lactulose 10 g PO BID PRN #200 ml 07/31/20 10/17/20 Rx buspirone 10 mg PO TID 08/16/20 10/17/20 History metoclopramide HCl 5 mg PO TID PRN 08/16/20 10/17/20 History pantoprazole 40 mg PO QAM #30 tab 08/21/20 10/17/20 Rx sucralfate 10 ml PO BID 30 Days #600 ml 08/21/20 10/17/20 Rx lubiprostone 24 mcg PO BIDM 09/09/20 10/17/20 History Advanced Probiotic 2 cap PO QAM 09/25/20 10/17/20 History amlodipine [Norvasc] 2.5 mg PO HS #30 tab 10/05/20 10/17/20 Rx polyethylene glycol 3350 [Miralax] 17 g PO BID #60 ea 10/05/20 10/17/20 Rx insulin glargine [Lantus Solostar 12 unit SC DAILY 10/17/20 10/17/20 History U-100 Insulin] Allergies Allergy/AdvReac Type Severity Reaction Status Date / Time Fish Containing Products Allergy Mild Hives Verified 10/17/20 23:14 latex Allergy Mild hives Verified 10/17/20 23:14 shellfish derived Allergy Mild Hives Verified 10/17/20 23:14 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 history of CVA in 2018 Residual R sided weakness Depression Diabetic gastroparesis Diastolic heart failure DM type 1 (diabetes mellitus, type 1) ESRD (end stage renal disease) on dialysis GERD (gastroesophageal reflux disease) History of GI bleed Hyperlipidemia Hypertension Seizure Surgical History Hx of appendectomy Hx of cholecystectomy Hx of tubal ligation Family History Mother Coronary heart disease Hypertension Father Coronary heart disease Social History Smoking Status: Never smoker Tobacco Type: Cigarettes Second Hand Exposure: No; Hx Alcohol Use: No Hx Substance Use: No Preferred Language: Wallisian Communication Ability: Effective 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 Beliefs That Will Affect Care: None marital status: Life Partner Current Living Situation: Significant Other current occupational status: unemployed Feels Safe at Home: Yes Assistive Devices: None Review of Systems A total of 10 systems reviewed and were otherwise negative Physical Exam Vital Signs Vital Signs - 24 hr 10/17/20 22:15 10/17/20 23:25 Temperature 36.7 C Temperature Source Skin Pulse Rate 66 Pulse Rate [Right Finger] 78 Pulse Rhythm [Right Finger] Regular Pulse Strength [Right Finger] Normal Respiratory Rate 18 14 Respiratory Effort / Characteristics Non-Labored Spontaneous Non-Labored Spontaneous Respiratory Depth Normal Normal Respiratory Pattern Regular Regular Blood Pressure 170/73 H Blood Pressure [Right Arm] 148/63 H Blood Pressure Mean 105 Blood Pressure Mean [Right Arm] 91 Blood Pressure Position Sitting Blood Pressure Position [Right Arm] Lying Pulse Oximetry 99 98 Oxygen Delivery Method Room Air Room Air Sepsis Recent Fever Within 48 Hours No Sepsis New/Unexplained Change in Mental Status N/A Sepsis Action Taken by Nursing No Action Required VITALS: Vitals are noted on the nurse's note and reviewed by myself. Vital signs stable. GENERAL: Pleasant female, in no acute distress, nondiaphoretic, well-developed well-nourished. SKIN: Capillary reflex less than 2 seconds. HEENT: Normocephalic. PERRLA. EOMI. Nares patent. Mucous membranes moist. Neck is supple without nuchal rigidity. HEART: Regular rate and rhythm LUNGS: Clear to auscultation bilaterally without wheezes, rales or rhonchi. No retractions or accessory muscle use. ABDOMEN: Positive bowel sounds x 4. Normal tympanic percussion. Soft, mild diffuse tenderness without localized pain, without masses or organomegaly. Sanches sign negative. No guarding or rebound tenderness. No CVA tenderness MUSCULOSKELETAL: No gross musculoskeletal defects. NEURO: Patient was alert and oriented to person place and time. No focal neurological deficits. Course Administered Medications Discontinued Medications Dextrose (Dextrose 50% 50 Ml Syringe) 50 ml IV NOW ONE Stop: 10/18/20 00:03 Last Admin: 10/18/20 00:09 Dose: 50 ml Documented by: [id number] Droperidol (Droperidol 5 Mg/2 Ml Vial) 1.25 mg IV ONE STA Stop: 10/17/20 22:30 Last Admin: 10/17/20 22:49 Dose: 1.25 mg Documented by: [id number] Famotidine (Famotidine 20mg/5ml Iv Push) 20 mg IV ONE STA Stop: 10/17/20 22:30 Last Admin: 10/17/20 22:51 Dose: 20 mg Documented by: [id number] Medical Decision Making Medical Records Attestation: I reviewed the patient's medical records. Home Medications Current Medication List: was personally reviewed by me Laboratory Data Attestation: I reviewed the patient's lab results. Result diagrams: 10/17/20 22:53 10/17/20 22:53 Lab Results 10/17/20 10/17/20 10/18/20 Range/Units 22:53 22:53 00:03 WBC 5.29 (4.8-10.8) K/uL RBC 3.33 L (4.2-5.4) M/uL Hgb 10.2 L (12.0-16.0) g/dL Hct 30.7 L (37-47) % MCV 92.2 (80-100) fL MCH 30.6 (25-34) pg MCHC 33.2 (32-36) g/dL RDW Std Deviation 51.6 H (36.4-46.3) fL RDW Coeff of Lebron 15.5 H (11.5-14.5) % Plt Count 335 (130-400) K/uL MPV 9.5 (7.4-10.4) fL Immature Gran % (Auto) 0.0 % Neut % (Auto) 38.3 % Lymph % (Auto) 48.0 % Pitkin % (Auto) 9.1 % Eos % (Auto) 4.0 % Baso % (Auto) 0.6 % Neut # (Auto) 2.03 (1.4-6.5) K/uL Lymph # (Auto) 2.54 (1.2-3.4) K/uL Pitkin # (Auto) 0.48 (0.11-0.59) K/uL Eos # (Auto) 0.21 (0-0.5) K/uL Baso # (Auto) 0.03 (0-0.2) K/uL Immature Gran # (Auto) 0.00 (0.00-0.02) K/uL Sodium 142 (136-145) mmol/L Potassium 3.9 (3.5-5.1) mmol/L Chloride 105 (98-107) mmol/L Carbon Dioxide 30 (21-32) mmol/L Anion Gap 7.0 (3-11) BUN 35 H (7-18) mg/dl Creatinine 5.19 H* (0.6-1.2) mg/dl Est Cr Clr Drug Dosing Not Reportable Est GFR ( Amer) 10.2 Est GFR (Non-Af Amer) 8.8 BUN/Creatinine Ratio 6.6 L (10-20) Glucose 37 L* (70-99) mg/dl POC Glucose 59 L* (70-99) mg/dl Calcium 9.1 (8.5-10.1) mg/dl Total Bilirubin 0.3 (0.2-1) mg/dl AST 21 (15-37) U/L ALT 33 (12-78) U/L Alkaline Phosphatase 81 (45-117) U/L Total Protein 7.4 (6.4-8.2) gm/dl Albumin 4.0 (3.4-5.0) gm/dl Globulin 3.4 (2.5-4.0) gm/dl Albumin/Globulin Ratio 1.2 (0.9-2) Lipase 82 (73-393) U/L Imaging Data Attestation: I personally reviewed and interpreted this imaging study as follows: MDM Narrative Prior records/ancillary studies reviewed. Triage Nursing notes reviewed. Additional history obtained from family. The patient's history was concerning for abdominal pain. Differential diagnosis: Etiologies such as acute on chronic pain, gastroparesis, diverticulitis, PUD, biliary pathology, UTI, pancreatitis, obstruction, mesenteric ischemia, aortic pathology, infections, inflammatory bowel disease, renal colic, as well as others were entertained. Physical examination findings: As above. ER treatment provided: An order was placed for continuous cardiac monitoring. The monitor shows a rate of 60-1 10 with a sinus rhythm. Droperidol, Pepcid On reassessment the patient felt better. Diagnostics interpreted by me: The labs revealed elevated creatinine with known kidney disease hypoglycemia and pt was given glucose and improved. Stable H&H Imaging studies: CT ABDOMEN & PELVIS Without Contrast: Cholecystectomy. No radiograph evidence of pancreatitis. Ectasia of the right renal collecting system. Bilateral nephrolithiasis. No ureteral stones. IUD. No evidence of colitis. Appendix not identified. Radiologist: Noe Vázquez M.D. Consultation: A consultation was placed with Dr. Archer. The case was discussed and diagnostics were reviewed. The patient was evaluated in the ER for further treatment. Exam and history seem consistent with hypoglycemia in an insulin-dependent diabetic with known kidney disease on dialysis. Patient's blood sugar was low. She is given glucose and improved. CAT scan is negative. She will be evaluated for possible admission. By the evaluation outlined above emergent etiologies such as appendicitis, diverticulitis, PUD, biliary pathology, UTI, pancreatitis, obstruction, mesenteric ischemia, aortic pathology, infections, inflammatory bowel disease, renal colic, as well as others were deemed relatively unlikely. The pt informed about the findings as listed above. All questions were answered and pleased with the treatment. The chart was completed utilizing [employer] Speech voice recognition software. Grammatical errors, random word insertions, pronoun errors, and incomplete sentences are an occassional consequence of this system due to software limitations, ambient noise, and hardware issues. Any formal questions or concerns about the content, text, or information contained within the body of this dictation should be directly addressed to the physician printer's assistant for clarification. Insert my drug Impression & Plan Hypoglycemia, Abdominal pain, Nausea & vomiting Discharge Plan Visit Data Chief Complaint: Abdominal Pain Stated Complaint: ABD PAIN ED Provider: Yves Perez ED Midlevel Provider: Ingrid De Souza Discharge Problem: Hypoglycemia, Abdominal pain, Nausea & vomiting Patient Disposition: Admitted As Inpatient Condition: Fair Forms Stand Alone Forms: My [employer] Prescriptions Prescriptions: No Action aripiprazole [Abilify] 5 mg tablet 5 mg PO HS RF: 0 atorvastatin [Lipitor] 40 mg tablet 40 mg PO HS RF: 0 trazodone 150 mg tablet 75 mg PO HS PRN (Reason: Sleep) RF: 0 temazepam [Restoril] 15 mg capsule 15 mg PO HS RF: 0 hydroxyzine HCl 25 mg tablet 25 mg PO TID PRN (Reason: Anxiety) RF: 0 trimethobenzamide 300 mg Capsule 300 mg PO TID PRN (Reason: NAUSEA/VOMITING) RF: 0 levetiracetam [Keppra] 500 mg tablet 500 mg PO BID RF: 0 melatonin 3 mg Tablet 3 mg PO HS RF: 0 lamotrigine [Lamictal] 25 mg tablet 50 mg PO HS RF: 0 ergocalciferol (vitamin D2) [Vitamin D2] 1,250 mcg (50,000 unit) Capsule 50,000 unit PO FR RF: 0 sertraline [Zoloft] 50 mg tablet 75 mg PO HS RF: 0 insulin lispro [Admelog SoloStar U-100 Insulin] 100 unit/mL Insulin Pen 7 unit SUBCUT TIDM RF: 0 sevelamer carbonate 800 mg Tablet 800 mg PO TIDM RF: 0 benztropine 0.5 mg tablet 0.5 mg PO HS RF: 0 lactulose 10 gram/15 mL Solution 10 g PO BID PRN (Reason: Constipation) Qty: 200 RF: 0 lubiprostone 24 mcg Capsule 24 mcg PO BIDM RF: 0 polyethylene glycol 3350 [Miralax] 17 gram Powder In Packet 17 g PO BID Qty: 60 RF: 0 amlodipine [Norvasc] 5 mg Tablet 2.5 mg PO HS Qty: 30 RF: 0 Lantus Solostar U-100 Insulin 100 unit/mL (3 mL) insulin pen 12 unit SC DAILY RF: 0 buspirone 10 mg tablet 10 mg PO TID RF: 0 metoclopramide HCl 5 mg tablet 5 mg PO TID PRN (Reason: Nausea) RF: 0 pantoprazole 40 mg Tablet,Delayed Release (Dr/Ec) 40 mg PO QAM Qty: 30 RF: 0 sucralfate 100 mg/mL Suspension 10 ml PO BID 30 Days Qty: 600 RF: 1 Advanced Probiotic 625 mg (10 billion cell) capsule 2 cap PO QAM RF: 0 Referrals Referrals: Mitchel Santo MD [Primary Care Provider] -
[2020-10-17 23:08] LABS: Basophils # (auto) 0.03 K/uL (0-0.2); Basophils % (auto) 0.6 %; Eosinophils # (auto) 0.21 K/uL (0-0.5); Hematocrit (blood only) 30.7 % (37-47); Hemoglobin 10.2 g/dL (12.0-16.0); Lymphocytes # (auto) 2.54 K/uL (1.2-3.4); Mean Corpuscular Hemoglobin 30.6 pg (25-34); Mean Corpuscular Hgb Conc 33.2 g/dL (32-36); Mean Corpuscular Volume 92.2 fL (80-100); Mean Platelet Volume 9.5 fL (7.4-10.4); Monocytes # (auto) 0.48 K/uL (0.11-0.59); Monocytes % (auto) 9.1 %; Neutrophils # (auto) 2.03 K/uL (1.4-6.5); Neutrophils % (auto) 38.3 %; Platelet Count 335 K/uL (130-400); RDW Coefficient of Variation 15.5 % (11.5-14.5); RDW Standard Deviation 51.6 fL (36.4-46.3); Red Blood Count 3.33 M/uL (4.2-5.4); White Blood Count 5.29 K/uL (4.8-10.8)
[2020-10-18 00:01] LABS: Alanine Aminotransferase 33 U/L (12-78); Albumin Globulin Ratio 1.2 (0.9-2); Alkaline Phosphatase 81 U/L (45-117); Aspartate Aminotransferase 21 U/L (15-37); BUN Creatinine Ratio 6.6 (10-20); Bilirubin,Total 0.3 mg/dl (0.2-1); Blood Urea Nitrogen 35 mg/dl (7-18); Calcium 9.1 mg/dl (8.5-10.1); Carbon Dioxide 30 mmol/L (21-32); Chloride 105 mmol/L (98-107); Est GFR (African American) 10.2; Est GFR (Non-African American) 8.8; Globulin 3.4 gm/dl (2.5-4.0); Glucose 37 mg/dl (70-99); Lipase 82 U/L (73-393); Potassium 3.9 mmol/L (3.5-5.1); Sodium 142 mmol/L (136-145); Total Protein 7.4 gm/dl (6.4-8.2)
[2020-10-18] MEDS ORDERED: DEXTROSE 50% 50 ML SYRINGE IV ONE ×2 (00:02→00:03)
[2020-10-18] MEDS ORDERED: amLODIPine BESYLATE 5 MG TAB PO STA (00:38)
[2020-10-18 00:49] LABS: Magnesium 2.7 mg/dl (1.8-2.4)
--- NOTE | 2020-10-18 01:03 | Emergency Department Note ---
ED Visit Note I have personally evaluated this patient examined her and reviewed the pertinent labs and data. I have discussed the case with Zarina De Souza, the physician power plant assistant and agree with the plan. Please refer to the PA note. This patient has a history of gastroparesis diabetes and ESRD. She comes in after having abdominal pain and nausea typical for her gastroparesis. She does typically get admitted to the hospital. We did establish an IV and gave her Medicaid IV medications including Reglan. She is feeling better but still does not feel well enough to go home additionally blood sugar did drop and was treated and now it is in the mid 100s. She is a dialysis patient has not missed any dialysis. Upon my exam she appears comfortable but still says she feels nauseated has some mild abdominal discomfort. We did consult Dr. Sherman to see her in the ER for these measures .
[2020-10-18 01:19] LABS: Influenza A virus by PCR Negative (Neg); Influenza B virus by PCR Negative (Neg); RSV by PCR Negative (Neg); SARS CoV2 RNA(COVID-19) InHosp NEGATIVE (Negative)
--- NOTE | 2020-10-18 01:54 | History & Physical Report ---
Date of Service October 18, 2020 Assessment & Plan (1) Abdominal pain: Chronic abdominal pain secondary to gastroparesis DM 1, recurrent hypoglycemic episodes leading to multiple ER visits and confinements at [facility] Reasonable control as of recent hemoglobin A1c of 8.08 September 2020 Poor p.o. intake secondary to gastroparesis Possible secondary gain/drug-seeking behavior Hypertension, setting elevated secondary discomfort. chronic diastolic heart failure (EF 74%, DSE 2018), patient on the dry side nonocclusive CAD as per records history CVA as per records COPD, stable ESRD on HD Chronic anemia, hemoglobin at baseline mood disorder, at baseline Hypokalemia secondary to GI illness, home insulin ? Functional disability, recurrent admissions/ER visits past tobacco abuse OBS GMF Caution with narcotic use given concerns for drug-seeking behavior GI consult Re: Follow-up eval for abdominal pain Hypoglycemia protocol Decrease maintenance basal insulin for now, ISS BG goal [id number], carb count coverage (Need to involve patient with discharge planning pertinent to DM medications as patient caregiver. Patient unable to administer insulin to herself.) Titrate home amlodipine Nephrology consult Re: Dialysis management Saturday PT OT eval Social service RE: Discharge planning DVT prophylaxis with Heparin subcu Full code Patient requesting providers to update of plan of care. Mr. Harley Aguilar, contact #[phone]. Text document was generated using GLSS voice recognition software. It may contain grammatical or spelling errors. Kindly contact undersigned for clarification of any documentation item in qu estion. History of Present Illness Primary Care Provider: Mitchel Santo MD Medical history significant for chronic diastolic heart failure (EF 74%, DSE 2018), nonocclusive CAD as per records, HTN, hx orthostatic hypotension as per records, history CVA, COPD, hx DM1, ESRD on HD, chronic anemia (baseline hemoglobin 9-10), mood disorder, past tobacco abuse, medication noncompliance as per records, history of seizures as per records, chronic abdominal pain secondary to gastroparesis as per records. Multiple confinements and ER visits at [facility] and [facility] the last few months for chronic abdominal pain and hypoglycemia symptoms. Recent [facility] confinement 3 weeks ago for hypertensive crisis, gastroparesis. Patient discharged on Amlodipine. Patient seen by GI during confinement. Abdominal pain attributed to gastroparesis in the setting of uncontrolled DM. Reglan 3 times daily premeals, small frequent meals, low residue diet recommended. MiraLAX twice daily recommended for constipation. Patient had outpatient [facility] GI office follow-up last week. Reglan stop as medication not efficacious and concerns for tardive dyskinesia as per documentation. Consider evaluation by tertiary center for gastric stimulator placement. Patient had worsening abdominal pain, increased nausea vomiting symptoms at home despite compliance with home medications. Appetite okay as per patient. Patient denies headache, chest pain, S OB. Patient brought to the ER for evaluation. Noted to be hypoglycemic. No recent change in insulin regimen as per patient. Medical History as above Hemodialysis, Saturday Surgical History : Vascular procedures, appendectomy, cholecystectomy, BTL, eye surgery, breast lesion excision Family History : Diabetes, breast cancer, heart disease, ovarian cancer, thyroid disease Personal/Social history : Past tobacco abuse, no EtOH intake, disabled Allergies Allergy/AdvReac Type Severity Reaction Status Date / Time Fish Containing Products Allergy Mild Hives Verified 10/17/20 23:14 latex Allergy Mild hives Verified 10/17/20 23:14 shellfish derived Allergy Mild Hives Verified 10/17/20 23:14 Home Medications Medication Instructions Recorded Confirmed Type aripiprazole [Abilify] 5 mg PO HS 05/20/19 10/17/20 History levetiracetam [Keppra] 500 mg PO BID 06/20/19 10/17/20 History atorvastatin [Lipitor] 40 mg PO HS 08/01/19 10/17/20 History melatonin 3 mg PO HS 01/29/20 10/17/20 History hydroxyzine HCl 25 mg PO TID PRN 02/20/20 10/17/20 History temazepam [Restoril] 15 mg PO HS 02/20/20 10/17/20 History trazodone 75 mg PO HS PRN 02/20/20 10/17/20 History trimethobenzamide 300 mg PO TID PRN 03/21/20 10/17/20 History benztropine 0.5 mg PO HS 07/27/20 10/17/20 History ergocalciferol (vitamin D2) 50,000 unit PO FR 07/27/20 10/17/20 History [Vitamin D2] insulin lispro [Admelog SoloStar 7 unit SUBCUT TIDM 07/27/20 10/17/20 History U-100 Insulin] lamotrigine [Lamictal] 50 mg PO HS 07/27/20 10/17/20 History sertraline [Zoloft] 75 mg PO HS 07/27/20 10/17/20 History sevelamer carbonate 800 mg PO TIDM 07/27/20 10/17/20 History lactulose 10 g PO BID PRN #200 ml 07/31/20 10/17/20 Rx buspirone 10 mg PO TID 08/16/20 10/17/20 History metoclopramide HCl 5 mg PO TID PRN 08/16/20 10/17/20 History pantoprazole 40 mg PO QAM #30 tab 08/21/20 10/17/20 Rx sucralfate 10 ml PO BID 30 Days #600 ml 08/21/20 10/17/20 Rx lubiprostone 24 mcg PO BIDM 09/09/20 10/17/20 History Advanced Probiotic 2 cap PO QAM 09/25/20 10/17/20 History amlodipine [Norvasc] 2.5 mg PO HS #30 tab 10/05/20 10/17/20 Rx polyethylene glycol 3350 [Miralax] 17 g PO BID #60 ea 10/05/20 10/17/20 Rx insulin glargine [Lantus Solostar 12 unit SC DAILY 10/17/20 10/17/20 History U-100 Insulin] 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 history of CVA in 2018 Residual R sided weakness Depression Diabetic gastroparesis Diastolic heart failure DM type 1 (diabetes mellitus, type 1) ESRD (end stage renal disease) on dialysis GERD (gastroesophageal reflux disease) History of GI bleed Hyperlipidemia Hypertension Seizure Surgical History Hx of appendectomy Hx of cholecystectomy Hx of tubal ligation Family History Mother Coronary heart disease Hypertension Father Coronary heart disease Social History Smoking Status: Former smoker Tobacco Type: Cigarettes Second Hand Exposure: No; Do You Dip or Chew Tobacco: No; Tobacco Cessation Education Requested by Patient: No Hx Alcohol Use: No Hx Substance Use: No Preferred Language: Macanese Communication Ability: Effective Communication Ability Comment: limited vision Tobacco Stripper Hand Required: No Beliefs That Will Affect Care: None marital status: Current Living Situation: Significant Other current occupational status: unemployed Other Information That Helps Us Care for You: No Feels Safe at Home: Yes Safety Concerns: Feels Safe At This Time Assistive Devices: Walker Review of Systems Review of Systems: As per HPI, all 10 systems reviewed, all other ROS negative Physical Exam Physical Exam: GENERAL: Slightly uncomfortable, slightly anxious, chronically ill, no respiratory distress SKIN: Pallor, warm HEENT: Pale palpebral conjunctivae, no ptosis, dry buccal mucosa NECK : Supple, no tenderness CHEST : CTA, no tenderness HEART : RRR, no obvious murmurs ABDOMEN: Some distention, hypogastric tenderness EXTREMITIES : No LE swelling/tenderness, no other conspicuous deformities noted NEUROLOGIC : Coherent, no facial asymmetry, no other gross focality Results & Data Results & Data ([facility]) Vital Signs (Past 12 Hours) Vital Signs Temp Pulse Pulse Resp BP BP Pulse Ox 10/18/20 00:46 76 15 100 10/18/20 00:45 73 11 L 143/61 H 100 10/18/20 00:31 72 11 L 100 10/18/20 00:30 73 11 L 131/58 L 100 10/18/20 00:16 79 12 97 10/18/20 00:15 77 11 L 158/64 H 97 10/18/20 00:01 76 13 156/68 H 97 10/18/20 00:00 77 15 99 10/17/20 23:52 79 25 H 98 10/17/20 23:45 76 12 133/55 L 98 10/17/20 23:25 78 14 148/63 H 98 10/17/20 23:12 100 10/17/20 22:15 36.7 C 66 18 170/73 H 99 Laboratory Results Laboratory Results WBC 5.29 K/uL (4.8-10.8) 10/17/20 22:53 RBC 3.33 M/uL (4.2-5.4) L 10/17/20 22:53 Hgb 10.2 g/dL (12.0-16.0) L 10/17/20 22:53 Hct 30.7 % (37-47) L 10/17/20 22:53 MCV 92.2 fL (80-100) 10/17/20 22:53 MCH 30.6 pg (25-34) 10/17/20 22:53 MCHC 33.2 g/dL (32-36) 10/17/20 22:53 RDW Std Deviation 51.6 fL (36.4-46.3) H 10/17/20 22:53 RDW Coeff of Lebron 15.5 % (11.5-14.5) H 10/17/20 22:53 Plt Count 335 K/uL (130-400) 10/17/20 22:53 MPV 9.5 fL (7.4-10.4) 10/17/20 22:53 Immature Gran % (Auto) 0.0 % 10/17/20 22:53 Neut % (Auto) 38.3 % 10/17/20 22:53 Lymph % (Auto) 48.0 % 10/17/20 22:53 Blackford % (Auto) 9.1 % 10/17/20 22:53 Eos % (Auto) 4.0 % 10/17/20 22:53 Baso % (Auto) 0.6 % 10/17/20 22:53 Neut # (Auto) 2.03 K/uL (1.4-6.5) 10/17/20 22:53 Lymph # (Auto) 2.54 K/uL (1.2-3.4) 10/17/20 22:53 Blackford # (Auto) 0.48 K/uL (0.11-0.59) 10/17/20 22:53 Eos # (Auto) 0.21 K/uL (0-0.5) 10/17/20 22:53 Baso # (Auto) 0.03 K/uL (0-0.2) 10/17/20 22:53 Immature Gran # (Auto) 0.00 K/uL (0.00-0.02) 10/17/20 22:53 Sodium 142 mmol/L (136-145) 10/17/20 22:53 Potassium 3.9 mmol/L (3.5-5.1) 10/17/20 22:53 Chloride 105 mmol/L (98-107) 10/17/20 22:53 Carbon Dioxide 30 mmol/L (21-32) 10/17/20 22:53 Anion Gap 7.0 (3-11) 10/17/20 22:53 BUN 35 mg/dl (7-18) H 10/17/20 22:53 Creatinine 5.19 mg/dl (0.6-1.2) H* 10/17/20 22:53 Est Cr Clr Drug Dosing Not Reportable 10/17/20 22:53 Est GFR ( Amer) 10.2 10/17/20 22:53 Est GFR (Non-Af Amer) 8.8 10/17/20 22:53 BUN/Creatinine Ratio 6.6 (10-20) L 10/17/20 22:53 Glucose 37 mg/dl (70-99) L* 10/17/20 22:53 POC Glucose 149 mg/dl (70-99) H 10/18/20 00:27 Calcium 9.1 mg/dl (8.5-10.1) 10/17/20 22:53 Magnesium 2.7 mg/dl (1.8-2.4) H 10/17/20 22:53 Total Bilirubin 0.3 mg/dl (0.2-1) 10/17/20 22:53 AST 21 U/L (15-37) 10/17/20 22:53 ALT 33 U/L (12-78) 10/17/20 22:53 Alkaline Phosphatase 81 U/L (45-117) 10/17/20 22:53 Total Protein 7.4 gm/dl (6.4-8.2) 10/17/20 22:53 Albumin 4.0 gm/dl (3.4-5.0) 10/17/20 22:53 Globulin 3.4 gm/dl (2.5-4.0) 10/17/20 22:53 Albumin/Globulin Ratio 1.2 (0.9-2) 10/17/20 22:53 Lipase 82 U/L (73-393) 10/17/20 22:53 COVID-19 Eval Order CovFluRsv at [facility] 10/18/20 00:25 SARS-CoV-2 (PCR) NEGATIVE (Negative) 10/18/20 00:25 Influenza Type A (PCR) Negative (Neg) 10/18/20 00:25 Influenza Type B (PCR) Negative (Neg) 10/18/20 00:25 RSV (RT-PCR) Negative (Neg) 10/18/20 00:[address] abdomen pelvis initial read:Cholecystectomy. No radiograph evidence of pancreatitis. Ectasia of the right renal collecting system. Bilateral nephrolithiasis. No ureteral stones. IUD. No evidence of colitis. Appendix not identified.
[2020-10-18] MEDS ORDERED: GLUCAGON FOR INJ 1 MG VIAL SQ PRN (03:33)
[2020-10-18] MEDS ORDERED: PROMETHAZINE HCL 6.25 MG in SODIUM CHLORIDE 0.9% 50 ML IV PRN (03:33)
[2020-10-18] MEDS ORDERED: GLUCOSE 10 TABS/TUBE PO PRN (03:33)
[2020-10-18] MEDS ORDERED: GLUCOSE 40% GEL 15 GM TUBE PO PRN (03:33)
[2020-10-18] MEDS ORDERED: CARBOHYDRATES FOR HYPOGLYCEMIA PO PRN (03:33)
[2020-10-18] MEDS ORDERED: DEXTROSE 50% 50 ML SYRINGE IV PRN (03:33)
[2020-10-18] MEDS ORDERED: hydrOXYzine HCl 25 MG TAB PO PRN (03:33)
[2020-10-18] MEDS: INSULIN ASPART 100 UNITS/ML 3 ML PEN SC SCH ×5 (03:58→21:18)
[2020-10-18] MEDS ORDERED: amLODIPine BESYLATE 5 MG TAB PO ONE (04:00)
[2020-10-18] MEDS: ACETAMINOPHEN 325 MG TAB PO PRN ×2 (05:39→21:14)
[2020-10-18] MEDS: HEPARIN SOD 5,000 UNIT/0.5 ML VIAL SQ SCH ×3 (05:39→21:15)
[2020-10-18] MEDS: INSULIN GLARGINE SOLOSTAR 100 UNITS/ML 3 ML PEN SC SCH (05:45)
[2020-10-18] MEDS: LACTULOSE SYRUP 20 GM/30 ML UDC PO PRN (05:48)
[2020-10-18 06:13] LABS: Basophils # (auto) 0.03 K/uL (0-0.2); Basophils % (auto) 0.9 %; Eosinophils % (auto) 5.9 %; Hematocrit (blood only) 29.3 % (37-47); Hemoglobin 9.6 g/dL (12.0-16.0); Immature Granulocytes # (auto) 0.01 K/uL (0.00-0.02); Immature Granulocytes % (auto) 0.3 %; Lymphocytes # (auto) 1.63 K/uL (1.2-3.4); Lymphocytes % (auto) 48.1 %; Mean Corpuscular Hemoglobin 30.1 pg (25-34); Mean Corpuscular Hgb Conc 32.8 g/dL (32-36); Mean Corpuscular Volume 91.8 fL (80-100); Mean Platelet Volume 9.4 fL (7.4-10.4); Monocytes # (auto) 0.33 K/uL (0.11-0.59); Monocytes % (auto) 9.7 %; Neutrophils # (auto) 1.19 K/uL (1.4-6.5); Neutrophils % (auto) 35.1 %; Platelet Count 324 K/uL (130-400); RDW Coefficient of Variation 15.4 % (11.5-14.5); RDW Standard Deviation 51.1 fL (36.4-46.3); Red Blood Count 3.19 M/uL (4.2-5.4); White Blood Count 3.39 K/uL (4.8-10.8)
[2020-10-18 07:11] LABS: BUN Creatinine Ratio 6.8 (10-20); Calcium 8.7 mg/dl (8.5-10.1); Creatinine Clr Calc Pharmacy 11.3 ml/min; Est GFR (Non-African American) 9.5; Potassium 4.4 mmol/L (3.5-5.1)
--- NOTE | 2020-10-18 07:52 | CT Scan Report ---
CT SCAN OF THE ABDOMEN AND PELVIS WITHOUT CONTRAST CLINICAL HISTORY: lower abd pain COMPARISON STUDY: 10/01/2020 TECHNIQUE: CT scan of the abdomen and pelvis was performed from the lung bases to the proximal femurs . Images are reviewed in the axial, sagittal, and coronal planes. IV contrast was not administered fo r this examination. A dose lowering technique was utilized adhering to the principles of ALARA. CT DOSE: 284.20 mGy.cm FINDINGS: Lower chest: There are basilar atelectatic changes. Liver: The unenhanced liver is normal in size, contour, and attenuation. There is no intrahepatic jasson iary ductal dilatation. Gallbladder: Surgically absent Spleen: Normal in size and attenuation. Pancreas: Unremarkable. Adrenal glands: Unremarkable. Kidneys: There are multiple bilateral renal calcifications, most of which appear vascular. No uretera l or bladder calculi are visualized. Bowel: There are no transition zones to indicate bowel obstruction. There is moderate colonic fecal l oad. There are multiple fluid-filled small bowel loops. There is borderline rectosigmoid wall thicken ing. There is no evidence of acute diverticulitis. By history the appendix is surgically absent Peritoneum: There is no intraperitoneal free air or abdominal ascites. Vasculature: The abdominal aorta is normal in course and caliber. Adenopathy: None. Pelvic viscera: There is an indwelling IUD Skeletal structures: There are anterior abdominal wall nodules likely secondary to injection sites IMPRESSION: 1. No evidence of bowel obstruction. No evidence of free air 2. No evidence of acute diverticulitis. 3. Moderate fecal colonic load 4. Multiple bilateral renal calcifications. While most of the calcifications are vascular, a few smal l nonobstructing calculi cannot be excluded ACT 112: Negative or not required by law. Electronically signed by: Denis Vargas M.D. 10/18/2020 7:51 AM
[2020-10-18] MEDS: LUBIPROSTONE 8 MCG CAP PO SCH ×2 (08:42→17:49)
[2020-10-18] MEDS: SEVELAMER HCL 800 MG TABLET PO SCH ×3 (08:43→17:50)
[2020-10-18] MEDS: ADVANCED PROBIOTIC 1250 MG CAPSULE PO SCH (08:43)
[2020-10-18] MEDS: levETIRAcetam 500 MG TAB PO SCH ×2 (08:44→21:13)
[2020-10-18] MEDS: PANTOprazole 40 MG TAB PO SCH (08:44)
[2020-10-18] MEDS: busPIRone 5 MG TAB PO SCH ×3 (08:44→21:13)
[2020-10-18] MEDS: POLYETHYLENE (MIRALAX) 17 GM PACK PO SCH ×2 (08:45→21:14)
[2020-10-18] MEDS: SUCRALFATE 1 GM/10 ML UDC PO SCH ×2 (08:45→21:14)
--- NOTE | 2020-10-18 08:58 | Anesthesiology Consultation ---
Date of Service October 18, 2020 Assessment & Plan (1) Encounter for pre-operative examination: Chart Review Chart Review: Acceptable Risk for Surgery and Patient NOT seen in Pre Admission Testing Consults Requested none History Surgery Operation Date: 10/18/20 17:30 Proposed Procedures p Esophagogastroduodenoscopy Dr Danita Samayoa MD Height/Weight Height: 5 ft 4 in Weight: 53.1 kg Allergies Allergy/AdvReac Type Severity Reaction Status Date / Time Fish Containing Products Allergy Mild Hives Verified 10/17/20 23:14 latex Allergy Mild hives Verified 10/17/20 23:14 shellfish derived Allergy Mild Hives Verified 10/17/20 23:14 Medications Home Medications Medication Instructions Recorded Confirmed Last Taken aripiprazole [Abilify] 5 mg PO HS 05/20/19 10/17/20 09/24/20 levetiracetam [Keppra] 500 mg PO BID 06/20/19 10/17/20 09/25/20 atorvastatin [Lipitor] 40 mg PO HS 08/01/19 10/17/20 09/24/20 melatonin 3 mg PO HS 01/29/20 10/17/20 09/24/20 hydroxyzine HCl 25 mg PO TID PRN 02/20/20 10/17/20 09/25/20 temazepam [Restoril] 15 mg PO HS 02/20/20 10/17/20 09/24/20 trazodone 75 mg PO HS PRN 02/20/20 10/17/20 09/24/20 trimethobenzamide 300 mg PO TID PRN 03/21/20 10/17/20 Unknown benztropine 0.5 mg PO HS 07/27/20 10/17/20 09/24/20 ergocalciferol (vitamin D2) 50,000 unit PO FR 07/27/20 10/17/20 09/23/20 [Vitamin D2] insulin lispro [Admelog SoloStar 7 unit SUBCUT TIDM 07/27/20 10/17/20 09/25/20 U-100 Insulin] lamotrigine [Lamictal] 50 mg PO HS 07/27/20 10/17/20 09/24/20 sertraline [Zoloft] 75 mg PO HS 07/27/20 10/17/20 09/24/20 sevelamer carbonate 800 mg PO TIDM 07/27/20 10/17/20 09/25/20 lactulose 10 g PO BID PRN #200 ml 07/31/20 10/17/20 09/25/20 buspirone 10 mg PO TID 08/16/20 10/17/20 09/25/20 metoclopramide HCl 5 mg PO TID PRN 08/16/20 10/17/20 09/09/20 pantoprazole 40 mg PO QAM #30 tab 08/21/20 10/17/20 09/25/20 sucralfate 10 ml PO BID 30 Days #600 ml 08/21/20 10/17/20 09/25/20 lubiprostone 24 mcg PO BIDM 09/09/20 10/17/20 09/25/20 Advanced Probiotic 2 cap PO QAM 09/25/20 10/17/20 09/25/20 amlodipine [Norvasc] 2.5 mg PO HS #30 tab 10/05/20 10/17/20 Unknown polyethylene glycol 3350 [Miralax] 17 g PO BID #60 ea 10/05/20 10/17/20 Unknown insulin glargine [Lantus Solostar 12 unit SC DAILY 10/17/20 10/17/20 Unknown U-100 Insulin] Active Medications Generic Name Dose Route Start Last Admin Trade Name Freq PRN Reason Stop Dose Admin Acetaminophen 325 mg 10/18/20 03:33 10/18/20 05:39 Acetaminophen 325 Mg Tab PO 11/17/20 03:32 325 mg Q6H PRN Administration Mild Pain Buspirone HCl 10 mg 10/18/20 09:00 10/18/20 08:44 Buspirone 5 Mg Tab PO 11/17/20 08:59 10 mg TID SARAH Administration Heparin Sodium (Porcine) 5,000 units 10/18/20 06:00 10/18/20 05:39 Heparin Sod 5,000 Unit/0.5 Ml Vial SQ 11/17/20 05:59 5,000 units Q8 SARAH Administration Insulin Aspart 0 units 10/18/20 03:33 10/18/20 08:47 Insulin Aspart 100 Units/Ml 3 Ml Pen SC 11/17/20 03:32 4 units ACHS SARAH Administration Insulin Glargine 6 units 10/18/20 04:10 10/18/20 05:45 Insulin Glargine Solostar 100 Units/Ml 3 Ml Pen SC 11/17/20 04:09 6 units DAILY SARAH Administration Lactobacillus Acidoph/Casei/Rhamnos 2 cap 10/18/20 09:00 10/18/20 08:43 Advanced Probiotic 1250 Mg Capsule PO 11/17/20 08:59 2 cap QAM SARAH Administration Lactulose 10 gm 10/18/20 04:51 10/18/20 05:48 Lactulose Syrup 20 Gm/30 Ml Udc PO 11/17/20 04:50 10 gm BID PRN Administration Constipation Levetiracetam 500 mg 10/18/20 09:00 10/18/20 08:44 Levetiracetam 500 Mg Tab PO 11/17/20 08:59 500 mg BID SARAH Administration Lubiprostone 24 mcg 10/18/20 08:00 10/18/20 08:42 Lubiprostone 8 Mcg Cap PO 11/17/20 07:59 24 mcg BIDM SARAH Administration Miscellaneous 1 ea 10/18/20 08:00 10/18/20 08:46 Tigan~Order Awaiting Action N/A 11/17/20 07:59 Not Given QS SARAH Pantoprazole Sodium 40 mg 10/18/20 09:00 10/18/20 08:44 Pantoprazole 40 Mg Tab PO 11/17/20 08:59 40 mg QAM SARAH Administration Polyethylene Glycol 17 gm 10/18/20 09:00 10/18/20 08:45 Polyethylene (Miralax) 17 Gm Pack PO 11/17/20 08:59 17 gm BID SARAH Administration Sevelamer HCl 800 mg 10/18/20 08:00 10/18/20 08:43 Sevelamer Hcl 800 Mg Tablet PO 11/17/20 07:59 800 mg TIDM SARAH Administration Sucralfate 1 gm 10/18/20 09:00 10/18/20 08:45 Sucralfate 1 Gm/10 Ml Udc PO 11/17/20 08:59 1 gm BID SARAH Administration Past Medical History Medical History Anemia due to chronic kidney disease Arteriovenous fistula for hemodialysis in place, primary Bipolar disorder CKD (chronic kidney disease) stage V requiring chronic dialysis Coronary artery disease "2016 - cardiac catheterization showing nonobstructive coronary disease Stress test 06/2017 - possible small area of ischemia in the anterior wall" CVA (cerebral vascular accident) 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 history of CVA in 2018 Residual R sided weakness Depression Diabetic gastroparesis Diastolic heart failure DM type 1 (diabetes mellitus, type 1) ESRD (end stage renal disease) on dialysis GERD (gastroesophageal reflux disease) History of GI bleed Hyperlipidemia Hypertension Seizure Past Family History Family History Mother Coronary heart disease Hypertension Father Coronary heart disease Past Surgical History Surgical History Hx of appendectomy Hx of cholecystectomy Hx of tubal ligation Social History Smoking Status: Former smoker tobacco type: cigarettes Do You Dip or Chew Tobacco: No Hx Alcohol Use: No Hx Substance Use: No substance use type: does not use Physical Exam Vital Signs Last Vital Signs Temp 36.8 C 10/18/20 06:58 Pulse 80 10/18/20 06:58 Resp 18 10/18/20 06:58 BP 138/71 10/18/20 06:58 Pulse Ox 100 10/18/20 06:58 Testing Laboratory Results 10/18/20 05:50 10/18/20 05:50 10/18/20 10/18/20 10/18/20 08:03 03:45 00:27 POC Glucose 198 H 225 H 149 H 10/18/20 00:03 POC Glucose 59 L*
[2020-10-18] MEDS ORDERED: HEPARIN SOD (PORCINE) 1000 UNIT/ML IV ONE (09:30)
[2020-10-18] MEDS ORDERED: SODIUM CHLORIDE 0.9% 1000ML 1,000 ML IV PRN (09:30)
[2020-10-18] MEDS ORDERED: EPOETIN ALFA 10,000 UNITS/ML VIAL IV ONE (10:00)
--- NOTE | 2020-10-18 10:19 | Consultation Report ---
DATE OF CONSULTATION: 10/18/2020 NEPHROLOGY CONSULT NOTE REASON FOR CONSULT: Dialysis patient admitted with abdominal pain. HISTORY OF PRESENT ILLNESS: The patient is a 50-year-old female with type 1 diabetes with end-stage renal disease, on chronic hemodialysis Saturday, , Saturday through her AV fistula. She presented to the hospital with abdominal pain, discomfort, nausea and vomiting. She has had uncountable number of admissions for the exact same problem in the last few years, both at [facility] as well as [facility]. She has had more than 10 CT scan of her abdomen done just in this year. As usual, she had another CT scan of the abdomen which did not show anything acute. She has established severe gastroparesis. She had dialysis as scheduled on Saturday without problem. Today is her dialysis day. At this point, she appears fairly comfortable and has some nausea and some abdominal pain, but no new or acute symptoms otherwise. Laboratory test consistent with end-stage renal disease. Vital signs pretty stable. PAST MEDICAL AND SURGICAL HISTORY: Includes, ESRD on hemodialysis, type 1 diabetes, COPD, severe depression, bipolar, hypertension, chronic congestive heart failure, nonocclusive coronary artery disease, severe gastroparesis. ALLERGIES: Reviewed. HOME MEDICATIONS: List was reviewed and is as per the H and P. PAST SURGICAL HISTORY: Appendicectomy, cholecystectomy, tubal ligation. FAMILY HISTORY: Positive for coronary heart disease, hypertension. SOCIAL HISTORY: Former smoker. She lives with her boyfriend, currently disabled. REVIEW OF SYSTEMS: Other than chronic nausea, occasional vomiting and abdominal discomfort, 12 systems reviewed and negative. PHYSICAL EXAMINATION: GENERAL: Awake, alert, oriented. She is not in any respiratory distress. Able to tell her detailed history without problem. VITAL SIGNS: Blood pressure is 138/71, pulse rate 80, temperature 36.8, 100% on room air. HEENT: Mucous membrane is moist. NECK: Supple. No jugular venous distention. CHEST: Bilateral clear to auscultation. CARDIOVASCULAR: S1, S2 regular. ABDOMEN: Soft, nontender. EXTREMITIES: Show no edema. AV fistula has good bruit and thrill. LABORATORY TESTS: Reviewed. Creatinine is 4.9, no major electrolyte problem. Hemoglobin is 9.6. ASSESSMENT AND PLAN: A 50-year-old female with type 1 diabetes with endstage renal disease on hemodialysis, TTS schedule, now admitted with chronic nausea, vomiting, abdominal discomfort secondary to severe gastroparesis, admitted for the same problem. I have been consulted for dialysis management. 1. End-stage renal disease: Today is a regular day and we will do her dialysis today for 3 hours 30 minutes on a 2K bath. Does not have any evidence of fluid overload or volume depletion or electrolyte problem. We will try to take about 1-1.5 kilo fluid off. We will be giving her Procrit as well as heparin. 2. Abdominal issues. This is not new and she has been having this GI problem for the last 5-6 years now. Requiring many, many hospital admissions and too many to count CT scan of her abdomen. The patient is claiming she is scheduled to have a gastric pacemaker in few days at [facility]. I really hope this will be a game changer in her symptomatology. Thank you very much for the consult.
[2020-10-18] MEDS: DOCUSATE SODIUM 100 MG CAP PO SCH ×2 (10:24→21:13)
--- NOTE | 2020-10-18 11:23 | Gastrointestinal Consultation ---
Date of Consultation October 18, 2020 Assessment & Plan (1) Gastroparesis: Nausea vomiting abdominal pain is all resolved. I do think that there is an element of continued constipation is contributing as she is not had a bowel movement in 6 days. They have started her on appropriate bowel regimen of lactulose as well as MiraLAX today. I would continue this until satisfactory bowel movements. We discussed EGD today and was planning on this, however she consumed breakfast, therefore, would suggest outpatient EGD EUS to ensure that does not have chronic pancreatitis or other contributing features or signs. Daily PPI, as needed antiemetics, dialysis today. Outpatient EGD EUS. Please recall GI if necessary History of Present Illness Attending Physician: Dawson Mohamud MD History of Present Illness This is a 50 year old female with extensive PMHx ESRD on dialysis, chronic normocytic anemia, DM-1, bipolar, CHF, IBS and diabetic autonomic gastropathy/gastroparesis. She's had multiple admissions between [facility] and [facility] for n/v/abd pain, constipation, that she's had for several years; she's undergone an extensive GI w/u in the recent past. Her generalized abd pain is fairly constant. She has postprandial nausea and occasional vomiting. Since her last admission she's had no further vomiting and was seen in the office 6 days ago, until yesterday she became nauseated and had one small volume emesis prompting presentation to the ER. Prior to this and over the last few weeks she has been able to tolerate 3 meals a day; states she eats tacos. BSG are labile; A1C 8%. She carries a dx of gastroparesis and has been on Reglan BID-TID for several years; does not feel this helps her symptoms. Has also been on traditional antiemetics such as Zofran that have not been helpful. She reports involuntary lip smacking and other facial movements with Reglan use. She may have had a positive GES in the past however in 2018 and 2018 these were normal. Recently underwent MRI of the ABD and had evidence of hemosiderosis. She receives IV iron frequently during her dialysis and she's received blood transfusions in the past. She takes no oral iron. HFE DNA testing in 2019 was neg. Ferritin was last checked in 2017 and was 549; Tsat was 51% in 07/2019. She is on Amitiza for h/o constipation; only takes once a day; uses Dulcolax, Senna, Colace. Also uses Lactulose once a week. Not using Miralax. Only has one BM weekly; with last stool 6 days ago, stools are solid. She has a history of potential SOD and underwent sphincterotomy in 2019. During my interview today, she is playing on her phone, easily consuming milk as well as orange juice without symptoms. States she feels much better now today. Allergies Allergy/AdvReac Type Severity Reaction Status Date / Time Fish Containing Products Allergy Mild Hives Verified 10/17/20 23:14 latex Allergy Mild hives Verified 10/17/20 23:14 shellfish derived Allergy Mild Hives Verified 10/17/20 23:14 Home Medications Medication Instructions Recorded Confirmed Type aripiprazole [Abilify] 5 mg PO HS 05/20/19 10/17/20 History levetiracetam [Keppra] 500 mg PO BID 06/20/19 10/17/20 History atorvastatin [Lipitor] 40 mg PO HS 08/01/19 10/17/20 History melatonin 3 mg PO HS 01/29/20 10/17/20 History hydroxyzine HCl 25 mg PO TID PRN 02/20/20 10/17/20 History temazepam [Restoril] 15 mg PO HS 02/20/20 10/17/20 History trazodone 75 mg PO HS PRN 02/20/20 10/17/20 History trimethobenzamide 300 mg PO TID PRN 03/21/20 10/17/20 History benztropine 0.5 mg PO HS 07/27/20 10/17/20 History ergocalciferol (vitamin D2) 50,000 unit PO FR 07/27/20 10/17/20 History [Vitamin D2] insulin lispro [Admelog SoloStar 7 unit SUBCUT TIDM 07/27/20 10/17/20 History U-100 Insulin] lamotrigine [Lamictal] 50 mg PO HS 07/27/20 10/17/20 History sertraline [Zoloft] 75 mg PO HS 07/27/20 10/17/20 History sevelamer carbonate 800 mg PO TIDM 07/27/20 10/17/20 History lactulose 10 g PO BID PRN #200 ml 07/31/20 10/17/20 Rx buspirone 10 mg PO TID 08/16/20 10/17/20 History metoclopramide HCl 5 mg PO TID PRN 08/16/20 10/17/20 History pantoprazole 40 mg PO QAM #30 tab 08/21/20 10/17/20 Rx sucralfate 10 ml PO BID 30 Days #600 ml 08/21/20 10/17/20 Rx lubiprostone 24 mcg PO BIDM 09/09/20 10/17/20 History Advanced Probiotic 2 cap PO QAM 09/25/20 10/17/20 History amlodipine [Norvasc] 2.5 mg PO HS #30 tab 10/05/20 10/17/20 Rx polyethylene glycol 3350 [Miralax] 17 g PO BID #60 ea 10/05/20 10/17/20 Rx insulin glargine [Lantus Solostar 12 unit SC DAILY 10/17/20 10/17/20 History U-100 Insulin] Patient History Medical History Anemia due to chronic kidney disease Arteriovenous fistula for hemodialysis in place, primary Bipolar disorder CKD (chronic kidney disease) stage V requiring chronic dialysis Coronary artery disease "2015 - cardiac catheterization showing nonobstructive coronary disease Stress test 06/2017 - possible small area of ischemia in the anterior wall" CVA (cerebral vascular accident) 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 history of CVA in 2018 Residual R sided weakness Depression Diabetic gastroparesis Diastolic heart failure DM type 1 (diabetes mellitus, type 1) ESRD (end stage renal disease) on dialysis GERD (gastroesophageal reflux disease) History of GI bleed Hyperlipidemia Hypertension Seizure Surgical History Hx of appendectomy Hx of cholecystectomy Hx of tubal ligation Family History Mother Coronary heart disease Hypertension Father Coronary heart disease Social History Smoking Status: Former smoker Tobacco Type: Cigarettes Second Hand Exposure: No; Do You Dip or Chew Tobacco: No; Tobacco Cessation Education Requested by Patient: No Hx Alcohol Use: No Hx Substance Use: No Preferred Language: Yi Communication Ability: Effective Communication Ability Comment: limited vision Manager Ent Required: No Beliefs That Will Affect Care: None marital status: Current Living Situation: Significant Other current occupational status: unemployed Other Information That Helps Us Care for You: No Feels Safe at Home: Yes Safety Concerns: Feels Safe At This Time Assistive Devices: Walker Review of Systems Review of Systems: All systems reviewed & are unremarkable except as noted in HPI & below Results & Data ([facility]) Vital Signs (Past 12 Hours) Vital Signs Temp Pulse Pulse Pulse Resp BP BP 10/18/20 11:00 84 158/72 H 10/18/20 10:52 37.1 C 88 88 159/78 H 10/18/20 06:58 36.8 C 80 18 138/71 10/18/20 05:36 82 149/71 H 10/18/20 03:34 36.6 C 83 19 190/71 H 10/18/20 03:01 77 10 L 190/73 H 10/18/20 03:00 78 16 10/18/20 02:46 75 12 152/66 H 10/18/20 02:45 77 13 10/18/20 02:31 78 19 10/18/20 02:30 75 10 L 140/64 10/18/20 02:16 77 11 L 10/18/20 02:15 76 11 L 147/66 H 10/18/20 02:01 76 11 L 10/18/20 02:00 76 11 L 154/68 H 10/18/20 01:46 74 10 L 10/18/20 01:45 74 9 L 131/69 10/18/20 01:30 81 11 L 158/70 H 10/18/20 01:16 76 17 10/18/20 01:15 76 14 156/66 H 10/18/20 01:01 72 12 10/18/20 01:00 73 12 136/56 L 10/18/20 00:46 76 15 10/18/20 00:45 73 11 L 143/61 H 10/18/20 00:31 72 11 L 10/18/20 00:30 73 11 L 131/58 L 10/18/20 00:16 79 12 10/18/20 00:15 77 11 L 158/64 H 10/18/20 00:01 76 13 156/68 H 10/18/20 00:00 77 15 10/17/20 23:52 79 25 H 10/17/20 23:45 76 12 133/55 L 10/17/20 23:25 78 14 BP Pulse Ox 10/18/20 11:00 10/18/20 10:52 10/18/20 06:58 100 10/18/20 05:36 10/18/20 03:34 100 10/18/20 03:01 10/18/20 03:00 10/18/20 02:46 10/18/20 02:45 10/18/20 02:31 10/18/20 02:30 10/18/20 02:16 10/18/20 02:15 10/18/20 02:01 10/18/20 02:00 10/18/20 01:46 99 10/18/20 01:45 98 10/18/20 01:30 98 10/18/20 01:16 100 10/18/20 01:15 99 10/18/20 01:01 100 10/18/20 01:00 100 10/18/20 00:46 100 10/18/20 00:45 100 10/18/20 00:31 100 10/18/20 00:30 100 10/18/20 00:16 97 10/18/20 00:15 97 10/18/20 00:01 97 10/18/20 00:00 99 10/17/20 23:52 98 10/17/20 23:45 98 10/17/20 23:25 148/63 H 98
[2020-10-18 11:42] LABS: Hepatitis B Surface Ab Quant > 1000.00 mIU/mL (>or=10mIU/mL Immune); Hepatitis B Surface Antibody Immune
[2020-10-18 11:53] LABS: Hepatitis B Surf Ag Rflx Conf Neg (Neg)
[2020-10-18] MEDS: HEPARIN SOD (PORCINE) 1000 UNIT/ML IV SCH ×2 (13:09→13:10)
--- NOTE | 2020-10-18 16:41 | Hospitalist Progress Note ---
Date of Service October 18, 2020 Assessment & Plan (1) Abdominal pain: Severe gastroparesis Constipation Recurrent Nausea, vomiting, abdominal pain -CT ABD:No evidence of bowel obstruction. No evidence of free air. No evidence of acute diverticulitis. Moderate fecal colonic load. Multiple bilateral renal calcifications. While most of the calcifications are vascular, a few small nonobstructing calculi cannot be excluded -Bowel regimen for constipation Continue PPI, antiemetics EGD as outpatient Appreciate GI input DM Type 1 Recurrent hypoglycemic episodes leading to multiple ER visits and admissions Hb 8.08 September 2020 Poor oral intake secondary to gastroparesis Continue insulin therapy Monitor BGs Hypertension Continue amlodipine Chronic diastolic heart failure Nonocclusive CAD Volume status managed through dialysis Continue home medications COPD stable No signs of exacerbation ESRD on HD Appreciate nephrology help Mood disorder At baseline Continue home meds DVT Px: Heparin SQ Code Status Full code Admission and Anticipated Discharge Date Admission Date: October 18, 2020 Subjective Patient is seen and examined at bedside while having hemodialysis Complains of left sided abdominal pain Also states having nausea but no vomiting Last bowel movement 1 week ago as per patient Denies chest pain, shortness of breath, dizziness Offers no other complaints Review of Systems Review of Systems: All systems reviewed & are unremarkable except as noted in HPI & below Physical Exam Physical Exam: Physical Exam: Vitals signs as noted above General Appearance:Thin, no apparent distress Head: normocephalic, Atraumatic Eyes: normal inspection, EOMI Neck: supple, Trachea midline Respiratory/Chest: Normal breath sounds, CTA Cardiovascular: S1, S2, No murmur Abdomen/GI:Soft, Left tender, Bowel sounds present Extremities/Musculoskeletal:normal inspection, no edema Neurologic/Psych:AAOX3, grossly no focal neurological deficits Skin: normal color, warm Results & Data Results & Data ([facility]) Vital Signs (Past 12 Hours) Vital Signs Temp Pulse Pulse Pulse Resp BP BP 10/18/20 14:54 37.1 C 87 15 158/70 H 10/18/20 14:25 36.7 C 79 79 121/55 L 121/55 L 10/18/20 14:00 85 114/62 10/18/20 13:40 85 123/59 L 10/18/20 13:20 89 118/63 10/18/20 13:00 86 130/69 10/18/20 12:40 87 117/62 10/18/20 12:20 87 128/68 10/18/20 12:00 55 L 101/81 10/18/20 11:40 85 133/71 10/18/20 11:20 83 157/75 H 10/18/20 11:00 84 158/72 H 10/18/20 10:52 37.1 C 88 88 159/78 H 10/18/20 06:58 36.8 C 80 18 138/71 10/18/20 05:36 82 149/71 H Pulse Ox 10/18/20 14:54 98 10/18/20 14:25 10/18/20 14:00 10/18/20 13:40 10/18/20 13:20 10/18/20 13:00 10/18/20 12:40 10/18/20 12:20 10/18/20 12:00 10/18/20 11:40 10/18/20 11:20 10/18/20 11:00 10/18/20 10:52 10/18/20 06:58 100 10/18/20 05:36 Laboratory Results Short CBC 10/17/20 10/18/20 Range/Units 22:53 05:50 WBC 5.29 3.39 L (4.8-10.8) K/uL Hgb 10.2 L 9.6 L (12.0-16.0) g/dL Hct 30.7 L 29.3 L (37-47) % Plt Count 335 324 (130-400) K/uL BMP 10/17/20 10/18/20 22:53 05:50 Sodium 142 141 Potassium 3.9 4.4 Chloride 105 108 H Carbon Dioxide 30 25 BUN 35 H 33 H Creatinine 5.19 H* 4.90 H* Glucose 37 L* 172 H Calcium 9.1 8.7 Liver Function 10/17/20 Range/Units 22:53 Total Bilirubin 0.3 (0.2-1) mg/dl AST 21 (15-37) U/L ALT 33 (12-78) U/L Alkaline Phosphatase 81 (45-117) U/L Albumin 4.0 (3.4-5.0) gm/dl
[2020-10-18] MEDS: amLODIPine BESYLATE 5 MG TAB PO SCH (21:13)
[2020-10-18] MEDS: BENZTROPINE MESYLATE 0.5 MG TAB PO SCH (21:13)
[2020-10-18] MEDS: ATORVASTATIN 40 MG TAB PO SCH (21:13)
[2020-10-18] MEDS: ARIPiprazole 5 MG TAB PO SCH (21:13)
[2020-10-18] MEDS: lamoTRIgine 25 MG TAB PO SCH (21:13)
[2020-10-18] MEDS: MELATONIN 3 MG TAB PO SCH (21:14)
[2020-10-18] MEDS: SERTRALINE HCL 50 MG TABLET PO SCH (21:14)
[2020-10-18] MEDS: TEMAZEPAM 15 MG CAPSULE PO SCH (21:14)
[2020-10-18] MEDS: traZODone HCL 50 MG TAB PO PRN (21:20)
[2020-10-19] MEDS: LACTULOSE SYRUP 20 GM/30 ML UDC PO PRN (05:25)
[2020-10-19] MEDS: HEPARIN SOD 5,000 UNIT/0.5 ML VIAL SQ SCH ×3 (05:26→21:12)
[2020-10-19 06:19] LABS: Hematocrit (blood only) 29.7 % (37-47); Hemoglobin 9.6 g/dL (12.0-16.0); Mean Corpuscular Hemoglobin 30.3 pg (25-34); Mean Corpuscular Hgb Conc 32.3 g/dL (32-36); Mean Corpuscular Volume 93.7 fL (80-100); Mean Platelet Volume 9.8 fL (7.4-10.4); Platelet Count 278 K/uL (130-400); RDW Coefficient of Variation 15.1 % (11.5-14.5); Red Blood Count 3.17 M/uL (4.2-5.4); White Blood Count 3.57 K/uL (4.8-10.8)
[2020-10-19 07:13] LABS: BUN Creatinine Ratio 7.1 (10-20); Calcium 8.4 mg/dl (8.5-10.1); Est GFR (African American) 16.8; Est GFR (Non-African American) 14.5; Magnesium 2.2 mg/dl (1.8-2.4); Potassium 5.5 mmol/L (3.5-5.1)
[2020-10-19] MEDS: INSULIN ASPART 100 UNITS/ML 3 ML PEN SC SCH ×5 (07:29→21:14)
[2020-10-19] MEDS: INSULIN GLARGINE SOLOSTAR 100 UNITS/ML 3 ML PEN SC SCH (07:31)
[2020-10-19 07:40] LABS: Beta-Hydroxybutyrate 10.4 mg/dl (0.2-2.81)
[2020-10-19] MEDS: LUBIPROSTONE 8 MCG CAP PO SCH ×2 (09:16→17:28)
[2020-10-19] MEDS: SEVELAMER HCL 800 MG TABLET PO SCH ×3 (09:17→17:27)
[2020-10-19] MEDS: busPIRone 5 MG TAB PO SCH ×3 (09:18→20:22)
[2020-10-19] MEDS: levETIRAcetam 500 MG TAB PO SCH ×2 (09:18→20:24)
[2020-10-19] MEDS: ADVANCED PROBIOTIC 1250 MG CAPSULE PO SCH (09:18)
[2020-10-19] MEDS: DOCUSATE SODIUM 100 MG CAP PO SCH ×2 (09:18→20:24)
[2020-10-19] MEDS: POLYETHYLENE (MIRALAX) 17 GM PACK PO SCH ×3 (09:19→20:29)
[2020-10-19] MEDS: PANTOprazole 40 MG TAB PO SCH (09:19)
[2020-10-19] MEDS: SUCRALFATE 1 GM/10 ML UDC PO SCH ×2 (09:19→20:27)
[2020-10-19] MEDS ORDERED: Nursing to Pharmacy Communication SCH (10:15)
[2020-10-19] MEDS: ACETAMINOPHEN 325 MG TAB PO PRN ×2 (10:36→20:33)
--- NOTE | 2020-10-19 12:23 | Hospitalist Progress Note ---
Date of Service October 19, 2020 Assessment & Plan (1) Abdominal pain: Severe gastroparesis Constipation Recurrent Nausea, vomiting, abdominal pain -CT ABD:No evidence of bowel obstruction. No evidence of free air. No evidence of acute diverticulitis. Moderate fecal colonic load. Multiple bilateral renal calcifications. While most of the calcifications are vascular, a few small nonobstructing calculi cannot be excluded Continue bowel regimen for constipation Continue PPI, antiemetics Pain control GI recommendations noted. Plan for EGD and other treatment outpatient DM Type 1 Recurrent hypoglycemic episodes leading to multiple ER visits and admissions Hb 8.08 September 2020 Poor oral intake secondary to gastroparesis With improved intake today, blood sugar was 500 this morning. Continue to manage with insulin per protocol and mindful of avoiding hypoglycemic episodes Continue insulin therapy Monitor BGs Hypertension Controlled Continue amlodipine Chronic diastolic heart failure Nonocclusive CAD Volume status managed through dialysis Continue home medications COPD stable No signs of exacerbation ESRD on HD Continue HD per schedule while inpatient Mood disorder At baseline Continue home meds DVT Px: Heparin SQ Code Status Full code Plan to discharge home once symptoms are controlled Admission and Anticipated Discharge Date Admission Date: October 18, 2020 Subjective 50-year-old woman with chronic diastolic heart failure, nonocclusive CAD, end- stage renal disease on hemodialysis, DM type I, chronic anemia, chronic abdominal pain secondary to gastroparesis who presents to the ER complaining of abdominal pain, nausea vomiting. Patient seen and examined this morning Reports vomiting has resolved. Still reports some nausea and abdominal pain. Reported nausea is improved but still has abdominal pain. Reported 2 small bowel movement this morning Review of Systems Constitutional: no fever and no chills Eyes: no problem reported Ear, Nose, Mouth, Throat: no problem reported Respiratory: no cough, no chest congestion and no dyspnea Cardiovascular: no chest pain, no dyspnea and no palpitations Gastrointestinal: + abdominal pain and + nausea; no vomiting Genitourinary: no dysuria and no urinary frequency Neurologic: no dizziness, no headache(s) and no confusion Psychiatric: no depression and no anxiety Physical Exam Constitutional: + well hydrated; no acute distress Eyes: PERRL, conjunctivae normal, anicteric sclerae ENMT: external ear and nose normal, oropharynx normal Respiratory: normal respiratory effort, lungs clear to auscultation Cardiovascular: Rate/Rhythm: regular rate and regular rhythm S1-S2, no pedal edema Gastrointestinal (Abdomen): Inspection/Auscultation: normal bowel sounds Percussion/Palpation: + abdomen tender (Lower abdominal) and abdomen soft; no guarding and abdomen not rigid Musculoskeletal: no cyanosis or clubbing, extremities motor strength 5/5 Neurologic: PERRL, EOMI, accommodation nl, no face palsy, no dysarthria Psychiatric: A+Ox3, euthymic affect Results & Data Results & Data ([facility]) Vital Signs (Past 12 Hours) Vital Signs Temp Pulse Pulse Resp BP Pulse Ox 10/19/20 07:45 37.1 C 90 17 132/76 100 10/19/20 07:03 36.9 C 94 H 18 176/80 H 98 Laboratory Results Laboratory Results - last 24 hr 10/18/20 10/18/20 10/18/20 14:51 17:17 20:27 WBC RBC Hgb Hct MCV MCH MCHC RDW Std Deviation RDW Coeff of Lebron Plt Count MPV Sodium Potassium Chloride Carbon Dioxide Anion Gap BUN Creatinine Est Cr Clr Drug Dosing Est GFR ( Amer) Est GFR (Non-Af Amer) BUN/Creatinine Ratio Glucose POC Glucose 107 H 175 H 132 H Calcium Magnesium Beta-Hydroxybutyric Acd 10/19/20 10/19/20 10/19/20 05:19 05:19 07:21 WBC 3.57 L RBC 3.17 L Hgb 9.6 L Hct 29.7 L MCV 93.7 MCH 30.3 MCHC 32.3 RDW Std Deviation 52.0 H RDW Coeff of Lebron 15.1 H Plt Count 278 MPV 9.8 Sodium 134 L Potassium 5.5 H D Chloride 100 Carbon Dioxide 28 Anion Gap 6.0 BUN 25 H Creatinine 3.45 H D Est Cr Clr Drug Dosing 16.0 Est GFR ( Amer) 16.8 Est GFR (Non-Af Amer) 14.5 BUN/Creatinine Ratio 7.1 L Glucose 495 H* POC Glucose 598 H* Calcium 8.4 L Magnesium 2.2 Beta-Hydroxybutyric Acd 10.40 H 10/19/20 10/19/20 10/19/20 07:23 07:56 08:20 WBC RBC Hgb Hct MCV MCH MCHC RDW Std Deviation RDW Coeff of Lebron Plt Count MPV Sodium Potassium Chloride Carbon Dioxide Anion Gap BUN Creatinine Est Cr Clr Drug Dosing Est GFR ( Amer) Est GFR (Non-Af Amer) BUN/Creatinine Ratio Glucose POC Glucose 569 H* 565 H* 546 H* Calcium Magnesium Beta-Hydroxybutyric Acd 10/19/20 10/19/20 10/19/20 08:22 08:51 10:32 WBC RBC Hgb Hct MCV MCH MCHC RDW Std Deviation RDW Coeff of Lebron Plt Count MPV Sodium Potassium Chloride Carbon Dioxide Anion Gap BUN Creatinine Est Cr Clr Drug Dosing Est GFR ( Amer) Est GFR (Non-Af Amer) BUN/Creatinine Ratio Glucose POC Glucose 590 H* 527 H* 318 H* Calcium Magnesium Beta-Hydroxybutyric Acd 10/19/20 10/19/20 11:34 12:17 WBC RBC Hgb Hct MCV MCH MCHC RDW Std Deviation RDW Coeff of Lebron Plt Count MPV Sodium Potassium Chloride Carbon Dioxide Anion Gap BUN Creatinine Est Cr Clr Drug Dosing Est GFR ( Amer) Est GFR (Non-Af Amer) BUN/Creatinine Ratio Glucose POC Glucose 264 H 200 H Calcium Magnesium Beta-Hydroxybutyric Acd
[2020-10-19] MEDS ORDERED: bisacodyL 10 MG SUPP PR PRN (12:45)
[2020-10-19] MEDS: KETOROLAC TROMETHAMINE 15 MG/ML VIAL IV SCH ×3 (14:25→23:52)
[2020-10-19 16:05] LABS: Appearance Urine Clear (Clear); Bacteria Urine Automated Negative (Negative); Bilirubin Urine Negative (Negative); Blood Urine Negative (Negative); Cast Urine Automated 0 /lpf (0-5); Color Urine Yellow; Epithelial Cell Urine Auto >30 /lpf (0-5); Glucose Urine UA 2+ (Negative); Ketones Urine Trace (Negative); Leukocyte Esterase Urine Negative (Negative); Nitrite Urine Negative (Negative); RBC Urine Automated 0-4 /hpf (0-4); Specific Gravity Urine 1.015 (1.000-1.030); Urobilinogen Urine Negative (Negative); pH Urine >= 9.0 (4.5-7.5)
[2020-10-19 16:06] LABS: Protein Urine 2+ (Negative)
[2020-10-19] MEDS: SERTRALINE HCL 50 MG TABLET PO SCH (20:23)
[2020-10-19] MEDS: lamoTRIgine 25 MG TAB PO SCH (20:24)
[2020-10-19] MEDS: BENZTROPINE MESYLATE 0.5 MG TAB PO SCH (20:25)
[2020-10-19] MEDS: ATORVASTATIN 40 MG TAB PO SCH (20:25)
[2020-10-19] MEDS: ARIPiprazole 5 MG TAB PO SCH (20:25)
[2020-10-19] MEDS: MELATONIN 3 MG TAB PO SCH (20:26)
[2020-10-19] MEDS: amLODIPine BESYLATE 5 MG TAB PO SCH (20:26)
[2020-10-19] MEDS: TEMAZEPAM 15 MG CAPSULE PO SCH (20:32)
[2020-10-19] MEDS: traZODone HCL 50 MG TAB PO PRN (20:33)
[2020-10-20] MEDS: KETOROLAC TROMETHAMINE 15 MG/ML VIAL IV SCH ×2 (05:34→12:24)
[2020-10-20] MEDS: HEPARIN SOD 5,000 UNIT/0.5 ML VIAL SQ SCH ×2 (05:35→13:34)
[2020-10-20 05:59] LABS: Hematocrit (blood only) 28.5 % (37-47); Hemoglobin 9.4 g/dL (12.0-16.0); Mean Corpuscular Hemoglobin 30.4 pg (25-34); Mean Corpuscular Volume 92.2 fL (80-100); Mean Platelet Volume 9.5 fL (7.4-10.4); Platelet Count 258 K/uL (130-400); RDW Coefficient of Variation 14.7 % (11.5-14.5); Red Blood Count 3.09 M/uL (4.2-5.4); White Blood Count 3.51 K/uL (4.8-10.8)
[2020-10-20 06:36] LABS: BUN Creatinine Ratio 8.9 (10-20); Calcium 8.5 mg/dl (8.5-10.1); Creatinine Clr Calc Pharmacy 11.9 ml/min; Est GFR (African American) 11.7 ml/min; Est GFR (Non-African American) 10.1 ml/min; Magnesium 2.4 mg/dl (1.8-2.4); Phosphorus 3.2 mg/dl (2.5-4.9); Potassium 5.7 mmol/L (3.5-5.1)
[2020-10-20 06:52] LABS: Beta-Hydroxybutyrate 15.28 mg/dl (0.2-2.81)
[2020-10-20] MEDS ORDERED: INSULIN HUMAN REGULAR PER UNIT 4 UNITS in SYRINGE 0 ML IV ONE (06:55)
[2020-10-20] MEDS ORDERED: SODIUM CHLORIDE 0.9% 1000ML 1,000 ML IV PRN (07:00)
[2020-10-20] MEDS: ACETAMINOPHEN 325 MG TAB PO PRN (07:35)
[2020-10-20] MEDS: LUBIPROSTONE 8 MCG CAP PO SCH (07:42)
[2020-10-20] MEDS: SEVELAMER HCL 800 MG TABLET PO SCH ×2 (07:42→12:24)
[2020-10-20] MEDS ORDERED: EPOETIN ALFA 10,000 UNITS in SYRINGE 0 ML IV SCH (08:15)
[2020-10-20] MEDS ORDERED: EPOETIN ALFA 10,000 UNITS/ML VIAL SQ SCH (08:15)
[2020-10-20] MEDS: SUCRALFATE 1 GM/10 ML UDC PO SCH (08:17)
[2020-10-20] MEDS: DOCUSATE SODIUM 100 MG CAP PO SCH (08:19)
[2020-10-20] MEDS: busPIRone 5 MG TAB PO SCH ×2 (08:19→13:34)
[2020-10-20] MEDS: levETIRAcetam 500 MG TAB PO SCH (08:19)
[2020-10-20] MEDS: PANTOprazole 40 MG TAB PO SCH (08:19)
[2020-10-20] MEDS: POLYETHYLENE (MIRALAX) 17 GM PACK PO SCH (08:21)
[2020-10-20] MEDS: ADVANCED PROBIOTIC 1250 MG CAPSULE PO SCH (08:21)
[2020-10-20] MEDS: INSULIN ASPART 100 UNITS/ML 3 ML PEN SC SCH ×2 (08:28→12:46)
[2020-10-20] MEDS ORDERED: INSULIN GLARGINE SOLOSTAR 100 UNITS/ML 3 ML PEN SC SCH (09:00)
--- NOTE | 2020-10-20 11:11 | Dialysis Progress Note ---
Date of Service October 20, 2020 Assessment & Plan (1) Gastroparesis: As per Primary team. ?? Gastric pacemaker. ESRD--Conitnue HD today as Rxed. NO fluid overload and no electrolyte issues. BP does get low usually with dialysis. AVF fine. Admission and Anticipated Discharge Date Admission Date: October 18, 2020 Subjective Seen during Dialysis. AVF fine. BP fine. So far tolerating fine. Review of Systems Constitutional: no fever and no chills Eyes: no problem reported Ear, Nose, Mouth, Throat: no problem reported Respiratory: no cough, no chest congestion and no dyspnea Cardiovascular: no chest pain, no dyspnea and no palpitations Gastrointestinal: + abdominal pain and + nausea; no vomiting Genitourinary: no dysuria and no urinary frequency Neurologic: no dizziness, no headache(s) and no confusion Psychiatric: no depression and no anxiety Physical Exam Constitutional: + well hydrated; no acute distress Eyes: PERRL, conjunctivae normal, anicteric sclerae ENMT: external ear and nose normal, oropharynx normal Respiratory: normal respiratory effort, lungs clear to auscultation Cardiovascular: Rate/Rhythm: regular rate and regular rhythm S1-S2, no pedal edema Gastrointestinal (Abdomen): Inspection/Auscultation: normal bowel sounds Percussion/Palpation: + abdomen tender (Lower abdominal) and abdomen soft; no guarding and abdomen not rigid Musculoskeletal: no cyanosis or clubbing, extremities motor strength 5/5 Neurologic: PERRL, EOMI, accommodation nl, no face palsy, no dysarthria Psychiatric: A+Ox3, euthymic affect Results & Data ([facility]) Vital Signs (Past 12 Hours) Vital Signs Temp Pulse Pulse Pulse Resp BP BP 10/20/20 10:40 76 127/61 10/20/20 10:20 78 125/56 L 10/20/20 10:00 79 112/67 10/20/20 09:40 79 135/62 10/20/20 09:20 84 146/68 H 10/20/20 09:00 86 135/86 10/20/20 08:49 36.5 C 85 10/20/20 07:49 36.7 C 85 18 120/74 Pulse Ox 10/20/20 10:40 10/20/20 10:20 10/20/20 10:00 10/20/20 09:40 10/20/20 09:20 10/20/20 09:00 10/20/20 08:49 10/20/20 07:49 99
--- NOTE | 2020-10-20 12:38 | Discharge Summary ---
Date of Service October 20, 2020 Admission HPI Per Admitting Provider Medical history significant for chronic diastolic heart failure (EF 74%, DSE 2019), nonocclusive CAD as per records, HTN, hx orthostatic hypotension as per records, history CVA, COPD, hx DM1, ESRD on HD, chronic anemia (baseline hemoglobin 9-10), mood disorder, past tobacco abuse, medication noncompliance as per records, history of seizures as per records, chronic abdominal pain secondary to gastroparesis as per records. Multiple confinements and ER visits at [facility] and [facility] the last few months for chronic abdominal pain and hypoglycemia symptoms. Recent [facility] confinement 3 weeks ago for hypertensive crisis, gastroparesis. Patient discharged on Amlodipine. Patient seen by GI during confinement. Abdominal pain attributed to gastroparesis in the setting of uncontrolled DM. Reglan 3 times daily premeals, small frequent meals, low residue diet recommended. MiraLAX twice daily recommended for constipation. Patient had outpatient [facility] GI office follow-up last week. Reglan stop as medication not efficacious and concerns for tardive dyskinesia as per documentation. Consider evaluation by tertiary center for gastric stimulator placement. Patient had worsening abdominal pain, increased nausea vomiting symptoms at home despite compliance with home medications. Appetite okay as per patient. Patient denies headache, chest pain, S OB. Patient brought to the ER for evaluation. Noted to be hypoglycemic. No recent change in insulin regimen as per patient. Medical History as above Hemodialysis, Saturday Surgical History : Vascular procedures, appendectomy, cholecystectomy, BTL, eye surgery, breast lesion excision Family History : Diabetes, breast cancer, heart disease, ovarian cancer, thyroid disease Personal/Social history : Past tobacco abuse, no EtOH intake, disabled Admission Exam Per Admitting Provider GENERAL: Slightly uncomfortable, slightly anxious, chronically ill, no respiratory distress SKIN: Pallor, warm HEENT: Pale palpebral conjunctivae, no ptosis, dry buccal mucosa NECK : Supple, no tenderness CHEST : CTA, no tenderness HEART : RRR, no obvious murmurs ABDOMEN: Some distention, hypogastric tenderness EXTREMITIES : No LE swelling/tenderness, no other conspicuous deformities noted NEUROLOGIC : Coherent, no facial asymmetry, no other gross focality Principal Diagnosis Abdominal pain Gastroparesis Discharge Exam Constitutional + well hydrated; no acute distress Eyes PERRL, conjunctivae normal, anicteric sclerae ENMT external ear and nose normal, oropharynx normal Respiratory normal respiratory effort, lungs clear to auscultation Cardiovascular Rate/Rhythm: regular rate and regular rhythm S1 S2. No pedal edema Gastrointestinal (Abdomen) Inspection/Auscultation: normal bowel sounds Percussion/Palpation: abdomen soft; abdomen nontender, no guarding and abdomen not rigid Musculoskeletal no cyanosis or clubbing, extremities motor strength 5/5 Neurologic PERRL, EOMI, accommodation nl, no face palsy, no dysarthria Psychiatric A+Ox3, euthymic affect Discharge Data Allergies Allergy/AdvReac Type Severity Reaction Status Date / Time Fish Containing Products Allergy Mild Hives Verified 10/17/20 23:14 latex Allergy Mild hives Verified 10/17/20 23:14 shellfish derived Allergy Mild Hives Verified 10/17/20 23:14 Consultations 10/18/20 00:23 ED Decision to Admit Stat 10/18/20 03:33 Consult Gastroenterology Routine Consult Nephrology Routine Procedures Performed Operation Date: 10/18/20 17:30 <No data on this case meets the specified criteria> Ordered Studies 10/17/20 22:34 CT abd pelvis wo con Urgent Lower chest: There are basilar atelectatic changes. Liver: The unenhanced liver is normal in size, contour, and attenuation. There is no intrahepatic biliary ductal dilatation. Gallbladder: Surgically absent Spleen: Normal in size and attenuation. Pancreas: Unremarkable. Adrenal glands: Unremarkable. Kidneys: There are multiple bilateral renal calcifications, most of which appear vascular. No ureteral or bladder calculi are visualized. Bowel: There are no transition zones to indicate bowel obstruction. There is moderate colonic fecal load. There are multiple fluid-filled small bowel loops. There is borderline rectosigmoid wall thickening. There is no evidence of acute diverticulitis. By history the appendix is surgically absent Peritoneum: There is no intraperitoneal free air or abdominal ascites. Vasculature: The abdominal aorta is normal in course and caliber. Adenopathy: None. Pelvic viscera: There is an indwelling IUD Skeletal structures: There are anterior abdominal wall nodules likely secondary to injection sites IMPRESSION: 1. No evidence of bowel obstruction. No evidence of free air 2. No evidence of acute diverticulitis. 3. Moderate fecal colonic load 4. Multiple bilateral renal calcifications. While most of the calcifications are vascular, a few small nonobstructing calculi cannot be excluded Hospital Course (1) Abdominal pain: Severe gastroparesis Constipation Recurrent Nausea, vomiting, abdominal pain -CT ABD:No evidence of bowel obstruction. No evidence of free air. No evidence of acute diverticulitis. Moderate fecal colonic load. Multiple bilateral renal calcifications. While most of the calcifications are vascular, a few small nonobstructing calculi cannot be excluded Patient's abdominal pain was managed medically Constipation resolved with medical treatment Reports significant improvement with abd pain. Stated she occasionally gets mild pain but not as much as on presentation Was evaluated by Gastroenterology Plan for EGD and other treatment outpatient DM Type 1 Recurrent hypoglycemic episodes leading to multiple ER visits and admissions Hb 8.08 September 2020 Hypoglycemic episodes due to Poor oral intake secondary to gastroparesis Resolved with increased oral intake Patient to continue home insulin regimen on discharge Advised to hold short acting insulin if she misses a meal Hypertension Controlled Continue amlodipine Chronic diastolic heart failure Nonocclusive CAD Volume status managed through dialysis Continue home medications COPD stable No signs of exacerbation ESRD on HD Continue HD per schedule while inpatient Mood disorder At baseline Continue home meds Total Time Total Time Spent Total Time Spent (In Minutes): 40 Total Time Includes: Examination of the Patient, Discharge Planning, Medication Reconciliation and Communication With Other Providers Discharge Plan Discharge Items Patient Disposition: Home - Home Health Services Reason For Visit: HYPOGLECEMIA, ABD PAIN Discharge Diagnosis: Abdominal pain (chronic intermittent abdominal pain) Condition on Discharge: Fair Activity: Resume your previous activity Non-emergency contact: Primary Care Provider and [employer] Call non-emergency contact if: you have any medication questions and your sy mptoms worsen Follow-up/Referrals: iMtchel Santo MD [Primary Care Provider] - 10/27/20 2:40 pm (Date & Time 10/27/2020 2:40 PM Provider Pardeep Anguiano MD Department [facility] ) Diet: Carb Count or DM1 and Dialysis Renal Addtl Attending Provider Instructions: Ms Luu You presented to the hospital due to increased abdominal pain, nausea and vomiting at home. You were evaluated and treated medically Your symptoms improved It is very important that you follow up with Gastroenterology as we discussed. Please take your medications as prescribed. Please only take your short acting insulin with meals It was a pleasure taking care of you. Pending Studies at Discharge: No Stand-Alone Forms: My [facility], Smoking Cessation Medications and DC Order Prescriptions: Continued aripiprazole [Abilify] 5 mg tablet 5 mg PO HS RF: 0 atorvastatin [Lipitor] 40 mg tablet 40 mg PO HS RF: 0 trazodone 150 mg tablet 75 mg PO HS PRN (Reason: Sleep) RF: 0 temazepam [Restoril] 15 mg capsule 15 mg PO HS RF: 0 hydroxyzine HCl 25 mg tablet 25 mg PO TID PRN (Reason: Anxiety) RF: 0 trimethobenzamide 300 mg Capsule 300 mg PO TID PRN (Reason: NAUSEA/VOMITING) RF: 0 levetiracetam [Keppra] 500 mg tablet 500 mg PO BID RF: 0 melatonin 3 mg Tablet 3 mg PO HS RF: 0 lamotrigine [Lamictal] 25 mg tablet 50 mg PO HS RF: 0 ergocalciferol (vitamin D2) [Vitamin D2] 1,250 mcg (50,000 unit) Capsule 50,000 unit PO FR RF: 0 sertraline [Zoloft] 50 mg tablet 75 mg PO HS RF: 0 insulin lispro [Admelog SoloStar U-100 Insulin] 100 unit/mL Insulin Pen 7 unit SUBCUT TIDM RF: 0 sevelamer carbonate 800 mg Tablet 800 mg PO TIDM RF: 0 benztropine 0.5 mg tablet 0.5 mg PO HS RF: 0 lactulose 10 gram/15 mL Solution 10 g PO BID PRN (Reason: Constipation) Qty: 200 RF: 0 lubiprostone 24 mcg Capsule 24 mcg PO BIDM RF: 0 polyethylene glycol 3350 [Miralax] 17 gram Powder In Packet 17 g PO BID Qty: 60 RF: 0 amlodipine [Norvasc] 5 mg Tablet 2.5 mg PO HS Qty: 30 RF: 0 Lantus Solostar U-100 Insulin 100 unit/mL (3 mL) insulin pen 12 unit SC DAILY RF: 0 buspirone 10 mg tablet 10 mg PO TID RF: 0 metoclopramide HCl 5 mg tablet 5 mg PO TID PRN (Reason: Nausea) RF: 0 pantoprazole 40 mg Tablet,Delayed Release (Dr/Ec) 40 mg PO QAM Qty: 30 RF: 0 sucralfate 100 mg/mL Suspension 10 ml PO BID 30 Days Qty: 600 RF: 1 Advanced Probiotic 625 mg (10 billion cell) capsule 2 cap PO QAM RF: 0 Discharge Orders: Discharge Order (Routine); Ordered 10/20/20 Ordered By: Magda Walsh Admission Data Admit Date/Time: 10/18/20 01:57 Attending Provider: Magda Walsh I. Admit Provider: Pardeep Archer Primary Care Provider: Mitchel Santo Other Providers: Gabby Hickey ; Liyah Valle ; Jayden Castaneda ; Maryam Escalante ; Juan Samayoa ; Suzie Tolliver ; Hayden Enrique ; Denton Carrera ; Jesus Aiken ; Elmira Messer ; Hattie Ortiz ; Andra Boggs ; Tracee Mcneill ; Timothy Pino ; Nahomy Mejias ; Neil Monroe ; Mariela Priest ; Catherine Pacheco ; Stanley Donaldson ; Aman Doyle ; [facility] ; Dawson Mohamud ; Pardeep Archer Other Interventions: Discharge Summary Assessment (RN) Last Done: 10/20/20 12:56
[2020-10-21] MEDS ORDERED: ERGOCALCIFEROL 50,000 UNITS 1250 MCG CAP PO SCH (09:00)
== END 2020-10-20 14:04 | disposition home health service (06) ==
LOC: 3E 22:12 → ED 22:12 → SUATTDRO 10-18 01:57 → 3E 10-18 03:16
DX: E78.5 Hyperlipidemia, unspecified; I13.2 Hypertensive heart and chronic kidney disease with heart failure and with stage 5 chronic kidney disease, or end stage renal disease; J44.9 Chronic obstructive pulmonary disease, unspecified; K31.84 Gastroparesis; K21.9 Gastro-esophageal reflux disease without esophagitis; Z86.73 Personal history of transient ischemic attack (TIA), and cerebral infarction without residual deficits; D63.1 Anemia in chronic kidney disease; Z91.013 Allergy to seafood; I50.32 Chronic diastolic (congestive) heart failure; E10.22 Type 1 diabetes mellitus with diabetic chronic kidney disease; N18.6 End stage renal disease; Z91.040 Latex allergy status; Z87.891 Personal history of nicotine dependence; I25.10 Atherosclerotic heart disease of native coronary artery without angina pectoris

== ENCOUNTER 2021-01-23 17:37 | Inpatient (IN) ==
[2021-01-23] MEDS ORDERED: ONDANSETRON INJ 2 MG/ML 2 ML VIAL IV STA ×2 (19:50→21:02)
[2021-01-23 20:23] LABS: Basophils # (auto) 0.03 K/uL (0-0.2); Basophils % (auto) 0.5 %; Eosinophils # (auto) 0.17 K/uL (0-0.5); Hemoglobin 11.6 g/dL (12.0-16.0); Immature Granulocytes # (auto) 0.01 K/uL (0.00-0.02); Immature Granulocytes % (auto) 0.2 %; Lymphocytes # (auto) 1.68 K/uL (1.2-3.4); Lymphocytes % (auto) 29.9 %; Mean Corpuscular Hemoglobin 29.4 pg (25-34); Mean Corpuscular Hgb Conc 33.1 g/dL (32-36); Mean Corpuscular Volume 88.6 fL (80-100); Mean Platelet Volume 10.3 fL (7.4-10.4); Monocytes # (auto) 0.27 K/uL (0.11-0.59); Monocytes % (auto) 4.8 %; Neutrophils # (auto) 3.45 K/uL (1.4-6.5); Neutrophils % (auto) 61.6 %; Platelet Count 319 K/uL (130-400); RDW Coefficient of Variation 16.8 % (11.5-14.5); RDW Standard Deviation 55.1 fL (36.4-46.3); Red Blood Count 3.95 M/uL (4.2-5.4); White Blood Count 5.61 K/uL (4.8-10.8)
[2021-01-23 20:56] LABS: Albumin Globulin Ratio 0.9 (0.9-2); Albumin Level 3.9 gm/dl (3.4-5.0); BUN Creatinine Ratio 13.3 (10-20); Bilirubin,Total 0.5 mg/dl (0.2-1); Calcium 9.7 mg/dl (8.5-10.1); Creatinine Clr Calc Pharmacy 11.7 ml/min; Est GFR (African American) 11.5 ml/min; Est GFR (Non-African American) 9.9 ml/min; Globulin 4.5 gm/dl (2.5-4.0); Potassium 5.3 mmol/L (3.5-5.1); Total Protein 8.4 gm/dl (6.4-8.2)
[2021-01-23] MEDS ORDERED: HYDROmorphone INJ 1 MG/ML SYRINGE IV STA (21:02)
[2021-01-23] MEDS ORDERED: CALCIUM GLUCONATE 10% 1,000 MG in SODIUM CHLORIDE 0.9% 50 ML IV STA (21:02)
[2021-01-23] MEDS ORDERED: INSULIN HUMAN REGULAR PER UNIT 5 UNITS in SYRINGE 9.9 ML IV STA (21:02)
[2021-01-23] MEDS ORDERED: NovoLIN-R INSULIN PER UNIT CHARGE ONE ×2 (21:16→22:08)
[2021-01-23] MEDS ORDERED: CALCIUM GLUCONATE 1000 MG/60 ML NSS IV ONE (21:17)
[2021-01-23] MEDS ORDERED: NovoLIN-R INSULIN PER UNIT CHARGE IV STA (22:06)
[2021-01-23 22:08] LABS: iSTAT Creatinine 4.6 mg/dl (0.6-1.3); iSTAT Hemoglobin 10.9 g/dl (12.0-16.0); iSTAT Ionized Calcium 1.28 mmol/l (1.12-1.32); iSTAT Potassium 4.3 mmol/L (3.3-5.0)
[2021-01-23 23:29] LABS: Blood Urea Nitrogen 63 mg/dl (7-18); Calcium 9.4 mg/dl (8.5-10.1); Carbon Dioxide 19 mmol/L (21-32); Chloride 104 mmol/L (98-107); Creatinine Clr Calc Pharmacy 11.4 ml/min; Est GFR (African American) 11.1 ml/min; Est GFR (Non-African American) 9.6 ml/min; Glucose 386 mg/dl (70-99); Potassium 4.4 mmol/L (3.5-5.1); Sodium 138 mmol/L (136-145)
[2021-01-23] MEDS ORDERED: STAT IV Infusion **Titration per Protocol STA (23:31)
[2021-01-23] MEDS ORDERED: GLUCAGON FOR INJ 1 MG VIAL SQ PRN (23:31)
[2021-01-23] MEDS ORDERED: GLUCOSE 40% GEL 15 GM TUBE PO PRN (23:31)
[2021-01-23] MEDS ORDERED: GLUCOSE 10 TABS/TUBE PO PRN (23:31)
[2021-01-23] MEDS ORDERED: DEXTROSE 50% 50 ML SYRINGE IV PRN (23:31)
[2021-01-23] MEDS ORDERED: CARBOHYDRATES FOR HYPOGLYCEMIA PO PRN (23:31)
--- NOTE | 2021-01-23 23:42 | Emergency Department Note ---
History of Present Illness General Chief complaint: Abdominal Pain Stated complaint: VOMITING, ABD PAIN Time Seen by Provider: 01/23/21 19:39 History of Present Illness Provider complaint: Nausea vomiting abdominal pain Onset (ago): day(s) 1 Location: abdomen Radiation: non-radiation Severity: moderate Pain Consistency: + intermittent Maximum Pain Intensity: 5 Current Pain Intensity: 5 Quality: + aching Relieved By: + none Exacerbated By: + none Associated symptoms: + nausea/vomiting; no chest pain, no cough, no fever/chills, no headaches, no rash, no seizure, no shortness of breath, no syncope or no weakness 50-year-old female end-stage renal disease on hemodialysis Saturday presents emergency department for abdominal pain nausea and vomiting. Patient states her symptoms started today. She states she got a full dose of dialysis on Saturday. Patient denies any fevers. She denies any loss of taste or smell. She denies any cough. No hematemesis coffee-ground emesis or bilious vomiting. Home Medications Medication Instructions Recorded Confirmed Type aripiprazole 5 mg tablet (Abilify) 5 mg PO HS 05/20/19 01/23/21 History levetiracetam 500 mg tablet 750 mg PO BID 06/20/19 01/23/21 History (Keppra) atorvastatin 40 mg tablet (Lipitor) 40 mg PO HS 08/01/19 01/23/21 History melatonin 3 mg tablet 3 mg PO HS 01/29/20 01/23/21 History hydroxyzine HCl 25 mg tablet 25 mg PO TID PRN 02/20/20 01/23/21 History temazepam 15 mg capsule (Restoril) 15 mg PO HS 02/20/20 01/23/21 History trazodone 150 mg tablet 75 mg PO HS PRN 02/20/20 01/23/21 History trimethobenzamide 300 mg capsule 300 mg PO TID PRN 03/21/20 01/23/21 History benztropine 0.5 mg tablet 0.5 mg PO HS 07/27/20 01/23/21 History ergocalciferol (vitamin D2) 1,250 50,000 unit PO WK 07/27/20 01/23/21 History mcg (50,000 unit) capsule (Vitamin D2) insulin lispro 100 unit/mL 0 unit SUBCUT TIDM 07/27/20 01/23/21 History subcutaneous pen (Admelog SoloStar U-) lamotrigine 25 mg tablet (Lamictal) 50 mg PO HS 07/27/20 01/23/21 History sertraline 50 mg tablet (Zoloft) 75 mg PO HS 07/27/20 01/23/21 History sevelamer carbonate 800 mg tablet 800 mg PO TIDM 07/27/20 01/23/21 History lactulose 10 gram/15 mL oral 10 g PO BID PRN #200 ml 07/31/20 01/23/21 Rx solution buspirone 10 mg tablet 10 mg PO TID 08/16/20 01/23/21 History metoclopramide HCl 5 mg tablet 5 mg PO TID PRN 08/16/20 01/23/21 History pantoprazole 40 mg tablet,delayed 40 mg PO QAM #30 tab 08/21/20 01/23/21 Rx release sucralfate 100 mg/mL oral 10 ml PO BID 30 Days #600 ml 08/21/20 01/23/21 Rx suspension lubiprostone 24 mcg capsule 24 mcg PO BIDM 09/09/20 01/23/21 History L.acidop,casei,lactis,rham-B.lact,tim 2 cap PO QAM 09/25/20 01/23/21 History 625 mg (10 billion cell) capsule (Advanced Probiotic) amlodipine 5 mg tablet (Norvasc) 2.5 mg PO HS #30 tab 10/05/20 01/23/21 Rx polyethylene glycol 3350 17 gram 17 g PO BID #60 ea 10/05/20 01/23/21 Rx oral powder packet (Miralax) insulin glargine 100 unit/mL (3 12 unit SC DAILY 10/17/20 01/23/21 History mL) subcutaneous pen (Lantus Solostar U-100 Insulin) ondansetron HCl 4 mg tablet 4 mg PO Q6H PRN #10 tab 10/25/20 01/23/21 Rx (Zofran) oxycodone 5 mg tablet 5 mg PO Q6 PRN #5 tab 10/25/20 01/23/21 Rx Allergies Allergy/AdvReac Type Severity Reaction Status Date / Time Fish Containing Products Allergy Mild Hives Verified 01/23/21 22:42 latex Allergy Mild hives Verified 01/23/21 22:42 shellfish derived Allergy Mild Hives Verified 01/23/21 22:42 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 history of CVA in 2018 Residual R sided weakness Depression Diabetic gastroparesis Diastolic heart failure DM type 1 (diabetes mellitus, type 1) ESRD (end stage renal disease) on dialysis GERD (gastroesophageal reflux disease) History of GI bleed Hyperlipidemia Hypertension Seizure Surgical History Hx of appendectomy Hx of cholecystectomy Hx of tubal ligation Family History Mother Coronary heart disease Hypertension Father Coronary heart disease Social History Smoking Status: Never smoker Tobacco Type: Cigarettes Second Hand Exposure: No; Hx Alcohol Use: No Hx Substance Use: No Preferred Language: [place] Communication Ability: Effective Regional Loss Prevention Manager Required: No Beliefs That Will Affect Care: None marital status: Current Living Situation: Significant Other current occupational status: unemployed Feels Safe at Home: Yes Assistive Devices: None Review of Systems A total of 10 systems reviewed and were otherwise negative Physical Exam Vital Signs Vital Signs - 24 hr 01/23/21 17:54 01/23/21 20:30 01/23/21 21:26 Temperature 36.3 C L Temperature Source Temporal Artery Scan Pulse Rate 83 86 Pulse Rate [Right Radial] Pulse Rate from SpO2 Sensor 85 85 Pulse Rhythm Regular Pulse Strength Normal Respiratory Rate 18 12 Respiratory Effort / Characteristics Non-Labored Spontaneous Respiratory Depth Normal Respiratory Pattern Regular Blood Pressure 223/89 H 199/86 H Blood Pressure [Right Arm] Blood Pressure Mean 133 123 Blood Pressure Mean [Right Arm] Blood Pressure Position Sitting Pulse Oximetry 99 100 99 Oxygen Delivery Method Room Air Sepsis Recent Fever Within 48 Hours No Sepsis New/Unexplained Change in Mental Status No Sepsis Action Taken by Nursing No Action Required 01/23/21 21:30 01/23/21 21:38 01/23/21 22:00 Temperature 36.3 C L Temperature Source Temporal Artery Scan Pulse Rate Pulse Rate [Right Radial] 88 Pulse Rate from SpO2 Sensor 85 87 Pulse Rhythm Pulse Strength Respiratory Rate 18 Respiratory Effort / Characteristics Non-Labored Spontaneous Respiratory Depth Normal Respiratory Pattern Regular Blood Pressure 176/79 H 185/121 H Blood Pressure [Right Arm] 176/79 H Blood Pressure Mean 111 142 Blood Pressure Mean [Right Arm] 111 Blood Pressure Position Pulse Oximetry 98 99 99 Oxygen Delivery Method Room Air Sepsis Recent Fever Within 48 Hours Sepsis New/Unexplained Change in Mental Status Sepsis Action Taken by Nursing 01/23/21 22:30 01/23/21 23:00 Temperature Temperature Source Pulse Rate Pulse Rate [Right Radial] Pulse Rate from SpO2 Sensor 88 84 Pulse Rhythm Pulse Strength Respiratory Rate Respiratory Effort / Characteristics Respiratory Depth Respiratory Pattern Blood Pressure 181/81 H 168/76 H Blood Pressure [Right Arm] Blood Pressure Mean 114 106 Blood Pressure Mean [Right Arm] Blood Pressure Position Pulse Oximetry 99 98 Oxygen Delivery Method Sepsis Recent Fever Within 48 Hours Sepsis New/Unexplained Change in Mental Status Sepsis Action Taken by Nursing Physical Exam GENERAL: She is oriented to person, place, and time. She appears well-developed and well-nourished. She does not appear distressed. HENT: Exam performed. -Head: Normocephalic and atraumatic. -Right Ear: External ear normal. No mastoid tenderness. -Left Ear: External ear normal. No mastoid tenderness. -Mouth/Throat: The oropharynx is clear and moist. No trismus in the jaw. No dental abscesses or uvula swelling. No oropharyngeal exudate or tonsillar abscesses. EYES: Conjunctivae and EOM are normal. Pupils are equal, round, and reactive to light. Right eye exhibits no discharge. Left eye exhibits no discharge. No scleral icterus. NECK: Normal range of motion. Neck supple. No JVD present. No spinous process tenderness present. No carotid bruit present. No rigidity. No tracheal deviation and normal range of motion present. No Brudzinski's sign and no Kernig's sign no magnolia. CV: Normal rate, regular rhythm, normal heart sounds and intact distal pulses. There is no peripheral edema. Palpable radial pulses bue. PULM/CHEST: Effort normal and breath sounds normal. No respiratory distress. No stridor. She has no wheezes. She has no rales. -Chest Wall: She exhibits no tenderness. ABD: The abdomen is soft. Bowel sounds are normal. She has no distension. No mass is present. There is no tenderness. There is no rebound, no guarding, no Sanches's sign and no tenderness at McBurney's point. Rovsig negative MUSC/SKEL: AV fistula left upper extremity with palpable thrill. LYMPH: No cervical adenopathy. NEURO: She is alert and oriented to person, place, and time. She has normal strength. No cranial nerve deficit or sensory deficit. Coordination and gait normal. GCS eye subscore is 4. GCS verbal subscore is 5. GCS motor subscore is 6. Cerebellar tests wnl. SKIN: Skin is warm and dry. She is not diaphoretic. PSYCH: She has a normal mood and affect. Behavior is normal. Judgment and thought content normal. Course Course 193: The patient was evaluated in room B10. A complete history and physical exam was performed Cardiac monitoring: An order was placed for continuous cardiac monitoring. The monitor shows a rate of 90 with sinus rhythm 2100: Vital signs stable.Labs show potassium of 5.3. Creatinine at baseline with 4.7. Glucose 396. Anion gap 13. Acute abdominal series shows no free air under the abdomen and no air-fluid levels. Patient will be given calcium gluconate 1 g and 5 units of insulin and then we will recheck to make sure the anion gap is closed we will plan on discharging patient home. Patient is due for dialysis tomorrow and thus no IV fluids to be given to the patient at this time. 2200: Patient's blood sugar has actually worsened to 501. Patient denies eating anything while in the emergency department. We will give the patient 10 units of insulin IV push and then recheck a metabolic profile. 2350: Vital signs stable. Status post second bolus of insulin, the patient's glucose is 386 with an anion gap of 15. Given the patient's resistant hyp erglycemia and persistent anion gap, the patient will be started on insulin drip and admitted to the hospital for DKA. Discussed the case with [facility] hospitalist Dr. Altamirano who will evaluate the patient for admission. Administered Medications Discontinued Medications Calcium Gluconate (Calcium Gluconate 1000 Mg/60 Ml Nss) Confirm Administered Dose 1,000 mg IV .STK-MED ONE Stop: 01/23/21 21:18 Last Admin: 01/23/21 21:18 Dose: 1,000 mg Documented by: [id number] Hydromorphone HCl (Hydromorphone Inj 1 Mg/Ml Syringe) 0.5 mg IV NOW STA Stop: 01/23/21 21:03 Last Admin: 01/23/21 21:19 Dose: 0.5 mg Documented by: [id number] Calcium Gluconate 1,000 mg/ (Sodium Chloride) 60 mls @ 240 mls/hr IV NOW STA Stop: 01/23/21 21:16 Last Admin: 01/23/21 21:19 Dose: Not Given Documented by: [id number] Insulin Human Regular 5 units/ (Syringe) 9.9 mls @ 3 mls/sec IV ONE STA Stop: 01/23/21 21:03 Last Admin: 01/23/21 21:19 Dose: 3 mls/sec Documented by: [id number] Cosigned by: [id number] Insulin Human Regular (Novolin-R Insulin Per Unit Charge) Confirm Administered Dose 5 units .ROUTE .STK-MED ONE Stop: 01/23/21 21:17 Last Admin: 01/23/21 21:19 Dose: Not Given Documented by: [id number] Insulin Human Regular (Novolin-R Insulin Per Unit Charge) 10 units IV NOW STA Stop: 01/23/21 22:07 Last Admin: 01/23/21 22:10 Dose: 10 units Documented by: [id number] Cosigned by: [id number] Insulin Human Regular (Novolin-R Insulin Per Unit Charge) Confirm Administered Dose 5 units .ROUTE .STK-MED ONE Stop: 01/23/21 22:09 Last Admin: 01/23/21 23:07 Dose: Not Given Documented by: [id number] Ondansetron HCl (Ondansetron Inj 2 Mg/Ml 2 Ml Vial) 4 mg IV NOW STA Stop: 01/23/21 19:51 Last Admin: 01/23/21 20:15 Dose: 4 mg Documented by: [id number] Ondansetron HCl (Ondansetron Inj 2 Mg/Ml 2 Ml Vial) 4 mg IV NOW STA Stop: 01/23/21 21:03 Last Admin: 01/23/21 21:19 Dose: 4 mg Documented by: [id number] Critical Care Time Critical Care Time: Yes Total Critical Care Time: 52 I have personally spent greater than 52 minutes of critical care time in the direct management of this patient. This includes bedside care, interpretation of diagnostic studies, and testing, discussion with consultants, patient, and family members, and other required patient management activities. This 52 minutes is in excess of all separately billable procedures. Medical Decision Making Laboratory Data Result diagrams: 01/23/21 20:13 01/23/21 22:43 Lab Results 01/23/21 01/23/21 01/23/21 Range/Units 20:13 20:13 21:55 WBC 5.61 (4.8-10.8) K/uL RBC 3.95 L (4.2-5.4) M/uL Hgb 11.6 L (12.0-16.0) g/dL POC Hgb 10.9 L (12.0-16.0) g/dl Hct 35.0 L (37-47) % POC Hct 32 L (37-47) % MCV 88.6 (80-100) fL MCH 29.4 (25-34) pg MCHC 33.1 (32-36) g/dL RDW Std Deviation 55.1 H (36.4-46.3) fL RDW Coeff of Lebron 16.8 H (11.5-14.5) % Plt Count 319 (130-400) K/uL MPV 10.3 (7.4-10.4) fL Immature Gran % (Auto) 0.2 % Neut % (Auto) 61.6 % Lymph % (Auto) 29.9 % Cabell % (Auto) 4.8 % Eos % (Auto) 3.0 % Baso % (Auto) 0.5 % Neut # (Auto) 3.45 (1.4-6.5) K/uL Lymph # (Auto) 1.68 (1.2-3.4) K/uL Cabell # (Auto) 0.27 (0.11-0.59) K/uL Eos # (Auto) 0.17 (0-0.5) K/uL Baso # (Auto) 0.03 (0-0.2) K/uL Immature Gran # (Auto) 0.01 (0.00-0.02) K/uL POC Sodium 137 (135-144) mmol/L Sodium 135 L (136-145) mmol/L POC Potassium 4.3 (3.3-5.0) mmol/L Potassium 5.3 H (3.5-5.1) mmol/L POC Chloride 102 (101-112) mmol/L Chloride 100 (98-107) mmol/L Carbon Dioxide 22 (21-32) mmol/L POC Total CO2 18 L (24-31) mmol/L Anion Gap 13.0 H (3-11) POC Anion Gap 23.0 (16-25) mmol/L POC BUN 56 H (7-18) mg/dl BUN 62 H (7-18) mg/dl Creatinine 4.71 H* (0.6-1.2) mg/dl POC Creatinine 4.6 H* (0.6-1.3) mg/dl Est Cr Clr Drug Dosing 11.7 ml/min Est GFR ( Amer) 11.5 ml/min Est GFR (Non-Af Amer) 9.9 ml/min BUN/Creatinine Ratio 13.3 (10-20) Glucose 396 H* (70-99) mg/dl POC Glucose (70-99) mg/dl POC Glucose (other) 501 H* (70-99) mg/dl Calcium 9.7 (8.5-10.1) mg/dl POC Ioniz Calcium Brittany 1.28 (1.12-1.32) mmol/l Total Bilirubin 0.5 (0.2-1) mg/dl AST 15 (15-37) U/L ALT 23 (12-78) U/L Alkaline Phosphatase 116 (45-117) U/L Total Protein 8.4 H (6.4-8.2) gm/dl Albumin 3.9 (3.4-5.0) gm/dl Globulin 4.5 H (2.5-4.0) gm/dl Albumin/Globulin Ratio 0.9 (0.9-2) Lipase 80 (73-393) U/L Beta-Hydroxybutyric Acd (0.2-2.81) mg/dl Specimen Hemolysis 01/23/21 01/23/21 Range/Units 22:05 22:43 WBC (4.8-10.8) K/uL RBC (4.2-5.4) M/uL Hgb (12.0-16.0) g/dL POC Hgb (12.0-16.0) g/dl Hct (37-47) % POC Hct (37-47) % MCV (80-100) fL MCH (25-34) pg MCHC (32-36) g/dL RDW Std Deviation (36.4-46.3) fL RDW Coeff of Lebron (11.5-14.5) % Plt Count (130-400) K/uL MPV (7.4-10.4) fL Immature Gran % (Auto) % Neut % (Auto) % Lymph % (Auto) % [place] % (Auto) % Eos % (Auto) % Baso % (Auto) % Neut # (Auto) (1.4-6.5) K/uL Lymph # (Auto) (1.2-3.4) K/uL [place]ell # (Auto) (0.11-0.59) K/uL Eos # (Auto) (0-0.5) K/uL Baso # (Auto) (0-0.2) K/uL Immature Gran # (Auto) (0.00-0.02) K/uL POC Sodium (135-144) mmol/L Sodium 138 (136-145) mmol/L POC Potassium (3.3-5.0) mmol/L Potassium 4.4 D (3.5-5.1) mmol/L POC Chloride (101-112) mmol/L Chloride 104 (98-107) mmol/L Carbon Dioxide 19 L (21-32) mmol/L POC Total CO2 (24-31) mmol/L Anion Gap 15.0 H (3-11) POC Anion Gap (16-25) mmol/L POC BUN (7-18) mg/dl BUN 63 H (7-18) mg/dl Creatinine 4.85 H* (0.6-1.2) mg/dl POC Creatinine (0.6-1.3) mg/dl Est Cr Clr Drug Dosing 11.4 ml/min Est GFR ( Amer) 11.1 ml/min Est GFR (Non-Af Amer) 9.6 ml/min BUN/Creatinine Ratio 13.0 (10-20) Glucose 386 H* (70-99) mg/dl POC Glucose 445 H* (70-99) mg/dl POC Glucose (other) (70-99) mg/dl Calcium 9.4 (8.5-10.1) mg/dl POC Ioniz Calcium Brittany (1.12-1.32) mmol/l Total Bilirubin (0.2-1) mg/dl AST (15-37) U/L ALT (12-78) U/L Alkaline Phosphatase (45-117) U/L Total Protein (6.4-8.2) gm/dl Albumin (3.4-5.0) gm/dl Globulin (2.5-4.0) gm/dl Albumin/Globulin Ratio (0.9-2) Lipase (73-393) U/L Beta-Hydroxybutyric Acd (0.2-2.81) mg/dl Specimen Hemolysis Imaging Data My Impression: Chest x-ray negative. Airway clear. No pneumothorax. No consolidation. No cardiomegaly or cephalization.. No free air under the diaphragm. No fractures of the skeletal structures. No air-fluid levels no free air under the diaphragm. ECG Data Indication: + abdominal pain Rate (beats per minute): 82 Rhythm: + normal sinus ECG Intervals/blocks: + Normal QRS, + Normal MT and + Normal QT-c ECG ST segments: + Normal ST segments MDM Narrative 1939: The patient was evaluated in room B10. A complete history and physical exam was performed Cardiac monitoring: An order was placed for continuous cardiac monitoring. The monitor shows a rate of 90 with sinus rhythm 2100: Vital signs stable.Labs show potassium of 5.3. Creatinine at baseline with 4.7. Glucose 396. Anion gap 13. Acute abdominal series shows no free air under the abdomen and no air-fluid levels. Patient will be given calcium gluconate 1 g and 5 units of insulin and then we will recheck to make sure the anion gap is closed we will plan on discharging patient home. Patient is due for dialysis tomorrow and thus no IV fluids to be given to the patient at this time. 2200: Patient's blood sugar has actually worsened to 501. Patient denies eating anything while in the emergency department. We will give the patient 10 units of insulin IV push and then recheck a metabolic profile. 2350: Vital signs stable. Status post second bolus of insulin, the patient's glucose is 386 with an anion gap of 15. Given the patient's resistant hyperglycemia and persistent anion gap, the patient will be started on insulin drip and admitted to the hospital for DKA. Discussed the case with [facility] hospitalist Dr. Altamirano who will evaluate the patient for admission. Impression & Plan DKA (diabetic ketoacidosis) Discharge Plan Visit Data Chief Complaint: Abdominal Pain Stated Complaint: VOMITING, ABD PAIN Discharge Problem: DKA (diabetic ketoacidosis) Patient Disposition: Admitted As Inpatient Forms Stand Alone Forms: [facility] Prescriptions Prescriptions: No Action aripiprazole [Abilify] 5 mg tablet 5 mg PO HS RF: 0 atorvastatin [Lipitor] 40 mg tablet 40 mg PO HS RF: 0 trazodone 150 mg tablet 75 mg PO HS PRN (Reason: Sleep) RF: 0 temazepam [Restoril] 15 mg capsule 15 mg PO HS RF: 0 hydroxyzine HCl 25 mg tablet 25 mg PO TID PRN (Reason: Anxiety) RF: 0 trimethobenzamide 300 mg Capsule 300 mg PO TID PRN (Reason: NAUSEA/VOMITING) RF: 0 levetiracetam [Keppra] 500 mg tablet 750 mg PO BID RF: 0 melatonin 3 mg Tablet 3 mg PO HS RF: 0 lamotrigine [Lamictal] 25 mg tablet 50 mg PO HS RF: 0 ergocalciferol (vitamin D2) [Vitamin D2] 1,250 mcg (50,000 unit) Capsule 50,000 unit PO WK RF: 0 sertraline [Zoloft] 50 mg tablet 75 mg PO HS RF: 0 insulin lispro [Admelog SoloStar U-100 Insulin] 100 unit/mL Insulin Pen 0 unit SUBCUT TIDM RF: 0 sevelamer carbonate 800 mg Tablet 800 mg PO TIDM RF: 0 benztropine 0.5 mg tablet 0.5 mg PO HS RF: 0 lactulose 10 gram/15 mL Solution 10 g PO BID PRN (Reason: Constipation) Qty: 200 RF: 0 lubiprostone 24 mcg Capsule 24 mcg PO BIDM RF: 0 polyethylene glycol 3350 [Miralax] 17 gram Powder In Packet 17 g PO BID Qty: 60 RF: 0 amlodipine [Norvasc] 5 mg Tablet 2.5 mg PO HS Qty: 30 RF: 0 Lantus Solostar U-100 Insulin 100 unit/mL (3 mL) insulin pen 12 unit SC DAILY RF: 0 buspirone 10 mg tablet 10 mg PO TID RF: 0 metoclopramide HCl 5 mg tablet 5 mg PO TID PRN (Reason: Nausea) RF: 0 pantoprazole 40 mg Tablet,Delayed Release (Dr/Ec) 40 mg PO QAM Qty: 30 RF: 0 sucralfate 100 mg/mL Suspension 10 ml PO BID 30 Days Qty: 600 RF: 1 Advanced Probiotic 625 mg (10 billion cell) capsule 2 cap PO QAM RF: 0 oxycodone 5 mg tablet 5 mg PO Q6 PRN (Reason: pain) Qty: 5 RF: 0 ondansetron HCl [Zofran] 4 mg tablet 4 mg PO Q6H PRN (Reason: nausea and vomiting) Qty: 10 RF: 0 Referrals Referrals: Edwin Reilly MD [Primary Care Provider] -
[2021-01-23] MEDS ORDERED: INSULIN REGULAR 250 UNITS in SODIUM CHLORIDE 0.9% 247.5 ML IV SCH (23:45)
[2021-01-24] MEDS ORDERED: amLODIPine BESYLATE 5 MG TAB PO ONE ×2 (00:05→03:56)
[2021-01-24] MEDS ORDERED: SODIUM CHLORIDE 0.9% 500 ML IV ONE ×2 (00:10→05:33)
[2021-01-24 00:20] LABS: Magnesium 1.8 mg/dl (1.8-2.4)
[2021-01-24] MEDS ORDERED: INSULIN GLARGINE SOLOSTAR 100 UNITS/ML 3 ML PEN SC STA (00:47)
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
[2021-01-24] MEDS ORDERED: GLUCOSE 10 TABS/TUBE PO PRN (01:17)
[2021-01-24] MEDS ORDERED: DEXTROSE 50% 50 ML SYRINGE IV PRN (01:17)
[2021-01-24] MEDS ORDERED: GLUCOSE 40% GEL 15 GM TUBE PO PRN (01:17)
[2021-01-24] MEDS ORDERED: GLUCAGON FOR INJ 1 MG VIAL SQ PRN (01:17)
[2021-01-24] MEDS ORDERED: PROMETHAZINE HCL 12.5 MG in SODIUM CHLORIDE 0.9% 50 ML IV PRN (01:33)
[2021-01-24] MEDS: INSULIN ASPART 100 UNITS/ML 3 ML PEN SC SCH ×5 (01:34→21:02)
[2021-01-24 01:40] LABS: Troponin I < 0.015 ng/ml (0-0.045)
[2021-01-24] MEDS ORDERED: hydrOXYzine HCl 25 MG TAB PO PRN (03:04)
[2021-01-24] MEDS ORDERED: LACTULOSE SYRUP 10 GM/15 ML BTL 960 ML PO PRN (03:14)
[2021-01-24] MEDS ORDERED: SEVELAMER HCL 800 MG TABLET PO PRN (03:21)
[2021-01-24] MEDS: busPIRone 5 MG TAB PO SCH ×4 (03:52→20:34)
[2021-01-24] MEDS: levETIRAcetam 250 MG TAB PO SCH ×3 (03:53→20:34)
[2021-01-24] MEDS: oxyCODONE HCL IR 5 MG TAB (IMMEDIATE RELEASE) PO PRN ×3 (03:53→19:53)
[2021-01-24] MEDS: METOCLOPRAMIDE HCL 5 MG TABLET PO PRN ×3 (03:53→19:53)
[2021-01-24] MEDS: HEPARIN SOD 5,000 UNIT/0.5 ML VIAL SQ SCH ×3 (03:54→20:33)
[2021-01-24 04:27] LABS: Basophils # (auto) 0.03 K/uL (0-0.2); Basophils % (auto) 0.4 %; Eosinophils # (auto) 0.23 K/uL (0-0.5); Eosinophils % (auto) 3.3 %; Hematocrit (blood only) 29.4 % (37-47); Hemoglobin 9.7 g/dL (12.0-16.0); Immature Granulocytes # (auto) 0.01 K/uL (0.00-0.02); Immature Granulocytes % (auto) 0.1 %; Lymphocytes # (auto) 1.79 K/uL (1.2-3.4); Lymphocytes % (auto) 25.4 %; Mean Corpuscular Hemoglobin 28.6 pg (25-34); Mean Corpuscular Volume 86.7 fL (80-100); Mean Platelet Volume 9.8 fL (7.4-10.4); Monocytes # (auto) 0.56 K/uL (0.11-0.59); Neutrophils # (auto) 4.42 K/uL (1.4-6.5); Neutrophils % (auto) 62.8 %; Platelet Count 300 K/uL (130-400); RDW Coefficient of Variation 16.8 % (11.5-14.5); RDW Standard Deviation 53.4 fL (36.4-46.3); Red Blood Count 3.39 M/uL (4.2-5.4); White Blood Count 7.04 K/uL (4.8-10.8)
[2021-01-24 04:49] LABS: Base Excess VBG -4.2 mEq/L; Oxygen Saturation VBG 90.9 %; pH VBG 7.37 (7.36-7.41)
[2021-01-24 04:57] LABS: BUN Creatinine Ratio 13.7 (10-20); Calcium 9.1 mg/dl (8.5-10.1); Creatinine Clr Calc Pharmacy 11.1 ml/min; Est GFR (African American) 12.2 ml/min; Est GFR (Non-African American) 10.5 ml/min; Potassium 4.6 mmol/L (3.5-5.1)
[2021-01-24] MEDS ORDERED: hydrALAZINE HCL 20 MG/ML VIAL IV ONE (05:52)
[2021-01-24] MEDS ORDERED: INSULIN ASPART 100 UNITS/ML 3 ML PEN SC SCH (07:30)
[2021-01-24] MEDS: ACETAMINOPHEN 325 MG TAB PO PRN (07:34)
[2021-01-24] MEDS: PANTOprazole 40 MG TAB PO SCH (07:36)
[2021-01-24] MEDS: LUBIPROSTONE 8 MCG CAP PO SCH ×2 (07:36→16:57)
[2021-01-24] MEDS: SEVELAMER HCL 800 MG TABLET PO SCH ×3 (07:37→16:57)
--- NOTE | 2021-01-24 08:21 | XRay Report ---
CHEST AND ABDOMEN 2 VIEWS HISTORY: Vomiting. COMPARISON: Chest and abdominal series 10/24/2020. FINDINGS: No pneumothorax. No pleural effusions. The cardiac silhouette is borderline enlarged. This is similar to the prior study. No focal lung consolidations to suggest pneumonia. No evidence for pul monary edema. A right axillary vascular stent is again noted. No pneumoperitoneum. No pneumatosis. Pr ior cholecystectomy. Moderate to large amount of well-formed stool seen throughout the colon. No dila magnolia loops of bowel to suggest an obstruction. No renal or ureteral calculi. An intrauterine device re dayanna within the mid pelvis. IMPRESSION: No acute cardiopulmonary process. No evidence for bowel obstruction. Moderate to large amount of well -formed stool seen throughout the colon. ACT 112: Negative or not required by law. Electronically signed by: Jairon Shannon M.D. 01/24/2021 8:20 AM
[2021-01-24] MEDS ORDERED: PHARMACY GLYCEMIC MGMT CONSULT PRN (08:33)
[2021-01-24] MEDS: ADVANCED PROBIOTIC 1250 MG CAPSULE PO SCH (08:36)
[2021-01-24] MEDS: SUCRALFATE 1 GM/10 ML UDC PO SCH ×2 (08:37→20:33)
[2021-01-24] MEDS: POLYETHYLENE (MIRALAX) 17 GM PACK PO SCH ×2 (08:37→20:37)
[2021-01-24 08:45] LABS: Calcium 8.9 mg/dl (8.5-10.1); Creatinine Clr Calc Pharmacy 11.2 ml/min; Est GFR (African American) 12.3 ml/min; Est GFR (Non-African American) 10.6 ml/min
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
[2021-01-24] MEDS ORDERED: INSULIN GLARGINE SOLOSTAR 100 UNITS/ML 3 ML PEN SC ONE (09:00)
[2021-01-24] MEDS ORDERED: SODIUM CHLORIDE 0.9% 1000ML 1,000 ML IV PRN (09:25)
[2021-01-24] MEDS ORDERED: HEPARIN SOD (PORCINE) 1000 UNIT/ML IV ONE (09:25)
[2021-01-24 09:27] LABS: Beta-Hydroxybutyrate 62.24 mg/dl (0.2-2.81)
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
[2021-01-24 12:37] LABS: Calcium 9.1 mg/dl (8.5-10.1); Creatinine Clr Calc Pharmacy 10.3 ml/min; Est GFR (African American) 11.1 ml/min; Est GFR (Non-African American) 9.6 ml/min; Phosphorus 3.5 mg/dl (2.5-4.9); Potassium 4.5 mmol/L (3.5-5.1)
[2021-01-24] MEDS: HEPARIN SOD (PORCINE) 1000 UNIT/ML IV SCH (14:25)
--- NOTE | 2021-01-24 14:29 | Pharmacy Report ---
Pharmacy Glycemic Short Note 2 - Date of Service January 24, 2021 - Glycemic Short BSG Results (Last 24 hours): 01/23/21 01/23/21 01/23/21 20:13 21:55 22:05 Glucose 396 H* POC Glucose 445 H* POC Glucose (other) 501 H* 01/23/21 01/23/21 01/24/21 22:43 23:49 01:06 Glucose 386 H* POC Glucose 312 H* 160 H POC Glucose (other) 01/24/21 01/24/21 01/24/21 01:35 04:04 07:43 Glucose 244 H 430 H* POC Glucose 147 H POC Glucose (other) 01/24/21 01/24/21 01/24/21 08:09 08:10 11:17 Glucose POC Glucose 472 H* 496 H* 352 H* POC Glucose (other) 01/24/21 01/24/21 11:52 12:15 Glucose 298 H POC Glucose 302 H* POC Glucose (other) OUTPATIENT ANTIDIABETIC REGIMEN: * Lantus 12 units; Admelog TIDM ASSESSMENT: * Patient with mild DKA was briefly started on insulin infusion overnight, this was discontinued and 5 units of lantus were given * This morning BSGs back in 400s, gap 15, Bicarb 16, discussed with physician starting insulin infusion, will utilize basal/bolus this morning and transition to insulin infusion after dialysis if still needed. On repeat BMP gap 12 and bicarb up to 16. BSG has trended down with subq insulin to 302 mg/dL. PLAN FOR INPATIENT GLYCEMIC CONTROL: * Hold outpatient oral diabetes medications * Basal insulin * Lantus 5 units + 7 units for a total of 12 units this morning * Bolus insulin * NovoLog per scale ACHS or Q6hrs while NPO * Goal Range: Low 110 mg/dL - High 140 mg/dL * Correction Factor: 25 mg/dL/unit * Nutritional / Prandial insulin per carb ratio of 1 unit per 10 grams CHO consumed
--- NOTE | 2021-01-24 16:48 | Electrocardiogram Report ---
Test Reason : Blood Pressure : / mmHG Vent. Rate : 082 BPM Atrial Rate : 082 BPM P-R Int : 162 ms QRS Dur : 082 ms QT Int : 402 ms P-R-T Axes : 061 -04 035 degrees QTc Int : 469 ms Poor data quality, interpretation may be adversely affected Normal sinus rhythm Possible Left atrial enlargement Septal infarct (cited on or before 23-JAN-2021) Abnormal ECG When compared with ECG of 24-OCT-2020 22:51, Nonspecific T wave abnormality, improved in Anterior leads Confirmed by Denton Saba ([id number]) on 01/24/2021 4:48:11 PM Referred By: Edwin Reilly Confirmed By:Denton Saba
[2021-01-24] MEDS: DOCUSATE SODIUM 100 MG CAP PO PRN (16:57)
--- NOTE | 2021-01-24 17:37 | Dialysis Progress Note ---
Date of Service January 24, 2021 Assessment & Plan (1) CKD (chronic kidney disease) stage V requiring chronic dialysis: Plan: for dialysis today > 3 hr using AVF on 2 K bath w/ 1L. her chemistries and volume status are acceptable some anemia and will need more KIKE on next tx. last dialysis was on Saturday > no recent missed txs. She still has considerable residual renal function but needs to cont tx. next HD tentatively for 01/26 or as clinical needs dictate (2) DKA (diabetic ketoacidosis): Plan: per primary service (3) Abdominal pain: Plan: per primary srevice; recurrent/chronic issue for her (4) Domestic concerns: Plan: reported by her intermittently; denies issues today; has reported issues in past week at [facility] Admission and Anticipated Discharge Date Admission Date: January 24, 2021 Subjective tolerating dialysis well >> uf goal upped to 1 L from original 750 mL; no n/v Review of Systems Review of Systems: All systems reviewed & are unremarkable except as noted in Subjective Physical Exam Constitutional: well developed and well nourished Eyes: EOM intact bilaterally ENMT: Ears: no external ear abnormality Nose: no external nose abnormality Mouth: + dry oral mucous membranes Neck: no nuchal rigidity Respiratory: normal respiratory effort Auscultation: + diminished lung sounds Cardiovascular: Rate/Rhythm: regular rate and regular rhythm Heart Sounds: normal S1 and normal S2 Extremities: + AV fistula; no edema Gastrointestinal (Abdomen): Inspection/Auscultation: normal bowel sounds Percussion/Palpation: + abdomen tender and abdomen soft; no guarding and abdomen not rigid Musculoskeletal: Extremities: strength 5/5 throughout Skin: no rashes, warm and dry Psychiatric: Orientation: alert and oriented x 3 Speech: normal rate/rhythm/volume of speech Affect: + flat affect Results & Data ([facility]) Vital Signs (Past 12 Hours) Vital Signs Temp Pulse Pulse Pulse Resp BP BP 01/24/21 16:49 37.0 C 81 18 138/69 01/24/21 16:36 37.0 C 80 166/76 H 01/24/21 16:20 70 160/75 H 01/24/21 16:00 75 158/71 H 01/24/21 15:40 75 182/78 H 01/24/21 15:20 75 180/72 H 01/24/21 15:00 73 155/67 H 01/24/21 14:40 79 170/79 H 01/24/21 14:20 80 167/72 H 01/24/21 14:00 80 171/71 H 01/24/21 13:40 80 165/70 H 01/24/21 13:20 37.2 C 83 01/24/21 07:08 37.0 C 76 14 165/74 H 01/24/21 05:52 36.7 C 84 16 173/70 H Pulse Ox 01/24/21 16:49 100 01/24/21 16:36 01/24/21 16:20 01/24/21 16:00 01/24/21 15:40 01/24/21 15:20 01/24/21 15:00 01/24/21 14:40 01/24/21 14:20 01/24/21 14:00 01/24/21 13:40 01/24/21 13:20 01/24/21 07:08 98 01/24/21 05:52 97 Laboratory Results reveiwed (1) DKA (diabetic ketoacidosis) Diabetes mellitus complication detail: without coma Diabetes mellitus type: other specified (including BENJI) Qualified Code(s): E13.10 - Other specified diabetes mellitus with ketoacidosis without coma
[2021-01-24 18:20] LABS: Calcium 8.9 mg/dl (8.5-10.1); Creatinine Clr Calc Pharmacy 25.8 ml/min; Est GFR (African American) 34.7 ml/min; Magnesium 1.8 mg/dl (1.8-2.4); Phosphorus 2.6 mg/dl (2.5-4.9); Potassium 3.3 mmol/L (3.5-5.1)
[2021-01-24] MEDS: TEMAZEPAM 15 MG CAPSULE PO SCH (20:32)
[2021-01-24] MEDS: ATORVASTATIN 40 MG TAB PO SCH (20:33)
[2021-01-24] MEDS: ARIPiprazole 5 MG TAB PO SCH (20:33)
[2021-01-24] MEDS: MELATONIN 3 MG TAB PO SCH (20:34)
[2021-01-24] MEDS: SERTRALINE HCL 50 MG TABLET PO SCH (20:34)
[2021-01-24] MEDS: BENZTROPINE MESYLATE 0.5 MG TAB PO SCH (20:34)
[2021-01-24] MEDS: lamoTRIgine 25 MG TAB PO SCH (20:34)
[2021-01-24] MEDS ORDERED: INSULIN GLARGINE SOLOSTAR 100 UNITS/ML 3 ML PEN SC SCH (21:00)
[2021-01-24] MEDS ORDERED: amLODIPine BESYLATE 5 MG TAB PO SCH (21:00)
[2021-01-24 23:01] LABS: Calcium 8.4 mg/dl (8.5-10.1); Creatinine Clr Calc Pharmacy 21.3 ml/min; Est GFR (African American) 27.5 ml/min; Est GFR (Non-African American) 23.8 ml/min; Magnesium 1.8 mg/dl (1.8-2.4); Phosphorus 3.3 mg/dl (2.5-4.9); Potassium 3.8 mmol/L (3.5-5.1)
[2021-01-25] MEDS: INSULIN ASPART 100 UNITS/ML 3 ML PEN SC SCH ×7 (00:05→21:59)
[2021-01-25] MEDS: POLYETHYLENE (MIRALAX) 17 GM PACK PO SCH ×3 (00:13→21:16)
[2021-01-25 00:55] LABS: BUN Creatinine Ratio 7.9 (10-20); Calcium 8.5 mg/dl (8.5-10.1); Creatinine Clr Calc Pharmacy 19.8 ml/min; Est GFR (African American) 25.3 ml/min; Est GFR (Non-African American) 21.8 ml/min; Magnesium 1.7 mg/dl (1.8-2.4); Potassium 3.9 mmol/L (3.5-5.1)
[2021-01-25 00:56] LABS: Phosphorus 3.6 mg/dl (2.5-4.9)
[2021-01-25 04:28] LABS: BUN Creatinine Ratio 7.6 (10-20); Calcium 8.3 mg/dl (8.5-10.1); Creatinine Clr Calc Pharmacy 18.4 ml/min; Est GFR (African American) 23.1 ml/min; Est GFR (Non-African American) 19.9 ml/min; Magnesium 1.9 mg/dl (1.8-2.4); Phosphorus 4.1 mg/dl (2.5-4.9); Potassium 4.3 mmol/L (3.5-5.1)
[2021-01-25] MEDS: oxyCODONE HCL IR 5 MG TAB (IMMEDIATE RELEASE) PO PRN ×3 (04:31→21:19)
[2021-01-25] MEDS: HEPARIN SOD 5,000 UNIT/0.5 ML VIAL SQ SCH ×3 (05:24→21:17)
[2021-01-25 06:36] LABS: Hemoglobin 10.5 g/dL (12.0-16.0); Mean Corpuscular Hemoglobin 28.8 pg (25-34); Mean Corpuscular Hgb Conc 32.8 g/dL (32-36); Mean Corpuscular Volume 87.9 fL (80-100); Mean Platelet Volume 9.9 fL (7.4-10.4); Platelet Count 290 K/uL (130-400); RDW Coefficient of Variation 16.8 % (11.5-14.5); RDW Standard Deviation 54.9 fL (36.4-46.3); Red Blood Count 3.64 M/uL (4.2-5.4); White Blood Count 5.14 K/uL (4.8-10.8)
[2021-01-25 07:41] LABS: BUN Creatinine Ratio 7.6 (10-20); Calcium 8.9 mg/dl (8.5-10.1); Creatinine Clr Calc Pharmacy 17.9 ml/min; Est GFR (Non-African American) 18.1 ml/min; Magnesium 2.1 mg/dl (1.8-2.4); Phosphorus 4.2 mg/dl (2.5-4.9); Potassium 4.1 mmol/L (3.5-5.1)
[2021-01-25 07:52] LABS: Beta-Hydroxybutyrate 13.51 mg/dl (0.2-2.81)
[2021-01-25] MEDS: busPIRone 5 MG TAB PO SCH ×3 (08:08→21:15)
[2021-01-25] MEDS: PANTOprazole 40 MG TAB PO SCH (08:08)
[2021-01-25] MEDS: SEVELAMER HCL 800 MG TABLET PO SCH ×3 (08:09→18:10)
[2021-01-25] MEDS: LUBIPROSTONE 8 MCG CAP PO SCH ×2 (08:09→18:09)
[2021-01-25] MEDS: levETIRAcetam 250 MG TAB PO SCH ×2 (08:10→21:15)
[2021-01-25] MEDS: SUCRALFATE 1 GM/10 ML UDC PO SCH ×2 (08:10→21:16)
[2021-01-25] MEDS: ADVANCED PROBIOTIC 1250 MG CAPSULE PO SCH (08:10)
[2021-01-25] MEDS: INSULIN GLARGINE SOLOSTAR 100 UNITS/ML 3 ML PEN SC SCH (09:17)
[2021-01-25] MEDS ORDERED: hydrALAZINE HCL 20 MG/ML VIAL IV PRN (12:42)
[2021-01-25] MEDS ORDERED: INSULIN GLARGINE SOLOSTAR 100 UNITS/ML 3 ML PEN SC ONE (13:00)
[2021-01-25] MEDS ORDERED: INSULIN HUMAN REGULAR PER UNIT 5 UNITS in SYRINGE 4.95 ML IV ONE (13:00)
[2021-01-25] MEDS ORDERED: CONSULT PHARMACY STA (17:34)
[2021-01-25] MEDS ORDERED: INSULIN PROTOCOL GOAL RANGE ONE (17:40)
[2021-01-25] MEDS ORDERED: STAT IV Infusion **Titration per Protocol STA (17:40)
[2021-01-25] MEDS ORDERED: INSULIN HUMAN REGULAR IV BOLUS 5 UNITS in SYRINGE 0 ML IV ONE (18:00)
[2021-01-25] MEDS ORDERED: CEFEPIME 1,000 MG in SYRINGE 0 ML IV ONE (18:00)
[2021-01-25 18:21] LABS: BUN Creatinine Ratio 8.1 (10-20); Calcium 8.8 mg/dl (8.5-10.1); Creatinine Clr Calc Pharmacy 15.3 ml/min; Est GFR (African American) 17.3 ml/min; Potassium 4.9 mmol/L (3.5-5.1)
--- NOTE | 2021-01-25 18:34 | Hospitalist Progress Note ---
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 No evidence for bowel obstruction. Mo derate to large amount of well-formed stool seen throughout the colon. -- (+) 2 liquid BMs -- will consult GI Continue home medication Questionable domestic abuse/drug-seeking behavior Recurrent admissions Currently patient denies any spousal abuse Case management consulted Hypertension Elevated BP increase Amlodipine to 5mg po daily PRN Hydralazine Chronic diastolic heart failure EF 74%, DSE 2019 Volume status managed through dialysis Dyslipidemia Continue Lipitor Seizure disorder on Keppra ESRD Hemodialysis as per nephrology Appreciate nephrology help Chronic Anemia Hb at baseline Monitor CBC H/O Severe gastroparesis Chronic Nausea, vomiting, abdominal pain Consider GI evaluation if needed On Reglan Mood Disorder Continue home meds DVT Px: Heparin SQ Code Status Full code Admission and Anticipated Discharge Date Admission Date: January 24, 2021 Subjective ff up for DKA, etc seen resting in bed, not in distress, comfortable reports intermittent nausea and abdominal discomfort (+) BM- liquid report increased pain, redness on the right foot wound no other symptoms Review of Systems Review of Systems: all noted and negative except for above Physical Exam Physical Exam: General- oriented x 3, not in distress, speaks in sentences with no effort or accessory muscle use Head- atraumatic Eyes- PERRL, EOMI, anicteric ENT- oropharynx clear Neck- supple, no JVD, no adenopathy, no thyromegaly; carotids +2/2, no bruits appreciated Lungs- clear to auscultation bilaterally, no rales/wheezes Heart- normal rate, regular rhythm; no murmur, no gallop, no rub appreciated Abdomen- normal bowel sounds, nondistended, soft, (+) mild tenderness on all quadrants, no masses or hepatosplenomegaly Extremities- no pretibial edema, no calf tenderness; peripheral pulses intact right foot: dorsal aspect (+) wound- scabbing, 3-4cm in diameter, with surrounding mild erythema, edema, (+) moderate tenderness Neuro- alert, oriented x 3; CN 2-12 grossly intact; motor 5/5 bilaterally;sensation 100% on all extremities; no other gross focal neurologic deficits Skin- warm & dry Results & Data Results & [facility] ([facility]) Vital Signs (Past 12 Hours) Vital Signs Temp Pulse Resp BP Pulse Ox 01/25/21 15:10 36.9 C 78 16 174/65 H 99 01/25/21 07:17 37.1 C 73 14 178/68 H 98 all noted and reviewed including below (1) DKA (diabetic ketoacidosis) Diabetes mellitus complication detail: without coma Diabetes mellitus type: other specified (including BENJI) Qualified Code(s): E13.10 - Other specified diabetes mellitus with ketoacidosis without coma
--- NOTE | 2021-01-25 18:39 | XRay Report ---
XR foot RT min 3V routine CLINICAL HISTORY: Right foot wound, r/o osteomyelitis COMPARISON STUDY: Right foot 02/04/2019. FINDINGS: There is an acute to subacute fracture within the distal right fibula which demonstrates up to 3 mm of lateral displacement. No dislocation within the ankle. No acute fracture or dislocation w ithin the right foot. There are old, healed fractures within the third metatarsal and base of the sec ond toe. There is mild soft tissue swelling within the forefoot. No areas of cortical destruction to suggest an osteomyelitis. IMPRESSION: 1. An acute to subacute distal right fibular fracture. 2. Old, healed fractures within the right foot. 3. Soft tissue swelling within the forefoot. No evidence for osteomyelitis. ACT 112: Negative or not required by law. Electronically signed by: Jairon Shannon M.D. 01/25/2021 6:37 PM
[2021-01-25] MEDS: INSULIN REGULAR 250 UNITS in SODIUM CHLORIDE 0.9% 247.5 ML IV SCH (18:47)
[2021-01-25] MEDS: SERTRALINE HCL 50 MG TABLET PO SCH (21:14)
[2021-01-25] MEDS: amLODIPine BESYLATE 5 MG TAB PO SCH (21:14)
[2021-01-25] MEDS: BENZTROPINE MESYLATE 0.5 MG TAB PO SCH (21:14)
[2021-01-25] MEDS: lamoTRIgine 25 MG TAB PO SCH (21:15)
[2021-01-25] MEDS: MELATONIN 3 MG TAB PO SCH (21:15)
[2021-01-25] MEDS: ATORVASTATIN 40 MG TAB PO SCH (21:15)
[2021-01-25] MEDS: ARIPiprazole 5 MG TAB PO SCH (21:16)
[2021-01-25] MEDS: TEMAZEPAM 15 MG CAPSULE PO SCH (21:19)
[2021-01-25] MEDS: traZODone HCL 50 MG TAB PO PRN (21:27)
[2021-01-26] MEDS ORDERED: INSULIN ASPART 100 UNITS/ML 3 ML PEN SC SCH
[2021-01-26] MEDS: CARBOHYDRATES FOR HYPOGLYCEMIA PO PRN ×2 (05:38→06:01)
[2021-01-26] MEDS: HEPARIN SOD 5,000 UNIT/0.5 ML VIAL SQ SCH ×3 (05:39→21:13)
[2021-01-26] MEDS: oxyCODONE HCL IR 5 MG TAB (IMMEDIATE RELEASE) PO PRN ×3 (06:36→21:25)
[2021-01-26] MEDS: INSULIN GLARGINE SOLOSTAR 100 UNITS/ML 3 ML PEN SC SCH (07:17)
[2021-01-26] MEDS: POLYETHYLENE (MIRALAX) 17 GM PACK PO SCH ×2 (07:21→21:12)
[2021-01-26] MEDS: levETIRAcetam 250 MG TAB PO SCH ×2 (07:23→21:12)
[2021-01-26] MEDS: busPIRone 5 MG TAB PO SCH ×3 (07:23→21:12)
[2021-01-26] MEDS: PANTOprazole 40 MG TAB PO SCH (07:23)
[2021-01-26] MEDS: ADVANCED PROBIOTIC 1250 MG CAPSULE PO SCH (07:23)
[2021-01-26] MEDS: SUCRALFATE 1 GM/10 ML UDC PO SCH ×2 (07:24→21:12)
[2021-01-26] MEDS: SEVELAMER HCL 800 MG TABLET PO SCH ×3 (07:24→17:42)
[2021-01-26] MEDS: LUBIPROSTONE 8 MCG CAP PO SCH ×2 (07:24→17:42)
[2021-01-26] MEDS: CEFEPIME 500 MG in SYRINGE 0 ML IV SCH (07:29)
[2021-01-26] MEDS: INSULIN REGULAR 250 UNITS in SODIUM CHLORIDE 0.9% 247.5 ML IV SCH (08:23)
[2021-01-26] MEDS: INSULIN ASPART 100 UNITS/ML 3 ML PEN SC SCH ×4 (08:53→20:49)
[2021-01-26 09:03] LABS: Basophils # (auto) 0.03 K/uL (0-0.2); Basophils % (auto) 0.6 %; Eosinophils # (auto) 0.38 K/uL (0-0.5); Eosinophils % (auto) 7.5 %; Hematocrit (blood only) 30.6 % (37-47); Hemoglobin 10.1 g/dL (12.0-16.0); Immature Granulocytes # (auto) 0.01 K/uL (0.00-0.02); Immature Granulocytes % (auto) 0.2 %; Lymphocytes # (auto) 2.11 K/uL (1.2-3.4); Lymphocytes % (auto) 41.8 %; Mean Corpuscular Volume 87.9 fL (80-100); Mean Platelet Volume 9.8 fL (7.4-10.4); Monocytes # (auto) 0.33 K/uL (0.11-0.59); Monocytes % (auto) 6.5 %; Neutrophils # (auto) 2.19 K/uL (1.4-6.5); Neutrophils % (auto) 43.4 %; Platelet Count 251 K/uL (130-400); RDW Coefficient of Variation 16.6 % (11.5-14.5); RDW Standard Deviation 53.1 fL (36.4-46.3); Red Blood Count 3.48 M/uL (4.2-5.4); White Blood Count 5.05 K/uL (4.8-10.8)
[2021-01-26] MEDS ORDERED: SODIUM CHLORIDE 0.9% 1000ML 1,000 ML IV PRN (09:04)
[2021-01-26] MEDS ORDERED: HEPARIN SOD (PORCINE) 1000 UNIT/ML IV ONE (09:04)
[2021-01-26 09:22] LABS: BUN Creatinine Ratio 8.2 (10-20); Calcium 9.3 mg/dl (8.5-10.1); Creatinine Clr Calc Pharmacy 13.1 ml/min; Est GFR (Non-African American) 12.1 ml/min; Potassium 3.6 mmol/L (3.5-5.1)
[2021-01-26] MEDS ORDERED: EPOETIN ALFA 4,000 UNIT/ML VIAL IV ONE (09:30)
--- NOTE | 2021-01-26 10:59 | Orthopedic Consultation ---
Date of Consultation January 26, 2021 Assessment & Plan (1) Wound of right foot: She has a 2 cm superficial wound on the dorsum of her right foot without evidence of surrounding infection. I would recommend wound care. This does not require surgical intervention at this point. I advised her that she needs to get her glucose under much better control. She does not require follow-up with [facility] unless her wound significantly worsens. She also has a minimally displaced stable ankle fracture. This is already being treated by a physician in [place]. Follow-up with that provider for her already established care. Orthopedics will sign off at this point. Call with questions. History of Present Illness Reason for Consultation: Right foot wound Attending Physician: Pancho Coleman MD History of Present Illness Ms. Luu is a 50-year old poorly controlled diabetic female with a wound on the dorsum of her right foot. She is a fairly poor historian, but insists that this wound has only been there for 2 weeks. She says that it has drained in the past. When directly questioned about the results of her ankle x- ray, she says that she did fall about 2 weeks ago while getting into the car and broke her ankle. She is already being treated by a physician in [place] for this injury, and already has a walking boot which she has with her today. She does not know the name of the physician who is treating her in [place]. She says she has not really been walking on this right foot/ankle due to pain. Allergies Allergy/AdvReac Type Severity Reaction Status Date / Time Fish Containing Products Allergy Mild Hives Verified 01/23/21 22:42 latex Allergy Mild hives Verified 01/23/21 22:42 shellfish derived Allergy Mild Hives Verified 01/23/21 22:42 Home Medications Medication Instructions Recorded Confirmed Type aripiprazole 5 mg tablet (Abilify) 5 mg PO HS 05/20/19 01/23/21 History levetiracetam 500 mg tablet 750 mg PO BID 06/20/19 01/23/21 History (Keppra) atorvastatin 40 mg tablet (Lipitor) 40 mg PO HS 08/01/19 01/23/21 History melatonin 3 mg tablet 3 mg PO HS 01/29/20 01/23/21 History hydroxyzine HCl 25 mg tablet 25 mg PO TID PRN 02/20/20 01/23/21 History temazepam 15 mg capsule (Restoril) 15 mg PO HS 02/20/20 01/23/21 History trazodone 150 mg tablet 75 mg PO HS PRN 02/20/20 01/23/21 History trimethobenzamide 300 mg capsule 300 mg PO TID PRN 03/21/20 01/23/21 History benztropine 0.5 mg tablet 0.5 mg PO HS 07/27/20 01/23/21 History ergocalciferol (vitamin D2) 1,250 50,000 unit PO WK 07/27/20 01/23/21 History mcg (50,000 unit) capsule (Vitamin D2) insulin lispro 100 unit/mL 0 unit SUBCUT TIDM 07/27/20 01/23/21 History subcutaneous pen (Admelog SoloStar U-) lamotrigine 25 mg tablet (Lamictal) 50 mg PO HS 07/27/20 01/23/21 History sertraline 50 mg tablet (Zoloft) 75 mg PO HS 07/27/20 01/23/21 History sevelamer carbonate 800 mg tablet 800 mg PO TIDM 07/27/20 01/23/21 History lactulose 10 gram/15 mL oral 10 g PO BID PRN #200 ml 07/31/20 01/23/21 Rx solution buspirone 10 mg tablet 10 mg PO TID 08/16/20 01/23/21 History metoclopramide HCl 5 mg tablet 5 mg PO TID PRN 08/16/20 01/23/21 History pantoprazole 40 mg tablet,delayed 40 mg PO QAM #30 tab 08/21/20 01/23/21 Rx release sucralfate 100 mg/mL oral 10 ml PO BID 30 Days #600 ml 08/21/20 01/23/21 Rx suspension lubiprostone 24 mcg capsule 24 mcg PO BIDM 09/09/20 01/23/21 History L.acidop,casei,lactis,rham-B.lact,tim 2 cap PO QAM 09/25/20 01/23/21 History 625 mg (10 billion cell) capsule (Advanced Probiotic) amlodipine 5 mg tablet (Norvasc) 2.5 mg PO HS #30 tab 10/05/20 01/23/21 Rx polyethylene glycol 3350 17 gram 17 g PO BID #60 ea 10/05/20 01/23/21 Rx oral powder packet (Miralax) insulin glargine 100 unit/mL (3 12 unit SC DAILY 10/17/20 01/23/21 History mL) subcutaneous pen (Lantus Solostar U-100 Insulin) ondansetron HCl 4 mg tablet 4 mg PO Q6H PRN #10 tab 10/25/20 01/23/21 Rx (Zofran) oxycodone 5 mg tablet 5 mg PO Q6 PRN #5 tab 10/25/20 01/23/21 Rx Patient History Medical History Anemia due to chronic kidney disease Arteriovenous fistula for hemodialysis in place, primary Bipolar disorder CKD (chronic kidney disease) stage V requiring chronic dialysis Coronary artery disease "2015 - cardiac catheterization showing nonobstructive coronary disease Stress test 06/2017 - possible small area of ischemia in the anterior wall" CVA (cerebral vascular accident) 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 history of CVA in 2018 Residual R sided weakness Depression Diabetic gastroparesis Diastolic heart failure DM type 1 (diabetes mellitus, type 1) ESRD (end stage renal disease) on dialysis GERD (gastroesophageal reflux disease) History of GI bleed Hyperlipidemia Hypertension Seizure Surgical History Hx of appendectomy Hx of cholecystectomy Hx of tubal ligation Family History Mother Coronary heart disease Hypertension Father Coronary heart disease Social History Smoking Status: Former smoker Tobacco Type: Cigarettes Second Hand Exposure: No; Do You Dip or Chew Tobacco: No; Tobacco Cessation Education Requested by Patient: No Hx Alcohol Use: No Hx Substance Use: No Preferred Language: Citizen Of [place] Communication Ability: Effective Retail Pharmacy Manager Required: No Beliefs That Will Affect Care: None marital status: Current Living Situation: Significant Other current occupational status: unemployed Other Information That Helps Us Care for You: No Feels Safe at Home: Yes Safety Concerns: Feels Safe At This Time Assistive Devices: Special Shoe Assistive Devices Comment: Right walking boot Physical Exam Physical Exam: Examination of the right foot reveals a fairly superficial wound on the dorsum of the foot. It is approximately 2 cm in diameter. It has a scab over the wound. It looks like it is already healing in from the edges. No surrounding erythema, swelling, induration, fluctuance, or active or express ible drainage. It looks very benign. No other wounds are noted on the foot. Foot is warm well perfused. Results & Data ([facility]) Vital Signs (Past 12 Hours) Vital Signs Temp Pulse Resp BP Pulse Ox 01/26/21 07:29 36.2 C L 71 16 116/61 96 01/25/21 23:16 36.8 C 71 16 148/66 H 99 Laboratory Results WBC - 5.05 Glucose on admission was 396, and has fluctuated since admission, up to 735 yesterday. Hemoglobin A1c was not drawn during this admission, but was 8.1 in July 2020, and 10.7 in July 2019 Diagnostic Findings Right foot x-rays were reviewed. They show an old healed third metatarsal fracture. No evidence of osteomyelitis. Incompletely imaged on the foot x-rays is a distal fibula fracture. Due to the distal fibula fracture seen on foot x-rays, formal ankle x-rays were obtained. They show a mildly displaced distal fibula fracture. No medial clear space widening. No lateral talar shift.
--- NOTE | 2021-01-26 12:00 | XRay Report ---
XR ankle RT min 3V routine CLINICAL HISTORY: r/o fx COMPARISON: None. DISCUSSION: Comminuted and slightly displaced fracture of the distal right fibula. Few ossified fragments are seen at the medial malleolus and might also represent fracture. There is m ild subluxation of the talus . IMPRESSION: Slightly displaced fracture of the distal fibula and subluxation of the talus. Possible fracture of t he medial malleolus. Further evaluation with radiograph of the tibia and fibula as well as the right knee joint is recommended. ACT 112: Negative or not required by law. The above report was generated using voice recognition software. It may contain grammatical, syntax o r spelling errors. Electronically signed by: Diya Ortega DO 01/26/2021 11:58 AM
--- NOTE | 2021-01-26 14:02 | Gastrointestinal Consultation ---
Date of Consultation January 26, 2021 Assessment & Plan (1) Nausea & vomiting: In the setting of hyperglycemia and hx of gastroparesis. Recommend eventual OP EGD and due for colonoscopy for surveillance of hx of colon polyps. Vomiting resolved with resolution of hyperglycemia and no GI bleeding. She c/o LLQ pain but she has chronic abd pain. No indication for urgent EGD or colonoscopy. Diabetic and gastroparesis diet. Recommend OP EGD, colonoscopy and repeat NM GES. Pt has an OP office f/u with Elisabet Valle PA-C in [place] [facility] in February - these studies can be arranged at that time. GI will sign off. Supervising Physician Co-Signing Physician Notes I saw and evaluated the patient with Ms. Hickey. We were consulted for evaluation of nausea and vomiting. Of note the patient has been told that she may have gastroparesis, of interest her gastric emptying studies have all been within normal limits. It appears that the patient's nausea and vomiting were most likely related to her diabetic ketoacidosis. Physical examination Frail appearing female in no obvious distress somewhat withdrawn No abdominal tenderness Impression: Patient admitted with ketoacidosis likely resulting in nausea. Given the question of gastroparesis would suggest a repeat gastric emptying study, the last one in 2018 was normal appearing. Would also suggest an upper endoscopy and colonoscopy to be scheduled as an outpatient as the patient is due for colon polyp follow-up. Please call with any questions or concerns during remainder the hospital admission History of Present Illness Reason for Consultation: nausea, abd pain, gastroparesis Requesting Physician: Dr. Thurston Attending Physician: Pancho Coleman MD History of Present Illness Ms. Laura Luu is a 50 yr old female pt of Dr. Santo with a hx of ESRD on dialysis, chronic normocytic anemia, DM-1, bipolar, CHF, IBS and diabetic autonomic gastropathy and diabetic gastroparesis. She was admitted yesterday for nausea/vomiting and was tx for diabetic DKA on arrival (BS 735 yesterday). GI is consulted for the nausea/vomiting. She is seen and examined while resting in bed on a [facility] floor. She is awake, alert, oriented and tells me that she has not had vomiting today but that she has LLQ pain. Seen again later today with Dr. Tolliver while pt is undergoing dialysis. Again - appears well. She most recently underwent EGD(suggestive of candidiasis) and colonoscopy in 2016 with removal of an 8mm polyp with recommendation to repeat in 3-5 yrs. 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 Allergies Allergy/AdvReac Type Severity Reaction Status Date / Time Fish Containing Products Allergy Mild Hives Verified 01/23/21 22:42 latex Allergy Mild hives Verified 01/23/21 22:42 shellfish derived Allergy Mild Hives Verified 01/23/21 22:42 Home Medications Medication Instructions Recorded Confirmed Type aripiprazole 5 mg tablet (Abilify) 5 mg PO HS 05/20/19 01/23/21 History levetiracetam 500 mg tablet 750 mg PO BID 06/20/19 01/23/21 History (Keppra) atorvastatin 40 mg tablet (Lipitor) 40 mg PO HS 08/01/19 01/23/21 History melatonin 3 mg tablet 3 mg PO HS 01/29/20 01/23/21 History hydroxyzine HCl 25 mg tablet 25 mg PO TID PRN 02/20/20 01/23/21 History temazepam 15 mg capsule (Restoril) 15 mg PO HS 02/20/20 01/23/21 History trazodone 150 mg tablet 75 mg PO HS PRN 02/20/20 01/23/21 History trimethobenzamide 300 mg capsule 300 mg PO TID PRN 03/21/20 01/23/21 History benztropine 0.5 mg tablet 0.5 mg PO HS 07/27/20 01/23/21 History ergocalciferol (vitamin D2) 1,250 50,000 unit PO WK 07/27/20 01/23/21 History mcg (50,000 unit) capsule (Vitamin D2) insulin lispro 100 unit/mL 0 unit SUBCUT TIDM 07/27/20 01/23/21 History subcutaneous pen (Admelog SoloStar U-) lamotrigine 25 mg tablet (Lamictal) 50 mg PO HS 07/27/20 01/23/21 History sertraline 50 mg tablet (Zoloft) 75 mg PO HS 07/27/20 01/23/21 History sevelamer carbonate 800 mg tablet 800 mg PO TIDM 07/27/20 01/23/21 History lactulose 10 gram/15 mL oral 10 g PO BID PRN #200 ml 07/31/20 01/23/21 Rx solution buspirone 10 mg tablet 10 mg PO TID 08/16/20 01/23/21 History metoclopramide HCl 5 mg tablet 5 mg PO TID PRN 08/16/20 01/23/21 History pantoprazole 40 mg tablet,delayed 40 mg PO QAM #30 tab 08/21/20 01/23/21 Rx release sucralfate 100 mg/mL oral 10 ml PO BID 30 Days #600 ml 08/21/20 01/23/21 Rx suspension lubiprostone 24 mcg capsule 24 mcg PO BIDM 09/09/20 01/23/21 History L.acidop,casei,lactis,rham-B.lact,tim 2 cap PO QAM 09/25/20 01/23/21 History 625 mg (10 billion cell) capsule (Advanced Probiotic) amlodipine 5 mg tablet (Norvasc) 2.5 mg PO HS #30 tab 10/05/20 01/23/21 Rx polyethylene glycol 3350 17 gram 17 g PO BID #60 ea 10/05/20 01/23/21 Rx oral powder packet (Miralax) insulin glargine 100 unit/mL (3 12 unit SC DAILY 10/17/20 01/23/21 History mL) subcutaneous pen (Lantus Solostar U-100 Insulin) ondansetron HCl 4 mg tablet 4 mg PO Q6H PRN #10 tab 10/25/20 01/23/21 Rx (Zofran) oxycodone 5 mg tablet 5 mg PO Q6 PRN #5 tab 10/25/20 01/23/21 Rx Patient History Medical History Anemia due to chronic kidney disease Arteriovenous fistula for hemodialysis in place, primary Bipolar disorder CKD (chronic kidney disease) stage V requiring chronic dialysis Coronary artery disease "2015 - cardiac catheterization showing nonobstructive coronary disease Stress test 06/2017 - possible small area of ischemia in the anterior wall" CVA (cerebral vascular accident) 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 history of CVA in 2018 Residual R sided weakness Depression Diabetic gastroparesis Diastolic heart failure DM type 1 (diabetes mellitus, type 1) ESRD (end stage renal disease) on dialysis GERD (gastroesophageal reflux disease) History of GI bleed Hyperlipidemia Hypertension Seizure Surgical History Hx of appendectomy Hx of cholecystectomy Hx of tubal ligation Family History Mother Coronary heart disease Hypertension Father Coronary heart disease Social History Smoking Status: Former smoker Tobacco Type: Cigarettes Second Hand Exposure: No; Do You Dip or Chew Tobacco: No; Tobacco Cessation Education Requested by Patient: No Hx Alcohol Use: No Hx Substance Use: No Preferred Language: Cuban Communication Ability: Effective Paver Operator Required: No Beliefs That Will Affect Care: None marital status: Current Living Situation: Significant Other current occupational status: unemployed Other Information That Helps Us Care for You: No Feels Safe at Home: Yes Safety Concerns: Feels Safe At This Time Assistive Devices: Special Shoe Assistive Devices Comment: Right walking boot Review of Systems Review of Systems: ROS: Gen: +weakness, +reports subjective fevers Eyes: No eye redness, or pain, no recent vision changes Resp: + chronic mild cough related to COPD, not recently worsened Cardio: No palpitations/irregular beats, no chest pain GI: + LLQ pain : Denies pain on urination Skin: No jaundice, itching or new rashes Physical Exam Constitutional: WD/WN, vitals as above Eyes: PERRL, conjunctivae normal, anicteric sclerae ENMT: external ear and nose normal, oropharynx normal Neck: trachea midline, no thyromegaly Respiratory: normal respiratory effort, lungs clear to auscultation Cardiovascular: RRR, no murmur, no edema Gastrointestinal (Abdomen): Pt c/o tenderness throughout the abdomen Musculoskeletal: no cyanosis or clubbing, extremities motor strength 5/5 Skin: no rashes, warm and dry Neurologic: PERRL, EOMI, accommodation nl, no face palsy, no dysarthria Psychiatric: A+Ox3, euthymic affect Results & Data ([facility]) Vital Signs (Past 12 Hours) Vital Signs Temp Pulse Pulse Pulse Resp BP BP 01/26/21 13:40 73 156/73 H 01/26/21 13:17 72 181/77 H 01/26/21 13:15 36.4 C L 74 01/26/21 07:29 36.2 C L 71 16 116/61 Pulse Ox 01/26/21 13:40 01/26/21 13:17 01/26/21 13:15 01/26/21 07:29 96 Laboratory Results WBC 5, Hb 10, Hct 30, Plts 251, Na 141, K 3.6, Cl 107, CO2 26, BUN 33, Cr 4, glucose 120. Diagnostic Findings Chest/abd x-ray 01/24: No acute cardiopulmonary process. No evidence for bowel obstruction. Moderate to large amount of well-formed stool seen throughout the colon.
--- NOTE | 2021-01-26 14:03 | Pharmacy Report ---
Pharmacy Glycemic Short Note 2 - Date of Service January 26, 2021 - Glycemic Short BSG Results (Last 24 hours): 01/25/21 01/25/21 01/25/21 15:13 15:15 17:25 Glucose POC Glucose 505 H* 523 H* > 600 H* 01/25/21 01/25/21 01/25/21 17:25 17:40 19:47 Glucose 735 H* POC Glucose > 600 H* > 600 H* 01/25/21 01/25/21 01/25/21 19:48 20:50 20:52 Glucose POC Glucose > 600 H* 511 H* 481 H* 01/25/21 01/25/21 01/25/21 20:53 21:45 22:48 Glucose POC Glucose 490 H* 361 H* 266 H 01/25/21 01/26/21 01/26/21 23:56 00:17 00:32 Glucose POC Glucose 132 H 111 H 108 H 01/26/21 01/26/21 01/26/21 00:49 01:19 01:47 Glucose POC Glucose 103 H 110 H 121 H 01/26/21 01/26/21 01/26/21 02:20 02:52 03:53 Glucose POC Glucose 137 H 163 H 139 H 01/26/21 01/26/21 01/26/21 04:52 05:10 05:11 Glucose POC Glucose 92 66 L* 78 01/26/21 01/26/21 01/26/21 05:28 05:31 05:56 Glucose POC Glucose 63 L* 69 L* 66 L* 01/26/21 01/26/21 01/26/21 05:57 06:17 06:32 Glucose POC Glucose 70 78 120 H 01/26/21 01/26/21 01/26/21 07:06 08:02 08:46 Glucose 152 H POC Glucose 180 H 197 H 01/26/21 01/26/21 01/26/21 09:04 09:34 09:48 Glucose POC Glucose 136 H 131 H 160 H 01/26/21 01/26/21 10:43 12:07 Glucose POC Glucose 118 H 120 H OUTPATIENT ANTIDIABETIC REGIMEN: * Lantus 12 units; Admelog TIDM ASSESSMENT: 01/26/21 * Patient required restarting insulin drip last evening, ran at rates 0- 7units/hr, AM labs good and drip on hold, transition to SQ basal/bolus * Dr Coleman aware of drop in K+ to replete 01/24/21 * Patient with mild DKA was briefly started on insulin infusion overnight, this was discontinued and 5 units of lantus were given * This morning BSGs back in 400s, gap 15, Bicarb 16, discussed with physician starting insulin infusion, will utilize basal/bolus this morning and transition to insulin infusion after dialysis if still needed. On repeat BMP gap 12 and bicarb up to 16. BSG has trended down with subq insulin to 302 mg/dL. PLAN FOR INPATIENT GLYCEMIC CONTROL: * DC insulin drip at 1030 today * Basal insulin * Lantus 12 units SQ Daily, given while on drip, overlapped 3 hours * Bolus insulin * NovoLog per scale ACHS or Q6hrs while NPO * Goal Range: Low 110 mg/dL - High 140 mg/dL * TIGHTEN: Correction Factor: 20 mg/dL/unit * TIGHTEN: Nutritional / Prandial insulin per carb ratio of 1 unit per 7 grams CHO consumed
[2021-01-26] MEDS: HEPARIN SOD (PORCINE) 1000 UNIT/ML IV SCH ×2 (15:04→15:05)
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
[2021-01-26] MEDS: ARIPiprazole 5 MG TAB PO SCH (21:11)
[2021-01-26] MEDS: MELATONIN 3 MG TAB PO SCH (21:11)
[2021-01-26] MEDS: amLODIPine BESYLATE 5 MG TAB PO SCH (21:11)
[2021-01-26] MEDS: BENZTROPINE MESYLATE 0.5 MG TAB PO SCH (21:12)
[2021-01-26] MEDS: ATORVASTATIN 40 MG TAB PO SCH (21:12)
[2021-01-26] MEDS: lamoTRIgine 25 MG TAB PO SCH (21:12)
[2021-01-26] MEDS: SERTRALINE HCL 50 MG TABLET PO SCH (21:12)
[2021-01-26] MEDS: TEMAZEPAM 15 MG CAPSULE PO SCH (21:12)
[2021-01-26] MEDS: traZODone HCL 50 MG TAB PO PRN (21:13)
[2021-01-27] MEDS: HEPARIN SOD 5,000 UNIT/0.5 ML VIAL SQ SCH ×3 (06:25→21:28)
[2021-01-27 06:32] LABS: Basophils # (auto) 0.02 K/uL (0-0.2); Basophils % (auto) 0.5 %; Eosinophils # (auto) 0.24 K/uL (0-0.5); Eosinophils % (auto) 5.5 %; Hematocrit (blood only) 29.4 % (37-47); Hemoglobin 9.5 g/dL (12.0-16.0); Lymphocytes # (auto) 1.82 K/uL (1.2-3.4); Mean Corpuscular Hemoglobin 28.6 pg (25-34); Mean Corpuscular Hgb Conc 32.3 g/dL (32-36); Mean Corpuscular Volume 88.6 fL (80-100); Mean Platelet Volume 10.6 fL (7.4-10.4); Monocytes # (auto) 0.44 K/uL (0.11-0.59); Monocytes % (auto) 10.2 %; Neutrophils # (auto) 1.81 K/uL (1.4-6.5); Neutrophils % (auto) 41.8 %; Platelet Count 238 K/uL (130-400); RDW Coefficient of Variation 16.5 % (11.5-14.5); Red Blood Count 3.32 M/uL (4.2-5.4); White Blood Count 4.33 K/uL (4.8-10.8)
[2021-01-27 07:18] LABS: BUN Creatinine Ratio 5.9 (10-20); Calcium 8.7 mg/dl (8.5-10.1); Creatinine Clr Calc Pharmacy 15.2 ml/min; Est GFR (African American) 17.3 ml/min; Potassium 4.9 mmol/L (3.5-5.1)
[2021-01-27] MEDS: SEVELAMER HCL 800 MG TABLET PO SCH ×3 (08:35→15:48)
[2021-01-27] MEDS: LUBIPROSTONE 8 MCG CAP PO SCH ×2 (08:35→15:48)
[2021-01-27] MEDS: SUCRALFATE 1 GM/10 ML UDC PO SCH ×2 (08:36→21:30)
[2021-01-27] MEDS: busPIRone 5 MG TAB PO SCH ×3 (08:36→21:29)
[2021-01-27] MEDS: ADVANCED PROBIOTIC 1250 MG CAPSULE PO SCH (08:36)
[2021-01-27] MEDS: levETIRAcetam 250 MG TAB PO SCH ×2 (08:36→21:28)
[2021-01-27] MEDS: METOCLOPRAMIDE HCL 5 MG TABLET PO PRN (08:36)
[2021-01-27] MEDS: PANTOprazole 40 MG TAB PO SCH (08:36)
[2021-01-27] MEDS: INSULIN GLARGINE SOLOSTAR 100 UNITS/ML 3 ML PEN SC SCH (08:47)
[2021-01-27] MEDS: INSULIN ASPART 100 UNITS/ML 3 ML PEN SC SCH ×4 (08:49→21:25)
[2021-01-27] MEDS: CEFEPIME 500 MG in SYRINGE 0 ML IV SCH (08:56)
[2021-01-27] MEDS: oxyCODONE HCL IR 5 MG TAB (IMMEDIATE RELEASE) PO PRN ×4 (08:57→21:23)
[2021-01-27] MEDS: POLYETHYLENE (MIRALAX) 17 GM PACK PO SCH ×2 (09:34→21:23)
--- NOTE | 2021-01-27 12:31 | Pharmacy Report ---
Pharmacy Glycemic Short Note 2 - Date of Service January 27, 2021 - Glycemic Short BSG Results (Last 24 hours): 01/26/21 01/26/21 01/27/21 16:44 20:45 05:35 Glucose 368 H* POC Glucose 156 H 72 01/27/21 01/27/21 01/27/21 08:20 08:22 08:23 Glucose POC Glucose 439 H* 430 H* 448 H* 01/27/21 11:45 Glucose POC Glucose 245 H OUTPATIENT ANTIDIABETIC REGIMEN: * Lantus 12 units; Admelog TIDM ASSESSMENT: 01/27/21 * Blood sugars acceptably controlled, 120-156-72, except AM fasting today = 368- 448mg/dl - unknown cause, nursing not sure if patient is being honest that she did not have anything to eat or drink??? * BSG prior to lunch after corrected w/ NovoLog = 245mg/dl * No changes in insulin orders at this time * Add overnight BSG check to see if BSG rising in the middle of the night 01/26/21 * Patient required restarting insulin drip last evening, ran at rates 0- 7units/hr, AM labs good and drip on hold, transition to SQ basal/bolus * Dr Coleman aware of drop in K+ to replete 01/24/21 * Patient with mild DKA was briefly started on insulin infusion overnight, this was discontinued and 5 units of lantus were given * This morning BSGs back in 400s, gap 15, Bicarb 16, discussed with physician starting insulin infusion, will utilize basal/bolus this morning and transition to insulin infusion after dialysis if still needed. On repeat BMP gap 12 and bicarb up to 16. BSG has trended down with subq insulin to 302 mg/dL. PLAN FOR INPATIENT GLYCEMIC CONTROL: * Basal insulin * Lantus 12 units SQ Daily * Bolus insulin * NovoLog per scale ACHS or Q6hrs while NPO and at 0200 tonight * Goal Range: Low 110 mg/dL - High 140 mg/dL * Correction Factor: 20 mg/dL/unit * Nutritional / Prandial insulin per carb ratio of 1 unit per 7 grams CHO consumed
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
[2021-01-27] MEDS: DOCUSATE SODIUM 100 MG CAP PO PRN (21:23)
[2021-01-27] MEDS: MELATONIN 3 MG TAB PO SCH (21:23)
[2021-01-27] MEDS: SERTRALINE HCL 50 MG TABLET PO SCH (21:26)
[2021-01-27] MEDS: ATORVASTATIN 40 MG TAB PO SCH (21:26)
[2021-01-27] MEDS: BENZTROPINE MESYLATE 0.5 MG TAB PO SCH (21:28)
[2021-01-27] MEDS: ARIPiprazole 5 MG TAB PO SCH (21:29)
[2021-01-27] MEDS: amLODIPine BESYLATE 5 MG TAB PO SCH (21:29)
[2021-01-27] MEDS: TEMAZEPAM 15 MG CAPSULE PO SCH (21:35)
[2021-01-27] MEDS: lamoTRIgine 25 MG TAB PO SCH (22:12)
[2021-01-28] MEDS ORDERED: INSULIN ASPART 100 UNITS/ML 3 ML PEN SC ONE (02:00)
[2021-01-28] MEDS: HEPARIN SOD 5,000 UNIT/0.5 ML VIAL SQ SCH ×3 (05:27→21:25)
[2021-01-28 06:05] LABS: Hematocrit (blood only) 32.4 % (37-47); Hemoglobin 10.4 g/dL (12.0-16.0); Mean Corpuscular Hemoglobin 28.2 pg (25-34); Mean Corpuscular Hgb Conc 32.1 g/dL (32-36); Mean Corpuscular Volume 87.8 fL (80-100); Mean Platelet Volume 10.4 fL (7.4-10.4); Platelet Count 252 K/uL (130-400); RDW Coefficient of Variation 16.2 % (11.5-14.5); RDW Standard Deviation 52.4 fL (36.4-46.3); Red Blood Count 3.69 M/uL (4.2-5.4); White Blood Count 4.05 K/uL (4.8-10.8)
[2021-01-28 06:42] LABS: Basophils # (auto) 0.03 K/uL (0-0.2); Basophils % (auto) 0.7 %; Eosinophils # (auto) 0.32 K/uL (0-0.5); Eosinophils % (auto) 7.9 %; Immature Granulocytes # (auto) 0.01 K/uL (0.00-0.02); Immature Granulocytes % (auto) 0.2 %; Lymphocytes # (auto) 2.16 K/uL (1.2-3.4); Lymphocytes % (auto) 53.3 %; Monocytes # (auto) 0.38 K/uL (0.11-0.59); Monocytes % (auto) 9.4 %; Neutrophils # (auto) 1.15 K/uL (1.4-6.5); Neutrophils % (auto) 28.5 %
[2021-01-28 06:51] LABS: BUN Creatinine Ratio 8.3 (10-20); Creatinine Clr Calc Pharmacy 13.2 ml/min; Est GFR (African American) 14.6 ml/min; Est GFR (Non-African American) 12.6 ml/min
[2021-01-28] MEDS ORDERED: SODIUM CHLORIDE 0.9% 1000ML 1,000 ML IV PRN (07:00)
[2021-01-28] MEDS ORDERED: HEPARIN SOD (PORCINE) 1000 UNIT/ML IV SCH (07:00)
[2021-01-28] MEDS ORDERED: EPOETIN ALFA 4,000 UNIT/ML VIAL IV SCH (07:00)
[2021-01-28] MEDS: PANTOprazole 40 MG TAB PO SCH (08:33)
[2021-01-28] MEDS: oxyCODONE HCL IR 5 MG TAB (IMMEDIATE RELEASE) PO PRN ×3 (08:36→17:53)
[2021-01-28] MEDS: LUBIPROSTONE 8 MCG CAP PO SCH ×2 (08:37→17:53)
[2021-01-28] MEDS: busPIRone 5 MG TAB PO SCH ×3 (08:38→20:28)
[2021-01-28] MEDS: METOCLOPRAMIDE HCL 5 MG TABLET PO PRN (08:38)
[2021-01-28] MEDS: ADVANCED PROBIOTIC 1250 MG CAPSULE PO SCH (08:38)
[2021-01-28] MEDS: SEVELAMER HCL 800 MG TABLET PO SCH ×3 (08:39→17:47)
[2021-01-28] MEDS: levETIRAcetam 250 MG TAB PO SCH ×2 (08:39→20:29)
[2021-01-28] MEDS: SUCRALFATE 1 GM/10 ML UDC PO SCH ×2 (08:40→20:34)
[2021-01-28] MEDS: INSULIN GLARGINE SOLOSTAR 100 UNITS/ML 3 ML PEN SC SCH ×2 (08:41→21:19)
[2021-01-28] MEDS: INSULIN ASPART 100 UNITS/ML 3 ML PEN SC SCH ×5 (08:42→23:56)
[2021-01-28] MEDS: HEPARIN SOD (PORCINE) 1000 UNIT/ML IV SCH ×2 (10:41→10:42)
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
[2021-01-28] MEDS: POLYETHYLENE (MIRALAX) 17 GM PACK PO SCH ×2 (12:52→20:33)
--- NOTE | 2021-01-28 14:19 | Pharmacy Report ---
Pharmacy Glycemic Short Note 2 - Date of Service January 28, 2021 - Glycemic Short BSG Results (Last 24 hours): 01/27/21 01/27/21 01/28/21 17:19 20:50 02:04 Glucose POC Glucose 103 H 149 H 197 H 01/28/21 01/28/21 01/28/21 05:39 08:26 12:27 Glucose 134 H POC Glucose 199 H 236 H OUTPATIENT ANTIDIABETIC REGIMEN: * Lantus 12 units; Admelog TIDM ASSESSMENT: 01/28/21 * Fasting blood sugar elevated at 199mg/dl this AM, despite 0200 check and 3 units of Novolog administered at that time. * Will continue 0200 check and add small HS Lantus dose at this time * No further changes needed at this time * HD again today 01/27/21 * Blood sugars acceptably controlled, 120-156-72, except AM fasting today = 368- 448mg/dl - unknown cause, nursing not sure if patient is being honest that she did not have anything to eat or drink??? * BSG prior to lunch after corrected w/ NovoLog = 245mg/dl * No changes in insulin orders at this time * Add overnight BSG check to see if BSG rising in the middle of the night 01/26/21 * Patient required restarting insulin drip last evening, ran at rates 0- 7units/hr, AM labs good and drip on hold, transition to SQ basal/bolus * Dr Coleman aware of drop in K+ to replete 01/24/21 * Patient with mild DKA was briefly started on insulin infusion overnight, this was discontinued and 5 units of lantus were given * This morning BSGs back in 400s, gap 15, Bicarb 16, discussed with physician starting insulin infusion, will utilize basal/bolus this morning and transition to insulin infusion after dialysis if still needed. On repeat BMP gap 12 and bicarb up to 16. BSG has trended down with subq insulin to 302 mg/dL. PLAN FOR INPATIENT GLYCEMIC CONTROL: * Basal insulin * Lantus 12 units SQ QAM + 5 units HS * Bolus insulin * NovoLog per scale ACHS or Q6hrs while NPO and at 0200 tonight * Goal Range: Low 110 mg/dL - High 140 mg/dL * Correction Factor: 20 mg/dL/unit * Nutritional / Prandial insulin per carb ratio of 1 unit per 7 grams CHO consumed
--- NOTE | 2021-01-28 17:32 | Hospitalist Progress Note ---
Date of Service January 28, 2021 Assessment & Plan (1) DKA (diabetic ketoacidosis): Plan: Mild DKA Questionable Medication noncompliance H/O DM Type I Last HbA1C:15 December 2020 Mild Anion gap Acidosis -- resolved -- Pharmacy Glycemic control on board- case discussed -- diet advanced to regular BSGs labile- continue to monitor Possible R foot wound Infection, Cellulitis -- foot xray noted -- Cefepime IV started -- check Nasal MRSA: negative -- no drainage to culture -- Ortho consulted- no surgical intervention ff up with Ortho as outpatient Wound Care Consult -- change to Augmentin H/O Severe gastroparesis --xray: No acute cardiopulmonary process. No evidence for bowel obstruction. Moderate to large amount of well-formed stool seen throughout the colon. -- nausea resolving GI consulted- symptoms likely from DKA recommend outpatient EGD and Colonoscopy Questionable domestic abuse/drug-seeking behavior Recurrent admissions Currently patient denies any spousal abuse Case management consulted Hypertension Elevated BP increased Amlodipine to 5mg po daily PRN Hydralazine improving monitor Chronic diastolic heart failure EF 74%, DSE 2019 Volume status managed through dialysis Dyslipidemia Continue Lipitor Seizure disorder on Keppra ESRD Hemodialysis as per nephrology Appreciate nephrology help Chronic Anemia Hb at baseline Monitor CBC H/O Severe gastroparesis Chronic Nausea, vomiting, abdominal pain Consider GI evaluation if needed On Reglan Mood Disorder Continue home meds DVT Px: Heparin SQ Code Status Full code Admission and Anticipated Discharge Date Admission Date: January 24, 2021 Subjective ff up for DKA, etc seen resting in bed, comfortable significant other at bedside states she feels ok overall minimal abdominal pain tolerating diet well no R foot pain no other symptoms Review of Systems Review of Systems: all noted and negative except for above Physical Exam Physical Exam: General- oriented x 3, not in distress, speaks in sentences with no effort or accessory muscle use Eyes- anicteric Neck- no JVD Lungs- clear BS BL no rales/wheezing Heart- normal rate, regular rhythm; no murmurs Abdomen- normal bowel sounds, nondistended, soft, nontender Extremities- no pretibial edema, no calf tenderness right foot: edema resolved, erythema resolved, wound healing well Neuro- alert, oriented x 3; no gross focal neurologic deficits Skin- warm & dry Results & Data Results & Data ([facility]) Vital Signs (Past 12 Hours) Vital Signs Temp Pulse Pulse Pulse Resp BP BP 01/28/21 16:36 36.5 C 75 16 149/72 H 01/28/21 12:25 36.5 C 73 145/59 H 01/28/21 12:00 71 158/70 H 01/28/21 11:40 73 160/67 H 01/28/21 11:20 72 139/75 01/28/21 11:00 71 153/68 H 01/28/21 10:40 71 159/68 H 01/28/21 10:20 71 155/68 H 01/28/21 10:00 70 168/66 H 01/28/21 09:40 70 169/77 H 01/28/21 09:09 36.5 C 70 01/28/21 07:35 36.7 C 66 16 145/58 H Pulse Ox 01/28/21 16:36 97 01/28/21 12:25 01/28/21 12:00 01/28/21 11:40 01/28/21 11:20 01/28/21 11:00 01/28/21 10:40 01/28/21 10:20 01/28/21 10:00 01/28/21 09:40 01/28/21 09:09 01/28/21 07:35 98 all noted and reviewed including below (1) DKA (diabetic ketoacidosis) Diabetes mellitus complication detail: without coma Diabetes mellitus type: other specified (including BENJI) Qualified Code(s): E13.10 - Other specified diabetes mellitus with ketoacidosis without coma
[2021-01-28] MEDS: AMOXICILLIN/CLAVULANATE 250 MG TAB PO SCH (17:51)
[2021-01-28] MEDS: lisinopril 2.5 MG TAB PO SCH (18:05)
[2021-01-28] MEDS: amLODIPine BESYLATE 5 MG TAB PO SCH (20:24)
[2021-01-28] MEDS: ARIPiprazole 5 MG TAB PO SCH (20:26)
[2021-01-28] MEDS: ATORVASTATIN 40 MG TAB PO SCH (20:27)
[2021-01-28] MEDS: BENZTROPINE MESYLATE 0.5 MG TAB PO SCH (20:28)
[2021-01-28] MEDS: lamoTRIgine 25 MG TAB PO SCH (20:29)
[2021-01-28] MEDS: SERTRALINE HCL 50 MG TABLET PO SCH (20:31)
[2021-01-28] MEDS: traZODone HCL 50 MG TAB PO PRN (20:47)
[2021-01-28] MEDS: MELATONIN 3 MG TAB PO SCH (20:47)
[2021-01-28] MEDS: TEMAZEPAM 15 MG CAPSULE PO SCH (20:47)
[2021-01-28] MEDS ORDERED: INSULIN HUMAN REGULAR PER UNIT 5 UNITS in SYRINGE 4.95 ML IV ONE (21:15)
[2021-01-29] MEDS: oxyCODONE HCL IR 5 MG TAB (IMMEDIATE RELEASE) PO PRN ×5 (00:08→20:06)
[2021-01-29] MEDS ORDERED: INSULIN ASPART 100 UNITS/ML 3 ML PEN SC ONE (02:00)
[2021-01-29] MEDS: INSULIN ASPART 100 UNITS/ML 3 ML PEN SC SCH ×5 (04:11→21:03)
[2021-01-29] MEDS: HEPARIN SOD 5,000 UNIT/0.5 ML VIAL SQ SCH ×3 (06:02→21:00)
[2021-01-29 07:40] LABS: BUN Creatinine Ratio 9.1 (10-20); Calcium 9.2 mg/dl (8.5-10.1); Creatinine Clr Calc Pharmacy 15.7 ml/min; Est GFR (African American) 18.6 ml/min; Potassium 4.5 mmol/L (3.5-5.1)
[2021-01-29] MEDS: PANTOprazole 40 MG TAB PO SCH (07:57)
[2021-01-29] MEDS: SUCRALFATE 1 GM/10 ML UDC PO SCH ×2 (08:59→21:00)
[2021-01-29] MEDS ORDERED: ERGOCALCIFEROL 50,000 UNITS 1250 MCG CAP PO SCH (09:00)
[2021-01-29] MEDS: busPIRone 5 MG TAB PO SCH ×3 (09:01→21:01)
[2021-01-29] MEDS: POLYETHYLENE (MIRALAX) 17 GM PACK PO SCH ×2 (09:01→21:04)
[2021-01-29] MEDS: AMOXICILLIN/CLAVULANATE 250 MG TAB PO SCH ×2 (09:02→17:35)
[2021-01-29] MEDS: ADVANCED PROBIOTIC 1250 MG CAPSULE PO SCH (09:02)
[2021-01-29] MEDS: SEVELAMER HCL 800 MG TABLET PO SCH ×3 (09:02→17:35)
[2021-01-29] MEDS: LUBIPROSTONE 8 MCG CAP PO SCH ×2 (09:03→17:34)
[2021-01-29] MEDS: levETIRAcetam 250 MG TAB PO SCH ×2 (09:04→21:00)
[2021-01-29] MEDS: INSULIN GLARGINE SOLOSTAR 100 UNITS/ML 3 ML PEN SC SCH ×2 (09:04→21:03)
[2021-01-29] MEDS: lisinopril 2.5 MG TAB PO SCH (09:07)
--- NOTE | 2021-01-29 11:08 | CT Scan Report ---
CT SCAN OF THE ABDOMEN AND PELVIS WITHOUT IV CONTRAST CLINICAL HISTORY: Left lower quadrant abdominal pain. COMPARISON STUDY: Abdominal CT dated 10/25/2020. Abdominal radiographs dated 01/23/2021. TECHNIQUE: CT scan of the abdomen and pelvis is performed from the lung bases to the proximal femora. Images are reviewed in the axial, sagittal, and coronal planes. IV contrast was not administered for this examination. Note that the examination was performed in suboptimal fashion without oral and IV contrast. A dose lowering technique was utilized adhering to the principles of ALARA. CT DOSE: 274.64 mGy.cm FINDINGS: Lung bases: The heart is top normal in size and without pericardial effusion. The lung bases are frederick r. There is a tiny hiatal hernia. Liver: The unenhanced liver is normal in size, contour, and attenuation. There is mild intrahepatic b iliary ductal dilatation. Gallbladder: Surgically absent noting clips in the gallbladder fossa. Spleen: Normal in size and attenuation. Pancreas: The unenhanced pancreas is grossly unremarkable. Adrenal glands: Unremarkable. Kidneys: The unenhanced kidneys are normal in size and without hydronephrosis. No renal calculi are c learly identified. There are numerous renovascular calcifications. There is no evidence of contour de forming renal mass lesion. Abdominal vasculature: The abdominal aorta is normal in course and caliber noting moderate atheroscle rotic calcification. Bowel: There is moderate constipation. No bowel obstruction is seen. Question circumferential wall th ickening of the rectum. No significant joint inflammation is identified. The appendix is not identif ied and reported surgically absent. Peritoneum: There is no intraperitoneal free air or abdominal ascites. There is a small fat-containin g umbilical hernia. Lymphadenopathy: Prominent retroperitoneal and iliac chain lymph nodes measure up to 9 mm in short ax is. Pelvic viscera: The bladder is distended but otherwise normal in appearance. The uterus and adnexa ar e normal as visualized noting an acute or device in place. Skeletal structures: No lytic or blastic lesions are seen. IMPRESSION: 1. Moderate constipation. No bowel obstruction is identified. 2. Question circumferential wall thickening of the rectum. Correlate clinically for evidence of proct itis. 3. Prominent retroperitoneal lymph nodes are indeterminant and unchanged from previous. 4. Additional findings as above. ACT 112: Negative or not required by law. Electronically signed by: Davy Willson M.D. 01/29/2021 11:06 AM
--- NOTE | 2021-01-29 13:22 | Pharmacy Report ---
Pharmacy Glycemic Short Note 2 - Date of Service January 29, 2021 - Glycemic Short BSG Results (Last 24 hours): 01/28/21 01/28/21 01/28/21 17:16 17:17 17:17 Glucose POC Glucose 318 H* 313 H* 317 H* 01/28/21 01/28/21 01/28/21 20:26 20:28 23:51 Glucose POC Glucose 406 H* 399 H* 203 H 01/29/21 01/29/21 01/29/21 04:07 06:37 08:12 Glucose 154 H POC Glucose 141 H 171 H 01/29/21 01/29/21 01/29/21 11:48 11:49 11:50 Glucose POC Glucose 391 H* 377 H* 368 H* OUTPATIENT ANTIDIABETIC REGIMEN: * Lantus 12 units; Admelog TIDM ASSESSMENT: 01/29 * BSGs remain labile- sustained hyperglycemia over the past 24hrs. * Pt denied eating any CHO between meals without coverage * Will continue with BID Lantus dosing - increase conservatively since patient tends to bottom out quickly * Tighten CHO coverage as post-prandial BSGs elevated 01/28/21 * Fasting blood sugar elevated at 199mg/dl this AM, despite 0200 check and 3 units of Novolog administered at that time. * Will continue 0200 check and add small HS Lantus dose at this time * No further changes needed at this time * HD again today 01/27/21 * Blood sugars acceptably controlled, 120-156-72, except AM fasting today = 368- 448mg/dl - unknown cause, nursing not sure if patient is being honest that she did not have anything to eat or drink??? * BSG prior to lunch after corrected w/ NovoLog = 245mg/dl * No changes in insulin orders at this time * Add overnight BSG check to see if BSG rising in the middle of the night 01/26/21 * Patient required restarting insulin drip last evening, ran at rates 0- 7units/hr, AM labs good and drip on hold, transition to SQ basal/bolus * Dr Coleman aware of drop in K+ to replete 01/24/21 * Patient with mild DKA was briefly started on insulin infusion overnight, this was discontinued and 5 units of lantus were given * This morning BSGs back in 400s, gap 15, Bicarb 16, discussed with physician starting insulin infusion, will utilize basal/bolus this morning and transition to insulin infusion after dialysis if still needed. On repeat BMP gap 12 and bicarb up to 16. BSG has trended down with subq insulin to 302 mg/dL. PLAN FOR INPATIENT GLYCEMIC CONTROL: * Basal insulin * Lantus 12 units SQ QAM + 6 units HS * Bolus insulin * NovoLog per scale ACHS or Q6hrs while NPO * Goal Range: Low 110 mg/dL - High 140 mg/dL * Correction Factor: 20 mg/dL/unit * Nutritional / Prandial insulin per carb ratio of 1 unit per 6 grams CHO consumed
--- NOTE | 2021-01-29 13:35 | Hospitalist Progress Note ---
Date of Service January 29, 2021 Assessment & Plan (1) DKA (diabetic ketoacidosis): Plan: Mild DKA Questionable Medication noncompliance H/O DM Type I Last HbA1C:15 December 2020 Mild Anion gap Acidosis -- resolved -- Pharmacy Glycemic control on board- case discussed -- diet advanced to regular BSGs labile- requires insulin drip during admission -- discussed with Pharmacy SVC recommend to continue with usual home Insulin regimen as patient in on HD, DM 1, blood glucose labile Possible R foot wound Infection, Cellulitis -- foot xray noted -- Cefepime IV started -- check Nasal MRSA: negative -- no drainage to culture -- Ortho consulted- no surgical intervention ff up with Ortho as outpatient Wound Care Consult -- change to Augmentin- will need 4 more days to complete 10 day course H/O Severe gastroparesis --xray: No acute cardiopulmonary process. No evidence for bowel obstruction. Moderate to large amount of well-formed stool seen throughout the colon. -- nausea resolving GI consulted- symptoms likely from DKA recommend outpatient EGD and Colonoscopy -- constipation contributing recommend to increase Miralax 2 capfulds BID Questionable domestic abuse/drug-seeking behavior Recurrent admissions Currently patient denies any spousal abuse Case management consulted Hypertension Elevated BP increased Amlodipine to 5mg po daily PRN Hydralazine improving monitor Chronic diastolic heart failure EF 74%, DSE 2019 Volume status managed through dialysis Dyslipidemia Continue Lipitor Seizure disorder on Keppra ESRD Hemodialysis as per nephrology Appreciate nephrology help Chronic Anemia Hb at baseline Monitor CBC H/O Severe gastroparesis Chronic Nausea, vomiting, abdominal pain Consider GI evaluation if needed On Reglan Mood Disorder Continue home meds DVT Px: Heparin SQ Code Status Full code discharge to home ff up with PCP in 1 week plan of care discussed with patient in detail and at length all questions answered she is understanding, agreeable, comfortable with the plan of care Admission and Anticipated Discharge Date Admission Date: January 24, 2021 Subjective ff up for DKA, etc seen resting in bed, comfortable in good spirits states she feels better today abdominal pain is much better no nausea tolerating diet well no fever/chills no foot pain no other symptoms states she is ready and would like to be discharged today Review of Systems Review of Systems: all noted and negative except for above Physical Exam Physical Exam: General- oriented x 3, not in distress, speaks in sentences with no effort or accessory muscle use Eyes- anicteric Neck- no JVD Lungs- clear BS BL Heart- normal rate, regular rhythm; no murmurs Abdomen- normal bowel sounds, nondistended, soft, nontender Extremities- no pretibial edema, no calf tenderness R foot: wound healing well, edema, erythema, tenderness resolved Neuro- alert, oriented x 3; no gross focal neurologic deficits Skin- warm & dry Results & Data Results & Data ([facility]) Vital Signs (Past 12 Hours) Vital Signs Temp Pulse Resp BP Pulse Ox 01/29/21 08:02 36.7 C 68 16 127/58 L 96 (1) DKA (diabetic ketoacidosis) Diabetes mellitus complication detail: without coma Diabetes mellitus type: other specified (including BENJI) Qualified Code(s): E13.10 - Other specified diabetes mellitus with ketoacidosis without coma
[2021-01-29] MEDS ORDERED: INSULIN HUMAN REGULAR IV BOLUS 5 UNITS in SYRINGE 0 ML IV ONE (17:30)
[2021-01-29] MEDS: MELATONIN 3 MG TAB PO SCH (21:00)
[2021-01-29] MEDS: TEMAZEPAM 15 MG CAPSULE PO SCH (21:00)
[2021-01-29] MEDS: BENZTROPINE MESYLATE 0.5 MG TAB PO SCH (21:01)
[2021-01-29] MEDS: SERTRALINE HCL 50 MG TABLET PO SCH (21:01)
[2021-01-29] MEDS: amLODIPine BESYLATE 5 MG TAB PO SCH (21:02)
[2021-01-29] MEDS: lamoTRIgine 25 MG TAB PO SCH (21:02)
[2021-01-29] MEDS: ARIPiprazole 5 MG TAB PO SCH (21:02)
[2021-01-29] MEDS: ATORVASTATIN 40 MG TAB PO SCH (21:03)
[2021-01-30] MEDS: HEPARIN SOD 5,000 UNIT/0.5 ML VIAL SQ SCH ×2 (05:57→13:22)
[2021-01-30] MEDS: oxyCODONE HCL IR 5 MG TAB (IMMEDIATE RELEASE) PO PRN ×2 (06:01→13:20)
[2021-01-30 07:24] LABS: BUN Creatinine Ratio 9.2 (10-20); Calcium 9.2 mg/dl (8.5-10.1); Creatinine Clr Calc Pharmacy 11.8 ml/min; Est GFR (African American) 13.1 ml/min; Est GFR (Non-African American) 11.3 ml/min; Potassium 4.8 mmol/L (3.5-5.1)
[2021-01-30] MEDS: ACETAMINOPHEN 325 MG TAB PO PRN (08:14)
[2021-01-30] MEDS: PANTOprazole 40 MG TAB PO SCH (08:50)
[2021-01-30] MEDS: SEVELAMER HCL 800 MG TABLET PO SCH ×2 (08:50→13:13)
[2021-01-30] MEDS: ADVANCED PROBIOTIC 1250 MG CAPSULE PO SCH (08:51)
[2021-01-30] MEDS: busPIRone 5 MG TAB PO SCH ×2 (08:51→13:21)
[2021-01-30] MEDS: POLYETHYLENE (MIRALAX) 17 GM PACK PO SCH ×2 (08:52→09:09)
[2021-01-30] MEDS: SUCRALFATE 1 GM/10 ML UDC PO SCH (08:52)
[2021-01-30] MEDS: levETIRAcetam 250 MG TAB PO SCH (08:52)
[2021-01-30] MEDS: AMOXICILLIN/CLAVULANATE 250 MG TAB PO SCH (08:53)
[2021-01-30] MEDS: LUBIPROSTONE 8 MCG CAP PO SCH (08:53)
[2021-01-30] MEDS: INSULIN GLARGINE SOLOSTAR 100 UNITS/ML 3 ML PEN SC SCH (08:58)
[2021-01-30] MEDS: INSULIN ASPART 100 UNITS/ML 3 ML PEN SC SCH ×2 (09:01→13:12)
--- NOTE | 2021-01-30 09:55 | Gastroenterology Progress Note ---
Date of Service January 30, 2021 Assessment & Plan (1) Abdominal pain: Plan: 50 year old female with chronic abd pain, nausea/vomiting, CT yesterday w/ constipation, ? proctitis she is due for OP EGD/Colonoscopy and GES. she notes lower abd pain, pressure associated with constipation, last BM yesterday, small per pt, hard to pass w/ straining. Continue Amitiza twice daily Would increase Miralax 2 capfuls twice daily for 48 hours Then resume Miralax 1 capful twice daily Would continue with plan for OP EGD/Colon and GES at [facility]. Admission and Anticipated Discharge Date Admission Date: January 24, 2021 Supervising Physician Co-Signing Physician Notes Late entry: Patient was seen and examined on 01/30 AMERICA Maldonado whose note reflects our findings and plan. Patient seen earlier in hosp for nausea and vomiting and gastroparesis symptoms. Now asked to see patient again for abd discomfort and imaging s/o constipation., BOwel regiumen reviewed with patient and outlined above. Abd soft on exam, no rebound or guarding. VSS. Outpatient endoscopic evaluation to be arranged once constipation is better controlled. Subjective GI asked to re-evaluate given persistent symptoms. She notes resolution of nausea/vomiting but has persistent lower abd pain/pressure and constipation with straining. EGD(suggestive of candidiasis) and colonoscopy in 2016 with removal of an 8mm polyp with recommendation to repeat in 3-5 yrs. 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 CTAP 2020: Moderate constipation. No bowel obstruction is identified. Question circumferential wall thickening of the rectum. Correlate clinically for evidence of proctitis. Prominent retroperitoneal lymph nodes are indeterminant and unchanged from previous. Review of Systems Review of Systems: All systems reviewed & are unremarkable except as noted in HPI & below Physical Exam Respiratory: normal respiratory effort, lungs clear to auscultation Cardiovascular: RRR, no murmur, no edema Gastrointestinal (Abdomen): Inspection/Auscultation: abdomen normal to inspection, + abdomen distended and normal bowel sounds Percussion/Palpation: + abdomen tender and abdomen soft; no guarding, abdomen not rigid, no hernia, no abdominal mass and no ascites Skin: no rashes, warm and dry Results & Data ([facility]) Vital Signs (Past 12 Hours) Vital Signs Temp Pulse Resp BP Pulse Ox 01/30/21 08:18 36.5 C 71 18 146/73 H 98 01/29/21 22:27 36.7 C 72 15 112/57 L 99 Laboratory Results 01/30/21 01/30/21 01/29/21 Range/Units 08:16 06:19 20:39 Sodium 140 (136-145) mmol/L Potassium 4.8 (3.5-5.1) mmol/L Chloride 105 (98-107) mmol/L Carbon Dioxide 29 (21-32) mmol/L Anion Gap 6.0 (3-11) BUN 39 H (7-18) mg/dl Creatinine 4.24 H D (0.6-1.2) mg/dl Est Cr Clr Drug Dosing 11.8 ml/min Est GFR ( Amer) 13.1 ml/min Est GFR (Non-Af Amer) 11.3 ml/min BUN/Creatinine Ratio 9.2 L (10-20) Glucose 125 H (70-99) mg/dl POC Glucose 150 H 292 H (70-99) mg/dl Calcium 9.2 (8.5-10.1) mg/dl 01/29/21 01/29/21 01/29/21 Range/Units 17:04 17:03 17:03 Sodium (136-145) mmol/L Potassium (3.5-5.1) mmol/L Chloride (98-107) mmol/L Carbon Dioxide (21-32) mmol/L Anion Gap (3-11) BUN (7-18) mg/dl Creatinine (0.6-1.2) mg/dl Est Cr Clr Drug Dosing ml/min Est GFR ( Amer) ml/min Est GFR (Non-Af Amer) ml/min BUN/Creatinine Ratio (10-20) Glucose (70-99) mg/dl POC Glucose 419 H* 424 H* 407 H* (70-99) mg/dl Calcium (8.5-10.1) mg/dl 01/29/21 01/29/21 01/29/21 Range/Units 11:50 11:49 11:48 Sodium (136-145) mmol/L Potassium (3.5-5.1) mmol/L Chloride (98-107) mmol/L Carbon Dioxide (21-32) mmol/L Anion Gap (3-11) BUN (7-18) mg/dl Creatinine (0.6-1.2) mg/dl Est Cr Clr Drug Dosing ml/min Est GFR ( Amer) ml/min Est GFR (Non-Af Amer) ml/min BUN/Creatinine Ratio (10-20) Glucose (70-99) mg/dl POC Glucose 368 H* 377 H* 391 H* (70-99) mg/dl Calcium (8.5-10.1) mg/dl
--- NOTE | 2021-01-30 10:26 | Nephrology Progress Note ---
Date of Service January 30, 2021 Assessment & Plan (1) CKD (chronic kidney disease) stage V requiring chronic dialysis: Plan: Patient is on dialysis Saturday. No need for dialysis today. For dialysis tomorrow> 3 hr using AVF on 2 K bath w/ 1.5L. her chemistries and volume status are acceptable. (2) DKA (diabetic ketoacidosis): Plan: Blood sugars improving on insulin per primary team. (3) Abdominal pain: Plan: Patient with chronic gastroparesis. Continue conservative management for nausea and vomiting. Admission and Anticipated Discharge Date Admission Date: January 24, 2021 Subjective Patient seen in follow-up for ESRD. No shortness of breath. No vomiting. Patient complaining of abdominal pain. Review of Systems Review of Systems: All other systems were reviewed and negative except as noted in HPI Physical Exam Physical Exam: General exam: Appears comfortable, no acute distress HEENT: Pupils are equal and reactive to light Neck: No JVD, neck is supple trachea is midline Respiratory system: Clear breath sounds bilaterally. Gastrointestinal: Abdomen is soft, non distended, mildly tender, bowel sounds are present CVS: Regular rate and rhythm. No murmurs, rubs or gallops Musculoskeletal: No joint or muscle tenderness Extremities: Non tender, no edema, peripheral pulses are present Neuro: Oriented, no tremors, no focal neurological deficits Skin: No rashes Results & Data ([facility]) Vital Signs (Past 12 Hours) Vital Signs Temp Pulse Resp BP Pulse Ox 01/30/21 08:18 36.5 C 71 18 146/73 H 98 01/29/21 22:27 36.7 C 72 15 112/57 L 99 Laboratory Results 01/30/21 06:19 (1) DKA (diabetic ketoacidosis) Diabetes mellitus complication detail: without coma Diabetes mellitus type: other specified (including BENJI) Qualified Code(s): E13.10 - Other specified diabetes mellitus with ketoacidosis without coma
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
--- NOTE | 2021-02-09 13:14 | Coding Query ---
CODING QUERY To promote full compliance with coding requirements relating to patient care, provider participation is requested in all cases of society reporter uncertainty. Please assist us with the question(s) below: Coding Question(s): Progress note documentation on 01/26 states Possible R foot wound Infection. "Ortho consulted-no infection, d/c antibiotics" is also documented. Per 01/27 progress note and after, documentation states Possible R foot wound Infection, Cellulitis, Change to Cefdinir. Please clarify below: (X ) Patient with Cellulitis ( ) Cellulitis Ruled Out ( ) Other Please Explain: Thank you Viet Mosquera Principal Diagnosis: "that condition established after study, to be chiefly responsible for occasioning the admission of the patient to the hospital for care." Co-Existing Principal Diagnosis: "when two or more diagnoses equally meet the criteria for principal diagnosis as determined by the circumstances of admission, diagnostic work up, and/or therapy provided, and the Alphabetic Index, Tabular List, or another coding guideline does not provide sequencing direction, any one of the diagnoses may be sequenced first." "When the physician has documented what appears to be a current diagnosis in the body of the record, but has not included the diagnosis in the final diagnostic statement, the physician should be asked whether the diagnosis should be added." (Source [facility] 2 QTR90. p3-4) ROBERT
== END 2021-01-30 17:31 | disposition home or self-care (01) | DRG 637 ==
LOC: ED 17:37 → SUATTDRO 01-24 01:52 → 3W 01-24 01:52
DX: Z99.2 Dependence on renal dialysis; Z79.899 Other long term (current) drug therapy; I69.351 Hemiplegia and hemiparesis following cerebral infarction affecting right dominant side; F31.9 Bipolar disorder, unspecified; J44.9 Chronic obstructive pulmonary disease, unspecified; Z76.5 Malingerer [conscious simulation]; K59.00 Constipation, unspecified; Z90.49 Acquired absence of other specified parts of digestive tract; Z91.419 Personal history of unspecified adult abuse; L03.115 Cellulitis of right lower limb; Z91.040 Latex allergy status; I25.10 Atherosclerotic heart disease of native coronary artery without angina pectoris; Z91.14 Patient's other noncompliance with medication regimen; I12.0 Hypertensive chronic kidney disease with stage 5 chronic kidney disease or end stage renal disease; Z91.013 Allergy to seafood; S91.301A Unspecified open wound, right foot, initial encounter; Z87.891 Personal history of nicotine dependence; E10.43 Type 1 diabetes mellitus with diabetic autonomic (poly)neuropathy; E10.10 Type 1 diabetes mellitus with ketoacidosis without coma; K21.9 Gastro-esophageal reflux disease without esophagitis; E78.5 Hyperlipidemia, unspecified; Z79.4 Long term (current) use of insulin; D63.1 Anemia in chronic kidney disease; N18.6 End stage renal disease; X58.XXXA Exposure to other specified factors, initial encounter; G40.909 Epilepsy, unspecified, not intractable, without status epilepticus; E10.22 Type 1 diabetes mellitus with diabetic chronic kidney disease